=== PATIENT | female | born 1940 | race Caucasian/White ===

== ENCOUNTER 2021-05-26 03:06 | Outpatient (RCR) | payer MEDICARE, SELFPAY ==
[2021-05-26] MEDS: Normal Saline Flush 10 ML SYR IVP (10:17)
[2021-05-26 11:17] LABS: Abs Immature Grans 0.03 10^3/uL (0.0-0.06); Absolute Basophil Count 0.09 10^3/uL (0.0-0.2); Absolute Eosinophil Count 0.17 10^3/uL (0.0-0.7); Absolute Lymphocyte Count 2.17 10^3/uL (1.2-3.4); Absolute Monocyte Count 0.93 10^3/uL (0.1-0.8); Absolute Neutrophil Count 4.77 10^3/uL (1.2-6.7); Basophils % 1.1; Eosinophils % 2.1; HCT 43.6 % (36.0-46.0); HGB 13.9 g/dL (11.2-15.7); Immature Grans % 0.4; Lymphocytes % 26.6; MCH 31.2 pg (27.0-33.0); MCHC 31.9 % (32.0-36.0); MPV 9.9 fL (8.0-11.0); Monocytes % 11.4; Neutrophils % 58.4; Nucleated RBC 0 %; Platelet Count 341 10^3/uL (130-400); RBC 4.45 10^6/uL (3.93-5.22); RDW 12.7 % (11.7-14.6); RDW-SD 45.7 fL; WBC 8.16 10^3/uL (4.4-10.8)
[2021-05-26 11:39] LABS: ALT 35 U/L (14-59); AST 23 U/L (15-37); Albumin 3.3 g/dL (3.4-5.0); Alkaline Phosphatase 122 U/L (46-116); Anion Gap 8.8 mmol/L (3-11); BUN 13 mg/dL (7-18); Bilirubin, Total 0.4 mg/dL (0.2-1.0); CO2 27.2 mmol/L (21.0-32.0); CREATININE 0.9 mg/dL (0.55-1.02); Calcium 9.1 mg/dL (8.5-10.1); Chloride 103 mmol/L (98-107); Glucose 143 mg/dL (74-106); Sodium 139 mmol/L (136-145); Total Protein 7.6 g/dL (6.4-8.2)
[2021-05-26 17:30] LABS: CEA 3.1 ng/mL (See Note)
== END 2021-06-01 23:59 | disposition home or self-care (01) ==
LOC: INF 03:06
PROVIDERS: Visit Provider Internal Medicine Hematology & Oncology
DX: C18.9 Malignant neoplasm of colon, unspecified (principal); Z45.2 Encounter for adjustment and management of vascular access device
CPT/HCPCS: 36591; 80053; 82378; 85025

== ENCOUNTER 2021-06-26 02:53 | Outpatient (RCR) | payer MEDICARE, SELFPAY ==
[2021-06-12] MEDS: Normal Saline Flush 10 ML SYR IVP (08:12)
[2021-06-12 08:35] LABS: Abs Immature Grans 0.01 10^3/uL (0.0-0.06); Absolute Basophil Count 0.06 10^3/uL (0.0-0.2); Absolute Eosinophil Count 0.18 10^3/uL (0.0-0.7); Absolute Lymphocyte Count 1.22 10^3/uL (1.2-3.4); Absolute Monocyte Count 0.81 10^3/uL (0.1-0.8); Absolute Neutrophil Count 1.97 10^3/uL (1.2-6.7); Basophils % 1.4; Eosinophils % 4.2; HCT 40.8 % (36.0-46.0); HGB 13.1 g/dL (11.2-15.7); Immature Grans % 0.2; Lymphocytes % 28.7; MCH 30.7 pg (27.0-33.0); MCHC 32.1 % (32.0-36.0); MCV 95.6 fL (80-95); MPV 9.7 fL (8.0-11.0); Monocytes % 19.1; Neutrophils % 46.4; Nucleated RBC 0 %; Platelet Count 221 10^3/uL (130-400); RBC 4.27 10^6/uL (3.93-5.22); RDW 13.4 % (11.7-14.6); RDW-SD 46.2 fL; WBC 4.25 10^3/uL (4.4-10.8)
[2021-06-12 08:49] LABS: ALT 32 U/L (14-59); AST 28 U/L (15-37); Alkaline Phosphatase 94 U/L (46-116); Anion Gap 6.2 mmol/L (3-11); BUN 11 mg/dL (7-18); Bilirubin, Total 0.5 mg/dL (0.2-1.0); CO2 29.8 mmol/L (21.0-32.0); CREATININE 0.9 mg/dL (0.55-1.02); Calcium 9.1 mg/dL (8.5-10.1); Chloride 105 mmol/L (98-107); Glucose 109 mg/dL (74-106); Sodium 141 mmol/L (136-145)
[2021-06-12 18:24] LABS: CEA 3.8 ng/mL (See Note)
[2021-06-26] MEDS: Normal Saline Flush 10 ML SYR IVP (08:57)
[2021-06-26 09:01] LABS: Abs Immature Grans 0.01 10^3/uL (0.0-0.06); Absolute Basophil Count 0.03 10^3/uL (0.0-0.2); Absolute Eosinophil Count 0.12 10^3/uL (0.0-0.7); Absolute Lymphocyte Count 0.79 10^3/uL (1.2-3.4); Absolute Monocyte Count 0.61 10^3/uL (0.1-0.8); Absolute Neutrophil Count 2.27 10^3/uL (1.2-6.7); Basophils % 0.8; Eosinophils % 3.1; HCT 37.5 % (36.0-46.0); HGB 12.2 g/dL (11.2-15.7); Immature Grans % 0.3; Lymphocytes % 20.6; MCH 31.6 pg (27.0-33.0); MCHC 32.5 % (32.0-36.0); MCV 97.2 fL (80-95); MPV 9.1 fL (8.0-11.0); Monocytes % 15.9; Neutrophils % 59.3; Nucleated RBC 0 %; Platelet Count 119 10^3/uL (130-400); RBC 3.86 10^6/uL (3.93-5.22); RDW 14.4 % (11.7-14.6); RDW-SD 48.5 fL; WBC 3.83 10^3/uL (4.4-10.8)
[2021-06-26 09:27] LABS: ALT 40 U/L (14-59); AST 33 U/L (15-37); Albumin 2.8 g/dL (3.4-5.0); Alkaline Phosphatase 90 U/L (46-116); Anion Gap 6.5 mmol/L (3-11); BUN 17 mg/dL (7-18); Bilirubin, Total 0.4 mg/dL (0.2-1.0); CO2 26.5 mmol/L (21.0-32.0); CREATININE 0.8 mg/dL (0.55-1.02); Calcium 8.8 mg/dL (8.5-10.1); Chloride 110 mmol/L (98-107); Glucose 120 mg/dL (74-106); Potassium 3.5 mmol/L (3.5-5.1); Sodium 143 mmol/L (136-145); Total Protein 6.5 g/dL (6.4-8.2)
[2021-06-26 21:08] LABS: CEA 8.2 ng/mL (See Note)
== END 2021-07-02 23:59 | disposition home or self-care (01) ==
LOC: INF 02:53
PROVIDERS: Visit Provider Internal Medicine Hematology & Oncology
DX: C18.9 Malignant neoplasm of colon, unspecified (principal); Z45.2 Encounter for adjustment and management of vascular access device
CPT/HCPCS: 36591; 80053; 82378; 85025

== ENCOUNTER 2021-07-24 00:50 | Outpatient (RCR) | payer MEDICARE, SELFPAY ==
[2021-07-10] MEDS: Normal Saline Flush 10 ML SYR IVP (08:57)
[2021-07-10 09:09] LABS: Abs Immature Grans 0.01 10^3/uL (0.0-0.06); Absolute Basophil Count 0.03 10^3/uL (0.0-0.2); Absolute Eosinophil Count 0.13 10^3/uL (0.0-0.7); Absolute Lymphocyte Count 1.08 10^3/uL (1.2-3.4); Absolute Monocyte Count 0.54 10^3/uL (0.1-0.8); Eosinophils % 4.5; HCT 35.7 % (36.0-46.0); HGB 11.5 g/dL (11.2-15.7); Immature Grans % 0.3; Lymphocytes % 37.4; MCH 31.4 pg (27.0-33.0); MCHC 32.2 % (32.0-36.0); MCV 97.5 fL (80-95); MPV 9.2 fL (8.0-11.0); Monocytes % 18.7; Neutrophils % 38.1; Nucleated RBC 0 %; Platelet Count 106 10^3/uL (130-400); RBC 3.66 10^6/uL (3.93-5.22); RDW 15.7 % (11.7-14.6); RDW-SD 52.6 fL; WBC 2.89 10^3/uL (4.4-10.8)
[2021-07-10 09:24] LABS: ALT 36 U/L (14-59); AST 32 U/L (15-37); Albumin 2.9 g/dL (3.4-5.0); Alkaline Phosphatase 92 U/L (46-116); Anion Gap 4.4 mmol/L (3-11); BUN 12 mg/dL (7-18); Bilirubin, Total 0.5 mg/dL (0.2-1.0); CO2 28.6 mmol/L (21.0-32.0); CREATININE 0.8 mg/dL (0.55-1.02); Calcium 8.9 mg/dL (8.5-10.1); Chloride 108 mmol/L (98-107); Glucose 116 mg/dL (74-106); Potassium 3.7 mmol/L (3.5-5.1); Sodium 141 mmol/L (136-145); Total Protein 6.5 g/dL (6.4-8.2)
[2021-07-10 18:36] LABS: CEA 6.7 ng/mL (See Note)
[2021-07-16] MEDS: Normal Saline Flush 10 ML SYR IVP (09:50)
[2021-07-16 10:29] LABS: Abs Immature Grans 0.03 10^3/uL (0.0-0.06); Absolute Basophil Count 0.08 10^3/uL (0.0-0.2); Absolute Eosinophil Count 0.32 10^3/uL (0.0-0.7); Absolute Lymphocyte Count 1.61 10^3/uL (1.2-3.4); Absolute Monocyte Count 1.09 10^3/uL (0.1-0.8); Absolute Neutrophil Count 0.83 10^3/uL (1.2-6.7); Eosinophils % 8.1; HCT 38.8 % (36.0-46.0); HGB 12.4 g/dL (11.2-15.7); Immature Grans % 0.8; Lymphocytes % 40.7; MCH 31.6 pg (27.0-33.0); MCV 98.7 fL (80-95); MPV 9.6 fL (8.0-11.0); Monocytes % 27.5; Neutrophils % 20.9; Nucleated RBC 0 %; Platelet Count 286 10^3/uL (130-400); RBC 3.93 10^6/uL (3.93-5.22); RDW 16.6 % (11.7-14.6); RDW-SD 59.7 fL; WBC 3.96 10^3/uL (4.4-10.8)
[2021-07-16 10:46] LABS: ALT 30 U/L (14-59); AST 26 U/L (15-37); Alkaline Phosphatase 100 U/L (46-116); Anion Gap 6.1 mmol/L (3-11); BUN 13 mg/dL (7-18); Bilirubin, Total 0.4 mg/dL (0.2-1.0); CO2 29.9 mmol/L (21.0-32.0); CREATININE 0.8 mg/dL (0.55-1.02); Calcium 8.6 mg/dL (8.5-10.1); Chloride 106 mmol/L (98-107); Diff Comment Diff Reviewed; Glucose 96 mg/dL (74-106); Potassium 4.1 mmol/L (3.5-5.1); RBC Morphology Normal; Sodium 142 mmol/L (136-145); Total Protein 6.8 g/dL (6.4-8.2)
[2021-07-24] MEDS: Normal Saline Flush 10 ML SYR IVP (08:37)
[2021-07-24 08:44] LABS: Abs Immature Grans 0.02 10^3/uL (0.0-0.06); Absolute Basophil Count 0.12 10^3/uL (0.0-0.2); Absolute Lymphocyte Count 1.38 10^3/uL (1.2-3.4); Absolute Monocyte Count 0.78 10^3/uL (0.1-0.8); Absolute Neutrophil Count 2.83 10^3/uL (1.2-6.7); Basophils % 2.2; Eosinophils % 5.5; HCT 40.7 % (36.0-46.0); HGB 12.9 g/dL (11.2-15.7); Immature Grans % 0.4; Lymphocytes % 25.4; MCH 31.2 pg (27.0-33.0); MCHC 31.7 % (32.0-36.0); MCV 98.3 fL (80-95); MPV 9.8 fL (8.0-11.0); Monocytes % 14.4; Neutrophils % 52.1; Platelet Count 203 10^3/uL (130-400); RBC 4.14 10^6/uL (3.93-5.22); RDW 16.3 % (11.7-14.6); RDW-SD 58.6 fL; WBC 5.43 10^3/uL (4.4-10.8)
[2021-07-24 09:03] LABS: ALT 32 U/L (14-59); AST 29 U/L (15-37); Albumin 3.1 g/dL (3.4-5.0); Alkaline Phosphatase 101 U/L (46-116); Anion Gap 4.8 mmol/L (3-11); BUN 17 mg/dL (7-18); Bilirubin, Total 0.5 mg/dL (0.2-1.0); CO2 28.2 mmol/L (21.0-32.0); CREATININE 0.9 mg/dL (0.55-1.02); Chloride 107 mmol/L (98-107); Glucose 133 mg/dL (74-106); Potassium 3.9 mmol/L (3.5-5.1); Sodium 140 mmol/L (136-145)
[2021-07-24 18:14] LABS: CEA 4.2 ng/mL (See Note)
== END 2021-08-01 23:59 | disposition home or self-care (01) ==
LOC: INF 00:50
PROVIDERS: Visit Provider Internal Medicine Hematology & Oncology
DX: C18.9 Malignant neoplasm of colon, unspecified (principal); Z45.2 Encounter for adjustment and management of vascular access device
CPT/HCPCS: 36591; 80053; 82378; 85025

== ENCOUNTER 2021-08-28 01:14 | Outpatient (RCR) | payer MEDICARE, SELFPAY ==
[2021-08-07] MEDS: Normal Saline Flush 10 ML SYR IVP (10:32)
[2021-08-07 10:47] LABS: Abs Immature Grans 0.02 10^3/uL (0.0-0.06); Absolute Basophil Count 0.03 10^3/uL (0.0-0.2); Absolute Eosinophil Count 0.18 10^3/uL (0.0-0.7); Absolute Lymphocyte Count 1.28 10^3/uL (1.2-3.4); Absolute Monocyte Count 0.62 10^3/uL (0.1-0.8); Basophils % 0.7; Eosinophils % 4.4; HCT 37.7 % (36.0-46.0); Immature Grans % 0.5; MCH 31.2 pg (27.0-33.0); MCHC 31.8 % (32.0-36.0); MCV 98 fL (80-95); MPV 9.9 fL (8.0-11.0); Neutrophils % 48.4; Platelet Count 137 10^3/uL (130-400); RBC 3.85 10^6/uL (3.93-5.22); RDW 16.1 % (11.7-14.6); RDW-SD 57.1 fL; WBC 4.13 10^3/uL (4.4-10.8)
[2021-08-07 10:58] LABS: ALT 29 U/L (14-59); AST 28 U/L (15-37); Alkaline Phosphatase 104 U/L (46-116); Anion Gap 7.2 mmol/L (3-11); BUN 12 mg/dL (7-18); Bilirubin, Total 0.5 mg/dL (0.2-1.0); CO2 27.8 mmol/L (21.0-32.0); CREATININE 0.8 mg/dL (0.55-1.02); Calcium 8.6 mg/dL (8.5-10.1); Chloride 107 mmol/L (98-107); Glucose 105 mg/dL (74-106); Potassium 3.7 mmol/L (3.5-5.1); Sodium 142 mmol/L (136-145); Total Protein 6.7 g/dL (6.4-8.2)
[2021-08-07 18:43] LABS: CEA 5.1 ng/mL (See Note)
[2021-08-21] MEDS: Normal Saline Flush 10 ML SYR IVP (09:40)
[2021-08-21 09:42] LABS: Abs Immature Grans 0.01 10^3/uL (0.0-0.06); Absolute Basophil Count 0.04 10^3/uL (0.0-0.2); Absolute Eosinophil Count 0.09 10^3/uL (0.0-0.7); Absolute Lymphocyte Count 1.42 10^3/uL (1.2-3.4); Absolute Monocyte Count 0.79 10^3/uL (0.1-0.8); Absolute Neutrophil Count 1.16 10^3/uL (1.2-6.7); Basophils % 1.1; Eosinophils % 2.6; HCT 36.5 % (36.0-46.0); HGB 11.8 g/dL (11.2-15.7); Immature Grans % 0.3; Lymphocytes % 40.5; MCH 31.4 pg (27.0-33.0); MCHC 32.3 % (32.0-36.0); MCV 97 fL (80-95); MPV 9.9 fL (8.0-11.0); Monocytes % 22.5; Platelet Count 131 10^3/uL (130-400); RBC 3.76 10^6/uL (3.93-5.22); RDW 16.1 % (11.7-14.6); RDW-SD 56.9 fL; WBC 3.51 10^3/uL (4.4-10.8)
[2021-08-21 10:05] LABS: ALT 31 U/L (14-59); AST 30 U/L (15-37); Alkaline Phosphatase 102 U/L (46-116); Anion Gap 4.6 mmol/L (3-11); BUN 11 mg/dL (7-18); Bilirubin, Total 0.5 mg/dL (0.2-1.0); CO2 28.4 mmol/L (21.0-32.0); CREATININE 0.8 mg/dL (0.55-1.02); Calcium 8.9 mg/dL (8.5-10.1); Chloride 107 mmol/L (98-107); Glucose 96 mg/dL (74-106); Potassium 3.9 mmol/L (3.5-5.1); Sodium 140 mmol/L (136-145); Total Protein 6.9 g/dL (6.4-8.2)
[2021-08-21 19:34] LABS: CEA 4.3 ng/mL (See Note)
[2021-08-28] MEDS: Normal Saline Flush 10 ML SYR IVP (07:05)
[2021-08-28 07:12] LABS: HCT 37.3 % (36.0-46.0); HGB 11.9 g/dL (11.2-15.7); MCH 31.2 pg (27.0-33.0); MCHC 31.9 % (32.0-36.0); MCV 98 fL (80-95); MPV 9.7 fL (8.0-11.0); Platelet Count 247 10^3/uL (130-400); RBC 3.81 10^6/uL (3.93-5.22); RDW 16.6 % (11.7-14.6); RDW-SD 59.6 fL; WBC 3.57 10^3/uL (4.4-10.8)
[2021-08-28 07:27] LABS: ALT 26 U/L (14-59); AST 28 U/L (15-37); Alkaline Phosphatase 108 U/L (46-116); BUN 10 mg/dL (7-18); Bilirubin, Total 0.5 mg/dL (0.2-1.0); CREATININE 0.8 mg/dL (0.55-1.02); Calcium 8.8 mg/dL (8.5-10.1); Chloride 109 mmol/L (98-107); Glucose 93 mg/dL (74-106); Potassium 3.8 mmol/L (3.5-5.1); Sodium 144 mmol/L (136-145); Total Protein 6.7 g/dL (6.4-8.2)
[2021-08-28 07:31] LABS: Absolute Basophil Count 0.07 10^3/uL (0.0-0.2); Absolute Eosinophil Count 0.25 10^3/uL (0.0-0.7); Absolute Monocyte Count 0.68 10^3/uL (0.1-0.8); Absolute Neutrophil Count 1.04 10^3/uL (1.2-6.7); Atypical Lymphocytes % 2; Bands % 3; Diff Comment Manual Differential; Metamyelocytes % 1; RBC Morphology Normal
[2021-08-28 19:31] LABS: CEA 3.4 ng/mL (See Note)
== END 2021-09-01 23:59 | disposition home or self-care (01) ==
LOC: INF 01:14
PROVIDERS: Visit Provider Internal Medicine Hematology & Oncology
DX: C18.9 Malignant neoplasm of colon, unspecified (principal); Z45.2 Encounter for adjustment and management of vascular access device
CPT/HCPCS: 36591; 80053; 82378; 85025

== ENCOUNTER 2021-09-25 01:03 | Outpatient (RCR) | payer MEDICARE, SELFPAY ==
[2021-09-11] MEDS: Normal Saline Flush 10 ML SYR IVP (09:47)
[2021-09-11 09:50] LABS: Abs Immature Grans 0.01 10^3/uL (0.0-0.06); Absolute Basophil Count 0.03 10^3/uL (0.0-0.2); Absolute Eosinophil Count 0.17 10^3/uL (0.0-0.7); Absolute Lymphocyte Count 1.57 10^3/uL (1.2-3.4); Absolute Monocyte Count 0.92 10^3/uL (0.1-0.8); Absolute Neutrophil Count 2.52 10^3/uL (1.2-6.7); Basophils % 0.6; Eosinophils % 3.3; HCT 36.6 % (36.0-46.0); HGB 11.7 g/dL (11.2-15.7); Immature Grans % 0.2; Lymphocytes % 30.1; MCH 31.2 pg (27.0-33.0); MCV 98 fL (80-95); Monocytes % 17.6; Neutrophils % 48.2; Platelet Count 143 10^3/uL (130-400); RBC 3.75 10^6/uL (3.93-5.22); RDW 16.4 % (11.7-14.6); WBC 5.22 10^3/uL (4.4-10.8)
[2021-09-11 10:02] LABS: ALT 30 U/L (14-59); AST 24 U/L (15-37); Albumin 3.2 g/dL (3.4-5.0); Alkaline Phosphatase 104 U/L (46-116); Anion Gap 9.7 mmol/L (3-11); BUN 13 mg/dL (7-18); Bilirubin, Total 0.5 mg/dL (0.2-1.0); CO2 26.3 mmol/L (21.0-32.0); CREATININE 0.8 mg/dL (0.55-1.02); Calcium 8.5 mg/dL (8.5-10.1); Chloride 106 mmol/L (98-107); Glucose 101 mg/dL (74-106); Potassium 3.7 mmol/L (3.5-5.1); Sodium 142 mmol/L (136-145)
[2021-09-11 18:02] LABS: CEA 3.8 ng/mL (See Note)
[2021-09-25 09:04] LABS: Abs Immature Grans 0.02 10^3/uL (0.0-0.06); Absolute Basophil Count 0.05 10^3/uL (0.0-0.2); Absolute Eosinophil Count 0.11 10^3/uL (0.0-0.7); Absolute Monocyte Count 1.01 10^3/uL (0.1-0.8); Absolute Neutrophil Count 2.27 10^3/uL (1.2-6.7); Basophils % 1.1; Eosinophils % 2.4; HCT 35.9 % (36.0-46.0); HGB 11.4 g/dL (11.2-15.7); Immature Grans % 0.4; Lymphocytes % 25.8; MCH 31.5 pg (27.0-33.0); MCHC 31.8 % (32.0-36.0); MCV 99 fL (80-95); MPV 9.9 fL (8.0-11.0); Monocytes % 21.7; Neutrophils % 48.6; Platelet Count 135 10^3/uL (130-400); RBC 3.62 10^6/uL (3.93-5.22); RDW 16.1 % (11.7-14.6); RDW-SD 58.7 fL; WBC 4.66 10^3/uL (4.4-10.8)
[2021-09-25 09:21] LABS: ALT 26 U/L (14-59); AST 32 U/L (15-37); Albumin 2.8 g/dL (3.4-5.0); Alkaline Phosphatase 120 U/L (46-116); BUN 12 mg/dL (7-18); Bilirubin, Total 0.5 mg/dL (0.2-1.0); CREATININE 0.8 mg/dL (0.55-1.02); Calcium 8.7 mg/dL (8.5-10.1); Chloride 108 mmol/L (98-107); Glucose 106 mg/dL (74-106); Potassium 3.8 mmol/L (3.5-5.1); Sodium 140 mmol/L (136-145); Total Protein 6.8 g/dL (6.4-8.2)
[2021-09-25 22:08] LABS: CEA 4.3 ng/mL (See Note)
== END 2021-10-01 23:59 | disposition home or self-care (01) ==
LOC: INF 01:03
PROVIDERS: Visit Provider Internal Medicine Hematology & Oncology
DX: C18.9 Malignant neoplasm of colon, unspecified (principal); Z45.2 Encounter for adjustment and management of vascular access device
CPT/HCPCS: 36591; 80053; 82378; 85025

== ENCOUNTER 2021-10-23 01:39 | Outpatient (RCR) | payer MEDICARE, SELFPAY ==
[2021-10-09] MEDS: Normal Saline Flush 10 ML SYR IVP (08:20)
[2021-10-09 08:32] LABS: Abs Immature Grans 0.01 10^3/uL (0.0-0.06); Absolute Basophil Count 0.05 10^3/uL (0.0-0.2); Absolute Eosinophil Count 0.11 10^3/uL (0.0-0.7); Absolute Lymphocyte Count 1.16 10^3/uL (1.2-3.4); Absolute Monocyte Count 0.76 10^3/uL (0.1-0.8); Absolute Neutrophil Count 1.32 10^3/uL (1.2-6.7); Basophils % 1.5; Eosinophils % 3.2; HCT 36.1 % (36.0-46.0); HGB 11.5 g/dL (11.2-15.7); Immature Grans % 0.3; MCH 31.7 pg (27.0-33.0); MCHC 31.9 % (32.0-36.0); MCV 99 fL (80-95); MPV 9.9 fL (8.0-11.0); Monocytes % 22.3; Neutrophils % 38.7; Platelet Count 127 10^3/uL (130-400); RBC 3.63 10^6/uL (3.93-5.22); RDW 15.9 % (11.7-14.6); RDW-SD 57.8 fL; WBC 3.41 10^3/uL (4.4-10.8)
[2021-10-09 08:47] LABS: ALT 25 U/L (14-59); AST 28 U/L (15-37); Albumin 2.9 g/dL (3.4-5.0); Alkaline Phosphatase 106 U/L (46-116); Anion Gap 6.9 mmol/L (3-11); BUN 12 mg/dL (7-18); Bilirubin, Total 0.5 mg/dL (0.2-1.0); CO2 29.1 mmol/L (21.0-32.0); CREATININE 0.8 mg/dL (0.55-1.02); Calcium 8.8 mg/dL (8.5-10.1); Chloride 107 mmol/L (98-107); Glucose 98 mg/dL (74-106); Potassium 3.8 mmol/L (3.5-5.1); Sodium 143 mmol/L (136-145); Total Protein 6.6 g/dL (6.4-8.2)
[2021-10-23] MEDS: Normal Saline Flush 10 ML SYR IVP (10:50)
[2021-10-23 11:19] LABS: Abs Immature Grans 0.01 10^3/uL (0.0-0.06); Absolute Basophil Count 0.05 10^3/uL (0.0-0.2); Absolute Eosinophil Count 0.09 10^3/uL (0.0-0.7); Absolute Lymphocyte Count 1.41 10^3/uL (1.2-3.4); Absolute Monocyte Count 0.95 10^3/uL (0.1-0.8); Absolute Neutrophil Count 1.72 10^3/uL (1.2-6.7); Basophils % 1.2; Eosinophils % 2.1; HCT 35.7 % (36.0-46.0); HGB 11.7 g/dL (11.2-15.7); Immature Grans % 0.2; Lymphocytes % 33.3; MCHC 32.8 % (32.0-36.0); MCV 98 fL (80-95); MPV 9.9 fL (8.0-11.0); Monocytes % 22.5; Neutrophils % 40.7; Platelet Count 117 10^3/uL (130-400); RBC 3.66 10^6/uL (3.93-5.22); RDW 15.9 % (11.7-14.6); RDW-SD 56.3 fL; WBC 4.23 10^3/uL (4.4-10.8)
[2021-10-23 11:43] LABS: ALT 28 U/L (14-59); AST 29 U/L (15-37); Alkaline Phosphatase 99 U/L (46-116); Anion Gap 6.8 mmol/L (3-11); BUN 12 mg/dL (7-18); Bilirubin, Total 0.5 mg/dL (0.2-1.0); CO2 29.2 mmol/L (21.0-32.0); CREATININE 0.8 mg/dL (0.55-1.02); Calcium 9.1 mg/dL (8.5-10.1); Chloride 108 mmol/L (98-107); Glucose 94 mg/dL (74-106); Potassium 3.8 mmol/L (3.5-5.1); Sodium 144 mmol/L (136-145); Total Protein 6.8 g/dL (6.4-8.2)
[2021-10-23 22:42] LABS: CEA 4.4 ng/mL (See Note)
== END 2021-11-01 23:59 | disposition home or self-care (01) ==
LOC: INF 01:39
PROVIDERS: Visit Provider Internal Medicine Hematology & Oncology
DX: C18.9 Malignant neoplasm of colon, unspecified (principal); Z45.2 Encounter for adjustment and management of vascular access device
CPT/HCPCS: 36591; 80053; 82378; 85025

== ENCOUNTER 2021-11-20 00:49 | Outpatient (RCR) | payer MEDICARE, SELFPAY ==
--- OUTSIDE RECORDS SUMMARY | 2021-11-06 01:24 | XMS_ITS | Encounter Summary ---
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 Michael Romero MD [facility] Hem Onc Infusion [facility] [address] [facility] [place] [phone] Fax: Referral ID Status Reason Start Date Expiration Date Visits V isits Requested Authorized [id number] Pending 05/08/2021 05/08/2022 99 99 Review Encounter Details Date Type Department Care Team Description 05/28/2021 Infusion Hematology Oncology at [facility] colon cancer with [facility] metastasis to other site [address] [place] [address] [phone] Social History Tobacco Use Types Packs/Day Years Used Date Never Smoker Smokeless Tobacco: Never Used Sex Assigned at Date Recorded Not on file documented as of this encounter Last Filed Vital Signs Vital Sign Reading Time Taken Comments Blood Pressure 118/57 05/28/2021 11:35 AM EST Pulse 89 05/28/2021 11:35 AM EST Temperature 36.2 ??C (97.1 ??F) 05/28/2021 11:35 AM EST Respiratory Rate 20 05/28/2021 11:35 AM EST Oxygen Saturation 99% 05/28/2021 11:35 AM EST Inhaled Oxygen Concentration - - Weight 82.6 kg (182 lb 3.2 oz) 05/28/2021 11:35 AM EST Height 160 cm (5' 3) 05/28/2021 11:35 AM EST Body Mass Index 32.28 05/28/2021 11:35 AM EST documented in this encounter Progress Notes Virginia Leon RN - 05/28/2021 11:30 AM EST INFUSION THERAPY ADMINISTRATION NOTES TIME TREATMENT STARTED: 1130 TIME TREATMENT ENDED: 1210 DIAGNOSIS: colon cancer PROTOCOL:na CYCLE #: 1 day 3 REASON FOR VISIT: disconnect 5 fu SUBJECTIVE Joy Armstrong states she had no issues with her folfox treatment OBJECTIVE read disconnection instructions for 5FU pump. He then performed the steps with no issues. All questions were answered. REACTIONS (DESCRIPTION, TIME, INTERVENTION AND EFFECTIVENESS) none ASSESSMENT Joy Armstrong was awake, alert and he tolerated treatment well. PLAN Return to clinic june 12 for next folfox. is comfortable to disconnect her at home with hernext folfox treatment. 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 Malignant neoplasm of small intestine, u nspecified site documented in this encounter Administered Medications Inactive Administered Medications - up to 3 most recent administrations Medication Order MAR Action Action Date Dose Rate Site heparin (pf) (porcine) (100 Given 05/28/2021 12:05 PM EST 500 Un its units/mL) flush 5 mL syringe 500 Units 500 Units, Intravenous, ONCE PRN, Starting on Kinjal 05/28/21 at 1140, Until Kinjal 05/28/21 at 1509, Line Care, Refer to Intravenous (IV) Procedure: Accessing Implanted Vascular Access Devices (764) procedure and/or Intravenous (IV) Job Aid: Adult Flushing & Catheter Care (7713) job aid for additional information regarding guidelines and administration., Routine sodium chloride 0.9 % (flush) (BD PosiFlush Given 05/06 12:00 PM EST 20 mLs Normal Saline 0.9) flush 5-20 mL 5-20 mL, Intravenous, EVERY 1 MIN PRN, Starting on Kinjal 05/28/21 at 1140, Until Kinjal 05/28/21 at 1509, Line Care, Flush pertains to all indwelling lines. Flush per protocol found in the job aid using the link provided on this medication record. Refer to Intravenous (IV) Job Aid: Adult Flushing & Catheter Care (4178) job aid for additional information regarding guidelines and administration., Routine documented in this encounter Care Teams Supplemental Manager Relationship Specialty Start Date End Date None PCP - General 12/03/19 None documented as of this encounter
--- OUTSIDE RECORDS SUMMARY | 2021-11-06 01:24 | XMS_ITS | Encounter Summary ---
:1940 [place] [address] Care Team Providers Name Role Phone None Primary Care Provider Unavailable Encounter Details Date Type Department Care Team Description 06/28/2021 Telephone Hematology and Oncology at Nicolasa Goodson [facility] [place] [address] HEMATOLOGY/ONCOLOGY [phone] [place], [place] [address] (Wo rk) Social History Tobacco Use Types Packs/Day Years Used Date Never Smoker Smokeless Tobacco: Never Used Sex Assigned at Date Recorded Not on file documented as of this encounter Miscellaneous Notes Telephone Encounter - Nicolasa Goodson MD - 06/28/2021 12:10 PM EDT Reason for call: Questions about flush the port Caller: HPI: Joy Armstrong is a 72-year-old female with a 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 Romero. His states that her has a bump and after the infusion is completed they wonder if the port needs to be flushed. According with the instruction that he read for me during the call, he needs to flush the port. They said they have done this before and they feel comfortable doing this. The signal during the call was poor at times. All questions/concerns were addressed. Patient verbalized understanding and will call for any more questions. This note will be routed to primary oncology/hematology team. Nicolasa Quintana M.D. Hematology/Oncology Fellow [facility] Pager # [phone] 06/28/21, 12:10 PM documented in this encounter Plan of Treatment Upcoming Encounters Date Type Specialty Care Team Description 11/06/2021 Office Visit Hematology and Oncology Michael Romero MD [facility] DR ONCOLOGY [place], [place] [address] (Wo rk) 11/06/2021 Infusion Hematology and Oncology documented as of this encounter Visit Diagnoses Not on filedocumented in this encounter Care Teams Self Sealing Fuel Tank Builder Relationship Specialty Start Date End Date None PCP - General 12/03/19 None documented as of this encounter
--- OUTSIDE RECORDS SUMMARY | 2021-11-06 01:24 | XMS_ITS | Encounter Summary ---
:1940 Author Organization [facility] [place] [address] Care Team Providers Name Role Phone None Primary Care Provider Unavailable Reason for Visit Reason Comments IV Access Port flush Encounter Details Date Type Department Care Team Description 08/21/2021 Infusion Hematology Oncology at [facility] colon cancer with [facility] metastasis to other site [address] [place] [address] [phone] Social History Tobacco Use Types Packs/Day Years Used Date Never Smoker Smokeless Tobacco: Never Used Sex Assigned at Date Recorded Not on file documented as of this encounter Progress Notes Diann Baker RN - 08/21/2021 11:00 AM EDT INFUSION THERAPY ADMINISTRATION NOTES DIAGNOSIS: colorectal REASON FOR VISIT: MEDIPORT FLUSH ONLY due to neutropenia IV ACCESS: Mediport, accessed at [facility] for port draw GAUGE: 19G BLOOD RETURN: yes ANY S/S OF INFECTION/EXTRAVASATIONS: no signs of IV complications observed IV FLUSHED WITH: 20cc NS and 500 units Heparin IV DISCONTINUED: yes ASSESSMENT: Patient tolerated treatment well. PLAN: Return to clinic per routine. 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
--- OUTSIDE RECORDS SUMMARY | 2021-11-06 01:24 | XMS_ITS | Encounter Summary ---
:1940 Author Organization [facility] [place] [address] Care Team Providers Name Role Phone None Primary Care Provider Unavailable Reason for Visit Reason Comments Chemotherapy Cycle 6 folfox Treatment/Therapy Plan Authorization (Routine) - Pending Review Specialty Diagnoses / Procedures Referred By Contact Refer red To Contact Diagnoses Primary colon cancer with metastasis to other site Michael Romero MD [facility] Hem Onc Infusion [address] [place] [phone] Fax: Referral ID Status Reason Start Date Expiration Date Visits V isits Requested Authorized [id number] Pending 05/08/2021 05/08/2022 99 99 Review Encounter Details Date Type Department Care Team Description 08/28/2021 Infusion Hematology Oncology at [facility] colon cancer with [facility] metastasis to other site [address] [place] [phone] Social History Tobacco Use Types Packs/Day Years Used Date Never Smoker Smokeless Tobacco: Never Used Sex Assigned at Date Recorded Not on file documented as of this encounter Last Filed Vital Signs Vital Sign Reading Time Taken Comments Blood Pressure 115/61 08/28/2021 7:58 AM EDT Pulse 79 08/28/2021 7:58 AM EDT Temperature 36.5 ??C (97.7 ??F) 08/28/2021 7:58 AM EDT Respiratory Rate 16 08/28/2021 7:58 AM EDT Oxygen Saturation 97% 08/28/2021 7:58 AM EDT Inhaled Oxygen Concentration - - Weight 82.6 kg (182 lb) 08/28/2021 7:58 AM EDT Height 160 cm (5' 2.99) 08/28/2021 7:58 AM EDT Body Mass Index 32.25 08/28/2021 7:58 AM EDT documented in this encounter Progress Notes Virginia Leon RN - 08/28/2021 8:00 AM EDT INFUSION THERAPY ADMINISTRATION NOTES TIME TREATMENT STARTED: 749 TIME TREATMENT ENDED: 1104 DIAGNOSIS: colon cancer with mets PROTOCOL:na CYCLE #: 6 REASON FOR VISIT: folfox (no 5fu pump) SUBJECTIVE Joy Armstrong offers no complaints. OBJECTIVE LAB DATA: wbc 3.57, ANC 1.04, h/h 11.9/37.3, plt [address] Romero parameters for hold lowered and dose reduced. Pre administration: Chemotherapy orders independently verified for drug name, route, and dosage per patient's height, weight and BSA by Marion Leon RN and Arlet Santillan pharmacist. Cadd 5 fu pump checked 15 minutes after starting with Tay Vallecillo RN 0.8ccs went in. Pt's will disconnect at home Tuesday around 830 am. Disconnect kit given. REACTIONS (DESCRIPTION, TIME, INTERVENTION AND EFFECTIVENESS) none ASSESSMENT Joy Armstrong was awake, alert and he tolerated treatment well. PLAN Return to clinic in 2 weeks. documented in this encounter Plan of Treatment Upcoming Encounters Date Type Specialty Care Team Description 11/06/2021 Office Visit Hematology and Oncology Michael Romero MD [facility] DR ONCOLOGY [place], [place] [address] (Wo rk) 11/06/2021 Infusion Hematology [...] MAR Action Action Date Dose Rate Site dexamethasone (Decadron) tablet 10 Given 08/28/2021 8:35 AM EDT 10 mg mg 10 mg, Oral, ONCE, 1 dose, On Tue08/28/21 at 0830, Administer prior to chemotherapy, Routine fluorouraciL (AdruciL) in sodium Given 08/28/2021 10:38 AM EDT 2 ,292 mg 3 mL/hr chloride 0.9% 138 mL infusion (46 Hour - For Home Use) 2,292 mg 2,292 mg (1,200 mg/m2/dose ? 1.91 m2 Treatment Plan BSA from Recorded weight), Intravenous, ONCE, 1 dose, On Tue08/28/21 at 1100, Administer over 46 Hours, Warning Vesicant/Irritant Medication To be infused via an ambulatory infusion CADD Legacy Plus pump continuously IV at 3 mL/hr for 46 hours. Pump contains a 46 hour supply and provides 1,200 mg/m2 over 46 hours. leucovorin 350 mg in dextrose 5% 85 New Bag 08/28/2021 8:58 AM EDT 350 mg 60 mL/hr mL infusion 350 mg, Intravenous, ONCE, 1 dose, On Tue08/28/21 at 0930, Administer over 85 Minutes, May Y-site with OXALIplatin Do not administer at a rate faster than 160 milligrams/minute. OXALIplatin (Eloxatin) 100 mg in New Bag 08/28/2021 8:58 AM ED T 100 mg 190.6 mL/hr dextrose 5% 270 mL infusion 100 mg, Intravenous, ONCE, 1 dose, On Tue08/28/21 at 0930, Administer over 85 Minutes, Dose Ordered = 105 mg (55 mg/m2). Pharmacist rounded dose per procedure. Compatible with dextrose-containing solution only. Warning Vesicant/Irritant Medication palonosetron (Aloxi) (0.05 mg/mL) injection Given 08/03 8:36 AM EDT 0.25 mg 0.25 mg 0.25 mg, Intravenous, ONCE, 1 dose, On Tue08/28/21 at 0830, Administer over 30 seconds. Administer prior to chemotherapy, Routine documented in this encounter Care Teams Respiratory Therapy Assistant Relationship Specialty Start Date End Date None PCP - General 12/03/19 None documented as of this encounter
--- OUTSIDE RECORDS SUMMARY | 2021-11-06 01:24 | XMS_ITS | Encounter Summary ---
:1940 [place] [address] Care Team Providers Name Role Phone None Primary Care Provider Unavailable Encounter Details Date Type Department Care Team Description 05/05/2021 Telephone Hematology and Oncology at Pricila Iverson DO [facility] [employer] [employer] HEMATOLOGY/[place] [address] [place] [address] [phone] (Wo rk) Social History Tobacco Use Types Packs/Day Years Used Date Never Smoker Smokeless Tobacco: Never Used Sex Assigned at Date Recorded Not on file documented as of this encounter Miscellaneous Notes Telephone Encounter - Pricila Gill DO - 05/05/2021 6:59 PM EST Patient ID: [id number] Armstrong : 1940 Call from: Dr. Debbie Méndez, [facility] radiology. 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 Romero. The radiologist called today to report the finding of a CT scan showing acute cholecystitis and a very inflamed gallbladder wall. I called diarrhea and spoke with her she reports that she has had some soreness in the right upper quadrant but that she does not feel any tonight. She reports that in the past she felt that she had to undo her belt buckle due to the soreness.However this is not an issue today. She denies any fever or chills. I asked her to palpate her rightupper quadrant and she denied any pain to palpation. She had no anorexia and has been eating well over the past few days with no pain following eating. I told her that this is all reassuring but given the radiologic finding I did ask her to present to the emergency department tonight. I explained that acute cholecystitis can be very dangerous and may need operative intervention tonight. Joy understood this but declined presentation tonight and saidthat she would call the office of Dr. Jean-Baptiste tomorrow to make an appt. I counseled Joy on symptoms to watch out for such as abdominal pain, nausea, vomiting, diarrhea or constipation, black or bloody stool pain that is worsening after eating. She will call back if any of the symptoms develop overnight. Pricila Gill DO Fellow, Hematology and Medical Oncology [facility] Pager: [phone], 05/05/21, 7:02 PM CC: Dr. Romero. documented in this encounter Plan of Treatment Upcoming Encounters Date Type Specialty Care Team Description 11/06/2021 Office Visit Hematology and Oncology Michael Romero MD [facility] DR ONCOLOGY [place], [place] [address] (Wo rk) 11/06/2021 Infusion Hematology and Oncology documented as of this encounter Visit Diagnoses Not on filedocumented in this encounter Care Teams Heating And Ventilating Tender Relationship Specialty Start Date End Date None PCP - General 12/03/19 None documented as of this encounter
--- OUTSIDE RECORDS SUMMARY | 2021-11-06 01:24 | XMS_ITS | Encounter Summary ---
:1940 Author Organization [facility] Address [place] [id number] Care Team Providers Name Role Phone None Primary Care Provider Unavailable Reason for Visit Reason Comments IV Access Chemo held - Port Flush and De-Access Encounter Details Date Type Department Care Team Description 07/16/2021 Infusion Hematology Oncology at [facility] colon cancer with [facility] metastasis to other site [address] [place] [address] [phone] Social History Tobacco Use Types Packs/Day Years Used Date Never Smoker Smokeless Tobacco: Never Used Sex Assigned at Date Recorded Not on file documented as of this encounter Last Filed Vital Signs Vital Sign Reading Time Taken Comments Blood Pressure 142/70 07/16/2021 10:25 AM EDT Pulse 74 07/16/2021 10:25 AM EDT Temperature 36.3 ??C (97.3 ??F) 07/16/2021 10:25 AM EDT Respiratory Rate 18 07/16/2021 10:25 AM EDT Oxygen Saturation 97% 07/16/2021 10:25 AM EDT Inhaled Oxygen Concentration - - Weight 84.6 kg (186 lb 6.4 oz) 07/16/2021 10:25 AM EDT Height 160 cm (5' 2.99) 07/16/2021 10:25 AM EDT Body Mass Index 33.03 07/16/2021 10:25 AM EDT documented in this encounter Progress Notes Rae Vallecillo RN - 07/16/2021 11:30 AM EDT INFUSION THERAPY ADMINISTRATION NOTES DIAGNOSIS: Colon CA REASON FOR VISIT: Port Flush & De-Access (Chemo held) SUBJECTIVE Mrs. Armstrong is here for FOLFOX chemotherapy. She had labs prior to her appt. Unfortunately, she is neutropenic and does not meet parameters for infusion today. Dr. Romero notified and would like to see patient in one week, on 07/24 with labs prior. Will plan for FOLFOX that day also. Joy reports that she is tired. She denies any other symptoms or concerns. Denies fevers or other signs of infection. OBJECTIVE LAB DATA: Labs drawn today at [facility]. Wbc 3.96, hgb 12.4, plts 286k, anc 0.83 IV ACCESS: Mediport - flushed per protocol and de-accessed. PLAN Return to clinic in one week to see Dr. Romero and consideration of FOLFOX. Patient was reminded to wash hands frequently and monitor for fevers and other s/s of infection. 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
--- OUTSIDE RECORDS SUMMARY | 2021-11-06 01:24 | XMS_ITS | Encounter Summary ---
:1940 Author Organization [facility] [place] [address] Care Team Providers Name Role Phone None Primary Care Provider Unavailable Encounter Details Date Type Department Care Team Description 07/16/2021 Notes Only Hematology/Oncology at Claudia Gomes MSW [facility] OFFICE OF CARE [address] [place] [phone] Social History Tobacco Use Types Packs/Day Years Used Date Never Smoker Smokeless Tobacco: Never Used Sex Assigned at Date Recorded Not on file documented as of this encounter Progress Notes Claudia Gomes MSW - 07/16/2021 11:02 AM EDT Follow up with pt during her infusion visit today. Pt indicated she is managing day to day at home with the support and assistance of her . Pt requesting assistance with the cost of travel. Assisted pt in May with a gas cards and she reports the SN assisted her with $50 in gas cards back then too. Today assisted pt with 1/$25 gas card. Informed her if she had ongoing needs for assistance with travel costs that she can applied to a different fund for additional help. Pt indicated she is coming in about 2 times a month and expects another couple of months of this travel. Pt indicated this help was enough. Encourage her to let ADMISSIONS EVALUATOR or herclinic nurse know next visit and we can explore other resources. Reminded pt of ADMISSIONS EVALUATOR availability and contact information. Will continue to follow. Supportive Counseling Food insecurity resources Transportation resources documented in this encounter Plan of Treatment Upcoming Encounters Date Type Specialty Care Team Description 11/06/2021 Office Visit Hematology and Oncology Michael Romero MD [facility] ONCOLOGY [place], [place] [address] (Wo rk) 11/06/2021 Infusion Hematology and Oncology documented as of this encounter Visit Diagnoses Not on filedocumented in this encounter Care Teams Jig Borer Relationship Specialty Start Date End Date None PCP - General 12/03/19 None documented as of this encounter
--- OUTSIDE RECORDS SUMMARY | 2021-11-06 01:24 | XMS_ITS | Encounter Summary ---
:1940 Author Organization [facility] [address] Care Team Providers Name Role Phone None Primary Care Provider Unavailable Encounter Details Date Type Department Care Team Description 09/11/2021 Office Visit Hematology/Oncology Viktoriya Álvarez colon cancer at [facility] B, BOTTLING EQUIPMENT SALES REPRESENTATIVE with metastasis to [address] [place] [address] [place] [address] HEMATOLOGY/ONCOLOGY [phone] DEPT. [place], [place] [address] (Wo rk) Social History Tobacco Use Types Packs/Day Years Used Date Never Smoker Smokeless Tobacco: Never Used Sex Assigned at Date Recorded Not on file documented as of this encounter Last Filed Vital Signs Vital Sign Reading Time Taken Comments Blood Pressure 117/69 09/11/2021 10:22 AM EDT Pulse 93 09/11/2021 10:22 AM EDT Temperature 35.6 ??C (96.1 ??F) 09/11/2021 10:22 AM EDT Respiratory Rate 18 09/11/2021 10:22 AM EDT Oxygen Saturation 97% 09/11/2021 10:22 AM EDT Inhaled Oxygen Concentration - - Weight 82.9 kg (182 lb 12.8 oz) 09/11/2021 10:22 AM EDT Height 160 cm (5' 2.99) 09/11/2021 10:22 AM EDT Body Mass Index 32.39 09/11/2021 10:22 AM EDT documented in this encounter Progress Notes Viktoriya Álvarez, BOTTLING EQUIPMENT SALES REPRESENTATIVE - 09/11/2021 10:30 AM EDT Subjective Patient ID: Joy Armstrong is a 81 y.o. female. Patient Active Problem List Diagnosis Code ??? 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 became very weak and lost her balance while shopping with her . When she had underwent evaluation, she was found to have iron deficiency anemia. ?? 10/24/19 - Colonoscopy Path - Final Diagnosis A. COLON, SIGMOID,MASS, BIOPSY: - Invasive adenocarcinoma, moderately differentiated, colorectal primary - See comment. B. COLON, SIGMOID, POLYP, BIOPSY: - Hyperplastic polyp RESULTS OF IMMUNOHISTOCHEMICAL STAINING: Retained expression of MLH1, PMS2, MSH2 and MSH6 ?? B. CT c/a/p 10/30/19 Chest - Impression: Mild fibrotic changes in the lungs. No masses or nodules. Questionable mediastinal adenopathy. There is a lenticular subcarinal with short axis of 1.3 cm. I cannot exclude this being metastatic . PETCT may be he;pful for further evaluation. Abd/pelvis - Impression: Extensive abnormal right lower quadrant mass as descried above. I believe the epicenter of the massis within the cecum. There is extension of abnormal soft tissue inferiorly to the right dome of the bladder with evidence of fistula with air in the bladder. Soft tissue is indistinguishable from anterior aspect of uterine fundus. There is contiguity with sigmoid with an area of sigmoid wal lthckeningwithout fat plane between the mass extending from the cecum and area of wall thickening in the sigmoid. The appearance may represent a primary cecal carcinoma with diffuse pelvic extension. Also possible although less likely would be two synchronous colon primaries. Cystic mass in the pelvis gain noted suspicious for right ovarian neoplasm. ?? C. 12/05/19 - Exploratory laparotomy, drainage of pelvic abscess, low anterior resection with anastomosis, right hemicolectomy, partial omentectomy, resection of tumor invasion of right lower quadrant abdominal wall, diverting loop ileostomy, rigid proctosigmoidoscopy, bladder resection, JOSE ROBERTO/BSO Findings: Locally invasive tumor involving terminal illeum, cecum, right lower quadrant abdominal wall, bladder, right tube and ovary complex as well as sigmoid colon. Path - Synoptic report Tumor site: Cannot be determined with certainty; however a primary tumor site in the terminal ileumis favored, see comment. Tumor size: 10.4 x 2.3 x 1.9 cm Macroscopic tumor perforation: Not identified Histologic type: Adenocarcinoma Histologic grade: Moderately differentiated, G2 Microscopic tumor extension: The carcinoma extends through the full thickness of the bowel wall into a separate segment of intestine and is also identified extending through the fill thickness of the bladder into the bladder mucosa in the separately submitted partial cystectomy specimen. Margins: Proximal and distal intestinal margins: Uninvolved by adenocarcinoma. Adenocarcinoma extends to 3.6cm of the closest unoriented intestinal margin. Radial or mesenteric margin: Uninvolved by adenocarcinoma. Carcinoma extends to 6.1 cm of the closest mesenteric margin. Partial cystectomy margins: Margins cannot be determined with certainty to lack of orientation Treatment effect: No known presurgical therapy Lymphovascular invasion: Focally present Perineural invasion: Not identified Tumor deposits: Not identified Regional lymph nodes: Number of regional lymph nodes involved: 0 Number of lymph nodes examined: 15 Pathologic staging: pT4b, pN0, pMx Comment: it is difficult to identify the site of origin of the tumor with certainty due to the large tumor size obscuring intestinal landmarks and lack of orientation. Microscopically, adenocarcinoma is seen involving the mucosa of the small intestine and the bowel wall of an attached segment of large intestine. The intestinal tissue segment with the small intestine involvement shows large intestineat one of the resection margins; therefore this is presumed to represent right colon and the tumor is felt to be most likely arising in the terminal ileum. No mucosal involvement of the large intestineis identified in any of the sections. ?? D. 05/2020 - began adjuvant chemotherapy with capecitabine, received 6 cycles. She had diarrhea and nausea on the capecitabine ?? E. PET scan 10/25/20 - Impression: No definite locally recurrent or metastatic disease however I would recommend follow up MRI with contrast of the right lower quadrant abdominal wall to determine if there is a lesion requiring biopsy. ?? MRI pelvis 10/31/20 - Impression: Right lower quadrant abdominal wall mass, suspicious for malignancy, corresponding to finding on PET-CT ?? F. 12/24/20 - US guided biopsy Path - Final Diagnosis A. RECTUS ABDOMINUS MUSCLE, RIGHT, ULTRASOUND-GUIDED FINE-NEEDLE ASPIRATION: - Adenocarcinoma. See comment. Diagnosis Comment The aspirate smears are cellular and show crowded sheets of malignant glandular cells with nuclear crowding and nuclear membrane irregularity. Although the SATB2 stain would be expected to be positive in colo-rectal carcinomas, a small percent of cases have been reported to be negative. Clinical and radiographic correlation is hence essential. Dr. David Roth has reviewed this case in consultationand concurs with the diagnosis. Immunoperoxidase stains were performed on this case to further characterize the lesion. ?? G. 02/18/21: Diagnostic laparoscopy, laparoscopic partial omentectomy Findings: Dense intra-abdominal adhesions to the anterior abdominal midline where the surgical scaris. There were no obvious metastatic lesions in the right hemiabdomen. The liver was free of any metastatic lesions visually. The left hemiabdomen was also free of any obvious peritoneal disease. A concerning lesion visible in the omentum was resected and proven on frozen to be malignant. The en bloc resection of the abdominal wall that had been planned was this aborted considering she has intraperitoneal disease aside from the soft tissue malignancy. Peritoneal carcinomatosis index (PCI): at least a couple of studs are visible in the midline omentum (epigastrium). The small bowel was unable to be run because of significant intra abdominal adhesions Path ([facility] review) - Omentum, mass, excision: - Metastatic adenocarcinoma, consistent with patient's known colorectal primary. (see note) Note: Outside immunostaining for CDX2 is positive, supporting the diagnosis.thought the visible small bowel as well as visualized colon appear to have any disease on it (sic). The 4 major quadrants donot have any visibile peritoneal disease. Liver is free of disease. Diaphragm appears free of disease bilaterally. Unable to adequately assess/visualize the pelvis. No ascites visualized. Though somewhat limited, overall PCI=2. NGS - BRAF V600E mutation ?? H. CT c/a/p 05/05/21 - Chest - Impression: 1. New 7 mm subpleural nodule in the left lower lobe 2. Very large esophageal hiatal hernia Abd/pelvis - Impression: 1. Findings consistent with acute cholecystitis. Ultrasound recommended 2. New areas of nodularity in the intraperitoneal space and along the surgical scar is the right lower quadrant and upper vaginal cuff, suspicious for metastases. 3. Large esophageal hiatal 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 ?? I. 05/26/21 - Began therapy with Folfox, s/p [address] c/a/p 07/22/21 Chest - Impression: 1. Stable 7 mm subpleural left lower lobe nodule since most recent study. Given known malignancy, Fleischner Society follow up recommendations for incidental nodules are not indicated. Follow up per the patient's medical condition. 2. Large hiatal hernia 3. Reference CT scan of the abdomen and pelvis for intra-abdominal findings. Abd/pelvis - Impression: 1. Minimal interval decrease in size of metastatic right lower quadrant mesenteric nodule, nodular enhancing tissue at the vaginal cuff extending towards the adjacent sigmoid colon ,and right lower quadrant abdominal wall mass. Reference details and measurements above. 2. Cholelithiasis. Interval resolution of gallbladder edema 3. Reference CT scan of the chest for thoracic findings ?? HPI Joy returns in f/u of Stage IV adenocarcinoma of the ileum. Please see detailed history above.She is here for toxicity check and consideration of C7 palliative FOLFOX. She has been dose reduced and 5FU bolus dropped for neutropenia. She is feeling generally well. Chief complaint is of fatigue. Review of Systems Constitutional: Positive for fatigue. Negative for chills and fever. More fatigued, but able to be independent in ADL's, my is good about helping HENT: Positive for mouth sores (gargle with salt water, which helped, none currently). Respiratory: Negative. Cardiovascular: Negative. Gastrointestinal: Negative. Genitourinary: Negative. Musculoskeletal: Negative. Skin: Negative. Neurological: Positive for dizziness (occasional, right after I get up). Negative for numbness andheadaches. Cold dysesthesia Psychiatric/Behavioral: Negative. Objective Physical Exam Vitals reviewed. Constitutional: Appearance: Normal appearance. She is not ill-appearing. HENT: Head: Normocephalic. Pulmonary: Effort: Pulmonary effort is normal. No respiratory distress. Musculoskeletal: Right lower leg: No edema. Left lower leg: No edema. Neurological: Mental Status: She is alert and oriented to person, place, and time. Psychiatric: Mood and Affect: Mood normal. Behavior: Behavior normal. Thought Content: Thought content normal. BP 117/69 (Patient Position: Sitting) Pulse 93 Temp 35.6 ??C (96.1 ??F) (Temporal) Resp 18 Ht 160 cm (5' 2.99) Wt 82.9 kg (182 lb 12.8 oz) SpO2 97% BMI 32.39 kg/m?? Wt Readings from Last 3 Encounters: 09/11/21 82.9 kg (182 lb 12.8 oz) 08/28/21 82.6 kg (182 lb) 08/21/21 82.3 kg (181 lb 6.4 oz) 09/11/21 WBC 5.22 Hgb 11.7 Plt 143 ANC 2.52 Albumin 3.2 CMP otherwise wnl Assessment and Plan Joy Armstrong is a 81 y.o. 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 Presented in 10/2019, found to have severe anemia. Colonoscopy - mass in sigmoid colon, bx of which showed adenocarcinoma. IHC for MMR proteins - intact staining. By imaging, this was a locally advancedcancer with primary site in the cecum extending to involve the sigmoid colon, bladder and uterus andthere was a cystic mass in the pelvis. ?? She was seen at [facility] and underwent resection on 12/05/2019 - path report above. 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 15 LNs seen, all negative, N0. Margins of resection - negative (cystectomy margin could not be determined). ?? She received post-operative chemotherapy with capecitabine under the care of Dr. Cherry. She began therapy in 05/2020 and received 6 cycles, complicated by nausea and diarrhea. ?? In 12/2020 she underwent bx of a rectus abdominis muscle which showed adenocarcinoma. ?? A diagnostic laparoscopy was done by Dr. Jean-Baptiste on 02/18/21 with plans for en bloc resection of theabdominal wall recurrence. However, at the time of the procedure, limited omental disease was seen and the resection was aborted. Partial omentectomy was performed and the pathology from this showed metastatic adenocarcinoma consistent with a colorectal primary. ?? We met on 04/17/21 and reviewed the situation and treatment options. We discussed that this represents recurrent, metastatic disease. Although apparently a limited recurrence with an abdominal wall massand limited omental disease, given the nature of the recurrence, this does appear to be amenable to curative intervention. Cytoreductive surgery and HIPEC has been discussed but the utility of that in this type of cancer is limited and I think would be a very difficult procedure for her to go through. ?? Dr Romero discussed the schedule and potential side effects of Folfox therapy. With this regimen, fluorouracil, leucovorin and oxaliplatin are given on??day??1??followed by a 46-48 hour infusion of fluorouracil with cycles repeated every two??weeks??assuming tolerance. ??Due to the infusional component of therapy, a mediport is needed. He reviewed potential side effects of therapy, including nausea and vomiting, stomatitis, diarrhea, dehydration, lack of appetite, taste change, myelosuppression withassociated risks of bleeding, infection and dose delays, peripheral neuropathy which may be exacerbated by cold exposure but which may be cumulative and permanent even in the absence of cold, laryngealdysesthesia, fatigue, angina/[place], hypersensitivity reactions and others.?She??was given informational handouts regarding these medications. ?? Joy is willing to consider chemotherapy. Before making a final decision on the approach to treatment, we will get a restaging CT scan done. Depending on the findings and how she does with therapy, there may be a role for local therapies such as surgery or radiation in the future. ?? A restaging CT scan was done on 05/05/21 - there was a new pleural based nodule on the left and new areas of nodularity in the intraperitoneal space and along the surgical scar in the right lower quadrant and upper vaginal cuff, suspicious for metastases. ?? On 05/26/21 she began therapy with Folfox, s/p 6 cycles. ?? A restaging CT was done on 07/22/21 and is stable or perhaps slightly Improved. ?? She is tolerating treatment pretty well, but has had dose delays due to myelosuppression. She is clinically stable and counts meet treatment parameters. We will plan to continue the current therapy butwill omit the bolus 5FU and the oxaliplatin and CI 5FU has been reduced. ?? NGS was performed on the omental biopsy - BRAF V600E mutation. Viktoriya Álvarez DNP, APRN, AGACNP-BC, AOCNP, ACHPN Division of Hematology Oncology-Gastrointestinal [employer] Operations Duty ManagerField Court Researcherweight checker [facility] documented in this encounter Plan of Treatment Upcoming Encounters Date Type Specialty Care Team Description 11/06/2021 Office Visit Hematology and Oncology Michael Romero MD [facility] ONCOLOGY [place], [place] [address] (Wo rk) 11/06/2021 Infusion Hematology and Oncology documented as of this encounter Visit Diagnoses Diagnosis Primary colon cancer with metastasis to other site Stage IV adenocarcinoma of small bowel Malignant neoplasm of small intestine, u nspecified site documented in this encounter Care Teams Application Development Specialist Relationship Specialty Start Date End Date None PCP - General 12/03/19 None documented as of this encounter
--- OUTSIDE RECORDS SUMMARY | 2021-11-06 01:24 | XMS_ITS | Encounter Summary ---
:1940 Author Organization [facility] [place] [address] Care Team Providers Name Role Phone None Primary Care Provider Unavailable Reason for Visit Reason Comments Chemotherapy FOLFOX (Modified - no bolus) Treatment/Therapy Plan Authorization (Routine) - Pending Review Specialty Diagnoses / Procedures Referred By Contact Refer red To Contact Diagnoses Primary colon cancer with metastasis to other site Michael Romero MD [facility] Hem Onc Infusion [address] ONCOLOGY [place], [place] [phone] Fax: Referral ID Status Reason Start Date Expiration Date Visits V isits Requested Authorized [id number] Pending 05/08/2021 05/08/2022 99 99 Review Encounter Details Date Type Department Care Team Description 09/11/2021 Infusion Hematology Oncology at [facility] colon cancer with [facility] metastasis to other site [address] [place] [phone] Social History Tobacco Use Types Packs/Day Years Used Date Never Smoker Smokeless Tobacco: Never Used Sex Assigned at Date Recorded Not on file documented as of this encounter Progress Notes Rae Vallecillo RN - 09/11/2021 11:00 AM EDT INFUSION THERAPY ADMINISTRATION NOTES DIAGNOSIS: Colon CA CYCLE #: 7 Day 1 REASON FOR VISIT: Modified FOLFOX chemotherapy SUBJECTIVE Mrs. Armstrong is here for C7D1 modified, dose-reduced FOLFOX chemotherapy. She will not get 5FU bolus. She reports that she is overall doing pretty well. She met with Otoniel Álvarez DNP prior to her infusionappt. She has no questions/concerns and is ready for treatment today. OBJECTIVE LAB DATA: Labs drawn today at [facility]. Reviewed and found adequate for treatment. Pre administration: Chemotherapy orders independently verified for drug name, route, and dosage per patient's height, weight and BSA by Tay Vallecillo RN and pharmacist on-site. HOME INFUSION - Connect Fluorouracil (5-FU) DOSE: 2292 mg over 46 hours RATE: 3mL/hr ROUTE: IV Port START TIME: 1352 Chemotherapy safety checks performed per protocol with ARYA ro. Drug amount infused verified by ARYA ro double check after approximated 15 minutes and that xxx mL had infused. Anticipated date/time of disconnect: Tuesday, 09/13 at 11:52 Plan for disconnect: to disconnect at home, supplies given to patient. REACTIONS (DESCRIPTION, TIME, INTERVENTION AND EFFECTIVENESS) none ASSESSMENT Mrs. Armstrong was awake, alert and tolerated treatment well. PLAN Return to clinic in 2 weeks for consideration of C8. Patient was reminded to call in the interim with any questions/concerns. documented in this encounter Plan of Treatment Upcoming Encounters Date Type Specialty Care Team Description 11/06/2021 Office Visit Hematology and Oncology Michael Romero MD [facility] ONCOLOGY [place], [place] [address] (Wo rk) 11/06/2021 Infusion Hematology [...] MAR Action Action Date Dose Rate Site dexAMETHasone (Decadron) tablet 10 Given 09/11/2021 11:03 AM EDT 10 mg mg 10 mg, Oral, ONCE, 1 dose, On Tue09/11/21 at 1115, Administer prior to chemotherapy, Routine fluorouraciL (AdruciL) in sodium Given 09/11/2021 1:51 PM EDT 2, 292 mg 3 mL/hr chloride 0.9% 138 mL infusion (46 Hour - For Home Use) 2,292 mg 2,292 mg (1,200 mg/m2/dose ? 1.91 m2 Treatment Plan BSA from Recorded weight), Intravenous, ONCE, 1 dose, On Tue09/11/21 at 1345, Administer over 46 Hours, Warning Vesicant/Irritant Medication To be infused via an ambulatory infusion CADD Legacy Plus pump continuously IV at 3 mL/hr for 46 hours. Pump contains a 46 hour supply and provides 1,200 mg/m2 over 46 hours. leucovorin 350 mg in dextrose 5% 85 New Bag 09/11/2021 12:10 P M EDT 350 mg 60 mL/hr mL infusion 350 mg, Intravenous, ONCE, 1 dose, On Tue09/11/21 at 1215, Administer over 85 Minutes, May Y-site with OXALIplatin Do not administer at a rate faster than 160 milligrams/minute. OXALIplatin (Eloxatin) 100 mg in New Bag 09/11/2021 12:09 PM E DT 100 mg 190.6 mL/hr dextrose 5% 270 mL infusion 100 mg, Intravenous, ONCE, 1 dose, On Tue09/11/21 at 1215, Administer over 85 Minutes, Dose Ordered = 105 mg (55 mg/m2). Pharmacist rounded dose per procedure (Re-ordered by MD/ENVIRONMENTAL HEALTH SAFETY MANAGER). Compatible with dextrose-containing solution only. Warning Vesicant/Irritant Medication palonosetron (Aloxi) (0.05 mg/mL) injection Given 09/02 11:04 AM EDT 0.25 mg 0.25 mg 0.25 mg, Intravenous, ONCE, 1 dose, On Tue09/11/21 at 1115, Administer over 30 seconds. Administer prior to chemotherapy, Routine documented in this encounter Care Teams Lead Slot Technician Relationship Specialty Start Date End Date None PCP - General 12/03/19 None documented as of this encounter
--- OUTSIDE RECORDS SUMMARY | 2021-11-06 01:24 | XMS_ITS | Encounter Summary ---
:1940 Author Organization [facility] [place] [address] Care Team Providers Name Role Phone None Primary Care Provider Unavailable Encounter Details Date Type Department Care Team Description 05/22/2021 Orders Only Hematology/Oncology at [facility] [address] [place], [place] HEMATOLOGY [place] [phone] [place], [place] [id number] (Wo rk) Social History Tobacco Use Types Packs/Day Years Used Date Never Smoker Smokeless Tobacco: Never Used Sex Assigned at Date Recorded Not on file documented as of this encounter Plan of Treatment Upcoming Encounters Date Type Specialty Care Team Description 11/06/2021 Office Visit Hematology and Oncology Michael Romero MD [facility] [address] [place], [place] [address] (Wo rk) 11/06/2021 Infusion Hematology and Oncology documented as of this encounter Visit Diagnoses Not on filedocumented in this encounter Care Teams Fisher Relationship Specialty Start Date End Date None PCP - General 12/03/19 None documented as of this encounter
--- OUTSIDE RECORDS SUMMARY | 2021-11-06 01:24 | XMS_ITS | Encounter Summary ---
:1940 [place] [address] Care Team Providers Name Role Phone None Primary Care Provider Unavailable Encounter Details Date Type Department Care Team Description 07/22/2021 Ancillary Procedure Radiology Library at Jorge Romero [facility] [place] [facility] [place] [address] ONCOLOGY [phone] [place], [place] [address] (Wo rk) Social History Tobacco Use Types Packs/Day Years Used Date Never Smoker Smokeless Tobacco: Never Used Sex Assigned at Date Recorded Not on file documented as of this encounter Plan of Treatment Upcoming Encounters Date Type Specialty Care Team Description 11/06/2021 Office Visit Hematology and Oncology Michael Romero MD [facility] [address] [place], [place] [address] (Wo rk) 11/06/2021 Infusion Hematology and Oncology documented as of this encounter Procedures Procedure Name Priority Date/Time Associated Diagnosis Comme nts FILM LIBRARY Routine 07/22/2021 12:05 AM Results for this STORAGE ONLY CT EDT procedure ar e in CHEST ABDOMEN the results PELVIS section. documented in this encounter Results Film Library- Storage Only CT Chest Abdomen Pelvis (07/22/2021 12:05 AM EDT) Specimen (Source) Anatomical Location Collection Method / Collectio n Time Received Time / Laterality Volume Narrative RAD - 07/23/2021 12:39 PM EDT This exam is auto-finalizing. It's purpo se is for storage only. Michael Romero MD IMG FILM LIBRARY ORDERABLES Performing Organization Address City/State/ZIP Code Phon e Number DH RAD DH RAD [place], [place] documented in this encounter Visit Diagnoses Not on filedocumented in this encounter Care Teams Ordained Minister Relationship Specialty Start Date End Date None PCP - General 12/03/19 None documented as of this encounter
--- OUTSIDE RECORDS SUMMARY | 2021-11-06 01:24 | XMS_ITS | Encounter Summary ---
:1940 Author Organization [place] [address] Care Team Providers Name Role Phone None Primary Care Provider Unavailable Reason for Visit Reason Onset Date Comments Follow-up 06/29/[address] of flu shing port when chemo complete Encounter Details Date Type Department Care Team Description 06/29/2021 Telephone Hematology/Oncology at Virginia Leon RN Follow-up (Incorrect way [facility] of flushing port when [address] [place] [address] Drive chemo complete) [place] [address] Social History Tobacco Use Types Packs/Day Years Used Date Never Smoker Smokeless Tobacco: Never Used Sex Assigned at Date Recorded Not on file documented as of this encounter Miscellaneous Notes Telephone Encounter - Virginia Leon RN - 06/29/2021 8:30 AM EDT Called pt and to review how they flushed the port after chemotherapy finished on Tuesday. stated he pulled the needle then flushed the line into the sink. I asked them to come into clinic today to flush port correctly as chemo was left in the port. and said they still had directions on how to flush the port and have done this twice now once in clinic and once at home, but did not think she should get that saline into her body. They will come to clinic and have flushed and will watch again how it is done. documented in this encounter Plan of Treatment Upcoming Encounters Date Type Specialty Care Team Description 11/06/2021 Office Visit Hematology and Oncology Michael Romero MD [facility] [address] [place], [place] [address] (Wo rk) 11/06/2021 Infusion Hematology and Oncology documented as of this encounter Visit Diagnoses Not on filedocumented in this encounter Care Teams Knowledge Engineer Relationship Specialty Start Date End Date None PCP - General 12/03/19 None documented as of this encounter
--- OUTSIDE RECORDS SUMMARY | 2021-11-06 01:24 | XMS_ITS | Encounter Summary ---
:1940 Author Organization [facility] [place] [address] Care Team Providers Name Role Phone None Primary Care Provider Unavailable Encounter Details Date Type Department Care Team Description 08/17/2021 Orders Only Hematology/Oncology at [facility] Mckenna APRN [address] MEDICAL ONCOLOGY [facility] [id number] [phone] Social History Tobacco Use Types Packs/Day Years Used Date Never Smoker Smokeless Tobacco: Never Used Sex Assigned at Date Recorded Not on file documented as of this encounter Plan of Treatment Upcoming Encounters Date Type Specialty Care Team Description 11/06/2021 Office Visit Hematology and Oncology Michael Romero MD [facility] DR ONCOLOGY [place], [place] [address] (Wo rk) 11/06/2021 Infusion Hematology and Oncology documented as of this encounter Visit Diagnoses Not on filedocumented in this encounter Care Teams Overhead Line Worker Relationship Specialty Start Date End Date None PCP - General 12/03/19 None documented as of this encounter
--- OUTSIDE RECORDS SUMMARY | 2021-11-06 01:24 | XMS_ITS | Encounter Summary ---
:1940 Author Organization [facility] [place] [address] Care Team Providers Name Role Phone None Primary Care Provider Unavailable Encounter Details Date Type Department Care Team Description 06/12/2021 Office Visit Hematology/Oncology Mckenna Farris, Prim marycruz colon cancer at [facility] COMMISSIONING EDITOR with metastasis to [facility] [address] [place] [address] DR other site [place], [place] MED[place]OG [place] [address] [place], [place] [phone] (Wo rk) Social History Tobacco Use Types Packs/Day Years Used Date Never Smoker Smokeless Tobacco: Never Used Sex Assigned at Date Recorded Not on file documented as of this encounter Last Filed Vital Signs Vital Sign Reading Time Taken Comments Blood Pressure 125/66 06/12/2021 9:12 AM EST Pulse 88 06/12/2021 9:12 AM EST Temperature 36 ??C (96.8 ??F) 06/12/2021 9:12 AM EST Respiratory Rate 18 06/12/2021 9:12 AM EST Oxygen Saturation 98% 06/12/2021 9:12 AM EST Inhaled Oxygen Concentration - - Weight 84.5 kg (186 lb 3.2 oz) 06/12/2021 9:12 AM EST Height 160 cm (5' 2.99) 06/12/2021 9:12 AM EST Body Mass Index 32.99 06/12/2021 9:12 AM EST documented in this encounter Progress Notes Mckenna Farris, COMMISSIONING EDITOR - 06/12/2021 9:30 AM EST Subjective Patient ID: Joy Armstrong is a 80 y.o. female. Patient Active Problem List Diagnosis Code ??? Primary colon cancer with metastasis to other site C18.9 HPI ?? 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 ?? Presented in 10/2019, found to have severe anemia. Colonoscopy - mass in sigmoid colon, bx of which showed adenocarcinoma. IHC for MMR proteins - intact staining. By imaging, this was a locally advancedcancer with primary site in the cecum extending to involve the sigmoid colon, bladder and uterus andthere was a cystic mass in the pelvis. ?? She was seen at [facility] and underwent resection on 12/05/2019 - path [...] procedure for her to go through. ?? We talked about the schedule and potential side effects of Folfox therapy. With this regimen, fluorouracil, leucovorin and oxaliplatin are given on??day??1??followed by a 46-48 hour infusion of fluorouracil with cycles repeated every two??weeks??assuming tolerance. ??Due to the infusional component oftherapy, a mediport is needed. ??We reviewed potential side effects of therapy, including nausea andvomiting, stomatitis, diarrhea, dehydration, lack of appetite, taste change, myelosuppression with associated risks of bleeding, infection and dose delays, peripheral neuropathy which may be exacerbated by cold exposure but which may be cumulative and permanent even in the absence of cold, laryngeal dysesthesia, fatigue, angina/NC, hypersensitivity reactions and others.?She??was given informational handouts [...] scan was done on 05/05/21 - there is a new pleural based nodule on the left and new areas of nodularity in the intraperitoneal space and along the surgical scar in the right lower quadrantand upper vaginal cuff, suspicious for metastases. ?? I have asked that NGS be performed on the omental biopsy. ?? After discussion, she is interested in trying the chemotherapy and seeing how she does with it. I will make a referral for mediport placement. I will meet with her after that to see if she has other questions and plan to start chemotherapy shortly thereafter. Romero is interested in learning how to do the pump disconnect at home and our nurses will provide teaching. We are not able to have DPYD drawn at her local hospital. In addition, she has taken capecitabine in the past without severe toxicity.We will start with reduced dose therapy and increase if tolerated. ? I provided care to the patient today via telephone call. The total time associated with this visit was 30 minutes. ? : Joy Armstrong is a 80 yo female initially diagnosed with colon cancer in 12/22. She was treated with surgery and post operative Capecitabine. 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 CT of 05/05/21 shows likely additional metastatic abdominal nodules. Interval HPI(06/12/21Eileen Hamilton returns to clinic today to continue treatment for CRC. She is accompanied by her today. No fevers, chills or signs of infection. She tolerated C1 well. She had a couple of brief feelings of nausea but did not need to take any medication- it went right away. She is eating and drinking well. She has mild constipation but is managing this well. No diarrhea. She denies pain. No sores in mouth or difficulty swallowing. No chest pain or changes in breathing. She has bilateral LE swelling R>L but states that is her normal - she fractured her right leg in the past. No numbness or tingling. She is taking her B12 as a tablet- she thought she was going to get an injection and when she got there they just told her to take a pill. No other focal complaints today. Allergies Allergen Reactions ??? Shellfish Derived swelling ??? Sulfamethoxazole-Trimethoprim ??? Sulfasalazine Current Medications ??? magnesium 250 mg Tablet ??? prochlorperazine (Compazine) 10 mg Tablet ??? levothyroxine (Synthroid) 100 mcg Tablet ??? mometasone (ELOCON) 0.1 % Ointment ??? oxybutynin (Ditropan) 5 mg Tablet ??? simvastatin (Zocor) 10 mg Tablet ??? tolterodine LA (Detrol LA) 4 mg Capsule, Sust. Release 24 hr ??? cyanocobalamin, Vitamin B-12, (Vitamin B-12) 100 mcg Tablet ??? Cod Liver Oil Oil ??? cholecalciferol, Vitamin D3, 25 mcg (1,000 unit) Capsule ??? ascorbic acid, vitamin C, (VITAMIN C) 100 mg Tablet ??? ferrous sulfate 325 mg (65 mg iron) Tablet ??? Boost High Protein 0.06 gram- 1 kcal/mL Liquid Social History Tobacco Use ??? Smoking status: Never Smoker ??? Smokeless tobacco: Never Used Vaping Use ??? Vaping Use: Never used Review of Systems Constitutional: Negative. HENT: Negative. Respiratory: Negative. Negative for cough and shortness of breath. Cardiovascular: Negative. Negative for chest pain. Gastrointestinal: Negative. Negative for abdominal pain. Musculoskeletal: Negative. Neurological: Negative. Psychiatric/Behavioral: Negative. Objective Physical Exam Vitals reviewed. Constitutional: Appearance: Normal appearance. She is not ill-appearing. HENT: Head: Normocephalic. Mouth/Throat: Mouth: Mucous membranes are moist. Pharynx: Oropharynx is clear. Cardiovascular: Rate and Rhythm: Normal rate and regular rhythm. Pulmonary: Breath sounds: Normal breath sounds. No wheezing or rales. Abdominal: General: Bowel sounds are normal. Palpations: Abdomen is soft. Tenderness: There is abdominal tenderness. Comments: Well healed abdominal incisions. Tenderness on palpation on right near incision. Musculoskeletal: Right lower leg: Edema present. Left lower leg: Edema present. Comments: Bilateral LE edema R>l Skin: General: Skin is warm and dry. Neurological: Mental Status: She is alert and oriented to person, place, and time. Coordination: Coordination normal. Psychiatric: Mood and Affect: Mood normal. Thought Content: Thought content normal. BP 125/66 (Patient Position: Sitting) Pulse 88 Temp 36 ??C (96.8 ??F) (Temporal) Resp 18 Ht 160 cm (5' 2.99) Wt 84.5 kg (186 lb 3.2 oz) SpO2 98% BMI 32.99 kg/m?? Wt Readings from Last 3 Encounters: 06/12/21 84.5 kg (186 lb 3.2 oz) 05/28/21 82.6 kg (182 lb 3.2 oz) 05/26/21 84 kg (185 lb 3.2 oz) LABS 06/12/21- WBC-4.25 Hgb/Hct-13.1/40.8 Plt-221 ANC-1.97 Ca-9.1 Glucose-109 BUN/Cr-11/0.9 Albumin-3.0 T. Bili-0.5 Alk phos-94 Na-141 K+- 4.0 AST-28 ALT-32 05/20/21 WBC 5.2; ANC 3.10; H/H 14.7/45/2; PLT 355; BUN 12; CREAT 0.8; ALP 156; AST 30; ;ALT 63; CEA 05/20/21 - 2.9 Assessment & Plan Joy Armstrong is a 80 yo female initially diagnosed with colon cancer in 12/22. She was treated with surgery and post operative Capecitabine. 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 CT of 05/05/21 shows likely additional metastatic abdominal nodules. Joy returns today for C2 FOLFOX. She tolerated C1 well. Labs and toxicities assessed and we will proceed with C2 today as planned. Plan: Follow up visit in 2 weeks with CBC,CMP, MG and C3 FOLFOX. Joy voiced understanding of the plan and was given an opportunity to ask questions which I answered to the best of my ability. Joy understands she can call the clinic between visits with any questions/concerns or new symptoms. Mckenna Farris MSN, COMMISSIONING EDITOR, AOCNP Medical Oncology documented in this encounter Plan of Treatment Upcoming Encounters Date Type Specialty Care Team Description 11/06/2021 Office Visit Hematology and Oncology Michael Romero MD [facility] DR ONCOLOGY [place], [place] [address] (Wo rk) 11/06/2021 Infusion Hematology and Oncology Scheduled Orders Name Type Priority Associated Diagnoses Order S chedule Magnesium Lab Routine Primary colon cancer with Ev trish 2 Weeks for 8 Occurrences metastasis to other site sta rting 06/12/2021 until 06/12/2022 documented as of this encounter Visit Diagnoses Diagnosis Primary colon cancer with metastasis to other site Stage IV adenocarcinoma of small bowel Malignant neoplasm of small intestine, u nspecified site documented in this encounter Care Teams Lithographic Press Feeder Relationship Specialty Start Date End Date None PCP - General 12/03/19 None documented as of this encounter
--- OUTSIDE RECORDS SUMMARY | 2021-11-06 01:24 | XMS_ITS | Encounter Summary ---
:1940 [place] [address] Care Team Providers Name Role Phone None Primary Care Provider Unavailable Encounter Details Date Type Department Care Team Description 05/05/2021 Ancillary Procedure Radiology Library at Jorge Romero [facility] [place] [address] ONCOLOGY [phone] [place], [place] [address] (Wo rk) Social History Tobacco Use Types Packs/Day Years Used Date Never Smoker Smokeless Tobacco: Never Used Sex Assigned at Date Recorded Not on file documented as of this encounter Plan of Treatment Upcoming Encounters Date Type Specialty Care Team Description 11/06/2021 Office Visit Hematology and Oncology Michael Romero MD [facility] [address] [place] [place], [place] [address] (Wo rk) 11/06/2021 Infusion Hematology and Oncology documented as of this encounter Procedures Procedure Name Priority Date/Time Associated Diagnosis Comme nts FILM LIBRARY Routine 05/05/2021 12:00 AM Results for this STORAGE ONLY CT EST procedure ar e in CHEST ABDOMEN the results PELVIS section. documented in this encounter Results Film Library- Storage Only CT Chest Abdomen Pelvis (05/05/2021 12:00 AM EST) Specimen (Source) Anatomical Location Collection Method / Collectio n Time Received Time / Laterality Volume Narrative RAD - 05/06/2021 3:11 PM EST This exam is auto-finalizing. It's purpo se is for storage only. Michael Romero MD IMG FILM LIBRARY ORDERABLES Performing Organization Address City/State/ZIP Code Phon e Number DH RAD DH RAD [place], [place] documented in this encounter Visit Diagnoses Not on filedocumented in this encounter Care Teams Cold Working Inspector Relationship Specialty Start Date End Date None PCP - General 12/03/19 None documented as of this encounter
--- OUTSIDE RECORDS SUMMARY | 2021-11-06 01:24 | XMS_ITS | Encounter Summary ---
:1940 [place] [address] Care Team Providers Name Role Phone None Primary Care Provider Unavailable Encounter Details Date Type Department Care Team Description 07/22/2021 Ancillary Procedure Radiology Library Michael Romeroed (D-SCHED at [facility] MD [place] ERROR / CORRECTION ) [facility] [address] [place] [place] ON[place]OGY [address] [place], [place] [phone] Social History Tobacco Use Types Packs/Day Years Used Date Never Smoker Smokeless Tobacco: Never Used Sex Assigned at Date Recorded Not on file documented as of this encounter Plan of Treatment Upcoming Encounters Date Type Specialty Care Team Description 11/06/2021 Office Visit Hematology and Oncology Michael Romero MD [facility] [address] [place], [place] [address] (Wo rk) 11/06/2021 Infusion Hematology and Oncology documented as of this encounter Visit Diagnoses Not on filedocumented in this encounter Care Teams Environmental Health Technologist Relationship Specialty Start Date End Date None PCP - General 12/03/19 None documented as of this encounter
--- OUTSIDE RECORDS SUMMARY | 2021-11-06 01:24 | XMS_ITS | Encounter Summary ---
:1940 Author Organization [place] [address] Care Team Providers Name Role Phone None Primary Care Provider Unavailable Encounter Details Date Type Department Care Team Description 08/28/2021 Orders Only Hematology and Oncology at Michael Silva MD [facility] [place] [address] [place] [address] [phone] (Wo rk) Social History Tobacco Use Types Packs/Day Years Used Date Never Smoker Smokeless Tobacco: Never Used Sex Assigned at Date Recorded Not on file documented as of this encounter Plan of Treatment Upcoming Encounters Date Type Specialty Care Team Description 11/06/2021 Office Visit Hematology and Oncology Michael Romero MD [facility] ONCOLOGY [place], [place] [address] (Wo rk) 11/06/2021 Infusion Hematology and Oncology documented as of this encounter Visit Diagnoses Not on filedocumented in this encounter Care Teams Gis Physical Scientist Relationship Specialty Start Date End Date None PCP - General 12/03/19 None documented as of this encounter
--- OUTSIDE RECORDS SUMMARY | 2021-11-06 01:24 | XMS_ITS | Encounter Summary ---
:1940 Author Organization [place] [address] Care Team Providers Name Role Phone None Primary Care Provider Unavailable Reason for Visit Treatment/Therapy Plan Authorization (Routine) - Pending Review Specialty Diagnoses / Procedures Referred By Contact Refer red To Contact Diagnoses Primary colon cancer with metastasis to other site Michael Romero MD [facility] Hem Onc Infusion [address] [place] [phone] Fax: Referral ID Status Reason Start Date Expiration Date Visits V isits Requested Authorized [id number] Pending 05/08/2021 05/08/2022 99 99 Review Encounter Details Date Type Department Care Team Description 06/26/2021 Infusion Hematology Oncology at [facility] colon cancer with [facility] metastasis to other site [address] [place] [phone] Social History Tobacco Use Types Packs/Day Years Used Date Never Smoker Smokeless Tobacco: Never Used Sex Assigned at Date Recorded Not on file documented as of this encounter Progress Notes Virginia Leon RN - 06/26/2021 10:30 AM EDT INFUSION THERAPY ADMINISTRATION NOTES TIME TREATMENT STARTED: 1025 TIME TREATMENT ENDED: 1335 DIAGNOSIS: metastatic colon cancer PROTOCOL:na CYCLE #: 3 REASON FOR VISIT: folfox SUBJECTIVE Joy Armstrong offers no complaints. we had no problem with pump disconnect OBJECTIVE LAB DATA: Labs reviewed and found adequate for treatment. Pre administration: Chemotherapy orders independently verified for drug name, route, and dosage per patient's height, weight and BSA by Marion Leon RN and Marion hillman pharmacist. 5fu Cadd pump check 20 minutes after started and 0.95 ccs had gone in. Pt's will disconnect pump on Tuesday06/28/21 at 1115am. REACTIONS (DESCRIPTION, TIME, INTERVENTION AND EFFECTIVENESS) none ASSESSMENT Joy Armstrong was awake, alert and he tolerated treatment well. PLAN Return to clinic in 2 weeks. documented in this encounter Plan of Treatment Upcoming Encounters Date Type Specialty Care Team Description 11/06/2021 Office Visit Hematology and Oncology Michael Romero MD [facility] DR ONCOLOGY [place], [place] [address] (Wo rk) 11/06/2021 Infusion Hematology [...] Rate Site dexamethasone (Decadron) tablet 10 Given 06/26/2021 10:37 AM EDT 10 mg mg 10 mg, Oral, ONCE, 1 dose, On Tue06/26/21 at 1045, Administer prior to chemotherapy, Routine fluorouraciL (ADRUCIL) chemo Given 06/26/2021 1:03 PM EDT 382 mg 91.7 mL/hr injection 382 mg 382 mg (200 mg/m2/dose ? 1.91 m2 Treatment Plan BSA from Recorded weight), Intravenous, ONCE, 1 dose, On Tue06/26/21 at 1145, Administer over 5 Minutes, Warning Vesicant/Irritant Medication fluorouraciL (AdruciL) in sodium Given 06/26/2021 1:09 PM EDT 3, 438 mg 3 mL/hr chloride 0.9% 138 mL infusion (46 Hour - For Home Use) 3,438 mg 3,438 mg (1,800 mg/m2/dose ? 1.91 m2 Treatment Plan BSA from Recorded weight), Intravenous, ONCE, 1 dose, On Tue06/26/21 at 1315, Administer over 46 Hours, Warning Vesicant/Irritant Medication To be infused via an ambulatory infusion CADD Legacy Plus pump continuously IV at 3 mL/hr for 46 hours. Pump contains a 46 hour supply and provides a daily dose of 1,200 mg/m2/day = 2,400 mg/m2 IV over 46 hours. leucovorin 350 mg in dextrose 5% 85 New Bag 06/26/2021 11:21 A M EDT 350 mg 60 mL/hr mL infusion 350 mg, Intravenous, ONCE, 1 dose, On Tue06/26/21 at 1145, Administer over 85 Minutes, May Y-site with OXALIplatin Do not administer at a rate faster than 160 milligrams/minute. OXALIplatin (Eloxatin) 122 mg in New Bag 06/26/2021 11:21 AM E DT 122 mg 193.7 mL/hr dextrose 5% 274.4 mL infusion 122 mg (rounded from 121.7625 mg = 63.75 mg/m2/dose ? 1.91 m2 Treatment Plan BSA from Recorded weight), Intravenous, ONCE, 1 dose, On Tue06/26/21 at 1145, Administer over 85 Minutes, Compatible with dextrose-containing solution only. Warning Vesicant/Irritant Medication palonosetron (Aloxi) (0.05 mg/mL) injection Given 06/03 10:38 AM EDT 0.25 mg 0.25 mg 0.25 mg, Intravenous, ONCE, 1 dose, On Tue06/26/21 at 1045, Administer over 30 seconds. Administer prior to chemotherapy, Routine documented in this encounter Care Teams Stone Decorator Relationship Specialty Start Date End Date None PCP - General 12/03/19 None documented as of this encounter
--- OUTSIDE RECORDS SUMMARY | 2021-11-06 01:24 | XMS_ITS | Encounter Summary ---
:1940 Author Organization [facility] [place] [address] Care Team Providers Name Role Phone None Primary Care Provider Unavailable Encounter Details Date Type Department Care Team Description 10/09/2021 Office Visit Hematology/Oncology Michael Romero Adeno carcinoma of small at [facility] MD [place] intestine, stage 4 [address] [facility] [id number] ONCOLOGY [phone] [place], [place] [address] Social History Tobacco Use Types Packs/Day Years Used Date Never Smoker Smokeless Tobacco: Never Used Sex Assigned at Date Recorded Not on file documented as of this encounter Last Filed Vital Signs Vital Sign Reading Time Taken Comments Blood Pressure 132/68 10/09/2021 9:20 AM EDT Pulse 86 10/09/2021 9:20 AM EDT Temperature 36.2 ??C (97.2 ??F) 10/09/2021 9:20 AM EDT Respiratory Rate 18 10/09/2021 9:20 AM EDT Oxygen Saturation 97% 10/09/2021 9:20 AM EDT Inhaled Oxygen Concentration - - Weight 82.6 kg (182 lb) 10/09/2021 9:20 AM EDT Height 160 cm (5' 2.99) 10/09/2021 9:20 AM EDT Body Mass Index 32.25 10/09/2021 9:20 AM EDT documented in this encounter Progress Notes Michael Romero MD - 10/09/2021 9:30 AM EDT Subjective Patient ID: Joy Armstrong is 81 y.o. Problem List: 1. 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 became very weak and lost her balance while shopping with her . When she had underwent evaluation, she was found to have iron deficiency anemia. 10/24/19 - Colonoscopy Path - Final Diagnosis A. COLON, SIGMOID,MASS, BIOPSY: - Invasive adenocarcinoma, moderately differentiated, colorectal primary - See comment. B. COLON, SIGMOID, POLYP, BIOPSY: - Hyperplastic polyp RESULTS OF IMMUNOHISTOCHEMICAL STAINING: Retained expression of MLH1, PMS2, MSH2 and MSH6 B. CT c/a/p 10/30/19 Chest - Impression: [...] gain noted suspicious for right ovarian neoplasm. C. 12/05/19 - Exploratory laparotomy, drainage of [...] intestineis identified in any of the sections. D. 05/2020 - began adjuvant chemotherapy with capecitabine, received 6 cycles. She had diarrhea and nausea on the capecitabine E. PET scan 10/25/20 - Impression: No definite locally recurrent or metastatic disease however I would recommend follow up MRI with contrast of the right lower quadrant abdominal wall to determine if there is a lesion requiring biopsy. MRI pelvis 10/31/20 - Impression: Right lower quadrant abdominal wall mass, suspicious for malignancy, corresponding to finding on PET-CT F. 12/24/20 - US guided biopsy Path [...] this case to further characterize the lesion. G. 02/18/21: Diagnostic laparoscopy, laparoscopic partial omentectomy [...] abdominal wall that had been planned was thus aborted considering she has intraperitoneal disease aside from the soft tissue malignancy. Peritoneal carcinomatosis index (PCI): at least a couple of studs are visible in the midline omentum (epigastrium). The small bowel was unable to be run because of significant intra abdominal adhesions Path ([facility] [place] - Omentum, mass, excision: - Metastatic [...] overall PCI=2. NGS - BRAF V600E mutation H. 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 I. 05/26/21 - Began therapy with Folfox, s/p [address] c/a/p 07/22/21 Chest - [...] scan of the chest for thoracic findings CT c/a/p 10/01/21 Chest - Impression: No change Abd/pelvis - Impression: No change 2. Hypothyroidism 3. Hyperlipidemia 4. ELVER 5. Bowel perforation which pt's thinks was related to a colonoscopy. Required emergent surgery. 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 The history is summarized above. She is receiving chemotherapy with Folfox. Joy is accompanied to clinic today by her Romero. She is feeling generally well. Her maincomplaint at this time is fatigue. 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 She thinks that if she were to touch something cold today, it would still be there but overall it is mild and man ageable. She has mild nausea at times, relieved with jennifer cookies. No vomiting and no diarrhea. Her weight is stable. Soc Hx: , lives in [place], [place] Tob - Never Etoh - None Worked as [employer]. Fam Hx: Father - Mother - breast and colon cancer Sibs - brother with lung cancer; sister had a colectomy due to colon polyps, then had a cancer in her liver (unsure if Children - GM - colon cancer Mar aunt had breast cancer Pat GF had cancer (intestinal vs stomach) Review of Systems Constitutional: Negative for activity change, appetite change, fatigue, fever and unexpected weight change. HENT: Negative. Respiratory: Negative. Cardiovascular: Negative. Gastrointestinal: Positive for abdominal pain (RLQ). Musculoskeletal: Negative. Skin: Negative. Neurological: Negative. Hematological: Negative. Psychiatric/Behavioral: Negative. Objective Physical Exam Vitals reviewed. Constitutional: General: She is not in acute distress. HENT: Head: Normocephalic and atraumatic. Eyes: General: No scleral icterus. Cardiovascular: Rate and Rhythm: Normal rate. Pulmonary: Effort: No respiratory distress. Abdominal: General: There is no distension. Musculoskeletal: General: No swelling. Skin: General: Skin is warm and dry. Findings: No rash. Neurological: General: No focal deficit present. Mental Status: She is alert. Coordination: Coordination normal. Psychiatric: Mood and Affect: Mood normal. Labs: WBC/ANC - 3., Hgb/Hct - 11.5/36.1, Plts - 127,000. BUN/Cr - 12/0.8. Alb - 2.9. Lytes and LFTs o/w unremarkable CEA 10/09/21 pending 09/25/21 4.3 09/11/21 3.8 08/28/21 3.4 08/21/21 4.3 08/07/21 5.1 07/24/21 4.2 07/10/21 6.7 06/26/21 8.2 06/12/21 3.8 05/26/21 3.1 04/22/21 3.6 10/26/[address] reviewed, report above Assessment & Plan Joy Armstrong is 81 yo, seen for evaluation and management of small bowel adenocarcinoma, stage IV. Presented in 10/2019, found to have severe anemia. Colonoscopy - mass in sigmoid colon, bx of which showed adenocarcinoma. IHC for MMR proteins - intact staining. By imaging, this was a locally advancedcancer with primary site in the cecum extending to involve the sigmoid colon, bladder and uterus andthere was a cystic mass in the pelvis. She was seen at [facility] and underwent resection on 12/05/2019 - path report above. 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 15 LNs seen, all negative, N0. Margins of resection - negative (cystectomy margin could not be determined). She received post-operative chemotherapy with capecitabine under the care of Dr. Cherry. She began therapy in 05/2020 and received 6 cycles, complicated by nausea and diarrhea. In 12/2020 she underwent bx of a rectus abdominis muscle which showed adenocarcinoma. A diagnostic laparoscopy was done by Dr. Jean-Baptiste on 02/18/21 with plans for en bloc resection of theabdominal wall recurrence. However, at the time of the procedure, limited omental disease was seen and the resection was aborted. Partial omentectomy was performed and the pathology from this showed metastatic adenocarcinoma consistent with a colorectal primary. We met on 04/17/21 and reviewed the [...] difficult procedure for her to go through. We talked about the schedule and potential [...] the absence of cold, laryngeal dysesthesia, fatigue, angina/UT, hypersensitivity reactions and others.?She was given informationalhandouts regarding these medications. Joy is willing to consider chemotherapy. Before making a final decision on the approach to treatment, we will get a restaging CT scan done. Depending on the findings and how she does with therapy, there may be a role for local therapies such as surgery or radiation in the future. A restaging CT scan was done on 05/05/21 - there was a new pleural based nodule on the left and new areas of nodularity in the intraperitoneal space and along the surgical scar in the right lower quadrant and upper vaginal cuff, suspicious for metastases. On 05/26/21 she began therapy with Folfox, s/p [address] was done on 10/01/21 and was stable. She is tolerating treatment pretty well, but has had dose delays due to myelosuppression resulting in dose reduction. The labs are adequate and we will proceed with treatment today at the same dose. NGS was performed on the omental biopsy - BRAF V600E mutation. documented in this encounter Plan of Treatment Upcoming Encounters Date Type Specialty Care Team Description 11/06/2021 Office Visit Hematology and Oncology Michael Romero MD [facility] ONCOLOGY [place], [place] [address] (Wo rk) 11/06/2021 Infusion Hematology and Oncology documented as of this encounter Visit Diagnoses Diagnosis Adenocarcinoma of small intestine, stage 4 Malignant neoplasm of small intestine, u nspecified site Stage IV adenocarcinoma of small bowel Malignant neoplasm of small intestine, u nspecified site documented in this encounter Care Teams Annealing Furnace Operator Relationship Specialty Start Date End Date None PCP - General 12/03/19 None documented as of this encounter
--- OUTSIDE RECORDS SUMMARY | 2021-11-06 01:24 | XMS_ITS | Encounter Summary ---
:1940 Author Organization [facility] [place] [address] Care Team Providers Name Role Phone None Primary Care Provider Unavailable Reason for Visit Reason Comments IV Access Port flush only Encounter Details Date Type Department Care Team Description 07/10/2021 Infusion Hematology Oncology at [facility] colon cancer with [facility] metastasis to other site [address] [place] [phone] Social History Tobacco Use Types Packs/Day Years Used Date Never Smoker Smokeless Tobacco: Never Used Sex Assigned at Date Recorded Not on file documented as of this encounter Progress Notes Lisa Ashby RN - 07/10/2021 10:30 AM EDT INFUSION THERAPY ADMINISTRATION NOTES DIAGNOSIS: colon cancer REASON FOR VISIT: MEDIPORT FLUSH ONLY-- chemotherapy held today due to low ANC IV ACCESS: Mediport accessed by [facility] BLOOD RETURN: yes ANY S/S OF INFECTION/EXTRAVASATIONS: no signs of IV complications observed IV FLUSHED WITH: 20cc NS and 500 units Heparin IV DISCONTINUED: yes ASSESSMENT: Patient tolerated treatment well. PLAN: Return to clinic per routine. documented in this encounter Plan of Treatment Upcoming Encounters Date Type Specialty Care Team Description 11/06/2021 Office Visit Hematology and Oncology Michael Romero MD [facility] ONCOLOGY [place], [place] [address] (Wo rk) 11/06/2021 Infusion Hematology and Oncology documented as of this encounter Visit Diagnoses Diagnosis Primary colon cancer with metastasis to other site Stage IV adenocarcinoma of small bowel Malignant neoplasm of small intestine, u nspecified site documented in this encounter Care Teams Customs Port Director Relationship Specialty Start Date End Date None PCP - General 12/03/19 None documented as of this encounter
--- OUTSIDE RECORDS SUMMARY | 2021-11-06 01:24 | XMS_ITS | Clinical Summary ---
:1940 Author Organization [facility] [place] [address] Care Team Providers Name Role Phone None Primary Care Provider Unavailable Allergies Active Allergy Reactions Severity Noted Date Comments Shellfish Derived 11/26/2019 swelling Sulfamethoxazole-Trimethoprim 11/19/2019 Sulfasalazine 11/26/2019 Medications Medication Sig Dispensed Refills Start Date End Date Status ferrous sulfate 325 mg Take 325 mg by 0 Active (65 mg iron) Tablet mouth. Boost High Protein 0.06 DRINK 1 BOTTLE 0 11/13/2019 Active gram- 1 kcal/mL Liquid BY MOUTH 3 TIMES A DAY FOR 30 DAYS levothyroxine (Synthroid) Take 100 mcg by 0 Active 100 mcg Tablet mouth. mometasone (ELOCON) 0.1 % JENNA A THIN 0 10/11/2019 Active Ointment LAYER AA BID oxybutynin (Ditropan) 5 Take 5 mg by 0 Active mg Tablet mouth Daily. simvastatin (Zocor) 10 mg Take 10 mg by 0 Active Tablet mouth. tolterodine LA (Detrol Take 4 mg by 0 Active LA) 4 mg Capsule, Sust. mouth. Release 24 hr cyanocobalamin, Vitamin Take 100 mcg by 0 Active B-12, (Vitamin B-12) 100 mouth daily. mcg Tablet Cod Liver Oil Oil Take by mouth. 0 Active cholecalciferol, Vitamin Take by mouth. 0 Active D3, 25 mcg (1,000 unit) Capsule ascorbic acid, vitamin C, Take 100 mg by 0 Active (VITAMIN C) 100 mg Tablet mouth daily. magnesium 250 mg Tablet Take 250 mg by 0 Active mouth. prochlorperazine Take 1 tablet 30 tablet 0 05/22/2021 Active (Compazine) 10 mg by mouth every TabletIndications: 6 hours as Metastasis from colon needed for cancer, Primary colon Nausea. cancer with metastasis to other site Active Problems Problem Noted Date Primary colon cancer with metastasis to other site 07/2021 Encounters Date Type Specialty Care Team Description 10/23/2021 Infusion Hematology and Primary colon cancer Oncology with metastasis to other site 10/23/2021 Office Visit Hematology and Michael Romero Stage IV Oncology [place] adenocarcinoma of small bowel 10/20/2021 Telephone Hematology and Martha Aguilar Oncology [place] 10/09/2021 Infusion Hematology and Primary colon cancer Oncology with metastasis to other site 10/09/2021 Office Visit Hematology and Michael Romero of Oncology [place] small intestine , stage 4 10/01/2021 Ancillary Radiology Michael Romero Procedure [place] 09/25/2021 Infusion Hematology and Primary colon cancer Oncology with metastasis to other site 09/25/2021 Office Visit Hematology and Michael Romero of Oncology [place] small intestine , stage 4 09/11/2021 Infusion Hematology and Primary colon cancer Oncology with metastasis to other site 09/11/2021 Office Visit Hematology and Álvarez, Primary colon cancer Oncology Viktoriya Calabrese APRN with metas tasis to other site 08/28/2021 Infusion Hematology and Primary colon cancer Oncology with metastasis to other site 08/28/2021 Orders Only Hematology and Michael Romero MD 08/21/2021 Infusion Hematology and Primary colon cancer Oncology with metastasis to other site 08/21/2021 Office Visit Hematology and Michael Romero of Oncology [place] small intestine, stage Mckenna Farris, 4 AUTO TIRE RECAPPER 08/17/2021 Orders Only Hematology and Mckenna Farris Oncology AUTO TI[employer] RECAPPER 08/07/2021 Infusion Hematology and Primary colon cancer Oncology with metastasis to other site 08/07/2021 Office Visit Hematology and Mckenna Farris Primary c olon cancer with metastasis to other site; Oncology AUTO TIRE RECAPPER Metastasis from colon cancer from Last 3 Months Social History Tobacco Use Types Packs/Day Years Used Date Never Smoker Smokeless Tobacco: Never Used Sex Assigned at Date Recorded Not on file Last Filed Vital Signs Vital Sign Reading Time Taken Comments Blood Pressure 119/61 10/23/2021 11:51 AM EDT Pulse 89 10/23/2021 11:51 AM EDT Temperature 36.5 ??C (97.7 ??F) 10/23/2021 11:51 AM EDT Respiratory Rate 18 10/23/2021 11:51 AM EDT Oxygen Saturation 97% 10/23/2021 11:51 AM EDT Inhaled Oxygen Concentration - - Weight 81.6 kg (180 lb) 10/23/2021 11:51 AM EDT Height 160 cm (5' 2.99) 10/23/2021 11:51 AM EDT Body Mass Index 31.89 10/23/2021 11:51 AM EDT Plan of Treatment Upcoming Encounters Date Type Specialty Care Team Description 11/06/2021 Office Visit Hematology and Oncology Michael Romero MD [facility] [address] ONCOLOGY [place], [place] [address] (Wo rk) 11/06/2021 Infusion Hematology and Oncology Health Maintenance Due Date Last Done Comments Covid-19 Vaccine (#1) 09/09/1945 Hepatitis C Screening 1960 Tdap adult 1961 Tetanus vaccine 1961 Zoster vaccine (1 of 2) 1992 Advance Directive 1997 Bone Density Scan 09/09/2007 Pneumoccocal Vaccine: 65+ (1 - PCV) 09/09/2007 Influenza (Flu) vaccine (1 of 1 - Influenza standard 12/03/2021 series) Procedures Procedure Name Priority Date/Time Associated Diagnosis Comme nts LAB SCAN 10/24/2021 12:00 AM Results for this EDT procedure are i n the results section. LAB SCAN 10/10/2021 12:00 AM Results for this EDT procedure are i n the results section. FILM LIBRARY Routine 10/01/2021 12:41 PM Results for this STORAGE ONLY CT EDT procedure ar e in CHEST ABDOMEN the results PELVIS section. CT SCAN (SCAN) 10/01/2021 12:00 AM Result s for this EDT procedure are i n the results section. LAB SCAN 09/26/2021 12:00 AM Results for this EDT procedure are i n the results section. LAB SCAN 09/13/2021 12:00 AM Results for this EDT procedure are i n the results section. LAB SCAN 08/29/2021 12:00 AM Results for this EDT procedure are i n the results section. LAB SCAN 08/22/2021 12:00 AM Results for this EDT procedure are i n the results section. LAB SCAN 08/07/2021 12:00 AM Results for this EDT procedure are i n the results section. from Last 3 Months Results SCAN DOC: LAB (10/24/2021 12:00 AM EDT)Only the most recent of7 resultswithin the time period is included. Narrative This result has an attachment that is no t available. Unknown MEDIA MGR SCAN EXT ORDR/RSLT Film Library- Storage Only CT Chest Abdomen Pelvis (10/01/2021 12:41 PM EDT) Specimen (Source) Anatomical Location Collection Method / Collectio n Time Received Time / Laterality Volume Narrative [facility] - 10/01/2021 12:41 PM EDT This exam is auto-finalizing. It's purpo se is for storage only. Michael Romero MD IMG FILM LIBRARY ORDERABLES Performing Organization Address City/State/ZIP Code Phon e Number [place], [place] SCAN DOC: CT SCAN (10/01/2021 12:00 AM EDT) Narrative This result has an attachment that is no t available. Unknown MEDIA MGR SCAN EXT ORDR/RSLT from Last 3 Months Insurance Payer Benefit Plan / Subscriber ID Effective Dates Phone Addre ss Type Group MEDICARE MEDICARE PART A [id number] 2019-Presen [id number] [place] [address] Care Teams Gas Welder Apprentice Relationship Specialty Start Date End Date None PCP - General 12/03/19 None
--- OUTSIDE RECORDS SUMMARY | 2021-11-06 01:24 | XMS_ITS | Encounter Summary ---
:1940 Author Organization [facility] [place] [address] Care Team Providers Name Role Phone None Primary Care Provider Unavailable Encounter Details Date Type Department Care Team Description 10/20/2021 [facility] [address] [phone] Social History Tobacco Use Types Packs/Day Years Used Date Never Smoker Smokeless Tobacco: Never Used Sex Assigned at Date Recorded Not on file documented as of this encounter Miscellaneous Notes Telephone Encounter - Martha Aguilar - 10/20/2021 4:32 PM EDT Left message with Joy to confirm her visits on 10/23 have been adjusted to the following: [facility] Port Draw 11 Visit and Infusion 12 documented in this encounter Plan of Treatment Upcoming Encounters Date Type Specialty Care Team Description 11/06/2021 Office Visit Hematology and Oncology Michael Romero MD [facility] ONCOLOGY [place], [place] [address] (Wo rk) 11/06/2021 Infusion Hematology and Oncology documented as of this encounter Visit Diagnoses Not on filedocumented in this encounter Care Teams Bus Girl Relationship Specialty Start Date End Date None PCP - General 12/03/19 None documented as of this encounter
--- OUTSIDE RECORDS SUMMARY | 2021-11-06 01:24 | XMS_ITS | Encounter Summary ---
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 Metastasis from colon cancer [address] [facility], [place] MEDICAL [place]OG [place] [address] [place], [place] [phone] (Wo rk) Social History Tobacco Use Types Packs/Day Years Used Date Never Smoker Smokeless Tobacco: Never Used Sex Assigned at Date Recorded Not on file documented as of this encounter Last Filed Vital Signs Vital Sign Reading Time Taken Comments Blood Pressure 113/56 08/07/2021 11:24 AM EDT Pulse 97 08/07/2021 11:24 AM EDT Temperature 35.6 ??C (96.1 ??F) 08/07/2021 11:24 AM EDT Respiratory Rate 18 08/07/2021 11:24 AM EDT Oxygen Saturation 96% 08/07/2021 11:24 AM EDT Inhaled Oxygen Concentration - - Weight 83.6 kg (184 lb 4.9 oz) 08/07/2021 11:24 AM EDT Height 160 cm (5' 2.99) 08/07/2021 11:24 AM EDT Body Mass Index 32.66 08/07/2021 11:24 AM EDT documented in this encounter Progress Notes Mckenna Farris, NICOLE - 08/07/2021 11:30 AM EDT Subjective Patient ID: Joy Armstrong is 80 y.o. Problem List: 1. Adenocarcinoma, felt to [...] because of significant intra abdominal adhesions Path ([facility] review) - Omentum, mass, excision: - Metastatic [...] 05/26/21 - Began therapy with Folfox, s/p [address] c/a/p 07/22/21 Chest - [...] scan of the chest for thoracic findings 2. Hypothyroidism 3. Hyperlipidemia 4. ELVER 5. Bowel perforation which pt's thinks was related to a colonoscopy. Required emergent surgery. 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 The history is summarized above. She is receiving chemotherapy with Folfox. Treatment has been held for two weeks due to myelosuppression. INTERVAL HISTORY/SUBJECTIVE: Joy returns to clinic today to continue treatment. She is by herself today. She is feeling fair. She has nausea at times and says she eats a jennifer cookie which does help. Weight is stable. She has been a bit more active since last seen. The symptoms of neuropathy are lasting longer with each cycle but still resolve completely between cycles. No areas of pain. The bowel habits are up and down. Nofevers chills or signs of infection. Noother focal complaints today. Soc Hx: , lives in [place], [place] Tob - Never Etoh - None Worked as [employer]. Fam Hx: Father - Mother - breast [...] acute distress. HENT: Head: Normocephalic and atraumatic. Mouth/Throat: Pharynx: Oropharynx is clear. No oropharyngeal exudate. Eyes: General: No scleral icterus. Cardiovascular: Rate and Rhythm: Normal rate and regular rhythm. Pulmonary: Effort: Pulmonary effort is normal. No respiratory distress. Breath sounds: No wheezing or rales. Chest: Breasts: Right: No supraclavicular adenopathy. Left: No supraclavicular adenopathy. Abdominal: General: There is no distension. Palpations: There is mass (poorly defined, RLQ). Tenderness: There is no abdominal tenderness. There is no guarding. Musculoskeletal: General: No swelling. Lymphadenopathy: Cervical: No cervical adenopathy. Upper Body: Right upper body: No supraclavicular adenopathy. Left upper body: No supraclavicular adenopathy. Skin: General: Skin is warm and dry. Findings: No rash. Neurological: General: No focal deficit present. Mental Status: She is alert. Coordination: Coordination normal. Psychiatric: Mood and Affect: Mood normal. Wt Readings from Last 3 Encounters: 08/07/21 83.6 kg (184 lb 4.9 oz) 07/24/21 83.6 kg (184 lb 6.4 oz) 07/16/21 84.6 kg (186 lb 6.4 oz) Labs: 08/07/21- WBC-4.13 Hgb/Hct-12.0/37.7 Plt-137 ANC-2.00 Na-142 K+3.7 BUN/Cr-12/0.8 Glucose-105 Ca-8.6 T. Bili-0.5 AST-28 ALT-29 Alk phos-104 Albumin-3.0 WBC/ANC - 5., Hgb/Hct - 12.9/40.7, Plts - 203,000. BUN/Cr - 17/0.9. Alb - 3.1. Lytes and LFTs o/w unremarkable CEA 08/07/21 pending 07/24/21 4.2 07/10/21 6.7 06/26/21 8.2 06/12/21 3.8 05/26/21 3.1 04/22/21 3.6 10/26/[address] reviewed, report above Assessment & Plan Joy Armstrong is 80 yo, seen for [...] in the pelvis. She was seen at [facility] and underwent resection [...] the absence of cold, laryngeal dysesthesia, fatigue, angina/[place], hypersensitivity reactions and others.?She was given informationalhandouts [...] 05/26/21 she began therapy with Folfox, s/p [address] was done on 07/22/21 and is stable or perhaps slightly Improved. She is tolerating treatment pretty well, but has had dose delays due to myelosuppression. We will plan to continue the current therapy but will omit the bolus 5FU. NGS was performed on the omental biopsy - BRAF [id number] mutation. 08/07/21- Labs and toxicities assessed today and are adequate to continue treatment. Proceed with C5 FOLFOX with omission of 5FU bolus. Follow up visit in 2 weeks with labs and C6. 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
--- OUTSIDE RECORDS SUMMARY | 2021-11-06 01:24 | XMS_ITS | Encounter Summary ---
:1940 Author Organization [facility] [place] [address] Care Team Providers Name Role Phone None Primary Care Provider Unavailable Encounter Details Date Type Department Care Team Description 06/12/2021 Orders Only Hematology/Oncology at [facility] Mckenna APRN [address] MEDICAL ONCOLOGY [facility] [phone] Social History Tobacco Use Types Packs/Day Years Used Date Never Smoker Smokeless Tobacco: Never Used Sex Assigned at Date Recorded Not on file documented as of this encounter Plan of Treatment Upcoming Encounters Date Type Specialty Care Team Description 11/06/2021 Office Visit Hematology and Oncology Michael Romero MD [facility] [address] ONCOLOGY [place], [place] [address] (Wo rk) 11/06/2021 Infusion Hematology and Oncology documented as of this encounter Visit Diagnoses Not on filedocumented in this encounter Care Teams Director Counseling Bureau Relationship Specialty Start Date End Date None PCP - General 12/03/19 None documented as of this encounter
--- OUTSIDE RECORDS SUMMARY | 2021-11-06 01:24 | XMS_ITS | Encounter Summary ---
:1940 Author Organization [place] [place] [address] Care Team Providers Name Role Phone None Primary Care Provider Unavailable Reason for Visit Reason Comments Chemotherapy Treatment/Therapy Plan Authorization (Routine) - Pending Review Specialty Diagnoses / Procedures Referred By Contact Refer red To Contact Diagnoses Primary colon cancer with metastasis to other site Michael Romero MD [facility] Hem Onc Infusion [address] [place] [phone] Fax: Referral ID Status Reason Start Date Expiration Date Visits V isits Requested Authorized [id number] Pending 05/08/2021 05/08/2022 99 99 Review Encounter Details Date Type Department Care Team Description 10/09/2021 Infusion Hematology Oncology at [facility] colon cancer with [facility] metastasis to other site [address] [place] [phone] Social History Tobacco Use Types Packs/Day Years Used Date Never Smoker Smokeless Tobacco: Never Used Sex Assigned at Date Recorded Not on file documented as of this encounter Progress Notes Arsenio Londono RN - 10/09/2021 10:00 AM EDT INFUSION THERAPY ADMINISTRATION NOTES DIAGNOSIS: GI Colorectal CA CYCLE #: Day 1 Cycle 9 REASON FOR VISIT: FOLFOX infusion and initiation of continunous home 5FU infusion via CADD pump provided by [employer] PENG [place] offers no complaints. OBJECTIVE LAB DATA: Labs reviewed and found adequate for treatment. WBC 3.41; PLT 127; ANC 1.32; BUN 12; Creat 0.8 Pre administration: Chemotherapy orders independently verified for drug name, route, and dosage per patient's height, weight and BSA by Vikram KOENIG, Lita Baker RN, Virginia Leon RN and Pharm Franca. At time of administration Patient identity verified using patient's name and date of at the chair/bedside by double RN check just prior to initiating the patient's home infusion chemotherapy via CADD pump provided by [employer]. Fluorouracil 2292 mg over 46 hours, IV via CADD pump. Amount infused verified by double RN check after 15 minutes and appropriate amount had infused. REACTIONS (DESCRIPTION, TIME, INTERVENTION AND EFFECTIVENESS) none ASSESSMENT Joy was awake, alert and tolerated treatment well. Port checked for patency and blood return on each use. Provided home disconnect kit PLAN Return to clinic as scheduled. documented in this encounter Plan of Treatment Upcoming Encounters Date Type Specialty Care Team Description 11/06/2021 Office Visit Hematology and Oncology Michael Romero MD [facility] DR ONCOLOGY [place], [place] [address] (Wo rk) 11/06/2021 Infusion Hematology [...] Rate Site dexAMETHasone (Decadron) tablet 10 Given 10/09/2021 10:25 AM EDT 10 mg mg 10 mg, Oral, ONCE, 1 dose, On Tue10/09/21 at 1030, Administer prior to chemotherapy, Routine fluorouraciL (AdruciL) in sodium Given 10/09/2021 12:47 PM EDT 2 ,292 mg 3 mL/hr chloride 0.9% 138 mL infusion (46 Hour - For Home Use) 2,292 mg 2,292 mg (1,200 mg/m2/dose ? 1.91 m2 Treatment Plan BSA from Recorded weight), Intravenous, ONCE, 1 dose, On Tue10/09/21 at 1300, Administer over 46 Hours, Warning Vesicant/Irritant Medication To be infused via an ambulatory infusion CADD Legacy Plus pump continuously IV at 3 mL/hr for 46 hours. Pump contains a 46 hour supply and provides 1,200 mg/m2 over 46 hours. leucovorin 350 mg in dextrose 5% 85 New Bag 10/09/2021 10:59 A M EDT 350 mg 60 mL/hr mL infusion 350 mg, Intravenous, ONCE, 1 dose, On Tue10/09/21 at 1130, Administer over 85 Minutes, May Y-site with OXALIplatin Do not administer at a rate faster than 160 milligrams/minute. OXALIplatin (Eloxatin) 100 mg in New Bag 10/09/2021 10:59 AM E DT 100 mg 190.6 mL/hr dextrose 5% 270 mL infusion 100 mg, Intravenous, ONCE, 1 dose, On Tue10/09/21 at 1130, Administer over 85 Minutes, Dose Ordered = 105 mg (55 mg/m2). Pharmacist rounded dose per procedure (Re-ordered by MD/NICOLE). Compatible with dextrose-containing solution only. Warning Vesicant/Irritant Medication palonosetron (Aloxi) (0.05 mg/mL) injection Given 11/2021 10:25 AM EDT 0.25 mg 0.25 mg 0.25 mg, Intravenous, ONCE, 1 dose, On Tue10/09/21 at 1030, Administer over 30 seconds. Administer prior to chemotherapy, Routine documented in this encounter Care Teams Shale Miner Blasting Relationship Specialty Start Date End Date None PCP - General 12/03/19 None documented as of this encounter
--- OUTSIDE RECORDS SUMMARY | 2021-11-06 01:24 | XMS_ITS | Encounter Summary ---
:1940 Author Organization [facility] [place] [address] Care Team Providers Name Role Phone None Primary Care Provider Unavailable Encounter Details Date Type Department Care Team Description 07/24/2021 Office Visit Hematology/Oncology Aaron Romero MD [facility] [place] [address] [facility] [address] [place] [address] [place] [address] [place] [phone] Social History Tobacco Use Types Packs/Day Years Used Date Never Smoker Smokeless Tobacco: Never Used Sex Assigned at Date Recorded Not on file documented as of this encounter Last Filed Vital Signs Vital Sign Reading Time Taken Comments Blood Pressure 123/66 07/24/2021 9:21 AM EDT Pulse 85 07/24/2021 9:21 AM EDT Temperature 36.2 ??C (97.1 ??F) 07/24/2021 9:21 AM EDT Respiratory Rate 20 07/24/2021 9:21 AM EDT Oxygen Saturation 98% 07/24/2021 9:21 AM EDT Inhaled Oxygen Concentration - - Weight 83.6 kg (184 lb 6.4 oz) 07/24/2021 9:21 AM EDT Height 160 cm (5' 2.99) 07/24/2021 9:21 AM EDT Body Mass Index 32.67 07/24/2021 9:21 AM EDT documented in this encounter Progress Notes Michael Romero MD - 07/24/2021 9:30 AM EDT Subjective Patient ID: Joy [...] of significant intra abdominal adhesions Path ([facility] review) - Omentum, mass, excision: - Metastatic [...] held for two weeks due to myelosuppression. Joy is accompanied to clinic today by her Romero. She is feeling fair. She has nausea at times and says she eats a jennifer cookie which does help. Her weight is a couple of pounds lower. She feels she eats pretty well although her says she doesn't eat much. She has been a bit more active since last seen. The symptoms of neuropathy are lasting longer with each cycle but still resolvecompletely between cycles. No areas of pain. The bowel habits are up and down. Soc Hx: , lives in [place], [place] Tob - Never Etoh - None Worked as [employer]. Fam Hx: Father - Mother - breast [...] and Affect: Mood normal. Labs: WBC/ANC - 5., Hgb/Hct - 12.9/40.7, Plts - 203,000. BUN/Cr - 17/0.9. Alb - 3.1. Lytes and LFTs o/w unremarkable CEA 07/24/21 pending 07/10/21 6.7 06/26/21 8.2 06/12/21 3.8 05/26/21 [...] in the pelvis. She was seen at [facility] and underwent resection on 12/05/2019 - path [...] the absence of cold, laryngeal dysesthesia, fatigue, angina/[place], hypersensitivity reactions and others.?She was given informationalhandouts [...] Michael Romero MD [facility] ONCOLOGY [place], [place] [address] (Wo rk) 11/06/2021 Infusion Hematology and Oncology documented as of this encounter Visit Diagnoses Diagnosis Adenocarcinoma of ileum Malignant neoplasm of ileum Stage IV adenocarcinoma of small bowel Malignant neoplasm of small intestine, u nspecified site documented in this encounter Care Teams Roofing Apprentice Relationship Specialty Start Date End Date None PCP - General 12/03/19 None documented as of this encounter
--- OUTSIDE RECORDS SUMMARY | 2021-11-06 01:24 | XMS_ITS | Encounter Summary ---
:1940 Author Organization [facility] [place] [address] Care Team Providers Name Role Phone None Primary Care Provider Unavailable Encounter Details Date Type Department Care Team Description 08/21/2021 Office Visit Hematology/Oncology Aaron Romero MD [facility] [place] [address] Adenocarcinoma of small at [facility] Mckenna Farris APRN [address] [place] [address] [place] [address] intestine, stage [address] [place] [phone] Social History Tobacco Use Types Packs/Day Years Used Date Never Smoker Smokeless Tobacco: Never Used Sex Assigned at Date Recorded Not on file documented as of this encounter Last Filed Vital Signs Vital Sign Reading Time Taken Comments Blood Pressure 131/67 08/21/2021 10:21 AM EDT Pulse 85 08/21/2021 10:21 AM EDT Temperature 36.5 ??C (97.7 ??F) 08/21/2021 10:21 AM EDT Respiratory Rate 18 08/21/2021 10:21 AM EDT Oxygen Saturation 98% 08/21/2021 10:21 AM EDT Inhaled Oxygen Concentration - - Weight 82.3 kg (181 lb 6.4 oz) 08/21/2021 10:21 AM EDT Height 160 cm (5' 2.99) 08/21/2021 10:21 AM EDT Body Mass Index 32.14 08/21/2021 10:21 AM EDT documented in this encounter Progress Notes Mckenna Farris, LEGAL EXECUTIVE ASSISTANT - 08/21/2021 10:30 AM EDT Subjective Patient ID: Joy [...] loop ileostomy, rigid proctosigmoidoscopy, bladder resection, JOSE ROBRETO/BSO Findings: Locally invasive tumor involving terminal illeum, [...] because of significant intra abdominal adhesions Path ([facility] [place]) - Omentum, mass, excision: - Metastatic [...] for two weeks due to myelosuppression. INTERVAL HISTORY/SUBJECTIVE(08/21/21): Joy returns to clinic today to continue treatment. She is by herself today. She is feeling fair. She has nausea at times and says she eats a jennifer cookie which does help. Weight is stable. She has been a bit more active since last seen trying to do some walking but she is having difficulty with herright knee which affects her right ankle and then she has pain in the right leg. The symptoms of neuropathy are lasting longer with each cycle but still resolve completely between cycles. No other areas of pain. She has intermittent loose stools and then formed soft stools. No bleeding. No fevers chills or signs of infection. She is complaining of itchy runny eyes today. Soc Hx: , lives in [place], [place] Tob - Never Etoh - None Worked as [employer]. Fam Hx: Father - Mother - breast [...] HENT: Negative. Respiratory: Negative. Cardiovascular: Negative. Gastrointestinal: Negative for abdominal pain (RLQ). Musculoskeletal: Negative. Right knee and ankle pain. Skin: Negative. Neurological: Negative. Hematological: Negative. Psychiatric/Behavioral: Negative. Objective Physical Exam Vitals reviewed. Constitutional: General: She is not in acute distress. HENT: Head: Normocephalic and atraumatic. Mouth/Throat: Pharynx: Oropharynx is clear. No oropharyngeal exudate. Eyes: General: No scleral icterus. Cardiovascular: Rate and Rhythm: Normal rate and regular rhythm. Pulmonary: Effort: Pulmonary effort is normal. No respiratory distress. Breath sounds: No rales. Comments: Scattered wheezes at bases. Chest: Breasts: Right: No supraclavicular adenopathy. Left: No supraclavicular adenopathy. Abdominal: General: There is no distension. Palpations: There is no mass (poorly defined, RLQ). Tenderness: There is [...] normal. Wt Readings from Last 3 Encounters: 08/21/21 82.3 kg (181 lb 6.4 oz) 08/07/21 83.6 kg (184 lb 4.9 oz) 07/24/21 83.6 kg (184 lb 6.4 oz) Labs: 08/21/21- WBC-3.51 Hgb/Hct-11.8/36.5 Plt-131 ANC-1.16 Na-140 K+-3.9 BUN/Cr-11/0.8 Glucose-96 Ca-8.9 T. Bili-0.5 AST-30 ALT-31 Alk phos-102 Albumin-3.0 08/07/21- WBC-4.13 Hgb/Hct-12.0/37.7 Plt-137 ANC-2.00 Na-142 K+3.7 BUN/Cr-12/0.8 Glucose-105 Ca-8.6 T. Bili-0.5 AST-28 ALT-29 Alk phos-104 Albumin-3.0 WBC/ANC - 5., Hgb/Hct - 12.9/40.7, Plts - 203,000. BUN/Cr - 17/0.9. Alb - 3.1. Lytes and LFTs o/w unremarkable CEA 08/07/21 5.1 07/24/21 4.2 07/10/21 6.7 06/26/21 [...] in the pelvis. [place] [facility] [place] on [...] the absence of cold, laryngeal dysesthesia, fatigue, angina/[place], hypersensitivity reactions and others.?She was given informationalhandouts [...] the omental biopsy - BRAF V600E mutation. 08/21/21- Labs and toxicities assessed today. Treatment held today for mild neutropenia. We will plan to restage her in October. Delay C6 FOLFOX with omission of 5FU bolus by one week for neutropenia. Stand alone visit in one week with labs and C6. documented in this encounter Plan of Treatment Upcoming Encounters Date Type Specialty Care Team Description 11/06/2021 Office Visit Hematology and Oncology Michael Romero MD [facility] DR ONCOLOGY [place], [place] [address] (Wo rk) 11/06/2021 Infusion Hematology and Oncology documented as of this encounter Visit Diagnoses Diagnosis Adenocarcinoma of small intestine, stage 4 Malignant neoplasm of small intestine, u nspecified site Stage IV adenocarcinoma of small bowel Malignant neoplasm of small intestine, u nspecified site documented in this encounter Care Teams Dramatic Critic Relationship Specialty Start Date End Date None PCP - General 12/03/19 None documented as of this encounter
--- OUTSIDE RECORDS SUMMARY | 2021-11-06 01:24 | XMS_ITS | Encounter Summary ---
:1940 Author Organization [facility] [place] [address] Care Team Providers Name Role Phone None Primary Care Provider Unavailable Reason for Referral Diagnostic Test (Routine) - Authorized Specialty Diagnoses / Procedures Referred By Contact Refer red To Contact Radiology Diagnoses Adenocarcinoma of small intestine, stage 4 Michael Romero MD Procedures CT Chest Abdomen Pelvis w Contrast (Generic) [facility] [place] [address] Referral ID Status Reason Start Expiration Visits Visits Date Date Requested Authorized [id number] Authorized Specialty 07/10/2021 01/09/2023 1 1 Service Requested Encounter Details Date Type Department Care Team Description 07/10/2021 Office Visit Hematology/Oncology Aaron Romero MD [facility] [place] [address] [facility] [address] [place] [address] MEDICAL ONCOLOGY [place], [place] [id number] intestine, stage [address] [place] [phone] Social History Tobacco Use Types Packs/Day Years Used Date Never Smoker Smokeless Tobacco: Never Used Sex Assigned at Date Recorded Not on file documented as of this encounter Last Filed Vital Signs Vital Sign Reading Time Taken Comments Blood Pressure 149/69 07/10/2021 9:23 AM EDT Pulse 77 07/10/2021 9:23 AM EDT Temperature 36.3 ??C (97.3 ??F) 07/10/2021 9:23 AM EDT Respiratory Rate 18 07/10/2021 9:23 AM EDT Oxygen Saturation 98% 07/10/2021 9:23 AM EDT Inhaled Oxygen Concentration - - Weight 86.5 kg (190 lb 12.8 oz) 07/10/2021 9:23 AM EDT Height 160 cm (5' 2.99) 07/10/2021 9:23 AM EDT Body Mass Index 33.81 07/10/2021 9:23 AM EDT documented in this encounter Progress Notes Michael Romero MD - 07/10/2021 10:00 AM EDT Subjective Patient ID: Joy Armstrong [...] because of significant intra abdominal adhesions Path ([facility] review) - Omentum, mass, excision: - Metastatic [...] 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 I 05/26/21 - Began therapy with Folfox, s/p 3 cycles. 2. Hypothyroidism 3. Hyperlipidemia 4. ELVER 5. Bowel perforation which pt's thinks was related to a colonoscopy. Required emergent surgery. 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 The history is summarized above. She is receiving chemotherapy with Folfox. Joy is accompanied to clinic today by her Romero. She is feeling generally well. She has fatigue which is her main complaint. but generally has tolerated chemotherapy well. She is eating pretty well and her weight is stable/slightly higher. At time she notes that her taste is off but not all the time. The symptoms of neuropathy are lasting longer with each cycle but still resolve completely between cycles. No areas of pain. She has had occasional loose stools. She has used immodium on oneoccasion. No fevers or chills. She feels cold much of the time which is not a change for her. Soc Hx: , lives in [place], [place] Tob - Never Etoh - None Worked as [employer] and [employer]. Fam Hx: Father - Mother - breast [...] and Affect: Mood normal. Labs: WBC/ANC - 2., Hgb/Hct - 11.5/35.7, Plts - 106,000. BUN/Cr - 12/0.8. Alb - 2.9. Lytes and LFTs o/w unremarkable CEA 07/10/21 pending 06/26/21 8.2 06/12/21 3.8 05/26/21 3.1 04/22/21 3.6 10/26/19 1.5 Assessment & Plan Joy Armstrong is 80 [...] in the pelvis. She was seen [place] [facility] and underwent resection on 12/05/2019 - path [...] the absence of cold, laryngeal dysesthesia, fatigue, angina/VA, hypersensitivity reactions and others.?She was given informationalhandouts [...] began therapy with Folfox, s/p 3 cycles. She is tolerating treatment pretty well. HerWBC/ANC are low. We talked about options - hold chemotherapy and recheck next week vs treating todaywith reduced dose. Affter discussion, we plan to hold today. We will schedule her for chemotherapy next week, assuming labs are ok and I will then see her back in three weeks with a restaging CT scan. NGS was performed on the omental biopsy - BRAF [id number] mutation. documented in this encounter Plan of Treatment Upcoming Encounters Date Type Specialty Care Team Description 11/06/2021 Office Visit Hematology and Oncology Michael Romero MD [facility] DR ONCOLOGY [place] [address] (Wo rk) 11/06/2021 Infusion Hematology and Oncology Scheduled Orders Name Type Priority Associated Diagnoses Order S chedule CT Chest Abdomen Imaging Routine Adenocarcinoma of small Expected: 07/29/2021 Pelvis w Contrast intestine, stage 4 (Fabienne roximate), (Generic) Expires: 2021 documented as of this encounter Visit Diagnoses Diagnosis Adenocarcinoma of small intestine, stage 4 Malignant neoplasm of small intestine, u nspecified site Stage IV adenocarcinoma of small bowel Malignant neoplasm of small intestine, u nspecified site documented in this encounter Care Teams Director Of Business Development Relationship Specialty Start Date End Date None PCP - General 12/03/19 None documented as of this encounter
--- OUTSIDE RECORDS SUMMARY | 2021-11-06 01:24 | XMS_ITS | Encounter Summary ---
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 colon cancer with [facility] metastasis to other site [address] [place] [phone] Social History Tobacco Use Types Packs/Day Years Used Date Never Smoker Smokeless Tobacco: Never Used Sex Assigned at Date Recorded Not on file documented as of this encounter Progress Notes Diann Baker RN - 10/23/2021 12:30 PM EDT INFUSION THERAPY ADMINISTRATION NOTES DIAGNOSIS: GI Colorectal CA CYCLE #:Cycle 10 Day 1 REASON FOR VISIT: FOLFOX infusion and initiation of continunous home 5FU infusion via CADD pump provided by [employer] SUBJECTIVE Joy offers no complaints. She met with Dr. Romero prior to infusion. Ready for treatment OBJECTIVE LAB DATA: Labs reviewed and found adequate for treatment. WBC 4.23; PLT 117; ANC 1.72; BUN 12; Creat 0.8 Pre administration: Chemotherapy orders independently verified for drug name, route, and dosage per patient's height, weight and BSA by RN, Lita Cross RN, and pharmacist on site. At time of administration Patient identity verified using patient's name and date of at the chair/bedside by double RN check just prior to initiating the patient's home infusion chemotherapy via CADD pump provided by [employer] Fluorouracil 2280 mg over 46 hours, IV via CADD pump. Amount infused verified by double RN check after 15 minutes and appropriate amount had infused. REACTIONS (DESCRIPTION, TIME, INTERVENTION AND EFFECTIVENESS) none ASSESSMENT Joy was awake, alert and tolerated treatment well. Port checked for patency and blood return on each use. Provided home disconnect kit. Disconnect due at 1:08pm on 10/25/21. PLAN Return to clinic as scheduled. documented in this encounter Plan of Treatment Upcoming Encounters Date Type Specialty Care Team Description 11/06/2021 Office Visit Hematology and Oncology Michael Romero MD [facility] DR ONCOLOGY [place] [address] (Wo rk) 11/06/2021 Infusion Hematology and Oncology [...] Rate Site dexAMETHasone (Decadron) tablet 10 Given 10/23/2021 12:49 PM EDT 10 mg mg 10 mg, Oral, ONCE, 1 dose, On Tue10/23/21 at 1300, Administer prior to chemotherapy, Routine fluorouraciL (AdruciL) in sodium Given 10/23/2021 3:08 PM EDT 2, 280 mg 3 mL/hr chloride 0.9% 138 mL infusion (46 Hour - For Home Use) 2,280 mg 2,280 mg (1,200 mg/m2/dose ? 1.9 m2 Treatment Plan BSA from Recorded weight), Intravenous, ONCE, 1 dose, On Tue10/23/21 at 1530, Administer over 46 Hours, Warning Vesicant/Irritant Medication To be infused via an ambulatory infusion CADD Legacy Plus pump continuously IV at 3 mL/hr for 46 hours. Pump contains a 46 hour supply and provides 1,200 mg/m2 over 46 hours. leucovorin 350 mg in dextrose 5% 85 New Bag 10/23/2021 1:24 PM EDT 350 mg 60 mL/hr mL infusion 350 mg, Intravenous, ONCE, 1 dose, On Tue10/23/21 at 1400, Administer over 85 Minutes, May Y-site with OXALIplatin Do not administer at a rate faster than 160 milligrams/minute. OXALIplatin (Eloxatin) 100 mg in New Bag 10/23/2021 1:24 PM ED T 100 mg 190.6 mL/hr dextrose 5% 270 mL infusion 100 mg, Intravenous, ONCE, 1 dose, On Tue10/23/21 at 1400, Administer over 85 Minutes, Dose Ordered = 105 mg (55 mg/m2). Pharmacist rounded dose per procedure (Re-ordered by MD/NICOLE). Compatible with dextrose-containing solution only. Warning Vesicant/Irritant Medication palonosetron (Aloxi) (0.05 mg/mL) injection Given 10/03 12:53 PM EDT 0.25 mg 0.25 mg 0.25 mg, Intravenous, ONCE, 1 dose, On Tue10/23/21 at 1300, Administer over 30 seconds. Administer prior to chemotherapy, Routine documented in this encounter Care Teams Manager Strategic Relationship Specialty Start Date End Date None PCP - General 12/03/19 None documented as of this encounter
--- OUTSIDE RECORDS SUMMARY | 2021-11-06 01:24 | XMS_ITS | Encounter Summary ---
:1940 [place] [address] Care Team Providers Name Role Phone None Primary Care Provider Unavailable Encounter Details Date Type Department Care Team Description 10/01/2021 Ancillary Procedure Radiology Library at Jorge Romero [facility] [place] [address] ONCOLOGY [phone] [place], [place] [address] (Wo rk) Social History Tobacco Use Types Packs/Day Years Used Date Never Smoker Smokeless Tobacco: Never Used Sex Assigned at Date Recorded Not on file documented as of this encounter Plan of Treatment Upcoming Encounters Date Type Specialty Care Team Description 11/06/2021 Office Visit Hematology and Oncology Michael Romero MD [facility] [address] [place], [place] [address] (Wo rk) 11/06/2021 Infusion Hematology and Oncology documented as of this encounter Procedures Procedure Name Priority Date/Time Associated Diagnosis Comme nts FILM LIBRARY Routine 10/01/2021 12:41 PM Results for this STORAGE ONLY CT EDT procedure ar e in CHEST ABDOMEN the results PELVIS section. documented in this encounter Results Film Library- Storage Only CT Chest Abdomen Pelvis (10/01/2021 12:41 PM EDT) Specimen (Source) Anatomical Location Collection Method / Collectio n Time Received Time / Laterality Volume Narrative RAD - 10/01/2021 12:41 PM EDT This exam is auto-finalizing. It's purpo se is for storage only. Michael Romero MD IMG FILM LIBRARY ORDERABLES Performing Organization Address City/State/ZIP Code Phon e Number DH RAD DH RAD [place], [place] documented in this encounter Visit Diagnoses Not on filedocumented in this encounter Care Teams Machine Stapler Relationship Specialty Start Date End Date None PCP - General 12/03/19 None documented as of this encounter
--- OUTSIDE RECORDS SUMMARY | 2021-11-06 01:24 | XMS_ITS | Encounter Summary ---
:1940 Author Organization [facility] [address] Care Team Providers Name Role Phone None Primary Care Provider Unavailable Encounter Details Date Type Department Care Team Description 05/26/2021 Notes Only Hematology/Oncology at Claudia Gomes, SECOND WATCH SERGEANT [facility] OFFICE OF CARE [address] [place] [phone] Social History Tobacco Use Types Packs/Day Years Used Date Never Smoker Smokeless Tobacco: Never Used Sex Assigned at Date Recorded Not on file documented as of this encounter Progress Notes Claudia Gomes MSW - 05/26/2021 11:22 AM EST Reason for Referral: Brief assessment of social and emotional needs. Met with pt during her first infusion to introduce myself and role of licensed master social worker to assess/address barriers to getting to and through treatments; address support needs and connect with community services and resources as needed. Family/Social Supports: Pt identified her of 37 years as her primary support. Pt has 2 children who live out of state. Two of pt's sons have passed. Her has 3 children and 2 are local to them. Living Situation/Daily Activities/Transportation: Pt indicated she and her manage their daily chores and activities. She does not expect issues with transportation. He will transport her. There may be some conflicts as they both have appointments on Fridays. Did provide information about RCT services. Pt is also concerned about the cost of travel. Assisted with 1/$25 gas card. With pt's permission will apply to the [place] [facility]/[employer] [facility] for gas cards. 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 She has Medicare A&B. She indicated she has applied for financial assistance through [facility] Advance Directives: Pt has not completed her advance directive. She does have the information at home. Offered assistance if interested in completing. Utilization of Community Resources: Pt had VNA services after her surgery. Adjustment to Illness/Mental Health Concerns: Pt indicated she is coping as best she can. She feels the same about her . Pt was a bit weepy as she talked about the sons who have passed. Offered support. Identified Needs: Pt did not identify any specific needs at this time. Referrals: None at this time. Social Work Interventions: Brief assessment Supportive Counseling Advance care planning Financial resources Transportation resources Plan: Informed pt of SECOND WATCH SERGEANT availability and contact information. Will follow to assess/address psychosocial needs. KENA Bryan, LOCAL OWNER OPERATOR TRUCK DRIVER, OSW-C Book Jogger [facility] Add: [place] [facility]/[employer] [facility] janette be mailing pt a few gas cards. Pt was informed and is appreciative of this help. documented in this encounter Plan of Treatment Upcoming Encounters Date Type Specialty Care Team Description 11/06/2021 Office Visit Hematology and Oncology Michael Romero MD [facility] ONCOLOGY [place], [place] [address] (Wo rk) 11/06/2021 Infusion Hematology and Oncology documented as of this encounter Visit Diagnoses Not on filedocumented in this encounter Care Teams Roll Reclaimer Relationship Specialty Start Date End Date None PCP - General 12/03/19 None documented as of this encounter
--- OUTSIDE RECORDS SUMMARY | 2021-11-06 01:24 | XMS_ITS | Encounter Summary ---
:1940 Author Organization [facility] [place] [address] Care Team Providers Name Role Phone None Primary Care Provider Unavailable Encounter Details Date Type Department Care Team Description 06/26/2021 Office Visit Hematology/Oncology Aaron Romero MD [facility] [place] [address] Stage IV adenocarcinoma at [facility] Mckenna Farris APRN [address] [place] [address] [place] [address] of small bowel [address] [place] [phone] Social History Tobacco Use Types Packs/Day Years Used Date Never Smoker Smokeless Tobacco: Never Used Sex Assigned at Date Recorded Not on file documented as of this encounter Last Filed Vital Signs Vital Sign Reading Time Taken Comments Blood Pressure 125/60 06/26/2021 9:42 AM EDT Pulse 94 06/26/2021 9:42 AM EDT Temperature 36.2 ??C (97.2 ??F) 06/26/2021 9:42 AM EDT Respiratory Rate 16 06/26/2021 9:42 AM EDT Oxygen Saturation 98% 06/26/2021 9:42 AM EDT Inhaled Oxygen Concentration - - Weight 85.9 kg (189 lb 6.4 oz) 06/26/2021 9:42 AM EDT Height 160 cm (5' 2.99) 06/26/2021 9:42 AM EDT Body Mass Index 33.56 06/26/2021 9:42 AM EDT documented in this encounter Progress Notes Mckenna Farris MACHINE HEEL SPRAYER - 06/26/2021 10:00 AM EDT Subjective Patient ID: Joy [...] the pelvis. ?? She was seen at [facility] and underwent resection on 12/05/2019 - path [...] the absence of cold, laryngeal dysesthesia, fatigue, angina/ND, hypersensitivity reactions and others.?She??was given informational handouts [...] shows likely additional metastatic abdominal nodules. Interval HPI(06/26/21)- Joy returns to clinic today to continue treatment for CRC. She is by herself today. No fevers, chills or signs of infection. She had a couple of brief feelings of nausea but did not need to take any medication- it went right away. She eats jennifer cookies which settle her stomach. She states she iseating and drinking well. Weight is up 3 #. She has mild constipation but is managing this well. No diarrhea. She denies pain. No sores in mouth or difficulty swallowing. No chest pain or changes in breathing. She has bilateral LE swelling R>L but states that is her normal - she fractured her rightleg in the past. She denies numbness or tingling in extremities but states it feels funny in my fee t when walking- like its squishy but only in these shoes. No other focal complaints today. Allergies Allergen Reactions ??? Shellfish Derived swelling ??? Sulfamethoxazole-Trimethoprim ??? Sulfasalazine Current Medications ??? magnesium 250 mg Tablet ??? prochlorperazine (Compazine) 10 mg Tablet ??? ferrous sulfate 325 mg (65 mg iron) Tablet ??? Boost High Protein 0.06 gram- 1 kcal/mL Liquid ??? levothyroxine (Synthroid) 100 mcg Tablet ??? simvastatin (Zocor) 10 mg Tablet ??? tolterodine LA (Detrol LA) 4 mg Capsule, Sust. Release 24 hr ??? cyanocobalamin, Vitamin B-12, (Vitamin B-12) 100 mcg Tablet ??? Cod Liver Oil Oil ??? cholecalciferol, Vitamin D3, 25 mcg (1,000 unit) Capsule ??? ascorbic acid, vitamin C, (VITAMIN C) 100 mg Tablet ??? mometasone (ELOCON) 0.1 % Ointment ??? oxybutynin (Ditropan) 5 mg Tablet No current facility-administered medications for this visit. ??? fluorouraciL (AdruciL) in sodium chloride 0.9% 138 mL infusion (46 Hour - For Home Use) 3,438 mg ??? OXALIplatin (Eloxatin) 122 mg in dextrose 5% 274.4 mL infusion ??? leucovorin 350 mg in dextrose 5% 85 mL infusion ??? fluorouraciL (ADRUCIL) chemo injection 382 mg Social History Tobacco Use ??? Smoking status: Never Smoker ??? Smokeless tobacco: Never Used Vaping Use ??? Vaping Use: Never used ROS negative except for what is noted in interval history Objective Physical Exam Vitals reviewed. Constitutional: Appearance: [...] abdominal tenderness. Comments: Well healed abdominal incisions. Mid abdominal tenderness on palpation - no mass Musculoskeletal: Right lower leg: Edema present. Left lower leg: Edema present. Comments: Bilateral LE edema R>l Skin: General: Skin is warm and dry. Neurological: Mental Status: She is alert and oriented to person, place, and time. Coordination: Coordination normal. Psychiatric: Mood and Affect: Mood normal. Thought Content: Thought content normal. BP 125/60 (Patient Position: Sitting) Pulse 94 Temp 36.2 ??C (97.2 ??F) (Temporal) Resp 16 Ht 160 cm (5' 2.99) Wt 85.9 kg (189 lb 6.4 oz) SpO2 98% BMI 33.56 kg/m?? Wt Readings from Last 3 Encounters: 06/26/21 85.9 kg (189 lb 6.4 oz) 06/12/21 84.5 kg (186 lb 3.2 oz) 05/28/21 82.6 kg (182 lb 3.2 oz) LABS 06/26/21- WBC-3.83 Hgb/Hct-12.2/37.5 Plt-119 ANC-2.27 Na-143 K+-3.5 BUN/cr-17/0.8 Glucose-120 Ca-8.8 T. Bili-0.4 AST-33 ALT-40 Alk phos-90 Albumin-2.8 06/12/21- WBC-4.25 Hgb/Hct-13.1/40.8 Plt-221 ANC-1.97 Ca-9.1 Glucose-109 BUN/Cr-11/0.9 Albumin-3.0 T. Bili-0.5 Alk phos-94 Na-141 K+- 4.0 AST-28 ALT-32 05/20/21 WBC 5.2; ANC 3.10; H/H 14.7/45/2; PLT 355; BUN 12; CREAT 0.8; ALP 156; AST 30; ;ALT 63; CEA 06/12/21- 3.8 05/20/21 - 2.9 Assessment & Plan Joy [...] metastatic abdominal nodules. Joy returns today for C3 FOLFOX. She is tolerating the treatments well. Labs and toxicities assessed and we will proceed with C3 today as planned. She has some mild neuropathy in her feet and occasional nausea. Plan: Follow up visit in 2 weeks with CBC,CMP, MG and C3 FOLFOX. Joy voiced understanding of the plan and was given an opportunity to ask questions which I answered to the best of my ability. Joy understands she can call the clinic between visits with any questions/concerns or new symptoms. 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
--- OUTSIDE RECORDS SUMMARY | 2021-11-06 01:24 | XMS_ITS | Encounter Summary ---
:1940 Author Organization [facility] [place] [address] Care Team Providers Name Role Phone None Primary Care Provider Unavailable Encounter Details Date Type Department Care Team Description 10/23/2021 Office Visit Hematology/Oncology Michael Romero Stage IV adenocarcinoma at [facility] MD Indy of small bowel [address] [place] [phone] ONCOLOGY [phone] [place], [place] [address] Social History Tobacco Use Types [...] Mass Index 31.89 10/23/2021 11:51 AM EDT documented in this encounter Progress Notes Michael Romero MD - 10/23/2021 12:00 PM EDT Subjective Patient ID: Joy Armstrong is [...] because of significant intra abdominal adhesions Path ([facility] review) - Omentum, mass, excision: - Metastatic [...] 05/26/21 - Began therapy with Folfox, s/p [address] c/a/p 07/22/21 Chest - [...] above. She is receiving chemotherapy with Folfox. Jyo is accompanied to clinic today by her Romero. She is feeling generally well. Her maincomplaint at this time is fatigue. This seems to be about the same. 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 This is getting worse with time. She has mild nausea at times, relieved with jennifer cookies. No vomiting and no diarrhea. Her weight is stable. Soc Hx: , lives in [place], [place] Tob - Never Etoh - None Worked as [employer]. Fam Hx: Father - Mother - breast [...] and Affect: Mood normal. Labs: WBC/ANC - 4., Hgb/Hct - 11.7/35.7, Plts - 117,000. BUN/Cr - 12/0.8. Alb - 3.0. Lytes and LFTs o/w unremarkable CEA 10/23/21 pending 10/09/21 4.0 09/25/21 4.3 09/11/21 3.8 08/28/21 3.4 08/21/21 4.3 08/07/21 5.1 07/24/21 4.2 07/10/21 6.7 06/26/21 8.2 06/12/21 3.8 05/26/21 3.1 04/22/21 3.6 10/26/19 1.5 Assessment & Plan Joy Armstrong is 81 [...] in the pelvis. She was seen at [facility] and underwent resection on 12/05/2019 - path [...] difficult procedure for her to go through. A restaging CT scan was done on 05/05/21 - there was a new pleural based nodule on the left and new areas of nodularity in the intraperitoneal space and along the surgical scar in the right lower quadrant and upper vaginal cuff, suspicious for metastases. On 05/26/21 she began therapy with Folfox, s/p [address] was done on 10/01/21 and was stable. She is tolerating treatment pretty well, but has had dose delays due to myelosuppression resulting in dose reduction. The labs are adequate and we will proceed with treatment today at the same dose. The symptoms of neuropathy are slowly worsening over time. We discussed this. She and her are very clear that they would like to see her continue the oxaliplatin at this time. NGS was performed on the omental biopsy - BRAF [id number] mutation. 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
--- OUTSIDE RECORDS SUMMARY | 2021-11-06 01:24 | XMS_ITS | Encounter Summary ---
:1940 Author Organization [facility] [place] [address] Care Team Providers Name Role Phone None Primary Care Provider Unavailable Reason for Referral Diagnostic Test (Routine) - Authorized Specialty Diagnoses / Procedures Referred By Contact Refer red To Contact Radiology Diagnoses Adenocarcinoma of small intestine, stage 4 Michael Romero MD Procedures CT Chest Abdomen Pelvis w Contrast (Generic) [facility] [place] [address] Referral ID Status Reason Start Expiration Visits Visits Date Date Requested Authorized [id number] Authorized Specialty 09/25/2021 03/27/2023 1 1 Service Requested Encounter Details Date Type Department Care Team Description 09/25/2021 Office Visit Hematology/Oncology Michael Romero Adeno carcinoma of small at [facility] MD Indy intestine, stage [address] [place] [phone] ONCOLOGY [phone] [place], [place] [address] Social History Tobacco Use Types Packs/Day Years Used Date Never Smoker Smokeless Tobacco: Never Used Sex Assigned at Date Recorded Not on file documented as of this encounter Last Filed Vital Signs Vital Sign Reading Time Taken Comments Blood Pressure 122/62 09/25/2021 10:12 AM EDT Pulse 82 09/25/2021 10:12 AM EDT Temperature 36.2 ??C (97.2 ??F) 09/25/2021 10:12 AM EDT Respiratory Rate 18 09/25/2021 10:12 AM EDT Oxygen Saturation 97% 09/25/2021 10:12 AM EDT Inhaled Oxygen Concentration - - Weight 82.7 kg (182 lb 6.4 oz) 09/25/2021 10:12 AM EDT Height 160 cm (5' 2.99) 09/25/2021 10:12 AM EDT Body Mass Index 32.32 09/25/2021 10:12 AM EDT documented in this encounter Progress Notes Michael Romero MD - 09/25/2021 10:30 AM EDT Subjective Patient ID: Joy [...] because of significant intra abdominal adhesions Path ([facility] review) - Omentum, mass, excision: - Metastatic [...] 05/26/21 - Began therapy with Folfox, s/p [address] c/a/p 07/22/21 Chest - [...] two weeks due to myelosuppression. Joy is by herself in clinic today. Her Romeor drove her here but had a low BS and went toget something to eat. She says she is feeling pretty well and has had a good week. She has had problems with diarrhea after treatment but that was less after the most recent cycle. She has low grade nausea most of the time. She chews gum and eats jennifer cookies which help. Her weight is in the same range. She generally does not have pain but her abdomen may bother her if she does something that requires a lot of stretching of the abdomen. She has cold sensitive neuropathy which is still there now but no symptoms without cold exposure. This is staying about the same. Soc Hx: , lives in [place], [place] Tob - Never Etoh - None Worked as [employer]. Fam Hx: Father - Mother - [...] normal. Labs: WBC/ANC - 4., Hgb/Hct - 11.4/35.9, Plts - 135,000. BUN/Cr - 12/0.8. Alk phos - 120, Alb- 2.8. Lytes and LFTs o/w unremarkable CEA 09/25/21 pending 09/11/21 3.8 08/28/21 3.4 08/21/21 4.3 08/07/21 [...] in the pelvis. [place] [facility] [place] on 12[place]05/2019 - [...] the absence of cold, laryngeal dysesthesia, fatigue, angina/MO, hypersensitivity reactions and others.?She was given informationalhandouts [...] 05/26/21 she began therapy with Folfox, s/p [address] was done on 07/22/21 and is stable or perhaps slightly Improved. She is tolerating treatment pretty well, but has had dose delays due to myelosuppression resulting in dose reduction. The labs are adequate and we will proceed with treatment today at the same dose. Sophie see her back in two weeks with a restaging CT scan prior to that visit, assuming this can be done with contrast. NGS was performed on the omental biopsy - BRAF [id number] mutation. documented in this encounter Plan of Treatment Upcoming Encounters Date Type Specialty Care Team Description 11/06/2021 Office Visit Hematology and Oncology Michael Romero MD [facility] ONCOLOGY [place], [place] [address] (Wo rk) 11/06/2021 Infusion Hematology and Oncology Scheduled Orders Name Type Priority Associated Diagnoses Order S chedule CT Chest Abdomen Imaging Routine Adenocarcinoma of small Expected: 10/07/2021 Pelvis w Contrast intestine, stage 4 (Fabienne roximate), (Generic) Expires: 2022 documented as of this encounter Visit Diagnoses Diagnosis Adenocarcinoma of small intestine, stage 4 Malignant neoplasm of small intestine, u nspecified site Stage IV adenocarcinoma of small bowel Malignant neoplasm of small intestine, u nspecified site documented in this encounter Care Teams Prototype Carpenter Relationship Specialty Start Date End Date None PCP - General 12/03/19 None documented as of this encounter
--- OUTSIDE RECORDS SUMMARY | 2021-11-06 01:24 | XMS_ITS | Encounter Summary ---
:1940 Author Organization [facility] Address [place] [id number] Care Team Providers Name Role Phone None Primary Care Provider Unavailable Reason for Visit Reason Comments IV Access Port flush Encounter Details Date Type Department Care Team Description 06/29/2021 Infusion Hematology Oncology at [facility] colon cancer with [facility] metastasis to other site [address] [place] [phone] Social History Tobacco Use Types Packs/Day Years Used Date Never Smoker Smokeless Tobacco: Never Used Sex Assigned at Date Recorded Not on file documented as of this encounter Progress Notes Diann Baker RN - 06/29/2021 10:00 AM EDT INFUSION THERAPY ADMINISTRATION NOTES DIAGNOSIS: Colorectal cancer REASON FOR VISIT: MEDIPORT FLUSH ONLY. Joy is here for port flush following 5FU home infusion. Herhusband states I couldn't bring myself to put all that stuff into her referring to the saline flushes and heparin flush (see telephone note). Reinforced teaching on how to flush the port, on the importance and rationale of flushing the port after the home infusion. Patient and expressed understanding of the teaching. IV ACCESS: Mediport GAUGE: 19G BLOOD RETURN: yes ANY S/S OF INFECTION/EXTRAVASATIONS: no signs of IV complications observed IV FLUSHED WITH: 20cc NS and 500 units Heparin IV DISCONTINUED: yes ASSESSMENT: Patient tolerated treatment well. Reminded to call the clinic or [facility] with any questions or concerns. PLAN: Return to clinic per routine. 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
--- OUTSIDE RECORDS SUMMARY | 2021-11-06 01:24 | XMS_ITS | Encounter Summary ---
:1940 Author Organization [facility] [place] [address] Care Team Providers Name Role Phone None Primary Care Provider Unavailable Reason for Visit Reason Comments Chemotherapy C1D1 Folfox Treatment/Therapy Plan Authorization (Routine) - Pending Review Specialty Diagnoses / Procedures Referred By Contact Refer red To Contact Diagnoses Primary colon cancer with metastasis to other site Michael Romero MD [facility] Hem Onc Infusion [address] [place] [phone] Fax: Referral ID Status Reason Start Date Expiration Date Visits V isits Requested Authorized [id number] Pending 05/08/2021 05/08/2022 99 99 Review Encounter Details Date Type Department Care Team Description 05/26/2021 Infusion Hematology Oncology at [facility] colon cancer with [facility] metastasis to other site [address] [place] [phone] Social History Tobacco Use Types Packs/Day Years Used Date Never Smoker Smokeless Tobacco: Never Used Sex Assigned at Date Recorded Not on file documented as of this encounter Last Filed Vital Signs Vital Sign Reading Time Taken Comments Blood Pressure 135/64 05/26/2021 10:34 AM EST Pulse 90 05/26/2021 10:34 AM EST Temperature 36.3 ??C (97.3 ??F) 05/26/2021 10:34 AM EST Respiratory Rate 20 05/26/2021 10:34 AM EST Oxygen Saturation 98% 05/26/2021 10:34 AM EST Inhaled Oxygen Concentration - - Weight 84 kg (185 lb 3.2 oz) 05/26/2021 10:34 AM EST Height 160 cm (5' 3) 05/26/2021 10:34 AM EST Body Mass Index 32.81 05/26/2021 10:34 AM EST documented in this encounter Progress Notes Diann Baker RN - 05/26/2021 11:00 AM EST INFUSION THERAPY ADMINISTRATION NOTES DIAGNOSIS: Colorectal Cancer CYCLE #: C1D1 REASON FOR VISIT: FOLFOX infusion and initiation of continunous home 5FU infusion via CADD pump provided by [employer] SUBJECTIVE Joy is here for C1D1 Folflox. She offers no complaints today. OBJECTIVE LAB DATA: 05/26/21 at [facility], labs reviewed and found adequate for treatment. Pre administration: Chemotherapy orders independently verified for drug name, route, and dosage per patient's height, weight and BSA by Ifeanyi Baker RN and pharmacist onsite At time of administration Patient identity verified using patient's name and date of at the chair/bedside by double RN check just prior to initiating the patient's home infusion chemotherapy via CADD pump provided by [employer]. Fluorouracil 3438 mg over 46 hours, IV via CADD pump. Amount infused verified by double RN check after 15 minutes and appropriate amount had infused. REACTIONS (DESCRIPTION, TIME, INTERVENTION AND EFFECTIVENESS) none ASSESSMENT Joy was awake, alert and tolerated treatment well. Provided chemo spill kit with instructions. PLAN Return to clinic 05/28/21 at 1230 for disconnect, her will attend that visit for pump disconnect teaching. Pt. chemo teaching instructions included: During clinic hours (8am-5pm Tuesday-Tuesday): pt. can call [phone] with questions or concerns. After clinic hours (5pm-8am Tuesday-Tuesday and weekends) pt can call [phone] and ask for the manager human capital/oncologist location man. She was also provided with the patient support phone number for [employer], located on the CADD pumpas well as on the chemo spill kit instructions. Joy Armstrong verbalized understanding of potential chemotherapy side effects and home care including but not limited to- handwashing to prevent infection, signs and symptoms of low blood counts (fever, fatigue, bleeding), to call with a fever of 100.4 or greater, any significant constipation/diarrhea, importance of nutrition and fluid intake (drinking at least 32-64 ounces of non-caffeinated beverages/day), mouth care. Joy Armstrong verbalized understanding of how to take prescription medications given for home use after chemotherapy. documented in this encounter Plan of Treatment Upcoming Encounters Date Type Specialty Care Team Description 11/06/2021 Office Visit Hematology and Oncology Michael Romero MD [facility] ONCOLOGY [place], [place] [address] (Wo rk) 11/06/2021 Infusion Hematology [...] Rate Site dexamethasone (Decadron) tablet 10 Given 05/26/2021 11:55 AM EST 10 mg mg 10 mg, Oral, ONCE, 1 dose, On Tue05/26/21 at 1200, Administer prior to chemotherapy, Routine fluorouraciL (ADRUCIL) chemo Given 05/26/2021 2:11 PM EST 382 mg 91.7 mL/hr injection 382 mg 382 mg (200 mg/m2/dose ? 1.91 m2 Treatment Plan BSA from Recorded weight), Intravenous, ONCE, 1 dose, On Tue05/26/21 at 1400, Administer over 5 Minutes, Warning Vesicant/Irritant Medication fluorouraciL (AdruciL) in sodium Given 05/26/2021 2:18 PM EST 3, 438 mg 3 mL/hr chloride 0.9% 138 mL infusion (46 Hour - For Home Use) 3,438 mg 3,438 mg (1,800 mg/m2/dose ? 1.91 m2 Treatment Plan BSA from Recorded weight), Intravenous, ONCE, 1 dose, On Tue05/26/21 at 1400, Administer over 46 Hours, Warning Vesicant/Irritant Medication To be infused via an ambulatory infusion CADD Legacy Plus pump continuously IV at 3 mL/hr for 46 hours. Pump contains a 46 hour supply and provides 1800 mg/m2 IV over 46 hours. leucovorin 350 mg in dextrose 5% 85 New Bag 05/26/2021 12:25 P M EST 350 mg 60 mL/hr mL infusion 350 mg, Intravenous, ONCE, 1 dose, On Tue05/26/21 at 1230, Administer over 85 Minutes, May Y-site with OXALIplatin Do not administer at a rate faster than 160 milligrams/minute. OXALIplatin (Eloxatin) 122 mg in New Bag 05/26/2021 12:[address] 122 mg 193.7 mL/hr dextrose 5% 274.4 mL infusion 122 mg (rounded from 121.7625 mg = 63.75 mg/m2/dose ? 1.91 m2 Treatment Plan BSA from Recorded weight), Intravenous, ONCE, 1 dose, On Tue05/26/21 at 1230, Administer over 85 Minutes, Compatible with dextrose-containing solution only. Warning Vesicant/Irritant Medication palonosetron (Aloxi) (0.05 mg/mL) injection Given 05/06 12:12 PM EST 0.25 mg 0.25 mg 0.25 mg, Intravenous, ONCE, 1 dose, On Tue05/26/21 at 1200, Administer over 30 seconds. Administer prior to chemotherapy, Routine documented in this encounter Care Teams Photographer Apprentice Relationship Specialty Start Date End Date None PCP - General 12/03/19 None documented as of this encounter
--- OUTSIDE RECORDS SUMMARY | 2021-11-06 01:24 | XMS_ITS | Encounter Summary ---
:1940 Author Organization [facility] [place] [address] Care Team Providers Name Role Phone None Primary Care Provider Unavailable Reason for Visit Reason Comments Chemotherapy C4D1 Folfox Treatment/Therapy Plan Authorization (Routine) - Pending Review Specialty Diagnoses / Procedures Referred By Contact Refer red To Contact Diagnoses Primary colon cancer with metastasis to other site Michael Romero MD [facility] Hem Onc Infusion [address] [place] [phone] Fax: Referral ID Status Reason Start Date Expiration Date Visits V isits Requested Authorized [id number] Pending 05/08/2021 05/08/2022 99 99 Review Encounter Details Date Type Department Care Team Description 07/24/2021 Infusion Hematology Oncology at [facility] colon cancer with [facility] metastasis to other site [address] [place] [phone] Social History Tobacco Use Types Packs/Day Years Used Date Never Smoker Smokeless Tobacco: Never Used Sex Assigned at Date Recorded Not on file documented as of this encounter Progress Notes Diann Baker RN - 07/24/2021 10:00 AM EDT INFUSION THERAPY ADMINISTRATION NOTES DIAGNOSIS: Colon CYCLE #:Cycle 4 Day 1 REASON FOR VISIT: FOLFOX infusion and initiation of continunous home 5FU infusion via CADD pump provided by [employer] SUBJECTIVE Joy offers no complaints, she met with Dr. Romero prior to infusion, ready for treatment. OBJECTIVE LAB DATA: Labs reviewed and found adequate for treatment. Pre administration: Chemotherapy orders independently verified for drug name, route, and dosage per patient's height, weight and BSA by Ifeanyi Baker RN and Marion Leon RN and staff pharmacist At time of administration Patient identity verified using patient's name and date of at the chair/bedside by double RN check just prior to initiating the patient's home infusion chemotherapy via CADD pump provided by [employer]. Fluorouracil 3438 mg over 46 hours, IV via CADD pump. Amount infused verified by double RN check after 15 minutes and appropriate amount had infused. REACTIONS (DESCRIPTION, TIME, INTERVENTION AND EFFECTIVENESS) none ASSESSMENT Joy was awake, alert and tolerated treatment well. PLAN Home disconnect on Wednesday 07/26 at 1037, home disconnect kit provided. Return to clinic per plan. documented in this encounter Plan of Treatment Upcoming Encounters Date Type Specialty Care Team Description 11/06/2021 Office Visit Hematology and Oncology Michael Romero MD [facility] ONCOLOGY [place] [address] (Wo rk) 11/06/2021 Infusion Hematology and Oncology [...] Rate Site dexamethasone (Decadron) tablet 10 Given 07/24/2021 10:12 AM EDT 10 mg mg 10 mg, Oral, ONCE, 1 dose, On Tue07/24/21 at 1015, Administer prior to chemotherapy, Routine fluorouraciL (AdruciL) in sodium Given 07/24/2021 12:37 PM EDT 3 ,438 mg 3 mL/hr chloride 0.9% 138 mL infusion (46 Hour - For Home Use) 3,438 mg 3,438 mg (1,800 mg/m2/dose ? 1.91 m2 Treatment Plan BSA from Recorded weight), Intravenous, ONCE, 1 dose, On Tue07/24/21 at 1245, Administer over 46 Hours, Warning Vesicant/Irritant Medication To be infused via an ambulatory infusion CADD Legacy Plus pump continuously IV at 3 mL/hr for 46 hours. Pump contains a 46 hour supply and provides 1800 mg/m2 IV over 46 hours. leucovorin 350 mg in dextrose 5% 85 New Bag 07/24/2021 10:53 A M EDT 350 mg 60 mL/hr mL infusion 350 mg, Intravenous, ONCE, 1 dose, On Tue07/24/21 at 1115, Administer over 85 Minutes, May Y-site with OXALIplatin Do not administer at a rate faster than 160 milligrams/minute. OXALIplatin (Eloxatin) 122 mg in New Bag 07/24/2021 10:53 AM E DT 122 mg 193.7 mL/hr dextrose 5% 274.4 mL infusion 122 mg (rounded from 121.7625 mg = 63.75 mg/m2/dose ? 1.91 m2 Treatment Plan BSA from Recorded weight), Intravenous, ONCE, 1 dose, On Tue07/24/21 at 1115, Administer over 85 Minutes, Compatible with dextrose-containing solution only. Warning Vesicant/Irritant Medication palonosetron (Aloxi) (0.05 mg/mL) injection Given 07/04 10:15 AM EDT 0.25 mg 0.25 mg 0.25 mg, Intravenous, ONCE, 1 dose, On Tue07/24/21 at 1015, Administer over 30 seconds. Administer prior to chemotherapy, Routine documented in this encounter Care Teams Miner Relationship Specialty Start Date End Date None PCP - General 12/03/19 None documented as of this encounter
--- OUTSIDE RECORDS SUMMARY | 2021-11-06 01:24 | XMS_ITS | Encounter Summary ---
:1940 Author Organization [facility] [place] [address] Care Team Providers Name Role Phone None Primary Care Provider Unavailable Reason for Visit Reason Comments Chemotherapy Cycle 8 Day 1 mFOLFOX Treatment/Therapy Plan Authorization (Routine) - Pending Review Specialty Diagnoses / Procedures Referred By Contact Refer red To Contact Diagnoses Primary colon cancer with metastasis to other site Michael Romero MD [facility] Hem Onc Infusion [address] [place] [phone] Fax: Referral ID Status Reason Start Date Expiration Date Visits V isits Requested Authorized [id number] Pending 05/08/2021 05/08/2022 99 99 Review Encounter Details Date Type Department Care Team Description 09/25/2021 Infusion Hematology Oncology at [facility] colon cancer with [facility] metastasis to other site [address] [place] [phone] Social History Tobacco Use Types Packs/Day Years Used Date Never Smoker Smokeless Tobacco: Never Used Sex Assigned at Date Recorded Not on file documented as of this encounter Progress Notes Jessie Majano RN - 09/25/2021 11:00 AM EDT INFUSION THERAPY ADMINISTRATION NOTES DIAGNOSIS: Colon CA CYCLE #: 8 Day 1 REASON FOR VISIT: Modified FOLFOX chemotherapy SUBJECTIVE Mrs. Armstrong is here for C8D1 modified, dose-reduced FOLFOX chemotherapy. She will not get 5FU bolus. She reports that she is overall doing pretty well. She met with Dr Romero prior to her infusion appt.She has no questions/concerns and is ready for treatment today. OBJECTIVE LAB DATA: WBC 4.66, HGB 11.4, HCT 35.9, PLT 135, ANC 2.27, BUN 12, Cr 0.8 Pre administration: Chemotherapy orders independently verified for drug name, route, and dosage per patient's height, weight and BSA by Jessie Majano RN and pharmacist on-site. HOME INFUSION - Connect Fluorouracil (5-FU) DOSE: 2292 mg over 46 hours RATE: 3mL/hr ROUTE: IV Port START TIME: 1310 Chemotherapy safety checks performed per protocol with Otoniel Soto RN. Drug amount infused verified by Arlet Grajeda RN double check after approximated 15 minutes and that 0.7 mL had infused. Anticipated date/time of disconnect: Tuesday, 09/27 at 1110 Plan for disconnect: to disconnect at home, supplies given to patient. REACTIONS (DESCRIPTION, TIME, INTERVENTION AND EFFECTIVENESS) none ASSESSMENT Mrs. Armstrong was awake, alert and tolerated treatment well. PLAN Return to clinic in 2 weeks for consideration of C9. Patient was reminded to call in the interim with any questions/concerns. documented in this encounter Plan of Treatment Upcoming Encounters Date Type Specialty Care Team Description 11/06/2021 Office Visit Hematology and Oncology Michael Romero MD [facility] ONCOLOGY [place], [place] [address] (Wo rk) 11/06/2021 Infusion Hematology [...] Rate Site dexAMETHasone (Decadron) tablet 10 Given 09/25/2021 10:48 AM EDT 10 mg mg 10 mg, Oral, ONCE, 1 dose, On Tue09/25/21 at 1100, Administer prior to chemotherapy, Routine fluorouraciL (AdruciL) in sodium Given 09/25/2021 1:10 PM EDT 2, 292 mg 3 mL/hr chloride 0.9% 138 mL infusion (46 Hour - For Home Use) 2,292 mg 2,292 mg (1,200 mg/m2/dose ? 1.91 m2 Treatment Plan BSA from Recorded weight), Intravenous, ONCE, 1 dose, On Tue09/25/21 at 1330, Administer over 46 Hours, Warning Vesicant/Irritant Medication To be infused via an ambulatory infusion CADD Legacy Plus pump continuously IV at 3 mL/hr for 46 hours. Pump contains a 46 hour supply and provides 1,200 mg/m2 over 46 hours. leucovorin 350 mg in dextrose 5% 85 New Bag 09/25/2021 11:27 A M EDT 350 mg 60 mL/hr mL infusion 350 mg, Intravenous, ONCE, 1 dose, On Tue09/25/21 at 1200, Administer over 85 Minutes, May Y-site with OXALIplatin Do not administer at a rate faster than 160 milligrams/minute. OXALIplatin (Eloxatin) 100 mg in New Bag 09/25/2021 11:27 AM E DT 100 mg 190.6 mL/hr dextrose 5% 270 mL infusion 100 mg, Intravenous, ONCE, 1 dose, On Tue09/25/21 at 1200, Administer over 85 Minutes, Dose Ordered = 105 mg (55 mg/m2). Pharmacist rounded dose per procedure (Re-ordered by /NICOLE). Compatible with dextrose-containing solution only. Warning Vesicant/Irritant Medication palonosetron (Aloxi) (0.05 mg/mL) injection Given 09/03 10:48 AM EDT 0.25 mg 0.25 mg 0.25 mg, Intravenous, ONCE, 1 dose, On Tue09/25/21 at 1100, Administer over 30 seconds. Administer prior to chemotherapy, Routine documented in this encounter Care Teams National Investigative Producer Relationship Specialty Start Date End Date None PCP - General 12/03/19 None documented as of this encounter
--- OUTSIDE RECORDS SUMMARY | 2021-11-06 01:24 | XMS_ITS | Encounter Summary ---
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 Michael Romero MD [place], Peter Benjamin, [facility] Slime Jacobson MD ONCOLOGY [address] [place] [address] [place] [phone] Fax: Referral ID Status Reason Start Date Expiration Date Visits V isits Requested Authorized [id number] Closed Consult, 05/08/2021 11/04/2021 1 1 Test & Treat Encounter Details Date Type Department Care Team Description 05/08/2021 TH Visit Hematology/Oncology Michael Romero Prima ry colon cancer (TeleHealth) at [facility] MD with metastasis to [address] [place] [address] MEDICAL other site [place], [place] CENTER [phone] ONCOLOGY [phone] [place], [place] [address] Social History Tobacco Use Types Packs/Day Years Used Date Never Smoker Smokeless Tobacco: Never Used Sex Assigned at Date Recorded Not on file documented as of this encounter Progress Notes Michael Romero MD - 05/08/2021 10:30 AM EST Subjective Patient ID: Joy Armstrong is 80 [...] because of significant intra abdominal adhesions Path ([facility] review) - Omentum, mass, excision: [...] ascites visualized. Though somewhat limited, overall PCI=2. H. 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 2. Hypothyroidism 3. Hyperlipidemia 4. ELVER 5. Bowel perforation which pt's thinks was related to a colonoscopy. Required emergent surgery. 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 The history is summarized above. Due to weather and poor travel conditions, today's visit was changed to a telephone encounter. Her Romero is with her. She says she is feeling well. She saw Dr. Jean-Baptiste about the issue with the gallbladder. Because she was asymptomatic, no intervention was recommended. She was told to call him if she develops any concerning symptoms. She has no abdominal pain. She is eating well, no weight loss. No fevers or chills. She says that she feels ok. She says her appetite is too good and she hasgained some weight. Her energy level varies from to days to day. She does most of the work around the house. She says she watches a lot of TV because there isn't much to do. She works on the computer an d reads also. Once has some pain once in a while in the RLQ when she pushes on that area. She doesnot take anything for that. Her bowels are pretty regular. She had some diarrhea since the surgery. She is taking immodium every third day and this seems to control that. She has a BM daily and it is formed. No numbness or tingling in her hands or feet. Soc Hx: , lives in [place], [place] Tob - Never Etoh - None Worked as [employer] [place]. Fam Hx: Father - Mother - breast [...] and Affect: Mood normal. Labs: WBC/ANC - 6.04/3249, Hgb/Hct - 14/43.4, Plts - 245,000. BUN/Cr - 16/0.8. Lytes and LFTs unremarkable CEA 04/22/21 3.6 10/26/19 1.5 Assessment & Plan [...] in the pelvis. She was seen at [facility] and underwent resection on 12/05/2019 - path [...] the absence of cold, laryngeal dysesthesia, fatigue, angina/DC, hypersensitivity reactions and others.?She was given informationalhandouts [...] quadrantand upper vaginal cuff, suspicious for metastases. I have asked that NGS be performed on the omental biopsy. After discussion, she is interested in trying [...] reduced dose therapy and increase if tolerated. I provided care to the patient today via telephone call. The total time associated with this visit was 30 minutes. documented in this encounter Plan of Treatment Upcoming Encounters Date Type Specialty Care Team Description 11/06/2021 Office Visit Hematology and Oncology Michael Romero MD [facility] ONCOLOGY [place], [place] [address] (Wo rk) 11/06/2021 Infusion Hematology and Oncology Scheduled Orders Name Type Priority Associated Diagnoses Order S chedule CBC (with Diff) Lab Routine Primary colon cancer Ever y 2 Weeks for 12 with metastasis to Occurrenc es starting other site 05/08/2021 unti l 05/08/2022 Comprehensive metabolic Lab Routine Primary colon can cer Every 2 Weeks for 12 panel (non-fasting) with metastasis to Oc currences starting other site 05/08/2021 unti l 05/08/2022 CEA Lab Routine Primary colon cancer Every 2 Weeks for 12 with metastasis to Occurrenc es starting other site 05/08/2021 unti l 05/08/2022 Scheduled Referrals Name Type Priority Associated Diagnoses Order S chedule Referral to Outpatient Referral Routine Primary colon cancer Ordered: General Surgery with metastasis to 2021 other site documented as of this encounter Visit Diagnoses Diagnosis 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
--- OUTSIDE RECORDS SUMMARY | 2021-11-06 01:24 | XMS_ITS | Encounter Summary ---
:1940 Author Organization [facility] [place] [address] Care Team Providers Name Role Phone None Primary Care Provider Unavailable Reason for Visit Reason Comments Chemotherapy Folfox # 2 Treatment/Therapy Plan Authorization (Routine) - Pending Review Specialty Diagnoses / Procedures Referred By Contact Refer red To Contact Diagnoses Primary colon cancer with metastasis to other site Michael Romero MD [facility] Hem Onc Infusion [address] [place] [phone] Fax: Referral ID Status Reason Start Date Expiration Date Visits V isits Requested Authorized [id number] Pending 05/08/2021 05/08/2022 99 99 Review Encounter Details Date Type Department Care Team Description 06/12/2021 Infusion Hematology Oncology at [facility] colon cancer with [facility] metastasis to other site [address] [place] [phone] Social History Tobacco Use Types Packs/Day Years Used Date Never Smoker Smokeless Tobacco: Never Used Sex Assigned at Date Recorded Not on file documented as of this encounter Progress Notes Virginia Leon RN - 06/12/2021 10:00 AM EST INFUSION THERAPY ADMINISTRATION NOTES TIME TREATMENT STARTED: 1000 TIME TREATMENT ENDED: 1300 DIAGNOSIS: colon cancer PROTOCOL:na CYCLE #: 2 REASON FOR VISIT: folfox SUBJECTIVE Joy Armstrong offers no complaints. OBJECTIVE LAB DATA: Labs reviewed and found adequate for treatment. Pre administration: Chemotherapy orders independently verified for drug name, route, and dosage per patient's height, weight and BSA by Marion Leon RN and Arlet Santillan pharmacist 5fu CADD .pump checked after 20 minutes of running and 1.05 ccs went in. Pt will be due to be disconnected at home on TuesdayJune 14 at 10 30 am. Pt's will be disconnecting her. Disconnecting supplies and instructions given along with time. Pt has antinausea medication at home if she needs it. She knows oncall numbers to call if any questions. REACTIONS (DESCRIPTION, TIME, INTERVENTION AND EFFECTIVENESS) none ASSESSMENT Joy Armstrong was awake, alert and he tolerated treatment well. PLAN Return to clinic in 2 weeks. documented in this encounter Plan of Treatment Upcoming Encounters Date Type Specialty Care Team Description 11/06/2021 Office Visit Hematology and Oncology Michael Romero MD [facility] DR ONCOLOGY [place], [place] [address] (Wo rk) 11/06/2021 Infusion Hematology [...] Rate Site dexamethasone (Decadron) tablet 10 Given 06/12/2021 10:09 AM EST 10 mg mg 10 mg, Oral, ONCE, 1 dose, On Tue06/12/21 at 1015, Administer prior to chemotherapy, Routine fluorouraciL (ADRUCIL) chemo Given 06/12/2021 12:23 PM EST 382 m g 91.7 mL/hr injection 382 mg 382 mg (200 mg/m2/dose ? 1.91 m2 Treatment Plan BSA from Recorded weight), Intravenous, ONCE, 1 dose, On Tue06/12/21 at 1115, Administer over 5 Minutes, Warning Vesicant/Irritant Medication fluorouraciL (AdruciL) in sodium Given 06/12/2021 12:32 PM EST 3 ,438 mg 3 mL/hr chloride 0.9% 138 mL infusion (46 Hour - For Home Use) 3,438 mg 3,438 mg (1,800 mg/m2/dose ? 1.91 m2 Treatment Plan BSA from Recorded weight), Intravenous, ONCE, 1 dose, On Tue06/12/21 at 1245, Administer over 46 Hours, Warning Vesicant/Irritant Medication To be infused via an ambulatory infusion CADD Legacy Plus pump continuously IV at 3 mL/hr for 46 hours. Pump contains a 46 hour supply and provides 1800 mg/m2 IV over 46 hours. leucovorin 350 mg in dextrose 5% 85 New Bag 06/12/2021 10:45 A M EST 350 mg 60 mL/hr mL infusion 350 mg, Intravenous, ONCE, 1 dose, On Tue06/12/21 at 1115, Administer over 85 Minutes, May Y-site with OXALIplatin Do not administer at a rate faster than 160 milligrams/minute. OXALIplatin (Eloxatin) 122 mg in New Bag 06/12/2021 10:[address] 122 mg 193.7 mL/hr dextrose 5% 274.4 mL infusion 122 mg (rounded from 121.7625 mg = 63.75 mg/m2/dose ? 1.91 m2 Treatment Plan BSA from Recorded weight), Intravenous, ONCE, 1 dose, On Tue06/12/21 at 1115, Administer over 85 Minutes, Compatible with dextrose-containing solution only. Warning Vesicant/Irritant Medication palonosetron (Aloxi) (0.05 mg/mL) injection Given 06/02 10:11 AM EST 0.25 mg 0.25 mg 0.25 mg, Intravenous, ONCE, 1 dose, On Tue06/12/21 at 1015, Administer over 30 seconds. Administer prior to chemotherapy, Routine documented in this encounter Care Teams Marine Painter Relationship Specialty Start Date End Date None PCP - General 12/03/19 None documented as of this encounter
--- OUTSIDE RECORDS SUMMARY | 2021-11-06 01:24 | XMS_ITS | Encounter Summary ---
:1940 Author Organization [facility] [place] [address] Care Team Providers Name Role Phone None Primary Care Provider Unavailable Encounter Details Date Type Department Care Team Description 05/22/2021 Office Visit Hematology/Oncology Aaron Romero MD [facility] [place] [address] Metastasis from colon cancer; at [facility] Nancy Ewing APRN [address] [place] [address] DR HEMATOLOGY ONCOLOGY [place], [place] [phone] Primary colon cancer with metastasis to other site [address] [place] [phone] Social History Tobacco Use Types Packs/Day Years Used Date Never Smoker Smokeless Tobacco: Never Used Sex Assigned at Date Recorded Not on file documented as of this encounter Last Filed Vital Signs Vital Sign Reading Time Taken Comments Blood Pressure 142/64 05/22/2021 2:25 PM EST Pulse 80 05/22/2021 2:25 PM EST Temperature 36 ??C (96.8 ??F) 05/22/2021 2:25 PM EST Respiratory Rate 25 05/22/2021 2:25 PM EST Oxygen Saturation 98% 05/22/2021 2:25 PM EST Inhaled Oxygen Concentration - - Weight 84.6 kg (186 lb 6.4 oz) 05/22/2021 2:25 PM EST Height - - Body Mass Index 34.52 04/17/2021 10:54 AM EST documented in this encounter Progress Notes Nancy Ewing APRN - 05/22/2021 2:30 PM EST Subjective Patient ID: Joy Armstrong is [...] the pelvis. ?? She was seen [place] [facility] and underwent resection on 12/05/2019 - path [...] the absence of cold, laryngeal dysesthesia, fatigue, angina/IN, hypersensitivity reactions and others.?She??was given informational handouts [...] with this visit was 30 minutes. ? RVAL HPI 05/21/21 Joy Armstrong is a 80 yo female initially diagnosed with colon cancer in 12/22. She was treated with surgery and post operative Capecitabine. 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 CT of 05/05/21 shows likely additional metastatic abdominal nodules. Joy returns to the [facility] oncology clinic in [facility] today accompanied by her Romero for review of labs andthe new chemotherapy treatment plan. She had previously met with Dr. Romero to discuss chemo therapyoptions. (No chemotherapy teaching sessions were scheduled.) Joy is doing pretty well. Her appetite and energy are good She and Romero thought they were starting chemotherapy today. I clarified that C1 is scheduled to start 05/26/21. We reviewed that labs needto be done about an hour before treatment at [facility]. She had labs 05/20/21 which will suffice They have received written information about the medications planned, Oxaliplatin and Fluorouracil.We again reviewed some of the more pertinent side effects of treatment including fatigue, nausea, vomiting, diarrhea, low blood counts, neuropathy, fever, infection. A new prescription for prochlorperazine was sent as Joy thought she has some leftover pills from her last treatment but did not know what they were. She is not having abdominal pain. She usually moves her bowels fairly regularly. She is a little irregular this week due to a fast. Celia states he is going to learn pump disconnect so we will plan treatments for Fridays, but C1 will be given Tuesday through next week. She feels her breathing is good. Denies shortness of breath, new cough or chest pain. She has a newly placed port in right chest that is a little tender. She denies other new persistent muscle or bony aches or pains. She feels ready to begin treatment. Allergies Allergen Reactions ??? Shellfish Derived swelling ??? Sulfamethoxazole-Trimethoprim ??? Sulfasalazine Current Medications ??? ferrous sulfate 325 mg (65 mg iron) Tablet ??? levothyroxine (Synthroid) 100 mcg Tablet ??? simvastatin (Zocor) 10 mg Tablet ??? tolterodine LA (Detrol LA) 4 mg Capsule, Sust. Release 24 hr ??? cyanocobalamin, Vitamin B-12, (Vitamin B-12) 100 mcg Tablet ??? Cod Liver Oil Oil ??? cholecalciferol, Vitamin D3, 25 mcg (1,000 unit) Capsule ??? ascorbic acid, vitamin C, (VITAMIN C) 100 mg Tablet ??? magnesium 250 mg Tablet ??? prochlorperazine (Compazine) 10 mg Tablet ??? Boost High Protein 0.06 gram- 1 kcal/mL Liquid ??? mometasone (ELOCON) 0.1 % Ointment ??? oxybutynin (Ditropan) 5 mg Tablet Social History Tobacco Use ??? Smoking status: [...] sounds are normal. Palpations: Abdomen is soft. Comments: Well healed abdominal incisions. Musculoskeletal: Right lower leg: No edema. Left lower leg: No edema. Skin: General: Skin is warm and dry. Neurological: Mental Status: She is alert and oriented to person, place, and time. Coordination: Coordination normal. Psychiatric: Mood and Affect: Mood normal. Thought Content: Thought content normal. BP 142/64 (Patient Position: Sitting) Pulse 80 Temp 36 ??C (96.8 ??F) (Temporal) Resp 25 Wt 84.6 kg (186 lb 6.4 oz) SpO2 98% BMI 34.52 kg/m?? LABS 05/20/21 WBC 5.2; ANC 3.10; H/H 14.7/45/2; [...] likely additional metastatic abdominal nodules. Joy returns to the [facility] oncology clinic in [facility] today accompanied by her Romero for review of labs andthe new chemotherapy treatment plan. She had previously met with Dr. Romero to discuss chemo therapyoptions. (No chemotherapy teaching sessions were scheduled.) CBC and CMP were reviewed with Joy and Romero today. They verbalized an understanding of the chemotherapy treatment plan. Prochlorperazine Prescription sent to [facility]. C1D1 Folfox 05/26/21. Pump disconnect teaching planned for C1. 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
--- OUTSIDE RECORDS SUMMARY | 2021-11-06 01:24 | XMS_ITS | Encounter Summary ---
:1940 Author Organization [facility] [address] Care Team Providers Name Role Phone None Primary Care Provider Unavailable Reason for Visit Reason Comments IV Medication Cycle 5, Day 1 - Folfox, no push Treatment/Therapy Plan Authorization (Routine) - Pending Review Specialty Diagnoses / Procedures Referred By Contact Refer red To Contact Diagnoses Primary colon cancer with metastasis to other site Michael Romero MD [facility] [address] [place] [phone] Fax: Referral ID Status Reason Start Date Expiration Date Visits V isits Requested Authorized [id number] Pending 05/08/2021 05/08/2022 99 99 Review Encounter Details Date Type Department Care Team Description 08/07/2021 Infusion Hematology Oncology at [facility] colon cancer with [facility] metastasis to other site [address] [place] [address] [phone] Social History Tobacco Use Types Packs/Day Years Used Date Never Smoker Smokeless Tobacco: Never Used Sex Assigned at Date Recorded Not on file documented as of this encounter Progress Notes Lori Soto RN - 08/07/2021 12:00 PM EDT INFUSION THERAPY ADMINISTRATION NOTES DIAGNOSIS: Colon cancer CYCLE #: Cycle 5, Day 1 - Folfox, no push REASON FOR VISIT: To receive scheduled chemotherapy. SUBJECTIVE: Joy offers no complaints. OBJECTIVE: Seen by provider. Ready to treat. LAB DATA: WBC - 4.13, H/H - 12.0/37.7, Plt Ct - 137, ANC - 2.00, Lytes wnl, BUN/Cr - 12/0.8 IV ACCESS: Port accessed off site. Flushes readily with brisk blood return. Pre administration: Chemotherapy orders independently verified for drug name, route, and dosage per patient's height, weight and BSA by Lori Soto, RN and Staff Pharmacist(s). REACTIONS (DESCRIPTION, TIME, INTERVENTION AND EFFECTIVENESS) none ASSESSMENT: Joy was awake, alert and tolerated treatment well. CADD pump provided by [employer], pump was double checked by Lori Soto, RN and Ifeanyi Jamison RN prior to connection. Pump was checked 25 min after connection and 1.2 cc's was infused. PLAN Patient is aware to call clinic with any questions and concerns M-F 8am to 5pm and to call [facility] with any questions and concerns in the off hours. Home disconnect by spouse. Disconnect kit sent home with patient. Due for disconnect on Tuesday08/09/21 at 1240. Return in two weeks for consideration next cycle. documented in this encounter Plan of Treatment Upcoming Encounters Date Type Specialty Care Team Description 11/06/2021 Office Visit Hematology and Oncology Michael Romero MD [facility] [address] ONCOLOGY [place], [place] [address] (Wo rk) 11/06/2021 Infusion Hematology [...] Rate Site dexamethasone (Decadron) tablet 10 Given 08/07/2021 12:17 PM EDT 10 mg mg 10 mg, Oral, ONCE, 1 dose, On Tue08/07/21 at 1215, Administer prior to chemotherapy, Routine fluorouraciL (AdruciL) in sodium Given 08/07/2021 2:39 PM EDT 3, 438 mg 3 mL/hr chloride 0.9% 138 mL infusion (46 Hour - For Home Use) 3,438 mg 3,438 mg (1,800 mg/m2/dose ? 1.91 m2 Treatment Plan BSA from Recorded weight), Intravenous, ONCE, 1 dose, On Tue08/07/21 at 1445, Administer over 46 Hours, Warning Vesicant/Irritant Medication To be infused via an ambulatory infusion CADD Legacy Plus pump continuously IV at 3 mL/hr for 46 hours. Pump contains a 46 hour supply and provides a daily dose of 1,200 mg/m2/day = 2,400 mg/m2 IV over 46 hours. leucovorin 350 mg in dextrose 5% 85 New Bag 08/07/2021 12:49 P M EDT 350 mg 60 mL/hr mL infusion 350 mg, Intravenous, ONCE, 1 dose, On Tue08/07/21 at 1315, Administer over 85 Minutes, May Y-site with OXALIplatin Do not administer at a rate faster than 160 milligrams/minute. OXALIplatin (Eloxatin) 122 mg in New Bag 08/07/2021 12:49 PM E DT 122 mg 193.7 mL/hr dextrose 5% 274.4 mL infusion 122 mg (rounded from 121.7625 mg = 63.75 mg/m2/dose ? 1.91 m2 Treatment Plan BSA from Recorded weight), Intravenous, ONCE, 1 dose, On Tue08/07/21 at 1315, Administer over 85 Minutes, Compatible with dextrose-containing solution only. Warning Vesicant/Irritant Medication palonosetron (Aloxi) (0.05 mg/mL) injection Given 09/2021 12:17 PM EDT 0.25 mg 0.25 mg 0.25 mg, Intravenous, ONCE, 1 dose, On Tue08/07/21 at 1215, Administer over 30 seconds. Administer prior to chemotherapy, Routine documented in this encounter Care Teams Helper Maintenance Cleaning Relationship Specialty Start Date End Date None PCP - General 12/03/19 None documented as of this encounter
--- OUTSIDE RECORDS SUMMARY | 2021-11-06 01:25 | XMS_ITS | Encounter Summary ---
:1940 Author Organization [facility] [place] [address] Care Team Providers Name Role Phone None Primary Care Provider Unavailable Encounter Details Date Type Department Care Team Description 04/01/2021 Hospital Encounter Laboratory [facility] [place] [address] Social History Tobacco Use Types Packs/Day Years Used Date Never Smoker Smokeless Tobacco: Never Used Sex Assigned at Date Recorded Not on file documented as of this encounter Medications at Time of Discharge Medication Sig Dispensed Refills Start Date End Date ferrous sulfate 325 mg Take 325 mg by mouth. 0 (65 mg iron) Tablet Boost High Protein 0.06 DRINK 1 BOTTLE BY 0 11/12 gram- 1 kcal/mL Liquid MOUTH 3 TIMES A DAY FOR 30 DAYS levothyroxine Take 100 mcg by 0 (Synthroid) 100 mcg mouth. Tablet mometasone (ELOCON) 0.1 JENNA A THIN LAYER AA 0 12/2019 % Ointment BID oxybutynin (Ditropan) 5 Take 5 mg by mouth 0 mg Tablet Daily. simvastatin (Zocor) 10 Take 10 mg by mouth. 0 mg Tablet tolterodine LA (Detrol Take 4 mg by mouth. 0 LA) 4 mg Capsule, Sust. Release 24 hr cyanocobalamin, Vitamin Take 100 mcg by mouth 0 B-12, (Vitamin B-12) 100 daily. mcg Tablet Cod Liver Oil Oil Take by mouth. 0 cholecalciferol, Vitamin Take by mouth. 0 D3, 25 mcg (1,000 unit) Capsule ascorbic acid, vitamin Take 100 mg by mouth 0 C, (VITAMIN C) 100 mg daily. Tablet Prevail Pads Pad USE 1 PAD TWO TIMES A 0 06/16/19 20 04/17/2021 DAY neomycin (Mycifradin) 0 11/30/2019 500 mg Tablet GaviLyte-G DRINK DIRECTED BY 0 11/20/201904/04 236-22.74-6.74 -5.86 PRESCRIBER FOR gram Recon Soln SURGERY PREP documented as of this encounter Plan of Treatment Upcoming Encounters Date Type Specialty Care Team Description 11/06/2021 Office Visit Hematology and Oncology Michael Romero MD [facility] ER DR ONCOLOGY [place] [phone] (Wo rk) 11/06/2021 Infusion Hematology and Oncology documented as of this encounter Procedures Procedure Name Priority Date/Time Associated Diagnosis Comme nts SOLID TUMOR NGS Routine 04/01/2021 3:27 PM PANEL EST SURGICAL PATHOLOGY Routine 04/01/2021 3:27 PM Res ults for this REPORT EST procedure are i n the results section. documented in this encounter Results Solid Tumor NGS Panel (04/01/2021 3:27 PM EST) Specimen Anatomical Collection Method Collection Time Receive d Time (Source) Location / / Volume Laterality Tissue 04/01/2021 3:27 PM 2 1:53 EST PM EST Resulting Agency Comment Spec In Lab Michael Romero MD PATHOLOGY/CYTOLOGY ORDERABLE S Performing Organization Address City/State/[place] [address] Surgical Pathology Report (04/01/2021 3:27 PM EST) Component Value Ref Test Analysis Performed At [facility] gist Range Method Time Signature Surgical [id number] ? Location: [facility] Pathology [place] Report The signing pathologist has (i) examined the relevant preparation(s) for the [facility] specimen(s) and (ii) rendered or confirmed the diagnosis(es) . HOSPITAL LABORATORY . ?Surgic al Pathology DIAGNOSIS CORRECTED REPORT (See Discussion) _ CONSULTATION CASE Outside slide(s) labeled [id number], collection date 021 Omentum, mass, excision: - Metastatic adenocarcinoma, consistent with patient's known colorectal primary. ( ? see note) Note: Outside immunostaining for CDX2 is positive, sup porting the diagnosis. Electronically signed by: ?Finesse Barrett MD Verified: ??05/11/2021 9:28 ?? Pathologist Performed at: ??-[facility] Dept. of [place]ology, [place], [place] DISCUSSION Correction Note: ??Changed CN accession number ??There are no other changes to the text of this report. _ ADDITIONAL STUDIES Whole slide scan: A1, CDX2 SPECIMEN(S) SUBMITTED CONSULTATION CASE A - 5 slide(s) labeled [id number], collection date 1. [id number] Report to: [facility] Surgical Pathology Department [facility], [facility], [address]nd Floor [address] [place] [address] ??[id number] CLINICAL INFORMATION _. SPECIMEN PROCESSING _ pathology slide(s) are rev iewed. ??Refer to Diagnosis and Specimen Submitted for specific case information. For the full text of the _ r eport(s) please refer to Non- Documentation Pathology in the electronic health record (eDH). Specimen (Source) Anatomical Collection Method Collection Time Re ceived Time Location / / Volume Laterality 04/01/2021 3:27 PM EST Mcihael Romero MD PATHOLOGY/CYTOLOGY ORDERABLE S Performing Organization Address City/State/[place] [address] documented in this encounter Visit Diagnoses Not on filedocumented in this encounter Care Teams Health Information Technologist Relationship Specialty Start Date End Date None PCP - General 12/03/19 None documented as of this encounter
--- OUTSIDE RECORDS SUMMARY | 2021-11-06 01:25 | XMS_ITS | Encounter Summary ---
:1940 [place] [address] Care Team Providers Name Role Phone Unavailable Primary Care Provider Unavailable Encounter Details Date Type Department Care Team Description 10/30/2019 Ancillary Procedure Radiology Library at Jorge Romero [facility] [place] [address] ONCOLOGY [phone] [place], [place] [address] (Wo rk) Social History Tobacco Use Types Packs/Day Years Used Date Never Assessed Sex Assigned at Date Recorded Not on file documented as of this encounter Plan of Treatment Upcoming Encounters Date Type Specialty Care Team Description 11/06/2021 Office Visit Hematology and Oncology Michael Romero MD [facility] ER ONCOLOGY [place], [place] [address] (Wo rk) 11/06/2021 Infusion Hematology and Oncology documented as of this encounter Procedures Procedure Name Priority Date/Time Associated Diagnosis Comme nts FILM LIBRARY Routine 10/30/2019 12:00 AM Results for this STORAGE ONLY CT EDT procedure ar e in CHEST ABDOMEN the results PELVIS section. documented in this encounter Results Film Library- Storage Only CT Chest Abdomen Pelvis (10/30/2019 12:00 AM EDT) Specimen (Source) Anatomical Location Collection Method / Collectio n Time Received Time / Laterality Volume Narrative RAD - 04/16/2021 11:06 AM EST This exam is auto-finalizing. It's purpo se is for storage only. Michael Romero MD G FILM LIBRARY ORDERABLES Performing Organization Address City/State/ZIP Code [facility] e Number RAD [place] documented in this encounter Visit Diagnoses Not on filedocumented in this encounter
--- OUTSIDE RECORDS SUMMARY | 2021-11-06 01:25 | XMS_ITS | Encounter Summary ---
:1940 Author Organization [place] [address] Care Team Providers Name Role Phone None Primary Care Provider Unavailable Reason for Visit Surgical (Routine) - Canceled Specialty Diagnoses / Procedures Referred By Contact Refer red To Contact Diagnoses Hydrosalpinx Dannie Epperson DO Procedures HYSTERECTOMY, TOTAL ABD., W W/O BSO [address] [place] [address] OBSTETRICS & [place] [address] Referral ID Status Reason Start Expiration Visits Visits Date Date Requested Authorized [id number] Canceled Specialty 12/03/2019 05/31/2020 1 1 Service Requested Encounter Details Date Type Department Care Team Description 12/05/2019 Ext Surgery or [facility] Dannie Epperson DO Malignant neoplasm [facility] [address] [place] [address] of ascending colon [address] [place], [place] GYNECOLOGY [address] [place] [address] [phone] (Wo rk) Social History Tobacco Use Types Packs/Day Years Used Date Never Smoker Smokeless Tobacco: Never Used Sex Assigned at Date Recorded Not on file documented as of this encounter Procedure Notes Dannie Epperson DO - 12/05/2019 7:30 AM EDT [facility] BRIEF OPERATIVE NOTE Date: 12/05/2019 Preop Dx: R adnexal cyst, colon cancer, bladder cancer Postop Dx: same Procedure: JOSE ROBERTO-BSO Surgeon: Zeenat Fast Food Manager: Kahlil Hackett MD, PGY2 Anesthesia: GETA EBL: min UO: colon to gravity Intraop meds: toradol Complications: none Findings: right sided colon mass, abdominal wall, right adnexal cyst of tube and ovary Pathology: uterus, tubes, ovaries Disposition: stable documented in this encounter Plan of Treatment Upcoming Encounters Date Type Specialty Care Team Description 11/06/2021 Office Visit Hematology and Oncology Michael Romero MD [facility] DR ONCOLOGY [place] [address] (Wo rk) 11/06/2021 Infusion Hematology and Oncology documented as of this encounter Visit Diagnoses Diagnosis Malignant neoplasm of ascending colon Stage IV adenocarcinoma of small bowel Malignant neoplasm of small intestine, u nspecified site documented in this encounter Care Teams Cafe Server Relationship Specialty Start Date End Date None PCP - General 12/03/19 None documented as of this encounter
--- OUTSIDE RECORDS SUMMARY | 2021-11-06 01:25 | XMS_ITS | Encounter Summary ---
:1940 [place] [address] Care Team Providers Name Role Phone None Primary Care Provider Unavailable Encounter Details Date Type Department Care Team Description 12/25/2019 Ancillary Procedure Radiology Library at Jorge Romero [facility] [address] ONCOLOGY [phone] [place], [place] [address] (Wo rk) Social History Tobacco Use Types Packs/Day Years Used Date Never Smoker Smokeless Tobacco: Never Used Sex Assigned at Date Recorded Not on file documented as of this encounter Plan of Treatment Upcoming Encounters Date Type Specialty Care Team Description 11/06/2021 Office Visit Hematology and Oncology Michael Romero MD [facility] ER [place]OGY [place], [place] [address] (Wo rk) 11/06/2021 Infusion Hematology and Oncology documented as of this encounter Procedures Procedure Name Priority Date/Time Associated Diagnosis Comme nts FILM LIBRARY Routine 12/25/2019 12:00 AM Results for this STORAGE ONLY DX EDT procedure are in STUDY the results section. documented in this encounter Results Film Library- Storage Only DX Study (12/25/2019 12:00 AM EDT) Specimen (Source) Anatomical Location Collection Method / Collectio n Time Received Time / Laterality Volume Narrative RAD - 04/16/2021 11:04 AM EST This exam is auto-finalizing. It's purpo se is for storage only. Michael Romero MD IMG FILM LIBRARY ORDERABLES Performing Organization Address City/State/ZIP Code Phon e Number DH RAD DH [place] documented in this encounter Visit Diagnoses Not on filedocumented in this encounter Care Teams White Kid Buffer Relationship Specialty Start Date End Date None PCP - General 12/03/19 None documented as of this encounter
--- OUTSIDE RECORDS SUMMARY | 2021-11-06 01:25 | XMS_ITS | Encounter Summary ---
:1940 [place] [address] Care Team Providers Name Role Phone None Primary Care Provider Unavailable Encounter Details Date Type Department Care Team Description 04/01/2020 Ancillary Procedure Radiology Library at Jorge Romero [facility] [place] [facility] [place] [address] ONCOLOGY [phone] [place], [place] [address] (Wo rk) Social History Tobacco Use Types Packs/Day Years Used Date Never Smoker Smokeless Tobacco: Never Used Sex Assigned at Date Recorded Not on file documented as of this encounter Plan of Treatment Upcoming Encounters Date Type Specialty Care Team Description 11/06/2021 Office Visit Hematology and Oncology Michael Romero MD [facility] ONCOLOGY [place], [place] [address] (Wo rk) 11/06/2021 Infusion Hematology and Oncology documented as of this encounter Procedures Procedure Name Priority Date/Time Associated Diagnosis Comme nts FILM LIBRARY Routine 04/01/2020 12:00 AM Results for this STORAGE ONLY NM EST procedure ar e in PET/CT the results section. documented in this encounter Results Film Library- Storage Only NM Pet / CT (04/01/2020 12:00 AM EST) Specimen (Source) Anatomical Location Collection Method / Collectio n Time Received Time / Laterality Volume Narrative RAD - 04/16/2021 11:02 AM EST This exam is auto-finalizing. It's purpo se is for storage only. Michael Romero MD IMG FILM LIBRARY ORDERABLES Performing Organization Address City/State/ZIP Code Phon e Number DH RAD DH RAD [place] documented in this encounter Visit Diagnoses Not on filedocumented in this encounter Care Teams Customer Sales Consultant Relationship Specialty Start Date End Date None PCP - General 12/03/19 None documented as of this encounter
--- OUTSIDE RECORDS SUMMARY | 2021-11-06 01:25 | XMS_ITS | Encounter Summary ---
:1940 Author Organization [facility] [place] [address] Care Team Providers Name Role Phone None Primary Care Provider Unavailable Reason for Referral Diagnostic Test (Routine) - Authorized Specialty Diagnoses / Procedures Referred By Contact Refer red To Contact Radiology Diagnoses Stage IV adenocarcinoma of small bowel Michael Romero MD Procedures CT Chest Abdomen Pelvis w Contrast (Generic) [facility] [place] [address] Referral ID Status Reason Start Expiration Visits Visits Date Date Requested Authorized [id number] Authorized Specialty 04/17/2021 10/15/2022 1 1 Service Requested Reason for Visit Consultation (Routine) - Closed Specialty Diagnoses / Procedures Referred By Contact Refer red To Contact Hematology and Oncology Diagnoses Malignant neoplasm of abdomen Malignant neoplasm of abdomen Jamie Jean-Baptiste Gregory H, Procedures [employer] MD MANAN Camejo [address] [place] [address] [place] [address] Referral ID Status Reason Start Date Expiration Date Visits Requ ested Visits Authorized [id number] Closed 03/17/2021 03/17/2022 1 1 Encounter Details Date Type Department Care Team Description 04/17/2021 Office Visit Hematology/Oncology Aaron Romero MD [facility] [place] [address] Metastasis from colon cancer; at [facility] Nancy Ewing APRN [address] [place] [address] DR HEMATOLOGY ONCOLOGY [place], [place] [id number] Stage IV adenocarcinoma of small bowel [address] [place] [phone] Social History Tobacco Use Types Packs/Day Years Used Date Never Smoker Smokeless Tobacco: Never Used Sex Assigned at Date Recorded Not on file documented as of this encounter Last Filed Vital Signs Vital Sign Reading Time Taken Comments Blood Pressure 133/65 04/17/2021 10:54 AM EST Pulse 84 04/17/2021 10:54 AM EST Temperature 36.3 ??C (97.3 ??F) 04/17/2021 10:54 AM EST Respiratory Rate 16 04/17/2021 10:54 AM EST Oxygen Saturation 97% 04/17/2021 10:54 AM EST Inhaled Oxygen Concentration - - Weight 83.7 kg (184 lb 9.6 oz) 04/17/2021 10:54 AM EST Height 156.5 cm (5' 1.61) 04/17/2021 10:54 AM EST Body Mass Index 34.19 04/17/2021 10:54 AM EST documented in this encounter Progress Notes Michael Romero MD - 04/17/2021 11:00 AM EST Subjective Patient ID: Joy Armstrong [...] because of significant intra abdominal adhesions Path ([facility] review) - Omentum, mass, excision: [...] ascites visualized. Though somewhat limited, overall PCI=2. 2. Hypothyroidism 3. Hyperlipidemia 4. ELVER 5. Bowel perforation which pt's thinks was related to a colonoscopy. Required emergent surgery. HPI Joy Armstrong is referred for evaluation and management of colon cancer. The history is summarizedabove. Due to visitor restrictions related to the covid pandemic, Joy is by herself in clinic today. Her Romero is on speaker phone. She says that she feels ok. She says her appetite is too good and she has gained some weight. Her energy level varies from to days to day. She does most of the work around the house. She says she watches a lot of TV because there isn't much to do. She works on [employer] and reads also. Once has some pain once in a while in the RLQ when she pushes on that area. She does not take anything for that. Her bowels are pretty regular. She had some diarrhea since the surgery. She is taking immodium every third day and this seems to control that. She has a BM daily and it is formed. No numbness or tingling in her hands or feet. Soc Hx: , lives in [place], [place] Tob - Never Etoh - None Worked as [employer]. Fam Hx: Father - Mother - [...] normal. Psychiatric: Mood and Affect: Mood normal. CEA 10/26/19 1.5 Assessment & Plan Joy Armstrong is 80 yo, seen for evaluation and management of small bowel adenocarcinoma, stage IV. She was diagnosed with colon in 10/2019 when she presented with anemia. A colonoscopy was done and showed a mass in the sigmoid colon, biopsy of which showed adenocarcinoma. IHC for MMR proteins showed intact staining. By imaging, this was a locally advanced cancer with primary site in the cecum extending to involve the sigmoid colon, bladder and uterus and there was a cystic mass in the pelvis. She was seen at [facility] and underwent resection on 12/05/2019 - path report above. This was an adenocarcinoma, moderately differentiated, thought to be arising from the terminal ileum with invasion of the sigmoid colon and bladder, T4. 15 LNs seen, all negative, N0. The margins of resection were negative (cystectomy margin could not be determined). [...] adenocarcinoma consistent with a colorectal primary. We reviewed the situation and treatment options. We discussed that this represents recurrent, metastatic disease. Although apparently a limited recurrence with an abdominal wall mass and limited omental disease, given the nature of the recurrence, this does appear to be amenable to curative intervention. Cytoreductive surgery and HIPEC has been discussed but the utility of that in this type of canceris limited and I think would be a very difficult procedure for her to go through. She has not had imaging for some time. I will order a CT c/a/p and see her back after that. My thought would be for systemic therapy, perhaps with folfox. I have some concerns about tolerance of therapy and would plan tostart at reduced dose. We talked about the schedule and potential [...] the absence of cold, laryngeal dysesthesia, fatigue, angina/PA, hypersensitivity reactions and others.?She was given informationalhandouts regarding these medications. Joy is willing to consider chemotherapy. Before making a final decision on the approach to treatment, we will get a restaging CT scan done. Depending on the findings and how she does with therapy, there may be a role for local therapies such as surgery or radiation in the future. I have asked that NGS be performed on the omental biopsy. Zita Mercer RN - 04/17/2021 11:00 AM EST MEDICAL ONCOLOGY INITIAL NURSING ASSESSMENT ADVANCE DIRECTIVES: In EDH [ ] Has documents [ ] Will bring in [ ] IF NO: Advance Directive pamphlet provided : Referral to Care Management : PRESENTING SYSTEMS and PATHOLOGY: REVIEW OF SYSTEMS: Prior Radiotherapy: no[ X ] Yes[ ]Site Date Facility Prior Chemotherapy: no[ ] Yes[ X ] Drug: capecitabine Oncologist- Jo Ann LastTreatment: NO: YES: Claustrophobia or requires sedation for MRIs X Allergy to CT or MRI contrast agent or iodine or shellfish X Diabetic and on metformin X Metal in body, implanted device, worked with metal, body piercings,braces X Dentures or hearing device X- upper and lower Pacemaker X Difficulty breathing while lying flat X Kidney problems/creatinine X Balance difficulty: [ X]no [ ]yes At risk for fall: [ X ] no [ ] yes If yes, actions implemented to prevent fall. Patient/family instructed to avoid independent ambulation. Use wheelchair and ask for assistance of staff while in the clinic. ADL [ X ] no limits [ ] needs dressing assistance [ ] needs meal assistance Assistive device:[ X]none [ ]cane [ ]walker [ ]wheelchair [ ]other: explain PAIN ASSESSMENT: [ 0} out of 10 Location: Description: [ ] Dull [ ] Sharp [ ] Burning [ ] Throbbing [ ] Radiating [ ] Continuous [ ]Intermittent Aggravating Factors: [ ] Movement [ ] Position [ ]Immobility [ ]Other Alleviating Factors: [ ]Medication [ ] Positioning [ ] Other Current Pain Management Plan: [ ]Satisfied [ ] Not satisfied SOCIAL ASSESSMENT: See EDH social assessment information entered. Support Systems: - Romero. [facility] transportation plan: [X ]private vehicle [ ] RCT needs Social Work referral [ ] Unknown at this time needs Social Work referral Barriers to treatment: Referrals/Interventions: LEARNING STYLE: Visual and verbal, wants written material and verbal discussion. TEACHING: __ NCI ???Chemotherapy and You?? and folder given _X_ Specific chemotherapy literature provided and reviewed with patient documented in this encounter Plan of Treatment Upcoming Encounters Date Type Specialty Care Team Description 11/06/2021 Office Visit Hematology and Oncology Michael Romero MD [facility] ONCOLOG[facility] [place], [place] [address] (Wo rk) 11/06/2021 Infusion Hematology and Oncology Scheduled Orders Name Type Priority Associated Diagnoses Order S chedule Specimen to Pathology Pathology/Cytolo Routine Stage IV Or dered: Additional Testing gy adenocarcinoma of 04/04 small bowel CBC (with Diff) Lab Routine Stage IV Expected: adenocarcinoma of 05/01/2021 small bowel (Approximate), Expires: 04/17/2022 Comprehensive Lab Routine Stage IV Expected: metabolic panel adenocarcinoma of 022 (non-fasting) small bowel (Approximate), Expires: 04/17/2022 CEA Lab Routine Stage IV Expected: adenocarcinoma of 05/01/2021 small bowel (Approximate), Expires: 10/31/2021 CT Chest Abdomen Imaging Routine Stage IV Expected: Pelvis w Contrast adenocarcinoma of 04/24 (Generic) small bowel (Approximate), Expires: 10/24/2021 documented as of this encounter Visit Diagnoses Diagnosis 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
--- OUTSIDE RECORDS SUMMARY | 2021-11-06 01:25 | XMS_ITS | Encounter Summary ---
:1940 Author Organization [facility] [place] [address] Care Team Providers Name Role Phone None Primary Care Provider Unavailable Reason for Visit Reason Comments Pre-op Exam Encounter Details Date Type Department Care Team Description 12/03/2019 Office Visit DAY SPA MANAGER at [place] Dannie Epperson DO Hydrosalpinx [address] OBSTETRICS [place] [address] [place] [address] [phone] (Wo rk) Social History Tobacco Use Types Packs/Day Years Used Date Never Smoker Smokeless Tobacco: Never Used Sex Assigned at Date Recorded Not on file documented as of this encounter Last Filed Vital Signs Vital Sign Reading Time Taken Comments Blood Pressure 120/60 12/03/2019 2:08 PM EDT Pulse - - Temperature - - Respiratory Rate - - Oxygen Saturation - - Inhaled Oxygen Concentration - - Weight 82.8 kg (182 lb 9.6 oz) 12/03/2019 2:08 PM EDT Height 160 cm (5' 3) 12/03/2019 2:08 PM EDT Body Mass Index 32.35 12/03/2019 2:08 PM EDT documented in this encounter Progress Notes Dannie Epperson DO - 12/03/2019 2:00 PM EDT CC: consult HPI: Joy is a very pleasant 79 yo para 4 from [place] who is a new patient in consult today as requested by Dr Live Sood of the General Surgery group at [facility]. She presents alone today, and her Romero is in the car outside. Dr Sood is requesting gynecology presence at plannedlaparotomy for colon cancer resection for possible JOSE ROBERTO-BSO if needed. This has been scheduled for 12/05/2019. The patient has undergone prior visit with OSH and decided to pursue second opinion with general surgery at [facility]. She reports a history of colonoscopy in 2018 with possible perforation. She then reports a history of appendectomy and possible sepsis. She has since been seen locally and was determined to have cancerof the colon and urinary bladder. At present her chief complaints are surrounding her leak of stool via her bladder and abdominal discomfort. At the time of her visit today, her outside records are available for review, images are not as no disc was provided. She has been seen and evaluated locally by general surgery and urology. Their plansare for an exploratory laparotomy, colectomy, diverting ileostomy, ureteral stenting, and partial cystectomy. ROS: CONST: +weight loss, denies fatigue. HEENT: Denies ear pain, sore throat, difficulty swallowing CV: Denies chest pain, dyspnea with exertion PULM: Denies shortness of breath, wheezing, cough GI: +nausea, -vomiting, +diarrhea, +constipation, -melena, -hematochezia, -heartburn : denies dysuria, hematuria, +stool in urine Allergies Allergen Reactions ??? Shellfish Derived swelling ??? Sulfamethoxazole-Trimethoprim ??? Sulfasalazine Current Outpatient Medications: ??? ciprofloxacin (Cipro) 500 mg Tablet, Take 500 mg by mouth Twice daily., Disp: , Rfl: ??? ferrous sulfate 325 mg (65 mg iron) Tablet, Take 325 mg by mouth., Disp: , Rfl: ??? Prevail Pads Pad, USE 1 PAD TWO TIMES A DAY, Disp: , Rfl: ??? Boost High Protein 0.06 gram- 1 kcal/mL Liquid, DRINK 1 BOTTLE BY MOUTH 3 TIMES A DAY FOR 30 DAYS, Disp: , Rfl: ??? levothyroxine (Synthroid) 100 mcg Tablet, Take 100 mcg by mouth., Disp: , Rfl: ??? mometasone (ELOCON) 0.1 % Ointment, JENNA A THIN LAYER AA BID, Disp: , Rfl: ??? neomycin (Mycifradin) 500 mg Tablet, , Disp: , Rfl: ??? oxybutynin (Ditropan) 5 mg Tablet, Take 5 mg by mouth Daily., Disp: , Rfl: ??? GaviLyte-G 236-22.74-6.74 -5.86 gram Recon Soln, DRINK DIRECTED BY PRESCRIBER FOR SURGERY PREP, Disp: , Rfl: ??? simvastatin (Zocor) 10 mg Tablet, Take 10 mg by mouth., Disp: , Rfl: ??? tolterodine LA (Detrol LA) 4 mg Capsule, Sust. Release 24 hr, Take 4 mg by mouth., Disp: , Rfl: ??? cyanocobalamin, Vitamin B-12, (Vitamin B-12) 100 mcg Tablet, Take 100 mcg by mouth daily., Disp:, Rfl: ??? Cod Liver Oil Oil, Take by mouth., Disp: , Rfl: ??? cholecalciferol, Vitamin D3, 25 mcg (1,000 unit) Capsule, Take by mouth., Disp: , Rfl: ??? ascorbic acid, vitamin C, (Vitamin C) 100 mg Tablet, Take 100 mg by mouth daily., Disp: , Rfl: Past OB history: G1: [birth year], 6 pound, male G2: 1963, 6 pound, female, G3: 1966, 6 pounds, male, G4: 1969, 6 pounds, male, Reports history of bilateral tubal ligation., Possible complication of hydrosalpinx on right per patient report. 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 She reported moderate flow. She reports mammography in 1989 that were normal. She reports having always had a normal Pap history and no STDs. She reports last colonoscopy 2 to 3 years ago. Social history: She does not smoke, drink or use drugs. 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 She is to Celia, age 77. He has diabetes. Family history significant for colon cancer in mother, grandmother, 2 sisters 1 brother and a half brother. She denies history of breast or cancers. Past medical history: Hypothyroidism, hypercholesterol, anemia Surgical history: Tonsils, tubal ligation, appendectomy Exam: BP 120/60 Ht 160 cm (5' 3) Wt 82.8 kg (182 lb 9.6 oz) BMI 32.35 kg/m?? No acute distress, awake, alert, oriented, pleasant Regular rate and rhythm S1-S2 + CTA B Abdomen slightly distended with tenderness to palpation surrounding umbilicus, unable to appreciate bowel sounds, right-sided and midline mass palpable, no hepatosplenomegaly : Normal-appearing external genitalia, no lymph nodes palpable in groins or inguinal regions, wellsupported urethra, small Magda speculum well- lubricated placed without difficulty to visualize atrophic vaginal mucosa without gross lesion, normal-appearing cervix without gross lesion, no blood in vault, no urine or stool noticed in vault, bimanual exam with large midline and right-sided mass with slight mobility, firm, tender to palpation Lower extremities no cyanosis clubbing or edema no calf tenderness, chafing dermis of feet bilateral Assessment and plan: 79-year-old para 4 with known colon cancer and bladder cancer, leak of stool and urine, planning for exploratory laparotomy 12/05/2019. 1.reviewed with patient requests for TUMBLING AND ROLLING SUPERVISOR presence at time of her surgery to evaluate state of pelvicorgans and removal of uterus tubes ovaries and cervix if needed. Advised patient that it is my understanding of the above-mentioned procedures would be to assist in maintaining function of her bowel and bladder with the goal of restoring continence. Advised if possible would remove right tube and ovary as needed, consider remainder of JOSE ROBERTO/BSO if needed. Reviewed with patient that she could continue to need further treatment, other surgeries or medications, chemotherapy or radiation. Advised patient that I would be seeking out opportunity to review her images for planning purposes. We discussed the r isks, benefits and alternatives to the above including but not limited to doing nothing at this timewhich patient states is not an option for her due to the leak of stool in her urine. We discussed the possibility of seeking evaluation and treatment at an alternate tertiary care center, taking time to seek further consultations however the patient states her surgery is already booked for 2 days fromnow and she is confident that this is the plan she desires. We reviewed that she may have a prolonged hospitalization involving a prolonged recovery, drains and ostomies, could need transfusion, and that the risk for infection and bleeding or venous thromboembolism is elevated due to her disease stateat baseline. Reviewed that there is a risk for morbidity and mortality and the patient states that she desires corrective surgery for her condition as this is unacceptable to her. I encouraged her to review our discussion today when she reconnects with her during their drive home. We spent approximately 30 minutes in direct jqki-my-ayen discussion, collection of historical data, review of records, and possible plan. Addendum: Images reviewed 12/04/2019 on CD in general surgery office, right-sided colon cancer with bladder involvement and possible right tube involvement, as seen on ultrasound, CT, MRI documented in this encounter Plan of Treatment Upcoming Encounters Date Type Specialty Care Team Description 11/06/2021 Office Visit Hematology and Oncology Michael Romero MD [facility] DR ONCOLOGY [place] [address] (Wo rk) 11/06/2021 Infusion Hematology and Oncology documented as of this encounter Procedures Procedure Name Priority Date/Time Associated Diagnosis Comme nts ORDS - PROVIDER 12/03/2019 12:00 AM Resul ts for this CARE SCAN EDT procedure are i n the results section. documented in this encounter Results SCAN DOC: ORDS - PROVIDER CARE (12/03/2019 12:00 AM EDT) Narrative 12/03/2019 12:00 AM EDT This result has an attachment that is no t available. Ordered by an unspecified provider. 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
--- OUTSIDE RECORDS SUMMARY | 2021-11-06 01:25 | XMS_ITS | Encounter Summary ---
:1940 [place] [address] Care Team Providers Name Role Phone Unavailable Primary Care Provider Unavailable Encounter Details Date Type Department Care Team Description 10/03/2019 Ancillary Procedure Radiology Library at Jorge Romero [facility] [place] [address] ONCOLOGY [phone] [place], [place] [address] (Wo rk) Social History Tobacco Use Types Packs/Day Years Used Date Never Assessed Sex Assigned at Date Recorded Not on file documented as of this encounter Plan of Treatment Upcoming Encounters Date Type Specialty Care Team Description 11/06/2021 Office Visit Hematology and Oncology Michael Romero MD [facility] ONCOLOGY [place], [place] [address] (Wo rk) 11/06/2021 Infusion Hematology and Oncology documented as of this encounter Procedures Procedure Name Priority Date/Time Associated Diagnosis Comme nts FILM LIBRARY Routine 10/03/2019 12:00 AM Results for this STORAGE ONLY CT EDT procedure ar e in ABDOMEN AND PELVIS the resul ts section. documented in this encounter Results Film Library- Storage Only CT Abdomen & Pelvis (10/03/2019 12:00 AM EDT) Specimen (Source) Anatomical Location Collection Method / Collectio n Time Received Time / Laterality Volume Narrative RAD - 04/16/2021 11:11 AM EST This exam is auto-finalizing. It's purpo se is for storage only. Michael Romero MD G FILM LIBRARY ORDERABLES Performing Organization Address City/State/ZIP Code Phon e Number DH RAD DH RAD [place] documented in this encounter Visit Diagnoses Not on filedocumented in this encounter
--- OUTSIDE RECORDS SUMMARY | 2021-11-06 01:25 | XMS_ITS | Encounter Summary ---
:1940 Author Organization [facility] [place] [address] Care Team Providers Name Role Phone Unavailable Primary Care Provider Unavailable Encounter Details Date Type Department Care Team Description 11/26/2019 Orders Only [facility] Dannie Cast[facility]eda, DO [place] [address] [place] [address] OBSTETRICS & [place] [address] [place] [address] [phone] (Wo rk) Social History Tobacco Use Types Packs/Day Years Used Date Never Assessed Sex Assigned at Date Recorded Not on file documented as of this encounter Plan of Treatment Upcoming Encounters Date Type Specialty Care Team Description 11/06/2021 Office Visit Hematology and Oncology Michael Romero MD [facility] DR ONCOLOGY [place], [place] [address] (Wo rk) 11/06/2021 Infusion Hematology and Oncology documented as of this encounter Visit Diagnoses Not on filedocumented in this encounter
--- OUTSIDE RECORDS SUMMARY | 2021-11-06 01:25 | XMS_ITS | Encounter Summary ---
:1940 Author Organization [facility] [place] [address] Care Team Providers Name Role Phone Unavailable Primary Care Provider Unavailable Encounter Details Date Type Department Care Team Description 11/26/2019 Telephone ADVERTISING SALES CONSULTANT at [facility] Sofia Rodriguez [address] [place] [phone] Social History Tobacco Use Types Packs/Day Years Used Date Never Assessed Sex Assigned at Date Recorded Not on file documented as of this encounter Plan of Treatment Upcoming Encounters Date Type Specialty Care Team Description 11/06/2021 Office Visit Hematology and Oncology Michael Romero MD [facility] DR ONCOLOGY [place], [place] [address] (Wo rk) 11/06/2021 Infusion Hematology and Oncology documented as of this encounter Visit Diagnoses Not on filedocumented in this encounter
--- OUTSIDE RECORDS SUMMARY | 2021-11-06 01:25 | XMS_ITS | Encounter Summary ---
:1940 [place] [address] Care Team Providers Name Role Phone None Primary Care Provider Unavailable Encounter Details Date Type Department Care Team Description 12/24/2020 Ancillary Procedure Radiology Library at Jorge Romero [facility] [place] [address] ONCOLOGY [phone] [place], [place] [address] (Wo rk) Social History Tobacco Use Types Packs/Day Years Used Date Never Smoker Smokeless Tobacco: Never Used Sex Assigned at Date Recorded Not on file documented as of this encounter Plan of Treatment Upcoming Encounters Date Type Specialty Care Team Description 11/06/2021 Office Visit Hematology and Oncology Michael Romero MD [facility] ER [address] [place], [place] [address] (Wo rk) 11/06/2021 Infusion Hematology and Oncology documented as of this encounter Procedures Procedure Name Priority Date/Time Associated Comments Diagnosis FILM LIBRARY STORAGE Routine 12/24/2020 12:00 AM Results for this ONLY ULTRASOUND EDT procedure ar e in STUDY the results section. documented in this encounter Results Film Library- Storage Only Ultrasound Study (12/24/2020 12:00 AM EDT) Specimen (Source) Anatomical Location Collection Method / Collectio n Time Received Time / Laterality Volume Narrative RAD - 04/16/2021 10:53 AM EST This exam is auto-finalizing. It's purpo se is for storage only. Michael Romero MD IMG FILM LIBRARY ORDERABLES Performing Organization Address City/State/ZIP Code Phon e Number DH RAD DH RAD [place] documented in this encounter Visit Diagnoses Not on filedocumented in this encounter Care Teams Optical Engineering Manager Relationship Specialty Start Date End Date None PCP - General 12/03/19 None documented as of this encounter
--- OUTSIDE RECORDS SUMMARY | 2021-11-06 01:25 | XMS_ITS | Encounter Summary ---
:1940 [place] [address] Care Team Providers Name Role Phone None Primary Care Provider Unavailable Encounter Details Date Type Department Care Team Description 10/31/2020 Ancillary Procedure Radiology Library at Jorge Romero [facility] [place] [address] ONCOLOGY [phone] [place], [place] [address] (Wo rk) Social History Tobacco Use Types Packs/Day Years Used Date Never Smoker Smokeless Tobacco: Never Used Sex Assigned at Date Recorded Not on file documented as of this encounter Plan of Treatment Upcoming Encounters Date Type Specialty Care Team Description 11/06/2021 Office Visit Hematology and Oncology Michael Romero MD [facility] [address] [place], [place] [address] (Wo rk) 11/06/2021 Infusion Hematology and Oncology documented as of this encounter Procedures Procedure Name Priority Date/Time Associated Diagnosis Comme nts FILM LIBRARY Routine 10/31/2020 12:00 AM Results for this STORAGE ONLY MR EDT procedure ar e in PELVIS the results section. documented in this encounter Results Film Library- Storage Only MR Pelvis (10/31/2020 12:00 AM EDT) Specimen (Source) Anatomical Location Collection Method / Collectio n Time Received Time / Laterality Volume Narrative RAD - 04/16/2021 10:59 AM EST This exam is auto-finalizing. It's purpo se is for storage only. Michael Romero MD IMG FILM LIBRARY ORDERABLES Performing Organization Address City/State/ZIP Code Phon e Number DH RAD DH [place], [place] documented in this encounter Visit Diagnoses Not on filedocumented in this encounter Care Teams Pharmaceutical Salesperson Relationship Specialty Start Date End Date None PCP - General 12/03/19 None documented as of this encounter
--- OUTSIDE RECORDS SUMMARY | 2021-11-06 01:25 | XMS_ITS | Encounter Summary ---
:1940 [place] [address] Care Team Providers Name Role Phone None Primary Care Provider Unavailable Encounter Details Date Type Department Care Team Description 01/23/2020 Ancillary Procedure Radiology Library at Jorge Romero [facility] [place] [facility] [place] [address] ONCOLOGY [phone] [place], [place] [address] (Wo rk) Social History Tobacco Use Types Packs/Day Years Used Date Never Smoker Smokeless Tobacco: Never Used Sex Assigned at Date Recorded Not on file documented as of this encounter Plan of Treatment Upcoming Encounters Date Type Specialty Care Team Description 11/06/2021 Office Visit Hematology and Oncology Michael Romero MD [facility] ER ONCOLOGY [place], [place] [address] (Wo rk) 11/06/2021 Infusion Hematology and Oncology documented as of this encounter Procedures Procedure Name Priority Date/Time Associated Diagnosis Comme nts FILM LIBRARY Routine 01/23/2020 12:00 AM Results for this STORAGE ONLY CT EDT procedure ar e in CHEST ABDOMEN the results PELVIS section. documented in this encounter Results Film Library- Storage Only CT Chest Abdomen Pelvis (01/23/2020 12:00 AM EDT) Specimen (Source) Anatomical Location Collection Method / Collectio n Time Received Time / Laterality Volume Narrative RAD - 04/16/2021 10:56 AM EST This exam is auto-finalizing. It's purpo se is for storage only. Michael Romero MD IMG FILM LIBRARY ORDERABLES Performing Organization Address City/State/ZIP Code Phon e Number DH RAD DH [place], [place] documented in this encounter Visit Diagnoses Not on filedocumented in this encounter Care Teams Military Exchange Wireless Manager Relationship Specialty Start Date End Date None PCP - General 12/03/19 None documented as of this encounter
--- OUTSIDE RECORDS SUMMARY | 2021-11-06 01:25 | XMS_ITS | Encounter Summary ---
:1940 [place] [address] Care Team Providers Name Role Phone None Primary Care Provider Unavailable Encounter Details Date Type Department Care Team Description 10/04/2020 Ancillary Procedure Radiology Library at Jorge Romero [facility] [place] [facility] [place] [address] ONCOLOGY [phone] [place], [place] [address] (Wo rk) Social History Tobacco Use Types Packs/Day Years Used Date Never Smoker Smokeless Tobacco: Never Used Sex Assigned at Date Recorded Not on file documented as of this encounter Plan of Treatment Upcoming Encounters Date Type Specialty Care Team Description 11/06/2021 Office Visit Hematology and Oncology Michael Romero MD [facility] [address] [place], [place] [address] (Wo rk) 11/06/2021 Infusion Hematology and Oncology documented as of this encounter Procedures Procedure Name Priority Date/Time Associated Diagnosis Comme nts FILM LIBRARY Routine 10/04/2020 12:00 AM Results for this STORAGE ONLY NM EDT procedure ar e in PET/CT the results section. documented in this encounter Results Film Library- Storage Only NM Pet / CT (10/04/2020 12:00 AM EDT) Specimen (Source) Anatomical Location Collection Method / Collectio n Time Received Time / Laterality Volume Narrative RAD - 04/16/2021 11:01 AM EST This exam is auto-finalizing. It's purpo se is for storage only. Michael Romero MD IMG FILM LIBRARY ORDERABLES Performing Organization Address City/State/ZIP Code Phon e Number DH RAD DH RAD [place], [place] documented in this encounter Visit Diagnoses Not on filedocumented in this encounter Care Teams Hand Driller Relationship Specialty Start Date End Date None PCP - General 12/03/19 None documented as of this encounter
--- OUTSIDE RECORDS SUMMARY | 2021-11-06 01:25 | XMS_ITS | Encounter Summary ---
:1940 Author Organization [place] [address] Care Team Providers Name Role Phone None Primary Care Provider Unavailable Reason for Visit Reason Onset Date Comments Schedule External Case 12/03/2019 Encounter Details Date Type Department Care Team Description 12/03/2019 Telephone [facility]IC[facility] at [facility] Noreen Mendoza External [facility] Park [address] [place] [phone] Social History Tobacco Use Types Packs/Day Years Used Date Never Smoker Smokeless Tobacco: Never Used Sex Assigned at Date Recorded Not on file documented as of this encounter Miscellaneous Notes Telephone Encounter - Noreen Mendoza - 12/03/2019 4:36 PM EDT I have scheduled Joy's surgery for 12/04 at 7:30am at [facility] with Dr. Epperson (along with Drs. Smyth & Kathleen). She's having a JOSE ROBERTO, BSO with Dr. Epperson. Noreen CPT code 64715, Am Admit documented in this encounter Plan of Treatment Upcoming Encounters Date Type Specialty Care Team Description 11/06/2021 Office Visit Hematology and Oncology Michael Romero MD [facility] ONCOLOGY [place], [place] [address] (Wo rk) 11/06/2021 Infusion Hematology and Oncology documented as of this encounter Visit Diagnoses Not on filedocumented in this encounter Care Teams Business Education Instructor Relationship Specialty Start Date End Date None PCP - General 12/03/19 None documented as of this encounter
--- OUTSIDE RECORDS SUMMARY | 2021-11-06 01:25 | XMS_ITS | Encounter Summary ---
:1940 [place] [address] Care Team Providers Name Role Phone Unavailable Primary Care Provider Unavailable Encounter Details Date Type Department Care Team Description 10/23/2019 Ancillary Procedure Radiology Library at Jorge Romero [facility] [place] [address] ONCOLOGY [phone] [place], [place] [address] (Wo rk) Social History Tobacco Use Types Packs/Day Years Used Date Never Assessed Sex Assigned at Date Recorded Not on file documented as of this encounter Plan of Treatment Upcoming Encounters Date Type Specialty Care Team Description 11/06/2021 Office Visit Hematology and Oncology Michael Romero MD [facility] ER [address] [place], [place] [address] (Wo rk) 11/06/2021 Infusion Hematology and Oncology documented as of this encounter Procedures Procedure Name Priority Date/Time Associated Comments Diagnosis FILM LIBRARY STORAGE Routine 10/23/2019 12:00 AM Results for this ONLY ULTRASOUND EDT procedure ar e in STUDY the results section. documented in this encounter Results Film Library- Storage Only Ultrasound Study (10/23/2019 12:00 AM EDT) Specimen (Source) Anatomical Location Collection Method / Collectio n Time Received Time / Laterality Volume Narrative BHARTI - 04/16/2021 11:10 AM EST This exam is auto-finalizing. It's purpo se is for storage only. Michael Romero MD Jose FILM LIBRARY ORDERABLES Performing Organization Address City/State/ZIP Code Phon e Number RAD [facility] [place], [place] documented in this encounter Visit Diagnoses Not on filedocumented in this encounter
--- OUTSIDE RECORDS SUMMARY | 2021-11-06 01:25 | XMS_ITS | Encounter Summary ---
:1940 Author Organization [facility] [place] [address] Care Team Providers Name Role Phone None Primary Care Provider Unavailable Encounter Details Date Type Department Care Team Description 04/01/2021 External Results Medical Records Provider, [place] [address] Social History Tobacco Use Types Packs/Day Years Used Date Never Smoker Smokeless Tobacco: Never Used Sex Assigned at Date Recorded Not on file documented as of this encounter Plan of Treatment Upcoming Encounters Date Type Specialty Care Team Description 11/06/2021 Office Visit Hematology and Oncology Michael Romero MD [facility] ER DR ONCOLOGY [place], [place] [address] (Wo rk) 11/06/2021 Infusion Hematology and Oncology documented as of this encounter Procedures Procedure Name Priority Date/Time Associated Diagnosis Comme nts SURGICAL PATHOLOGY Routine 04/01/2021 Results f or this SCAN procedure are i n the results section . documented in this encounter Results Scan Doc: Surgical Pathology (04/01/2021) Narrative This result has an attachment that is no t available. Historical Provider MD MALONEY MGR SCAN EXT ORDR/RSLT documented in this encounter Visit Diagnoses Not on filedocumented in this encounter Care Teams Wine Bottle Inspector Relationship Specialty Start Date End Date None PCP - General 12/03/19 None documented as of this encounter
--- OUTSIDE RECORDS SUMMARY | 2021-11-06 01:25 | XMS_ITS | Encounter Summary ---
:1940 [place] [address] Care Team Providers Name Role Phone Unavailable Primary Care Provider Unavailable Encounter Details Date Type Department Care Team Description 10/29/2019 Ancillary Procedure Radiology Library at Jorge Romero [facility] [place] [address] ONCOLOGY [phone] [place], [place] [address] (Wo rk) Social History Tobacco Use Types Packs/Day Years Used Date Never Assessed Sex Assigned at Date Recorded Not on file documented as of this encounter Plan of Treatment Upcoming Encounters Date Type Specialty Care Team Description 11/06/2021 Office Visit Hematology and Oncology Michael Romero MD [facility] ER ONCOLOGY [place], [place] [address] (Wo rk) 11/06/2021 Infusion Hematology and Oncology documented as of this encounter Procedures Procedure Name Priority Date/Time Associated Diagnosis Comme nts FILM LIBRARY Routine 10/29/2019 12:00 AM Results for this STORAGE ONLY MR EDT procedure ar e in PELVIS the results section. documented in this encounter Results Film Library- Storage Only MR Pelvis (10/29/2019 12:00 AM EDT) Specimen (Source) Anatomical Location Collection Method / Collectio n Time Received Time / Laterality Volume Narrative BHARTI - 04/16/2021 11:09 AM EST This exam is auto-finalizing. It's purpo se is for storage only. Michael Romero MD G FILM LIBRARY ORDERABLES Performing Organization Address City/State/ZIP Code Phon e Number BHARTI DH [place]ARTI [place] documented in this encounter Visit Diagnoses Not on filedocumented in this encounter
--- OUTSIDE RECORDS SUMMARY | 2021-11-06 01:27 | XMS_ITS | Encounter Summary ---
:1940 Author Organization [facility] Address [address] [place] [address] Care Team Providers Name Role Phone Manuel Isaacs MD Primary Care Provider Encounter Details Date Type Department Care Team Description 02/18/2021 Lab Requisition [facility] Jamie Jean-Baptiste E ncounter for other Pathology & MD general examination Laboratory Medicine [address] [place] [address] [address] [place] [address] [place], [place] [id number] Social History Tobacco Use Types Packs/Day Years Used Date Never Smoker Smokeless Tobacco: Never Used Alcohol Use Standard Drinks/Week Comments No 0 (1 standard drink = 0.6 oz pure alcoho l) Sex Assigned at Date Recorded Not on file documented as of this encounter Functional Status Functional Status Response Date of Assessment Are you deaf or do you have serious difficulty hearing? No 09/04/2015 Are you blind or do you have serious difficulty seeing, No 09/04/2015 even when wearing glasses? Do you have serious difficulty walking or climbing No 09/04/2015 stairs? (5 years old or older) Do you have difficulty dressing or bathing? (5 years old No 09/04/2015 or older) Because of a physical, mental, or emotional condition, No 12/23/2015 does this person have difficulty doing errands alone such as visiting a doctor's office or shopping? Cognitive Status Response Date of Assessment Because of a physical, mental, or emotional condition, No 12/23/2015 does this person have serious difficulty concentrating, remembering, or making decisions? documented as of this encounter Plan of Treatment Not on filedocumented as of this encounter Procedures Procedure Name Priority Date/Time Associated Diagnosis Comme nts SURGICAL PATHOLOGY Today 02/18/2021 8:57 EST Re sults for this procedure are i n the results section. documented in this encounter Results SURGICAL PATHOLOGY (02/18/2021 8:57 EST) Note to Patient The following [facility] MEDICAL pathology results have CENTER been interpreted by LABORATORY your pathologist and SERVICES may be available to you before your health provider has had the opportunity to review them. Please allow time for your provider to receive these results and explore management options, if applicable. Final Diagnosis A. 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 CENTER - See comment. LABORATORY SERVICES Diagnosis Comment Immunoperoxidase stains were performed on this case to further characterize the lesion. [facility] ANTIBODY(CLONE)(BLOCK):RESULT LABORATORY CDX-2 (EP25, Leica) (A1): Positive SERVIC ES NOTE: One or more of the re agents used in immunoperoxidase testing in this case may not have been cleared or approved by the U.S. Food and Drug Administration (FDA). The FDA has determined that such cl earance or approval is not n ecessary. These tests are used for clinical purposes. They should not be regarded as investigational or for research. These reagents' performance characteristics have been de termined by [facility] and/or by the referring laboratory. The positive and negative controls worked appropriately. If immunoperoxidase staining has been performed on alcoh ol fixed cytology specimens, which has not been fully validated, the assays should be interpreted with caution and correlated with clinical data. This laboratory is certified under the Clinical Laborato ry Improvement Amendments of 1988 (CLIA-88) as qualified to perform high complexity clinical laboratory testing. Motivational Speaker slides of thi s case were reviewed at the gastrointestinal/liver intradepartmental consultation conference. (RW) Attestation There was significant [facility] MEDICAL Electr onically resident/fellow CENTER signed by Ab ileana Cassidy involvement in the LABORATORY Merrill Renee on diagnostic evaluation SERVICES 2020 at 0938 of this case. By the signature below, the attending physician certifies that they have personally conducted a gross and/or microscopic examination of the described specimens and rendered or confirmed the above diagnosis. Intraoperative A. [facility] MEDICAL Consultation OMENTAL MASS, UNORIENTED EXCISION (SPA1): CENTER - Positive for malignancy. Adenocarcinoma. LABORATORY - Diagnosis of malignancy te lephoned to Dr. Jean-Baptiste in OR 1 (x301) at 9:25 AM on 02/18/2021. Dr. Ifeanyi Jain 02/18/2021 SERVICES Clinical History Omental mass [facility] LABORATORY SERVICES Gross Description A. [facility] Received fresh labelled with proper patient identification (initials H, I) and omental mass is an unoriented 2.0 x 2.0 x 1.0 cm ovoid yellow-pate fibrofatty tissue with palpable consolidation. The [facility] CENTER ins are inked. The tissue is bisected to show a solid pate mass (0.8 cm in greatest dimension) with ill-defined borders from the surrounding fat. A traffic workforce representative section was frozen; however unable to pe [facility] frozen section due to technical issue with the cryostat (build up of ice, unable to advance/retract specimen). Therefore, scrape/smear slide was prepared and stained with Diff-Quik with the [facility] SERVICES retation as rendered above. The majority of the specimen is submitted in A1-A4 with the section that was frozen in A1. LOS ESQUIVEL(ASCP) 02/19/2021 9:54 Resident/Fellow: Sheela Reyna, [facility] LABORATORY SERVICES Performing Lab [facility] LAB [facility] LABORATORY SERVICES Scanned Images [facility] LABORATORY SERVICES Specimen Tissue - Soft tissue (navigational jose angel pt) Performing Organization Address City/State/ZIP Code Phon e Number [facility] LABORATORY [address] [place] [address] SERVICES documented in this encounter Visit Diagnoses Diagnosis Encounter for other general examination documented in this encounter Care Teams Package Dyeing Machine Operator Relationship Specialty Start Date End Date Manuel Isaacs MD PCP - General 04/02/[address] [place] [phone] documented as of this encounter
--- OUTSIDE RECORDS SUMMARY | 2021-11-06 01:27 | XMS_ITS | Encounter Summary ---
:1940 Author Organization [facility] Address [address] [place] [address] Care Team Providers Name Role Phone Nayan Hilton Primary Care Provider Reason for Visit Reason Onset Date Comments Coordination Of Care 11/22/2019 Encounter Details Date Type Department Care Team Description 11/22/2019 Telephone [facility] Sophie Benson RN Coordination Of Care General Surgery - [id number] [place] [address] Social History Tobacco Use Types Packs/Day Years Used Date Never Smoker Smokeless Tobacco: Never Used Alcohol Use Standard Drinks/Week Comments No 0 (1 standard drink = 0.6 oz pure alcoho l) Sex Assigned at Date Recorded Not on file COVID-19 Exposure Response Date Recorded In the last month, have you been in contact with No / Unsure 11/19/2019 12:19 EDT someone who was confirmed or suspected to have Coronavirus / COVID-19? documented as of this encounter Functional Status [...] making decisions? documented as of this encounter Miscellaneous Notes Telephone Encounter - Sophie Benson, RN - 11/22/2019 1406 EDT JEANIE on RN line at PCP office in [place]. I have spoken with Mohamud from [facility]. I have relayed Joy's reluctance to accept she might have an ostomy and have asked her to relay this to Dr Isaacs. I have also asked them to help us arrange COVID testing as Joy would like it done in [place]. documented in this encounter Plan of Treatment Not on filedocumented as of this encounter Visit Diagnoses Not on filedocumented in this encounter Care Teams French Teacher Relationship Specialty Start Date End Date Nayan Hilton DO PCP - General 06/17/17 04/01/20 documented as of this encounter
--- OUTSIDE RECORDS SUMMARY | 2021-11-06 01:27 | XMS_ITS | Encounter Summary ---
:1940 Author Organization [facility] Address [address] [place] [address] Care Team Providers Name Role Phone Nayan Hilton Primary Care Provider Encounter Details Date Type Department Care Team Description 11/19/2019 Orders Only [facility] Sophie Benson RN General Surgery - Main [address] [place] [id number] [address] [place] [address] Social History Tobacco Use Types Packs/Day Years [...] making decisions? documented as of this encounter Ordered Prescriptions Prescription Sig Dispensed Refills Start Date End Date polyethylene glycol Patient to follow one 1 Bottle 0 11/18 (GOLYTELY) [id number] time directions as -5.86 gram suspension directed by Dr Zamora office for surgery prep chlorhexidine gluconate 4 Use as directed in 2 Each 0 % (E-Z SCRUB 107) sponge pre-op showering instructions. neomycin 500 mg tablet Patient to take 2 6 Tab 0 2019 tablets at 3 PM, 4 PM and 10 PM day before surgery. metroNIDAZOLE (FLAGYL) Patient to take one 3 Tab 0 11/02 500 mg tablet tablet at 3 PM, 4 PM and 10 PM day before surgery. documented in this encounter Plan of Treatment Not on filedocumented as of this encounter Visit Diagnoses Not on filedocumented in this encounter Care Teams Clinical Rehab Specialist Relationship Specialty Start Date End Date Nayan Hilton DO PCP - General 06/17/17 04/01/20 documented as of this encounter
--- OUTSIDE RECORDS SUMMARY | 2021-11-06 01:27 | XMS_ITS | Encounter Summary ---
:1940 Author Organization [facility] Address [address] [place] [address] Care Team Providers Name Role Phone Manuel Isaacs MD Primary Care Provider Encounter Details Date Type Department Care Team Description 08/28/2021 Lab Requisition [facility] Outr Resulting Lab, Pathology & Laboratory Provider [facility] [address] [place] [address] Social History Tobacco Use Types Packs/Day Years [...] Name Priority Date/Time Associated Diagnosis Comme nts CEA Routine 08/28/2021 6:55 EDT Results for this procedure are i n the results section . documented in this encounter Results CEA (08/28/2021 6:55 EDT) CEA 3.4 See Note [facility] Comment: ng/mL LABORATORY % Distribution of CEA (ng/mL): SERVICES ??0.0 - 2.5 in 98.2% of Nonsmokers and 87.3% of Smoke rs ??2.6 - 5 in 1.8% of Nonsmokers and 8% of Smokers ??5.1 - 10.1 in 4.7% of Smokers NOTE: Serum CEA concentration shou ld not be interpeted as absolute evidence for the presence or absence of malignant disease. ?? Assayed on Siemens [employer] taur XPT using chemiluminescent technology. ??Values obtained by different assay methods cannot be used interchangeably. Specimen Blood - Venous blood (substance) Performing Organization Address City/State/ZIP Code Phon e Number [facility] LABORATORY [address] [place] [address] SERVICES documented in this encounter Visit Diagnoses Not on filedocumented in this encounter Care Teams Service Center Specialist Relationship Specialty Start Date End Date Manuel Isaacs MD PCP - General 04/02/[address] [place] [phone] documented as of this encounter
--- OUTSIDE RECORDS SUMMARY | 2021-11-06 01:27 | XMS_ITS | Encounter Summary ---
:1940 Author Organization [facility] Address [address] [place] [address] Care Team Providers Name Role Phone Nayan Hilton Primary Care Provider Reason for Visit Reason Comments New Patient Visit Flex/sig Colon Cancer Encounter Details Date Type Department Care Team Description 11/19/2019 Office Visit [facility] Valerie Zamora MD Malignant neoplasm of General Surgery - [address] [place] [address] ([facility]) (Primary [address] [facility], Main Dx) [place] [address] Pavilion, [place] [phone] (Wo rk) Social History Tobacco Use Types [...] / COVID-19? documented as of this encounter Last Filed Vital Signs Vital Sign Reading Time Taken Comments Blood Pressure - - Pulse - - Temperature - - Respiratory Rate - - Oxygen Saturation - - Inhaled Oxygen Concentration - - Weight 83 kg (183 lb) 11/19/2019 0925 EDT Height 160 cm (5' 2.99) 11/19/2019 0925 EDT Body Mass Index 32.43 11/19/2019 0925 EDT documented in this encounter Functional Status Functional Status Response [...] Sig Dispensed Refills Start Date End Date ciprofloxacin HCl (CIPRO) Take 1 Tab by 56 Tab 0 020 12/17/2019 500 mg tablet mouth 2 times daily for 28 days. documented in this encounter Progress Notes Javon Benson RN - 11/19/2019 0996 EDT Patient Education Topic: SSI/Ostomy Teaching Method: Handout and Verbal Taught to: Family and Patient Barriers: None Outcomes: verbalized understanding Signature: JAVON BENSON RN Full Surgical Prep and brief ostomy teaching reviewed with Joy and her . I can tell they are both overwhelmed and not in favor of an ostomy. I will send the prescriptions to [facility] in [place]. I have also encouraged Joy to increase her ambulation and increase her caloric and protein needs starting immediately. I was supervised by Dr Zamora who was present and immediately available in the office suite. JAVON BENSON RN 11/19/2019 14:58 Valerie Acuna MD - 11/19/2019 0900 EDT Colorectal Surgery Chief Complaint: Cecum/sigmoid cancer HPI: Patient is a 79 y.o. female being seen at the request of Nayan Hilton DO for evaluation of cecum/sigmoid cancer. Patient has a history of obstructive sleep apnea and hypothyroidism. She states that she became veryweak and lost her balance while shopping with her . When she had underwent evaluation, she was found to have iron deficiency anemia. She therefore underwent CT scans and colonoscopy up at [facility]. 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 Unable totraverse the sigmoid cancer. She is having bowel movements about 3 times daily with no control. About a year prior to this, she also had no urinary or bowel control. Of note, when she did an enema, she was not able to retain the fluid. She has been on Bactrim for her UTI. She does pass solid through her urine, but denies pneumaturia. She developed a rash on her lower extremities due to the Bactrim. She states she is developed rashes in the past due to this. Of note, patient did have an admission for abdominal sepsis of unknown origin which was presumed to be from perforated appendicitis back in 2016. The patient and her believe that this was due to her colonoscopy which was done about a year prior--her particularly thinks that the colon was injured at the time of colonoscopy. She did not have a colonoscopy following this episode. She denies obstructive symptoms. She has been losing weight and is down at least 30 pounds. Her baseline is 212 pounds. Last colonoscopy was September 2013 with an adenomatous colon polyp, diverticulosis. 4 pregnancies, vaginal deliveries, significant tears She underwent a stress test about 3 years ago for eye surgery. She does not exercise, she can walk about 25 feet before fatiguing. She does not complain of chest pain or shortness of breath. She does not use her CPAP. Surgical history: Tonsillectomy 10/26/2019: White blood count 8.8, hemoglobin 9.4, hematocrit 31.2, platelet 308 Sodium 135, potassium 3.5, BUN 11, creatinine 1.8, albumin 3.3 T bili 8.4, alk phos 144, ALT 37, AST 55 CEA: 1.5, CA-1 25 less than 30 Urine cytology with abnormal cells Family history: Mother with colon cancer, brother with lung cancer, sister with colon polyps (patient said she was checked for the colon cancer gene and was negative) Social history, no alcohol use, never smoker. Works for [employer], [employer] and [employer] CT scan of the chest abdomen and pelvis: Chest with a mediastinal node that is indeterminate. CT of the abdomen pelvis with a tumor that is likely arising in the cecum and invading into the sigmoid colon, dome of bladder, and possibly uterus adnexa.. There is no evidence of obstruction. Review of Symptoms: Gen: no fevers, chills, sweats, + weight loss HEENT: no migraines, no changes in vision, no hearing loss CV: no CP or palpitations, able to climb a flight of stairs w/o difficulty Pulm: no SOB, no hx of asthma or inhaler use GI: +FI : +UI, dysuria Musculoskeletal: no arthralgias or myalgias Neuro: no seizures, no numbness or tingling in the extremities Endocrine: no thyroid problems, no diabetes Psych: no anxiety or depression Heme: no hx of bleeding or bruising easily Skin: no hx of rashes, eczema, or psoriasis Mobility: Ambulates with walker at home and wheelchair in clinic PMH PSH Past Medical History: Diagnosis Date ??? Hyperlipidemia ??? Obesity, Class II, BMI 35-39.9, with comorbidity ??? Thyroid disease ??? Urge incontinence No past surgical history on file. Social History Family history Social History Tobacco Use ??? Smoking status: Never Smoker ??? Smokeless tobacco: Never Used Substance Use Topics ??? Alcohol use: No Alcohol/week: 0.0 standard drinks Family History Problem Relation Age of Onset ??? Breast Cancer Mother 83 ??? Colon Cancer Mother 79 ??? Colon Polyps Mother ??? Colon Cancer Sister 67 rectal ??? Colon Cancer Maternal Grandfather 66 ??? Colon Polyps Sister Current Outpatient Medications Medication ??? aspirin chewable 81 mg tablet ??? ciprofloxacin HCl (CIPRO) 500 mg tablet ??? levothyroxine (SYNTHROID) 112 mcg tablet ??? oxybutynin (DITROPAN) 5 mg tablet No current facility-administered medications for this visit. Allergies Allergies Allergen Reactions ??? Sulfamethoxazole-Trimethoprim Objective: Height 160 cm (62.99), weight 83 kg (183 lb). Physical Exam: Gen: awake, alert, and oriented x 3, NAD Neck: soft, no thyromegaly, no carotid bruits, no cervical lymphadenopathy CV: RRR no M/R/G Pulm: CTA bilat, no wheezes or rhonchi Abd: soft, nontender, nondistended, +bowel sounds, obese, full in the lower abdomen Ext: warm, well perfused,no edema Diagnostic flex sig procedure Note I explained the procedure, as well as benefits of the procedure, alternative treatments, and consequences of no treatment to patient. Verbal consent for the procedure was obtained. A pre-procedure verification was conducted prior to the procedure. Final verification/timeout immediately prior to procedure has been conducted by the attending provider, including all members of the procedural team as appropriate to their involvement in the procedure. The patient's identity, procedure, and when applicable the: side/site, patient position, availability of special equipment or special requirements was verbally confirmed prior to the procedure. With a nurse aide evaluator present the patient was placed in the left lateral decubitus position the buttocks were spread. The anoscope was inserted and the anal canal was inspected circumferentially. Findings were Anus: patulous, minimal tone Unable to advance beyond the proximal rectum due to formed stool. Patient was unable to retain insufflation. Data Review: Labs: CBC: Lab Results Component Value Date WBC 9.90 09/07/2015 RBC 3.81 (L) 09/07/2015 HGB 11.2 (L) 09/07/2015 HCT 34.3 (L) 09/07/2015 PLT 130 (L) 09/07/2015 CMP: Lab Results Component Value Date NA 140 09/06/2015 K 4.0 09/06/2015 CL 103 09/06/2015 CO2 26 09/06/2015 BUN 12 09/06/2015 CREATININE 0.63 09/06/2015 MG 2.1 09/06/2015 PHOS 3.0 09/06/2015 CALCIUM 7.4 (L) 09/03/2015 LIPASE 31 09/03/2015 AST 44 09/06/2015 ALT 49 09/06/2015 ALKPHOS 174 (H) 09/06/2015 Cardiac: Lab Results Component Value Date TROPONINI 0.289 (H) 09/04/2015 Coagulation: No results found for: PROTIME, INR, PTTABG: Assessment: Joy Armstrong is a(n) 79 y.o. old female with a very complicated colon cancer. It looks to arise from the cecum and invade the sigmoid, bladder, and and possibly uterus, adnexa and ovaries. Plan: -I explained that it is unlikely the colonoscopy because perforation of her appendix and abdominal sepsis since the timing was almost a year from her colonoscopy in 2013. The continues to believe that the sepsis was due to the prior colonoscopy. I do think it is unusual that she did not undergo colonoscopy following this episode, and this may mean that she had tumor at the time. -We will plan an open right hemicolectomy with segmental sigmoid colectomy. I think it is likely that the primary was in the cecum and has invaded into the sigmoid, bladder, and adnexa. If this were 2 separate primaries, we could discuss that option of a total abdominal colectomy, I do not think she would be a great candidate for this given the risks of dehydration with an ileostomy. Given the patient's fecal incontinence, I think a colorectal anastomosis would make her function even worse. It seems as though she had had very long-term fecal incontinence. With this in mind, I have recommended an end colostomy. -This is large surgery with a lot of risk, more than average mortality, cardiac and pulmonary risk--although patient does not have much in the way of cardiac and pulmonary diagnoses, she has fairly limited function. Family seems to have a hard time understanding this, and the is demanding thatwe do the surgery quickly. I have explained to him that I would like her evaluated by her primary care physician for cardiac and pulmonary risk stratification and optimization. I am worried about her and her 's unreasonable expectations for her care -We further discussed CODE STATUS. Patient is currently full resuscitation. She would want to undergo CPR and prolonged intubation except if it were only for heroic measures. She further says that she does not want to be a burden on her family and would not want to be at a nursing facility for the remainder of her life. If she could not eat for herself, she would not want to be on a feeding tube for the rest of her life. She would consider dialysis if necessary. .Valerie Zamora MD 11/19/2019 11:16 documented in this encounter Plan of Treatment Not on filedocumented as of this encounter Results (ABNORMAL) COMPLETE BLOOD COUNT (11/19/2019 12:36 EDT) [facility] WBC 9.83 4.00 - 12.40 K/cmm [facility] RBC 3.57 (L) 3.86 - 5.04 M/cmm [facility] Hemoglobin 8.6 (L) 11.6 - 15.2 gm/dL [facility] HCT 29.4 (L) 34.9 - 44.4 % [facility] MCV 82 81 - 98 fl [facility] MCH 24.1 (L) 26.7 - 33.3 pg [facility] Hypochromia 1+ [facility] MCHC 29.3 (L) 32.1 - 35.9 gm/dL [facility] RDW-CV 17.0 (H) <14.7 % [facility] RDW-SD 49.7 <50.4 fl [facility] Anisocytosis 1+ [facility] PLT 626 (H) 141 - 377 K/cmm [facility] MPV 9.1 (L) 9.5 - 12.7 fl [facility] Specimen Blood - Venous blood (substance) Performing Organization Address City/[facility]/ZIP Code Phon e Number [facility] [address] [place] [address] SERVICES CREATININE (11/19/2019 12:36 EDT) Creatinine 0.81 0.52 - 1.04 [facility] mg/dL LABORATORY SERVICES eGFR 70Comment: eGFR >60 [facility] calculated using mL/min/1.73m2 LABORATORY SERVICES CKD-EPI equation for non- Americans. Multiply eGFR by 1.16 for patients. Specimen Blood - Venous blood (substance) Performing Organization Address City/[facility]/ZIP Code Phon e Number [facility] [address] [place] [address] SERVICES BUN (11/19/2019 12:36 EDT) Pathologist Sig nature BUN 18 10 - 26 mg/dL [facility] Specimen Blood - Venous blood (substance) Performing Organization Address City/State/ZIP Code Phon e Number [facility] [address] [place] [address] SERVICES (ABNORMAL) ELECTROLYTES (11/19/2019 12:36 EDT) Pathologist Sig nature Sodium 132 (L) 136 - 145 mEq/L [facility] Potassium 4.3 3.5 - 5.0 mEq/L [facility] Chloride 97 96 - 110 mEq/L [facility] CO2 Total 25 22 - 32 mEq/L [facility] Specimen Blood - Venous blood (substance) Performing Organization Address City/State/ZIP Code Phon e Number [facility] [address] [place] [address] SERVICES PRE-OP BLOOD BANK DRAW (11/19/2019 12:36 EDT) Pathologist Sig nature Hold BB Specimen valid up to [facility] 30 days from BLOOD BANK collection date. Specimen Blood - Venous blood (substance) Performing Organization Address City/[facility]/ZIP Code Phon e Number [facility] BLOOD BANK [address] [place] [address] documented in this encounter Visit Diagnoses Diagnosis Malignant neoplasm of ascending colon (H CC-CMS) (HCC) - Primary Malignant neoplasm of ascending colon documented in this encounter Discontinued Medications Medication Sig Discontinue Reason Start Date End Date sulfamethoxazole-trimetho Take 1 Tab by mouth 11/14/19 20 11/19/2019 prim (BACTRIM DS) 800-160 2 times daily for mg per tablet 14 days. documented as of this encounter Orders Admission Count Last Ordered Date First Ordered Date ADMIT TO INPATIENT 1 11/19/2019 documented in this encounter Care Teams Slice Cutting Machine Operator Helper Relationship Specialty Start Date End Date Nayan Hilton DO PCP - General 06/17/17 04/01/20 documented as of this encounter
--- OUTSIDE RECORDS SUMMARY | 2021-11-06 01:27 | XMS_ITS | Encounter Summary ---
:1940 Author Organization [facility] Address [address] [place] [address] Care Team Providers Name Role Phone YobaniNyaan Pedro HARRISON Primary Care Provider Manuel Isaacs MD Primary Care Provider Encounter Details Date Type Department Care Team Description 12/27/2019 Lab Requisition [facility] Jamie Jean-Baptiste E ncounter for other Pathology & general examination Laboratory Medicine [address] [place] [address] [address] [place] [address] [place], [place] [address] Social History Tobacco Use Types Packs/Day Years [...] Associated Diagnosis Comme nts SURGICAL PATHOLOGY Today 12/26/2019 15:05 Resul ts for this EDT procedure are i n the results section. documented in this encounter Results SURGICAL PATHOLOGY (12/26/2019 15:05 EDT) Final Diagnosis A. ILEOSTOMY TAKEDOWN: [facility] - Enterocutaneous junction consistent with ostomy. CENTER - Extensive suture granulomas and reactive changes. LABORATORY SERVICES Attestation There was significant [facility] Electr onically resident/fellow CENTER signed by Salome clancy involvement in the LABORATORY MD Renee on diagnostic evaluation SERVICES 020 at 0916 of this case. By the signature below, the attending physician certifies that they have personally conducted a gross and/or microscopic examination of the described specimens and rendered or confirmed the above diagnosis. Clinical History None listed [facility] Gross Description A. [facility] Received in formalin denise d with proper patient identification (initials H, I) and partial small-bowel resection is an unoriented segment of small bowel (4.2 x 2.8 x 1.9 cm) that is the site of an o CENTER stomy takedown. There is 1.8 cm segment of small bowel with a patent lumen that extends through an elliptical piece of pate skin (3.7 x 1.9 x 1.0 cm). LABORATORY SERVICES The serosa is pate and focall y roughened. The bowel mucosa is pate and unremarkable. No polyps or lesions are identified. The overall thickness of the small bowel remained constant throughout averaging 1.0 cm. Plan Nurse sections are submitted as follows: BLOCK MORALES A1- section to include skin and small bowel, longitudi nal A2-A3- serial section, bisected A4-A5- serial section, bisected Jarrett Paredes MD 12/28/2019 16:10 Resident/Fellow: Jarrett Paredes MD [facility] Performing Lab [facility] Scanned Images [facility] Specimen Tissue - Entire sigmoid colon (body stru cture) Performing Organization Address City/State/ZIP Code Phon e Number [facility] [address] [place] [address] SERVICES documented in this encounter Visit Diagnoses Diagnosis Encounter for other general examination documented in this encounter Care Teams Relationship Management Lead Relationship Specialty Start Date End Date Nayan Hilton DO PCP - General 06/17/17 04/01/20 Manuel Isaacs MD PCP - General 04/02/[address] [place] [phone] documented as of this encounter
--- OUTSIDE RECORDS SUMMARY | 2021-11-06 01:27 | XMS_ITS | Encounter Summary ---
:1940 Author Organization [facility] Address [address] [place] [address] Care Team Providers Name Role Phone Nayan Hilton DO Primary Care Provider Encounter Details Date Type Department Care Team Description 11/19/2019 Orders Only [facility] Valerie Zamora MD Encounter for General Surgery - [address] [facility] [address] testing for COVID-19 [address] [facility], [place] [address] Tish, Level 5 patient (Primary Dx) [phone] [place] [phone] (Wo rk) Social History Tobacco Use Types [...] filedocumented as of this encounter Visit Diagnoses Diagnosis Encounter for screening laboratory testi ng for COVID-19 virus in asymptomatic patient - Primary documented in this encounter Care Teams Carbonator Relationship Specialty Start Date End Date Nayan Hilton DO PCP - General 06/17/17 04/01/20 documented as of this encounter
--- OUTSIDE RECORDS SUMMARY | 2021-11-06 01:27 | XMS_ITS | Encounter Summary ---
:1940 Author Organization [facility] Address [address] [place] [address] Care Team Providers Name Role Phone Manuel Isaacs MD Primary Care Provider Encounter Details Date Type Department Care Team Description 07/10/2021 Lab Requisition [facility] Outr Resulting Lab, Pathology & Laboratory Provider [facility] [address] [place], [place] [id number] Social History Tobacco Use Types Packs/Day Years [...] Date/Time Associated Diagnosis Comme nts CEA Routine 07/10/2021 8:50 EDT Results for this procedure are i n the results section . documented in this encounter Results CEA (07/10/2021 8:50 EDT) CEA 6.7 See Note [facility] Comment: ng/mL LABORATORY % Distribution of CEA [...] malignant disease. ?? Assayed on [employer] taur XPT using chemiluminescent technology. ??Values obtained by different assay methods cannot be used interchangeably. Specimen Blood - Venous blood (substance) Performing Organization Address City/State/ZIP Code Phon e Number [facility] [address] [place] [address] SERVICES documented in this encounter Visit Diagnoses Not on filedocumented in this encounter Care Teams Real Estate Asset Manager Relationship Specialty Start Date End Date Manuel Isaacs MD PCP - General 04/02/[address] [place] [phone] documented as of this encounter
--- OUTSIDE RECORDS SUMMARY | 2021-11-06 01:27 | XMS_ITS | Encounter Summary ---
:1940 Author Organization [facility] Address [address] [place] [address] Care Team Providers Name Role Phone Nayan Hilton DO Primary Care Provider Reason for Visit Reason Onset Date Comments Orders (Non Pre-visit) 11/19/2019 Encounter Details Date Type Department Care Team Description 11/19/2019 Orders Only [facility] Mehdi Kapadia MD Pre-op testing Urology - [address] (Primary Dx) [address] [place], [place] [phone] [place] [address] [place], [address] [place] [phone] (Wo rk) Social History Tobacco Use Types [...] as of this encounter Visit Diagnoses Diagnosis Pre-op testing - Primary Preoperative examination, unspecified documented in this encounter Care Teams Binder Selector Relationship Specialty Start Date End Date Nayan Hilton, PCP - General 06/17/17 04/01/20 documented as of this encounter
--- OUTSIDE RECORDS SUMMARY | 2021-11-06 01:27 | XMS_ITS | Encounter Summary ---
:1940 Author Organization [facility] Address [address] [place] [address] Care Team Providers Name Role Phone Nayan Hilton DO Primary Care Provider Reason for Visit (Routine) - Receiving Office to Obtain Authorization Specialty Diagnoses / Procedures Referred By Contact Refer red To Contact Procedures Unknown, Provider, MR OUTSIDE IMAGES MSK Phone: Referral ID Status Reason Start Expiration Visits Visits Date Date Requested Authorized [id number] Receiving Office 11/07/2019 1 1 to Obtain Authorization Encounter Details Date Type Department Care Team Description 10/29/2019 Hospital Encounter [facility] [place] [facility] Radiology - Main [place] [address] [place] [address] Social History Tobacco Use Types Packs/Day Years [...] making decisions? documented as of this encounter Medications at Time of Discharge Medication Sig Dispensed Refills Start Date End Date aspirin chewable 81 mg Take 1 Tab by mouth 0 08/2015 tablet daily. levothyroxine (SYNTHROID) Take 112 mcg by 0 112 mcg tablet mouth daily. oxybutynin (DITROPAN) 5 mg Take 5 mg by mouth 0 tablet daily. documented as of this encounter Discharge Disposition Disposition Code Departure Means Destination Home or Self Care documented in this encounter Plan of Treatment Not on filedocumented as of this encounter Procedures Procedure Name Priority Date/Time Associated Diagnosis Comme nts MR OUTSIDE IMAGES Routine 11/07/2019 12:12 Result s for this MSK EDT procedure are i n the results section. documented in this encounter Results MR OUTSIDE IMAGES MSK (11/07/2019 12:12 EDT) Specimen Narrative YAMILKASON - 11/07/2019 12:12 EDT This is a non-reportable exam. Performing Organization Address City/State/ZIP Code Phon e Number [email or web address] documented in this encounter Visit Diagnoses Not on filedocumented in this encounter Care Teams Crosscutter Relationship Specialty Start Date End Date Nayan Hilton DO PCP - General 06/17/17 04/01/20 documented as of this encounter
--- OUTSIDE RECORDS SUMMARY | 2021-11-06 01:27 | XMS_ITS | Encounter Summary ---
:1940 Author Organization [facility] Address [address] [place] [address] Care Team Providers Name Role Phone Manuel Isaacs MD Primary Care Provider Encounter Details Date Type Department Care Team Description 10/09/2021 Lab Requisition [facility] Outr Resulting Lab, Pathology & Laboratory Provider [facility] [address], [place] [id number] Social History Tobacco Use Types Packs/Day Years [...] Date/Time Associated Diagnosis Comme nts CEA Routine 10/09/2021 8:12 EDT Results for this procedure are i n the results section . documented in this encounter Results CEA (10/09/2021 8:12 EDT) CEA 4.0 See Note [facility] Comment: ng/mL LABORATORY % Distribution of [...] malignant disease. ?? Assayed on Siemens ADVIA Scrip-t taur XPT using chemiluminescent technology. ??Values obtained by different assay methods cannot be used interchangeably. Specimen Blood - Venous blood (substance) Performing Organization Address City/State/ZIP Code Phon e Number [facility] [address] [place] [address] SERVICES documented in this encounter Visit Diagnoses Not on filedocumented in this encounter Care Teams Bilingual Teacher Assistant Relationship Specialty Start Date End Date Manuel Isaacs MD PCP - General 04/02/[address] [place] [phone] documented as of this encounter
--- OUTSIDE RECORDS SUMMARY | 2021-11-06 01:27 | XMS_ITS | Encounter Summary ---
:[address] [facility] Address [address] [place] [address] Care Team Providers Name Role Phone Nayan Hilton Primary Care Provider Reason for Visit Reason Comments Advice Only Colon cancer involving the u terus Encounter Details Date Type Department Care Team Description 11/19/2019 Initial consult [facility] Renate Loomis cancer, Gynecologic Oncology MD Kylah MSc ascending ([facility]) - [facility] [address] [place] (Primary Dx) [address] [place] [place] [id number] [place] [address] Pav[address], [address] [place] [address] (Wo rk) Social History Tobacco Use Types [...] making decisions? documented as of this encounter Progress Notes Renate Loomis MD - 11/19/2019 1000 EDT Colorectal Surgery Chief Complaint: Cecum/sigmoid cancer with possible invasion into the uterus and adnexa. Asked to be seen today in consultation by Dr. Valerie Zamora. HPI: Per Dr. Morillo's note from 11/19/2019: Patient is a 79 y.o. female being [...] underwent CT scans and colonoscopy up at [facility]. 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 The patient and her believe that this was due to her colonoscopy which was done about a year prior--her particularly thinks that the colon was injured at the time of colonoscopy. She did not have a colonoscopy following this episode. She denies obstructive symptoms. She has been losing weight and is down at least 30 pounds. Her baseline is 212 pounds. PMH: Last colonoscopy was September 2013 with an adenomatous colon polyp, diverticulosis. PObHx: 4 pregnancies, vaginal deliveries, significant tears SH: She underwent a stress test about 3 years ago for eye surgery. She does not exercise, she can walk about 25 feet before fatiguing. She does not complain of chest pain or shortness of breath. She does not use her CPAP. No alcohol use, never smoker. Works for [employer], [employer] and [employer]. PSH: Surgical history: Tonsillectomy Family history: Mother with colon cancer, brother with lung cancer, sister with colon polyps (patient said she was checked for the colon cancer gene and was negative) Labs: 10/26/2019: White blood count 8.8, hemoglobin 9.4, hematocrit 31.2, platelet 308 Sodium 135, potassium 3.5, BUN 11, creatinine 1.8, albumin 3.3 T bili 8.4, alk phos 144, ALT 37, AST 55 CEA: 1.5, CA-1 25 less than 30 Urine cytology with abnormal cells Imagine: CT scan of the chest abdomen and pelvis: Chest with a mediastinal node that is indeterminate. CT of the abdomen pelvis with a tumor that is likely arising in the cecum and invading into the sigmoid colon, dome of bladder, and possibly uterus adnexa.. There is no evidence of obstruction. Review of Symptoms: Per Dr. Zamora' Note Gen: no fevers, chills, sweats, + weight [...] ??? aspirin chewable 81 mg tablet ??? chlorhexidine gluconate 4 % (E-Z SCRUB 107) sponge ??? ciprofloxacin HCl (CIPRO) 500 mg tablet ??? levothyroxine (SYNTHROID) 112 mcg tablet ??? metroNIDAZOLE (FLAGYL) 500 mg tablet ??? neomycin 500 mg tablet ??? oxybutynin (DITROPAN) 5 mg tablet ??? polyethylene glycol (GOLYTELY) 236-22.74-6.74 -5.86 gram suspension No current facility-administered medications for this visit. Allergies Allergies Allergen Reactions ??? Sulfamethoxazole-Trimethoprim Objective: There were no vitals taken for this visit. Physical Exam: Gen: awake, alert, and oriented x 3, NAD Abd: soft, nontender, nondistended, +bowel sounds, obese, full in the lower abdomen. Uterus or mass palpates at least to umbilicus. Ext: warm, well perfused,no edema Data Review: Labs: CBC: Lab Results Component Value Date WBC 9.83 11/19/2019 RBC 3.57 (L) 11/19/2019 HGB 8.6 (L) 11/19/2019 HCT 29.4 (L) 11/19/2019 PLT 626 (H) 11/19/2019 CMP: Lab Results Component Value Date NA 132 (L) 11/19/2019 K 4.3 11/19/2019 CL 97 11/19/2019 CO2 25 11/19/2019 BUN 18 11/19/2019 CREATININE 0.81 11/19/2019 MG 2.1 09/06/2015 PHOS 3.0 09/06/2015 CALCIUM [...] and and possibly uterus, adnexa and ovaries. I was askedby Dr. Valerie Zamora to see her today in consultation. Plan: 1. 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 Zamora with the gynecologic portion with a JOSE ROBERTO/BSO. I spent a total of 30 minutes in face to face time with this patient today and 25minutes of that time was spent in counseling and coordination of care as described in the progress note. .Renate Loomis MD 12/06/2019 11:29 documented in this encounter Plan of Treatment Not on filedocumented as of this encounter Visit Diagnoses Diagnosis Colon cancer, ascending (HCC-CMS) (HCC) - Primary Malignant neoplasm of ascending colon documented in this encounter Care Teams Sales Account Leader Relationship Specialty Start Date End Date Nayan Hilton DO PCP - General 06/17/17 04/01/20 documented as of this encounter
--- OUTSIDE RECORDS SUMMARY | 2021-11-06 01:27 | XMS_ITS | Encounter Summary ---
:1940 Author Organization [facility] Address [address] [place] [address] Care Team Providers Name Role Phone Manuel Isaacs MD Primary Care Provider Encounter Details Date Type Department Care Team Description 04/22/2021 Lab Requisition [facility] Outr Resulting Lab, Pathology & Laboratory Provider [facility] [address] [place] [address] Social History Tobacco Use Types [...] Date/Time Associated Diagnosis Comme nts CEA Routine 04/22/2021 9:44 EST Results for this procedure are i n the results section . documented in this encounter Results CEA (04/22/2021 9:44 EST) CEA 3.6 See Note [facility] Comment: ng/mL LABORATORY % Distribution of [...] malignant disease. ?? Assayed on Siemens ADVIA Gladys taur XPT using chemiluminescent technology. ??Values obtained by different assay methods cannot be used interchangeably. Specimen Blood - Venous blood (substance) Performing Organization Address City/State/ZIP Code Phon e Number [facility] [address] [place] [address] SERVICES documented in this encounter Visit Diagnoses Not on filedocumented in this encounter Care Teams Adjunct Instructor In Economics Relationship Specialty Start Date End Date Manuel Isaacs MD PCP - General 04/02/[address] [place] [phone] documented as of this encounter
--- OUTSIDE RECORDS SUMMARY | 2021-11-06 01:27 | XMS_ITS | Encounter Summary ---
:1940 Author Organization [facility] Address [address] [place] [address] Care Team Providers Name Role Phone Nayan Hilton DO Primary Care Provider Reason for Visit (Routine) - Receiving Office to Obtain Authorization Specialty Diagnoses / Procedures Referred By Contact Refer red To Contact Procedures Unknown, Provider, CT OUTSIDE IMAGES BODY Phone: Referral ID Status Reason Start Expiration Visits Visits Date Date Requested Authorized [id number] Receiving Office 11/07/2019 1 1 to Obtain Authorization Encounter Details Date Type Department Care Team Description 10/30/2019 Hospital Encounter [facility] Radiology - Main [place] [address] [place] [address] Social History Tobacco Use Types Packs/Day Years [...] Name Priority Date/Time Associated Diagnosis Comme nts CT OUTSIDE IMAGES Routine 11/07/2019 12:20 Result s for this BODY EDT procedure are i n the results section. documented in this encounter Results CT OUTSIDE IMAGES BODY (11/07/2019 12:20 EDT) Specimen Narrative YAMILKASON - 11/07/2019 12:20 EDT This is a non-reportable exam. Performing Organization Address City/State/ZIP Code Phon e Number [place] documented in this encounter Visit Diagnoses Not on filedocumented in this encounter Care Teams Learning Support Services Director Relationship Specialty Start Date End Date Nayan Hilton DO PCP - General 06/17/17 04/01/20 documented as of this encounter
--- OUTSIDE RECORDS SUMMARY | 2021-11-06 01:27 | XMS_ITS | Encounter Summary ---
:1940 Author Organization [facility] Address [address] [place] [address] Care Team Providers Name Role Phone YobaniNayan Pedro HARRISON Primary Care Provider Manuel Isaacs MD Primary Care Provider Encounter Details Date Type Department Care Team Description 10/26/2019 Lab Requisition [facility] Outr Resulting Lab, Pathology & Laboratory Provider [facility] [address] [place], [place] [id number] Social History Tobacco Use Types Packs/Day Years [...] Date/Time Associated Diagnosis Comme nts CEA Routine 10/26/2019 8:16 EDT Results for this procedure are i n the results section . documented in this encounter Results CEA (10/26/2019 8:16 EDT) CEA 1.5 See Note [facility] Comment: ng/mL [...] e Number [facility] [address] [place] [address] SERVICES documented in this encounter Visit Diagnoses Not on filedocumented in this encounter Care Teams Cigar Machine Feeder Relationship Specialty Start Date End Date Nayan Hilton DO PCP - General 06/17/17 04/01/20 Manuel Isaacs MD PCP - General 04/02/[address] [place] [phone] documented as of this encounter
--- OUTSIDE RECORDS SUMMARY | 2021-11-06 01:27 | XMS_ITS | Encounter Summary ---
:1940 Author Organization [facility] Address [address] [place] [address] Care Team Providers Name Role Phone Manuel Isaacs MD Primary Care Provider Encounter Details Date Type Department Care Team Description 05/26/2021 Lab Requisition [facility] Outr Resulting Lab, Pathology & Laboratory Provider [facility] [address] [place], [place] [id number] Social History Tobacco Use Types Packs/Day Years [...] Date/Time Associated Diagnosis Comme nts CEA Routine 05/26/2021 10:10 EST Results for this procedure are i n the results section . documented in this encounter Results CEA (05/26/2021 10:10 EST) CEA 3.1 See Note [facility] Comment: ng/mL LABORATORY % Distribution of [...] Organization Address City/State/ZIP Code Phon e Number [facility] [address] [place] [address] SERVICES documented in this encounter Visit Diagnoses Not on filedocumented in this encounter Care Teams Senior Procurement Manager Relationship Specialty Start Date End Date Manuel Isaacs MD PCP - General 04/02/[address] [place] [phone] documented as of this encounter
--- OUTSIDE RECORDS SUMMARY | 2021-11-06 01:27 | XMS_ITS | Encounter Summary ---
:1940 Author Organization [facility] Address [address] [place] [address] Care Team Providers Name Role Phone Manuel Isaacs MD Primary Care Provider Encounter Details Date Type Department Care Team Description 07/24/2021 Lab Requisition [facility] Outr Resulting Lab, Pathology & Laboratory Provider [facility] [address] [place], [place] [id number] Social History Tobacco Use Types Packs/Day Years [...] Date/Time Associated Diagnosis Comme nts CEA Routine 07/24/2021 8:30 EDT Results for this procedure are i n the results section . documented in this encounter Results CEA (07/24/2021 8:30 EDT) CEA 4.2 See Note [facility] Comment: ng/mL LABORATORY % Distribution of [...] malignant disease. ?? Assayed on Siemens ADVIA [employer] taur XPT using chemiluminescent technology. ??Values obtained by different assay methods cannot be used interchangeably. Specimen Blood - Venous blood (substance) Performing Organization Address City/State/ZIP Code Phon e Number [facility] [address] [place] [address] SERVICES documented in this encounter Visit Diagnoses Not on filedocumented in this encounter Care Teams Doughnut Batter Mixer Relationship Specialty Start Date End Date Manuel Isaacs MD PCP - General 04/02/[address] [place] [phone] documented as of this encounter
--- OUTSIDE RECORDS SUMMARY | 2021-11-06 01:27 | XMS_ITS | Clinical Summary ---
:1940 Author Organization [facility] Address [address] [place] [address] Care Team Providers Name Role Phone Manuel Isaacs MD Primary Care Provider Allergies Active Allergy Reactions Severity Noted Date Comments Sulfamethoxazole-Trimethoprim 11/19/2019 Medications Medication Sig Dispensed Refills Start Date End Date Status oxybutynin (DITROPAN) 5 Take 5 mg by 0 Active mg tablet mouth daily. levothyroxine Take 112 mcg by 0 Active (SYNTHROID) 112 mcg mouth daily. tablet aspirin chewable 81 mg Take 1 Tab by 0 09/07/2015 Active tablet mouth daily. Additional Information Patient not taking. Reported on 11/19/2019 metroNIDAZOLE (FLAGYL) 500 mg Patient to take one 3 Tab 0 11/19/2019 Active tablet tablet at 3 PM, 4 PM and 10 PM day before surgery. neomycin 500 mg tablet Patient to take 2 tablets 6 Tab 0 0 11/19/2019 Active at 3 PM, 4 PM and 10 PM day before surgery. chlorhexidine gluconate 4 % Use as directed in pre-op 2 Each 0 11/19/2019 Active (E-Z SCRUB 107) sponge showering instructions. polyethylene glycol Patient to follow one 1 Bottle 0 11/19/19 20 Active (GOLYTELY) 236-22.74-6.74 time directions as -5.86 gram suspension directed by Dr Zamora office for surgery prep Active Problems Problem Noted Date Colon cancer, ascending ([facility]) 11/19/2019 Malignant neoplasm of colon 11/19/2019 Overview: Added automatically from request for juan carlos contreras [id number] Sepsis 09/03/2015 Intra-abdominal infection 09/03/2015 Colon polyp 03/04/2011 Family history of polyps in the colon 03/04/2011 Encounters Date Type Specialty Care Team Description 10/23/2021 Lab Requisition [facility] Outr Resulting Lab , Provider 10/09/2021 Lab Requisition Clinical Laboratory Outr Resulting Lab , Provider 09/25/2021 Lab Requisition Clinical Laboratory Outr Resulting Lab , Provider 09/11/2021 Lab Requisition Clinical Laboratory Outr Resulting Lab , Provider 08/28/2021 Lab Requisition Clinical Laboratory Outr Resulting Lab , Provider 08/21/2021 Lab Requisition Clinical Laboratory Outr Resulting Lab , Provider 08/07/2021 Lab Requisition Clinical Laboratory Outr Resulting Lab , Provider from Last 3 Months Medical History Medical History Date Comments Thyroid disease Hyperlipidemia Obesity, Class II, BMI 35-39.9, with comorbidity Urge incontinence Family History Medical History Relation Name Comments Colon Cancer Maternal Grandfather Breast Cancer Mother Colon Cancer Mother Colon Polyps Mother Colon Cancer Sister rectal Colon Polyps Sister Relation Name Status Comments Maternal Grandfather Mother Sister Alive Sister Alive Social History Tobacco Use Types Packs/Day Years Used Date Never Smoker Smokeless Tobacco: Never Used Alcohol Use Standard Drinks/Week Comments No 0 (1 standard drink = 0.6 oz pure alcoho l) Sex Assigned at Date Recorded Not on file Obstetrics History Grav Para Term Pre Abrt (TAB) (SAB) (Ect) Mult Lvng Comments 4 4 4 4 Date Outcome GA Total Labor/2nd/3rd Weight Sex Delivery Anes PTL Venus A 1 A5 Name Clin Labor Term Vag-Spont Holly ng Term Vag-Spont Holly ng Term Vag-Spont Holly ng Term Vag-Spont Holly ng Last Filed Vital Signs Vital Sign Reading Time Taken Comments Blood Pressure 102/84 12/23/2015 1339 EDT Pulse 84 10/07/2015 0852 EDT Temperature 36.2 ??C (97.2 ??F) 09/07/2015 1042 EDT Respiratory Rate 18 09/07/2015 1042 EDT Oxygen Saturation 92% 09/07/2015 1042 EDT Inhaled Oxygen Concentration - - Weight 83 kg (183 lb) 11/19/2019 0925 EDT Height 160 cm (5' 2.99) 11/19/2019 0925 EDT Body Mass Index 32.43 11/19/2019 0925 EDT Plan of Treatment Health Maintenance Due Date Last Done Comments Hepatitis C Screen 1940 COVID-19 Vaccine (#1) 09/09/1945 Fall Risk Screening 09/09/2007 Procedures Procedure Name Priority Date/Time Associated Diagnosis Comme nts CEA Routine 10/23/2021 10:47 EDT Results for this procedure are i n the results section . CEA Routine 10/09/2021 8:12 EDT Results for this procedure are i n the results section . CEA Routine 09/25/2021 8:50 EDT Results for this procedure are i n the results section . CEA Routine 09/11/2021 9:35 EDT Results for this procedure are i n the results section . CEA Routine 08/28/2021 6:55 EDT Results for this procedure are i n the results section . CEA Routine 08/21/2021 9:30 EDT Results for this procedure are i n the results section . CEA Routine 08/07/2021 10:25 EDT Results for this procedure are i n the results section . from Last 3 Months Results CEA (10/23/2021 10:47 EDT)Only the most recent of7 resultswithin the time period is included. CEA 4.4 See Note [facility] Comment: ng/mL LABORATORY % Distribution of [...] e Number [facility] [address] [place] [address] SERVICES from Last 3 Months Insurance Payer Benefit Plan / Subscriber ID Effective Dates Phone Addre ss Type Group MEDICARE MEDICARE A/B [id number] 2007-Present [id number] [place] [id number] Joy Armstrong Personal/Family Self 1940 [address] (Home) [place] [address] Joy Armstrong Personal/Family Self [address] [place] [address] Joy Armstrong Personal/Family Self [address] [place] [address] Joy Armstrong Personal/Family Self [address] [place] [address] Joy Armstrong Personal/Family Self [address] [place] [address] Joy Armstrong Personal/Family Self 1940 [address] (Home) [place] [address] Joy Armstrong Personal/Family Self 1940 [address] (Home) [place] [address] Advance Directives For more information, please contact: [phone] Latest Code Status on File Code Status Date Activated Date Inactivated Comments Full Code 09/03/2015 13:11 09/07/2015 15:54 Reason for decision includes: Full code consistent with over all plan of care Who participated in the discussion? Patient Care Teams Aquatics Lifeguard Relationship Specialty Start Date End Date Manuel Isaacs MD PCP - General 04/02/[address] [place] [phone]
--- OUTSIDE RECORDS SUMMARY | 2021-11-06 01:27 | XMS_ITS | Encounter Summary ---
:1940 Author Organization [facility] Address [address] [place] [address] Care Team Providers Name Role Phone Nayan Hilton DO Primary Care Provider Encounter Details Date Type Department Care Team Description 11/19/2019 Travel Social History Tobacco Use Types Packs/Day Years [...] on filedocumented in this encounter Care Teams Electrical Fitter Relationship Specialty Start Date End Date Nayan Hilton DO PCP - General 06/17/17 04/01/20 documented as of this encounter
--- OUTSIDE RECORDS SUMMARY | 2021-11-06 01:27 | XMS_ITS | Encounter Summary ---
:1940 Author Organization [facility] Address [address] [place] [address] Care Team Providers Name Role Phone Manuel Isaacs MD Primary Care Provider Encounter Details Date Type Department Care Team Description 04/02/[address] [facility] - Alexy Cherry, [facility] [place] [address] [facility] [address] [place] [address] [place], [place] [id number] Social History Tobacco Use Types Packs/Day Years [...] Name Priority Date/Time Associated Diagnosis Comme nts PET CT EYE TO THIGH 04/02/2020 9:39 EST R esults for this procedure are i n the results section. documented in this encounter Results PET CT EYE TO THIGH (04/02/2020 9:39 EST) Specimen Narrative [facility] - 04/02/2020 9:39 EST ? EXAM: PET/CT SCAN/PET/CT SKULL BASE TO TN EX. D/ (0755) ? CLINICAL INFORMATION: ? C18.9 COLON CANCER ? STAGING ? PET/CT SKULL BASE TO MID-THIGH ? Signs and Symptoms/Comments: ??C1 8.9 COLON CANCER, STAGING. Per ? patient, history of colon surgery in 2019. ? Comparison: Outside CT chest abdo men pelvis on 01/23/2020 and ? 10/30/2019 (from [facility]). ? Technique: 90 minutes following t he IV injection of 16.2 mCi of ? [id number], PET imagi ng was performed from the skull base ? through the thighs with CT attenu ation correction. The blood glucose ? level prior to injection was 91 m g/dl. The injection site was the ? right antecubital fossa. ? FINDINGS: ? PET: ? NECK: Mildly FDG avid, nonenlarge d right level 1B and 2B lymph nodes ? are indeterminate, potentially re active or less likely reflecting ? metastatic disease. No FDG avid p rimary mass is visible in the neck. ? However, there is an FDG avid sub cutaneous nodule along the posterior ? aspect of the right shoulder, sup erficial to the trapezius muscle, of ? uncertain significance (axial PET fusion image 49). ? CHEST: No enlarged or FDG avid me diastinal, hilar, or axillary lymph ? nodes are identified. Multiple khoury bcentimeter lung nodules are ? present, as confirmed on the prio r outside diagnostic CT, too small ? to characterize definitively by P ET (for example, axial low-dose CT ? series 2 images 66, 72, 76, 95). A few of these nodules are ? calcified, raising the possibilit y of old granulomatous disease ? rather than metastatic disease. S hort-term follow-up CT is ? recommended in 3 months to ensure stability. ? ABDOMEN and PELVIS: Postsurgical changes are present from resection ? of a cecal mass, including partia l colonic and small bowel ? resections. An ileocolic anastomo sis is present in the right abdomen, ? as well as a distal colonic anast omosis anastomosis. Mild-moderate ? uptake adjacent to the anastomoti c staple lines is indeterminate, ? with the differential including p ostsurgical inflammation versus ? local recurrence/metastatic disea se. A few tiny foci of FDG uptake ? along the lower midline surgical incision likely reflect postsurgical ? inflammation rather than metastat ic disease. No FDG avid liver lesion ? is identified. No enlarged or FDG avid abdominopelvic lymph nodes are ? visible. ? BONES: There is no PET evidence o f osseous metastatic disease. ? Operational Review Sergeant measurements as fo llows: ? * ??Background liver uptake: SUV max 2.8. ? PAGE 1 ? Juliette d Report ? (CONTINUED) ? * ??Right level 1B cervical lymph node: SUV max 3.9 (axial PET fusion ? image 36). ? * ??Right level 1B cervical lymph node: SUV max 2.5 (axial PET fusion ? image 38). ? * ??Right posterior shoulder subc utaneous nodule: SUV max 2.3, avid ? for size (axial PET fusion image 49). ? * ??Right-sided intra-abdominal a nastomotic staple lines: Up to SUV ? max 5.4 (axial PET fusion image 1 55). ? * ??Distal colonic anastomosis: S UV max 4.4 (axial PET fusion image ? 192). ? * ??Multifocal midline incision u ptake: Up to SUV max 4.5 (axial PET ? fusion images 170, 183). ? ACCOMPANYING LOW DOSE ATTENUATION CORRECTION CT: Layering fluid in ? the left maxillary sinus, please correlate for acute sinusitis (axial ? low-dose CT series 2 image 18). C oronary and peripheral ? atherosclerotic disease. Large hi atal hernia. Scattered tiny ? pulmonary nodules, too small to c haracterize definitively by PET. ? Status post partial colonic resec tions, with ileocolic and distal ? colonic anastomosis. Multilevel s chaparrita degenerative changes. ? IMPRESSION: ? 1. ??No definitive evidence of me tastatic colon cancer, however ? multiple indeterminate findings a re identified, as detailed below. ? 2. ??Status post partial colonic resections. Mild-moderate uptake ? adjacent to the ileocolic and dis dany colonic anastomoses is ? indeterminate, with the different ial including postsurgical ? inflammation versus local recurre nce/metastatic disease. Management ? options include colonoscopy versu s short-term follow-up imaging in 3 ? months. ? 3. ??Mildly FDG avid, nonenlarged right level 1B and 2B lymph nodes. ? Indeterminate, but statistically likely to reflect reactive lymph ? nodes rather than metastatic dise ase. Management options include ? biopsy versus short-term follow-u p imaging in 3 months. ? 4. ??Indeterminate mildly FDG tomi d subcutaneous nodule along the ? posterior right shoulder, superfi cial to the trapezius muscle. Biopsy ? should be considered. ? 5. ??Bilateral subcentimeter lung nodules, too small to characterize ? definitively by PET. Some of thes e are calcified, suggesting old ? granulomatous disease rather than metastatic disease. Short-term ? follow-up CT chest recommended in 3 months to ensure stability. ? PAGE 2 ? Juliette d Report ? (CONTINUED) ? 6. ??Incidental finding: Layering fluid in the left maxillary sinus, ? please correlate for acute sinusi tis. ? REPORT SIGNED IN OTHER VENDOR SYSTEM 04/02/2020 ?Reported B y: Bashir Tran MD ? CC: ? Transcribed Date/Time: 04/02/2020 (0939) ? Forepart Laster: ? Printed Date/Time: 04/02/2020 (09 39) ? PAGE 3 ? Juliette d Report ? Procedure Note Bashir Tran MD - 04/02/2020 EXAM: PET/CT SCAN/PET/CT SKULL BASE TO TN EX. D/ (0755) CLINICAL INFORMATION: C18.9 COLON CANCER STAGING PET/CT SKULL BASE TO MID-THIGH Signs and Symptoms/Comments: C18.9 COLO N CANCER, STAGING. Per patient, history of colon surgery in . Comparison: Outside CT chest abdomen pe lvis on 01/23/2020 and 10/30/2019 (from [facility]) . Technique: 90 minutes following the IV injection of 16.2 mCi of [id number], PET imaging was performed from the skull base through the thighs with CT attenuation correction. The blood glucose level prior to injection was 91 mg/dl. The injection site was the right antecubital fossa. FINDINGS: PET: NECK: Mildly FDG avid, nonenlarged righ t level 1B and 2B lymph nodes are indeterminate, potentially reactive or less likely reflecting metastatic disease. No FDG avid primary mass is visible in the neck. However, there is an FDG avid subcutane ous nodule along the posterior aspect of the right shoulder, superfici al to the trapezius muscle, of uncertain significance (axial PET fusio n image 49). CHEST: No enlarged or FDG avid mediasti nal, hilar, or axillary lymph nodes are identified. Multiple subcenti meter lung nodules are present, as confirmed on the prior outs axel diagnostic CT, too small to characterize definitively by PET (fo r example, axial low-dose CT series 2 images 66, 72, 76, 95). A few of these nodules are calcified, raising the possibility of o ld granulomatous disease rather than metastatic disease. Short-t erm follow-up CT is recommended in 3 months to ensure stabi lity. ABDOMEN and PELVIS: Postsurgical change s are present from resection of a cecal mass, including partial colo alexis and small bowel resections. An ileocolic anastomosis is present in the right abdomen, as well as a distal colonic anastomosis anastomosis. Mild-moderate uptake adjacent to the anastomotic stap le lines is indeterminate, with the differential including postsur gical inflammation versus local recurrence/metastatic disease. A few tiny foci of FDG uptake along the lower midline surgical incisi on likely reflect postsurgical inflammation rather than metastatic dis ease. No FDG avid liver lesion is identified. No enlarged or FDG avid abdominopelvic lymph nodes are visible. BONES: There is no PET evidence of osse ous metastatic disease. Operational Review Sergeant measurements as follows: * Background liver uptake: SUV max 2.8. PAGE 1 Signed Report (CONTINUED) * Right level 1B cervical lymph node: S UV max 3.9 (axial PET fusion image 36). * Right level 1B cervical lymph node: S UV max 2.5 (axial PET fusion image 38). * Right posterior shoulder subcutaneous nodule: SUV max 2.3, avid for size (axial PET fusion image 49). * Right-sided intra-abdominal anastomot ic staple lines: Up to SUV max 5.4 (axial PET fusion image 155). * Distal colonic anastomosis: SUV max 4 .4 (axial PET fusion image 192). * Multifocal midline incision uptake: U p to SUV max 4.5 (axial PET fusion images 170, 183). ACCOMPANYING LOW DOSE ATTENUATION CORRE CTION CT: Layering fluid in the left maxillary sinus, please correl ate for acute sinusitis (axial low-dose CT series 2 image 18). Coronar y and peripheral atherosclerotic disease. Large hiatal h ernia. Scattered tiny pulmonary nodules, too small to charact erize definitively by PET. Status post partial colonic resections, with ileocolic and distal colonic anastomosis. Multilevel spinal degenerative changes. IMPRESSION: 1. No definitive evidence of metastatic colon cancer, however multiple indeterminate findings are axel ntified, as detailed below. 2. Status post partial colonic resectio ns. Mild-moderate uptake adjacent to the ileocolic and distal co lonic anastomoses is indeterminate, with the differential in cluding postsurgical inflammation versus local recurrence/me tastatic disease. Management options include colonoscopy versus shor t-term follow-up imaging in 3 months. 3. Mildly FDG avid, nonenlarged right l evel 1B and 2B lymph nodes. Indeterminate, but statistically likely to reflect reactive lymph nodes rather than metastatic disease. M anagement options include biopsy versus short-term follow-up imag ing in 3 months. 4. Indeterminate mildly FDG avid subcut aneous nodule along the posterior right shoulder, superficial t o the trapezius muscle. Biopsy should be considered. 5. Bilateral subcentimeter lung nodules , too small to characterize definitively by PET. Some of these are calcified, suggesting old granulomatous disease rather than metas tatic disease. Short-term follow-up CT chest recommended in 3 mon ths to ensure stability. PAGE 2 Signed Report (CONTINUED) 6. Incidental finding: Layering fluid i n the left maxillary sinus, please correlate for acute sinusitis. REPORT SIGNED IN OTHER VENDOR SYSTEM 04/02/2020 Reported By: Bashir Tran MD CC: Transcribed Date/Time: 04/02/2020 (4505 ) Forepart Laster: Printed Date/Time: 04/02/2020 (8848) PAGE 3 Signed Report Performing Organization Address City/State/ZIP Code Phon e Number [facility] documented in this encounter Visit Diagnoses Not on filedocumented in this encounter Care Teams Shirt Hemmer Relationship Specialty Start Date End Date Manuel Isaacs MD PCP - General 04/02/[address] [place] [phone] documented as of this encounter
--- OUTSIDE RECORDS SUMMARY | 2021-11-06 01:27 | XMS_ITS | Encounter Summary ---
:[address] [facility] Address [address] [place] [address] Care Team Providers Name Role Phone Manuel Isaacs MD Primary Care Provider Encounter Details Date Type Department Care Team Description 08/07/2021 Lab Requisition [facility] Outr Resulting Lab, Pathology & Laboratory Provider [facility] [address] [place] [address] Social History Tobacco Use Types [...] Date/Time Associated Diagnosis Comme nts CEA Routine 08/07/2021 10:25 EDT Results for this procedure are i n the results section . documented in this encounter Results CEA (08/07/2021 10:25 EDT) CEA 5.1 See Note [facility] Comment: ng/mL LABORATORY % Distribution of CEA [...] malignant disease. ?? Assayed on Siemens ADVIA TIME PLUS Q taur XPT using chemiluminescent technology. ??Values obtained by different assay methods cannot be used interchangeably. Specimen Blood - Venous blood (substance) Performing Organization Address City/State/ZIP Code Phon e Number [facility] [address] [place] [address] SERVICES documented in this encounter Visit Diagnoses Not on filedocumented in this encounter Care Teams Crystal Evaluator Relationship Specialty Start Date End Date Manuel Isaacs MD PCP - General 04/02/[address] [place] [phone] documented as of this encounter
--- OUTSIDE RECORDS SUMMARY | 2021-11-06 01:27 | XMS_ITS | Encounter Summary ---
:1940 Author Organization [facility] Address [address] [place] [id number] Care Team Providers Name Role Phone Nayan Hilton Primary Care Provider Reason for Referral Laboratory Services (Routine) - New Request Specialty Diagnoses / Procedures Referred By Contact Refer red To Contact Diagnoses Colovesical fistula Bashir Kapadia MD Procedures BACTERIAL CULTURE, URINE [address] [phone] Referral ID Status Reason Start Date Expiration Date Visits V isits Requested Authorized [id number] New Request 11/14/2019 1 1 Reason for Visit Reason Comments New Patient Visit Consult (Urgent) - Authorization Not Required Specialty Diagnoses / Procedures Referred By Contact Refer dontae To Contact Urology Diagnoses Vesicocolic fistula Bashir Kapadia MD [address] [place] [phone] Phone: Fax: Referral ID Status Reason Start Expiration Visits Visits Date Date Requested Authorized [id number] Authorization Not 1 1 Required Encounter Details Date Type Department Care Team Description 11/14/2019 Telemedicine [facility] Mehdi Kapadia MD Colovesical fistula Urology - Main [address] (Primary Dx ) [address] [place], [place] [id number] [place] [address] [place] [phone] (Wo rk) Social History Tobacco Use Types [...] Sig Dispensed Refills Start Date End Date sulfamethoxazole-trimethop Take 1 Tab by mouth 28 Tab 0 11/14/2019 11/19/2019 rim (BACTRIM DS) 800-160 2 times daily for mg per tablet 14 days. documented in this encounter Progress Notes Bashir Kapadia MD - 11/14/2019 0800 EDT Chief Complaint: No chief complaint on file. Reason for Consult: Urology was asked to see Joy in consultation at the request of Nayan Hilton. HPI: Joy is a 79 y.o. female with colon cancer. 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 She initially was slated to undergo surgery thisweek at [facility] but ultimately the decision was made to transfer care to [facility]. She underwent an office cystoscopy with Dr. Arciniega who noted the bladder pulled to the right due to an invasive mass. Also tumor studding on the left side of the bladder that appeared mucoid and separate from the invasive adenocarcinoma. She underwent a CT urogram which I reviewed showing no upper tract lesions. She did a urine cytology which returned atypical. She is in the process of being scheduled with Dr. Zamora as well as Dr. Loomis due to this mass and its invasive nature. Currently does not have pain but does note some bladder pressure. She has had multiple UTIs from this fistula and just completed a course of Bactrim. She denies any recent weight loss or weight gain. No nausea or vomiting, no night sweats, tolerating p.o. relatively well. Is anxious to get this over with. Patient Active Problem List Diagnosis ??? Colon polyp ??? Family history of polyps in the colon ??? Sepsis ??? Intra-abdominal infection PMH PSH No pertinent PMHx No pertinent PSHx Social History Family History Non-smoker, no alcohol, children and 21 grandchildren, retired, lives with her partner No pertinent FHx Medications Current Outpatient Medications: ??? aspirin chewable 81 mg tablet, Take 1 Tab by mouth daily., Disp: , Rfl: ??? levothyroxine (SYNTHROID) 112 mcg tablet, Take 112 mcg by mouth daily., Disp: , Rfl: ??? oxybutynin (DITROPAN) 5 mg tablet, Take 5 mg by mouth daily., Disp: , Rfl: ??? sulfamethoxazole-trimethoprim (BACTRIM DS) 800-160 mg per tablet, Take 1 Tab by mouth 2 times daily for 14 days., Disp: 28 Tab, Rfl: 0 Allergies No Known Allergies Review of Systems: A 10 point ROS was negative unless listed as positive in the HPI Objective/Physical Exam: Vital Signs: There were no vitals taken for this visit. Exam: Lab Results Component Value Date/Time HGB 11.2 (L) 09/07/2015 06:31 CREATININE 0.63 09/06/2015 07:06 CREATININE 0.79 09/05/2015 03:06 CREATININE 0.82 09/04/2015 03:18 Data Review: I have independently visualized the and image(s) Assessment/Plan 1. Colovesical fistula Patient with invasive adenocarcinoma, colon cancer that has invaded the bladder. I discussed with her at the time of her resection with Dr. Zamora I will plan to look inside her bladder with the cystoscope and resect the small lesion seen on cystoscopy and marked the borders of her tumor and removed this area and so back together. It is unclear if the tumor involves the right ureteral orifice since she did not tolerate her previous office cystoscopy well so I will plan to put up bilateral ureteral stents and potentially a right ureteral reimplant if needed. -Obtain Dr. Arciniega's notes -Bactrim DS twice daily for 2 weeks -Urine culture preoperatively Bashir Kapadia MD This note has been prepared with voice recognition software. Please excuse business system manager errors. Patient consented to a phone visit. I spent a total of 20 minutes with Joy Momin Rickigrady today and 20 minutes of that time was spent in counseling and coordination of care as described in the progress note. documented in this encounter Plan of Treatment Not on filedocumented as of this encounter Visit Diagnoses Diagnosis Colovesical fistula - Primary Intestinovesical fistula documented in this encounter Orders Lab Orders Without Results Count Last Ordered Date st Ordered Date BACTERIAL CULTURE, URINE 1 11/14/2019 documented in this encounter Care Teams Leaflet Distributor Relationship Specialty Start Date End Date Nayan Hilton DO PCP - General 06/17/17 04/01/20 documented as of this encounter
--- OUTSIDE RECORDS SUMMARY | 2021-11-06 01:27 | XMS_ITS | Encounter Summary ---
:1940 Author Organization [facility] Address [address] [place] [address] Care Team Providers Name Role Phone YobaniNayan Pedro HARRISON Primary Care Provider Manuel Isaacs MD Primary Care Provider Encounter Details Date Type Department Care Team Description 12/20/2019 Lab Re[address] [facility] Outr Resulting Lab, Pathology & Laboratory Provider [facility] [address] [place], [place] [id number] Social History Tobacco Use Types Packs/Day Years [...] Name Priority Date/Time Associated Diagnosis Comme nts PREALBUMIN Routine 12/20/2019 7:00 EDT Results for this procedure are i n the results section . documented in this encounter Results (ABNORMAL) PREALBUMIN (12/20/2019 7:00 EDT) Pathologist Sig nature Prealbumin 19 (L) 20 - 40 mg/dL [facility] Specimen Blood - Venous blood (substance) Performing Organization Address City/State/ZIP Code Phon e Number [facility] [address] [place] [address] SERVICES documented in this encounter Visit Diagnoses Not on filedocumented in this encounter Care Teams Registration Scheduling Specialist Relationship Specialty Start Date End Date Nayan Hilton DO PCP - General 06/17/17 04/01/20 Manuel Isaacs MD PCP - General 04/02/[address] [place] [phone] documented as of this encounter
--- OUTSIDE RECORDS SUMMARY | 2021-11-06 01:27 | XMS_ITS | Encounter Summary ---
:1940 Author Organization [facility] Address [address] [place] [address] Care Team Providers Name Role Phone Manuel Isaacs MD Primary Care Provider Encounter Details Date Type Department Care Team Description 09/25/2021 Lab Requisition [facility] Outr Resulting Lab, Pathology & Laboratory Provider [facility] [address] [place], [place] [id number] Social History Tobacco Use Types Packs/Day Years [...] Date/Time Associated Diagnosis Comme nts CEA Routine 09/25/2021 8:50 EDT Results for this procedure are i n the results section . documented in this encounter Results CEA (09/25/2021 8:50 EDT) CEA 4.3 See Note [facility] Comment: ng/mL LABORATORY % Distribution of CEA [...] malignant disease. ?? Assayed on Siemens ADVIA Mondeca taur XPT using chemiluminescent technology. ??Values obtained by different assay methods cannot be used interchangeably. Specimen Blood - Venous blood (substance) Performing Organization Address City/State/ZIP Code Phon e Number [facility] [address] [place] [address] SERVICES documented in this encounter Visit Diagnoses Not on filedocumented in this encounter Care Teams Radiation Therapy Technologist Relationship Specialty Start Date End Date Manuel Isaacs MD PCP - General 04/02/[address] [place] [phone] documented as of this encounter
--- OUTSIDE RECORDS SUMMARY | 2021-11-06 01:27 | XMS_ITS | Encounter Summary ---
:1940 Author Organization [facility] Address [address] [place] [address] Care Team Providers Name Role Phone Nayan Hilton Primary Care Provider Reason for Visit Laboratory Services (Routine) - New Request Specialty Diagnoses / Procedures Referred By Contact Refer red To Contact Diagnoses Colovesical fistula Bashir Kapadia MD Procedures BACTERIAL CULTURE, URINE [address] [facility], [facility] [address] [place] [phone] Referral ID Status Reason Start Date Expiration Date Visits V isits Requested Authorized [id number] New Request 11/14/2019 1 1 Encounter Details Date Type Department Care Team Description 11/19/2019 Phlebotomy Only [facility] ED Center 2 Stump Shooter, Acc Colove sical fistula; Phlebotomy Phlebotomy Malignant neoplasm of ascend ing colon ([facility]) [address] [place] [address] Social History Tobacco Use Types Packs/Day Years [...] Procedure Name Priority Date/Time Associated Comments Diagnosis PRE-OP TYPE AND Routine 11/19/2019 12:36 Malignant neoplasm Re sults for this SCREEN EDT of ascending colon procedure are in ([facility]) the results section. COMPLETE BLOOD COUNT Routine 11/19/2019 12:36 Malignant neopla sm Results for this EDT of ascending colon procedure are in ([facility]) the results section. TYPE AND SCREEN Today 11/19/2019 12:36 Malignant neoplasm Re sults for this EDT of ascending colon procedure are in ([facility]) the results section. BUN Routine 11/19/2019 12:36 Malignant neoplasm Resul ts for this EDT of ascending colon procedure are in ([facility]) the results section. CREATININE Routine 11/19/2019 12:36 Malignant neoplasm Resul ts for this EDT of ascending colon procedure are in ([facility]) the results section. ELECTROLYTES Routine 11/19/2019 12:36 Malignant neoplasm Resul ts for this EDT of ascending colon procedure are in ([facility]) the results section. documented in this encounter Results TYPE AND SCREEN (11/19/2019 12:36 EDT) ABO O [facility] BLOOD BANK Rh Factor Positive [facility] BLOOD BANK Antibody Screen Negative [facility] BLOOD BANK Specimen Expires: 12/03/2019 @ 23:59 [facility] BLOOD BANK Specimen Blood - Venous blood (substance) Performing Organization Address City/State/ZIP Code Phon e Number [facility] BLOOD BANK [address] [facility] [place] [address] (ABNORMAL) COMPLETE BLOOD COUNT (11/19/2019 12:36 EDT) Pathologist Sig nature WBC 9.83 4.00 - 12.40 [facility] RBC 3.57 (L) 3.86 - 5.04 M/cmm [facility] LABORATORY SERVICES Hemoglobin 8.6 (L) 11.6 - 15.2 gm/dL [facility] LABORATORY SERVICES HCT 29.4 (L) 34.9 - 44.4 % [facility] LABORATORY SERVICES MCV 82 81 - 98 fl [facility] LABORATORY SERVICES MCH 24.1 (L) 26.7 - 33.3 pg [facility] LABORATORY SERVICES Hypochromia 1+ [facility] LABORATORY SERVICES MCHC 29.3 (L) 32.1 - 35.9 gm/dL [facility] LABORATORY SERVICES RDW-CV 17.0 (H) <14.7 % [facility] LABORATORY SERVICES RDW-SD 49.7 <50.4 fl [facility] LABORATORY SERVICES Anisocytosis 1+ [facility] LABORATORY SERVICES PLT 626 (H) 141 - 377 K/cmm [facility] LABORATORY SERVICES MPV 9.1 (L) 9.5 - 12.7 fl [facility] LABORATORY SERVICES Specimen Blood - Venous blood (substance) Performing Organization Address City/[facility] Code Phon e Number [facility] LABORATORY [address] [place] [phone] SERVICES CREATININE (11/19/2019 12:36 EDT) Creatinine 0.81 0.52 - 1.04 [facility] mg/dL LABORATORY SERVICES eGFR 70Comment: eGFR >60 [facility] calculated using mL/min/1.73m2 LABORATORY SERVICES CKD-EPI equation for non- Americans. Multiply eGFR by 1.16 for patients. Specimen Blood - Venous blood (substance) Performing Organization Address City/[facility]/ZIP Code Phon e Number [facility] LABORATORY [address] [place] [address] SERVICES BUN (11/19/2019 12:36 EDT) Pathologist Sig nature BUN 18 10 - 26 mg/dL [facility] LABORATO RY SERVICES Specimen Blood - Venous blood (substance) Performing Organization Address [facility]/ZIP [facility] Phon e Number [facility] LABORATORY [address] [place] [address] SERVICES (ABNORMAL) ELECTROLYTES (11/19/2019 12:36 EDT) Pathologist Sig nature Sodium 132 (L) 136 - 145 mEq/L [facility] LABORA TORY SERVICES Potassium 4.3 3.5 - 5.0 mEq/L [facility] LABORA TORY SERVICES Chloride 97 96 - 110 mEq/L [facility] LABORAT ORY SERVICES CO2 Total 25 22 - 32 mEq/L [facility] LABORATO RY SERVICES Specimen Blood - Venous blood (substance) Performing Organization Address City/State/ZIP Code Phon e Number [facility] LABORATORY [address] [place] [address] SERVICES PRE-OP BLOOD BANK DRAW (11/19/2019 12:36 EDT) Pathologist Sig nature Hold BB Specimen valid up to [facility] 30 days from BLOOD BANK collection date. Specimen Blood - Venous blood (substance) Performing Organization Address City/[facility]/ZIP Code Phon e Number [facility] BLOOD BANK [address] [place] [address] documented in this encounter Visit Diagnoses Diagnosis Colovesical fistula Intestinovesical fistula Malignant neoplasm of ascending colon (H CC-CMS) (HCC) Malignant neoplasm of ascending colon documented in this encounter Care Teams Tombstone Erector Relationship Specialty Start Date End Date Nayan Hilton DO PCP - General 06/17/17 04/01/20 documented as of this encounter
--- OUTSIDE RECORDS SUMMARY | 2021-11-06 01:27 | XMS_ITS | Encounter Summary ---
:1940 Author Organization [facility] Address [address] [place] [address] Care Team Providers Name Role Phone Manuel Isaacs MD Primary Care Provider Encounter Details Date Type Department Care Team Description 12/24/2020 Lab Requisition [facility] Dixon Urena Enc ounter for other Pathology & MD general examination Laboratory Medicine - [address] [place] [address] [address] [facility] [address] [place], [place] [id number] Social History Tobacco Use Types Packs/Day Years [...] Name Priority Date/Time Associated Diagnosis Comme nts NON VESSEL SLAGMAN/FNA Today 12/24/2020 10:45 Results for this CYTOLOGY EDT procedure are i n the results section. documented in this encounter Results NON VESSEL SLAGMAN/FNA CYTOLOGY (12/24/2020 10:45 EDT) Note to Patient The following [facility] pathology results have CENTER been interpreted by LABORATORY your pathologist and SERVICES may be available to you before your health provider has had the opportunity to review them. Please allow time for your provider to receive these results and explore management options, if applicable. Final Diagnosis A. RECTUS ABDOMINUS MUSCLE, RIGHT, ULTRASOUND-GUIDED FINE-NEEDLE ASPIRATION: [facility] - Adenocarcinoma. See comment. [facility] LABORATORY SERVICES Diagnosis Comment The aspirate smears are cell ular and show crowded sheets of malignant glandular cells with nuclear crowding and nuclear membrane irregularity. Although the SATB2 stain would be expected to be positive i [facility] n colo-rectal carcinomas, a small percent of cases have been reported to be negative. Clinical and radiographic correlation is hence essential. Dr. David Roth has reviewed this case in consultation and concurs with the diagnosis. [facility] Immunoperoxidase stains were performed on this case to further characterize the lesion. LABORATORY SERVICES ANTIBODY(CLONE)(BLOCK):RESULT SATB2 ([id number], Cell Gamaliel) (prepared slide): Negative in the tumor cells. NOTE: One or more of the re [...] characteristics have been de termined by [facility] and/or by the referring laboratory. The [...] to perform high complexity clinical laboratory testing. Attestation By the signature below, the attending physician certifies that they have personally conducted a gross and/or microscopic [facility] Electronically examination of the described specimens and rendered or confirmed the above diagnosis. CENTER signed by FLOYD Luciano MD on SERVICES 12/30/2020 at 14 10 Rapid Diagnosis RECTUS ABDOMINUS MUSCLE, RIG HT, ULTRASOUND GUIDED FINE NEEDLE ASPIRATION: [facility] MEDICAL Evaluation episode #1: Pass #1: Positive, consistent with adenocarcinoma. Additional passes recommended. CENTER Passes 2 and 3 obtained. LABORATORY Pass #2: Air dried and EtOH fixed smears. SERVICES Pass #3: Scant, air dried smear only. CytoLyt: Needle rinses; ThinPrep. Finding: discussed on site with Dr. Kyle Jain 12/24/2020 10:55 AM Rapid evaluation of this Fin e Needle Aspiration sample was performed by Pathologists at [facility], [address] [place] [address]. 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 [facility] 2 fixed prepared slides, 3 D iff Quik prepared slides, and 1 tube of CytoLyt were received and processed by selective cellular enhancement technique. [facility]ORATORY SERVICES Performing Lab [facility] LAB [facility] LABORATORY SERVICES Scanned Images [facility] LABORATORY SERVICES Specimen ZZUNK - Soft tissue (navigational concep t) Performing Organization Address City/State/ZIP Code Phon e Number [facility] LABORATORY [address] [place] [address] SERVICES documented in this encounter Visit Diagnoses Diagnosis Encounter for other general examination documented in this encounter Care Teams Knockout Worker Relationship Specialty Start Date End Date Manuel Isaacs MD PCP - General 04/02/[address] [place] [phone] documented as of this encounter
--- OUTSIDE RECORDS SUMMARY | 2021-11-06 01:27 | XMS_ITS | Encounter Summary ---
:1940 Author Organization [facility] Address [address] [place] [address] Care Team Providers Name Role Phone Manuel Isaacs MD Primary Care Provider Encounter Details Date Type Department Care Team Description 06/26/2021 Lab Requisition [facility] Outr Resulting Lab, Pathology & Laboratory Provider [facility] [address] [place] [address] Social History Tobacco Use Types [...] Date/Time Associated Diagnosis Comme nts CEA Routine 06/26/2021 8:50 EDT Results for this procedure are i n the results section . documented in this encounter Results CEA (06/26/2021 8:50 EDT) CEA 8.2 See Note [facility] Comment: ng/mL LABORATORY % Distribution of [...] malignant disease. ?? Assayed on Siemens ADVIA [employer] taur XPT using chemiluminescent technology. ??Values obtained by different assay methods cannot be used interchangeably. Specimen Blood - Venous blood (substance) Performing Organization Address City/State/ZIP Code Phon e Number [facility] LABORATORY [address] [place] [address] SERVICES documented in this encounter Visit Diagnoses Not on filedocumented in this encounter Care Teams Loan Inspector Relationship Specialty Start Date End Date Manuel Isaacs MD PCP - General 04/02/[address] [place] [phone] documented as of this encounter
--- OUTSIDE RECORDS SUMMARY | 2021-11-06 01:27 | XMS_ITS | Encounter Summary ---
:1940 Author Organization [facility] Address [address] [place] [address] Care Team Providers Name Role Phone Manuel Isaacs MD Primary Care Provider Encounter Details Date Type Department Care Team Description 08/21/2021 Lab Requisition [facility] Outr Resulting Lab, Pathology & Laboratory Provider [facility] [address] [place] [address] Social History Tobacco Use Types [...] Date/Time Associated Diagnosis Comme nts CEA Routine 08/21/2021 9:30 EDT Results for this procedure are i n the results section . documented in this encounter Results CEA (08/21/2021 9:30 EDT) CEA 4.3 See Note [facility] Comment: ng/mL LABORATORY % Distribution of [...] malignant disease. ?? Assayed on Siemens [employer] taur XPT using chemiluminescent technology. ??Values obtained by different assay methods cannot be used interchangeably. Specimen Blood - Venous blood (substance) Performing Organization Address City/State/ZIP Code Phon e Number [facility] LABORATORY [address] [place] [address] SERVICES documented in this encounter Visit Diagnoses Not on filedocumented in this encounter Care Teams Superintendent Police Relationship Specialty Start Date End Date Manuel Isaacs MD PCP - General 04/02/[address] [place] [phone] documented as of this encounter
--- OUTSIDE RECORDS SUMMARY | 2021-11-06 01:27 | XMS_ITS | Encounter Summary ---
:1940 Author Organization [facility] Address [address] [place] [address] Care Team Providers Name Role Phone Manuel Isaacs MD Primary Care Provider Encounter Details Date Type Department Care Team Description 10/23/2021 Lab Requisition [facility] Outr Resulting Lab, Pathology & Laboratory Provider [facility] [address] [place], [place] [id number] Social History Tobacco Use Types Packs/Day Years [...] . documented in this encounter Results CEA (10/23/2021 10:47 EDT) CEA 4.4 See Note [facility] Comment: ng/mL LABORATORY % Distribution [...] malignant disease. ?? Assayed on Siemens ADVIA [employer]te[employer] ([employer]) taur XPT using chemiluminescent technology. ??Values obtained by different assay methods cannot be used interchangeably. Specimen Blood - Venous blood (substance) Performing Organization Address City/State/ZIP Code Phon e Number [facility] LABORATORY [address] [place] [address] SERVICES documented in this encounter Visit Diagnoses Not on filedocumented in this encounter Care Teams Etcher Printed Circuit Boards Relationship Specialty Start Date End Date Manuel Isaacs MD PCP - General 04/02/[address] [place] [phone] documented as of this encounter
--- OUTSIDE RECORDS SUMMARY | 2021-11-06 01:27 | XMS_ITS | Encounter Summary ---
:1940 Author Organization [facility] Address [address] [place] [address] Care Team Providers Name Role Phone Manuel Isaacs MD Primary Care Provider Encounter Details Date Type Department Care Team Description 06/12/2021 Lab Requisition [facility] Outr Resulting Lab, Pathology & Laboratory Provider [facility] [address] [place], [place] [id number] Social History Tobacco Use Types Packs/Day Years [...] Date/Time Associated Diagnosis Comme nts CEA Routine 06/12/2021 8:05 EST Results for this procedure are i n the results section . documented in this encounter Results CEA (06/12/2021 8:05 EST) CEA 3.8 See Note [facility] Comment: ng/mL LABORATORY % Distribution of CEA [...] Organization Address City/State/ZIP Code Phon e Number [facility] LABORATORY [address] [place] [address] SERVICES documented in this encounter Visit Diagnoses Not on filedocumented in this encounter Care Teams Garment Steamer Relationship Specialty Start Date End Date Manuel Isaacs MD PCP - General 04/02/[address] [place] [phone] documented as of this encounter
--- OUTSIDE RECORDS SUMMARY | 2021-11-06 01:28 | XMS_ITS | Encounter Summary ---
:1940 Author Organization [facility] Address [address] [place] [address] Care Team Providers Name Role Phone Unavailable Primary Care Provider Unavailable Encounter Details Date Type Department Care Team Description 11/21/2007 Before PRISM Converted [facility] Unknown, Visit (Maple) Adult Primary Care - Provider, Merrill [place] [phone] [address] [facility] (Work) [place] [address] Social History Tobacco Use Types Packs/Day Years Used Date Never Assessed Sex Assigned at Date Recorded Not on file documented as of this encounter Plan of Treatment Not on filedocumented as of this encounter Procedures Procedure Name Priority Date/Time Associated Diagnosis Comme nts CYTOPATHOLOGY Routine 11/21/2007 0:00 EDT Results for this procedure are i n the results section . documented in this encounter Results CYTOPATHOLOGY (11/21/2007 0:00 EDT) Pathology Report: CYTOPATHOLOGY REPORT ? [facility] ? LAB Reports generated via LumaStream interface contain original data; ? however they are lacking the format of the original report. ? Caution should be taken when reading/interpreting unformatted reports. ? Name: ? ADRIANAANGEL JOY Momin ? Accession #: ? [id number] ? : ? 1940 (Age: 67) ??F ?Collect Date: ? 11/21/2007 ? Location: ? [facility] ? Receive Date: ? 11/23/2007 ? Provider: ?DOCTOR ALEN COPELAND MD ? Copy to: ?ETHEL JARA MD ? Specimen/Source: ? ThinPrep Pap Test, Endocervix, processed on Cytyc ? ThinPrep Imaging System, wit h manual evaluation ? Last Menstrual Period: ? Menstrual/ Status: ? Post Menopausal ? SPECIMEN ADEQUACY ? Satisfactory for Eval uation ? - transformation zone compon ent absent ? GENERAL CATEGORIZATION ? Negative for Intraepi thelial Lesion or Malignancy ? Document reviewed and electr onically signed by: ? Meenakshi Day, CT( CP)(IAC) ? Report Date: ??11/26/ 2007 12:56 ? End of Report ? Specimen Performing Organization Address City/State/ZIP Code Phon e Number [facility] LABORATORY [address] [place] [address] SERVICES [facility] [address] [place] [address] documented in this encounter Visit Diagnoses Not on filedocumented in this encounter
--- OUTSIDE RECORDS SUMMARY | 2021-11-06 01:28 | XMS_ITS | Encounter Summary ---
:1940 Author Organization [facility] Address [address] [place] [address] Care Team Providers Name Role Phone Dacia Hendrix MD Primary Care Provider [phone] Reason for Referral SENIOR INTERNAL AUDITOR (Routine) - Closed Specialty Diagnoses / Procedures Referred By Contact Refer red To Contact Diagnoses Adnexal cyst Fluid in endometrial cavity Shantelle Ureña MD Procedures GLASSWARE DEFECT REPAIRER US PELVIS TRANSVAGINAL [address] [place] [phone] Referral ID Status Reason Start Date Expiration Date Visits Requ ested Visits Authorized [id number] Closed 06/21/2016 1 1 Encounter Details Date Type Department Care Team Description 06/21/2016 Orders Only [facility] Shantelle Ureña Adnexa l cyst (Primary Dx); Women's Services - MD Claudine Fluid in endometrial cavity [facility] [address] [place] [place], [place] [address] [place] [address] [phone] (Wo rk) Social History Tobacco Use [...] Name Priority Date/Time Associated Diagnosis Comme nts GLASSWARE DEFECT REPAIRER US PELVIS Routine 06/20/2017 9:07 Adnexal cyst Results for this TRANSVAGINAL EDT Fluid in endometrial procedu re are in cavity the results section. documented in this encounter Results GLASSWARE DEFECT REPAIRER US PELVIS TRANSVAGINAL (06/20/2017 9:07 EDT) Anatomical Region Laterality Modality Other Specimen Narrative [facility] RADIOLOGY MATERNAL FE [facility]OR MEDICINE ACC - 06/20/2017 11:15 EDT Indication Follow-up simple adnexal cyst . Uterus ======= Uterus: ?Visualized Uterus position: ?? Anteverted Uterine malformations: None Myometrium: ?Appears normal Endometrium: ?? Endometrial thickness is normal for a postmenopausal woman(<5mm), stable mild anechoic fluid within Cervix details: ?Normal appearance Uterus long ?9.5 cm Uterus ap ??4.6 cm Uterus tr ??5.9 cm Endometrial thickness, total ?? 4.1 mm Fibroids: ??No fibroids identified Polyps: ?No polyps identified Right Ovary Rt ovary: ??Ovary not visualized Left Ovary Lt ovary: ??Ovary not visualized [place] Appears normal. No free fluid visualized . Impression Transvaginal Pelvic [id number] 1. Stable intracavitary fluid with thin endometrium measured by double thickness. 2. Stable adnexal anechoic tubular struc ture consistent with hydrosalpinx as previously described. Ov peng were unable to be visualized due to postmenopausal status and overlying bowel. No additional adnexal cysts or masses ident ified. Follow-up Follow-up as clinically indicated. Comment ========= Ultrasound findings discussed w/patient. Prior ultrasounds reviewed and compared to today's ultrasound. See PRISM note for additional details. DATE OF SERVICE: 06/20/2017 Procedure Note Shantelle Ureña MD - 06/20/2017 Indication Follow-up simple adnexal cyst . Uterus ======= Uterus: Visualized Uterus position: Anteverted Uterine malformations: None Myometrium: Appears normal Endometrium: Endometrial thickness is no rmal for a postmenopausal woman(<5mm), stable mild anechoic fluid within Cervix details: Normal appearance Uterus long 9.5 cm Uterus ap 4.6 cm Uterus tr 5.9 cm Endometrial thickness, total 4.1 mm Fibroids: No fibroids identified Polyps: No polyps identified Right Ovary Rt ovary: Ovary not visualized Left Ovary Lt ovary: Ovary not visualized [place] Appears normal. No free fluid visualized . Impression Transvaginal Pelvic [id number] 1. Stable intracavitary fluid with thin endometrium measured by double thickness. 2. Stable adnexal anechoic tubular struc ture consistent with hydrosalpinx as previously described. Ov peng were unable to be visualized due to postmenopausal status and overlying bowel. No additional adnexal cysts or masses ident ified. Follow-up Follow-up as clinically indicated. Comment ========= Ultrasound findings discussed w/patient. Prior ultrasounds reviewed and compared to today's ultrasound. See PRISM note for additional details. DATE OF SERVICE: 06/20/2017 Performing Organization Address City/State/ZIP Code Phon e Number [facility] RADIOLOGY MATERNAL MEDICINE ACC documented in this encounter Visit Diagnoses Diagnosis Adnexal cyst - Primary Other specified symptom associated with female genital organs Fluid in endometrial cavity Other specified disorders of uterus, not elsewhere classified documented in this encounter Care Teams Vinyl Installer Relationship Specialty Start Date End Date Dacia Hendrix MD PCP - General 12/23/15 06/16/17 [address] [place] [address] documented as of this encounter
--- OUTSIDE RECORDS SUMMARY | 2021-11-06 01:28 | XMS_ITS | Encounter Summary ---
:1940 Author Organization [facility] Address [address] [place] [address] Care Team Providers Name Role Phone Nayan Hilton DO Primary Care Provider Reason for Visit (Routine) - Receiving Office to Obtain Authorization Specialty Diagnoses / Procedures Referred By Contact Refer red To Contact Procedures Unknown, Provider, US OUTSIDE IMAGES BODY Phone: Referral ID Status Reason Start Expiration Visits Visits Date Date Requested Authorized [id number] Receiving Office 11/07/2019 1 1 to Obtain Authorization Encounter Details Date Type Department Care Team Description 10/23/2019 Hospital Encounter [facility] Radiology - Main [place] [address] [place] [address] Social History Tobacco Use Types Packs/Day Years [...] Name Priority Date/Time Associated Diagnosis Comme nts US OUTSIDE IMAGES Routine 11/07/2019 12:17 Result s for this BODY EDT procedure are i n the results section. documented in this encounter Results US OUTSIDE IMAGES BODY (11/07/2019 12:17 EDT) Specimen Narrative YAMILKASON - 11/07/2019 12:17 EDT This is a non-reportable exam. Performing Organization Address City/State/ZIP Code Phon e Number [email or web address] documented in this encounter Visit Diagnoses Not on filedocumented in this encounter Care Teams Expert Witness Relationship Specialty Start Date End Date Nayan Hilton DO PCP - General 06/17/17 04/01/20 documented as of this encounter
--- OUTSIDE RECORDS SUMMARY | 2021-11-06 01:28 | XMS_ITS | Encounter Summary ---
:1940 Author Organization Health system Address [address] [place] [address] Care Team Providers Name Role Phone YobaniNayan Pedro HARRISON Primary Care Provider Manuel Isaacs MD Primary Care Provider Encounter Details Date Type Department Care Team Description 10/24/[address] [facility] Jamie Jean-Baptiste E ncounter for other Pathology & general examination Laboratory Medicine [address] [place] [address] [address] [place] [address] [place], [place] [address] Social History Tobacco Use Types Packs/Day Years [...] Associated Diagnosis Comme nts SURGICAL PATHOLOGY Today 10/24/2019 9:50 EDT Re sults for this procedure are i n the results section. documented in this encounter Results SURGICAL PATHOLOGY (10/24/2019 9:50 EDT) Ancillary Studies RESULTS OF IMMUNOHISTOCHEMIC AL STAINING: Retained expression of MLH1, PMS2, MSH2 and MSH6 [facility] Addendum Addendum CENTER electronically INTERPRETATION: These result s are indicative of normal DNA mismatch repair function within the tumor. This patient most likely does not have Oneil syndrome. However, it is important to note that 3-10% o LABO RATORY signed by cruz Herring Oneil syndrome patients ma y reveal retained expression of mismatch repair proteins due to mutation in other genes. Hence these findings should be interpreted in the context of family and clinical hist SERVI JENNY Morgan MD on ory. If results do not match clinicopathologic findings, molecular testing (specifically microsatellite instability by PCR) can be ordered upon obtaining preauthorization or an advanced beneficiary notice. 10/29/2019 at 1152 ANTIBODY (CLONE) (BLOCK): RESULT MLH1 (M1, Jaars) (block A-3): Retained expression in tumor PMS2 (A16-4, Jaars) (block A-3): Retained expression in tumor MSH2 ([id number], Jaars) (block A-3): Retained expres bettina in tumor MSH6 (SP93, Jaars) (block A-3): Retained expression in tumor Internal controls: Adequate NOTE: One or more of the re agents used in immunohistochemical testing in this case may not have been cleared or approved by the U.S. Food and Drug Administration (FDA). The FDA has determined that such clearance or approval is no t necessary. These tests are used for clinical purposes. They should not be regarded as investigational or for research. These reagents' performance characteristics have been determined by [facility] and/or by the referring laboratory. The positive and negative controls worked appropriately. This laboratory is certified under the Clinical Labor atory Improvement Amendments of 1988 (CLIA-88) as qualified to perform high complexity clinical laboratory testing. Final Diagnosis A. COLON, SIGMOID,MASS, BIOPSY: [facility] Electronically - Invasive adenocarcinoma, moderately differenti ated, colorectal primary CENTER signed by Keyonna, - See comment. LABORATORY Cecilia Morgan MD on SERVICES 10/26/2019 at 16 44 B. COLON, SIGMOID, POLYP, BIOPSY: - Hyperplastic polyp Attestation There was significant [facility] Electr onically resident/fellow CENTER signed by Fr lopez, involvement in the LABORATORY Merrill Gaston on diagnostic evaluation of SERVICES 10/03 at 1644 this case. By the signature below, the attending physician certifies that they have personally conducted a gross and/or microscopic examination of the described specimens and rendered or confirmed the above diagnosis. Diagnosis Comment Immunoperoxidase stains were performed on this case to further characterize the lesion. [facility] ANTIBODY(CLONE)(BLOCK):RESULT CENTER CK7 (RN7, Leica) (A3): Negative LABORATOR Y CK20 (Ks20.8, Leica) (A3): Positive SERVI JENNY CDX-2 (EP25, Leica) (A3): Positive NOTE: One or more of the re [...] characteristics have been de termined by [facility] and/or by the referring laboratory. The [...] to perform high complexity clinical laboratory testing. Immunohistochemical stains f or microsatellite instability will be performed, the results of which will be issued in a separate report. Clinical History Colovesicular fistula; 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 Received in formalin labe lled with proper patient identification (initials H, I) and A. Sigmoid mass Bxs is an aggregate of firm pale pate focally brown tissue (1.4 x 1.3 x 0.3 cm). Entirely submitted in A1-A4. [facility] CENTER B. Received in formalin labe lled with proper patient identification (initials H, I) and B. Sigmoid polyp are three firm pale pate focally pate tissues (0.3 x 0.2 x 0.1 cm to 0.2 x 0.2 x 0.2 cm). Entirely submitted in B1. LABORATORY SERVICES Dharmesh Yousif 10/25/2019 8:37 Resident/Fellow: Reinier Torres MD [facility] Scanned Images [facility] SERVICES Specimen Tissue - Colon, Polyp Tissue specimen (specimen) - Colon, Poly p Performing Organization Address City/State/ZIP Code Phon e Number [facility] [address] [place] [address] SERVICES documented in this encounter Visit Diagnoses Diagnosis Encounter for other general examination documented in this encounter Care Teams Staff Antisubmarine Officer Relationship Specialty Start Date End Date Nayan Hilton DO PCP - General 06/17/17 04/01/20 Manuel Isaacs MD PCP - General 04/02/[address] [place] [phone] documented as of this encounter
--- OUTSIDE RECORDS SUMMARY | 2021-11-06 01:28 | XMS_ITS | Encounter Summary ---
:1940 Author Organization [facility] Address [address] [place] [address] Care Team Providers Name Role Phone Jodi Camp MD Primary Care Provider Encounter Details Date Type Department Care Team Description 09/03/2015 Results Only Imaging [facility]- Emergency, HENRY Ny MD [phone] Social History Tobacco Use Types Packs/Day Years Used Date Never Assessed Sex Assigned at Date Recorded Not on file documented as of this encounter Plan of Treatment Pending Results Name Type Priority Associated Diagnoses Date/Ti me OUTSIDE IMAGES - OTHER Imaging 09/02 8:40 EDT CHEST documented as of this encounter Visit Diagnoses Not on filedocumented in this encounter Care Teams Clip Loading Machine Feeder Relationship Specialty Start Date End Date Jodi Camp MD PCP - General 09/03/15 12/22/15 [facility] [address] [address] documented as of this encounter
--- OUTSIDE RECORDS SUMMARY | 2021-11-06 01:28 | XMS_ITS | Encounter Summary ---
:1940 Author Organization [facility] Address [address] [place] [address] Care Team Providers Name Role Phone Dacia Hendrix MD Primary Care Provider [phone] Reason for Referral PHOTO MASK CLEANER (Other (Specify in Question)) - Closed Specialty Diagnoses / Procedures Referred By Contact Refer red To Contact Diagnoses Adnexal cyst Fluid in endometrial cavity Shantelle Ureña MD Procedures REMOTE SENSING TECHNICIAN US PELVIS TRANSVAGINAL [address] [place] [address] [address] [place] [address] Referral ID Status Reason Start Date Expiration Date Visits Requ ested Visits Authorized [id number] Closed 12/23/2015 1 1 Reason for Visit Reason Comments Advice Only possible adnexal mass/cyst Encounter Details Date Type Department Care Team Description 12/23/2015 Initial consult [facility] Shantelle Ureña exal cyst (Primary Dx); Women's Services - MD [place] Fluid in endometrial cavity [facility] [address] [place] [address] (Wo rk) Social History Tobacco [...] Blood Pressure 102/84 12/23/2015 1339 EDT Pulse - - Temperature - - Respiratory Rate - - Oxygen Saturation - - Inhaled Oxygen Concentration - - Weight 90.7 kg (200 lb) 12/23/2015 1339 EDT Height 160 cm (5' 3) 12/23/2015 1339 EDT Body Mass Index 35.43 12/23/2015 1339 EDT documented in this encounter Functional Status [...] making decisions? documented as of this encounter Discharge Diagnoses Diagnosis N94.9 Unspecified condition associated w ith female genital organs and menstrual cycle-N94.9[ICD-10-CM] N85.9 Noninflammatory disorder of uterus , unspecified-N85.9[ICD-10-CM] documented in this encounter Discharge Disposition Disposition Code Departure Means Destination Auto Discharge documented in this encounter Progress Notes Shantelle Ureña MD - 12/23/2015 1516 EDT Consult Requested By: Dr. Hendrix - adnexal mass Subjective: Joy Armstrong is a 75 y.o. female in consultation for incidental findings noted on recent CT scan and ultrasound. Patient developed septic shock in early September and had a CT scan to evaluate for possiblesource and was found to have a right adnexal mass. They were unable to identify a clear source for her sepsis, however she was transferred from [facility] to [facility] for ICU care requiring pressors and IV antibiotics. She recovered with those treatments and was subsequently discharged home without ever identifying the etiology of her sepsis. In follow- up, her PCP obtained a cell repairer U/S at [facility] to evaluate the adnexal mass which again noted the mass but was unable to identify the source (hydrosalpinx vs ovarian cystic mass vs GI stricture) and she was subsequently referred back to [facility] for another U/S and consult with Gynecology. Overall, the patient reports that she feels quite well and has recovered from her hospitalization inJune. She has no specific complaints at this time and denies any fevers/chills, chest pain, respiratory symptoms, abdominal pain, N/V, changes in bowel/bladder function, vaginal discharge, vaginal bleed ing/spotting, pelvic pain or other complaints. 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 Patient is postmenopausal. Pt believes her last period was in 1983, had menses starting at age 15 and were regular until menopause. No history of abnormal paps or STI's. Past Medical History Diagnosis Date ??? Hyperlipidemia ??? Obesity, Class II, BMI 35-39.9, with comorbidity ??? Thyroid disease ??? Urge incontinence Family History Problem Relation Age of Onset ??? Breast Cancer Mother 83 ??? Colon Cancer Mother 79 ??? Colon Polyps Mother ??? Colon Cancer Sister 67 rectal ??? Colon Cancer Maternal Grandfather 66 ??? Colon Polyps Sister Sisters both with colon polyps, she and her sisters have been tested for HNPCC gene and were negative. Apart from her mother with breast cancer and colon cancer as noted above, denies any history of breast, uterine, ovarian, prostate or other familial cancers. Current Outpatient Prescriptions Medication Sig Dispense Refill ??? aspirin chewable 81 mg tablet Take 1 Tab by mouth daily. ??? levothyroxine (SYNTHROID) 112 mcg tablet Take 112 mcg by mouth daily. ??? oxybutynin (DITROPAN) 5 mg tablet Take 5 mg by mouth daily. No current facility-administered medications for this visit. No Known Allergies Social History Social History ??? Marital status: Spouse name: N/A ??? Number of children: N/A ??? Years of education: N/A Occupational History ??? Not on file. Social History Main Topics ??? Smoking status: Never Smoker ??? Smokeless tobacco: Never Used ??? Alcohol use No ??? Drug use: No ??? Sexual activity: Not Currently Partners: Male Other Topics Concern ??? Not on file Social History Narrative Review of Systems REMOTE SENSING TECHNICIAN ROS Complete: negative Data Keyer Objective: Visit Vitals ??? BP 102/84 (BP Cuff Location: Left arm, Patient Position: Sitting, BP Cuff Sizes: Adult, regular) ??? Ht 160 cm (63) ??? Wt 90.7 kg (200 lb) ??? BMI 35.43 kg/m2 General: Appears well, obese, no acute distress Abd: Soft, nontender, nondistended, no rebound/guarding, no discomfort with superficial or deep palpation Pelvic: Not indicated Extrem: Warm, well-perfused, no edema Imaging I personally reviewed the images from today's ultrasound,the images are suboptimal but show a small,anteverted uterus with anechoic fluid in the endometrial canal, as well as a right adnexal simple cystic structure, appears to be arising from the right ovary and approximately similar in size to the pr evious ultrasound. No evidence for septations, thickened wall or other concerning features. Assessment: 75 y.o. asymptomatic, postmenopausal female with incidental finding of right adnexal mass and fluid in the endometrial canal. Plan: Discussed with patient that both findings (right adnexal cyst and fluid in the endometrial canal) are most commonly benign in otherwise asymptomatic patients. We discussed that the right adnexal cysticlesion was likely either a benign simple ovarian cyst, a paratubal cyst or less likely based on location a hydrosalpinx or peritoneal inclusion cyst. Discussed that monitoring of these cysts in postmenopausal women was recommended with serial ultrasound every 6-12 months to monitor for growth or development of concerning features. Additionally we discussed the low possibility of torsion or rupture with cysts and to call should she develop any RLQ pain or related complaints. With regards to the fluid in the endometrial canal, we discussed that this was also commonly a benign incidental finding in postmenopausal women and that was likely related to cervical stenosis, endometrial polyp or vaginal atrophy. Given the lack of bleeding or spotting, I advised that we would not recommend an endometrial biopsy or further workup at this time. However, she was advised to call should she develop any spotting or bleeding or unusual discharge. Additionally, we discussed that we can reevaluate this at the time of her U/S in 6-12 months to ensure no significant changes. At this time, I recommended that we see her back in 6 months time for a REMOTE SENSING TECHNICIAN ultrasound which I have taken the liberty of ordering and will follow-up with those results at that time. All questions answered. Time Spent Counseling Patient: I spent 45 minutes with patient greater than 50% which was counseling. Shantelle Ureña MD documented in this encounter Plan of Treatment Not on filedocumented as of this encounter Procedures Procedure Name Priority Date/Time Associated Diagnosis Comme nts REMOTE SENSING TECHNICIAN US PELVIS Routine 06/21/2016 9:18 Adnexal cyst Results for this TRANSVAGINAL EDT Fluid in endometrial procedu re are in cavity the results section. documented in this encounter Results REMOTE SENSING TECHNICIAN US PELVIS TRANSVAGINAL (06/21/2016 9:18 EDT) Anatomical Region Laterality Modality Other Specimen Narrative [facility] RADIOLOGY MATERNAL [facility] - 06/21/2016 9:43 EDT Indication Follow-up Right adnexal cystic mass. Uterus ======= Uterus position: ?? Anteverted Myometrium: ?Appears normal Endometrium: ?? simple fluid within cavi ty Uterus long ?7.1 cm Uterus ap ??4.7 cm Uterus tr ??4.5 cm Endometrial thickness, total ?? 2.2 mm Fibroids: ??No fibroids identified Right Ovary Rt ovary: ??Visualized, normal appearanc e Rt ovary details: ??visualized transabdo minally Rt ovary D1 ?1.9 cm Rt ovary D3 ?1.1 cm Rt ovary mean ??1.5 cm Left Ovary Lt ovary: ??Visualized, normal appearanc e Lt ovary details: ??Adnexa appears nasir l, viualized transabdominally Lt ovary D1 ?1.8 cm Lt ovary D2 ?1.0 cm Lt ovary D3 ?1.0 cm Lt ovary mean ??1.3 cm Lt ovary vol ?? 1.0 cm cubed [place] Appears normal. No free fluid visualized . Impression Transvaginal(71997) and Transabdominal L imited (44788)pelvic US 1. Uterus with normal appearing myometri um, endometrium is thin but contains simple fluid throughout. 2. Both ovaries seen transabdominally an d appear normal without cysts or masses. 3. There is a simple cystic mass measuri ng 8.03 x 3.41 x 8.05 cm located posterior to the uterus and towa rds the right. There are no septations visualized, no papillary excr escences or other concerning features. Most likely this is a hydrosal pinx or peritoneal inclusion cyst. Follow-up Counseled patient on possible etiologies /causes of both the endometrial fluid and the pelvic cyst. G iven lack of any symptoms (pain, bloating, vaginal bleeding/discha rge), patient does not wish to pursue any further testing at this ti me. Discussed possibility of endometrial biopsy, Ca-125 as next steps in evaluation, which patient declines today. She is willing t o do another U/S in 1 year or return sooner if any symptoms or issu es arise. Comment ========= Prior ultrasound and CT ( 10/03/2015) revi ewed and compared to today's ultrasound, CT images especially compell ing for likely diagnosis of hydrosalpinx. No significant change in s ize since prior exams. Ultrasound findings discussed w/patient. Procedure Note Shantelle Ureña MD - 06/21/2016 Indication Follow-up Right adnexal cystic mass. Uterus ======= Uterus position: Anteverted Myometrium: Appears normal Endometrium: simple fluid within cavity Uterus long 7.1 cm Uterus ap 4.7 cm Uterus tr 4.5 cm Endometrial thickness, total 2.2 mm Fibroids: No fibroids identified Right Ovary Rt ovary: Visualized, normal appearance Rt ovary details: visualized transabdomi servando Rt ovary D1 1.9 cm Rt ovary D3 1.1 cm Rt ovary mean 1.5 cm Left Ovary Lt ovary: Visualized, normal appearance Lt ovary details: Adnexa appears normal, viualized transabdominally Lt ovary D1 1.8 cm Lt ovary D2 1.0 cm Lt ovary D3 1.0 cm Lt ovary mean 1.3 cm Lt ovary vol 1.0 cm cubed [place] Appears normal. No free fluid visualized . Impression Transvaginal(44076) and Transabdominal L imited (76041)pelvic US 1. Uterus with normal appearing myometri um, endometrium is thin but contains simple fluid throughout. 2. Both ovaries seen transabdominally an d appear normal without cysts or masses. 3. There is a simple cystic mass measuri ng 8.03 x 3.41 x 8.05 cm located posterior to the uterus and towa rds the right. There are no septations visualized, no papillary excr escences or other concerning features. Most likely this is a hydrosal pinx or peritoneal inclusion cyst. Follow-up Counseled patient on possible etiologies /causes of both the endometrial fluid and the pelvic cyst. G iven lack of any symptoms (pain, bloating, vaginal bleeding/discha rge), patient does not wish to pursue any further testing at this ti id. Discussed possibility of endometrial biopsy, Ca-125 as next steps in evaluation, which patient declines today. She is willing t o do another U/S in 1 year or return sooner if any symptoms or issu es arise. Comment ========= Prior ultrasound and CT ( 10/03/2015) revi ewed and compared to today's ultrasound, CT images especially compell ing for likely diagnosis of hydrosalpinx. No significant change in s ize since prior exams. Ultrasound findings discussed w/patient. Performing Organization Address City/State/ZIP Code Phon e Number [facility] documented in this encounter Visit Diagnoses Diagnosis Adnexal cyst - Primary Other specified symptom associated with female genital organs Fluid in endometrial cavity Other specified disorders of uterus, not elsewhere classified documented in this encounter Discontinued Medications Medication Sig Discontinue Reason Start Date End Date acetaminophen (TYLENOL) Take 2 Tabs by 09/07/2015 325 mg tablet mouth every 4 hours as needed for Pain. docusate sodium (COLACE) Take 1 Cap by 09/07/2015 100 mg capsule mouth 2 times daily as needed for Constipation. PEG 3350-Electrolytes Take 17 g by mouth 09/07/2015 12/23/2015 (MIRALAX) 17 gram packet 2 times daily as needed for Other (constipation). simvastatin (ZOCOR) 40 mg Take 40 mg by 0 12/23/2015 tablet mouth every evening. documented as of this encounter Care Teams Manufacturing Teacher Relationship Specialty Start Date End Date Dacia Hendrix MD PCP - General 12/23/15 06/16/17 [address] [place] [address] documented as of this encounter
--- OUTSIDE RECORDS SUMMARY | 2021-11-06 01:28 | XMS_ITS | Encounter Summary ---
:1940 Author Organization [facility] Address [address] [place] [address] Care Team Providers Name Role Phone Fabiano Aranda MD Primary Care Provider Reason for Visit Reason Onset Date Comments Results 03/16/2010 Encounter Details Date Type Department Care Team Description 03/16/2010 Telephone [facility] Lino Ashton MS Results Hematology & Oncology - [address] [place] [address] [address] [facility] [place] [address] [phone] Social History Tobacco Use Types Packs/Day Years Used Date Never Assessed Sex Assigned at Date Recorded Not on file documented as of this encounter Miscellaneous Notes Telephone Encounter - Jennifer Ashton MS - 03/16/2010 1201 EST I spoke with Joy regarding her genetic test results. She tested NEGATIVE for the familial APC mutation identified in other of her family members. We discussed that her risks for colon cancer are the same as for the general population and average risk colon cancer screening is recommended. documented in this encounter Plan of Treatment Not on filedocumented as of this encounter Visit Diagnoses Not on filedocumented in this encounter Care Teams Automatic Spinning Lathe Operator Relationship Specialty Start Date End Date Fabiano Aranda MD PCP - General 02/20/10 09/02/[address] [place] [address] [address] [place] [id number] documented as of this encounter
--- OUTSIDE RECORDS SUMMARY | 2021-11-06 01:28 | XMS_ITS | Encounter Summary ---
:1940 Author Organization [facility] Address [address] [place] [address] Care Team Providers Name Role Phone Jodi Camp MD Primary Care Provider Reason for Visit Reason Onset Date Comments Appointment Related 09/29/2015 Encounter Details Date Type Department Care Team Description 09/29/2015 Telephone [facility] Acute Cami Drake R N Appointment Related Care Surgery - Main [place] [address] [place] [address] Social History Tobacco Use Types Packs/Day Years Used Date Never Smoker Alcohol Use Standard Drinks/Week Comments Not Asked 0 (1 standard drink = 0.6 oz [...] of a physical, mental, or emotional condition, do No 09/04/2015 you have difficulty doing errands alone such as visiting a doctor's office or shopping? (15 years old or older) Cognitive Status Response Date of Assessment Because of a physical, mental, or emotional condition, do No 09/04/2015 you have serious difficulty concentrating, remembering, or making decisions? (5 years old or older) documented as of this encounter Miscellaneous Notes Telephone Encounter - Cami Drake RN - 09/29/2015 9943 EDT Spoke to patient and scheduled follow-up appointment regarding perforated appendicitis. Appointment scheduled for October 07, 2015 at 9 am and she is aware of location. documented in this encounter Plan of Treatment Not on filedocumented as of this encounter Visit Diagnoses Not on filedocumented in this encounter Care Teams Sourcing Intern Relationship Specialty Start Date End Date Jodi Camp MD PCP - General 09/03/15 12/22/[address] [address] documented as of this encounter
--- OUTSIDE RECORDS SUMMARY | 2021-11-06 01:28 | XMS_ITS | Encounter Summary ---
:1940 Author Organization [facility] Address [address] [place] [address] Care Team Providers Name Role Phone YobaniNayan Pedro HARRISON Primary Care Provider Manuel Isaacs MD Primary Care Provider Encounter Details Date Type Department Care Team Description 10/19/2019 Lab Requisition [facility] Outr Resulting Lab, Pathology & Laboratory Provider [facility] [address] [place], [place] [id number] Social History Tobacco Use Types Packs/Day Years [...] Procedure Name Priority Date/Time Associated Comments Diagnosis DO NOT ORDER Today 10/19/2019 11:54 Results for this STANDALONE - BROAD EDT procedure are in COVID TEST the results section. COVID-19 TESTING Routine 10/19/2019 11:54 Results for this EDT procedure are i n the results section. documented in this encounter Results DO NOT ORDER STANDALONE - BROAD COVID TEST (10/19/2019 11:54 EDT) COVID-19 rt-PCR NEGATIVE Negative [facility] Result Comment: LABORATORY 2019-novel Coronavirus (2019 -nCoV) not detected by the qRT-PCR assay. Consider testing for other respiratory viruses or re-collecting for 2019-nCoV testing. Note: Optimum timing for peak viral levels du ring infections caused by 20 -nCoV have not been determined. Collection of multiple specimens from the same patient may be necessary to detect the virus. Limitations Positive results are indicat mraciano of active infection with SARS-CoV-2 but do not rule out bacterial infection or co-infection with other viruses. The agent detected may not be the definite cause of diseas e. In addition, detection of viral RNA may not indicate the presence of infectious virus or that SARS-CoV-2 is the causative agent for clinical symptoms. Negative results do not prec lude SARS-CoV-2 infection and should not be used as the sole basis for patient management decisions. Negative results must be combined with clinical observations, patient his tory, and epidemiological in formation. False negative results may also occur if amplification inhibitors are present in the specimen or if inadequate numbers of organisms are present in the specimen. Op timum specimen types and eveline ing for peak viral levels during infections caused by SARS-CoV-2 have not been fully determined. Collection of multiple specimens (types and time points) from the same patient may be necessary to detect the virus. The test was validated for u se with upper respiratory specimens obtained via nasopharyngeal or oropharyngeal swabs in VTM, UTM, M4, M5, M6, saline, and MTM media. The performance of this test has not be en established for other spe cimens. Specimens collected using other FDA recommended Specimen Collection Materials listed in the FDA COVID-19 [employer] communication (June 28, 2019) are pr ocessed with the caveat that they were not all validated for use with this test and the result must be interpreted in this context. Furthermore, a false negative results may occur if a specimen is improperly collected, transported or handled. If the virus mutates in the RT-PCR target region, SARS-CoV-2 may not be detected or may be detected less predictably. Inhibitors or other types of interference may produce a false negative result. An interference study evaluating the effect of common cold medications was not performed. This test is not FDA-cleared but its performance characteristics were established by our CLIA-certified, CAP-accredited, high complexity laboratory in accordance with CLIA regulations, College of [employer] an [employer]ologists (CAP) guidel glenda (Jun 21, 2019), and FDA guidance (Jun 02, 2019). This test is only for use un lula the Food and Drug Administration's Emergency Use Authorization. Specimen Swab - Entire nasopharynx (body structur e) Performing Organization Address City/State/ZIP Code Phon e Number [facility] [place], [place] COVID-19 TESTING (10/19/2019 11:54 EDT) COVID-19 rt-PCR NEGATIVE Negative [facility] Result Comment: LABORATORY 2019-novel Coronavirus (2019 -nCoV) not detected by the qRT-PCR assay. Consider testing for other respiratory viruses or re-collecting for 2019-nCoV testing. Note: Optimum timing for peak viral levels du ring infections caused by 20 19-nCoV have not been determined. Collection of multiple specimens from the same patient may be necessary to detect the virus. Limitations Positive results are indicat marciano of active infection with SARS-CoV-2 but do not rule out bacterial infection or co-infection with other viruses. The agent detected may not be the definite cause of diseas e. In addition, detection of viral RNA may not indicate the presence of infectious virus or that SARS-CoV-2 is the causative agent for clinical symptoms. Negative results do not prec lude SARS-CoV-2 infection and should not be used as the sole basis for patient management decisions. Negative results must be combined with clinical observations, patient his tory, and epidemiological in formation. False negative results may also occur if amplification inhibitors are present in the specimen or if inadequate numbers of organisms are present in the specimen. Op timum specimen types and eveline ing for peak viral levels during infections caused by SARS-CoV-2 have not been fully determined. Collection of multiple specimens (types and time points) from the same patient may be necessary to detect the virus. The test was validated for u se with upper respiratory specimens obtained via nasopharyngeal or oropharyngeal swabs in [facility], UTM, M4, M5, M6, saline, and MTM media. The performance of this test has not be en established for other spe cimens. Specimens collected using other FDA recommended Specimen Collection Materials listed in the FDA COVID-19 [employer] communication (June 28, 2019) are pr ocessed with the caveat that they were not all validated for use with this test and the result must be interpreted in this context. Furthermore, a false negative results may occur if a specimen is improperly collected, transported or handled. If the virus mutates in the RT-PCR target region, SARS-CoV-2 may not be detected or may be detected less predictably. Inhibitors or other types of interference may produce a false negative result. An interference study evaluating the effect of common cold medications was not performed. This test is not FDA-cleared but its performance characteristics were established by our CLIA-certified, CAP-accredited, high complexity laboratory in accordance with CLIA regulations, College of [employer] an Pathologists (CAP) guidel glenda (Jun 21, 2019), and FDA guidance (Jun 02, 2019). This test is only for use un lula the Food and Drug Administration's Emergency Use Authorization. Performing Lab [facility] LABORATORY SERVICES Specimen Swab Performing Organization Address City/State/ZIP Code Phon e Number [facility] [address] [place] [address] SERVICES [facility] [place], [place] documented in this encounter Visit Diagnoses Not on filedocumented in this encounter Care Teams Rim Roller Setter Relationship Specialty Start Date End Date Nayan Hilton DO PCP - General 06/17/17 04/01/20 Manuel Isaacs MD PCP - General 04/02/[address] [place] [phone] documented as of this encounter
--- OUTSIDE RECORDS SUMMARY | 2021-11-06 01:28 | XMS_ITS | Encounter Summary ---
:1940 Author Organization [facility] Address [address] [place] [address] Care Team Providers Name Role Phone YobaniNayan Pedro HARRISON Primary Care Provider Manuel Isaacs MD Primary Care Provider Encounter Details Date Type Department Care Team Description 10/24/2019 Lab Requisition [facility] Outr Resulting Lab, Pathology & Laboratory Provider [facility] [address], [place] [phone] Social History Tobacco Use Types Packs/Day Years [...] Name Priority Date/Time Associated Diagnosis Comme nts CA 125 Routine 10/24/2019 10:54 EDT Results for this procedure are i n the results section . documented in this encounter Results CA 125 (10/24/2019 10:54 EDT) CA 125 17 <30 U/mL [facility] Comment: LABORATORY SERVICES NOTE: Serum CA 125 concentration s hould not be interpreted as absolute evidence for the presence or absence of malignant disease. Assayed on Siemens ADVIA Gladys taur XPT using chemiluminescent technology. ??Values obtained by using different assay methods cannot be used interchangeably. Specimen Blood - Venous blood (substance) Performing Organization Address City/State/[facility] Code Phon e Number [facility] [address] [place] [address] SERVICES documented in this encounter Visit Diagnoses Not on filedocumented in this encounter Care Teams Suppository Molding Machine Operator Relationship Specialty Start Date End Date Nayan Hilton DO PCP - General 06/17/17 04/01/20 Manuel Isaacs MD PCP - General 04/02/[address] [place] [phone] documented as of this encounter
--- OUTSIDE RECORDS SUMMARY | 2021-11-06 01:28 | XMS_ITS | Encounter Summary ---
:1940 Author Organization [facility] Address [address] [place] [address] Care Team Providers Name Role Phone Jodi Camp MD Primary Care Provider Encounter Details Date Type Department Care Team Description 10/22/2015 Hospital Encounter [facility] MD [facility] [address] [facility] [address] [place] [phone] Social History Tobacco Use Types Packs/Day Years [...] a physical, mental, or emotional condition, No 10/07/2015 does this person have difficulty doing errands alone such as visiting a doctor's office or shopping? Cognitive Status Response Date of Assessment Because of a physical, mental, or emotional condition, No 10/07/2015 does this person have serious difficulty concentrating, remembering, or making decisions? documented as of this encounter Discharge Diagnoses Diagnosis I51.7 Cardiomegaly-I51.7[ICD-10-CM] documented in this encounter Medications at Time of Discharge Medication Sig Dispensed Refills Start Date End Date aspirin chewable 81 mg Take 1 Tab by mouth 0 08/2015 tablet daily. levothyroxine (SYNTHROID) Take 112 mcg by 0 112 mcg tablet mouth daily. oxybutynin (DITROPAN) 5 mg Take 5 mg by mouth 0 tablet daily. acetaminophen (TYLENOL) Take 2 Tabs by 0 09/07/19 16 12/23/2015 325 mg tablet mouth every 4 hours as needed for Pain. docusate sodium (COLACE) Take 1 Cap by mouth 0 12/23/2015 100 mg capsule 2 times daily as needed for Constipation. PEG 3350-Electrolytes Take 17 g by mouth 0 201512/23/2015 (MIRALAX) 17 gram packet 2 times daily as needed for Other (constipation). simvastatin (ZOCOR) 40 mg Take 40 mg by mouth 0 12/23/2015 tablet every evening. documented as of this encounter Discharge Disposition Disposition Code Departure Means Destination Home or Self Penitentiary documented in this encounter Plan of Treatment Not on filedocumented as of this encounter Visit Diagnoses Not on filedocumented in this encounter Care Teams Cook Dessert Relationship Specialty Start Date End Date Jodi Camp MD PCP - General 09/03/15 12/22/[address] [address] documented as of this encounter
--- OUTSIDE RECORDS SUMMARY | 2021-11-06 01:28 | XMS_ITS | Encounter Summary ---
:1940 Author Organization [facility] Address [address] [place] [address] Care Team Providers Name Role Phone Nayan Hilton Primary Care Provider Manuel Isaacs MD Primary Care Provider Encounter Details Date Type Department Care Team Description 10/01/2019 Lab Requisition [facility] Viviana Loera for other Pathology & Ramsey Medina MD general examination Laboratory Medicine [address] [place] [address] [address] [place], [place] [id number] [place] [id number] Social History Tobacco Use Types Packs/Day Years [...] Associated Diagnosis Comme nts SURGICAL PATHOLOGY Today 09/28/2019 16:00 Resul ts for this EDT procedure are i n the results section. documented in this encounter Results SURGICAL PATHOLOGY (09/28/2019 16:00 EDT) Final Diagnosis A. SKIN OF VULVA, RIGHT LABIA, 9 O'CLOCK, BIOPSY: [facility] Electronically - Interface dermatitis. See comment. [facility] signed by [place] LABORATORY Merrill Johnson on SERVICES 10/04/2019 at 113 5 Attestation By the signature [facility] Electronica lly below, the attending CENTER signed by Damion, physician certifies LABORATORY Karin Hart MD on that they have 1) SERVICES 10/04/2019 a t 1135 personally conducted a gross and/or microscopic examination of the described specimen(s), and/or personally interpreted the results of laboratory testing of the described specimen(s), and 2) personally rendered or confirmed the above diagnosis. Diagnosis Comment Although there is no [facility] developed sclerosis, [place] the histologic LABORATORY features are SERVICES consistent with early lichen sclerosus. Microscopic Sections consist of a [facility] Description biopsy of [place] skin/mucosa. There is LABORATORY slight SERVICES hyperkeratosis. The epithelium varies to a mild degree in thickness. There is mild interface vacuolar change with occasional necrotic cells. There is a patchy lichenoid lymphocytic infiltrate. Collagen bundles in the superficial dermis are slightly thickened on deeper sections. Clinical History Lichen sclerosus [facility] LABORATORY SERVICES Gross Description A. Received in formalin labe lled with proper patient identification (initials H, I) and not otherwise specified is a shave biopsy of white focally pale pate skin (0.4 x 0.3 x 0.2 cm). The probable margin [facility] is inked blue. Specimen is submitted intact in A1. [place] [facility] Dharmesh Yousif 10/02/2019 9:47 SERVICES Scanned Images [facility] SERVICES Specimen Tissue - Entire vulva (body structure) Performing Organization Address City/State/ZIP Code Phon e Number [facility] [address] [place] [address] SERVICES documented in this encounter Visit Diagnoses Diagnosis Encounter for other general examination documented in this encounter Care Teams Can Reconditioner Relationship Specialty Start Date End Date Nayan Hilton DO PCP - General 06/17/17 04/01/20 Manuel Isaacs MD PCP - General 04/02/[address] [place] [phone] documented as of this encounter
--- OUTSIDE RECORDS SUMMARY | 2021-11-06 01:28 | XMS_ITS | Encounter Summary ---
:1940 Author Organization [facility] Address [address] [place] [address] Care Team Providers Name Role Phone Dacia Hendrix MD Primary Care Provider [phone] Encounter Details Date Type Department Care Team Description 06/21/2016 Hospital Encounter [facility] - Adele Ureña [facility] MD Claudine [phone] [address] [facility], [address] [place] [address] (Wo rk) Social History Tobacco [...] as of this encounter Discharge Diagnoses Diagnosis R19.00 Intra-abdominal and pelvic swelli ng, mass and lump, unspecified site-R19.00[ICD-10-CM] documented in this encounter Medications at Time [...] Code Departure Means Destination Home or Self Long-Term documented in this encounter Plan of Treatment Not on filedocumented as of this encounter Visit Diagnoses Not on filedocumented in this encounter Care Teams Autocutter Relationship Specialty Start Date End Date Dacia Hendrix MD PCP - General 12/23/15 06/16/[address] [place] [phone] documented as of this encounter
--- OUTSIDE RECORDS SUMMARY | 2021-11-06 01:28 | XMS_ITS | Encounter Summary ---
:[address] [facility] Address [address] [place] [address] Care Team Providers Name Role Phone Nayan Hilton DO Primary Care Provider Reason for Visit (Routine) - Receiving Office to Obtain Authorization Specialty Diagnoses / Procedures Referred By Contact Refer red To Contact Procedures Unknown, Provider, CT OUTSIDE IMAGES BODY Phone: Referral ID Status Reason Start Expiration Visits Visits Date Date Requested Authorized [id number] Receiving Office 11/07/2019 1 1 to Obtain Authorization Encounter Details Date Type Department Care Team Description 10/03/2019 Hospital Encounter [facility] Radiology - Main [place] [address] [place] [address] Social History Tobacco Use Types Packs/Day Years [...] Comme nts CT OUTSIDE IMAGES Routine 11/07/2019 12:12 Result s for this BODY EDT procedure are i n the results section. documented in this encounter Results CT OUTSIDE IMAGES BODY (11/07/2019 12:12 EDT) Specimen Narrative YAMILKASON - 11/07/2019 12:12 EDT This is a non-reportable exam. Performing Organization Address City/State/ZIP Code Phon e Number [facility] documented in this encounter Visit Diagnoses Not on filedocumented in this encounter Care Teams Banquet Pilot Relationship Specialty Start Date End Date Nayan Hilton DO PCP - General 06/17/17 04/01/20 documented as of this encounter
--- OUTSIDE RECORDS SUMMARY | 2021-11-06 01:28 | XMS_ITS | Encounter Summary ---
:[address] [facility] Address [address] [place] [address] Care Team Providers Name Role Phone Fabiano Aranda MD Primary Care Provider Reason for Visit Reason Comments Genetic Evaluation Encounter Details Date Type Department Care Team Description 02/23/2010 Office Visit [facility] Steffen Severino; Hematology & MD [place] Family history of polyps in the colon Oncology - [address] [address] [address], [place] [phone] (Wo rk) Social History Tobacco Use Types Packs/Day Years Used Date Never Assessed Sex Assigned at Date Recorded Not on file documented as of this encounter Progress Notes Jennifer Ashton MS - 02/23/2010 1523 EST See dictation documented in this encounter Plan of Treatment Not on filedocumented as of this encounter Visit Diagnoses Diagnosis Colon polyps Benign neoplasm of colon Family history of polyps in the colon Family history of colonic polyps Evaluation - Steffen Severino MD - 03/29/2010 1615 EST DIVISION OF HEMATOLOGY / ONCOLOGY NEW PATIENT EVALUATION - 02/23/2010 PROBLEMS: 1. Colon polyps. 2. Family history of attenuated familial adenomatous polyposis. CHIEF COMPLAINT: Joy is seen today accompanying her sister, to discuss issues regarding genetic testing and familial polyposis. HISTORY OF PRESENT ILLNESS: Joy is a 69-year-old woman who is in generally good health. She is consulting today because of a recent diagnosis of rectal cancer in her sister. This was accompanied by multiple polyps throughout the colon. A more detailed family history shows that their sister has been evaluated in our familial cancer program for attenuated familial polyposis. Therefore, Joy is at 50% risk of having inherited a pathogenic mutation in the APC gene. Joy has had a couple of colonoscopies. One of them was negative and then one at age 67, showed 2 adenomatous polyps. 10 point RO Sotherwise negative. OBJECTIVE: She is not examined in detail. She appears healthy and appears her stated age. ASSESSMENT: Family history of attenuated familial adenomatous polyposis. She has had 2 polyps, whichcould represent either a mild manifestation of attenuated FAP, or could just be a random sporadic polyps. We discussed the details of the genetics of FAP and the possibility that this could represent either sporadic or inherited disease. She seemed to understand this. She was agreeable to having her blood drawn for genetic testing and this was done. Will follow up with results by telephone. If they are positive, we will bring her back to discuss the management issues in detail. Total visit total time for this visit 25 minutes. Electronically Signed by Steffen Severino MD 03/29/2010 16:15 Steffen Severino MD Hematology / Oncology Attending - Steffen Severino MD - [facility] Job ID: SM Doc ID: [id number] Ext Doc ID: [id number] cc: MS Fabiano Sin MD documented in this encounter Care Teams Bed And Breakfast Cook Relationship Specialty Start Date End Date Fabiano Aranda MD PCP - General 02/20/10 09/02/[address] [place] [address] [address] [place] [phone] documented as of this encounter
--- OUTSIDE RECORDS SUMMARY | 2021-11-06 01:28 | XMS_ITS | Encounter Summary ---
:1940 Author Organization [facility] Address [address] [place] [address] Care Team Providers Name Role Phone Nayan Hilton Primary Care Provider Reason for Visit Reason Comments Ultrasound Encounter Details Date Type Department Care Team Description 06/20/2017 Initial consult [facility] Shantelle Ureña Flu id in endometrial cavity (Primary Dx); Women's Services - MD Claudine Adnexal mass [facility] [id number] [place], [place] [address]ili, [place] [address] (Wo rk) Social History Tobacco [...] as of this encounter Discharge Diagnoses Diagnosis N85.9 Noninflammatory disorder of uterus , unspecified-N85.9[ICD-10-CM] N94.9 Unspecified condition associated w ith female genital organs and menstrual cycle-N94.9[ICD-10-CM] R19.09 Other intra-abdominal and pelvic swelling, mass and lump-R19.09[ICD-10-CM] documented in this encounter Discharge Disposition Disposition Code Departure Means Destination Auto Discharge documented in this encounter Progress Notes Shantelle Ureña MD - 06/20/2017 1000 EDT CC: F/u ultrasound for endometrial fluid and right adnexal mass S: Ms. Armstrong is a 76 y.o. postmenopausal female who I met about 18 months ago after findingsof an adnexal mass on CT after a recent hospitalization. She overall has been doing well, denies anyvaginal bleeding, lower abdominal pain/cramping bloating or other concerns. No other significant changes in her health history. O: Gen: Appears well, no acute distress Remainder of exam deferred U/S stable endometrial anechoic fluid with thin endometrial stripe and stable right adnexal mass that is most consistent with a hydrosalpinx. A/P: Ms. Armstrong is a 76 y.o. postmenopausal female here for follow-up ultrasound. 1. Fluid in endometrial cavity Discussed that the anechoic fluid is not concerning and likely reflects cervical stenosis given her postmenopausal status. Discussed that we are able to clearly visualize her endometrium and it is thinand homogenous, which is reassuring. Did review that she could potentially develop some cramping with uterine distention, however in the absence of symptoms, I would not recommend any intervention at this time. 2. Adnexal mass Reviewed the prior images with today and discussed that there has been no change in the size/shape/characteristics of the mass. It appears to be a hydrosalpinx consistent with her prior tubal ligation and has no features that are concerning for malignancy. We discussed that options for management include ongoing observation with annual surveillance via ultrasound versus surgical removal. Discussed that the stability of the lesion is very reassuring and it's appearance on ultrasound is most likely a hydrosalpinx, though the patient and her understand the limitations of imaging. She is not interested in pursuing additional treatment at this time as it is not causing her any symptoms or anxiety. She would prefer to avoid subsequent ultrasounds unless she develops symptoms and would prefer tojust go on with her life as is. She knows to call with any questions/concerns or development of symptoms. She is agreeable to this plan. Shantelle Ureña MD documented in this encounter Plan of Treatment Not on filedocumented as of this encounter Visit Diagnoses Diagnosis Fluid in endometrial cavity - Primary Other specified disorders of uterus, not elsewhere classified Adnexal mass Other specified symptom associated with female genital organs documented in this encounter Care Teams Rn Telemetry Relationship Specialty Start Date End Date Nayan Hilton DO PCP - General 06/17/17 04/01/20 documented as of this encounter
--- OUTSIDE RECORDS SUMMARY | 2021-11-06 01:28 | XMS_ITS | Encounter Summary ---
:1940 Author Organization [facility] Address [address] [place] [address] Care Team Providers Name Role Phone Jodi Camp MD Primary Care Provider Encounter Details Date Type Department Care Team Description 12/03/2015 Results Only [facility]- Erica Hendrix MD [phone] [address] [place] [address] (Wo rk) Social History Tobacco Use Types [...] Procedure Name Priority Date/Time Associated Comments Diagnosis RAD US PELVIS 12/23/2015 10:21 Results fo r this TRANSABDOMINAL AND EDT procedure are in TRANSVAGINAL the results section. documented in this encounter Results RAD US PELVIS TRANSABDOMINAL AND TRANSVAGINAL (12/23/2015 10:21 EDT) Anatomical Region Laterality Modality Other Specimen Narrative [facility] - 12/23/2015 14:14 EDT RAD US PELVIS TRANSABDOMINAL AND TRANSVAGINAL ??12/23/2015 10:21 AM Clinical History/Comments: adnexal mass, right. found on ct scan, 6 .1.16. Comparison: Outside CT abdomen dated September 03, 2015. Technique: Grayscale static images and limited Dopp ler ultrasound evaluation of the pelvis was performed using transabdo kamala and transvaginal technique. Findings: Technically difficult examination second marycruz to significant shadowing from adjacent structures. The uterus measures 9.8 x 4.1 x 5.9 cm i n size and is normal in echotexture. The hyperechoic endometrium measures up to 6 mm in double endometrial stripe thickness, and contains anechoic fluid within the endometrial cavity. The cervix appears normal. Within the region of the right adnexa, t here is partial visualization of a cystic structure, as noted on the prior CT examination. This is only partially imag ed given its location high in the pelvis and due to significant sha dowing from adjacent bowel gas, although it appears to be closely a ssociated with the right ovary or fallopian tube, and possibly th e uterus. Measurements of the lesion cannot be accurately reproduc ed given the technical limitations of the study. The left and right ovary are not confide ntly identified. There is no free fluid in the pelvis. Impression: 1. Technically limited examination secon preston to patient's body habitus and significant shadowing from o verlying bowel gas. The previously described cystic right adnexa l lesion is only partially visualized due to its high location with in the pelvis and significant shadowing. Consider pelvic M RI with intravenous contrast for further evaluation. 2. Fluid-filled endometrial canal, abnor mal given patient's age. Correlate with history of vaginal bleedi ng or discharge. I have personally reviewed the images an d the above interpretation and agree with the findings. Procedure Note Justyn Shelton MD - 12/23/2015 RAD US PELVIS TRANSABDOMINAL AND TRANSVA GINAL 12/23/2015 10:21 AM Clinical History/Comments: adnexal mass, right. found on ct scan, 6 ..16. Comparison: Outside CT abdomen dated September 03, 2015. Technique: Grayscale static images and limited Dopp ler ultrasound evaluation of the pelvis was performed using transabdo kamala and transvaginal technique. Findings: Technically difficult examination second marycruz to significant shadowing from adjacent structures. The uterus measures 9.8 x 4.1 x 5.9 cm i n size and is normal in echotexture. The hyperechoic endometrium measures up to 6 mm in double endometrial stripe thickness, and contains anechoic fluid within the endometrial cavity. The cervix appears normal. Within the region of the right adnexa, t here is partial visualization of a cystic structure, as noted on the prior CT examination. This is only partially imag ed given its location high in the pelvis and due to significant sha dowing from adjacent bowel gas, although it appears to be closely a ssociated with the right ovary or fallopian tube, and possibly th e uterus. Measurements of the lesion cannot be accurately reproduc ed given the technical limitations of the study. The left and right ovary are not confide ntly identified. There is no free fluid in the pelvis. Impression: 1. Technically limited examination secon preston to patient's body habitus and significant shadowing from o verlying bowel gas. The previously described cystic right adnexa l lesion is only partially visualized due to its high location with in the pelvis and significant shadowing. Consider pelvic M RI with intravenous contrast for further evaluation. 2. Fluid-filled endometrial canal, abnor mal given patient's age. Correlate with history of vaginal bleedi ng or discharge. I have personally reviewed the images an d the above interpretation and agree with the findings. Performing Organization Address City/State/ZIP Code Phon e Number [facility] documented in this encounter Visit Diagnoses Not on filedocumented in this encounter Care Teams Labourers Relationship Specialty Start Date End Date Jodi Camp MD PCP - General 09/03/15 12/22/[address] [address] documented as of this encounter
--- OUTSIDE RECORDS SUMMARY | 2021-11-06 01:28 | XMS_ITS | Encounter Summary ---
:1940 Author Organization [facility] Address [address] [place] [address] Care Team Providers Name Role Phone YobaniNayan Pedro HARRISON Primary Care Provider Manuel Isaacs MD Primary Care Provider Encounter Details Date Type Department Care Team Description 10/16/2019 Lab Requisition [facility] Dank Arciniega Ot her specified Pathology & MD disorders of bladder Laboratory Medicine [address] [place] [address] [address] [place], [place] [id number] [place] [id number] Social History Tobacco Use Types Packs/Day Years [...] Priority Date/Time Associated Diagnosis Comme nts NON REVENUE INTEGRITY ANALYST/FNA Today 10/16/2019 11:09 Results for this CYTOLOGY EDT procedure are i n the results section. documented in this encounter Results NON REVENUE INTEGRITY ANALYST/FNA CYTOLOGY (10/16/2019 11:09 EDT) Final Diagnosis URINE, BARBOTAGE, CYTOLOGIC EVALUATION: [facility] Electronically - Atypical urothelial cells. See comment. CENTER signed by FLOYD Luciano MD on SERVICES 10/17/2019 at 15 28 Attestation There was significant reside nt/fellow involvement in the diagnostic evaluation of this case. [facility] Electronically By the signature below, the attending physician certifies that they have personally conducted a gross and/or microscopic CENTER signed by Mustapha, examination of the described specimens and rendered or confirmed the above diagnosis. LABORATORY Alona Waggoner MD on SERVICES 10/17/2019 at 15 28 Diagnosis Comment Cytologic evaluation [facility] reveals several CENTER groups of atypical LABORATORY urothelial cells in a SERVICES background of reactive urothelial cells and acute inflammation. The atypical cells are hyperchromatic with increased nuclear to cytoplasmic ratios, irregular nuclear membranes and course chromatin, however, there is also degenerative changes. 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 Correlation with clinical findings advised. Clinical History N32.89 - Mass of [facility] urinary bladder. 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 [facility] SERVICES Resident/Fellow: Marcus Serrano DO [facility] SERVICES Scanned Images [facility] SERVICES Specimen [id number] - Urine specimen (specimen) Performing Organization Address City/State/ZIP Code Phon e Number [facility] [address] [place] [address] SERVICES documented in this encounter Visit Diagnoses Diagnosis Other specified disorders of bladder documented in this encounter Care Teams Regulatory Administrator Relationship Specialty Start Date End Date Nayan Hilton DO PCP - General 06/17/17 04/01/20 Manuel Isaacs MD PCP - General 04/02/[address] [place] [id number] documented as of this encounter
--- OUTSIDE RECORDS SUMMARY | 2021-11-06 01:28 | XMS_ITS | Encounter Summary ---
:1940 Author Organization [facility] Address [address] [place] [address] Care Team Providers Name Role Phone Dacia Hendrix MD Primary Care Provider [phone] Encounter Details Date Type Department Care Team Description 12/23/2015 Results Only [facility] PRISM MD Dacia [phone] [address] [place], [place] [id number] (Wo rk) Social History Tobacco Use Types [...] Engineer Relationship Specialty Start Date End Date Dacia Hendrix MD PCP - General 12/23/15 06/16/17 [address] [place] [address] documented as of this encounter
--- OUTSIDE RECORDS SUMMARY | 2021-11-06 01:28 | XMS_ITS | Encounter Summary ---
:[address] [facility] Address [address] [place] [address] Care Team Providers Name Role Phone Unavailable Primary Care Provider Unavailable Encounter Details Date Type Department Care Team Description 12/14/1999 Hospital Encounter [facility] - Ethel Castro MD [address] [place] [address] [address] [place] [address] Other Unknown, Provider, [address] [place] [address] Social History Tobacco Use Types Packs/Day Years Used Date Never Assessed Sex Assigned at Date Recorded Not on file documented as of this encounter Discharge Disposition Disposition Code Departure Means Destination Auto Discharge documented in this encounter Plan of Treatment Not on filedocumented as of this encounter Procedures Procedure Name Priority Date/Time Associated Diagnosis Comme nts CYTOPATHOLOGY Routine 12/14/1999 0:00 EDT Results for this procedure are i n the results section . documented in this encounter Results CYTOPATHOLOGY (12/14/1999 0:00 EDT) Pathology Report: CYTOPATHOLOGY REPORT [facility] Reports generated via electronic interface contain cristela ginal data; however they are lacking the format of the original re port. Caution should be taken when reading/interpreting unfo rmatted reports. Name: ? JOY CUNHA ? Accession #: ? [id number] : ? 1940 (Age: 59) ??F ?Collect Date: ? 12/03 Location: ? [facility] ? Receive Date : ? 12/16/1999 Provider: ?ETHEL CURRIE MD Copy to: ? Specimen/Source: ?ThinPrep Pap Test, Endocer vix Last Menstrual Period: ? Menstrual/ Status: ? Post Menopausal ? SPECIMEN ADEQUACY ? Satisfactory for eval uation but limited by an absence of a transformation zone component. GENERAL CATEGORIZATION ? Benign Cellular Changes DESCRIPTIVE DIAGNOSIS ? Predominance of coccobacilli present consistent with shift in vaginal nehemiah. ? Document reviewed and electronically signed by: ? NAYA Gonzalez(ASCP) ? Report Date: ??12/16/1999 13:27 End of Report Specimen Performing Organization Address City/State/ZIP Code Phon e Number [facility] [address] [place] [address] SERVICES [facility] [address] [place] [address] documented in this encounter Visit Diagnoses Not on filedocumented in this encounter
--- OUTSIDE RECORDS SUMMARY | 2021-11-06 01:28 | XMS_ITS | Encounter Summary ---
:1940 Author Organization [facility] Address [address] [place] [address] Care Team Providers Name Role Phone Fabiano Aranda MD Primary Care Provider Encounter Details Date Type Department Care Team Description 02/23/2010 Orders Only [facility] Lino Ashton [place] Family history of Hematology & Oncology [address] [facility] [place] [address] (Primary Dx) [address] [facility] [place] [address] [phone] Social History Tobacco Use Types Packs/Day Years Used Date Never Assessed Sex Assigned at Date Recorded Not on file documented as of this encounter Plan of Treatment Not on filedocumented as of this encounter Results FAP KNOWN MUTATION (02/23/2010 15:46 EST) Specimen Blood [facility] Specimen ID [id number] [facility] Order Date 24 Feb 2010 08:40 [facility] Reason For Referral [facility] Family history of familial a denomatous polyposis (FAP). Test ? LAB for the presence of a mutati on in the APC gene. ? Method [facility] DNA sequence analysis was us ed to test for the presence of ? LAB the c.426_427delAT mutation in exon 4 of the APC gene. ? Testing was performed for th is specific mutation because it ? was previously identified in an affected family member of ? this individual. ??Mutation nomenclature is based on GenBank ? accession number; [id number]. ? 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 ? LAB Interpretation [facility] Absence of the mutation prev iously identified for an ? LAB affected family member indic ates that this individual is NOT ? at increased risk for develo ping FAP. However, this ? individual's risk for colon cancer is equal to the general ? population risk and screenin g recommendations should be ? reviewed. ? This assay does not rule out the presence of other mutations ? within this gene or within o ther genes that are associated ? with colon cancer. ? A list of common polymorphis ms identified for this patient ? is available upon request. ? CAUTIONS: ? Test results should be inter preted in context of clinical ? findings, family history, an d other laboratory data. ? Misinterpretation of results may occur if the information ? provided is inaccurate or in complete. ? Rare polymorphisms exist gwen t could lead to false negative ? or positive results. ??If re sults obtained do not match the ? clinical findings, additiona l testing should be considered. ? Bone marrow transplants from allogenic donors will interfere ? with testing. Call [facility] for ? instructions for testing pat ients who have received a bone ? marrow transplant. ? This test was developed and its performance characteristics ? determined by Laboratory Med [facility]ine [facility] Pathology, [facility]. This test has not be en cleared or approved by the ? U.S. Food and Drug Administr ation. ? Reviewed By PANDA Silva MD ? LAB Release Date 09 Mar 2010 10:28 [facility] Performed or Referred by: [facility] Dpt of Lab Med and Path, [address] LAB ?? [place] [address], Lab Dir: Myles gandhi III, MD Specimen Blood specimen (specimen) Performing Organization Address City/State/ZIP Code Phon e Number [facility] [address] [place] [address] SERVICES [facility] [address] [place] [address] documented in this encounter Visit Diagnoses Diagnosis Family history of genetic disease - Prim marycruz Family history of other condition documented in this encounter Care Teams Senior Health Educator Relationship Specialty Start Date End Date Fabiano Aranda MD PCP - General 02/20/10 09/02/[address] [place] [address] [address] [place] [address] documented as of this encounter
--- OUTSIDE RECORDS SUMMARY | 2021-11-06 01:28 | XMS_ITS | Encounter Summary ---
:1940 Author Organization [facility] Address [address] [place] [address] Care Team Providers Name Role Phone Jodi Camp MD Primary Care Provider Reason for Referral Cardiology (Routine) - Closed Specialty Diagnoses / Procedures Referred By Contact Refer red To Contact Diagnoses Right ventricular dilation Contreras Preston MD Procedures ECHOCARDIOGRAM [address] [place] [address] Referral ID Status Reason Start Date Expiration Date Visits Requ ested Visits Authorized [id number] Closed 10/13/2015 1 1 Encounter Details Date Type Department Care Team Description 10/13/2015 Orders Only [facility] [place] Juhi Moncada, Right v entricular Cardiology - Amber KOENIG dilation (Primary Dx) [address] [place], [place] [address] Social History Tobacco Use Types Packs/Day Years [...] documented as of this encounter Progress Notes Juhi Moncada RN - 10/20/2015 1551 EDT See tele encounter, 10/19 for update. Juhi luna RN - 10/13/2015 1215 EDT Per cardiology consult note written by Dr. Preston when pt was hospitalized, follow up echo is recommended. I confirmed this verbally w/ Dr. Preston and ordered the test. I called pt's w/ update and they are expecting a call w/ scheduling information. If study is normal, no further f/u is recommended. If abnormal, Dr. Pretson would like to see pt in clinic. Pt's is aware of plan and agrees. documented in this encounter Plan of Treatment Not on filedocumented as of this encounter Procedures Procedure Name Priority Date/Time Associated Diagnosis Comme nts ECHOCARDIOGRAM Routine 10/22/2015 15:58 EDT Right ventricular Results for this dilation procedure are i n the results section. documented in this encounter Results ECHOCARDIOGRAM (10/22/2015 15:58 EDT) Specimen Narrative [facility] - 10/22/2015 16:47 EDT *Interpreting Group:* *[facility]* [address] [place] [address] Date of study: 10/22/2015 Transthoracic Echocardiography M-mode, complete 2D, complete spectral D oppler, and color Doppler *STUDY CONCLUSIONS* Summary: 1. Left ventricle: The cavity size was n ormal. Wall thickness was normal. ?? Systolic function was normal. The es timated ejection fraction was 55-60%. ?? Wall motion was normal; there were n o regional wall motion abnormalities. 2. Right ventricle: The cavity size was moderately dilated. Systolic function ?? was normal. *PATIENT PRESENTATION* Height: ? 160cm ((63in) ) S/D Pressure: 132 / 61 Weight: ? 88.9kg ((195.6lb) ) BSA: ?2.03m^2 Test start time: ??03:26 PM. Test stop time: ??04:11 PM. ADMITTING ?Contreras Preston ATTENDING ?Contreras Preston ORDERING ? Contreras Preston REFERRING ?Contreras Preston,r COMMUNICATIONS DEPARTMENT CHAIR ??Sophie Acharya PERFORMING ?? [facility], COMMUNICATIONS DEPARTMENT CHAIR ??Junior Renee *PROCEDURE DATA* Procedure information: ??This study was interpreted by [facility]. Pertinent imag es and digital data are archived for permanent storage and are available for subsequent review. ??Study status: Routine. Transthoracic echocardiography. ??M-mode, complete 2D, complete spectral Doppler, and color Doppler. A Transthora cic Echocardiogram was performed. Scanning was performed from the paraster nal, apical, subcostal, and suprasternal notch acoustic windows. Images were obta ined using a Jose De Jesus IE33 3 cardiac ultrasound machine. Image quality was ad equate. ??Study completion: ??The patient tolerated the procedure well. *INDICATIONS AND HISTORY* Indications: ?? Cardiomegaly (I51.7). Labs, prior tests, procedures, and surge ry: Transthoracic echocardiography (09/05/19). Transthoracic echocardiography (09/04/19). *CARDIAC ANATOMY* Left ventricle: ??The cavity size was no rmal. Wall thickness was normal. Systolic function was normal. The estimated eject ion fraction was 55-60%. Wall motion was normal; there were no regional wall jean-claude on abnormalities. Some parameters suggest diastolic dysfunction. Aortic valve: ?? Trileaflet; normal thic kness leaflets. Mobility was not restricted. ??Doppler: ??Transvalvular v elocity was within the normal range. There was no stenosis. There was no regurgitat ion. Aorta: ??Aortic root: The aortic root wa s normal in size. Mitral valve: ?? Structurally normal jules ve. ?? Mobility was not restricted. Doppler: ??Transvalvular velocity was wi thin the normal range. There was no evidence for stenosis. There was no regu rgitation. ?Peak gradient (D): 2.2mm Hg. Left atrium: ??The atrium was normal in size. Right ventricle: ??The cavity size was m oderately dilated. Systolic function was normal. Pulmonic valve: ?Structurally normal valve. ?Doppler: ??Transvalvular velocity was within the normal range. Th ere was no evidence for stenosis. There was no regurgitation. Tricuspid valve: ?? Structurally normal valve. ?Doppler: ??Transvalvular velocity was within the normal range. Th ere was no evidence for stenosis. There was mild regurgitation. Pulmonary artery: ?? Pulmonary systolic pressure was within the normal range, in the range of 20mm Hg to 25mm Hg. Right atrium: ??The atrium was normal in size. Pericardium: ??There was no pericardial effusion. Systemic veins: Inferior vena cava: The vessel was nasir l in size. Measurements Left ventricle ?Value ?Reference LV ID, ED, PLAX chordal ? (L) ? 4.2 ?? cm ? 4.3 - 5.2 LV ID, ES, PLAX chordal ? 2.7 ?? cm ? 2.3 - 3.8 LV fx shortening, PLAX chordal ?36 ?% ?>=29 LV PW thickness, ED ? 1.0 ?? cm ? IVS/LV PW ratio, ED ? 1.1 ?<=1.3 LV end-diastolic volume ? 79 ?ml ? LV end-systolic volume ?27 ?ml ? LV ejection fraction ?66 ?% ? LV ejection fraction, 1-p A2C ? 66 ?% ? LV end-systolic volume, 2-p ? 23 ?ml ? LV ejection fraction, 2-p ? 62 ?% ? LV e', lateral ?0.064 m/sec ?? LV E/e', lateral ?12 ? LV e', medial ? 0.049 m/sec ?? LV E/e', medial ? 15 ? LV e', average ?0.056 m/sec ?? LV E/e', average ?13 ? Ventricular septum ?Value ?Reference IVS thickness, ED ? 1.1 ?? cm ? Aorta ? Value ?Reference Aortic root ID ?2.9 ?? cm ? Ascending aorta ID, A-P ? 2.7 ?? cm ? Ascending aorta ID, A-P, S ?2.7 ?? cm ? Left atrium ? Value ?Reference LA ID, A-P, ES ?2.4 ?? cm ? LA ID/bsa, A-P ?1.2 ?? cm/m^2 <=2.2 LA ID, M-L, A4C ? (H) ? 5.9 ?? cm ? 2.9 - 4.9 LA area, ES, A4C ?14.1 ??cm^2 ?? 8.8 - 23.4 LA area, ES, A2C ?8 ? cm^2 ?? LA volume, S ?15 ?ml ? LA volume/bsa, S ?7 ? ml/m^2 LA volume, ES, 1-p A4C ?26 ?ml ? LA volume/bsa, ES, 1-p A4C ?13 ?ml/m^2 LA volume, ES, A/L ?26 ?ml ? LA volume/bsa, ES, A/L ?13 ?ml/m^2 LA/aortic root ratio ?0.83 ? Mitral valve ?Value ?Reference Mitral E-wave peak velocity ? 0.74 ??m/sec ?? Mitral A-wave peak velocity ? 1.31 ??m/sec ?? Mitral deceleration time ?229 ?? ms ? 150 - 230 Mitral peak gradient, D ? 2.2 ?? mm Hg ?? Mitral E/A ratio, peak ?0.6 ? Tricuspid valve ? Value ?Reference Tricuspid maximal inflow velocity, PISA ? 2.3 ?? m/sec ?? Legend: (L) ??and ??(H) ??destiny values outside sp ecified reference range. I have personally reviewed the images an d have reviewed and edited the reported findings. Electronically signed by Joe Zambrano MD 10/22/2015 16:47 Procedure Note Joe Zambrano MD - 10/22/2015 *Interpreting Group:* *[facility]* [address] [place] [address] Date of study: 10/22/2015 Transthoracic Echocardiography M-mode, complete 2D, complete spectral D oppler, and color Doppler *STUDY CONCLUSIONS* Summary: 1. Left ventricle: The cavity size was n ormal. Wall thickness was normal. Systolic function was normal. The estim ated ejection fraction was 55-60%. Wall motion was normal; there were no r egional wall motion abnormalities. 2. Right ventricle: The cavity size was moderately dilated. Systolic function was normal. *PATIENT PRESENTATION* Height: 160cm ((63in) ) S/D Pressure: 132 / 61 Weight: 88.9kg ((195.6lb) ) BSA: 2.03m^2 Test start time: 03:26 PM. Test stop time: 04:11 PM. ADMITTING Contreras Preston ATTENDING Contreras Preston ORDERING Contreras Preston REFERRING Contreras Preston r COMMUNICATIONS DEPARTMENT CHAIR Sophie Acharya PERFORMING [facility], Op COMMUNICATIONS DEPARTMENT CHAIR Junior Renee *PROCEDURE DATA* Procedure information: This study was in terpreted by [facility]. Pertinent imag es and digital data are archived for permanent storage and are available for subsequent review. Study status: Routine. Transthoracic echocardiography. M-mode, complete 2D, complete spectral Doppler, and color Doppler. A Transthora cic Echocardiogram was performed. Scanning was performed from the paraster nal, apical, subcostal, and suprasternal notch acoustic windows. Images were obta ined using a Jose De Jesus IE33 3 cardiac ultrasound machine. Image quality was ad equate. Study completion: The patient tolerated the procedure well. *INDICATIONS AND HISTORY* Indications: Cardiomegaly (I51.7). Labs, prior tests, procedures, and surge ry: Transthoracic echocardiography (09/05/19). Transthoracic echocardiography (09/04/19). *CARDIAC ANATOMY* Left ventricle: The cavity size was norm al. Wall thickness was normal. Systolic function was normal. The estimated eject ion fraction was 55-60%. Wall motion was normal; there were no regional wall jean-claude on abnormalities. Some parameters suggest diastolic dysfunction. Aortic valve: Trileaflet; normal thickne ss leaflets. Mobility was not restricted. Doppler: Transvalvular veloc ity was within the normal range. There was no stenosis. There was no regurgitat ion. Aorta: Aortic root: The aortic root was normal in size. Mitral valve: Structurally normal valve. Mobility was not restricted. Doppler: Transvalvular velocity was with in the normal range. There was no evidence for stenosis. There was no regu rgitation. Peak gradient (D): 2.2mm Hg. Left atrium: The atrium was normal in si ze. Right ventricle: The cavity size was mod erately dilated. Systolic function was normal. Pulmonic valve: Structurally normal valv e. Doppler: Transvalvular velocity was within the normal range. Th ere was no evidence for stenosis. There was no regurgitation. Tricuspid valve: Structurally normal jules ve. Doppler: Transvalvular velocity was within the normal range. Th ere was no evidence for stenosis. There was mild regurgitation. Pulmonary artery: Pulmonary systolic pre ssure was within the normal range, in the range of 20mm Hg to 25mm Hg. Right atrium: The atrium was normal in s ize. Pericardium: There was no pericardial ef fusion. Systemic veins: Inferior vena cava: The vessel was nasir l in size. Measurements Left ventricle Value Reference LV ID, ED, PLAX chordal (L) 4.2 cm 4.3 - 5.2 LV ID, ES, PLAX chordal 2.7 cm 2.3 - 3. 8 LV fx shortening, PLAX chordal 36 % >=2 9 LV PW thickness, ED 1.0 cm IVS/LV PW ratio, ED 1.1 <=1.3 LV end-diastolic volume 79 ml --------- - LV end-systolic volume 27 ml LV ejection fraction 66 % LV ejection fraction, 1-p A2C 66 % ---- ------ LV end-systolic volume, 2-p 23 ml ----- ----- LV ejection fraction, 2-p 62 % -------- -- LV e', lateral 0.064 m/sec LV E/e', lateral 12 LV e', medial 0.049 m/sec LV E/e', medial 15 LV e', average 0.056 m/sec LV E/e', average 13 Ventricular septum Value Reference IVS thickness, ED 1.1 cm Aorta Value Reference Aortic root ID 2.9 cm Ascending aorta ID, A-P 2.7 cm -------- -- Ascending aorta ID, A-P, S 2.7 cm ----- ----- Left atrium Value Reference LA ID, A-P, ES 2.4 cm LA ID/bsa, A-P 1.2 cm/m^2 <=2.2 LA ID, M-L, A4C (H) 5.9 cm 2.9 - 4.9 LA area, ES, A4C 14.1 cm^2 8.8 - 23.4 LA area, ES, A2C 8 cm^2 LA volume, S 15 ml LA volume/bsa, S 7 ml/m^2 LA volume, ES, 1-p A4C 26 ml LA volume/bsa, ES, 1-p A4C 13 ml/m^2 -- -------- LA volume, ES, A/L 26 ml LA volume/bsa, ES, A/L 13 ml/m^2 ------ ---- LA/aortic root ratio 0.83 Mitral valve Value Reference Mitral E-wave peak velocity 0.74 m/sec Mitral A-wave peak velocity 1.31 m/sec Mitral deceleration time 229 ms 150 - 2 30 Mitral peak gradient, D 2.2 mm Hg ----- ----- Mitral E/A ratio, peak 0.6 Tricuspid valve Value Reference Tricuspid maximal inflow velocity, PISA 2.3 m/sec Legend: (L) and (H) destiny values outside specifie d reference range. I have personally reviewed the images an d have reviewed and edited the reported findings. 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
--- OUTSIDE RECORDS SUMMARY | 2021-11-06 01:28 | XMS_ITS | Encounter Summary ---
:1940 Author Organization [facility] Address [address] [place] [address] Care Team Providers Name Role Phone Unavailable Primary Care Provider Unavailable Encounter Details Date Type Department Care Team Description 05/08/2004 Results Only [facility] - Kristen flowers, Provider, conversion [address] [facility] [place], [place] [phone] Social History Tobacco Use Types Packs/Day Years Used Date Never Assessed Sex Assigned at Date Recorded Not on file documented as of this encounter Plan of Treatment Not on filedocumented as of this encounter Procedures Procedure Name Priority Date/Time Associated Diagnosis Comme nts VITAMIN B12 Routine 05/08/2004 8:08 EST Results for this procedure are i n the results section . documented in this encounter Results VITAMIN B12 (05/08/2004 8:08 EST) Pathologist Sig nature Vitamin B-12 293 250 - 1100 pg/ml [facility] Specimen Performing Organization Address City/State/ZIP Code Phon e Number [facility] [address] [place] [address] SERVICES [facility] [address] [place] [address] documented in this encounter Visit Diagnoses Not on filedocumented in this encounter
--- OUTSIDE RECORDS SUMMARY | 2021-11-06 01:28 | XMS_ITS | Encounter Summary ---
:1940 Author Organization [facility] Address [address] [place] [address] Care Team Providers Name Role Phone Jodi Camp MD Primary Care Provider Reason for Referral Referral (3 - 10 Business Days) - Closed Specialty Diagnoses / Procedures Referred By Contact Refer red To Contact Cardiology Diagnoses Elevated troponin Sepsis, due to unspecified organism Bianka Schmitt NP [facility] [address] [facility] [address] [place], [place] [id number] [place], [place] [address]ili, [address] [place] [phone] Referral ID Status Reason Start Date Expiration Date Visits V isits Requested Authorized [id number] Closed Specialty 09/25/2015 1 1 Services Required Question Answer Reason for Request: Repeat echo recommended by adrian frazier cardiology Scheduling Comments (optional ? 1-2 weeks describe specific scheduling needs if applicable): Expected Discharge Date (Inpatient Only): 09/07/2015 ollow Up (Routine) - Closed Specialty Diagnoses / Procedures Referred By Contact Refer red To Contact Trauma Surgery Diagnoses Sepsis, due to unspecified organism Intra-abdominal infection Nina Power Ep5 Trauma/Crit Care MD Ceasar [address] [place] [address] [place] [address] Phone: Fax: Referral ID Status Reason Start Date Expiration Date Visits V isits Requested Authorized [id number] Closed Specialty 09/07/2015 1 1 Services Required Question Answer Reason for Request: f/dodd perforated appendicitis Scheduling Comments (optional ? 2 weeks describe specific scheduling needs if applicable): Expected Discharge Date (Inpatient Only): 09/07/2015 Reason for Visit Reason Comments Fever See tcall. Abd mass on CT Encounter Details Date Type Department Care Team Description 09/03/2015 - [facility] Ken Leggett MD 111 [facility], [facility] [address] [place] [phone] Sepsis, due to unspecified organism ([facility]) (Primary Dx); 09/07/2015 Encounter General Surgery Neida Fisher MD 111 [facility], [address] [place] [phone] Intra-abdominal infection; Unit Elevated troponin [address], [place] [id number] Social History Tobacco Use Types Packs/Day Years Used Date Never Smoker Alcohol Use Standard Drinks/Week Comments Not Asked 0 (1 standard drink = 0.6 oz pure alcoho l) Sex Assigned at Date Recorded Not on file documented as of this encounter Last Filed Vital Signs Vital Sign Reading Time Taken Comments Blood Pressure 111/58 09/07/2015 1042 EDT Pulse - - Temperature 36.2 ??C (97.2 ??F) 09/07/2015 1042 EDT Respiratory Rate 18 09/07/2015 1042 EDT Oxygen Saturation 92% 09/07/2015 1042 EDT Inhaled Oxygen Concentration - - Weight 91.6 kg (202 lb) 09/03/2015 1217 EDT Height 160 cm (5' 3) 09/04/2015 2100 EDT Body Mass Index 35.78 09/03/2015 1217 EDT documented in this encounter Functional Status [...] or older) documented as of this encounter Discharge Diagnoses Diagnosis A41.9 Sepsis, unspecified-A41.9[ICD-10-C M] R65.21 Severe sepsis with septic shock-R 65.21[ICD-10-CM] N17.9 Acute kidney failure, unspecified- N17.9[ICD-10-CM] E87.2 ACIDOSIS[ICD-10-CM] K35.3 Acute appendicitis with localized peritonitis-K35.3[ICD-10-CM] I24.8 Other forms of acute ischemic hear t disease-I24.8[ICD-10-CM] E03.9 Hypothyroidism, unspecified-E03.9[ ICD-10-CM] K80.20 Calculus of gallbladder without c holecystitis without obstruction-K80.20[ICD-10-CM] N83.8 Other noninflammatory disorders of ovary, fallopian tube and broad ligament-N83.8[ICD-10-CM] E87.6 HYPOKALEMIA[ICD-10-CM] E78.2 Mixed hyperlipidemia-E78.2[ICD-10- CM] documented in this encounter Discharge Summaries Bianka Schmitt APRN - 09/03/2015 1308 EDT Surgery Discharge Summary Primary Care Provider: Jodi Camp Attending Physician: Neida Fisher Admit Date: 09/03/2015 Discharge Date: 09/07/15 Disposition: Home or self care Problems and Procedures Admitting Diagnosis: Septic shock from intraabdominal process appendicitis vs cholecystitis Principal/Final Diagnosis: Sepsis; Perforated appendicitis Additional Problems Managed in the Hospital Active Hospital Problems Diagnosis Date Noted ??? *Intra-abdominal infection 09/03/2015 ??? Sepsis 09/03/2015 Resolved Hospital Problems Diagnosis Date Noted Date Resolved No resolved problems to display. Principal Procedure: None Hospital Course Joy Cunha is a 74 female with history of HLD, hypothyroidism, and ?heart failure per chart review who was transferred to [facility] from in from an OSH on 09/03/15 in septic shock with lactic acidosis. Outside CT imaging showed fat stranding in RLQ concerning for perforated appendicitis (unable to visualize appendix), imaging also concerning for acute cholecystitis. She arrived on dopamine running peripherally with SBP in the 120s, mentating well. She was admitted to the SICU, where a central line was placed. She was aggressively fluid resuscitated, started on IV Zoysn and was transitioned to levophedfrom dopamine. Cardiology was consulted for elevated troponin, deemed likely due to demand ischemia in the setting of septic shock requiring pressor support. Cardiac work-up included TTE which showed RV dilatation and conern for possible ASD. Repeat Echo with bubble test was performed, which showed improvement in RV dilatation and no evidence of ASD. Over the next few days, she significantly clinically improved with resolution of septic shock and need for pressor support. She was transferred to the floor for continued antibiosis and monitoring. She continued to improve, diet was advanced as tolerated and she was transitioned to PO antibiotics. She remained afebrile with down-trending leukocytosis and bengin abdominal exam on oral Augmentin and was discharged home in stable condition on 09/07/15 with plan for post-operative follow-up and repeat Echo with cardiology in 2 weeks. Allergies and Immunizations No Known Allergies There is no immunization history on file for this patient. Transition of Care Plans Condition at Discharge Improved or Stable Assessment at Discharge 74 y.o. female who was admitted for Intra-abdominal infection on 09/03/2015.?? She is s/p treatment for presumed perforated appendicitis.?? WBC count normal, abdomen benign.?? Ready for discharge when oxygen weaned. Discharge Medications: START taking these medications Sig acetaminophen 325 mg tablet Commonly known as: TYLENOL 650 mg, oral, EVERY 4 HOURS PRN aspirin chewable 81 mg tablet 81 mg, oral, DAILY docusate sodium 100 mg capsule Commonly known as: COLACE 100 mg, oral, 2 TIMES DAILY PRN PEG 3350-Electrolytes 17 gram packet Commonly known as: MIRALAX 17 g, oral, 2 TIMES DAILY PRN CONTINUE taking these medications Sig levothyroxine 112 mcg tablet Commonly known as: SYNTHROID 112 mcg, oral, DAILY oxybutynin 5 mg tablet Commonly known as: DITROPAN 5 mg, oral, DAILY simvastatin 40 mg tablet Commonly known as: ZOCOR 40 mg, oral, EVERY EVENING Results Pending at Discharge Test results still pending from this admission None Relevant Studies at Discharge Echocardiogram 09/05/15: Summary: ? 1. Left ventricle: The cavity size was normal. Systolic function was normal. The ? estimated ejection fraction was 60-65%. ?? 2. Right ventricle: The cavity size was mildly to moderately dilated. Systolic ? function was normal. ?? 3. Atrial septum: Echo contrast study showed no gotws-kh-fdek atrial level ? shunt, at baseline or with provocation. ?? 4. Pulmonary arteries: Pulmonary systolic pressure was mildly increased, in the ? range of 35mm Hg to 40mm Hg. CTAP (Performed at OSH on 09/03/15): Secondary Read: 1. Extensive inflammation in the region of the cecum without definitive identification of the appendix. In addition, no definitive evidence of appendiceal rupture is present (fluid collections or free air). Given this the findings are nonspecific. 2. Wall thickening of the gallbladder and cholelithiasis, though the gallbladder is nondistended. These findings are nonspecific. The mild degree of abnormality suggests this is secondary to, opposed to the cause of, the patient's clinical condition. 3. Complex cystic structure associated with the right adnexa or fallopian tube. This may represent a complex cystic adnexal mass or hydrosalpinx. Evaluation with ultrasound when patient's condition improves is recommended. 4. Aortoiliac atherosclerosis 5. Moderate hiatal hernia Last Lab Results at Discharge CBC: Lab Results Component Value Date WBC 9.90 09/07/2015 RBC 3.81* 09/07/2015 HGB 11.2* 09/07/2015 HCT 34.3* 09/07/2015 MCV 90 09/07/2015 MCH 29.4 09/07/2015 MCHC 32.7 09/07/2015 PLT 130* 09/07/2015 DIFFTYPE Manual 09/07/2015 Discharge Follow Up Appointments and Procedures Recommended to Patient Follow-up appointments and procedures Amb Consult/Follow Up Cardiology Reason for Request: Repeat echo recommended by inpatient cardiology Scheduling Time Frame: 1-2 weeks Expected Discharge Date (Inpatient Only): 09/07/2015 Authorizing Provider: Bianka Schmitt APRN Amb Consult/Follow Up General Surgery Reason for Request: f/dodd perforated appendicitis Scheduling Time Frame: 2 weeks Expected Discharge Date (Inpatient Only): 09/07/2015 Authorizing Provider: Nina Power MD Maria Cochrane, APRN 09/25/2015 11:07 documented in this encounter Discharge Instructions Discharge Instr - Other OrdersNina Power MD - 09/07/2015 13:15 EDT Discharge instructions: Diet: OK to eat a regular diet Medications: Take all meds as prescribed Resume all your home meds. Take two more days of the antibiotics to make 7 days total of IV and PO antibiotics. Take your antibiotic pills until they are all gone even if you feel well. It's a good idea to take a probiotic whiletaking antibiotics. Non-narcotic pain relief: May take tylenol 500 mg every 6 hrs as needed for pain May take ibuprofen 600-800 mg every 8 hrs as needed for pain (Ibuprofen may cause reflux symptoms, if this happens please stop taking) Activity restrictions: No driving while taking narcotic pain meds. May return to normal activity as able. May return to work as able. Bathing: No restriction Please call if: Nausea Vomiting Fever Chills Pain not relieved by meds. Chest pain Shortness of breath. Follow up: Follow up in 1-2 weeks. Call the clinic to schedule your appointment Clinic Numbers: General Surgery Clinic documented in this encounter Medications at Time of Discharge Medication Sig Dispensed Refills Start Date End Date aspirin chewable 81 mg Take 1 Tab by mouth 0 08/2015 tablet daily. levothyroxine (SYNTHROID) Take 112 mcg by 0 112 mcg tablet mouth daily. oxybutynin (DITROPAN) 5 mg Take 5 mg by mouth 0 tablet daily. acetaminophen (TYLENOL) Take 2 Tabs by 0 06/05/20 16 12/23/2015 325 mg tablet mouth every 4 hours as needed for Pain. amoxicillin-clavulanate Take 1 Tab by mouth 4 Tab 0 08/201509/09/2015 (AUGMENTIN) 875-125 mg per every 12 hours for tablet 2 days. docusate sodium (COLACE) Take 1 Cap by mouth 0 12/23/2015 100 mg capsule 2 times daily as needed for Constipation. PEG 3350-Electrolytes Take 17 g by mouth 0 201512/23/2015 (MIRALAX) 17 gram packet 2 times daily as needed for Other (constipation). simvastatin (ZOCOR) 40 mg Take 40 mg by mouth 0 12/23/2015 tablet every evening. documented as of this encounter Ordered Prescriptions Prescription Sig Dispensed Refills Start Date End Date aspirin chewable 81 mg Take 1 Tab by mouth 0 08/2015 tablet daily. PEG 3350-Electrolytes Take 17 g by mouth 0 201512/23/2015 (MIRALAX) 17 gram packet 2 times daily as needed for Other (constipation). docusate sodium (COLACE) Take 1 Cap by mouth 0 12/23/2015 100 mg capsule 2 times daily as needed for Constipation. amoxicillin-clavulanate Take 1 Tab by mouth 4 Tab 0 08/201509/09/2015 (AUGMENTIN) 875-125 mg per every 12 hours for tablet 2 days. acetaminophen (TYLENOL) Take 2 Tabs by 0 09/07/19 16 12/23/2015 325 mg tablet mouth every 4 hours as needed for Pain. documented in this encounter Discharge Disposition Disposition Code Departure Means Destination Home or Self Care documented in this encounter Progress Notes Soumya Calle - 09/07/2015 1447 EDT ZHANE DC Note Pt discharged home to self care Hui Calle RN CM [id number] Mary Mckenzie RN - 09/07/2015 1350 EDT Nursing Discharge Note D: Patient noted with discharge orders to: Home. A: Prescriptions provided to patient. Reviewed discharge instructions and prescriptions with Patient IV d/c'd. Belongings collected and sent home with patient. R: Patient verbalized understanding of discharge instructions and denied further questions. Mary Ren RN 09/07/2015 13:50 hKimberli carlos MD - 09/07/2015 0850 EDT Acute Care Surgery Progress Note Service Date: 09/07/2015 Admit Date: 09/03/2015 12:58 ( LOS: 2 days ) HD: 4 (09/03/2015) Chief Complaint: abdominal pain, sepsis 24 Hour Events: no acute events Subjective/Objective Subjective no abdominal pain, no nausea/ vomiting. Passing flatus/ having BMs. Ambulating. Ready to go home. Objective Vital Signs BP 124/64 mmHg Temp(Src) 36.6 ??C (97.9 ??F) (Tympanic) Resp 20 Ht 160 cm (63) Wt 91.627 kg(202 lb) SpO2 90% Physical Exam Awake, alert, NAD CTA-B Abdomen soft, NT, ND Medications Reviewed: No changes Labs Reviewed: Results notable for normal WBC. Assessment/Plan Assessment 74 y.o. female who was admitted for Intra-abdominal infection on 09/03/2015. She is s/p treatment for presumed perforated appendicitis. WBC count normal, abdomen benign. Ready for d/c when off oxygen. Plan Principal Problem: Intra-abdominal infection Active Problems: Sepsis Wean oxygen PO pain meds PO antibiotics Possible d/c home today VTE Prophylaxis Pharmacologic Prophylaxis: Enoxaparin (Lovenox) 40 mg SQ daily Is PICC or Central line present? No, PICC/Central line not present. Discharge Plan Home or self care Kimberli Glasgow MD 09/07/2015 8:50 Associated attestation - Jessica Darby MD - 09/07/2015 3553 EDT Attending attestation statement: I saw and examined the patient and agree with the findings and plans as documented. Making appropriate recovery from perforated appendicitis and sepsis. Tolerating PO. Continue antibiotic therapy (total 7 days IV + PO). Likely discharge to home today. Lo??c MD [facility] Acute Care Surgery Pager #[phone], Dalia Coleman MD - 09/06/2015 4260 EDT Acute Care Surgery Note Admit Date: 09/03/2015 LOS: 1 day CC: Intra-abdominal infection Subjective: 24hr events: Transitioned to PO Abx Regular diet Jade removed - voiding Transferred to floor Subjective: Feeling well this AM. Tolerating regular diet. Denies N/VF/C/CP/SOB. She is having small amounts of flatus, no BM. Medications: amoxicillin-clavulanate 1 Tab oral Q12H aspirin chewable 81 mg oral DAILY enoxaparin 40 mg subcutaneous DAILY levothyroxine 112 mcg oral DAILY oxybutynin 5 mg oral DAILY simvastatin 40 mg oral QPM Objective: Blood pressure 106/57, temperature 36.7 ??C (98.1 ??F), temperature source Tympanic, resp. rate 16, height 160 cm (63), weight 91.627 kg (202 lb), SpO2 93 %. Temp: [36.7 ??C (98.1 ??F)-37.3 ??C (99.1 ??F)] , Pulse: --, Resp: [16] , BP: (103-121)/(56-64) , SpO2: [90 %-93 %] I/O: Current Shift: 24 hours: 09/04 1500 - 09/05 1459 In: 1320 [P.O.:1320] Out: 1200 [Urine:1200] Labs: WBC/Hgb/Hct/Plts: 12.99/11.0/33.8/110 (09/05 705) Na/K/Cl/CO2: 140/4.0/103/26 (09/05 705) BUN/Cr/glu/ALT/AST/amyl/lip: 12/0.63/--/49/44/--/-- (09/05 705) Micro: none Gen:? Alert, oriented, confortable Resp: CTAB CV:? RRR, no m/r/g Abd:? minimally distended. Soft. Non-tender Ext:? Trace edema, WWP Assessment: Patient: 74 y.o. Female presenting with septic shock concerning for perforated appendicitis on CT. Afebrile with improved abdominal pain and exam. Demand ischemia stable. Principal Problem: Intra-abdominal infection Active Problems: Sepsis Plan: Neuro: Pain control PRN CV: No evidence of ASD on bubble study. Repeat Echo in 2 weeks per Cardiology. Daily ASA, simvastatin Pulm: pulmonary toilet GI: Regular diet Renal: Trend BUN/Cr, watch UOP. Heme: Daily CBC.?? ID: Trend WBC and fever curve.?? Abx: Augmentin. Endo: home levothyroixine FEN: HLIV.?? Replete lytes prn. Musculoskeletal: HOB elevated/Supine. AAT. Plan for discharge home tomorrow if continues to be pain free and WBC stable or downtrending. Dalia Delacruz MD 09/06/2015 15:24 Associated attestation - Jessica Darby MD - 09/06/2015 5605 EDT Attending attestation statement: I saw and examined the patient and agree with the findings and plans as documented. Making excellent clinical improvement. Afebrile, WBC downtrending. Abdominal exam is benign. Continue Augmentin to complete 7 days total antibiotic therapy. If continues to do well and remains afebrile, will likely be appropriate for discharge to home tomorrow. Lo??c MD [facility] Acute Care Surgery Pager #[phone] Center[facility] MD - 09/05/2015 2950 EDT Echo without evidence of VSD. RV appearing slightly smaller than last echo with PAP also slightly less. No evidence of ASD. Her RV dilation may be associated with her presentation of sepsis with aggressive volume resuscitation. Plan to repeat echo as an outpatient in about 2 weeks post discharge. No need for further cardiacworkup at this juncture. Please call cardiology with further questions. Contreras Preston MD Nithin Sow MD - 09/05/2015 1248 EDT Acute Care Surgery Note Admit Date: 09/03/2015 CC: Intra-abdominal infection Joy Cunha is a 74 y.o. Female Subjective: 24hr events: Off pressors since 6 am yesterday Izaiah clears Abd pain improved Medications: aspirin chewable 81 mg oral DAILY enoxaparin 40 mg subcutaneous DAILY levothyroxine (SYNTHROID) IV syringe 50 mcg intravenous DAILY piperacillin-tazobactam 4.5 g intravenous Q8H potassium, sodium phosphates 1 Packet oral BID Objective: Blood pressure 117/66, temperature 36.9 ??C (98.4 ??F), temperature source Axillary, resp. rate 21, height 160 cm (63), weight 91.627 kg (202 lb), SpO2 94 %. Temp: [36.7 ??C (98.1 ??F)-37 ??C (98.6 ??F)] , Pulse: --, Resp: [13-30] , BP: (83-127)/(55-77) , SpO2: [81 %-97 %] I/O: Current Shift: 09/04 0700 - 09/04 1459 In: 400 [P.O.:200] Out: 515 [Urine:515] 24 hours: 09/03 0700 - 09/04 0659 In: 921.7 [P.O.:200; I.V.:521.7] Out: 4665 [Urine:4665] Tubes/Lines/Infusions: PIV/ plasmalyte Vent: on nc ABG: Labs: WBC/Hgb/Hct/Plts: 17.81/10.2/31.1/96 (09/04 305) Na/K/Cl/CO2: 142/3.3/105/26 (09/04 305) BUN/Cr/glu/ALT/AST/amyl/lip: 15/0.79/--/54/52/--/-- (09/04 305) Micro: none Gen:? Alert, oriented, confortable Resp: nonlabored respirations CV:? RRR, no m/r/g Abd:? minimally distended. Soft. Minimally tender in the RLQ without peritonitis :? Jade in place with clear urine Ext:? Trace edema, WWP Assessment: Patient: 74 y.o. Female presenting with septic shock concerning for perforated appendicitis on CT. Off pressor therapy for > 24 hrs. Passing gas and moving bowels. Afebrile with improved abdominal pain and exam. Demand ischemia stable; echo concerning for possible ASD, bubble study pending. Stable for transfer to floor today. Principal Problem: Intra-abdominal infection Active Problems: Sepsis Plan: Neuro: Pain control PRN CV: Awaiting Echo bubble study. ASA. Pulm: pulmonary toilet GI: Regular diet Renal: Trend BUN/Cr, watch UOP. Heme: Daily CBC.?? ID: Trend WBC and fever curve.?? Abx: Zosyn. Will likely need interval appendectomy. Endo: restart levothyroixine at lower dose FEN: HLIV.?? Replete lytes prn. Musculoskeletal: HOB elevated/Supine. AAT. Discontinue jade, CVC. Obtain PIV. Nithin Lerner MD 09/05/2015 12:48 Associated attestation - Jessica Darby MD - 09/05/2015 5248 EDT Attending attestation statement: I saw and examined the patient and agree with the findings and plans as documented. Significantly clinically improved with resolution of septic shock. Abdomen is soft, ND, NTTP. Continue Zosyn for intra-abdominal infection. Remove Jade and CVC. ADAT, resume outpatient medications. Appropriate for transfer to smart. Lo??c MD [facility] Acute Care Surgery Pager #[phone] Johnson RN - 09/05/2015 6943 EDT 0745: Assumed care of pt. Pt A and O x 3. Dr. Lerner at bedside to assess pt. Plan to transfer pt. MD aware of LS and labs. Awaiting orders. 1114: Dr. Darby and team at bedside. Plan to d/c jade and central line. 1129: Repeat ECHO in progress. 1435: Report given to Lemuel KOENIG on [facility]. 1458: Pt to [facility] 6 via bed. at bedside. Pt A and O x 3. Pt transferred to [facility] with transport. Tiffanie swan CSW - 09/04/2015 1332 EDT Initial Case Management/Social Work Assessment and Discharge Plan/Readmission Risk Assessment Reason for Admission: 74 y.o. Female presenting with septic shock concerning for perforated appendicitis on CT PMH of HLD, hypothyroid, ? Heart failure. Patient Contact Information: Romero - contact information on face sheet. LIVING ARRANGEMENTS AND ACCESSIBILITY ISSUES: Lives in a single level, single family home w/ her What in home social supports are available to the patient? is available 25/10 ADVANCED DIRECTIVES, POA &/or COLST IN PLACE: No CULTURAL, SAMARITAN and/or LANGUAGE factors affecting health care/discharge planning: N/A Insurance in Place: Yes Type of Insurance: Medicare MEDICARE TYPE: A, B DISCHARGE RISK ASSESSMENT: None of the above risks identified Total # selected above: Score: Zero Tentative plan to address the risk of re-hospitalization for those at HIGH MODERATE RISK: FUNCTIONAL & PSYCHOSOCIAL INFORMATION: Patient is independent w/ ADLs/IADLs and is psychosocially stable. She reports very good support at home from her and three adult children who come running when I need them. MEDICAL AND COMMUNITY SERVICES: Primary Care Provider: Jodi Camp Specialists: None Skilled home care services: None DME Provider: None Pharmacy: [facility] Other: will drive home POST HOSPITAL TRANSITION PLAN: Anticipated DC home, needs TBD pending clinical course. Patient will eventually needs appendectomy but will need to wait 4-6 weeks until infection clears. HARPAL AVILEZ 09/04/2015 13:32 Contreras Knox MD - 09/04/2015 1238 EDT Patient seen and evaluated with Dr. Payton today. Her troponin is likely reflective of her severe illness. She has neither CP or EKG changes to suggest acute coronary syndrome. At this juncture, would stop checking troponins, no further ischemic evaluation needed. Her echo demonstrates normal LV function but moderate RV dilation with mildly increased PA pressures. High on the differential is atrial septal defect but also may be due to ELVER or HFpEF given the TR jet was velocity was not clearly established on echo. -Order limited echo with bubble study to assess for ASD Contreras Preston MD Jamie grossman, RN - 09/04/2015 0839 EDT 835 Cardiology at bedside indicates Pt will have echo today 1020 echo at bedside 1050 md Caceres rounding with SICU indicates 20mg iv lasix and adv to clears 1130 Pt son at bedside requesting copy of any labwork done discussed that Pt would need to make written request for this info 1155 md Vail aware Pt jules not picking up wave form have flushed and tried repositioning arm several times cuff pressure sbp > 100 and map >60 md indicates dc jules 1420 Pain and Stopak at bedside indicates will have echo bubble study and cvc stay in place untiltomorrow ( off vasopressors for 24hrs), Kofi Elena MD - 09/04/2015 0648 EDT ICU Note Admit Date: 09/03/2015 CC: Intra-abdominal infection Joy Cunha is a 74 y.o. Female Subjective: 24hr events: 1.5 L bolus Increasing trop, now downtrending --> cards consult --> echo today Resolved lactic acidosis iv levothryroxine given A line and Central line placed Transitioned from dopamine to levophed, now stopped since 6 AM Calcium repleted BM x1 overnight Patient: Denies pain, mostly pressure in abd. Feels otherwise fine. Noted chronic back pain. Denies f/c/SOB/CP/n/v Medications: enoxaparin 40 mg subcutaneous DAILY levothyroxine (SYNTHROID) IV syringe 56 mcg intravenous DAILY piperacillin-tazobactam 4.5 g intravenous Q8H Objective: Blood pressure 109/61, temperature 36.9 ??C (98.4 ??F), temperature source Oral, resp. rate 18, weight 91.627 kg (202 lb), SpO2 97 %. Temp: [36.8 ??C (98.2 ??F)-37.1 ??C (98.8 ??F)] , Pulse: --, Resp: [17-26] , BP: (66-120)/(26-98) , SpO2: [92 %-100 %] I/O: Current Shift: 09/02 2299 - 09/03 0659 In: 2273.5 [I.V.:1073.5] Out: 400 [Urine:400] 24 hours: 09/01 2299 - 09/02 2259 In: 1656.4 [I.V.:1150.8] Out: 1065 [Urine:1065] Tubes/Lines/Infusions: PIV/ plasmalyte Vent: on nc ABG: Labs: WBC/Hgb/Hct/Plts: 23.58/10.4/31.8/110 (09/03 317) Na/K/Cl/CO2: 142/3.8/111/21 (09/03 317) BUN/Cr/glu/ALT/AST/amyl/lip: 16/0.82/--/68/73/--/-- (09/03 317) Micro: none Imaging: CXR: 1. ??A right internal jugular central venous catheter tip projects in the expected location of the atriocaval junction. 2. ??Increasing perihilar airspace opacities, right greater than left. Gen:? Alert, oriented, confortable Resp: faint crakcles in base CV:? RRR, no m/r/g Abd:? minimally distended. Soft. Tender RLQ ~ Mcburney's :? Jade in place with clear urine Ext:? Trace edema, WWP Assessment: Patient: 74 y.o. Female presenting with septic shock concerning for perforated appendicitis on CT. Weaned off pressors. Demand ischemia Principal Problem: Intra-abdominal infection Active Problems: Sepsis Plan: Neuro: Pain control PRN CV: Cardiac monitoring. Norepi off. Echo today. Showing signs of volume overload, will decrease rate, may need diuresis. Start ASA. Lipid panel Pulm: pulmonary toilet GI: NPO for now may advance later today Renal: Trend BUN/Cr, watch UOP. Heme: Daily CBC.?? ID: Trend WBC and fever curve.?? Abx: Zosyn. Endo: restart levothyroixine at lower dose FEN: mIVF: plasmalyte @ 75 ml/h.?? Replete lytes prn. Musculoskeletal: HOB elevated/Supine Stress Ulcer PPx: Protonix [] Pepcid [] No [x] Do they need all central and/or arterial lines?: Yes [x] No [] PIV's Only [] DVT PPX: Heparin [] Lovenox [x] SCD's [] Coumadin [] Contraindicated [] PT/OT: PT [] OT [] N/A[x] I+O's (goal): Even [x] Positive [] Negative [] Goal: 0 L Skin Integrity Intact?: Yes [x] No [] Nutrition: TPN [] TPN/Lipids [] Tube feeds [] NPO [x] PO Diet [] Tests off Floor: Yes [] No [x] Restraints Ordered: Yes [] No [x] Not Indicated [] Family Updated: Yes [x] No [] HOB Elevated: Yes [x] No [] ARDS Protocol Vent: Yes [] No [] N/A[x] CXR Tomorrow? Yes [] No [x] OR Today? If Yes, Checklist Done? Yes [] No [x] Yes [] No [] N/A[x] Daily Sedation Interruption: Yes [] No [x] N/A[] Goal RASS (0 recommended): 0 Bowel Movement: Yes [] No [x] Discontinuity[] Can jade be removed? Yes [] No [x] No Jade [] DAILY GOALS: Source control and antibiosis ?? Maintain hemodynamic stability Kofi Thornton MD 09/04/2015 6:49 Jamie Horvath RN - 09/03/2015 1345 EDT 1345 md Rony Morgan at bedside to place jules 1355 AP at bedside setting up for cvc 1358 U/s at bedside for imaging 1505 md Caceres rounding with SICU updates Pt and spouse 1527 md Alex at bedside to place jules 1625 md JETT at bedside setting up for CVC placement CAT RN Jonna at bedside documented in this encounter H&P Notes Samantha Go MD - 09/03/2015 1206 EDT Surgical H+P Admission Admit Date: 09/03/2015 Date of Service: 09/03/2015 Hospital day: Chief Complaint: Septic shock, fevers HPI: 74 yo female with HLD, hypothyroid who presented to OSH with fevers, fatigue, vague abdominal pain today and found to have profound septic shock and transferred to [facility]. Pt states that 2 weeks ago had some vague abdominal pain and fatigue. No URI symptoms. Then yesterday felt good until dinner time. After dinner(pasta) had emesis and chills. Didn't take temp but thinks she had a fever. Abdominal pain mild in RLQ with pushing, but presented to the ED today because she had fevers, chills, fatigue, decreased energy. Decreased UOP. +nausea. BM yesterday was normal. Denies diarrhea. +flu shot this season. Had colonoscopy 2 years ago, small polyp removed. No prior surgeries. On presentation to OSH lactate of 6.9. CORRINA. Given dose of ZOsyn and flagyl. Blood culture drawn. CT abdomen pelvis obtained. ^L ofNS bolus. Started on dopamine and has lakesha on 10 of dopamine with improved BP. Jade placed. PMH PSH Past Medical History Diagnosis Date ??? Thyroid disease No past surgical history on file.-reviewed, denied any surgical history Social History Family history History Substance Use Topics ??? Smoking status: denies ??? Smokeless tobacco: Not on file ??? Alcohol Use: Social Family History Problem Relation Age of Onset ??? Breast Cancer Mother 83 ??? Colon Cancer Mother 79 ??? Colon Polyps Mother ??? Colon Cancer Sister 67 rectal ??? Colon Cancer Maternal Grandfather 66 ??? Colon Polyps Sister Medications Synthroid 112 mcg daily Statin Allergies No Known Allergies Review of Systems: Pertinent items are noted in Subjective/HPI Objective/Physical Exam: VS: Patient Vitals for the past 8 hrs: BP Heart Rate Resp SpO2 09/03/15 1145 (!) 80/26 mmHg 98 BPM 25 95 % 09/03/15 1134 (!) 66/37 mmHg 100 BPM 25 - Pain: Patient Vitals for the past 8 hrs: Numeric Pain Level (Scale 1-10) 09/03/15 1148 0 ECG: pending Exam: General Appearance: alert, cooperative, intermittently sleepy HEENT: Dry MMM Lung: clear to auscultation bilaterally, non labored breathing Heart: tachycardic, no m/r/g Abdomen: Soft, obese, no prior surgical scars, ND, TTP in RLQ with localized peritonitis, involuntary guarding in RLQ, Minimally tender in epigastric area Extremities: all extremities warm and well perfused Skin: Skin color, temperature, turgor normal. No rashes or lesions Jade with yellow urine Data Review: CT abdomen/pelvis OSH: Reviewed personally , no free air, RLQ inflammation OSH read: localized inflammatory change in area of non visualized appendix consistent with ruptured appendicitis Cholelithiasis-GB wall edema and fat stranding concerning Cystic mass in adnexal region Secondary readImpression: 1. Extensive inflammation in the region of the cecum without definitive identification of the appendix. In addition, no definitive evidence of appendiceal rupture is present (fluid collections or free air). Given this the findings are nonspecific. 2. Wall thickening of the gallbladder and cholelithiasis, though the gallbladder is nondistended. These findings are nonspecific. The mild degree of abnormality suggests this is secondary to, opposed to the cause of, the patient's clinical condition. 3. Complex cystic structure associated with the right adnexa or fallopian tube. This may represent a complex cystic adnexal mass or hydrosalpinx. Evaluation with ultrasound when patient's condition improves is recommended. 4. Aortoiliac atherosclerosis 5. Moderate hiatal hernia CXR at OSH no acute process Labs: I have personally reviewed the last labs available in [facility] and any transfer labs OSH labs: wbc of 13.2 Cr: 1.29 Lactate 6.9. AST:150 ALT: 107 Alk phos: 127 UA: negative Assessment 74 yo female with HLD, hypothyroid who presented to OSH with fevers, fatigue, vague abdominal pain today and found to have profound septic shock. Abdominal CT scan with stranding in RLQ concerning for ruptured appendicitis but not visualized also possible cholecystitis. LFTs on recheck here within normal limits. Localized peritonitis in RLQ on exam. No drainable collection on CT scan. Unlikely cardiogenic shock as no CP, mildly elevated troponin will trend. Septic shock Hypokalemia Lactic acidosis Acute kidney injury (resolving) Problems/Plan: (update problem list daily as appropriate) EKG now, trend troponin Zosyn for IV antibiotics, follow up OSH cultures Central line and start levophed instead of dopamine [place] for BP monitoring Trend lactate Consult critical care, appreciate assistance Monitor UOP, jade, hold NSAIDS Potassium repleted RUQ ultrasound NPO IV synthroid No plan for OR at this time, if worsening hemodynamics with peritonitis would need possible exploration and bowel resection FULL CODE: discussed with patient and VTE Prophylaxis: Pharmacologic Prophylaxis: Enoxaparin (Lovenox) 40 mg SQ daily tomorrow Samantha Go MD 09/03/2015 12:[address] Lerner and Dr. Welchectronically signed by Neida Fisher MD at 09/03/2015 16:03 EDT Associated attestation - Neida Fisher MD - 09/03/2015 1603 EDT Attestation: I saw and examined the patient with the resident/fellow 09/03/2015. I agree with the findings and plan of care documented in the resident's/fellow's note.Pt seen in ED, hx as below. Awake, alert, does not c/o much, states she's uncomfortable, but not pain. Dopamine gtt running peripherally at 10 mcg/min, SBP 100's. Urine output is good, pt on her 7th liter of IVF per her . Pt presenting with septic shock most likely due to ruptured appendicitis. Gallbladder with thickened wall onCT but not tender. Will get a RUQ U/S to evaluate further. Will admit to the ICU, needs central access for the vasopressor, continue IVF resuscitation, IV abx's. Plan explained to pt and . Neida Fisher MD 09/03/2015 15:59 documented in this encounter Procedure Notes Shahzad Robles MD - 09/03/2015 1704 EDT Central Catheter Insertion First Catheter This Session icing and glaze maker: Patient Location: [place] [id number] Preliminary Data: Insertion Date: 09/03/15 Insertion Time: 1648 First Loss Control Manager: Dr. Shahzad Anglin RN/MA Documenting Procedure: Hellen Townsend RN Pre-procedure: Time Out / Final Moment Performed: Yes Hand Hygiene Immediately Prior To Procedure: Yes Site Disinfected-2% Chlorhex/70% Alcohol: Yes Procedure Site Completely Dry: Yes Entire Patient Draped in Sterile Fashion: Yes Intra-procedure: Sterile Gloves Used: Yes Cap, Mask, and Sterile Gown - Operators: Yes Sterile Field Maintained: Yes Cap and Mask Worn - All Personnel: Yes Post-procedure: Sterile Dressing Applied - Sterile Technique: Yes Dressing Dated And Timed: Yes Needle Passes: Resident/Fellow Makes 3 Passes or Less: Yes VA RN Makes 2 Or Fewer Needle Passes: 2 or fewer passes Physician Documentation Pre-Procedure: Procedure To Be Performed: New central line placement Indication: Hemodynamic monitoring Conditions Present: Septic shock Line Priority: Stat Tip Confirmation: X-ray Follow-Up X-ray: Yes Consent Obtained: Yes The patient and/or family have been provided education/training to minimize the risk of central line-associated bloodstream infections. Central Line Type: Central Catheter Type: Non-Tunneled Non-Tunneled Catheter: Standard Central Line Details: Line Location: Right;Internal Jugular Line Lumens (#): Triple Central Line Size: 7 Fr Line Coating: Non-antimicrobial coated Line External Length: 2 cm Line Securement Device: Sutured Catheter Secured At (cm):: 14 Responsible Service / IR Details: Responsible Service: SICU Central Line Materials and Methods: Number of Attempts: 1 Number of Sites Attempted: 1 Number of Kits Used: 1 Location Device Used: Ultrasound Central Line Operators: Number Of Operators: 2 First Loss Control Manager's Title: Resident Recreational Resort Manager's Title: Resident Unless otherwise noted, there were no complications, no blood loss and no cultures obtained. Shahzad Robles MD 09/03/2015 17:04 arrKofi singh MD - 09/03/2015 1623 EDT Arterial Line Placement Indication: monitoring of blood pressure in setting of septic shock Procedure: right arterial line placement Loss Control Manager: Kofi Thornton MD, Shahzad Robles MD Description: An allens' test was performed and confirmed adequate collateral flow. She was prepped and draped in a sterile The right radial artery was palpated and punctured. The wire was advanced and the arterial sheath was advanced. The wire was removed, the sheath was attached to IV tubing and the s brody was secured using nylon suture and a clear plastic dressing. Four attempts were made for successful arterial access. Complications: none Estimated blood loss: minimal Disposition: Patient remains stable and alert to arousal in the SICU. Kofi Thornton MD 09/03/2015 16:23 documented in this encounter Consult Notes Joel Escalona MD - 09/03/2015 2220 EDT Cardiology Inpatient Consult Note Admit Date: 09/03/2015 Date of Service: 09/03/2015 Requesting Physician: Natalia Campbell Completing Consult: Cardiology Reason for Consult: Elevated troponin HPI:(include onset,location,quality,severity, duration, timing, associating symptoms) Mrs. Cunha is a 74 yo female with HLD, who presented with septic shock presumbly due to rupture appendix with lactic acidosis, CORRINA, BP 66/37 on pressors support. Cardiology consulted for elevated troponin. She has no prior cardiac history. Never smoker. No family history of CAD. She never had any chest pain or SOB. She denies any leg edema, palpations, syncope, near syncope, orthopnea, PND. PMH PSH Past Medical History Diagnosis Date ??? Thyroid disease No past surgical history on file. Social History Family History History Substance Use Topics ??? Smoking status: Not on file ??? Smokeless tobacco: Not on file ??? Alcohol Use: Not on file Family History Problem Relation Age of Onset ??? Breast Cancer Mother 83 ??? Colon Cancer Mother 79 ??? Colon Polyps Mother ??? Colon Cancer Sister 67 rectal ??? Colon Cancer Maternal Grandfather 66 ??? Colon Polyps Sister Medications Current Facility-Administered Medications Medication Route Frequency ??? acetaminophen (TYLENOL) tablet 650 mg oral Q4H PRN Or ??? acetaminophen (TYLENOL) suppository 650 mg rectal Q4H PRN ??? electrolyte-A (PLASMALYTE-A) solution intravenous CONTINUOUS ??? [START ON 09/04/2015] enoxaparin (LOVENOX) injection 40 mg subcutaneous DAILY ??? HYDROmorphone (PF) (DILAUDID) 1 mg/mL injection 0.2-0.4 mg intravenous Q3H PRN ??? levothyroxine 56 mcg IV syringe intravenous DAILY ??? NORepinephrine (LEVOPHED) 8 mg in D5W 250 mL infusion intravenous CONTINUOUS ??? ondansetron (PF) (ZOFRAN) injection 4 mg intravenous Q6H PRN ??? piperacillin-tazobactam 4.5 g in sodium chloride (NS MBP) 0.9 % 100 mL IVPB intravenous Q8H Allergies No Known Allergies Review of Systems: Constitutional: positive for fevers, chills, sweats and fatigue Gastrointestinal: positive for abdominal pain Objective/Physical Exam: VS: Patient Vitals for the past 8 hrs: BP Heart Rate Resp Temp SpO2 O2 Flow Rate (L/min) O2 Device 09/03/152199 102/53 mmHg 92 BPM 22 - 98 % - - 09/03/152121 - 91 BPM 24 - 99 % 3 l/min Nasal cannula 09/03/152099 104/51 mmHg 96 BPM 21 - 97 % - - 09/03/152015 - 94 BPM 20 - 99 % - - 09/03/152009 - 94 BPM 21 - 98 % - - 09/03/151999 91/50 mmHg - 23 37.1 ??C (98.8 ??F) 98 % 2 l/min - 09/03/15 1944 (!) 77/48 mmHg 96 BPM 24 - 98 % - - 09/03/15 1900 - 96 BPM 24 - 100 % - - 09/03/15 1800 - 97 BPM 21 - 100 % - - 09/03/15 1715 - 97 BPM 21 - 100 % 3 l/min Nasal cannula 09/03/15 1700 - 100 BPM 24 - 100 % - - 09/03/15 1630 - 93 BPM 20 - 100 % 4 l/min Nasal cannula 09/03/15 1600 98/50 mmHg 92 BPM 18 - 99 % - - 09/03/15 1530 (!) 85/54 mmHg 93 BPM 23 - 98 % - - 09/03/15 1515 94/51 mmHg 92 BPM 23 - 98 % - - 09/03/15 1504 (!) 89/48 mmHg 96 BPM 23 - 98 % - - 09/03/15 1500 (!) 79/46 mmHg 94 BPM 20 - 98 % - - 09/03/15 1445 98/58 mmHg 95 BPM 22 - 98 % - - 09/03/15 1430 98/47 mmHg 104 BPM 21 - 92 % - - Exam: General: AAOX3. In no distress. Obese HEENT: atraumatic, normocephalic, PEERLA, No pallor, anicteric sclerae, moist mucous membranes Lungs: Clear Chest: Normal CV: No JVD, no HJD, RR, nondisplaced TX Normal S1 S2, no murmurs, rubs or gallops, no carotid bruits. Normal peripheral pulses Abd: nondistended, soft, obese decreased bowel sounds, non tender Legs: normal pulses, no edema, normal color, warm and dry Neuro: Grossly Intact Data Review: I have independently visualized the, x-ray(s) and image(s) Labs: CBC: Lab Results Component Value Date WBC 23.44* 09/03/2015 RBC 4.00 09/03/2015 HGB 11.8 09/03/2015 HCT 36.9 09/03/2015 MCV 92 09/03/2015 MCH 29.5 09/03/2015 MCHC 32.0* 09/03/2015 PLT 139* 09/03/2015 NEUTROABS 17.82* 09/03/2015 BMP: Lab Results Component Value Date NA 145 09/03/2015 K 3.3* 09/03/2015 CL 113* 09/03/2015 CO2 20* 09/03/2015 BUN 17 09/03/2015 CREATININE 0.93 09/03/2015 CALCIUM 7.4* 09/03/2015 Coagulation: No results found for: PROTIME, INR, PTT Cardiac markers: Lab Results Component Value Date TROPONINI 0.334* 09/03/2015 TROPONINI 0.073* 09/03/2015 ABGs: No results found for: PHISTAT, PCOISTAT, POISTAT, POCTCO2, [id number], BEART, POCFIO2 LFT: Lab Results Component Value Date TBIL 1.1 09/03/2015 ALKPHOS 97 09/03/2015 AST 116* 09/03/2015 ALT 78* 09/03/2015 LIPASE 31 09/03/2015 U/A: No results found for: CLARITYU, LABSPEC, PHUR, GLUCOSEU, BILIRUBINUR, KETONES, BLOODU, PROTEINUA prealbumin: No results found for: PREALBUMIN Lipid Profile: No results found for: CHOL, TRIG, HDL, LDLBASE, CHOLHDL Other Studies: Telemetry: yes, Normal sinus rhythm and Findings EKG: sinus with first degree AV block resolved on reepated ECG. no ischemic changes Assessment: Mrs. Cunha is a 74 yo female with HLD, who presented with septic shock presumbly due to rupture appendix with lactic acidosis, CORRINA, BP 66/37 on pressors support. Cardiology consulted for elevated troponin. Elevated troponin in the setting of septick shock due to demand ischemia or just stress related. No evidence of plaque rupture or erosion. No ECG changes. Pt has only HLD as risk factor. Asymptomatic. No evidence of heart failure. Recommendations: Aspirin 81 mg daily No need for anticoagulation Echocardiogram in the morning Trend troponin till peaked Check lipid panel Joel Escalona MD 09/03/2015 22:20 Health Evaluator Pager # [phone] Associated attestation - Bienvenido Payton MD - 09/04/2015 1043 EDT Attestation: I saw and evaluated the patient on 09/04/2015. I agree with the findings and plan of careas documented in the resident's/fellow's note. Bienvenido Payton MD 09/04/2015 10:43Kofi Thornton MD - 09/03/2015 1401 EDT ICU Admit Note Admit Date: 09/03/2015 CC: Intra-abdominal infection Subjective: HPI: 74 y.o. female with HLD, hypothyroid, ? Heart failure, who presented to OSH with fevers, fatigue, nausea, vomiting,and vague abdominal pain today and found to have profound septic shock and transferred to [facility]. Pt states that 2 weeks ago had some vague abdominal pain and fatigue. No URI symptoms. Then yesterday felt good until dinner time. After dinner(pasta) had emesis and chills. Didn't take temp but thinks she had a fever. Abdominal pain mild in RLQ with pushing, but presented to the ED todaybecause she had fevers, chills, fatigue, decreased energy. Decreased UOP. +nausea. BM yesterday was normal. Denies diarrhea. +flu shot this season. Had colonoscopy 2 years ago, small polyp removed. No prior surgeries. On presentation to OSH noted hypotensive and tachycardic with lactic acidosis. Was bolused 4L NS, started on dopamine, given zosyn and flagyl x1. CT findings concerning for rupture appendix. Transferred to [facility] for further management Past Medical History Diagnosis Date ??? Thyroid disease No past surgical history on file. No Known Allergies Family History Problem Relation Age of Onset ??? Breast Cancer Mother 83 ??? Colon Cancer Mother 79 ??? Colon Polyps Mother ??? Colon Cancer Sister 67 rectal ??? Colon Cancer Maternal Grandfather 66 ??? Colon Polyps Sister History Substance Use Topics ??? Smoking status: Not on file ??? Smokeless tobacco: Not on file ??? Alcohol Use: Not on file Medications: [START ON 09/04/2015] enoxaparin 40 mg subcutaneous DAILY piperacillin-tazobactam 4.5 g intravenous Q8H potassium chloride 20 mEq intravenous EVERY 2 HOURS Objective: Blood pressure 110/55, temperature 36.8 ??C (98.2 ??F), temperature source Temporal, resp. rate 24, weight 91.627 kg (202 lb), SpO2 97 %. Temp: [36.8 ??C (98.2 ??F)-36.9 ??C (98.4 ??F)] , Pulse: --, Resp: [20-26] , BP: (66-119)/(26-59) , SpO2: [94 %-97 %] I/O: Current Shift: 09/02 0700 - 06/01 1459 In: 58 [I.V.:58] Out: 400 [Urine:400] 24 hrs: Tubes/Lines/Infusions: PIV, dopamine ABG: Labs: WBC/Hgb/Hct/Plts: 23.44/11.8/36.9/139 (09/02 1154) Na/K/Cl/CO2: 145/3.3/113/20 (09/02 1154) BUN/Cr/glu/ALT/AST/amyl/lip: 17/0.93/109/78/116/--/31 (09/02 1154) Lactate: 3.2 (from > 6 at OSH)) Trop: 0.073 TSH: 0.14 EKG: NSR, First degree block, LAD Micro: Sent at OSH Imaging: Reviewed. CT chest: oupouching aortic arch distal to L subclavian taketoff. Pseudoaneurysm vs large penetrating ulcer CT abd: localized inflammatory change in area of non visualized appendix consistent with ruptured appendicitis. Cholelithiasis-GB wall edema and fat stranding concerning. Cystic mass in adnexal region Secondary read --> 1. Extensive inflammation in the region of the cecum without definitive identification of the appendix. In addition, no definitive evidence of appendiceal rupture is present (fluid collections or free air). Given this the findings are nonspecific. 2. Wall thickening of the gallbladder and cholelithiasis, though the gallbladder is nondistended. These findings are nonspecific. The mild degree of abnormality suggests this is secondary to, opposed to the cause of, the patient's clinical condition. 3. Complex cystic structure associated with the right adnexa or fallopian tube. This may represent a complex cystic adnexal mass or hydrosalpinx. Evaluation with ultrasound when patient's condition improves is recommended. 4. Aortoiliac atherosclerosis 5. Moderate hiatal hernia. Gen: Alert, oriented, confortable Resp: GAEB CV: RRR, no m/r/g Abd: minimally distended. Soft. Tender RLQ ~ Mcburney's , minimal RUQ tenderness : Jade in place with clear urine Ext: Trace edema, WWP Assessment: Patient: 74 y.o. Female presenting with septic shock concerning for perforated appendicitis on CT. On pressors. Likely demand ischemia. Hypokalemia Principal Problem: Intra-abdominal infection Active Problems: Sepsis Plan: Neuro: Pain control PRN CV: Cardiac monitoring. Serial troponin. On dopamine. Norepi ordered. Will need central line placed.Monitor closely for signs of volume overload. Pulm: pulmonary toilet GI: NPO for now Renal: Trend BUN/Cr, watch UOP. Heme: Daily CBC. ID: Trend WBC and fever curve. Abx: Zosyn. ? IR drain Endo: restart levothyroixine; may need readjustment for possible supratherapeutic doses FEN: mIVF: plasmalyte @ 125 ml/h. Replete lytes prn. Musculoskeletal: HOB elevated/Supine Stress Ulcer PPx: Protonix [] Pepcid [] No [x] Do they need all central and/or arterial lines?: Yes [x] No [] PIV's Only [] DVT PPX: Heparin [] Lovenox [x] SCD's [x] Coumadin [] Contraindicated [] PT/OT: Yes [] No [x] I+O's (goal): Even [x] Positive [] Negative [] Goal: 0 L Skin Integrity Intact?: Yes [x] No [] Nutrition: TPN [] TPN/Lipids [] Tube feeds [] NPO [x] PO Diet [] Tests off Floor: Yes [] No [x] Restraints Ordered: Yes [] No [] Not Indicated [x] Family Updated: Yes [x] No [] HOB Elevated: Yes [x] No [] ARDS Protocol Vent: Yes [] No [] N/A[x] CXR Tomorrow? Yes [] No [x] OR Today? If Yes, Checklist Done? Yes [] No [x] Yes [] No [] N/A[x] Daily Sedation Interruption: Yes [] No [] N/A[x] Goal RASS (0 recommended): 0 Bowel Movement: Yes [x] No [] Discontinuity[] Can jade be removed? Yes [x] No [] No Jade [] DAILY GOALS: Source control and antibiosis Maintain hemodynamic stability Kofi Thornton MD 09/03/2015 14:55 documented in this encounter ED Notes Albaro Pierre - 09/03/2015 1312 EDT 12 Lead EKG Performed by Albaro Pierre and shown to Ken Leggett MD. ony Meyers - 09/03/2015 1255 EDT Lactic acid 3.2. CRUZ made aware (RDW) Albaro Conti - 09/03/2015 1205 EDT Blood drawn via saline lock per protocol, tiger, green and purple tube(s) sent to lab per order. MANTCKen hall MD - 09/03/2015 1137 EDT DOS: 09/03/2015 Chief Complaint Patient presents with ??? Fever See tcall. Abd mass on CT HPI The patient is a 74 y.o. female who presents today with Fever HPI Comments: I, Jenelle Astorga, am scribing for Ken Leggett MD while he/she is personally performing the service. Jenelle Astorga 09/03/2015 11:37 Joy Cunha is a 74 y.o. female with a history of hypothyroidism and hypercholesterolemia who was accepted in transfer by Dr. Fisher of acute care surgery for further evaluation. Patient presented tot outside hospital hypotensive and febrile. Patient states that she went on a trip to [place] August 27 and . Patient reports cold chills that began last evening and emesis that began in the middle of the night. Patient without cough, dysuria or cough. Patient without episodes of syncope or abdominal pain. Patient seen at [facility] prior to transfer where labs for notable for the following: WBC of 13.7, Hemoglobin 13.3, hematocrit 43%, platelets 175,000, sodium 142, potassium 3.5, chloride 104, bicarbonate 25, calcium 9.1, total bilirubin 0.7, alkaline phosphatase 127, AST 150, ALT 107 and serum lactate 6.9. Urine dip stick was normal. CT chest at the outside hospital was normal. CT abdomen, pelvis at the outside hospital showed the followin) localized inflammatory changes in the region of a non-visualized appendic consistent with possible ruptured appendicitis, 2) gallstones with gallbladder wall edema and inflammatory changes consistent with possible cholecystitis and 3)cystic mass in the right adnexal region measuring 5.9cm x 5.1cm x 4.4cm. Prior to arrival here patient received IV fluid 6L prior to arrival, dopamine drip and abx converagewith zosyn and flagyl. The history is provided by the patient and medical records. Emesis Severity: Moderate Timing: Constant Quality: Unable to specify Progression: Unchanged Chronicity: New Recent urination: Normal Relieved by: Nothing Worsened by: Nothing tried Ineffective treatments: None tried Associated symptoms: chills Associated symptoms: no abdominal pain and no cough Review of Systems Review of Systems Constitutional: Positive for fever and chills. Gastrointestinal: Positive for nausea and vomiting. Negative for abdominal pain. Genitourinary: Negative for dysuria. All other systems reviewed and are negative. No Known Allergies Vital Signs Temp: 36.9 ??C (98.4 ??F) Temp src: Temporal Heart Rate: 110 BPM Resp: 26 SpO2: 94 % BP: 119/56 mmHg BP MAP: 70 mm Hg Physical Exam Constitutional: She is oriented to person, place, and time. She appears well- developed and well-nourished. HENT: Head: Normocephalic and atraumatic. Mouth/Throat: Oropharynx is clear and moist. Eyes: EOM are normal. Pupils are equal, round, and reactive to light. No scleral icterus. Neck: Neck supple. No JVD present. Cardiovascular: Regular rhythm. Borderline tachycardic with regular rhythm. Some what distant heart sounds. Pulmonary/Chest: Lungs clear on ausculation. Abdominal: Soft. There is no tenderness. There is no guarding. Musculoskeletal: She exhibits edema (trace pedal edema bilaterally in lower extremities. ). Neurological: She is alert and oriented to person, place, and time. Skin: Skin is warm and dry. Psychiatric: She has a normal mood and affect. Nursing note and vitals reviewed. RESULTS ED Lab Results Labs Reviewed BASIC METABOLIC PANEL - Abnormal Potassium 3.3 (*) Final Chloride 113 (*) Final Sodium 145 Final CO2 PENDING Incomplete BUN PENDING Incomplete Creatinine PENDING Incomplete GFR, Calculated PENDING Incomplete Calcium PENDING Incomplete Calculated Calcium PENDING Incomplete Glucose, Serum PENDING Incomplete Fasting? PENDING Incomplete HEMAGRAM AND DIFFERENTIAL - Abnormal WBC 23.44 (*) Final MCHC 32.0 (*) Final PLT 139 (*) Final RBC 4.00 Final Hemoglobin 11.8 Final HCT 36.9 Final MCV 92 Final MCH 29.5 Final RDW-CV 14.6 Final RDW-SD 49.4 Final MPV 10.2 Final Neutrophils PENDING Incomplete ED/URGENT CARE ADD-ON Tests to be added TROPONIN 1 Final Number for problems 38786 (ED) Final ED/URGENT CARE ADD-ON Tests to be added TSH Final Number for problems 67935 (ED) Final ED/URGENT CARE ADD-ON Tests to be added LIPASE Final Number for problems 67138 (ED) Final LACTIC ACID TROPONIN I LIPASE TSH Procedures ED COURSE A medical screening exam was performed. 74-year-old female with new-onset fever, and evaluation prior to arrival revealing intra-abdominal infective source. On arrival to ED patient had persistent hypotension, however clinically demonstrated normal mental status and no distress. Cultures and antibiotic administration were performed prior to transfer. Fluid resuscitation and peripheral dopamine are continued on arrival to this ED. 1151. Paged chief resident of the Acute Care Surgical service. 1152. Consulted Acute Care Surgery. Patient admitted to the SICU by Dr. Fisher. ASSESSMENT AND PLAN Final diagnoses: Sepsis, due to unspecified organism Intra-abdominal infection DISPOSITION: Admitted The patient's pain was managed to an adequate level weighing risk vs. benefit of further medications. Upon departure from the Emergency Department, the patient's pain was 0 on a zero to ten scale. Condition at departure from the Emergency Department: Serious PCP: Jodi Camp [facility] Number of Diagnoses or Management Options Intra-abdominal infection: Sepsis, due to unspecified organism: Diagnosis management comments: 5 Amount and/or Complexity of Data Reviewed Clinical lab tests: ordered and reviewed Tests in the radiology section of CPT??: reviewed Tests in the medicine section of CPT??: reviewed Decide to obtain previous medical records or to obtain history from someone other than the patient: yes Review and summarize past medical records: yes Discuss the patient with other providers: yes Independent visualization of images, tracings, or specimens: yes This documentation is recorded by Jenelle Astorga acting as Scribe under the direction and presence of Ken Leggett MD. Ken Leggett MD: I personally performed the services recorded by the scribe in my presence. I confirm the scribe's documentation has been reviewed by me to accurately and completely record my work,treatment, procedures, and medical decision making. 09/03/2015 12:35 No flowsheet data found. ony Cantu - 09/03/2015 1117 EDT TCALL: JOY CUNHA. 42. Sepsis of unknown origin. Fever+weakness, vomiting. Chest x-ray (-). LFT elevated. NS 5.5 L, 3.37 zosyn, 500 flagyl, 1 gram tylenol, dopamine. Now BP 70s-120s. CAOx3. BP 70s-80s S. T 98.3, P 90s. 18g and 22g. SPO2 82% 2 liters. Note taken by Adir. (RDW) documented in this encounter Miscellaneous Notes Plan of Care - Romelia Soriano RN - 09/07/2015 0156 EDT Problem: Daily Care Plan Goals Goal: Care Plan Documentation Outcome: Ongoing 09/07/15 0020 Care Plan Focus Area of Focus Sleep Goal This Shift pt will have adequate sleep Data: Pt goal to have adequate sleep this shift. Action: Pt provided clustered care throughout shift. Pt's curtain pulled for privacy/noise reduction. Pt's lights turned off. Response: Pt slept well throughout shift. No s/sx of pain or discomfort. Romelia Soriano RN 09/07/2015 1:55 lan of Care - Leanna Rudd RN - 09/06/2015 2119 EDT Problem: Daily Care Plan Goals Goal: Care Plan Documentation Data: Possible discharge 09/06 if izaiah. Diet and oral abx. Action: patient ate 1/2 turkey sandwich for dinner-offered other food/snacks Response: declined further food. No nausea after abx-continue to monitor Leanna Rudd RN 09/06/2015 21:17 lan of Care - Virginia Funk RN - 09/06/2015 1255 EDT Problem: Daily Care Plan Goals Goal: Care Plan Documentation Outcome: Met This Shift 09/06/15 0800 Care Plan Focus Area of Focus Communication Goal This Shift pt will verbalize understanding of plan Problem: Bowel/Gastric: Goal: Ability to achieve a regular elimination pattern will improve Data: Abdomen soft denies pain, no nausea or vomiting, independent with ADL's Action: encourage ambulation, assess tolerance to diet and oral antibiotics Response: walking in [place] with spouse, tolerated breakfast and lunch, afebrile WBC trending down 12.99 this morning. Will continue to monitor Virginia Funk RN 09/06/2015 12:51 lan of Care - Lorie Lauren RN - 09/06/2015 0221 EDT Problem: Daily Care Plan Goals Goal: Care Plan Documentation Outcome: Ongoing 09/05/15 2107 Care Plan Focus Area of Focus Pain/ Comfort Goal This Shift Pt will report adequate pain control overnight Data: Pt w/o complaints this shift. No reports of nausea or pain. Trace edema. Ringing appropriatelyto get OOB to bathroom. Pt on 1L of O2 via NC. Action: Attempted to wean pt off O2. Pt desatting to 88% when in bed. O2 placed back on pt. Encouraged IS when awake. Response: Pt sleeping overnight. Will monitor for acute changes Lorie Lauren RN 09/06/2015 2:18 lan of Laura - John Davies RN - 09/05/2015 1700 EDT Problem: Daily Care Plan Goals Goal: Care Plan Documentation Outcome: Met This Shift Data: Patient transferred to [place] [address]. Action: Oriented patient to floor. Encouraged meal intake. Contact guard assisted patient OOB to bathroom. Response: Patient denies any pain or nausea. Voided 75 cc of clear, yellow urine. Tolerated regular diet. John Davies RN 09/05/2015 16:59 lan of Care - Caro Kaufman RN - 09/05/2015 0645 EDT Problem: Daily Care Plan Goals Goal: Care Plan Documentation Outcome: Met This Shift 09/05/15 0642 Care Plan Focus Area of Focus GI//Elimination Goal This Shift patient will have minumum of 30ml/hr UOP D: Assumed care of patient at 1930, urine output less that 30 at 0000. A: Dr. Davis notified. 20 mg IV lasix administered. 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 VSS,. Will CTM. lan of Care - Caro Kaufman RN - 09/04/2015 0300 EDT Problem: Daily Care Plan Goals Goal: Care Plan Documentation 09/03/151999 Care Plan Focus Area of Focus Circulatory Status Goal This Shift patient will remain hemodynamically stable D: Assumed care of patient admitted earlier in the day with septic shock, possible perforated appendix. Patient AAOx3, no c/o pain. A line and central line in place. A: See MAR and flow sheets. Levophen restarted at 1950 for SBP in the 70s. Dr. Leach aware. Levophed titrated to keep MAP greater than 60. A line positional and dampened at times. OK to titrate via cuff. R: Levophed now at 2mcg/min. MAP 65. Will CTM and document per protocol. documented in this encounter Plan of Treatment Scheduled Referrals Name Type Priority Associated Diagnoses Order S chedule AMB CONS/FOLLOW UP Outpatient Referral Routine Sepsis, due to Ordered: GENERAL SURGERY unspecified [place] 08/2015 [place] Intra-abdominal infection AMB CONS/FOLLOW UP Outpatient Referral Routine Elevated troponin Ordered: CARDIOLOGY Sepsis, due to 09/25/2015 unspecified organism ([facility] documented as of this encounter Procedures Procedure Name Priority Date/Time Associated Comments Diagnosis ECG REPORT - SCANNED 09/16/2015 7:11 EDT ECG REPORT - SCANNED 09/10/2015 13:48 EDT ECG REPORT - SCANNED 09/10/2015 13:48 EDT ECG REPORT - SCANNED 2015 10:01 EDT COMPLETE BLOOD COUNT Routine 09/07/2015 6:31 Resu lts for this AND DIFFERENTIAL EDT procedure a re in the results section. CALCIUM, IONIZED Routine 09/06/2015 7:06 Results for this EDT procedure are i n the results section. COMPLETE BLOOD COUNT Routine 09/06/2015 7:06 Resu lts for this AND DIFFERENTIAL EDT procedure a re in the results section. TOTAL & DIRECT Routine 09/06/2015 7:06 Results fo r this BILIRUBIN EDT procedure are i n the results section. BUN Routine 09/06/2015 7:06 Results for this EDT procedure are i n the results section. ALT Routine 09/06/2015 7:06 Results for this EDT procedure are i n the results section. AST Routine 09/06/2015 7:06 Results for this EDT procedure are i n the results section. PHOSPHORUS Routine 09/06/2015 7:06 Results for this EDT procedure are i n the results section. ALKALINE PHOSPHATASE Routine 09/06/2015 7:06 Resu lts for this EDT procedure are i n the results section. MAGNESIUM Routine 09/06/2015 7:06 Results for this EDT procedure are i n the results section. CREATININE Routine 09/06/2015 7:06 Results for this EDT procedure are i n the results section. ELECTROLYTES Routine 09/06/2015 7:06 Results for this EDT procedure are i n the results section. ECHOCARDIOGRAM LIMITED Routine 09/05/2015 12:02 R esults for this EDT procedure are i n the results section. CALCIUM, IONIZED Routine 09/05/2015 3:06 Results for this EDT procedure are i n the results section. COMPLETE BLOOD COUNT Routine 09/05/2015 3:06 Resu lts for this AND DIFFERENTIAL EDT procedure a re in the results section. TOTAL & DIRECT Routine 09/05/2015 3:06 Results fo r this BILIRUBIN EDT procedure are i n the results section. BUN Routine 09/05/2015 3:06 Results for this EDT procedure are i n the results section. ALT Routine 09/05/2015 3:06 Results for this EDT procedure are i n the results section. AST Routine 09/05/2015 3:06 Results for this EDT procedure are i n the results section. PHOSPHORUS Routine 09/05/2015 3:06 Results for this EDT procedure are i n the results section. ALKALINE PHOSPHATASE Routine 09/05/2015 3:06 Resu lts for this EDT procedure are i n the results section. MAGNESIUM Routine 09/05/2015 3:06 Results for this EDT procedure are i n the results section. CREATININE Routine 09/05/2015 3:06 Results for this EDT procedure are i n the results section. LIPID PROFILE (INCLUDES Routine 09/05/2015 3:06 R esults for this CHOLESTEROL, EDT procedure are i n TRIGLYCERIDES, HDL, the resu lts LDL) section. ELECTROLYTES Routine 09/05/2015 3:06 Results for this EDT procedure are i n the results section. ECHOCARDIOGRAM Routine 09/04/2015 10:49 Results f or this EDT procedure are i n the results section. CALCIUM, IONIZED Routine 09/04/2015 3:18 Results for this EDT procedure are i n the results section. TROPONIN I Routine 09/04/2015 3:18 Results for this EDT procedure are i n the results section. COMPLETE BLOOD COUNT Routine 09/04/2015 3:18 Resu lts for this AND DIFFERENTIAL EDT procedure a re in the results section. TOTAL & DIRECT Routine 09/04/2015 3:18 Results fo r this BILIRUBIN EDT procedure are i n the results section. BUN Routine 09/04/2015 3:18 Results for this EDT procedure are i n the results section. ALT Routine 09/04/2015 3:18 Results for this EDT procedure are i n the results section. AST Routine 09/04/2015 3:18 Results for this EDT procedure are i n the results section. PHOSPHORUS Routine 09/04/2015 3:18 Results for this EDT procedure are i n the results section. ALKALINE PHOSPHATASE Routine 09/04/2015 3:18 Resu lts for this EDT procedure are i n the results section. MAGNESIUM Routine 09/04/2015 3:18 Results for this EDT procedure are i n the results section. CREATININE Routine 09/04/2015 3:18 Results for this EDT procedure are i n the results section. ELECTROLYTES Routine 09/04/2015 3:18 Results for this EDT procedure are i n the results section. TROPONIN I Routine 09/04/2015 1:42 Results for this EDT procedure are i n the results section. LACTIC ACID Routine 09/04/2015 1:42 Results for this EDT procedure are i n the results section. RESPIRATORY CARE Routine 09/04/2015 0:05 EVALUATION ONLY EDT RESPIRATORY CARE Routine 09/04/2015 0:05 EVALUATION ONLY EDT EKG 12-LEAD STAT 09/03/2015 21:06 Results for this EDT procedure are i n the results section. TROPONIN I Routine 09/03/2015 19:30 Results for this EDT procedure are i n the results section. LACTIC ACID Routine 09/03/2015 19:30 Results for this EDT procedure are i n the results section. PORTABLE CHEST 1 VIEW STAT 09/03/2015 17:02 Re sults for this EDT procedure are i n the results section. RAD US ABDOMEN ONE Routine 09/03/2015 14:34 Resul ts for this ORGAN/QUADRANT EDT procedure are in the results section. RESPIRATORY CARE Routine 09/03/2015 13:48 EVALUATION ONLY EDT MRSA PCR Routine 09/03/2015 13:48 Results for this EDT procedure are i n the results section. SECONDARY READ BODY CT STAT 09/03/2015 13:23 R esults for this EDT procedure are i n the results section. INPATIENT ADD-ON STAT 09/03/2015 13:15 Results for this EDT procedure are i n the results section. EKG 12-LEAD STAT 09/03/2015 13:10 Results for this EDT procedure are i n the results section. ED/URGENT CARE ADD-ON STAT 09/03/2015 12:25 Re sults for this EDT procedure are i n the results section. ED/URGENT CARE ADD-ON STAT 09/03/2015 12:25 Re sults for this EDT procedure are i n the results section. ED/URGENT CARE ADD-ON STAT 09/03/2015 12:20 Re sults for this EDT procedure are i n the results section. TROPONIN I Routine 09/03/2015 11:55 Results for this EDT procedure are i n the results section. LACTIC ACID STAT 09/03/2015 11:55 Results for this EDT procedure are i n the results section. COMPLETE BLOOD COUNT STAT 09/03/2015 11:55 Res ults for this AND DIFFERENTIAL EDT procedure a re in the results section. ALT Routine 09/03/2015 11:55 Results for this EDT procedure are i n the results section. AST Routine 09/03/2015 11:55 Results for this EDT procedure are i n the results section. TSH Routine 09/03/2015 11:55 Results for this EDT procedure are i n the results section. ALKALINE PHOSPHATASE Routine 09/03/2015 11:55 Res ults for this EDT procedure are i n the results section. LIPASE Routine 09/03/2015 11:55 Results for this EDT procedure are i n the results section. BILIRUBIN, TOTAL Routine 09/03/2015 11:55 Results for this EDT procedure are i n the results section. BASIC METABOLIC PANEL STAT 09/03/2015 11:55 Re sults for this (BMP) EDT procedure are i n the results section. documented in this encounter Results (ABNORMAL) HEMAGRAM AND DIFFERENTIAL (09/07/2015 6:31 EDT) Pathologist Sig nature WBC 9.90 4.0 - 12.4 K/cmm [facility] RBC 3.81 (L) 3.86 - 5.04 [facility] M/[facility]OR[facility]ORY SERVICES Hemoglobin 11.2 (L) 11.6 - 15.2 [facility] gm/dl LABORATORY SERVICES HCT 34.3 (L) 34.9 - 44.4 % [facility] MCV 90 81 - 98 fl [facility] MCH 29.4 26.7 - 33.3 pg [facility] MCHC 32.7 32.1 - 35.9 [facility] gm/dl LABORATORY SERVICES RDW-CV 14.7 (H) 11.7 - 14.6 % [facility] RDW-SD 48.4 37.6 - 50.3 fl [facility] PLT 130 (L) 141 - 377 K/cmm [facility] MPV 11.4 9.5 - 12.7 fl [facility] Neutrophils 64.0 % [facility] Bands 1.0 % [facility] Lymphocytes 20.0 % [facility] Monocytes 9.0 % [facility] Eosinophils 2.0 % [facility] Basophils 1.0 % [facility] Metamyelocytes 2.0 % [facility] Myelocytes 1.0 % [facility] ABS Neutrophils 6.33 2.20 - 8.85 [facility] K/[facility] ABS [facility]ands [facility].10 [facility] ABS Lymphs 1.98 1.09 - 3.30 [facility]OR[facility] ABS Monocytes 0.89 (H) 0.1 - 0.8 [facility] ABS Eosinophils 0.20 0.03 - 0.61 [facility] K/[facility] ABS Basophils 0.10 0.01 - 0.11 [facility] ABS Metamyelocytes 0.20 [facility] ABS Myelocytes 0.10 [facility] Type of Diff: Manual [facility] Specimen Blood specimen (specimen) - Blood Performing Organization Address City/[facility] Code Phon e Number [facility] [address] [place] [phone] SERVICES TOTAL & DIRECT BILIRUBIN (09/06/2015 7:06 EDT) Pathologist Sig nature Conjugated Bilirubin 0.0 0.0 - 0.3 mg/dl [facility] Unconjugated Bilirubin 0.4 0.0 - 1.1 mg/dl [facility] TER LABORATORY SERVICES Bilirubin, Total 1.1 <1.4 mg/dl [facility] Specimen Blood specimen (specimen) - Blood Performing Organization Address City/State/[facility] Phon e Number [facility] [address] [place] [address] SERVICES (ABNORMAL) ALKALINE PHOSPHATASE (09/06/2015 7:06 EDT) Pathologist Sig nature Total Alkaline 174 (H) 38 - 126 U/L [facility] Phosphatase LABORATORY SERVICES Specimen Blood specimen (specimen) - Blood Performing Organization Address [facility]/State/ZIP Code Phon e Number [facility] [address] [place] [address] SERVICES PHOSPHORUS (09/06/2015 7:06 EDT) Pathologist Sig nature Phosphorus 3.0 2.5 - 4.5 mg/dl [facility] SERVICES Specimen Blood specimen (specimen) - Blood Performing Organization Address City/[facility]/ZIP Code Phon e Number [facility] [address] [place] [address] SERVICES MAGNESIUM (09/06/2015 7:06 EDT) Pathologist Sig nature Magnesium 2.1 1.7 - 2.8 mg/dl [facility] SERVICES Specimen Blood specimen (specimen) - Blood Performing Organization Address City/[facility]/ZIP Code Phon e Number [facility] [address] [place] [address] SERVICES ALT (09/06/2015 7:06 EDT) Pathologist Sig nature ALT 49 <53 U/L [facility]ATOR Y SERVICES Specimen Blood specimen (specimen) - Blood Performing Organization Address City/[facility]/ZIP Code Phon e Number [facility] [address] [place] [address] SERVICES AST (09/06/2015 7:06 EDT) Pathologist Sig nature AST 44 15 - 46 U/L [facility] Y SERVICES Specimen Blood specimen (specimen) - Blood Performing Organization Address City/[facility]/ZIP Code Phon e Number [facility] [address] [place] [address] SERVICES BUN (09/06/2015 7:06 EDT) Pathologist Sig nature BUN 12 10 - 26 mg/dl [facility] LABORATO RY SERVICES Specimen Blood specimen (specimen) - Blood Performing Organization Address City/[facility]/ZIP Code Phon e Number [facility] [address] [place] [address] SERVICES CREATININE (09/06/2015 7:06 EDT) Creatinine 0.63 0.52 - 1.04 [facility] mg/dl LABORATORY SERVICES GFR, Calculated 90 >60 [facility] Comment: ml/min/1.73m2 LABORATORY eGFR calculated using CKD-EPI equation for SERVICES non Americans. Multiply eGFR by 1.16 for Americans. Specimen Blood specimen (specimen) - Blood Performing Organization Address City/State/ZIP Code Phon e Number [facility] [address] [place] [address] SERVICES CALCIUM, IONIZED (09/06/2015 7:06 EDT) Pathologist Sig nature Calcium, Ionized 1.18 1.12 - 1.32 mmol/L [facility] Specimen Blood specimen (specimen) - Blood Performing Organization Address City/[facility]/ZIP Code Phon e Number [facility] [address] [place] [address] SERVICES ELECTROLYTES (09/06/2015 7:06 EDT) Pathologist Sig nature Sodium 140 136 - 145 mEq/L [facility] Potassium 4.0 3.5 - 5.0 mEq/L [facility] Chloride 103 96 - 110 mEq/L [facility] ORY SERVICES CO2 26 24 - 32 mEq/L [facility] RY SERVICES Specimen Blood specimen (specimen) - Blood Performing Organization Address City/[facility]/ZIP Code Phon e Number [facility] [address] [place] [address] SERVICES (ABNORMAL) HEMAGRAM AND DIFFERENTIAL (09/06/2015 7:06 EDT) Pathologist Sig nature WBC 12.99 (H) 4.0 - 12.4 K/cmm [facility] RBC 3.74 (L) 3.86 - 5.04 [facility] M[facility] LABORATORY SERVICES Hemoglobin 11.0 (L) 11.6 - 15.2 [facility] gm/dl LABORATORY SERVICES HCT 33.8 (L) 34.9 - 44.4 % [facility] MCV 90 81 - 98 fl [facility] MCH 29.4 26.7 - 33.3 pg [facility] MCHC 32.5 32.1 - 35.9 [facility] gm/dl LABORATORY SERVICES RDW-CV 14.8 (H) 11.7 - 14.6 % [facility] RDW-SD 49.1 37.6 - 50.3 fl [facility] PLT 110 (L) 141 - 377 K/cmm [facility] MPV 10.8 9.5 - 12.7 fl [facility] Neutrophils 80.0 % [facility] Bands 1.0 % [facility] Lymphocytes 14.0 % [facility] Monocytes 1.0 % [facility] Eosinophils 4.0 % [facility] ABS Neutrophils 10.39 (H) 2.20 - 8.85 [facility] K[facility] LABORATORY SERVICES ABS Bands 0.13 K/cmm [facility] ABS Lymphs 1.82 1.09 - 3.30 [facility] K/cm LABORATORY SERVICES ABS Monocytes 0.13 0.1 - 0.8 K/cmm [facility] ABS Eosinophils 0.52 0.03 - 0.61 [facility] LABORATORY SERVICES Toxic Granulation Present [facility] Vacuolization Present [facility] Type of Diff: Manual [facility] Specimen Blood specimen (specimen) - Blood Performing Organization Address City/State/ZIP Code Phon e Number [facility] [address] [place] [address] SERVICES ECHOCARDIOGRAM LIMITED (09/05/2015 12:02 EDT) Specimen Narrative [facility] - 09/05/2015 12:59 EDT *Interpreting Group:* *[facility]* [address] [id number] ?? Date of study: 09/05/2015 ?? Transthoracic Echocardiography M-mode, limited 2D, limited spectral Dop pler, and color Doppler *STUDY CONCLUSIONS* Summary: 1. Left ventricle: The cavity size was n ormal. Systolic function was normal. The ?? estimated ejection fraction was 60-6 5%. 2. Right ventricle: The cavity size was mildly to moderately dilated. Systolic ?? function was normal. 3. Atrial septum: Echo contrast study sh owed no mpyew-ab-rkzj atrial level ?? shunt, at baseline or with provocati on. 4. Pulmonary arteries: Pulmonary systoli c pressure was mildly increased, in the ?? range of 35mm Hg to 40mm Hg. *PATIENT PRESENTATION* Height: ? () S/D Pressure: Weight: ? () BSA: Test start time: ??11:34 AM. Test stop time: ??11:42 AM. REFERRING ?Fabiano Aranda [employer]ED [employer] STOCK CLERK ??Jarrett Ortiz RDCS ADMITTING ?Neida Fisher ATTENDING ?Neida Fisher ORDERING ? George Vail PERFORMING ?? [facility], *PROCEDURE DATA* Procedure information: ??This study was interpreted by [facility]. Pertinent imag es and digital data are archived for permanent storage and are available for subsequent review. ??Study status: Routine. Transthoracic echocardiography. ??M-mode, limited 2D, limited spectral Doppler, and color Doppler. A Transthora cic Echocardiogram was performed. Scanning was performed from the paraster nal, apical, and subcostal acoustic windows. Images were obtained using a One[employer] IE33 5 cardiac ultrasound machine. Image quality was adequate. 20ml of Intr avenous contrast (agitated saline) was administered by MARTIN Allen RDCS to enhance delineation of left ventricular endocard ial borders. Prior to administration at least two (2) contiguous segments of the left ventricular border were not visualized. ??Study completion: ??The kali mcgee tolerated the procedure well. There were no complications. *INDICATIONS AND HISTORY* Indications: ?? Septicemia, Unspecified A41.9. *CARDIAC ANATOMY* Left ventricle: ??The cavity size was no rmal. Systolic function was normal. The estimated ejection fraction was 60-65%. Atrial septum: ?? Echo contrast study sh owed no nkgmc-qe-actb atrial level shunt, at baseline or with provocation. Right ventricle: ??The cavity size was m ildly to moderately dilated. Systolic function was normal. Tricuspid valve: ?? Doppler: ?? Mild reg urgitation. Pulmonary artery: ?? Pulmonary systolic pressure was mildly increased, in the range of 35mm Hg to 40mm Hg. Pericardium: ??There was no pericardial effusion. ?? I have personally reviewed the images an d have reviewed and edited the reported findings. Electronically signed by Jeremy Wade MD 09/05/2015 12:59 Procedure Note Jeremy Wade MD - 09/05/2015 *Interpreting Group:* *[facility]* [address] [place] [address] Date of study: 09/05/2015 Transthoracic Echocardiography M-mode, limited 2D, limited spectral Dop pler, and color Doppler *STUDY CONCLUSIONS* Summary: 1. Left ventricle: The cavity size was n ormal. Systolic function was normal. The estimated ejection fraction was 60-65%. 2. Right ventricle: The cavity size was mildly to moderately dilated. Systolic function was normal. 3. Atrial septum: Echo contrast study sh owed no mufmp-wb-lngm atrial level shunt, at baseline or with provocation. 4. Pulmonary arteries: Pulmonary systoli c pressure was mildly increased, in the range of 35mm Hg to 40mm Hg. *PATIENT PRESENTATION* Height: () S/D Pressure: Weight: () BSA: Test start time: 11:34 AM. Test stop time: 11:42 AM. REFERRING Fabiano Aranda B[employer]ED [employer] STOCK CLERK Jarrett Ortiz [facility] ADMITTING Neida Fisher ATTENDING Neida Fisher Joshua K PERFORMING [facility], *PROCEDURE DATA* Procedure information: This study was in terpreted by [facility]. Pertinent imag es and digital data are archived for permanent storage and are available for subsequent review. Study status: Routine. Transthoracic echocardiography. M-mode, limited 2D, limited spectral Doppler, and color Doppler. A Transthora cic Echocardiogram was performed. Scanning was performed from the paraster nal, apical, and subcostal acoustic windows. Images were obtained using a One[employer]of IE33 5 cardiac ultrasound machine. Image quality was adequate. 20ml of Intr avenous contrast (agitated saline) was administered by MARTIN Allen RDCS to enhance delineation of left ventricular endocard ial borders. Prior to administration at least two (2) contiguous segments of the left ventricular border were not visualized. Study completion: The patien t tolerated the procedure well. There were no complications. *INDICATIONS AND HISTORY* Indications: Septicemia, Unspecified A41 .9. *CARDIAC ANATOMY* Left ventricle: The cavity size was norm al. Systolic function was normal. The estimated ejection fraction was 60-65%. Atrial septum: Echo contrast study showe d no imhbm-hr-jcff atrial level shunt, at baseline or with provocation. Right ventricle: The cavity size was mil dly to moderately dilated. Systolic function was normal. Tricuspid valve: Doppler: Mild regurgita tion. Pulmonary artery: Pulmonary systolic pre ssure was mildly increased, in the range of 35mm Hg to 40mm Hg. Pericardium: There was no pericardial ef fusion. I have personally reviewed the images an d have reviewed and edited the reported findings. Electronically signed by Jeremy Wade MD 09/05/2015 12:59 Performing Organization Address [facility] Phon e Number [facility] LIPID PROFILE (INCLUDES CHOLESTEROL, TRIGLYCERIDES, HDL, LDL) (09/05/2015 3:06 EDT) Cholesterol 138 mg/dl [facility] Comment: LABORATORY Desirable:<200 SERVICES Borderline High:200-239 High:>qt=397 Triglycerides 180 mg/dl [facility] Comment: LABORATORY Normal:<150 SERVICES Borderline High:150-199 High:200-499 Very High:>fq=358 HDL 35 mg/dl [facility] Comment: LABORATORY Low:<40 SERVICES Normal:40-60 Desirable: >60 LDL, Calculated 67 mg/dl [facility] Comment: LABORATORY Optimal:<100 SERVICES Near Optimal:100-129 Borderline High:130-159 High:160-189 Very High:>gx=979 Chol/HDL Ratio 3.9 [facility] Fasting? Unknown [facility] Non HDL Cholesterol 103 mg/dl [facility] Comment: LABORATORY Desirable:<130 SERVICES Borderline:130-159 High: 160-189 Very High: >uq=700 Specimen Blood specimen (specimen) - Blood Performing Organization Address [facility] Phon e Number [facility] [address] [place] [address] SERVICES TOTAL & DIRECT BILIRUBIN (09/05/2015 3:06 EDT) Pathologist Sig nature Conjugated Bilirubin 0.0 0.0 - 0.3 mg/dl [facility] Unconjugated Bilirubin 0.4 0.0 - 1.1 mg/dl [facility] SERVICES Bilirubin, Total 1.0 <1.4 mg/dl [facility] Specimen Blood specimen (specimen) - Blood Performing Organization Address [facility] Phon e Number [facility] [address] [id number] SERVICES ALKALINE PHOSPHATASE (09/05/2015 3:06 EDT) Pathologist Sig nature Total Alkaline 94 38 - 126 U/L [facility] Phosphatase LABORATORY SERVICES Specimen Blood specimen (specimen) - Blood Performing Organization Address City/State/ZIP Code Phon e Number [facility] [address] [place] [address] SERVICES (ABNORMAL) PHOSPHORUS (09/05/2015 3:06 EDT) Pathologist Sig nature Phosphorus 2.1 (L) 2.5 - 4.5 mg/dl [facility] Specimen Blood specimen (specimen) - Blood Performing Organization Address City/[facility]/ZIP Code Phon e Number [facility] [address] [place] [address] SERVICES MAGNESIUM (09/05/2015 3:06 EDT) Pathologist Sig nature Magnesium 2.0 1.7 - 2.8 mg/dl [facility]A T[facility] SERVICES Specimen Blood specimen (specimen) - Blood Performing Organization Address City/[facility]/ZIP Code Phon e Number [facility] [address] [place] [address] SERVICES (ABNORMAL) ALT (09/05/2015 3:06 EDT) Pathologist Sig nature ALT 54 (H) <53 U/L [facility] LABORATOR Y SERVICES Specimen Blood specimen (specimen) - Blood Performing Organization Address City/[facility]/ZIP Code Phon e Number [facility] [address] [place] [address] SERVICES (ABNORMAL) AST (09/05/2015 3:06 EDT) Pathologist Sig nature AST 52 (H) 15 - 46 U/L [facility] Y SERVICES Specimen Blood specimen (specimen) - Blood Performing Organization Address City/[facility]/ZIP Code Phon e Number [facility] [address] [place] [address] SERVICES BUN (09/05/2015 3:06 EDT) Pathologist Sig nature BUN 15 10 - 26 mg/dl [facility] LABORATO RY SERVICES Specimen Blood specimen (specimen) - Blood Performing Organization Address City/[facility]/ZIP Code Phon e Number [facility] [address] [place] [address] SERVICES CREATININE (09/05/2015 3:06 EDT) Creatinine 0.79 0.52 - 1.04 [facility] mg/dl LABORATORY SERVICES GFR, Calculated 75 >60 [facility] Comment: ml/min/1.73m2 LABORATORY eGFR calculated using CKD-EPI equation for SERVICES non Americans. Multiply eGFR by 1.16 for Americans. Specimen Blood specimen (specimen) - Blood Performing Organization Address City/State/ZIP Code Phon e Number [facility] [address] [place] [address] SERVICES (ABNORMAL) CALCIUM, IONIZED (09/05/2015 3:06 EDT) Pathologist Sig nature Calcium, Ionized 1.08 (L) 1.12 - 1.32 [facility] mmol/L LABORATORY SERVICES Specimen Blood specimen (specimen) - Blood Performing Organization Address City/State/ZIP Code Phon e Number [facility] [address] [place] [address] SERVICES (ABNORMAL) ELECTROLYTES (09/05/2015 3:06 EDT) Pathologist Sig nature Sodium 142 136 - 145 mEq/L [facility]A T[facility] SERVICES Potassium 3.3 (L) 3.5 - 5.0 mEq/L [facility] LABORA TORY SERVICES Chloride 105 96 - 110 mEq/L [facility] LABORAT ORY SERVICES CO2 26 24 - 32 mEq/L [facility] LABORATO RY SERVICES Specimen Blood specimen (specimen) - Blood Performing Organization Address City/[facility]/ZIP [facility] Phon e Number [facility] [address] [place] [address] SERVICES (ABNORMAL) HEMAGRAM AND DIFFERENTIAL (09/05/2015 3:06 EDT) Pathologist Sig nature WBC 17.81 (H) 4.0 - 12.4 K/cmm [facility] RBC 3.42 (L) 3.86 - 5.04 [facility] M/[facility] LABORATORY SERVICES Hemoglobin 10.2 (L) 11.6 - 15.2 [facility] gm/dl LABORATORY SERVICES HCT 31.1 (L) 34.9 - 44.4 % [facility] SERVICES MCV 91 81 - 98 fl [facility] SERVICES MCH 29.8 26.7 - 33.3 pg [facility] SERVICES MCHC 32.8 32.1 - 35.9 [facility] gm/dl LABORATORY SERVICES RDW-CV 15.0 (H) 11.7 - 14.6 % [facility] SERVICES RDW-SD 50.4 (H) 37.6 - 50.3 fl [facility] SERVICES PLT 96 (L) 141 - 377 K/cmm [facility] MPV 10.8 9.5 - 12.7 fl [facility] Neutrophils 75.0 % [facility]AT[facility] SERVICES Bands 13.0 % [facility] Lymphocytes 9.0 % [facility] Monocytes 2.0 % [facility] Eosinophils 1.0 % [facility] ABS Neutrophils 13.35 (H) 2.20 - 8.85 [facility] K/cmm LABORATORY SERVICES ABS Bands 2.32 K/cmm [facility]ATORY SERVICES ABS Lymphs 1.60 1.09 - 3.30 [facility] LABORATORY SERVICES ABS Monocytes 0.36 0.1 - 0.8 K/cmm [facility] SERVICES ABS Eosinophils 0.18 0.03 - 0.61 [facility] LABORATORY SERVICES Toxic Granulation Present [facility] Type of Diff: Manual [facility] Specimen Blood specimen (specimen) - Blood Performing Organization Address City/State/ZIP Code Phon e Number [facility] [address] [place] [address] SERVICES ECHOCARDIOGRAM (09/04/2015 10:49 EDT) Specimen Narrative [facility] - 09/04/2015 11:37 EDT *Interpreting Group:* *[facility]* [address] [place] [address] ?? Date of study: 09/04/2015 ?? Transthoracic Echocardiography M-mode, complete 2D, complete spectral D oppler, and color Doppler *STUDY CONCLUSIONS* Summary: 1. Left ventricle: The cavity size was n ormal. Wall thickness was normal. ?? Systolic function was normal. The es timated ejection fraction was 60-65%. ?? Wall motion was normal; there were n o regional wall motion abnormalities. 2. Right ventricle: The cavity size was moderately dilated. Wall thickness was ?? normal. Systolic function was normal . 3. Tricuspid valve: Mild-moderate regurg itation. 4. Pulmonary arteries: Pulmonary systoli c pressure was mildly increased, >= 45mm ?? Hg. *PATIENT PRESENTATION* Height: ? 160cm (63in ) S/D Pressure: Weight: ? 91.6kg (201.6lb ) BSA: ?2.06m^2 Test start time: ??10:15 AM. Test stop time: ??10:45 AM. REFERRING ?Fabiano Aranda ADMITTING ?Neida Fisher ATTENDING ?Neida Fisher [employer] STOCK CLERK ??Rula Cochran PERFORMING ?? [facility], [facility] ORDERING ? Rony Leach *PROCEDURE DATA* Procedure information: ??This study was interpreted by [facility]. Pertinent imag es and digital data are archived for permanent storage and are available for subsequent review. ??Study status: Routine. Transthoracic echocardiography. ??M-mode, complete 2D, complete spectral Doppler, and color Doppler. A Transthora cic Echocardiogram was performed. Scanning was performed from the paraster nal, apical, subcostal, and suprasternal notch acoustic windows. Images were obta ined using an [employer] [place] 9 cardiac ultrasound machine. Image quality was adequate. The study was technically limited due to body habitus. ??Study completion: ??The patient tolerated the procedure well. *INDICATIONS AND HISTORY* Indications: ?? Shock, Unspecified R57.9 . ??Septicemia, Unspecified A41.9. ?? *CARDIAC ANATOMY* Left ventricle: ??The cavity size was no rmal. Wall thickness was normal. Systolic function was normal. The estimated eject ion fraction was 60-65%. Wall motion was normal; there were no regional wall jean-claude on abnormalities. Doppler parameters are consistent with abnormal left ventricula r relaxation (grade 1 diastolic dysfunction). Doppler parameters are con sistent with high ventricular filling pressure. Aortic valve: ?? Trileaflet; normal thic kness leaflets. Mobility was not restricted. ??Doppler: ??Transvalvular v elocity was within the normal range. There was no stenosis. ??No regurgitation. Aorta: ??Aortic root: The aortic root wa s normal in size. Mitral valve: ?? Structurally normal jules ve. ?? Mobility was not restricted. Doppler: ??Transvalvular velocity was wi thin the normal range. There was no evidence for stenosis. ??No regurgitatio n. ?Peak gradient: 4.8mm Hg (D). Left atrium: ??The atrium was normal in size. Right ventricle: ??The cavity size was m oderately dilated. Wall thickness was normal. Systolic function was normal. Pulmonic valve: ?Structurally normal valve. ?Doppler: ??Transvalvular velocity was within the normal range. Th ere was no evidence for stenosis. ??No regurgitation. Tricuspid valve: ?? Structurally normal valve. ?Doppler: ??Transvalvular velocity was within the normal range. Th ere was no evidence for stenosis. Mild-moderate regurgitation. Pulmonary artery: ?? Pulmonary systolic pressure was mildly increased, >= 45mm Hg. Right atrium: ??The atrium was normal in size. Pericardium: ??There was no pericardial effusion. Systemic veins: Inferior vena cava: The vessel was dilat ed; the respirophasic diameter changes were blunted (less than 50%); findings a re consistent with elevated central venous pressure. *MEASUREMENT TABLES* 2D measurements ? Normal Left ventricle Volume, ED, MOD, 1-plane ?68.5 ml ? ------- Ejection fraction, MOD, 1-plane ? 59.9 % ?------- Volume index, ED, MOD, 1-plane ?33 ml/m^2 ------- Volume, ED, MOD, 2-plane ?72.2 ml ? 55-101 Ejection fraction, MOD, 2-plane ? 61.8 % ?------- Volume index, ED, MOD, 2-plane ?35 ml/m^2 ------- Aorta Root diameter, ED ? 27 mm ? ------- Ascending aorta anterior-posterior diame ter, S ?33 mm ? ------- Left atrium Anterior-posterior dimension ?26 mm ? ------- Anterior-posterior dimension index ?1.26 cm/m^2 <2.2 Superior-inferior dimension, A4C ? *26 mm ? 29-53 ?? M-mode measurements ? Normal Left ventricle LV internal dimension, ED ? 52.6 mm ? 37-56 LV internal dimension, ES ? 29.4 mm ? ------- Fractional shortening ? 44 % ?29-45 LV posterior wall, ED ?9.3 mm ? 6-11 Septal/posterior wall ratio, ED ?0.7 ?------- Relative wall thickness, ED ?0.4 ?<0.45 Volume, ED, Teichholz ?133 ml ? ------- Volume, ES, Teichholz ? 33.3 ml ? ------- Ejection fraction, Teichholz ?75 % ?64-83 Volume index, ED, Teichholz ? 65 ml/m^2 ------- Volume index, ES, Teichholz ? 16 ml/m^2 ------- Wall mass ?149.4 g ?------- Wall mass index ? 72.5 g/m^2 ??------- Mass/height ? 0.93 g/cm ?? ------- Ventricular septum Septal thickness, ED ? 6.8 mm ? ------- Septal thickness, ES ? 6.4 mm ? ------- Septal fractional thickening ?*5 % ?18-53 ?? Doppler measurements ?Normal Left ventricle IVRT ?60 ms ? 60-100 E/Ea, lateral annulus, tissue Doppler ? 15.6 ?------- Mitral valve Peak E-wave velocity ? 110 cm/s ?? ------- Peak A-wave velocity ? 110 cm/s ?? ------- Deceleration time ? *134 ms ? 150-230 Peak gradient, D ? 4.8 mm Hg ??------- Peak E/A ratio ? 1 ?------- Legend: Mean values are shown as u=mean value. Asterisk (*) hicks values outside specif ied normal range. I have personally reviewed the images an d have reviewed and edited the reported findings. Electronically signed by Lopez Munoz 09/04/2015 11:37 Procedure Note Lopez Munoz MD - 09/04/2015 *Interpreting Group:* *[facility]* [address] [place] [address] Date of study: 09/04/2015 Transthoracic Echocardiography M-mode, complete 2D, complete spectral D oppler, and color Doppler *STUDY CONCLUSIONS* Summary: 1. Left ventricle: The cavity size was n ormal. Wall thickness was normal. Systolic function was normal. The estim ated ejection fraction was 60-65%. Wall motion was normal; there were no r egional wall motion abnormalities. 2. Right ventricle: The cavity size was moderately dilated. Wall thickness was normal. Systolic function was normal. 3. Tricuspid valve: Mild-moderate regurg itation. 4. Pulmonary arteries: Pulmonary systoli c pressure was mildly increased, >= 45mm Hg. *PATIENT PRESENTATION* Height: 160cm (63in ) S/D Pressure: Weight: 91.6kg (201.6lb ) BSA: 2.06m^2 Test start time: 10:15 AM. Test stop time: 10:45 AM. REFERRING Fabiano Aranda ADMITTING Neida Fisher ATTENDING Neida Fisher B[employer] STOCK CLERKRula Crook PERFORMING [facility], ORDERING Rony Leach *PROCEDURE DATA* Procedure information: This study was in terpreted by [facility]. Pertinent imag es and digital data are archived for permanent storage and are available for subsequent review. Study status: Routine. Transthoracic echocardiography. M-mode, complete 2D, complete spectral Doppler, and color Doppler. A Transthora cic Echocardiogram was performed. Scanning was performed from the paraster nal, apical, subcostal, and suprasternal notch acoustic windows. Images were obta ined using an [employer] 9 cardiac ultrasound machine. Image quality was adequate. The study was technically limited due to body habitus. Study completion: The ac ent tolerated the procedure well. *INDICATIONS AND HISTORY* Indications: Shock, Unspecified R57.9. S epticemia, Unspecified A41.9. *CARDIAC ANATOMY* Left ventricle: The cavity size was norm al. Wall thickness was normal. Systolic function was normal. The estimated eject ion fraction was 60-65%. Wall motion was normal; there were no regional wall jean-claude on abnormalities. Doppler parameters are consistent with abnormal left ventricula r relaxation (grade 1 diastolic dysfunction). Doppler parameters are con sistent with high ventricular filling pressure. Aortic valve: Trileaflet; normal thickne ss leaflets. Mobility was not restricted. Doppler: Transvalvular veloc ity was within the normal range. There was no stenosis. No regurgitation. Aorta: Aortic root: The aortic root was normal in size. Mitral valve: Structurally normal valve. Mobility was not restricted. Doppler: Transvalvular velocity was with in the normal range. There was no evidence for stenosis. No regurgitation. Peak gradient: 4.8mm Hg (D). Left atrium: The atrium was normal in si ze. Right ventricle: The cavity size was mod erately dilated. Wall thickness was normal. Systolic function was normal. Pulmonic valve: Structurally normal valv e. Doppler: Transvalvular velocity was within the normal range. Th ere was no evidence for stenosis. No regurgitation. Tricuspid valve: Structurally normal jules ve. Doppler: Transvalvular velocity was within the normal range. Th ere was no evidence for stenosis. Mild-moderate regurgitation. Pulmonary artery: Pulmonary systolic pre ssure was mildly increased, >= 45mm Hg. Right atrium: The atrium was normal in s ize. Pericardium: There was no pericardial ef fusion. Systemic veins: Inferior vena cava: The vessel was dilat ed; the respirophasic diameter changes were blunted (less than 50%); findings a re consistent with elevated central venous pressure. *MEASUREMENT TABLES* 2D measurements Normal Left ventricle Volume, ED, MOD, 1-plane 68.5 ml ------- Ejection fraction, MOD, 1-plane 59.9 % - ------ Volume index, ED, MOD, 1-plane 33 ml/m^2 ------- Volume, ED, MOD, 2-plane 72.2 ml 55-101 Ejection fraction, MOD, 2-plane 61.8 % - ------ Volume index, ED, MOD, 2-plane 35 ml/m^2 ------- Aorta Root diameter, ED 27 mm ------- Ascending aorta anterior-posterior diame ter, S 33 mm ------- Left atrium Anterior-posterior dimension 26 mm ----- -- Anterior-posterior dimension index 1.26 cm/m^2 <2.2 Superior-inferior dimension, A4C *26 mm 29-53 M-mode measurements Normal Left ventricle LV internal dimension, ED 52.6 mm 37-56 LV internal dimension, ES 29.4 mm ------ - Fractional shortening 44 % 29-45 LV posterior wall, ED 9.3 mm 6-11 Septal/posterior wall ratio, ED 0.7 ---- --- Relative wall thickness, ED 0.4 <0.45 Volume, ED, Teichholz 133 ml ------- Volume, ES, Teichholz 33.3 ml ------- Ejection fraction, Teichholz 75 % 64-83 Volume index, ED, Teichholz 65 ml/m^2 -- ----- Volume index, ES, Teichholz 16 ml/m^2 -- ----- Wall mass 149.4 g ------- Wall mass index 72.5 g/m^2 ------- Mass/height 0.93 g/cm ------- Ventricular septum Septal thickness, ED 6.8 mm ------- Septal thickness, ES 6.4 mm ------- Septal fractional thickening *5 % 18-53 Doppler measurements Normal Left ventricle IVRT 60 ms 60-100 E/Ea, lateral annulus, tissue Doppler 15 .6 ------- Mitral valve Peak E-wave velocity 110 cm/s ------- Peak A-wave velocity 110 cm/s ------- Deceleration time *134 ms 150-230 Peak gradient, D 4.8 mm Hg ------- Peak E/A ratio 1 ------- Legend: Mean values are shown as u=mean value. Asterisk (*) hicks values outside specif ied normal range. I have personally reviewed the images an d have reviewed and edited the reported findings. Electronically signed by Lopez Munoz 09/04/2015 11:37 Performing Organization Address [facility]/ZIP Code Phon e Number [facility] (ABNORMAL) TROPONIN I (09/04/2015 3:18 EDT) Pathologist Sig nature Troponin I (ng/mL) 0.289 (H) <0.034 ng/ml [facility] LABORATORY SERVICES Specimen Blood specimen (specimen) - Blood Performing Organization Address [facility]/ZIP Code Phon e Number [facility] [address] [place] [address] SERVICES TOTAL & DIRECT BILIRUBIN (09/04/2015 3:18 EDT) Pathologist Sig nature Conjugated Bilirubin 0.0 0.0 - 0.3 mg/dl [facility] SERVICES Unconjugated Bilirubin 0.3 0.0 - 1.1 mg/dl [facility] LABORATORY SERVICES Bilirubin, Total 1.1 <1.4 mg/dl [facility] SERVICES Specimen Blood specimen (specimen) - Blood Performing Organization Address [facility]/ZIP Code Phon e Number [facility] [address] [place] [address] SERVICES ALKALINE PHOSPHATASE (09/04/2015 3:18 EDT) Pathologist Sig nature Total Alkaline 85 38 - 126 U/L [facility] Phosphatase LABORATORY SERVICES Specimen Blood specimen (specimen) - Blood Performing Organization Address City/[facility]/ZIP Code Phon e Number [facility] [address] [place] [address] SERVICES PHOSPHORUS (09/04/2015 3:18 EDT) Pathologist Sig nature Phosphorus 2.5 2.5 - 4.5 mg/dl [facility] LABORA TORY SERVICES Specimen Blood specimen (specimen) - Blood Performing Organization Address [facility]/ZIP Code Phon e Number [facility] [address] [place] [address] SERVICES MAGNESIUM (09/04/2015 3:18 EDT) Pathologist Sig nature Magnesium 1.7 1.7 - 2.8 mg/dl [facility] LABORA TORY SERVICES Specimen Blood specimen (specimen) - Blood Performing Organization Address [facility]/ZIP Code Phon e Number [facility] [address] [place] [address] SERVICES (ABNORMAL) ALT (09/04/2015 3:18 EDT) Pathologist Sig nature ALT 68 (H) <53 U/L [facility] LABORATOR Y SERVICES Specimen Blood specimen (specimen) - Blood Performing Organization Address [facility] Phon e Number [facility] [address] [place] [address] SERVICES (ABNORMAL) AST (09/04/2015 3:18 EDT) Pathologist Sig nature AST 73 (H) 15 - 46 U/L [facility] LABORATOR Y SERVICES Specimen Blood specimen (specimen) - Blood Performing Organization Address [facility] Phon e Number [facility] [address] [place] [address] SERVICES BUN (09/04/2015 3:18 EDT) Pathologist Sig nature BUN 16 10 - 26 mg/dl [facility] LABORATO RY SERVICES Specimen Blood specimen (specimen) - Blood Performing Organization Address [facility] Phon e Number [facility] [address] [place] [address] SERVICES CREATININE (09/04/2015 3:18 EDT) Creatinine 0.82 0.52 - 1.04 [facility] mg/dl LABORATORY SERVICES GFR, Calculated 72 >60 [facility] Comment: ml/min/1.73m2 LABORATORY eGFR calculated using CKD-EPI equation for SERVICES non Americans. Multiply eGFR by 1.16 for Americans. Specimen Blood specimen (specimen) - Blood Performing Organization Address City/[facility]/ZIP [facility] Phon e Number [facility] [address] [place] [address] SERVICES (ABNORMAL) CALCIUM, IONIZED (09/04/2015 3:18 EDT) Pathologist Sig nature Calcium, Ionized 0.96 (L) 1.12 - 1.32 [facility] mmol/L LABORATORY SERVICES Specimen Blood specimen (specimen) - Blood Performing Organization Address [facility]/ZIP [facility] Phon e Number [facility] [address] [place] [address] SERVICES (ABNORMAL) ELECTROLYTES (09/04/2015 3:18 EDT) Pathologist Sig nature Sodium 142 136 - 145 mEq/L [facility] LABORA TORY SERVICES Potassium 3.8 3.5 - 5.0 mEq/L [facility] LABORA TORY SERVICES Chloride 111 (H) 96 - 110 mEq/L [facility] LABORAT ORY SERVICES CO2 21 (L) 24 - 32 mEq/L [facility] LABORATO RY SERVICES Specimen Blood specimen (specimen) - Blood Performing Organization Address City/State/ZIP Code Phon e Number [facility] [address] [place] [address] SERVICES (ABNORMAL) HEMAGRAM AND DIFFERENTIAL (09/04/2015 3:18 EDT) Pathologist Sig nature WBC 23.58 (H) 4.0 - 12.4 K/cmm [facility] LABORATORY SERVICES RBC 3.47 (L) 3.86 - 5.04 [facility] M/[facility] LABORATORY SERVICES Hemoglobin 10.4 (L) 11.6 - 15.2 [facility] gm/dl LABORATORY SERVICES HCT 31.8 (L) 34.9 - 44.4 % [facility] LABORATORY SERVICES MCV 92 81 - 98 fl [facility] LAB[facility] SERVICES MCH 30.0 26.7 - 33.3 pg [facility] LABORAT[facility] SERVICES MCHC 32.7 32.1 - 35.9 [facility] gm/dl LABORATORY SERVICES RDW-CV 15.1 (H) 11.7 - 14.6 % [facility] LABORATORY SERVICES RDW-SD 50.3 37.6 - 50.3 fl [facility] LABORAT[facility] SERVICES PLT 110 (L) 141 - 377 K/cmm [facility] LAB[facility] SERVICES MPV 10.3 9.5 - 12.7 fl [facility] SERVICES Neutrophils 79.0 % [facility] SERVICES Bands 18.0 % [facility] SERVICES Monocytes 3.0 % [facility] LABORAT[facility] SERVICES ABS Neutrophils 18.63 (H) 2.20 - 8.85 [facility] K/cmm LABORATORY SERVICES ABS Bands 4.24 [facility] ABS Monocytes 0.71 0.1 - 0.8 K/[facility] LABORATORY SERVICES Toxic Granulation Present [facility] LABORATORY SERVICES Type of Diff: Manual [facility] LABORATORY SERVICES Specimen Blood specimen (specimen) - Blood Performing Organization Address City/[facility]/ZIP Code Phon e Number [facility] [address] [place] [address] SERVICES (ABNORMAL) TROPONIN I (09/04/2015 1:42 EDT) Pathologist Sig nature Troponin I (ng/mL) 0.330 (H) <0.034 ng/ml [facility] LABORAT[facility] SERVICES Specimen Blood specimen (specimen) - Blood Performing Organization Address City/[facility]/ZIP Code Phon e Number [facility] [address] [place] [address] SERVICES LACTIC ACID (09/04/2015 1:42 EDT) Pathologist Sig nature Lactic Acid 1.3 <2.0 mmol/L [facility] LABORATOR Y SERVICES Specimen Blood specimen (specimen) - Blood Performing Organization Address [facility]/ZIP Code Phon e Number [facility] [address] [place] [address] SERVICES EKG 12-LEAD (09/03/2015 21:06 EDT) Specimen Narrative [facility] EKG - 09/04/2015 11:5 5 EDT ? The ? Test Date: ?2015-09-03 Pat Name: ? JOY CUNHA ?Department: ?? COTE 3 ? Room: ? M326 Gender: ? F ?Critical Care Cns: ?? [id number] : ?1940 ? Requested By: ELISHA ALEMAN Order Number: [id number] ? Reading : ?? ANNELISE CASTILLO MD ? Measurements Intervals ?Reading ? Rate: ? 95 ? P: ?-7 WA: ? 202 ?QRS: ?-14 QRSD: ? 93 ? T: ?31 QT: ? 382 ? QTc: ?482 ? Interpretive Statements SINUS RHYTHM Compared to ECG 09/03/2015 13:10:05 No significant changes Edited by JOEL ESCALONA MD on 09-03-15 23:10:50 EDT. I have reviewed the tracing and have eit her agreed or edited the findings in this report. I reviewed the tracing and have either a greed or edited the findings in this report. Electronically Signed On 6 11:55:36 EDT by ANNELISE CASTILLO MD. Procedure Note Annelise Castillo MD - 09/04/2015 [facility] Test Date: 2015-09-03 Pat Name: JOY CUNHA Department: [facility] Room: [facility] Gender: F Critical Care Cns: [id number] : [id number] Requested By: ELISHA ALEMAN Order Number: [id number] Reading MD: Merrill CASTILLO MD Measurements Intervals Reading Rate: 95 P: -7 WA: 202 QRS: -14 QRSD: 93 T: 31 QT: 382 QTc: 482 Interpretive Statements SINUS RHYTHM Compared to ECG 09/03/2015 13:10:05 No significant changes Edited by JOEL ESCALONA MD on 09-03-15 23:10:50 EDT. I have reviewed the tracing and have eit her agreed or edited the findings in this report. I reviewed the tracing and have either a greed or edited the findings in this report. Electronically Signed On 6 11:55:36 EDT by ANNELISE CASTILLO MD. Performing Organization Address City/[facility]/ZIP Code Phon e Number [facility] EKG (ABNORMAL) TROPONIN I (09/03/2015 19:30 EDT) Pathologist Sig nature Troponin I (ng/mL) 0.334 (H) <0.034 ng/ml [facility] LABORATORY SERVICES Specimen Blood specimen (specimen) - Blood Performing Organization Address [facility]/ZIP Code Phon e Number [facility] [address] [place] [address] SERVICES LACTIC ACID (09/03/2015 19:30 EDT) Pathologist Sig nature Lactic Acid 1.4 <2.0 mmol/L [facility] LABORATOR Y SERVICES Specimen Blood specimen (specimen) - Blood Performing Organization Address [facility]/ZIP Code Phon e Number [facility] [address] [place] [address] SERVICES PORTABLE CHEST 1 VIEW (09/03/2015 17:02 EDT) Anatomical Region Laterality Modality Other Specimen Narrative [facility] - 09/03/2015 17:15 EDT PORTABLE CHEST 1 VIEW ??09/03/2015 5:02 PM Clinical History/Comments: ICU PT, RECENT TUBE OR CATHETER INSERT, Right IJ CVC placement Comparison: Outside hospital chest radiograph dated 09/03/2015. Findings: Single nearly supine portable AP view of the chest. Lines/tubes: ??A right internal jugular catheter tip projects near the expected location of the intracaval junction. Soft tissues and bones: No significant a bnormalities. Cardiac and mediastinal contours: Indist inct. Lungs and pleura: Lung volumes are low. The pulmonary vasculature is indistinct. Dense and patchy perihilar o pacities, right greater than left, have progressed since earlier toda y. Impression: 1. ??A right internal jugular central ve nous catheter tip projects in the expected location of the atriocaval junction. 2. ??Increasing perihilar airspace opaci ties, right greater than left. I have personally reviewed the images an d the above interpretation and agree with the findings. Procedure Note Anthony Rojas MD - 09/03/2015 PORTABLE CHEST 1 VIEW 09/03/2015 5:02 PM Clinical History/Comments: ICU PT, RECENT TUBE OR CATHETER INSERT, Right IJ CVC placement Comparison: Outside hospital chest radiograph dated 09/03/2015. Findings: Single nearly supine portable AP view of the chest. Lines/tubes: A right internal jugular ca theter tip projects near the expected location of the intracaval junction. Soft tissues and bones: No significant a bnormalities. Cardiac and mediastinal contours: Indist inct. Lungs and pleura: Lung volumes are low. The pulmonary vasculature is indistinct. Dense and patchy perihilar o pacities, right greater than left, have progressed since earlier toda y. Impression: 1. A right internal jugular central veno us catheter tip projects in the expected location of the atriocaval junction. 2. Increasing perihilar airspace opaciti es, right greater than left. I have personally reviewed the images an d the above interpretation and agree with the findings. Performing Organization Address City/State/ZIP Code Phon e Number [facility] RAD US ABDOMEN ONE ORGAN/QUADRANT (09/03/2015 14:34 EDT) Anatomical Region Laterality Modality Other Specimen Narrative [facility] - 09/03/2015 16:17 EDT RAD US ABDOMEN ONE ORGAN/QUADRANT ??09/03/2015 2:34 PM Signs and Symptoms/Comments: abdominal p ain Comparison: CT abdomen/pelvis performed [address] [facility]. Technique: Grayscale and limited Doppler ultrasound evaluation of the right upper quadrant was performed. Findings: The visualized pancreas appears normal. There is no pancreatic ductal dilatation identified. The liver measures 20.1 cm in length, wh ich is enlarged. The liver is diffusely increased in echogenicity, consistent with hepatic steatosis. There is no intrahepatic or extrahepatic biliary ductal dilatation; the common bile duct measured at the por ta hepatis is 5 mm in diameter, which is normal. There are no shadowing calculi identifie d within the gallbladder. There are areas of gallbladder wall thic kening which measure up to 5 mm in maximal thickness. No pericholecys tic fluid is identified. Per helper maintenance cleaning's report, while there is no focal tenderness upon scanning in the gallbladder, no is made of pressure in the area of the transducer. The right kidney measures 12.8 cm in jennifer gth and is normal in echotexture. No right-sided hydronephros is, mass or calculus are identified. No perinephric fluid collect ions are present. The proximal abdominal aorta and IVC dustin ear normal. Impression: 1. While there are no shadowing calculi identified within the gallbladder and no evidence of perichole cystic fluid, gallbladder wall thickening can be seen in the setti ng of acute cholecystitis. Further evaluation with nuclear medicine HIDA scan may be warranted as clinically appropriate. 2. Hepatic steatosis and hepatomegaly. These findings were discussed with SAMANTHA GO MD ??by Dr. Tawanda Coyle on 09/03/2015 3:49 PM. ?? I have personally reviewed the images an d the above interpretation and agree with the findings. Procedure Note Radha Celestin MD - 09/03/2015 RAD US ABDOMEN ONE ORGAN/QUADRANT 09/03/19 16 2:34 PM Signs and Symptoms/Comments: abdominal p ain Comparison: CT abdomen/pelvis performed [address] [facility]. Technique: Grayscale and limited Doppler ultrasound evaluation of the right upper quadrant was performed. Findings: The visualized pancreas appears normal. There is no pancreatic ductal dilatation identified. The liver measures 20.1 cm in length, wh ich is enlarged. The liver is diffusely increased in echogenicity, consistent with hepatic steatosis. There is no intrahepatic or extrahepatic biliary ductal dilatation; the common bile duct measured at the por ta hepatis is 5 mm in diameter, which is normal. There are no shadowing calculi identifie d within the gallbladder. There are areas of gallbladder wall thic kening which measure up to 5 mm in maximal thickness. No pericholecys tic fluid is identified. Per helper maintenance cleaning's report, while there is no focal tenderness upon scanning in the gallbladder, no is made of pressure in the area of the transducer. The right kidney measures 12.8 cm in jennifer gth and is normal in echotexture. No right-sided hydronephros is, mass or calculus are identified. No perinephric fluid collect ions are present. The proximal abdominal aorta and IVC dustin ear normal. Impression: 1. While there are no shadowing calculi identified within the gallbladder and no evidence of perichole cystic fluid, gallbladder wall thickening can be seen in the setti ng of acute cholecystitis. Further evaluation with nuclear medicine HIDA scan may be warranted as clinically appropriate. 2. Hepatic steatosis and hepatomegaly. These findings were discussed with SAMANTHA GO MD by Dr. Tawanda Coyle on 09/03/2015 3:49 PM. I have personally reviewed the images an d the above interpretation and agree with the findings. Performing Organization Address City/State/ZIP Code Phon e Number [facility] MRSA PCR (09/03/2015 13:48 EDT) Specimen Nasal [facility] LABORATORY SERVICES Result No Staphylococcus [facility] aureus detected by [facility] PCR. SERVICES Specimen Other Performing Organization Address City/State/ZIP Code Phon e Number [facility] [address] [place] [address] SERVICES [address]ARY READ BODY [address] (09/03/2015 13:23 EDT) Anatomical Region Laterality Modality Other Specimen Narrative [facility] - 09/03/2015 16:57 EDT [address] BODY [address] ??09/03/2015 1:23 PM Signs and Symptoms/Comments: ?? Clinical Presentation Inconsistent with Outside Imaging Interpretation; minimal abdominal pain, OSH report with concern for appedicitis and cholecytitis, phelgmon, ? drainable collection Technique: CT of the abdomen and pelvis was performed at [facility]. Secondary interpretation is performed at the request of the acute care surgery service. Comparison: None Findings: Lower chest: Mild intralobular septal th ickening is seen within the bases suggestive of interstitial pulmona ry edema. Hepatobiliary: Unenhanced images of the liver are unremarkable. No intrahepatic biliary duct dilatation is identified. The gallbladder shows a thin zone of stranding/wall thic kening peripherally measuring approximately 4 mm. Dense debr is is dependent within the gallbladder, likely representing small s tones. The gallbladder does not appear distended. Spleen, pancreas, adrenal glands: Aside from partial fatty replacement of the pancreas, the unenhan gavi appearance of these is unremarkable. Kidneys, ureters, bladder: The unenhance d kidneys are symmetric without stones or evidence of hydronephr osis. The ureters are nondilated. The bladder is decompressed with a Jade catheter placed. Uterus, ovaries: The uterus has an age-a ppropriate appearance. The left upper ovary is normal. The right ov marycruz and adnexa are intimately involved with the area of abn ormal bowel. There is fat stranding preventing discrete delineatio n of structures. There is, however a tubular or multiloculated cyst ic structure measuring 5.7 x 4.1 x 5.0 cm immediately superior to the uterus in the midline. There is stranding adjacent to the right lateral portion of this, the majority of this cystic structure is bordered by clean fat. Bowel: There is no evidence of bowel obs truction. In the region of the cecum and adjacent small bowel is th ickening with adjacent fat stranding limiting discernment of discre te structures. The appendix is not definitively identified. No dilat ed tubular structure with the appearance of an enlarged appendix i s identified. No calcified appendicolith. Likewise, no adjacent flu id collections are seen. No foci of extraluminal air are identified in this region. A moderate hiatal hernia is incidentally noted. Peritoneal cavity / Subperitoneal space: Trace free fluid and no intraperitoneal free air identified. Lymphovascular: There are a few reactive appearing lymph nodes within the right mesenteric and para-aor tic distributions. The major intra-abdominal vessels are of normal ca liber and contour. Focal calcifications are seen within the aorta and iliac arteries. Abdominal wall: The anterior abdominal w all is intact. Musculoskeletal: Degenerative disc disea se present at L5-S1. The bones are otherwise age appropriate. Impression: 1. Abnormality in the region of the cecu m and adjacent distal small bowel loops, indeterminant without intra venous contrast. No drainable collection. No high-grade obst ruction. No free air.. 2. Wall thickening of the gallbladder an d cholelithiasis, though the gallbladder is nondistended. These findi ngs are nonspecific. 3. Cystic mass associated with the right adnexa /fallopian tube. Evaluation with ultrasound when patient' s condition improves is recommended. 4. Aortoiliac atherosclerosis 5. Moderate hiatal hernia. Dr. Doss discussed these findings with Slime Go. ?? I have personally reviewed the images an d the above interpretation and agree with the findings. Procedure Note Ken Zambrano MD - 09/03/[address] 09/03/2015 1:23 PM Signs and Symptoms/Comments: Clinical Presentation Inconsistent with Outside Imaging Interpretation; minimal abdominal pain, OSH report with concern for appedicitis and cholecytitis, phelgmon, ? drainable collection Technique: CT of the abdomen and pelvis was performed at [facility]. Secondary interpretation is performed at the request of the acute care surgery service. Comparison: None Findings: Lower chest: Mild intralobular septal th ickening is seen within the bases suggestive of interstitial pulmona ry edema. Hepatobiliary: Unenhanced images of the liver are unremarkable. No intrahepatic biliary duct dilatation is identified. The gallbladder shows a thin zone of stranding/wall thic kening peripherally measuring approximately 4 mm. Dense debr is is dependent within the gallbladder, likely representing small s tones. The gallbladder does not appear distended. Spleen, pancreas, adrenal glands: Aside from partial fatty replacement of the pancreas, the unenhan gavi appearance of these is unremarkable. Kidneys, ureters, bladder: The unenhance d kidneys are symmetric without stones or evidence of hydronephr osis. The ureters are nondilated. The bladder is decompressed with a Jade catheter placed. Uterus, ovaries: The uterus has an age-a ppropriate appearance. The left upper ovary is normal. The right ov marycruz and adnexa are intimately involved with the area of abn ormal bowel. There is fat stranding preventing discrete delineatio n of structures. There is, however a tubular or multiloculated cyst ic structure measuring 5.7 x 4.1 x 5.0 cm immediately superior to the uterus in the midline. There is stranding adjacent to the right lateral portion of this, the majority of this cystic structure is bordered by clean fat. Bowel: There is no evidence of bowel obs truction. In the region of the cecum and adjacent small bowel is th ickening with adjacent fat stranding limiting discernment of discre te structures. The appendix is not definitively identified. No dilat ed tubular structure with the appearance of an enlarged appendix i s identified. No calcified appendicolith. Likewise, no adjacent flu id collections are seen. No foci of extraluminal air are identified in this region. A moderate hiatal hernia is incidentally noted. Peritoneal cavity / Subperitoneal space: Trace free fluid and no intraperitoneal free air identified. Lymphovascular: There are a few reactive appearing lymph nodes within the right mesenteric and para-aor tic distributions. The major intra-abdominal vessels are of normal ca liber and contour. Focal calcifications are seen within the aorta and iliac arteries. Abdominal wall: The anterior abdominal w all is intact. Musculoskeletal: Degenerative disc disea se present at L5-S1. The bones are otherwise age appropriate. Impression: 1. Abnormality in the region of the cecu m and adjacent distal small bowel loops, indeterminant without intra venous contrast. No drainable collection. No high-grade obst ruction. No free air.. 2. Wall thickening of the gallbladder an d cholelithiasis, though the gallbladder is nondistended. These findi ngs are nonspecific. 3. Cystic mass associated with the right adnexa /fallopian tube. Evaluation with ultrasound when patient' s condition improves is recommended. 4. Aortoiliac atherosclerosis 5. Moderate hiatal hernia. Dr. Doss discussed these findings with Slime Go. I have personally reviewed the images an d the above interpretation and agree with the findings. Performing Organization Address City/State/ZIP Code Phon e Number [facility] RADIOLOG[facility] INPATIENT ADD-ON (09/03/2015 13:15 EDT) Pathologist Sig nature Tests to be added ALT,AST,TOTAL [facility] BILI,LIPASE,ALK LABORATORY SERVICES PHOS Number for problems [id number] [facility] Accession number [id number] [facility] Specimen Other Performing Organization Address City/State/ZIP Code Phon e Number [facility] [address] [place] [id number] SERVICES [facility] 12-LEAD (09/03/2015 13:10 EDT) Specimen Narrative [facility] - 09/04/2015 11:5 5 EDT ?The Emergency ? Test Date: ?2015-09-03 Pat Name: ? JOY CUNHA ?Department: ?? ED ? Room: ? AC10 Gender: ? F ?Critical Care Cns: ?? [id number] : ?1940 ? Requested By: AVNI Putnam Order Number: [id number] ? Reading MD: ?? ANNELISE CAPELESS MD ? Measurements Intervals ?Reading ? Rate: ? 86 ? P: ?21 WA: ? 220 ?QRS: ?-19 QRSD: ? 102 ?T: ?30 QT: ? 365 ? QTc: ?438 ? Interpretive Statements SINUS RHYTHM WITH MARKED SINUS ARRHYTHMI A WITH FIRST DEGREE AV BLOCK No previous ECG available for comparison Edited by JOEL ESCALONA MD on 09-03-15 23:10:34 EDT. I have reviewed the tracing and have eit her agreed or edited the findings in this report. I reviewed the tracing and have either a greed or edited the findings in this report. Electronically Signed On 11:55:53 EDT by ANNELISE CASTILLO MD. Procedure Note Annelise Castillo MD - 09/04/2015 [facility] Emergency Test Date: 2015-09-03 Pat Name: JOY CUNHA Department: ED Room: [facility] Gender: F Critical Care Cns: [id number] : 1940 Requested By: AVNI Putnam Order Number: [id number] Azeem MD: Merrill CASTILLO MD Measurements Intervals Reading Rate: 86 P: 21 WA: 220 QRS: -19 QRSD: 102 T: 30 QT: 365 QTc: 438 Interpretive Statements SINUS RHYTHM WITH MARKED SINUS ARRHYTHMI A WITH FIRST DEGREE AV BLOCK No previous ECG available for comparison Edited by JOEL ESCALONA MD on 09-03-15 23:10:34 EDT. I have reviewed the tracing and have eit her agreed or edited the findings in this report. I reviewed the tracing and have either a greed or edited the findings in this report. Electronically Signed On 11:55:53 EDT by ANNELISE CASTILLO MD. Performing Organization Address City/State/ZIP Code Phon e Number [facility] EKG ED/URGENT CARE ADD-ON (09/03/2015 12:25 EDT) Pathologist Sig nature Tests to be added LIPASE [facility] SERVICES Number for problems [id number] (ED) [facility] Specimen Other Performing Organization Address [facility]/ZIP Code Phon e Number [facility] [address] [place] [address] SERVICES ED/URGENT CARE ADD-ON (09/03/2015 12:25 EDT) Pathologist Sig nature Tests to be added TSH [facility] SERVICES Number for problems [id number] (ED) [facility] Specimen Other Performing Organization Address [facility] Phon e Number [facility] [address] [place] [address] SERVICES ED/URGENT CARE ADD-ON (09/03/2015 12:20 EDT) Pathologist Sig nature Tests to be added TROPONIN 1 [facility] SERVICES Number for problems [id number] (ED) [facility] Specimen Other Performing Organization Address [facility] Phon e Number [facility] [address] [place] [address] SERVICES BILIRUBIN, TOTAL (09/03/2015 11:55 EDT) Pathologist Sig nature Bilirubin, Total 1.1 <1.4 mg/dl [facility] LABOR ATORY SERVICES Specimen Blood Performing Organization Address [facility] Phon e Number [facility] [address] [place] [address] SERVICES (ABNORMAL) AST (09/03/2015 11:55 EDT) Pathologist Sig nature AST 116 (H) 15 - 46 U/L [facility] LABORATOR Y SERVICES Specimen Blood Performing Organization Address [facility] Phon e Number [facility] [address] [place] [address] SERVICES (ABNORMAL) ALT (09/03/2015 11:55 EDT) Pathologist Sig nature ALT 78 (H) <53 U/L [facility] LABORATOR Y SERVICES Specimen Blood Performing Organization Address City/[facility]/ZIP [facility] Phon e Number [facility] [address] [place] [address] SERVICES ALKALINE PHOSPHATASE (09/03/2015 11:55 EDT) Pathologist Sig nature Total Alkaline 97 38 - 126 U/L [facility] Phosphatase LABORATORY SERVICES Specimen Blood Performing Organization Address City/State/ZIP Code Phon e Number [facility] [address] [place] [address] SERVICES (ABNORMAL) TSH (09/03/2015 11:55 EDT) Pathologist Sig nature TSH 0.14 (L) 0.55 - 4.78 uIU/ml [facility] SERVICES Specimen Blood Performing Organization Address City/[facility]/ZIP Code Phon e Number [facility] [address] [place] [address] SERVICES LIPASE (09/03/2015 11:55 EDT) Pathologist Sig nature Lipase 31 <251 U/L [facility] LABORATOR [facility] SERVICES Specimen Blood Performing Organization Address City/[facility]/ZIP Code Phon e Number [facility] [address] [place] [address] SERVICES (ABNORMAL) TROPONIN I (09/03/2015 11:55 EDT) Pathologist Sig nature Troponin I (ng/mL) 0.073 (H) <0.034 ng/ml [facility] SERVICES Specimen Blood Performing Organization Address City/State/ZIP Code Phon e Number [facility] [address] [place] [address] SERVICES (ABNORMAL) LACTIC ACID (09/03/2015 11:55 EDT) Pathologist Sig nature Lactic Acid 3.2 (HH) <2.0 mmol/L [facility] LAB[facility] SERVICES Specimen Blood specimen (specimen) - Blood Performing Organization Address City/State/ZIP Code Phon e Number [facility] [address] [place] [address] SERVICES (ABNORMAL) HEMAGRAM AND DIFFERENTIAL (09/03/2015 11:55 EDT) WBC 23.44 (H) 4.0 - 12.4 [facility] K/cmm [facility] LAB[facility]ORY SERVICES RBC 4.00 3.86 - 5.04 [facility] M/[facility] LABORATORY SERVICES Hemoglobin 11.8 11.6 - 15.2 [facility] gm/dl [facility] HCT 36.9 34.9 - 44.4 [facility] LABORATORY SERVICES MCV 92 81 - 98 fl [facility] LAB[facility] SERVICES MCH 29.5 26.7 - 33.3 [facility] LABORATORY SERVICES MCHC 32.0 (L) 32.1 - 35.9 [facility] gm/dl [facility]ORAT[facility] SERVICES RDW-CV 14.6 11.7 - 14.6 [facility] LABORATORY SERVICES RDW-SD 49.4 37.6 - 50.3 [facility] LABORATORY SERVICES PLT 139 (L) 141 - 377 [facility] LABORATORY SERVICES MPV 10.2 9.5 - 12.7 [facility] LABORATORY SERVICES Neutrophils 76.0 % [facility] SERVICES Bands 13.0 % [facility] SERVICES Lymphocytes 3.0 % [facility] Monocytes 1.0 % [facility] SERVICES Metamyelocytes 7.0 % [facility] SERVICES ABS Neutrophils 17.82 (H) 2.20 - 8.85 [facility] LABORATORY SERVICES ABS Bands 3.05 K/[facility] LABORATORY SERVICES ABS Lymphs 0.70 (L) 1.09 - 3.30 [facility] LABORATORY SERVICES ABS Monocytes 0.23 0.1 - 0.8 [facility] LABORATORY SERVICES ABS Metamyelocytes 1.64 K/[facility] LABORATORY SERVICES Differential Comment Rev'd by [facility] LABORATORY SERVICES Toxic Granulation Present [facility] SERVICES Type of Diff: Manual [facility] SERVICES Specimen Blood specimen (specimen) - Blood Performing Organization Address City/State/ZIP Code Phon e Number [facility] [address] [place] [address] SERVICES (ABNORMAL) BASIC METABOLIC PANEL (09/03/2015 11:55 EDT) Sodium 145 136 - 145 [facility] mEq/L LABORATORY SERVICES Potassium 3.3 (L) 3.5 - 5.0 [facility] mEq/L LABORATORY SERVICES Chloride 113 (H) 96 - 110 [facility] mEq/L LABORATORY SERVICES CO2 20 (L) 24 - 32 mEq/L [facility] LAB[facility] SERVICES BUN 17 10 - 26 mg/dl [facility] SERVICES Creatinine 0.93 0.52 - 1.04 [facility] mg/dl LABORATORY SERVICES GFR, Calculated 62 >60 [facility] Comment: ml/min/1.73m2 LABORATORY eGFR calculated using CKD-EPI equation for SERVICES non Americans. Multiply eGFR by 1.16 for Americans. Calcium 7.4 (L) 8.5 - 10.5 [facility] mg/dl LABORATORY SERVICES Calculated Calcium 9.2 8.5 - 10.5 [facility] mg/dl LABORATORY SERVICES Glucose, Serum 109 (H) 70 - 100 [facility] mg/dl LABORATORY SERVICES Fasting? Unknown [facility] SERVICES Specimen Blood specimen (specimen) - Blood Performing Organization Address City/State/ZIP Code Phon e Number [facility] [address] [place] [address] SERVICES documented in this encounter Visit Diagnoses Diagnosis Intra-abdominal infection - Primary Unspecified infectious and parasitic dis eases Sepsis, due to unspecified organism Elevated troponin Other abnormal blood chemistry Sepsis Unspecified septicemia documented in this encounter Administered Medications Inactive Administered Medications - up to 3 most recent administrations Medication Order MAR Action Action Date Dose Rate Site acetaminophen (TYLENOL) tablet 650 Given 09/04/2015 21:50 EDT 65 0 mg mg 650 mg, oral, EVERY 4 HOURS PRN, Starting on Tue09/03/15 at 1921, Until Tue09/07/15 at 1553, Pain, Routine amoxicillin-clavulanate (AUGMENTIN) 875-125 mg Given 0 09/07/2015 8:53 EDT 1 Tablet per tablet 1 Tab 1 Tablet, oral, EVERY 12 HOURS, 14 doses, First dose on Tue09/05/15 at 2100, Last dose on Tue09/12/15 at 0900, Routine Given 09/06/2015 20:39 EDT 1 Tablet Given 09/06/2015 8:25 EDT 1 Tablet aspirin chewable tablet 81 mg Given 09/07/2015 8:53 EDT 81 mg 81 mg, oral, DAILY, First dose on Tue09/04/15 at 0900, Until Discontinued, Routine Given 09/06/2015 8:25 EDT 81 mg Given 09/05/2015 8:15 EDT 81 mg calcium gluconate 100 mg/mL (10%) injection Given 09/04/2015 5:4 8 EDT 2,000 mg 2,000 mg 2,000 mg (2 g), intravenous, NOW X1, 1 dose, On Tue09/04/15 at 0530, Routine calcium gluconate 100 mg/mL (10%) injection Given 09/05/2015 10:25 EDT 2,000 mg 2,000 mg 2,000 mg (2 g), intravenous, NOW X1, 1 dose, On Tue09/05/15 at 1045, Routine docusate sodium (COLACE) capsule 100 mg Given 09/07/2015 8:54 EDT 100 mg 100 mg, oral, 2 TIMES DAILY, First dose on Tue09/06/15 at 2100, Until Discontinued, Routine DOPamine (INTROPIN) 800 Rate Documented 09/03/2015 16:20 6 mcg/kg/m in 20.6 mL/hr mg in D5W 500 ml EDT infusion 3-30 mcg/kg/min ? 91.6 kg (10.305-103.05 mL/hr, rounded to 10.3-103.1 mL/hr), intravenous, CONTINUOUS, Starting on Tue09/03/15 at 1230, Until Tue09/03/15 at 1831, STAT Rate Documented 09/03/2015 16:00 EDT 6.987 mcg/kg/min 24 mL/hr Rate Documented 09/03/2015 15:35 EDT 7 mcg/kg/min 24 mL/hr Dopamine (INTROPIN) 800 mg/500 mL (1,600 mcg/mL) infusion 1 dose, Starting on Tue09/03/15 at 1137, Until Tue at 1219 electrolyte-A (PLASMALYTE-A) solution BOLUS Given 09/03/2015 22: 45 EDT 500 mL solution 500 mL 500 mL, intravenous, NOW X1, 1 dose, On Tue09/03/15 at 2345 electrolyte-A (PLASMALYTE-A) solution BOLUS Given 09/04/2015 0:3 3 EDT 500 mL solution 500 mL 500 mL, intravenous, NOW X1, 1 dose, On Tue09/04/15 at 0030 electrolyte-A (PLASMALYTE-A) solution BOLUS Given 09/04/2015 5:4 9 EDT 500 mL solution 500 mL 500 mL, intravenous, NOW X1, 1 dose, On Tue09/04/15 at 0545 electrolyte-A (PLASMALYTE-A) Rate Documented 09/04/2015 12:00 EDT 7 5 mL/hr 75 mL/hr solution at 75 mL/hr, 75 mL/hr, intravenous, CONTINUOUS, Starting on Tue09/03/15 at 1315, Until Tue09/04/15 at 1258, Routine Rate Documented 09/04/2015 11:00 EDT 75 mL/hr 75 mL/hr Rate Documented 09/04/2015 10:00 EDT 75 mL/hr 75 mL/hr enoxaparin (LOVENOX) injection 40 mg Given 09/07/2015 8:53 EDT 40 mg 40 mg, subcutaneous, DAILY, First dose on Tue09/04/15 at 0900, Until Discontinued, Routine Given 09/06/2015 8:25 EDT 40 mg Given 09/05/2015 8:15 EDT 40 mg furosemide (LASIX) injection 20 mg Given 09/04/2015 11:50 EDT 20 mg 20 mg, intravenous, NOW X1, 1 dose, On Tue09/04/15 at 1115, Routine furosemide (LASIX) injection 20 mg Given 09/05/2015 0:13 EDT 20 mg 20 mg, intravenous, NOW X1, 1 dose, On Tue09/05/15 at 0030, Routine levothyroxine (SYNTHROID) tablet 112 mcg Given 09/07/2015 8:54 EDT 112 mcg 112 mcg, oral, DAILY, First dose on Tue09/06/15 at 0900, Until Discontinued, Routine Given 09/06/2015 8:33 EDT 112 mcg levothyroxine 50 mcg IV syringe Given 09/05/2015 8:15 EDT 50 mcg 50 mcg, intravenous, DAILY, First dose (after last modification) on Tue09/04/15 at 0900, Until Discontinued, Routine Given 09/04/2015 8:33 EDT 50 mcg levothyroxine 56 mcg IV syringe Given 09/03/2015 19:59 EDT 56 mcg 56 mcg, intravenous, DAILY, First dose on Tue09/03/15 at 1945, Until Discontinued, Routine NORepinephrine Rate Documented 09/04/2015 6:00 EDT 2.027 mcg/min 3.8 mL/hr (LEVOPHED) 8 mg in D5W 250 mL infusion 2-30 mcg/min (3.75-56.25 mL/hr, rounded to 3.8-56.3 mL/hr), intravenous, CONTINUOUS, Starting on Tue09/03/15 at 1315, Until [place] 09/04/15 at 2047, Routine Rate Documented 09/04/2015 5:00 EDT 2.027 mcg/min 3.8 mL/hr Rate Change 09/04/2015 4:33 EDT 2 mcg/min 3.8 mL/hr ondansetron (PF) (ZOFRAN) injection 4 mg Given 09/03/2015 13:55 EDT 4 mg 4 mg, intravenous, EVERY 6 HOURS PRN, Starting on Tue09/03/15 at 1310, Until [place] 09/07/15 at 1553, Nausea, Vomiting, Routine oxybutynin (DITROPAN) tablet 5 mg Given 09/07/2015 8:53 EDT 5 mg 5 mg, oral, DAILY, First dose on Tue09/05/15 at 1500, Until Discontinued, Routine Given 09/06/2015 8:25 EDT 5 mg Given 09/05/2015 16:12 EDT 5 mg PEG 3350-Electrolytes (MIRALAX) packet 1 7 g Given 09/07/2015 8:54 EDT 17 g 17 g, oral, DAILY, First dose on Tue09/06/15 at 1915, Until Discontinued, Routine piperacillin-tazobactam 4.5 g in sodium chloride Given 09/05/2015 16:19 EDT 4.5 g (NS MBP) 0.9 % 100 mL IVPB 4.5 g, intravenous, Administer over 4 Hours, EVERY 8 HOURS, 7 doses, First dose on Tue09/03/15 at 1600, Last dose on Tue09/05/15 at 1600, Controlled antibiotic, has ID approved? No: ICU Patient, Routine Given 09/05/2015 7:26 EDT 4.5 g Given 09/05/2015 0:28 EDT 4.5 g potassium chloride IVPB 20 mEq/100 mL Given 09/03/2015 17:24 EDT 20 mEq 20 mEq, intravenous, EVERY 2 HOURS, 2 doses, First dose on Tue09/03/15 at 1400, Last dose on Tue09/03/15 at 1600, Routine Given 09/03/2015 15:23 EDT 20 mEq potassium chloride IVPB 20 mEq/100 mL Given 09/05/2015 11:37 EDT 20 mEq 20 mEq, intravenous, EVERY HOUR, 2 doses, First dose on Tue09/05/15 at 1100, Last dose on Tue09/05/15 at 1200, Routine Given 09/05/2015 10:29 EDT 20 mEq potassium, sodium phosphates (PHOS-NAK) Given 09/06/2015 8:25 ED T 8 mmol 280-160-250 mg packet 8 mmol 8 mmol (1 Packet), oral, 2 TIMES DAILY, 3 doses, First dose on Tue09/05/15 at 1030, Last dose on Tue09/06/15 at 0900, Routine Given 09/05/2015 21:01 EDT 8 mmol Given 09/05/2015 13:03 EDT 8 mmol documented in this encounter Discontinued Medications Medication Sig Discontinue Reason Start Date End Date LEVOTHYROXINE SODIUM Take by mouth. Error 09/02 (LEVOTHYROXINE ORAL) documented as of this encounter Historical Medications This list may reflect changes made after this encounter. Medication Sig Dispensed Refills Start Date End Date levothyroxine (SYNTHROID) Take 112 mcg by 0 112 mcg tablet mouth daily. oxybutynin (DITROPAN) 5 mg Take 5 mg by mouth 0 tablet daily. simvastatin (ZOCOR) 40 mg Take 40 mg by 0 12/23/2015 tablet mouth every evening. LEVOTHYROXINE SODIUM Take by mouth. 0 09/03/2015 (LEVOTHYROXINE ORAL) added in this encounter Active and Recently Administered Medications Times are shown in EDT. Scheduled Medication Order 09/05/2015 09/06/2015 09/07/2015 amoxicillin-clavulanate (AUGMENTIN) 875-125 mg per tab let 1 Tab 2100 (Given - Provider: Lorie Lauren RN) 0825 (Given - Provider: Virginia lemon RN)2038 (Given - Provider: Leanna Rudd RN) 0853 (Given - Provider: Mary Ren, ARYA) 1 Tab, oral, EVERY 12 HOURS, 14 doses, F irst dose on Tue09/05/15 at 2100, Last dose on Tue09/12/15 at 0900, Routine aspirin chewable tablet 81 mg 0815 (Given - Provider: Stacey Johnson RN) 0825 (Given - Provider: Virginia Funk RN) 0853 (Given - Provider: Mary Ren RN) 81 mg, oral, DAILY, First dose on Kin[place]/16 at 0900, Until Discontinued, Routine calcium gluconate 100 mg/mL (10%) injection 2,000 mg ( COMPLETED) 1025 (Given - Provider: Stacey Johnson RN) 2,000 mg (2 g), intravenous, NOW X1, 1 dose, Tue09/05/15 at 1045, Routine docusate sodium (COLACE) capsule 100 mg 2040 (Not Given - Provider: Leanna Rudd RN - Reason: Patient/family refused) 0854 (Given - Provider: Mary Ren, RN) 100 mg, oral, 2 TIMES DAILY, First dose on 09/06/15 at 2100, Until Discontinued, Routine enoxaparin (LOVENOX) injection 40 mg (CANCELED) 0815 ( Given - Provider: Stacey Johnson RN) 0825 (Given - Provider: Virginia Funk, ARYA) 0853 (Given - Provider: Mary Ren, RN) 40 mg, subcutaneous, DAILY, First dose o n Tue09/04/15 at 0900, Until Discontinued, Routine furosemide (LASIX) injection 20 mg (COMPLETED) 0013 (G iven - Provider: Caro Kaufman, ARYA) 20 mg, intravenous, NOW X1, 1 dose, Tue09/05/15 at 0030, Routine levothyroxine (SYNTHROID) tablet 112 mcg (CANCELED) 0833 (Given - Provider: Virginia Funk, ARYA) 0854 (Given - Provider: Mary Ren , RN) 112 mcg, oral, DAILY, First dose on 09/06/15 at 0900, Until Discontinued, Routine levothyroxine 50 mcg IV syringe (CANCELED) 0815 (Given - Provider: Stacey Johnson, ARYA) 50 mcg, intravenous, DAILY, First dose o n [place] 09/04/15 at 0900, Until Discontinued, Routine oxybutynin (DITROPAN) tablet 5 mg (CANCELED) 1612 (Giv en - Provider: John Davies, ARYA) 0825 (Given - Provider: Virginia Funk, ARYA) 0853 (Given - Provider: Mary Ren, ARYA) 5 mg, oral, DAILY, First dose on 09/04 at 1500, Until Discontinued, Routine PEG 3350-Electrolytes (MIRALAX) packet 17 g 1950 (Not Given - Provider: Leanna Rudd RN - Reason: Patient/family refused) 0854 (Given - Provider: Mary Ren, ARYA) 17 g, oral, DAILY, First dose on 09/05 at 1915, Until Discontinued, Routine piperacillin-tazobactam 4.5 g in sodium chloride (NS MBP) 0.9 % 100 mL IVPB (COMPLETED) 0028 (Given - Provider: Caro Kaufman, ARYA)0726 (Given - Provider: Stacey Johnson, ARYA)1619 (Given - Provider: John Davies, ARYA) 4.5 g, intravenous, for 4 Hours, EVERY 8 HOURS, 7 doses, First dose on Tue09/03/15 at 1600, Last dose on Tue09/05/15 at 1600, Routine potassium chloride IVPB 20 mEq/100 mL (COMPLETED) 1029 (Given - Provider: Stacey Johnson RN)1137 (Given - Provider: Stacey Johnson RN) 20 mEq, intravenous, EVERY HOUR, 2 doses , First dose on Tue09/05/15 at 1100, Last dose on Tue09/05/15 at 1200, Routine potassium, sodium phosphates (PHOS-NAK) 280-160-250 mg packet 8 mmol (COMPLETED) 1135 (Not Given - Provider: Stacey rasmussen RN - Reason: Medication not available)1303 (Given - Provider: Stacey Johnson, ARYA)2101 (Given - Provider: Lorie Lauren RN) 0825 (Given - Provider: Virginia Funk, ARYA) 8 mmol (1 Packet), oral, 2 TIMES DAILY, 3 doses, First dose on Tue09/05/15 at 1030, Last dose on Tue09/06/15 at 0900, Routine PRN Medication Order 09/05/2015 09/06/2015 09/07/2015 acetaminophen (TYLENOL) tablet 650 mg 650 mg, oral, EVERY 4 HOURS PRN, Startin g 09/03/15 at 1921, Until 09/07/15 at 1553, Pain, Routine documented in this encounter Orders Medications Ordered That Might Not Have Count Last Ord ered Date First Ordered Date Been Administered bisacodyl (DULCOLAX) suppository 10 mg 1 6 calcium gluconate 2,000 mg in dextrose 5% 1 2015 (D5W) 50 mL IVPB HYDROmorphone (DILAUDID) tablet 2-4 mg 1 6 simvastatin (ZOCOR) tablet 40 mg 1 09/05/2015 HYDROmorphone 1 mg/ml (DILAUDID) syringe, 1 2015 30 ml acetaminophen (TYLENOL) suppository 650 mg 1 09/02 electrolyte-A (PLASMALYTE-A) solution 1 09/03/2015 BOLUS solution 1,000 mL HYDROmorphone (PF) (DILAUDID) 1 mg/mL 1 09/03/2015 injection 0.2-0.4 mg NORepinephrine (LEVOPHED) in D5W 32 mcg/ml 1 09/02 250 ml 8 mg/250 mL (32 mcg/mL) infusion solution Procedures Count Last Ordered Date First Ordered Date ECG REPORT - SCANNED 4 09/16/2015 2015 Nursing Count Last Ordered Date First Ordered Date JADE CATHETER - DISCONTINUE 1 09/05/2015 REMOVE ARTERIAL LINE 1 09/04/2015 ARTERIAL LINE CHECK 1 09/03/2015 Respiratory Care Count Last Ordered Date First Ordered Date RESPIRATORY CARE EVALUATION ONLY 3 09/04/2015 09/03/2015 IV Count Last Ordered Date First Ordered Date IV REQUEST 1 09/05/2015 REMOVE CENTRAL CATHETER 2 09/05/2015 CENTRAL LINE CLEARED FOR USE 1 09/03/2015 Admission Count Last Ordered Date First Ordered Date ED BED REQUEST 1 09/03/2015 STATUS: INPATIENT ACUTE ADMISSION 1 09/03/2015 Transfer Count Last Ordered Date First Ordered Date NOTIFY PPS OF DISCHARGE COMPLETE 1 09/07/2015 PPS NOTIFICATION OF PATIENT ARRIVAL ON 3 6 09/03/2015 UNIT PPS NOTIFICATION OF SENDING PATIENT OFF 1 09/05/19 16 THE UNIT TRANSFER PATIENT 09/05/2015 CHANGE ATTENDING TO: 09/03/2015 UR PATIENT STATUS CHANGE 1 09/03/2015 Discharge Count Last Ordered Date First Ordered Date DISCHARGE PATIENT 1 09/07/2015 documented in this encounter Care Teams Urban Designer Relationship Specialty Start Date End Date Jodi Camp MD PCP - General 09/03/15 12/22/[address] [address] documented as of this encounter
--- OUTSIDE RECORDS SUMMARY | 2021-11-06 01:28 | XMS_ITS | Encounter Summary ---
:1940 Author Organization [facility] Address [address] [place] [address] Care Team Providers Name Role Phone Jodi Camp MD Primary Care Provider Reason for Visit Reason Comments Follow-up Perf Appendix Follow Up (Routine) - Closed Specialty Diagnoses / Procedures Referred By Contact Refer red To Contact Trauma Surgery Diagnoses Sepsis, due to unspecified organism Intra-abdominal infection Nina Power Ep5 Trauma/Crit Care MD Ceasar [address] [facility] [address] [place], [place] [address] [place] [address] Phone: Fax: Referral ID Status Reason Start Date Expiration Date Visits V isits Requested Authorized [id number] Closed Specialty 09/07/2015 1 1 Services Required Encounter Details Date Type Department Care Team Description 10/07/2015 Office Visit [facility] Jeremy Caceres Intra -abdominal Acute Care Surgery - MD Shad infecti on (Primary Dx) [facility] [place] [address] [place] [address] Social History Tobacco Use Types Packs/Day Years Used Date Never Smoker Alcohol Use Standard Drinks/Week Comments Not Asked 0 (1 standard drink = 0.6 oz pure alcoho l) Sex Assigned at Date Recorded Not on file documented as of this encounter Last Filed Vital Signs Vital Sign Reading Time Taken Comments Blood Pressure 112/76 10/07/2015 0852 EDT Pulse 84 10/07/2015 0852 EDT Temperature - - Respiratory Rate - - Oxygen Saturation - - Inhaled Oxygen Concentration - - Weight 89.3 kg (196 lb 12.8 oz) 10/07/2015 0852 EDT Height 175.3 cm (5' 9) 10/07/2015 0852 EDT Body Mass Index 29.06 10/07/2015 0852 EDT documented in this encounter Functional Status [...] documented as of this encounter Progress Notes Jeremy Caceres MD - 10/07/2015 0964 EDT Ms Armstrong presents with her in followup for her hospitalization for presumed intraabdominal sepsis. She has been off antibiotics. She has been afebrile. She is ambulating without difficulties. She is having normal bowel movements. She has never had abdominal pain at any point during this episode. She denies any fevers or chills. Constitutionally, she has been on a decline for the last several years. Her is very concerned about her inability to walk. In fact, she recently walked for 5 minutes on a walk they would have typically done for a long time and she had to give up because of weakness. She did not have shortness of breath nor did she have cramping in her legs. She just felt tooweak to continue. This was similar to what had happened before her hospitalization. In fact, she had2 falls earlier the day before. I reviewed over her studies in the hospital and quite honestly, I donot see any smoking gun for source. Her gallbladder had no stones, possible sludge, possibly some thi ckening, but no pericholecystic fluid and was not particularly tender on exam nor did she have any pain in the right upper quadrant. Her appendix was not visualized. There really was not any significant peritoneal fluid or thickening that I can say represents diverticulitis or appendicitis. On exam today, her abdomen is soft, nondistended, nontender. My overall impression is that this patient had a septic-type episode of unclear etiology. No definitive source was ever identified. She has no indication for any surgical intervention at this time. Renetta was very discontent, however. He indicates she has had a myriad of complaints. Her old doctor retired. She has a new doctor who she has not really seen. The nurse practitioner at the office, javad misdiagnosed her liver insufficiency following statin use. He had a myriad of complaints. I spent 20 minutes of this 30-minute encounter counseling this patient and recommending that they actually get a primary that they are comfortable with. I see no further benefit I can offer. I indicated I cannot exclude appendicitis, but I cannot recommend interval appendectomy either. They understand, alltheir questions have been answered. They will follow up only on a p.r.n. basis. documented in this encounter Plan of Treatment Not on filedocumented as of this encounter Visit Diagnoses Diagnosis Intra-abdominal infection - Primary Unspecified infectious and parasitic dis eases documented in this encounter Care Teams Hospital Pharmacist Relationship Specialty Start Date End Date Jodi Camp MD PCP - General 09/03/15 12/22/[address] [address] documented as of this encounter
--- OUTSIDE RECORDS SUMMARY | 2021-11-06 01:28 | XMS_ITS | Encounter Summary ---
:1940 Author Organization [facility] Address [address] [place] [address] Care Team Providers Name Role Phone Jodi Camp MD Primary Care Provider Reason for Visit Reason Onset Date Comments Appointment Related 09/10/2015 Call patient with a follow up visit with trauma, She is s/p treatment for presumed perforated appendicitis Encounter Details Date Type Department Care Team Description 09/10/2015 Telephone [facility] Jessica Darby tment Related Acute Care Surgery - MD Pedro (Call patient with a Main [place] [address] follow up visit with [address] [facility] [address] trauma, She is s/p [place], [place] [id number] [place] [address] treatment for presumed [phone] perforated appe ndicitis) Social History Tobacco Use Types Packs/Day Years [...] this encounter Miscellaneous Notes Telephone Encounter - Tiffanie Liu - 09/10/2015 1138 EDT TC to patient to inform her that [facility] Nurse will be calling her with a follow up appointment with oneof our attending physicians in the first half of October 2015. Patient satisfied. documented in this encounter Plan of Treatment Not on filedocumented as of this encounter Visit Diagnoses Not on filedocumented in this encounter Care Teams Facilities Maintenance Technician Relationship Specialty Start Date End Date Jodi Camp MD PCP - General 09/03/15 12/22/15 [facility] MEDICINE [address] [address] documented as of this encounter
--- OUTSIDE RECORDS SUMMARY | 2021-11-06 01:28 | XMS_ITS | Encounter Summary ---
:1940 Author Organization [facility] Address [address] [place] [address] Care Team Providers Name Role Phone Jodi Camp MD Primary Care Provider Reason for Visit Reason Onset Date Comments Procedure 10/20/2015 schedule echo Follow-up 10/27/2015 Appt /follow up Encounter Details Date Type Department Care Team Description 10/20/2015 Telephone [facility] Juhi Moncada RN Proc edure (schedule Cardiology - Amber echo); Follow-up (Appt [address] /follow up) [place] [address] Social History Tobacco Use Types Packs/Day Years [...] this encounter Miscellaneous Notes Telephone Encounter - Em Palmer - 10/27/2015 1108 EDT Reason for Call: Procedure and Follow-up Summary/Symptoms: Pt calling back states dr. Casey @ [facility] next availble 12/18/15, so would prefer sooner here, scheduled 11/04/15 appt @ 6pm w/ Contreras Preston- pt aware and is all set Em Palmer 10/27/2015 11:08 elephone Encounter - Juhi Moncada RN - 10/27/2015 1029 EDT Echo reviewed by Dr. Preston who recommends cardiology follow up for pt. I called pt w/ this update and she would like to see Dr. Casey @ [facility] which is closer to her home. I called Halina @ Dr. Casey's office and she will call pt to set up appointment. I will ask HIM clerks to send information to Dr. Casey's office. Telephone Encounter - Juhi Moncada RN - 10/20/2015 1544 EDT I checked on echo appointment and no appointment has been made yet. I called pt to follow up on thisas it was my understanding that this was going to be scheduled 1 week ago. Pt's is very frustrated and upset. I was able to have echo scheduled for 10/21 @ 3 pm @ hospital. I called pt back w/ this appointment and spoke w/ again. I asked what else I could do and he asked me to arrange ameeting for him w/ Dr. Caceres. He remained clearly very upset. I offered to have Pt Advocacy call him and he agreed. I called that office and spoke w/ [place] and she states she will call pt and . documented in this encounter Plan of Treatment Not on filedocumented as of this encounter Visit Diagnoses Not on filedocumented in this encounter Care Teams Auth Specialist Relationship Specialty Start Date End Date Jodi Camp MD PCP - General 09/03/15 12/22/[address] [address] documented as of this encounter
--- OUTSIDE RECORDS SUMMARY | 2021-11-06 01:28 | XMS_ITS | Encounter Summary ---
:1940 Author Organization [facility] Address [address] [place] [address] Care Team Providers Name Role Phone Fabiano Aranda MD Primary Care Provider Encounter Details Date Type Department Care Team Description 02/23/2010 Hospital Encounter [facility] Steffen Severino Family history of - [facility] MD Dixon genetic disease 111 [facility] [address] [place], [place] [id number] [place] [address] [address], [address] [place] [address] Social History Tobacco Use Types Packs/Day Years Used Date Never Assessed Sex Assigned at Date Recorded Not on file documented as of this encounter Discharge Disposition Disposition Code Departure Means Destination Auto Discharge Home documented in this encounter Plan of Treatment Not on filedocumented as of this encounter Procedures Procedure Name Priority Date/Time Associated Diagnosis Comme nts FAP KNOWN MUTATION Routine 02/23/2010 15:46 Family history of Results for this EST genetic disease procedure ar e in the results section. 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 accession number; [id number]. ? 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 The [...] donors will interfere ? with testing. Call [facility] for ? instructions for testing pat ients who have received a bone ? marrow transplant. ? This test was developed and its performance characteristics ? determined by Laboratory Med icine and Pathology, [facility]. This test has not be en cleared or approved by the ? U.S. Food and Drug Administr ation. ? Reviewed By PANDA Silva MD ? LAB Release Date 09 Mar 2010 10:28 [facility] Performed or Referred by: [facility] Dpt of Lab Med and Path, [address] ?? , [place] [address], Lab Dir: Myles gandhi III, MD Specimen Blood specimen (specimen) Performing Organization Address City/State/ZIP Code Phon e Number [facility] [address] [place] [address] SERVICES [facility] [address] [place] [address] documented in this encounter Visit Diagnoses Diagnosis Family history of genetic disease Family history of other condition documented in this encounter Care Teams Operations Administrative Assistant Relationship Specialty Start Date End Date Fabiano Aranda MD PCP - General 02/20/10 09/02/[address] [place] [address] [address] [place] [address] documented as of this encounter
--- OUTSIDE RECORDS SUMMARY | 2021-11-06 01:28 | XMS_ITS | Encounter Summary ---
:1940 Author Organization [facility] Address [address] [place] [address] Care Team Providers Name Role Phone Unavailable Primary Care Provider Unavailable Encounter Details Date Type Department Care Team Description 11/23/2007 Before PRISM Converted [facility] Unknown, Visit ([place]) Adult Primary Care - Provider, Merrill Palencia [place] [phone] [facility] (Work) [place] [address] Social History Tobacco Use Types Packs/Day Years Used Date Never Assessed Sex Assigned at Date Recorded Not on file documented as of this encounter Plan of Treatment Not on filedocumented as of this encounter Procedures Procedure Name Priority Date/Time Associated Diagnosis Comme nts VITAMIN B12 Routine 11/23/2007 7:39 EDT Results for this procedure are i n the results section . documented in this encounter Results VITAMIN B12 (11/23/2007 7:39 EDT) Pathologist Sig nature Vitamin B-12 411 250 - 1100 pg/ml [facility] Specimen Performing Organization Address City/State/ZIP Code Phon e Number [facility] [address] [place] [address] SERVICES [facility] [address] [place] [address] documented in this encounter Visit Diagnoses Not on filedocumented in this encounter
[2021-11-06] MEDS: Normal Saline Flush 10 ML SYR IVP (10:00)
[2021-11-06 10:08] LABS: Absolute Basophil Count 0.02 10^3/uL (0.0-0.2); Absolute Eosinophil Count 0.04 10^3/uL (0.0-0.7); Absolute Lymphocyte Count 1.06 10^3/uL (1.2-3.4); Absolute Neutrophil Count 1.35 10^3/uL (1.2-6.7); Basophils % 0.6; Eosinophils % 1.3; HCT 34.7 % (36.0-46.0); HGB 11.2 g/dL (11.2-15.7); Lymphocytes % 33.4; MCHC 32.3 % (32.0-36.0); MCV 99 fL (80-95); MPV 9.6 fL (8.0-11.0); Monocytes % 22.1; Neutrophils % 42.6; Platelet Count 108 10^3/uL (130-400); RDW 16.4 % (11.7-14.6); RDW-SD 59.1 fL; WBC 3.17 10^3/uL (4.4-10.8)
[2021-11-06 10:35] LABS: ALT 32 U/L (14-59); AST 35 U/L (15-37); Albumin 2.9 g/dL (3.4-5.0); Alkaline Phosphatase 100 U/L (46-116); Anion Gap 4.3 mmol/L (3-11); BUN 16 mg/dL (7-18); Bilirubin, Total 0.5 mg/dL (0.2-1.0); CO2 28.7 mmol/L (21.0-32.0); CREATININE 0.8 mg/dL (0.55-1.02); Chloride 105 mmol/L (98-107); Glucose 113 mg/dL (74-106); Potassium 3.7 mmol/L (3.5-5.1); Sodium 138 mmol/L (136-145); Total Protein 6.6 g/dL (6.4-8.2)
[2021-11-09 10:13] LABS: CEA 3.8 ng/mL (See Note)
[2021-11-20] MEDS: Normal Saline Flush 10 ML SYR IVP (08:50)
[2021-11-20 09:13] LABS: Abs Immature Grans 0.01 10^3/uL (0.0-0.06); Absolute Basophil Count 0.03 10^3/uL (0.0-0.2); Absolute Eosinophil Count 0.12 10^3/uL (0.0-0.7); Absolute Lymphocyte Count 1.28 10^3/uL (1.2-3.4); Absolute Monocyte Count 0.58 10^3/uL (0.1-0.8); Absolute Neutrophil Count 2.26 10^3/uL (1.2-6.7); Basophils % 0.7; Eosinophils % 2.8; HCT 36.5 % (36.0-46.0); HGB 11.7 g/dL (11.2-15.7); Immature Grans % 0.2; Lymphocytes % 29.9; MCHC 32.1 % (32.0-36.0); MCV 100 fL (80-95); MPV 9.3 fL (8.0-11.0); Monocytes % 13.6; Neutrophils % 52.8; Platelet Count 127 10^3/uL (130-400); RBC 3.66 10^6/uL (3.93-5.22); RDW 16.4 % (11.7-14.6); RDW-SD 59.8 fL; WBC 4.28 10^3/uL (4.4-10.8)
[2021-11-20 09:26] LABS: ALT 29 U/L (14-59); AST 28 U/L (15-37); Albumin 2.8 g/dL (3.4-5.0); Alkaline Phosphatase 92 U/L (46-116); Anion Gap 7.8 mmol/L (3-11); BUN 10 mg/dL (7-18); Bilirubin, Total 0.4 mg/dL (0.2-1.0); CO2 29.2 mmol/L (21.0-32.0); CREATININE 0.8 mg/dL (0.55-1.02); Calcium 8.9 mg/dL (8.5-10.1); Chloride 106 mmol/L (98-107); Glucose 128 mg/dL (74-106); Potassium 3.9 mmol/L (3.5-5.1); Sodium 143 mmol/L (136-145); Total Protein 6.7 g/dL (6.4-8.2)
[2021-11-20 20:37] LABS: CEA 3.7 ng/mL (See Note)
== END 2021-12-02 23:59 | disposition home or self-care (01) ==
LOC: INF 00:49
PROVIDERS: Visit Provider Internal Medicine Hematology & Oncology
DX: C18.9 Malignant neoplasm of colon, unspecified (principal); Z45.2 Encounter for adjustment and management of vascular access device
CPT/HCPCS: 36591; 80053; 82378; 85025

== ENCOUNTER → 2021-12-04 11:34 | Outpatient (CLI) | payer MEDICARE, SELFPAY ==
--- NOTE | 2021-12-04 10:00 | DI.US_ITS ---
Exam(s) US UPPER EXTREMITY VENOUS RT EXAM: US UPPER EXTREMITY VENOUS RT CLINICAL HISTORY: NECK SWELLING ON SIDE OF MEDIPORT, R22.1; ? THROMBUS TECHNIQUE: Ultrasound performed using standard protocol. COMPARISON: No exams were available for comparison FINDINGS: No prior images available for comparison. Right upper extremity duplex evaluation was performed with 2D and Doppler evaluation. The right upper extremity deep veins are patent with no evidence of thro mbus. Right subclavian vein is unremarkable in appearance. Note is made of thrombosis of the video production intern al jugular vein on the right which is probably occlusive. 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 Results were communicated to Dr. Romero. DATA REPOSITORY:
== END ==
PROVIDERS: Visit Provider Internal Medicine Hematology & Oncology
DX: I82.C11 Acute embolism and thrombosis of right internal jugular vein; R22.1 Localized swelling, mass and lump, neck; I82.621 Acute embolism and thrombosis of deep veins of right upper extremity; C17.9 Malignant neoplasm of small intestine, unspecified
CPT/HCPCS: 36591; 80053; 82378; 85025; 93971

== ENCOUNTER 2021-12-18 16:45 | Outpatient (REF) | payer MEDICARE, SELFPAY ==
[2021-12-18 18:36] LABS: Bilirubin Negative (Negative); Blood Trace-intact (Negative); Clarity Clear (Clear); Glucose Negative (Negative); Ketones Negative (Negative); Leukocyte Esterase Small (Negative); Nitrite Positive (Negative); Specific Gravity >= 1.030 (1.005-1.025); Urobilinogen 0.2 EU/dL (Up TO 0.2); pH 5.5 (5-8)
[2021-12-18 18:51] LABS: Bacteria Many HPF (Negative); C & S Indicated? No/Sq. Contamination; Casts Negative LPF (Negative); Crystals Negative HPF (Negative); Epithelial Cells Many HPF (Negative); Mucus Negative (Negative); RBC Negative HPF (0-2); WBC >50 HPF (0-5)
== END 2021-12-18 16:46 | disposition home or self-care (01) ==
LOC: LBN 16:45
PROVIDERS: Visit Provider Internal Medicine Hematology & Oncology
DX: R35.0 Frequency of micturition (principal)
CPT/HCPCS: 81003; 81015

== ENCOUNTER 2022-01-01 01:02 | Outpatient (RCR) | payer MEDICARE, SELFPAY ==
--- OUTSIDE RECORDS SUMMARY | 2021-12-04 01:37 | XMS_ITS | Encounter Summary ---
:1940 Author Organization [facility] Address [place] [address] Care Team Providers Name Role Phone None Primary Care Provider Unavailable Encounter Details Date Type Department Care Team Description 11/20/2021 Orders Only Hematology and Michael Romero, Protein -calorie Oncology at [facility] MD malnutrition, [facility] uns pecified [place] [address] ONCOLOGY [phone] [place], [place] [address] Social History Tobacco Use Types Packs/Day Years Used Date Never Smoker Smokeless Tobacco: Never Used Sex Assigned at Date Recorded Not on file documented as of this encounter Plan of Treatment Upcoming Encounters Date Type Specialty Care Team Description 12/04/2021 Office Visit Hematology and Oncology Michael Romero MD [facility] ER [address] [place], [place] [address] (Wo rk) 12/04/2021 Infusion Hematology and Oncology 12/18/2021 Office Visit Hematology and Oncology Michael Romero MD [facility] [address] [place], [place] [address] (Wo rk) 12/18/2021 Infusion Hematology and Oncology 01/01/2022 Office Visit Hematology and Oncology Michael Romero MD [facility] [address] [place], [place] [address] (Wo rk) 01/01/2022 Infusion Hematology and Oncology 01/15/2022 Office Visit Hematology and Oncology Michael Romero MD [facility] ONCOLOGY [place], [place] [address] (Wo rk) 01/15/2022 Infusion Hematology and Oncology 01/29/2022 Office Visit Hematology and Oncology Michael Romero MD [facility] ONCOLOGY [place], [place] [address] (Wo rk) 01/29/2022 Infusion Hematology and Oncology 02/12/2022 Office Visit Hematology and Oncology Michael Romero MD [facility] ONCOLOGY [place], [place] [address] (Wo rk) 02/12/2022 Infusion Hematology and Oncology 02/26/2022 Office Visit Hematology and Oncology Michael Romero MD [facility] ONCOLOGY [place], [place] [address] (Wo rk) 02/26/2022 Infusion Hematology and Oncology documented as of this encounter Visit Diagnoses Diagnosis Protein-calorie malnutrition, unspecifie d severity documented in this encounter Care Teams Vocational Guidance Counselor Relationship Specialty Start Date End Date None PCP - General 12/03/19 None documented as of this encounter
--- OUTSIDE RECORDS SUMMARY | 2021-12-04 01:37 | XMS_ITS | Encounter Summary ---
:1940 Author Organization [facility] [place] [address] Care Team Providers Name Role Phone None Primary Care Provider Unavailable Encounter Details Date Type Department Care Team Description 12/04/2021 Infusion Hematology Oncology at [address] [phone] Social History Tobacco Use Types Packs/Day Years Used Date Never Smoker Smokeless Tobacco: Never Used Sex Assigned at Date Recorded Not on file documented as of this encounter Plan of Treatment Upcoming Encounters Date Type Specialty Care Team Description 12/04/2021 Office Visit Hematology and Oncology Michael Romero MD [facility] [address] [place], [place] [address] (Wo rk) 12/18/2021 Office Visit Hematology and Oncology Michael Romero MD [facility] [address] [place], [place] [address] (Wo rk) 12/18/2021 Infusion Hematology and Oncology 01/01/2022 Office Visit Hematology and Oncology Michael Romero MD [facility] [address] [place], [place] [address] (Wo rk) 01/01/2022 Infusion Hematology and Oncology 01/15/2022 Office Visit Hematology and Oncology Michael Romero MD [facility] [address] [place], [place] [address] (Wo rk) 01/15/2022 Infusion Hematology and Oncology 01/29/2022 Office Visit Hematology and Oncology Michael Romero MD [facility] ONCOLOGY [place], [place] [address] (Wo rk) 01/29/2022 Infusion Hematology and Oncology 02/12/2022 Office Visit Hematology and Oncology Michael Romero MD [facility] ONCOLOGY [place], [place] [address] (Wo rk) 02/12/2022 Infusion Hematology and Oncology 02/26/2022 Office Visit Hematology and Oncology Michael Romero MD [facility] ONCOLOGY [place], [place] [address] (Wo rk) 02/26/2022 Infusion Hematology and Oncology documented as of this encounter Visit Diagnoses Not on filedocumented in this encounter Care Teams Weaving Professor Relationship Specialty Start Date End Date None PCP - General 12/03/19 None documented as of this encounter
--- OUTSIDE RECORDS SUMMARY | 2021-12-04 01:37 | XMS_ITS | Encounter Summary ---
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 [address] [place] [phone] ONCOLOGY [phone] [place], [place] [address] Social History Tobacco Use Types Packs/Day Years Used Date Never Smoker Smokeless Tobacco: Never Used Sex Assigned at Date Recorded Not on file documented as of this encounter Last Filed Vital Signs Vital Sign Reading Time Taken Comments Blood Pressure 117/57 11/06/2021 11:04 AM EDT Pulse 86 11/06/2021 11:04 AM EDT Temperature 36.7 ??C (98 ??F) 11/06/2021 11:04 AM EDT Respiratory Rate 18 11/06/2021 11:04 AM EDT Oxygen Saturation 98% 11/06/2021 11:04 AM EDT Inhaled Oxygen Concentration - - Weight 80.6 kg (177 lb 9.6 oz) 11/06/2021 11:04 AM EDT Height 160 cm (5' 2.99) 11/06/2021 11:04 AM EDT Body Mass Index 31.47 11/06/2021 11:04 AM EDT documented in this encounter Progress Notes Michael Romero MD - 11/06/2021 11:00 AM EDT Subjective Patient ID: Joy Armstrong [...] because of significant intra abdominal adhesions Path ([facility] [place]) - Omentum, mass, excision: [...] by her Romero. She is feeling generally fair. Her grandchildren were visiting and she feels more tired. She is fatigued anyway but feels it may be a littlemoreso. Her feet feel warmer and more prickly. They are uncomfortable. Her hands have some singling intermittent but not numb. 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 She has mild nausea at times, relieved with jennifer cookies. No vomiting and no diarrhea. Her weight is a few pounds lower. Soc Hx: , lives in [place], [place] Tob - Never Etoh - None Worked as [employer] and [employer]. Fam Hx: Father - Mother - breast [...] normal. Labs: WBC/ANC - 3., Hgb/Hct - 11.2/34.7, Plts - 108,000. BUN/Cr - 16/0.8. Alb - 2.9. Lytes and LFTs o/w unremarkable CEA 11/06/21 pending 10/23/21 4.4 10/09/21 4.0 09/25/21 4.3 09/11/21 3.8 08/28/21 [...] the pelvis. She was seen at [facility] and underwent resection on 12/05/2019 - path report above. 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 15 LNs seen, all negative, N0. Margins of resection - negative (cystectomy margin could not be determined). She received post-operative chemotherapy with capecitabine under the care of Dr. Chrery. She began therapy in 05/2020 and received [...] 05/26/21 she began therapy with Folfox, s/p [address] was done on 10/01/21 and was stable. She is tolerating treatment pretty well, but has had dose delays due to myelosuppression resulting in dose reduction. The labs are adequate and we will proceed with treatment today at the same dose. The symptoms of neuropathy are slowly worsening over time. We discussed this. We are going to stop the o xaliplatin at this point. She and her have some reluctance about that but understand and areagreeable to this change. The bolus 5FU will be added back at reduced dose and increased if tolerated. This had been reduced previously due to diarrhea. NGS was performed on the omental biopsy - BRAF [id number] mutation. documented in this encounter Plan of Treatment Upcoming Encounters Date Type Specialty Care Team Description 12/04/2021 Office Visit Hematology and Oncology Michael Romero MD [facility] [address] [place], [place] [address] (Wo romario) 12/04/2021 Infusion Hematology and Oncology 12/18/2021 Office Visit Hematology and Oncology Michael Romero MD [facility] [address] [place], [place] [address] (Susana doss) 12/18/2021 Infusion Hematology and Oncology 01/01/2022 Office Visit Hematology and Oncology Michael Romero MD [facility] ER [place] [id number] (Wo rk) 01/01/2022 Infusion Hematology and Oncology 01/15/2022 Office Visit Hematology and Oncology Michael Romero MD [facility] [place], [place] [address] (Wo rk) 01/15/2022 Infusion Hematology and Oncology 01/29/2022 Office Visit Hematology and Oncology Michael Romero MD [facility] [place], [place] [address] (Wo rk) 01/29/2022 Infusion Hematology and Oncology 02/12/2022 Office Visit Hematology and Oncology Michael Romero MD [facility] ONCOLOGY [place], [place] [address] (Wo rk) 02/12/2022 Infusion Hematology and Oncology 02/26/2022 Office Visit Hematology and Oncology Michael Romero MD [facility] ONCOLOGY [place], [place] [address] (Wo rk) 02/26/2022 Infusion Hematology and Oncology documented as of this encounter Visit Diagnoses Diagnosis 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
--- OUTSIDE RECORDS SUMMARY | 2021-12-04 01:37 | XMS_ITS | Clinical Summary ---
:1940 Author Organization [facility] [place] [address] Care Team Providers Name Role Phone None Primary Care Provider Unavailable Allergies Active Allergy Reactions Severity Noted Date Comments Shellfish Derived 11/26/2019 swelling Sulfamethoxazole-Trimethoprim 11/19/2019 Sulfasalazine 11/26/2019 Medications Medication Sig Dispensed Refills Start Date End Date Status ferrous sulfate 325 mg Take 325 mg by 0 Active (65 mg iron) Tablet mouth. levothyroxine (Synthroid) Take 100 mcg by 0 [...] Tablet Take 250 mg by 0 Active mouth as needed. prochlorperazine Take 1 tablet 30 tablet 0 05/22/2021 Active (Compazine) 10 mg by mouth every TabletIndications: 6 hours as Metastasis from colon needed for cancer, Primary colon Nausea. cancer with metastasis to other site Additional Information Patient not taking. Reported on 11/20/2021 high protein nutritional Take 237 mLs by mouth 7110 mL 11 Active supplement, lactose-free daily. 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 07/2021 Encounters Date Type Specialty Care Team Description 12/04/2021 Infusion Hematology and Oncology 11/26/2021 Ancillary Procedure Radiology Michael Romero MD 11/20/2021 Infusion Hematology and Primary colon cancer Oncology with metastasis to other site 11/20/2021 Office Visit Hematology and Michael Romero Stage IV Oncology [place] adenocarcinoma of small bowel 11/20/2021 Orders Only Hematology and Michael Romero-ca daysi Oncology [place] malnutrition, unspecified sev erity 11/20/2021 Orders Only Hematology and Jessie Majano Protein-macie rajiv Oncology Alexy, RN malnutrition, unspecified sev erity 11/20/2021 Orders Only Hematology and Michael Romero MD malnutrition, unspecified sev erity 11/20/2021 Unscheduled Hematology and PageLissy E, Primary col on cancer Encounter Oncology RD with metastasis to other site 11/06/2021 Infusion Hematology and Primary colon cancer Oncology with metastasis to other site 11/06/2021 Office Visit Hematology and Michael Romero Stage IV Oncology [place] adenocarcinoma of small bowel 10/23/2021 Infusion Hematology and Primary colon cancer Oncology with metastasis to other site 10/23/2021 Office Visit Hematology and Michael Romero Stage IV Oncology MD [place] adenocarcinoma of small bowel 10/20/2021 Telephone Hematology and Martha Aguilar Oncology M 10/09/2021 Infusion Hematology and Primary colon cancer Oncology with metastasis to other site 10/09/2021 Office Visit Hematology and Michael Romero Oncology [place] small intestine , stage 4 10/01/2021 Ancillary Procedure Radiology Michael Romero MD 09/25/2021 Infusion Hematology and Primary colon cancer Oncology with metastasis to other site 09/25/2021 Office Visit Hematology and Michael Romero of Oncology [place] small intestine , stage 4 09/11/2021 Infusion Hematology and Primary colon cancer Oncology with metastasis to other site 09/11/2021 Office Visit Hematology and Henri, Primary colon cancer Oncology Viktoriya Calabrese, 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 from Last 3 Months Social History Tobacco Use Types Packs/Day Years Used Date Never Smoker Smokeless Tobacco: Never Used Sex Assigned at Date Recorded Not on file Last Filed Vital Signs Vital Sign Reading Time Taken Comments Blood Pressure 111/63 11/20/2021 10:06 AM EDT Pulse 73 11/20/2021 10:06 AM EDT Temperature 36.5 ??C (97.7 ??F) 11/20/2021 10:06 AM EDT Respiratory Rate 18 11/20/2021 10:06 AM EDT Oxygen Saturation 99% 11/20/2021 10:06 AM EDT Inhaled Oxygen Concentration - - Weight 80.2 kg (176 lb 12.8 oz) 11/20/2021 10:06 AM EDT Height 160 cm (5' 2.99) 11/20/2021 10:06 AM EDT Body Mass Index 31.33 11/20/2021 10:06 AM EDT Plan of Treatment Upcoming Encounters Date Type Specialty Care Team Description 12/04/2021 Office Visit Hematology and Oncology Michael Romero MD [facility] ON[facility]OG[facility] [place], [place] [address] (Wo rk) 12/04/2021 Infusion Hematology and Oncology 12/18/2021 Office Visit Hematology and Oncology Michael Romero MD [facility] [place], [place] [address] (Wo rk) 12/18/2021 Infusion Hematology and Oncology 01/01/2022 Office Visit Hematology and Oncology Michael Romero MD [facility] [place], [place] [address] (Wo rk) 01/01/2022 Infusion Hematology and Oncology 01/15/2022 Office Visit Hematology and Oncology Michael Romero MD [facility] [place], [place] [address] (Wo rk) 01/15/2022 Infusion Hematology and Oncology 01/29/2022 Office Visit Hematology and Oncology Michael Romero MD [facility] [place], [place] [address]375 (Wo rk) 01/29/2022 Infusion Hematology and Oncology 02/12/2022 Office Visit Hematology and Oncology Michael Romero MD [facility] [place], [place] [address] (Wo rk) 02/12/2022 Infusion Hematology and Oncology 02/26/2022 Office Visit Hematology and Oncology Michael Romero MD [facility] [place], [place] [address] (Wo rk) 02/26/2022 Infusion Hematology and Oncology Health Maintenance Due [...] Associated Diagnosis Comme nts FILM LIBRARY Routine 11/26/2021 12:00 AM Results for this STORAGE ONLY CT EDT procedure ar e in CHEST ABDOMEN the results PELVIS section. CT SCAN (SCAN) 11/26/2021 12:00 AM Result s for this EDT procedure are i n the results section. LAB SCAN 11/20/2021 12:00 AM Results for this EDT procedure are i n the results section. LAB SCAN 11/09/2021 12:00 AM Results for this EDT procedure are i n the results section. LAB SCAN 10/24/2021 12:00 AM Results for [...] from Last 3 Months Results SCAN DOC: CT SCAN (11/26/2021 12:00 AM EDT)Only the most recent of2 results within the time period is included. Narrative 11/26/2021 12:00 AM EDT This result has an attachment that is no t available. Ordered by an unspecified provider. Scanning Provider MEDIA MGR SCAN EXT ORDR/RSLT Film Library- Storage Only CT Chest Abdomen Pelvis (11/26/2021 12:00 AM EDT)Only the most recent of2 resultswithin the time period is included. Specimen (Source) Anatomical Location Collection Method / Collectio n Time Received Time / Laterality Volume Narrative [facility] - 12/03/2021 9:57 AM EDT This exam is auto-finalizing. It's purpo se is for storage only. Michael Romero MD IMJose FILM LIBRARY ORDERABLES Performing Organization Address City/State/ZIP Code Phon e Number [place], [place] SCAN DOC: LAB (11/20/2021 12:00 AM EDT)Only the most recent of6 resultswithin the time period is included. Narrative 11/20/2021 12:00 AM EDT This result has an attachment that is no t available. Ordered by an unspecified provider. Scanning Provider MEDIA MGR SCAN EXT ORDR/RSLT from Last 3 Months Insurance Payer Benefit Plan / Subscriber ID Effective Dates Phone Addre ss Type Group MEDICARE MEDICARE PART A [id number] 2019-Presen [phone] [id number] [place] [id number] Care Teams Wharf Builder Relationship Specialty Start Date End Date None PCP - General 12/03/19 None
--- OUTSIDE RECORDS SUMMARY | 2021-12-04 01:37 | XMS_ITS | Encounter Summary ---
:1940 Author Organization [facility] Address [address] [place] [address] Care Team Providers Name Role Phone None Primary Care Provider Unavailable Encounter Details Date Type Department Care Team Description 11/20/2021 Orders Only [facility] Protein-calorie [facility] RN malnutrition, [address] [place] [phone] Social History Tobacco Use Types Packs/Day Years Used Date Never Smoker Smokeless Tobacco: Never Used Sex Assigned at Date Recorded Not on file documented as of this encounter Plan of Treatment Upcoming Encounters Date Type Specialty Care Team Description 12/04/2021 Office Visit Hematology and Oncology Michael Romero MD [facility] ONCOLOGY [place], [place] [address] (Wo rk) 12/04/2021 Infusion Hematology and Oncology 12/18/2021 Office Visit Hematology and Oncology Michael Romero MD [facility] [place], [place] [address] (Wo rk) 12/18/2021 Infusion Hematology and Oncology 01/01/2022 Office Visit Hematology and Oncology Michael Romero MD [facility] [place], [place] [address] (Wo rk) 01/01/2022 Infusion Hematology and Oncology 01/15/2022 Office Visit Hematology and Oncology Michael Romero MD [facility] [place], [place] [address] (Wo rk) 01/15/2022 Infusion Hematology and Oncology 01/29/2022 Office Visit Hematology and Oncology Michael Romero MD [facility] [address] [place], [place] [address] (Wo rk) 01/29/2022 Infusion Hematology and Oncology 02/12/2022 Office Visit Hematology and Oncology Michael Romero MD [facility] [address] [place], [place] [address] (Wo rk) 02/12/2022 Infusion Hematology and Oncology 02/26/2022 Office Visit Hematology and Oncology Michael Romero MD [facility] [address] [place], [place] [address] (Wo rk) 02/26/2022 Infusion Hematology and Oncology documented as of this encounter Visit Diagnoses Diagnosis Protein-calorie malnutrition, unspecifie d severity documented in this encounter Care Teams Ski Lift Operator Relationship Specialty Start Date End Date None PCP - General 12/03/19 None documented as of this encounter
--- OUTSIDE RECORDS SUMMARY | 2021-12-04 01:37 | XMS_ITS | Encounter Summary ---
:1940 Author Organization [facility] Address [address] [place] [address] Care Team Providers Name Role Phone None Primary Care Provider Unavailable Encounter Details Date Type Department Care Team Description 11/20/2021 Unscheduled Hematology/Oncology Lissy Luna, Primar y colon Encounter at [facility] RD cancer with [address] [facility] metastasis to other [place], [place] [address] site [id number] HEMATOLOGY AND [phone] [place] [address] Social History Tobacco Use Types Packs/Day Years Used Date Never Smoker Smokeless Tobacco: Never Used Sex Assigned at Date Recorded Not on file documented as of this encounter Progress Notes Lissy Luna, RD - 11/20/2021 11:55 AM EDT [facility] Initial Assessment Patient Name: Joy Armstrong Diagnosis: Adenocarcinoma, 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 Primary colon cancer with metastasis to other site C18.9 Wt Readings from Last 10 Encounters: 11/20/21 80.2 kg (176 lb 12.8 oz) 11/06/21 80.6 kg (177 lb 9.6 oz) 10/23/21 81.6 kg (180 lb) 10/09/21 82.6 kg (182 lb) 09/25/21 82.7 kg (182 lb 6.4 oz) 09/11/21 82.9 kg (182 lb 12.8 oz) 08/28/21 82.6 kg (182 lb) 08/21/21 82.3 kg (181 lb 6.4 oz) 08/07/21 83.6 kg (184 lb 4.9 oz) 07/24/21 83.6 kg (184 lb 6.4 oz) 05/26/21 185# BMI 31.33 6# weight loss in the past month (3.3% body weight) Medications: Magnesium prn, compazine prn (not taking), ferrous sulfate, synthroid, zocor, detrol LA, vitamin B12, cod liver oil, vitamin d3, vitamin c Patient began folfox on 05/26/21 for metastatic colorectal cancer. 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 Labs 11/20: Labs: WBC/ANC - 4., Hgb/Hct - 11.7/36.5, Plts - 127,000. BUN/Cr - 10/0.8. Alb - 2.8. Lytes and LFTs o/w unremarkable Nutrition Screen 11/20/2021 11/06/2021 Reason for assessment Unintentional weight loss;Symptom management - Total MST Score - 0 Functional Status 11/20/2021 Appetite Reduced compared to usual intake Patient reports that her appetite has been poor since she started treatment with folfox-6 six monthsago. Her BMs are variable. She tends to have diarrhea for a few days after treatment, but this improves the further away she gets from treatment. Diet History: 24 hour recall: Breakfast: Scrambled egg, sausage, toast Lunch: Macaroni and hamburger Dinner: 1/2 tuna fish sandwich Beverages: Vitamin water, water, occasionally soda Rarely snacks or desserts (occasionally a cookie or piece of cake) Visited with patient while in infusion today. She lives at home with her in [place]. She reports her appetite is poor and her portions have become smaller over the last few months since she started treatment on folfox. She used to drink Boost once daily and would like to have this again. Patient has [place] Medicaid which should cover the cost of this. Nutrition Diagnosis 11/20/2021 Problems Involuntary weight loss related to appetite changes and diagnosis of metastatic colorectal cancer as evidenced by 6# weight loss in the past month (3.3% body weight). Estimated needs based on 80.2 [id number] kcals (25-30 kcal/kg) 80-120 g protein (1-1.5 g/kg) 1 ml/kcal fluids Nutrition Intervention: * Recommend continuing with pattern of 3 meals per day, consider adding snacks regularly to prevent further weight loss. * Add prescription for chocolate or vanilla Boost once daily. Will fax prior authorization to [place] Medicaid. Monitoring and Evaluation: Will follow up with Joy in 2 weeks to re-evaluate. I have provided her with my card and contact information should she have any questions in the meantime. Thank you for this consult. Lissy Luna RD documented in this encounter Plan of Treatment Upcoming Encounters Date Type Specialty Care Team Description 12/04/2021 Office Visit Hematology and Oncology Michael Romero MD [facility] [address] [place] [id number] (Wo rk) 12/04/2021 Infusion Hematology and Oncology 12/18/2021 Office Visit Hematology and Oncology Michael Romero MD [facility] [address] [place], [place] [address] (Wo rk) 12/18/2021 Infusion Hematology and Oncology 01/01/2022 Office Visit Hematology and Oncology Michael Romero MD [facility] [address] [place], [place] [address] (Wo rk) 01/01/2022 Infusion Hematology and Oncology 01/15/2022 Office Visit Hematology and Oncology Michael Romero MD [facility] [address] [place], [place] [address] (Wo rk) 01/15/2022 Infusion Hematology and Oncology 01/29/2022 Office Visit Hematology and Oncology Michael Romero MD [facility] [address] [place], [place] [address] (Wo rk) 01/29/2022 Infusion Hematology and Oncology 02/12/2022 Office Visit Hematology and Oncology Michael Romero MD [facility] [place], [place] [address] (Wo rk) 02/12/2022 Infusion Hematology and Oncology 02/26/2022 Office Visit Hematology and Oncology Michael Romero MD [facility] [place], [place] [address]375 (Wo rk) 02/26/2022 Infusion Hematology and Oncology documented as of this encounter Visit Diagnoses Diagnosis Primary colon cancer with metastasis to other site documented in this encounter Care Teams Hot Metal Crane Operator Relationship Specialty Start Date End Date None PCP - General 12/03/19 None documented as of this encounter
--- OUTSIDE RECORDS SUMMARY | 2021-12-04 01:37 | XMS_ITS | Encounter Summary ---
:1940 Author Organization [facility] [place] [address] Care Team Providers Name Role Phone None Primary Care Provider Unavailable Reason for Visit Reason Comments Chemotherapy Cycle 12, Day 1 Treatment/Therapy Plan Authorization (Routine) - Authorized Specialty Diagnoses / Procedures Referred By Contact Refer red To Contact Diagnoses Primary colon cancer with metastasis to other site Michael Romero MD St[facility] Hem Onc [facility] COLORECTAL CANCER - FOLFOX-6 (14 DAY) [address] [place] [phone] Fax: Referral ID Status Reason Start Date Expiration Date Visits V isits Requested Authorized [id number] Authorized 05/08/2021 05/08/2022 20 20 Encounter Details Date Type Department Care Team Description 11/20/2021 Infusion Hematology Oncology at [facility] colon cancer with [facility] metastasis to other site [address] [place] [phone] Social History Tobacco Use Types Packs/Day Years Used Date Never Smoker Smokeless Tobacco: Never Used Sex Assigned at Date Recorded Not on file documented as of this encounter Progress Notes Curry Arechiga RN - 11/20/2021 10:30 AM EDT INFUSION THERAPY ADMINISTRATION NOTES DIAGNOSIS: GI Colorectal CA CYCLE #12: Day 1 REASON FOR VISIT: Initiation of continunous home 5FU infusion via CADD pump provided by [employer] SUBJECTIVE Joy offers no complaints. She met with Dr. Romero prior to infusion. 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 OBJECTIVE LAB DATA: Done today at [facility] for treatment. IV ACCESS: Implanted port Pre administration: Chemotherapy orders independently verified for drug name, route, and dosage per patient's height, weight and BSA by Curry Arechiga, ARYA and pharmacist on site. REACTIONS (DESCRIPTION, TIME, INTERVENTION AND EFFECTIVENESS) none HOME INFUSION - Connect Fluorouracil (5-FU) DOSE: 2,268 mg over 46 hours RATE: 3 mL/hr ROUTE: IV Port START TIME: 1140 Chemotherapy safety checks performed per protocol with Arsenio Mendoza RN. Drug amount infused verified by RN double check after approximately 15 minutes and that appropriate about had infused. Anticipated date/time of disconnect: 11/22/21 @ 0940 Plan for disconnect: does at home, Pt given disconnect kit ASSESSMENT Joy was awake, alert and tolerated treatment well. PLAN Return to clinic as scheduled. documented in this encounter Plan of Treatment Upcoming Encounters Date Type Specialty Care Team Description 12/04/2021 Office Visit Hematology and Oncology Michael Romero MD [facility] ONCOLOGY [place], [place] [address] (Wo rk) 12/04/2021 Infusion Hematology and Oncology 12/18/2021 Office Visit Hematology and Oncology Michael Romero MD [facility] ON[facility]OG[facility] [place], [place] [address] (Wo rk) 12/18/2021 Infusion Hematology and Oncology 01/01/2022 Office Visit Hematology and Oncology Michael Romero MD [facility] [place], [place] 0375 (Wo rk) 01/01/2022 Infusion Hematology and Oncology 01/15/2022 Office Visit Hematology and Oncology Michael Romero MD [facility] [place], [place] [address] (Wo rk) 01/15/2022 Infusion Hematology and Oncology 01/29/2022 Office Visit Hematology and Oncology Michael Romero MD [facility] [place], [place] [address] (Wo rk) 01/29/2022 Infusion Hematology and Oncology 02/12/2022 Office Visit Hematology and Oncology Michael Romero MD [facility] [place], [place] [address] (Wo rk) 02/12/2022 Infusion Hematology and Oncology 02/26/2022 Office Visit Hematology and Oncology Michael Romero MD [facility] [place], [place] [address] (Wo rk) 02/26/2022 Infusion Hematology and Oncology documented as of this encounter Visit Diagnoses Diagnosis Primary colon cancer with metastasis to other site documented in this encounter Administered Medications Inactive Administered Medications - up to 3 most recent administrations Medication Order MAR Action Action Date Dose Rate Site dexAMETHasone (Decadron) tablet 10 Given 11/20/2021 10:54 AM EDT 10 mg mg 10 mg, Oral, ONCE, 1 dose, On Tue11/20/21 at 1100, Administer prior to chemotherapy, Routine fluorouraciL (ADRUCIL) chemo Given 11/20/2021 11:33 AM EDT 252 m g 60.5 mL/hr injection 252 mg 252 mg (rounded from 251.9999 mg = 133.3333 mg/m2/dose ? 1.89 m2 Treatment Plan BSA from Recorded weight), Intravenous, ONCE, 1 dose, On Tue11/20/21 at 1200, Administer over 5 Minutes, Warning Vesicant/Irritant Medication fluorouraciL (AdruciL) in sodium Given 11/20/2021 11:41 AM EDT 2 ,268 mg 3 mL/hr chloride 0.9% 138 mL infusion (46 Hour - For Home Use) 2,268 mg 2,268 mg (1,200 mg/m2/dose ? 1.89 m2 Treatment Plan BSA from Recorded weight), Intravenous, ONCE, 1 dose, On Tue11/20/21 at 1330, Administer over 46 Hours, Warning Vesicant/Irritant Medication To be infused via an ambulatory infusion CADD Legacy Plus pump continuously IV at 3 mL/hr for 46 hours. Pump contains a 46 hour supply and provides 1,200 mg/m2 over 46 hours. leucovorin 350 mg in dextrose 5% New Bag 11/20/2021 11:04 AM E DT 350 mg 340 mL/hr 85 mL infusion 350 mg, Intravenous, ONCE, 1 dose, On Tue11/20/21 at 1200, Administer over 15 Minutes, May Y-site with OXALIplatin Do not administer at a rate faster than 160 milligrams/minute. palonosetron (Aloxi) (0.05 mg/mL) injection Given 11/02 10:55 AM EDT 0.25 mg 0.25 mg 0.25 mg, Intravenous, ONCE, 1 dose, On Tue11/20/21 at 1100, Administer over 30 seconds. Administer prior to chemotherapy, Routine documented in this encounter Care Teams Front Of House Manager Relationship Specialty Start Date End Date None PCP - General 12/03/19 None documented as of this encounter
--- OUTSIDE RECORDS SUMMARY | 2021-12-04 01:37 | XMS_ITS | Encounter Summary ---
:1940 Author Organization [facility] [place] [address] Care Team Providers Name Role Phone None Primary Care Provider Unavailable Reason for Visit Reason Comments Chemotherapy C10D1 Folfox Treatment/Therapy Plan Authorization (Routine) - Authorized Specialty Diagnoses / Procedures Referred By Contact Refer red To Contact Diagnoses Primary colon cancer with metastasis to other site Michael Romero MD Stj Hem Onc [facility] COLORECTAL CANCER - FOLFOX-6 (14 DAY) [address] [place] [phone] Fax: Referral ID Status Reason Start Date Expiration Date Visits V isits Requested Authorized [id number] Authorized 05/08/2021 05/08/2022 20 20 Encounter Details Date Type Department Care Team Description 10/23/2021 Infusion Hematology Oncology at [facility] colon cancer with [facility] metastasis to other site [address] [place] [phone] Social History Tobacco Use Types [...] infusion chemotherapy via CADD pump provided by [employer]. Fluorouracil 2280 mg over 46 hours, IV [...] Visit Hematology and Oncology Michael Romero MD [facility] ONCOLOGY [place], [place] [address] (Wo rk) 12/04/2021 Infusion Hematology and Oncology 12/18/2021 Office Visit Hematology and Oncology Michael Romero MD [facility] ON[facility]OG[facility] [place], [place] [address] (Wo rk) 12/18/2021 Infusion Hematology and Oncology 01/01/2022 Office Visit Hematology and Oncology Michael Romero MD [facility] ON[facility]OG[facility] [place], [place] [address]375 (Wo rk) 01/01/2022 Infusion Hematology and Oncology 01/15/2022 Office Visit Hematology and Oncology Michael Romero MD [facility] ON[facility]OG[facility] [place], [place] [address]375 (Wo rk) 01/15/2022 Infusion Hematology and Oncology 01/29/2022 Office Visit Hematology and Oncology Michael Romero MD [facility] ON[facility]OG[facility] [place], [place] [address] (Wo rk) 01/29/2022 Infusion Hematology and Oncology 02/12/2022 Office Visit Hematology and Oncology Michael Romero MD [facility] ONCOLOG[facility] [place], [place] [address]375 (Wo rk) 02/12/2022 Infusion Hematology and Oncology 02/26/2022 Office Visit Hematology and Oncology Michael Romero MD [facility] ONCOLOG[facility] [place], [place] [address]375 (Wo rk) 02/26/2022 Infusion Hematology [...] Routine documented in this encounter Care Teams 911 Operator Relationship Specialty Start Date End Date None PCP - General 12/03/19 None documented as of this encounter
--- OUTSIDE RECORDS SUMMARY | 2021-12-04 01:37 | XMS_ITS | Encounter Summary ---
:1940 Author Organization [facility] [address] Care Team Providers Name Role Phone None Primary Care Provider Unavailable Encounter Details Date Type Department Care Team Description 10/23/2021 Office Visit Hematology/Oncology Michael Romero Stage IV adenocarcinoma at [facility] MD Indy of small bowel [address] [place] [phone] ONCOLOGY [phone] [place], [place] [address] Social History Tobacco Use Types [...] of significant intra abdominal adhesions Path ([facility] review) - Omentum, mass, excision: - Metastatic [...] is stable. Soc Hx: , lives in [place], [place] Tob - Never Etoh - None Worked as [employer]. Fam Hx: Father - Mother - breast [...] in the pelvis. She was seen at [facility] and underwent resection on 12/05/2019 - path [...] MD [facility] [address] [place], [place] [address] (Wo romario) 12/04/2021 Infusion Hematology and Oncology 12/18/2021 Office Visit Hematology and Oncology Michael Romero MD [facility] [address] [place], [place] [address] (Wo romario) 12/18/2021 Infusion Hematology and Oncology 01/01/2022 Office Visit Hematology and Oncology Michael Romero MD [facility] [address] [place], [place] [address] (Wo romario) 01/01/2022 Infusion Hematology and Oncology 01/15/2022 Office Visit Hematology and Oncology Michael Romero MD [facility] ONCOLOGY [place], [place] [address] (Wo rk) 01/15/2022 Infusion Hematology and Oncology 01/29/2022 Office Visit Hematology and Oncology Michael Romero MD [facility] ONCOLOGY [place], [place] [address] (Wo rk) 01/29/2022 Infusion Hematology and Oncology 02/12/2022 Office Visit Hematology and Oncology Michael Romero MD [facility] ONCOLOGY [place], [place] [address] (Wo rk) 02/12/2022 Infusion Hematology and Oncology 02/26/2022 Office Visit Hematology and Oncology Michael Romero MD [facility] [address] [place], [place] [address] (Wo rk) 02/26/2022 Infusion Hematology and Oncology documented as of this encounter Visit Diagnoses Diagnosis Stage IV adenocarcinoma of small bowel Malignant neoplasm of small intestine, u nspecified site documented in this encounter Care Teams Peoplesoft Functional Analyst Relationship Specialty Start Date End Date None PCP - General 12/03/19 None documented as of this encounter
--- OUTSIDE RECORDS SUMMARY | 2021-12-04 01:37 | XMS_ITS | Encounter Summary ---
:1940 Author Organization [facility] [place] [address] Care Team Providers Name Role Phone None Primary Care Provider Unavailable Reason for Referral Diagnostic Test (Routine) - Authorized Specialty Diagnoses / Procedures Referred By Contact Refer red To Contact Radiology Diagnoses Stage IV adenocarcinoma of small bowel Michael Romero MD Procedures CT Chest Abdomen Pelvis w Contrast (Generic) [facility] [place] [address] Referral ID Status Reason Start Expiration Visits Visits Date Date Requested Authorized [id number] Authorized Specialty 11/20/2021 05/23/2023 1 1 Service Requested Encounter Details Date Type Department Care Team Description 11/20/2021 Office Visit Hematology/Oncology Michael Romero Stage IV adenocarcinoma at [facility] MD Indy of small bowel [address] [place] [phone] ONCOLOGY [phone] [place], [place] [address] Social History Tobacco Use Types [...] Mass Index 31.33 11/20/2021 10:06 AM EDT documented in this encounter Progress Notes Michael Romero MD - 11/20/2021 10:00 AM EDT Subjective Patient ID: Joy [...] because of significant intra abdominal adhesions Path ([facility] review) - Omentum, mass, excision: - Metastatic [...] 05/26/21 - Began therapy with Folfox, s/p 11 cycles. Oxaliplatin omitted beginning with cycle [address] c/a/p 07/22/21 Chest - Impression: [...] today by her Romero. She is feeling pretty well overall. Oxaliplatin was omitted with the last cycle. The symptoms of neuropathy are about the same. Her bowel habits are about the same. She has noticed some nodularity of the abdominal wall in a couple of locations, one in the RLQ and one on the left although she cannot feel the area on the left today. Soc Hx: , lives in [place], [place] Tob - Never Etoh - None Worked as [employer] and [email or web address]. Fam Hx: Father - Mother - breast [...] Normal rate and regular rhythm. Pulmonary: Effort: No respiratory distress. Breath sounds: No wheezing or rales. Chest: Breasts: Right: No supraclavicular adenopathy. Left: No supraclavicular adenopathy. Abdominal: General: There is no distension. Tenderness: There is no abdominal tenderness. There is no guarding. Comments: Nodularity of abdominal wall noted RLQ at site of prior ostomy. No mass or abnormality noted on the left. Musculoskeletal: General: No swelling. Lymphadenopathy: Cervical: No cervical adenopathy. Upper Body: Right upper body: No supraclavicular adenopathy. Left upper body: No supraclavicular adenopathy. Skin: General: Skin is warm and dry. Findings: No rash. Neurological: General: No focal deficit present. Mental Status: She is alert. Coordination: Coordination normal. Psychiatric: Mood and Affect: Mood normal. Labs: WBC/ANC - 4., Hgb/Hct - 11.7/36.5, Plts - 127,000. BUN/Cr - 10/0.8. Alb - 2.8. Lytes and LFTs o/w unremarkable CEA 11/20/21 8 3.8 10/23/21 4.4 10/09/21 4.0 09/25/21 4.3 09/11/21 [...] in the pelvis. She was seen at [facility] and underwent resection on 12/05/2019 - path [...] 05/26/21 she began therapy with Folfox, s/p 12 cycles. Oxaliplatin omitted beginning with cycle 12. A restaging CT was done on 10/01/21 and was stable. Oxaliplatin was omitted with the last cycle due to persistent neuropathy. She tolerated therapy well. The symptoms of neuropathy are about the same. We will go ahead today, again without the oxaliplatin and see her in two weeks with a restaging CT scan. NGS was performed on the omental biopsy - BRAF [id number] mutation. documented in this encounter Plan of Treatment Upcoming Encounters Date Type Specialty Care Team Description 12/04/2021 Office Visit Hematology and Oncology Michael Romero MD [facility] [address] [place], [place] [address] (Wo rk) 12/04/2021 Infusion Hematology and Oncology 12/18/2021 Office Visit Hematology and Oncology Michael Romero MD [facility] [address] [place], [place] [address] (Wo rk) 12/18/2021 Infusion Hematology and Oncology 01/01/2022 Office Visit Hematology and Oncology Michael Romero MD [facility] [address] [place], [place] [address] (Wo rk) 01/01/2022 Infusion Hematology and Oncology 01/15/2022 Office Visit Hematology and Oncology Michael Romero MD [facility] [address] [place], [place] [address] (Wo rk) 01/15/2022 Infusion Hematology and Oncology 01/29/2022 Office Visit Hematology and Oncology Michael Romero MD [facility] [address] [place], [place] [address] (Wo rk) 01/29/2022 Infusion Hematology and Oncology 02/12/2022 Office Visit Hematology and Oncology Michael Romero MD [facility] [address] [place] [place], [place] [address] (Wo rk) 02/12/2022 Infusion Hematology and Oncology 02/26/2022 Office Visit Hematology and Oncology Michael Romero MD [facility] [address] [place], [place] [address] (Wo rk) 02/26/2022 Infusion Hematology and Oncology Scheduled Orders Name Type Priority Associated Diagnoses Order S chedule CT Chest Abdomen Imaging Routine Stage IV adenocarcinoma of Expected: Pelvis w Contrast small bowel 12/02/2021 , Expires: (Generic) 06/03/2022 documented as of this encounter Visit Diagnoses Diagnosis Stage IV adenocarcinoma of small bowel Malignant neoplasm of small intestine, u nspecified site documented in this encounter Care Teams Expediter Service Order Relationship Specialty Start Date End Date None PCP - General 12/03/19 None documented as of this encounter
--- OUTSIDE RECORDS SUMMARY | 2021-12-04 01:37 | XMS_ITS | Encounter Summary ---
:1940 Author Organization [facility] [place] [address] Care Team Providers Name Role Phone None Primary Care Provider Unavailable Reason for Visit Reason Comments Chemotherapy Cycle 11, Day 1 Treatment/Therapy Plan Authorization (Routine) - Authorized Specialty Diagnoses / Procedures Referred By Contact Refer red To Contact Diagnoses Primary colon cancer with metastasis to other site Michael Romero MD [facility] Infusion Procedures [facility] COLORECTAL CANCER - FOLFOX-6 (14 DAY) [address] [place] [phone] Fax: Referral ID Status Reason Start Date Expiration Date Visits V isits Requested Authorized [id number] Authorized 05/08/2021 05/08/2022 20 20 Encounter Details Date Type Department Care Team Description 11/06/2021 Infusion Hematology Oncology at [facility] colon cancer with [facility] metastasis to other site [address] [place] [phone] Social History Tobacco Use Types Packs/Day Years Used Date Never Smoker Smokeless Tobacco: Never Used Sex Assigned at Date Recorded Not on file documented as of this encounter Progress Notes Curry Arechiga RN - 11/06/2021 11:30 AM EDT INFUSION THERAPY ADMINISTRATION NOTES DIAGNOSIS: GI Colorectal CA CYCLE #11: Day 1 REASON FOR VISIT: Initiation of continunous home 5FU infusion via CADD pump provided by [employer] SUBJECTIVE Joy offers no complaints. She met with Dr. Romero prior to infusion. 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 OBJECTIVE LAB DATA: Done today at [facility] for treatment. IV ACCESS: Implanted port Pre administration: Chemotherapy orders independently verified for drug name, route, and dosage per patient's height, weight and BSA by Curry Arechiga, ARYA and pharmacist on site. REACTIONS (DESCRIPTION, TIME, INTERVENTION AND EFFECTIVENESS) none HOME INFUSION - Connect Fluorouracil (5-FU) DOSE: 2,268 mg over 46 hours RATE: 3 mL/hr ROUTE: IV Port START TIME: 1302 Chemotherapy safety checks performed per protocol with ARYA Gonzalez. Drug amount infused verified by RN double check after approximately 15 minutes and that appropriate about had infused. Anticipated date/time of disconnect: 11/08/21 @ ~1100 Plan for disconnect: does at home, Pt given disconnect ki t ASSESSMENT Joy was awake, alert and tolerated treatment well. PLAN Return to clinic as scheduled. documented in this encounter Plan of Treatment Upcoming Encounters Date Type Specialty Care Team Description 12/04/2021 Office Visit Hematology and Oncology Michael Romero MD [facility] ONCOLOGY [place], [place] [address] (Susana rk) 12/04/2021 Infusion Hematology and Oncology 12/18/2021 Office Visit Hematology and Oncology Michael Romero MD [facility] ONCOLOGY [place], [place] [address] (Wo rk) 12/18/2021 Infusion Hematology and Oncology 01/01/2022 Office Visit Hematology and Oncology Michael Romero MD [facility] ONCOLOGY [place], [place] [address] (Wo rk) 01/01/2022 Infusion Hematology and Oncology 01/15/2022 Office Visit Hematology and Oncology Michael Romero MD [facility] ONCOLOGY [place], [place] [address] (Wo rk) 01/15/2022 Infusion Hematology and Oncology 01/29/2022 Office Visit Hematology and Oncology Michael Romero MD [facility] ONCOLOGY [place], [place] [address] (Wo rk) 01/29/2022 Infusion Hematology and Oncology 02/12/2022 Office Visit Hematology and Oncology Michael Romero MD [facility] ONCOLOGY [place], [place] [address] (Wo rk) 02/12/2022 Infusion Hematology and Oncology 02/26/2022 Office Visit Hematology and Oncology Michael Romero MD [facility] ONCOLOGY [place], [place] [address] (Wo rk) 02/26/2022 Infusion Hematology and Oncology documented as of this encounter Visit Diagnoses Diagnosis Primary colon cancer with metastasis to other site documented in this encounter Administered Medications Inactive Administered Medications - up to 3 most recent administrations Medication Order MAR Action Action Date Dose Rate Site dexAMETHasone (Decadron) tablet 10 Given 11/06/2021 12:06 PM EDT 10 mg mg 10 mg, Oral, ONCE, 1 dose, On Tue11/06/21 at 1200, Administer prior to chemotherapy, Routine fluorouraciL (ADRUCIL) chemo Given 11/06/2021 12:54 PM EDT 252 m g 60.5 mL/hr injection 252 mg 252 mg (rounded from 251.9999 mg = 133.3333 mg/m2/dose ? 1.89 m2 Treatment Plan BSA from Recorded weight), Intravenous, ONCE, 1 dose, On Tue11/06/21 at 1300, Administer over 5 Minutes, Warning Vesicant/Irritant Medication fluorouraciL (AdruciL) in sodium Given 11/06/2021 1:02 PM EDT 2, 268 mg 3 mL/hr chloride 0.9% 138 mL infusion (46 Hour - For Home Use) 2,268 mg 2,268 mg (1,200 mg/m2/dose ? 1.89 m2 Treatment Plan BSA from Recorded weight), Intravenous, ONCE, 1 dose, On Tue11/06/21 at 1430, Administer over 46 Hours, Warning Vesicant/Irritant Medication To be infused via an ambulatory infusion CADD Legacy Plus pump continuously IV at 3 mL/hr for 46 hours. Pump contains a 46 hour supply and provides 1,200 mg/m2 over 46 hours. leucovorin 350 mg in dextrose 5% New Bag 11/06/2021 12:11 PM E DT 350 mg 340 mL/hr 85 mL infusion 350 mg, Intravenous, ONCE, 1 dose, On Tue11/06/21 at 1300, Administer over 15 Minutes, May Y-site with OXALIplatin Do not administer at a rate faster than 160 milligrams/minute. palonosetron (Aloxi) (0.05 mg/mL) injection Given 08/2021 12:07 PM EDT 0.25 mg 0.25 mg 0.25 mg, Intravenous, ONCE, 1 dose, On Tue11/06/21 at 1200, Administer over 30 seconds. Administer prior to chemotherapy, Routine documented in this encounter Care Teams Rig Site Engineer Relationship Specialty Start Date End Date None PCP - General 12/03/19 None documented as of this encounter
--- OUTSIDE RECORDS SUMMARY | 2021-12-04 01:37 | XMS_ITS | Encounter Summary ---
:1940 Author Organization [facility] [place] [address] Care Team Providers Name Role Phone None Primary Care Provider Unavailable Encounter Details Date Type Department Care Team Description 10/20/2021 [facility] [address] [phone] Social History Tobacco Use [...] Visit Hematology and Oncology Michael Romero MD [facility] ONCOLOGY [place], [place] [address] (Wo rk) 12/04/2021 Infusion Hematology and Oncology 12/18/2021 Office Visit Hematology and Oncology Michael Romero MD [facility] ONCOLOGY [place], [place] [address] (Wo rk) 12/18/2021 Infusion Hematology and Oncology 01/01/2022 Office Visit Hematology and Oncology Michael Romero MD [facility] ONCOLOGY [place], [place] [address] (Wo rk) 01/01/2022 Infusion Hematology and Oncology 01/15/2022 Office Visit Hematology and Oncology Michael Romero MD [facility] ONCOLOGY [place], [place] [address] (Wo rk) 01/15/2022 Infusion Hematology and Oncology 01/29/2022 Office Visit Hematology and Oncology Michael Romero MD [facility] ONCOLOGY [place], [place] [address] (Wo rk) 01/29/2022 Infusion Hematology and Oncology 02/12/2022 Office Visit Hematology and Oncology Michael Romero MD [facility] ONCOLOGY [place], [place] [address] (Wo rk) 02/12/2022 Infusion Hematology and Oncology 02/26/2022 Office Visit Hematology and Oncology Michael Romero MD [facility] ONCOLOGY [place], [place] [address] (Wo rk) 02/26/2022 Infusion Hematology and Oncology documented as of this encounter Visit Diagnoses Not on filedocumented in this encounter Care Teams Housekeeper Relationship Specialty Start Date End Date None PCP - General 12/03/19 None documented as of this encounter
--- OUTSIDE RECORDS SUMMARY | 2021-12-04 01:37 | XMS_ITS | Encounter Summary ---
:1940 Author Organization [facility] Address [facility] [address] [place] [address] Care Team Providers Name Role Phone None Primary Care Provider Unavailable Encounter Details Date Type Department Care Team Description 11/20/2021 Orders Only Hematology and Michael Romero, Protein -calorie Oncology at [facility] MD malnutrition, [facility] uns pecified [place] [phone] ONCOLOGY [phone] [place], [place] [address] Social History Tobacco Use Types Packs/Day Years Used Date Never Smoker Smokeless Tobacco: Never Used Sex Assigned at Date Recorded Not on file documented as of this encounter Plan of Treatment Upcoming Encounters Date Type Specialty Care Team Description 12/04/2021 Office Visit Hematology and Oncology Michael Romero MD [facility] [address] [place] [place], [place] [address] (Wo rk) 12/04/2021 Infusion Hematology and Oncology 12/18/2021 Office Visit Hematology and Oncology Michael Romero MD [facility] [address] [place], [place] [address] (Wo rk) 12/18/2021 Infusion Hematology and Oncology 01/01/2022 Office Visit Hematology and Oncology Michael Romero MD [facility] [address] [place] [address] (Wo rk) 01/01/2022 Infusion Hematology and Oncology 01/15/2022 Office Visit Hematology and Oncology Michael Romero MD [facility] ONCOLOGY [place], [place] [address] (Wo rk) 01/15/2022 Infusion Hematology and Oncology 01/29/2022 Office Visit Hematology and Oncology Michael Romero MD [facility] ONCOLOGY [place], [place] [address] (Wo rk) 01/29/2022 Infusion Hematology and Oncology 02/12/2022 Office Visit Hematology and Oncology Michael Romero MD [facility] ONCOLOGY [place], [place] [address] (Wo rk) 02/12/2022 Infusion Hematology and Oncology 02/26/2022 Office Visit Hematology and Oncology Michael Romero MD [facility] ONCOLOGY [place], [place] [address] (Wo rk) 02/26/2022 Infusion Hematology and Oncology documented as of this encounter Visit Diagnoses Diagnosis Protein-calorie malnutrition, unspecifie d severity documented in this encounter Care Teams Printing Table Worker Relationship Specialty Start Date End Date None PCP - General 12/03/19 None documented as of this encounter
--- OUTSIDE RECORDS SUMMARY | 2021-12-04 01:37 | XMS_ITS | Encounter Summary ---
:1940 [place] [address] Care Team Providers Name Role Phone None Primary Care Provider Unavailable Encounter Details Date Type Department Care Team Description 11/26/2021 Ancillary Procedure Radiology Library at Jorge Romero [facility] [place] [address] ONCOLOGY [phone] [place], [place] [address] (Wo rk) Social History Tobacco Use Types Packs/Day Years Used Date Never Smoker Smokeless Tobacco: Never Used Sex Assigned at Date Recorded Not on file documented as of this encounter Plan of Treatment Upcoming Encounters Date Type Specialty Care Team Description 12/04/2021 Office Visit Hematology and Oncology Michael Romero MD [facility] [address] [place], [place] [address] (Wo rk) 12/04/2021 Infusion Hematology and Oncology 12/18/2021 Office Visit Hematology and Oncology Michael Romero MD [facility] [address] [place], [place] [address] (Wo rk) 12/18/2021 Infusion Hematology and Oncology 01/01/2022 Office Visit Hematology and Oncology Michael Romero MD [facility] ONCOLOGY [place], [place] [address] (Wo rk) 01/01/2022 Infusion Hematology and Oncology 01/15/2022 Office Visit Hematology and Oncology Michael Romero MD [facility] ONCOLOGY [place], [place] [address] (Wo rk) 01/15/2022 Infusion Hematology and Oncology 01/29/2022 Office Visit Hematology and Oncology Michael Romero MD [facility] ONCOLOGY [place], [place] [address] (Wo rk) 01/29/2022 Infusion Hematology and Oncology 02/12/2022 Office Visit Hematology and Oncology Michael Romero MD [facility] ONCOLOGY [place], [place] [address] (Wo rk) 02/12/2022 Infusion Hematology and Oncology 02/26/2022 Office Visit Hematology and Oncology Michael Romero MD [facility] ONCOLOGY [place], [place] [address] (Wo rk) 02/26/2022 Infusion Hematology and Oncology documented as of this encounter Procedures Procedure Name Priority Date/Time Associated Diagnosis Comme nts FILM LIBRARY Routine 11/26/2021 12:00 AM Results for this STORAGE ONLY CT EDT procedure ar e in CHEST ABDOMEN the results PELVIS section. documented in this encounter Results Film Library- Storage Only CT Chest Abdomen Pelvis (11/26/2021 12:00 AM EDT) Specimen (Source) Anatomical Location Collection Method / Collectio n Time Received Time / Laterality Volume Narrative ANGELICA HAY - 12/03/2021 9:57 AM EDT This exam is auto-finalizing. It's purpo se is for storage only. Michael Romero MD IMJose FILM LIBRARY ORDERABLES Performing Organization Address City/State/ZIP Code Phon e Number BHARTI [place], [place] documented in this encounter Visit Diagnoses Not on filedocumented in this encounter Care Teams Laundry Press Operator Relationship Specialty Start Date End Date None PCP - General 12/03/19 None documented as of this encounter
--- OUTSIDE RECORDS SUMMARY | 2021-12-04 01:38 | XMS_ITS | Encounter Summary ---
:1940 Author Organization [facility] Address [place] [id number] Care Team Providers Name Role Phone None Primary Care Provider Unavailable Reason for Visit Reason Comments IV Access Chemo held - Port Flush and De-Access Encounter Details Date Type Department Care Team Description 07/16/2021 Infusion Hematology Oncology at [facility] colon cancer with [facility] metastasis to other site [address] [place] [phone] Social History Tobacco Use Types [...] OBJECTIVE LAB DATA: Labs drawn today at [facility]. Wbc 3.96, hgb 12.4, plts 286k, anc [...] Visit Hematology and Oncology Michael Romero MD [facility] ONCOLOGY [place], [place] [address] (Wo rk) 12/04/2021 Infusion Hematology and Oncology 12/18/2021 Office Visit Hematology and Oncology Michael Romero MD [facility] ONCOLOGY [place], [place] [address] (Wo rk) 12/18/2021 Infusion Hematology and Oncology 01/01/2022 Office Visit Hematology and Oncology Michael Romero MD [facility] ONCOLOGY [place], [place] [address] (Wo rk) 01/01/2022 Infusion Hematology and Oncology 01/15/2022 Office Visit Hematology and Oncology Michael Romero MD [facility] ONCOLOGY [place], [place] [address] (Wo rk) 01/15/2022 Infusion Hematology and Oncology 01/29/2022 Office Visit Hematology and Oncology Michael Romero MD [facility] ONCOLOGY [place], [place] [address] (Wo rk) 01/29/2022 Infusion Hematology and Oncology 02/12/2022 Office Visit Hematology and Oncology Michael Romero MD [facility] ONCOLOGY [place], [place] [address] (Wo rk) 02/12/2022 Infusion Hematology and Oncology 02/26/2022 Office Visit Hematology and Oncology Michael Romero MD [facility] ONCOLOGY [place], [place] [address] (Wo rk) 02/26/2022 Infusion Hematology and Oncology documented as of this encounter Visit Diagnoses Diagnosis Primary colon cancer with metastasis to other site documented in this encounter Care Teams Executive Consultant Relationship Specialty Start Date End Date None PCP - General 12/03/19 None documented as of this encounter
--- OUTSIDE RECORDS SUMMARY | 2021-12-04 01:38 | XMS_ITS | Encounter Summary ---
:1940 Author Organization [facility] [place] [address] Care Team Providers Name Role Phone None Primary Care Provider Unavailable Encounter Details Date Type Department Care Team Description 08/28/2021 Orders Only Hematology and Oncology at [facility] Michael amanda MD [facility] [place] [address] [place] [address] [phone] (Wo rk) Social History Tobacco Use Types Packs/Day Years Used Date Never Smoker Smokeless Tobacco: Never Used Sex Assigned at Date Recorded Not on file documented as of this encounter Plan of Treatment Upcoming Encounters Date Type Specialty Care Team Description 12/04/2021 Office Visit Hematology and Oncology Michael Romero MD [facility] ONCOLOGY [place], [place] 0375 (Wo rk) 12/04/2021 Infusion Hematology and Oncology 12/18/2021 Office Visit Hematology and Oncology Michael Romero MD [facility] ONCOLOGY [place], [place] 0375 (Wo rk) 12/18/2021 Infusion Hematology and Oncology 01/01/2022 Office Visit Hematology and Oncology Michael Romero MD [facility] ONCOLOGY [place], [place] 0375 (Wo rk) 01/01/2022 Infusion Hematology and Oncology 01/15/2022 Office Visit Hematology and Oncology Michael Romero MD [facility] ONCOLOGY [place], [place] 0375 (Wo rk) 01/15/2022 Infusion Hematology and Oncology 01/29/2022 Office Visit Hematology and Oncology Michael Romero MD [facility] [address] [place] [place], [place] 0375 (Wo rk) 01/29/2022 Infusion Hematology and Oncology 02/12/2022 Office Visit Hematology and Oncology Michael Romero MD [facility] ONCOLOGY [place], [place] 0375 (Wo rk) 02/12/2022 Infusion Hematology and Oncology 02/26/2022 Office Visit Hematology and Oncology Michael Romero MD [facility] [address] [place] [place], [place] 0375 (Wo rk) 02/26/2022 Infusion Hematology and Oncology documented as of this encounter Visit Diagnoses Not on filedocumented in this encounter Care Teams Manager Sales Support Relationship Specialty Start Date End Date None PCP - General 12/03/19 None documented as of this encounter
--- OUTSIDE RECORDS SUMMARY | 2021-12-04 01:38 | XMS_ITS | Encounter Summary ---
:1940 Author Organization [facility] [place] [address] Care Team Providers Name Role Phone None Primary Care Provider Unavailable Encounter Details Date Type Department Care Team Description 04/01/2021 External Results Medical Records Provider, [place] [address] Social History Tobacco Use Types Packs/Day Years Used Date Never Smoker Smokeless Tobacco: Never Used Sex Assigned at Date Recorded Not on file documented as of this encounter Plan of Treatment Upcoming Encounters Date Type Specialty Care Team Description 12/04/2021 Office Visit Hematology and Oncology Michael Romero MD [facility] ONCOLOGY [place], [place] [address]375 (Wo rk) 12/04/2021 Infusion Hematology and Oncology 12/18/2021 Office Visit Hematology and Oncology Michael Romero MD [facility] ONCOLOGY [place], [place] 0375 (Wo rk) 12/18/2021 Infusion Hematology and Oncology 01/01/2022 Office Visit Hematology and Oncology Michael Romero MD [facility] ONCOLOGY [place], [place] 0375 (Wo rk) 01/01/2022 Infusion Hematology and Oncology 01/15/2022 Office Visit Hematology and Oncology Michael Romero MD [facility] ONCOLOGY [place], [place] 0375 (Wo rk) 01/15/2022 Infusion Hematology and Oncology 01/29/2022 Office Visit Hematology and Oncology Michael Romero MD [facility] ER ONCOLOGY [place], [place] 0375 (Wo rk) 01/29/2022 Infusion Hematology and Oncology 02/12/2022 Office Visit Hematology and Oncology Michael Romero MD [facility] ONCOLOGY [place], [place] 0375 (Wo rk) 02/12/2022 Infusion Hematology and Oncology 02/26/2022 Office Visit Hematology and Oncology Michael Romero MD [facility] ONCOLOGY [place], [place] 0375 (Wo rk) 02/26/2022 Infusion Hematology [...] is no t available. Historical Provider MD MLAONEY MGR SCAN EXT ORDR/RSLT documented in this encounter Visit Diagnoses Not on filedocumented in this encounter Care Teams Assembler Insulator Relationship Specialty Start Date End Date None PCP - General 12/03/19 None documented as of this encounter
--- OUTSIDE RECORDS SUMMARY | 2021-12-04 01:38 | XMS_ITS | Encounter Summary ---
:1940 Author Organization [facility] [place] [address] Care Team Providers Name Role Phone None Primary Care Provider Unavailable Encounter Details Date Type Department Care Team Description 06/12/2021 Orders Only Hematology/Oncology [facility] [address] MEDICAL ONCOLOGY [facility] [phone] Social History Tobacco Use Types Packs/Day Years Used Date Never Smoker Smokeless Tobacco: Never Used Sex Assigned at Date Recorded Not on file documented as of this encounter Plan of Treatment Upcoming Encounters Date Type Specialty Care Team Description 12/04/2021 Office Visit Hematology and Oncology Michael Romero MD [facility] ONCOLOGY [place], [place] 0[address] (Wo rk) 12/04/2021 Infusion Hematology and Oncology 12/18/2021 Office Visit Hematology and Oncology Michael Romero MD [facility] ONCOLOGY [place], [place] 0375 (Wo rk) 12/18/2021 Infusion Hematology and Oncology 01/01/2022 Office Visit Hematology and Oncology Michael Romero MD [facility] ONCOLOGY [place], [place] 0375 (Wo rk) 01/01/2022 Infusion Hematology and Oncology 01/15/2022 Office Visit Hematology and Oncology Michael Romero MD [facility] ONCOLOGY [place], [place] 0375 (Wo rk) 01/15/2022 Infusion Hematology and Oncology 01/29/2022 Office Visit Hematology and Oncology Michael Romero MD [facility] ONCOLOGY [place], [place] 0375 (Wo rk) 01/29/2022 Infusion Hematology and Oncology 02/12/2022 Office Visit Hematology and Oncology Michael Romero MD [facility] ONCOLOGY [place], [place] 0375 (Wo rk) 02/12/2022 Infusion Hematology and Oncology 02/26/2022 Office Visit Hematology and Oncology Michael Romero MD [facility] [address] [place] [place], [place] 0375 (Wo rk) 02/26/2022 Infusion Hematology and Oncology documented as of this encounter Visit Diagnoses Not on filedocumented in this encounter Care Teams Bolt Sorter Relationship Specialty Start Date End Date None PCP - General 12/03/19 None documented as of this encounter
--- OUTSIDE RECORDS SUMMARY | 2021-12-04 01:38 | XMS_ITS | Encounter Summary ---
:1940 Author Organization [facility] [place] [address] Care Team Providers Name Role Phone None Primary Care Provider Unavailable Reason for Visit Reason Comments Chemotherapy Folfox # 2 Treatment/Therapy Plan Authorization (Routine) - Authorized Specialty Diagnoses / Procedures Referred By Contact Refer red To Contact Diagnoses Primary colon cancer with metastasis to other site Michael Romero MD [facility] COLORECTAL CANCER - FOLFOX-6 (14 DAY) [address] [place] [phone] Fax: Referral ID Status Reason Start Date Expiration Date Visits V isits Requested Authorized [id number] Authorized 05/08/2021 05/08/2022 20 20 Encounter Details Date Type Department Care Team Description 06/12/2021 Infusion Hematology Oncology at [facility] colon cancer with [facility] metastasis to other site [address] [place] [phone] Social History Tobacco Use Types [...] Visit Hematology and Oncology Michael Romero MD [facility] ONCOLOGY [place], [place] 0375 (Wo rk) 12/04/2021 Infusion Hematology and Oncology 12/18/2021 Office Visit Hematology and Oncology Michael Romero MD [facility] ONCOLOGY [place], [place] 0375 (Wo rk) 12/18/2021 Infusion Hematology and Oncology 01/01/2022 Office Visit Hematology and Oncology Michael Romero MD [facility] ONCOLOGY [place], [place] 0375 (Wo rk) 01/01/2022 Infusion Hematology and Oncology 01/15/2022 Office Visit Hematology and Oncology Michael Romero MD [facility] ONCOLOGY [place], [place] 0375 (Wo rk) 01/15/2022 Infusion Hematology and Oncology 01/29/2022 Office Visit Hematology and Oncology Michael Romero MD [facility] ONCOLOGY [place], [place] 0375 (Wo rk) 01/29/2022 Infusion Hematology and Oncology 02/12/2022 Office Visit Hematology and Oncology Michael Romero MD [facility] ONCOLOGY [place], [place] 0375 (Wo rk) 02/12/2022 Infusion Hematology and Oncology 02/26/2022 Office Visit Hematology and Oncology Michael Romero MD [facility] ONCOLOGY [place], [place] 0375 (Wo rk) 02/26/2022 Infusion [...] Routine documented in this encounter Care Teams Movement Therapist Relationship Specialty Start Date End Date None PCP - General 12/03/19 None documented as of this encounter
--- OUTSIDE RECORDS SUMMARY | 2021-12-04 01:38 | XMS_ITS | Encounter Summary ---
:1940 Author Organization [facility] [address] Care Team Providers Name Role Phone None Primary Care Provider Unavailable Reason for Visit Reason Comments IV Medication Cycle 5, Day 1 - Folfox, no push Treatment/Therapy Plan Authorization (Routine) - Authorized Specialty Diagnoses / Procedures Referred By Contact Refer red To Contact Diagnoses Primary colon cancer with metastasis to other site Michael Romero MD Stj Hem Onc Infusion Procedures [facility] AMB ONC GI COLORECTAL CANCER - FOLFOX-6 (14 DAY) [address] [place] [phone] Fax: Referral ID Status Reason Start Date Expiration Date Visits V isits Requested Authorized [id number] Authorized 05/08/2021 05/08/2022 20 20 Encounter Details Date Type Department Care Team Description 08/07/2021 Infusion Hematology Oncology at [facility] colon cancer with [facility] metastasis to other site [address] [place] [phone] Social History Tobacco Use Types [...] tolerated treatment well. CADD pump provided by [employer], pump was double checked by Lori Soto, [...] and Oncology Michael Romero MD [facility] [address] [place], [place] 0375 (Wo rk) 12/04/2021 Infusion Hematology and Oncology 12/18/2021 Office Visit Hematology and Oncology Michael Romero MD [facility] [address] [place], [place] 0375 (Wo rk) 12/18/2021 Infusion Hematology and Oncology 01/01/2022 Office Visit Hematology and Oncology Michael Romero MD [facility] [address] [place] 0375 (Wo rk) 01/01/2022 Infusion Hematology and Oncology 01/15/2022 Office Visit Hematology and Oncology Michael Romero MD [facility] ONCOLOGY [place], [place] 0375 (Wo rk) 01/15/2022 Infusion Hematology and Oncology 01/29/2022 Office Visit Hematology and Oncology Michael Romero MD [facility] ONCOLOGY [place], [place] 0375 (Wo rk) 01/29/2022 Infusion Hematology and Oncology 02/12/2022 Office Visit Hematology and Oncology Michael Romero MD [facility] ONCOLOGY [place], [place] 0375 (Wo rk) 02/12/2022 Infusion Hematology and Oncology 02/26/2022 Office Visit Hematology and Oncology Michael Romero MD [facility] ONCOLOGY [place], [place] 0375 (Wo rk) 02/26/2022 Infusion Hematology [...] Routine documented in this encounter Care Teams Commercial Production Editor Relationship Specialty Start Date End Date None PCP - General 12/03/19 None documented as of this encounter
--- OUTSIDE RECORDS SUMMARY | 2021-12-04 01:38 | XMS_ITS | Encounter Summary ---
:1940 Author Organization [facility] [place] [address] Care Team Providers Name Role Phone None Primary Care Provider Unavailable Reason for Referral Consultation (Routine) - Closed Specialty Diagnoses / Procedures Referred By Contact Refer red To Contact Diagnoses Primary colon cancer with metastasis to other site Michael Romero MD [place], Peter Benjamin, [facility] Slime Jacobson MD ONCOLOGY [address] [place] [id number] [place] [phone] Fax: Referral ID Status Reason Start Date Expiration Date Visits V isits Requested Authorized [id number] Closed Consult, 05/08/2021 11/04/2021 1 1 Test & Treat Encounter Details Date Type Department Care Team Description 05/08/2021 TH Visit Hematology/Oncology Michael Romero Prima ry colon cancer (TeleHealth) at [facility] MD with metastasis to [address] [place] [address] MEDICAL other site [facility] [phone] ONCOLOGY [phone] [place], [place] [address] Social History Tobacco Use Types Packs/Day Years [...] because of significant intra abdominal adhesions Path ([facility] review) - Omentum, mass, excision: - Metastatic [...] or feet. Soc Hx: , lives in [place], [place] Tob - Never Etoh - None Worked as [employer]. Fam Hx: Father - Mother - breast [...] the pelvis. She was seen at [facility] and underwent resection on 12/05/2019 - path [...] the absence of cold, laryngeal dysesthesia, fatigue, angina/[place], hypersensitivity reactions and others.?She was given informationalhandouts regarding these medications. oJy is willing to consider chemotherapy. Before making [...] Visit Hematology and Oncology Michael Romero MD [facility] [place] [address] [place], [place] 0375 (Wo rk) 12/04/2021 Infusion Hematology and Oncology 12/18/2021 Office Visit Hematology and Oncology Michael Romero MD [facility] ER [address] [place], [place] 0375 (Wo rk) 12/18/2021 Infusion Hematology and Oncology 01/01/2022 Office Visit Hematology and Oncology Michael Romero MD [facility] [address] [place], [place] 0375 (Wo rk) 01/01/2022 Infusion Hematology and Oncology 01/15/2022 Office Visit Hematology and Oncology Michael Romero MD [facility] [address] [place], [place] 0375 (Wo rk) 01/15/2022 Infusion Hematology and Oncology 01/29/2022 Office Visit Hematology and Oncology Michael Romero MD [facility] [place] [address] [place], [place] 0375 (Wo rk) 01/29/2022 Infusion Hematology and Oncology 02/12/2022 Office Visit Hematology and Oncology Michael Romero MD [facility] ER [address] [place], [place] 0375 (Wo rk) 02/12/2022 Infusion Hematology and Oncology 02/26/2022 Office Visit Hematology and Oncology Michael Romero MD [facility] ER [address] [place], [place] 0375 (Wo rk) 02/26/2022 Infusion Hematology [...] site documented in this encounter Care Teams Operater Relationship Specialty Start Date End Date None PCP - General 12/03/19 None documented as of this encounter
--- OUTSIDE RECORDS SUMMARY | 2021-12-04 01:38 | XMS_ITS | Encounter Summary ---
:1940 Author Organization [facility] [place] [address] Care Team Providers Name Role Phone None Primary Care Provider Unavailable Reason for Visit Reason Comments Chemotherapy 5fu pump disconnect Treatment/Therapy Plan Authorization (Routine) - Authorized Specialty Diagnoses / Procedures Referred By Contact Refer red To Contact Diagnoses Primary colon cancer with metastasis to other site Michael Romero MD [facility] Hem Onc [facility] GI COLORECTAL CANCER - FOLFOX-6 (14 DAY) [address] [place] [phone] Fax: Referral ID Status Reason Start Date Expiration Date Visits V isits Requested Authorized [id number] Authorized 05/08/2021 05/08/2022 20 20 Encounter Details Date Type Department Care Team Description 05/28/2021 Infusion Hematology Oncology at [facility] colon cancer with [facility] metastasis to other site [address] [place] [phone] Social History Tobacco Use Types [...] Visit Hematology and Oncology Michael Romero MD [facility] [address] [place], [place] 0375 (Wo rk) 12/04/2021 Infusion Hematology and Oncology 12/18/2021 Office Visit Hematology and Oncology Michael Romero MD [facility] [address] [place], [place] 0375 (Wo rk) 12/18/2021 Infusion Hematology and Oncology 01/01/2022 Office Visit Hematology and Oncology Michael Romero MD [facility] [address] [place], [place] 0375 (Wo rk) 01/01/2022 Infusion Hematology and Oncology 01/15/2022 Office Visit Hematology and Oncology Michael Romero MD [facility] DR [place] 0375 (Wo rk) 01/15/2022 Infusion Hematology and Oncology 01/29/2022 Office Visit Hematology and Oncology Michael Romero MD [facility] ONCOLOGY [place], [place] 0375 (Wo rk) 01/29/2022 Infusion Hematology and Oncology 02/12/2022 Office Visit Hematology and Oncology Michael Romero MD [facility] ONCOLOGY [place], [place] 0375 (Wo rk) 02/12/2022 Infusion Hematology and Oncology 02/26/2022 Office Visit Hematology and Oncology Michael Romero MD [facility] ONCOLOGY [place], [place] 0375 (Wo rk) 02/26/2022 Infusion Hematology [...] (IV) Procedure: Accessing Implanted Vascular Access Devices (564) procedure and/or Intravenous (IV) Job Aid: Adult Flushing & Catheter Care (4060) job aid for additional information regarding guidelines [...] Job Aid: Adult Flushing & Catheter Care (3424) job aid for additional information regarding guidelines and administration., Routine documented in this encounter Care Teams Language Interpreter Relationship Specialty Start Date End Date None PCP - General 12/03/19 None documented as of this encounter
--- OUTSIDE RECORDS SUMMARY | 2021-12-04 01:38 | XMS_ITS | Encounter Summary ---
:1940 Author Organization [facility] [place] [address] Care Team Providers Name Role Phone None Primary Care Provider Unavailable Reason for Referral Diagnostic Test (Routine) - Authorized Specialty Diagnoses / Procedures Referred By Contact Refer red To Contact Radiology Diagnoses Adenocarcinoma of small intestine, stage 4 Michael Romero MD Procedures CT Chest Abdomen Pelvis w Contrast (Generic) [facility] [place] [address] Referral ID Status Reason Start Expiration Visits Visits Date Date Requested Authorized [id number] Authorized Specialty 07/10/2021 01/09/2023 1 1 Service Requested Encounter Details Date Type Department Care Team Description 07/10/2021 Office Visit Hematology/Oncology Aaron Romero MD [facility] [place] [address] [facility] [address] [place] [address] MEDICAL ONCOLOGY [place], [place] [id number] intestine, stage [address] [place] [phone] Social History Tobacco Use Types Packs/Day [...] of significant intra abdominal adhesions Path ([facility] [place]) - Omentum, mass, excision: - Metastatic [...] for her. Soc Hx: , lives in [place], [place] Tob - Never Etoh - None Worked as [employer]. Fam Hx: Father - Mother - breast [...] in the pelvis. She was seen at [facility] and underwent resection on 12/05/2019 [...] the absence of cold, laryngeal dysesthesia, fatigue, angina/[place], hypersensitivity reactions and others.?She was given informationalhandouts [...] and Oncology Michael Romero MD [facility] [address] [place], [place] 0375 (Wo rk) 12/04/2021 Infusion Hematology and Oncology 12/18/2021 Office Visit Hematology and Oncology Michael Romero MD [facility] [address] [place], [place] 0375 (Wo rk) 12/18/2021 Infusion Hematology and Oncology 01/01/2022 Office Visit Hematology and Oncology Michael Romero MD [facility] [address] [place], [place] 0375 (Wo rk) 01/01/2022 Infusion Hematology and Oncology 01/15/2022 Office Visit Hematology and Oncology Michael Romero MD [facility] [address] [place], [place] 0375 (Wo rk) 01/15/2022 Infusion Hematology and Oncology 01/29/2022 Office Visit Hematology and Oncology Michael Romero MD [facility] [address] [place], [place] 0375 (Wo rk) 01/29/2022 Infusion Hematology and Oncology 02/12/2022 Office Visit Hematology and Oncology Michael Romero MD [facility] [address] [place], [place] 0375 (Wo rk) 02/12/2022 Infusion Hematology and Oncology 02/26/2022 Office Visit Hematology and Oncology Michael Romero MD [facility] [address] ONCOLOGY [place], [place] 0375 (Wo rk) 02/26/2022 Infusion Hematology [...] site documented in this encounter Care Teams Dietetics Director Relationship Specialty Start Date End Date None PCP - General 12/03/19 None documented as of this encounter
--- OUTSIDE RECORDS SUMMARY | 2021-12-04 01:38 | XMS_ITS | Encounter Summary ---
:1940 [place] [address] Care Team Providers Name Role Phone None Primary Care Provider Unavailable Encounter Details Date Type Department Care Team Description 05/05/2021 Telephone Hematology and Oncology at Pricila Iverson DO [facility] Slime snow HEMATOLOGY/[place] [address] [place] [address] [phone] (Wo rk) Social History Tobacco Use Types Packs/Day Years Used Date Never Smoker Smokeless Tobacco: Never Used Sex Assigned at Date Recorded Not on file documented as of this encounter Miscellaneous Notes Telephone Encounter - Pricila Gill DO - 05/05/2021 6:59 PM EST Patient ID: Joy Armstrong : 1940 Call from: Dr. Debbie Méndez, [facility] radiology. Joy Armstrong is a 72-year-old female [...] dangerous and may need operative intervention tonight. Jyo understood this but declined presentation tonight and [...] Gill DO Fellow, Hematology and Medical Oncology [facility] Pager: [phone], 05/05/21, 7:02 PM CC: Dr. Romero. documented in this encounter Plan of Treatment Upcoming Encounters Date Type Specialty Care Team Description 12/04/2021 Office Visit Hematology and Oncology Michael Romero MD [facility] ONCOLOGY [place], [place] 0375 (Wo rk) 12/04/2021 Infusion Hematology and Oncology 12/18/2021 Office Visit Hematology and Oncology Michael Romero MD [facility] ONCOLOGY [place], [place] 0375 (Wo rk) 12/18/2021 Infusion Hematology and Oncology 01/01/2022 Office Visit Hematology and Oncology Michael Romero MD [facility] ONCOLOGY [place], [place] 0375 (Wo rk) 01/01/2022 Infusion Hematology and Oncology 01/15/2022 Office Visit Hematology and Oncology Michael Romero MD [facility] ONCOLOGY [place], [place] 0375 (Wo rk) 01/15/2022 Infusion Hematology and Oncology 01/29/2022 Office Visit Hematology and Oncology Michael Romero MD [facility] ER ONCOLOGY [place], [place] 0375 (Wo rk) 01/29/2022 Infusion Hematology and Oncology 02/12/2022 Office Visit Hematology and Oncology Michael Romero MD [facility] ONCOLOGY [place], [place] 0375 (Wo rk) 02/12/2022 Infusion Hematology and Oncology 02/26/2022 Office Visit Hematology and Oncology Michael Romero MD [facility] ONCOLOGY [place], [place] 0375 (Wo rk) 02/26/2022 Infusion Hematology and Oncology documented as of this encounter Visit Diagnoses Not on filedocumented in this encounter Care Teams City Collector Relationship Specialty Start Date End Date None PCP - General 12/03/19 None documented as of this encounter
--- OUTSIDE RECORDS SUMMARY | 2021-12-04 01:38 | XMS_ITS | Encounter Summary ---
:1940 [place] [address] Care Team Providers Name Role Phone None Primary Care Provider Unavailable Encounter Details Date Type Department Care Team Description 06/28/2021 Telephone Hematology and Oncology at Nicolasa Goodson [facility] [place] [address] HEMATOLOGY/ONCOLOGY [phone] [place], [place] [address] (Wo rk) Social History Tobacco [...] oncology/hematology team. Nicolasa Quintana M.D. Hematology/Oncology Fellow [facility] Pager # [phone] 06/28/21, 12:10 PM documented in this encounter Plan of Treatment Upcoming Encounters Date Type Specialty Care Team Description 12/04/2021 Office Visit Hematology and Oncology Michael Romero MD [facility] ONCOLOGY [place], [place] 0[address] (Wo rk) 12/04/2021 Infusion Hematology and Oncology 12/18/2021 Office Visit Hematology and Oncology Michael Romero MD [facility] ONCOLOGY [place], [place] [address] (Wo rk) 12/18/2021 Infusion Hematology and Oncology 01/01/2022 Office Visit Hematology and Oncology Michael Romero MD [facility] ONCOLOGY [place], [place] 0375 (Wo rk) 01/01/2022 Infusion Hematology and Oncology 01/15/2022 Office Visit Hematology and Oncology Michael Romero MD [facility] [address] [place], [place] [address] (Wo rk) 01/15/2022 Infusion Hematology and Oncology 01/29/2022 Office Visit Hematology and Oncology Michael Romero MD [facility] [address] [place], [place] [address] (Wo rk) 01/29/2022 Infusion Hematology and Oncology 02/12/2022 Office Visit Hematology and Oncology Michael Romero MD [facility] [address] [place], [place] [address] (Wo rk) 02/12/2022 Infusion Hematology and Oncology 02/26/2022 Office Visit Hematology and Oncology Michael Romero MD [facility] [address] [place], [place] 0[address] (Wo rk) 02/26/2022 Infusion Hematology and Oncology documented as of this encounter Visit Diagnoses Not on filedocumented in this encounter Care Teams Data Clerk Relationship Specialty Start Date End Date None PCP - General 12/03/19 None documented as of this encounter
--- OUTSIDE RECORDS SUMMARY | 2021-12-04 01:38 | XMS_ITS | Encounter Summary ---
:1940 Author Organization [facility] [place] [address] Care Team Providers Name Role Phone None Primary Care Provider Unavailable Encounter Details Date Type Department Care Team Description 07/16/2021 Notes Only Hematology/Oncology at Claudia Gomes MSW [facility] OFFICE OF CARE [address] [place] [phone] Social History Tobacco Use Types Packs/Day Years [...] help was enough. Encourage her to let FARM MACHINE TENDER or herclinic nurse know next visit and we can explore other resources. Reminded pt of FARM MACHINE TENDER availability and contact information. Will continue to follow. Supportive Counseling Food insecurity resources Transportation resources documented in this encounter Plan of Treatment Upcoming Encounters Date Type Specialty Care Team Description 12/04/2021 Office Visit Hematology and Oncology Michael Romero MD [facility] ONCOLOGY [place], [place] [address] (Wo rk) 12/04/2021 Infusion Hematology and Oncology 12/18/2021 Office Visit Hematology and Oncology Michael Romero MD [facility] ONCOLOGY [place], [place] [address]375 (Wo rk) 12/18/2021 Infusion Hematology and Oncology 01/01/2022 Office Visit Hematology and Oncology Michael Romero MD [facility] [address] [place], [place] [address]375 (Wo rk) 01/01/2022 Infusion Hematology and Oncology 01/15/2022 Office Visit Hematology and Oncology Michael Romero MD [facility] ONCOLOGY [place], [place] 0375 (Wo rk) 01/15/2022 Infusion Hematology and Oncology 01/29/2022 Office Visit Hematology and Oncology Michael Romero MD [facility] [address] [place], [place] [address]375 (Wo rk) 01/29/2022 Infusion Hematology and Oncology 02/12/2022 Office Visit Hematology and Oncology Michael Romero MD [facility] ONCOLOGY [place], [place] 0375 (Wo rk) 02/12/2022 Infusion Hematology and Oncology 02/26/2022 Office Visit Hematology and Oncology Michael Romero MD [facility] ONCOLOGY [place], [place] 0375 (Wo rk) 02/26/2022 Infusion Hematology and Oncology documented as of this encounter Visit Diagnoses Not on filedocumented in this encounter Care Teams Regulatory Analyst Relationship Specialty Start Date End Date None PCP - General 12/03/19 None documented as of this encounter
--- OUTSIDE RECORDS SUMMARY | 2021-12-04 01:38 | XMS_ITS | Encounter Summary ---
:1940 Author Organization [facility] [place] [address] Care Team Providers Name Role Phone None Primary Care Provider Unavailable Reason for Visit Reason Comments Chemotherapy FOLFOX (Modified - no bolus) Treatment/Therapy Plan Authorization (Routine) - Authorized Specialty Diagnoses / Procedures Referred By Contact Refer red To Contact Diagnoses Primary colon cancer with metastasis to other site Michael Romero MD [facility] In[facility] COL[facility] - FOLFOX-6 (14 DAY) [address] [place] [phone] Fax: Referral ID Status Reason Start Date Expiration Date Visits V isits Requested Authorized [id number] Authorized 05/08/2021 05/08/2022 20 20 Encounter Details Date Type Department Care Team Description 09/11/2021 Infusion Hematology Oncology at [facility] colon cancer with [facility] metastasis to other site [address] [place] [address] [phone] Social History Tobacco Use Types [...] LAB DATA: Labs drawn today at [facility]. Reviewed and found adequate for treatment. [...] Oncology Michael Romero MD [facility] [address] [place], [place] [address] (Wo romario) 12/04/2021 Infusion Hematology and Oncology 12/18/2021 Office Visit Hematology and Oncology Michael Romero MD [facility] [address] [place], [place] [address]375 (Wo rk) 12/18/2021 Infusion Hematology and Oncology 01/01/2022 Office Visit Hematology and Oncology Michael Romero MD [facility] [address] [place], [place] [address]375 (Wo rk) 01/01/2022 Infusion Hematology and Oncology 01/15/2022 Office Visit Hematology and Oncology Michael Romero MD [facility] ER ONCOLOGY [place], [place] 0375 (Wo rk) 01/15/2022 Infusion Hematology and Oncology 01/29/2022 Office Visit Hematology and Oncology Michael Romero MD [facility] ONCOLOGY [place], [place] 0375 (Wo rk) 01/29/2022 Infusion Hematology and Oncology 02/12/2022 Office Visit Hematology and Oncology Michael Romero MD [facility] ONCOLOGY [place], [place] 0375 (Wo rk) 02/12/2022 Infusion Hematology and Oncology 02/26/2022 Office Visit Hematology and Oncology Michael Romero MD [facility] ONCOLOGY [place], [place] 0375 (Wo rk) 02/26/2022 Infusion Hematology [...] Routine documented in this encounter Care Teams Rf Technician Relationship Specialty Start Date End Date None PCP - General 12/03/19 None documented as of this encounter
--- OUTSIDE RECORDS SUMMARY | 2021-12-04 01:38 | XMS_ITS | Encounter Summary ---
:1940 [place] [address] Care Team Providers Name Role Phone None Primary Care Provider Unavailable Encounter Details Date Type Department Care Team Description 10/01/2021 Ancillary Procedure Radiology Library at Jorge Romero [facility] [place] [address] ONCOLOGY [phone] [place], [place] [address] (Wo rk) Social History Tobacco Use Types Packs/Day Years Used Date Never Smoker Smokeless Tobacco: Never Used Sex Assigned at Date Recorded Not on file documented as of this encounter Plan of Treatment Upcoming Encounters Date Type Specialty Care Team Description 12/04/2021 Office Visit Hematology and Oncology Michael Romero MD [facility] [address] [place], [place] [address] (Wo rk) 12/04/2021 Infusion Hematology and Oncology 12/18/2021 Office Visit Hematology and Oncology Michael Romero MD [facility] ONCOLOGY [place], [place] [address] (Wo rk) 12/18/2021 Infusion Hematology and Oncology 01/01/2022 Office Visit Hematology and Oncology Michael Romero MD [facility] ONCOLOGY [place], [place] 0375 (Wo rk) 01/01/2022 Infusion Hematology and Oncology 01/15/2022 Office Visit Hematology and Oncology Michael Romero MD [facility] ONCOLOGY [place], [place] [address] (Wo rk) 01/15/2022 Infusion Hematology and Oncology 01/29/2022 Office Visit Hematology and Oncology Michael Romero MD [facility] ONCOLOGY [place], [place] 0375 (Wo rk) 01/29/2022 Infusion Hematology and Oncology 02/12/2022 Office Visit Hematology and Oncology Michael Romero MD [facility] ONCOLOGY [place], [place] 0375 (Wo rk) 02/12/2022 Infusion Hematology and Oncology 02/26/2022 Office Visit Hematology and Oncology Michael Romero MD [facility] ONCOLOGY [place], [place] [address] (Wo rk) 02/26/2022 Infusion Hematology [...] / Laterality Volume Narrative ANGELICA HAY - 10/01/2021 12:41 PM EDT This exam is auto-finalizing. It's purpo se is for storage only. Michael Romero MD IMJose FILM LIBRARY ORDERABLES Performing Organization Address City/State/ZIP Code Phon e Number BHARTI [place], [place] documented in this encounter Visit Diagnoses Not on filedocumented in this encounter Care Teams Student Admissions Clerk Relationship Specialty Start Date End Date None PCP - General 12/03/19 None documented as of this encounter
--- OUTSIDE RECORDS SUMMARY | 2021-12-04 01:38 | XMS_ITS | Encounter Summary ---
:1940 Author Organization [facility] [place] [address] Care Team Providers Name Role Phone None Primary Care Provider Unavailable Encounter Details Date Type Department Care Team Description 08/07/2021 Office Visit Hematology/Oncology Mckenna Farris, Prim marycruz colon cancer with metastasis to other site; at [facility] BACK HOE MACHINE OPERATOR Metastasis from colon cancer [address] [facility], [place] MEDICAL ONCOLOG Y [address] [place], [place] [phone] (Wo rk) Social History Tobacco Use Types [...] because of significant intra abdominal adhesions Path ([facility] review) - Omentum, mass, excision: - Metastatic [...] complaints today. Soc Hx: , lives in [place], [place] Tob - Never Etoh - None Worked as [employer] [place] [employer]. Fam Hx: Father - Mother - breast [...] in the pelvis. She [place] [facility] [place] resection on 12/05/2019 [...] the absence of cold, laryngeal dysesthesia, fatigue, angina/[place], hypersensitivity reactions and others.?She was given informationalhandouts [...] MD [facility] [address] [place], [place] [address] (Wo romario) 12/04/2021 Infusion Hematology and Oncology 12/18/2021 Office Visit Hematology and Oncology Michael Romero MD [facility] [address] [place], [place] [address] (Wo rk) 12/18/2021 Infusion Hematology and Oncology 01/01/2022 Office Visit Hematology and Oncology Michael Romero MD [facility] ONCOLOGY [place], [place] 0[address] (Wo rk) 01/01/2022 Infusion Hematology and Oncology 01/15/2022 Office Visit Hematology and Oncology Michael Romero MD [facility] ER ONCOLOGY [place], [place] [address] (Wo rk) 01/15/2022 Infusion Hematology and Oncology 01/29/2022 Office Visit Hematology and Oncology Michael Romero MD [facility] [address] [place], [place] [address]375 (Wo rk) 01/29/2022 Infusion Hematology and Oncology 02/12/2022 Office Visit Hematology and Oncology Michael Romero MD [facility] [address] [place], [place] [address] (Wo rk) 02/12/2022 Infusion Hematology and Oncology 02/26/2022 Office Visit Hematology and Oncology Michael Romero MD [facility] [address] [place], [place] [address] (Wo rk) 02/26/2022 Infusion Hematology and Oncology documented as of this encounter Visit Diagnoses Diagnosis Primary colon cancer with metastasis to other site Metastasis from colon cancer documented in this encounter Care Teams Fluorescent Lamp Replacer Relationship Specialty Start Date End Date None PCP - General 12/03/19 None documented as of this encounter
--- OUTSIDE RECORDS SUMMARY | 2021-12-04 01:38 | XMS_ITS | Encounter Summary ---
:1940 Author Organization [facility] [place] [address] Care Team Providers Name Role Phone None Primary Care Provider Unavailable Encounter Details Date Type Department Care Team Description 05/22/2021 Orders Only Hematology/Oncology at [facility] [address] [place], [place] HEMATOLOGY ONCO [place] [id number] [place] [address] (Wo rk) Social History Tobacco Use Types Packs/Day Years Used Date Never Smoker Smokeless Tobacco: Never Used Sex Assigned at Date Recorded Not on file documented as of this encounter Plan of Treatment Upcoming Encounters Date Type Specialty Care Team Description 12/04/2021 Office Visit Hematology and Oncology Michael Romero MD [facility] [address] [place], [place] [address] (Wo rk) 12/04/2021 Infusion Hematology and Oncology 12/18/2021 Office Visit Hematology and Oncology Michael Romero MD [facility] ONCOLOGY [place], [place] [address] (Wo rk) 12/18/2021 Infusion Hematology and Oncology 01/01/2022 Office Visit Hematology and Oncology Michael Romero MD [facility] [address] [place] [place], [place] [address] (Wo rk) 01/01/2022 Infusion Hematology and Oncology 01/15/2022 Office Visit Hematology and Oncology Michael Romero MD [facility] ER ONCOLOGY [place], [place] 0375 (Wo rk) 01/15/2022 Infusion Hematology and Oncology 01/29/2022 Office Visit Hematology and Oncology Michael Romero MD [facility] ONCOLOGY [place], [place] [address] (Wo rk) 01/29/2022 Infusion Hematology and Oncology 02/12/2022 Office Visit Hematology and Oncology Michael Romero MD [facility] ONCOLOGY [place], [place] [address] (Wo rk) 02/12/2022 Infusion Hematology and Oncology 02/26/2022 Office Visit Hematology and Oncology Michael Romero MD [facility] ONCOLOGY [place], [place] 0375 (Wo rk) 02/26/2022 Infusion Hematology and Oncology documented as of this encounter Visit Diagnoses Not on filedocumented in this encounter Care Teams Operations And Maintenance Technican Relationship Specialty Start Date End Date None PCP - General 12/03/19 None documented as of this encounter
--- OUTSIDE RECORDS SUMMARY | 2021-12-04 01:38 | XMS_ITS | Encounter Summary ---
:1940 Author Organization [facility] [place] [address] Care Team Providers Name Role Phone None Primary Care Provider Unavailable Encounter Details Date Type Department Care Team Description 07/24/2021 Office Visit Hematology/Oncology Aaron Romero MD [facility] [place] [address] [facility]en[facility] [address] [place] [address] [place] [address] [place] [phone] Social History Tobacco Use Types Packs/Day [...] and down. Soc Hx: , lives in [place], [place] Tob - Never Etoh - None Worked as [employer]. Fam Hx: Father - Mother - breast [...] in the pelvis. [place] [facility] [place] on 12/05/2019 - path [...] the absence of cold, laryngeal dysesthesia, fatigue, angina/[place], hypersensitivity reactions and others.?She was given informationalhandouts [...] Oncology Michael Romero MD [facility] [address] [place], [place] [address] (Wo rk) 12/04/2021 Infusion Hematology and Oncology 12/18/2021 Office Visit Hematology and Oncology Michael Romero MD [facility] [address] [place], [place] [address] (Wo rk) 12/18/2021 Infusion Hematology and Oncology 01/01/2022 Office Visit Hematology and Oncology Michael Romero MD [facility] [address] [place], [place] [address] (Wo rk) 01/01/2022 Infusion Hematology and Oncology 01/15/2022 Office Visit Hematology and Oncology Michael Romero MD [facility] [address] [place] [place], [place] [address] (Wo rk) 01/15/2022 Infusion Hematology and Oncology 01/29/2022 Office Visit Hematology and Oncology Michael Romero MD [facility] [address] [place], [place] [address] (Wo rk) 01/29/2022 Infusion Hematology and Oncology 02/12/2022 Office Visit Hematology and Oncology Michael Romero MD [facility] [address] [place], [place] [address] (Wo rk) 02/12/2022 Infusion Hematology and Oncology 02/26/2022 Office Visit Hematology and Oncology Michael Romero MD 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
--- OUTSIDE RECORDS SUMMARY | 2021-12-04 01:38 | XMS_ITS | Encounter Summary ---
:1940 [place] [address] Care Team Providers Name Role Phone None Primary Care Provider Unavailable Encounter Details Date Type Department Care Team Description 05/05/2021 Ancillary Procedure Radiology Library at Jorge Romero [facility] [place] [address] ONCOLOGY [phone] [place], [place] [address] (Wo rk) Social History Tobacco Use Types Packs/Day Years Used Date Never Smoker Smokeless Tobacco: Never Used Sex Assigned at Date Recorded Not on file documented as of this encounter Plan of Treatment Upcoming Encounters Date Type Specialty Care Team Description 12/04/2021 Office Visit Hematology and Oncology Michael Romero MD [facility] [address] [place], [place] [address] (Wo rk) 12/04/2021 Infusion Hematology and Oncology 12/18/2021 Office Visit Hematology and Oncology Michael Romero MD [facility] [address] [place] [place], [place] [address] (Wo rk) 12/18/2021 Infusion Hematology and Oncology 01/01/2022 Office Visit Hematology and Oncology Michael Romero MD [facility] ONCOLOGY [place], [place] [address] (Wo rk) 01/01/2022 Infusion Hematology and Oncology 01/15/2022 Office Visit Hematology and Oncology Michael Romero MD [facility] ONCOLOGY [place], [place] [address] (Wo rk) 01/15/2022 Infusion Hematology and Oncology 01/29/2022 Office Visit Hematology and Oncology Michael Romero MD [facility] ONCOLOGY [place], [place] [address] (Wo rk) 01/29/2022 Infusion Hematology and Oncology 02/12/2022 Office Visit Hematology and Oncology Michael Romero MD [facility] ONCOLOGY [place], [place] [address] (Wo rk) 02/12/2022 Infusion Hematology and Oncology 02/26/2022 Office Visit Hematology and Oncology Michael Romero MD [facility] ONCOLOGY [place], [place] [address] (Wo rk) 02/26/2022 Infusion Hematology [...] / Laterality Volume Narrative ANGELICA HAY - 05/06/2021 3:11 PM EST This exam is auto-finalizing. It's purpo se is for storage only. Michael Romero MD IMJose FILM LIBRARY ORDERABLES Performing Organization Address City/State/ZIP Code Phon e Number BHARTI [place], [place] documented in this encounter Visit Diagnoses Not on filedocumented in this encounter Care Teams Retail Service Specialist Relationship Specialty Start Date End Date None PCP - General 12/03/19 None documented as of this encounter
--- OUTSIDE RECORDS SUMMARY | 2021-12-04 01:38 | XMS_ITS | Encounter Summary ---
:1940 [place] [address] Care Team Providers Name Role Phone None Primary Care Provider Unavailable Encounter Details Date Type Department Care Team Description 07/22/2021 Ancillary Procedure Radiology Library Michael Romero Canceled ([facility] [place] [facility] [place] ERROR / CORRECTION ) [facility] [address] ONCOLOGY [id number] [place] [address] Social History Tobacco Use Types Packs/Day Years Used Date Never Smoker Smokeless Tobacco: Never Used Sex Assigned at Date Recorded Not on file documented as of this encounter Plan of Treatment Upcoming Encounters Date Type Specialty Care Team Description 12/04/2021 Office Visit Hematology and Oncology Michael Romero MD [facility] [address] [place], [place] [address] (Wo rk) 12/04/2021 Infusion Hematology and Oncology 12/18/2021 Office Visit Hematology and Oncology Michael Romero MD [facility] ONCOLOGY [place], [place] [address] (Wo rk) 12/18/2021 Infusion Hematology and Oncology 01/01/2022 Office Visit Hematology and Oncology Michael Romero MD [facility] ONCOLOGY [place], [place] [address] (Wo rk) 01/01/2022 Infusion Hematology and Oncology 01/15/2022 Office Visit Hematology and Oncology Michael Romero MD [facility] ONCOLOGY [place], [place] [address] (Wo rk) 01/15/2022 Infusion Hematology and Oncology 01/29/2022 Office Visit Hematology and Oncology Michael Romero MD [facility] ONCOLOGY [place], [place] [address] (Wo rk) 01/29/2022 Infusion Hematology and Oncology 02/12/2022 Office Visit Hematology and Oncology Michael Romero MD [facility] ONCOLOGY [place], [place] [address] (Wo rk) 02/12/2022 Infusion Hematology and Oncology 02/26/2022 Office Visit Hematology and Oncology Michael Romero MD [facility] [address] [place] [place], [place] [address] (Wo rk) 02/26/2022 Infusion Hematology and Oncology documented as of this encounter Visit Diagnoses Not on filedocumented in this encounter Care Teams Application Security Engineer Relationship Specialty Start Date End Date None PCP - General 12/03/19 None documented as of this encounter
--- OUTSIDE RECORDS SUMMARY | 2021-12-04 01:38 | XMS_ITS | Encounter Summary ---
:1940 [place] [address] Care Team Providers Name Role Phone None Primary Care Provider Unavailable Encounter Details Date Type Department Care Team Description 07/22/2021 Ancillary Procedure Radiology Library at [facility] [place] [address] ONCOLOGY [phone] [place], [place] [address] (Wo rk) Social History Tobacco Use Types Packs/Day Years Used Date Never Smoker Smokeless Tobacco: Never Used Sex Assigned at Date Recorded Not on file documented as of this encounter Plan of Treatment Upcoming Encounters Date Type Specialty Care Team Description 12/04/2021 Office Visit Hematology and Oncology Michael Romero MD [facility] [address] [place] [place], [place] [address] (Wo rk) 12/04/2021 Infusion Hematology and Oncology 12/18/2021 Office Visit Hematology and Oncology Michael Romero MD [facility] ONCOLOGY [place], [place] 0375 (Wo rk) 12/18/2021 Infusion Hematology and Oncology 01/01/2022 Office Visit Hematology and Oncology Michael Romero MD [facility] ONCOLOGY [place], [place] 0375 (Wo rk) 01/01/2022 Infusion Hematology and Oncology 01/15/2022 Office Visit Hematology and Oncology Michael Romero MD [facility] ONCOLOGY [place], [place] 0375 (Wo rk) 01/15/2022 Infusion Hematology and Oncology 01/29/2022 Office Visit Hematology and Oncology Michael Romero MD [facility] ONCOLOGY [place], [place] 0375 (Wo rk) 01/29/2022 Infusion Hematology and Oncology 02/12/2022 Office Visit Hematology and Oncology Michael Romero MD [facility] ONCOLOGY [place], [place] 0375 (Wo rk) 02/12/2022 Infusion Hematology and Oncology 02/26/2022 Office Visit Hematology and Oncology Michael Romero MD [facility] ONCOLOGY [place], [place] 0375 (Wo rk) 02/26/2022 Infusion Hematology [...] / Laterality Volume Narrative ANGELICA HAY - 07/23/2021 12:39 PM EDT This exam is auto-finalizing. It's purpo se is for storage only. Michael Romero MD IM[facility] FILM LIBRARY ORDERABLES Performing Organization Address City/State/ZIP Code Phon e Number BHARTI [place], [place] documented in this encounter Visit Diagnoses Not on filedocumented in this encounter Care Teams Pump And Blower Operator Relationship Specialty Start Date End Date None PCP - General 12/03/19 None documented as of this encounter
--- OUTSIDE RECORDS SUMMARY | 2021-12-04 01:38 | XMS_ITS | Encounter Summary ---
:1940 Author Organization [facility] [place] [address] Care Team Providers Name Role Phone None Primary Care Provider Unavailable Encounter Details Date Type Department Care Team Description 06/26/2021 Office Visit Hematology/Oncology Aaron Romero MD [facility] [place] [address] Stage IV adenocarcinoma at [facility] Mckenna Farris APRN [address] [place] [address] [place] [address] of small bowel [address] [place] [phone] Social History Tobacco Use Types Packs/Day [...] in this encounter Progress Notes Mckenna Farris GREEN HIDE INSPECTOR - 06/26/2021 10:00 AM EDT Subjective Patient [...] the pelvis. ?? She was seen at [facility] and underwent resection on [...] the absence of cold, laryngeal dysesthesia, fatigue, angina/[place], hypersensitivity reactions and others.?She??was given informational handouts [...] questions/concerns or new symptoms. Mckenna Farris MSN, GREEN HIDE INSPECTOR, AOCNP Medical Oncology documented in this encounter Plan of Treatment Upcoming Encounters Date Type Specialty Care Team Description 12/04/2021 Office Visit Hematology and Oncology Michael Romero MD [facility] ONCOLOGY [place], [place] 0375 (Wo rk) 12/04/2021 Infusion Hematology and Oncology 12/18/2021 Office Visit Hematology and Oncology Michael Romero MD [facility] DR [place], [place] [address] (Wo romario) 12/18/2021 Infusion Hematology and Oncology 01/01/2022 Office Visit Hematology and Oncology Michael Romero MD [facility] ER ONCOLOGY [place], [place] 0375 (Wo rk) 01/01/2022 Infusion Hematology and Oncology 01/15/2022 Office Visit Hematology and Oncology Michael Romero MD [facility] [place], [place] [address]375 (Wo rk) 01/15/2022 Infusion Hematology and Oncology 01/29/2022 Office Visit Hematology and Oncology Michael Romero MD [facility] [place], [place] 0375 (Wo rk) 01/29/2022 Infusion Hematology and Oncology 02/12/2022 Office Visit Hematology and Oncology Michael Romero MD [facility] ONCOLOGY [place], [place] 0375 (Wo rk) 02/12/2022 Infusion Hematology and Oncology 02/26/2022 Office Visit Hematology and Oncology Michael Romero MD [facility] [address] [place] [place], [place] 0375 (Wo rk) 02/26/2022 Infusion Hematology and Oncology documented as of this encounter Visit Diagnoses Diagnosis 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
--- OUTSIDE RECORDS SUMMARY | 2021-12-04 01:38 | XMS_ITS | Encounter Summary ---
:1940 Author Organization [place] [address] Care Team Providers Name Role Phone None Primary Care Provider Unavailable Reason for Visit Reason Comments Chemotherapy Treatment/Therapy Plan Authorization (Routine) - Authorized Specialty Diagnoses / Procedures Referred By Contact Refer red To Contact Diagnoses Primary colon cancer with metastasis to other site Michael Romero MD Stj Hem Onc In[facility] GI COLORECTAL CANCER - FOLFOX-6 (14 DAY) [address] [place] [phone] Fax: Referral ID Status Reason Start Date Expiration Date Visits V isits Requested Authorized [id number] Authorized 05/08/2021 05/08/2022 20 20 Encounter Details Date Type Department Care Team Description 10/09/2021 Infusion Hematology Oncology at [facility] colon cancer with [facility] metastasis to other site [address] [place] [phone] Social History Tobacco Use Types [...] infusion chemotherapy via CADD pump provided by [employer]. Fluorouracil 2292 mg over 46 hours, IV [...] Romero MD [facility] ONCOLOGY [place], [place] 0375 (Wo rk) 12/04/2021 Infusion Hematology and Oncology 12/18/2021 Office Visit Hematology and Oncology Michael Romero MD [facility] ONCOLOG[place], [place] 0375 (Wo rk) 12/18/2021 Infusion Hematology and Oncology 01/01/2022 Office Visit Hematology and Oncology Michael Romero MD [facility] ONCOLOG[place], [place] 0375 (Wo rk) 01/01/2022 Infusion Hematology and Oncology 01/15/2022 Office Visit Hematology and Oncology Michael Romero MD [facility] ONCOLOG[place], [place] 0375 (Wo rk) 01/15/2022 Infusion Hematology and Oncology 01/29/2022 Office Visit Hematology and Oncology Michael Romero MD [facility] ER ONCOLOGY [place], [place] 0375 (Wo rk) 01/29/2022 Infusion Hematology and Oncology 02/12/2022 Office Visit Hematology and Oncology Michael Romero MD [facility] ONCOLOG[place], [place] 0375 (Wo rk) 02/12/2022 Infusion Hematology and Oncology 02/26/2022 Office Visit Hematology and Oncology Michael Romero MD [facility] ONCOLOG[place], [place] 0375 (Wo rk) 02/26/2022 Infusion Hematology [...] Pharmacist rounded dose per procedure (Re-ordered by MD/PLAYBACK OPERATOR). Compatible with dextrose-containing solution only. Warning Vesicant/Irritant Medication palonosetron (Aloxi) (0.05 mg/mL) injection Given 11/2021 10:25 AM EDT 0.25 mg 0.25 mg 0.25 mg, Intravenous, ONCE, 1 dose, On Tue10/09/21 at 1030, Administer over 30 seconds. Administer prior to chemotherapy, Routine documented in this encounter Care Teams Grizzlyman Relationship Specialty Start Date End Date None PCP - General 12/03/19 None documented as of this encounter
--- OUTSIDE RECORDS SUMMARY | 2021-12-04 01:38 | XMS_ITS | Encounter Summary ---
:1940 Author Organization [facility] [place] [address] Care Team Providers Name Role Phone None Primary Care Provider Unavailable Reason for Visit Reason Comments Chemotherapy Cycle 8 Day 1 mFOLFOX Treatment/Therapy Plan Authorization (Routine) - Authorized Specialty Diagnoses / Procedures Referred By Contact Refer red To Contact Diagnoses Primary colon cancer with metastasis to other site Michael Romero MD Stj Hem Onc Infusion Procedures [facility] AMB ONC GI COLORECTAL CANCER - FOLFOX-6 (14 DAY) [address] [place] [phone] Fax: Referral ID Status Reason Start Date Expiration Date Visits V isits Requested Authorized [id number] Authorized 05/08/2021 05/08/2022 20 20 Encounter Details Date Type Department Care Team Description 09/25/2021 Infusion Hematology Oncology at [facility] colon cancer with [facility] metastasis to other site [address] [place] [phone] Social History Tobacco Use Types [...] Michael Romero MD [facility] ONCOLOGY [place], [place] 0375 (Wo romario) 12/04/2021 Infusion Hematology and Oncology 12/18/2021 Office Visit Hematology and Oncology Michael Romero MD [facility] ONCOLOGY [place], [place] [address] (Wo romario) 12/18/2021 Infusion Hematology and Oncology 01/01/2022 Office Visit Hematology and Oncology Michael Romero MD [facility] ONCOLOGY [place], [place] 0375 (Susana doss) 01/01/2022 Infusion Hematology and Oncology 01/15/2022 Office Visit Hematology and Oncology Michael Romero MD [facility] ONCOLOGY [place], [place] 0375 (Wo rk) 01/15/2022 Infusion Hematology and Oncology 01/29/2022 Office Visit Hematology and Oncology Michael Romero MD [facility] ONCOLOGY [place], [place] 0375 (Wo rk) 01/29/2022 Infusion Hematology and Oncology 02/12/2022 Office Visit Hematology and Oncology Michael Romero MD [facility] [place], [place] 0375 (Wo rk) 02/12/2022 Infusion Hematology and Oncology 02/26/2022 Office Visit Hematology and Oncology Michael Romero MD [facility] ONCOLOGY [place], [place] 0375 (Wo rk) 02/26/2022 Infusion Hematology [...] Routine documented in this encounter Care Teams Mechanical Press Operator Relationship Specialty Start Date End Date None PCP - General 12/03/19 None documented as of this encounter
--- OUTSIDE RECORDS SUMMARY | 2021-12-04 01:38 | XMS_ITS | Encounter Summary ---
:1940 Author Organization [facility] [place] [address] Care Team Providers Name Role Phone None Primary Care Provider Unavailable Encounter Details Date Type Department Care Team Description 08/17/2021 Orders Only Hematology/Oncology at [facility] [address] [facility] [phone] Social History Tobacco Use Types Packs/Day Years Used Date Never Smoker Smokeless Tobacco: Never Used Sex Assigned at Date Recorded Not on file documented as of this encounter Plan of Treatment Upcoming Encounters Date Type Specialty Care Team Description 12/04/2021 Office Visit Hematology and Oncology Michael Romero MD [facility] ONCOLOGY [place], [place] [address] (Wo rk) 12/04/2021 Infusion Hematology and Oncology 12/18/2021 Office Visit Hematology and Oncology Michael Romero MD [facility] ONCOLOGY [place], [place] 0375 (Wo rk) 12/18/2021 Infusion Hematology and Oncology 01/01/2022 Office Visit Hematology and Oncology Michael Romero MD [facility] ONCOLOGY [place], [place] 0375 (Wo rk) 01/01/2022 Infusion Hematology and Oncology 01/15/2022 Office Visit Hematology and Oncology Michael Romero MD [facility] ONCOLOGY [place], [place] 0375 (Wo rk) 01/15/2022 Infusion Hematology and Oncology 01/29/2022 Office Visit Hematology and Oncology Michael Romero MD [facility] ONCOLOGY [place], [place] 0375 (Wo rk) 01/29/2022 Infusion Hematology and Oncology 02/12/2022 Office Visit Hematology and Oncology Michael Romero MD [facility] ONCOLOGY [place], [place] 0375 (Wo rk) 02/12/2022 Infusion Hematology and Oncology 02/26/2022 Office Visit Hematology and Oncology Michael Romero MD [facility] [address] [place] [place], [place] 0375 (Wo rk) 02/26/2022 Infusion Hematology and Oncology documented as of this encounter Visit Diagnoses Not on filedocumented in this encounter Care Teams Research Asst Relationship Specialty Start Date End Date None PCP - General 12/03/19 None documented as of this encounter
--- OUTSIDE RECORDS SUMMARY | 2021-12-04 01:38 | XMS_ITS | Encounter Summary ---
:1940 Author Organization [facility] [place] [address] Care Team Providers Name Role Phone None Primary Care Provider Unavailable Reason for Referral Diagnostic Test (Routine) - Authorized Specialty Diagnoses / Procedures Referred By Contact Refer red To Contact Radiology Diagnoses Stage IV adenocarcinoma of small bowel Michael Romero MD Procedures CT Chest Abdomen Pelvis w Contrast (Generic) [facility] [address] Referral ID Status Reason Start Expiration Visits Visits Date Date Requested Authorized [id number] Authorized Specialty 04/17/2021 10/15/2022 1 1 Service Requested Reason for Visit Consultation (Routine) - Closed Specialty Diagnoses / Procedures Referred By Contact Refer red To Contact Hematology and Diagnoses Malignant neoplasm of abdomen Malignant neoplasm of abdomen Jamie Jena-Baptiste Gregory H, Oncology Procedures T[employer] MD MANAN Camejo [address] [place] [address] [facility] [place] [phone] [place], [place] Fax: Referral ID Status Reason Start Date Expiration Date Visits Requ ested Visits Authorized [id number] Closed 03/17/2021 03/17/2022 1 1 Encounter Details Date Type Department Care Team Description 04/17/2021 Office Visit Hematology/Oncology Aaron Romero MD [facility] [address] Metastasis from colon cancer; at [facility] Kaylin Nancylaureano Guillory APRN [address] [place] [address] [place] [address] Stage IV adenocarcinoma of small bowel [address] [place] [phone] Social History Tobacco Use Types Packs/Day [...] because of significant intra abdominal adhesions Path ([facility] review) - Omentum, mass, excision: - Metastatic [...] isn't much to do. She works on [employer] and reads also. Once has some pain [...] or feet. Soc Hx: , lives in [place], [place] Tob - Never Etoh - None Worked as [employer]. Fam Hx: Father - Mother - breast [...] in the pelvis. She was seen at [facility] and underwent resection on 12/05/2019 - path [...] the absence of cold, laryngeal dysesthesia, fatigue, angina/[place], hypersensitivity reactions and others.?She was given informationalhandouts [...] be performed on the omental biopsy. Zita Mercer, RN - 04/17/2021 11:00 AM EST MEDICAL [...] information entered. Support Systems: - Romero. [facility] transportation plan: [X ]private vehicle [ ] [...] Romero MD [facility] ONCOLOGY [place], [place] 0375 (Wo rk) 12/04/2021 Infusion Hematology and Oncology 12/18/2021 Office Visit Hematology and Oncology Michael Romero MD [facility] ONCOLOGY [place], [place] 0375 (Wo rk) 12/18/2021 Infusion Hematology and Oncology 01/01/2022 Office Visit Hematology and Oncology Michael Romero MD [facility] ONCOLOGY [place], [place] 0375 (Wo rk) 01/01/2022 Infusion Hematology and Oncology 01/15/2022 Office Visit Hematology and Oncology Michael Romero MD [facility] ONCOLOGY [place], [place] 0375 (Wo rk) 01/15/2022 Infusion Hematology and Oncology 01/29/2022 Office Visit Hematology and Oncology Michael Romero MD [facility] ONCOLOGY [place], [place] 0375 (Wo rk) 01/29/2022 Infusion Hematology and Oncology 02/12/2022 Office Visit Hematology and Oncology Michael Romero MD [facility] ONCOLOGY [place], [place] 0375 (Wo rk) 02/12/2022 Infusion Hematology and Oncology 02/26/2022 Office Visit Hematology and Oncology Michael Romero MD [facility] ONCOLOGY [place], [place] 0375 (Wo rk) 02/26/2022 Infusion Hematology [...] site documented in this encounter Care Teams Billing Coordinator Relationship Specialty Start Date End Date None PCP - General 12/03/19 None documented as of this encounter
--- OUTSIDE RECORDS SUMMARY | 2021-12-04 01:38 | XMS_ITS | Encounter Summary ---
:1940 Author Organization [facility] [place] [address] Care Team Providers Name Role Phone None Primary Care Provider Unavailable Reason for Visit Reason Comments IV Access Port flush Encounter Details Date Type Department Care Team Description 08/21/2021 Infusion Hematology Oncology at [facility] colon cancer with [facility] metastasis to other site [address] [place] [phone] Social History Tobacco Use Types Packs/Day Years Used Date Never Smoker Smokeless Tobacco: Never Used Sex Assigned at Date Recorded Not on file documented as of this encounter Progress Notes Diann Baker RN - 08/21/2021 11:00 AM EDT INFUSION THERAPY ADMINISTRATION NOTES DIAGNOSIS: colorectal REASON FOR VISIT: MEDIPORT FLUSH ONLY due to neutropenia IV ACCESS: Mediport, accessed at [facility] for port draw GAUGE: 19G BLOOD RETURN: [...] Romero MD [facility] ONCOLOGY [place], [place] 0375 (Wo rk) 12/04/2021 Infusion Hematology and Oncology 12/18/2021 Office Visit Hematology and Oncology Michael Romero MD [facility] ER ONCOLOGY [place], [place] 0375 (Wo rk) 12/18/2021 Infusion Hematology and Oncology 01/01/2022 Office Visit Hematology and Oncology Michael Romero MD [facility] ONCOLOGY [place], [place] 0375 (Wo rk) 01/01/2022 Infusion Hematology and Oncology 01/15/2022 Office Visit Hematology and Oncology Michael Romero MD [facility] ONCOLOGY [place], [place] 0375 (Wo rk) 01/15/2022 Infusion Hematology and Oncology 01/29/2022 Office Visit Hematology and Oncology Michael Romero MD [facility] ONCOLOGY [place], [place] 0375 (Wo rk) 01/29/2022 Infusion Hematology and Oncology 02/12/2022 Office Visit Hematology and Oncology Michael Romero MD [facility] ONCOLOGY [place], [place] 0375 (Wo rk) 02/12/2022 Infusion Hematology and Oncology 02/26/2022 Office Visit Hematology and Oncology Michael Romero MD [facility] ONCOLOGY [place], [place] 0375 (Wo rk) 02/26/2022 Infusion Hematology and Oncology documented as of this encounter Visit Diagnoses Diagnosis Primary colon cancer with metastasis to other site documented in this encounter Care Teams Temperature Regulator Relationship Specialty Start Date End Date None PCP - General 12/03/19 None documented as of this encounter
--- OUTSIDE RECORDS SUMMARY | 2021-12-04 01:38 | XMS_ITS | Encounter Summary ---
:1940 Author Organization [place] [address] Care Team Providers Name Role Phone None Primary Care Provider Unavailable Reason for Visit Treatment/Therapy Plan Authorization (Routine) - Authorized Specialty Diagnoses / Procedures Referred By Contact Refer red To Contact Diagnoses Primary colon cancer with metastasis to other site Michael Romero MD Stj Hem Onc Infusion Procedures [facility] AMB ONC GI COLORECTAL CANCER - FOLFOX-6 (14 DAY) [address] [place] [phone] Fax: Referral ID Status Reason Start Date Expiration Date Visits V isits Requested Authorized [id number] Authorized 05/08/2021 05/08/2022 20 20 Encounter Details Date Type Department Care Team Description 06/26/2021 Infusion Hematology Oncology at [facility] colon cancer with [facility] metastasis to other site [address] [place] [phone] Social History Tobacco Use Types [...] Romero MD [facility] ONCOLOGY [place], [place] 0375 (Wo rk) 12/04/2021 Infusion Hematology and Oncology 12/18/2021 Office Visit Hematology and Oncology Michael Romero MD [facility] ONCOLOGY [place], [place] 0375 (Wo rk) 12/18/2021 Infusion Hematology and Oncology 01/01/2022 Office Visit Hematology and Oncology Michael Romero MD [facility] ONCOLOGY [place], [place] 0375 (Wo rk) 01/01/2022 Infusion Hematology and Oncology 01/15/2022 Office Visit Hematology and Oncology Michael Romero MD [facility] ONCOLOGY [place], [place] 0375 (Wo rk) 01/15/2022 Infusion Hematology and Oncology 01/29/2022 Office Visit Hematology and Oncology Michael Romero MD [facility] [address] [place], [place] 0375 (Wo rk) 01/29/2022 Infusion Hematology and Oncology 02/12/2022 Office Visit Hematology and Oncology Michael Romero MD [facility] ONCOLOGY [place], [place] 0375 (Wo rk) 02/12/2022 Infusion Hematology and Oncology 02/26/2022 Office Visit Hematology and Oncology Michael Romero MD [facility] ONCOLOGY [place], [place] 0375 (Wo rk) 02/26/2022 Infusion Hematology [...] Routine documented in this encounter Care Teams Cad Operator Relationship Specialty Start Date End Date None PCP - General 12/03/19 None documented as of this encounter
--- OUTSIDE RECORDS SUMMARY | 2021-12-04 01:38 | XMS_ITS | Encounter Summary ---
:1940 Author Organization [facility] [address] Care Team Providers Name Role Phone None Primary Care Provider Unavailable Reason for Visit Reason Comments Chemotherapy C1D1 Folfox Treatment/Therapy Plan Authorization (Routine) - Authorized Specialty Diagnoses / Procedures Referred By Contact Refer red To Contact Diagnoses Primary colon cancer with metastasis to other site Michael Romero MD Stj Hem Onc Infusion Procedures [facility] ONC GI COLORECTAL CANCER - FOLFOX-6 (14 DAY) [address] [place] [phone] Fax: Referral ID Status Reason Start Date Expiration Date Visits V isits Requested Authorized [id number] Authorized 05/08/2021 05/08/2022 20 20 Encounter Details Date Type Department Care Team Description 05/26/2021 Infusion Hematology Oncology at [facility] colon cancer with [facility] metastasis to other site [address] [place] [phone] Social History Tobacco Use Types [...] complaints today. OBJECTIVE LAB DATA: 05/26/21 at [facility], labs reviewed and found adequate for treatment. [...] clinic hours (8am-5pm Tuesday-Tuesday): pt. can call [phone] with questions or concerns. After clinic hours (5pm-8am Tuesday-Tuesday and weekends) pt can call [phone] and ask for the credit card associate/oncologist tong setter. She was also provided with the patient [...] ounces of non-caffeinated beverages/day), mouth care. Joy Robisongrady verbalized understanding of how to take prescription medications given for home use after chemotherapy. documented in this encounter Plan of Treatment Upcoming Encounters Date Type Specialty Care Team Description 12/04/2021 Office Visit Hematology and Oncology Michael Romero MD [facility] [address] [place], [place] 0[address] (Wo rk) 12/04/2021 Infusion Hematology and Oncology 12/18/2021 Office Visit Hematology and Oncology Michael Romero MD [facility] [address] [place], [place] 0375 (Wo rk) 12/18/2021 Infusion Hematology and Oncology 01/01/2022 Office Visit Hematology and Oncology Michael Romero MD [facility] [address] [place], [place] 0375 (Wo rk) 01/01/2022 Infusion Hematology and Oncology 01/15/2022 Office Visit Hematology and Oncology Michael Romero MD [facility] [address] [place], [place] 0375 (Wo rk) 01/15/2022 Infusion Hematology and Oncology 01/29/2022 Office Visit Hematology and Oncology Michael Romero MD [facility] [address] [place], [place] 0375 (Wo rk) 01/29/2022 Infusion Hematology and Oncology 02/12/2022 Office Visit Hematology and Oncology Michael Romero MD [facility] [address] [place], [place] 0375 (Wo rk) 02/12/2022 Infusion Hematology and Oncology 02/26/2022 Office Visit Hematology and Oncology Michael Romero MD [facility] DR [place]COLOGY [place] [address] ([facility]) 02/26/2022 Infusion Hematology and Oncology documented as [...] 0.25 mg, Intravenous, ONCE, 1 dose, On e 05/26/21 at 1200, Administer over 30 seconds. Administer prior to chemotherapy, Routine documented in this encounter Care Teams Glass Inserter Relationship Specialty Start Date End Date None PCP - General 12/03/19 None documented as of this encounter
--- OUTSIDE RECORDS SUMMARY | 2021-12-04 01:38 | XMS_ITS | Encounter Summary ---
:1940 Author Organization [facility] [place] [address] Care Team Providers Name Role Phone None Primary Care Provider Unavailable Reason for Visit Reason Comments Chemotherapy Cycle 6 folfox Treatment/Therapy Plan Authorization (Routine) - Authorized Specialty Diagnoses / Procedures Referred By Contact Refer red To Contact Diagnoses Primary colon cancer with metastasis to other site Michael Romero MD Stj Hem Onc Infusion Procedures [facility] AMB ONC GI COLORECTAL CANCER - FOLFOX-6 (14 DAY) [address] [place] [phone] Fax: Referral ID Status Reason Start Date Expiration Date Visits V isits Requested Authorized [id number] Authorized 05/08/2021 05/08/2022 20 20 Encounter Details Date Type Department Care Team Description 08/28/2021 Infusion Hematology Oncology at [facility] colon cancer with [facility] metastasis to other site [address] [place] [phone] Social History Tobacco Use Types [...] Oncology Michael Romero MD [facility] [address] [place] 0[address] (Wo rk) 12/04/2021 Infusion Hematology and Oncology 12/18/2021 Office Visit Hematology and Oncology Michael Romero MD [facility] ONCOLOGY [place] 0375 (Wo romario) 12/18/2021 Infusion Hematology and Oncology 01/01/2022 Office Visit Hematology and Oncology Michael Romero MD [facility] ER ONCOLOGY [place], [place] 0375 (Wo rk) 01/01/2022 Infusion Hematology and Oncology 01/15/2022 Office Visit Hematology and Oncology Michael Romero MD [facility] ONCOLOGY [place], [place] 0375 (Wo rk) 01/15/2022 Infusion Hematology and Oncology 01/29/2022 Office Visit Hematology and Oncology Michael Romero MD [facility] ONCOLOGY [place], [place] 0375 (Wo rk) 01/29/2022 Infusion Hematology and Oncology 02/12/2022 Office Visit Hematology and Oncology Michael Romero MD [facility] ONCOLOGY [place], [place] 0375 (Wo rk) 02/12/2022 Infusion Hematology and Oncology 02/26/2022 Office Visit Hematology and Oncology Michael Romero MD [facility] ONCOLOGY [place], [place] 0375 (Wo rk) 02/26/2022 Infusion Hematology [...] Routine documented in this encounter Care Teams Nurse Sane Relationship Specialty Start Date End Date None PCP - General 12/03/19 None documented as of this encounter
--- OUTSIDE RECORDS SUMMARY | 2021-12-04 01:38 | XMS_ITS | Encounter Summary ---
:1940 Author Organization [facility] [place] [address] Care Team Providers Name Role Phone None Primary Care Provider Unavailable Reason for Visit Reason Onset Date Comments Follow-up 06/29/[address] of flu [place] when chemo complete Encounter Details Date Type Department Care Team Description 06/29/2021 Telephone Hematology/Oncology at [facility] RN Follow-up (Incorrect way [facility] when [address] [place] [address] Drive chemo complete) [place] [phone] Social History Tobacco Use Types [...] and Oncology Michael Romero MD [facility] [address] [place], [place] 0375 (Wo rk) 12/04/2021 Infusion Hematology and Oncology 12/18/2021 Office Visit Hematology and Oncology Michael Romero MD [facility] ER ONCOLOGY [place], [place] 0375 (Wo rk) 12/18/2021 Infusion Hematology and Oncology 01/01/2022 Office Visit Hematology and Oncology Michael Romero MD [facility] ONCOLOGY [place], [place] 0375 (Wo rk) 01/01/2022 Infusion Hematology and Oncology 01/15/2022 Office Visit Hematology and Oncology Michael Romero MD [facility] ONCOLOGY [place], [place] 0375 (Wo rk) 01/15/2022 Infusion Hematology and Oncology 01/29/2022 Office Visit Hematology and Oncology Michael Romero MD [facility] ONCOLOGY [place], [place] 0375 (Wo rk) 01/29/2022 Infusion Hematology and Oncology 02/12/2022 Office Visit Hematology and Oncology Michael Romero MD [facility] ONCOLOGY [place], [place] 0375 (Wo rk) 02/12/2022 Infusion Hematology and Oncology 02/26/2022 Office Visit Hematology and Oncology Michael Romero MD [facility] ER ONCOLOGY [place], [place] 0375 (Wo rk) 02/26/2022 Infusion Hematology and Oncology documented as of this encounter Visit Diagnoses Not on filedocumented in this encounter Care Teams Produce Inspector Relationship Specialty Start Date End Date None PCP - General 12/03/19 None documented as of this encounter
--- OUTSIDE RECORDS SUMMARY | 2021-12-04 01:38 | XMS_ITS | Encounter Summary ---
:1940 Author Organization [place] [address] Care Team Providers Name Role Phone None Primary Care Provider Unavailable Reason for Visit Reason Comments IV Access Port flush only Encounter Details Date Type Department Care Team Description 07/10/2021 Infusion Hematology Oncology at [facility] colon cancer with [facility] metastasis to other site [address] [place] [address] [phone] Social History Tobacco Use Types Packs/Day Years Used Date Never Smoker Smokeless Tobacco: Never Used Sex Assigned at Date Recorded Not on file documented as of this encounter Progress Notes Lisa Ahsby RN - 07/10/2021 10:30 AM EDT INFUSION THERAPY ADMINISTRATION NOTES DIAGNOSIS: colon cancer REASON FOR VISIT: MEDIPORT FLUSH ONLY-- chemotherapy held today due to low ANC IV ACCESS: Mediport accessed by [facility] BLOOD RETURN: yes ANY S/S OF INFECTION/EXTRAVASATIONS: no signs of IV complications observed IV FLUSHED WITH: 20cc NS and 500 units Heparin IV DISCONTINUED: yes ASSESSMENT: Patient tolerated treatment well. PLAN: Return to clinic per routine. documented in this encounter Plan of Treatment Upcoming Encounters Date Type Specialty Care Team Description 12/04/2021 Office Visit Hematology and Oncology Michael Romero MD [facility] ONCOLOGY [place], [place] 0375 (Wo rk) 12/04/2021 Infusion Hematology and Oncology 12/18/2021 Office Visit Hematology and Oncology Michael Romero MD [facility] ER ONCOLOGY [place], [place] 0375 (Wo rk) 12/18/2021 Infusion Hematology and Oncology 01/01/2022 Office Visit Hematology and Oncology Michael Romero MD [facility] [address] [place], [place] 0375 (Wo rk) 01/01/2022 Infusion Hematology and Oncology 01/15/2022 Office Visit Hematology and Oncology Michael Romero MD [facility] ONCOLOGY [place], [place] 0375 (Wo rk) 01/15/2022 Infusion Hematology and Oncology 01/29/2022 Office Visit Hematology and Oncology Michael Romero MD [facility] [address] [place], [place] 0375 (Wo rk) 01/29/2022 Infusion Hematology and Oncology 02/12/2022 Office Visit Hematology and Oncology Michael Romero MD [facility] [address] [place], [place] 0375 (Wo rk) 02/12/2022 Infusion Hematology and Oncology 02/26/2022 Office Visit Hematology and Oncology Michael Romero MD [facility] [address] [place], [place] 0375 (Wo rk) 02/26/2022 Infusion Hematology and Oncology documented as of this encounter Visit Diagnoses Diagnosis Primary colon cancer with metastasis to other site documented in this encounter Care Teams Upper Marker Relationship Specialty Start Date End Date None PCP - General 12/03/19 None documented as of this encounter
--- OUTSIDE RECORDS SUMMARY | 2021-12-04 01:38 | XMS_ITS | Encounter Summary ---
:1940 Author Organization [facility] [place] [address] Care Team Providers Name Role Phone None Primary Care Provider Unavailable Encounter Details Date Type Department Care Team Description 10/09/2021 Office Visit Hematology/Oncology Michael Romero Adeno carcinoma of small at [facility] MD [place] intestine, stage [address] [facility] [phone] ONCOLOGY [phone] [place], [place] [address] Social History Tobacco Use Types [...] because of significant intra abdominal adhesions Path ([facility] review) - Omentum, mass, excision: - Metastatic [...] is stable. Soc Hx: , lives in [place], [place] Tob - Never Etoh - None Worked as [employer]. Fam Hx: Father - Mother - breast [...] in the pelvis. She was seen at [facility] and underwent resection on 12/05/2019 - path [...] Oncology Michael Romero MD [facility] [address] [place], [place] 0[address] (Wo rk) 12/04/2021 Infusion Hematology and Oncology 12/18/2021 Office Visit Hematology and Oncology Michael Romero MD [facility] ONCOLOGY [place], [place] 0375 (Wo rk) 12/18/2021 Infusion Hematology and Oncology 01/01/2022 Office Visit Hematology and Oncology Michael Romero MD [facility] [address] [place], [place] 0375 (Wo rk) 01/01/2022 Infusion Hematology and Oncology 01/15/2022 Office Visit Hematology and Oncology Michael Romero MD [facility] [address] [place], [place] 0375 (Wo rk) 01/15/2022 Infusion Hematology and Oncology 01/29/2022 Office Visit Hematology and Oncology Michael Romero MD [facility] [address] [place], [place] 0375 (Wo rk) 01/29/2022 Infusion Hematology and Oncology 02/12/2022 Office Visit Hematology and Oncology Michael Romero MD [facility] [address] [place], [place] 0375 (Wo rk) 02/12/2022 Infusion Hematology and Oncology 02/26/2022 Office Visit Hematology and Oncology Michael Romero MD [facility] ER [address] [place], [place] 0375 (Wo rk) 02/26/2022 Infusion Hematology and Oncology documented as of this encounter Visit Diagnoses Diagnosis Adenocarcinoma of small intestine, stage 4 Malignant neoplasm of small intestine, u nspecified site documented in this encounter Care Teams Runner Out Relationship Specialty Start Date End Date None PCP - General 12/03/19 None documented as of this encounter
--- OUTSIDE RECORDS SUMMARY | 2021-12-04 01:38 | XMS_ITS | Encounter Summary ---
:1940 Author Organization [facility] [place] [address] Care Team Providers Name Role Phone None Primary Care Provider Unavailable Encounter Details Date Type Department Care Team Description 09/11/2021 Office Visit Hematology/Oncology Viktoriya Álvarez colon cancer at [facility] B, SITE PHYSICIAN with metastasis to [address] [place] [address] [place] [address] HEMATOLOGY/ONCOLOGY [phone] [place]PT[place], [place] 0[address] (Wo rk) Social History Tobacco [...] in this encounter Progress Notes Viktoriya Álvarez, SITE PHYSICIAN - 09/11/2021 10:30 AM EDT Subjective Patient [...] because of significant intra abdominal adhesions Path ([facility] review) - Omentum, [...] the pelvis. ?? She was seen at [facility] and underwent resection on [...] in the absence of cold, laryngealdysesthesia, fatigue, angina/[place], hypersensitivity reactions and others.?She??was given informational handouts [...] AGACNP-BC, AOCNP, ACHPN Division of Hematology Oncology-Gastrointestinal Double Cut Off Saw OperatorEdi Analystshock absorber installer [facility] documented in this encounter Plan of Treatment Upcoming Encounters Date Type Specialty Care Team Description 12/04/2021 Office Visit Hematology and Oncology Michael Romero MD [facility] ER ONCOLOGY [place], [place] 0375 (Wo rk) 12/04/2021 Infusion Hematology and Oncology 12/18/2021 Office Visit Hematology and Oncology Michael Romero MD [facility] ONCOLOGY [place], [place] 0375 (Wo rk) 12/18/2021 Infusion Hematology and Oncology 01/01/2022 Office Visit Hematology and Oncology Michael Romero MD [facility] [address] [place], [place] 0375 (Wo rk) 01/01/2022 Infusion Hematology and Oncology 01/15/2022 Office Visit Hematology and Oncology Michael Romero MD [facility] [address] [place], [place] 0375 (Wo rk) 01/15/2022 Infusion Hematology and Oncology 01/29/2022 Office Visit Hematology and Oncology Michael Romero MD [facility] [address] [place], [place] 0375 (Wo rk) 01/29/2022 Infusion Hematology and Oncology 02/12/2022 Office Visit Hematology and Oncology Michael Romero MD [facility] ER ONCOLOGY [place], [place] 0375 (Wo rk) 02/12/2022 Infusion Hematology and Oncology 02/26/2022 Office Visit Hematology and Oncology Michael Romero MD [facility] [address] [place], [place] 0375 (Wo rk) 02/26/2022 Infusion Hematology and Oncology documented as of this encounter Visit Diagnoses Diagnosis Primary colon cancer with metastasis to other site documented in this encounter Care Teams Gymnastics Coach Relationship Specialty Start Date End Date None PCP - General 12/03/19 None documented as of this encounter
--- OUTSIDE RECORDS SUMMARY | 2021-12-04 01:38 | XMS_ITS | Encounter Summary ---
:1940 Author Organization [facility] [place] [address] Care Team Providers Name Role Phone None Primary Care Provider Unavailable Encounter Details Date Type Department Care Team Description 06/25/2021 [facility] [address] [place] [address] Drive [place], [place] [phone] Social History Tobacco Use Types Packs/Day Years Used Date Never Smoker Smokeless Tobacco: Never Used Sex Assigned at Date Recorded Not on file documented as of this encounter Miscellaneous Notes Telephone Encounter - Rae Vallecillo RN - 06/25/2021 8:25 AM EDT ----- Message from Kamilah Dunn sent at 06/24/2021 12:21 PM EDT ----- Joy called in asking if it was ok to get her booster for covid, her is getting his and shewanted to make sure that approved. [phone] best call back number RN Follow-up Discussed with Dr. Romero - Ok for Joy to get her COVID booster. Dr. Romero recommends that she get it on her week off of chemotherapy. Joy is due for C3D1 FOLFOX tomorrow. RN phone call to Joy. Left message on identifying VM letting her know that she can get COVID Booster and to get on week off of chemotherapy, per Dr. Romero. Advised that she could call back or discuss with Dr. Romero tomorrow at her appt, if needed. Call back number provided. documented in this encounter Plan of Treatment Upcoming Encounters Date Type Specialty Care Team Description 12/04/2021 Office Visit Hematology and Oncology Michael Romero MD [facility] ER ONCOLOGY [place], [place] [address] (Wo rk) 12/04/2021 Infusion Hematology and Oncology 12/18/2021 Office Visit Hematology and Oncology Michael Romero MD [facility] ER ONCOLOGY [place], [place] 0375 (Wo rk) 12/18/2021 Infusion Hematology and Oncology 01/01/2022 Office Visit Hematology and Oncology Michael Romero MD [facility] [address] [place], [place] 0375 (Wo rk) 01/01/2022 Infusion Hematology and Oncology 01/15/2022 Office Visit Hematology and Oncology Michael Romero MD [facility] ONCOLOGY [place], [place] 0375 (Wo rk) 01/15/2022 Infusion Hematology and Oncology 01/29/2022 Office Visit Hematology and Oncology Michael Romero MD [facility] [address] [place], [place] 0375 (Wo rk) 01/29/2022 Infusion Hematology and Oncology 02/12/2022 Office Visit Hematology and Oncology Michael Romero MD [facility] ONCOLOGY [place], [place] 0375 (Wo rk) 02/12/2022 Infusion Hematology and Oncology 02/26/2022 Office Visit Hematology and Oncology Michael Romero MD [facility] ER [address] [place], [place] 0375 (Wo rk) 02/26/2022 Infusion Hematology and Oncology documented as of this encounter Visit Diagnoses Not on filedocumented in this encounter Care Teams Petroleum Sampler Relationship Specialty Start Date End Date None PCP - General 12/03/19 None documented as of this encounter
--- OUTSIDE RECORDS SUMMARY | 2021-12-04 01:38 | XMS_ITS | Encounter Summary ---
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 ?? She was seen at [facility] [place] and underwent resection on 12/05/2019 - path [...] laryngeal dysesthesia, fatigue, angina/[place], hypersensitivity reactions and others.?She??was given informational handouts [...] metastatic abdominal nodules. Joy returns to the [facility] in [facility] today accompanied by her Romero for [...] done about an hour before treatment at [facility]. She had labs 05/20/21 which [...] metastatic abdominal nodules. Joy returns to the [facility] oncology clinic in [facility] today accompanied by her Romero for review of labs andthe new chemotherapy treatment plan. She had previously met with Dr. Romero to discuss chemo therapyoptions. (No chemotherapy teaching sessions were scheduled.) CBC and CMP were reviewed with Joy and Romero today. They verbalized an understanding of the chemotherapy treatment plan. Prochlorperazine Prescription sent to [facility]. C1D1 Folfox 05/26/21. Pump disconnect teaching planned for C1. documented in this encounter Plan of Treatment Upcoming Encounters Date Type Specialty Care Team Description 12/04/2021 Office Visit Hematology and Oncology Michael Romero MD [facility] [address] [place], [place] [address] (Wo rk) 12/04/2021 Infusion Hematology and Oncology 12/18/2021 Office Visit Hematology and Oncology Michael Romero MD [facility] [address] [place], [place] [address] (Wo rk) 12/18/2021 Infusion Hematology and Oncology 01/01/2022 Office Visit Hematology and Oncology Michael Romero MD [facility] [address] [place], [place] 0[address] (Wo rk) 01/01/2022 Infusion Hematology and Oncology 01/15/2022 Office Visit Hematology and Oncology Michael Romero MD [facility] [address] [place], [place] 0375 (Wo rk) 01/15/2022 Infusion Hematology and Oncology 01/29/2022 Office Visit Hematology and Oncology Michael Romero MD [facility] [address] [place], [place] 0375 (Wo rk) 01/29/2022 Infusion Hematology and Oncology 02/12/2022 Office Visit Hematology and Oncology Michael Romero MD [facility] ONCOLOGY [place], [place] 0375 (Wo rk) 02/12/2022 Infusion Hematology and Oncology 02/26/2022 Office Visit Hematology and Oncology Michael Romero MD [facility] ONCOLOGY [place], [place] 0375 (Wo rk) 02/26/2022 Infusion Hematology and Oncology documented as of this encounter Visit Diagnoses Diagnosis 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
--- OUTSIDE RECORDS SUMMARY | 2021-12-04 01:38 | XMS_ITS | Encounter Summary ---
:1940 Author Organization [facility] [place] [address] Care Team Providers Name Role Phone None Primary Care Provider Unavailable Reason for Referral Diagnostic Test (Routine) - Authorized Specialty Diagnoses / Procedures Referred By Contact Refer red To Contact Radiology Diagnoses Adenocarcinoma of small intestine, stage 4 Michael Romero MD Procedures CT Chest Abdomen Pelvis w Contrast (Generic) [facility] [place] [address] Referral ID Status Reason Start Expiration Visits Visits Date Date Requested Authorized [id number] Authorized Specialty 09/25/2021 03/27/2023 1 1 Service Requested Encounter Details Date Type Department Care Team Description 09/25/2021 Office Visit Hematology/Oncology Michael Romero Adeno carcinoma of small at [facility] MD [place] intestine, stage [address] [place] [phone] ONCOLOGY [phone] [place], [place] [address] Social History Tobacco Use Types [...] by herself in clinic today. Her Romero drove her here but had a low [...] the same. Soc Hx: , lives in [place], [place] Tob - Never Etoh - None Worked as [employer] and [employer]. Fam Hx: Father - Mother - breast [...] in the pelvis. She [place] [facility] and underwent resection on 12/05/2019 - path [...] the absence of cold, laryngeal dysesthesia, fatigue, angina/[place], hypersensitivity reactions and others.?She was given informationalhandouts [...] Hematology and Oncology Michael Romero MD [facility] [address] [place], [place] [address] (Wo rk) 12/04/2021 Infusion Hematology and Oncology 12/18/2021 Office Visit Hematology and Oncology Michael Romero MD [facility] [address] [place], [place] [address] (Wo rk) 12/18/2021 Infusion Hematology and Oncology 01/01/2022 Office Visit Hematology and Oncology Michael Romero MD [facility] ER ONCOLOGY [place], [place] [address] (Wo rk) 01/01/2022 Infusion Hematology and Oncology 01/15/2022 Office Visit Hematology and Oncology Michael Romero MD [facility] ER [place], [place] [address] (Wo rk) 01/15/2022 Infusion Hematology and Oncology 01/29/2022 Office Visit Hematology and Oncology Michael Romero MD [facility] ONCOLOGY [place], [place] [address] (Wo rk) 01/29/2022 Infusion Hematology and Oncology 02/12/2022 Office Visit Hematology and Oncology Michael Romero MD [facility] ONCOLOGY [place], [place] [address] (Wo rk) 02/12/2022 Infusion Hematology and Oncology 02/26/2022 Office Visit Hematology and Oncology Michael Romero MD [facility] ONCOLOGY [place], [place] [address] (Wo rk) 02/26/2022 Infusion Hematology [...] site documented in this encounter Care Teams Chemical Dependency Attendant Relationship Specialty Start Date End Date None PCP - General 12/03/19 None documented as of this encounter
--- OUTSIDE RECORDS SUMMARY | 2021-12-04 01:38 | XMS_ITS | Encounter Summary ---
:1940 Author Organization [facility] [place] [address] Care Team Providers Name Role Phone None Primary Care Provider Unavailable Encounter Details Date Type Department Care Team Description 05/26/2021 Notes Only Hematology/Oncology at Claudia Gomes, GRAIN FARMWORKER [facility] OFFICE OF CARE [address] [place] [address] [phone] Social History Tobacco Use Types Packs/Day Years Used Date Never Smoker Smokeless Tobacco: Never Used Sex Assigned at Date Recorded Not on file documented as of this encounter Progress Notes Claudia Gomes MSW - 05/26/2021 11:22 AM EST Reason for Referral: Brief assessment of social and emotional needs. Met with pt during her first infusion to introduce myself and role of social welfare clerk to assess/address barriers to getting to and [...] With pt's permission will apply to the [place] [facility] for gas cards. 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 She has Medicare A&B. She indicated she has applied for financial assistance through [facility]. Advance Directives: Pt has not completed her [...] resources Transportation resources Plan: Informed pt of GRAIN FARMWORKER availability and contact information. Will follow to assess/address psychosocial needs. KENA Bryan, ANALYST GEOCHEMICAL PROSPECTING, OSW-C Billing Checker [facility] Add: [place] [facility] janette be mailing pt a few gas cards. Pt was informed and is appreciative of this help. documented in this encounter Plan of Treatment Upcoming Encounters Date Type Specialty Care Team Description 12/04/2021 Office Visit Hematology and Oncology Michael Romero MD [facility] ONCOLOGY [place], [place] [address] (Wo rk) 12/04/2021 Infusion Hematology and Oncology 12/18/2021 Office Visit Hematology and Oncology Michael Romero MD [facility] ONCOLOGY [place], [place] [address] (Wo rk) 12/18/2021 Infusion Hematology and Oncology 01/01/2022 Office Visit Hematology and Oncology Michael Romero MD [facility] ONCOLOGY [place], [place] [address] (Wo rk) 01/01/2022 Infusion Hematology and Oncology 01/15/2022 Office Visit Hematology and Oncology Michael Romero MD [facility] ONCOLOGY [place], [place] 0375 (Wo rk) 01/15/2022 Infusion Hematology and Oncology 01/29/2022 Office Visit Hematology and Oncology Michael Romero MD [facility] ONCOLOGY [place], [place] [address] (Wo rk) 01/29/2022 Infusion Hematology and Oncology 02/12/2022 Office Visit Hematology and Oncology Michael Romero MD [facility] ONCOLOGY [place], [place] [address] (Wo rk) 02/12/2022 Infusion Hematology and Oncology 02/26/2022 Office Visit Hematology and Oncology Michael Romero MD [facility] ONCOLOGY [place], [place] [address]375 (Wo rk) 02/26/2022 Infusion Hematology and Oncology documented as of this encounter Visit Diagnoses Not on filedocumented in this encounter Care Teams Animal Caretaker Relationship Specialty Start Date End Date None PCP - General 12/03/19 None documented as of this encounter
--- OUTSIDE RECORDS SUMMARY | 2021-12-04 01:38 | XMS_ITS | Encounter Summary ---
:1940 Author Organization [facility] Address [place] [id number] Care Team Providers Name Role Phone None Primary Care Provider Unavailable Reason for Visit Reason Comments IV Access Port flush Encounter Details Date Type Department Care Team Description 06/29/2021 Infusion Hematology Oncology at [facility] colon cancer with [facility] metastasis to other site [address] [place] [address] [phone] Social History Tobacco Use Types [...] well. Reminded to call the clinic or [facility] with any questions or concerns. PLAN: Return to clinic per routine. documented in this encounter Plan of Treatment Upcoming Encounters Date Type Specialty Care Team Description 12/04/2021 Office Visit Hematology and Oncology Michael Romero MD [facility] ER ONCOLOGY [place], [place] [address] (Wo rk) 12/04/2021 Infusion Hematology and Oncology 12/18/2021 Office Visit Hematology and Oncology Michael Romero MD [facility] ER [place], [place] 0[address] (Wo rk) 12/18/2021 Infusion Hematology and Oncology 01/01/2022 Office Visit Hematology and Oncology Michael Romero MD [facility] DR [place], [place] [address]375 (Wo rk) 01/01/2022 Infusion Hematology and Oncology 01/15/2022 Office Visit Hematology and Oncology Michael Romero MD [facility] DR [place], [place] [address] (Wo rk) 01/15/2022 Infusion Hematology and Oncology 01/29/2022 Office Visit Hematology and Oncology Michael Romero MD [facility] [address] [place] [place], [place] [address] (Wo rk) 01/29/2022 Infusion Hematology and Oncology 02/12/2022 Office Visit Hematology and Oncology Michael Romero MD [facility] ONCOLOGY [place], [place] [address] (Wo rk) 02/12/2022 Infusion Hematology and Oncology 02/26/2022 Office Visit Hematology and Oncology Michael Romero MD [facility] ER [address] [place], [place] [address] (Wo rk) 02/26/2022 Infusion Hematology and Oncology documented as of this encounter Visit Diagnoses Diagnosis Primary colon cancer with metastasis to other site documented in this encounter Care Teams Habitat Biologist Relationship Specialty Start Date End Date None PCP - General 12/03/19 None documented as of this encounter
--- OUTSIDE RECORDS SUMMARY | 2021-12-04 01:38 | XMS_ITS | Encounter Summary ---
:1940 Author Organization [facility] [place] [address] Care Team Providers Name Role Phone None Primary Care Provider Unavailable Reason for Visit Reason Comments Chemotherapy C4D1 Folfox Treatment/Therapy Plan Authorization (Routine) - Authorized Specialty Diagnoses / Procedures Referred By Contact Refer red To Contact Diagnoses Primary colon cancer with metastasis to other site Michael Romero MD [facility] - FOLFOX-6 (14 DAY) [address] [place] [phone] Fax: Referral ID Status Reason Start Date Expiration Date Visits V isits Requested Authorized [id number] Authorized 05/08/2021 05/08/2022 20 20 Encounter Details Date Type Department Care Team Description 07/24/2021 Infusion Hematology Oncology at [facility] colon cancer with [facility] metastasis to other site [address] [place] [phone] Social History Tobacco Use Types [...] infusion chemotherapy via CADD pump provided by [employer]. Fluorouracil 3438 mg over 46 hours, IV via CADD pump. Amount infused verified by double RN check after 15 minutes and appropriate amount had infused. REACTIONS (DESCRIPTION, TIME, INTERVENTION AND EFFECTIVENESS) none ASSESSMENT Joy was awake, alert and tolerated treatment well. PLAN Home disconnect on Wednesday 07/26 at [facility], home disconnect kit provided. Return to clinic per plan. documented in this encounter Plan of Treatment Upcoming Encounters Date Type Specialty Care Team Description 12/04/2021 Office Visit Hematology and Oncology Michael Romero MD [facility] ON[place]OG[place], [place] [address] (Wo rk) 12/04/2021 Infusion Hematology and Oncology 12/18/2021 Office Visit Hematology and Oncology Michael Romero MD [facility] [address] [place], [place] [address] (Wo rk) 12/18/2021 Infusion Hematology and Oncology 01/01/2022 Office Visit Hematology and Oncology Michael Romero MD [facility] [place], [place] [address] (Wo rk) 01/01/2022 Infusion Hematology and Oncology 01/15/2022 Office Visit Hematology and Oncology Michael Romero MD [facility] ONCOLOG[place], [place] [address] (Wo rk) 01/15/2022 Infusion Hematology and Oncology 01/29/2022 Office Visit Hematology and Oncology Michael Romero MD [facility] ER ONCOLOGY [place], [place] [address] (Wo rk) 01/29/2022 Infusion Hematology and Oncology 02/12/2022 Office Visit Hematology and Oncology Michael Romero MD [facility] ONCOLOGY [place], [place] [address] (Wo rk) 02/12/2022 Infusion Hematology and Oncology 02/26/2022 Office Visit Hematology and Oncology Michael Romero MD [facility] ONCOLOGY [place], [place] [address] (Wo rk) 02/26/2022 Infusion Hematology [...] Routine documented in this encounter Care Teams Delivery Rn Relationship Specialty Start Date End Date None PCP - General 12/03/19 None documented as of this encounter
--- OUTSIDE RECORDS SUMMARY | 2021-12-04 01:38 | XMS_ITS | Encounter Summary ---
:1940 Author Organization [place] [address] Care Team Providers Name Role Phone None Primary Care Provider Unavailable Encounter Details Date Type Department Care Team Description 08/21/2021 Office Visit Hematology/Oncology Aaron Romero MD [facility] [place] [address] Adenocarcinoma of small at [facility] Mckenna Farris APRN [address] [place] [address] [place] [address] intestine, stage [address] [place] [phone] Social History Tobacco Use Types Packs/Day [...] in this encounter Progress Notes Mckenna Farris, AQUATIC LIFE LABORER - 08/21/2021 10:30 AM EDT Subjective Patient [...] because of significant intra abdominal adhesions Path ([facility] review) - Omentum, mass, excision: - Metastatic [...] eyes today. Soc Hx: , lives in [place], [place] Tob - Never Etoh - None Worked as [employer]. Fam Hx: Father - Mother - breast [...] the pelvis. She was seen at [facility] and underwent resection on [...] the absence of cold, laryngeal dysesthesia, fatigue, angina/[place], hypersensitivity reactions and others.?She was given informationalhandouts [...] [facility] ER ONCOLOGY [place], [place] 0[address] (Wo rk) 12/04/2021 Infusion Hematology and Oncology 12/18/2021 Office Visit Hematology and Oncology Michael Romero MD [facility] [place], [place] [address] (Wo rk) 12/18/2021 Infusion Hematology and Oncology 01/01/2022 Office Visit Hematology and Oncology Michael Romero MD [facility] [place], [place] [address] (Wo rk) 01/01/2022 Infusion Hematology and Oncology 01/15/2022 Office Visit Hematology and Oncology Michael Romero MD [facility] [place], [place] [address] (Wo rk) 01/15/2022 Infusion Hematology and Oncology 01/29/2022 Office Visit Hematology and Oncology Michael Romero MD [facility] [place], [place] [address] (Wo rk) 01/29/2022 Infusion Hematology and Oncology 02/12/2022 Office Visit Hematology and Oncology Michael Romero MD [facility] ONCOLOGY [place], [place] [address] (Wo rk) 02/12/2022 Infusion Hematology and Oncology 02/26/2022 Office Visit Hematology and Oncology Michael Romero MD [facility] ONCOLOGY [place], [place] [address] (Wo rk) 02/26/2022 Infusion Hematology and Oncology documented as of this encounter Visit Diagnoses Diagnosis Adenocarcinoma of small intestine, stage 4 Malignant neoplasm of small intestine, u nspecified site documented in this encounter Care Teams Coding Technician Relationship Specialty Start Date End Date None PCP - General 12/03/19 None documented as of this encounter
--- OUTSIDE RECORDS SUMMARY | 2021-12-04 01:38 | XMS_ITS | Encounter Summary ---
:1940 Author Organization [facility] [place] [address] Care Team Providers Name Role Phone None Primary Care Provider Unavailable Encounter Details Date Type Department Care Team Description 06/12/2021 Office Visit Hematology/Oncology Mckenna Farris, Prim marycruz colon cancer at [facility] AIRPLANE RENTAL CLERK with metastasis to [facility] [address] [place] [address] DR other site [place], [place] MEDICAL [place]OG [place] [phone] [place], [place] [phone] (Wo rk) Social History Tobacco Use Types [...] in this encounter Progress Notes Mckenna Farris, AIRPLANE RENTAL CLERK - 06/12/2021 9:30 AM EST Subjective Patient [...] the pelvis. ?? She was seen [place] [facility] and underwent resection on 12/05/2019 - path [...] the absence of cold, laryngeal dysesthesia, fatigue, angina/[place], hypersensitivity reactions and others.?She??was given informational handouts [...] questions/concerns or new symptoms. Mckenna Farris MSN, AIRPLANE RENTAL CLERK, AOCNP Medical Oncology documented in this encounter Plan of Treatment Upcoming Encounters Date Type Specialty Care Team Description 12/04/2021 Office Visit Hematology and Oncology Michael Romero MD [facility] [address] [place], [place] [address] (Wo rk) 12/04/2021 Infusion Hematology and Oncology 12/18/2021 Office Visit Hematology and Oncology Michael Romero MD [facility] ONCOLOGY [place], [place] [address] (Wo rk) 12/18/2021 Infusion Hematology and Oncology 01/01/2022 Office Visit Hematology and Oncology Michael Romero MD [facility] ONCOLOGY [place], [place] [address] (Wo rk) 01/01/2022 Infusion Hematology and Oncology 01/15/2022 Office Visit Hematology and Oncology Michael Romero MD [facility] [address] [place], [place] [address] (Wo rk) 01/15/2022 Infusion Hematology and Oncology 01/29/2022 Office Visit Hematology and Oncology Michael Romero MD [facility] [address] [place], [place] [address] (Wo rk) 01/29/2022 Infusion Hematology and Oncology 02/12/2022 Office Visit Hematology and Oncology Michael Romero MD [facility] ONCOLOGY [place], [place] [address] (Wo rk) 02/12/2022 Infusion Hematology and Oncology 02/26/2022 Office Visit Hematology and Oncology Michael Romero MD [facility] ONCOLOGY [place], [place] [address] (Wo rk) 02/26/2022 Infusion Hematology [...] site documented in this encounter Care Teams Core Java Engineer Relationship Specialty Start Date End Date None PCP - General 12/03/19 None documented as of this encounter
--- OUTSIDE RECORDS SUMMARY | 2021-12-04 01:39 | XMS_ITS | Encounter Summary ---
:1940 Author Organization [facility] [place] [address] Care Team Providers Name Role Phone None Primary Care Provider Unavailable Encounter Details Date Type Department Care Team Description 04/01/2021 Hospital Encounter Laboratory [facility] [place] [place] [phone] Social History Tobacco Use Types Packs/Day Years Used Date Never Smoker Smokeless Tobacco: Never Used Sex Assigned at Date Recorded Not on file documented as of this encounter Medications at Time of Discharge Medication Sig Dispensed Refills Start Date End Date ferrous sulfate 325 mg Take 325 mg by mouth. 0 (65 mg iron) Tablet levothyroxine Take 100 mcg by 0 (Synthroid) [...] TIMES A 0 06/16/19 20 04/17/2021 DAY Boost High Protein 0.06 as needed. 0 11/13/2019 0 11/20/2021 gram- 1 kcal/mL Liquid neomycin (Mycifradin) 0 11/30/2019 500 mg Tablet Gavi[employer]te-G DRINK DIRECTED BY 0 11/20/201904/04 236-22.74-6.74 -5.86 PRESCRIBER FOR gram Recon Soln SURGERY PREP documented as of this encounter Plan of Treatment Upcoming Encounters Date Type Specialty Care Team Description 12/04/2021 Office Visit Hematology and Oncology Michael Romero MD [facility] ER ONCOLOGY [place] [phone] (Wo rk) 12/04/2021 Infusion Hematology and Oncology 12/18/2021 Office Visit Hematology and Oncology Michael Romero MD [facility] ONCOLOGY [place], [place] [address] (Wo rk) 12/18/2021 Infusion Hematology and Oncology 01/01/2022 Office Visit Hematology and Oncology Michael Romero MD [facility] ONCOLOGY [place], [place] [address] (Wo rk) 01/01/2022 Infusion Hematology and Oncology 01/15/2022 Office Visit Hematology and Oncology Michael Romero MD [facility] ONCOLOGY [place], [place] [address] (Wo rk) 01/15/2022 Infusion Hematology and Oncology 01/29/2022 Office Visit Hematology and Oncology Michael Romero MD [facility] ER ONCOLOGY [place], [place] [address] (Wo rk) 01/29/2022 Infusion Hematology and Oncology 02/12/2022 Office Visit Hematology and Oncology Michael Romero MD [facility] ER DR [place], [place] [address] (Wo rk) 02/12/2022 Infusion Hematology and Oncology 02/26/2022 Office Visit Hematology and Oncology Michael Romero MD [facility] ER DR ONCOLOGY [place], [place] [address] (Wo rk) 02/26/2022 Infusion Hematology [...] / Volume Laterality Tissue 04/01/2021 3:27 PM 1:53 EST PM EST Resulting Agency Comment Spec In Lab Michael Romero MD PATHOLOGY/CYTOLOGY ORDERABLE S Performing Organization Address City/State/Z[place] [address] Surgical Pathology Report (04/01/2021 3:27 PM EST) Component Value Ref Test Analysis Performed At [facility] gist Range Method Time Signature Surgical [id number] ? Location: [facility] Report The signing pathologist has (i) examined the relevant preparation(s) for the [facility] specimen(s) and (ii) rendered or confirmed the diagnosis(es) . HOSPITAL LABORATORY . ?Surgic al Pathology DIAGNOSIS CORRECTED REPORT (See Discussion) _ CONSULTATION CASE Outside slide(s) labeled [id number], collection date 021 Omentum, mass, excision: - Metastatic adenocarcinoma, consistent with patient's known colorectal primary. ( ? see note) Note: Outside immunostaining for CDX2 is positive, sup porting the diagnosis. Electronically signed by: ?Finesse Barrett MD Verified: ??05/11/2021 9:28 ?? Pathologist Performed at: ??-[facility] Dept. of Pathology, [place], [place] DISCUSSION Correction Note: ??Changed CN accession number ??There are no other changes to the text of this report. _ ADDITIONAL STUDIES Whole slide scan: A1, CDX2 SPECIMEN(S) SUBMITTED CONSULTATION CASE A - 5 slide(s) labeled [id number], collection date 1. [id number] Report to: [facility] Surgical Pathology Department [facility], [facility], 2nd Floor [address] [place], [place] ??[address] CLINICAL INFORMATION _. SPECIMEN PROCESSING _ pathology slide(s) are rev iewed. ??Refer to Diagnosis and Specimen Submitted for specific case information. For the full text of the _ r eport(s) please refer to Non- Documentation Pathology in the electronic health record (eDH). Specimen (Source) Anatomical Collection Method Collection Time Re ceived Time Location / / Volume Laterality 04/01/2021 3:27 PM EST Michael Romero MD PATHOLOGY/CYTOLOGY ORDERABLE S Performing Organization Address City/State/[place] [address] documented in this encounter Visit Diagnoses Not on filedocumented in this encounter Care Teams Biomathematician Relationship Specialty Start Date End Date None PCP - General 12/03/19 None documented as of this encounter
--- OUTSIDE RECORDS SUMMARY | 2021-12-04 01:39 | XMS_ITS | Encounter Summary ---
:1940 Author Organization [facility] [place] [address] Care Team Providers Name Role Phone Unavailable Primary Care Provider Unavailable Encounter Details Date Type Department Care Team Description 11/26/2019 Telephone HOUSING PROPERTY MANAGER at [facility] Sofia Rodriguez [address] [place] [address] Social History Tobacco Use Types Packs/Day Years Used Date Never Assessed Sex Assigned at Date Recorded Not on file documented as of this encounter Plan of Treatment Upcoming Encounters Date Type Specialty Care Team Description 12/04/2021 Office Visit Hematology and Oncology Michael Romero MD [facility] ONCOLOGY [place], [place] [address] (Wo rk) 12/04/2021 Infusion Hematology and Oncology 12/18/2021 Office Visit Hematology and Oncology Michael Romero MD [facility] ONCOLOGY [place], [place] 0375 (Wo rk) 12/18/2021 Infusion Hematology and Oncology 01/01/2022 Office Visit Hematology and Oncology Michael Romero MD [facility] ONCOLOGY [place], [place] 0375 (Wo rk) 01/01/2022 Infusion Hematology and Oncology 01/15/2022 Office Visit Hematology and Oncology Michael Romero MD [facility] ONCOLOGY [place], [place] 0375 (Wo rk) 01/15/2022 Infusion Hematology and Oncology 01/29/2022 Office Visit Hematology and Oncology Michael Romero MD [facility] ONCOLOGY [place], [place] 0375 (Wo rk) 01/29/2022 Infusion Hematology and Oncology 02/12/2022 Office Visit Hematology and Oncology Michael Romero MD [facility] [address] [place], [place] [address]375 (Wo rk) 02/12/2022 Infusion Hematology and Oncology 02/26/2022 Office Visit Hematology and Oncology Michael Romero MD [facility] [address] [place], [place] 0375 (Wo rk) 02/26/2022 Infusion Hematology and Oncology documented as of this encounter Visit Diagnoses Not on filedocumented in this encounter
--- OUTSIDE RECORDS SUMMARY | 2021-12-04 01:39 | XMS_ITS | Encounter Summary ---
:1940 Author Organization [facility] [place] [address] Care Team Providers Name Role Phone None Primary Care Provider Unavailable Reason for Visit Surgical (Routine) - Canceled Specialty Diagnoses / Procedures Referred By Contact Refer red To Contact Diagnoses Hydrosalpinx Dannie Epperson DO Procedures HYSTERECTOMY, TOTAL ABD., W W/O BSO [address] [place] [address] OBSTETRICS & [place] [address] Referral ID Status Reason Start Expiration Visits Visits Date Date Requested Authorized [id number] Canceled Specialty 12/03/2019 05/31/2020 1 1 Service Requested Encounter Details Date Type Department Care Team Description 12/05/2019 Ext Surgery or [facility] Dannie Epperson DO Malignant neoplasm [facility] [address] [place] [address] of ascending colon [address] [place], [place] GYNECOLOGY [address] [place] [address] [phone] (Wo rk) Social History Tobacco Use Types Packs/Day Years Used Date Never Smoker Smokeless Tobacco: Never Used Sex Assigned at Date Recorded Not on file documented as of this encounter Procedure Notes Dannie Epperson DO - 12/05/2019 7:30 AM EDT [facility] BRIEF OPERATIVE NOTE Date: 12/05/2019 Preop Dx: R adnexal cyst, colon cancer, bladder cancer Postop Dx: same Procedure: JOSE ROBERTO-BSO Surgeon: Zeenat Conference And Event Organiser: Kahlil Hackett MD, PGY2 Anesthesia: GETA EBL: min UO: colon to gravity Intraop meds: toradol Complications: none Findings: right sided colon mass, abdominal wall, right adnexal cyst of tube and ovary Pathology: uterus, tubes, ovaries Disposition: stable documented in this encounter Plan of Treatment Upcoming Encounters Date Type Specialty Care Team Description 12/04/2021 Office Visit Hematology and Oncology Michael Romero MD [facility] ONCOLOGY [place] [id number] (Wo rk) 12/04/2021 Infusion Hematology and Oncology 12/18/2021 Office Visit Hematology and Oncology Michael Romero MD [facility] ONCOLOGY [place], [place] [address] (Wo rk) 12/18/2021 Infusion Hematology and Oncology 01/01/2022 Office Visit Hematology and Oncology Michael Romero MD [facility] ONCOLOGY [place], [place] [address]375 (Wo rk) 01/01/2022 Infusion Hematology and Oncology 01/15/2022 Office Visit Hematology and Oncology Michael Romero MD [facility] [address] [place], [place] 0375 (Wo rk) 01/15/2022 Infusion Hematology and Oncology 01/29/2022 Office Visit Hematology and Oncology Michael Romero MD [facility] ONCOLOGY [place], [place] [address] (Wo rk) 01/29/2022 Infusion Hematology and Oncology 02/12/2022 Office Visit Hematology and Oncology Michael Romero MD [facility] [address] [place], [place] [address] (Wo rk) 02/12/2022 Infusion Hematology and Oncology 02/26/2022 Office Visit Hematology and Oncology Michael Romero MD [facility] [address] [place], [place] 0375 (Wo rk) 02/26/2022 Infusion Hematology and Oncology documented as of this encounter Visit Diagnoses Diagnosis Malignant neoplasm of ascending colon documented in this encounter Care Teams Assembler Tractor Relationship Specialty Start Date End Date None PCP - General 12/03/19 None documented as of this encounter
--- OUTSIDE RECORDS SUMMARY | 2021-12-04 01:39 | XMS_ITS | Encounter Summary ---
:1940 [place] [address] Care Team Providers Name Role Phone None Primary Care Provider Unavailable Encounter Details Date Type Department Care Team Description 12/25/2019 Ancillary Procedure Radiology Library at Jorge Romero [facility] [place] [address] ONCOLOGY [phone] [place], [place] [address] (Wo rk) Social History Tobacco Use Types Packs/Day Years Used Date Never Smoker Smokeless Tobacco: Never Used Sex Assigned at Date Recorded Not on file documented as of this encounter Plan of Treatment Upcoming Encounters Date Type Specialty Care Team Description 12/04/2021 Office Visit Hematology and Oncology Michael Romero MD [facility] [address] [place], [place] [address] (Wo rk) 12/04/2021 Infusion Hematology and Oncology 12/18/2021 Office Visit Hematology and Oncology Michael Romero MD [facility] [address] [place], [place] [address] (Wo rk) 12/18/2021 Infusion Hematology and Oncology 01/01/2022 Office Visit Hematology and Oncology Michael Romero MD [facility] [address] [place], [place] [address] (Wo rk) 01/01/2022 Infusion Hematology and Oncology 01/15/2022 Office Visit Hematology and Oncology Micheal Romero MD [facility] ER ONCOLOGY [place], [place] 0375 (Wo rk) 01/15/2022 Infusion Hematology and Oncology 01/29/2022 Office Visit Hematology and Oncology Michael Romero MD [facility] ONCOLOGY [place], [place] [address]375 (Wo rk) 01/29/2022 Infusion Hematology and Oncology 02/12/2022 Office Visit Hematology and Oncology Michael Romero MD [facility] ONCOLOGY [place], [place] [address] (Wo rk) 02/12/2022 Infusion Hematology and Oncology 02/26/2022 Office Visit Hematology and Oncology Michael Romero MD [facility] ONCOLOGY [place], [place] [address]375 (Wo rk) 02/26/2022 Infusion Hematology [...] / Laterality Volume Narrative ANGELICA HAY - 04/16/2021 11:04 AM EST This exam is auto-finalizing. It's purpo se is for storage only. Michael Romero MD IMJose FILM LIBRARY ORDERABLES Performing Organization Address City/State/ZIP Code Phon e Number BHARTI [place], [place] documented in this encounter Visit Diagnoses Not on filedocumented in this encounter Care Teams Line Installation Supervisor Relationship Specialty Start Date End Date None PCP - General 12/03/19 None documented as of this encounter
--- OUTSIDE RECORDS SUMMARY | 2021-12-04 01:39 | XMS_ITS | Encounter Summary ---
:1940 [place] [address] Care Team Providers Name Role Phone None Primary Care Provider Unavailable Encounter Details Date Type Department Care Team Description 01/23/2020 Ancillary Procedure Radiology Library at Jorge Romero [facility] [place] [address] ONCOLOGY [phone] [place], [place] [address] (Wo rk) Social History Tobacco Use Types Packs/Day Years Used Date Never Smoker Smokeless Tobacco: Never Used Sex Assigned at Date Recorded Not on file documented as of this encounter Plan of Treatment Upcoming Encounters Date Type Specialty Care Team Description 12/04/2021 Office Visit Hematology and Oncology Michael Romero MD [facility] [address] [place], [place] [address] (Wo rk) 12/04/2021 Infusion Hematology and Oncology 12/18/2021 Office Visit Hematology and Oncology Michael Romero MD [facility] [address] [place], [place] [address] (Wo rk) 12/18/2021 Infusion Hematology and Oncology 01/01/2022 Office Visit Hematology and Oncology Michael Romero MD [facility] [address] [place], [place] [address] (Wo rk) 01/01/2022 Infusion Hematology and Oncology 01/15/2022 Office Visit Hematology and Oncology Michael Romero MD [facility] ER ONCOLOGY [place], [place] [address] (Wo rk) 01/15/2022 Infusion Hematology and Oncology 01/29/2022 Office Visit Hematology and Oncology Michael Romero MD [facility] ONCOLOGY [place], [place] [address]375 (Wo rk) 01/29/2022 Infusion Hematology and Oncology 02/12/2022 Office Visit Hematology and Oncology Michael Romero MD [facility] ONCOLOGY [place], [place] [address] (Wo rk) 02/12/2022 Infusion Hematology and Oncology 02/26/2022 Office Visit Hematology and Oncology Michael Romero MD [facility] ONCOLOGY [place], [place] [address] (Wo rk) 02/26/2022 Infusion Hematology [...] Laterality Volume Narrative ANGELICA HAY - 04/16/2021 10:56 AM EST This exam is auto-finalizing. It's purpo se is for storage only. Michael Romero MD IMJose FILM LIBRARY ORDERABLES Performing Organization Address City/State/ZIP Code Phon e Number BHARTI [place], [place] documented in this encounter Visit Diagnoses Not on filedocumented in this encounter Care Teams Chemistry Intern Relationship Specialty Start Date End Date None PCP - General 12/03/19 None documented as of this encounter
--- OUTSIDE RECORDS SUMMARY | 2021-12-04 01:39 | XMS_ITS | Encounter Summary ---
:1940 [place] [address] Care Team Providers Name Role Phone None Primary Care Provider Unavailable Encounter Details Date Type Department Care Team Description 04/01/2020 Ancillary Procedure Radiology Library at Jorge Romero [facility] [place] [address] ONCOLOGY [phone] [place], [place] [address] (Wo rk) Social History Tobacco Use Types Packs/Day Years Used Date Never Smoker Smokeless Tobacco: Never Used Sex Assigned at Date Recorded Not on file documented as of this encounter Plan of Treatment Upcoming Encounters Date Type Specialty Care Team Description 12/04/2021 Office Visit Hematology and Oncology Michael Romero MD [facility] [address] [place], [place] [address] (Wo rk) 12/04/2021 Infusion Hematology and Oncology 12/18/2021 Office Visit Hematology and Oncology Michael Romero MD [facility] [address] [place], [place] [address] (Wo rk) 12/18/2021 Infusion Hematology and Oncology 01/01/2022 Office Visit Hematology and Oncology Michael Romero MD [facility] [address] [place], [place] [address] (Wo rk) 01/01/2022 Infusion Hematology and Oncology 01/15/2022 Office Visit Hematology and Oncology Michael Romero MD [facility] ONCOLOGY [place], [place] [address] (Wo rk) 01/15/2022 Infusion Hematology and Oncology 01/29/2022 Office Visit Hematology and Oncology Michael Romero MD [facility] ONCOLOGY [place], [place] [address] (Wo rk) 01/29/2022 Infusion Hematology and Oncology 02/12/2022 Office Visit Hematology and Oncology Michael Romero MD [facility] ONCOLOGY [place], [place] [address] (Wo rk) 02/12/2022 Infusion Hematology and Oncology 02/26/2022 Office Visit Hematology and Oncology Michael Romero MD [facility] ONCOLOGY [place], [place] [address] (Wo rk) 02/26/2022 Infusion Hematology [...] Laterality Volume Narrative ANGELICA HAY - 04/16/2021 11:02 AM EST This exam is auto-finalizing. It's purpo se is for storage only. Michael Romero MD IMJose FILM LIBRARY ORDERABLES Performing Organization Address City/State/ZIP Code Phon e Number BHARTI [place], [place] documented in this encounter Visit Diagnoses Not on filedocumented in this encounter Care Teams Lace Pinner Relationship Specialty Start Date End Date None PCP - General 12/03/19 None documented as of this encounter
--- OUTSIDE RECORDS SUMMARY | 2021-12-04 01:39 | XMS_ITS | Encounter Summary ---
:1940 [place] [address] Care Team Providers Name Role Phone None Primary Care Provider Unavailable Encounter Details Date Type Department Care Team Description 10/04/2020 Ancillary Procedure Radiology Library at Jorge Romero [facility] [place] [address] ONCOLOGY [phone] [place], [place] [address] (Wo rk) Social History Tobacco Use Types Packs/Day Years Used Date Never Smoker Smokeless Tobacco: Never Used Sex Assigned at Date Recorded Not on file documented as of this encounter Plan of Treatment Upcoming Encounters Date Type Specialty Care Team Description 12/04/2021 Office Visit Hematology and Oncology Michael Romero MD [facility] [address] [place], [place] [address] (Wo rk) 12/04/2021 Infusion Hematology and Oncology 12/18/2021 Office Visit Hematology and Oncology Michael Romero MD [facility] [address] [place], [place] [address] (Wo rk) 12/18/2021 Infusion Hematology and Oncology 01/01/2022 Office Visit Hematology and Oncology Michael Romero MD [facility] ONCOLOGY [place], [place] [address] (Wo rk) 01/01/2022 Infusion Hematology and Oncology 01/15/2022 Office Visit Hematology and Oncology Michael Romero MD [facility] ONCOLOGY [place], [place] [address] (Wo rk) 01/15/2022 Infusion Hematology and Oncology 01/29/2022 Office Visit Hematology and Oncology Michael Romero MD [facility] ONCOLOGY [place], [place] [address] (Wo rk) 01/29/2022 Infusion Hematology and Oncology 02/12/2022 Office Visit Hematology and Oncology Michael Romero MD [facility] ONCOLOGY [place], [place] [address] (Wo rk) 02/12/2022 Infusion Hematology and Oncology 02/26/2022 Office Visit Hematology and Oncology Michael Romero MD [facility] ONCOLOGY [place], [place] [address] (Wo rk) 02/26/2022 Infusion Hematology [...] Laterality Volume Narrative ANGELICA HAY - 04/16/2021 11:01 AM EST This exam is auto-finalizing. It's purpo se is for storage only. Michael Romero MD IMJose FILM LIBRARY ORDERABLES Performing Organization Address City/State/ZIP Code Phon e Number BHARTI [place], [place] documented in this encounter Visit Diagnoses Not on filedocumented in this encounter Care Teams Helicopter Engineer Relationship Specialty Start Date End Date None PCP - General 12/03/19 None documented as of this encounter
--- OUTSIDE RECORDS SUMMARY | 2021-12-04 01:39 | XMS_ITS | Encounter Summary ---
:1940 [place] [address] Care Team Providers Name Role Phone None Primary Care Provider Unavailable Encounter Details Date Type Department Care Team Description 12/24/2020 Ancillary Procedure Radiology Library at Jorge Romero [facility] [place] [address] ONCOLOGY [phone] [place], [place] [address] (Wo rk) Social History Tobacco Use Types Packs/Day Years Used Date Never Smoker Smokeless Tobacco: Never Used Sex Assigned at Date Recorded Not on file documented as of this encounter Plan of Treatment Upcoming Encounters Date Type Specialty Care Team Description 12/04/2021 Office Visit Hematology and Oncology Michael Romero MD [facility] [address] [place], [place] [address] (Wo rk) 12/04/2021 Infusion Hematology and Oncology 12/18/2021 Office Visit Hematology and Oncology Michael Romero MD [facility] [address] [place], [place] [address]375 (Wo rk) 12/18/2021 Infusion Hematology and Oncology 01/01/2022 Office Visit Hematology and Oncology Michael Romero MD [facility] ONCOLOGY [place], [place] [address]375 (Wo rk) 01/01/2022 Infusion Hematology and Oncology 01/15/2022 Office Visit Hematology and Oncology Michael Romero MD [facility] ONCOLOGY [place], [place] [address]375 (Wo rk) 01/15/2022 Infusion Hematology and Oncology 01/29/2022 Office Visit Hematology and Oncology Michael Romero MD [facility] ONCOLOGY [place], [place] 0375 (Wo rk) 01/29/2022 Infusion Hematology and Oncology 02/12/2022 Office Visit Hematology and Oncology Michael Romero MD [facility] ONCOLOGY [place], [place] 0375 (Wo rk) 02/12/2022 Infusion Hematology and Oncology 02/26/2022 Office Visit Hematology and Oncology Michael Romero MD [facility] ONCOLOGY [place], [place] 0375 (Wo rk) 02/26/2022 Infusion Hematology [...] Laterality Volume Narrative ANGELICA HAY - 04/16/2021 10:53 AM EST This exam is auto-finalizing. It's purpo se is for storage only. Michael Romero MD IMJose FILM LIBRARY ORDERABLES Performing Organization Address City/State/ZIP Code Phon e Number BHARTI [place], [place] documented in this encounter Visit Diagnoses Not on filedocumented in this encounter Care Teams Food Specialist Relationship Specialty Start Date End Date None PCP - General 12/03/19 None documented as of this encounter
--- OUTSIDE RECORDS SUMMARY | 2021-12-04 01:39 | XMS_ITS | Encounter Summary ---
:1940 Author Organization [place] [address] Care Team Providers Name Role Phone None Primary Care Provider Unavailable Reason for Visit Reason Comments Pre-op Exam Encounter Details Date Type Department Care Team Description 12/03/2019 Office Visit [facility]SP[facility] at [place] Dannie Epperson DO Hydrosalpinx [address] OBSTETRICS & [place] [address] [place] [address] [phone] (Wo rk) Social History Tobacco Use Types [...] very pleasant 79 yo para 4 from [place] who is a new patient in consult today as requested by Dr Live Sood of the General Surgery group at [facility]. She presents alone today, and her Romero is in the car outside. Dr Sood is requesting gynecology presence at plannedlaparotomy for colon cancer resection for possible JOSE ROBERTO-BSO if needed. This has been scheduled for 12/05/2019. The patient has undergone prior visit with OSH and decided to pursue second opinion with general surgery at [facility]. She reports a history of colonoscopy in [...] of hydrosalpinx on right per patient report. 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 She reported moderate flow. She reports mammography in 1989 that were normal. She reports having always had a normal Pap history and no STDs. She reports last colonoscopy 2 to 3 years ago. Social history: She does not smoke, drink or use drugs. 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 She is to Celia, age 79. He [...] laparotomy 12/05/2019. 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 INSURANCE HEARING OFFICER presence at time of her surgery to [...] We spent approximately 30 minutes in direct [id number] discussion, collection of historical data, review of [...] Michael Romero MD [facility] [address] [place], [place] [address] (Wo rk) 12/04/2021 Infusion Hematology and Oncology 12/18/2021 Office Visit Hematology and Oncology Michael Romero MD [facility] [address] [place], [place] [address] (Wo rk) 12/18/2021 Infusion Hematology and Oncology 01/01/2022 Office Visit Hematology and Oncology Michael Romero MD [facility] [address] [place], [place] 0375 (Wo rk) 01/01/2022 Infusion Hematology and Oncology 01/15/2022 Office Visit Hematology and Oncology Michael Romero MD [facility] [address] [place], [place] 0375 (Wo rk) 01/15/2022 Infusion Hematology and Oncology 01/29/2022 Office Visit Hematology and Oncology Michael Romero MD [facility] [address] [place], [place] [address] (Wo rk) 01/29/2022 Infusion Hematology and Oncology 02/12/2022 Office Visit Hematology and Oncology Michael Romero MD [facility] [address] [place], [place] [address]375 (Wo rk) 02/12/2022 Infusion Hematology and Oncology 02/26/2022 Office Visit Hematology and Oncology Michael Romero MD [facility] DR ONCOLOGY [place], [place] [address] (Wo rk) 02/26/2022 Infusion Hematology and [...] Diagnoses Diagnosis Hydrosalpinx Chronic salpingitis and oophoritis documented in this encounter Care Teams Certified Massage Therapist Relationship Specialty Start Date End Date None PCP - General 12/03/19 None documented as of this encounter
--- OUTSIDE RECORDS SUMMARY | 2021-12-04 01:39 | XMS_ITS | Encounter Summary ---
:1940 Author Organization [facility] [place] [address] Care Team Providers Name Role Phone None Primary Care Provider Unavailable Reason for Visit Reason Onset Date Comments Schedule External Case 12/03/2019 Encounter Details Date Type Department Care Team Description 12/03/2019 Telephone CATERING COOK at [facility] Noreen Mendoza External Case Park [address] [place] [phone] Social History Tobacco Use Types Packs/Day Years Used Date Never Smoker Smokeless Tobacco: Never Used Sex Assigned at Date Recorded Not on file documented as of this encounter Miscellaneous Notes Telephone Encounter - Noreen Mendoza - 12/03/2019 4:36 PM EDT I have scheduled Joy's surgery for 12/04 at 7:30am at [facility] with [place]. Epperson (along with Drs. Smyth & Kathleen). She's having a JOSE ROBERTO, BSO with Dr. Epperson. Noreen CPT code 78959, Am Admit documented in this encounter Plan of Treatment Upcoming Encounters Date Type Specialty Care Team Description 12/04/2021 Office Visit Hematology and Oncology Michael Romero MD [facility] [address] [place], [place] [address] (Susana doss) 12/04/2021 Infusion Hematology and Oncology 12/18/2021 Office Visit Hematology and Oncology Michael Romero MD [facility] [address] [place], [place] [address] (Wo rk) 12/18/2021 Infusion Hematology and Oncology 01/01/2022 Office Visit Hematology and Oncology Michael Romero MD [facility] ER ONCOLOGY [place], [place] [address]375 (Wo rk) 01/01/2022 Infusion Hematology and Oncology 01/15/2022 Office Visit Hematology and Oncology Michael Romero MD [facility] [place], [place] [address] (Wo rk) 01/15/2022 Infusion Hematology and Oncology 01/29/2022 Office Visit Hematology and Oncology Michael Romero MD [facility] ONCOLOGY [place], [place] [address]375 (Wo rk) 01/29/2022 Infusion Hematology and Oncology 02/12/2022 Office Visit Hematology and Oncology Michael Romero MD [facility] ONCOLOGY [place], [place] 0375 (Wo rk) 02/12/2022 Infusion Hematology and Oncology 02/26/2022 Office Visit Hematology and Oncology Michael Romero MD [facility] [address] [place], [place] [address] (Wo rk) 02/26/2022 Infusion Hematology and Oncology documented as of this encounter Visit Diagnoses Not on filedocumented in this encounter Care Teams Oven Technician Relationship Specialty Start Date End Date None PCP - General 12/03/19 None documented as of this encounter
--- OUTSIDE RECORDS SUMMARY | 2021-12-04 01:39 | XMS_ITS | Encounter Summary ---
:1940 [place] [address] Care Team Providers Name Role Phone Unavailable Primary Care Provider Unavailable Encounter Details Date Type Department Care Team Description 10/30/2019 Ancillary Procedure Radiology Library at Jorge Romero [facility] [place] [address] ONCOLOGY [phone] [place], [place] [address]375 (Wo rk) Social History Tobacco Use Types Packs/Day Years Used Date Never Assessed Sex Assigned at Date Recorded Not on file documented as of this encounter Plan of Treatment Upcoming Encounters Date Type Specialty Care Team Description 12/04/2021 Office Visit Hematology and Oncology Michael Romero MD [facility] ONCOLOGY [place], [place] [address] (Wo rk) 12/04/2021 Infusion Hematology and Oncology 12/18/2021 Office Visit Hematology and Oncology Michale Romero MD [facility] ONCOLOGY [place], [place] 0375 (Wo rk) 12/18/2021 Infusion Hematology and Oncology 01/01/2022 Office Visit Hematology and Oncology Michael Romero MD [facility] ONCOLOGY [place], [place] 0375 (Wo rk) 01/01/2022 Infusion Hematology and Oncology 01/15/2022 Office Visit Hematology and Oncology Michael Romero MD [facility] ONCOLOGY [place], [place] 0375 (Wo rk) 01/15/2022 Infusion Hematology and Oncology 01/29/2022 Office Visit Hematology and Oncology Michael Romero MD [facility] ONCOLOGY [place], [place] 0375 (Wo rk) 01/29/2022 Infusion Hematology and Oncology 02/12/2022 Office Visit Hematology and Oncology Michael Romero MD [facility] ONCOLOGY [place], [place] 0375 (Wo rk) 02/12/2022 Infusion Hematology and Oncology 02/26/2022 Office Visit Hematology and Oncology Michael Romero MD [facility] ONCOLOGY [place], [place] 0375 (Wo rk) 02/26/2022 Infusion Hematology [...] Laterality Volume Narrative ANGELICA HAY - 04/16/2021 11:06 AM EST This exam is auto-finalizing. It's purpo se is for storage only. Michael Romero MD IMJose FILM LIBRARY ORDERABLES Performing Organization Address City/State/ZIP Code Phon e Number BHARTI BHARTI [employer], [place] documented in this encounter Visit Diagnoses Not on filedocumented in this encounter
--- OUTSIDE RECORDS SUMMARY | 2021-12-04 01:39 | XMS_ITS | Encounter Summary ---
:1940 [place] [address] Care Team Providers Name Role Phone None Primary Care Provider Unavailable Encounter Details Date Type Department Care Team Description 10/31/2020 Ancillary Procedure Radiology Library at Jorge Romero [facility] [place] [address] ONCOLOGY [phone] [place], [place] [address]375 (Wo rk) Social History Tobacco Use Types Packs/Day Years Used Date Never Smoker Smokeless Tobacco: Never Used Sex Assigned at Date Recorded Not on file documented as of this encounter Plan of Treatment Upcoming Encounters Date Type Specialty Care Team Description 12/04/2021 Office Visit Hematology and Oncology Michael Romero MD [facility] [address] [place], [place] [address] (Wo rk) 12/04/2021 Infusion Hematology and Oncology 12/18/2021 Office Visit Hematology and Oncology Michael Romero MD [facility] [address] [place], [place] 0375 (Wo rk) 12/18/2021 Infusion Hematology and Oncology 01/01/2022 Office Visit Hematology and Oncology Michael Romero MD [facility] ONCOLOGY [place], [place] 0375 (Wo rk) 01/01/2022 Infusion Hematology and Oncology 01/15/2022 Office Visit Hematology and Oncology Michael Romero MD [facility] ONCOLOGY [place], [place] 0375 (Wo rk) 01/15/2022 Infusion Hematology and Oncology 01/29/2022 Office Visit Hematology and Oncology Michael Romero MD [facility] ONCOLOGY [place], [place] 0375 (Wo rk) 01/29/2022 Infusion Hematology and Oncology 02/12/2022 Office Visit Hematology and Oncology Michael Romero MD [facility] ONCOLOGY [place], [place] 0375 (Wo rk) 02/12/2022 Infusion Hematology and Oncology 02/26/2022 Office Visit Hematology and Oncology Michael Romero MD [facility] ONCOLOGY [place], [place] 0375 (Wo rk) 02/26/2022 Infusion Hematology [...] Laterality Volume Narrative ANGELICA HAY - 04/16/2021 10:59 AM EST This exam is auto-finalizing. It's purpo se is for storage only. Michael Romero MD IMJose FILM LIBRARY ORDERABLES Performing Organization Address City/State/ZIP Code Phon e Number BHARTI [place], [place] documented in this encounter Visit Diagnoses Not on filedocumented in this encounter Care Teams Sinter Machine Operator Relationship Specialty Start Date End Date None PCP - General 12/03/19 None documented as of this encounter
--- OUTSIDE RECORDS SUMMARY | 2021-12-04 01:39 | XMS_ITS | Encounter Summary ---
:1940 [place] [address] Care Team Providers Name Role Phone Unavailable Primary Care Provider Unavailable Encounter Details Date Type Department Care Team Description 10/29/2019 Ancillary Procedure Radiology Library at Jorge Romero [facility] [place] [address] ONCOLOGY [phone] [place], [place] 0375 (Wo rk) Social History Tobacco Use Types Packs/Day Years Used Date Never Assessed Sex Assigned at Date Recorded Not on file documented as of this encounter Plan of Treatment Upcoming Encounters Date Type Specialty Care Team Description 12/04/2021 Office Visit Hematology and Oncology Michael Romero MD [facility] ONCOLOGY [place], [place] 0375 (Wo rk) 12/04/2021 Infusion Hematology and Oncology 12/18/2021 Office Visit Hematology and Oncology Michael Romero MD [facility] ONCOLOGY [place], [place] 0375 (Wo rk) 12/18/2021 Infusion Hematology and Oncology 01/01/2022 Office Visit Hematology and Oncology Michael Romero MD [facility] ONCOLOGY [place], [place] 0375 (Wo rk) 01/01/2022 Infusion Hematology and Oncology 01/15/2022 Office Visit Hematology and Oncology Michael Romero MD [facility] ONCOLOGY [place], [place] 0375 (Wo rk) 01/15/2022 Infusion Hematology and Oncology 01/29/2022 Office Visit Hematology and Oncology Michael Romero MD [facility] ONCOLOGY [place], [place] 0375 (Wo rk) 01/29/2022 Infusion Hematology and Oncology 02/12/2022 Office Visit Hematology and Oncology Michael Romero MD [facility] ONCOLOGY [place], [place] 0375 (Wo rk) 02/12/2022 Infusion Hematology and Oncology 02/26/2022 Office Visit Hematology and Oncology Michael Romero MD [facility] ONCOLOGY [place], [place] 0375 (Wo rk) 02/26/2022 Infusion Hematology [...] Laterality Volume Narrative ANGELICA HAY - 04/16/2021 11:09 AM EST This exam is auto-finalizing. It's purpo se is for storage only. Michael Romero MD IMG FILM LIBRARY ORDERABLES Performing Organization Address City/State/ZIP Code Phon e Number RAD [place], [place] documented in this encounter Visit Diagnoses Not on filedocumented in this encounter
--- OUTSIDE RECORDS SUMMARY | 2021-12-04 01:39 | XMS_ITS | Encounter Summary ---
:1940 [place] [address] Care Team Providers Name Role Phone Unavailable Primary Care Provider Unavailable Encounter Details Date Type Department Care Team Description 10/23/2019 Ancillary Procedure Radiology Library at Jorge Romero [facility] [place] [address] ONCOLOGY [phone] [place], [place] [address]375 (Wo rk) Social History Tobacco Use Types Packs/Day Years Used Date Never Assessed Sex Assigned at Date Recorded Not on file documented as of this encounter Plan of Treatment Upcoming Encounters Date Type Specialty Care Team Description 12/04/2021 Office Visit Hematology and Oncology Michael Romero MD [facility] ONCOLOGY [place], [place] 0375 (Wo rk) 12/04/2021 Infusion Hematology and Oncology 12/18/2021 Office Visit Hematology and Oncology Michael Romero MD [facility] ONCOLOGY [place], [place] [address]375 (Wo rk) 12/18/2021 Infusion Hematology and Oncology 01/01/2022 Office Visit Hematology and Oncology Michael Romero MD [facility] ONCOLOGY [place], [place] 0375 (Wo rk) 01/01/2022 Infusion Hematology and Oncology 01/15/2022 Office Visit Hematology and Oncology Michael Romero MD [facility] ONCOLOGY [place], [place] 0375 (Wo rk) 01/15/2022 Infusion Hematology and Oncology 01/29/2022 Office Visit Hematology and Oncology Michael Romero MD [facility] ONCOLOGY [place], [place] 0375 (Wo rk) 01/29/2022 Infusion Hematology and Oncology 02/12/2022 Office Visit Hematology and Oncology Michael Romero MD [facility] ONCOLOGY [place], [place] 0375 (Wo rk) 02/12/2022 Infusion Hematology and Oncology 02/26/2022 Office Visit Hematology and Oncology Michael Romero MD [facility] ONCOLOGY [place], [place] 0375 (Wo rk) 02/26/2022 Infusion Hematology and Oncology documented as of this encounter Procedures Procedure Name Priority Date/Time Associated Comments Diagnosis FILM LIBRARY STORAGE Routine 10/23/2019 12:00 AM Results for this ONLY ULTRASOUND EDT procedure ar vasiliy in STUDY the results section. documented in this encounter Results Film Library- Storage Only Ultrasound Study (10/23/2019 12:00 AM EDT) Specimen (Source) Anatomical Location Collection Method / Collectio n Time Received Time / Laterality Volume Narrative ANGELICA RAD - 04/16/2021 11:10 AM EST This exam is auto-finalizing. It's purpo se is for storage only. Michael Romero MD IMG FILM LIBRARY ORDERABLES Performing Organization Address City/State/ZIP Code Phon e Number RAD [place], [place] documented in this encounter Visit Diagnoses Not on filedocumented in this encounter
--- OUTSIDE RECORDS SUMMARY | 2021-12-04 01:39 | XMS_ITS | Encounter Summary ---
:1940 Author Organization [facility] [address] Care Team Providers Name Role Phone Unavailable Primary Care Provider Unavailable Encounter Details Date Type Department Care Team Description 11/26/2019 Orders Only SPREADER OPERATOR [facility] Dannie Castañeda, DO Manzo [address] OBSTETRICS & [place] [address] [place] [address] [phone] (Wo rk) Social History Tobacco Use Types Packs/Day Years Used Date Never Assessed Sex Assigned at Date Recorded Not on file documented as of this encounter Plan of Treatment Upcoming Encounters Date Type Specialty Care Team Description 12/04/2021 Office Visit Hematology and Oncology Michael Romero MD [facility] [address] [place], [place] [address] (Wo rk) 12/04/2021 Infusion Hematology and Oncology 12/18/2021 Office Visit Hematology and Oncology Michael Romero MD [facility] [address] [place], [place] 0375 (Wo rk) 12/18/2021 Infusion Hematology and Oncology 01/01/2022 Office Visit Hematology and Oncology Michael Romero MD [facility] [address] [place], [place] 0375 (Wo rk) 01/01/2022 Infusion Hematology and Oncology 01/15/2022 Office Visit Hematology and Oncology Michael Romero MD [facility] [address] [place], [place] 0375 (Wo rk) 01/15/2022 Infusion Hematology and Oncology 01/29/2022 Office Visit Hematology and Oncology Michael Romero MD [facility] ONCOLOGY [place], [place] 0375 (Wo rk) 01/29/2022 Infusion Hematology and Oncology 02/12/2022 Office Visit Hematology and Oncology Michael Romero MD [facility] ONCOLOGY [place], [place] 0375 (Wo rk) 02/12/2022 Infusion Hematology and Oncology 02/26/2022 Office Visit Hematology and Oncology Michael Romero MD [facility] ONCOLOGY [place], [place] 0375 (Wo rk) 02/26/2022 Infusion Hematology and Oncology documented as of this encounter Visit Diagnoses Not on filedocumented in this encounter
--- OUTSIDE RECORDS SUMMARY | 2021-12-04 01:39 | XMS_ITS | Encounter Summary ---
:1940 [place] [address] Care Team Providers Name Role Phone Unavailable Primary Care Provider Unavailable Encounter Details Date Type Department Care Team Description 10/03/2019 Ancillary Procedure Radiology Library at Jorge Romero [facility] [place] [address] ONCOLOGY [phone] [place], [place] [address] (Wo rk) Social History Tobacco Use Types Packs/Day Years Used Date Never Assessed Sex Assigned at Date Recorded Not on file documented as of this encounter Plan of Treatment Upcoming Encounters Date Type Specialty Care Team Description 12/04/2021 Office Visit Hematology and Oncology Michael Romero MD [facility] ONCOLOGY [place], [place] 0375 (Wo rk) 12/04/2021 Infusion Hematology and Oncology 12/18/2021 Office Visit Hematology and Oncology Michael Romero MD [facility] ONCOLOGY [place], [place] 0375 (Wo rk) 12/18/2021 Infusion Hematology and Oncology 01/01/2022 Office Visit Hematology and Oncology Michael Romero MD [facility] ONCOLOGY [place], [place] 0375 (Wo rk) 01/01/2022 Infusion Hematology and Oncology 01/15/2022 Office Visit Hematology and Oncology Michael Romero MD [facility] ONCOLOGY [place], [place] 0375 (Wo rk) 01/15/2022 Infusion Hematology and Oncology 01/29/2022 Office Visit Hematology and Oncology Michael Romero MD [facility] ONCOLOGY [place], [place] 0375 (Wo rk) 01/29/2022 Infusion Hematology and Oncology 02/12/2022 Office Visit Hematology and Oncology Michael Romero MD [facility] ONCOLOGY [place], [place] 0375 (Wo rk) 02/12/2022 Infusion Hematology and Oncology 02/26/2022 Office Visit Hematology and Oncology Michael Romero MD [facility] ONCOLOGY [place], [place] 0375 (Wo rk) 02/26/2022 Infusion Hematology [...] Laterality Volume Narrative ANGELICA HAY - 04/16/2021 11:11 AM EST This exam is auto-finalizing. It's purpo se is for storage only. Michael Romero MD IMJose FILM LIBRARY ORDERABLES Performing Organization Address City/State/ZIP Code Phon e Number BHARTI [place], [place] documented in this encounter Visit Diagnoses Not on filedocumented in this encounter
--- OUTSIDE RECORDS SUMMARY | 2021-12-04 01:41 | XMS_ITS | Encounter Summary ---
:1940 Author Organization [facility] Address [address] [place] [address] Care Team Providers Name Role Phone Nayan Hilton DO Primary Care Provider Reason for Visit (Routine) - Receiving Office to Obtain Authorization Specialty Diagnoses / Procedures Referred By Contact Refer red To Contact Procedures Unknown, Provider, CT OUTSIDE IMAGES BODY Phone: Referral ID Status Reason Start Expiration Visits Visits Date Date Requested Authorized [id number] Receiving Office 11/07/2019 1 1 to Obtain Authorization Encounter Details Date Type Department Care Team Description 10/30/2019 Hospital Encounter [facility] [place] [address] [place] [address] Social History Tobacco Use Types Packs/Day Years [...] on filedocumented in this encounter Care Teams Umbrella Tipper Relationship Specialty Start Date End Date Nayan Hilton DO PCP - General 06/17/17 04/01/20 documented as of this encounter
--- OUTSIDE RECORDS SUMMARY | 2021-12-04 01:41 | XMS_ITS | Encounter Summary ---
:1940 Author Organization [facility] Address [address] [place] [address] Care Team Providers Name Role Phone Dacia Hendrix MD Primary Care Provider [phone] Encounter Details Date Type Department Care Team Description 12/23/2015 Hospital Encounter [facility] - [facility] [place], [facility] MD Dacia [address] [facility] [address] [place] [address] [place] [address] (Wo rk) Social History Tobacco Use Types [...] as of this encounter Discharge Diagnoses Diagnosis N85.8 Other specified noninflammatory di sorders of uterus-N85.8[ICD-10-CM] documented in this encounter Medications at Time [...] on filedocumented in this encounter Care Teams Support Technician Relationship Specialty Start Date End Date Dacia Hendrix MD PCP - General 12/23/15 06/16/17 [address] [place] [address] documented as of this encounter
--- OUTSIDE RECORDS SUMMARY | 2021-12-04 01:41 | XMS_ITS | Encounter Summary ---
:1940 Author Organization [facility] Address [address] [place] [address] Care Team Providers Name Role Phone YobaniNayan Pedro HARRISON Primary Care Provider Manuel Isaacs MD Primary Care Provider Encounter Details Date Type Department Care Team Description 10/24/2019 Lab Requisition [facility] Jamie Jean-Baptiste E ncounter for other Pathology & general examination Laboratory Medicine [address] [place] [address] [address] [place] [address] [place], [place] [address] Social History Tobacco Use Types Packs/Day Years [...] expression of MLH1, PMS2, MSH2 and MSH6 [facility] Addendum Addendum CENTER electronically INTERPRETATION: These [...] 1152 ANTIBODY (CLONE) (BLOCK): RESULT MLH1 (M1, [place]) (block A-3): Retained expression in tumor PMS2 (A16-4, [place]) (block A-3): Retained expression in tumor MSH2 (H050-6902, [place]) (block A-3): Retained expres bettina in tumor MSH6 (SP93, [place]) (block A-3): Retained expression in tumor Internal [...] performance characteristics have been determined by [facility] and/or by the referring laboratory. The positive and negative controls worked appropriately. This laboratory is certified under the Clinical Labor atory Improvement Amendments of 1988 (CLIA-88) as qualified to perform high complexity clinical laboratory testing. Final Diagnosis A. COLON, SIGMOID,MASS, BIOPSY: [facility] Electronically - Invasive adenocarcinoma, moderately differenti ated, colorectal primary CENTER signed by Keyonna, - See comment. LABORATORY Cecilia Morgan MD on SERVICES 10/26/2019 at 16 44 B. COLON, SIGMOID, POLYP, BIOPSY: - Hyperplastic polyp Attestation There was significant [facility] Electr onically resident/fellow CENTER signed by [...] this case to further characterize the lesion. [facility] ANTIBODY(CLONE)(BLOCK):RESULT CENTER CK7 (RN7, Leica) (A3): [...] characteristics have been de termined by [facility] and/or by the referring laboratory. The [...] a separate report. 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 Received in formalin labe lled with proper patient identification (initials H, I) and A. Sigmoid mass Bxs is an aggregate of firm pale pate focally brown tissue (1.4 x 1.3 x 0.3 cm). Entirely submitted in A1-A4. [facility] CENTER B. Received in formalin labe lled with proper patient identification (initials H, I) and B. Sigmoid polyp are three firm pale pate focally pate tissues (0.3 x 0.2 x 0.1 cm to 0.2 x 0.2 x 0.2 cm). Entirely submitted in B1. LABORATORY SERVICES Dharmesh Yousif 10/25/2019 8:37 Resident/Fellow: Reineir Torres MD [facility] LABORATORY SERVICES Scanned Images [facility] LABORAT[facility] SERVICES Specimen Tissue - Colon, Polyp Tissue specimen (specimen) - Colon, Poly p Performing Organization Address City/State/ZIP Code Phon e Number [facility] [address] [place] [address] SERVICES documented in this encounter Visit Diagnoses Diagnosis Encounter for other general examination documented in this encounter Care Teams Metal Roaster Relationship Specialty Start Date End Date Nayan Hilton DO PCP - General 06/17/17 04/01/20 Manuel Isaacs MD PCP - General 04/02/[address] [place] [phone] documented as of this encounter
--- OUTSIDE RECORDS SUMMARY | 2021-12-04 01:41 | XMS_ITS | Encounter Summary ---
:1940 Author Organization [facility] Address [address] [place] [address] Care Team Providers Name Role Phone YobaniNayan Pedro HARRISON Primary Care Provider Manuel Isaacs MD Primary Care Provider Encounter Details Date Type Department Care Team Description 10/24/2019 Lab Requisition [facility] Outr Resulting Lab, Pathology & Laboratory Provider [facility] [address] [place], [place] [address] Social History Tobacco Use Types Packs/Day Years [...] 10:54 EDT) CA 125 17 <30 U/mL [facility] Comment: LABORATORY SERVICES NOTE: Serum CA 125 concentration s hould not be interpreted as absolute evidence for the presence or absence of malignant disease. Assayed on Siemens ADVIA Gladys taur XPT using chemiluminescent technology. ??Values obtained by using different assay methods cannot be used interchangeably. Specimen Blood - Venous blood (substance) Performing Organization Address City/State/[facility] Code Phon e Number [facility] LABORATORY [address] [place] [address] SERVICES documented in this encounter Visit Diagnoses Not on filedocumented in this encounter Care Teams Thermite Welder Relationship Specialty Start Date End Date Nayan Hilton DO PCP - General 06/17/17 04/01/20 Manuel Isaacs MD PCP - General 04/02/[address] [place] [phone] documented as of this encounter
--- OUTSIDE RECORDS SUMMARY | 2021-12-04 01:41 | XMS_ITS | Clinical Summary ---
:1940 Author Organization [facility] Address [address] [place] [address] Care Team Providers Name Role Phone Manuel [...] Problems Problem Noted Date Colon cancer, ascending ([facility]) 11/19/2019 Malignant neoplasm of colon 11/19/2019 Overview: Added automatically from request for juan carlos contreras [id number] Sepsis 09/03/2015 Intra-abdominal infection 09/03/2015 Colon polyp 03/04/2011 Family history of polyps in the colon 03/04/2011 Encounters Date Type Specialty Care Team Description 11/20/2021 Lab Requisition Clinical Laboratory Outr Resulting Lab , Provider 11/06/2021 Lab Requisition Clinical Laboratory Outr Resulting Lab , Provider 10/23/2021 Lab Requisition Clinical Laboratory Outr Resulting [...] Date/Time Associated Diagnosis Comme nts CEA Routine 11/20/2021 8:40 EDT Results for this procedure are i n the results section . CEA Routine 11/06/2021 9:55 EDT Results for this procedure are i n the results section . CEA Routine 10/23/2021 10:47 EDT Results for [...] . from Last 3 Months Results CEA (11/20/2021 8:40 EDT)Only the most recent of6 resultswithin the time period is included. CEA 3.7 See Note [facility] Comment: ng/mL LABORATORY % Distribution [...] Organization Address City/State/ZIP Code Phon e Number [facility] [address] [place] [address] SERVICES from Last 3 Months Insurance Payer Benefit Plan / Subscriber ID Effective Dates Phone Addre ss Type Group MEDICARE MEDICARE A/B [id number] 2007-Present [id number] Medicare [facility] [place] [phone] Joy Armstrong Personal/Family Self 1940 [address] (Home) [place] [address] Joy Armstrong Personal/Family Self 1940 [address] (Home) [place] [address] Joy Armstrong Personal/Family Self 1940 [address] (Home) [place] [address] Joy Armstrong Personal/Family Self 1940 [address] (Home) [place] [address] Joy Armstrong Personal/Family Self 1940 [address] (Home) [place] [address] Joy Armstrong Personal/Family Self 1940 [address] (Home) [facility] [address] Joy Armstrong Personal/Family Self 1940 [address] (Home) [place] [address] Advance Directives For more information, please contact: [phone] Latest Code Status on File Code Status Date Activated Date Inactivated Comments Full Code 09/03/2015 13:11 09/07/2015 15:54 Reason for decision includes: Full code consistent with over all plan of care Who participated in the discussion? Patient Care Teams Welcome Desk Agent Relationship Specialty Start Date End Date Manuel Isaacs MD PCP - General 04/02/[address] [place] [phone]
--- OUTSIDE RECORDS SUMMARY | 2021-12-04 01:41 | XMS_ITS | Encounter Summary ---
:1940 Author Organization [facility] Address [address] [place] [address] Care Team Providers Name Role Phone Manuel Isaacs MD Primary Care Provider Encounter Details Date Type Department Care Team Description 10/23/2021 Lab Requisition [facility] Outr Resulting Lab, Pathology & Laboratory Provider [facility] [address] [place], [place] [id number] Social History Tobacco Use Types Packs/Day Years [...] EDT) CEA 4.4 See Note [facility] Comment: ng/mL LABORATORY % Distribution [...] malignant disease. ?? Assayed on Siemens ADVIA Maritime Broadband taur XPT using chemiluminescent technology. ??Values obtained by different assay methods cannot be used interchangeably. Specimen Blood - Venous blood (substance) Performing Organization Address City/State/ZIP Code Phon e Number [facility] LABORATORY [address] [place] [address] SERVICES documented in this encounter Visit Diagnoses Not on filedocumented in this encounter Care Teams Semi Driver Relationship Specialty Start Date End Date Manuel Isaacs MD PCP - General 04/02/[address] [place] [phone] documented as of this encounter
--- OUTSIDE RECORDS SUMMARY | 2021-12-04 01:41 | XMS_ITS | Encounter Summary ---
:[address] [facility] Address [address] [place] [address] Care Team Providers Name Role Phone Nayan Hilton Primary Care Provider Reason for Visit Reason Onset Date Comments Coordination Of Care 11/22/2019 Encounter Details Date Type Department Care Team Description 11/22/2019 Telephone [facility] Sophie Benson RN Coordination Of Care General Surgery - [id number] [place] [phone] Social History Tobacco Use Types Packs/Day Years [...] on RN line at PCP office in [place]. I have spoken with Mohamud from [facility]. I have relayed Joy's reluctance to accept she might have an ostomy and have asked her to relay this to Dr Isaacs. I have also asked them to help us arrange COVID testing as Joy would like it done in [place]. documented in this encounter Plan of Treatment Not on filedocumented as of this encounter Visit Diagnoses Not on filedocumented in this encounter Care Teams Licensed Insurance Sales Agent Relationship Specialty Start Date End Date Nayan Hilton DO PCP - General 06/17/17 04/01/20 documented as of this encounter
--- OUTSIDE RECORDS SUMMARY | 2021-12-04 01:41 | XMS_ITS | Encounter Summary ---
:1940 Author Organization [facility] Address [address] [place] [address] Care Team Providers Name Role Phone Manuel Isaacs MD Primary Care Provider Encounter Details Date Type Department Care Team Description 06/12/2021 Lab Requisition [facility] Outr Resulting Lab, Pathology & Laboratory Provider [facility] [address] [place], [place] [id number] Social History Tobacco Use Types Packs/Day Years [...] (06/12/2021 8:05 EST) CEA 3.8 See Note [facility] Comment: ng/mL LABORATORY % Distribution of CEA [...] Address City/State/ZIP Code Phon e Number [facility] LABORATORY [address] [place] [address] SERVICES documented in this encounter Visit Diagnoses Not on filedocumented in this encounter Care Teams Roller Coaster Engineer Relationship Specialty Start Date End Date Manuel Isaacs MD PCP - General 04/02/[address] [place] [phone] documented as of this encounter
--- OUTSIDE RECORDS SUMMARY | 2021-12-04 01:41 | XMS_ITS | Encounter Summary ---
:1940 Author Organization [facility] Address [address] [place] [address] Care Team Providers Name Role Phone Manuel Isaacs MD Primary Care Provider Encounter Details Date Type Department Care Team Description 05/26/2021 Lab Requisition [facility] Outr Resulting Lab, Pathology & Laboratory Provider [facility] [address] [place], [place] [id number] Social History Tobacco Use Types Packs/Day Years [...] (05/26/2021 10:10 EST) CEA 3.1 See Note [facility] Comment: ng/mL LABORATORY % Distribution of [...] Organization Address City/State/ZIP Code Phon e Number [facility] LABORATORY [address] [place] [address] SERVICES documented in this encounter Visit Diagnoses Not on filedocumented in this encounter Care Teams Franchise Sales Manager Relationship Specialty Start Date End Date Manuel Isaacs MD PCP - General 04/02/[address] [place] [phone] documented as of this encounter
--- OUTSIDE RECORDS SUMMARY | 2021-12-04 01:41 | XMS_ITS | Encounter Summary ---
:1940 Author Organization [facility] Address [address] [place] [address] Care Team Providers Name Role Phone Jodi Camp MD Primary Care Provider Reason for Visit Reason Onset Date Comments Procedure 10/20/2015 schedule echo Follow-up 10/27/2015 Appt /follow up Encounter Details Date Type Department Care Team Description 10/20/2015 Telephone [facility] Juhi Moncada RN Proc edure (schedule Cardiology - Amber echo); Follow-up (Appt [address] /follow up) [place] [phone] Social History Tobacco Use Types Packs/Day Years [...] Pt calling back states dr. Casey @ [facility] next availble 12/18/15, so would prefer sooner [...] on filedocumented in this encounter Care Teams Program Services Planner Relationship Specialty Start Date End Date Jodi Camp MD PCP - General 09/03/15 12/22/[address] [address] documented as of this encounter
--- OUTSIDE RECORDS SUMMARY | 2021-12-04 01:41 | XMS_ITS | Encounter Summary ---
:1940 Author Organization [facility] Address [address] [place] [address] Care Team Providers Name Role Phone Manuel Isaacs MD Primary Care Provider Encounter Details Date Type Department Care Team Description 08/07/2021 Lab Requisition [facility] Outr Resulting Lab, Pathology & Laboratory Provider [facility] [address] [place] [address] Social History Tobacco Use Types [...] (08/07/2021 10:25 EDT) CEA 5.1 See Note [facility] Comment: ng/mL LABORATORY % Distribution of CEA [...] malignant disease. ?? Assayed on Siemens ADVIA Trly Uniq taur XPT using chemiluminescent technology. ??Values obtained by different assay methods cannot be used interchangeably. Specimen Blood - Venous blood (substance) Performing Organization Address City/State/ZIP Code Phon e Number [facility] LABORATORY [address] [place] [address] SERVICES documented in this encounter Visit Diagnoses Not on filedocumented in this encounter Care Teams Project Control Manager Relationship Specialty Start Date End Date Manuel Isaacs MD PCP - General 04/02/[address] [place] [phone] documented as of this encounter
--- OUTSIDE RECORDS SUMMARY | 2021-12-04 01:41 | XMS_ITS | Encounter Summary ---
:1940 Author Organization [facility] Address [address] [place] [address] Care Team Providers Name Role Phone Nayan Hilton DO Primary Care Provider Reason for Visit (Routine) - Receiving Office to Obtain Authorization Specialty Diagnoses / Procedures Referred By Contact Refer red To Contact Procedures Unknown, Provider, US OUTSIDE IMAGES BODY Phone: Referral ID Status Reason Start Expiration Visits Visits Date Date Requested Authorized [id number] Receiving Office 11/07/2019 1 1 to Obtain Authorization Encounter Details Date Type Department Care Team Description 10/23/2019 Hospital Encounter [facility] Radiology - Main [place] [address] [place] [address] Social History Tobacco Use Types Packs/Day Years [...] filedocumented in this encounter Care Teams Director Of Player Personnel Relationship Specialty Start Date End Date Nayan Hilton DO PCP - General 06/17/17 04/01/20 documented as of this encounter
--- OUTSIDE RECORDS SUMMARY | 2021-12-04 01:41 | XMS_ITS | Encounter Summary ---
:1940 Author Organization [facility] Address [address] [place] [address] Care Team Providers Name Role Phone Dacia Hendrix MD Primary Care Provider [phone] Reason for Referral MIXER OPERATOR (Other (Specify in Question)) - Closed Specialty Diagnoses / Procedures Referred By Contact Refer red To Contact Diagnoses Adnexal cyst Fluid in endometrial cavity Shantelle Ureña MD Procedures SENIOR TECHNICAL PROGRAM MANAGER US PELVIS TRANSVAGINAL [address] [place] [address] 4 [place] [phone] Referral ID Status Reason Start Date Expiration Date Visits Requ ested Visits Authorized [id number] Closed 12/23/2015 1 1 Reason for Visit Reason Comments Advice Only possible adnexal mass/cyst Encounter Details Date Type Department Care Team Description 12/23/2015 Initial consult [facility] Shantelle Ureña exal cyst (Primary Dx); Women's Services - MD Claudine Fluid in endometrial cavity [facility] [address] [place] [address] (Wo rk) Social History Tobacco [...] her sepsis, however she was transferred from [facility] to [facility] for ICU care requiring pressors and IV antibiotics. She recovered with those treatments and was subsequently discharged home without ever identifying the etiology of her sepsis. In follow- up, her PCP obtained a electrical assembler U/S at [facility] to evaluate the adnexal mass which again noted the mass but was unable to identify the source (hydrosalpinx vs ovarian cystic mass vs GI stricture) and she was subsequently referred back to [facility] for another U/S and consult with Gynecology. Overall, the patient reports that she feels quite well and has recovered from her hospitalization inJune. She has no specific complaints at this time and denies any fevers/chills, chest pain, respiratory symptoms, abdominal pain, N/V, changes in bowel/bladder function, vaginal discharge, vaginal bleed ing/spotting, pelvic pain or other complaints. Derrick Boat Runner History: OB History Para Term AB TAB [...] file Social History Narrative Review of Systems SENIOR TECHNICAL PROGRAM MANAGER ROS Complete: negative Agency Sales Management Assistant Objective: Visit Vitals ??? BP 102/84 (BP [...] back in 6 months time for a SENIOR TECHNICAL PROGRAM MANAGER ultrasound which I have taken the liberty of ordering and will follow-up with those results at that time. All questions answered. Time Spent Counseling Patient: I spent 45 minutes with patient greater than 50% which was counseling. Shantelle Ureña MD documented in this encounter Plan of Treatment Not on filedocumented as of this encounter Procedures Procedure Name Priority Date/Time Associated Diagnosis Comme nts SENIOR TECHNICAL PROGRAM MANAGER US PELVIS Routine 06/21/2016 9:18 Adnexal cyst Results for this TRANSVAGINAL EDT Fluid in endometrial procedu re are in cavity the results section. documented in this encounter Results SENIOR TECHNICAL PROGRAM MANAGER US PELVIS TRANSVAGINAL (06/21/2016 9:18 EDT) Anatomical Region Laterality Modality Other Specimen Narrative [facility] RADIOLOGY MATERNAL FE CONOR MEDICINE ACC [...] normal. No free fluid visualized . Impression Transvaginal(34704) and Transabdominal L imited (53506)pelvic US 1. Uterus with normal appearing myometri [...] normal. No free fluid visualized . Impression Transvaginal(32591) and Transabdominal L imited (89272)pelvic US 1. Uterus with normal appearing myometri [...] pursue any further testing at this ti nv. Discussed possibility of endometrial biopsy, Ca-125 as [...] Organization Address City/State/ZIP Code Phon e Number [facility] RADIOLOGY MATERNAL MEDICINE ACC documented [...] documented as of this encounter Care Teams Road Worker Relationship Specialty Start Date End Date Dacia Hendrix MD PCP - General 12/23/15 06/16/17 [address] [place] [address] documented as of this encounter
--- OUTSIDE RECORDS SUMMARY | 2021-12-04 01:41 | XMS_ITS | Encounter Summary ---
:1940 Author Organization [facility] Address [address] [place] [address] Care Team Providers Name Role Phone YobaniNayan Pedro HARRISON Primary Care Provider Manuel Isaacs MD Primary Care Provider Encounter Details Date Type Department Care Team Description 10/16/2019 Lab Requisition [facility] Dank Arciniega Ot her specified Pathology & MD disorders of bladder Laboratory Medicine [address] [place] [address] [address] [place], [place] [phone] [place] [phone] Social History Tobacco Use Types Packs/Day Years [...] Priority Date/Time Associated Diagnosis Comme nts NON TECHNICAL SALES CONSULTANT/FNA Today 10/16/2019 11:09 Results for this CYTOLOGY EDT procedure are i n the results section. documented in this encounter Results NON TECHNICAL SALES CONSULTANT/FNA CYTOLOGY (10/16/2019 11:09 EDT) Final Diagnosis URINE, BARBOTAGE, CYTOLOGIC EVALUATION: [facility] Electronically - Atypical urothelial cells. See comment. CENTER signed by FLOYD Luciano MD on SERVICES 10/17/2019 at 15 28 Attestation There was significant reside nt/fellow involvement in the diagnostic evaluation of this case. [facility] Electronically By the signature below, the attending physician certifies that they have personally conducted a gross and/or microscopic CENTER signed by Mustapha, examination of the described specimens and rendered or confirmed the above diagnosis. LABORATORY Alona Waggoner MD on SERVICES 10/17/2019 at 15 28 Diagnosis Comment Cytologic evaluation [facility] reveals several CENTER groups of atypical LABORATORY [...] advised. Clinical History N32.89 - Mass of [facility] urinary bladder. 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 [facility] LABORATORY SERVICES Resident/Fellow: Marcus Serrano DO [facility] LABORAT[facility] SERVICES Scanned Images [facility] LABORAT[facility] SERVICES Specimen [id number] - Urine specimen (specimen) Performing Organization Address City/State/ZIP Code Phon e Number [facility]OR[facility] [address] [place] [address] SERVICES documented in this encounter Visit Diagnoses Diagnosis Other specified disorders of bladder documented in this encounter Care Teams Pulp Bleacher Relationship Specialty Start Date End Date Nayan Hilton DO PCP - General 06/17/17 04/01/20 Manuel Isaacs MD PCP - General 04/02/[address] [place] [phone] documented as of this encounter
--- OUTSIDE RECORDS SUMMARY | 2021-12-04 01:41 | XMS_ITS | Encounter Summary ---
:1940 Author Organization [facility] Address [address] [place] [address] Care Team Providers Name Role Phone Nayan iHlton DO Primary Care Provider Encounter Details Date [...] on filedocumented in this encounter Care Teams Cellular Phone Repairer Relationship Specialty Start Date End Date Nayan Hilton DO PCP - General 06/17/17 04/01/20 documented as of this encounter
--- OUTSIDE RECORDS SUMMARY | 2021-12-04 01:41 | XMS_ITS | Encounter Summary ---
:1940 Author Organization [facility] Address [address] [place] [address] Care Team Providers Name Role Phone YobaniNayan Pedro HARRISON Primary Care Provider Manuel Isaacs MD Primary Care Provider Encounter Details Date Type Department Care Team Description 10/26/2019 Lab Requisition [facility] Outr Resulting Lab, Pathology & Laboratory Provider [facility] [address] [place], [place] [address] Social History Tobacco Use Types Packs/Day Years [...] (10/26/2019 8:16 EDT) CEA 1.[address] [facility] Comment: ng/mL LABORATORY % Distribution of [...] Address City/State/ZIP Code Phon e Number [facility] LABORATORY [address] [place] [address] SERVICES documented in this encounter Visit Diagnoses Not on filedocumented in this encounter Care Teams Granite Fabricator Relationship Specialty Start Date End Date Nayan Hilton DO PCP - General 06/17/17 04/01/20 Manuel Isaacs MD PCP - General 04/02/[address] [place] [phone] documented as of this encounter
--- OUTSIDE RECORDS SUMMARY | 2021-12-04 01:41 | XMS_ITS | Encounter Summary ---
:1940 Author Organization [facility] Address [address] [place] [address] Care Team Providers Name Role Phone Manuel Isaacs MD Primary Care Provider Encounter Details Date Type Department Care Team Description 02/18/2021 Lab Requisition [facility] Jamie Jean-Baptiste E ncounter for other Pathology & MD general examination Laboratory Medicine [address] [place] [address] [address] [place] [address] [place], [place] [phone] Social History Tobacco Use Types Packs/Day Years [...] 8:57 EST) Note to Patient The following [facility] MEDICAL pathology results have CENTER been interpreted by LABORATORY your pathologist and SERVICES may be available to you before your health provider has had the opportunity to review them. Please allow time for your provider to receive these results and explore management options, if applicable. Final Diagnosis A. 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 CENTER - See comment. LABORATORY SERVICES Diagnosis Comment Immunoperoxidase stains were performed on this case to further characterize the lesion. [facility] ANTIBODY(CLONE)(BLOCK):RESULT LABORATORY CDX-2 (EP25, Leica) (A1): [...] characteristics have been de termined by [facility] and/or by the referring laboratory. The [...] to perform high complexity clinical laboratory testing. Gas Or Petroleum Operator slides of thi s case were reviewed at the gastrointestinal/liver intradepartmental consultation conference. (RW) Attestation There was significant [facility] MEDICAL Electr onically resident/fellow CENTER signed by Ab ileana Cassidy involvement in the LABORATORY Merrill Renee on diagnostic evaluation SERVICES 2020 at 0938 of this case. By the signature below, the attending physician certifies that they have personally conducted a gross and/or microscopic examination of the described specimens and rendered or confirmed the above diagnosis. Intraoperative A. [facility] MEDICAL Consultation OMENTAL MASS, UNORIENTED EXCISION (SPA1): CENTER - Positive for malignancy. Adenocarcinoma. LABORATORY - Diagnosis of malignancy te lephoned to Dr. Jean-Baptiste in [place] 1 (x301) at 9:25 AM on 02/18/2021. Dr. Ifeanyi Jain 02/18/2021 SERVICES Clinical History Omental mass [facility] LABORATORY SERVICES Gross Description A. [facility] Received fresh labelled with proper patient identification (initials H, I) and omental mass is an unoriented 2.0 x 2.0 x 1.0 cm ovoid yellow-pate fibrofatty tissue with palpable consolidation. The [facility] CENTER ins are inked. The tissue is bisected to show a solid pate mass (0.8 cm in greatest dimension) with ill-defined borders from the surrounding fat. A market survey representative section was frozen; however unable to pe [facility] frozen section due to technical issue with the cryostat (build up of ice, unable to advance/retract specimen). Therefore, scrape/smear slide was prepared and stained with Diff-Quik with the [facility] SERVICES retation as rendered above. The majority of the specimen is submitted in A1-A4 with the section that was frozen in A1. [place](ASCP) 02/19/2021 9:54 Resident/Fellow: Sheela Reyna, [facility] LABORATORY SERVICES Performing Lab [facility] LAB [facility] LABORATORY SERVICES Scanned Images [facility] LABORATORY SERVICES Specimen Tissue - Soft tissue (navigational jose angel pt) Performing Organization Address City/State/ZIP Code Phon e Number [facility] LABORATORY [address] [place] [address] SERVICES documented in this encounter Visit Diagnoses Diagnosis Encounter for other general examination documented in this encounter Care Teams Steward/Stewardess Lounge Relationship Specialty Start Date End Date Manuel Isaacs MD PCP - General 04/02/[address] [place] [phone] documented as of this encounter
--- OUTSIDE RECORDS SUMMARY | 2021-12-04 01:41 | XMS_ITS | Encounter Summary ---
:1940 Author Organization [facility] Address [address] [place] [address] Care Team Providers Name Role Phone Dacia Hendrix MD Primary Care Provider [phone] Encounter Details Date Type Department Care Team Description 06/21/2016 Hospital Encounter [facility] - Adele Ureña [facility] MD Claudine [phone] [address] [facility], Level [address] [place] [address] (Wo rk) Social History Tobacco [...] Code Departure Means Destination Home or Self Long Term documented in this encounter Plan of Treatment Not on filedocumented as of this encounter Visit Diagnoses Not on filedocumented in this encounter Care Teams Automotive Electrician Helper Relationship Specialty Start Date End Date aDcia Hendrix MD PCP - General 12/23/15 06/16/[address] [place] [phone] documented as of this encounter
--- OUTSIDE RECORDS SUMMARY | 2021-12-04 01:41 | XMS_ITS | Encounter Summary ---
:1940 Author Organization Address [address] [place] [address] Care Team Providers Name Role Phone Nayan Hilton DO Primary Care Provider Reason for Visit (Routine) - Receiving Office to Obtain Authorization Specialty Diagnoses / Procedures Referred By Contact Refer red To Contact Procedures Unknown, Provider, MR OUTSIDE IMAGES MSK Phone: Referral ID Status Reason Start Expiration Visits Visits Date Date Requested Authorized [id number] Receiving Office 11/07/2019 1 1 to Obtain Authorization Encounter Details Date Type Department Care Team Description 10/29/2019 Hospital Encounter [facility] Radiology - Main [place] [address] [place] [address] Social History Tobacco Use Types Packs/Day Years [...] on filedocumented in this encounter Care Teams Visual Supervisor Relationship Specialty Start Date End Date Nayan Hilton DO PCP - General 06/17/17 04/01/20 documented as of this encounter
--- OUTSIDE RECORDS SUMMARY | 2021-12-04 01:41 | XMS_ITS | Encounter Summary ---
:1940 Author Organization [facility] Address [address] [place] [address] Care Team Providers Name Role Phone YobaniNayan Pedro HARRISON Primary Care Provider Manuel Isaacs MD Primary Care Provider Encounter Details Date Type Department Care Team Description 12/20/2019 Lab Requisition [facility] Outr Resulting Lab, Pathology & Laboratory Provider [facility] [address] [place], [place] [id number] Social History Tobacco Use Types Packs/Day Years [...] Prealbumin 19 (L) 20 - 40 mg/dL [facility] LABORATO RY SERVICES Specimen Blood - Venous blood (substance) Performing Organization Address City/State/ZIP Code Phon e Number [facility] LABORATORY [address] [place] [address] SERVICES documented in this encounter Visit Diagnoses Not on filedocumented in this encounter Care Teams Wash Barrel Leader Relationship Specialty Start Date End Date Nayan Hilton DO PCP - General 06/17/17 04/01/20 Manuel Isaacs MD PCP - General 04/02/[address] [place] [phone] documented as of this encounter
--- OUTSIDE RECORDS SUMMARY | 2021-12-04 01:41 | XMS_ITS | Encounter Summary ---
:1940 Author Organization [facility] Address [address] [place] [address] Care Team Providers Name Role Phone Nayan Hilton DO Primary Care Provider Reason for Visit (Routine) - Receiving Office to Obtain Authorization Specialty Diagnoses / Procedures Referred By Contact Refer red To Contact Procedures Unknown, Provider, CT OUTSIDE IMAGES BODY Phone: Referral ID Status Reason Start Expiration Visits Visits Date Date Requested Authorized [id number] Receiving Office 11/07/2019 1 1 to Obtain Authorization Encounter Details Date Type Department Care Team Description 10/03/2019 Hospital Encounter [facility] Radiology - Main [place] [address] [place] [address] Social History Tobacco Use Types Packs/Day Years [...] on filedocumented in this encounter Care Teams Range Aide Relationship Specialty Start Date End Date Nayan Hilton DO PCP - General 06/17/17 04/01/20 documented as of this encounter
--- OUTSIDE RECORDS SUMMARY | 2021-12-04 01:41 | XMS_ITS | Encounter Summary ---
:1940 Author Organization [facility] Address [address] [place] [address] Care Team Providers Name Role Phone Manuel Isaacs MD Primary Care Provider Encounter Details Date Type Department Care Team Description 08/21/2021 Lab Requisition [facility] Outr Resulting Lab, Pathology & Laboratory Provider [facility] [address] [place] [address] Social History Tobacco Use Types [...] (08/21/2021 9:30 EDT) CEA 4.3 See Note [facility] Comment: ng/mL LABORATORY % Distribution [...] malignant disease. ?? Assayed on Siemens [employer]VIA [employer] taur XPT using chemiluminescent technology. ??Values obtained by different assay methods cannot be used interchangeably. Specimen Blood - Venous blood (substance) Performing Organization Address City/State/ZIP Code Phon e Number [facility] LABORATORY [address] [place] [address] SERVICES documented in this encounter Visit Diagnoses Not on filedocumented in this encounter Care Teams Operater Relationship Specialty Start Date End Date Manuel Isaacs MD PCP - General 04/02/[address] [place] [phone] documented as of this encounter
--- OUTSIDE RECORDS SUMMARY | 2021-12-04 01:41 | XMS_ITS | Encounter Summary ---
:1940 Author Organization [facility] Address [address] [place] [address] Care Team Providers Name Role Phone Manuel Isaacs MD Primary Care Provider Encounter Details Date Type Department Care Team Description 10/09/2021 Lab Requisition [facility] Outr Resulting Lab, Pathology & Laboratory Provider [facility] [address], [place] [id number] Social History Tobacco Use Types Packs/Day Years [...] (10/09/2021 8:12 EDT) CEA 4.0 See Note [facility] Comment: ng/mL LABORATORY % Distribution of [...] malignant disease. ?? Assayed on Siemens ADVIA [facility] taur XPT using chemiluminescent technology. ??Values obtained by different assay methods cannot be used interchangeably. Specimen Blood - Venous blood (substance) Performing Organization Address City/State/ZIP Code Phon e Number [facility]OR[facility]ORY [address] [place] [address] SERVICES documented in this encounter Visit Diagnoses Not on filedocumented in this encounter Care Teams Tube Machine Operator Relationship Specialty Start Date End Date Manuel Isaacs MD PCP - General 04/02/[address] [place] [phone] documented as of this encounter
--- OUTSIDE RECORDS SUMMARY | 2021-12-04 01:41 | XMS_ITS | Encounter Summary ---
:1940 Author Organization [facility] Address [address] [place] [address] Care Team Providers Name Role Phone YobaniNayan Pedro HARRISON Primary Care Provider Manuel Isaacs MD Primary Care Provider Encounter Details Date Type Department Care Team Description 10/19/2019 Lab Requisition [facility] Outr Resulting Lab, Pathology & Laboratory Provider [facility] [address] [place], [place] [id number] Social History Tobacco Use Types Packs/Day Years [...] EDT) COVID-19 rt-PCR NEGATIVE Negative [facility] Result Comment: LABORATORY 2019-novel Coronavirus (2019 -nCoV) [...] City/State/ZIP Code Phon e Number [facility] LABORATORY [facility] LABORATORY [place] COVID-19 TESTING (10/19/2019 11:54 EDT) COVID-19 rt-PCR NEGATIVE Negative [facility] Result Comment: LABORATORY 2019-novel Coronavirus (2019 -nCoV) [...] obtained via nasopharyngeal or oropharyngeal swabs in [facility], UTM, M4, M5, M6, saline, and MTM [...] Administration's Emergency Use Authorization. Performing Lab [facility] LABORATORY SERVICES Specimen Swab Performing Organization Address City/State/ZIP Code Phon e Number [facility] [address] [place] [address] SERVICES [facility] LABOR[facility]ORY [place], [place] documented in this encounter Visit Diagnoses Not on filedocumented in this encounter Care Teams Issuer Relationship Specialty Start Date End Date Nayan Hilton DO PCP - General 06/17/17 04/01/20 Manuel Isaacs MD PCP - General 04/02/[address] [place] [phone] documented as of this encounter
--- OUTSIDE RECORDS SUMMARY | 2021-12-04 01:41 | XMS_ITS | Encounter Summary ---
:1940 Author Organization [facility] Address [address] [place] [address] Care Team Providers Name Role Phone Nyaan Hilton DO Primary Care Provider Reason for Visit Reason Onset Date Comments Orders (Non Pre-visit) 11/19/2019 Encounter Details Date Type Department Care Team Description 11/19/2019 Orders Only [facility] Mehdi Kapadia MD Pre-op testing Urology - [address] (Primary Dx) [address] [place], [place] [id number] [place] [address] [place], [address] [place] [phone] (Wo rk) Social History Tobacco Use Types [...] unspecified documented in this encounter Care Teams Protection Consultant Relationship Specialty Start Date End Date Nayan Hilton, PCP - General 06/17/17 04/01/20 documented as of this encounter
--- OUTSIDE RECORDS SUMMARY | 2021-12-04 01:41 | XMS_ITS | Encounter Summary ---
:1940 Author Organization [facility] Address [address] [place] [address] Care Team Providers Name Role Phone Dacia Hendrix MD Primary Care Provider [phone] Reason for Referral TELEHEALTH CASE MANAGER (Routine) - Closed Specialty Diagnoses / Procedures Referred By Contact Refer red To Contact Diagnoses Adnexal cyst Fluid in endometrial cavity Shantelle Ureña MD Procedures STRADDLE CARRIER OPERATOR US PELVIS TRANSVAGINAL [address] [place] [phone] Referral ID Status Reason Start Date Expiration Date Visits Requ ested Visits Authorized [id number] Closed 06/21/2016 1 1 Encounter Details Date Type Department Care Team Description 06/21/2016 Orders Only [facility] Shantelle Ureña Adnexa l cyst (Primary Dx); Women's Services - MD Claudine Fluid in endometrial cavity [facility] [address] [place] [address] [place], [place] [phone] [place] [address] [phone] (Wo rk) Social History Tobacco [...] Name Priority Date/Time Associated Diagnosis Comme nts STRADDLE CARRIER OPERATOR US PELVIS Routine 06/20/2017 9:07 Adnexal cyst Results for this TRANSVAGINAL EDT Fluid in endometrial procedu re are in cavity the results section. documented in this encounter Results STRADDLE CARRIER OPERATOR US PELVIS TRANSVAGINAL (06/20/2017 9:07 EDT) Anatomical Region Laterality Modality Other Specimen Narrative [facility] RADIOLOGY MATERNAL FE CONOR MEDICINE ACC [...] free fluid visualized . Impression Transvaginal Pelvic [id number] 1. Stable intracavitary fluid with thin endometrium [...] free fluid visualized . Impression Transvaginal Pelvic [id number] 1. Stable intracavitary fluid with thin endometrium [...] City/State/ZIP Code Phon e Number [facility] RADIOLOGY MATERNAL MEDICINE ACC documented in this encounter Visit Diagnoses Diagnosis Adnexal cyst - Primary Other specified symptom associated with female genital organs Fluid in endometrial cavity Other specified disorders of uterus, not elsewhere classified documented in this encounter Care Teams Machine Feeder Raw Stock Relationship Specialty Start Date End Date Dacia Hendrix MD PCP - General 12/23/15 06/16/17 [address] [place] [address] documented as of this encounter
--- OUTSIDE RECORDS SUMMARY | 2021-12-04 01:41 | XMS_ITS | Encounter Summary ---
:1940 Author Organization [facility] Address [address] [place] [address] Care Team Providers Name Role Phone Manuel Isaacs MD Primary Care Provider Encounter Details Date Type Department Care Team Description 04/02/2020 Results Only Imaging [facility] - Alexy Cherry, [facility] Radiology Resul ts [address] [facility] [address] [place] [address] [place], [place] [address] Social History Tobacco Use Types Packs/Day Years [...] THIGH (04/02/2020 9:39 EST) Specimen Narrative [facility] RADIOLOGY - 04/02/2020 9:39 EST ? EXAM: PET/CT SCAN/PET/CT SKULL BASE TO MO EX. D/ (0755) ? CLINICAL INFORMATION: ? C18.9 COLON CANCER ? STAGING ? PET/CT SKULL BASE TO MID-THIGH ? Signs and Symptoms/Comments: ??C1 8.9 COLON CANCER, STAGING. Per ? patient, history of colon surgery in 2019. ? Comparison: Outside CT chest abdo men pelvis on 01/23/2020 and ? 10/30/2019 (from [facility]). ? Technique: 90 minutes following t he IV injection of 16.2 mCi of ? S71-frhrypfysivectbkex, PET imagi ng was performed from the [...] evidence o f osseous metastatic disease. ? Lockstitch Lining Setter measurements as fo llows: ? * ??Background [...] CC: ? Transcribed Date/Time: 04/02/2020 (0939) ? Wait Staff: ? Printed Date/Time: 04/02/2020 (09 39) ? PAGE 3 ? Juliette d Report ? Procedure Note Bashir Tran MD - 04/02/2020 EXAM: PET/CT SCAN/PET/CT SKULL BASE TO MO EX. D/ (0755) CLINICAL INFORMATION: C18.9 COLON CANCER STAGING PET/CT SKULL BASE TO MID-THIGH Signs and Symptoms/Comments: C18.9 COLO N CANCER, STAGING. Per patient, history of colon surgery in . Comparison: Outside CT chest abdomen pe lvis on 01/23/2020 and 10/30/[address] ([address] [facility]) . Technique: 90 minutes following the IV injection of 16.2 mCi of F55-lvdmtyreebornkkwca, PET imaging was performed from the skull [...] PET evidence of osse ous metastatic disease. Lockstitch Lining Setter measurements as follows: * Background liver uptake: [...] Bashir Tran MD CC: Transcribed Date/Time: 04/02/2020 (9946 ) Wait Staff: Printed Date/Time: 04/02/2020 (0937) PAGE 3 Signed Report Performing Organization Address City/State/ZIP Code Phon e Number [facility] RADIOLOGY documented in this encounter Visit Diagnoses Not on filedocumented in this encounter Care Teams Shift Boss Relationship Specialty Start Date End Date Manuel Isaacs MD PCP - General 04/02/[address] [place] [phone] documented as of this encounter
--- OUTSIDE RECORDS SUMMARY | 2021-12-04 01:41 | XMS_ITS | Encounter Summary ---
:1940 Author Organization [facility] Address [address] [place] [address] Care Team Providers Name Role Phone Jodi Camp MD Primary Care Provider Reason for Visit Reason Onset Date Comments Appointment Related 09/29/2015 Encounter Details Date Type Department Care Team Description 09/29/2015 Telephone [facility] Acute Cami Drake R N Appointment Related Care Surgery - [address] [place] [address] [place] [address] Social History Tobacco Use Types [...] Encounter - Cami Drake RN - 09/29/2015 2741 EDT Spoke to patient and scheduled follow-up appointment regarding perforated appendicitis. Appointment scheduled for October 07, 2015 at 9 am and she is aware of location. documented in this encounter Plan of Treatment Not on filedocumented as of this encounter Visit Diagnoses Not on filedocumented in this encounter Care Teams Contractor Buyer Relationship Specialty Start Date End Date Jodi Camp MD PCP - General 09/03/15 12/22/[address] [address] documented as of this encounter
--- OUTSIDE RECORDS SUMMARY | 2021-12-04 01:41 | XMS_ITS | Encounter Summary ---
:[address] [facility] Address [address] [place] [address] Care Team Providers Name Role Phone Nayan Hilton Primary Care Provider Reason for Visit Reason Onset Date Comments Other 11/20/2019 Encounter Details Date Type Department Care Team Description 11/20/2019 Telephone [facility] Valerie Sams MD Other Surgery - [facility] [address] [address] [address], [place] [address] (Wo rk) Social History Tobacco Use Types [...] encounter Miscellaneous Notes Telephone Encounter - Sophie Benson RN - 11/20/2019 1309 EDT Joy is calling as she does not want an ostomy. Asking if she can speak with Dr Zamora and would like to have COVID testing done in [place]. 11/20: I have spoken again with Joy. I have tried to explain that an ostomy is the best option in regards to her surgery. I did advise her she was welcome to persue a second opinion perhaps at [facility] She is upset, crying, still does not understand the complexity of her surgery. I have asked her totake a couple of days and talk it over with her and call me back with a decision. I will also reach out to Dr Isaacs's office for their help coordinating COVID testing at [facility] if she agress to proceed with surgery and to help support Joy with her decision. elephone Encounter - Jennifer Arias - 11/20/2019 1150 EDT Pt calling with questions for the nurse/ please return call documented in this encounter Plan of Treatment Not on filedocumented as of this encounter Visit Diagnoses Not on filedocumented in this encounter Care Teams Naval Aircrewman Mechanical Relationship Specialty Start Date End Date Nayan Hilton DO PCP - General 06/17/17 04/01/20 documented as of this encounter
--- OUTSIDE RECORDS SUMMARY | 2021-12-04 01:41 | XMS_ITS | Encounter Summary ---
:1940 Author Organization [facility] Address [address] [place] [address] Care Team Providers Name Role Phone Nayan Hilton Primary Care Provider Reason for Visit Reason Comments Ultrasound Encounter Details Date Type Department Care Team Description 06/20/2017 Initial consult [facility] Shantelle Ureña Flu id in endometrial cavity (Primary Dx); Women's Services - MD Claudine Adnexal mass [facility] [id number] [place], [place] [address], [place] [address] (Wo rk) Social History Tobacco [...] organs documented in this encounter Care Teams Intermediate Manager Relationship Specialty Start Date End Date Nayan Hilton DO PCP - General 06/17/17 04/01/20 documented as of this encounter
--- OUTSIDE RECORDS SUMMARY | 2021-12-04 01:41 | XMS_ITS | Encounter Summary ---
:1940 Author Organization [facility] Address [address] [place] [address] Care Team Providers Name Role Phone Manuel Isaacs MD Primary Care Provider Encounter Details Date Type Department Care Team Description 11/20/[address] [facility] Outr Resulting Lab, Pathology & Laboratory Provider [facility] [address] [place], [place] [phone] Social History Tobacco Use Types Packs/Day Years [...] . documented in this encounter Results CEA (11/20/2021 8:40 EDT) CEA 3.7 See Note [facility] Comment: ng/mL LABORATORY % Distribution of [...] malignant disease. ?? Assayed on Siemens ADVIA [employer] taur XPT using chemiluminescent technology. ??Values obtained by different assay methods cannot be used interchangeably. Specimen Blood - Venous blood (substance) Performing Organization Address City/State/ZIP Code Phon e Number [facility] LABORATORY [address] [place] [address] SERVICES documented in this encounter Visit Diagnoses Not on filedocumented in this encounter Care Teams Foundation Assistant Relationship Specialty Start Date End Date Manuel Isaacs MD PCP - General 04/02/[address] [place] [phone] documented as of this encounter
--- OUTSIDE RECORDS SUMMARY | 2021-12-04 01:41 | XMS_ITS | Encounter Summary ---
:1940 Author Organization [facility] Address [address] [place] [address] Care Team Providers Name Role Phone Manuel Isaacs MD Primary Care Provider Encounter Details Date Type Department Care Team Description 07/24/2021 Lab Requisition [facility] Outr Resulting Lab, Pathology & Laboratory Provider [facility] [address] [place], [place] [phone] Social History Tobacco Use Types Packs/Day Years [...] (07/24/2021 8:30 EDT) CEA 4.2 See Note [facility] Comment: ng/mL LABORATORY % Distribution [...] malignant disease. ?? Assayed on Siemens ADVIA [employer] taur XPT using chemiluminescent technology. ??Values obtained by different assay methods cannot be used interchangeably. Specimen Blood - Venous blood (substance) Performing Organization Address City/State/ZIP Code Phon e Number [facility] LABORATORY [address] [place] [address] SERVICES documented in this encounter Visit Diagnoses Not on filedocumented in this encounter Care Teams Appian Developer Relationship Specialty Start Date End Date Manuel Isaacs MD PCP - General 04/02/[address] [place] [phone] documented as of this encounter
--- OUTSIDE RECORDS SUMMARY | 2021-12-04 01:41 | XMS_ITS | Encounter Summary ---
:1940 Author Organization [facility] Address [address] [place] [address] Care Team Providers Name Role Phone Jodi Camp MD Primary Care Provider Encounter Details Date Type Department Care Team Description 12/03/2015 Results Only [facility]- Erica Hendrix MD [phone] [address] [place] [address] (Wo rk) Social History Tobacco Use Types [...] Anatomical Region Laterality Modality Other Specimen Narrative [facility] RADIOLOGY ACC/MAIN CA MPUS - 12/23/2015 14:14 [...] Organization Address City/State/ZIP Code Phon e Number [facility] RADIOLOGY ACC/MAIN CAMPUS documented in this encounter Visit Diagnoses Not on filedocumented in this encounter Care Teams Campus Chaplain Relationship Specialty Start Date End Date Jodi Camp MD PCP - General 09/03/15 12/22/[address] [address] documented as of this encounter
--- OUTSIDE RECORDS SUMMARY | 2021-12-04 01:41 | XMS_ITS | Encounter Summary ---
:1940 Author Organization [facility] Address [address] [place] [address] Care Team Providers Name Role Phone Dacia Hendrix MD Primary Care Provider [phone] Encounter Details Date Type Department Care Team Description 12/23/2015 Results Only [facility] PRISM MD Dacia [phone] [address] [place], [place] [phone] (Wo rk) Social History Tobacco Use Types [...] on filedocumented in this encounter Care Teams Miner Helper Relationship Specialty Start Date End Date Dacia Hendrix MD PCP - General 12/23/15 06/16/17 [address] [place] [address] documented as of this encounter
--- OUTSIDE RECORDS SUMMARY | 2021-12-04 01:41 | XMS_ITS | Encounter Summary ---
:[address] [facility] Address [address] [place] [address] Care Team Providers Name Role Phone Manuel Isaacs MD Primary Care Provider Encounter Details Date Type Department Care Team Description 12/24/2020 Lab Requisition [facility] Dixon Urena Enc ounter for other Pathology & MD general examination Laboratory Medicine - [address] [place] [address] [address] [facility] [address] [place], [place] [phone] Social History Tobacco Use Types Packs/Day Years [...] Priority Date/Time Associated Diagnosis Comme nts NON HOSPITALIST NOCTURNIST PHYSICIAN/FNA Today 12/24/2020 10:45 Results for this CYTOLOGY EDT procedure are i n the results section. documented in this encounter Results NON HOSPITALIST NOCTURNIST PHYSICIAN/FNA CYTOLOGY (12/24/2020 10:45 EDT) Note to Patient The following [facility] pathology results have CENTER been interpreted by LABORATORY your pathologist and SERVICES may be available to you before your health provider has had the opportunity to review them. Please allow time for your provider to receive these results and explore management options, if applicable. Final Diagnosis A. 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 See comment. [facility] Diagnosis Comment The aspirate smears are cell ular and show crowded sheets of malignant glandular cells with nuclear crowding and nuclear membrane irregularity. Although the SATB2 stain would be expected to be positive i [facility] n colo-rectal carcinomas, a small percent of cases have been reported to be negative. Clinical and radiographic correlation is hence essential. Dr. David Roth has reviewed this case in consultation and concurs with the diagnosis. [facility] Immunoperoxidase stains were performed on this case [...] have personally conducted a gross and/or microscopic [facility] Electronically examination of the described specimens and rendered or confirmed the above diagnosis. CENTER signed by FLOYD Luciano MD on SERVICES 12/30/2020 at 14 10 Rapid Diagnosis RECTUS ABDOMINUS MUSCLE, RIG HT, ULTRASOUND GUIDED FINE NEEDLE ASPIRATION: [facility] Evaluation episode #1: Pass #1: Positive, [...] Aspiration sample was performed by Pathologists at [facility], [address] [place] [address]. 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 [facility] 2 fixed prepared slides, 3 D iff Quik prepared slides, and 1 tube of CytoLyt were received and processed by selective cellular enhancement technique. [facility] Performing Lab [facility] LAB [facility]OR[facility] SERVICES Scanned Images [facility]OR[facility] SERVICES Specimen ZZUNK - Soft tissue (navigational concep t) Performing Organization Address City/State/ZIP Code Phon e Number [facility] [address] [place] [address] SERVICES documented in this encounter Visit Diagnoses Diagnosis Encounter for other general examination documented in this encounter Care Teams Energy And Conservation Technician Relationship Specialty Start Date End Date Manuel Isaacs MD PCP - General 04/02/[address] [place] [phone] documented as of this encounter
--- OUTSIDE RECORDS SUMMARY | 2021-12-04 01:41 | XMS_ITS | Encounter Summary ---
:1940 Author Organization [facility] Address [address] [place] [address] Care Team Providers Name Role Phone Manuel Isaacs MD Primary Care Provider Encounter Details Date Type Department Care Team Description 07/10/2021 Lab Requisition [facility] Outr Resulting Lab, Pathology & Laboratory Provider [facility] [address] [place], [place] [id number] Social History Tobacco Use Types Packs/Day Years [...] (07/10/2021 8:50 EDT) CEA 6.7 See Note [facility] Comment: ng/mL LABORATORY % Distribution [...] malignant disease. ?? Assayed on Siemens ADVIA Browsarity taur XPT using chemiluminescent technology. ??Values obtained by different assay methods cannot be used interchangeably. Specimen Blood - Venous blood (substance) Performing Organization Address City/State/ZIP Code Phon e Number [facility] LABORATORY [address] [place] [address] SERVICES documented in this encounter Visit Diagnoses Not on filedocumented in this encounter Care Teams Registered Associate Relationship Specialty Start Date End Date Manuel Isaacs MD PCP - General 04/02/[address] [place] [phone] documented as of this encounter
--- OUTSIDE RECORDS SUMMARY | 2021-12-04 01:41 | XMS_ITS | Encounter Summary ---
:1940 Author Organization [facility] Address [address] [place] [address] Care Team Providers Name Role Phone Nayan Hilton Primary Care Provider Reason for Visit Reason Comments Advice Only Colon cancer involving the u terus Encounter Details Date Type Department Care Team Description 11/19/2019 Initial consult [facility] Renate Loomis cancer, Gynecologic Oncology MD Kylah MSc ascending ([facility]) - [facility] [address] [place] (Primary Dx) [address] [place], [place] [id number] [place] [address] Pavilion, Level 4 [place] [address] (Wo rk) Social History Tobacco [...] underwent CT scans and colonoscopy up at [facility]. 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 Works for [employer], [employer] and [employer]. PSH: Surgical history: Tonsillectomy Family history: Mother [...] colon documented in this encounter Care Teams Coordinator Cardiopulmonary Services Relationship Specialty Start Date End Date Nayan Hilton DO PCP - General 06/17/17 04/01/20 documented as of this encounter
--- OUTSIDE RECORDS SUMMARY | 2021-12-04 01:41 | XMS_ITS | Encounter Summary ---
:1940 Author Organization [facility] Address [address] [place] [address] Care Team Providers Name Role Phone Jodi Camp MD Primary Care Provider Encounter Details Date Type Department Care Team Description 10/22/2015 Hospital Encounter [facility] MD [facility] [address] [place] [phone] Social History Tobacco Use Types Packs/Day Years [...] Code Departure Means Destination Home or Self Residential documented in this encounter Plan of Treatment Not on filedocumented as of this encounter Visit Diagnoses Not on filedocumented in this encounter Care Teams Diving Judge Relationship Specialty Start Date End Date Jodi Camp MD PCP - General 09/03/15 12/22/[address] [address] documented as of this encounter
--- OUTSIDE RECORDS SUMMARY | 2021-12-04 01:41 | XMS_ITS | Encounter Summary ---
:1940 Author Organization [facility] Address [address] [place] [address] Care Team Providers Name Role Phone Manuel Isaacs MD Primary Care Provider Encounter Details Date Type Department Care Team Description 08/28/2021 Lab Requisition [facility] Outr Resulting Lab, Pathology & Laboratory Provider [facility] [address] [place] [address] Social History Tobacco Use Types [...] (08/28/2021 6:55 EDT) CEA 3.4 See Note [facility] Comment: ng/mL LABORATORY % Distribution of [...] malignant disease. ?? Assayed on Siemens ADVIA Artisoft taur XPT using chemiluminescent technology. ??Values obtained by different assay methods cannot be used interchangeably. Specimen Blood - Venous blood (substance) Performing Organization Address City/State/ZIP Code Phon e Number [facility] LABORATORY [address] [place] [address] SERVICES documented in this encounter Visit Diagnoses Not on filedocumented in this encounter Care Teams Board Operator Relationship Specialty Start Date End Date Manuel Isaacs MD PCP - General 04/02/[address] [place] [phone] documented as of this encounter
--- OUTSIDE RECORDS SUMMARY | 2021-12-04 01:41 | XMS_ITS | Encounter Summary ---
:1940 Author Organization [facility] Address [address] [place] [address] Care Team Providers Name Role Phone Manuel Isaacs MD Primary Care Provider Encounter Details Date Type Department Care Team Description 04/22/2021 Lab Requisition [facility] Outr Resulting Lab, Pathology & Laboratory Provider [facility] [address] [place] [address] Social History Tobacco Use Types [...] (04/22/2021 9:44 EST) CEA 3.6 See Note [facility] Comment: ng/mL LABORATORY % Distribution of CEA [...] Organization Address City/State/ZIP Code Phon e Number [facility] LABORATORY [address] [place] [address] SERVICES documented in this encounter Visit Diagnoses Not on filedocumented in this encounter Care Teams Laboratory Mechanic Helper Relationship Specialty Start Date End Date Manuel Isaacs MD PCP - General 04/02/[address] [place] [phone] documented as of this encounter
--- OUTSIDE RECORDS SUMMARY | 2021-12-04 01:41 | XMS_ITS | Encounter Summary ---
:1940 Author Organization [facility] Address [address] [place] [address] Care Team Providers Name Role Phone YobaniNayan Pedro HARRISON Primary Care Provider Mnauel Isaacs MD Primary Care Provider Encounter Details Date Type Department Care Team Description 12/27/2019 Lab Requisition [facility] Jamie Jean-Baptiste E ncounter for other Pathology & general examination Laboratory Medicine [address] [place] [address] [address] [place] [address] [place], [place] [phone] Social History Tobacco Use Types Packs/Day Years [...] EDT) Final Diagnosis A. ILEOSTOMY TAKEDOWN: [facility] MEDICAL - Enterocutaneous junction consistent with ostomy. CENTER - Extensive suture granulomas and reactive changes. LABORATORY SERVICES Attestation There was significant [facility] MEDICAL Electr onically resident/fellow CENTER signed by Salome clancy involvement in the LABORATORY MD Renee on diagnostic evaluation SERVICES 020 at 0916 of this case. By the signature below, the attending physician certifies that they have personally conducted a gross and/or microscopic examination of the described specimens and rendered or confirmed the above diagnosis. Clinical History None listed [facility]OR[facility] SERVICES Gross Description A. [facility] MEDICAL Received in formalin denise d [...] bowel remained constant throughout averaging 1.0 cm. Shipyard Painting Supervisor sections are submitted as follows: BLOCK MORALES A1- section to include skin and small bowel, longitudi nal A2-A3- serial section, bisected A4-A5- serial section, bisected Jarrett Paredes MD 12/28/2019 16:10 Resident/Fellow: Jarrett Paredes MD [facility] SERVICES Performing Lab [facility] LABOR[facility] SERVICES Scanned Images [facility] SERVICES Specimen Tissue - Entire sigmoid colon (body stru cture) Performing Organization Address City/State/ZIP Code Phon e Number [facility] [address] [place] [address] SERVICES documented in this encounter Visit Diagnoses Diagnosis Encounter for other general examination documented in this encounter Care Teams Drafter Refrigeration Relationship Specialty Start Date End Date Nayan Hilton DO PCP - General 06/17/17 04/01/20 Manuel Isaacs MD PCP - General 04/02/[address] [place] [phone] documented as of this encounter
--- OUTSIDE RECORDS SUMMARY | 2021-12-04 01:41 | XMS_ITS | Encounter Summary ---
:1940 Author Organization [facility] Address [address] [place] [address] Care Team Providers Name Role Phone Nayan Hilton Primary Care Provider Reason for Referral Laboratory Services (Routine) - New Request Specialty Diagnoses / Procedures Referred By Contact Refer red To Contact Diagnoses Colovesical fistula Bashir Kapadia MD Procedures BACTERIAL CULTURE, URINE [address] [phone] Referral ID Status Reason Start Date Expiration Date Visits V isits Requested Authorized [id number] New Request 11/14/2019 1 1 Reason for Visit Reason Comments New Patient Visit Consult (Urgent) - Authorization Not Required Specialty Diagnoses / Procedures Referred By Contact Refer dontae To Contact Urology Diagnoses Vesicocolic fistula Bashir Kapadia MD [address] [place] [address] [phone] Phone: Fax: Referral ID Status Reason Start Expiration Visits Visits Date Date Requested Authorized [id number] Authorization Not 1 1 Required Encounter Details Date Type Department Care Team Description 11/14/2019 Telemedicine [facility] Mehdi Kapadia MD Colovesical fistula Urology - Main [address] [place] (Primary Dx ) [address] [place], [place] [address] [place] [address] [place] [phone] (Wo rk) Social History Tobacco Use Types [...] with colon cancer. 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 She initially was slated to undergo surgery thisweek at [facility] but ultimately the decision was made to transfer care to [facility]. She underwent an office cystoscopy with Dr. [...] prepared with voice recognition software. Please excuse classroom aide errors. Patient consented to a phone visit. [...] 11/14/2019 documented in this encounter Care Teams Bowling Ball Finisher Relationship Specialty Start Date End Date Nayan Hilton DO PCP - General 06/17/17 04/01/20 documented as of this encounter
--- OUTSIDE RECORDS SUMMARY | 2021-12-04 01:41 | XMS_ITS | Encounter Summary ---
:1940 Author Organization [facility] Address [address] [place] [address] Care Team Providers Name Role Phone Nayan Hilton Primary Care Provider Reason for Visit Reason Comments New Patient Visit Flex/sig Colon Cancer Encounter Details Date Type Department Care Team Description 11/19/2019 Office Visit [facility] Valerie Zamora MD Malignant neoplasm of General Surgery - [address] [place] [address] ([facility]) (Primary [address] [facility], Main Dx) [place] [address] Pavilion, [place] [phone] (Wo rk) Social History Tobacco Use Types [...] Progress Notes Javon Benson RN - 11/19/2019 0980 EDT Patient Education Topic: SSI/Ostomy Teaching Method: Handout and Verbal Taught to: Family and Patient Barriers: None Outcomes: verbalized understanding Signature: JAVON BENSON RN Full Surgical Prep and brief ostomy teaching reviewed with oJy and her . I can tell they are both overwhelmed and not in favor of an ostomy. I will send the prescriptions to [facility] in [place]. I have also encouraged Joy to increase her ambulation and increase her caloric and protein needs starting immediately. I was supervised by Dr Zamora who was present and immediately available in the office suite. JAVON BENSON RN 11/19/2019 14:58 Valerie Acuna MD - 11/19/2019 0969 EDT Colorectal Surgery Chief Complaint: Cecum/sigmoid cancer [...] scans and colonoscopy up at [facility]. 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 Works for [employer], [employer] and [employer] CT scan of the chest abdomen and [...] confirmed prior to the procedure. With a report developer present the patient was placed in the [...] (ABNORMAL) COMPLETE BLOOD COUNT (11/19/2019 12:36 EDT) [facility] WBC 9.83 4.00 - 12.40 K/cmm [facility] LABORATORY SERVICES RBC 3.57 (L) 3.86 - 5.04 M/cmm [facility] LABOR[facility]ORY SERVICES Hemoglobin 8.6 (L) 11.6 - 15.2 gm/dL [facility] LABOR[facility] SERVICES HCT 29.4 (L) 34.9 - 44.4 % [facility] LABOR[facility] SERVICES MCV 82 81 - 98 fl [facility] LABOR[facility] SERVICES MCH 24.1 (L) 26.7 - 33.3 pg [facility] LABORATORY SERVICES Hypochromia 1+ [facility] LABORATORY SERVICES MCHC 29.3 (L) 32.1 - 35.9 gm/dL [facility] LABORATORY SERVICES RDW-CV 17.0 (H) <14.7 % [facility] LABORATORY SERVICES RDW-SD 49.7 <50.4 fl [facility] LABORATORY SERVICES Anisocytosis 1+ [facility] LABORATORY SERVICES PLT 626 (H) 141 - 377 K/cmm [facility] LABORATORY SERVICES MPV 9.1 (L) 9.5 - 12.7 fl [facility] LABORATORY SERVICES Specimen Blood - Venous blood (substance) Performing Organization Address City/[facility]/ZIP Code Phon e Number [facility] LABORATORY [address] [place] [address] SERVICES CREATININE (11/19/2019 12:36 EDT) Creatinine 0.81 0.52 - 1.04 [facility] mg/dL LABORATORY SERVICES eGFR 70Comment: eGFR >60 [facility] calculated using mL/min/1.73m2 LABORATORY SERVICES CKD-EPI equation for non- Americans. Multiply eGFR by 1.16 for patients. Specimen Blood - Venous blood (substance) Performing Organization Address City/[facility]/ZIP Code Phon e Number [facility] LABOR[facility]ORY [address] [place] [address] SERVICES BUN (11/19/2019 12:36 EDT) Pathologist Sig nature BUN 18 10 - 26 mg/dL [facility] LABORATO RY SERVICES Specimen Blood - Venous blood (substance) Performing Organization Address City/State/ZIP Code Phon e Number [facility] LABOR[facility]ORY [address] [place] [address] SERVICES (ABNORMAL) ELECTROLYTES (11/19/2019 12:36 EDT) Pathologist Sig nature Sodium 132 (L) 136 - 145 mEq/L [facility] LABORA TORY SERVICES Potassium 4.3 3.5 - 5.0 mEq/L [facility] LABORA TORY SERVICES Chloride 97 96 - 110 mEq/L [facility] LABORAT ORY SERVICES CO2 Total 25 22 - 32 mEq/L [facility] LABORATO RY SERVICES Specimen Blood - Venous blood (substance) Performing Organization Address City/State/ZIP Code Phon e Number [facility] LABORATORY [address] [place] [address] SERVICES PRE-OP BLOOD BANK DRAW (11/19/2019 12:36 EDT) Pathologist Sig nature Hold BB Specimen valid up to [facility] 30 days from BLOOD BANK collection date. Specimen Blood - Venous blood (substance) Performing Organization Address City/[facility]/ZIP Code Phon e Number [facility] BLOOD BANK [address] [place] [address] documented in this encounter Visit Diagnoses Diagnosis [...] 11/19/2019 documented in this encounter Care Teams Sharepoint Net Developer Relationship Specialty Start Date End Date Nayan Hilton DO PCP - General 06/17/17 04/01/20 documented as of this encounter
--- OUTSIDE RECORDS SUMMARY | 2021-12-04 01:41 | XMS_ITS | Encounter Summary ---
:1940 Author Organization [facility] Address [address] [place] [address] Care Team Providers Name Role Phone Nayan Hilton DO Primary Care Provider Encounter Details Date Type Department Care Team Description 11/19/2019 Orders Only [facility] Valerie Zamora MD Encounter for General Surgery - [address] [facility] laboratory [facility] [address] testing for COVID-19 111 [facility], Main [place] [address] Tish, Level 5 patient (Primary Dx) [phone] [place] [phone] (Wo rk) Social History Tobacco Use Types [...] Primary documented in this encounter Care Teams Research Greenhouse Supervisor Relationship Specialty Start Date End Date Nayan Hilton DO PCP - General 06/17/17 04/01/20 documented as of this encounter
--- OUTSIDE RECORDS SUMMARY | 2021-12-04 01:41 | XMS_ITS | Encounter Summary ---
:1940 Author Organization [facility] Address [address] [place] [address] Care Team Providers Name Role Phone Nayan Hilton Primary Care Provider Reason for Visit Laboratory Services (Routine) - New Request Specialty Diagnoses / Procedures Referred By Contact Refer red To Contact Diagnoses Colovesical fistula Bashir Kapadia MD Procedures BACTERIAL CULTURE, URINE 111 [facility] [address] [place] [address] Referral ID Status Reason Start Date Expiration Date Visits V isits Requested Authorized [id number] New Request 11/14/2019 1 1 Encounter Details Date Type Department Care Team Description 11/19/2019 Phlebotomy Only [facility] ED Center 2 Children'S Program Coordinator, Acc Colove sical fistula; Phlebotomy Phlebotomy Malignant neoplasm of ascend ing colon ([facility]) [address] [place] [address] Social History Tobacco Use Types Packs/Day Years [...] EDT of ascending colon procedure are in ([facility]) the results section. COMPLETE BLOOD COUNT Routine 11/19/2019 12:36 Malignant neopla sm Results for this EDT of ascending colon procedure are in ([facility]) the results section. TYPE AND SCREEN Today 11/19/2019 12:36 Malignant neoplasm Re sults for this EDT of ascending colon procedure are in ([facility]) the results section. BUN Routine 11/19/2019 12:36 Malignant neoplasm Resul ts for this EDT of ascending colon procedure are in ([facility]) the results section. CREATININE Routine 11/19/2019 12:36 Malignant neoplasm Resul ts for this EDT of ascending colon procedure are in ([facility]) the results section. ELECTROLYTES Routine 11/19/2019 12:36 Malignant neoplasm Resul ts for this EDT of ascending colon procedure are in ([facility]) the results section. documented in this encounter Results TYPE AND SCREEN (11/19/2019 12:36 EDT) ABO O [facility] BLOOD BANK Rh Factor Positive [facility] BLOOD [facility] Antibody Screen Negative [facility] BLOOD BANK Specimen Expires: 12/03/2019 @ 23:59 [facility] BLOOD BANK Specimen Blood - Venous blood (substance) Performing Organization Address City/State/ZIP Code Phon e Number [facility] BLOOD BANK [address] [place] [address] (ABNORMAL) COMPLETE BLOOD COUNT (11/19/2019 12:36 EDT) Pathologist Sig nature WBC 9.83 4.00 - 12.40 [facility] RBC 3.57 (L) 3.86 - 5.04 M/cmm [facility] LABORATORY SERVICES Hemoglobin 8.6 (L) 11.6 - 15.2 gm/dL [facility] LABORATORY SERVICES HCT 29.4 (L) 34.9 - 44.4 % [facility] LABORATORY SERVICES MCV 82 81 - 98 fl [facility] LABORATORY SERVICES MCH 24.1 (L) 26.7 - 33.3 pg [facility] LABORATORY SERVICES Hypochromia 1+ [facility] LABORATORY SERVICES MCHC 29.3 (L) 32.1 - 35.9 gm/dL [facility] LABORATORY SERVICES RDW-CV 17.0 (H) <14.7 % [facility] LABORATORY SERVICES RDW-SD 49.7 <50.4 fl [facility] LABORATORY SERVICES Anisocytosis 1+ [facility] LABORATORY SERVICES PLT 626 (H) 141 - 377 K/cmm [facility] LABORATORY SERVICES MPV 9.1 (L) 9.5 - 12.7 fl [facility] LABORATORY SERVICES Specimen Blood - Venous blood (substance) Performing Organization Address City/[facility] Code Phon e Number [facility] LABORATORY [address] [place] [phone] SERVICES CREATININE (11/19/2019 12:36 EDT) Creatinine 0.81 0.52 - 1.04 [facility] mg/dL LABORATORY SERVICES eGFR 70Comment: eGFR >60 [facility] calculated using mL/min/1.73m2 LABORATORY SERVICES CKD-EPI equation for non- Americans. Multiply eGFR by 1.16 for patients. Specimen Blood - Venous blood (substance) Performing Organization Address City/[facility]/ZIP Code Phon e Number [facility] LABORATORY [address] [place] [address] SERVICES BUN (11/19/2019 12:36 EDT) Pathologist Sig nature BUN 18 10 - 26 mg/dL [facility] LABORATO RY SERVICES Specimen Blood - Venous blood (substance) Performing Organization Address [facility]/ZIP [facility] Phon e Number [facility] LABORATORY [address] [place] [address] SERVICES (ABNORMAL) ELECTROLYTES (11/19/2019 12:36 EDT) Pathologist Sig nature Sodium 132 (L) 136 - 145 mEq/L [facility] LABORA TORY SERVICES Potassium 4.3 3.5 - 5.0 mEq/L [facility] LABORA TORY SERVICES Chloride 97 96 - 110 mEq/L [facility] LABORAT ORY SERVICES CO2 Total 25 22 - 32 mEq/L [facility] LABORATO RY SERVICES Specimen Blood - Venous blood (substance) Performing Organization Address City/State/ZIP Code Phon e Number [facility] LABOR[facility]ORY [address] [place] [address] SERVICES PRE-OP BLOOD BANK DRAW (11/19/2019 12:36 EDT) Pathologist Sig nature Hold BB Specimen valid up to [facility] 30 days from BLOOD BANK collection date. Specimen Blood - Venous blood (substance) Performing Organization Address City/[facility]/ZIP Code Phon e Number [facility] BLOOD BANK [address] [place] [address] documented in this encounter Visit Diagnoses Diagnosis Colovesical fistula Intestinovesical fistula Malignant neoplasm of ascending colon ([facility]-CMS) (HCC) Malignant neoplasm of ascending colon documented in this encounter Care Teams Change Management Facilitator Relationship Specialty Start Date End Date Nayan Hilton DO PCP - General 06/17/17 04/01/20 documented as of this encounter
--- OUTSIDE RECORDS SUMMARY | 2021-12-04 01:41 | XMS_ITS | Encounter Summary ---
:1940 Author Organization [facility] Address [address] [place] [address] Care Team Providers Name Role Phone Jodi Camp MD Primary Care Provider Reason for Visit Reason Onset Date Comments Appointment Related 09/10/2015 Call patient with a follow up visit with trauma, She is s/p treatment for presumed perforated appendicitis Encounter Details Date Type Department Care Team Description 09/10/2015 Telephone [facility] Jessica Darby tment Related Acute Care Surgery - MD Pedro (Call patient with a Main [place] [address] follow up visit with [address] [facility] [address] [address] trauma, She is s/p [place], [place] [phone] [place] [address] treatment for presumed [phone] perforated appe ndicitis) Social History Tobacco Use [...] on filedocumented in this encounter Care Teams Office Chair Assembler Relationship Specialty Start Date End Date Jodi Camp MD PCP - General 09/03/15 12/22/15 [facility] MEDICINE [address] [address] documented as of this encounter
--- OUTSIDE RECORDS SUMMARY | 2021-12-04 01:41 | XMS_ITS | Encounter Summary ---
:1940 Author Organization [facility] Address [address] [place] [address] Care Team Providers Name Role Phone Manuel Isaacs MD Primary Care Provider Encounter Details Date Type Department Care Team Description 05/20/2021 Lab Requisition [facility] Outr Resulting Lab, Pathology & Laboratory Provider [facility] [address], [place] [id number] Social History Tobacco Use Types Packs/Day Years [...] Date/Time Associated Diagnosis Comme nts CEA Routine 05/20/2021 8:58 EST Results for this procedure are i n the results section . documented in this encounter Results CEA (05/20/2021 8:58 EST) CEA 2.9 See Note [facility] Comment: ng/mL LABORATORY % Distribution of [...] Organization Address City/State/ZIP Code Phon e Number [facility] [address] [place] [address] SERVICES documented in this encounter Visit Diagnoses Not on filedocumented in this encounter Care Teams Centrifuge Operator Relationship Specialty Start Date End Date Manuel Isaacs MD PCP - General 04/02/[address] [place] [phone] documented as of this encounter
--- OUTSIDE RECORDS SUMMARY | 2021-12-04 01:41 | XMS_ITS | Encounter Summary ---
:1940 Author Organization [facility] Address [address] [place] [address] Care Team Providers Name Role Phone Manuel Isaacs MD Primary Care Provider Encounter Details Date Type Department Care Team Description 09/25/2021 Lab Requisition [facility] Outr Resulting Lab, Pathology & Laboratory Provider [facility] [address] [place], [place] [id number] Social History Tobacco Use Types Packs/Day Years [...] (09/25/2021 8:50 EDT) CEA 4.3 See Note [facility] Comment: ng/mL LABORATORY % Distribution [...] malignant disease. ?? Assayed on Siemens ADVIA Mr. Number taur XPT using chemiluminescent technology. ??Values obtained by different assay methods cannot be used interchangeably. Specimen Blood - Venous blood (substance) Performing Organization Address City/State/ZIP Code Phon e Number [facility] [address] [place] [address] SERVICES documented in this encounter Visit Diagnoses Not on filedocumented in this encounter Care Teams Repair Weaver Relationship Specialty Start Date End Date Manuel Isaacs MD PCP - General 04/02/[address] [place] [phone] documented as of this encounter
--- OUTSIDE RECORDS SUMMARY | 2021-12-04 01:41 | XMS_ITS | Encounter Summary ---
:1940 Author Organization [facility] Address [address] [place] [address] Care Team Providers Name Role Phone Manuel Isaacs MD Primary Care Provider Encounter Details Date Type Department Care Team Description 11/06/2021 Lab Requisition [facility] Outr Resulting Lab, Pathology & Laboratory Provider [facility] [address] [place] [address] Social History Tobacco Use Types [...] Date/Time Associated Diagnosis Comme nts CEA Routine 11/06/2021 9:55 EDT Results for this procedure are i n the results section . documented in this encounter Results CEA (11/06/2021 9:55 EDT) CEA 3.8 See Note [facility] Comment: ng/mL LABORATORY % Distribution [...] malignant disease. ?? Assayed on [employer] taur XPT using chemiluminescent technology. ??Values obtained by different assay methods cannot be used interchangeably. Specimen Blood - Venous blood (substance) Performing Organization Address City/State/ZIP Code Phon e Number [facility] [address] [place] [address] SERVICES documented in this encounter Visit Diagnoses Not on filedocumented in this encounter Care Teams Learning Developer Relationship Specialty Start Date End Date Manuel Isaacs MD PCP - General 04/02/[address] [place] [phone] documented as of this encounter
--- OUTSIDE RECORDS SUMMARY | 2021-12-04 01:41 | XMS_ITS | Encounter Summary ---
:1940 Author Organization [facility] Address [address] [place] [address] Care Team Providers Name Role Phone Jodi Camp MD Primary Care Provider Reason for Visit Reason Comments Follow-up Perf Appendix Follow Up (Routine) - Closed Specialty Diagnoses / Procedures Referred By Contact Refer red To Contact Trauma Surgery Diagnoses Sepsis, due to unspecified organism Intra-abdominal infection Nina Power Ep5 Trauma/Crit Care MD [place] [address] [facility] [address] [place], [place] [phone] [place] [phone] Phone: Fax: Referral ID Status Reason Start Date Expiration Date Visits V isits Requested Authorized [id number] Closed Specialty 09/07/2015 1 1 Services Required Encounter Details Date Type Department Care Team Description 10/07/2015 Office Visit [facility] Jeremy Caceres Intra -abdominal Acute Care Surgery - MD Shad infecti on (Primary Dx) Main [facility] [address] [place] [address] Social History Tobacco Use Types Packs/Day Years [...] Progress Notes Jeremy Caceres MD - 10/07/2015 0900 EDT Ms Armstrong presents with her in [...] eases documented in this encounter Care Teams Manager Vehicle Relationship Specialty Start Date End Date Jodi Camp MD PCP - General 09/03/15 12/22/[address] [id number] documented as of this encounter
--- OUTSIDE RECORDS SUMMARY | 2021-12-04 01:41 | XMS_ITS | Encounter Summary ---
:1940 Author Organization [facility] Address [address] [place] [address] Care Team Providers Name Role Phone Jodi Camp MD Primary Care Provider Reason for Referral Cardiology (Routine) - Closed Specialty Diagnoses / Procedures Referred By Contact Refer red To Contact Diagnoses Right ventricular dilation Contreras Preston MD Procedures ECHOCARDIOGRAM [address] [place] [phone] Referral ID Status Reason Start Date Expiration Date Visits Requ ested Visits Authorized [id number] Closed 10/13/2015 1 1 Encounter Details Date Type Department Care Team Description 10/13/2015 Orders Only [facility] Juhi Moncada, Right v entricular Cardiology - Amber KOENIG dilation (Primary Dx) [address] [place], [place] [address] Social History Tobacco Use [...] further f/u is recommended. If abnormal, Dr. Preston would like to see pt in clinic. [...] Results ECHOCARDIOGRAM (10/22/2015 15:58 EDT) Specimen Narrative [facility] [place] - 10/22/2015 16:47 EDT *Interpreting Group:* *[facility]* [address] [place] [address] Date of study: 10/22/2015 Transthoracic Echocardiography M-mode, [...] ORDERING ? Contreras Preston REFERRING ?Contreras Preston,r PLUG OVERWRAP MACHINE TENDER ??Sophie Acharya PERFORMING ?? [facility], PLUG OVERWRAP MACHINE TENDER ??Junior Renee *PROCEDURE DATA* Procedure information: ??This study was interpreted by [facility]. Pertinent imag es [...] Zambrano MD - 10/22/2015 *Interpreting Group:* *[facility]* [address] [place] [address] Date of study: 10/22/2015 Transthoracic Echocardiography M-mode, [...] PM. Test stop time: 04:11 PM. ADMITTING Contrreas Preston ATTENDING Contreras Preston ORDERING Contreras Preston REFERRING Contreras Preston r PLUG OVERWRAP MACHINE TENDER Sophie Acharya PERFORMING [facility], Op PLUG OVERWRAP MACHINE TENDER Junior Renee *PROCEDURE DATA* Procedure information: This [...] Code Phon e Number [facility] [place] documented in this encounter Visit Diagnoses Diagnosis Right ventricular dilation - Primary Cardiomegaly documented in this encounter Care Teams Central Supply Nurse Relationship Specialty Start Date End Date Jodi Camp MD PCP - General 09/03/15 12/22/[address] [address] documented as of this encounter
--- OUTSIDE RECORDS SUMMARY | 2021-12-04 01:42 | XMS_ITS | Encounter Summary ---
:1940 Author Organization [facility] Address [address] [place] [address] Care Team Providers Name Role Phone Jodi Camp MD Primary Care Provider Reason for Referral Referral (3 - 10 Business Days) - Closed Specialty Diagnoses / Procedures Referred By Contact Refer red To Contact Cardiology Diagnoses Elevated troponin Sepsis, due to unspecified organism Bianka Schmitt NP [facility] [address] [facility] [address] [place], [place] [id number] [place], [place] [address], [address] [place] [address] Referral ID Status Reason Start Date Expiration Date Visits V isits Requested Authorized [id number] Closed Specialty 09/25/2015 1 1 Services Required [...] Power Ep5 Trauma/Crit Care MD Ceasar [address] [place] [address] [place] [address] Phone: Fax: Referral ID Status Reason Start Date Expiration Date Visits V isits Requested Authorized [id number] Closed Specialty 09/07/2015 1 1 Services Required Question Answer Reason for Request: f/dodd perforated appendicitis Scheduling Comments (optional ? 2 weeks describe specific scheduling needs if applicable): Expected Discharge Date (Inpatient Only): 09/07/2015 Reason for Visit Reason Comments Fever See tcall. Abd mass on CT Encounter Details Date Type Department Care Team Description 09/03/2015 - [facility] Ken Leggett MD 111 [facility] 1 [place] [id number] Sepsis, due to unspecified organism ([facility]) (Primary Dx); 09/07/2015 Encounter General Surgery Neida Fisher MD 111 [facility], [address] [place] [id number] Intra-abdominal infection; Unit Elevated troponin [address] [place], [place] [id number] Social History Tobacco Use Types Packs/Day Years [...] per chart review who was transferred to [facility] from in from an OSH on 09/03/15 [...] Atrial septum: Echo contrast study showed no hqsoi-lo-lrig atrial level ? shunt, at baseline or [...] to self care Hui Calle RN CM [id number] Mary Mckenzie RN - 09/07/2015 1350 EDT [...] attestation - Jessica Darby MD - 09/07/2015 8345 EDT Attending attestation statement: I saw and examined the patient and agree with the findings and plans as documented. Making appropriate recovery from perforated appendicitis and sepsis. Tolerating PO. Continue antibiotic therapy (total 7 days IV + PO). Likely discharge to home today. Lo??c MD [facility] Pager #[phone], Dalia Coleman MD - 09/06/2015 4612 EDT Acute Care Surgery Note Admit Date: [...] attestation - Jessica Darby MD - 09/06/2015 2525 EDT Attending attestation statement: I saw and examined the patient and agree with the findings and plans as documented. Making excellent clinical improvement. Afebrile, WBC downtrending. Abdominal exam is benign. Continue Augmentin to complete 7 days total antibiotic therapy. If continues to do well and remains afebrile, will likely be appropriate for discharge to home tomorrow. Lo??c MD [facility] Acute Care Surgery Pager #[phone] Center[facility]re[facility] figueroa MD - 09/05/2015 6063 EDT Echo without evidence of VSD. RV [...] attestation - Jessica Darby MD - 09/05/2015 6566 EDT Attending attestation statement: I saw and examined the patient and agree with the findings and plans as documented. Significantly clinically improved with resolution of septic shock. Abdomen is soft, ND, NTTP. Continue Zosyn for intra-abdominal infection. Remove Jade and CVC. ADAT, resume outpatient medications. Appropriate for transfer to [facility]. Lo??c MD [facility] Acute Care Surgery Pager #[phone] Johnson RN - 09/05/2015 9105 EDT 0745: Assumed care of pt. Pt [...] transferred to [facility] with transport. Tiffanie wsan CSW - 09/04/2015 1332 EDT Initial Case [...] POA &/or COLST IN PLACE: No CULTURAL, VOODOO and/or LANGUAGE factors affecting health care/discharge planning: [...] have profound septic shock and transferred to [facility]. Pt states that 2 weeks ago [...] personally reviewed the last labs available in [facility] and any transfer labs OSH labs: wbc [...] line and start levophed instead of dopamine [place] for BP monitoring Trend lactate Consult critical [...] Lerner and Dr. Welchectronically signed by Neida Fisehr MD at 09/03/2015 16:03 EDT Associated attestation [...] Central Catheter Insertion First Catheter This Session associate director data & analytics: Patient Location: [place] [address] Preliminary Data: Insertion Date: 09/03/15 Insertion Time: 1648 First Box Machine Operator: Dr. Shahzad Anglin RN/MA Documenting Procedure: Hellen [...] Line Operators: Number Of Operators: 2 First Box Machine Operator's Title: Resident Belt Maker's Title: Resident Unless otherwise noted, there were no complications, no blood loss and no cultures obtained. Shahzad Robles MD 09/03/2015 17:04 arrKofi singh MD - 09/03/2015 1623 EDT Arterial Line Placement Indication: monitoring of blood pressure in setting of septic shock Procedure: right arterial line placement Box Machine Operator: Kofi Thornton MD, Shahzad Robles MD Description: [...] CV: No JVD, no HJD, RR, nondisplaced KS Normal S1 S2, no murmurs, rubs or [...] results found for: PHISTAT, PCOISTAT, POISTAT, POCTCO2, A3USEAYQ, BEART, POCFIO2 LFT: Lab Results Component Value [...] lipid panel Joel Escalona MD 09/03/2015 22:20 [employer] Shop Floorperson Pager # [phone] Associated attestation - Bienvenido Payton MD - [...] have profound septic shock and transferred to [facility]. Pt states that 2 weeks ago [...] findings concerning for rupture appendix. Transferred to [facility] for further management Past Medical History Diagnosis [...] that she went on a trip to [place] August 27 and . Patient reports cold chills that began last evening and emesis that began in the middle of the night. Patient without cough, dysuria or cough. Patient without episodes of syncope or abdominal pain. Patient seen at [facility] prior to transfer where labs for [...] added TROPONIN 1 Final Number for problems 71900 (ED) Final ED/URGENT CARE ADD-ON Tests to be added TSH Final Number for problems 65710 (ED) Final ED/URGENT CARE ADD-ON Tests to be added LIPASE Final Number for problems 81492 (ED) Final LACTIC ACID TROPONIN I LIPASE [...] the Emergency Department: Serious PCP: Jodi Camp [facility] Number of Diagnoses or Management Options [...] SPO2 82% 2 liters. Note taken by Adri. (RDW) documented in this encounter Miscellaneous Notes [...] Met This Shift Data: Patient transferred to [place] [address]. Action: Oriented patient to floor. Encouraged meal [...] administered. R: Patient diuresed 2 liters on shift nurse manager. VSS,. Will CTM. lan of Care - [...] to Ordered: GENERAL SURGERY unspecified organism 08/2015 ([facility]) Intra-abdominal infection AMB CONS/FOLLOW UP Outpatient Referral Routine Elevated troponin Ordered: CARDIOLOGY Sepsis, due to 09/25/2015 unspecified organism ([facility]) documented as of this encounter Procedures Procedure [...] nature WBC 9.90 4.0 - 12.4 K/cmm [facility] LABORATORY SERVICES RBC 3.81 (L) 3.86 - 5.04 [facility] M/[facility] LABORATORY SERVICES Hemoglobin 11.2 (L) 11.6 - 15.2 [facility] gm/dl LABORATORY SERVICES HCT 34.3 (L) 34.9 - 44.4 % [facility] LABORATORY SERVICES MCV 90 81 - 98 fl [facility] LABORATORY SERVICES MCH 29.4 26.7 - 33.3 pg [facility] LABORATORY SERVICES MCHC 32.7 32.1 - 35.9 [facility] gm/dl LABORATORY SERVICES RDW-CV 14.7 (H) 11.7 - 14.6 % [facility] LABORATORY SERVICES RDW-SD 48.4 37.6 - 50.3 fl [facility] LABORATORY SERVICES PLT 130 (L) 141 - 377 K/cmm [facility] LABORATORY SERVICES MPV 11.4 9.5 - 12.7 fl [facility] LABORATORY SERVICES Neutrophils 64.0 % [facility] LABORATORY SERVICES Bands 1.0 % [facility] SERVICES Lymphocytes 20.0 % [facility]ORY SERVICES Monocytes 9.0 % [facility]OR[facility]ORY SERVICES Eosinophils 2.0 % [facility]ORY SERVICES Basophils 1.0 % [facility] LABORATORY SERVICES Metamyelocytes 2.0 % [facility] LABORATORY SERVICES Myelocytes 1.0 % [facility] LABORATORY SERVICES ABS Neutrophils 6.33 2.20 - 8.85 [facility] K/[facility] LABORATORY SERVICES ABS Bands 0.10 [facility] ABS Lymphs 1.98 1.09 - 3.30 [facility] LABORATORY SERVICES ABS Monocytes 0.89 (H) 0.1 - 0.8 [facility] ABS Eosinophils 0.20 0.03 - 0.61 [facility] K/[facility] LABORATORY SERVICES ABS Basophils 0.10 0.01 - 0.11 [facility] LABORATORY SERVICES ABS Metamyelocytes 0.20 [facility] ABS Myelocytes 0.10 [facility] Type of Diff: Manual [facility] LABORATORY SERVICES Specimen Blood specimen (specimen) - Blood Performing Organization Address City/[facility]/RUST Code Phon e Number [facility] LABORATORY [address] [place] [phone] SERVICES TOTAL & DIRECT BILIRUBIN (09/06/2015 7:06 EDT) Pathologist Sig nature Conjugated Bilirubin 0.0 0.0 - 0.3 mg/dl [facility] Unconjugated Bilirubin 0.4 0.0 - 1.1 mg/dl [facility] LABORATORY SERVICES Bilirubin, Total 1.1 <1.4 mg/dl [facility] LABORATORY SERVICES Specimen Blood specimen (specimen) - Blood Performing Organization Address City/State/[facility] Phon e Number [facility] LABORATORY [address] [place] [address] SERVICES (ABNORMAL) ALKALINE PHOSPHATASE (09/06/2015 7:06 EDT) Pathologist Sig nature Total Alkaline 174 (H) 38 - 126 U/L [facility] Phosphatase LABORATORY SERVICES Specimen Blood specimen (specimen) - Blood Performing Organization Address [facility]/State/ZIP Code Phon e Number [facility] LABORATORY [address] [place] [address] SERVICES PHOSPHORUS (09/06/2015 7:06 EDT) Pathologist Sig nature Phosphorus 3.0 2.5 - 4.5 mg/dl [facility] LABORA TORY SERVICES Specimen Blood specimen (specimen) - Blood Performing Organization Address City/[facility]/ZIP Code Phon e Number [facility] LABORATORY [address] [place] [address] SERVICES MAGNESIUM (09/06/2015 7:06 EDT) Pathologist Sig nature Magnesium 2.1 1.7 - 2.8 mg/dl [facility] LABORA TORY SERVICES Specimen Blood specimen (specimen) - Blood Performing Organization Address City/[facility]/ZIP Code Phon e Number [facility] LABORATORY [address] [place] [address] SERVICES ALT (09/06/2015 7:06 EDT) Pathologist Sig nature ALT 49 <53 U/L [facility] LABORATOR Y SERVICES Specimen Blood specimen (specimen) - Blood Performing Organization Address City/[facility]/ZIP Code Phon e Number [facility] LABORATORY [address] [place] [address] SERVICES AST (09/06/2015 7:06 EDT) Pathologist Sig nature AST 44 15 - 46 U/L [facility] LABORATOR Y SERVICES Specimen Blood specimen (specimen) - Blood Performing Organization Address City/[facility]/ZIP Code Phon e Number [facility] LABORATORY [address] [place] [address] SERVICES BUN (09/06/2015 7:06 EDT) Pathologist Sig nature BUN 12 10 - 26 mg/dl [facility] LABORATO RY SERVICES Specimen Blood specimen (specimen) - Blood Performing Organization Address City/[facility]/ZIP Code Phon e Number [facility] LABORATORY [address] [place] [address] SERVICES CREATININE (09/06/2015 7:06 EDT) Creatinine 0.63 0.52 - 1.04 [facility] mg/dl LABORATORY SERVICES GFR, Calculated 90 >60 [facility] Comment: ml/min/1.73m2 LABORATORY eGFR calculated using CKD-EPI equation for SERVICES non Americans. Multiply eGFR by 1.16 for Americans. Specimen Blood specimen (specimen) - Blood Performing Organization Address City/State/ZIP Code Phon e Number [facility] LABORATORY [address] [place] [address] SERVICES CALCIUM, IONIZED (09/06/2015 7:06 EDT) Pathologist Sig nature Calcium, Ionized 1.18 1.12 - 1.32 mmol/L [facility] LABORATORY SERVICES Specimen Blood specimen (specimen) - Blood Performing Organization Address City/[facility]/ZIP Code Phon e Number [facility] LABORATORY [address] [place] [address] SERVICES ELECTROLYTES (09/06/2015 7:06 EDT) Pathologist Sig nature Sodium 140 136 - 145 mEq/L [facility] LABORA TORY SERVICES Potassium 4.0 3.5 - 5.0 mEq/L [facility] LABORA TORY SERVICES Chloride 103 96 - 110 mEq/L [facility] LABORAT ORY SERVICES CO2 26 24 - 32 mEq/L [facility] LABORATO RY SERVICES Specimen Blood specimen (specimen) - Blood Performing Organization Address City/[facility]/ZIP Code Phon e Number [facility] LABORATORY [address] [place] [address] SERVICES (ABNORMAL) HEMAGRAM AND DIFFERENTIAL (09/06/2015 7:06 EDT) Pathologist Sig nature WBC 12.99 (H) 4.0 - 12.4 K/cmm [facility] LABORATORY SERVICES RBC 3.74 (L) 3.86 - 5.04 [facility] M/[facility] LABORATORY SERVICES Hemoglobin 11.0 (L) 11.6 - 15.2 [facility] gm/dl LABORATORY SERVICES HCT 33.8 (L) 34.9 - 44.4 % [facility] LABORATORY SERVICES MCV 90 81 - 98 fl [facility] LABORATORY SERVICES MCH 29.4 26.7 - 33.3 pg [facility] LABORATORY SERVICES MCHC 32.5 32.1 - 35.9 [facility] gm/dl LABORATORY SERVICES RDW-CV 14.8 (H) 11.7 - 14.6 % [facility] LABORATORY SERVICES RDW-SD 49.1 37.6 - 50.3 fl [facility] LABORATORY SERVICES PLT 110 (L) 141 - 377 K/cmm [facility] LABORATORY SERVICES MPV 10.8 9.5 - 12.7 fl [facility] LABORATORY SERVICES Neutrophils 80.0 % [facility] LABORATORY SERVICES Bands 1.0 % [facility] LABORATORY SERVICES Lymphocytes 14.0 % [facility] LABORATORY SERVICES Monocytes 1.0 % [facility] LABORATORY SERVICES Eosinophils 4.0 % [facility] LABORATORY SERVICES ABS Neutrophils 10.39 (H) 2.20 - 8.85 [facility] K/[facility] LABORATORY SERVICES ABS Bands 0.13 K/cmm [facility] LABORATORY SERVICES ABS Lymphs 1.82 1.09 - 3.30 [facility] K/cm LABORATORY SERVICES ABS Monocytes 0.13 0.1 - 0.8 K/cmm [facility] LABORATORY SERVICES ABS Eosinophils 0.52 0.03 - 0.61 [facility] K/[facility] LABORATORY SERVICES Toxic Granulation Present [facility] LABORATORY SERVICES Vacuolization Present [facility] LABORATORY SERVICES Type of Diff: Manual [facility] LABORATORY SERVICES Specimen Blood specimen (specimen) - Blood Performing Organization Address City/State/ZIP Code Phon e Number [facility] LABORATORY [address] [place] [address] SERVICES ECHOCARDIOGRAM LIMITED (09/05/2015 12:02 EDT) Specimen Narrative [facility] CARDIOLOGY MAIN CAMPU S - 09/05/2015 12:59 EDT *Interpreting Group:* *[facility]* [address] [place] [id number] ?? Date of study: 09/05/2015 ?? Transthoracic [...] septum: Echo contrast study sh owed no ydymw-za-hqzq atrial level ?? shunt, at baseline or with provocati on. 4. Pulmonary arteries: Pulmonary systoli c pressure was mildly increased, in the ?? range of 35mm Hg to 40mm Hg. *PATIENT PRESENTATION* Height: ? () S/D Pressure: Weight: ? () BSA: Test start time: ??11:34 AM. Test stop time: ??11:42 AM. REFERRING ?Fabiano Aranda TRIMMER MEAT ??Jarrett Ortiz RDCS ADMITTING ?Neida Fisher ATTENDING ?Neida Fisher ORDERING ? George Vail PERFORMING ?? [facility], *PROCEDURE DATA* Procedure information: ??This study was [...] acoustic windows. Images were obtained using a [employer] IE33 5 cardiac ultrasound machine. Image quality [...] ?? Echo contrast study sh owed no ieyfy-rp-lowm atrial level shunt, at baseline or with [...] *[facility]* [address] [place] [address] Date of study: 09/05/2015 Transthoracic Echocardiography M-mode, limited 2D, limited spectral Dop pler, and color Doppler *STUDY CONCLUSIONS* Summary: 1. Left ventricle: The cavity size was n ormal. Systolic function was normal. The estimated ejection fraction was 60-65%. 2. Right ventricle: The cavity size was mildly to moderately dilated. Systolic function was normal. 3. Atrial septum: Echo contrast study sh owed no bbqvh-yx-xmdn atrial level shunt, at baseline or with provocation. 4. Pulmonary arteries: Pulmonary systoli c pressure was mildly increased, in the range of 35mm Hg to 40mm Hg. *PATIENT PRESENTATION* Height: () S/D Pressure: Weight: () BSA: Test start time: 11:34 AM. Test stop time: 11:42 AM. REFERRING Fabiano Aranda TRIMMER MEAT Jarrett Ortiz [facility] ADMITTING Neida Fisher ATTENDING Neida Fisher Joshua K PERFORMING [facility], *PROCEDURE DATA* Procedure information: This study was [...] acoustic windows. Images were obtained using a [employer] IE33 5 cardiac ultrasound machine. Image quality [...] septum: Echo contrast study showe d no wtfwo-yc-foez atrial level shunt, at baseline or with [...] Wade MD 09/05/2015 12:59 Performing Organization Address [facility] Phon e Number [facility] CARDIOLOGY MAIN CAMPUS LIPID PROFILE (INCLUDES CHOLESTEROL, TRIGLYCERIDES, HDL, LDL) (09/05/2015 3:06 EDT) Cholesterol 138 mg/dl [facility] Comment: LABORATORY Desirable:<200 SERVICES Borderline High:200-239 High:>zj=144 Triglycerides 180 mg/dl [facility] Comment: LABORATORY Normal:<150 SERVICES Borderline High:150-199 High:200-499 Very High:>tf=925 HDL 35 mg/dl [facility] Comment: LABORATORY Low:<40 SERVICES Normal:40-60 Desirable: >60 LDL, Calculated 67 mg/dl [facility] Comment: LABORATORY Optimal:<100 SERVICES Near Optimal:100-129 Borderline High:130-159 High:160-189 Very High:>pv=777 Chol/HDL Ratio 3.9 [facility] LABORATORY SERVICES Fasting? Unknown [facility] LABORATORY SERVICES Non HDL Cholesterol 103 mg/dl [facility] Comment: LABORATORY Desirable:<130 SERVICES Borderline:130-159 High: 160-189 Very High: >xr=415 Specimen Blood specimen (specimen) - Blood Performing Organization Address [facility] Phon e Number [facility] LABORATORY [address] [place] [address] SERVICES TOTAL & DIRECT BILIRUBIN (09/05/2015 3:06 EDT) Pathologist Sig nature Conjugated Bilirubin 0.0 0.0 - 0.3 mg/dl [facility] LABORATORY SERVICES Unconjugated Bilirubin 0.4 0.0 - 1.1 mg/dl [facility] LABORATORY SERVICES Bilirubin, Total 1.0 <1.4 mg/dl [facility] LABORATORY SERVICES Specimen Blood specimen (specimen) - Blood Performing Organization Address [facility] Phon e Number [facility] LABORATORY [address] [place] [phone] SERVICES ALKALINE PHOSPHATASE (09/05/2015 3:06 EDT) Pathologist Sig nature Total Alkaline 94 38 - 126 U/L [facility] Phosphatase LABORATORY SERVICES Specimen Blood specimen (specimen) - Blood Performing Organization Address City/State/ZIP Code Phon e Number [facility] LABORATORY [address] [place] [address] SERVICES (ABNORMAL) PHOSPHORUS (09/05/2015 3:06 EDT) Pathologist Sig nature Phosphorus 2.1 (L) 2.5 - 4.5 mg/dl [facility] LABORATORY SERVICES Specimen Blood specimen (specimen) - Blood Performing Organization Address City/[facility]/ZIP Code Phon e Number [facility] LABORATORY [address] [place] [address] SERVICES MAGNESIUM (09/05/2015 3:06 EDT) Pathologist Sig nature Magnesium 2.0 1.7 - 2.8 mg/dl [facility] LABORA TORY SERVICES Specimen Blood specimen (specimen) - Blood Performing Organization Address City/[facility]/ZIP Code Phon e Number [facility] LABORATORY [address] [place] [address] SERVICES (ABNORMAL) ALT (09/05/2015 3:06 EDT) Pathologist Sig nature ALT 54 (H) <53 U/L [facility] LABORATOR Y SERVICES Specimen Blood specimen (specimen) - Blood Performing Organization Address City/[facility]/ZIP Code Phon e Number [facility] LABORATORY [address] [place] [address] SERVICES (ABNORMAL) AST (09/05/2015 3:06 EDT) Pathologist Sig nature AST 52 (H) 15 - 46 U/L [facility] LABORATOR Y SERVICES Specimen Blood specimen (specimen) - Blood Performing Organization Address City/[facility]/ZIP Code Phon e Number [facility] LABORATORY [address] [place] [address] SERVICES BUN (09/05/2015 3:06 EDT) Pathologist Sig nature BUN 15 10 - 26 mg/dl [facility] LABORATO RY SERVICES Specimen Blood specimen (specimen) - Blood Performing Organization Address City/[facility]/ZIP Code Phon e Number [facility] LABORATORY [address] [place] [address] SERVICES CREATININE (09/05/2015 3:06 EDT) Creatinine 0.79 0.52 - 1.04 [facility] mg/dl LABORATORY SERVICES GFR, Calculated 75 >60 [facility] Comment: ml/min/1.73m2 LABORATORY eGFR calculated using CKD-EPI equation for SERVICES non Americans. Multiply eGFR by 1.16 for Americans. Specimen Blood specimen (specimen) - Blood Performing Organization Address City/State/ZIP Code Phon e Number [facility] LABORATORY [address] [place] [address] SERVICES (ABNORMAL) CALCIUM, IONIZED (09/05/2015 3:06 EDT) Pathologist Sig nature Calcium, Ionized 1.08 (L) 1.12 - 1.32 [facility] mmol/L LABORATORY SERVICES Specimen Blood specimen (specimen) - Blood Performing Organization Address City/State/ZIP Code Phon e Number [facility] LABORATORY [address] [place] [address] SERVICES (ABNORMAL) ELECTROLYTES (09/05/2015 3:06 EDT) Pathologist Sig nature Sodium 142 136 - 145 mEq/L [facility] LABORA TORY SERVICES Potassium 3.3 (L) 3.5 - 5.0 mEq/L [facility] LABORA TORY SERVICES Chloride 105 96 - 110 mEq/L [facility] LABORAT ORY SERVICES CO2 26 24 - 32 mEq/L [facility] LABORATO RY SERVICES Specimen Blood specimen (specimen) - Blood Performing Organization Address City/[facility]/ZIP [facility] Phon e Number [facility] LABORATORY [address] [place] [address] SERVICES (ABNORMAL) HEMAGRAM AND DIFFERENTIAL (09/05/2015 3:06 EDT) Pathologist Sig nature WBC 17.81 (H) 4.0 - 12.4 K/cmm [facility] LABORATORY SERVICES RBC 3.42 (L) 3.86 - 5.04 [facility] M/[facility] LABORATORY SERVICES Hemoglobin 10.2 (L) 11.6 - 15.2 [facility] gm/dl LABORATORY SERVICES HCT 31.1 (L) 34.9 - 44.4 % [facility] LABORATORY SERVICES MCV 91 81 - 98 fl [facility] LABORATORY SERVICES MCH 29.8 26.7 - 33.3 pg [facility] LABORATORY SERVICES MCHC 32.8 32.1 - 35.9 [facility] gm/dl LABORATORY SERVICES RDW-CV 15.0 (H) 11.7 - 14.6 % [facility] LABORATORY SERVICES RDW-SD 50.4 (H) 37.6 - 50.3 fl [facility] LABORATORY SERVICES PLT 96 (L) 141 - 377 K/cmm [facility] LABORATORY SERVICES MPV 10.8 9.5 - 12.7 fl [facility] LABORATORY SERVICES Neutrophils 75.0 % [facility] LABORATORY SERVICES Bands 13.0 % [facility] LABORATORY SERVICES Lymphocytes 9.0 % [facility] LABORATORY SERVICES Monocytes 2.0 % [facility] LABORATORY SERVICES Eosinophils 1.0 % [facility] LABORATORY SERVICES ABS Neutrophils 13.35 (H) 2.20 - 8.85 [facility] K/cmm LABORATORY SERVICES ABS Bands 2.32 K/cmm [facility] LABORATORY SERVICES ABS Lymphs 1.60 1.09 - 3.30 [facility] K/[facility] LABORATORY SERVICES ABS Monocytes 0.36 0.1 - 0.8 K/cmm [facility] LABORATORY SERVICES ABS Eosinophils 0.18 0.03 - 0.61 [facility] K/[facility] LABORATORY SERVICES Toxic Granulation Present [facility] LABORATORY SERVICES Type of Diff: Manual [facility] LABORATORY SERVICES Specimen Blood specimen (specimen) - Blood Performing Organization Address City/State/ZIP Code Phon e Number [facility] LABORATORY [address] [place] [address] SERVICES ECHOCARDIOGRAM (09/04/2015 10:49 EDT) Specimen Narrative [facility] CARDIOLOGY MAIN CAMPU S - 09/04/2015 11:37 EDT *Interpreting Group:* *[facility] Cardiology* [address] [place] [address] ?? Date of study: 09/04/2015 ?? Transthoracic [...] Aranda ADMITTING ?Neida Fisher ATTENDING ?Neida Fisher TRIMMER MEAT ??Rula Cochran PERFORMING ?? [facility], Ip ORDERING [...] windows. Images were obta ined using an Masala 9 cardiac ultrasound machine. Image quality was [...] *[facility] Cardiology* [address] [place] [address] Date of study: 09/04/2015 Transthoracic Echocardiography M-mode, [...] Aranda ADMITTING Neida Fisher ATTENDING Neida Fisher TRIMMER MEATRula Crook PERFORMING [facility], ORDERING Rony Leach *PROCEDURE [...] Lopez Munoz 09/04/2015 11:37 Performing Organization Address [facility]/ZIP Code Phon e Number [facility] CARDIOLOGY MAIN CAMPUS (ABNORMAL) TROPONIN I (09/04/2015 3:18 EDT) Pathologist Sig nature Troponin I (ng/mL) 0.289 (H) <0.034 ng/ml [facility] LABORATORY SERVICES Specimen Blood specimen (specimen) - Blood Performing Organization Address [facility]/ZIP Code Phon e Number [facility] LABORATORY [address] [place] [address] SERVICES TOTAL & DIRECT BILIRUBIN (09/04/2015 3:18 EDT) Pathologist Sig nature Conjugated Bilirubin 0.0 0.0 - 0.3 mg/dl [facility] LABORATORY SERVICES Unconjugated Bilirubin 0.3 0.0 - 1.1 mg/dl [facility] LABORATORY SERVICES Bilirubin, Total 1.1 <1.4 mg/dl [facility] LABORATORY SERVICES Specimen Blood specimen (specimen) - Blood Performing Organization Address [facility]/ZIP Code Phon e Number [facility] LABORATORY [address] [place] [address] SERVICES ALKALINE PHOSPHATASE (09/04/2015 3:18 EDT) Pathologist Sig nature Total Alkaline 85 38 - 126 U/L [facility] Phosphatase LABORATORY SERVICES Specimen Blood specimen (specimen) - Blood Performing Organization Address City/[facility]/ZIP Code Phon e Number [facility] LABORATORY [address] [place] [address] SERVICES PHOSPHORUS (09/04/2015 3:18 EDT) Pathologist Sig nature Phosphorus 2.5 2.5 - 4.5 mg/dl [facility] LABORA TORY SERVICES Specimen Blood specimen (specimen) - Blood Performing Organization Address [facility]/ZIP Code Phon e Number [facility] LABORATORY [address] [place] [address] SERVICES MAGNESIUM (09/04/2015 3:18 EDT) Pathologist Sig nature Magnesium 1.7 1.7 - 2.8 mg/dl [facility] LABORA TORY SERVICES Specimen Blood specimen (specimen) - Blood Performing Organization Address [facility]/ZIP Code Phon e Number [facility] LABORATORY [address] [place] [address] SERVICES (ABNORMAL) ALT (09/04/2015 3:18 EDT) Pathologist Sig nature ALT 68 (H) <53 U/L [facility] LABORATOR Y SERVICES Specimen Blood specimen (specimen) - Blood Performing Organization Address [facility] Phon e Number [facility] LABORATORY [address] [place] [address] SERVICES (ABNORMAL) AST (09/04/2015 3:18 EDT) Pathologist Sig nature AST 73 (H) 15 - 46 U/L [facility] LABORATOR Y SERVICES Specimen Blood specimen (specimen) - Blood Performing Organization Address [facility] Phon e Number [facility] LABORATORY [address] [place] [address] SERVICES BUN (09/04/2015 3:18 EDT) Pathologist Sig nature BUN 16 10 - 26 mg/dl [facility] LABORATO RY SERVICES Specimen Blood specimen (specimen) - Blood Performing Organization Address [facility] Phon e Number [facility] LABORATORY [address] [place] [address] SERVICES CREATININE (09/04/2015 3:18 EDT) Creatinine 0.82 0.52 - 1.04 [facility] mg/dl LABORATORY SERVICES GFR, Calculated 72 >60 [facility] Comment: ml/min/1.73m2 LABORATORY eGFR calculated using CKD-EPI equation for SERVICES non Americans. Multiply eGFR by 1.16 for Americans. Specimen Blood specimen (specimen) - Blood Performing Organization Address City/[facility]/[place]IP [facility] [place] e Number [facility] LABORATORY [address] [place] [address] SERVICES (ABNORMAL) CALCIUM, IONIZED (09/04/2015 3:18 EDT) Pathologist Sig nature Calcium, Ionized 0.96 (L) 1.12 - 1.32 [facility] mmol/L LABORATORY SERVICES Specimen Blood specimen (specimen) - Blood Performing Organization Address [facility]/ZIP [facility] Phon e Number [facility] LABORATORY [address] [place] [address] SERVICES (ABNORMAL) ELECTROLYTES (09/04/2015 3:18 EDT) Pathologist Sig nature Sodium 142 136 - 145 mEq/L [facility] LABORA TORY SERVICES Potassium 3.8 3.5 - 5.0 mEq/L [facility] LABORA TORY SERVICES Chloride 111 (H) 96 - 110 mEq/L [facility] LABORAT ORY SERVICES CO2 21 (L) 24 - 32 mEq/L [facility] LABORATO RY SERVICES Specimen Blood specimen (specimen) - Blood Performing Organization Address City/State/ZIP Code Phon e Number [facility] LABORATORY [address] [place] [address] SERVICES (ABNORMAL) HEMAGRAM AND DIFFERENTIAL (09/04/2015 3:18 EDT) Pathologist Sig nature WBC 23.58 (H) 4.0 - 12.4 K/cmm [facility] LABORATORY SERVICES RBC 3.47 (L) 3.86 - 5.04 [facility] M/[facility] LABORATORY SERVICES Hemoglobin 10.4 (L) 11.6 - 15.2 [facility] gm/dl LABORATORY SERVICES HCT 31.8 (L) 34.9 - 44.4 % [facility] LABORATORY SERVICES MCV 92 81 - 98 fl [facility] LABORATORY SERVICES MCH 30.0 26.7 - 33.3 pg [facility] LABORATORY SERVICES MCHC 32.7 32.1 - 35.9 [facility] gm/dl LABORATORY SERVICES RDW-CV 15.1 (H) 11.7 - 14.6 % [facility] LABORATORY SERVICES RDW-SD 50.3 37.6 - 50.3 fl [facility] LABORATORY SERVICES PLT 110 (L) 141 - 377 K/cmm [facility] LABORATORY SERVICES MPV 10.3 9.5 - 12.7 fl [facility] LABORATORY SERVICES Neutrophils 79.0 % [facility] LABORATORY SERVICES Bands 18.0 % [facility] LABORATORY SERVICES Monocytes 3.0 % [facility] LABORATORY SERVICES ABS Neutrophils 18.63 (H) 2.20 - 8.85 [facility] K/cmm LABORATORY SERVICES ABS Bands 4.24 [facility] ABS Monocytes 0.71 0.1 - 0.8 K/[facility] LABORATORY SERVICES Toxic Granulation Present [facility] LABORATORY SERVICES Type of Diff: Manual [facility] LABORATORY SERVICES Specimen Blood specimen (specimen) - Blood Performing Organization Address City/[facility]/ZIP Code Phon e Number [facility] LABORATORY [address] [place] [address] SERVICES (ABNORMAL) TROPONIN I (09/04/2015 1:42 EDT) Pathologist Sig nature Troponin I (ng/mL) 0.330 (H) <0.034 ng/ml [facility] LABORATORY SERVICES Specimen Blood specimen (specimen) - Blood Performing Organization Address City/[facility]/ZIP Code Phon e Number [facility] LABORATORY [address] [place] [address] SERVICES LACTIC ACID (09/04/2015 1:42 EDT) Pathologist Sig nature Lactic Acid 1.3 <2.0 mmol/L [facility] LABORATOR Y SERVICES Specimen Blood specimen (specimen) - Blood Performing Organization Address [facility]/ZIP Code Phon e Number [facility] LABORATORY [address] [place] [address] SERVICES EKG 12-LEAD (09/03/2015 21:06 EDT) Specimen Narrative [facility] EKG - 09/04/2015 11:5 5 EDT ? [facility] ? Test Date: ?2015-09-03 Pat Name: ? JOY CUNHA ?Department: ?? COTE 3 ? Room: ? M326 Gender: ? F ?Youth Manager: ?? [id number] : ?1940 ? Requested By: ELISHA ALEMAN Order Number: [id number] ? Reading : ?? ANNELISE CASTILLO MD ? Measurements Intervals ?[place] ? Rate: ? 95 ? P: ?-7 MT: ? 202 ?QRS: ?-14 QRSD: ? 93 [...] Name: JOY CUNHA Department: [place] [facility] [place]: F Youth Manager: [id number] : 1940 Requested By: ELISHA ALEMAN Order Number: [id number] Reading MD: Merrill CASTILLO MD Measurements Intervals [place] Rate: 95 P: -7 MT: 202 QRS: -14 QRSD: 93 T: 31 [...] by ANNELISE CASTILLO MD. Performing Organization Address City/[facility]/ZIP Code Phon e Number [facility] EKG (ABNORMAL) TROPONIN I (09/03/2015 19:30 EDT) Pathologist Sig nature Troponin I (ng/mL) 0.334 (H) <0.034 ng/ml [facility] LABORATORY SERVICES Specimen Blood specimen (specimen) - Blood Performing Organization Address [facility]/ZIP Code Phon e Number [facility] LABORATORY [address] [place] [address] SERVICES LACTIC ACID (09/03/2015 19:30 EDT) Pathologist Sig nature Lactic Acid 1.4 <2.0 mmol/L [facility] LABORATOR Y SERVICES Specimen Blood specimen (specimen) - Blood Performing Organization Address [facility]/ZIP Code Phon e Number [facility] LABORATORY [address] [place] [address] SERVICES PORTABLE CHEST 1 VIEW (09/03/2015 17:02 EDT) Anatomical Region Laterality Modality Other Specimen Narrative [facility] RADIOLOGY MAIN CAMPUS - 09/03/2015 17:15 [...] Organization Address City/State/ZIP Code Phon e Number [facility] RADIOLOGY MAIN CAMPUS RAD US ABDOMEN ONE ORGAN/QUADRANT (09/03/2015 14:34 EDT) Anatomical Region Laterality Modality Other Specimen Narrative [facility] RADIOLOGY MAIN CAMPUS - 09/03/2015 16:17 EDT RAD US ABDOMEN ONE ORGAN/QUADRANT ??09/03/2015 2:34 PM Signs and Symptoms/Comments: abdominal p ain Comparison: CT abdomen/pelvis performed 7 hours prior and [facility]. Technique: Grayscale and limited Doppler ultrasound evaluation [...] No pericholecys tic fluid is identified. Per element burner's report, while there is no focal tenderness [...] CT abdomen/pelvis performed 7 hours prior and [facility]. Technique: Grayscale and limited Doppler ultrasound evaluation [...] No pericholecys tic fluid is identified. Per element burner's report, while there is no focal tenderness [...] Organization Address City/State/ZIP Code Phon e Number [facility] RADIOLOGY MAIN CAMPUS MRSA PCR (09/03/2015 13:48 EDT) Specimen Nasal [facility] LABORATORY SERVICES Result No Staphylococcus [facility] aureus detected by CENTER LABORATORY PCR. SERVICES Specimen Other Performing Organization Address City/State/ZIP Code Phon e Number [facility] LABORATORY [address] [place] [address] SERVICES [address] BODY [address] (09/03/2015 13:23 EDT) Anatomical Region Laterality Modality Other Specimen Narrative [facility] RADIOLOGY MAIN CAMPUS - 09/03/2015 16:57 EDT [address] BODY [address] ??09/03/2015 1:23 PM Signs and Symptoms/Comments: ?? Clinical Presentation Inconsistent with Outside Imaging Interpretation; minimal abdominal pain, OSH report with concern for appedicitis and cholecytitis, phelgmon, ? drainable collection Technique: CT of the abdomen and pelvis was performed at [facility]. Secondary interpretation is performed at the request [...] the abdomen and pelvis was performed at [facility]. Secondary interpretation is performed at the request [...] Organization Address City/State/ZIP Code Phon e Number [facility] RADIOLOGY MAIN CAMPUS INPATIENT ADD-ON (09/03/2015 13:15 EDT) Pathologist Sig nature Tests to be added ALT,AST,TOTAL [facility] BILI,LIPASE,ALK LABORATORY SERVICES PHOS Number for problems [id number] [facility] LABORATORY SERVICES Accession number [id number] [facility] LABORATORY SERVICES Specimen Other Performing Organization Address City/State/ZIP Code Phon e Number [facility] LABORATORY [address] [place] [id number] SERVICES [facility] 12-LEAD (09/03/2015 13:10 EDT) Specimen Narrative [facility] - 09/04/2015 11:5 5 EDT ?[facility] Emergency ? Test Date: ?2015-09-03 Pat Name: ? JOY CUNHA ?Department: ?? ED ? Room: ? AC10 Gender: ? F ?Youth Manager: ?? [id number] : ?1940 ? Requested By: AVNI Putnam Order Number: [id number] ? Reading MD: ?? ANNELISE CAPELESS MD ? Measurements Intervals ?[place] ? Rate: ? 86 ? P: ?21 MT: ? 220 ?QRS: ?-19 QRSD: ? 102 [...] Note Annelise Castillo MD - 09/04/2015 [facility] Emergency Test Date: 2015-09-03 Pat Name: JOY CUNHA Department: ED Room: [facility] Gender: F Youth Manager: [id number] : 1940 Requested By: AVNI Putnam Order Number: [id number] Azeem MD: Merrill CASTILLO MD Measurements Intervals [place] Rate: 86 P: 21 MT: 220 QRS: -19 QRSD: 102 T: 30 [...] Organization Address City/State/ZIP Code Phon e Number [facility] EKG ED/URGENT CARE ADD-ON (09/03/2015 12:25 EDT) Pathologist Sig nature Tests to be added LIPASE [facility] LABORATORY SERVICES Number for problems [id number] (ED) [facility] LABORATORY SERVICES Specimen Other Performing Organization Address [facility]/ZIP Code Phon e Number [facility] LABORATORY [address] [place] [address] SERVICES ED/URGENT CARE ADD-ON (09/03/2015 12:25 EDT) Pathologist Sig nature Tests to be added TSH [facility] LABORATORY SERVICES Number for problems [id number] (ED) [facility] LABORATORY SERVICES Specimen Other Performing Organization Address [facility] Phon e Number [facility] LABORATORY [address] [place] [address] SERVICES ED/URGENT CARE ADD-ON (09/03/2015 12:20 EDT) Pathologist Sig nature Tests to be added TROPONIN 1 [facility] LABORATORY SERVICES Number for problems [id number] (ED) [facility] LABORATORY SERVICES Specimen Other Performing Organization Address [facility] Phon e Number [facility] LABORATORY [address] [place] [address] SERVICES BILIRUBIN, TOTAL (09/03/2015 11:55 EDT) Pathologist Sig nature Bilirubin, Total 1.1 <1.4 mg/dl [facility] LABOR ATORY SERVICES Specimen Blood Performing Organization Address [facility] Phon e Number [facility] LABORATORY [address] [place] [address] SERVICES (ABNORMAL) AST (09/03/2015 11:55 EDT) Pathologist Sig nature AST 116 (H) 15 - 46 U/L [facility] LABORATOR Y SERVICES Specimen Blood Performing Organization Address [facility] Phon e Number [facility] LABORATORY [address] [place] [address] SERVICES (ABNORMAL) ALT (09/03/2015 11:55 EDT) Pathologist Sig nature ALT 78 (H) <53 U/L [facility] LABORATOR Y SERVICES Specimen Blood Performing Organization Address City/[facility]/ZIP [facility] [place] e Number [facility] LABORATORY [address] [place] [address] SERVICES ALKALINE PHOSPHATASE (09/03/2015 11:55 EDT) Pathologist Sig nature Total Alkaline 97 38 - 126 U/L [facility] Phosphatase LABORATORY SERVICES Specimen Blood Performing Organization Address City/State/ZIP Code Phon e Number [facility] LABORATORY [address] [place] [address] SERVICES (ABNORMAL) TSH (09/03/2015 11:55 EDT) Pathologist Sig nature TSH 0.14 (L) 0.55 - 4.78 uIU/ml [facility] LABORATORY SERVICES Specimen Blood Performing Organization Address City/[facility]/ZIP Code Phon e Number [facility] LABORATORY [address] [place] [address] SERVICES LIPASE (09/03/2015 11:55 EDT) Pathologist Sig nature Lipase 31 <251 U/L [facility] LABORATOR Y SERVICES Specimen Blood Performing Organization Address City/[facility]/ZIP Code Phon e Number [facility] LABORATORY [address] [place] [address] SERVICES (ABNORMAL) TROPONIN I (09/03/2015 11:55 EDT) Pathologist Sig nature Troponin I (ng/mL) 0.073 (H) <0.034 ng/ml [facility] LABORATORY SERVICES Specimen Blood Performing Organization Address City/State/ZIP Code Phon e Number [facility] LABORATORY [address] [place] [address] SERVICES (ABNORMAL) LACTIC ACID (09/03/2015 11:55 EDT) Pathologist Sig nature Lactic Acid 3.2 (HH) <2.0 mmol/L [facility] LABORATOR Y SERVICES Specimen Blood specimen (specimen) - Blood Performing Organization Address City/State/ZIP Code Phon e Number [facility] LABORATORY [address] [place] [address] SERVICES (ABNORMAL) HEMAGRAM AND DIFFERENTIAL (09/03/2015 11:55 EDT) WBC 23.44 (H) 4.0 - 12.4 [facility] K/cmm [facility] LABORATORY SERVICES RBC 4.00 3.86 - 5.04 [facility] M/[facility] LABORATORY SERVICES Hemoglobin 11.8 11.6 - 15.2 [facility] gm/dl [facility] LABORATORY SERVICES HCT 36.9 34.9 - 44.4 [facility] LABORATORY SERVICES MCV 92 81 - 98 fl [facility] LABORATORY SERVICES MCH 29.5 26.7 - 33.3 [facility] LABORATORY SERVICES MCHC 32.0 (L) 32.1 - 35.9 [facility] gm/dl [place] LABORATORY SERVICES RDW-CV 14.6 11.7 - 14.6 [facility] LABORATORY SERVICES RDW-SD 49.4 37.6 - 50.3 [facility] LABORATORY SERVICES PLT 139 (L) 141 - 377 [facility] LABORATORY SERVICES MPV 10.2 9.5 - 12.7 [facility] LABORATORY SERVICES Neutrophils 76.0 % [facility] LABORATORY SERVICES Bands 13.0 % [facility] LABORATORY SERVICES Lymphocytes 3.0 % [facility] LABORATORY SERVICES Monocytes 1.0 % [facility] LABORATORY SERVICES Metamyelocytes 7.0 % [facility] LABORATORY SERVICES ABS Neutrophils 17.82 (H) 2.20 - 8.85 [facility] LABORATORY SERVICES ABS Bands 3.05 K/[facility] LABORATORY SERVICES ABS Lymphs 0.70 (L) 1.09 - 3.30 [facility] LABORATORY SERVICES ABS Monocytes 0.23 0.1 - 0.8 [facility] LABORATORY SERVICES ABS Metamyelocytes 1.64 K/[facility] LABORATORY SERVICES Differential Comment Rev'd by [facility] LABORATORY SERVICES Toxic Granulation Present [facility] LABORATORY SERVICES Type of Diff: Manual [facility] LABORATORY SERVICES Specimen Blood specimen (specimen) - Blood Performing Organization Address City/State/ZIP Code Phon e Number [facility] LABORATORY [address] [place] [address] SERVICES (ABNORMAL) BASIC METABOLIC PANEL (09/03/2015 11:55 EDT) Sodium 145 136 - 145 [facility] mEq/L LABORATORY SERVICES Potassium 3.3 (L) 3.5 - 5.0 [facility] mEq/L LABORATORY SERVICES Chloride 113 (H) 96 - 110 [facility] mEq/L LABORATORY SERVICES CO2 20 (L) 24 - 32 mEq/L [facility] LABORATORY SERVICES BUN 17 10 - 26 mg/dl [facility] LABORATORY SERVICES Creatinine 0.93 0.52 - 1.04 [facility] mg/dl LABORATORY SERVICES GFR, Calculated 62 >60 [facility] Comment: ml/min/1.73m2 LABORATORY eGFR calculated using CKD-EPI equation for SERVICES non Americans. Multiply eGFR by 1.16 for Americans. Calcium 7.4 (L) 8.5 - 10.5 [facility] mg/dl LABORATORY SERVICES Calculated Calcium 9.2 8.5 - 10.5 [facility] mg/dl LABORATORY SERVICES Glucose, Serum 109 (H) 70 - 100 [facility] mg/dl LABORATORY SERVICES Fasting? Unknown [facility] LABORATORY SERVICES Specimen Blood specimen (specimen) - Blood Performing Organization Address City/State/ZIP Code Phon e Number [facility] LABORATORY [address] [place] [address] SERVICES documented in this encounter Visit Diagnoses [...] PRN, Starting on Tue09/03/15 at 1310, Until [place] 09/07/15 at 1553, Nausea, Vomiting, Routine oxybutynin [...] Count Last Ordered Date First Ordered Date JAED CATHETER - DISCONTINUE 1 09/05/2015 REMOVE ARTERIAL [...] 09/07/2015 documented in this encounter Care Teams Cash Applications Manager Relationship Specialty Start Date End Date Jodi Camp MD PCP - General 09/03/15 12/22/[address] [id number] documented as of this encounter
--- OUTSIDE RECORDS SUMMARY | 2021-12-04 01:42 | XMS_ITS | Encounter Summary ---
:1940 Author Organization [facility] Address [address] [place] [address] Care Team Providers Name Role Phone Fabiano Aranda MD Primary Care Provider Encounter Details Date Type Department Care Team Description 02/23/2010 Hospital Encounter [facility] Steffen Severino Family history of - [facility] MD Dixon genetic disease 111 [facility] [address] [place] [place] [id number] [place] [address] Pavili, Level 2 [place] [address] Social History Tobacco Use Types [...] Specimen Blood [facility] Specimen ID [id number] [facility] Order Date 24 Feb [...] based on GenBank ? accession number; [place] [id number]. ? 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 The [...] donors will interfere ? with testing. Call [facility] for ? instructions for testing pat ients who have received a bone ? marrow transplant. ? This test was developed and its performance characteristics ? determined by Laboratory Med icine and Pathology, [facility]. This test has not be en cleared or approved by the ? U.S. Food and Drug Administr ation. ? Reviewed By PANDA Silva MD ? LAB Release Date 09 Mar 2010 10:28 [facility] Performed or Referred by: [facility] Dpt of Lab Med and Path, [address] ?? , [place] [address], Lab Dir: Myles gandhi III, MD Specimen Blood specimen (specimen) Performing Organization Address City/State/ZIP Code Phon e Number [facility] [address] [place] [address] SERVICES [facility] [address] [place] [address] documented in this encounter Visit Diagnoses Diagnosis Family history of genetic disease Family history of other condition documented in this encounter Care Teams Food And Beverage Attendant Relationship Specialty Start Date End Date Fabiano Aranda MD PCP - General 02/20/10 09/02/[address] [place] [address] [address] [place] [address] documented as of this encounter
--- OUTSIDE RECORDS SUMMARY | 2021-12-04 01:42 | XMS_ITS | Encounter Summary ---
:[address] [facility] Address [address] [place] [address] Care Team Providers Name Role Phone Fabiano Aranda MD Primary Care Provider Reason for Visit Reason Comments Genetic Evaluation Encounter Details Date Type Department Care Team Description 02/23/2010 Office Visit [facility] Steffen Severino; Hematology & MD Dixon Family history of polyps in the colon Oncology - [address] [address] [address], [place] [phone] (Wo rk) Social History Tobacco Use Types [...] Oncology Attending - Steffen Severino MD - [facility] Job ID: SM Doc ID: [id number] Ext Doc ID: [id number] cc: MS Fabiano Sin MD documented in this encounter Care Teams Licensed Customs Broker Relationship Specialty Start Date End Date Fabiano Aranda MD PCP - General 02/20/10 09/02/[address] [place] [address] [address] [place] [address] documented as of this encounter
--- OUTSIDE RECORDS SUMMARY | 2021-12-04 01:42 | XMS_ITS | Encounter Summary ---
:1940 Author Organization [facility] Address [address] [place] [address] Care Team Providers Name Role Phone Fabiano Aranda MD Primary Care Provider Reason for Visit Reason Onset Date Comments Results 03/16/2010 Encounter Details Date Type Department Care Team Description 03/16/2010 Telephone [email or web address] Lino Ashton MS Results Hematology & Oncology - [address] [place] [address] [address] [place] [address] [phone] Social History Tobacco Use Types Packs/Day Years [...] on filedocumented in this encounter Care Teams Cable Splicer Relationship Specialty Start Date End Date Fabiano Aranda MD PCP - General 02/20/10 09/02/[address] [place] [address] [address] [place] [address] documented as of this encounter
--- OUTSIDE RECORDS SUMMARY | 2021-12-04 01:42 | XMS_ITS | Encounter Summary ---
:1940 Author Organization [facility] Address [address] [place] [address] Care Team Providers Name Role Phone Unavailable Primary Care Provider Unavailable Encounter Details Date Type Department Care Team Description 11/21/2007 Before PRISM Converted [facility] Unknown, Visit ([place]) Adult Primary Care - Provider, Merrill Palencia [place] [phone] 1 [facility] (Work) [place] [address] Social History Tobacco Use Types Packs/Day Years [...] ALL EN ? LAB Reports generated via [employer] interface contain original data; ? however they are lacking the format of the original report. ? Caution should be taken when reading/interpreting unformatted reports. ? Name: ? ADRIANAANGEL JOY Momin ? Accession #: ? [id number] ? : ? 1940 (Age: 67) ??F [...] [facility] [address] [place] [address] SERVICES [facility] [address] [place] [address] documented in this encounter Visit Diagnoses Not on filedocumented in this encounter
--- OUTSIDE RECORDS SUMMARY | 2021-12-04 01:42 | XMS_ITS | Encounter Summary ---
:1940 Author Organization [facility] Address [address] [place] [address] Care Team Providers Name Role Phone Unavailable Primary Care Provider Unavailable Encounter Details Date Type Department Care Team Description 11/23/2007 Before PRISM Converted [facility] Unknown, Visit ([place]) Adult Primary Care - Provider, Merrill Palencia [place] [phone] 1 [facility] (Work) [place] [address] Social History Tobacco Use Types Packs/Day Years [...] Organization Address City/State/ZIP Code Phon e Number [facility] [address] [place] [address] SERVICES [facility] [address] [place] [address] documented in this encounter Visit Diagnoses Not on filedocumented in this encounter
--- OUTSIDE RECORDS SUMMARY | 2021-12-04 01:42 | XMS_ITS | Encounter Summary ---
:1940 Author Organization [facility] Address [address] [place] [address] Care Team Providers Name Role Phone Unavailable Primary Care Provider Unavailable Encounter Details Date Type Department Care Team Description 12/14/1999 Hospital Encounter [facility] - Ethel Castro MD [address] [place] [address] [address] [place] [address] Other Unknown, Provider, [address] [place] [address] Social History Tobacco Use Types Packs/Day Years [...] JOY CUNHA ? Accession #: ? [id number] : ? 1940 (Age: 59) ??F ?Collect [...] Address City/State/ZIP Code Phon e Number [facility] [address] [place] [address] SERVICES [facility] [address] [place] [address] documented in this encounter Visit Diagnoses Not on filedocumented in this encounter
--- OUTSIDE RECORDS SUMMARY | 2021-12-04 01:42 | XMS_ITS | Encounter Summary ---
:1940 Author Organization [facility] Address [address] [place] [address] Care Team Providers Name Role Phone Fabiano Aranda MD Primary Care Provider Encounter Details Date Type Department Care Team Description 02/23/2010 Orders Only [facility] Lino Ashton MS Family history of Hematology & Oncology 112 [facility] [place] [place] [address] (Primary Dx) 111 [place] [address] [phone] Social History Tobacco Use Types Packs/Day Years Used Date Never Assessed Sex Assigned at Date Recorded Not on file documented as of this encounter Plan of Treatment Not on filedocumented as of this encounter Results FAP KNOWN MUTATION (02/23/2010 15:46 EST) Specimen Blood [facility] Specimen ID [id number] [facility] Order Date 24 Feb [...] based on GenBank ? accession number; [id number]. ? 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 The [...] donors will interfere ? with testing. Call [facility] for ? instructions for testing pat ients who have received a bone ? marrow transplant. ? This test was developed and its performance characteristics ? determined by Laboratory Med icine and Pathology, [facility]. This test has not be en cleared or approved by the ? U.S. Food and Drug Administr ation. ? Reviewed By PANDA Silva MD ? LAB Release Date 09 Mar 2010 10:28 [facility] Performed or Referred by: [facility] Dpt of Lab Med and Path, [address] ?? [place] [address], Lab Dir: Myles gandhi III, MD Specimen Blood specimen (specimen) Performing Organization Address City/State/ZIP Code Phon e Number [facility] [address] [place] [address] SERVICES [facility] [address] [place] [address] documented in this encounter Visit Diagnoses Diagnosis Family history of genetic disease - Prim marycruz Family history of other condition documented in this encounter Care Teams Loom Mechanic Relationship Specialty Start Date End Date Fabiano Aranda MD PCP - General 02/20/10 09/02/[address] [place] [address] [address] [place] [address] documented as of this encounter
[2021-12-04 08:13] LABS: Abs Immature Grans 0.02 10^3/uL (0.0-0.06); Absolute Basophil Count 0.05 10^3/uL (0.0-0.2); Absolute Eosinophil Count 0.13 10^3/uL (0.0-0.7); Absolute Lymphocyte Count 0.98 10^3/uL (1.2-3.4); Absolute Monocyte Count 0.99 10^3/uL (0.1-0.8); Absolute Neutrophil Count 2.99 10^3/uL (1.2-6.7); Eosinophils % 2.5; HCT 35.9 % (36.0-46.0); HGB 11.9 g/dL (11.2-15.7); Immature Grans % 0.4; MCHC 33.1 % (32.0-36.0); MCV 99 fL (80-95); MPV 9.4 fL (8.0-11.0); Monocytes % 19.2; Neutrophils % 57.9; Platelet Count 172 10^3/uL (130-400); RBC 3.61 10^6/uL (3.93-5.22); RDW 16.5 % (11.7-14.6); WBC 5.16 10^3/uL (4.4-10.8)
[2021-12-04] MEDS: Normal Saline Flush 10 ML SYR IVP (08:18)
[2021-12-04 08:31] LABS: ALT 34 U/L (14-59); AST 36 U/L (15-37); Albumin 2.7 g/dL (3.4-5.0); Alkaline Phosphatase 131 U/L (46-116); Anion Gap 6.6 mmol/L (3-11); BUN 13 mg/dL (7-18); Bilirubin, Total 0.8 mg/dL (0.2-1.0); CO2 27.4 mmol/L (21.0-32.0); CREATININE 0.9 mg/dL (0.55-1.02); Calcium 8.8 mg/dL (8.5-10.1); Chloride 105 mmol/L (98-107); Estimated GFR 65.03 (mL/min/1.73m2); Glucose 151 mg/dL (74-106); Potassium 3.8 mmol/L (3.5-5.1); Sodium 139 mmol/L (136-145); Total Protein 7.2 g/dL (6.4-8.2)
[2021-12-04 18:32] LABS: CEA 3.1 ng/mL (See Note)
[2021-12-18] MEDS: Normal Saline Flush 10 ML SYR IVP (13:08)
[2021-12-18 13:17] LABS: Abs Immature Grans 0.01 10^3/uL (0.0-0.06); Absolute Basophil Count 0.05 10^3/uL (0.0-0.2); Absolute Eosinophil Count 0.18 10^3/uL (0.0-0.7); Absolute Monocyte Count 0.74 10^3/uL (0.1-0.8); Absolute Neutrophil Count 2.66 10^3/uL (1.2-6.7); Basophils % 0.9; Eosinophils % 3.4; HCT 36.4 % (36.0-46.0); HGB 11.7 g/dL (11.2-15.7); Immature Grans % 0.2; Lymphocytes % 31.8; MCH 32.9 pg (27.0-33.0); MCHC 32.1 % (32.0-36.0); MCV 102 fL (80-95); MPV 9.4 fL (8.0-11.0); Monocytes % 13.9; Neutrophils % 49.8; Platelet Count 230 10^3/uL (130-400); RBC 3.56 10^6/uL (3.93-5.22); RDW-SD 60.9 fL; WBC 5.34 10^3/uL (4.4-10.8)
[2021-12-18 13:51] LABS: ALT 32 U/L (14-59); AST 23 U/L (15-37); Alkaline Phosphatase 116 U/L (46-116); Anion Gap 7.4 mmol/L (3-11); BUN 14 mg/dL (7-18); Bilirubin, Total 0.4 mg/dL (0.2-1.0); CO2 29.6 mmol/L (21.0-32.0); CREATININE 0.8 mg/dL (0.55-1.02); Calcium 9.6 mg/dL (8.5-10.1); Chloride 106 mmol/L (98-107); Glucose 114 mg/dL (74-106); Potassium 3.8 mmol/L (3.5-5.1); Sodium 143 mmol/L (136-145); Total Protein 7.2 g/dL (6.4-8.2)
[2021-12-21 07:53] LABS: CEA 3.8 ng/mL (See Note)
[2022-01-01] MEDS: Normal Saline Flush 10 ML SYR IVP (08:05)
[2022-01-01 08:10] LABS: Abs Immature Grans 0.01 10^3/uL (0.0-0.06); Absolute Basophil Count 0.04 10^3/uL (0.0-0.2); Absolute Eosinophil Count 0.16 10^3/uL (0.0-0.7); Absolute Lymphocyte Count 1.11 10^3/uL (1.2-3.4); Absolute Monocyte Count 0.59 10^3/uL (0.1-0.8); Absolute Neutrophil Count 3.99 10^3/uL (1.2-6.7); Basophils % 0.7; Eosinophils % 2.7; HCT 36.1 % (36.0-46.0); HGB 11.8 g/dL (11.2-15.7); Immature Grans % 0.2; Lymphocytes % 18.8; MCH 33.6 pg (27.0-33.0); MCHC 32.7 % (32.0-36.0); MCV 103 fL (80-95); MPV 9.8 fL (8.0-11.0); Neutrophils % 67.6; Platelet Count 144 10^3/uL (130-400); RBC 3.51 10^6/uL (3.93-5.22); RDW 15.9 % (11.7-14.6); RDW-SD 59.8 fL
[2022-01-01 08:26] LABS: ALT 26 U/L (14-59); AST 30 U/L (15-37); Alkaline Phosphatase 113 U/L (46-116); Anion Gap 7.9 mmol/L (3-11); BUN 13 mg/dL (7-18); Bilirubin, Total 0.3 mg/dL (0.2-1.0); CO2 28.1 mmol/L (21.0-32.0); CREATININE 0.8 mg/dL (0.55-1.02); Calcium 9.1 mg/dL (8.5-10.1); Chloride 107 mmol/L (98-107); Glucose 124 mg/dL (74-106); Potassium 3.5 mmol/L (3.5-5.1); Sodium 143 mmol/L (136-145); Total Protein 6.8 g/dL (6.4-8.2)
[2022-01-01 19:39] LABS: CEA 4.2 ng/mL (See Note)
== END 2022-01-01 23:59 | disposition home or self-care (01) ==
LOC: INF 01:02
PROVIDERS: Visit Provider Internal Medicine Hematology & Oncology
DX: C18.9 Malignant neoplasm of colon, unspecified (principal); Z45.2 Encounter for adjustment and management of vascular access device
CPT/HCPCS: 36591; 80053; 82378; 85025

== ENCOUNTER 2022-01-29 01:20 | Outpatient (RCR) | payer MEDICARE, SELFPAY ==
--- OUTSIDE RECORDS SUMMARY | 2022-01-29 01:32 | XMS_ITS | Encounter Summary ---
:1940 Author Organization [place] [address] Care Team Providers Name Role Phone None Primary Care Provider Unavailable Encounter Details Date Type Department Care Team Description 11/20/2021 Orders Only Hematology and Michael Romero, Protein -calorie Oncology at [facility] malnutrition, [facility] uns pecified severity [place] [address] ONCOLOGY [phone] [place], [place] [address] Social History Tobacco Use Types Packs/Day Years Used Date Never Smoker Smokeless Tobacco: Never Used Sex Assigned at Date Recorded Not on file documented as of this encounter Plan of Treatment Upcoming Encounters Date Type Specialty Care Team Description 01/29/2022 Office Visit Hematology and Oncology Michael Romero MD [facility] [place] [address] MEDICAL ONCOLOGY [place], [place] [id number] 01/29/2022 Infusion Hematology and Oncology 02/12/2022 Office Visit Hematology and Oncology Michael Romero MD [facility] [place] [address] Mckenna Farris [address] MEDICAL ONCOLOGY [place], [place] [phone] 02/12/2022 Infusion Hematology and Oncology 02/26/2022 Office Visit Hematology and Oncology Michael Romero MD [facility] ONCOLOGY [place], [place] [address] (Wo rk) 02/26/2022 Infusion Hematology and Oncology documented as of this encounter Visit Diagnoses Diagnosis Protein-calorie malnutrition, unspecifie d severity documented in this encounter Care Teams Lithopone Mill Worker Relationship Specialty Start Date End Date None PCP - General 12/03/19 None documented as of this encounter
--- OUTSIDE RECORDS SUMMARY | 2022-01-29 01:32 | XMS_ITS | Encounter Summary ---
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 metastasis to other site [address] [place] [phone] Social History Tobacco Use Types Packs/Day Years Used Date Never Smoker Smokeless Tobacco: Never Used Sex Assigned at Date Recorded Not on file documented as of this encounter Progress Notes Curry Arechiga RN - 01/01/2022 9:30 AM EDT INFUSION THERAPY ADMINISTRATION NOTES DIAGNOSIS: colon cancer CYCLE #15: Day 1 REASON FOR VISIT: 5FU/leucovorin SUBJECTIVE Joy Armstrong offers no complaints. She was seen by provider in clinic. OBJECTIVE LAB DATA: Labs done today at [facility] reviewed and found adequate for treatment. IV ACCESS: Implanted port Pre administration: Chemotherapy orders independently verified for drug name, route, and dosage per patient's height, weight and BSA by Curry Arechiga RN and On-site pharmacist. HOME INFUSION - Connect Fluorouracil (5-FU) DOSE: 2244 mg over 46 hours RATE: 3 mL/hr ROUTE: IV Port START TIME: 1057 Chemotherapy safety checks performed per protocol with Lori Arthur RN. Drug amount infused verified by RN double check after approximately 15 minutes and appropriate amount had infused. Anticipated date/time of disconnect: 01/03/22 @ 0857 Plan for disconnect: does at home -- kit given to pt REACTIONS (DESCRIPTION, TIME, INTERVENTION AND EFFECTIVENESS) none ASSESSMENT Joy Armstrong was awake, alert and he tolerated treatment well. PLAN Return to clinic in 2 weeks. documented in this encounter Plan of Treatment Upcoming Encounters Date Type Specialty Care Team Description 01/29/2022 Office Visit Hematology and Oncology Michael Romero MD [facility] [place] [address] ONCOLOGY [place], [place] [address] 01/29/2022 Infusion Hematology and Oncology 02/12/2022 Office Visit Hematology and Oncology Michael Romero MD [facility] [place] [address] ONCOLOGY [place], [place] [address] 02/12/2022 Infusion Hematology and Oncology 02/26/2022 Office Visit Hematology and Oncology Michael Romero MD [facility] [address] [place] [place], [place] [address] (Wo rk) 02/26/2022 Infusion Hematology and Oncology documented as of this encounter Visit Diagnoses Diagnosis Primary colon cancer with metastasis to other site documented in this encounter Administered Medications Inactive Administered Medications - up to 3 most recent administrations Medication Order MAR Action Action Date Dose Rate Site dexAMETHasone (Decadron) tablet 10 Given 01/01/2022 9:49 AM EDT 10 mg mg 10 mg, Oral, ONCE, 1 dose, On Tue01/01/22 at 1000, Administer prior to chemotherapy, Routine fluorouraciL (ADRUCIL) chemo Given 01/01/2022 10:49 AM EDT 249 m g 59.8 mL/hr injection 249 mg 249 mg (rounded from 249.3333 mg = 133.3333 mg/m2/dose ? 1.87 m2 Treatment Plan BSA from Recorded weight), Intravenous, ONCE, 1 dose, On Tue01/01/22 at 1100, Administer over 5 Minutes, Warning Vesicant/Irritant Medication fluorouraciL (AdruciL) in sodium Given 01/01/2022 10:57 AM EDT 2 ,244 mg 3 mL/hr chloride 0.9% 138 mL infusion (46 Hour - For Home Use) 2,244 mg 2,244 mg (1,200 mg/m2/dose ? 1.87 m2 Treatment Plan BSA from Recorded weight), Intravenous, ONCE, 1 dose, On Tue01/01/22 at 1230, Administer over 46 Hours, Warning Vesicant/Irritant Medication To be infused via an ambulatory infusion CADD Legacy Plus pump continuously IV at 3 mL/hr for 46 hours. Pump contains a 46 hour supply and provides 1,200 mg/m2 over 46 hours. leucovorin 350 mg in dextrose 5% New Bag 01/01/2022 10:27 AM E DT 350 mg 340 mL/hr 85 mL infusion 350 mg, Intravenous, ONCE, 1 dose, On Tue01/01/22 at 1100, Administer over 15 Minutes, May Y-site with OXALIplatin Do not administer at a rate faster than 160 milligrams/minute. palonosetron (Aloxi) (0.05 mg/mL) injection Given 12/05 9:49 AM EDT 0.25 mg 0.25 mg 0.25 mg, Intravenous, ONCE, 1 dose, On Tue01/01/22 at 1000, Administer over 30 seconds. Administer prior to chemotherapy, Routine documented in this encounter Care Teams Registered Occupational Therapist Relationship Specialty Start Date End Date None PCP - General 12/03/19 None documented as of this encounter
--- OUTSIDE RECORDS SUMMARY | 2022-01-29 01:32 | XMS_ITS | Encounter Summary ---
:1940 [place] [address] Care Team Providers Name Role Phone None Primary Care Provider Unavailable Encounter Details Date Type Department Care Team Description 11/26/2021 Ancillary Procedure Radiology Library at Jorge Romero [facility] [place] [address] ONCOLOGY [phone] [place], [place] [address] (Wo rk) Social History Tobacco Use Types Packs/Day Years Used Date Never Smoker Smokeless Tobacco: Never Used Sex Assigned at Date Recorded Not on file documented as of this encounter Plan of Treatment Upcoming Encounters Date Type Specialty Care Team Description 01/29/2022 Office Visit Hematology and Oncology Michael Romero MD [facility] [place] [address] Mckenna Farris [address] MEDICAL ONCOLOGY [place], [place] [address] 01/29/2022 Infusion Hematology and Oncology 02/12/2022 Office Visit Hematology and Oncology Michael Romero MD [facility] [place] [address] Mckenna Farris [address] MEDICAL ONCOLOGY [place], [place] [id number] 02/12/2022 Infusion Hematology and Oncology 02/26/2022 Office Visit Hematology and Oncology Michael Romero MD [facility] [address] [place] [place], [place] [address] (Wo rk) 02/26/2022 Infusion Hematology [...] Time / Laterality Volume Narrative RAD - 12/03/2021 9:57 AM EDT This exam is auto-finalizing. It's purpo se is for storage only. Michael Romero MD IMG FILM LIBRARY ORDERABLES Performing Organization Address City/State/ZIP Code Phon e Number [place], [place] documented in this encounter Visit Diagnoses Not on filedocumented in this encounter Care Teams Adjunct Instructor Of Women'S Studies Relationship Specialty Start Date End Date None PCP - General 12/03/19 None documented as of this encounter
--- OUTSIDE RECORDS SUMMARY | 2022-01-29 01:32 | XMS_ITS | Encounter Summary ---
:1940 Author Organization [facility] [place] [address] Care Team Providers Name Role Phone None Primary Care Provider Unavailable Encounter Details Date Type Department Care Team Description 01/01/2022 Orders Only Hematology/Oncology at [facility] [address] MEDICAL ONCOLOGY [facility] [id number] [phone] Social History Tobacco Use Types Packs/Day Years Used Date Never Smoker Smokeless Tobacco: Never Used Sex Assigned at Date Recorded Not on file documented as of this encounter Plan of Treatment Upcoming Encounters Date Type Specialty Care Team Description 01/29/2022 Office Visit Hematology and Oncology Michael Romero MD [facility] [place] [address] Mckenna F[address] ONCOLOGY [place], [place] [address] 01/29/2022 Infusion Hematology and Oncology 02/12/2022 Office Visit Hematology and Oncology Michael Romero MD [facility] [place] [address] [address] MEDICAL ONCOLOGY [place], [place] [address] 02/12/2022 Infusion Hematology and Oncology 02/26/2022 Office Visit Hematology and Oncology Michael Romero MD [facility] ONCOLOGY [place], [place] [address] (Wo rk) 02/26/2022 Infusion Hematology and Oncology documented as of this encounter Visit Diagnoses Not on filedocumented in this encounter Care Teams Professor Of Fine Art Relationship Specialty Start Date End Date None PCP - General 12/03/19 None documented as of this encounter
--- OUTSIDE RECORDS SUMMARY | 2022-01-29 01:32 | XMS_ITS | Encounter Summary ---
:1940 [place] [address] Care Team Providers Name Role Phone None Primary Care Provider Unavailable Encounter Details Date Type Department Care Team Description 12/04/2021 Office Visit Hematology/Oncology Lissy Luna RD Primary colon cancer at [facility] with metastasis to [address] other site [place], [place] HEMATOLOGY AND [address] ONCOLOGY [phone] [place], [place] [address] Social History Tobacco Use Types Packs/Day Years Used Date Never Smoker Smokeless Tobacco: Never Used Sex Assigned at Date Recorded Not on file documented as of this encounter Progress Notes Lissy Luna RD - 12/04/2021 10:30 AM EDT Nutrition Note Spoke with patient in infusion today. She received 5FU for stage IV colon cancer. She reports her appetite is still fairly poor. She was not able to pick up driver the Boost that was ordered for her two weeksago. Called Medicaid to verify that they approved the PA for this order. Called pharmacy who had theorder written as Ensure instead of Boost. Clarified that order should be for patient's preferred drink--chocolate or vanilla Boost once daily. Pharmacy said that patient should be able to pick this up now. Relayed to patient. Wt Readings from Last 10 Encounters: 12/04/21 79.2 kg (174 lb 11.2 oz) 11/20/21 80.2 kg (176 lb 12.8 oz) 11/06/21 80.6 kg (177 lb 9.6 oz) 10/23/21 81.6 kg (180 lb) 10/09/21 82.6 kg (182 lb) 09/25/21 82.7 kg (182 lb 6.4 oz) 09/11/21 82.9 kg (182 lb 12.8 oz) 08/28/21 82.6 kg (182 lb) 08/21/21 82.3 kg (181 lb 6.4 oz) 08/07/21 83.6 kg (184 lb 4.9 oz) BMI 30.95 2# loss in past 2 weeks (1.3% body weight) - not significant 8# loss in past 2 months (4.5% body weight) - not significant Medications: Eliquis (new), Magnesium prn, compazine prn (not taking), ferrous sulfate, synthroid, zocor, detrol LA, vitamin B12, cod liver oil, vitamin d3, vitamin c ?? Patient began folfox on 05/26/21 for metastatic colorectal cancer. 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 ?? Labs on 12/04: Ca 8.8, BG 151H, BUN 13, Creat 0.9, Alb 2.7L, TBili 0.8, AlkPhos 131H, Na 139, K 3.8, AST 36, ALT 31, WBC 5.16, H/H 11.9/35.9, platelet 172, ANC 2.99 Nutrition Note Involuntary weight loss related to metastatic colorectal cancer as evidenced by 2# loss in past 2 weeks (1.3% body weight) - not significant and8# loss in past 2 months (4.5% body weight) - not significant. Estimated needs based on 79.2 [id number] kcals (25-30 kcal/kg) 79-119 g protein (1-1.5 g/kg) 1 ml/kcal Nutrition Intervention * Recommend continue with regular meals. Consider adding snacks to help prevent further weight loss.Start Boost once daily (Medicaid approved prior authorization; order clarified with pharmacy today). F/U on 12/18 documented in this encounter Plan of Treatment Upcoming Encounters Date Type Specialty Care Team Description 01/29/2022 Office Visit Hematology and Oncology Michael Romero MD [facility] [place] [address] [address] MEDICAL ONCOLOGY [place], [place] [id number] 01/29/2022 Infusion Hematology and Oncology 02/12/2022 Office Visit Hematology and Oncology Michael Romero MD [facility] [place] [address] MEDICAL ONCOLOGY [place], [place] [id number] 02/12/2022 Infusion Hematology and Oncology 02/26/2022 Office Visit Hematology and Oncology Michael Romero MD [facility] [address] [place], [place] [address] (Wo rk) 02/26/2022 Infusion Hematology and Oncology documented as of this encounter Visit Diagnoses Diagnosis Primary colon cancer with metastasis to other site documented in this encounter Care Teams Director Of Social Media Marketing Relationship Specialty Start Date End Date None PCP - General 12/03/19 None documented as of this encounter
--- OUTSIDE RECORDS SUMMARY | 2022-01-29 01:32 | XMS_ITS | Encounter Summary ---
:1940 [place] [address] Care Team Providers Name Role Phone None Primary Care Provider Unavailable Encounter Details Date Type Department Care Team Description 12/18/2021 Office Visit Hematology/Oncology Lissy Luna RD Primary colon cancer at [facility] with metastasis to [address] other site [place], [place] HEMATOLOGY AND [address] ONCOLOGY [phone] [place], [place] [address] Social History Tobacco Use Types Packs/Day Years Used Date Never Smoker Smokeless Tobacco: Never Used Sex Assigned at Date Recorded Not on file documented as of this encounter Progress Notes Lissy Luna RD - 12/18/2021 3:30 PM EDT Nutrition Note Spoke with patient while she was in infusion (cycle 14 of 5FU/Leucovorin for stage IV colon cancer).Patient reports her appetite is still poor. She eats three small meals per day and recently added 1 bottle Boost per day. She feels that sometimes she eats less solid food because the Boost is so filling. Patient started on antibiotics for UTI today. Wt Readings from Last 10 Encounters: 12/18/21 78.3 kg (172 lb 9.6 oz) 12/04/21 79.2 kg (174 lb 11.2 oz) 11/20/21 80.2 kg (176 lb 12.8 oz) 11/06/21 80.6 kg (177 lb 9.6 oz) 10/23/21 81.6 kg (180 lb) 10/09/21 82.6 kg (182 lb) 09/25/21 82.7 kg (182 lb 6.4 oz) 09/11/21 82.9 kg (182 lb 12.8 oz) 08/28/21 82.6 kg (182 lb) 08/21/21 82.3 kg (181 lb 6.4 oz) BMI 30.58 2# loss in the past week (1.2% body weight) - not significant 10# loss over the past 2.5 months (5.5% body weight) - not significant Medications: Eliquis, macrobid (new), magnesium prn, compazine prn, ferrous sulfate, synthroid, oxybutynin, simvastatin, vitamin B12, cod liver oil, vitamin D3, vitamin C Patient is on 5FU for stage IV colon cancer Labs on 12/18: WBC 5.34, H/H 11.7/36.4, platelets 230, Ca 9.6, BG 114, BUN 14, Creat 0.8, Alb 3.0, TBili 0.4, AlkPhos 116, Na 143, K 3.8, AST 23, ALT 32 Nutrition Problem: Involuntary weight loss related to stage IV colon cancer with poor appetite as evidenced by 2# loss in the past week (1.2% body weight) - not significant and 10# loss over the past 2.5 months (5.5% body weight) - not significant Estimated needs based on 78.3 [id number] kcals (25-30 kcal/kg) 78-101 g protein 1 ml/kcal Recommendations/Intervention: * Encouraged continuing with regular meals and try having 4 oz Boost BID between meals rather than with meals so that it doesn't replace solid food. * Consider appetite stimulant if weight loss continues. documented in this encounter Plan of Treatment Upcoming Encounters Date Type Specialty Care Team Description 01/29/2022 Office Visit Hematology and Oncology Michael Romero MD [facility] [place] [address] Mckenna Farris, UTILITY SYSTEM OPERATOR [address] [place] [address] [place] [address] 01/29/2022 Infusion Hematology and Oncology 02/12/2022 Office Visit Hematology and Oncology Michael Romero MD [facility] [place] [address] [address] [place] [address] 02/12/2022 Infusion Hematology and Oncology 02/26/2022 Office Visit Hematology and Oncology Michael Romero MD [facility] ONCOLOGY [place], [place] [address] (Wo rk) 02/26/2022 Infusion Hematology and Oncology documented as of this encounter Visit Diagnoses Diagnosis Primary colon cancer with metastasis to other site documented in this encounter Care Teams Audiovisual Aids Technician Relationship Specialty Start Date End Date None PCP - General 12/03/19 None documented as of this encounter
--- OUTSIDE RECORDS SUMMARY | 2022-01-29 01:32 | XMS_ITS | Clinical Summary ---
:1940 Author Organization [facility] [place] [address] Care Team Providers Name Role Phone None [...] Additional Information Patient not taking. Reported on 01/01/2022 high protein nutritional Take 237 mLs by mouth 7110 mL 11 Active supplement, lactose-free daily. 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; Mckenna Farris Peripheral [place] ropathy due to chemotherapy; L, INSURANCE FOLLOW UP REPRESENTATIVE Fatigue, unspec ified type 01/01/2022 Orders Only Hematology and Mckenna Farris Oncology L, INSURANCE FOLLOW UP REPRESENTATIVE 12/18/2021 Office Visit Hematology and Lissy Luna Primary col on cancer Oncology RD with metastasis to other site 12/18/2021 Infusion Hematology and Primary colon cancer Oncology with metastasis to other site 12/18/2021 Office Visit Hematology and Michael Romero 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; Oncology HMD Chronic deep ve in thrombosis (DVT) of internal jugular vein; Acute cystitis without hematuria; Urinary frequen cy 12/04/2021 Ancillary Procedure Radiology Michael Romero MD 12/04/2021 Infusion Hematology and Primary colon cancer Oncology with metastasis to other site 12/04/2021 Office Visit Hematology and Lissy Luna, Primary col on cancer Oncology RD with metastasis to other site 12/04/2021 Office Visit Hematology and Michael Romero Neck swell ing; Oncology [place] Stage IV adenoc arcinoma of small bowel; Acute deep vein thrombosis (DVT) of other vein of right upper extremity 11/26/2021 Ancillary Procedure Radiology Michael Romero MD 11/20/2021 Infusion Hematology and Primary colon cancer Oncology with metastasis to other site 11/20/2021 Office Visit Hematology and Michael Romero Stage IV Oncology [place] adenocarcinoma of small bowel 11/20/2021 Orders Only Hematology and Michael Romero Protein-ca daysi Oncology [place] malnutrition, unspecified sev erity 11/20/2021 Orders Only Hematology and Jessie Majano Protein-macie rajiv Oncology Alexy, ARYA malnutrition, unspecified sev erity 11/20/2021 Orders Only Hematology and Michael Romero-ca daysi Oncology [place] malnutrition, unspecified sev erity 11/20/2021 Unscheduled Hematology and Lissy Luna, Primary col on cancer Encounter Oncology RD with metastasis to other site 11/06/2021 Infusion Hematology and Primary colon cancer Oncology with metastasis to other site 11/06/2021 Office Visit Hematology and Michael Romero Stage IV Oncology [place] adenocarcinoma of small bowel from Last 3 Months Social History Tobacco Use Types Packs/Day Years Used Date Never Smoker Smokeless Tobacco: Never Used Sex Assigned at Date Recorded Not on file Last Filed Vital Signs Vital Sign Reading Time Taken Comments Blood Pressure 124/65 01/01/2022 9:08 AM EDT Pulse 86 01/01/2022 9:08 AM EDT Temperature 36.1 ??C (96.9 ??F) 01/01/2022 9:08 AM EDT Respiratory Rate 18 01/01/2022 9:08 AM EDT Oxygen Saturation 99% 01/01/2022 9:08 AM EDT Inhaled Oxygen Concentration - - Weight 78.9 kg (174 lb) 01/01/2022 9:08 AM EDT Height 160 cm (5' 2.99) 01/01/2022 9:08 AM EDT Body Mass Index 30.83 01/01/2022 9:08 AM EDT Plan of Treatment Upcoming Encounters Date Type Specialty Care Team Description 01/29/2022 Office Visit Hematology and Oncology Michael Romero MD [facility] [place] [address] [address] MEDICAL [place] [address] 01/29/2022 Infusion Hematology and Oncology 02/12/2022 Office Visit Hematology and Oncology Michael Romero MD [facility] [address] [address] MEDICAL [place] [address] 02/12/2022 Infusion Hematology and Oncology 02/26/2022 Office Visit Hematology and Oncology Michael Romero MD [facility] ONCOLOGY [place], [place] [address] (Wo rk) 02/26/2022 Infusion Hematology and Oncology Health Maintenance Due Date Last Done Comments Covid-19 Vaccine (#1) 03/10/1941 Hepatitis C Screening 1958 Tdap adult 1961 Tetanus vaccine 1961 Zoster vaccine (1 of 2) 1992 Advance Directive 1997 Bone Density Scan 09/09/2007 Pneumoccocal Vaccine: 65+ (1 - PCV) 09/09/2007 Influenza (Flu) vaccine (1 of 1 - Influenza standard 12/03/2021 series) Procedures Procedure Name Priority Date/Time Associated Comments Diagnosis LAB SCAN 01/01/2022 12:00 AM Results for this EDT procedure are i n the results section. LAB SCAN 01/01/2022 12:00 AM Results for this EDT procedure are i n the results section. LAB SCAN 12/18/2021 12:00 AM Results for this EDT procedure are i n the results section. LAB SCAN 12/18/2021 12:00 AM Results for this EDT procedure are i n the results section. FILM LIBRARY STORAGE Routine 12/04/2021 3:05 PM R esults for this ONLY ULTRASOUND EDT procedure ar e in STUDY the results section. LAB SCAN 12/04/2021 12:00 AM Results for this EDT procedure are i n the results section. ULTRASOUND SCAN 12/04/2021 12:00 AM Resul ts for this (SCAN) EDT procedure are i n the results section. ULTRASOUND SCAN 12/04/2021 12:00 AM Resul ts for this (SCAN) EDT procedure are i n the results section. FILM LIBRARY STORAGE Routine 11/26/2021 12:00 AM Results for this ONLY CT CHEST EDT procedure are in ABDOMEN PELVIS the results section. CT SCAN (SCAN) 11/26/2021 12:00 AM Result s for this EDT procedure are i n the results section. LAB SCAN 11/20/2021 12:00 AM Results for this EDT procedure are i n the results section. LAB SCAN 11/09/2021 12:00 AM Results for this EDT procedure are i n the results section. from Last 3 Months Results SCAN DOC: LAB (01/01/2022 12:00 AM EDT)Only the most recent of7 resultswithin the time period is included. Narrative 01/01/2022 12:00 AM EDT This result has an attachment that is no t available. Ordered by an unspecified provider. Scanning Provider MEDIA MGR SCAN EXT ORDR/RSLT Film Library- Storage Only Ultrasound Study (12/04/2021 3:05 PM EDT) Specimen (Source) Anatomical Location Collection Method / Collectio n Time Received Time / Laterality Volume Narrative [facility] - 12/04/2021 3:05 PM EDT This exam is auto-finalizing. It's purpo se is for storage only. Michael Romero MD IMJose FILM LIBRARY ORDERABLES Performing Organization Address City/State/ZIP Code Phon e Number [place], [place] SCAN DOC: ULTRASOUND (12/04/2021 12:00 AM EDT)Only the most recent of2 results within the time period is included. Narrative 12/04/2021 12:00 AM EDT This result has an attachment that is no t available. Ordered by an unspecified provider. Scanning Provider MEDIA MGR SCAN EXT ORDR/RSLT SCAN DOC: CT SCAN (11/26/2021 12:00 AM EDT) Narrative 11/26/2021 12:00 AM EDT This result [...] Organization Address City/State/ZIP Code Phon e Number [place], [place] from Last 3 Months Insurance Payer Benefit Plan / Subscriber ID Effective Dates Phone Addre ss Type Group MEDICARE MEDICARE PART A [id number] 2019-Presen [phone] [id number] [place] [address] Care Teams Furnace Clerk Relationship Specialty Start Date End Date None PCP - General 12/03/19 None
--- OUTSIDE RECORDS SUMMARY | 2022-01-29 01:32 | XMS_ITS | Encounter Summary ---
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; [address] [place] [address] Drive [facility] Acute cystitis without hemat uria; [place], [place] [address] Urinary frequency [phone] ONCOLOGY [phone] [place] [id number] Social History Tobacco Use Types Packs/Day Years Used Date Never Smoker Smokeless Tobacco: Never Used Sex Assigned at Date Recorded Not on file documented as of this encounter Last Filed Vital Signs Vital Sign Reading Time Taken Comments Blood Pressure 118/59 12/18/2021 2:26 PM EDT Pulse 80 12/18/2021 2:26 PM EDT Temperature 36.2 ??C (97.1 ??F) 12/18/2021 2:26 PM EDT Respiratory Rate 18 12/18/2021 2:26 PM EDT Oxygen Saturation 99% 12/18/2021 2:26 PM EDT Inhaled Oxygen Concentration - - Weight 78.3 kg (172 lb 9.6 oz) 12/18/2021 2:26 PM EDT Height 160 cm (5' 2.99) 12/18/2021 2:26 PM EDT Body Mass Index 30.58 12/18/2021 2:26 PM EDT documented in this encounter Progress Notes Michael Romero MD - 12/18/2021 2:30 PM EDT Subjective Patient ID: Joy Armstrong [...] because of significant intra abdominal adhesions Path ([facility] review) - Omentum, mass, excision: [...] 05/26/21 - Began therapy with Folfox, s/p 12 cycles. Oxaliplatin omitted beginning with cycle [address] c/a/p 07/22/21 Chest - Impression: [...] No change Abd/pelvis - Impression: No change CT c/a/p 11/26/21 Chest - Impression: 1. No acute findings within the chest 2. COPD features 3. Stable subcentimeter left AP window lymph node 4. Right chest Port-A-Cath in position Abd/pelvis - Impression: 1. No acute findings of the abdomen or pelvis 2. Fatty liver features 3. Benign stable left renal cyst 4. Pancreatic atrophy 5. Prominent paraesophageal gastric hernia 6. Previous hysterectomy 7. Features suggesting a previous right lower abdominal wall diverting enterostomy which has been reversed. Stable soft tissue prominence or scarring in this region 8. Areas of previous bowel surgery with anastomotic staple lines. No acute features 9. Regression of right lower abdominal wall mesenteric nodule previously stated on 07/22/21 to measure approximately 16 mm. 2. Hypothyroidism 3. Hyperlipidemia 4. ELVER 5. Bowel perforation which pt's thinks was related to a colonoscopy. Required emergent surgery. 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 The history is summarized above. She is receiving chemotherapy with Folfox. Joy is by herself in clinic today. She feels well overall. Her main complaint is fatigue. She doesn't sleep well due to frequent urination. No dysuria. This varies - Sometimes she is up a couple of times but other nights it is more frequent. The swelling of her neck of her neck is better since she started For the past couple of days, she has noticed swelling of the right side of her neck. It went down during the day but is back this morning. This is the side of the mediport. She says she toleratedthe most recent cycle of therapy well. She had some diarrhea. She was less fatigued. 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 She also notices some in her feet toward bedtime. 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 Fam Hx: Father - Mother - breast [...] and atraumatic. Eyes: General: No scleral icterus. Neck: Comments: Swelling right side of neck Cardiovascular: Rate and Rhythm: Normal rate. Pulmonary: Effort: No respiratory distress. Abdominal: General: There is no distension. Musculoskeletal: General: No swelling. Skin: General: Skin is warm and dry. Findings: No rash. Neurological: General: No focal deficit present. Mental Status: She is alert. Coordination: Coordination normal. Psychiatric: Mood and Affect: Mood normal. Labs: WBC/ANC - 5., Hgb/Hct - 11.7/36.4, Plts - 230,000. BUN/Cr - 14/0.8. Alb - 3.0. Lytes and LFTs o/w unremarkable CEA 12/18/21 pending 12/04/21 3.1 11/20/21 3.7 11/06/21 3.8 10/23/21 4.4 10/09/21 4.0 09/25/21 4.3 09/11/21 3.8 08/28/21 3.4 08/21/21 4.3 08/07/21 5.1 07/24/21 4.2 07/10/21 6.7 06/26/21 8.2 06/12/21 3.8 05/26/21 3.1 04/22/21 3.6 10/26/19 1.5 Doppler US, discussed with radiology - [facility] thrombosis Assessment & Plan Joy Armstrong is 81 [...] 12 cycles. Oxaliplatin omitted beginning with cycle 11. A restaging CT was done on 11/26/21 and was stable. Therefore we plan to continue the current therapy. We will go ahead today and see her in two weeks. At the last visit she had swelling of the right neck. This is the side of the mediport. I reviewed the Ct with radiology at [facility]. There does appear to be RIJ thrombus. They recommended confirmation andevaluation of extent of the clot with an US. This confirmed a right IJ thrombus. She is on eliquis and the neck swelling is better. She will continue the eliquis. NGS was performed on the omental biopsy - BRAF [id number] mutation. Because of the urinary frequency/nocturia, a urine dipstick which shows leukocytes, nitrites and some blood. This will be sent for a formal UA with reflex culture. She will be started empirically on macrodantin. documented in this encounter Plan of Treatment Upcoming Encounters Date Type Specialty Care Team Description 01/29/2022 Office Visit Hematology and Oncology Michael Romero MD [facility] [place] [address] MEDICAL ONCOLOGY [place], [place] [id number] 01/29/2022 Infusion Hematology and Oncology 02/12/2022 Office Visit Hematology and Oncology Michael Romero MD [facility] [place] [address] [address] MEDICAL ONCOLOGY [place], [place] [phone] 02/12/2022 Infusion Hematology and Oncology 02/26/2022 Office Visit Hematology and Oncology Michael Romero MD [facility] [address] [place], [place] [address] (Wo rk) 02/26/2022 Infusion Hematology and Oncology Scheduled Orders Name Type Priority Associated Diagnoses Order S chedule Urinalysis with reflex Lab Routine Urinary frequency Expected: 12/18/2021 Culture (Approximate), Expires: 06/19/2022 documented as of this encounter Visit Diagnoses Diagnosis Stage IV adenocarcinoma of small bowel Malignant neoplasm of small intestine, u nspecified site 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
--- OUTSIDE RECORDS SUMMARY | 2022-01-29 01:32 | XMS_ITS | Encounter Summary ---
:1940 [place] [address] Care Team Providers Name Role Phone None Primary Care Provider Unavailable Encounter Details Date Type Department Care Team Description 12/04/2021 Ancillary Procedure Radiology Library at Jorge Romero [facility] [place] [address] ONCOLOGY [phone] [place], [place] [address] (Wo rk) Social History Tobacco Use Types Packs/Day Years Used Date Never Smoker Smokeless Tobacco: Never Used Sex Assigned at Date Recorded Not on file documented as of this encounter Plan of Treatment Upcoming Encounters Date Type Specialty Care Team Description 01/29/2022 Office Visit Hematology and Oncology Michael Romero MD [facility] [place] [address] Mckenna Farris [address] MEDICAL ONCOLOGY [place], [place] [address] 01/29/2022 Infusion Hematology and Oncology 02/12/2022 Office Visit Hematology and Oncology Michael Romero MD [facility] [place] [address] Mckenna Farris [address] MEDICAL ONCOLOGY [place], [place] [id number] 02/12/2022 Infusion Hematology and Oncology 02/26/2022 Office Visit Hematology and Oncology Michael Romero MD [facility] ER DR [place], [place] [address] (Wo rk) 02/26/2022 Infusion Hematology and Oncology documented as of this encounter Procedures Procedure Name Priority Date/Time Associated Comments Diagnosis FILM LIBRARY STORAGE Routine 12/04/2021 3:05 PM R esults for this ONLY ULTRASOUND EDT procedure ar e in STUDY the results section. documented in this encounter Results Film Library- Storage Only Ultrasound Study (12/04/2021 3:05 PM EDT) Specimen (Source) Anatomical Location Collection Method / Collectio n Time Received Time / Laterality Volume Narrative RAD - 12/04/2021 3:05 PM EDT This exam is auto-finalizing. It's purpo se is for storage only. Michael Romero MD IMG FILM LIBRARY ORDERABLES Performing Organization Address City/State/ZIP Code Phon e Number [place], [place] documented in this encounter Visit Diagnoses Not on filedocumented in this encounter Care Teams Cotton Grader Relationship Specialty Start Date End Date None PCP - General 12/03/19 None documented as of this encounter
--- OUTSIDE RECORDS SUMMARY | 2022-01-29 01:32 | XMS_ITS | Encounter Summary ---
:1940 Author Organization [facility] [place] [address] Care Team Providers Name Role Phone None Primary Care Provider Unavailable Reason for Visit Reason Comments Chemotherapy Cycle 11, Day 1 Treatment/Therapy Plan Authorization (Routine) - Authorized Specialty Diagnoses / Procedures Referred By Contact Refer red To Contact Diagnoses Primary colon cancer with metastasis to other site Michael Romero MD St[facility] Hem Onc In[facility] COLORECTAL CANCER - FOLFOX-6 (14 DAY) [address] [place] [phone] Fax: Referral ID Status Reason Start Date Expiration Date Visits V isits Requested Authorized [id number] Authorized 05/08/2021 03/03/2022 20 20 Encounter Details Date Type Department Care Team Description 11/06/2021 Infusion Hematology Oncology at [facility] colon cancer with [facility] metastasis to other site [address] [place] [phone] Social History Tobacco Use Types [...] neuropathy. OBJECTIVE LAB DATA: Done today at [facility] for treatment. IV ACCESS: Implanted port Pre administration: Chemotherapy orders independently verified for drug name, route, and dosage per patient's height, weight and BSA by Curry Arechiga RN and pharmacist on site. REACTIONS (DESCRIPTION, TIME, [...] and Oncology Michael Romero MD [facility] [place] [address] ONCOLOGY [place], [place] [address] 01/29/2022 Infusion Hematology and Oncology 02/12/2022 Office Visit Hematology and Oncology Michael Romero MD [facility] [place] [place] [address] [address] ONCOLOGY [place], [place] [phone] 02/12/2022 Infusion Hematology and Oncology 02/26/2022 Office Visit Hematology and Oncology Michael Romero MD [facility] [place]OG[place], [place] [address] ([facility]) 02/26/2022 Infusion Hematology and Oncology documented as [...] Routine documented in this encounter Care Teams Radio Script Writer Relationship Specialty Start Date End Date None PCP - General 12/03/19 None documented as of this encounter
--- OUTSIDE RECORDS SUMMARY | 2022-01-29 01:32 | XMS_ITS | Encounter Summary ---
:1940 [place] [address] Care Team Providers Name Role Phone None Primary Care Provider Unavailable Encounter Details Date Type Department Care Team Description 01/01/2022 Office Visit Hematology/Oncology Lissy Luna RD Primary colon cancer at [facility] with metastasis to [address] other site [place], [place] HEMATOLOGY AND [phone] ONCOLOGY [phone] [place], [place] [address] Social History Tobacco Use Types Packs/Day Years Used Date Never Smoker Smokeless Tobacco: Never Used Sex Assigned at Date Recorded Not on file documented as of this encounter Progress Notes Lissy Luna RD - 01/01/2022 10:00 AM EDT Nutrition Note Briefly spoke with Joy while she was in infusion today (cycle 15 of 5FU/Leucovorin for stage IV colon cancer). She reports she is still drinking chocolate Boost 1 bottle per day in addition to small meals. She also ice cream to her Boost which she thinks helped stabilize her weight over the past three weeks. Her appetite remains fairly poor. She continues to have diarrhea; Mckenna Farris encouraged taking imodium as needed. She feels she is having more fatigue. Wt Readings from Last 10 Encounters: 01/01/22 78.9 kg (174 lb) 12/18/21 78.3 kg (172 lb 9.6 oz) 12/04/21 79.2 kg (174 lb 11.2 oz) 11/20/21 80.2 kg (176 lb 12.8 oz) 11/06/21 80.6 kg (177 lb 9.6 oz) 10/23/21 81.6 kg (180 lb) 10/09/21 82.6 kg (182 lb) 09/25/21 82.7 kg (182 lb 6.4 oz) 09/11/21 82.9 kg (182 lb 12.8 oz) 08/28/21 82.6 kg (182 lb) Weight stable for the past 3 weeks at 174# 10# loss in 2 months (08/28-12/18) (5.5% body weight) - not significant Medications: Boost once daily, Eliquis, macrobid, magnesium prn, compazine prn, ferrous sulfate, synthroid, oxybutynin, simvastatin, vitamin B12, cod liver oil, vitamin D3, vitamin C ?? Patient is on 5FU for stage IV colon cancer ?? Labs on 12/18: ??WBC/ANC - 5., Hgb/Hct - 11.7/36.4, Plts - 230,000. BUN/Cr - 14/0.8. Alb - 3.0. Lytes and LFTs o/w unremarkable Nutrition Problem: Involuntary weight loss related to stage IV colon cancer with poor appetite as evidenced by 10# lossover recent 2.5 months (5.5% body weight) - not significant Improved--weight stable for past 3 weeks ?? Estimated needs based on 78 [id number] kcals (25-30 kcal/kg) 78-101 g protein 1 ml/kcal ?? Recommend/Intervention:?? * Continue with regular meals as well as 1 bottle Boost per day with ice cream mixed in. Encouraged having this between meals so that it doesn't take the place of solid food. Will continue to follow up as needed documented in this encounter Plan of Treatment Upcoming Encounters Date Type Specialty Care Team Description 01/29/2022 Office Visit Hematology and Oncology Michael Romero MD [facility] [place] [address] Mckenna Farris, CLUTCH REBUILDER [address] [place] [address] [place] [address] 01/29/2022 Infusion Hematology and Oncology 02/12/2022 Office Visit Hematology and Oncology Michael Romero MD [facility] [place] [address] [address] [place] [address] 02/12/2022 Infusion Hematology and Oncology 02/26/2022 Office Visit Hematology and Oncology Michael Romero MD [facility] DR [place], [place] [address] (Wo rk) 02/26/2022 Infusion Hematology and Oncology documented as of this encounter Visit Diagnoses Diagnosis 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
--- OUTSIDE RECORDS SUMMARY | 2022-01-29 01:32 | XMS_ITS | Encounter Summary ---
:1940 Author Organization [facility] [place] [address] Care Team Providers Name Role Phone None Primary Care Provider Unavailable Reason for Referral Diagnostic Test (Routine) - Pending Review Specialty Diagnoses / Procedures Referred By Contact Refer red To Contact Diagnoses Neck swelling Stage IV adenocarcinoma of small bowel Acute deep vein thrombosis (DVT) of other vein of right upper extremity Michael Romero MD Procedures Vascular Imaging Venous Upper Extremity Unilateral [facility] [place] [address] Referral ID Status Reason Start Expiration Visits Visits Date Date Requested Authorized [id number] Pending Specialty 12/04/2021 06/04/2023 1 1 Review Service Requested Encounter Details Date Type Department Care Team Description 12/04/2021 Office Visit Hematology/Oncology Michael Romero Neck swelling; at Tl Putnam MD Stage IV adenocarcinoma of small bowel; [address] [facility] Acute deep vein thrombosis ( DVT) of other vein of right upper extremity [place], [place] CENTER [phone] ONCOLOGY [phone] [place], [place] [address] Social History Tobacco Use Types Packs/Day Years Used Date Never Smoker Smokeless Tobacco: Never Used Sex Assigned at Date Recorded Not on file documented as of this encounter Last Filed Vital Signs Vital Sign Reading Time Taken Comments Blood Pressure 117/59 12/04/2021 8:57 AM EDT Pulse 86 12/04/2021 8:57 AM EDT Temperature 36.2 ??C (97.1 ??F) 12/04/2021 8:57 AM EDT Respiratory Rate 18 12/04/2021 8:57 AM EDT Oxygen Saturation 99% 12/04/2021 8:57 AM EDT Inhaled Oxygen Concentration - - Weight 79.2 kg (174 lb 11.2 oz) 12/04/2021 8:57 AM EDT Height 160 cm (5' 2.99) 12/04/2021 8:57 AM EDT Body Mass Index 30.96 12/04/2021 8:57 AM EDT documented in this encounter Progress Notes Michael Romero MD - 12/04/2021 9:00 AM EDT Subjective Patient ID: Joy Armstrong [...] of significant intra abdominal adhesions Path ([facility] review) - Omentum, mass, excision: - Metastatic [...] is by herself in clinic today. She has been feeling pretty well overall. For the past couple of days, she has noticed swelling of the right side of her neck. It went down during the day but is back this morning. This is the side of the mediport. She says she tolerated the most recent cycle of therapy well. She had some diarrhea. She was less fatigued. 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 She also notices some in her feet toward bedtime. Soc Hx: , lives in [place], [place] Tob - Never Etoh - None Worked as [employer]. Fam Hx: Father - Mother - breast [...] normal. Labs: WBC/ANC - 5., Hgb/Hct - 11.9/35.9, Plts - 172,000. BUN/Cr - 13/0.9. Alb - 2.7. Lytes and LFTs o/w unremarkable CEA 12/04/21 pending 11/20/21 3.7 11/06/21 3.8 10/23/21 4.4 10/09/21 4.0 09/25/21 4.3 09/11/21 3.8 08/28/21 3.4 08/21/21 4.3 08/07/21 5.1 07/24/21 4.2 07/10/21 6.7 06/26/21 8.2 06/12/21 3.8 05/26/21 3.1 04/22/21 3.6 10/26/19 1.5 Doppler US, discussed with radiology - [facility] thrombosis Assessment & Plan Joy Armstrong is [...] today and see her in two weeks. Of concern today is swelling of the right neck. This is the side of the mediport. I reviewed the Ct with radiology at [facility]. There does appear to be RIJ thrombus. They recommended confirmation and evaluation of extent of the clot with an US. This confirms a right IJ thrombus. The mediport is working. We leave the mediport in and continue chemotherapy. She will be treated today and we will see her in two weeks. She will receive a dose of lovenox today and will start apixaban - 10 mg bid for 7 days, then will continue 5 mg bid after that. NGS was performed on the omental biopsy - BRAF [id number] mutation. documented in this encounter Plan of Treatment Upcoming Encounters Date Type Specialty Care Team Description 01/29/2022 Office Visit Hematology and Oncology Michael Romero MD [facility] [place] [address] [address] MEDICAL ONCOLOGY [place], [place] [id number] 01/29/2022 Infusion Hematology and Oncology 02/12/2022 Office Visit Hematology and Oncology Michael Romero MD [facility] [place] [address] [address] MEDICAL ONCOLOGY [place], [place] [address] 02/12/2022 Infusion Hematology and Oncology 02/26/2022 Office Visit Hematology and Oncology Michael Romero MD [facility] ONCOLOG[facility] [place], [place] [address] (Wo rk) 02/26/2022 Infusion Hematology and Oncology Scheduled Orders Name Type Priority Associated Diagnoses Order S chedule Vascular Imaging Imaging Routine Neck swelling Expected: 12/04/2021 Venous Upper Extremity Stage IV adenocarc inoma of (Approximate), Unilateral small bowel Expires: 06/05/2022 Acute deep vein thrombosis (DVT) of other vein of right upper extremity documented as of this encounter Visit Diagnoses Diagnosis Neck swelling Swelling, mass, or lump in head and neck Stage IV adenocarcinoma of small bowel Malignant neoplasm of small intestine, u nspecified site Acute deep vein thrombosis (DVT) of othe r vein of right upper extremity documented in this encounter Care Teams Burnisher And Bumper Relationship Specialty Start Date End Date None PCP - General 12/03/19 None documented as of this encounter
--- OUTSIDE RECORDS SUMMARY | 2022-01-29 01:32 | XMS_ITS | Encounter Summary ---
:1940 Author Organization [facility] [place] [address] Care Team Providers Name Role Phone None Primary Care Provider Unavailable Reason for Visit Reason Comments Chemotherapy Cycle 14 5fu Treatment/Therapy Plan Authorization (Routine) - Authorized Specialty Diagnoses / Procedures Referred By Contact Refer red To Contact Diagnoses Primary colon cancer with metastasis to other site Michael Romero MD Stj Hem Onc Infusion Procedures [facility] ONC GI COLORECTAL CANCER - FOLFOX-6 (14 DAY) [address] [place] [phone] Fax: Referral ID Status Reason Start Date Expiration Date Visits V isits Requested Authorized [id number] Authorized 05/08/2021 03/03/2022 20 20 Encounter Details Date Type Department Care Team Description 12/18/2021 Infusion Hematology Oncology at [facility] colon cancer with [facility] metastasis to other site [address] [place] [phone] Social History Tobacco Use Types Packs/Day Years Used Date Never Smoker Smokeless Tobacco: Never Used Sex Assigned at Date Recorded Not on file documented as of this encounter Progress Notes Virginia Leon RN - 12/18/2021 3:00 PM EDT INFUSION THERAPY ADMINISTRATION NOTES TIME TREATMENT STARTED: 1500 TIME TREATMENT ENDED: 1635 DIAGNOSIS: colon cancer PROTOCOL:na CYCLE #: 14 REASON FOR VISIT: 5FU/leucovorin SUBJECTIVE Joy Armstrong offers no complaints. OBJECTIVE LAB DATA: Labs reviewed and found adequate for treatment. Pre administration: Chemotherapy orders independently verified for drug name, route, and dosage per patient's height, weight and BSA by Marion Leon RN and Marion hillman pharmacist. 5FU CADD pump checked 15 minutes after starting 0.7ccs went in, double checked by Otoniel Soto RN. Pt will be disconnected by on Tuesdaydec 20 at 215pm. REACTIONS (DESCRIPTION, TIME, INTERVENTION AND EFFECTIVENESS) none ASSESSMENT Joy Armstrong was awake, alert and he tolerated treatment well. PLAN Return to clinic in 2 weeks. documented in this encounter Plan of Treatment Upcoming Encounters Date Type Specialty Care Team Description 01/29/2022 Office Visit Hematology and Oncology Michael Romero MD [facility] [place] [address] MEDICAL ONCOLOGY [place], [place] [phone] 01/29/2022 Infusion Hematology and Oncology 02/12/2022 Office Visit Hematology and Oncology Michael Romero MD [facility] [place] [address] [address] MEDICAL ONCOLOGY [place], [place] [address] 02/12/2022 Infusion Hematology and Oncology 02/26/2022 Office Visit Hematology and Oncology Michael Romero MD [facility] ONCOLOGY [place], [place] [address] (Wo rk) 02/26/2022 Infusion Hematology and Oncology documented as of this encounter Visit Diagnoses Diagnosis Primary colon cancer with metastasis to other site documented in this encounter Administered Medications Inactive Administered Medications - up to 3 most recent administrations Medication Order MAR Action Action Date Dose Rate Site dexAMETHasone (Decadron) tablet 10 Given 12/18/2021 3:16 PM EDT 10 mg mg 10 mg, Oral, ONCE, 1 dose, On Tue12/18/21 at 1515, Administer prior to chemotherapy, Routine fluorouraciL (ADRUCIL) chemo Given 12/18/2021 4:10 PM EDT 249 mg 59.8 mL/hr injection 249 mg 249 mg (rounded from 249.3333 mg = 133.3333 mg/m2/dose ? 1.87 m2 Treatment Plan BSA from Recorded weight), Intravenous, ONCE, 1 dose, On Tue12/18/21 at 1615, Administer over 5 Minutes, Warning Vesicant/Irritant Medication fluorouraciL (AdruciL) in sodium Given 12/18/2021 4:16 PM EDT 2, 244 mg 3 mL/hr chloride 0.9% 138 mL infusion (46 Hour - For Home Use) 2,244 mg 2,244 mg (1,200 mg/m2/dose ? 1.87 m2 Treatment Plan BSA from Recorded weight), Intravenous, ONCE, 1 dose, On Tue12/18/21 at 1745, Administer over 46 Hours, Warning Vesicant/Irritant Medication To be infused via an ambulatory infusion CADD Legacy Plus pump continuously IV at 3 mL/hr for 46 hours. Pump contains a 46 hour supply and provides 1,200 mg/m2 over 46 hours. leucovorin 350 mg in dextrose 5% 85 New Bag 12/18/2021 3:47 PM EDT 350 mg 340 mL/hr mL infusion 350 mg, Intravenous, ONCE, 1 dose, On Tue12/18/21 at 1615, Administer over 15 Minutes, May Y-site with OXALIplatin Do not administer at a rate faster than 160 milligrams/minute. palonosetron (Aloxi) (0.05 mg/mL) injection Given 12/03 3:17 PM EDT 0.25 mg 0.25 mg 0.25 mg, Intravenous, ONCE, 1 dose, On Tue12/18/21 at 1515, Administer over 30 seconds. Administer prior to chemotherapy, Routine documented in this encounter Care Teams Otc Clerk Relationship Specialty Start Date End Date None PCP - General 12/03/19 None documented as of this encounter
--- OUTSIDE RECORDS SUMMARY | 2022-01-29 01:32 | XMS_ITS | Encounter Summary ---
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 Michael Romero MD Stj Hem Onc Infusion Procedures [facility] AMB ONC GI COLORECTAL CANCER - FOLFOX-6 (14 DAY) [address] [place] [phone] Fax: Referral ID Status Reason Start Date Expiration Date Visits V isits Requested Authorized [id number] Authorized 05/08/2021 03/03/2022 20 20 Encounter Details Date Type Department Care Team Description 12/04/2021 Infusion Hematology Oncology at [facility] colon cancer with [facility] metastasis to other site [address] [place] [phone] Social History Tobacco Use Types Packs/Day Years Used Date Never Smoker Smokeless Tobacco: Never Used Sex Assigned at Date Recorded Not on file documented as of this encounter Progress Notes iVrginia Leon RN - 12/04/2021 10:30 AM EDT INFUSION THERAPY ADMINISTRATION NOTES TIME TREATMENT STARTED: 1130 TIME TREATMENT ENDED: 1320 DIAGNOSIS: colon cancer PROTOCOL:na CYCLE #: 13 REASON FOR VISIT: 5fu push and pump SUBJECTIVE Joy Armstrong offers no complaints. OBJECTIVE LAB DATA: Labs reviewed and found adequate for treatment. Pt with right sided neck swelling, went up for ultra soumd of neck and noted in right jugular thrombosis, lovenox 120 mg given sc , pt will start on eliquis per Dr. Romero. Dr. Romero stated pt fined to be given infusion via mediport, pt has no pain when flushing mediport awesome blood return noted beofre durning and after infusions Pre administration: Chemotherapy orders independently verified for drug name, route, and dosage per patient's height, weight and BSA by Marion Leon RN and Marion hillman pharmacist. 5FU cadd pump checked 15 minutes after starting it and 0.9 ccs went in. Pt given disconnect kit for her to do at home at 11 am Tuesdaydec 06. REACTIONS (DESCRIPTION, TIME, INTERVENTION AND EFFECTIVENESS) none ASSESSMENT Joy Armstrong was awake, alert and he tolerated treatment well. PLAN Return to clinic per routine. documented in this encounter Plan of Treatment Upcoming Encounters Date Type Specialty Care Team Description 01/29/2022 Office Visit Hematology and Oncology Michael Romero MD [facility] [place] [address] [address] ONCOLOGY [place], [place] [phone] 01/29/2022 Infusion Hematology and Oncology 02/12/2022 Office Visit Hematology and Oncology Michael Romero MD [facility] [place] [address] [address] ONCOLOGY [place], [place] [id number] 02/12/2022 Infusion Hematology and Oncology 02/26/2022 Office Visit Hematology and Oncology Michael Romero MD [facility] DR [place], [place] [address] (Wo rk) 02/26/2022 Infusion Hematology and Oncology documented as of this encounter Visit Diagnoses Diagnosis Primary colon cancer with metastasis to other site documented in this encounter Administered Medications Inactive Administered Medications - up to 3 most recent administrations Medication Order MAR Action Action Date Dose Rate Site dexAMETHasone (Decadron) tablet 10 Given 12/04/2021 11:40 AM EDT 10 mg mg 10 mg, Oral, ONCE, 1 dose, On Tue12/04/21 at 1145, Administer prior to chemotherapy, Routine enoxaparin (Lovenox) (150 Given 12/04/2021 11:49 AM EDT 120 mg Abdominal Tissue mg/1 mL) subcutaneous injection 120 mg 120 mg, Subcutaneous, ONCE, 1 dose, On Tue12/04/21 at 1145, Dose Ordered = 118.5 mg (1.5 mg/kg). Pharmacist rounded dose per procedure., Routine fluorouraciL (ADRUCIL) chemo Given 12/04/2021 12:57 PM EDT 251 m g 60.2 mL/hr injection 251 mg 251 mg (rounded from 250.6666 mg = 133.3333 mg/m2/dose ? 1.88 m2 Treatment Plan BSA from Recorded weight), Intravenous, ONCE, 1 dose, On Tue12/04/21 at 1245, Administer over 5 Minutes, Warning Vesicant/Irritant Medication fluorouraciL (AdruciL) in sodium Given 12/04/2021 1:04 PM EDT 2, 256 mg 3 mL/hr chloride 0.9% 138 mL infusion (46 Hour - For Home Use) 2,256 mg 2,256 mg (1,200 mg/m2/dose ? 1.88 m2 Treatment Plan BSA from Recorded weight), Intravenous, ONCE, 1 dose, On Tue12/04/21 at 1415, Administer over 46 Hours, Warning Vesicant/Irritant Medication To be infused via an ambulatory infusion CADD Legacy Plus pump continuously IV at 3 mL/hr for 46 hours. Pump contains a 46 hour supply and provides 1,200 mg/m2 over 46 hours. leucovorin 350 mg in dextrose 5% New Bag 12/04/2021 12:07 PM E DT 350 mg 340 mL/hr 85 mL infusion 350 mg, Intravenous, ONCE, 1 dose, On Tue12/04/21 at 1245, Administer over 15 Minutes, May Y-site with OXALIplatin Do not administer at a rate faster than 160 milligrams/minute. palonosetron (Aloxi) (0.05 mg/mL) injection Given 05/2021 11:42 AM EDT 0.25 mg 0.25 mg 0.25 mg, Intravenous, ONCE, 1 dose, On Tue12/04/21 at 1145, Administer over 30 seconds. Administer prior to chemotherapy, Routine documented in this encounter Care Teams Carbon Coating Machine Operator Relationship Specialty Start Date End Date None PCP - General 12/03/19 None documented as of this encounter
--- OUTSIDE RECORDS SUMMARY | 2022-01-29 01:32 | XMS_ITS | Encounter Summary ---
:1940 Author Organization [facility] [place] [address] Care Team Providers Name Role Phone None Primary Care Provider Unavailable Encounter Details Date Type Department Care Team Description 01/01/2022 Office Visit Hematology/Oncology Aaron Romero MD [facility] [place] [address] Stage IV [facility] of small [facility] [address] [place] [address] DR MEDICAL ONCOLOGY [place], [place] [id number] Chronic deep vein thrombosis (DVT) of in ternal jugular vein; [address] [place] [address] Peripheral neuropathy due to chemotherapy; [place], [place] Fatigue, un specified type [phone] Social History Tobacco Use Types Packs/Day [...] Mass Index 30.83 01/01/2022 9:08 AM EDT documented in this encounter Progress Notes Brenton Mckenna L, PATIENT NAVIGATOR - 01/01/2022 9:00 AM EDT Subjective Patient ID: Joy [...] because of significant intra abdominal adhesions Path ([facility] review) - Omentum, mass, excision: - Metastatic [...] summarized above. She is receiving chemotherapy with Folfox INTERVAL HISTORY(01/01/22)- Joy presents to clinic today to continue treatment with 5FU for Stage IV colon cancer. She is accompanied by her today. She feels well today. Her was concerned because he felt she was really worn out after her last treatment. She feels she is doing better today and that fatigue has improved. She completed anti-infective and her urinary symptoms have improved. She only had to get up once last night for the bathroom. She denies any fevers, chills or signs of infection. She occasionally has nausea when she first gets up in the morning and sometimes smells will trigger it.Usually jennifer cookies relieve the nausea. She has not had to use the medication. Appetite improved some - she gained a couple of lbs. No swelling in right side of neck. She is taking the Eliquis 5mg BID as prescribed. No bleeding. She continues to struggle with the intermittent diarrhea. Imodium doeshelp her. Her wonders is she should take it to prevent the diarrhea because they take a lot of car trips. No cough, shortness of breath, chest pain or edema. She still has the neuropathy in herfingers and feet. She doesn't feel it is any worse. She has noticed more forgetfulness. No headachesor vision changes. Sleeping better since her bladder symptoms improved. She has not mucositis but did have some irritation under her dentures where strawberry seeds got caught. She occasionally has some abdominal discomfort near her scar line but denies any new pain. No other focal complaints today. Soc Hx: , lives in [place], [place] Tob - Never Etoh - None Worked as [email or web address]. Fam Hx: Father - Mother - breast and colon cancer Sibs - brother with lung cancer; sister had a colectomy due to colon polyps, then had a cancer in her liver (unsure if Children - GM - colon cancer Mar aunt had breast cancer Pat GF had cancer (intestinal vs stomach) Review of Systems Constitutional: Positive for fever. Negative for activity change, appetite change and unexpected weight change. HENT: Negative. Respiratory: Negative. Negative for cough. Cardiovascular: Positive for leg swelling. Negative for chest pain. Gastrointestinal: Positive for abdominal pain (RLQ) and nausea. Negative for vomiting. Genitourinary: Negative for dysuria. Musculoskeletal: Negative. Skin: Negative. Dry skin Neurological: Positive for numbness. Hematological: Negative. Psychiatric/Behavioral: Negative. Objective Physical Exam Vitals reviewed. Constitutional: General: She is not in acute distress. HENT: Head: Normocephalic and atraumatic. Mouth/Throat: Pharynx: Oropharynx is clear. No oropharyngeal exudate. Eyes: General: No scleral icterus. Conjunctiva/sclera: Conjunctivae normal. Neck: Comments: Swelling right side of neck Cardiovascular: Rate and Rhythm: Normal rate and regular rhythm. Pulmonary: Effort: Pulmonary effort is normal. No respiratory distress. Breath sounds: Normal breath sounds. Abdominal: General: Abdomen is flat. Bowel sounds are normal. There is no distension. Palpations: Abdomen is soft. There is no mass. Tenderness: There is no right CVA tenderness or left CVA tenderness. Musculoskeletal: General: No swelling. Right lower leg: Edema present. Left lower leg: Edema present. Comments: Bilateral LE edema Lymphadenopathy: Cervical: No cervical adenopathy. Skin: General: Skin is warm and dry. Findings: No rash. Neurological: General: No focal deficit present. Mental Status: She is alert. Coordination: Coordination normal. Psychiatric: Mood and Affect: Mood normal. Behavior: Behavior normal. Labs: 01/02/20- WBC-5.90 Hgb/Hct-11.8/36.1 Plt-144 ANC-3.99 Na-143 K+-3.5 BUN/cr-13/0.8 Glucose-124 Ca-9.1 T. Bili-0.3 AST-30 ALT-26 Alk phos-113 Albumin-3.0 WBC/ANC - 5., Hgb/Hct - 11.7/36.4, Plts - 230,000. BUN/Cr - 14/0.8. Alb - 3.0. Lytes and LFTso/w unremarkable CEA 01/01/22 pending 12/18/21 3.8 12/04/21 3.1 11/20/21 3.7 11/06/21 3.8 10/23/21 4.4 10/09/21 4.0 09/25/21 4.3 09/11/21 3.8 08/28/21 3.4 08/21/21 4.3 08/07/21 5.1 07/24/21 4.2 07/10/21 6.7 06/26/21 8.2 06/12/21 3.8 05/26/21 3.1 04/22/21 3.6 10/26/19 1.5 Doppler US, discussed with radiology - [facility] thrombosis Assessment & Plan Joy Armstrong [...] pelvis. She was [place] [facility] [place] underwent resection on 12/05/2019 - path [...] we plan to continue the current therapy. At the last visit she had swelling of the right neck. This is the side of the mediport. I reviewed the Ct with radiology at [facility]. There does appear to be RIJ thrombus. They recommended confirmation andevaluation of extent of the clot with an US. This confirmed a right IJ thrombus. She is on eliquis and the neck swelling is better. She will continue the eliquis. NGS was performed on the omental biopsy - BRAF [id number] mutation. #Right IJ thrombus- no swelling in right neck. Mediport site looks good. She is taking the Eliquis 5mg twice daily. # Diarrhea- Continues to have intermittent diarrhea- we discussed taking an imodium as a preventive medication especially if she is going on a car trip. # Forgetfulness- discussed Chemo brain. She was relieved to hear it was normal with chemotherapy. # Fatigue- Having more fatigue. We discussed taking a treatment break for a week. She wants to see how she does with this treatment. #Peripheral Neuropathy- Grade 1 in fingers and feet. Stable at present. Joy is having more fatigue but appears to be tolerating treatments well. Labs and toxicities assessed today and are acceptable to continue treatment. We will see her back in 2 weeks with CBC,CMP, CEAand Cycle 16. Joy voiced understanding of the plan and was given an opportunity to ask questions which I answered to the best of my ability. Joy understands she can call the clinic between visits with any questions/concerns or new symptoms. Mckenna Farris MSN, PATIENT NAVIGATOR, AOCNP Medical Oncology documented in this encounter Plan of Treatment Upcoming Encounters Date Type Specialty Care Team Description 01/29/2022 Office Visit Hematology and Oncology Michael Romero MD [facility] [address] Mckenna Farris APRN [address] [place] [address] DR MEDICAL ONCOLOGY [place], [place] [address] 01/29/2022 Infusion Hematology and Oncology 02/12/2022 Office Visit Hematology and Oncology Michael Romero MD 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
--- OUTSIDE RECORDS SUMMARY | 2022-01-29 01:32 | XMS_ITS | Encounter Summary ---
:1940 Author Organization [facility] [address] Care Team Providers Name Role Phone None Primary Care Provider Unavailable Reason for Referral Diagnostic Test (Routine) - Authorized Specialty Diagnoses / Procedures Referred By Contact Refer red To Contact Radiology Diagnoses Stage IV adenocarcinoma of small bowel Michael Romero MD Procedures CT Chest Abdomen Pelvis w Contrast (Generic) [facility] [place] [address] Referral ID Status Reason Start Expiration Visits Visits Date Date Requested Authorized [id number] Authorized Specialty 11/20/2021 05/23/2023 1 1 Service Requested Encounter Details Date Type Department Care Team Description 11/20/2021 Office Visit Hematology/Oncology Michael Romero Stage IV adenocarcinoma at [facility] [place] of small bowel [address] [place] [phone] ONCOLOGY [phone] [place], [place] [address] Social History Tobacco Use Types [...] because of significant intra abdominal adhesions Path ([facility] review) - Omentum, mass, excision: - Metastatic [...] left today. Soc Hx: , lives in [place], [place] Tob - Never Etoh - None Worked as [employer] and [email or web address]. Fam Hx: Father - Mother - breast [...] Lytes and LFTs o/w unremarkable CEA 11/20/21 8/08/23 3.8 10/23/21 4.4 10/09/21 4.0 09/25/21 4.3 [...] the pelvis. She was seen at [facility] and underwent resection on 12/05/2019 [...] Visit Hematology and Oncology Michael Romero MD [facility] [place] [address] ONCOLOGY [place], [place] [phone] 01/29/2022 Infusion Hematology and Oncology 02/12/2022 Office Visit Hematology and Oncology Michael Romero MD [facility] [place] [address] ONCOLOGY [place], [place] [address] 02/12/2022 Infusion Hematology and Oncology 02/26/2022 Office Visit Hematology and Oncology Michael Romero MD [facility] ONCOLOGY [place], [place] [address] (Wo rk) 02/26/2022 Infusion Hematology [...] documented in this encounter Care Teams Director Recreation Center Relationship Specialty Start Date End Date None PCP - General 12/03/19 None documented as of this encounter
--- OUTSIDE RECORDS SUMMARY | 2022-01-29 01:32 | XMS_ITS | Encounter Summary ---
:1940 Author Organization [facility] [place] [address] Care Team Providers Name Role Phone None Primary Care Provider Unavailable Reason for Visit Reason Comments Chemotherapy Cycle 12, Day 1 Treatment/Therapy Plan Authorization (Routine) - Authorized Specialty Diagnoses / Procedures Referred By Contact Refer red To Contact Diagnoses Primary colon cancer with metastasis to other site Michael Romero MD [facility] In[facility] COL[facility]ECT[facility] CANC[facility] - FOLFOX-6 (14 DAY) [address] [place] [phone] Fax: Referral ID Status Reason Start Date Expiration Date Visits V isits Requested Authorized [id number] Authorized 05/08/2021 03/03/2022 20 20 Encounter Details Date Type Department Care Team Description 11/20/2021 Infusion Hematology Oncology at [facility] colon cancer with [facility] metastasis to other site [address] [place] [phone] Social History Tobacco Use Types [...] time. OBJECTIVE LAB DATA: Done today at [facility] for treatment. IV ACCESS: Implanted port [...] Romero MD [facility] [place] [place] [address] MEDICAL ONCOLOGY [place], [place] [phone] 01/29/2022 Infusion Hematology and Oncology 02/12/2022 Office Visit Hematology and Oncology Michael Romero MD [facility] [place] [address] MEDICAL ONCOLOGY [place], [place] [phone] 02/12/2022 Infusion Hematology and Oncology 02/26/2022 Office Visit Hematology and Oncology Michael Romero MD [facility] ONCOLOGY [place], [place] [address] (Wo rk) 02/26/2022 Infusion Hematology [...] Routine documented in this encounter Care Teams Banquet Server Relationship Specialty Start Date End Date None PCP - General 12/03/19 None documented as of this encounter
--- OUTSIDE RECORDS SUMMARY | 2022-01-29 01:32 | XMS_ITS | Encounter Summary ---
:1940 Author Organization [facility] [place] [address] Care Team Providers Name Role Phone None Primary Care Provider Unavailable Encounter Details Date Type Department Care Team Description 11/20/2021 Orders Only Hematology and Michael Romero, Protein -calorie Oncology at [facility] malnutrition, [facility] uns pecified severity [place] [address] ONCOLOGY [phone] [place], [place] [address] Social History Tobacco Use Types Packs/Day Years Used Date Never Smoker Smokeless Tobacco: Never Used Sex Assigned at Date Recorded Not on file documented as of this encounter Plan of Treatment Upcoming Encounters Date Type Specialty Care Team Description 01/29/2022 Office Visit Hematology and Oncology Michael Romero MD [facility] [place] [address] MEDICAL ONCOLOGY [place], [place] [phone] 01/29/2022 Infusion Hematology and Oncology 02/12/2022 Office Visit Hematology and Oncology Michael Romero MD [facility] [place] [address] Mckenna Farris [address] MEDICAL ONCOLOGY [place], [place] [phone] 02/12/2022 Infusion Hematology and Oncology 02/26/2022 Office Visit Hematology and Oncology Michael Romero MD [facility] ONCOLOGY [place], [place] [address] (Wo rk) 02/26/2022 Infusion Hematology and Oncology documented as of this encounter Visit Diagnoses Diagnosis Protein-calorie malnutrition, unspecifie d severity documented in this encounter Care Teams Steel Rule Inspector Relationship Specialty Start Date End Date None PCP - General 12/03/19 None documented as of this encounter
--- OUTSIDE RECORDS SUMMARY | 2022-01-29 01:32 | XMS_ITS | Encounter Summary ---
:1940 Author Organization [facility] [place] [address] Care Team Providers Name Role Phone None Primary Care Provider Unavailable Encounter Details Date Type Department Care Team Description 01/29/2022 Infusion Hematology Oncology at [address] [phone] Social History Tobacco Use Types Packs/Day Years Used Date Never Smoker Smokeless Tobacco: Never Used Sex Assigned at Date Recorded Not on file documented as of this encounter Plan of Treatment Upcoming Encounters Date Type Specialty Care Team Description 01/29/2022 Office Visit Hematology and Oncology Michael Romero MD [facility] [place] [address] MEDICAL ONCOLOGY [place], [place] [phone] 02/12/2022 Office Visit Hematology and Oncology Michael Romero MD [facility] [place] [address] MEDICAL ONCOLOGY [place], [place] [phone] 02/12/2022 Infusion Hematology and Oncology 02/26/2022 Office Visit Hematology and Oncology Michael Romero MD [facility] ONCOLOGY [place], [place] [address] (Wo rk) 02/26/2022 Infusion Hematology and Oncology documented as of this encounter Visit Diagnoses Not on filedocumented in this encounter Care Teams Carpenter Mine Relationship Specialty Start Date End Date None PCP - General 12/03/19 None documented as of this encounter
--- OUTSIDE RECORDS SUMMARY | 2022-01-29 01:32 | XMS_ITS | Encounter Summary ---
:1940 Author Organization [facility] Address [address] [place] [address] Care Team Providers Name Role Phone None Primary Care Provider Unavailable Encounter Details Date Type Department Care Team Description 11/20/2021 Unscheduled Hematology/Oncology Lissy Luna, Primar y colon Encounter at [facility] RD cancer with [facility] [address] [facility] metastasis to other [facility] DRIVE site [phone] HEMATOLOGY AND [phone] [place] [address] Social History Tobacco Use Types Packs/Day Years Used Date Never Smoker Smokeless Tobacco: Never Used Sex Assigned at Date Recorded Not on file documented as of this encounter Progress Notes Lissy Luna, RD - 11/20/2021 11:55 AM EDT [facility] Initial Assessment Patient Name: Joy Armstrong Diagnosis: [...] She lives at home with her in [place]. She reports her appetite is poor and her portions have become smaller over the last few months since she started treatment on folfox. She used to drink Boost once daily and would like to have this again. Patient has [place] Medicaid which should cover the cost of this. Nutrition Diagnosis 11/20/2021 Problems Involuntary weight loss related to appetite changes and diagnosis of metastatic colorectal cancer as evidenced by 6# weight loss in the past month (3.3% body weight). Estimated needs based on 80.2 [id number] kcals (25-30 kcal/kg) 80-120 g protein (1-1.5 g/kg) 1 ml/kcal fluids Nutrition Intervention: * Recommend continuing with pattern of 3 meals per day, consider adding snacks regularly to prevent further weight loss. * Add prescription for chocolate or vanilla Boost once daily. Will fax prior authorization to [place] Medicaid. Monitoring and Evaluation: Will follow up [...] Romero MD [facility] [place] [address] [place] [address] 01/29/2022 Infusion Hematology and Oncology 02/12/2022 Office Visit Hematology and Oncology Michael Romero MD [facility] [place] [address] [address] ONCOLOGY [place], [place] [address] 02/12/2022 Infusion Hematology and Oncology 02/26/2022 Office Visit Hematology and Oncology Michael Romero MD [facility] ONCOLOGY [place], [place] [address] (Wo rk) 02/26/2022 Infusion Hematology and Oncology documented as of this encounter Visit Diagnoses Diagnosis 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
--- OUTSIDE RECORDS SUMMARY | 2022-01-29 01:33 | XMS_ITS | Encounter Summary ---
:1940 Author Organization [facility] [place] [address] Care Team Providers Name Role Phone None Primary Care Provider Unavailable Reason for Visit Reason Comments IV Access Chemo held - Port Flush and De-Access Encounter Details Date Type Department Care Team Description 07/16/2021 Infusion Hematology Oncology at [facility] colon cancer with [facility] metastasis to other site [address] [place] [phone] Social History Tobacco Use Types [...] OBJECTIVE LAB DATA: Labs drawn today at [facility]. Wbc 3.96, hgb 12.4, plts 286k, [...] Romero MD [facility] [place] [address] MEDICAL ONCOLOGY [place], [place] [phone] 01/29/2022 Infusion Hematology and Oncology 02/12/2022 Office Visit Hematology and Oncology Michael Romero MD 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
--- OUTSIDE RECORDS SUMMARY | 2022-01-29 01:33 | XMS_ITS | Encounter Summary ---
:1940 Author Organization [place] [address] Care Team Providers Name Role Phone None Primary Care Provider Unavailable Encounter Details Date Type Department Care Team Description 08/21/2021 Office Visit Hematology/Oncology Aaron Romero MD [facility] [place] [address] [facility] [address] [place] [address] [place] [address] intestine, stage [address] [place] [phone] Social History Tobacco Use Types Packs/Day [...] in this encounter Progress Notes Mckenna Farris, STOCK ASSOCIATE - 08/21/2021 10:30 AM EDT Subjective Patient [...] because of significant intra abdominal adhesions Path ([facility] review) - Omentum, mass, excision: [...] eyes today. Soc Hx: , lives in [place], [place] Tob - Never Etoh - None Worked as [employer]. Fam Hx: Father - Mother - breast [...] in the pelvis. She was seen at [facility] and underwent resection on 12/05/2019 - path [...] Michael Romero MD [facility] [place] [address] Mckenna Farris, [address] MEDICAL ONCOLOGY [place], [place] [phone] 01/29/2022 Infusion Hematology and Oncology 02/12/2022 Office Visit Hematology and Oncology Michael Romero MD [facility] [place] [address] Mckenna Farris, [address] MEDICAL ONCOLOGY [place], [place] [phone] 02/12/2022 Infusion Hematology and Oncology 02/26/2022 Office Visit Hematology and Oncology Michael Romero MD [facility] ONCOLOGY [place], [place] [address] (Wo rk) 02/26/2022 Infusion Hematology and Oncology documented as of this encounter Visit Diagnoses Diagnosis Adenocarcinoma of small intestine, stage 4 Malignant neoplasm of small intestine, u nspecified site documented in this encounter Care Teams Clinical Engineering Director Relationship Specialty Start Date End Date None PCP - General 12/03/19 None documented as of this encounter
--- OUTSIDE RECORDS SUMMARY | 2022-01-29 01:33 | XMS_ITS | Encounter Summary ---
:1940 [place] [address] Care Team Providers Name Role Phone None Primary Care Provider Unavailable Encounter Details Date Type Department Care Team Description 05/05/2021 Telephone Hematology and Oncology at Pricila Iverson DO [facility] [place] [facility] Slime snow HEMATOLOGY/[place] [address] [place] [address] [phone] (Wo rk) Social History Tobacco Use Types Packs/Day Years Used Date Never Smoker Smokeless Tobacco: Never Used Sex Assigned at Date Recorded Not on file documented as of this encounter Miscellaneous Notes Telephone Encounter - Pricila Gill DO - 05/05/2021 6:59 PM EST Patient ID: Joy Armstrong : 1940 Call from: Dr. Debbie Méndez, [facility] radiology. Joy Armstrong is a [...] Gill DO Fellow, Hematology and Medical Oncology [facility] Pager: [phone], 05/05/21, 7:02 PM CC: Dr. Romero. documented in this encounter Plan of Treatment Upcoming Encounters Date Type Specialty Care Team Description 01/29/2022 Office Visit Hematology and Oncology Michael Romero MD [facility] [place] [address] [address] MEDICAL ONCOLOGY [place], [place] [phone] 01/29/2022 Infusion Hematology and Oncology 02/12/2022 Office Visit Hematology and Oncology Michael Romero MD [facility] [address] [place] [address] [address] MEDICAL ONCOLOGY [place], [place] [phone] 02/12/2022 Infusion Hematology and Oncology 02/26/2022 Office Visit Hematology and Oncology Michael Romero MD [facility] DR [place]DA [place], [place] [address] (Wo rk) 02/26/2022 Infusion Hematology and Oncology documented as of this encounter Visit Diagnoses Not on filedocumented in this encounter Care Teams Gauge Controller Relationship Specialty Start Date End Date None PCP - General 12/03/19 None documented as of this encounter
--- OUTSIDE RECORDS SUMMARY | 2022-01-29 01:33 | XMS_ITS | Encounter Summary ---
:1940 Author Organization [facility] [place] [address] Care Team Providers Name Role Phone None Primary Care Provider Unavailable Encounter Details Date Type Department Care Team Description 05/26/2021 Notes Only Hematology/Oncology at Claudia Gomes, [facility] OFFICE OF CARE [address] [place] [address] [phone] Social History Tobacco Use Types Packs/Day Years Used Date Never Smoker Smokeless Tobacco: Never Used Sex Assigned at Date Recorded Not on file documented as of this encounter Progress Notes Claudia Gomes MSW - 05/26/2021 11:22 AM EST Reason for Referral: Brief assessment of social and emotional needs. Met with pt during her first infusion to introduce myself and role of manager social media to assess/address barriers to getting to and [...] With pt's permission will apply to the [facility] for gas cards. 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 She has Medicare A&B. She indicated she has applied for financial assistance through [facility]. Advance Directives: Pt has not completed her [...] resources Transportation resources Plan: Informed pt of APPEALS ANALYST availability and contact information. Will follow to assess/address psychosocial needs. KENA Bryan, STOCK WETTER, OSW-C Rn Anesthetist [facility] Add: [place] [facility] janette be mailing pt a few gas cards. Pt was informed and is appreciative of this help. documented in this encounter Plan of Treatment Upcoming Encounters Date Type Specialty Care Team Description 01/29/2022 Office Visit Hematology and Oncology Michael Romero MD [facility] [place] [address] [address] MEDICAL ONCOLOGY [place], [place] [phone] 01/29/2022 Infusion Hematology and Oncology 02/12/2022 Office Visit Hematology and Oncology Michael Romero MD [facility] [place] [address] [address] MEDICAL ONCOLOGY [place], [place] [phone] 02/12/2022 Infusion Hematology and Oncology 02/26/2022 Office Visit Hematology and Oncology Michael Romero MD [facility] ONCOLOGY [place], [place] 0[address] (Wo rk) 02/26/2022 Infusion Hematology and Oncology documented as of this encounter Visit Diagnoses Not on filedocumented in this encounter Care Teams Employment Security Officer Relationship Specialty Start Date End Date None PCP - General 12/03/19 None documented as of this encounter
--- OUTSIDE RECORDS SUMMARY | 2022-01-29 01:33 | XMS_ITS | Encounter Summary ---
:1940 Author Organization [facility] [place] [address] Care Team Providers Name Role Phone None Primary Care Provider Unavailable Encounter Details Date Type Department Care Team Description 07/16/2021 Notes Only Hematology/Oncology at Claudia Gomes MSW [facility] OFFICE OF CARE [address] [place] [address] [phone] Social History Tobacco Use Types Packs/Day Years [...] help was enough. Encourage her to let US MARKETING DIRECTOR or herclinic nurse know next visit and we can explore other resources. Reminded pt of US MARKETING DIRECTOR availability and contact information. Will continue to follow. Supportive Counseling Food insecurity resources Transportation resources documented in this encounter Plan of Treatment Upcoming Encounters Date Type Specialty Care Team Description 01/29/2022 Office Visit Hematology and Oncology Michael Romero MD [facility] [place] [address] [address] MEDICAL ONCOLOGY [place], [place] [address] 01/29/2022 Infusion Hematology and Oncology 02/12/2022 Office Visit Hematology and Oncology Michael Romero MD [facility] [place] [address] MEDICAL ONCOLOGY [place], [place] [address] 02/12/2022 Infusion Hematology and Oncology 02/26/2022 Office Visit Hematology and Oncology Michael Romero MD [facility] [address] [place], [place] [address] (Wo rk) 02/26/2022 Infusion Hematology and Oncology documented as of this encounter Visit Diagnoses Not on filedocumented in this encounter Care Teams Intranet Specialist Relationship Specialty Start Date End Date None PCP - General 12/03/19 None documented as of this encounter
--- OUTSIDE RECORDS SUMMARY | 2022-01-29 01:33 | XMS_ITS | Encounter Summary ---
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 Michael Romero MD [place], Peter Benjamin, [facility] Slime Jacobson MD ONCOLOGY [address] [place] [address] [place] [address] Fax: Referral ID Status Reason Start Date Expiration Date Visits V isits Requested Authorized [id number] Closed Consult, 05/08/2021 11/04/2021 1 1 Test & Treat Encounter Details Date Type Department Care Team Description 05/08/2021 TH Visit Hematology/Oncology Michael Romero Prima ry colon cancer (TeleHealth) at [facility] MD with metastasis to [address] [place] [address] MEDICAL other site [place], [place] CENTER [address] ONCOLOGY [phone] [place], [place] [address] Social History Tobacco Use Types [...] because of significant intra abdominal adhesions Path [place] [place] - Omentum, mass, [...] or feet. Soc Hx: , lives in [place], [place] Tob - Never Etoh - None Worked as [employer]. Fam Hx: Father - Mother - breast [...] in the pelvis. She was seen at [facility] and underwent resection on 12/05/2019 - path [...] the absence of cold, laryngeal dysesthesia, fatigue, angina/[place], hypersensitivity reactions and others.?She was given informationalhandouts [...] Visit Hematology and Oncology Michael Romero MD [facility] [place] [address] MEDICAL ONCOLOGY [place], [place] [address] 01/29/2022 Infusion Hematology and Oncology 02/12/2022 Office Visit Hematology and Oncology Michael Romero MD [facility] [place] [address] ONCOLOGY [place], [place] [address] 02/12/2022 Infusion Hematology and Oncology 02/26/2022 Office Visit Hematology and Oncology Michael Romero MD [facility] ONCOLOGY [place], [place] [address] (Wo rk) 02/26/2022 Infusion Hematology [...] site documented in this encounter Care Teams Test Operator Relationship Specialty Start Date End Date None PCP - General 12/03/19 None documented as of this encounter
--- OUTSIDE RECORDS SUMMARY | 2022-01-29 01:33 | XMS_ITS | Encounter Summary ---
:1940 Author Organization [facility] [place] [address] Care Team Providers Name Role Phone None Primary Care Provider Unavailable Reason for Visit Reason Comments IV Access Port flush only Encounter Details Date Type Department Care Team Description 07/10/2021 Infusion Hematology Oncology at [facility] colon cancer with [facility] metastasis to other site [address] [place] [phone] Social History Tobacco Use Types [...] low ANC IV ACCESS: Mediport accessed by [facility] BLOOD RETURN: yes ANY S/S OF [...] Oncology Michael Romero MD [facility] [place] [address] Mckenna Farris APRN [address] [place] [address] DR MEDICAL ONCOLOGY [place], [place] [phone] 01/29/2022 Infusion Hematology and Oncology 02/12/2022 Office Visit Hematology and Oncology Michael Romero MD [facility] [place] [address] [address] [place] [address] 02/12/2022 Infusion Hematology and Oncology 02/26/2022 Office Visit Hematology and Oncology Michael Romero MD [facility] [address] [place], [place] [address] (Wo rk) 02/26/2022 Infusion Hematology and Oncology documented as of this encounter Visit Diagnoses Diagnosis 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
--- OUTSIDE RECORDS SUMMARY | 2022-01-29 01:33 | XMS_ITS | Encounter Summary ---
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 ?? She was seen at [facility] and underwent resection on 12/05/2019 - path [...] the absence of cold, laryngeal dysesthesia, fatigue, angina/[place], hypersensitivity reactions and others.?She??was given informational handouts [...] metastatic abdominal nodules. Joy returns to the [facility] oncology clinic in [facility] today accompanied by her Romero for [...] done about an hour before treatment at [facility]. She had labs 05/20/21 which will [...] metastatic abdominal nodules. Joy returns to the [facility] oncology clinic in [facility] today accompanied by her Romero for review of labs andthe new chemotherapy treatment plan. She had previously met with Dr. Romero to discuss chemo therapyoptions. (No chemotherapy teaching sessions were scheduled.) CBC and CMP were reviewed with Joy and Romero today. They verbalized an understanding of the chemotherapy treatment plan. Prochlorperazine Prescription sent to [facility]. C1D1 Folfox 05/26/21. Pump disconnect teaching planned for C1. documented in this encounter Plan of Treatment Upcoming Encounters Date Type Specialty Care Team Description 01/29/2022 Office Visit Hematology and Oncology Michael Romero MD [facility] [place] [address] Mckenna Farris APRN [address] [place] [address] ONCOLOGY [place], [place] [phone] 01/29/2022 Infusion Hematology and Oncology 02/12/2022 Office Visit Hematology and Oncology Michael Romero MD [facility] [place] [address] Mckenna Farris TERMITE CONTROL TECHNICIAN [address] [place] [address] ONCOLOGY [place], [place] [address] 02/12/2022 Infusion Hematology and Oncology 02/26/2022 Office Visit Hematology and Oncology Michael Romero MD 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
--- OUTSIDE RECORDS SUMMARY | 2022-01-29 01:33 | XMS_ITS | Encounter Summary ---
:1940 Author Organization [facility] 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 Soc Hx: , lives in [place], [place] Tob - Never Etoh - None Worked as [employer]. Fam Hx: Father - Mother - breast [...] in the pelvis. She was seen [place] [facility] and underwent resection on 12/05/2019 - path [...] the absence of cold, laryngeal dysesthesia, fatigue, angina/[place], hypersensitivity reactions and others.?She was given informationalhandouts [...] Romero MD [facility] [place] [address] Mckenna Farris APRN [address] [place] [address] DR MEDICAL ONCOLOGY [place], [place] [phone] 01/29/2022 Infusion Hematology and Oncology 02/12/2022 Office Visit Hematology and Oncology Michael Romero MD [facility] [place] [address] Mckenna Farris APRN [address] [place] [address] DR MEDICAL ONCOLOGY [place], [place] [phone] 02/12/2022 Infusion Hematology and Oncology 02/26/2022 Office Visit Hematology and Oncology Michael Romero MD [facility] DR ONCOLOGY [place], [place] 0375 (Wo rk) 02/26/2022 Infusion Hematology and Oncology documented as of this encounter Visit Diagnoses Diagnosis Primary colon cancer with metastasis to other site 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
--- OUTSIDE RECORDS SUMMARY | 2022-01-29 01:33 | XMS_ITS | Encounter Summary ---
:1940 [place] [address] Care Team Providers Name Role Phone None Primary Care Provider Unavailable Encounter Details Date Type Department Care Team Description 10/04/2020 Ancillary Procedure Radiology Library at Jorge Romero [facility] [place] [address] ONCOLOGY [phone] [place], [place] [address] (Wo rk) Social History Tobacco Use Types Packs/Day Years Used Date Never Smoker Smokeless Tobacco: Never Used Sex Assigned at Date Recorded Not on file documented as of this encounter Plan of Treatment Upcoming Encounters Date Type Specialty Care Team Description 01/29/2022 Office Visit Hematology and Oncology Michael Romero MD [facility] [place] [address] Mckenna Farris [address] MEDICAL ONCOLOGY [place], [place] [address] 01/29/2022 Infusion Hematology and Oncology 02/12/2022 Office Visit Hematology and Oncology Michael Romero MD [facility] [place] [address] Mckenna Farris [address] MEDICAL ONCOLOGY [place], [place] [phone] 02/12/2022 Infusion Hematology and Oncology 02/26/2022 Office Visit Hematology and Oncology Michael Romero MD [facility] ER DR [place] [address] (Wo rk) 02/26/2022 Infusion Hematology [...] Organization Address City/State/ZIP Code Phon e Number [place], [place] documented in this encounter Visit Diagnoses Not on filedocumented in this encounter Care Teams Postie Relationship Specialty Start Date End Date None PCP - General 12/03/19 None documented as of this encounter
--- OUTSIDE RECORDS SUMMARY | 2022-01-29 01:33 | XMS_ITS | Encounter Summary ---
:1940 Author Organization [facility] [place] [address] Care Team Providers Name Role Phone None Primary Care Provider Unavailable Reason for Referral Diagnostic Test (Routine) - Authorized Specialty Diagnoses / Procedures Referred By Contact Refer red To Contact Radiology Diagnoses Adenocarcinoma of small intestine, stage 4 Michael Romero MD Procedures CT Chest Abdomen Pelvis w Contrast (Generic) [facility] [place] [address] Referral ID Status Reason Start Expiration Visits Visits Date Date Requested Authorized [id number] Authorized Specialty 09/25/2021 03/27/2023 1 1 Service Requested Encounter Details Date Type Department Care Team Description 09/25/2021 Office Visit Hematology/Oncology Michael Romero Adeno carcinoma of small at [facility] MD Indy intestine, stage [address] [place] [phone] ONCOLOGY [phone] [place], [place] [address] Social History Tobacco Use Types [...] of significant intra abdominal adhesions Path ([facility] review) - Omentum, mass, excision: [...] the same. Soc Hx: , lives in [place], [place] Tob - Never Etoh - None Worked as [employer] Fam Hx: Father - Mother - breast [...] in the pelvis. She was seen at [facility] and underwent resection on 12/05/2019 - path [...] the absence of cold, laryngeal dysesthesia, fatigue, angina/[place], hypersensitivity reactions and others.?She was given informationalhandouts [...] Romero MD [facility] [place] [address] Mckenna Farris [address] [place] [address] 01/29/2022 Infusion Hematology and Oncology 02/12/2022 Office Visit Hematology and Oncology Michael Romero MD [facility] [place] [address] Mckenna Farris APRN [address] [place] [address] [place] [address] 02/12/2022 Infusion Hematology and Oncology 02/26/2022 Office Visit Hematology and Oncology Michael Romero MD [facility] DR ONCOLOGY [place], [place] [address] (Wo rk) 02/26/2022 Infusion Hematology [...] site documented in this encounter Care Teams Adding Machine Mechanic Relationship Specialty Start Date End Date None PCP - General 12/03/19 None documented as of this encounter
--- OUTSIDE RECORDS SUMMARY | 2022-01-29 01:33 | XMS_ITS | Encounter Summary ---
:1940 Author Organization [facility] [place] [address] Care Team Providers Name Role Phone None Primary Care Provider Unavailable Reason for Visit Reason Comments Chemotherapy Folfox # 2 Treatment/Therapy Plan Authorization (Routine) - Authorized Specialty Diagnoses / Procedures Referred By Contact Refer red To Contact Diagnoses Primary colon cancer with metastasis to other site Michael Romero MD Stj Hem Onc Infusion Procedures [facility] AMB ONC GI COLORECTAL CANCER - FOLFOX-6 (14 DAY) [address] [place] [phone] Fax: Referral ID Status Reason Start Date Expiration Date Visits V isits Requested Authorized [id number] Authorized 05/08/2021 03/03/2022 20 20 Encounter Details Date Type Department Care Team Description 06/12/2021 Infusion Hematology Oncology at [facility] colon cancer with [facility] metastasis to other site [address] [place] [phone] Social History Tobacco Use Types [...] Leon RN and Arlet Santillan pharmacist 5fu MILLER .pump checked after 20 minutes of running [...] Romero MD [facility] [place] [address] MEDICAL ONCOLOGY [place], [place] [phone] 01/29/2022 Infusion Hematology and Oncology 02/12/2022 Office Visit Hematology and Oncology Michael Romero MD [facility] [place] [address] [address] MEDICAL ONCOLOGY [place], [place] [address] 02/12/2022 Infusion Hematology and Oncology 02/26/2022 Office Visit Hematology and Oncology Michael Romero MD [facility] DR [place] [address] (Wo rk) 02/26/2022 Infusion Hematology [...] Routine documented in this encounter Care Teams Cheese Supervisor Relationship Specialty Start Date End Date None PCP - General 12/03/19 None documented as of this encounter
--- OUTSIDE RECORDS SUMMARY | 2022-01-29 01:33 | XMS_ITS | Encounter Summary ---
:1940 [place] [address] Care Team Providers Name Role Phone None Primary Care Provider Unavailable Encounter Details Date Type Department Care Team Description 07/22/2021 Ancillary Procedure Radiology Library at Jorge Romero [facility] [place] [address] ONCOLOGY [phone] [place], [place] [address] (Wo rk) Social History Tobacco Use Types Packs/Day Years Used Date Never Smoker Smokeless Tobacco: Never Used Sex Assigned at Date Recorded Not on file documented as of this encounter Plan of Treatment Upcoming Encounters Date Type Specialty Care Team Description 01/29/2022 Office Visit Hematology and Oncology Michael Romero MD [facility] [place] [address] Mckenna Farris [address] MEDICAL ONCOLOGY [place], [place] [address] 01/29/2022 Infusion Hematology and Oncology 02/12/2022 Office Visit Hematology and Oncology Michael Romero MD [facility] [place] [address] Mckenna Farris [address] MEDICAL ONCOLOGY [place], [place] [phone] 02/12/2022 Infusion Hematology and Oncology 02/26/2022 Office Visit Hematology and Oncology Michael Romero MD [facility] DR [place], [place] [address] (Wo rk) 02/26/2022 Infusion Hematology [...] Organization Address City/State/ZIP Code Phon e Number [place], [place] documented in this encounter Visit Diagnoses Not on filedocumented in this encounter Care Teams Lumber Trimmer Relationship Specialty Start Date End Date None PCP - General 12/03/19 None documented as of this encounter
--- OUTSIDE RECORDS SUMMARY | 2022-01-29 01:33 | XMS_ITS | Encounter Summary ---
:1940 [place] [address] Care Team Providers Name Role Phone None Primary Care Provider Unavailable Encounter Details Date Type Department Care Team Description 10/31/2020 Ancillary Procedure Radiology Library at Jorge Romero [facility] [place] [address] ONCOLOGY [phone] [place], [place] 0375 (Wo rk) Social History Tobacco Use Types Packs/Day Years Used Date Never Smoker Smokeless Tobacco: Never Used Sex Assigned at Date Recorded Not on file documented as of this encounter Plan of Treatment Upcoming Encounters Date Type Specialty Care Team Description 01/29/2022 Office Visit Hematology and Oncology Michael Romero MD [facility] [place] [address] Mckenna Farris [address] MEDICAL ONCOLOGY [place], [place] [address] 01/29/2022 Infusion Hematology and Oncology 02/12/2022 Office Visit Hematology and Oncology Michael Romero MD [facility] [place] [address] Mckenna Farris [address] MEDICAL ONCOLOGY [place], [place] [phone] 02/12/2022 Infusion Hematology and Oncology 02/26/2022 Office Visit Hematology and Oncology Michael Romero MD [facility] ER [address] [place], [place] 0[address] (Wo rk) 02/26/2022 Infusion Hematology [...] Time Received Time / Laterality Volume Narrative [facility] - 04/16/2021 10:59 AM EST This exam is auto-finalizing. It's purpo se is for storage only. Michael Romero MD IMG FILM LIBRARY ORDERABLES Performing Organization Address City/State/ZIP Code Phon e Number [place], [place] documented in this encounter Visit Diagnoses Not on filedocumented in this encounter Care Teams Salvage Engineer Relationship Specialty Start Date End Date None PCP - General 12/03/19 None documented as of this encounter
--- OUTSIDE RECORDS SUMMARY | 2022-01-29 01:33 | XMS_ITS | Encounter Summary ---
:1940 Author Organization [facility] [place] [address] Care Team Providers Name Role Phone None Primary Care Provider Unavailable Reason for Visit Reason Comments IV Access Port flush Encounter Details Date Type Department Care Team Description 06/29/2021 Infusion Hematology Oncology at [facility] colon cancer with [facility] metastasis to other site [address] [place] [phone] Social History Tobacco Use Types [...] well. Reminded to call the clinic or [facility] with any questions or concerns. PLAN: Return to clinic per routine. documented in this encounter Plan of Treatment Upcoming Encounters Date Type Specialty Care Team Description 01/29/2022 Office Visit Hematology and Oncology Michael Romero MD [facility] [place] [address] MEDICAL ONCOLOGY [place], [place] [phone] 01/29/2022 Infusion Hematology and Oncology 02/12/2022 Office Visit Hematology and Oncology Michael Romero MD [facility] [place] [address] MEDICAL ONCOLOGY [place], [place] [address] 02/12/2022 Infusion Hematology and Oncology 02/26/2022 Office Visit Hematology and Oncology Michael oRmero MD [facility] ONCOLOGY [place], [place] 0375 (Wo rk) 02/26/2022 Infusion Hematology and Oncology documented as of this encounter Visit Diagnoses Diagnosis Primary colon cancer with metastasis to other site documented in this encounter Care Teams Machine Taper Relationship Specialty Start Date End Date None PCP - General 12/03/19 None documented as of this encounter
--- OUTSIDE RECORDS SUMMARY | 2022-01-29 01:33 | XMS_ITS | Encounter Summary ---
:1940 Author Organization [facility] [place] [address] Care Team Providers Name Role Phone None Primary Care Provider Unavailable Encounter Details Date Type Department Care Team Description 08/17/2021 Orders Only Hematology/Oncology at [facility] Mckenna[address] MEDICAL ONCOLOGY [facility] [phone] Social History Tobacco Use Types Packs/Day Years Used Date Never Smoker Smokeless Tobacco: Never Used Sex Assigned at Date Recorded Not on file documented as of this encounter Plan of Treatment Upcoming Encounters Date Type Specialty Care Team Description 01/29/2022 Office Visit Hematology and Oncology Michael Romero MD [facility] [place] [address] Mckenna Farris [address] ONCOLOGY [place], [place] [address] 01/29/2022 Infusion Hematology and Oncology 02/12/2022 Office Visit Hematology and Oncology Michael Romero MD [facility] [place] [address] Mckenna Farris [address] MEDICAL ONCOLOGY [place], [place] [address] 02/12/2022 Infusion Hematology and Oncology 02/26/2022 Office Visit Hematology and Oncology Michael Romero MD [facility] ONCOLOGY [place], [place] 0375 (Wo rk) 02/26/2022 Infusion Hematology and Oncology documented as of this encounter Visit Diagnoses Not on filedocumented in this encounter Care Teams Salvage Worker Relationship Specialty Start Date End Date None PCP - General 12/03/19 None documented as of this encounter
--- OUTSIDE RECORDS SUMMARY | 2022-01-29 01:33 | XMS_ITS | Encounter Summary ---
:1940 Author Organization [facility] [place] [address] Care Team Providers Name Role Phone None Primary Care Provider Unavailable Encounter Details Date Type Department Care Team Description 10/09/2021 Office Visit Hematology/Oncology Michael Romero Adeno carcinoma of small at [facility] MD Indy intestine, stage 4 [address] [facility] [phone] ONCOLOGY [phone] [place] [address] Social History Tobacco Use Types Packs/Day Years [...] because of significant intra abdominal adhesions Path ([facility] review) - Omentum, mass, excision: - Metastatic [...] is stable. Soc Hx: , lives in [place], [place] Tob - Never Etoh - None Worked as [employer] [place] [employer]. Fam Hx: Father - Mother - breast [...] She [place] [facility] [place] resection on [...] MD [facility] [place] [address] ONCOLOGY [place], [place] [address] 01/29/2022 Infusion Hematology and Oncology 02/12/2022 Office Visit Hematology and Oncology Michael Romero MD [facility] [place] [address] ONCOLOGY [place], [place] [address] 02/12/2022 Infusion Hematology and Oncology 02/26/2022 Office Visit Hematology and Oncology Michael Romero MD [facility] ONCOLOGY [place], [place] 0375 (Wo rk) 02/26/2022 Infusion Hematology and Oncology documented as of this encounter Visit Diagnoses Diagnosis Adenocarcinoma of small intestine, stage 4 Malignant neoplasm of small intestine, u nspecified site documented in this encounter Care Teams Roofing Contractor Relationship Specialty Start Date End Date None PCP - General 12/03/19 None documented as of this encounter
--- OUTSIDE RECORDS SUMMARY | 2022-01-29 01:33 | XMS_ITS | Encounter Summary ---
:1940 Author Organization [facility] [place] [address] Care Team Providers Name Role Phone None Primary Care Provider Unavailable Reason for Visit Reason Comments IV Medication Cycle 5, Day 1 - Folfox, no push Treatment/Therapy Plan Authorization (Routine) - Authorized Specialty Diagnoses / Procedures Referred By Contact Refer red To Contact Diagnoses Primary colon cancer with metastasis to other site Michael Romero MD Stj Hem Onc Infusion Procedures [facility] AMB ONC GI COLORECTAL CANCER - FOLFOX-6 (14 DAY) [address] [place] [phone] Fax: Referral ID Status Reason Start Date Expiration Date Visits V isits Requested Authorized [id number] Authorized 05/08/2021 03/03/2022 20 20 Encounter Details Date Type Department Care Team Description 08/07/2021 Infusion Hematology Oncology at [facility] colon cancer with [facility] metastasis to other site [address] [place] [phone] Social History Tobacco Use Types [...] patient's height, weight and BSA by Lori Soto RN and Staff Pharmacist(s). REACTIONS (DESCRIPTION, TIME, INTERVENTION AND EFFECTIVENESS) none ASSESSMENT: Joy was awake, alert and tolerated treatment well. CADD pump provided by [employer], pump was double checked by Lori Soto, [...] Romero MD [facility] [place] [address] ONCOLOGY [place], [place] [address] 01/29/2022 Infusion Hematology and Oncology 02/12/2022 Office Visit Hematology and Oncology Michael Romero MD [facility] [place] [address] MEDICAL ONCOLOGY [place], [place] [address] 02/12/2022 Infusion Hematology and Oncology 02/26/2022 Office Visit Hematology and Oncology Michael Romero MD [facility] [address] [place] [phone] ( rk) 02/26/2022 Infusion Hematology and Oncology documented [...] Routine documented in this encounter Care Teams Service Advocate Contact Relationship Specialty Start Date End Date None PCP - General 12/03/19 None documented as of this encounter
--- OUTSIDE RECORDS SUMMARY | 2022-01-29 01:33 | XMS_ITS | Encounter Summary ---
:1940 [place] [address] Care Team Providers Name Role Phone None Primary Care Provider Unavailable Encounter Details Date Type Department Care Team Description 06/28/2021 Telephone Hematology and Oncology at Nicolasa Goodson [facility] [place] [address] HEMATOLOGY/ONCOLOGY [phone] [place], [place] 0375 (Wo rk) Social History Tobacco [...] oncology/hematology team. Nicolasa Quintana M.D. Hematology/Oncology Fellow [facility] Pager # [phone] 06/28/21, 12:10 PM documented in this encounter Plan of Treatment Upcoming Encounters Date Type Specialty Care Team Description 01/29/2022 Office Visit Hematology and Oncology Michael Romero MD [facility] [place] [address] [address] ONCOLOGY [place], [place] [phone] 01/29/2022 Infusion Hematology and Oncology 02/12/2022 Office Visit Hematology and Oncology Michael Romero MD [facility] [place] [address] ONCOLOGY [place], [place] [address] 02/12/2022 Infusion Hematology and Oncology 02/26/2022 Office Visit Hematology and Oncology Michael Romero MD [facility] [address] [place], [place] 0375 (Wo rk) 02/26/2022 Infusion Hematology and Oncology documented as of this encounter Visit Diagnoses Not on filedocumented in this encounter Care Teams Breakfast Host Relationship Specialty Start Date End Date None PCP - General 12/03/19 None documented as of this encounter
--- OUTSIDE RECORDS SUMMARY | 2022-01-29 01:33 | XMS_ITS | Encounter Summary ---
:1940 Author Organization [facility] [address] Care Team Providers Name Role Phone None Primary Care Provider Unavailable Reason for Visit Consultation (Routine) - Closed Specialty Diagnoses / Procedures Referred By Contact Refer red To Contact Hematology and Diagnoses Malignant neoplasm of abdomen Malignant neoplasm of abdomen Jamie Jean-Baptiste Gregory H, Oncology Procedures TREATMENT [employer] MD MANAN Camejo [address] [place] [address] [facility] [place] [phone] [place], [place] Fax: Referral ID Status Reason Start Date Expiration Date Visits Requ ested Visits Authorized [id number] Closed 03/17/2021 03/17/2022 1 1 Encounter Details Date Type Department Care Team Description 04/17/2021 Office Visit Hematology/Oncology Aaron Romero MD [facility] [place] [address] 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 She works on [employer] and reads also. Once has some pain [...] or feet. Soc Hx: , lives in [place], [place] Tob - Never Etoh - None Worked as [employer]. Fam Hx: Father - Mother - breast [...] pelvis. [place] [facility] [place] on 12/05/2019 - path [...] the absence of cold, laryngeal dysesthesia, fatigue, angina/[place], hypersensitivity reactions and others.?She was given informationalhandouts [...] be performed on the omental biopsy. Zita Jamison RN - 04/17/2021 11:00 AM EST MEDICAL [...] [ ] Not satisfied SOCIAL ASSESSMENT: See ED social assessment information entered. Support Systems: Treva Jasso. [facility] transportation plan: [X ]private vehicle [...] Oncology Michael Romero MD [facility] [place] [address] Mckenna Farris, PORTER [facility] [address] [place] [address] [place] [address] 01/29/2022 Infusion Hematology and Oncology 02/12/2022 Office Visit Hematology and Oncology Michael Romero MD [facility] [place] [address] [place] [address] 02/12/2022 Infusion Hematology and Oncology 02/26/2022 Office Visit Hematology and Oncology Michael Romero MD [facility] ONCOLOGY [place], [place] 0375 (Wo rk) 02/26/2022 Infusion Hematology and Oncology Scheduled Orders Name Type Priority Associated Diagnoses Order S chedule Specimen to Pathology Pathology/Cyt Routine Stage IV adenocarc inoma Ordered: Additional Testing ology of small bowel 022 CBC (with Diff) Lab Routine Stage IV adenocarcinoma E xpected: of small bowel 05/01/2021 (Approximate), Expires: 04/17/2022 Comprehensive metabolic Lab Routine Stage IV adenocar cinoma Expected: panel (non-fasting) of small bowel 2021 (Approximate), Expires: 04/17/2022 documented as of this encounter Visit Diagnoses Diagnosis 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
--- OUTSIDE RECORDS SUMMARY | 2022-01-29 01:33 | XMS_ITS | Encounter Summary ---
:1940 [place] [address] Care Team Providers Name Role Phone None Primary Care Provider Unavailable Encounter Details Date Type Department Care Team Description 05/05/2021 Ancillary Procedure Radiology Library at Jorge Romero [facility] [place] [address] ONCOLOGY [phone] [place], [place] 0375 (Wo rk) Social History Tobacco Use Types Packs/Day Years Used Date Never Smoker Smokeless Tobacco: Never Used Sex Assigned at Date Recorded Not on file documented as of this encounter Plan of Treatment Upcoming Encounters Date Type Specialty Care Team Description 01/29/2022 Office Visit Hematology and Oncology Michael Romero MD [facility] [place] [address] Mckenna Farris [address] MEDICAL ONCOLOGY [place], [place] [address] 01/29/2022 Infusion Hematology and Oncology 02/12/2022 Office Visit Hematology and Oncology Michael Romero MD [facility] [place] [address] Mckenna Farris [address] MEDICAL ONCOLOGY [place], [place] [phone] 02/12/2022 Infusion Hematology and Oncology 02/26/2022 Office Visit Hematology and Oncology Michael Romero MD [facility] ER [address] [place], [place] [address] (Wo rk) 02/26/2022 Infusion Hematology [...] Organization Address City/State/ZIP Code Phon e Number [place], [place] documented in this encounter Visit Diagnoses Not on filedocumented in this encounter Care Teams Dealer Account Manager Relationship Specialty Start Date End Date None PCP - General 12/03/19 None documented as of this encounter
--- OUTSIDE RECORDS SUMMARY | 2022-01-29 01:33 | XMS_ITS | Encounter Summary ---
:1940 Author Organization [facility] [place] [address] Care Team Providers Name Role Phone None Primary Care Provider Unavailable Encounter Details Date Type Department Care Team Description 06/25/2021 [facility] [place] [facility] [address] [place], [place] [phone] Social History Tobacco Use [...] and shewanted to make sure that approved. [phone] best call back number RN Follow-up Discussed [...] Romero MD [facility] [place] [address] MEDICAL ONCOLOGY [place], [place] [address] 01/29/2022 Infusion Hematology and Oncology 02/12/2022 Office Visit Hematology and Oncology Michael Romero MD [facility] [place] [address] MEDICAL ONCOLOGY [place], [place] [address] 02/12/2022 Infusion Hematology and Oncology 02/26/2022 Office Visit Hematology and Oncology Michael Romero MD [facility] ONCOLOGY [place], [place] 0375 (Wo rk) 02/26/2022 Infusion Hematology and Oncology documented as of this encounter Visit Diagnoses Not on filedocumented in this encounter Care Teams Documentation Writer Relationship Specialty Start Date End Date None PCP - General 12/03/19 None documented as of this encounter
--- OUTSIDE RECORDS SUMMARY | 2022-01-29 01:33 | XMS_ITS | Encounter Summary ---
:1940 Author Organization [facility] [place] [address] Care Team Providers Name Role Phone None Primary Care Provider Unavailable Reason for Referral Diagnostic Test (Routine) - Authorized Specialty Diagnoses / Procedures Referred By Contact Refer red To Contact Radiology Diagnoses Adenocarcinoma of small intestine, stage 4 Michael Romero MD Procedures CT Chest Abdomen Pelvis w Contrast (Generic) [facility] [place] [address] Referral ID Status Reason Start Expiration Visits Visits Date Date Requested Authorized [id number] Authorized Specialty 07/10/2021 01/09/2023 1 1 Service Requested Encounter Details Date Type Department Care Team Description 07/10/2021 Office Visit Hematology/Oncology Araon Romero MD [facility] [place] [address] [facility] [address] [place] [address] MEDICAL ONCOLOGY [place], [place] [phone] intestine, stage [address] [place] [phone] Social History Tobacco Use Types Packs/Day [...] of significant intra abdominal adhesions Path ([facility] review) - Omentum, mass, excision: [...] for her. Soc Hx: , lives in [place], [place] Tob - Never Etoh - None Worked as [employer] [place] [employer]. Fam Hx: Father - Mother - breast [...] pelvis. [place] [facility] [place] 12[place]05[place] - path [...] the absence of cold, laryngeal dysesthesia, fatigue, angina/[place], hypersensitivity reactions and others.?She was given informationalhandouts [...] Romero MD [facility] [address] MEDICAL ONCOLOGY [place], [place] [phone] 01/29/2022 Infusion Hematology and Oncology 02/12/2022 Office Visit Hematology and Oncology Michael Romero MD [facility] [address] MEDICAL ONCOLOGY [place], [place] [address] 02/12/2022 Infusion Hematology and Oncology 02/26/2022 Office Visit Hematology and Oncology Michael Romero MD [facility] ONCOLOGY [place], [place] 0375 (Wo rk) 02/26/2022 Infusion Hematology [...] site documented in this encounter Care Teams Physical Science Professor Relationship Specialty Start Date End Date None PCP - General 12/03/19 None documented as of this encounter
--- OUTSIDE RECORDS SUMMARY | 2022-01-29 01:33 | XMS_ITS | Encounter Summary ---
:1940 Author Organization [facility] [place] [address] Care Team Providers Name Role Phone None Primary Care Provider Unavailable Reason for Visit Reason Comments Chemotherapy C10D1 Folfox Treatment/Therapy Plan Authorization (Routine) - Authorized Specialty Diagnoses / Procedures Referred By Contact Refer red To Contact Diagnoses Primary colon cancer with metastasis to other site Michael Romero MD Stj Hem Onc Infusion Procedures [facility] AMB ONC GI COLORECTAL CANCER - FOLFOX-6 (14 DAY) [address] [place] [phone] Fax: Referral ID Status Reason Start Date Expiration Date Visits V isits Requested Authorized [id number] Authorized 05/08/2021 03/03/2022 20 20 Encounter Details Date Type Department Care Team Description 10/23/2021 Infusion Hematology Oncology at [facility] colon cancer with [facility] metastasis to other site [address] [place] [phone] Social History Tobacco Use Types [...] infusion chemotherapy via CADD pump provided by [employer]. Fluorouracil 2280 mg over 46 hours, IV [...] Romero MD [facility] [address] [address] ONCOLOGY [place], [place] [address] 01/29/2022 Infusion Hematology and Oncology 02/12/2022 Office Visit Hematology and Oncology Michael Romero MD [facility] [place] [address] MEDICAL ONCOLOGY [place], [place] [address] 02/12/2022 Infusion Hematology and Oncology 02/26/2022 Office Visit Hematology and Oncology Michael Romero MD [facility] [address] [place], [place] 0375 (Wo rk) 02/26/2022 Infusion Hematology [...] Routine documented in this encounter Care Teams Assemblies And Installations Inspector Relationship Specialty Start Date End Date None PCP - General 12/03/19 None documented as of this encounter
--- OUTSIDE RECORDS SUMMARY | 2022-01-29 01:33 | XMS_ITS | Encounter Summary ---
:1940 Author Organization [facility] [place] [address] Care Team Providers Name Role Phone None Primary Care Provider Unavailable Encounter Details Date Type Department Care Team Description 06/26/2021 Office Visit Hematology/Oncology Aaron Romero MD [facility] [place] [address] Stage IV adenocarcinoma at [facility] Mckenna Farris APRN [address] [place] [address] [place] [address] of small bowel [address] [place] [phone] Social History Tobacco Use Types Packs/Day [...] in this encounter Progress Notes Mckenna Farris, BOX BENDER - 06/26/2021 10:00 AM EDT Subjective Patient [...] the pelvis. ?? She was seen at [facility] and underwent resection on 12/05/2019 - path [...] the absence of cold, laryngeal dysesthesia, fatigue, angina/ME, hypersensitivity reactions and others.?She??was given informational handouts [...] questions/concerns or new symptoms. Mckenna Farris MSN, BOX BENDER, AOCNP Medical Oncology documented in this encounter Plan of Treatment Upcoming Encounters Date Type Specialty Care Team Description 01/29/2022 Office Visit Hematology and Oncology Michael Romero MD [facility] [place] [address] Mckenna Farris APRN [address] [place] [address] [place] [address] 01/29/2022 Infusion Hematology and Oncology 02/12/2022 Office Visit Hematology and Oncology Michael Romero MD [facility] [place] [address] Mckenna Farris APRN [address] [place] [address] [place] [address] 02/12/2022 Infusion Hematology and Oncology 02/26/2022 Office Visit Hematology and Oncology Michael Romero MD [facility] ONCOLOGY [place], [place] [address] (Wo rk) 02/26/2022 Infusion Hematology and Oncology documented as of this encounter Visit Diagnoses Diagnosis Stage IV adenocarcinoma of small bowel Malignant neoplasm of small intestine, u nspecified site documented in this encounter Care Teams Field Producer Relationship Specialty Start Date End Date None PCP - General 12/03/19 None documented as of this encounter
--- OUTSIDE RECORDS SUMMARY | 2022-01-29 01:33 | XMS_ITS | Encounter Summary ---
:1940 Author Organization [facility] [place] [address] Care Team Providers Name Role Phone None Primary Care Provider Unavailable Encounter Details Date Type Department Care Team Description 05/22/2021 Orders Only Hematology/Oncology at [address] HEMATOLOGY [place] [phone] [place], [place] [address] (Wo rk) Social History Tobacco Use Types Packs/Day Years Used Date Never Smoker Smokeless Tobacco: Never Used Sex Assigned at Date Recorded Not on file documented as of this encounter Plan of Treatment Upcoming Encounters Date Type Specialty Care Team Description 01/29/2022 Office Visit Hematology and Oncology Michael Romero MD [facility] [place] [address] [address] MEDICAL ONCOLOGY [place], [place] [address] 01/29/2022 Infusion Hematology and Oncology 02/12/2022 Office Visit Hematology and Oncology Michael Romero MD [facility] [place] [address] [address] MEDICAL ONCOLOGY [place], [place] [id number] 02/12/2022 Infusion Hematology and Oncology 02/26/2022 Office Visit Hematology and Oncology Michael Rmoero MD [facility] ONCOLOGY [place], [place] [address] (Wo rk) 02/26/2022 Infusion Hematology and Oncology documented as of this encounter Visit Diagnoses Not on filedocumented in this encounter Care Teams Fast Food Server Relationship Specialty Start Date End Date None PCP - General 12/03/19 None documented as of this encounter
--- OUTSIDE RECORDS SUMMARY | 2022-01-29 01:33 | XMS_ITS | Encounter Summary ---
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 Michael Romero MD Stj Hem Onc Infusion Procedures [facility] AMB ONC GI COLORECTAL CANCER - FOLFOX-6 (14 DAY) [address] [place] [phone] Fax: Referral ID Status Reason Start Date Expiration Date Visits V isits Requested Authorized [id number] Authorized 05/08/2021 03/03/2022 20 20 Encounter Details Date Type Department Care Team Description 06/26/2021 Infusion Hematology Oncology at [facility] colon cancer with [facility] metastasis to other site [address] [place] [phone] Social History Tobacco Use Types [...] Romero MD [facility] [place] [address] [address] MEDICAL ONCOLOGY [place], [place] [address] 01/29/2022 Infusion Hematology and Oncology 02/12/2022 Office Visit Hematology and Oncology Michael Romero MD [facility] [address] [address] MEDICAL ONCOLOGY [place], [place] [address] 02/12/2022 Infusion Hematology and Oncology 02/26/2022 Office Visit Hematology and Oncology Michael Romero MD [facility] DR [place] [address] (Wo rk) 02/26/2022 Infusion Hematology [...] Medication palonosetron (Aloxi) (0.05 mg/mL) injection Given 03/2 08/2021 10:38 AM EDT 0.25 mg 0.25 mg 0.25 mg, Intravenous, ONCE, 1 dose, On Tue06/26/21 at 1045, Administer over 30 seconds. Administer prior to chemotherapy, Routine documented in this encounter Care Teams Loss Prevention Supervisor Relationship Specialty Start Date End Date None PCP - General 12/03/19 None documented as of this encounter
--- OUTSIDE RECORDS SUMMARY | 2022-01-29 01:33 | XMS_ITS | Encounter Summary ---
:1940 [place] [address] Care Team Providers Name Role Phone None Primary Care Provider Unavailable Encounter Details Date Type Department Care Team Description 10/01/2021 Ancillary Procedure Radiology Library at Jorge Romero [facility] [place] [address] ONCOLOGY [phone] [place], [place] [address] (Wo rk) Social History Tobacco Use Types Packs/Day Years Used Date Never Smoker Smokeless Tobacco: Never Used Sex Assigned at Date Recorded Not on file documented as of this encounter Plan of Treatment Upcoming Encounters Date Type Specialty Care Team Description 01/29/2022 Office Visit Hematology and Oncology Michael Romero MD [facility] [address] Mckenna Farris [address] MEDICAL ONCOLOGY [place], [place] [address] 01/29/2022 Infusion Hematology and Oncology 02/12/2022 Office Visit Hematology and Oncology Michael Romero MD [facility] [address] Mckenna Farris [address] MEDICAL ONCOLOGY [place], [place] [id number] 02/12/2022 Infusion Hematology and Oncology 02/26/2022 Office Visit Hematology and Oncology Michael Romero MD [facility] [address] [place], [place] 0[address] (Wo rk) 02/26/2022 Infusion Hematology [...] Organization Address City/State/ZIP Code Phon e Number [place], [place] documented in this encounter Visit Diagnoses Not on filedocumented in this encounter Care Teams Senior Tax Accountant Relationship Specialty Start Date End Date None PCP - General 12/03/19 None documented as of this encounter
--- OUTSIDE RECORDS SUMMARY | 2022-01-29 01:33 | XMS_ITS | Encounter Summary ---
:1940 Author Organization [facility] [place] [address] Care Team Providers Name Role Phone None Primary Care Provider Unavailable Encounter Details Date Type Department Care Team Description 11/06/2021 Office Visit Hematology/Oncology Michael Romero Stage IV adenocarcinoma at [facility] MD [place] of small bowel [address] [place] [phone] ONCOLOGY [phone] [place], [place] [address] Social History Tobacco Use Types [...] intra abdominal adhesions Path ([facility] review) - Omentum, mass, [...] pounds lower. Soc Hx: , lives in [place], [place] Tob - Never Etoh - None Worked as [employer]. Fam Hx: Father - Mother - breast [...] in the pelvis. She was seen at [facility] and underwent resection on 12/05/2019 - [...] Michael Romero MD [facility] [place] [address] Mckenna Farris, [address] [place] [place] [address] 01/29/2022 Infusion Hematology and Oncology 02/12/2022 Office Visit Hematology and Oncology Michael Romero MD [facility] [place] [address] Mckenna Farris [address] [place] [address] 02/12/2022 Infusion Hematology and Oncology 02/26/2022 Office Visit Hematology and Oncology Michael Romero MD [facility] ONCOLOGY [place], [place] 0[address] (Wo rk) 02/26/2022 Infusion Hematology and Oncology documented as of this encounter Visit Diagnoses Diagnosis Stage IV adenocarcinoma of small bowel Malignant neoplasm of small intestine, u nspecified site documented in this encounter Care Teams Brick Shader Relationship Specialty Start Date End Date None PCP - General 12/03/19 None documented as of this encounter
--- OUTSIDE RECORDS SUMMARY | 2022-01-29 01:33 | XMS_ITS | Encounter Summary ---
:1940 Author Organization [facility] [place] [address] Care Team Providers Name Role Phone None Primary Care Provider Unavailable Encounter Details Date Type Department Care Team Description 10/20/2021 [facility] [address] [phone] Social History Tobacco Use [...] Description 01/29/2022 Office Visit Hematology and Oncology Mihcael Romero MD [facility] [place] [address] Mckenna Farris APRN [address] [place] [address] DR MEDICAL ONCOLOGY [place], [place] [phone] 01/29/2022 Infusion Hematology and Oncology 02/12/2022 Office Visit Hematology and Oncology Michael Romero MD [facility] [place] [address] Mckenna Farris, BUILDING INSULATION SUPERVISOR [address] [place] [address] [place] [address] 02/12/2022 Infusion Hematology and Oncology 02/26/2022 Office Visit Hematology and Oncology Michael Romero MD [facility] DR ONCOLOGY [place], [place] 0[address] (Wo rk) 02/26/2022 Infusion Hematology and Oncology documented as of this encounter Visit Diagnoses Not on filedocumented in this encounter Care Teams Project Management Advisor Relationship Specialty Start Date End Date None PCP - General 12/03/19 None documented as of this encounter
--- OUTSIDE RECORDS SUMMARY | 2022-01-29 01:33 | XMS_ITS | Encounter Summary ---
:1940 Author Organization [facility] [place] [address] Care Team Providers Name Role Phone None Primary Care Provider Unavailable Reason for Visit Reason Comments Chemotherapy Cycle 6 folfox Treatment/Therapy Plan Authorization (Routine) - Authorized Specialty Diagnoses / Procedures Referred By Contact Refer red To Contact Diagnoses Primary colon cancer with metastasis to other site Michael Romero MD Stj Hem Onc Infusion Procedures [facility] AMB ONC GI COLORECTAL CANCER - FOLFOX-6 (14 DAY) [address] [place] [phone] Fax: Referral ID Status Reason Start Date Expiration Date Visits V isits Requested Authorized [id number] Authorized 05/08/2021 03/03/2022 20 20 Encounter Details Date Type Department Care Team Description 08/28/2021 Infusion Hematology Oncology at [facility] colon cancer with [facility] metastasis to other site [address] [place] [phone] Social History Tobacco Use Types [...] Romero MD [facility] [place] [address] Mckenna Farris MANAGER OF COMPLIANCE [address] [place] [address] [place] [address] 01/29/2022 Infusion Hematology and Oncology 02/12/2022 Office Visit Hematology and Oncology Michael Romero MD [facility] [place] [address] Mckenna Farris, MANAGER OF COMPLIANCE[address] [place] [address] 02/12/2022 Infusion Hematology and Oncology 02/26/2022 Office Visit Hematology and Oncology Michael Romero MD [facility] DR ONCOLOGY [place], [place] 0[address] (Wo rk) 02/26/2022 Infusion Hematology [...] Routine documented in this encounter Care Teams Local Company Flatbed Truck Driver Relationship Specialty Start Date End Date None PCP - General 12/03/19 None documented as of this encounter
--- OUTSIDE RECORDS SUMMARY | 2022-01-29 01:33 | XMS_ITS | Encounter Summary ---
:1940 Author Organization [facility] [place] [address] Care Team Providers Name Role Phone None Primary Care Provider Unavailable Encounter Details Date Type Department Care Team Description 10/23/2021 Office Visit Hematology/Oncology Michael Romero Stage IV adenocarcinoma at [facility] MD [place] of small bowel [address] [place] [phone] ONCOLOGY [phone] [place], [place] [address] Social History Tobacco Use Types [...] of significant intra abdominal adhesions Path ([facility] review) - Omentum, mass, excision: - Metastatic [...] is stable. Soc Hx: , lives in [place], [place] Tob - Never Etoh - None Worked as [employer]. Fam Hx: Father - Mother - breast [...] in the pelvis. She was seen at [facility] [place] and underwent resection on 12/05/2019 - [...] Romero MD [facility] [place] [address] MEDICAL ONCOLOGY [place], [place] [address] 01/29/2022 Infusion Hematology and Oncology 02/12/2022 Office Visit Hematology and Oncology Michael Romero MD [facility] [place] [address] [address] MEDICAL ONCOLOGY [place], [place] [address] 02/12/2022 Infusion Hematology and Oncology 02/26/2022 Office Visit Hematology and Oncology Michael Romero MD [facility] ONCOLOGY [place], [place] 0[address] (Wo rk) 02/26/2022 Infusion Hematology and Oncology documented as of this encounter Visit Diagnoses Diagnosis Stage IV adenocarcinoma of small bowel Malignant neoplasm of small intestine, u nspecified site documented in this encounter Care Teams Project Geologist Relationship Specialty Start Date End Date None PCP - General 12/03/19 None documented as of this encounter
--- OUTSIDE RECORDS SUMMARY | 2022-01-29 01:33 | XMS_ITS | Encounter Summary ---
:1940 Author Organization [facility] [place] [address] Care Team Providers Name Role Phone None Primary Care Provider Unavailable Reason for Visit Reason Comments IV Access Port flush Encounter Details Date Type Department Care Team Description 08/21/2021 Infusion Hematology Oncology at [facility] colon cancer with [facility] metastasis to other site [address] [place] [phone] Social History Tobacco Use Types [...] Romero MD [facility] [place] [address] Mckenna Farris APRN [address] [place] [address] DR [place] [address] 01/29/2022 Infusion Hematology and Oncology 02/12/2022 Office Visit Hematology and Oncology Michael Romero MD [facility] [place] [place] [address] [address] [place] [address] 02/12/2022 Infusion Hematology and Oncology 02/26/2022 Office Visit Hematology and Oncology Michael Romero MD [facility] DR [place], [place] 0[address] (Wo rk) 02/26/2022 Infusion Hematology and Oncology documented as of this encounter Visit Diagnoses Diagnosis Primary colon cancer with metastasis to other site documented in this encounter Care Teams Satellite Dish Installer Relationship Specialty Start Date End Date None PCP - General 12/03/19 None documented as of this encounter
--- OUTSIDE RECORDS SUMMARY | 2022-01-29 01:33 | XMS_ITS | Encounter Summary ---
:1940 Author Organization [facility] [place] [address] Care Team Providers Name Role Phone None Primary Care Provider Unavailable Reason for Visit Reason Comments Chemotherapy C4D1 Folfox Treatment/Therapy Plan Authorization (Routine) - Authorized Specialty Diagnoses / Procedures Referred By Contact Refer red To Contact Diagnoses Primary colon cancer with metastasis to other site Michael Romero MD Stj Hem Onc Infusion Procedures [facility] AMB ONC GI COLORECTAL CANCER - FOLFOX-6 (14 DAY) [address] [place] [phone] Fax: Referral ID Status Reason Start Date Expiration Date Visits V isits Requested Authorized [id number] Authorized 05/08/2021 03/03/2022 20 20 Encounter Details Date Type Department Care Team Description 07/24/2021 Infusion Hematology Oncology at [facility] colon cancer with [facility] metastasis to other site [address] [place] [phone] Social History Tobacco Use Types [...] 5FU infusion via CADD pump provided by [employer] SUBJECTIVE Joy offers no complaints, she met [...] infusion chemotherapy via CADD pump provided by [employer]. Fluorouracil 3438 mg over 46 hours, IV via CADD pump. Amount infused verified by double RN check after 15 minutes and appropriate amount had infused. REACTIONS (DESCRIPTION, TIME, INTERVENTION AND EFFECTIVENESS) none ASSESSMENT Joy was awake, alert and tolerated treatment well. PLAN Home disconnect on Wednesday 07/26 at [facility], home disconnect kit provided. Return to clinic per plan. documented in this encounter Plan of Treatment Upcoming Encounters Date Type Specialty Care Team Description 01/29/2022 Office Visit Hematology and Oncology Michael Romero MD [facility] [place] [address] MEDICAL ONCOLOGY [place], [place] [address] 01/29/2022 Infusion Hematology and Oncology 02/12/2022 Office Visit Hematology and Oncology Michael Romero MD [facility] [place] [address] MEDICAL ONCOLOGY [place], [place] [address] 02/12/2022 Infusion Hematology and Oncology 02/26/2022 Office Visit Hematology and Oncology Michael Romero MD [facility] ONCOLOGY [place], [place] 0375 (Wo rk) 02/26/2022 Infusion Hematology [...] Routine documented in this encounter Care Teams Product Design Specialist Relationship Specialty Start Date End Date None PCP - General 12/03/19 None documented as of this encounter
--- OUTSIDE RECORDS SUMMARY | 2022-01-29 01:33 | XMS_ITS | Encounter Summary ---
:1940 Author Organization [facility] [place] [address] Care Team Providers Name Role Phone None Primary Care Provider Unavailable Reason for Visit Reason Comments Chemotherapy Treatment/Therapy Plan Authorization (Routine) - Authorized Specialty Diagnoses / Procedures Referred By Contact Refer red To Contact Diagnoses Primary colon cancer with metastasis to other site Michael Romero MD Stj Hem Onc [facility] COLOR[facility]AL CANCER - FOLFOX-6 (14 DAY) [address] [place] [phone] Fax: Referral ID Status Reason Start Date Expiration Date Visits V isits Requested Authorized [id number] Authorized 05/08/2021 03/03/2022 20 20 Encounter Details Date Type Department Care Team Description 10/09/2021 Infusion Hematology Oncology at [facility] colon cancer with [facility] metastasis to other site [address] [place] [phone] Social History Tobacco Use Types [...] infusion chemotherapy via CADD pump provided by [facility]. Fluorouracil 2292 mg over 46 hours, IV [...] Romero MD [facility] [place] [address] MEDICAL ONCOLOGY [place], [place] [address] 01/29/2022 Infusion Hematology and Oncology 02/12/2022 Office Visit Hematology and Oncology Michael Romero MD [facility] [place] [address] [address] MEDICAL ONCOLOGY [place], [place] [address] 02/12/2022 Infusion Hematology and Oncology 02/26/2022 Office Visit Hematology and Oncology Michael Romero MD [facility] ONCOLOGY [place], [place] [address] (Wo rk) 02/26/2022 Infusion Hematology [...] Routine documented in this encounter Care Teams Warp Tying Machine Tender Relationship Specialty Start Date End Date None PCP - General 12/03/19 None documented as of this encounter
--- OUTSIDE RECORDS SUMMARY | 2022-01-29 01:33 | XMS_ITS | Encounter Summary ---
:1940 Author Organization [facility] [place] [address] Care Team Providers Name Role Phone None Primary Care Provider Unavailable Reason for Visit Reason Comments Chemotherapy FOLFOX (Modified - no bolus) Treatment/Therapy Plan Authorization (Routine) - Authorized Specialty Diagnoses / Procedures Referred By Contact Refer red To Contact Diagnoses Primary colon cancer with metastasis to other site Michael Romero MD Stj Hem Onc Infusion Procedures [facility] AMB ONC GI COLORECTAL CANCER - FOLFOX-6 (14 DAY) [address] [place] [phone] Fax: Referral ID Status Reason Start Date Expiration Date Visits V isits Requested Authorized [id number] Authorized 05/08/2021 03/03/2022 20 20 Encounter Details Date Type Department Care Team Description 09/11/2021 Infusion Hematology Oncology at [facility] colon cancer with [facility] metastasis to other site [address] [place] [phone] Social History Tobacco Use Types [...] OBJECTIVE LAB DATA: Labs drawn today at [facility]. Reviewed and found adequate for treatment. Pre administration: Chemotherapy orders independently verified for drug name, route, and dosage per patient's height, weight and BSA by Tay Valelcillo RN and pharmacist on-site. HOME INFUSION - [...] Oncology Michael Romero MD [facility] [place] [address] MEDICAL ONCOLOGY [place], [place] [address] 01/29/2022 Infusion Hematology and Oncology 02/12/2022 Office Visit Hematology and Oncology Michael Romero MD [facility] [place] [address] [address] MEDICAL ONCOLOGY [place], [place] [address] 02/12/2022 Infusion Hematology and Oncology 02/26/2022 Office Visit Hematology and Oncology Michael Romero MD [facility] ONCOLOGY [place] [phone] ( rk) 02/26/2022 Infusion Hematology and Oncology [...] Routine documented in this encounter Care Teams Steelscope Operator Relationship Specialty Start Date End Date None PCP - General 12/03/19 None documented as of this encounter
--- OUTSIDE RECORDS SUMMARY | 2022-01-29 01:33 | XMS_ITS | Encounter Summary ---
:1940 Author Organization [facility] [place] [address] Care Team Providers Name Role Phone None Primary Care Provider Unavailable Encounter Details Date Type Department Care Team Description 09/11/2021 Office Visit Hematology/Oncology Viktoriya Álvarez colon cancer at [facility] B, TYPE CASTER with metastasis to [address] [place] [address] [place] [address] HEMATOLOGY/ONCOLOGY [phone] DEPT. [place], [place] 0375 (Wo rk) Social History Tobacco [...] in this encounter Progress Notes Viktoriya Álvarez, NICOLE - 09/11/2021 10:30 AM EDT Subjective Patient [...] because of significant intra abdominal adhesions Path [place] [place] - Omentum, mass, excision: - Metastatic [...] the pelvis. ?? [place] [facility] [place] resection on 12/05/2019 [...] in the absence of cold, laryngealdysesthesia, fatigue, angina/[place], hypersensitivity reactions and others.?She??was given [...] omental biopsy - BRAF V600E mutation. Viktoriya Calabrese. Henri LYNCH APRN, AGACNP-BC, AOCNP, ACHPN Division of Hematology Oncology-Gastrointestinal Fruit StufferAudio Visual Managerinspector grain mill products [facility] documented in this encounter Plan of Treatment Upcoming Encounters Date Type Specialty Care Team Description 01/29/2022 Office Visit Hematology and Oncology Michael Romero MD [facility] [place] [address] Mckenna Farris, [address] MEDICAL ONCOLOGY [place], [place] [address] 01/29/2022 Infusion Hematology and Oncology 02/12/2022 Office Visit Hematology and Oncology Michael Romero MD [facility] [place] [address] Mckenna Farris, [address] MEDICAL ONCOLOGY [place], [place] [address] 02/12/2022 Infusion Hematology and Oncology 02/26/2022 Office Visit Hematology and Oncology Michael Roemro MD [facility] ONCOLOGY [place], [place] 0375 (Wo rk) 02/26/2022 Infusion Hematology and Oncology documented as of this encounter Visit Diagnoses Diagnosis Primary colon cancer with metastasis to other site documented in this encounter Care Teams Chief Engineer Relationship Specialty Start Date End Date None PCP - General 12/03/19 None documented as of this encounter
--- OUTSIDE RECORDS SUMMARY | 2022-01-29 01:33 | XMS_ITS | Encounter Summary ---
:1940 Author Organization [facility] [place] [address] Care Team Providers Name Role Phone None Primary Care Provider Unavailable Reason for Visit Reason Comments Chemotherapy Cycle 8 Day 1 mFOLFOX Treatment/Therapy Plan Authorization (Routine) - Authorized Specialty Diagnoses / Procedures Referred By Contact Refer red To Contact Diagnoses Primary colon cancer with metastasis to other site Michael Romero MD Stj Hem Onc In[facility] COL[facility]AL CANC[facility] - FOLFOX-6 (14 DAY) [address] [place] [phone] Fax: Referral ID Status Reason Start Date Expiration Date Visits V isits Requested Authorized [id number] Authorized 05/08/2021 03/03/2022 20 20 Encounter Details Date Type Department Care Team Description 09/25/2021 Infusion Hematology Oncology at [facility] colon cancer with [facility] metastasis to other site [address] [place] [phone] Social History Tobacco Use Types [...] Oncology Michael Romero MD [place] [address] ONCOLOGY [place], [place] [phone] 01/29/2022 Infusion Hematology and Oncology 02/12/2022 Office Visit Hematology and Oncology Michael Romero MD [place] [address] [address]ckenna Farris [address] MEDICAL ONCOLOGY [place], [place] [phone] 02/12/2022 Infusion Hematology and Oncology 02/26/2022 Office Visit Hematology and Oncology Michael Romero MD [facility] ONCOLOGY [place], [place] 0375 (Wo rk) 02/26/2022 Infusion Hematology and [...] Pharmacist rounded dose per procedure (Re-ordered by MD/GLOBAL MARKETING INTERN). Compatible with dextrose-containing solution only. Warning Vesicant/Irritant Medication palonosetron (Aloxi) (0.05 mg/mL) injection Given 09/03 10:48 AM EDT 0.25 mg 0.25 mg 0.25 mg, Intravenous, ONCE, 1 dose, On Tue09/25/21 at 1100, Administer over 30 seconds. Administer prior to chemotherapy, Routine documented in this encounter Care Teams Curtain Inspector Relationship Specialty Start Date End Date None PCP - General 12/03/19 None documented as of this encounter
--- OUTSIDE RECORDS SUMMARY | 2022-01-29 01:33 | XMS_ITS | Encounter Summary ---
:1940 Author Organization [place] [address] Care Team Providers Name Role Phone None Primary Care Provider Unavailable Reason for Visit Reason Onset Date Comments Follow-up 06/29/[address] of flu [place] when chemo complete Encounter Details Date Type Department Care Team Description 06/29/2021 Telephone Hematology/Oncology at [facility] RN Follow-up (Incorrect way [facility] when [address] [place] [address] Drive chemo complete) [place] [phone] Social History Tobacco Use Types [...] [facility] [place] [address] [address] MEDICAL ONCOLOGY [place], [place] [phone] 01/29/2022 Infusion Hematology and Oncology 02/12/2022 Office Visit Hematology and Oncology Michael Romero MD [facility] [place] [address] [address] MEDICAL ONCOLOGY [place], [place] [phone] 02/12/2022 Infusion Hematology and Oncology 02/26/2022 Office Visit Hematology and Oncology Michael Romero MD [facility] ONCOLOGY [place], [place] 0375 (Wo rk) 02/26/2022 Infusion Hematology and Oncology documented as of this encounter Visit Diagnoses Not on filedocumented in this encounter Care Teams Compliance Project Manager Relationship Specialty Start Date End Date None PCP - General 12/03/19 None documented as of this encounter
--- OUTSIDE RECORDS SUMMARY | 2022-01-29 01:33 | XMS_ITS | Encounter Summary ---
:1940 Author Organization [facility] [place] [address] Care Team Providers Name Role Phone None Primary Care Provider Unavailable Reason for Visit Reason Comments Chemotherapy 5fu pump disconnect Treatment/Therapy Plan Authorization (Routine) - Authorized Specialty Diagnoses / Procedures Referred By Contact Refer red To Contact Diagnoses Primary colon cancer with metastasis to other site Michael Romero MD Stj Hem Onc [facility] COL[facility] - FOLFOX-6 (14 DAY) [address] [place] [phone] Fax: Referral ID Status Reason Start Date Expiration Date Visits V isits Requested Authorized [id number] Authorized 05/08/2021 03/03/2022 20 20 Encounter Details Date Type Department Care Team Description 05/28/2021 Infusion Hematology Oncology at [facility] colon cancer with [facility] metastasis to other site [address] [place] [phone] Social History Tobacco Use Types [...] TIME TREATMENT STARTED: 1130 TIME TREATMENT ENDED: 0 DIAGNOSIS: colon cancer PROTOCOL:na CYCLE #: 1 [...] Romero MD [facility] [place] [address] [address] ONCOLOGY [place], [place] [address] 01/29/2022 Infusion Hematology and Oncology 02/12/2022 Office Visit Hematology and Oncology Michael Romero MD [facility] [place] [address] MEDICAL ONCOLOGY [place], [place] [address] 02/12/2022 Infusion Hematology and Oncology 02/26/2022 Office Visit Hematology and Oncology Michael Romero MD [facility] [place]COLOG[place], [place] 0375 (Wo rk) 02/26/2022 Infusion Hematology [...] (IV) Procedure: Accessing Implanted Vascular Access Devices (654) procedure and/or Intravenous (IV) Job Aid: Adult Flushing & Catheter Care (3984) job aid for additional information regarding guidelines [...] Job Aid: Adult Flushing & Catheter Care (5991) job aid for additional information regarding guidelines and administration., Routine documented in this encounter Care Teams Credit Collections Specialist Relationship Specialty Start Date End Date None PCP - General 12/03/19 None documented as of this encounter
--- OUTSIDE RECORDS SUMMARY | 2022-01-29 01:33 | XMS_ITS | Encounter Summary ---
:1940 Author Organization [facility] [place] [address] Care Team Providers Name Role Phone None Primary Care Provider Unavailable Encounter Details Date Type Department Care Team Description 06/12/2021 Orders Only Hematology/Oncology at [facility] Mckenna[address] MEDICAL ONCOLOGY [facility] [phone] Social History Tobacco Use Types Packs/Day Years Used Date Never Smoker Smokeless Tobacco: Never Used Sex Assigned at Date Recorded Not on file documented as of this encounter Plan of Treatment Upcoming Encounters Date Type Specialty Care Team Description 01/29/2022 Office Visit Hematology and Oncology Michael Romero MD [facility] [place] [address] Mckenna Farris [address] ONCOLOGY [place], [place] [address] 01/29/2022 Infusion Hematology and Oncology 02/12/2022 Office Visit Hematology and Oncology Michael Romero MD [facility] [place] [address] [address]arris [address] MEDICAL ONCOLOGY [place], [place] [address] 02/12/2022 Infusion Hematology and Oncology 02/26/2022 Office Visit Hematology and Oncology Michael Romero MD [facility] ONCOLOGY [place], [place] 0375 (Wo rk) 02/26/2022 Infusion Hematology and Oncology documented as of this encounter Visit Diagnoses Not on filedocumented in this encounter Care Teams Geriatric Social Work Professor Relationship Specialty Start Date End Date None PCP - General 12/03/19 None documented as of this encounter
--- OUTSIDE RECORDS SUMMARY | 2022-01-29 01:33 | XMS_ITS | Encounter Summary ---
:1940 Author Organization [facility] [place] [address] Care Team Providers Name Role Phone None Primary Care Provider Unavailable Encounter Details Date Type Department Care Team Description 08/28/2021 Orders Only Hematology and Oncology at Michael Silva MD [facility] [place] [address] [place] [address] [phone] (Wo rk) Social History Tobacco Use Types Packs/Day Years Used Date Never Smoker Smokeless Tobacco: Never Used Sex Assigned at Date Recorded Not on file documented as of this encounter Plan of Treatment Upcoming Encounters Date Type Specialty Care Team Description 01/29/2022 Office Visit Hematology and Oncology Michael Romero MD [facility] [place] [place] [address] [address]ckenna Farris [address] MEDICAL ONCOLOGY [place], [place] [phone] 01/29/2022 Infusion Hematology and Oncology 02/12/2022 Office Visit Hematology and Oncology Michael Romero MD [facility] [place] [address] Mckenna Farris [address] MEDICAL ONCOLOGY [place], [place] [phone] 02/12/2022 Infusion Hematology and Oncology 02/26/2022 Office Visit Hematology and Oncology Michael Romero MD [facility] ONCOLOGY [place], [place] 0375 (Wo rk) 02/26/2022 Infusion Hematology and Oncology documented as of this encounter Visit Diagnoses Not on filedocumented in this encounter Care Teams Private Investigator Relationship Specialty Start Date End Date None PCP - General 12/03/19 None documented as of this encounter
--- OUTSIDE RECORDS SUMMARY | 2022-01-29 01:33 | XMS_ITS | Encounter Summary ---
:1940 Author Organization [facility] [place] [address] Care Team Providers Name Role Phone None Primary Care Provider Unavailable Reason for Visit Reason Comments Chemotherapy C1D1 Folfox Treatment/Therapy Plan Authorization (Routine) - Authorized Specialty Diagnoses / Procedures Referred By Contact Refer red To Contact Diagnoses Primary colon cancer with metastasis to other site Michael Romero MD Stj Hem Onc In[facility] COLORECTAL CANCER - FOLFOX-6 (14 DAY) [address] [place] [phone] Fax: Referral ID Status Reason Start Date Expiration Date Visits V isits Requested Authorized [id number] Authorized 05/08/2021 03/03/2022 20 20 Encounter Details Date Type Department Care Team Description 05/26/2021 Infusion Hematology Oncology at [facility] colon cancer with [facility] metastasis to other site [address] [place] [phone] Social History Tobacco Use Types [...] complaints today. OBJECTIVE LAB DATA: 05/26/21 at [facility], labs reviewed and found adequate for treatment. [...] clinic hours (8am-5pm Tuesday-Tuesday): pt. can call [phone] with questions or concerns. After clinic hours (5pm-8am Tuesday-Tuesday and weekends) pt can call [phone] and ask for the supervisor patching/oncologist retail wireless sales consultant. She was also provided with the patient [...] Oncology Michael Romero MD [facility] [place] [address] MEDICAL ONCOLOGY [place], [place] [address] 01/29/2022 Infusion Hematology and Oncology 02/12/2022 Office Visit Hematology and Oncology Michael Romero MD [facility] [place] [address] MEDICAL ONCOLOGY [place], [place] [address] 02/12/2022 Infusion Hematology and Oncology 02/26/2022 Office Visit Hematology and Oncology Michael Romero MD [facility] ONCOLOGY [place], [place] 0375 (Wo rk) 02/26/2022 Infusion Hematology [...] Routine documented in this encounter Care Teams Drosser Relationship Specialty Start Date End Date None PCP - General 12/03/19 None documented as of this encounter
--- OUTSIDE RECORDS SUMMARY | 2022-01-29 01:33 | XMS_ITS | Encounter Summary ---
:1940 Author Organization [facility] [place] [address] Care Team Providers Name Role Phone None Primary Care Provider Unavailable Encounter Details Date Type Department Care Team Description 04/01/2021 External Results Medical Records Provider, Scanning [facility] [place] [address] Social History Tobacco Use Types Packs/Day Years Used Date Never Smoker Smokeless Tobacco: Never Used Sex Assigned at Date Recorded Not on file documented as of this encounter Plan of Treatment Upcoming Encounters Date Type Specialty Care Team Description 01/29/2022 Office Visit Hematology and Oncology Michael Romero MD [facility] [place] [address] MEDICAL ONCOLOGY [place], [place] [phone] 01/29/2022 Infusion Hematology and Oncology 02/12/2022 Office Visit Hematology and Oncology Michael Romero MD [facility] [place] [address] MEDICAL ONCOLOGY [place], [place] [phone] 02/12/2022 Infusion Hematology and Oncology 02/26/2022 Office Visit Hematology and Oncology Michael Romero MD [facility] ONCOLOGY [place], [place] 0375 (Wo rk) 02/26/2022 Infusion [...] that is no t available. Historical Provider MEDIA MGR SCAN EXT ORDR/RSLT documented in this encounter Visit Diagnoses Not on filedocumented in this encounter Care Teams Director Clinical Information Services Relationship Specialty Start Date End Date None PCP - General 12/03/19 None documented as of this encounter
--- OUTSIDE RECORDS SUMMARY | 2022-01-29 01:33 | XMS_ITS | Encounter Summary ---
:1940 Author Organization [facility] [place] [address] Care Team Providers Name Role Phone None Primary Care Provider Unavailable Encounter Details Date Type Department Care Team Description 04/01/2021 Hospital [facility] [place] [phone] Social History Tobacco Use Types Packs/Day [...] Romero MD [facility] [place] [address] MEDICAL ONCOLOGY [place], [place] [phone] 01/29/2022 Infusion Hematology and Oncology 02/12/2022 Office Visit Hematology and Oncology Michael Romero MD [facility] [place] [address] MEDICAL ONCOLOGY [place], [place] [address] 02/12/2022 Infusion Hematology and Oncology 02/26/2022 Office Visit Hematology and Oncology Michael Romero MD [facility] ONCOLOGY [place], [place] 0375 (Wo rk) 02/26/2022 Infusion Hematology [...] Organization Address City/State/Z[place] [address] Surgical Pathology Report (04/01/2021 3:27 PM EST) Component Value Ref Test Analysis Performed At [facility] gist Range Method Time Signature Surgical [id number] ? Location: [facility] Report The signing pathologist has (i) examined the relevant preparation(s) for the MEMORIAL specimen(s) and (ii) rendered or confirmed the diagnosis(es) . HOSPITAL LABORATORY . ?Surgic al Pathology DIAGNOSIS CORRECTED REPORT (See Discussion) _ CONSULTATION CASE Outside slide(s) labeled [id number], collection date 021 Omentum, mass, excision: - Metastatic adenocarcinoma, consistent with patient's known colorectal primary. ( ? see note) Note: Outside immunostaining for CDX2 is positive, sup porting the diagnosis. Electronically signed by: ?Finesse Barrett MD Verified: ??05/11/2021 9:28 ?? Pathologist Performed at: ??-[facility] Dept. of Pathology, [place], [place] DISCUSSION Correction Note: ??Changed CN accession number ??There are no other changes to the text of this report. _ ADDITIONAL STUDIES Whole slide scan: A1, CDX2 SPECIMEN(S) SUBMITTED CONSULTATION CASE A - 5 slide(s) labeled [id number], collection date 1. [id number] Report to: [facility] Surgical Pathology Department [facility], [facility], 2nd Floor [address], [place] ??[address] CLINICAL INFORMATION _. SPECIMEN PROCESSING _ pathology slide(s) are rev iewed. ??Refer to Diagnosis and Specimen Submitted for specific case information. For the full text of the _ r eport(s) please refer to Non-DH Documentation Pathology in the electronic health record (eDH). Specimen (Source) Anatomical Collection Method Collection Time Re ceived Time Location / / Volume Laterality 04/01/2021 3:27 PM EST Michael Romero MD PATHOLOGY/CYTOLOGY ORDERABLE S Performing Organization Address City/State/[place] [address] documented in this encounter Visit Diagnoses Not on filedocumented in this encounter Care Teams Real Estate Director Relationship Specialty Start Date End Date None PCP - General 12/03/19 None documented as of this encounter
--- OUTSIDE RECORDS SUMMARY | 2022-01-29 01:33 | XMS_ITS | Encounter Summary ---
:1940 Author Organization [facility] [place] [address] Care Team Providers Name Role Phone None Primary Care Provider Unavailable Encounter Details Date Type Department Care Team Description 06/12/2021 Office Visit Hematology/Oncology Mckenna Farris, Prim marycruz colon cancer at [facility] WELLNESS PROGRAM ADMINISTRATOR with metastasis to [facility] [address] [place] [address] other site [place], [place]OG [place] [address] [place], [place] [phone] (Wo rk) Social History Tobacco Use Types [...] in this encounter Progress Notes Mckenna Farris, WELLNESS PROGRAM ADMINISTRATOR - 06/12/2021 9:30 AM EST Subjective Patient [...] the pelvis. ?? [facility] [...] laryngeal dysesthesia, fatigue, angina/[place], hypersensitivity reactions and others.?She??was given informational handouts [...] shows likely additional metastatic abdominal nodules. Interval HPI(06/12/21)- Joy returns to clinic today to continue [...] questions/concerns or new symptoms. Mckenna Farris MSN, WELLNESS PROGRAM ADMINISTRATOR, AOCNP Medical Oncology documented in this encounter Plan of Treatment Upcoming Encounters Date Type Specialty Care Team Description 01/29/2022 Office Visit Hematology and Oncology Michael Romero MD [facility] [place] [address] Mckenna Farris APRN [address] [place] [address] DR MEDICAL ONCOLOGY [place], [place] [address] 01/29/2022 Infusion Hematology and Oncology 02/12/2022 Office Visit Hematology and Oncology Michael Romero MD [facility] [place] [address] Mckenna Farris APRN [address] [place] [address] DR MEDICAL ONCOLOGY [place], [place] [address] 02/12/2022 Infusion Hematology and Oncology 02/26/2022 Office Visit Hematology and Oncology Michael Romero MD [facility] DR [place], [place] 0375 (Wo rk) 02/26/2022 Infusion Hematology [...] site documented in this encounter Care Teams Refresh Technician Relationship Specialty Start Date End Date None PCP - General 12/03/19 None documented as of this encounter
--- OUTSIDE RECORDS SUMMARY | 2022-01-29 01:33 | XMS_ITS | Encounter Summary ---
:1940 Author Organization [facility] [place] [address] Care Team Providers Name Role Phone None Primary Care Provider Unavailable Encounter Details Date Type Department Care Team Description 07/24/2021 Office Visit Hematology/Oncology Aaron Romero MD [facility] [place] [address] [facility]en[facility] [address] [place] [address] [place] [address] [place] [phone] Social History Tobacco Use Types Packs/Day [...] because of significant intra abdominal adhesions Path ([facility] review) - Omentum, mass, excision: - Metastatic [...] and down. Soc Hx: , lives in [place], [place] Tob - Never Etoh - None Worked as [employer]. Fam Hx: Father - Mother - breast [...] the pelvis. She was seen at [facility] and underwent resection on 12/05/2019 - path [...] laryngeal dysesthesia, fatigue, angina/[place], hypersensitivity reactions and others.?She was given informationalhandouts [...] Romero MD [facility] [place] [address] MEDICAL ONCOLOGY [place], [place] [address] 01/29/2022 Infusion Hematology and Oncology 02/12/2022 Office Visit Hematology and Oncology Michael Romero MD [facility] [place] [address] [address] [place] [address] 02/12/2022 Infusion Hematology and Oncology 02/26/2022 Office Visit Hematology and Oncology Michael Romero MD [facility] [address] [place], [place] 0375 (Wo rk) 02/26/2022 Infusion Hematology and Oncology documented as of this encounter 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
--- OUTSIDE RECORDS SUMMARY | 2022-01-29 01:33 | XMS_ITS | Encounter Summary ---
:1940 [place] [address] Care Team Providers Name Role Phone None Primary Care Provider Unavailable Encounter Details Date Type Department Care Team Description 12/24/2020 Ancillary Procedure Radiology Library at Jorge oRmero [facility] [place] [address] ONCOLOGY [phone] [place], [place] 0[address] (Wo rk) Social History Tobacco Use Types Packs/Day Years Used Date Never Smoker Smokeless Tobacco: Never Used Sex Assigned at Date Recorded Not on file documented as of this encounter Plan of Treatment Upcoming Encounters Date Type Specialty Care Team Description 01/29/2022 Office Visit Hematology and Oncology Michael Romero MD [facility] [place] [address] M[address]arris [address] MEDICAL ONCOLOGY [place], [place] [address] 01/29/2022 Infusion Hematology and Oncology 02/12/2022 Office Visit Hematology and Oncology Michael Romero MD [facility] [place] [address] Mckenna Farris [address] MEDICAL ONCOLOGY [place], [place] [phone] 02/12/2022 Infusion Hematology and Oncology 02/26/2022 Office Visit Hematology and Oncology Michael Romero MD [facility] ER [address] [place], [place] 0375 (Wo rk) 02/26/2022 Infusion Hematology [...] Time Received Time / Laterality Volume Narrative [facility] - 04/16/2021 10:53 AM EST This exam is auto-finalizing. It's purpo se is for storage only. Michael Romero MD IMG FILM LIBRARY ORDERABLES Performing Organization Address City/State/ZIP Code Phon e Number [place], [place] documented in this encounter Visit Diagnoses Not on filedocumented in this encounter Care Teams Modern And Contemporary Art Curator Relationship Specialty Start Date End Date None PCP - General 12/03/19 None documented as of this encounter
--- OUTSIDE RECORDS SUMMARY | 2022-01-29 01:34 | XMS_ITS | Encounter Summary ---
:1940 Author Organization [facility] [place] [address] Care Team Providers Name Role Phone Unavailable Primary Care Provider Unavailable Encounter Details Date Type Department Care Team Description 11/26/2019 Telephone FREIGHT FLOW SALES LEADER at [facility] Sofia Rodriguez [address] [place] [address] Social History Tobacco Use Types Packs/Day Years Used Date Never Assessed Sex Assigned at Date Recorded Not on file documented as of this encounter Plan of Treatment Upcoming Encounters Date Type Specialty Care Team Description 01/29/2022 Office Visit Hematology and Oncology Michael Romero MD [facility] [place] [address] [address] MEDICAL ONCOLOGY [place], [place] [phone] 01/29/2022 Infusion Hematology and Oncology 02/12/2022 Office Visit Hematology and Oncology Michael Romero MD [facility] [place] [address] [address] MEDICAL ONCOLOGY [place], [place] [phone] 02/12/2022 Infusion Hematology and Oncology 02/26/2022 Office Visit Hematology and Oncology Michael Romero MD [facility] ONCOLOGY [place], [place] [address] (Wo rk) 02/26/2022 Infusion Hematology and Oncology documented as of this encounter Visit Diagnoses Not on filedocumented in this encounter
--- OUTSIDE RECORDS SUMMARY | 2022-01-29 01:34 | XMS_ITS | Encounter Summary ---
:1940 [place] [address] Care Team Providers Name Role Phone Unavailable Primary Care Provider Unavailable Encounter Details Date Type Department Care Team Description 10/29/2019 Ancillary Procedure Radiology Library at Jorge Romero [facility] [place] [address] ONCOLOGY [phone] [place], [place] [address] (Wo rk) Social History Tobacco Use Types Packs/Day Years Used Date Never Assessed Sex Assigned at Date Recorded Not on file documented as of this encounter Plan of Treatment Upcoming Encounters Date Type Specialty Care Team Description 01/29/2022 Office Visit Hematology and Oncology Michael Romero MD [facility] [place] [place] [address] Mckenna Farris [address] MEDICAL ONCOLOGY [place], [place] [phone] 01/29/2022 Infusion Hematology and Oncology 02/12/2022 Office Visit Hematology and Oncology Michael Romero MD [facility] [place] [address] [address] MEDICAL ONCOLOGY [place], [place] [phone] 02/12/2022 Infusion Hematology and Oncology 02/26/2022 Office Visit Hematology and Oncology Michael Romero MD [facility] ER ONCOLOGY [place], [place] 0375 (Wo rk) 02/26/2022 Infusion Hematology [...] / Laterality Volume Narrative RAD - 04/16/2021 11:09 AM EST This exam is auto-finalizing. It's purpo se is for storage only. Michael Romero MD IMG FILM LIBRARY ORDERABLES Performing Organization Address City/State/ZIP Code Phon e Number [facility] [place] documented in this encounter Visit Diagnoses Not on filedocumented in this encounter
--- OUTSIDE RECORDS SUMMARY | 2022-01-29 01:34 | XMS_ITS | Encounter Summary ---
:1940 Author Organization [facility] [place] [address] Care Team Providers Name Role Phone None Primary Care Provider Unavailable Reason for Visit Reason Comments Pre-op Exam Encounter Details Date Type Department Care Team Description 12/03/2019 Office Visit WEIGHER PRODUCTION at [facility] aDnnie Epperson DO [facility] [address] OBSTETRICS & [place] [address] [place] [address] [phone] (Wo rk) Social History Tobacco Use Types [...] very pleasant 79 yo para 4 from [place] who is a new patient in consult today as requested by Dr Live Sood of the General Surgery group at [facility]. She presents alone today, and her Romero is in the car outside. Dr Sood is requesting gynecology presence at plannedlaparotomy for colon cancer resection for possible JOSE ROBERTO-BSO if needed. This has been scheduled for 12/05/2019. The patient has undergone prior visit with OSH and decided to pursue second opinion with general surgery at [facility]. She reports a history of colonoscopy in [...] Disp: , Rfl: Past OB history: G1: 1962, 6 pound, male G2: 1964, 6 pound, female, G3: 1966, 6 pounds, male, G4: 1969, 6 pounds, male, Reports history of bilateral tubal ligation., Possible complication of hydrosalpinx on right per patient report. MOVIE EXTRA history: Menarche age 16, 4 to 6-day cycles that were regular. She reported moderate flow. She reports mammography in 1989 that were normal. She reports having always had a normal Pap history and no STDs. She reports last colonoscopy 2 to 3 years ago. Social history: She does not smoke, drink or use drugs. 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 She is to Celia, age 79. He [...] laparotomy 12/05/2019. 1.reviewed with patient requests for MOVIE EXTRA presence at time of her surgery to [...] We spent approximately 30 minutes in direct [id number] discussion, collection of historical data, review of [...] Michael Romero MD [facility] [address] [address] ONCOLOGY [place], [place] [phone] 01/29/2022 Infusion Hematology and Oncology 02/12/2022 Office Visit Hematology and Oncology Michael Romero MD [facility] [place] [address] [address] ONCOLOGY [place], [place] [phone] 02/12/2022 Infusion Hematology and Oncology 02/26/2022 Office Visit Hematology and Oncology Michael Romero MD [facility] ONCOLOGY [place], [place] [address] (Wo rk) 02/26/2022 Infusion Hematology [...] oophoritis documented in this encounter Care Teams Radiology Practitioner Assistant Relationship Specialty Start Date End Date None PCP - General 12/03/19 None documented as of this encounter
--- OUTSIDE RECORDS SUMMARY | 2022-01-29 01:34 | XMS_ITS | Encounter Summary ---
:1940 [place] [address] Care Team Providers Name Role Phone None Primary Care Provider Unavailable Encounter Details Date Type Department Care Team Description 01/23/2020 Ancillary Procedure Radiology Library at Jorge Romero [facility] [place] [address] ONCOLOGY [phone] [place], [place] [address] (Wo rk) Social History Tobacco Use Types Packs/Day Years Used Date Never Smoker Smokeless Tobacco: Never Used Sex Assigned at Date Recorded Not on file documented as of this encounter Plan of Treatment Upcoming Encounters Date Type Specialty Care Team Description 01/29/2022 Office Visit Hematology and Oncology Michael Romero MD [facility] [place] [address] Mckenna Farris [address] MEDICAL ONCOLOGY [place], [place] [phone] 01/29/2022 Infusion Hematology and Oncology 02/12/2022 Office Visit Hematology and Oncology Michael Romero MD [facility] [place] [address] Mckenna Farris [address] MEDICAL ONCOLOGY [place], [place] [phone] 02/12/2022 Infusion Hematology and Oncology 02/26/2022 Office Visit Hematology and Oncology Michael Romero MD [facility] ER ONCOLOGY [place], [place] 0375 (Wo rk) 02/26/2022 Infusion Hematology [...] Time Received Time / Laterality Volume Narrative [facility] - 04/16/2021 10:56 AM EST This exam is auto-finalizing. It's purpo se is for storage only. Michael Romero MD IMG FILM LIBRARY ORDERABLES Performing Organization Address City/State/ZIP Code Phon e Number [place], [place] documented in this encounter Visit Diagnoses Not on filedocumented in this encounter Care Teams Ecommerce Merchandising Manager Relationship Specialty Start Date End Date None PCP - General 12/03/19 None documented as of this encounter
--- OUTSIDE RECORDS SUMMARY | 2022-01-29 01:34 | XMS_ITS | Encounter Summary ---
:1940 Author Organization [facility] [place] [address] Care Team Providers Name Role Phone None Primary Care Provider Unavailable Reason for Visit Reason Onset Date Comments Schedule External Case 12/03/2019 Encounter Details Date Type Department Care Team Description 12/03/2019 Telephone ANIMAL CARETAKER at [facility] [address] [place] [phone] Social History Tobacco Use Types Packs/Day Years Used Date Never Smoker Smokeless Tobacco: Never Used Sex Assigned at Date Recorded Not on file documented as of this encounter Miscellaneous Notes Telephone Encounter - Noreen Mendoza - 12/03/2019 4:36 PM EDT I have scheduled Joy's surgery for 12/04 at 7:30am at [facility] with [place]. Epperson (along with Drs. Smyth & Kathleen). She's having a JOSE ROBERTO, BSO with Dr. Epperson. Noreen CPT code 52143, Am Admit documented in this encounter Plan of Treatment Upcoming Encounters Date Type Specialty Care Team Description 01/29/2022 Office Visit Hematology and Oncology Michael Romero MD [facility] [place] [address] Mckenna Farris, PERSONAL INJURY LAW SPECIALIST [address] [place] [address] [place] [address] 01/29/2022 Infusion Hematology and Oncology 02/12/2022 Office Visit Hematology and Oncology Michael Romero MD [facility] [place] [address] Mckenna Farris, [address] [address] 02/12/2022 Infusion Hematology and Oncology 02/26/2022 Office Visit Hematology and Oncology Michael Romero MD [facility] [address] [place] [place], [place] [address] (Wo rk) 02/26/2022 Infusion Hematology and Oncology documented as of this encounter Visit Diagnoses Not on filedocumented in this encounter Care Teams Bracelet Form Coverer Relationship Specialty Start Date End Date None PCP - General 12/03/19 None documented as of this encounter
--- OUTSIDE RECORDS SUMMARY | 2022-01-29 01:34 | XMS_ITS | Encounter Summary ---
:1940 [place] [address] Care Team Providers Name Role Phone Unavailable Primary Care Provider Unavailable Encounter Details Date Type Department Care Team Description 10/30/2019 Ancillary Procedure Radiology Library at Jorge Romero [facility] [place] [address] ONCOLOGY [phone] [place], [place] [address] (Wo rk) Social History Tobacco Use Types Packs/Day Years Used Date Never Assessed Sex Assigned at Date Recorded Not on file documented as of this encounter Plan of Treatment Upcoming Encounters Date Type Specialty Care Team Description 01/29/2022 Office Visit Hematology and Oncology Michael Romero MD [facility] [place] [address] Mckenna Farris [address] MEDICAL ONCOLOGY [place], [place] [phone] 01/29/2022 Infusion Hematology and Oncology 02/12/2022 Office Visit Hematology and Oncology Michael Romero MD [facility] [place] [address] [address] MEDICAL ONCOLOGY [place], [place] [phone] 02/12/2022 Infusion Hematology and Oncology 02/26/2022 Office Visit Hematology and Oncology Michael Romero MD [facility] ER ONCOLOGY [place], [place] [address] (Wo rk) 02/26/2022 Infusion Hematology [...] / Laterality Volume Narrative BH[facility] - 04/16/2021 11:06 AM EST This exam is auto-finalizing. It's purpo se is for storage only. Michael Romero MD IMG FILM LIBRARY ORDERABLES Performing Organization Address City/State/ZIP Code Phon e Number BHART[place], [place] documented in this encounter Visit Diagnoses Not on filedocumented in this encounter
--- OUTSIDE RECORDS SUMMARY | 2022-01-29 01:34 | XMS_ITS | Encounter Summary ---
:1940 Author Organization [facility] [place] [address] Care Team Providers Name Role Phone Unavailable Primary Care Provider Unavailable Encounter Details Date Type Department Care Team Description 11/26/2019 Orders Only STIPPLER at [facility], Dannie Castañeda, DO Man[place] [address] [place] [address] OBSTETRICS & [place] [address] [place] [address] [phone] (Wo rk) Social History Tobacco Use Types Packs/Day Years Used Date Never Assessed Sex Assigned at Date Recorded Not on file documented as of this encounter Plan of Treatment Upcoming Encounters Date Type Specialty Care Team Description 01/29/2022 Office Visit Hematology and Oncology Michael Romero MD [facility] [place] [address] Mckenna Farris [address] MEDICAL ONCOLOGY [place], [place] [phone] 01/29/2022 Infusion Hematology and Oncology 02/12/2022 Office Visit Hematology and Oncology Michael Romero MD [facility] [place] [address] [address] MEDICAL ONCOLOGY [place], [place] [phone] 02/12/2022 Infusion Hematology and Oncology 02/26/2022 Office Visit Hematology and Oncology Michael Romero MD [facility] DR ONCOLOGY [place], [place] [address] (Wo rk) 02/26/2022 Infusion Hematology and Oncology documented as of this encounter Visit Diagnoses Not on filedocumented in this encounter
--- OUTSIDE RECORDS SUMMARY | 2022-01-29 01:34 | XMS_ITS | Encounter Summary ---
:1940 [place] [address] Care Team Providers Name Role Phone Unavailable Primary Care Provider Unavailable Encounter Details Date Type Department Care Team Description 10/03/2019 Ancillary Procedure Radiology Library at Jorge Romero [facility] [place] [address] ONCOLOGY [phone] [place], [place] [address] (Wo rk) Social History Tobacco Use Types Packs/Day Years Used Date Never Assessed Sex Assigned at Date Recorded Not on file documented as of this encounter Plan of Treatment Upcoming Encounters Date Type Specialty Care Team Description 01/29/2022 Office Visit Hematology and Oncology Michael Romero MD [facility] [place] [address] Mckenna Farris [address] MEDICAL ONCOLOGY [place], [place] [phone] 01/29/2022 Infusion Hematology and Oncology 02/12/2022 Office Visit Hematology and Oncology Michael Romero MD [facility] [place] [address] [address] MEDICAL ONCOLOGY [place], [place] [phone] 02/12/2022 Infusion Hematology and Oncology 02/26/2022 Office Visit Hematology and Oncology Michael Romero MD [facility] ER ONCOLOGY [place], [place] 0[address] (Wo rk) 02/26/2022 Infusion Hematology [...] Organization Address City/State/ZIP Code Phon e Number [place], [place] documented in this encounter Visit Diagnoses Not on filedocumented in this encounter
--- OUTSIDE RECORDS SUMMARY | 2022-01-29 01:34 | XMS_ITS | Encounter Summary ---
:1940 [place] [address] Care Team Providers Name Role Phone None Primary Care Provider Unavailable Encounter Details Date Type Department Care Team Description 04/01/2020 Ancillary Procedure Radiology Library at Jorge Romero [facility] [place] [address] ONCOLOGY [phone] [place], [place] [address] (Wo rk) Social History Tobacco Use Types Packs/Day Years Used Date Never Smoker Smokeless Tobacco: Never Used Sex Assigned at Date Recorded Not on file documented as of this encounter Plan of Treatment Upcoming Encounters Date Type Specialty Care Team Description 01/29/2022 Office Visit Hematology and Oncology Michael Romero MD [facility] [place] [address] Mckenna Farris [address] MEDICAL ONCOLOGY [place], [place] [phone] 01/29/2022 Infusion Hematology and Oncology 02/12/2022 Office Visit Hematology and Oncology Michael Romero MD [facility] [place] [address] Mckenna Farris [address] MEDICAL ONCOLOGY [place], [place] [phone] 02/12/2022 Infusion Hematology and Oncology 02/26/2022 Office Visit Hematology and Oncology Michael Romero MD [facility] ER ONCOLOGY [place], [place] [address] (Wo rk) 02/26/2022 Infusion Hematology [...] Time Received Time / Laterality Volume Narrative [facility] - 04/16/2021 11:02 AM EST This exam is auto-finalizing. It's purpo se is for storage only. Michael Romero MD IMG FILM LIBRARY ORDERABLES Performing Organization Address City/State/ZIP Code Phon e Number [place], [place] documented in this encounter Visit Diagnoses Not on filedocumented in this encounter Care Teams Plating Foreman Relationship Specialty Start Date End Date None PCP - General 12/03/19 None documented as of this encounter
--- OUTSIDE RECORDS SUMMARY | 2022-01-29 01:34 | XMS_ITS | Encounter Summary ---
:1940 Author Organization [place] [address] Care Team Providers Name Role Phone None Primary Care Provider Unavailable Reason for Visit Surgical (Routine) - Canceled Specialty Diagnoses / Procedures Referred By Contact Refer red To Contact Diagnoses Hydrosalpinx Dannie Epperson DO Procedures HYSTERECTOMY, TOTAL ABD., W W/O BSO [address] [place] [address] OBSTETRICS [place] [address] Referral ID Status Reason Start Expiration Visits Visits Date Date Requested Authorized [id number] Canceled Specialty 12/03/2019 05/31/2020 1 1 Service Requested Encounter Details Date Type Department Care Team Description 12/05/2019 Ext Surgery or Christianity Medical Dannie Epperson DO Malignant neoplasm Single [facility] [address] [place] [address] of ascending colon [address] [place], [place] GYNECOLOGY [address] [place] [address] [phone] (Wo rk) Social History Tobacco Use Types Packs/Day Years Used Date Never Smoker Smokeless Tobacco: Never Used Sex Assigned at Date Recorded Not on file documented as of this encounter Procedure Notes Dannie Epperson DO - 12/05/2019 7:30 AM EDT [facility] BRIEF OPERATIVE NOTE Date: 12/05/2019 Preop Dx: R adnexal cyst, colon cancer, bladder cancer Postop Dx: same Procedure: JOSE ROBERTO-BSO Surgeon: Zeenat Assistant Golf Coach: Kahlil Hackett MD, PGY2 Anesthesia: GETA EBL: [...] Romero MD [facility] [place] [address] MEDICAL ONCOLOGY [place], [place] [phone] 01/29/2022 Infusion Hematology and Oncology 02/12/2022 Office Visit Hematology and Oncology Michael Romero MD [facility] [place] [address] [place] [address] 02/12/2022 Infusion Hematology and Oncology 02/26/2022 Office Visit Hematology and Oncology Michael Romero MD [facility] DR [place], [place] [address] (Wo rk) 02/26/2022 Infusion Hematology and Oncology documented as of this encounter Visit Diagnoses Diagnosis Malignant neoplasm of ascending colon documented in this encounter Care Teams Yeast Fermentation Attendant Relationship Specialty Start Date End Date None PCP - General 12/03/19 None documented as of this encounter
--- OUTSIDE RECORDS SUMMARY | 2022-01-29 01:34 | XMS_ITS | Encounter Summary ---
:1940 [place] [address] Care Team Providers Name Role Phone None Primary Care Provider Unavailable Encounter Details Date Type Department Care Team Description 12/25/2019 Ancillary Procedure Radiology Library at Jorge Romero [facility] [place] [address] ONCOLOGY [phone] [place], [place] [address] (Wo rk) Social History Tobacco Use Types Packs/Day Years Used Date Never Smoker Smokeless Tobacco: Never Used Sex Assigned at Date Recorded Not on file documented as of this encounter Plan of Treatment Upcoming Encounters Date Type Specialty Care Team Description 01/29/2022 Office Visit Hematology and Oncology Michael Romero MD [facility] [place] [address] Mckenna Farris [address] MEDICAL ONCOLOGY [place], [place] [phone] 01/29/2022 Infusion Hematology and Oncology 02/12/2022 Office Visit Hematology and Oncology Michael Romero MD [facility] [place] [address] Mckenna Farris [address] MEDICAL ONCOLOGY [place], [place] [phone] 02/12/2022 Infusion Hematology and Oncology 02/26/2022 Office Visit Hematology and Oncology Michael Romero MD [facility] ER [address] [place], [place] [address] (Wo rk) 02/26/2022 Infusion Hematology [...] Time Received Time / Laterality Volume Narrative [facility] - 04/16/2021 11:04 AM EST This exam is auto-finalizing. It's purpo se is for storage only. Michael Romero MD IMG FILM LIBRARY ORDERABLES Performing Organization Address City/State/ZIP Code Phon e Number [place], [place] documented in this encounter Visit Diagnoses Not on filedocumented in this encounter Care Teams Welding Tester Relationship Specialty Start Date End Date None PCP - General 12/03/19 None documented as of this encounter
--- OUTSIDE RECORDS SUMMARY | 2022-01-29 01:34 | XMS_ITS | Encounter Summary ---
:1940 [place] [address] Care Team Providers Name Role Phone Unavailable Primary Care Provider Unavailable Encounter Details Date Type Department Care Team Description 10/23/2019 Ancillary Procedure Radiology Library at Jorge Romero [facility] [address] ONCOLOGY [phone] [place], [place] [address] (Wo rk) Social History Tobacco Use Types Packs/Day Years Used Date Never Assessed Sex Assigned at Date Recorded Not on file documented as of this encounter Plan of Treatment Upcoming Encounters Date Type Specialty Care Team Description 01/29/2022 Office Visit Hematology and Oncology Michael Romero MD [facility] [place] [address] Mckenna Farris [address] MEDICAL ONCOLOGY [place], [place] [phone] 01/29/2022 Infusion Hematology and Oncology 02/12/2022 Office Visit Hematology and Oncology Michael Romero MD [facility] [place] [address] [address] MEDICAL ONCOLOGY [place], [place] [phone] 02/12/2022 Infusion Hematology and Oncology 02/26/2022 Office Visit Hematology and Oncology Michael Romero MD [facility] ER ONCOLOGY [place], [place] [address] (Wo rk) 02/26/2022 Infusion Hematology [...] / Laterality Volume Narrative RAD - 04/16/2021 11:10 AM EST This exam is auto-finalizing. It's purpo se is for storage only. Michael Romero MD IMG FILM LIBRARY ORDERABLES Performing Organization Address City/State/ZIP Code Phon e Number [place] documented in this encounter Visit Diagnoses Not on filedocumented in this encounter
--- OUTSIDE RECORDS SUMMARY | 2022-01-29 01:36 | XMS_ITS | Encounter Summary ---
:1940 Author Organization [facility] Address [address] [place] [address] Care Team Providers Name Role Phone Nayan Hilton Primary Care Provider Encounter Details Date Type Department Care Team Description 11/19/2019 Orders Only [facility] Sophie Benson RN General Surgery - Main [address] [place] [id number] [address] [place] [address] Social History Tobacco Use Types Packs/Day Years [...] on filedocumented in this encounter Care Teams Cover Assembler Relationship Specialty Start Date End Date Nayan Hilton DO PCP - General 06/17/17 04/01/20 documented as of this encounter
--- OUTSIDE RECORDS SUMMARY | 2022-01-29 01:36 | XMS_ITS | Encounter Summary ---
:1940 Author Organization [facility] Address [address] [place] [address] Care Team Providers Name Role Phone Nayan Hilton Primary Care Provider Reason for Visit Laboratory Services (Routine) - New Request Specialty Diagnoses / Procedures Referred By Contact Refer red To Contact Diagnoses Colovesical fistula Bashir Kapadia MD Procedures BACTERIAL CULTURE, URINE [address] [facility], [facility] [address] [place] [phone] Referral ID Status Reason Start Date Expiration Date Visits V isits Requested Authorized [id number] New Request 11/14/2019 1 1 Encounter Details Date Type Department Care Team Description 11/19/2019 Phlebotomy Only [facility] 2 Cabin Crew, Acc Colove sical fistula; Phlebotomy Phlebotomy Malignant neoplasm of ascend ing colon ([facility]) [address] [place] [address] Social History Tobacco Use Types Packs/Day Years [...] EDT of ascending colon procedure are in ([facility]) the results section. COMPLETE BLOOD COUNT Routine 11/19/2019 12:36 Malignant neopla sm Results for this EDT of ascending colon procedure are in ([facility]) the results section. TYPE AND SCREEN Today 11/19/2019 12:36 Malignant neoplasm Re sults for this EDT of ascending colon procedure are in ([facility]) the results section. BUN Routine 11/19/2019 12:36 Malignant neoplasm Resul ts for this EDT of ascending colon procedure are in ([facility]) the results section. CREATININE Routine 11/19/2019 12:36 Malignant neoplasm Resul ts for this EDT of ascending colon procedure are in ([facility]) the results section. ELECTROLYTES Routine 11/19/2019 12:36 Malignant neoplasm Resul ts for this EDT of ascending colon procedure are in ([facility]) the results section. documented in this encounter Results TYPE AND SCREEN (11/19/2019 12:36 EDT) ABO O [facility] BLOOD BANK Rh Factor Positive [facility] BLOOD BANK Antibody Screen Negative [facility] BLOOD BANK Specimen Expires: 12/03/2019 @ 23:59 [facility] BLOOD BANK Specimen Blood - Venous blood (substance) Performing Organization Address City/State/ZIP Code Phon e Number [facility] BLOOD BANK [address] [facility] [place] [address] (ABNORMAL) COMPLETE BLOOD COUNT (11/19/2019 12:36 EDT) Pathologist Sig nature WBC 9.83 4.00 - 12.40 [facility] RBC 3.57 (L) 3.86 - 5.04 M/cmm [facility] LABORATORY SERVICES Hemoglobin 8.6 (L) 11.6 - 15.2 gm/dL [facility] LABORATORY SERVICES HCT 29.4 (L) 34.9 - 44.4 % [facility] LABORATORY SERVICES MCV 82 81 - 98 fl [facility] LABORATORY SERVICES MCH 24.1 (L) 26.7 - 33.3 pg [facility] LABORATORY SERVICES Hypochromia 1+ [facility] LABORATORY SERVICES MCHC 29.3 (L) 32.1 - 35.9 gm/dL [facility] LABORATORY SERVICES RDW-CV 17.0 (H) <14.7 % [facility] LABORATORY SERVICES RDW-SD 49.7 <50.4 fl [facility] LABORATORY SERVICES Anisocytosis 1+ [facility] LABORATORY SERVICES PLT 626 (H) 141 - 377 K/cmm [facility] LABORATORY SERVICES MPV 9.1 (L) 9.5 - 12.7 fl [facility] LABORATORY SERVICES Specimen Blood - Venous blood (substance) Performing Organization Address City/[facility] Code Phon e Number [facility] LABORATORY [address] [place] [phone] SERVICES CREATININE (11/19/2019 12:36 EDT) Creatinine 0.81 0.52 - 1.04 [facility] mg/dL LABORATORY SERVICES eGFR 70Comment: eGFR >60 [facility] calculated using mL/min/1.73m2 LABORATORY SERVICES CKD-EPI equation for non- Americans. Multiply eGFR by 1.16 for patients. Specimen Blood - Venous blood (substance) Performing Organization Address City/[facility]/ZIP Code Phon e Number [facility] LABORATORY [address] [place] [address] SERVICES BUN (11/19/2019 12:36 EDT) Pathologist Sig nature BUN 18 10 - 26 mg/dL [facility] LABORATO RY SERVICES Specimen Blood - Venous blood (substance) Performing Organization Address [facility]/ZIP [facility] Phon e Number [facility] LABORATORY [address] [place] [address] SERVICES (ABNORMAL) ELECTROLYTES (11/19/2019 12:36 EDT) Pathologist Sig nature Sodium 132 (L) 136 - 145 mEq/L [facility] LABORA TORY SERVICES Potassium 4.3 3.5 - 5.0 mEq/L [facility] LABORA TORY SERVICES Chloride 97 96 - 110 mEq/L [facility] LABORAT ORY SERVICES CO2 Total 25 22 - 32 mEq/L [facility] LABORATO RY SERVICES Specimen Blood - Venous blood (substance) Performing Organization Address City/State/ZIP Code Phon e Number [facility] LABORATORY [address] [place] [address] SERVICES PRE-OP BLOOD BANK DRAW (11/19/2019 12:36 EDT) Pathologist Sig nature Hold BB Specimen valid up to [facility] 30 days from BLOOD BANK collection date. Specimen Blood - Venous blood (substance) Performing Organization Address City/[facility]/ZIP Code Phon e Number [facility] BLOOD BANK [address] [place] [address] documented in this encounter Visit Diagnoses Diagnosis Colovesical fistula Intestinovesical fistula Malignant neoplasm of ascending colon (H CC-CMS) (HCC) Malignant neoplasm of ascending colon documented in this encounter Care Teams Wood Boat Builder Supervisor Relationship Specialty Start Date End Date Nayan Hilton DO PCP - General 06/17/17 04/01/20 documented as of this encounter
--- OUTSIDE RECORDS SUMMARY | 2022-01-29 01:36 | XMS_ITS | Encounter Summary ---
:1940 Author Organization [facility] Address [address] [place] [address] Care Team Providers Name Role Phone Manuel Isaacs MD Primary Care Provider Encounter Details Date Type Department Care Team Description 09/25/2021 [facility] Outr Resulting Lab, Pathology & Laboratory Provider [facility] [address] [place], [place] [phone] Social History Tobacco Use Types Packs/Day Years [...] (09/25/2021 8:50 EDT) CEA 4.3 See Note [facility] Comment: ng/mL LABORATORY % Distribution [...] malignant disease. ?? Assayed on Siemens ADVIA [employer] taur XPT using chemiluminescent technology. ??Values obtained by different assay methods cannot be used interchangeably. Specimen Blood - Venous blood (substance) Performing Organization Address City/State/ZIP Code Phon e Number [facility] LABORATORY [address] [place] [address] SERVICES documented in this encounter Visit Diagnoses Not on filedocumented in this encounter Care Teams Manufacturing Project Manager Relationship Specialty Start Date End Date Manuel Isaacs MD PCP - General 04/02/[address] [place] [phone] documented as of this encounter
--- OUTSIDE RECORDS SUMMARY | 2022-01-29 01:36 | XMS_ITS | Encounter Summary ---
:1940 Author Organization [facility] Address [address] [place] [address] Care Team Providers Name Role Phone Manuel Isaacs MD Primary Care Provider Encounter Details Date Type Department Care Team Description 02/18/2021 Lab Requisition [facility] Jamie Jean-Baptiste E ncounter for other Pathology & MD general examination Laboratory Medicine [address] [place] [address] [address] [place] [address] [place], [place] [phone] Social History Tobacco Use Types Packs/Day Years [...] 8:57 EST) Note to Patient The following [facility] MEDICAL pathology results have CENTER been interpreted by LABORATORY your pathologist and SERVICES may be available to you before your health provider has had the opportunity to review them. Please allow time for your provider to receive these results and explore management options, if applicable. Final Diagnosis A. 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 CENTER - See comment. LABORATORY SERVICES Diagnosis Comment Immunoperoxidase stains were performed on this case to further characterize the lesion. [facility] ANTIBODY(CLONE)(BLOCK):RESULT LABORATORY CDX-2 (EP25, Leica) (A1): [...] characteristics have been de termined by [facility] and/or by the referring laboratory. [...] to perform high complexity clinical laboratory testing. Clinical Courier slides of thi s case were reviewed at the gastrointestinal/liver intradepartmental consultation conference. (RW) Attestation There was significant [facility] [...] or confirmed the above diagnosis. Intraoperative A. [facility] MEDICAL Consultation OMENTAL MASS, UNORIENTED EXCISION (SPA1): CENTER - Positive for malignancy. Adenocarcinoma. LABORATORY - Diagnosis of malignancy te lephoned to Dr. Jean-Baptiste in [place] 1 ([id number]) at 9:25 AM on 02/18/2021. Dr. Ifeanyi Jain 02/18/2021 SERVICES Clinical History Omental mass [facility] LABORATORY SERVICES Gross Description A. [facility] Received fresh labelled with proper patient identification (initials H, I) and omental mass is an unoriented 2.0 x 2.0 x 1.0 cm ovoid yellow-pate fibrofatty tissue with palpable consolidation. The [facility] CENTER ins are inked. The tissue is bisected to show a solid pate mass (0.8 cm in greatest dimension) with ill-defined borders from the surrounding fat. A patient portal representative section was frozen; however unable to [facility] frozen section due to technical issue with the cryostat (build up of ice, unable to advance/retract specimen). Therefore, scrape/smear slide was prepared and stained with Diff-Quik with the [facility] SERVICES retation as rendered above. The majority of the specimen is submitted in A1-A4 with the section that was frozen in A1. [place](ASCP) 02/19/2021 9:54 Resident/Fellow: Sheela Reyna, [facility] LABORATORY SERVICES Performing Lab [facility] LAB [facility] LABORATORY SERVICES Scanned Images [facility] LABORATORY SERVICES Specimen Tissue - Soft tissue (navigational jose angel pt) Performing Organization Address City/State/ZIP Code Phon e Number [facility] LABORATORY [address] [place] [address] SERVICES documented in this encounter Visit Diagnoses Diagnosis Encounter for other general examination documented in this encounter Care Teams Budget Analyst Relationship Specialty Start Date End Date Manuel Isaacs MD PCP - General 04/02/[address] [place] [phone] documented as of this encounter
--- OUTSIDE RECORDS SUMMARY | 2022-01-29 01:36 | XMS_ITS | Clinical Summary ---
:1940 Author Organization [facility] Address [address] [place] [address] Care Team Providers Name Role Phone Manuel [...] Noted Date Colon cancer, ascending ([facility]) 11/19/2019 Malignant neoplasm of colon 11/19/2019 Overview: Added automatically from request for juan carlos contreras [id number] Sepsis 09/03/2015 Intra-abdominal infection 09/03/2015 Colon polyp 03/04/2011 Family history of polyps in the colon 03/04/2011 Encounters Date Type Specialty Care Team Description 01/01/2022 Lab Requisition Clinical [facility] Outr Resulting Lab , Provider 12/18/2021 Lab Requisition Clinical Laboratory Outr Resulting Lab , Provider 12/04/2021 Lab Requisition Clinical Laboratory Outr Resulting Lab , Provider 11/20/2021 Lab Requisition Clinical Laboratory Outr Resulting [...] Date/Time Associated Diagnosis Comme nts CEA Routine 01/01/2022 8:00 EDT Results for this procedure are i n the results section . CEA Routine 12/18/2021 13:00 EDT Results for this procedure are i n the results section . CEA Routine 12/04/2021 7:55 EDT Results for this procedure are i n the results section . CEA Routine 11/20/2021 8:40 EDT Results for this procedure are i n the results section . CEA Routine 11/06/2021 9:55 EDT Results for this procedure are i n the results section . from Last 3 Months Results CEA (01/01/2022 8:00 EDT)Only the most recent of5 resultswithin the time period is included. CEA 4.2 See Note [facility] Comment: ng/mL LABORATORY % Distribution of [...] Organization Address City/State/ZIP Code Phon e Number [facility] LABORATORY [address] [place] [address] SERVICES from Last 3 Months Insurance Payer Benefit Plan / Subscriber ID Effective Dates Phone Addre ss Type Group MEDICARE MEDICARE A/B [id number] 2007-Present [id number] Medicare [facility] [place] [id number] Joy Armstrong Personal/Family Self 1940 [address] [place] [address] Joy Armstrong Personal/Family Self [address] [place] [address] Joy Armstrong Personal/Family Self [address] [facility] [place] [address] Joy Armstrong Personal/Family Self 1940 [address] ([address]) [facility] [place] [address] Joy Armstrong Personal/Family Self 1940 [address] (Home) [facility] [place] [address] Joy Armstrong Personal/Family Self 1940 [address] (Home) [facility] [place] [address] Joy Armstrong Personal/Family Self 1940 [address] (Home) [facility] [place] [address] Advance Directives For more information, please contact: [phone] Latest Code Status on File Code Status Date Activated Date Inactivated Comments Full Code 09/03/2015 13:11 09/07/2015 15:54 Reason for decision includes: Full code consistent with over all plan of care Who participated in the discussion? Patient Care Teams Supervisor Cigarette Making Department Relationship Specialty Start Date End Date Manuel Isaacs MD PCP - General 04/02/[address] [place] [phone]
--- OUTSIDE RECORDS SUMMARY | 2022-01-29 01:36 | XMS_ITS | Encounter Summary ---
:[address] [facility] Address [address] [place] [address] Care Team Providers Name Role Phone Manuel Isaacs MD Primary Care Provider Encounter Details Date Type Department Care Team Description 12/18/2021 Lab Requisition [facility] Outr Resulting Lab, Pathology & Laboratory Provider [facility] [address] [place], [place] [phone] Social History Tobacco Use Types Packs/Day Years [...] Date/Time Associated Diagnosis Comme nts CEA Routine 12/18/2021 13:00 EDT Results for this procedure are i n the results section . documented in this encounter Results CEA (12/18/2021 13:00 EDT) CEA 3.8 See Note [facility] Comment: ng/mL LABORATORY % [...] malignant disease. ?? Assayed on Siemens ADVIA [employer] taur XPT using chemiluminescent technology. ??Values obtained by different assay methods cannot be used interchangeably. Specimen Blood - Venous blood (substance) Performing Organization Address City/State/ZIP Code Phon e Number [facility] LABORATORY [address] [place] [address] SERVICES documented in this encounter Visit Diagnoses Not on filedocumented in this encounter Care Teams Driveway Attendant Relationship Specialty Start Date End Date Manuel Isaacs MD PCP - General 04/02/[address] [place] [phone] documented as of this encounter
--- OUTSIDE RECORDS SUMMARY | 2022-01-29 01:36 | XMS_ITS | Encounter Summary ---
:[address] [facility] Address [address] [place] [address] Care Team Providers Name Role Phone Manuel Isaacs MD Primary Care Provider Encounter Details Date Type Department Care Team Description 10/09/2021 Lab Requisition [facility] Outr Resulting Lab, Pathology & Laboratory Provider [facility] [address] [place], [place] [id number] Social History Tobacco Use Types Packs/Day Years [...] (10/09/2021 8:12 EDT) CEA 4.0 See Note [facility] Comment: ng/mL LABORATORY % Distribution [...] malignant disease. ?? Assayed on Siemens ADVIA [employer] taur XPT using chemiluminescent technology. ??Values obtained by different assay methods cannot be used interchangeably. Specimen Blood - Venous blood (substance) Performing Organization Address City/State/ZIP Code Phon e Number [facility] LABORATORY [address] [place] [address] SERVICES documented in this encounter Visit Diagnoses Not on filedocumented in this encounter Care Teams Certified Orthotist Relationship Specialty Start Date End Date Maneul Isaacs MD PCP - General 04/02/[address] [place] [phone] documented as of this encounter
--- OUTSIDE RECORDS SUMMARY | 2022-01-29 01:36 | XMS_ITS | Encounter Summary ---
:1940 Author Organization [facility] Address [address] [place] [address] Care Team Providers Name Role Phone Manuel Isaacs MD Primary Care Provider Encounter Details Date Type Department Care Team Description 12/24/2020 Lab Requisition [facility] Dixon Urena Enc ounter for other Pathology & MD general examination Laboratory Medicine - [address] [place] [address] [address] [facility] [address] [place], [place] [phone] Social History Tobacco Use Types Packs/Day Years [...] Priority Date/Time Associated Diagnosis Comme nts NON ASSOCIATE MEDIA DIRECTOR/FNA Today 12/24/2020 10:45 Results for this CYTOLOGY EDT procedure are i n the results section. documented in this encounter Results NON ASSOCIATE MEDIA DIRECTOR/FNA CYTOLOGY (12/24/2020 10:45 EDT) Note to Patient The following [facility] pathology results have CENTER been interpreted by LABORATORY your pathologist and SERVICES may be available to you before your health provider has had the opportunity to review them. Please allow time for your provider to receive these results and explore management options, if applicable. Final Diagnosis A. RECTUS ABDOMINUS MUSCLE, RIGHT, ULTRASOUND-GUIDED FINE-NEEDLE ASPIRATION: [facility] - Adenocarcinoma. See comment. [facility] LABORATORY SERVICES Diagnosis Comment The aspirate smears are cell ular and show crowded sheets of malignant glandular cells with nuclear crowding and nuclear membrane irregularity. Although the SATB2 stain would be expected to be positive i [facility] n colo-rectal carcinomas, a small percent of cases have been reported to be negative. Clinical and radiographic correlation is hence essential. Dr. David Roth has reviewed this case in consultation and concurs with the diagnosis. [facility] Immunoperoxidase stains were performed on this case [...] characteristics have been de termined by [facility] and/or by the referring laboratory. The positive [...] have personally conducted a gross and/or microscopic [facility] Electronically examination of the described specimens and rendered or confirmed the above diagnosis. CENTER signed by FLOYD Luciano MD on SERVICES 12/30/2020 at 14 10 Rapid Diagnosis RECTUS ABDOMINUS MUSCLE, RIG HT, ULTRASOUND GUIDED FINE NEEDLE ASPIRATION: [facility] MEDICAL Evaluation episode #1: Pass #1: [...] Aspiration sample was performed by Pathologists at [facility], [address] [place] [address]. 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 [facility] 2 fixed prepared slides, 3 D iff Quik prepared slides, and 1 tube of CytoLyt were received and processed by selective cellular enhancement technique. [facility] LABORATORY SERVICES Performing Lab [facility] LAB [facility] LABORATORY SERVICES Scanned Images [facility] LABORATORY SERVICES Specimen ZZUNK - Soft tissue (navigational concep t) Performing Organization Address City/State/ZIP Code Phon e Number [facility] LABORATORY [address] [place] [address] SERVICES documented in this encounter Visit Diagnoses Diagnosis Encounter for other general examination documented in this encounter Care Teams Rpg Developer Relationship Specialty Start Date End Date Manuel Isaacs MD PCP - General 04/02/[address] [place] [phone] documented as of this encounter
--- OUTSIDE RECORDS SUMMARY | 2022-01-29 01:36 | XMS_ITS | Encounter Summary ---
:1940 Author Organization [facility] Address [address] [place] [address] Care Team Providers Name Role Phone Nayan Hilton DO Primary Care Provider Encounter Details Date Type Department Care Team Description 11/19/2019 Orders Only [facility] Valerie Zamora MD Encounter for General Surgery - 111 [facility] laboratory [facility] [place] [facility] [address] testing for COVID-19 111 [facility], [place] [address] Tish, Level 5 patient (Primary Dx) [phone] [place] [phone] (Wo rk) Social History Tobacco Use Types [...] Primary documented in this encounter Care Teams Casualty Underwriter Relationship Specialty Start Date End Date Nayan Hilton DO PCP - General 06/17/17 04/01/20 documented as of this encounter
--- OUTSIDE RECORDS SUMMARY | 2022-01-29 01:36 | XMS_ITS | Encounter Summary ---
:1940 Author Organization [facility] Address [address] [place] [address] Care Team Providers Name Role Phone Manuel Isaacs MD Primary Care Provider Encounter Details Date Type Department Care Team Description 05/26/2021 Lab Requisition [facility] Outr Resulting Lab, Pathology & Laboratory Provider [facility] [address] [place], [place] [id number] Social History Tobacco Use Types Packs/Day Years [...] (05/26/2021 10:10 EST) CEA 3.1 See Note [facility] Comment: ng/mL LABORATORY % Distribution of [...] City/State/ZIP Code Phon e Number [facility] [address] [place] [address] SERVICES documented in this encounter Visit Diagnoses Not on filedocumented in this encounter Care Teams Plastic Card Grader Cardroom Relationship Specialty Start Date End Date Manuel Isaacs MD PCP - General 04/02/[address] [place] [phone] documented as of this encounter
--- OUTSIDE RECORDS SUMMARY | 2022-01-29 01:36 | XMS_ITS | Encounter Summary ---
:1940 Author Organization [facility] Address [address] [place] [address] Care Team Providers Name Role Phone Manuel Isaacs MD Primary Care Provider Encounter Details Date Type Department Care Team Description 11/20/2021 Lab Requisition [facility] Outr Resulting Lab, Pathology & Laboratory Provider [facility] [address] [place], [place] [id number] Social History Tobacco Use Types Packs/Day Years [...] (11/20/2021 8:40 EDT) CEA 3.7 See Note [facility] Comment: ng/mL LABORATORY % Distribution of [...] malignant disease. ?? Assayed on Siemens [employer] taur XPT using chemiluminescent technology. ??Values obtained by different assay methods cannot be used interchangeably. Specimen Blood - Venous blood (substance) Performing Organization Address City/State/ZIP Code Phon e Number [facility] [address] [place] [address] SERVICES documented in this encounter Visit Diagnoses Not on filedocumented in this encounter Care Teams Feather Separator Relationship Specialty Start Date End Date Manuel Isaacs MD PCP - General 04/02/[address] [place] [phone] documented as of this encounter
--- OUTSIDE RECORDS SUMMARY | 2022-01-29 01:36 | XMS_ITS | Encounter Summary ---
:1940 Author Organization [facility] Address [address] [place] [address] Care Team Providers Name Role Phone Manuel Isaacs MD Primary Care Provider Encounter Details Date Type Department Care Team Description 10/23/2021 Lab Requisition [facility] Outr Resulting Lab, Pathology & Laboratory Provider [facility] [address] [place], [place] [id number] Social History Tobacco Use Types Packs/Day Years [...] (10/23/2021 10:47 EDT) CEA 4.4 See Note [facility] Comment: ng/mL LABORATORY % Distribution of [...] malignant disease. ?? Assayed on Siemens [employer] taur XPT using chemiluminescent technology. ??Values obtained by different assay methods cannot be used interchangeably. Specimen Blood - Venous blood (substance) Performing Organization Address City/State/ZIP Code Phon e Number [facility] [address] [place] [address] SERVICES documented in this encounter Visit Diagnoses Not on filedocumented in this encounter Care Teams Steel Sash Erector Relationship Specialty Start Date End Date Manuel Isaacs MD PCP - General 04/02/[address] [place] [phone] documented as of this encounter
--- OUTSIDE RECORDS SUMMARY | 2022-01-29 01:36 | XMS_ITS | Encounter Summary ---
:1940 Author Organization [facility] Address [address] [place] [address] Care Team Providers Name Role Phone Nayan Hilton DO Primary Care Provider Reason for Visit (Routine) - Receiving Office to Obtain Authorization Specialty Diagnoses / Procedures Referred By Contact Refer red To Contact Procedures Unknown, Provider, CT OUTSIDE IMAGES BODY Phone: Referral ID Status Reason Start Expiration Visits Visits Date Date Requested Authorized [id number] Receiving Office 11/07/2019 1 1 to Obtain Authorization Encounter Details Date Type Department Care Team Description 10/30/2019 Hospital Encounter [facility] Radiology - Main [place] [address] [place] [address] Social History Tobacco Use Types Packs/Day Years [...] on filedocumented in this encounter Care Teams Finishing Operator Relationship Specialty Start Date End Date Nayan Hilton DO PCP - General 06/17/17 04/01/20 documented as of this encounter
--- OUTSIDE RECORDS SUMMARY | 2022-01-29 01:36 | XMS_ITS | Encounter Summary ---
:1940 Author Organization [facility] Address [address] [place] [address] Care Team Providers Name Role Phone Nayan Hilton Primary Care Provider Reason for Visit Reason Comments Advice Only Colon cancer involving the u terus Encounter Details Date Type Department Care Team Description 11/19/2019 Initial consult [facility] Renaet Loomis cancer, Gynecologic Oncology MD Kylah MSc ascending ([facility]) - [facility] [address] [place] (Primary Dx) [address] [place], [place] [phone] [place] [address] Pav[address], [address] [place] [phone] (Wo rk) Social History Tobacco [...] scans and colonoscopy up at [facility]. 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 Works for [employer], [employer]. PSH: Surgical history: Tonsillectomy Family history: Mother [...] colon documented in this encounter Care Teams Dairy Scientist Relationship Specialty Start Date End Date Nayan Hilton DO PCP - General 06/17/17 04/01/20 documented as of this encounter
--- OUTSIDE RECORDS SUMMARY | 2022-01-29 01:36 | XMS_ITS | Encounter Summary ---
:1940 Author Organization [facility] Address [address] [place] [address] Care Team Providers Name Role Phone YobaniNayan Pedro HARRISON Primary Care Provider Manuel Isaacs MD Primary Care Provider Encounter Details Date Type Department Care Team Description 12/20/2019 Lab Requisition [facility] Outr Resulting Lab, Pathology & Laboratory Provider [facility] [address] [place], [place] [phone] Social History Tobacco Use Types Packs/Day Years [...] Prealbumin 19 (L) 20 - 40 mg/dL [facility] SERVICES Specimen Blood - Venous blood (substance) Performing Organization Address City/State/ZIP Code Phon e Number [facility] [address] [place] [address] SERVICES documented in this encounter Visit Diagnoses Not on filedocumented in this encounter Care Teams Mix Crusher Operator Relationship Specialty Start Date End Date Nayan Hilton DO PCP - General 06/17/17 04/01/20 Manuel Isaacs MD PCP - General 04/02/[address] [place] [phone] documented as of this encounter
--- OUTSIDE RECORDS SUMMARY | 2022-01-29 01:36 | XMS_ITS | Encounter Summary ---
:1940 Author Organization [facility] Address [address] [place] [address] Care Team Providers Name Role Phone Manuel Isaacs MD Primary Care Provider Encounter Details Date Type Department Care Team Description 11/06/2021 Lab Requisition [facility] Outr Resulting Lab, Pathology & Laboratory Provider [facility] [address] [place] [address] Social History Tobacco Use Types [...] (11/06/2021 9:55 EDT) CEA 3.8 See Note [facility] Comment: ng/mL [...] malignant disease. ?? Assayed on Siemens [employer] taur XPT using chemiluminescent technology. ??Values obtained by different assay methods cannot be used interchangeably. Specimen Blood - Venous blood (substance) Performing Organization Address City/State/ZIP Code Phon e Number [facility] [address] [place] [address] SERVICES documented in this encounter Visit Diagnoses Not on filedocumented in this encounter Care Teams Herbologist Relationship Specialty Start Date End Date Manuel Isaacs MD PCP - General 04/02/[address] [place] [phone] documented as of this encounter
--- OUTSIDE RECORDS SUMMARY | 2022-01-29 01:36 | XMS_ITS | Encounter Summary ---
:1940 Author Organization [facility] Address [address] [place] [address] Care Team Providers Name Role Phone Nayan Hilton Primary Care Provider Reason for Visit Reason Onset Date Comments Other 11/20/2019 Encounter Details Date Type Department Care Team Description 11/20/2019 Telephone [facility] Valerie Sams MD Other Surgery - [facility] [address] [address] Pavilion, [place] [phone] (Wo rk) Social History [...] like to have COVID testing done in [place]. 11/20: I have spoken again with Joy. I have tried to explain that an ostomy is the best option in regards to her surgery. I did advise her she was welcome to persue a second opinion perhaps at [facility] She is upset, crying, still does not understand the complexity of her surgery. I have asked her totake a couple of days and talk it over with her and call me back with a decision. I will also reach out to Dr Isaacs's office for their help coordinating COVID testing at [facility] if she agress to proceed with surgery and to help support Joy with her decision. elephone Encounter - Jennifer Arias - 11/20/2019 1150 EDT Pt calling with questions for the nurse/ please return call documented in this encounter Plan of Treatment Not on filedocumented as of this encounter Visit Diagnoses Not on filedocumented in this encounter Care Teams Gutter Hanger Relationship Specialty Start Date End Date Nayan Hilton DO PCP - General 06/17/17 04/01/20 documented as of this encounter
--- OUTSIDE RECORDS SUMMARY | 2022-01-29 01:36 | XMS_ITS | Encounter Summary ---
:1940 Author Organization [facility] Address [address] [place] [address] Care Team Providers Name Role Phone Manuel Isaacs MD Primary Care Provider Encounter Details Date Type Department Care Team Description 04/02/2020 Results Only Imaging [facility] Alexy Cherry, [facility] Rad[facility] Resul ts [address] [facility] [address] [place] [address] [place], [place] [phone] Social History Tobacco Use Types Packs/Day Years [...] THIGH (04/02/2020 9:39 EST) Specimen Narrative [facility] - 04/02/2020 9:39 EST ? EXAM: PET/CT SCAN/PET/CT SKULL BASE TO ID EX. D/ ([id number]) ? CLINICAL INFORMATION: ? C18.9 COLON CANCER ? STAGING ? PET/CT SKULL BASE TO MID-THIGH ? Signs and Symptoms/Comments: ??C1 8.9 COLON CANCER, STAGING. Per ? patient, history of colon surgery in 2019. ? Comparison: Outside CT chest abdo men pelvis on 01/23/2020 and ? 10/30/2019 (from [facility]). ? Technique: 90 minutes following t he IV injection of 16.2 mCi of ? W91-jnjegkokbmbjbancpt, PET imagi ng was performed from the [...] evidence o f osseous metastatic disease. ? Fabric Sourcer measurements as fo llows: ? * ??Background [...] CC: ? Transcribed Date/Time: 04/02/2020 (0939) ? All Source Intelligence Technician: ? Printed Date/Time: 04/02/2020 (09 39) ? PAGE 3 ? Juliette d Report ? Procedure Note Bashir Tran MD - 04/02/2020 EXAM: PET/CT SCAN/PET/CT SKULL BASE TO ID EX. D/ ([id number]) CLINICAL INFORMATION: C18.9 COLON CANCER STAGING PET/CT SKULL BASE TO MID-THIGH Signs and Symptoms/Comments: C18.9 COLO N CANCER, STAGING. Per patient, history of colon surgery in . Comparison: Outside CT chest abdomen pe lvis on 01/23/2020 and 10/30/2019 (from [facility]) . Technique: 90 minutes following the IV injection of 16.2 mCi of V50-srjrhjgshntjxjeuiu, PET imaging was performed from the skull [...] PET evidence of osse ous metastatic disease. Fabric Sourcer measurements as follows: * Background liver uptake: [...] Bashir Tran MD CC: Transcribed Date/Time: 04/02/2020 (8351 ) All Source Intelligence Technician: Printed Date/Time: 04/02/2020 (3613) PAGE 3 Signed Report Performing Organization Address City/State/ZIP Code Phon e Number [facility] documented in this encounter Visit Diagnoses Not on filedocumented in this encounter Care Teams Repeater Operator Relationship Specialty Start Date End Date Manuel Isaacs MD PCP - General 04/02/[address] [place] [phone] documented as of this encounter
--- OUTSIDE RECORDS SUMMARY | 2022-01-29 01:36 | XMS_ITS | Encounter Summary ---
:1940 Author Organization [facility] Address [address] [place] [address] Care Team Providers Name Role Phone Manuel Isaacs MD Primary Care Provider Encounter Details Date Type Department Care Team Description 07/24/2021 Lab Requisition [facility] Outr Resulting Lab, Pathology & Laboratory Provider [facility] [address] [place], [place] [phone] Social History Tobacco Use Types Packs/Day Years [...] (07/24/2021 8:30 EDT) CEA 4.2 See Note [facility] Comment: ng/mL LABORATORY % Distribution [...] malignant disease. ?? Assayed on Siemens ADVIA [employer] taur XPT using chemiluminescent technology. ??Values obtained by different assay methods cannot be used interchangeably. Specimen Blood - Venous blood (substance) Performing Organization Address City/State/ZIP Code Phon e Number [facility] [address] [place] [address] SERVICES documented in this encounter Visit Diagnoses Not on filedocumented in this encounter Care Teams Pest Control Supervisor Relationship Specialty Start Date End Date Manuel Isaacs MD PCP - General 04/02/[address] [place] [phone] documented as of this encounter
--- OUTSIDE RECORDS SUMMARY | 2022-01-29 01:36 | XMS_ITS | Encounter Summary ---
:1940 Author Organization [facility] Address [address] [place] [address] Care Team Providers Name Role Phone Nayan Hilton Primary Care Provider Reason for Visit Reason Onset Date Comments Coordination Of Care 11/22/2019 Encounter Details Date Type Department Care Team Description 11/22/2019 Telephone [facility] Sophie Benson RN Coordination Of Care General Surgery - [phone] [place] [phone] Social History Tobacco Use Types Packs/Day Years [...] on RN line at PCP office in [place]. I have spoken with Mohamud from [facility]. I have relayed Joy's reluctance to accept she might have an ostomy and have asked her to relay this to Dr Isaacs. I have also asked them to help us arrange COVID testing as Joy would like it done in [place]. documented in this encounter Plan of Treatment Not on filedocumented as of this encounter Visit Diagnoses Not on filedocumented in this encounter Care Teams Process Stripper Relationship Specialty Start Date End Date Nayan Hilton DO PCP - General 06/17/17 04/01/20 documented as of this encounter
--- OUTSIDE RECORDS SUMMARY | 2022-01-29 01:36 | XMS_ITS | Encounter Summary ---
:[address] [facility] Address [address] [place] [address] Care Team Providers Name Role Phone Nayan Hilton Primary Care Provider Reason for Referral Laboratory Services (Routine) - New Request Specialty Diagnoses / Procedures Referred By Contact Refer red To Contact Diagnoses Colovesical fistula Bashir Kapadia MD Procedures BACTERIAL CULTURE, URINE [address] [phone] Referral ID Status Reason Start Date Expiration Date Visits V isits Requested Authorized [id number] New Request 11/14/2019 1 1 Reason for Visit Reason Comments New Patient Visit Consult (Urgent) - Authorization Not Required Specialty Diagnoses / Procedures Referred By Contact Refer dontae To Contact Urology Diagnoses Vesicocolic fistula Bashir Kapadia MD [address] [place] [phone] Phone: Fax: Referral ID Status Reason Start Expiration Visits Visits Date Date Requested Authorized [id number] Authorization Not 1 1 Required Encounter Details Date Type Department Care Team Description 11/14/2019 Telemedicine [place] Mehdi Kapadia MD Colovesical fistula Urology - Main [address] [place] (Primary Dx ) [address] [place], [place] [phone] [place] [address] [place] [phone] (Wo rk) Social History Tobacco Use Types [...] with colon cancer. 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 She initially was slated to undergo surgery thisweek at [facility] but ultimately the decision was made to transfer care to [facility]. She underwent an office cystoscopy [...] prepared with voice recognition software. Please excuse c programmer errors. Patient consented to a phone visit. [...] 11/14/2019 documented in this encounter Care Teams Green House Manager Relationship Specialty Start Date End Date Nayan Hilton DO PCP - General 06/17/17 04/01/20 documented as of this encounter
--- OUTSIDE RECORDS SUMMARY | 2022-01-29 01:36 | XMS_ITS | Encounter Summary ---
:1940 Author Organization [facility] Address [address] [place] [address] Care Team Providers Name Role Phone Manuel Isaacs MD Primary Care Provider Encounter Details Date Type Department Care Team Description 08/07/2021 Lab Requisition [facility] Outr Resulting Lab, Pathology & Laboratory Provider [facility] [address] [place] [address] Social History Tobacco Use Types [...] (08/07/2021 10:25 EDT) CEA 5.1 See Note [facility] Comment: ng/mL LABORATORY % Distribution of CEA [...] malignant disease. ?? Assayed on Siemens [employer] taur XPT using chemiluminescent technology. ??Values obtained by different assay methods cannot be used interchangeably. Specimen Blood - Venous blood (substance) Performing Organization Address City/State/ZIP Code Phon e Number [facility] [address] [place] [address] SERVICES documented in this encounter Visit Diagnoses Not on filedocumented in this encounter Care Teams Repair Service Clerk Relationship Specialty Start Date End Date Manuel Isaacs MD PCP - General 04/02/[address] [place] [phone] documented as of this encounter
--- OUTSIDE RECORDS SUMMARY | 2022-01-29 01:36 | XMS_ITS | Encounter Summary ---
:1940 Author Organization [facility] Address [address] [place] [address] Care Team Providers Name Role Phone Manuel Isaacs MD Primary Care Provider Encounter Details Date Type Department Care Team Description 08/21/2021 Lab Requisition [facility] Outr Resulting Lab, Pathology & Laboratory Provider [facility] [address] [place] [address] Social History Tobacco Use Types [...] (08/21/2021 9:30 EDT) CEA 4.3 See Note [facility] Comment: ng/mL LABORATORY % Distribution [...] malignant disease. ?? Assayed on Siemens [employer]VIA [employer] taur XPT using chemiluminescent technology. ??Values obtained by different assay methods cannot be used interchangeably. Specimen Blood - Venous blood (substance) Performing Organization Address City/State/ZIP Code Phon e Number [facility] [address] [place] [address] SERVICES documented in this encounter Visit Diagnoses Not on filedocumented in this encounter Care Teams Molder Trimmer Relationship Specialty Start Date End Date Manuel Isaacs MD PCP - General 04/02/[address] [place] [phone] documented as of this encounter
--- OUTSIDE RECORDS SUMMARY | 2022-01-29 01:36 | XMS_ITS | Encounter Summary ---
:1940 Author Organization [facility] Address [address] [place] [address] Care Team Providers Name Role Phone Nayan Hilton Primary Care Provider Reason for Visit Reason Comments New Patient Visit Flex/sig Colon Cancer Encounter Details Date Type Department Care Team Description 11/19/2019 Office Visit [facility] Valerie Zamora MD Malignant neoplasm of General Surgery - [address] [place] [address] ([facility]) (Primary [address] [facility], Main Dx) [place] [address] Pavilion, [place] [phone] (Wo rk) Social History Tobacco Use Types [...] ostomy. I will send the prescriptions to [facility] in [place]. I have also encouraged Joy to increase her ambulation and increase her caloric and protein needs starting immediately. I was supervised by Dr Zamora who was present and immediately available in the office suite. JAVON BENSON RN 11/19/2019 14:58 Valerie Acuna MD - 11/19/2019 0927 EDT Colorectal Surgery Chief Complaint: Cecum/sigmoid cancer [...] underwent CT scans and colonoscopy up at [facility]. Colonoscopy with invasive adenocarcinoma of the [...] no alcohol use, never smoker. Works for [employer], [employer] and [employer] [facility] scan of the chest abdomen and [...] confirmed prior to the procedure. With a office inspector present the patient was placed in the [...] (ABNORMAL) COMPLETE BLOOD COUNT (11/19/2019 12:36 EDT) [facility] WBC 9.83 4.00 - 12.40 K/cmm [facility] RBC 3.57 (L) 3.86 - 5.04 M/cmm [facility] Hemoglobin 8.6 (L) 11.6 - 15.2 gm/dL [facility] HCT 29.4 (L) 34.9 - 44.4 % [facility] MCV 82 81 - 98 fl [facility] MCH 24.1 (L) 26.7 - 33.3 pg [facility] Hypochromia 1+ [facility] MCHC 29.3 (L) 32.1 - 35.9 gm/dL [facility] RDW-CV 17.0 (H) <14.7 % [facility] RDW-SD 49.7 <50.4 fl [facility] Anisocytosis 1+ [facility] PLT 626 (H) 141 - 377 K/cmm [facility] MPV 9.1 (L) 9.5 - 12.7 fl [facility] Specimen Blood - Venous blood (substance) Performing Organization Address City/[facility]/ZIP Code Phon e Number [facility] [address] [place] [address] SERVICES CREATININE (11/19/2019 12:36 EDT) Creatinine 0.81 0.52 - 1.04 [facility] mg/dL LABORATORY SERVICES eGFR 70Comment: eGFR >60 [facility] calculated using mL/min/1.73m2 LABORATORY SERVICES CKD-EPI equation for non- Americans. Multiply eGFR by 1.16 for patients. Specimen Blood - Venous blood (substance) Performing Organization Address City/[facility]/ZIP Code Phon e Number [facility] [address] [place] [address] SERVICES BUN (11/19/2019 12:36 EDT) Pathologist Sig nature BUN 18 10 - 26 mg/dL [facility] Specimen Blood - Venous blood (substance) Performing Organization Address City/State/ZIP Code Phon e Number [facility] [address] [place] [address] SERVICES (ABNORMAL) ELECTROLYTES (11/19/2019 12:36 EDT) Pathologist Sig nature Sodium 132 (L) 136 - 145 mEq/L [facility] Potassium 4.3 3.5 - 5.0 mEq/L [facility] Chloride 97 96 - 110 mEq/L [facility] ORY SERVICES CO2 Total 25 22 - 32 mEq/L [facility] Specimen Blood - Venous blood (substance) Performing Organization Address City/State/ZIP Code Phon e Number [facility] [address] [place] [address] SERVICES PRE-OP BLOOD BANK DRAW (11/19/2019 12:36 EDT) Pathologist Sig nature Hold BB Specimen valid up to [facility] 30 days from BLOOD BANK collection date. Specimen Blood - Venous blood (substance) Performing Organization Address City/[facility]/ZIP Code Phon e Number [facility] BLOOD BANK [address] [place] [address] documented in this encounter Visit Diagnoses Diagnosis [...] 11/19/2019 documented in this encounter Care Teams Crew Truck Driver Relationship Specialty Start Date End Date Nayan Hilton DO PCP - General 06/17/17 04/01/20 documented as of this encounter
--- OUTSIDE RECORDS SUMMARY | 2022-01-29 01:36 | XMS_ITS | Encounter Summary ---
:1940 Author Organization [facility] Address [address] [place] [address] Care Team Providers Name Role Phone Manuel Isaacs MD Primary Care Provider Encounter Details Date Type Department Care Team Description 06/26/2021 Lab Requisition [facility] Outr Resulting Lab, Pathology & Laboratory Provider [facility] [address] [place] [address] Social History Tobacco Use Types [...] (06/26/2021 8:50 EDT) CEA 8.2 See Note [facility] Comment: ng/mL LABORATORY % Distribution of [...] malignant disease. ?? Assayed on Siemens ADVIA [employer] software taur XPT using chemiluminescent technology. ??Values obtained by different assay methods cannot be used interchangeably. Specimen Blood - Venous blood (substance) Performing Organization Address City/State/ZIP Code Phon e Number [facility] [address] [place] [address] SERVICES documented in this encounter Visit Diagnoses Not on filedocumented in this encounter Care Teams Accounting Auditor Relationship Specialty Start Date End Date Manuel Isaacs MD PCP - General 04/02/[address] [place] [phone] documented as of this encounter
--- OUTSIDE RECORDS SUMMARY | 2022-01-29 01:36 | XMS_ITS | Encounter Summary ---
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 CENTER - Extensive suture granulomas and reactive changes. LABORATORY SERVICES Attestation There was significant [facility] Electr onically resident/fellow CENTER signed by Salome clancy involvement in the LABORATORY MD Renee on diagnostic evaluation SERVICES 020 at 0916 of this case. By the signature below, the attending physician certifies that they have personally conducted a gross and/or microscopic examination of the described specimens and rendered or confirmed the above diagnosis. Clinical History None listed [facility] Gross Description A. [facility] Received in formalin denise d with [...] bowel remained constant throughout averaging 1.0 cm. Trimmer Operator sections are submitted as follows: BLOCK MORALES A1- section to include skin and small bowel, longitudi nal A2-A3- serial section, bisected A4-A5- serial section, bisected Jarrett Paredes MD 12/28/2019 16:10 Resident/Fellow: Jarrett Paredes MD [facility] Performing Lab [facility] Scanned Images [facility] Specimen Tissue - Entire sigmoid colon (body stru cture) Performing Organization Address City/State/ZIP Code Phon e Number [facility] [address] [place] [address] SERVICES documented in this encounter Visit Diagnoses Diagnosis Encounter for other general examination documented in this encounter Care Teams Spice Room Worker Relationship Specialty Start Date End Date Nayan Hilton DO PCP - General 06/17/17 04/01/20 Manuel Isaacs MD PCP - General 04/02/[address] [place] [phone] documented as of this encounter
--- OUTSIDE RECORDS SUMMARY | 2022-01-29 01:36 | XMS_ITS | Encounter Summary ---
:1940 Author Organization [facility] Address [address] [place] [address] Care Team Providers Name Role Phone Manuel Isaacs MD Primary Care Provider Encounter Details Date Type Department Care Team Description 06/12/2021 Lab Requisition [facility] Outr Resulting Lab, Pathology & Laboratory Provider [facility] [address] [place], [place] [id number] Social History Tobacco Use Types Packs/Day Years [...] (06/12/2021 8:05 EST) CEA 3.8 See Note [facility] Comment: ng/mL LABORATORY % Distribution of [...] Organization Address City/State/ZIP Code Phon e Number [facility] [address] [place] [address] SERVICES documented in this encounter Visit Diagnoses Not on filedocumented in this encounter Care Teams School Aide Relationship Specialty Start Date End Date Manuel Isaacs MD PCP - General 04/02/[address] [place] [phone] documented as of this encounter
--- OUTSIDE RECORDS SUMMARY | 2022-01-29 01:36 | XMS_ITS | Encounter Summary ---
:1940 Author Organization [facility] Address [address] [place] [address] Care Team Providers Name Role Phone Manuel Isaacs MD Primary Care Provider Encounter Details Date Type Department Care Team Description 01/01/2022 Lab Requisition [facility] Outr Resulting Lab, Pathology & Laboratory Provider [facility] [address] [place], [place] [id number] Social History Tobacco Use Types Packs/Day Years [...] . documented in this encounter Results CEA (01/01/2022 8:00 EDT) CEA 4.2 See Note [facility] Comment: ng/mL LABORATORY % Distribution [...] malignant disease. ?? Assayed on Siemens ADVIA [employer] taur XPT using chemiluminescent technology. ??Values obtained by different assay methods cannot be used interchangeably. Specimen Blood - Venous blood (substance) Performing Organization Address City/State/ZIP Code Phon e Number [facility] [address] [place] [address] SERVICES documented in this encounter Visit Diagnoses Not on filedocumented in this encounter Care Teams Dye Padder Operator Relationship Specialty Start Date End Date Manuel Isaacs MD PCP - General 04/02/[address] [place] [phone] documented as of this encounter
--- OUTSIDE RECORDS SUMMARY | 2022-01-29 01:36 | XMS_ITS | Encounter Summary ---
:1940 Author Organization [facility] Address [address] [place] [address] Care Team Providers Name Role Phone Nayan [...] filedocumented in this encounter Care Teams Tube Sizer And Cutter Operator Relationship Specialty Start Date End Date Nayan Hilton DO PCP - General 06/17/17 04/01/20 documented as of this encounter
--- OUTSIDE RECORDS SUMMARY | 2022-01-29 01:36 | XMS_ITS | Encounter Summary ---
:1940 Author Organization [facility] Address [address] [place] [address] Care Team Providers Name Role Phone Manuel Isaacs MD Primary Care Provider Encounter Details Date Type Department Care Team Description 04/22/2021 Lab Requisition [facility] Outr Resulting Lab, Pathology & Laboratory Provider [facility] [address] [place] [address] Social History Tobacco Use [...] (04/22/2021 9:44 EST) CEA 3.6 See Note [facility] Comment: ng/mL LABORATORY % Distribution of [...] Organization Address City/State/ZIP Code Phon e Number [facility] [address] [place] [address] SERVICES documented in this encounter Visit Diagnoses Not on filedocumented in this encounter Care Teams Business Excellence Leader Relationship Specialty Start Date End Date Manuel Isaacs MD PCP - General 04/02/[address] [place] [phone] documented as of this encounter
--- OUTSIDE RECORDS SUMMARY | 2022-01-29 01:36 | XMS_ITS | Encounter Summary ---
:1940 Author Organization [facility] Address [address] [place] [address] Care Team Providers Name Role Phone Manuel Isaacs MD Primary Care Provider Encounter Details Date Type Department Care Team Description 08/28/2021 Lab Requisition [facility] Outr Resulting Lab, Pathology & Laboratory Provider [facility] [address] [place] [address] Social History Tobacco Use Types [...] (08/28/2021 6:55 EDT) CEA 3.[address] [facility] Comment: ng/mL LABORATORY % Distribution of [...] malignant disease. ?? Assayed on Siemens ADVIA [employer] taur XPT using chemiluminescent technology. ??Values obtained by different assay methods cannot be used interchangeably. Specimen Blood - Venous blood (substance) Performing Organization Address City/State/ZIP Code Phon e Number [facility] [address] [place] [address] SERVICES documented in this encounter Visit Diagnoses Not on filedocumented in this encounter Care Teams Printed Circuit Boards Stripper Etcher Relationship Specialty Start Date End Date Manuel Isaacs MD PCP - General 04/02/[address] [place] [phone] documented as of this encounter
--- OUTSIDE RECORDS SUMMARY | 2022-01-29 01:36 | XMS_ITS | Encounter Summary ---
:1940 Author Organization [facility] Address [address] [place] [address] Care Team Providers Name Role Phone Manuel Isaacs MD Primary Care Provider Encounter Details Date Type Department Care Team Description 05/20/2021 Lab Requisition [facility] Outr Resulting Lab, Pathology & Laboratory Provider [facility] [address] [place], [place] [id number] Social History Tobacco Use Types Packs/Day Years [...] (05/20/2021 8:58 EST) CEA 2.9 See Note [facility] Comment: ng/mL LABORATORY % Distribution of [...] Organization Address City/State/ZIP Code Phon e Number [facility] [address] [place] [address] SERVICES documented in this encounter Visit Diagnoses Not on filedocumented in this encounter Care Teams Plant Engineer Relationship Specialty Start Date End Date Manuel Isaacs MD PCP - General 04/02/[address] [place] [phone] documented as of this encounter
--- OUTSIDE RECORDS SUMMARY | 2022-01-29 01:37 | XMS_ITS | Encounter Summary ---
:1940 Author Organization [facility] Address [address] [place] [address] Care Team Providers Name Role Phone Nayan Hilton DO Primary Care Provider Reason for Visit (Routine) - Receiving Office to Obtain Authorization Specialty Diagnoses / Procedures Referred By Contact Refer red To Contact Procedures Unknown, Provider, CT OUTSIDE IMAGES BODY Phone: Referral ID Status Reason Start Expiration Visits Visits Date Date Requested Authorized [id number] Receiving Office 11/07/2019 1 1 to Obtain Authorization Encounter Details Date Type Department Care Team Description 10/03/[address] [facility] Radiology - Main [place] [address] [place] [address] Social History Tobacco Use Types Packs/Day Years [...] filedocumented in this encounter Care Teams Assembler Radio And Electrical Relationship Specialty Start Date End Date Nayan Hilton DO PCP - General 06/17/17 04/01/20 documented as of this encounter
--- OUTSIDE RECORDS SUMMARY | 2022-01-29 01:37 | XMS_ITS | Encounter Summary ---
:1940 Author Organization [facility] Address [address] [place] [address] Care Team Providers Name Role Phone Unavailable Primary Care Provider Unavailable Encounter Details Date Type Department Care Team Description 11/23/2007 Before PRISM Converted [facility] Unknown, Visit (Maple) Adult Primary Care - Provider, Merrill Palencia [place] [phone] [address] [facility] (Work) [place] [address] Social History Tobacco Use Types Packs/Day Years [...] Phon e Number [facility] [address] [place] [address] SERVICES [facility] [address] [place] [address] documented in this encounter Visit Diagnoses Not on filedocumented in this encounter
--- OUTSIDE RECORDS SUMMARY | 2022-01-29 01:37 | XMS_ITS | Encounter Summary ---
:1940 Author Organization [facility] Address [address] [place] [address] Care Team Providers Name Role Phone Fabiano Aranda MD Primary Care Provider Reason for Visit Reason Onset Date Comments Results 03/16/2010 Encounter Details Date Type Department Care Team Description 03/16/2010 Telephone [facility] Lino Ashton MS Results Hematology & Oncology - [address] [place] [address] [address] [facility] [place] [address] [phone] Social History Tobacco Use Types Packs/Day Years [...] on filedocumented in this encounter Care Teams Supercalender Operator Helper Relationship Specialty Start Date End Date Fabiano Aranda MD PCP - General 02/20/10 09/02/[address] [place] [address] [address] [place] [phone] documented as of this encounter
--- OUTSIDE RECORDS SUMMARY | 2022-01-29 01:37 | XMS_ITS | Encounter Summary ---
:1940 Author Organization [facility] Address [address] [place] [address] Care Team Providers Name Role Phone Nayan Hilton DO Primary Care Provider Reason for Visit (Routine) - Receiving Office to Obtain Authorization Specialty Diagnoses / Procedures Referred By Contact Refer red To Contact Procedures Unknown, Provider, [place] OUTSIDE IMAGES BODY Phone: Referral ID Status Reason Start Expiration Visits Visits Date Date Requested Authorized [id number] Receiving Office 11/07/2019 1 1 to Obtain Authorization Encounter Details Date Type Department Care Team Description 10/23/2019 Hospital Encounter [facility] Radiology - Main [place] [address] [place] [address] Social History Tobacco Use Types Packs/Day Years [...] filedocumented in this encounter Care Teams Food Preparer Relationship Specialty Start Date End Date Nayan Hilton DO PCP - General 06/17/17 04/01/20 documented as of this encounter
--- OUTSIDE RECORDS SUMMARY | 2022-01-29 01:37 | XMS_ITS | Encounter Summary ---
:1940 Author Organization [facility] Address [address] [place] [address] Care Team Providers Name Role Phone Jodi Camp MD Primary Care Provider Encounter Details Date Type Department Care Team Description 10/22/2015 Hospital Encounter [facility] Preston MD [facility] [address] [facility] [address] [place] [phone] Social History Tobacco Use Types Packs/Day Years [...] Code Departure Means Destination Home or Self [facility] documented in this encounter Plan of Treatment Not on filedocumented as of this encounter Visit Diagnoses Not on filedocumented in this encounter Care Teams Signal Supervisor Relationship Specialty Start Date End Date Jodi Camp MD PCP - General 09/03/15 12/22/[address] [address] documented as of this encounter
--- OUTSIDE RECORDS SUMMARY | 2022-01-29 01:37 | XMS_ITS | Encounter Summary ---
:1940 Author Organization [facility] Address [address] [place] [address] Care Team Providers Name Role Phone Unavailable Primary Care Provider Unavailable Encounter Details Date Type Department Care Team Description 05/08/2004 Results Only [facility] - Kristen flowers, Provider, conversion [address] [facility] [place], [place] [address] [phone] Social History Tobacco Use Types Packs/Day Years [...] City/State/ZIP Code Phon e Number [facility] [address] [place] [address] SERVICES [facility] [address] [place] [address] documented in this encounter Visit Diagnoses Not on filedocumented in this encounter
--- OUTSIDE RECORDS SUMMARY | 2022-01-29 01:37 | XMS_ITS | Encounter Summary ---
:1940 Author Organization [facility] Address [address] [place] [address] Care Team Providers Name Role Phone Jodi Camp MD Primary Care Provider Reason for Visit Reason Onset Date Comments Appointment Related 09/10/2015 Call patient with a follow up visit with trauma, She is s/p treatment for presumed perforated appendicitis Encounter Details Date Type Department Care Team Description 09/10/2015 Telephone [facility] Jessica Darby tment Related Acute Care Surgery - MD Pedro (Call patient with a Main [place] [address] [facility] [address] [facility], She is s/p [place], [place] [phone] [place] [address] treatment for presumed [phone] perforated appe ndicitis) Social History Tobacco Use [...] on filedocumented in this encounter Care Teams Design Studio Consultant Relationship Specialty Start Date End Date Jodi Camp MD PCP - General 09/03/15 12/22/15 [facility] [address] [address] documented as of this encounter
--- OUTSIDE RECORDS SUMMARY | 2022-01-29 01:37 | XMS_ITS | Encounter Summary ---
:1940 Author Organization [facility] Address [address] [place] [address] Care Team Providers Name Role Phone Jodi Camp MD Primary Care Provider Encounter Details Date Type Department Care Team Description 12/03/2015 Results Only [facility]- Erica Hendrix MD [phone] [address] [place] [address] (Wo rk) Social History Tobacco Use Types [...] Anatomical Region Laterality Modality Other Specimen Narrative [facility]MAIN [facility] MPUS - 12/23/2015 [...] e Number [facility] documented in this encounter Visit Diagnoses Not on filedocumented in this encounter Care Teams Head Turning Machine Operator Relationship Specialty Start Date End Date Jodi Camp MD PCP - General 09/03/15 12/22/[address] [address] documented as of this encounter
--- OUTSIDE RECORDS SUMMARY | 2022-01-29 01:37 | XMS_ITS | Encounter Summary ---
:1940 Author Organization [facility] Address [address] [place] [address] Care Team Providers Name Role Phone Dacia Hendrix MD Primary Care Provider [phone] Encounter Details Date Type Department Care Team Description 06/21/2016 Hospital Encounter [facility] - Adele Ureña [facility] MD Claudine [phone] [address] [facility] [place] [address] (Wo rk) Social History Tobacco [...] Code Departure Means Destination Home or Self Correction documented in this encounter Plan of Treatment Not on filedocumented as of this encounter Visit Diagnoses Not on filedocumented in this encounter Care Teams Director Economic Relationship Specialty Start Date End Date Dacia Hendrix MD PCP - General 12/23/15 06/16/[address] [place] [address] documented as of this encounter
--- OUTSIDE RECORDS SUMMARY | 2022-01-29 01:37 | XMS_ITS | Encounter Summary ---
:1940 Author Organization [facility] Address [address] [place] [address] Care Team Providers Name Role Phone Unavailable Primary Care Provider Unavailable Encounter Details Date Type Department Care Team Description 11/21/2007 Before PRISM Converted [facility] Unknown, Visit ([place]) Adult Primary Care - Provider, Merrill Palencia Drasco [phone] 1 [facility] (Work) [place] [address] Social History Tobacco Use Types Packs/Day Years [...] ALL EN ? LAB Reports generated via Octapoly interface contain original data; ? however they are lacking the format of the original report. ? Caution should be taken when reading/interpreting unformatted reports. ? Name: ? ADRIANAANGEL JOY Momin ? Accession #: ? [id number] ? : ? 1940 (Age: 67) ??F [...] Organization Address City/State/ZIP Code Phon e Number [facility] [address] [place] [address] SERVICES [facility] [address] [place] [address] documented in this encounter Visit Diagnoses Not on filedocumented in this encounter
--- OUTSIDE RECORDS SUMMARY | 2022-01-29 01:37 | XMS_ITS | Encounter Summary ---
:1940 Author Organization [facility] Address [address] [place] [address] Care Team Providers Name Role Phone Fabiano Aranda MD Primary Care Provider Encounter Details Date Type Department Care Team Description 02/23/[address] [facility] Steffen Severino Family history of - [facility] MD [place] genetic disease 111 [facility] [address] [place], [place] [id number] [place] [address] Pavili, Level [address] [place] [address] Social History Tobacco Use Types [...] Specimen Blood [facility] Specimen ID [id number] [facility] Order Date 24 Feb [...] based on GenBank ? accession number; [id number]. ? 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 The [...] donors will interfere ? with testing. Call [facility] for ? instructions for testing pat ients who have received a bone ? marrow transplant. ? This test was developed and its performance characteristics ? determined by Laboratory Med icine and Pathology, [facility]. This test has not be en cleared or approved by the ? U.S. Food and Drug Administr ation. ? Reviewed By PANDA Silva MD ? LAB Release Date 09 Mar 2010 10:28 [facility] Performed or Referred by: [facility] Dpt of Lab Med and Path, [address] ?? , [place] [address], Lab Dir: Myles gandhi III, MD Specimen Blood specimen (specimen) Performing Organization Address City/State/ZIP Code Phon e Number [facility] [address] [place] [address] SERVICES [facility] [address] [place] [address] documented in this encounter Visit Diagnoses Diagnosis Family history of genetic disease Family history of other condition documented in this encounter Care Teams Functional Tester Typewriters Relationship Specialty Start Date End Date Fabiano Aranda MD PCP - General 02/20/10 09/02/[address] [place] [address] [address] [place] [address] documented as of this encounter
--- OUTSIDE RECORDS SUMMARY | 2022-01-29 01:37 | XMS_ITS | Encounter Summary ---
:1940 Author Organization [facility] Address [address] [place] [address] Care Team Providers Name Role Phone Nayan Hilton DO Primary Care Provider Reason for Visit (Routine) - Receiving Office to Obtain Authorization Specialty Diagnoses / Procedures Referred By Contact Refer red To Contact Procedures Unknown, Provider, MR OUTSIDE IMAGES MSK Phone: Referral ID Status Reason Start Expiration Visits Visits Date Date Requested Authorized [id number] Receiving Office 11/07/2019 1 1 to Obtain Authorization Encounter Details Date Type Department Care Team Description 10/29/2019 Hospital Encounter [facility] Radiology - Main [place] [address] [place] [address] Social History Tobacco Use Types Packs/Day Years [...] on filedocumented in this encounter Care Teams Onion Farmer Relationship Specialty Start Date End Date Nayan Hilton DO PCP - General 06/17/17 04/01/20 documented as of this encounter
--- OUTSIDE RECORDS SUMMARY | 2022-01-29 01:37 | XMS_ITS | Encounter Summary ---
:1940 Author Organization [facility] Address [address] [place] [address] Care Team Providers Name Role Phone Fabiano Aranda MD Primary Care Provider Reason for Visit Reason Comments Genetic Evaluation Encounter Details Date Type Department Care Team Description 02/23/2010 Office Visit [facility] Steffen Severino; Hematology & MD [place] Family history of polyps in the colon Oncology - [address] [address] [address], [place] [phone] (Wo rk) Social History Tobacco Use Types [...] Oncology Attending - Steffen Severino MD - [facility] Job ID: SM Doc ID: [id number] Ext Doc ID: [id number] cc: MS Fabiano Sin MD documented in this encounter Care Teams Account Analyst Relationship Specialty Start Date End Date Fabiano Aranda MD PCP - General 02/20/10 09/02/[address] [place] [address] [address] [place] [address] documented as of this encounter
--- OUTSIDE RECORDS SUMMARY | 2022-01-29 01:37 | XMS_ITS | Encounter Summary ---
:1940 Author Organization [facility] Address [address] [place] [address] Care Team Providers Name Role Phone Nayan Hilton Primary Care Provider Manuel Isaacs MD Primary Care Provider Encounter Details Date Type Department Care Team Description 10/01/2019 Lab Requisition [facility] Viviana Loera for other Pathology & [place] Medina MD general examination Laboratory Medicine [address] [place] [address] [address] [place], [place] [address] [place] [phone] Social History Tobacco Use Types Packs/Day Years [...] OF VULVA, RIGHT LABIA, 9 O'CLOCK, BIOPSY: [facility] Electronically - Interface dermatitis. See comment. [facility] signed by [facility] Merrill Johnson on SERVICES 10/04/2019 at 113 5 Attestation By the signature [facility] Electronica lly below, the attending CENTER [...] diagnosis. Diagnosis Comment Although there is no [facility] developed sclerosis, [place] the histologic LABORATORY features are SERVICES consistent with early lichen sclerosus. Microscopic Sections consist of a [facility] Description biopsy of [place] skin/mucosa. There is LABORATORY slight SERVICES hyperkeratosis. The epithelium varies to a mild degree in thickness. There is mild interface vacuolar change with occasional necrotic cells. There is a patchy lichenoid lymphocytic infiltrate. Collagen bundles in the superficial dermis are slightly thickened on deeper sections. Clinical History Lichen sclerosus [facility] SERVICES Gross Description A. Received in formalin labe lled with proper patient identification (initials H, I) and not otherwise specified is a shave biopsy of white focally pale pate skin (0.4 x 0.3 x 0.2 cm). The probable margin [facility] is inked blue. Specimen is submitted intact in A1. [facility] Dharmesh Yousif 10/02/2019 9:47 SERVICES Scanned Images [facility] SERVICES Specimen Tissue - Entire vulva (body structure) Performing Organization Address City/State/ZIP Code Phon e Number [facility] [address] [place] [address] SERVICES documented in this encounter Visit Diagnoses Diagnosis Encounter for other general examination documented in this encounter Care Teams Assembly Operator Relationship Specialty Start Date End Date Nayan Hilton DO PCP - General 06/17/17 04/01/20 Manuel Isaacs MD PCP - General 04/02/[address] [place] [phone] documented as of this encounter
--- OUTSIDE RECORDS SUMMARY | 2022-01-29 01:37 | XMS_ITS | Encounter Summary ---
:[address] [facility] Address [address] [place] [address] Care Team Providers Name Role Phone YobaniNayan Pedro HARRISON Primary Care Provider Manuel Isaacs MD Primary Care Provider Encounter Details Date Type Department Care Team Description 10/26/2019 Lab Requisition [facility] Outr Resulting Lab, Pathology & Laboratory Provider [facility] [address] [place], [place] [address] Social History Tobacco Use Types Packs/Day Years [...] (10/26/2019 8:16 EDT) CEA 1.5 See Note [facility] Comment: ng/mL LABORATORY % Distribution of [...] Organization Address City/State/ZIP Code Phon e Number [facility] [address] [place] [address] SERVICES documented in this encounter Visit Diagnoses Not on filedocumented in this encounter Care Teams Foundation Drill Operator Helper Relationship Specialty Start Date End Date Nayan Hilton DO PCP - General 06/17/17 04/01/20 Manuel Isaacs MD PCP - General 04/02/[address] [place] [phone] documented as of this encounter
--- OUTSIDE RECORDS SUMMARY | 2022-01-29 01:37 | XMS_ITS | Encounter Summary ---
:[address] 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 MEDICINE TECHNOLOGIST (Routine) - Closed Specialty Diagnoses / Procedures Referred By Contact Refer red To Contact Diagnoses Adnexal cyst Fluid in endometrial cavity Shantelle Ureña MD Procedures REPRODUCTION SPECIALIST US PELVIS TRANSVAGINAL [address] [place] [phone] Referral ID Status Reason Start Date Expiration Date Visits Requ ested Visits Authorized [id number] Closed 06/21/2016 1 1 Encounter Details Date Type Department Care Team Description 06/21/2016 Orders Only [facility] Shantelle Ureña Adnexa l cyst (Primary Dx); Women's Services - MD Claudine Fluid in endometrial cavity [facility] [address] [place], [place] [id number] [place] [address] [address] (Wo rk) Social History Tobacco [...] Name Priority Date/Time Associated Diagnosis Comme nts REPRODUCTION SPECIALIST US PELVIS Routine 06/20/2017 9:07 Adnexal cyst Results for this TRANSVAGINAL EDT Fluid in endometrial procedu re are in cavity the results section. documented in this encounter Results REPRODUCTION SPECIALIST US PELVIS TRANSVAGINAL (06/20/2017 9:07 EDT) Anatomical Region Laterality Modality Other Specimen Narrative [facility] RADIOLOGY MATERNAL FE CONOR MEDICINE ACC [...] free fluid visualized . Impression Transvaginal Pelvic [id number] 1. Stable intracavitary fluid with thin endometrium [...] free fluid visualized . Impression Transvaginal Pelvic [id number] 1. Stable intracavitary fluid with thin endometrium [...] Address City/State/ZIP Code Phon e Number [facility] MATERNAL MEDICINE ACC documented in this encounter Visit Diagnoses Diagnosis Adnexal cyst - Primary Other specified symptom associated with female genital organs Fluid in endometrial cavity Other specified disorders of uterus, not elsewhere classified documented in this encounter Care Teams Orange Picking Supervisor Relationship Specialty Start Date End Date Dacia Hendrix MD PCP - General 12/23/15 06/16/17 [address] [place] [address] documented as of this encounter
--- OUTSIDE RECORDS SUMMARY | 2022-01-29 01:37 | XMS_ITS | Encounter Summary ---
:1940 Author Organization [facility] Address [address] [place] [address] Care Team Providers Name Role Phone Nayan Hilton Primary Care Provider Reason for Visit Reason Comments Ultrasound Encounter Details Date Type Department Care Team Description 06/20/2017 Initial consult [facility] Shantelle Ureña Flu id in endometrial cavity (Primary Dx); Women's Services - MD Claudine Adnexal mass [facility] [id number] [place], [place] [address]ili, [place] [address] (Wo rk) Social History Tobacco [...] organs documented in this encounter Care Teams Mergers And Acquisitions Attorney Relationship Specialty Start Date End Date Nayan Hilton DO PCP - General 06/17/17 04/01/20 documented as of this encounter
--- OUTSIDE RECORDS SUMMARY | 2022-01-29 01:37 | XMS_ITS | Encounter Summary ---
:1940 Author Organization [facility] Address [address] [place] [address] Care Team Providers Name Role Phone Dacia Hendrix MD Primary Care Provider Encounter Details Date Type Department Care Team Description 12/23/2015 Hospital Encounter [facility] - Di richard, [facility] MD Dacia 111 [facility] [address] [place] [address] [place] [address] (Wo rk) Social History Tobacco Use Types [...] on filedocumented in this encounter Care Teams Financial Supervisor Relationship Specialty Start Date End Date Dacia Hendrix MD PCP - General 12/23/15 06/16/17 [address] [place] [address] documented as of this encounter
--- OUTSIDE RECORDS SUMMARY | 2022-01-29 01:37 | XMS_ITS | Encounter Summary ---
:1940 Author Organization [facility] Address [address] [place] [address] Care Team Providers Name Role Phone Jodi Camp MD Primary Care Provider Reason for Referral Referral (3 - 10 Business Days) - Closed Specialty Diagnoses / Procedures Referred By Contact Refer red To Contact Cardiology Diagnoses Elevated troponin Sepsis, due to unspecified organism Bianka Schmitt NP [facility] [address] [facility] [address] [place], [place] [id number] [place], [place] [address], [address] [place] [phone] Referral ID Status Reason Start Date Expiration Date Visits V isits Requested Authorized [id number] Closed Specialty 09/25/2015 1 1 Services Required [...] Power Ep5 Trauma/Crit Care MD Ceasar [address] [place] [address] [place] [address] Phone: Fax: Referral ID Status Reason Start Date Expiration Date Visits V isits Requested Authorized [id number] Closed Specialty 09/07/2015 1 1 Services Required Question Answer Reason for Request: f/dodd perforated appendicitis Scheduling Comments (optional ? 2 weeks describe specific scheduling needs if applicable): Expected Discharge Date (Inpatient Only): 09/07/2015 Reason for Visit Reason Comments Fever See tcall. Abd mass on CT Encounter Details Date Type Department Care Team Description 09/03/2015 - [facility] Ken Leggett MD 111 [facility], [facility] 1 [place] [phone] Sepsis, due to unspecified organism ([facility]) (Primary Dx); 09/07/2015 Encounter General Surgery Neida Fisher MD 111 [facility], [address] [place] [phone] Intra-abdominal infection; Unit Elevated troponin [address] [place], [place] [id number] Social History Tobacco Use Types Packs/Day Years [...] per chart review who was transferred to [facility] from in from an OSH on [...] Atrial septum: Echo contrast study showed no qgorj-gp-irsh atrial level ? shunt, at baseline or [...] attestation - Jessica Darby MD - 09/07/2015 7476 EDT Attending attestation statement: I saw and examined the patient and agree with the findings and plans as documented. Making appropriate recovery from perforated appendicitis and sepsis. Tolerating PO. Continue antibiotic therapy (total 7 days IV + PO). Likely discharge to home today. Lo??c MD [facility] Pager #[phone], Dalia Coleman MD - 09/06/2015 7623 EDT Acute Care Surgery Note Admit Date: [...] attestation - Jessica Darby MD - 09/06/2015 6699 EDT Attending attestation statement: I saw and examined the patient and agree with the findings and plans as documented. Making excellent clinical improvement. Afebrile, WBC downtrending. Abdominal exam is benign. Continue Augmentin to complete 7 days total antibiotic therapy. If continues to do well and remains afebrile, will likely be appropriate for discharge to home tomorrow. Lo??c MD [facility] Acute [facility] Surgery Pager #[phone] HospitalContreras figueroa MD - 09/05/2015 2419 EDT Echo without evidence of VSD. RV [...] attestation - Jessica Darby MD - 09/05/2015 9749 EDT Attending attestation statement: I saw and examined the patient and agree with the findings and plans as documented. Significantly clinically improved with resolution of septic shock. Abdomen is soft, ND, NTTP. Continue Zosyn for intra-abdominal infection. Remove Jade and CVC. ADAT, resume outpatient medications. Appropriate for transfer to [facility]. Lo??c MD [facility] Surgery Pager #[phone] Johnson RN - 09/05/2015 1511 EDT 0745: Assumed care of pt. Pt [...] POA &/or COLST IN PLACE: No CULTURAL, PRESYBETERIAN and/or LANGUAGE factors affecting health care/discharge planning: [...] have profound septic shock and transferred to [facility]. Pt states that 2 weeks [...] personally reviewed the last labs available in [facility] and any transfer labs OSH labs: [...] line and start levophed instead of dopamine [place] for BP monitoring Trend lactate Consult critical [...] Central Catheter Insertion First Catheter This Session toll mechanic: Patient Location: [place] [address] Preliminary Data: Insertion Date: 09/03/15 Insertion Time: 1648 First Drop Wire Aliner: Dr. Shahzad Anglin RN/MA Documenting Procedure: Hellen [...] Line Operators: Number Of Operators: 2 First Drop Wire Aliner's Title: Resident Tax Compliance Representative's Title: Resident Unless otherwise noted, there were no complications, no blood loss and no cultures obtained. Shahzad Robles MD 09/03/2015 17:04 arrKofi singh MD - 09/03/2015 1623 EDT Arterial Line Placement Indication: monitoring of blood pressure in setting of septic shock Procedure: right arterial line placement Drop Wire Aliner: Kofi Thornton MD, Shahzad Robles MD Description: [...] CV: No JVD, no HJD, RR, nondisplaced FL Normal S1 S2, no murmurs, rubs or [...] results found for: PHISTAT, PCOISTAT, POISTAT, POCTCO2, [id number], BEART, POCFIO2 LFT: Lab Results Component Value [...] lipid panel Joel Escalona MD 09/03/2015 22:20 Delivery Engineer Pager # [phone] Associated attestation - Bienvenido Payton MD - [...] have profound septic shock and transferred to [facility]. Pt states that 2 weeks [...] findings concerning for rupture appendix. Transferred to [facility] for further management Past Medical History [...] that she went on a trip to [place] August 27 and . Patient reports cold chills that began last evening and emesis that began in the middle of the night. Patient without cough, dysuria or cough. Patient without episodes of syncope or abdominal pain. Patient seen at [facility] prior to transfer where labs for [...] added TROPONIN 1 Final Number for problems 72318 (ED) Final ED/URGENT CARE ADD-ON Tests to be added TSH Final Number for problems 95930 (ED) Final ED/URGENT CARE ADD-ON Tests to be added LIPASE Final Number for problems 38697 (ED) Final LACTIC ACID TROPONIN I LIPASE [...] the Emergency Department: Serious PCP: Jodi Camp [facility] Number of Diagnoses or Management Options [...] 09/06/2015 2:18 lan of Laura - John Dvaies RN - 09/05/2015 1700 EDT Problem: Daily Care Plan Goals Goal: Care Plan Documentation Outcome: Met This Shift Data: Patient transferred to [place] [address]. Action: Oriented patient to floor. Encouraged meal [...] administered. 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 VSS,. Will CTM. lan of Care - [...] to Ordered: GENERAL SURGERY unspecified organism 08/2015 [place] Intra-abdominal infection AMB CONS/FOLLOW UP Outpatient Referral Routine Elevated troponin Ordered: CARDIOLOGY Sepsis, due to 09/25/2015 unspecified organism ([facility] documented as of this encounter Procedures Procedure [...] nature WBC 9.90 4.0 - 12.4 K/cmm [facility] LABORATORY SERVICES RBC 3.81 (L) 3.86 - 5.04 [facility] M/[facility] LABORATORY SERVICES Hemoglobin 11.2 (L) 11.6 - 15.2 [facility] gm/dl LABORATORY SERVICES HCT 34.3 (L) 34.9 - 44.4 % [facility] LABORATORY SERVICES MCV 90 81 - 98 fl [facility] LABORATORY SERVICES MCH 29.4 26.7 - 33.3 pg [facility] LABORATORY SERVICES MCHC 32.7 32.1 - 35.9 [facility] gm/dl LABORATORY SERVICES RDW-CV 14.7 (H) 11.7 - 14.6 % [facility] LABORATORY SERVICES RDW-SD 48.4 37.6 - 50.3 fl [facility] LABORATORY SERVICES PLT 130 (L) 141 - 377 K/cmm [facility] LABORATORY SERVICES MPV 11.4 9.5 - 12.7 fl [facility] LABORATORY SERVICES Neutrophils 64.0 % [facility] LABORATORY SERVICES Bands 1.0 % [facility] LABORATORY SERVICES Lymphocytes 20.0 % [facility] LABORATORY SERVICES Monocytes 9.0 % [facility] LABORATORY SERVICES Eosinophils 2.0 % [facility] LABORATORY SERVICES Basophils 1.0 % [facility] LABORATORY SERVICES Metamyelocytes 2.0 % [facility] LABORATORY SERVICES Myelocytes 1.0 % [facility] LABORATORY SERVICES ABS Neutrophils 6.33 2.20 - 8.85 [facility] K/[facility] LABORATORY SERVICES ABS Bands 0.10 [facility] ABS Lymphs 1.98 1.09 - 3.30 [facility] LABORATORY SERVICES ABS Monocytes 0.89 (H) 0.1 - 0.8 [facility] ABS Eosinophils 0.20 0.03 - 0.61 [facility] K/[facility] LABORATORY SERVICES ABS Basophils 0.10 0.01 - 0.11 [facility] LABORATORY SERVICES ABS Metamyelocytes 0.20 [facility] ABS Myelocytes 0.10 [facility] LAB[facility] Type of Diff: Manual [facility] LABORATORY SERVICES Specimen Blood specimen (specimen) - Blood Performing Organization Address City/[facility] Code Phon e Number [facility] LABORATORY [address] [place] [phone] SERVICES TOTAL & DIRECT BILIRUBIN (09/06/2015 7:06 EDT) Pathologist Sig nature Conjugated Bilirubin 0.0 0.0 - 0.3 mg/dl [facility] R LABORATORY SERVICES Unconjugated Bilirubin 0.4 0.0 - 1.1 mg/dl [facility] LABORATORY SERVICES Bilirubin, Total 1.1 <1.4 mg/dl [facility] LABORATORY SERVICES Specimen Blood specimen (specimen) - Blood Performing Organization Address City/State/[facility] Phon e Number [facility] LABORATORY [address] [place] [address] SERVICES (ABNORMAL) ALKALINE PHOSPHATASE (09/06/2015 7:06 EDT) Pathologist Sig nature Total Alkaline 174 (H) 38 - 126 U/L [facility] Phosphatase LABORATORY SERVICES Specimen Blood specimen (specimen) - Blood Performing Organization Address [facility]/State/ZIP Code Phon e Number [facility] LABORATORY [address] [place] [address] SERVICES PHOSPHORUS (09/06/2015 7:06 EDT) Pathologist Sig nature Phosphorus 3.0 2.5 - 4.5 mg/dl [facility] LABORA TORY SERVICES Specimen Blood specimen (specimen) - Blood Performing Organization Address City/[facility]/ZIP Code Phon e Number [facility] LABORATORY [address] [place] [address] SERVICES MAGNESIUM (09/06/2015 7:06 EDT) Pathologist Sig nature Magnesium 2.1 1.7 - 2.8 mg/dl [facility] LABORA TORY SERVICES Specimen Blood specimen (specimen) - Blood Performing Organization Address City/[facility]/ZIP Code Phon e Number [facility] LABORATORY [address] [place] [address] SERVICES ALT (09/06/2015 7:06 EDT) Pathologist Sig nature ALT 49 <53 U/L [facility] LABORATOR Y SERVICES Specimen Blood specimen (specimen) - Blood Performing Organization Address City/[facility]/ZIP Code Phon e Number [facility] LABORATORY [address] [place] [address] SERVICES AST (09/06/2015 7:06 EDT) Pathologist Sig nature AST 44 15 - 46 U/L [facility] LABORATOR Y SERVICES Specimen Blood specimen (specimen) - Blood Performing Organization Address City/[facility]/ZIP Code Phon e Number [facility] LABORATORY [address] [place] [address] SERVICES BUN (09/06/2015 7:06 EDT) Pathologist Sig nature BUN 12 10 - 26 mg/dl [facility] LABORATO RY SERVICES Specimen Blood specimen (specimen) - Blood Performing Organization Address City/[facility]/ZIP Code Phon e Number [facility] LABORATORY [address] [place] [address] SERVICES CREATININE (09/06/2015 7:06 EDT) Creatinine 0.63 0.52 - 1.04 [facility] mg/dl LABORATORY SERVICES GFR, Calculated 90 >60 [facility] Comment: ml/min/1.73m2 LABORATORY eGFR calculated using CKD-EPI equation for SERVICES non Americans. Multiply eGFR by 1.16 for Americans. Specimen Blood specimen (specimen) - Blood Performing Organization Address City/State/ZIP Code Phon e Number [facility] LABORATORY [address] [place] [address] SERVICES CALCIUM, IONIZED (09/06/2015 7:06 EDT) Pathologist Sig nature Calcium, Ionized 1.18 1.12 - 1.32 mmol/L [facility] LABORATORY SERVICES Specimen Blood specimen (specimen) - Blood Performing Organization Address City/[facility]/ZIP Code Phon e Number [facility] LABORATORY [address] [place] [address] SERVICES ELECTROLYTES (09/06/2015 7:06 EDT) Pathologist Sig nature Sodium 140 136 - 145 mEq/L [facility] LABORA TORY SERVICES Potassium 4.0 3.5 - 5.0 mEq/L [facility] LABORA TORY SERVICES Chloride 103 96 - 110 mEq/L [facility] LABORAT ORY SERVICES CO2 26 24 - 32 mEq/L [facility] LABORATO RY SERVICES Specimen Blood specimen (specimen) - Blood Performing Organization Address City/[facility]/ZIP Code Phon e Number [facility] LABORATORY [address] [place] [address] SERVICES (ABNORMAL) HEMAGRAM AND DIFFERENTIAL (09/06/2015 7:06 EDT) Pathologist Sig nature WBC 12.99 (H) 4.0 - 12.4 K/cmm [facility] LABORATORY SERVICES RBC 3.74 (L) 3.86 - 5.04 [facility] M/[facility] LABORATORY SERVICES Hemoglobin 11.0 (L) 11.6 - 15.2 [facility] gm/dl LABORATORY SERVICES HCT 33.8 (L) 34.9 - 44.4 % [facility] LABORATORY SERVICES MCV 90 81 - 98 fl [facility] LABORATORY SERVICES MCH 29.4 26.7 - 33.3 pg [facility] LABORATORY SERVICES MCHC 32.5 32.1 - 35.9 [facility] gm/dl LABORATORY SERVICES RDW-CV 14.8 (H) 11.7 - 14.6 % [facility] LABORATORY SERVICES RDW-SD 49.1 37.6 - 50.3 fl [facility] LABORATORY SERVICES PLT 110 (L) 141 - 377 K/cmm [facility] LABORATORY SERVICES MPV 10.8 9.5 - 12.7 fl [facility] LABORATORY SERVICES Neutrophils 80.0 % [facility] LABORATORY SERVICES Bands 1.0 % [facility] LABORATORY SERVICES Lymphocytes 14.0 % [facility] LABORATORY SERVICES Monocytes 1.0 % [facility] LABORATORY SERVICES Eosinophils 4.0 % [facility] LABORATORY SERVICES ABS Neutrophils 10.39 (H) 2.20 - 8.85 [facility] K/[facility] LABORATORY SERVICES ABS Bands 0.13 K/cmm [facility] LABORATORY SERVICES ABS Lymphs 1.82 1.09 - 3.30 [facility] K/cm LABORATORY SERVICES ABS Monocytes 0.13 0.1 - 0.8 K/cmm [facility] LABORATORY SERVICES ABS Eosinophils 0.52 0.03 - 0.61 [facility] K/[facility] LABORATORY SERVICES Toxic Granulation Present [facility] LABORATORY SERVICES Vacuolization Present [facility] LABORATORY SERVICES Type of Diff: Manual [facility] LABORATORY SERVICES Specimen Blood specimen (specimen) - Blood Performing Organization Address City/State/ZIP Code Phon e Number [facility] LABORATORY [address] [place] [address] SERVICES ECHOCARDIOGRAM LIMITED (09/05/2015 12:02 EDT) Specimen Narrative [facility] CARDIOLOGY MAIN CAMPU S - 09/05/2015 12:59 EDT *Interpreting Group:* *[facility]* [address] [place] [phone] ?? Date of study: 09/05/2015 ?? Transthoracic [...] septum: Echo contrast study sh owed no talcn-bb-kcql atrial level ?? shunt, at baseline or with provocati on. 4. Pulmonary arteries: Pulmonary systoli c pressure was mildly increased, in the ?? range of 35mm Hg to 40mm Hg. *PATIENT PRESENTATION* Height: ? () S/D Pressure: Weight: ? () BSA: Test start time: ??11:34 AM. Test stop time: ??11:42 AM. REFERRING ?Fabiano Aranda FORGING DIES FINAL FINISHER ??Jarrett Ortiz RDCS ADMITTING ?Neida Fisher ATTENDING ?Neida Fisher ORDERING ? George Vail PERFORMING ?? [facility], *PROCEDURE DATA* Procedure information: ??This study was interpreted by [facility]. Pertinent imag es and digital data are archived for permanent storage and are available for subsequent review. ??Study status: Routine. Transthoracic echocardiography. ??M-mode, limited 2D, limited spectral Doppler, and color Doppler. A Transthora cic Echocardiogram was performed. Scanning was performed from the paraster nal, apical, and subcostal acoustic windows. Images were obtained using a [employer] IE33 5 cardiac ultrasound machine. Image quality [...] ?? Echo contrast study sh owed no ujqyo-rv-jchm atrial level shunt, at baseline or with [...] Wade MD - 09/05/2015 *Interpreting Group:* *[facility]* [address] [place] [address] Date of study: 09/05/2015 Transthoracic Echocardiography M-mode, limited 2D, limited spectral Dop pler, and color Doppler *STUDY CONCLUSIONS* Summary: 1. Left ventricle: The cavity size was n ormal. Systolic function was normal. The estimated ejection fraction was 60-65%. 2. Right ventricle: The cavity size was mildly to moderately dilated. Systolic function was normal. 3. Atrial septum: Echo contrast study sh owed no vnnhz-yl-kmer atrial level shunt, at baseline or with provocation. 4. Pulmonary arteries: Pulmonary systoli c pressure was mildly increased, in the range of 35mm Hg to 40mm Hg. *PATIENT PRESENTATION* Height: () S/D Pressure: Weight: () BSA: Test start time: 11:34 AM. Test stop time: 11:42 AM. REFERRING Fabiano Aranda FORGING DIES FINAL FINISHER Jarrett Ortiz [facility] ADMITTING Neida Fisher ATTENDING Neida Fisher Joshua K PERFORMING [facility], *PROCEDURE DATA* Procedure information: This study was in terpreted by [facility]. Pertinent imag es and digital data are archived for permanent storage and are available for subsequent review. Study status: Routine. Transthoracic echocardiography. M-mode, limited 2D, limited spectral Doppler, and color Doppler. A Transthora cic Echocardiogram was performed. Scanning was performed from the paraster nal, apical, and subcostal acoustic windows. Images were obtained using a [employer] IE33 5 cardiac ultrasound machine. Image quality [...] septum: Echo contrast study showe d no rwrva-oi-jlce atrial level shunt, at baseline or with [...] Wade MD 09/05/2015 12:59 Performing Organization Address [facility] Phon e Number [facility] CARDIOLOGY MAIN CAMPUS LIPID PROFILE (INCLUDES CHOLESTEROL, TRIGLYCERIDES, HDL, LDL) (09/05/2015 3:06 EDT) Cholesterol 138 mg/dl [facility] Comment: LABORATORY Desirable:<200 SERVICES Borderline High:200-239 High:>ku=227 Triglycerides 180 mg/dl [facility] Comment: LABORATORY Normal:<150 SERVICES Borderline High:150-199 High:200-499 Very High:>io=952 HDL 35 mg/dl [facility] Comment: LABORATORY Low:<40 SERVICES Normal:40-60 Desirable: >60 LDL, Calculated 67 mg/dl [facility] Comment: LABORATORY Optimal:<100 SERVICES Near Optimal:100-129 Borderline High:130-159 High:160-189 Very High:>ji=388 Chol/HDL Ratio 3.9 [facility] LABORATORY SERVICES Fasting? Unknown [facility] LABORATORY SERVICES Non HDL Cholesterol 103 mg/dl [facility] Comment: LABORATORY Desirable:<130 SERVICES Borderline:130-159 High: 160-189 Very High: >tc=382 Specimen Blood specimen (specimen) - Blood Performing Organization Address [facility] Phon e Number [facility] LABORATORY [address] [place] [address] SERVICES TOTAL & DIRECT BILIRUBIN (09/05/2015 3:06 EDT) Pathologist Sig nature Conjugated Bilirubin 0.0 0.0 - 0.3 mg/dl [facility] LABORATORY SERVICES Unconjugated Bilirubin 0.4 0.0 - 1.1 mg/dl [facility] LABORATORY SERVICES Bilirubin, Total 1.0 <1.4 mg/dl [facility] LABORATORY SERVICES Specimen Blood specimen (specimen) - Blood Performing Organization Address [facility] Phon e Number [facility] LABORATORY [address] [place] [phone] SERVICES ALKALINE PHOSPHATASE (09/05/2015 3:06 EDT) Pathologist Sig nature Total Alkaline 94 38 - 126 U/L [facility] Phosphatase LABORATORY SERVICES Specimen Blood specimen (specimen) - Blood Performing Organization Address City/State/ZIP Code Phon e Number [facility] LABORATORY [address] [place] [address] SERVICES (ABNORMAL) PHOSPHORUS (09/05/2015 3:06 EDT) Pathologist Sig nature Phosphorus 2.1 (L) 2.5 - 4.5 mg/dl [facility] LABORATORY SERVICES Specimen Blood specimen (specimen) - Blood Performing Organization Address City/[facility]/ZIP Code Phon e Number [facility] LABORATORY [address] [place] [address] SERVICES MAGNESIUM (09/05/2015 3:06 EDT) Pathologist Sig nature Magnesium 2.0 1.7 - 2.8 mg/dl [facility] LABORA TORY SERVICES Specimen Blood specimen (specimen) - Blood Performing Organization Address City/[facility]/ZIP Code Phon e Number [facility] LABORATORY [address] [place] [address] SERVICES (ABNORMAL) ALT (09/05/2015 3:06 EDT) Pathologist Sig nature ALT 54 (H) <53 U/L [facility] LABORATOR Y SERVICES Specimen Blood specimen (specimen) - Blood Performing Organization Address City/[facility]/ZIP Code Phon e Number [facility] LABORATORY [address] [place] [address] SERVICES (ABNORMAL) AST (09/05/2015 3:06 EDT) Pathologist Sig nature AST 52 (H) 15 - 46 U/L [facility] LABORATOR Y SERVICES Specimen Blood specimen (specimen) - Blood Performing Organization Address City/[facility]/ZIP Code Phon e Number [facility] LABORATORY [address] [place] [address] SERVICES BUN (09/05/2015 3:06 EDT) Pathologist Sig nature BUN 15 10 - 26 mg/dl [facility] LABORATO RY SERVICES Specimen Blood specimen (specimen) - Blood Performing Organization Address City/[facility]/ZIP Code Phon e Number [facility] LABORATORY [address] [place] [address] SERVICES CREATININE (09/05/2015 3:06 EDT) Creatinine 0.79 0.52 - 1.04 [facility] mg/dl LABORATORY SERVICES GFR, Calculated 75 >60 [facility] Comment: ml/min/1.73m2 LABORATORY eGFR calculated using CKD-EPI equation for SERVICES non Americans. Multiply eGFR by 1.16 for Americans. Specimen Blood specimen (specimen) - Blood Performing Organization Address City/State/ZIP Code Phon e Number [facility] LABORATORY [address] [place] [address] SERVICES (ABNORMAL) CALCIUM, IONIZED (09/05/2015 3:06 EDT) Pathologist Sig nature Calcium, Ionized 1.08 (L) 1.12 - 1.32 [facility] mmol/L LABORATORY SERVICES Specimen Blood specimen (specimen) - Blood Performing Organization Address City/State/ZIP Code Phon e Number [facility] LABORATORY [address] [place] [address] SERVICES (ABNORMAL) ELECTROLYTES (09/05/2015 3:06 EDT) Pathologist Sig nature Sodium 142 136 - 145 mEq/L [facility] LABORA TORY SERVICES Potassium 3.3 (L) 3.5 - 5.0 mEq/L [facility] LABORA TORY SERVICES Chloride 105 96 - 110 mEq/L [facility] LABORAT ORY SERVICES CO2 26 24 - 32 mEq/L [facility] LABORATO RY SERVICES Specimen Blood specimen (specimen) - Blood Performing Organization Address City/[facility]/ZIP [facility] Phon e Number [facility] LABORATORY [address] [place] [address] SERVICES (ABNORMAL) HEMAGRAM AND DIFFERENTIAL (09/05/2015 3:06 EDT) Pathologist Sig nature WBC 17.81 (H) 4.0 - 12.4 K/cmm [facility] LABORATORY SERVICES RBC 3.42 (L) 3.86 - 5.04 [facility] M/[facility] LABORATORY SERVICES Hemoglobin 10.2 (L) 11.6 - 15.2 [facility] gm/dl LABORATORY SERVICES HCT 31.1 (L) 34.9 - 44.4 % [facility] LABORATORY SERVICES MCV 91 81 - 98 fl [facility] LABORATORY SERVICES MCH 29.8 26.7 - 33.3 pg [facility] LABORATORY SERVICES MCHC 32.8 32.1 - 35.9 [facility] gm/dl LABORATORY SERVICES RDW-CV 15.0 (H) 11.7 - 14.6 % [facility] LABORATORY SERVICES RDW-SD 50.4 (H) 37.6 - 50.3 fl [facility] LABORATORY SERVICES PLT 96 (L) 141 - 377 K/cmm [facility] LABORATORY SERVICES MPV 10.8 9.5 - 12.7 fl [facility] LABORATORY SERVICES Neutrophils 75.0 % [facility] LABORATORY SERVICES Bands 13.0 % [facility] LABORATORY SERVICES Lymphocytes 9.0 % [facility] LABORATORY SERVICES Monocytes 2.0 % [facility] LABORATORY SERVICES Eosinophils 1.0 % [facility] LABORATORY SERVICES ABS Neutrophils 13.35 (H) 2.20 - 8.85 [facility] K/cmm LABORATORY SERVICES ABS Bands 2.32 K/cmm [facility] LABORATORY SERVICES ABS Lymphs 1.60 1.09 - 3.30 [facility] K/[facility] LABORATORY SERVICES ABS Monocytes 0.36 0.1 - 0.8 K/cmm [facility] LABORATORY SERVICES ABS Eosinophils 0.18 0.03 - 0.61 [facility] K/[facility] LABORATORY SERVICES Toxic Granulation Present [facility] LABORATORY SERVICES Type of Diff: Manual [facility] LABORATORY SERVICES Specimen Blood specimen (specimen) - Blood Performing Organization Address City/State/ZIP Code Phon e Number [facility] LABORATORY [address] [place] [address] SERVICES ECHOCARDIOGRAM (09/04/2015 10:49 EDT) Specimen Narrative [facility] CARDIOLOGY MAIN CAMPU S - 09/04/2015 11:37 EDT *Interpreting Group:* *[facility] Cardiology* [address] [place] [address] ?? Date of study: 09/04/2015 ?? Transthoracic [...] Aranda ADMITTING ?Neida Fisher ATTENDING ?Neida Fisher FORGING DIES FINAL FINISHER ??Rula Cochran PERFORMING ?? [employer], [employer]p ORDERING ? Rony Leach *PROCEDURE DATA* Procedure information: ??This study was interpreted by [facility] Cardiology. Pertinent imag es and digital data are archived for permanent storage and are available for subsequent review. ??Study status: Routine. Transthoracic echocardiography. ??M-mode, complete 2D, complete spectral Doppler, and color Doppler. A Transthora cic Echocardiogram was performed. Scanning was performed from the paraster nal, apical, subcostal, and suprasternal notch acoustic windows. Images were obta ined using an [employer] 9 cardiac ultrasound machine. Image quality was [...] Munoz MD - 09/04/2015 *Interpreting Group:* *[facility] Cardiology* [address] [place] [address] Date of study: 09/04/2015 Transthoracic Echocardiography M-mode, [...] Aranda ADMITTING Neida Fisher ATTENDING Neida Fisher FORGING DIES FINAL FINISHERRula Crook PERFORMING [employer], ORDERING Rony Leach *PROCEDURE DATA* Procedure information: This study was in terpreted by [facility] Cardiology. Pertinent imag es [...] Lopez Munoz 09/04/2015 11:37 Performing Organization Address [facility]/ZIP Code Phon e Number [facility] CARDIOLOGY MAIN CAMPUS (ABNORMAL) TROPONIN I (09/04/2015 3:18 EDT) Pathologist Sig nature Troponin I (ng/mL) 0.289 (H) <0.034 ng/ml [facility] LABORATORY SERVICES Specimen Blood specimen (specimen) - Blood Performing Organization Address [facility]/ZIP Code Phon e Number [facility] LABORATORY [address] [place] [address] SERVICES TOTAL & DIRECT BILIRUBIN (09/04/2015 3:18 EDT) Pathologist Sig nature Conjugated Bilirubin 0.0 0.0 - 0.3 mg/dl [facility] LAB[facility]ORY SERVICES Unconjugated Bilirubin 0.3 0.0 - 1.1 mg/dl [facility] LABORATORY SERVICES Bilirubin, Total 1.1 <1.4 mg/dl [facility] LABORATORY SERVICES Specimen Blood specimen (specimen) - Blood Performing Organization Address [facility]/ZIP Code Phon e Number [facility] LABORATORY [address] [place] [address] SERVICES ALKALINE PHOSPHATASE (09/04/2015 3:18 EDT) Pathologist Sig nature Total Alkaline 85 38 - 126 U/L [facility] Phosphatase LABORATORY SERVICES Specimen Blood specimen (specimen) - Blood Performing Organization Address City/[facility]/ZIP Code Phon e Number [facility] LABORATORY [address] [place] [address] SERVICES PHOSPHORUS (09/04/2015 3:18 EDT) Pathologist Sig nature Phosphorus 2.5 2.5 - 4.5 mg/dl [facility] LABORA TORY SERVICES Specimen Blood specimen (specimen) - Blood Performing Organization Address [facility]/ZIP Code Phon e Number [facility] LABORATORY [address] [place] [address] SERVICES MAGNESIUM (09/04/2015 3:18 EDT) Pathologist Sig nature Magnesium 1.7 1.7 - 2.8 mg/dl [facility] LABORA TORY SERVICES Specimen Blood specimen (specimen) - Blood Performing Organization Address [facility]/ZIP Code Phon e Number [facility] LABORATORY [address] [place] [address] SERVICES (ABNORMAL) ALT (09/04/2015 3:18 EDT) Pathologist Sig nature ALT 68 (H) <53 U/L [facility] LABORATOR Y SERVICES Specimen Blood specimen (specimen) - Blood Performing Organization Address [facility] Phon e Number [facility] LABORATORY [address] [place] [address] SERVICES (ABNORMAL) AST (09/04/2015 3:18 EDT) Pathologist Sig nature AST 73 (H) 15 - 46 U/L [facility] LABORATOR Y SERVICES Specimen Blood specimen (specimen) - Blood Performing Organization Address [facility] Phon e Number [facility] LABORATORY [address] [place] [address] SERVICES BUN (09/04/2015 3:18 EDT) Pathologist Sig nature BUN 16 10 - 26 mg/dl [facility] LABORATO RY SERVICES Specimen Blood specimen (specimen) - Blood Performing Organization Address [facility] Phon e Number [facility] LABORATORY [address] [place] [address] SERVICES CREATININE (09/04/2015 3:18 EDT) Creatinine 0.82 0.52 - 1.04 [facility] mg/dl LABORATORY SERVICES GFR, Calculated 72 >60 [facility] Comment: ml/min/1.73m2 LABORATORY eGFR calculated using CKD-EPI equation for SERVICES non Americans. Multiply eGFR by 1.16 for Americans. Specimen Blood specimen (specimen) - Blood Performing Organization Address City/[facility]/ZIP [facility] Phon e Number [facility] LABORATORY [address] [place] [address] SERVICES (ABNORMAL) CALCIUM, IONIZED (09/04/2015 3:18 EDT) Pathologist Sig nature Calcium, Ionized 0.96 (L) 1.12 - 1.32 [facility] mmol/L LABORATORY SERVICES Specimen Blood specimen (specimen) - Blood Performing Organization Address [facility]/ZIP [facility] Phon e Number [facility] LABORATORY [address] [place] [address] SERVICES (ABNORMAL) ELECTROLYTES (09/04/2015 3:18 EDT) Pathologist Sig nature Sodium 142 136 - 145 mEq/L [facility] LABORA TORY SERVICES Potassium 3.8 3.5 - 5.0 mEq/L [facility] LABORA TORY SERVICES Chloride 111 (H) 96 - 110 mEq/L [facility] LABORAT ORY SERVICES CO2 21 (L) 24 - 32 mEq/L [facility] LABORATO RY SERVICES Specimen Blood specimen (specimen) - Blood Performing Organization Address City/State/ZIP Code Phon e Number [facility] LABORATORY [address] [place] [address] SERVICES (ABNORMAL) HEMAGRAM AND DIFFERENTIAL (09/04/2015 3:18 EDT) Pathologist Sig nature WBC 23.58 (H) 4.0 - 12.4 K/cmm [facility] LABORATORY SERVICES RBC 3.47 (L) 3.86 - 5.04 [facility] M/[facility] LABORATORY SERVICES Hemoglobin 10.4 (L) 11.6 - 15.2 [facility] gm/dl LABORATORY SERVICES HCT 31.8 (L) 34.9 - 44.4 % [facility] LABORATORY SERVICES MCV 92 81 - 98 fl [facility] LABORATORY SERVICES MCH 30.0 26.7 - 33.3 pg [facility] LABORATORY SERVICES MCHC 32.7 32.1 - 35.9 [facility] gm/dl LABORATORY SERVICES RDW-CV 15.1 (H) 11.7 - 14.6 % [facility] LABORATORY SERVICES RDW-SD 50.3 37.6 - 50.3 fl [facility] LABORATORY SERVICES PLT 110 (L) 141 - 377 K/cmm [facility] LABORATORY SERVICES MPV 10.3 9.5 - 12.7 fl [facility] LABORATORY SERVICES Neutrophils 79.0 % [facility] LABORATORY SERVICES Bands 18.0 % [facility] LABORATORY SERVICES Monocytes 3.0 % [facility] LABORATORY SERVICES ABS Neutrophils 18.63 (H) 2.20 - 8.85 [facility] K/cmm LABORATORY SERVICES ABS Bands 4.24 [facility] ABS Monocytes 0.71 0.1 - 0.8 K/[facility] LABORATORY SERVICES Toxic Granulation Present [facility] LABORATORY SERVICES Type of Diff: Manual [facility] LABORATORY SERVICES Specimen Blood specimen (specimen) - Blood Performing Organization Address City/[facility]/ZIP Code Phon e Number [facility] LABORATORY [address] [place] [address] SERVICES (ABNORMAL) TROPONIN I (09/04/2015 1:42 EDT) Pathologist Sig nature Troponin I (ng/mL) 0.330 (H) <0.034 ng/ml [facility] LABORATORY SERVICES Specimen Blood specimen (specimen) - Blood Performing Organization Address City/[facility]/ZIP Code Phon e Number [facility] LABORATORY [address] [place] [address] SERVICES LACTIC ACID (09/04/2015 1:42 EDT) Pathologist Sig nature Lactic Acid 1.3 <2.0 mmol/L [facility] LABORATOR Y SERVICES Specimen Blood specimen (specimen) - Blood Performing Organization Address [facility]/ZIP Code Phon e Number [facility] LABORATORY [address] [place] [address] SERVICES EKG 12-LEAD (09/03/2015 21:06 EDT) Specimen Narrative [facility] EKG - 09/04/2015 11:5 5 EDT ? [facility] ? Test Date: ?2015-09-03 Pat Name: ? JOY CUNHA ?Department: ?? COTE 3 ? Room: ? M326 Gender: ? F ?Quarry Supervisor Open Pit: ?? [id number] : ?1940 ? Requested By: ELISHA ALEMAN Order Number: [id number] ? Reading : ?? ANNELISE CASTILLO MD ? Measurements Intervals ?Ragland ? Rate: ? 95 ? P: ?-7 UT: ? 202 ?QRS: ?-14 QRSD: ? 93 [...] Note Annelise Castillo MD - 09/04/2015 [facility] Test Date: 2015-09-03 Pat Name: JOY CUNHA Department: TYRA Beth Room: [facility] Gender: F Quarry Supervisor Open Pit: [id number] : 1940 Requested By: ELISHA ALEMAN Order Number: [id number] Reading MD: Merrill CASTILLO MD Measurements Intervals Ragland Rate: 95 P: -7 UT: 202 QRS: -14 QRSD: 93 T: 31 [...] by ANNELISE CASTILLO MD. Performing Organization Address City/[facility]/ZIP Code Phon e Number [facility] EKG (ABNORMAL) TROPONIN I (09/03/2015 19:30 EDT) Pathologist Sig nature Troponin I (ng/mL) 0.334 (H) <0.034 ng/ml [facility] LABORATORY SERVICES Specimen Blood specimen (specimen) - Blood Performing Organization Address [facility]/ZIP Code Phon e Number [facility] LABORATORY [address] [place] [address] SERVICES LACTIC ACID (09/03/2015 19:30 EDT) Pathologist Sig nature Lactic Acid 1.4 <2.0 mmol/L [facility] LABORATOR Y SERVICES Specimen Blood specimen (specimen) - Blood Performing Organization Address [facility]/ZIP Code Phon e Number [facility] LABORATORY [address] [place] [address] SERVICES PORTABLE CHEST 1 VIEW (09/03/2015 17:02 EDT) Anatomical Region Laterality Modality Other Specimen Narrative [facility] RADIOLOGY MAIN CAMPUS - 09/03/2015 17:15 [...] City/State/ZIP Code Phon e Number [facility] RADIOLOGY MAIN CAMPUS RAD US ABDOMEN ONE ORGAN/QUADRANT (09/03/2015 14:34 EDT) Anatomical Region Laterality Modality Other Specimen Narrative [facility] RADIOLOGY MAIN CAMPUS - 09/03/2015 16:17 EDT RAD US ABDOMEN ONE ORGAN/QUADRANT ??09/03/2015 2:34 PM Signs and Symptoms/Comments: abdominal p ain Comparison: CT abdomen/pelvis performed 7 hours prior and [facility]. Technique: Grayscale and limited Doppler ultrasound [...] No pericholecys tic fluid is identified. Per sap pp consultant's report, while there is no focal tenderness [...] CT abdomen/pelvis performed 7 hours prior and [facility]. Technique: Grayscale and limited Doppler ultrasound [...] No pericholecys tic fluid is identified. Per sap pp consultant's report, while there is no focal tenderness [...] City/State/ZIP Code Phon e Number [facility] RADIOLOGY MAIN CAMPUS MRSA PCR (09/03/2015 13:48 EDT) Specimen Nasal [facility] LABORATORY SERVICES Result No Staphylococcus [facility] aureus detected by [facility] LABORATORY PCR. SERVICES Specimen Other Performing Organization Address City/State/ZIP Code Phon e Number [facility] LABORATORY [address] [place] [address] SERVICES SECONDARY READ BODY CT (09/03/2015 13:23 EDT) Anatomical Region Laterality Modality Other Specimen Narrative [facility] RADIOLOGY MAIN CAMPUS - 09/03/2015 16:57 EDT [address] ??09/03/2015 1:23 PM Signs and Symptoms/Comments: ?? Clinical Presentation Inconsistent with Outside Imaging Interpretation; minimal abdominal pain, OSH report with concern for appedicitis and cholecytitis, phelgmon, ? drainable collection Technique: CT of the abdomen and pelvis was performed at [facility]. Secondary interpretation is performed at the request [...] the abdomen and pelvis was performed at [facility]. Secondary interpretation is performed at the request [...] City/State/ZIP Code Phon e Number [facility] RADIOLOGY MAIN CAMPUS INPATIENT ADD-ON (09/03/2015 13:15 EDT) Pathologist Sig nature Tests to be added ALT,AST,TOTAL [facility] BILI,LIPASE,ALK LABORATORY SERVICES PHOS Number for problems [id number] [facility] LABORATORY SERVICES Accession number [id number] [facility] LABORATORY SERVICES Specimen Other Performing Organization Address City/State/ZIP Code Phon e Number [facility] LABORATORY [address] [place] [address] SERVICES [facility] 12-LEAD (09/03/2015 13:10 EDT) Specimen Narrative [facility] - 09/04/2015 11:5 5 EDT ?[facility] Emergency ? Test Date: ?2015-09-03 Pat Name: ? JOY CUNHA ?Department: ?? ED ? Room: ? AC10 Gender: ? F ?Quarry Supervisor Open Pit: ?? [id number] : ?1940 ? Requested By: AVNI Putnam Order Number: [id number] ? Reading MD: ?? ANNELISE CAPELESS MD ? Measurements Intervals ?Ragland ? Rate: ? 86 ? P: ?21 UT: ? 220 ?QRS: ?-19 QRSD: ? 102 ?T: ?30 QT: ? 365 ? QTc: ?438 ? Interpretive Statements SINUS RHYTHM WITH MARKED SINUS ARRHYTHMI A WITH FIRST DEGREE AV BLOCK No previous ECG available for comparison Edited by JOEL ECSALONA MD on 09-03-15 23:10:34 EDT. I have reviewed the tracing and have eit her agreed or edited the findings in this report. I reviewed the tracing and have either a greed or edited the findings in this report. Electronically Signed On 11:55:53 EDT by ANNELISE CASTILLO MD. Procedure Note Annelise Castillo MD - 09/04/2015 [facility] Emergency Test Date: 2015-09-03 Pat Name: JOY CUNHA Department: ED Room: [facility] Gender: F Quarry Supervisor Open Pit: [id number] : 1940 Requested By: AVNI Putnam Order Number: [id number] Azeem MD: Merrill CASTILLO MD Measurements Intervals Ragland Rate: 86 P: 21 UT: 220 QRS: -19 QRSD: 102 T: 30 [...] City/State/ZIP Code Phon e Number [facility] EKG ED/URGENT CARE ADD-ON (09/03/2015 12:25 EDT) Pathologist Sig nature Tests to be added LIPASE [facility] LABORATORY SERVICES Number for problems 52074 (ED) [facility] LABORATORY SERVICES Specimen Other Performing Organization Address [facility]/ZIP Code Phon e Number [facility] LABORATORY [address] [place] [address] SERVICES ED/URGENT CARE ADD-ON (09/03/2015 12:25 EDT) Pathologist Sig nature Tests to be added TSH [facility] LABORATORY SERVICES Number for problems [id number] (ED) [facility] LABORATORY SERVICES Specimen Other Performing Organization Address [facility] Phon e Number [facility] LABORATORY [address] [place] [address] SERVICES ED/URGENT CARE ADD-ON (09/03/2015 12:20 EDT) Pathologist Sig nature Tests to be added TROPONIN 1 [facility] LABORATORY SERVICES Number for problems [id number] (ED) [facility] LABORATORY SERVICES Specimen Other Performing Organization Address [facility] Phon e Number [facility] LABORATORY [address] [place] [address] SERVICES BILIRUBIN, TOTAL (09/03/2015 11:55 EDT) Pathologist Sig nature Bilirubin, Total 1.1 <1.4 mg/dl [facility] LABOR ATORY SERVICES Specimen Blood Performing Organization Address [facility] Phon e Number [facility] LABORATORY [address] [place] [address] SERVICES (ABNORMAL) AST (09/03/2015 11:55 EDT) Pathologist Sig nature AST 116 (H) 15 - 46 U/L [facility] LABORATOR Y SERVICES Specimen Blood Performing Organization Address [facility] Phon e Number [facility] LABORATORY [address] [place] [address] SERVICES (ABNORMAL) ALT (09/03/2015 11:55 EDT) Pathologist Sig nature ALT 78 (H) <53 U/L [facility] LABORATOR Y SERVICES Specimen Blood Performing Organization Address City/[facility]/ZIP [facility] Phon e Number [facility] LABORATORY [address] [place] [address] SERVICES ALKALINE PHOSPHATASE (09/03/2015 11:55 EDT) Pathologist Sig nature Total Alkaline 97 38 - 126 U/L [facility] Phosphatase LABORATORY SERVICES Specimen Blood Performing Organization Address City/State/ZIP Code Phon e Number [facility] LABORATORY [address] [place] [address] SERVICES (ABNORMAL) TSH (09/03/2015 11:55 EDT) Pathologist Sig nature TSH 0.14 (L) 0.55 - 4.78 uIU/ml [facility] LABORATORY SERVICES Specimen Blood Performing Organization Address City/[facility]/ZIP Code Phon e Number [facility] LABORATORY [address] [place] [address] SERVICES LIPASE (09/03/2015 11:55 EDT) Pathologist Sig nature Lipase 31 <251 U/L [facility] LABORATOR Y SERVICES Specimen Blood Performing Organization Address City/[facility]/ZIP Code Phon e Number [facility] LABORATORY [address] [place] [address] SERVICES (ABNORMAL) TROPONIN I (09/03/2015 11:55 EDT) Pathologist Sig nature Troponin I (ng/mL) 0.073 (H) <0.034 ng/ml [facility] LABORATORY SERVICES Specimen Blood Performing Organization Address City/State/ZIP Code Phon e Number [facility] LABORATORY [address] [place] [address] SERVICES (ABNORMAL) LACTIC ACID (09/03/2015 11:55 EDT) Pathologist Sig nature Lactic Acid 3.2 (HH) <2.0 mmol/L [facility] LABORATOR Y SERVICES Specimen Blood specimen (specimen) - Blood Performing Organization Address City/State/ZIP Code Phon e Number [facility] LABORATORY [address] [place] [address] SERVICES (ABNORMAL) HEMAGRAM AND DIFFERENTIAL (09/03/2015 11:55 EDT) WBC 23.44 (H) 4.0 - 12.4 [facility] K/cmm [facility] LABORATORY SERVICES RBC 4.00 3.86 - 5.04 [facility] M/[facility] LABORATORY SERVICES Hemoglobin 11.8 11.6 - 15.2 [facility] gm/dl [facility] LAB[facility]ATORY SERVICES HCT 36.9 34.9 - 44.4 [facility] LABORATORY SERVICES MCV 92 81 - 98 fl [facility] LABORATORY SERVICES MCH 29.5 26.7 - 33.3 [facility] LABORATORY SERVICES MCHC 32.0 (L) 32.1 - 35.9 [facility] gm/dl [facility] LABORATORY SERVICES RDW-CV 14.6 11.7 - 14.6 [facility] LABORATORY SERVICES RDW-SD 49.4 37.6 - 50.3 [facility] LABORATORY SERVICES PLT 139 (L) 141 - 377 [facility] LABORATORY SERVICES MPV 10.2 9.5 - 12.7 [facility] LABORATORY SERVICES Neutrophils 76.0 % [facility] LABORATORY SERVICES Bands 13.0 % [facility] LABORATORY SERVICES Lymphocytes 3.0 % [facility] LABORATORY SERVICES Monocytes 1.0 % [facility] LABORATORY SERVICES Metamyelocytes 7.0 % [facility] [facility] ABS Neutrophils 17.82 (H) 2.20 - 8.85 [facility] LABORATORY SERVICES ABS Bands 3.05 K/[facility] LABORATORY SERVICES ABS Lymphs 0.70 (L) 1.09 - 3.30 [facility] LABORATORY SERVICES ABS Monocytes 0.23 0.1 - 0.8 [facility] LABORATORY SERVICES ABS Metamyelocytes 1.64 K/[facility] LABORATORY SERVICES Differential Comment Rev'd by [facility] LABORATORY SERVICES Toxic Granulation Present [facility] LABORATORY SERVICES Type of Diff: Manual [facility] LABORATORY SERVICES Specimen Blood specimen (specimen) - Blood Performing Organization Address City/State/ZIP Code Phon e Number [facility] LABORATORY [address] [place] [address] SERVICES (ABNORMAL) BASIC METABOLIC PANEL (09/03/2015 11:55 EDT) Sodium 145 136 - 145 [facility] mEq/L LABORATORY SERVICES Potassium 3.3 (L) 3.5 - 5.0 [facility] mEq/L LABORATORY SERVICES Chloride 113 (H) 96 - 110 [facility] mEq/L LABORATORY SERVICES CO2 20 (L) 24 - 32 mEq/L [facility] LABORATORY SERVICES BUN 17 10 - 26 mg/dl [facility] LABORATORY SERVICES Creatinine 0.93 0.52 - 1.04 [facility] mg/dl LABORATORY SERVICES GFR, Calculated 62 >60 [facility] Comment: ml/min/1.73m2 LABORATORY eGFR calculated using CKD-EPI equation for SERVICES non Americans. Multiply eGFR by 1.16 for Americans. Calcium 7.4 (L) 8.5 - 10.5 [facility] mg/dl LABORATORY SERVICES Calculated Calcium 9.2 8.5 - 10.5 [facility] mg/dl LABORATORY SERVICES Glucose, Serum 109 (H) 70 - 100 [facility] mg/dl LABORATORY SERVICES Fasting? Unknown [facility] LABORATORY SERVICES Specimen Blood specimen (specimen) - Blood Performing Organization Address City/State/ZIP Code Phon e Number [facility] LABORATORY [address] [place] [address] SERVICES documented in this encounter Visit Diagnoses [...] PRN, Starting on Tue09/03/15 at 1310, Until [place] 09/07/15 at 1553, Nausea, Vomiting, Routine oxybutynin [...] 09/07/2015 documented in this encounter Care Teams Lmft Relationship Specialty Start Date End Date Jodi Camp MD PCP - General 09/03/15 12/22/[address] [address] documented as of this encounter
--- OUTSIDE RECORDS SUMMARY | 2022-01-29 01:37 | XMS_ITS | Encounter Summary ---
:1940 Author Organization [facility] Address [address] [place] [address] Care Team Providers Name Role Phone Dacia Hendrix MD Primary Care Provider [phone] Encounter Details Date Type Department Care Team Description 12/23/2015 Results Only [facility] PRISM MD Dacia [phone] [address] [place], [place] [id number] (Wo rk) Social History Tobacco Use Types [...] on filedocumented in this encounter Care Teams Airline Customer Service Agent Relationship Specialty Start Date End Date Dacia Hendrix MD PCP - General 12/23/15 06/16/17 [address] [place] [address] documented as of this encounter
--- OUTSIDE RECORDS SUMMARY | 2022-01-29 01:37 | XMS_ITS | Encounter Summary ---
:1940 Author Organization [facility] Address [address] [place] [address] Care Team Providers Name Role Phone Jodi Camp MD Primary Care Provider Reason for Referral Cardiology (Routine) - Closed Specialty Diagnoses / Procedures Referred By Contact Refer red To Contact Diagnoses Right ventricular dilation Contreras Preston MD Procedures ECHOCARDIOGRAM [address] [place] [address] Referral ID Status Reason Start Date Expiration Date Visits Requ ested Visits Authorized [id number] Closed 10/13/2015 1 1 Encounter Details Date Type Department Care Team Description 10/13/2015 Orders Only [facility] Juhi Mocnada, Right v entricular Cardiology - Amber KOENIG dilation (Primary Dx) [address] [place], [place] [address] Social History Tobacco Use [...] Results ECHOCARDIOGRAM (10/22/2015 15:58 EDT) Specimen Narrative [facility] CARDIOLOGY MAIN [place] S - 10/22/2015 16:47 EDT *Interpreting Group:* *[facility] Cardiology* [address] [place] [address] Date of study: 10/22/2015 Transthoracic Echocardiography M-mode, [...] ORDERING ? Contreras Preston REFERRING ?Contreras Preston,r TUBE FORMER OPERATOR ??Sophie Acharya PERFORMING ?? [facility], TUBE FORMER OPERATOR ??Junior Renee *PROCEDURE DATA* Procedure information: ??This study was interpreted by [facility] Cardiology. Pertinent imag es [...] Zambrano MD - 10/22/2015 *Interpreting Group:* *[facility] Cardiology* [address] [place] [address] Date of study: 10/22/2015 Transthoracic Echocardiography M-mode, [...] ORDERING Contreras Preston REFERRING Contreras Preston r TUBE FORMER OPERATOR Sophie Acharya PERFORMING [facility], Op TUBE FORMER OPERATOR Junior Renee *PROCEDURE DATA* Procedure information: This study was in terpreted by [facility] Cardiology. Pertinent [...] Organization Address City/State/ZIP Code Phon e Number [facility] CARDIOLOGY MAIN [place] documented in this encounter Visit Diagnoses Diagnosis Right ventricular dilation - Primary Cardiomegaly documented in this encounter Care Teams Home Therapy Teacher Relationship Specialty Start Date End Date Jodi Camp MD PCP - General 09/03/15 12/22/[address] [address] documented as of this encounter
--- OUTSIDE RECORDS SUMMARY | 2022-01-29 01:37 | XMS_ITS | Encounter Summary ---
:1940 Author Organization [facility] Address [address] [place] [address] Care Team Providers Name Role Phone Jodi Camp MD Primary Care Provider Reason for Visit Reason Comments Follow-up Perf Appendix Follow Up (Routine) - Closed Specialty Diagnoses / Procedures Referred By Contact Refer red To Contact Trauma Surgery Diagnoses Sepsis, due to unspecified organism Intra-abdominal infection Nina Power Ep5 Trauma/Crit Care MD Ceasar [address] [facility] [address] [place], [place] [address] [place] [address] Phone: Fax: Referral ID Status Reason Start Date Expiration Date Visits V isits Requested Authorized [id number] Closed Specialty 09/07/2015 1 1 Services Required Encounter Details Date Type Department Care Team Description 10/07/2015 Office Visit [facility] Jeremy Caceres Intra -abdominal Acute Care Surgery - MD Shad infecti on (Primary Dx) [facility] [place] [address] [place] [address] Social History Tobacco Use Types Packs/Day Years [...] Progress Notes Jeremy Caceres MD - 10/07/2015 0954 EDT Ms Armstrong presents with her in [...] eases documented in this encounter Care Teams Embossing Toolsetter Relationship Specialty Start Date End Date Jodi Camp MD PCP - General 09/03/15 12/22/[address] [address] documented as of this encounter
--- OUTSIDE RECORDS SUMMARY | 2022-01-29 01:37 | XMS_ITS | Encounter Summary ---
:1940 Author Organization [facility] Address [address] [place] [address] Care Team Providers Name Role Phone YobaniNayan Pedro HARRISON Primary Care Provider Manuel Isaacs MD Primary Care Provider Encounter Details Date Type Department Care Team Description 10/19/2019 Lab Requisition [facility] Outr Resulting Lab, Pathology & Laboratory Provider [facility] [address] [place], [place] [id number] Social History Tobacco Use Types Packs/Day Years [...] (10/19/2019 11:54 EDT) COVID-19 rt-PCR NEGATIVE Negative [facility] Result Comment: LABORATORY 2019-novel Coronavirus (2019 [...] Organization Address City/State/ZIP Code Phon e Number [facility] LABORATORY [facility] LABORATORY [place], [place] COVID-19 TESTING (10/19/2019 11:54 EDT) COVID-19 rt-PCR NEGATIVE Negative [facility] Result Comment: LABORATORY 2019-novel Coronavirus (2019 [...] obtained via nasopharyngeal or oropharyngeal swabs in [facility], UTM, M4, M5, M6, saline, and MTM [...] Administration's Emergency Use Authorization. Performing Lab [facility] LABORATORY SERVICES Specimen Swab Performing Organization Address City/State/ZIP Code Phon e Number [facility] LABORATORY [address] [place] [address] SERVICES [facility] LABORATORY [place], [place] documented in this encounter Visit Diagnoses Not on filedocumented in this encounter Care Teams Staff Auditor Relationship Specialty Start Date End Date Nayan Hilton DO PCP - General 06/17/17 04/01/20 Manuel Isaacs MD PCP - General 04/02/[address] [place] [phone] documented as of this encounter
--- OUTSIDE RECORDS SUMMARY | 2022-01-29 01:37 | XMS_ITS | Encounter Summary ---
:1940 Author Organization [facility] Address [address] [place] [address] Care Team Providers Name Role Phone YobaniNayan Pedro HARRISON Primary Care Provider Manuel Isaacs MD Primary Care Provider Encounter Details Date Type Department Care Team Description 10/24/2019 Lab Requisition [facility] Outr Resulting Lab, Pathology & Laboratory Provider [facility] [address] [place], [place] [id number] Social History Tobacco Use Types Packs/Day Years [...] 10:54 EDT) CA 125 17 <30 U/mL [facility] Comment: LABORATORY SERVICES NOTE: Serum CA 125 concentration s hould not be interpreted as absolute evidence for the presence or absence of malignant disease. Assayed on Siemens ADVIA Gladys taur XPT using chemiluminescent technology. ??Values obtained by using different assay methods cannot be used interchangeably. Specimen Blood - Venous blood (substance) Performing Organization Address City/State/[facility] Code Phon e Number [facility] LABORATORY [address] [place] [address] SERVICES documented in this encounter Visit Diagnoses Not on filedocumented in this encounter Care Teams Franchise Business Consultant Relationship Specialty Start Date End Date Nayan Hilton DO PCP - General 06/17/17 04/01/20 Manuel Isaacs MD PCP - General 04/02/[address] [place] [phone] documented as of this encounter
--- OUTSIDE RECORDS SUMMARY | 2022-01-29 01:37 | XMS_ITS | Encounter Summary ---
:1940 Author Organization [facility] Address [address] [place] [address] Care Team Providers Name Role Phone Unavailable Primary Care Provider Unavailable Encounter Details Date Type Department Care Team Description 12/14/1999 Hospital Encounter [facility] - Ethel Castro MD [address] [place] [address] [address] [place] [address] Other Unknown, Provider, [address] [place] [address] Social History Tobacco Use Types Packs/Day Years [...] JOY CUNHA ? Accession #: ? [id number] : ? 1940 (Age: 59) ??F ?Collect [...] Phon e Number [facility] LABORATORY [address] [place] [address] SERVICES [facility] [address] [place] [address] documented in this encounter Visit Diagnoses Not on filedocumented in this encounter
--- OUTSIDE RECORDS SUMMARY | 2022-01-29 01:37 | XMS_ITS | Encounter Summary ---
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 in Question)) - Closed Specialty Diagnoses / Procedures Referred By Contact Refer red To Contact Diagnoses Adnexal cyst Fluid in endometrial cavity Shantelle Ureña MD Procedures STRAIN TECHNICIAN US PELVIS TRANSVAGINAL [address] [place] [address] [address] [place] [address] Referral ID Status Reason Start Date Expiration Date Visits Requ ested Visits Authorized [id number] Closed 12/23/2015 1 1 Reason for Visit Reason Comments Advice Only possible adnexal mass/cyst Encounter Details Date Type Department Care Team Description 12/23/2015 Initial consult [facility] Shantelle Ureña exal cyst (Primary Dx); Women's Services - MD Claudine Fluid in endometrial cavity [facility] [address] [place] [address] (Wo rk) Social History Tobacco [...] her sepsis, however she was transferred from [facility] to [facility] for ICU care requiring pressors and IV antibiotics. She recovered with those treatments and was subsequently discharged home without ever identifying the etiology of her sepsis. In follow- up, her PCP obtained a respite provider U/S at [facility] to evaluate the adnexal mass which again noted the mass but was unable to identify the source (hydrosalpinx vs ovarian cystic mass vs GI stricture) and she was subsequently referred back to [facility] for another U/S and consult with Gynecology. Overall, the patient reports that she feels quite well and has recovered from her hospitalization inJune. She has no specific complaints at this time and denies any fevers/chills, chest pain, respiratory symptoms, abdominal pain, N/V, changes in bowel/bladder function, vaginal discharge, vaginal bleed ing/spotting, pelvic pain or other complaints. Professional Services Consultant History: OB History Para Term AB TAB [...] file Social History Narrative Review of Systems STRAIN TECHNICIAN ROS Complete: negative Foundry Engineer Objective: Visit Vitals ??? BP 102/84 (BP [...] back in 6 months time for a STRAIN TECHNICIAN ultrasound which I have taken the [...] Name Priority Date/Time Associated Diagnosis Comme nts STRAIN TECHNICIAN US PELVIS Routine 06/21/2016 9:18 Adnexal cyst Results for this TRANSVAGINAL EDT Fluid in endometrial procedu re are in cavity the results section. documented in this encounter Results STRAIN TECHNICIAN US PELVIS TRANSVAGINAL (06/21/2016 9:18 EDT) Anatomical Region Laterality Modality Other Specimen Narrative [facility] RADIOLOGY MATERNAL FE [facility] MEDICINE ACC [...] normal. No free fluid visualized . Impression Transvaginal(23071) and Transabdominal L imited (62554)pelvic US 1. Uterus with normal appearing myometri [...] normal. No free fluid visualized . Impression Transvaginal(20343) and Transabdominal L imited (98495)pelvic US 1. Uterus with normal appearing myometri [...] pursue any further testing at this ti nh. Discussed possibility of endometrial biopsy, Ca-125 as [...] Organization Address City/State/ZIP Code Phon e Number [facility] RADIOLOGY MATERNAL MEDICINE ACC [...] documented as of this encounter Care Teams Crystal Slicer Relationship Specialty Start Date End Date Dacia Hendrix MD PCP - General 12/23/15 06/16/17 [address] [place] [address] documented as of this encounter
--- OUTSIDE RECORDS SUMMARY | 2022-01-29 01:37 | XMS_ITS | Encounter Summary ---
:1940 Author Organization [facility] Address [address] [place] [address] Care Team Providers Name Role Phone Fabiano Aranda MD Primary Care Provider Encounter Details Date Type Department Care Team Description 02/23/2010 Orders Only [facility] Lino Ashton MS Family history of Hematology & Oncology [address] [facility] [place] [address] (Primary Dx) [address] [facility] [place] [place] [address] [phone] Social History Tobacco Use Types Packs/Day Years Used Date Never Assessed Sex Assigned at Date Recorded Not on file documented as of this encounter Plan of Treatment Not on filedocumented as of this encounter Results FAP KNOWN MUTATION (02/23/2010 15:46 EST) Specimen Blood [facility] Specimen ID [id number] [facility] Order Date 24 Feb [...] based on GenBank ? accession number; [id number]. ? 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 The [...] donors will interfere ? with testing. Call [facility] for ? instructions for testing pat ients who have received a bone ? marrow transplant. ? This test was developed and its performance characteristics ? determined by Laboratory Med icine and Pathology, [facility]. This test has not be en cleared or approved by the ? U.S. Food and Drug Administr ation. ? Reviewed By PANDA Silva MD ? LAB Release Date 09 Mar 2010 10:28 [facility] Performed or Referred by: [facility] Dpt of Lab Med and Path, [address] LAB ?? [place] [address], Lab Dir: Myles gandhi III, MD Specimen Blood specimen (specimen) Performing Organization Address City/State/ZIP Code Phon e Number [facility] LABORATORY [address] [place] [address] SERVICES [facility] [address] [place] [address] documented in this encounter Visit Diagnoses Diagnosis Family history of genetic disease - Prim marycruz Family history of other condition documented in this encounter Care Teams Ground Crew Lines Person Relationship Specialty Start Date End Date Fabiano Aranda MD PCP - General 02/20/10 09/02/[address] [place] [address] [address] [place] [address] documented as of this encounter
--- OUTSIDE RECORDS SUMMARY | 2022-01-29 01:37 | XMS_ITS | Encounter Summary ---
:1940 Author Organization [facility] Address [address] [place] [address] Care Team Providers Name Role Phone Jodi Camp MD Primary Care Provider Reason for Visit Reason Onset Date Comments Procedure 10/20/2015 schedule echo Follow-up 10/27/2015 Appt /follow up Encounter Details Date Type Department Care Team Description 10/20/2015 Telephone [facility] Juhi Moncada RN Proc edure (schedule Cardiology - Amber echo); Follow-up (Appt [address] /follow up) [place] [address] Social History Tobacco Use Types Packs/Day Years [...] on filedocumented in this encounter Care Teams Client Professional Relationship Specialty Start Date End Date Jodi Camp MD PCP - General 09/03/15 12/22/[address] [address] documented as of this encounter
--- OUTSIDE RECORDS SUMMARY | 2022-01-29 01:37 | XMS_ITS | Encounter Summary ---
:1940 Author Organization [facility] Address [address] [place] [address] Care Team Providers Name Role Phone YobaniNayan Pedro HARRISON Primary Care Provider Manuel Isaacs MD Primary Care Provider Encounter Details Date Type Department Care Team Description 10/24/2019 Lab Requisition [facility] Jamie Jean-Baptiste E ncounter for other Pathology & general examination Laboratory Medicine [address] [place] [address] [address] [place] [address] [place], [place] [address] Social History Tobacco Use Types Packs/Day Years [...] expression of MLH1, PMS2, MSH2 and MSH6 [facility] Addendum Addendum CENTER electronically INTERPRETATION: [...] 1152 ANTIBODY (CLONE) (BLOCK): RESULT MLH1 (M1, [place]) (block A-3): Retained expression in tumor PMS2 (A16-4, [place]) (block A-3): Retained expression in tumor MSH2 ([id number], [place]) (block A-3): Retained expres bettina in tumor MSH6 (SP93, [place]) (block A-3): Retained expression in tumor Internal [...] performance characteristics have been determined by [facility] and/or by the referring laboratory. The positive and negative controls worked appropriately. This laboratory is certified under the Clinical Labor atory Improvement Amendments of 1988 (CLIA-88) as qualified to perform high complexity clinical laboratory testing. Final Diagnosis A. COLON, SIGMOID,MASS, BIOPSY: [facility] Electronically - Invasive adenocarcinoma, moderately differenti ated, colorectal primary CENTER signed by Keyonna, - See comment. LABORATORY Cecilia Morgan MD on SERVICES 10/26/2019 at 16 44 B. COLON, SIGMOID, POLYP, BIOPSY: - Hyperplastic polyp Attestation There was significant [facility] Electr onically resident/fellow CENTER signed [...] this case to further characterize the lesion. [facility] ANTIBODY(CLONE)(BLOCK):RESULT CENTER CK7 (RN7, Leica) [...] characteristics have been de termined by [facility] and/or by the referring laboratory. The [...] a separate report. 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 Received in formalin labe lled with proper patient identification (initials H, I) and A. Sigmoid mass Bxs is an aggregate of firm pale pate focally brown tissue (1.4 x 1.3 x 0.3 cm). Entirely submitted in A1-A4. [facility] CENTER B. Received in formalin labe lled with proper patient identification (initials H, I) and B. Sigmoid polyp are three firm pale pate focally pate tissues (0.3 x 0.2 x 0.1 cm to 0.2 x 0.2 x 0.2 cm). Entirely submitted in B1. LABORATORY SERVICES Dharmesh Yousif 10/25/2019 8:37 Resident/Fellow: Reinier Torres MD [facility] LABORATORY SERVICES Scanned Images [facility] LABORATORY SERVICES Specimen Tissue - Colon, Polyp Tissue specimen (specimen) - Colon, Poly p Performing Organization Address City/State/ZIP Code Phon e Number [facility] LABORATORY [address] [place] [address] SERVICES documented in this encounter Visit Diagnoses Diagnosis Encounter for other general examination documented in this encounter Care Teams Cellophane Wrapping Examiner Relationship Specialty Start Date End Date Nayan Hilton DO PCP - General 06/17/17 04/01/20 Manuel Isaacs MD PCP - General 04/02/[address] [place] [phone] documented as of this encounter
--- OUTSIDE RECORDS SUMMARY | 2022-01-29 01:37 | XMS_ITS | Encounter Summary ---
:1940 Author Organization [facility] Address [address] [place] [address] Care Team Providers Name Role Phone YobaniNayan Pedro HARRISON Primary Care Provider Manuel Isaacs MD Primary Care Provider Encounter Details Date Type Department Care Team Description 10/16/2019 Lab Requisition [facility] Dank Arciniega Ot her specified Pathology & MD disorders of bladder Laboratory Medicine [address] [place] [address] [address] [place], [place] [id number] [place] [address] [id number] Social History Tobacco Use Types Packs/Day Years [...] Priority Date/Time Associated Diagnosis Comme nts NON BUGGY MAN/FNA Today 10/16/2019 11:09 Results for this CYTOLOGY EDT procedure are i n the results section. documented in this encounter Results NON BUGGY MAN/FNA CYTOLOGY (10/16/2019 11:09 EDT) Final Diagnosis URINE, BARBOTAGE, CYTOLOGIC EVALUATION: [facility] Electronically - Atypical urothelial cells. See comment. CENTER signed by FLOYD Luciano MD on SERVICES 10/17/2019 at 15 28 Attestation There was significant reside nt/fellow involvement in the diagnostic evaluation of this case. [facility] Electronically By the signature below, the attending physician certifies that they have personally conducted a gross and/or microscopic CENTER signed by Mustapha, examination of the described specimens and rendered or confirmed the above diagnosis. LABORATORY Alona Waggoner MD on SERVICES 10/17/2019 at 15 28 Diagnosis Comment Cytologic evaluation [facility] reveals several CENTER groups of atypical [...] advised. Clinical History N32.89 - Mass of [facility] urinary bladder. 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 [facility] LABORATORY SERVICES Resident/Fellow: Marcus Serrano DO [facility] LABORATORY SERVICES Scanned Images [facility] LABORATORY SERVICES Specimen [id number] - Urine specimen (specimen) Performing Organization Address City/State/ZIP Code Phon e Number [facility] LABORATORY [address] [place] [address] SERVICES documented in this encounter Visit Diagnoses Diagnosis Other specified disorders of bladder documented in this encounter Care Teams Director Of Online Merchandising Relationship Specialty Start Date End Date Nayan Hilton DO PCP - General 06/17/17 04/01/20 Manuel Isaacs MD PCP - General 04/02/[address] [place] [phone] documented as of this encounter
[2022-01-29] MEDS: Normal Saline Flush 10 ML SYR IVP (08:05)
[2022-01-29 08:20] LABS: Abs Immature Grans 0.01 10^3/uL (0.0-0.06); Absolute Basophil Count 0.05 10^3/uL (0.0-0.2); Absolute Eosinophil Count 0.25 10^3/uL (0.0-0.7); Absolute Lymphocyte Count 1.68 10^3/uL (1.2-3.4); Absolute Monocyte Count 0.78 10^3/uL (0.1-0.8); Basophils % 0.9; Eosinophils % 4.3; HCT 40.5 % (36.0-46.0); HGB 13.1 g/dL (11.2-15.7); Immature Grans % 0.2; Lymphocytes % 29.1; MCH 33.2 pg (27.0-33.0); MCHC 32.3 % (32.0-36.0); MCV 103 fL (80-95); MPV 9.7 fL (8.0-11.0); Monocytes % 13.5; Platelet Count 206 10^3/uL (130-400); RBC 3.95 10^6/uL (3.93-5.22); RDW 14.7 % (11.7-14.6); RDW-SD 55.3 fL; WBC 5.77 10^3/uL (4.4-10.8)
[2022-01-29 08:36] LABS: ALT 35 U/L (14-59); AST 31 U/L (15-37); Albumin 3.3 g/dL (3.4-5.0); Alkaline Phosphatase 99 U/L (46-116); Anion Gap 5.1 mmol/L (3-11); BUN 19 mg/dL (7-18); Bilirubin, Total 0.3 mg/dL (0.2-1.0); CO2 28.9 mmol/L (21.0-32.0); CREATININE 0.9 mg/dL (0.55-1.02); Calcium 9.5 mg/dL (8.5-10.1); Chloride 107 mmol/L (98-107); Estimated GFR 65.03 (mL/min/1.73m2); Glucose 101 mg/dL (74-106); Potassium 3.9 mmol/L (3.5-5.1); Sodium 141 mmol/L (136-145); Total Protein 7.4 g/dL (6.4-8.2)
[2022-01-29 19:53] LABS: CEA 4.5 ng/mL (See Note)
== END 2022-02-01 23:59 | disposition home or self-care (01) ==
LOC: INF 01:20
PROVIDERS: Visit Provider Internal Medicine Hematology & Oncology
DX: C18.9 Malignant neoplasm of colon, unspecified (principal); Z45.2 Encounter for adjustment and management of vascular access device
CPT/HCPCS: 36591; 80053; 82378; 85025

== ENCOUNTER 2022-02-19 01:05 | Outpatient (RCR) | payer MEDICARE, SELFPAY ==
--- OUTSIDE RECORDS SUMMARY | 2022-02-19 01:07 | XMS_ITS | Continuity of Care Document ---
:1940 Author Organization [facility] Address [address] [place] [address] Care Team Providers Name Role Phone Ferny Manuel Primary Care Physician [facility] 02[facility]10[facility]22 - 02/10/22 [facility] [address] [place] [address] Encounter Diagnosis Malignant neoplasm of colon, unspecified (Final) - Discharge Disposition: Home or Self Care Attending Physician: Maricarmen Pritchett APRN Admitting Physician: Maricarmen Pritchett APRN Referring Physician: Maricarmen Pritchett APRN Allergies, Adverse Reactions, Alerts Substance Reaction Severity Status SHELLFISH DERIVED1 Unknown Active sulfa drugs Skin rash Unknown Active 1pt states the became flushed and swollen after eating oysters Immunizations Given and Recorded Vaccine Date Status Refusal Reason influenza, unspecified formulation 01/03/21 Recorded influenza, unspecified formulation 01/04/20 Recorded influenza, unspecified formulation 01/25/19 Recorded influenza, unspecified formulation 12/29/17 Recorded influenza, unspecified formulation 01/03/14 Recorded SARS-CoV-2 (COVID-19) mRNA-1273 vaccine 06/18/20 Recorded SARS-CoV-2 (COVID-19) mRNA-1273 vaccine 05/21/20 Recorded pneumococcal 23-polyvalent vaccine 01/28/18 Recorded zoster vaccine, inactivated 09/02/17 Recorded zoster vaccine, inactivated 06/16/17 Recorded pneumococcal 13-valent conjugate vaccine 01/18/17 Recorde d influenza virus vaccine, live 02/04/16 Recorded tetanus/diphth/pertuss (Tdap) adult/adol 03/22/12 Recorde d tetanus/diphth/pertuss (Tdap) adult/adol 08/31/11 Recorde d zoster vaccine live 08/31/11 Recorded Medications tolterodine 4 mg oral capsule, extended release 4 mg = 1 cap, Oral, BID, # 180 cap, 3 Refill(s), Pharmacy: [facility] Start Date: 09/02/21 Stop Date: 08/28/22 Status: Ordered Problem List Condition Confirmation Course Effective Dates Status Health I nformant Status History of Confirmed Active adenomatous polyp of colon Hyperlipidemia Confirmed Active Hypothyroidism Confirmed Active Malignant tumor of Confirmed 01/04/20 Active colon Nasal sinus problem Confirmed Active Obstructive sleep Confirmed Active apnea syndrome Urge incontinence of Confirmed Active urine Venous insufficiency Confirmed 07/28/18 Active of leg Procedures Procedure Date Related Diagnosis Body Site Status Insertion of implantable venous access 05/19/21 Completed port Laparoscopy with biopsy 02/17/21 Comp leted Ileostomy1 12/25/19 Completed Laparotomy2 12/25/19 Completed Shave biopsy of skin lesion3 12/01/16 Completed Colonoscopy4 04/03/13 Completed Tonsillectomy Completed 1Ileostomy reversal.2exploratory laparotomy, extensive lysis of adhesions, enterectomy with anastomosis creation.3Upper [id number] colon polyp - next due 2019 diverticulosis Social History Social History Type Response Smoking Status Smoking tobacco use: Never t obacco user; Never entered on: 08/27/21 Sex Female Patient Care team information Care Team PersonnelName: Manuel Isaacs MD Position: Physician Member Role: Primary Care Physician Address: Address: [address] [address]- [place] Care Team Related PersonsName: MIKHAIL CUNHA Address: Home
--- OUTSIDE RECORDS SUMMARY | 2022-02-19 01:07 | XMS_ITS ---
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 Treatment Medications Current Day (Day 1, Cycle 17 Next Day (Day 3, Cycle - Planned for 02/19/2022) 17 - Planned f or 02/21/2022) fluorouraciL fluorouraciL (ADRUCIL) chemo Home Infusi on: Pump (ADRUCIL)fluorouraciL (AdruciL) injection 249 mgfluorouraciL Disconnect in sodium chloride 0.9% 138 mL (AdruciL) in sodium chloride infusion (46 Hour - For Home 0.9% 138 mL infusion (46 Use)leucovorin (Wellcovorin) in Hour - For Home Use) 2,244 dextrose 5% or sodium chloride mgleucovorin 350 mg in 0.9% for infusionOXALIplatin dextrose 5% 85 mL infusion (Eloxatin) in dextrose 5% 250 mL infusionPump Disconnect: Home Infusion Past Plans No past plan information found. Radiation Treatments No radiation treatments are documented for this patient in [facility]. Treatments may have been administered in another system.
--- OUTSIDE RECORDS SUMMARY | 2022-02-19 01:07 | XMS_ITS | Encounter Summary ---
:1940 [place] [address] Care Team Providers Name Role Phone None Primary Care Provider Unavailable Encounter Details Date Type Department Care Team Description 02/19/2022 Infusion Hematology Oncology at [address] [phone] Social History Tobacco Use Types Packs/Day Years Used Date Smoking Tobacco: Never Smokeless Tobacco: Never Sex Assigned at Date Recorded Not on file documented as of this encounter Plan of Treatment Upcoming Encounters Date Type Specialty Care Team Description 02/19/2022 Scheduled View Only Hematology and Aaron Romero MD [facility] [place] [address] Oncology Maricarmen Payton, [address] HEMATOLOGY AND ONGOLOCY [place], [place] [phone] 02/19/2022 TH Visit (TeleHealth) Hematology and Michael Romero Oncology [facility] [address] [place], [place] [address] (Wo rk) documented as of this encounter Visit Diagnoses Not on filedocumented in this encounter Care Teams Blending Plant Operator Relationship Specialty Start Date End Date None PCP - General 12/03/19 None documented as of this encounter
--- OUTSIDE RECORDS SUMMARY | 2022-02-19 01:07 | XMS_ITS | Encounter Summary ---
:1940 [place] [address] Care Team Providers Name Role Phone None Primary Care Provider Unavailable Encounter Details Date Type Department Care Team Description 02/10/2022 Ancillary Procedure Radiology Library at Jorge Romero [facility] [place] [address] ONCOLOGY [phone] [place], [place] 0[address] (Wo rk) Social History Tobacco Use Types Packs/Day Years Used Date Smoking Tobacco: Never Smokeless Tobacco: Never Sex Assigned at Date Recorded Not on file documented as of this encounter Plan of Treatment Upcoming Encounters Date Type Specialty Care Team Description 02/19/2022 Scheduled View Only Hematology and Aaron Romero MD [facility] [address] Oncology Maricarmen Payton[address] [place] [address] 02/19/2022 TH Visit (TeleHealth) Hematology and Michael Romero Oncology [facility] [address] [place], [place] [address] (Wo rk) 02/19/2022 Infusion Hematology and Oncology documented as of this encounter Procedures Procedure Name Priority Date/Time Associated Diagnosis Comme nts FILM LIBRARY Routine 02/10/2022 12:00 AM Results for this STORAGE ONLY CT EST procedure ar e in CHEST ABDOMEN the results PELVIS section. documented in this encounter Results Film Library- Storage Only CT Chest Abdomen Pelvis (02/10/2022 12:00 AM EST) Specimen (Source) Anatomical Location Collection Method / Collectio n Time Received Time / Laterality Volume Narrative BHARTI - 02/17/2022 10:54 AM EST This exam is auto-finalizing. It's purpo se is for storage only. Michael Romero MD IMJose FILM LIBRARY ORDERABLES Performing Organization Address City/State/ZIP Code Phon e Number [place], [place] documented in this encounter Visit Diagnoses Not on filedocumented in this encounter Care Teams Electroplater Relationship Specialty Start Date End Date None PCP - General 12/03/19 None documented as of this encounter
--- OUTSIDE RECORDS SUMMARY | 2022-02-19 01:08 | XMS_ITS | Encounter Summary ---
:1940 [place] [address] Care Team Providers Name Role Phone None Primary Care Provider Unavailable Encounter Details Date Type Department Care Team Description 07/22/2021 Ancillary Procedure Radiology Library Michael Romero Canceled (D-SCHED at [facility] MD Indy ERROR / CORRECTION ) [facility] [address] [place] [place] ONCOLOGY [address] [place], [place] [phone] [address] Social History Tobacco Use Types Packs/Day Years Used Date Smoking Tobacco: Never Smokeless Tobacco: Never Sex Assigned at Date Recorded Not on file documented as of this encounter Plan of Treatment Upcoming Encounters Date Type Specialty Care Team Description 02/19/2022 Scheduled View Only Hematology and Aaron Romero MD [facility] [place] [address] Oncology Maricarmen Payton[address] [address] 02/19/2022 TH Visit (TeleHealth) Hematology and Michael Romero Oncology [facility] ONCOLOGY [place], [place] [address] (Wo rk) 02/19/2022 Infusion Hematology and Oncology documented as of this encounter Visit Diagnoses Not on filedocumented in this encounter Care Teams Novelty Maker Relationship Specialty Start Date End Date None PCP - General 12/03/19 None documented as of this encounter
--- OUTSIDE RECORDS SUMMARY | 2022-02-19 01:08 | XMS_ITS | Encounter Summary ---
:1940 Author Organization [facility] [address] Care Team Providers Name Role Phone None Primary Care Provider Unavailable Reason for Visit Reason Comments IV Access Port flush only Encounter Details Date Type Department Care Team Description 07/10/2021 Infusion Hematology Oncology at [facility] colon cancer with [facility] metastasis to other site [address] [place] [phone] Social History Tobacco Use Types [...] low ANC IV ACCESS: Mediport accessed by [facility] BLOOD RETURN: yes ANY S/S OF INFECTION/EXTRAVASATIONS: no signs of IV complications observed IV FLUSHED WITH: 20cc NS and 500 units Heparin IV DISCONTINUED: yes ASSESSMENT: Patient tolerated treatment well. PLAN: Return to clinic per routine. 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
--- OUTSIDE RECORDS SUMMARY | 2022-02-19 01:08 | XMS_ITS | Encounter Summary ---
:1940 Author Organization [facility] Address [facility] [place] [address] Care Team Providers Name Role Phone None Primary Care Provider Unavailable Encounter Details Date Type Department Care Team Description 11/20/2021 Orders Only Hematology [facility] at [place] Protein-calorie [facility] RN malnutrition, [address] [place] [address] [place] [phone] Social History Tobacco Use Types Packs/Day Years Used Date Smoking Tobacco: Never Smokeless Tobacco: Never Sex Assigned at Date Recorded Not on file documented as of this encounter Plan of Treatment Upcoming Encounters Date Type Specialty Care Team Description 02/19/2022 Scheduled View Only Hematology and Aaron Romero MD [facility] [place] [address] Oncology Maricarmen Payton SEARCH SPECIALIST [address] [place] [address] [place]OLOGY AND [place], [place] [phone] 02/19/2022 TH Visit (TeleHealth) Hematology and Michael Romero Oncology MD [facility] DR [place], [place] [address] (Wo rk) 02/19/2022 Infusion Hematology and Oncology documented as of this encounter Visit Diagnoses Diagnosis Protein-calorie malnutrition, unspecifie d severity Adenocarcinoma of small intestine, stage 4 Malignant neoplasm of small intestine, u nspecified site documented in this encounter Care Teams Manager Intranet Relationship Specialty Start Date End Date None PCP - General 12/03/19 None documented as of this encounter
--- OUTSIDE RECORDS SUMMARY | 2022-02-19 01:08 | XMS_ITS | Encounter Summary ---
:1940 Author Organization [facility] Address [address] [facility] [place] [address] Care Team Providers Name Role Phone None Primary Care Provider Unavailable Encounter Details Date Type Department Care Team Description 11/20/2021 Unscheduled Hematology/Oncology Lissy Luna, Primar y colon Encounter at [facility] RD cancer with [facility] [address] [facility] metastasis to other [place], [place] [address] site [address] HEMATOLOGY AND [phone] [place] [address] Social History Tobacco Use Types Packs/Day Years Used Date Smoking Tobacco: Never Smokeless Tobacco: Never Sex Assigned at Date Recorded Not on file documented as of this encounter Progress Notes Cheryl Yuan E, RD - 11/20/2021 11:[address] [facility] Initial Assessment Patient Name: Joy Armstrong Diagnosis: [...] She lives at home with her in [place]. She reports her appetite is poor and her portions have become smaller over the last few months since she started treatment on folfox. She used to drink Boost once daily and would like to have this again. Patient has [place] Medicaid which should cover the cost of this. Nutrition Diagnosis 11/20/2021 Problems Involuntary weight loss related to appetite changes and diagnosis of metastatic colorectal cancer as evidenced by 6# weight loss in the past month (3.3% body weight). 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
--- OUTSIDE RECORDS SUMMARY | 2022-02-19 01:08 | XMS_ITS | Encounter Summary ---
:1940 Author Organization [facility] [place] [address] Care Team Providers Name Role Phone None Primary Care Provider Unavailable Encounter Details Date Type Department Care Team Description 08/07/2021 Office Visit Hematology/Oncology Mckenna Farris, Prim marycruz colon cancer with metastasis to other site; at [facility] DIGITIZER OPERATOR Metastasis from colon cancer [address] [facility] [address] [place] MEDICAL [place]COLOG [place] [address] [place], [place] [phone] (Wo rk) Social History Tobacco Use Types [...] in this encounter Progress Notes Mckenna Farris, DIGITIZER OPERATOR - 08/07/2021 11:30 AM EDT Subjective Patient [...] because of significant intra abdominal adhesions Path ([facility] review) - Omentum, mass, excision: [...] complaints today. Soc Hx: , lives in [place], [place] Tob - Never Etoh - None Worked as [employer] [email or web address]. 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
--- OUTSIDE RECORDS SUMMARY | 2022-02-19 01:08 | XMS_ITS | Encounter Summary ---
:1940 [place] [address] Care Team Providers Name Role Phone None Primary Care Provider Unavailable Encounter Details Date Type Department Care Team Description 11/06/2021 Office Visit Hematology/Oncology Michael Romero Stage IV adenocarcinoma at [facility] MD [place] of small bowel [address] [place] [phone] ONCOLOGY [phone] [place] [phone] Social History Tobacco Use Types Packs/Day Years [...] because of significant intra abdominal adhesions Path ([facility] review) - Omentum, [...] pounds lower. Soc Hx: , lives in [place], [place] Tob - Never Etoh - None Worked as [employer] and [employer] [place] [email or web address]. Fam Hx: Father - Mother - breast [...] in the pelvis. She was seen at [facility] and underwent resection on 12/05/2019 - path [...] View Only Hematology and Aaron Romero MD [facility] [place] [address] Oncology Maricarmen Payton[address] [place] [address] 02/19/2022 TH Visit (TeleHealth) Hematology and Michael Romero Oncology [facility] ONCOLOGY [place], [place] 0[address] (Wo rk) 02/19/2022 Infusion Hematology and Oncology documented as of this encounter Visit Diagnoses Diagnosis Stage IV adenocarcinoma of small bowel Malignant neoplasm of small intestine, u nspecified site Adenocarcinoma of small intestine, stage 4 Malignant neoplasm of small intestine, u nspecified site documented in this encounter Care Teams Screedman Relationship Specialty Start Date End Date None PCP - General 12/03/19 None documented as of this encounter
--- OUTSIDE RECORDS SUMMARY | 2022-02-19 01:08 | XMS_ITS | Encounter Summary ---
:1940 [place] [address] Care Team Providers Name Role Phone None Primary Care Provider Unavailable Encounter Details Date Type Department Care Team Description 10/09/2021 Office Visit Hematology/Oncology Michael Romero Adeno carcinoma of small at [facility] MD Indy intestine, stage 4 [address] [facility] [address] ONCOLOGY [phone] [place], [place] [address] Social History Tobacco Use Types [...] because of significant intra abdominal adhesions Path ([facility] review) - Omentum, mass, excision: - Metastatic [...] is stable. Soc Hx: , lives in [place], [place] Tob - Never Etoh - None Worked as [employer] [place] [employer]. Fam Hx: Father - Mother - breast [...] the pelvis. She was seen at [facility] and underwent resection on 12/05/2019 - path [...] View Only Hematology and Aaron Romero MD [facility] [place] [address] Oncology Maricarmen Payton[address] [place] [address] 02/19/2022 TH Visit (TeleHealth) Hematology and Michael Romero Oncology [facility] ONCOLOGY [place], [place] 0[address] (Wo rk) 02/19/2022 Infusion Hematology and Oncology documented as of this encounter Visit Diagnoses Diagnosis Adenocarcinoma of small intestine, stage 4 Malignant neoplasm of small intestine, u nspecified site Adenocarcinoma of small intestine, stage 4 Malignant neoplasm of small intestine, u nspecified site documented in this encounter Care Teams Informatica Relationship Specialty Start Date End Date None PCP - General 12/03/19 None documented as of this encounter
--- OUTSIDE RECORDS SUMMARY | 2022-02-19 01:08 | XMS_ITS | Encounter Summary ---
:1940 Author Organization [facility] [place] [address] Care Team Providers Name Role Phone None Primary Care Provider Unavailable Reason for Visit Reason Comments Chemotherapy Cycle 15, Day 1 Treatment/Therapy Plan Authorization (Routine) - Authorized Specialty Diagnoses / Procedures Referred By Contact Refer red To Contact Diagnoses Primary colon cancer with metastasis to other site Michael Romero MD Stj Hem Onc Infusion Procedures [facility] AMB ONC GI COLORECTAL CANCER - FOLFOX-6 (14 DAY) [address] [place] [phone] Fax: Referral ID Status Reason Start Date Expiration Date Visits V isits Requested Authorized [id number] Authorized 05/08/2021 02/26/2022 99 99 Encounter Details Date Type Department Care Team Description 01/01/2022 Infusion Hematology Oncology at [facility] colon cancer with [facility] metastasis to other site [address] [place] [address] [phone] Social History Tobacco Use Types [...] OBJECTIVE LAB DATA: Labs done today at [facility] reviewed and found adequate for treatment. IV [...] View Only Hematology and Aaron Romero MD [facility] [place] [address] Oncology Maricarmen Payton[address] [place] [address] 02/19/2022 TH Visit (TeleHealth) Hematology and Michael Romero Oncology [facility] ONCOLOGY [place], [place] [address] (Wo rk) 02/19/2022 Infusion Hematology [...] Routine documented in this encounter Care Teams Customer Advisor Specialist Relationship Specialty Start Date End Date None PCP - General 12/03/19 None documented as of this encounter
--- OUTSIDE RECORDS SUMMARY | 2022-02-19 01:08 | XMS_ITS | Encounter Summary ---
:1940 Author Organization [facility] Address [facility] [address] [place] [address] Care Team Providers Name Role Phone None Primary Care Provider Unavailable Encounter Details Date Type Department Care Team Description 11/20/2021 Orders Only Hematology and Michael Romero, Protein -calorie Oncology at [facility] malnutrition, [facility] uns pecified [place] [address] ONCOLOGY [phone] [place], [place] [address] Social History Tobacco Use Types Packs/Day Years Used Date Smoking Tobacco: Never Smokeless Tobacco: Never Sex Assigned at Date Recorded Not on file documented as of this encounter Plan of Treatment Upcoming Encounters Date Type Specialty Care Team Description 02/19/2022 Scheduled View Only Hematology and Aaron Romero MD [facility] [place] [address] Oncology Maricarmen Payton[address] [place] [address] 02/19/2022 TH Visit (TeleHealth) Hematology Michael Ang Oncology [facility] [address] SHANDA [place], [place] [address] (Wo rk) 02/19/2022 Infusion Hematology and Oncology documented as of this encounter Visit Diagnoses Diagnosis Protein-calorie malnutrition, unspecifie d severity Adenocarcinoma of small intestine, stage 4 Malignant neoplasm of small intestine, u nspecified site documented in this encounter Care Teams Bar Pilot Relationship Specialty Start Date End Date None PCP - General 12/03/19 None documented as of this encounter
--- OUTSIDE RECORDS SUMMARY | 2022-02-19 01:08 | XMS_ITS | Encounter Summary ---
:1940 Author Organization [facility] [place] [address] Care Team Providers Name Role Phone None Primary Care Provider Unavailable Reason for Visit Reason Comments IV Access Chemo held - Port Flush and De-Access Encounter Details Date Type Department Care Team Description 07/16/2021 Infusion Hematology Oncology at [facility] colon cancer with [facility] metastasis to other site [address] [place] [address] [phone] Social History Tobacco Use Types [...] Flush & De-Access (Chemo held) SUBJECTIVE Mrs. Huard is here for FOLFOX chemotherapy. She had [...] OBJECTIVE LAB DATA: Labs drawn today at [facility]. 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
--- OUTSIDE RECORDS SUMMARY | 2022-02-19 01:08 | XMS_ITS | Encounter Summary ---
:1940 [place] [address] Care Team Providers Name Role Phone None Primary Care Provider Unavailable Encounter Details Date Type Department Care Team Description 01/29/2022 Travel Social History Tobacco Use Types Packs/Day Years Used Date Smoking Tobacco: Never Smokeless Tobacco: Never Sex Assigned at Date Recorded Not on file documented as of this encounter Plan of Treatment Upcoming Encounters Date Type Specialty Care Team Description 02/19/2022 Scheduled View Only Hematology and Aaron Romero MD [facility] [place] [address] Oncology Maricarmen Payton[address] [place] [address] 02/19/2022 TH Visit (TeleHealth) Hematology and Michael Romero Oncology [facility] ONCOLOGY [place], [place] [address] (Wo rk) 02/19/2022 Infusion Hematology and Oncology documented as of this encounter Visit Diagnoses Not on filedocumented in this encounter Care Teams Research Pharmacist Relationship Specialty Start Date End Date None PCP - General 12/03/19 None documented as of this encounter
--- OUTSIDE RECORDS SUMMARY | 2022-02-19 01:08 | XMS_ITS | Encounter Summary ---
:1940 [place] [address] Care Team Providers Name Role Phone None Primary Care Provider Unavailable Encounter Details Date Type Department Care Team Description 06/28/2021 Telephone Hematology and Oncology at Nicolasa Goodson [facility] [place] [address] HEMATOLOGY/ONCOLOGY [phone] [place], [place] [address] (Wo rk) Social History Tobacco [...] oncology/hematology team. Nicolasa Quintana M.D. Hematology/Oncology Fellow [facility] Pager # [phone] 06/28/21, 12:10 PM documented in this encounter Plan of Treatment Upcoming Encounters Date Type Specialty Care Team Description 02/19/2022 Scheduled View Only Hematology and Aaron Romero MD [facility] [place] [address] Oncology Maricarmen Payton[address] [place] [address] 02/19/2022 TH Visit (TeleHealth) Hematology and Michael Romero Oncology [facility] [address] [place], [place] [address] (Wo rk) 02/19/2022 Infusion Hematology and Oncology documented as of this encounter Visit Diagnoses Not on filedocumented in this encounter Care Teams Help Desk Intern Relationship Specialty Start Date End Date None PCP - General 12/03/19 None documented as of this encounter
--- OUTSIDE RECORDS SUMMARY | 2022-02-19 01:08 | XMS_ITS | Encounter Summary ---
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 Soc Hx: , lives in [place], [place] Tob - Never Etoh - None Worked as [employer]. Fam Hx: Father - Mother - [...] 1.5 Doppler US, discussed with radiology - [facility] thrombosis Assessment & Plan Joy Armstrong [...] in the pelvis. She was seen at [facility] [...] I reviewed the Ct with radiology at [facility]. There does appear to be RIJ thrombus. [...] or new symptoms. Mckenna Farris MSN, PATIENT BILLER, AOCNP Medical Oncology documented in this encounter Plan of Treatment Upcoming Encounters Date Type Specialty Care Team Description 02/19/2022 Scheduled View Only Hematology and Aaron Romero MD [facility] [place] [address] Oncology Maricarmen Payton APRN [address] [place] [address] [place] [address] 02/19/2022 TH Visit (TeleHealth) Hematology and Michael Romero Oncology MD [facility] DR SH[place]DA [place], [place] 0[address] (Wo rk) 02/19/2022 Infusion Hematology and Oncology documented as of this encounter Visit Diagnoses Diagnosis Stage IV adenocarcinoma of small bowel Malignant neoplasm of small intestine, u nspecified site 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
--- OUTSIDE RECORDS SUMMARY | 2022-02-19 01:08 | XMS_ITS | Encounter Summary ---
:1940 Author Organization [facility] [place] [address] Care Team Providers Name Role Phone None Primary Care Provider Unavailable Reason for Visit Reason Comments Chemotherapy FOLFOX (Modified - no bolus) Treatment/Therapy Plan Authorization (Routine) - Authorized Specialty Diagnoses / Procedures Referred By Contact Refer red To Contact Diagnoses Primary colon cancer with metastasis to other site Michael Romero MD Stj Hem Onc Infusion Procedures [facility] AMB ONC GI COLORECTAL CANCER - FOLFOX-6 (14 DAY) [address] [place] [phone] Fax: Referral ID Status Reason Start Date Expiration Date Visits V isits Requested Authorized [id number] Authorized 05/08/2021 02/26/2022 99 99 Encounter Details Date Type Department Care Team Description 09/11/2021 Infusion Hematology Oncology at [facility] colon cancer with [facility] metastasis to other site [address] [place] [address] [phone] Social History Tobacco Use Types [...] OBJECTIVE LAB DATA: Labs drawn today at [facility]. Reviewed and found adequate for treatment. [...] View Only Hematology and Aaron Romero MD [facility] [place] [address] Oncology Maricarmen Payton, [address] [place] [address] 02/19/2022 TH Visit (TeleHealth) Hematology and Michael Romero Oncology [facility] DR [place], [place] [address] (Wo rk) 02/19/2022 Infusion Hematology [...] Routine documented in this encounter Care Teams Insurance Agency Owner Relationship Specialty Start Date End Date None PCP - General 12/03/19 None documented as of this encounter
--- OUTSIDE RECORDS SUMMARY | 2022-02-19 01:08 | XMS_ITS | Encounter Summary ---
:1940 Author Organization [facility] [place] [address] Care Team Providers Name Role Phone None Primary Care Provider Unavailable Reason for Visit Reason Comments Chemotherapy C4D1 Folfox Treatment/Therapy Plan Authorization (Routine) - Authorized Specialty Diagnoses / Procedures Referred By Contact Refer red To Contact Diagnoses Primary colon cancer with metastasis to other site Michael Romero MD Stj Hem Onc Infusion Procedures [facility] AMB ONC GI COLORECTAL CANCER - FOLFOX-6 (14 DAY) [address] [place] [phone] Fax: Referral ID Status Reason Start Date Expiration Date Visits V isits Requested Authorized [id number] Authorized 05/08/2021 02/26/2022 99 99 Encounter Details Date Type Department Care Team Description 07/24/2021 Infusion Hematology Oncology at [facility] colon cancer with [facility] metastasis to other site [address] [place] [address] [phone] Social History Tobacco Use Types [...] provided by [employer] PENG [place] offers no complaints, she met with Dr. Romero prior to infusion, ready for treatment. OBJECTIVE LAB DATA: Labs reviewed and found adequate for treatment. Pre administration: Chemotherapy orders independently verified for drug name, route, and dosage per patient's height, weight and BSA by Ifeanyi Baker, RN and Marion Leon RN and staff pharmacist At time of administration Patient identity verified using patient's name and date of at the chair/bedside by double RN check just prior to initiating the patient's home infusion chemotherapy via CADD pump provided by [employer]. Fluorouracil 3438 mg over 46 hours, IV [...] Aaron Romero MD [facility] [place] [address] Oncology Maricarmen Payton[address] [place] [address] 02/19/2022 TH Visit (TeleHealth) Hematology and Michael Romero Oncology [facility] [place]OG[place], [place] [address] (Wo rk) 02/19/2022 Infusion Hematology [...] Routine documented in this encounter Care Teams Remnant Sorter Relationship Specialty Start Date End Date None PCP - General 12/03/19 None documented as of this encounter
--- OUTSIDE RECORDS SUMMARY | 2022-02-19 01:08 | XMS_ITS | Encounter Summary ---
:1940 Author Organization [facility] [place] [address] Care Team Providers Name Role Phone None Primary Care Provider Unavailable Reason for Visit Reason Comments Chemotherapy Cycle 12, Day 1 Treatment/Therapy Plan Authorization (Routine) - Authorized Specialty Diagnoses / Procedures Referred By Contact Refer red To Contact Diagnoses Primary colon cancer with metastasis to other site Michael Romero MD Stj Hem Onc Infusion Procedures [facility] AMB ONC GI COLORECTAL CANCER - FOLFOX-6 (14 DAY) [address] [place] [phone] Fax: Referral ID Status Reason Start Date Expiration Date Visits V isits Requested Authorized [id number] Authorized 05/08/2021 02/26/2022 99 99 Encounter Details Date Type Department Care Team Description 11/20/2021 Infusion Hematology Oncology at [facility] colon cancer with [facility] metastasis to other site [address] [place] [phone] Social History Tobacco Use Types [...] by [employer] [place] offers no complaints. She met with Dr. Romero prior to infusion. 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 OBJECTIVE LAB DATA: Done today at [facility] for treatment. IV ACCESS: Implanted port [...] Only Hematology and Aaron Romero MD [facility] [place] [address] Oncology [address] Pay[address] [place] [address] 02/19/2022 TH Visit (TeleHealth) Hematology and Michael Romero Oncology MD [facility] ONCOLOGY [place], [place] 0[address] (Wo rk) 02/19/2022 Infusion Hematology [...] Routine documented in this encounter Care Teams Maintenance Manager Relationship Specialty Start Date End Date None PCP - General 12/03/19 None documented as of this encounter
--- OUTSIDE RECORDS SUMMARY | 2022-02-19 01:08 | XMS_ITS | Encounter Summary ---
:1940 [place] [address] Care Team Providers Name Role Phone None Primary Care Provider Unavailable Encounter Details Date Type Department Care Team Description 12/18/2021 Office Visit Hematology/Oncology Lissy Luna RD Primary colon cancer at [facility] with metastasis to [address] other site [place], [place] HEMATOLOGY AND [phone] ONCOLOGY [phone] [place], [place] [address] Social History Tobacco Use Types [...] not significant Estimated needs based on 78.3 [id number] kcals (25-30 kcal/kg) 78-101 g protein 1 [...] View Only Hematology and Aaron Romero MD [facility] [place] [address] Oncology Maricarmen Payton, [address] [address] 02/19/2022 TH Visit (TeleHealth) Hematology and Michael Romero , Oncology [facility] ONCOLOGY [place], [place] 0[address] (Wo rk) 02/19/2022 Infusion Hematology and Oncology documented as of this encounter Visit Diagnoses Diagnosis 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
--- OUTSIDE RECORDS SUMMARY | 2022-02-19 01:08 | XMS_ITS | Encounter Summary ---
:1940 Author Organization [facility] [place] [address] Care Team Providers Name Role Phone None Primary Care Provider Unavailable Reason for Visit Reason Comments Chemotherapy Cycle 6 folfox Treatment/Therapy Plan Authorization (Routine) - Authorized Specialty Diagnoses / Procedures Referred By Contact Refer red To Contact Diagnoses Primary colon cancer with metastasis to other site Michael Romero MD Stj Hem Onc Infusion Procedures [facility] COLORECTAL CANCER - FOLFOX-6 (14 DAY) [address] [place] [phone] Fax: Referral ID Status Reason Start Date Expiration Date Visits V isits Requested Authorized [id number] Authorized 05/08/2021 02/26/2022 99 99 Encounter Details Date Type Department Care Team Description 08/28/2021 Infusion Hematology Oncology at [facility] colon cancer with [facility] metastasis to other site [address] [place] [address] [phone] Social History Tobacco Use Types [...] INFUSION THERAPY ADMINISTRATION NOTES TIME TREATMENT STARTED: 0750 TIME TREATMENT ENDED: 1104 DIAGNOSIS: colon cancer [...] Romero MD [facility] [place] [address] Oncology Maricarmen Payton, NURSERY TECHNICIAN [address] [place] [address] [place] [address] 02/19/2022 TH Visit (TeleHealth) Hematology and Michael Romero Oncology [facility] DR SH[place]DA [place], [place] [address] (Wo rk) 02/19/2022 Infusion Hematology and [...] Routine documented in this encounter Care Teams Chain Carrier Relationship Specialty Start Date End Date None PCP - General 12/03/19 None documented as of this encounter
--- OUTSIDE RECORDS SUMMARY | 2022-02-19 01:08 | XMS_ITS | Encounter Summary ---
:1940 [place] [address] Care Team Providers Name Role Phone None Primary Care Provider Unavailable Encounter Details Date Type Department Care Team Description 10/20/2021 [facility] [address] [phone] Social History Tobacco Use [...] View Only Hematology and Aaron Romero MD [facility] [place] [address] Oncology Maricarmen Payton APRN [address] [place] [address] DR RAHMAN AND ONGOLOCY [place], [place] [address] 02/19/2022 TH Visit (TeleHealth) Hematology and Michael Romero Oncology [facility] DR [place]DA [place], [place] [address] (Wo rk) 02/19/2022 Infusion Hematology and Oncology documented as of this encounter Visit Diagnoses Not on filedocumented in this encounter Care Teams Tape Recorder Repairer Relationship Specialty Start Date End Date None PCP - General 12/03/19 None documented as of this encounter
--- OUTSIDE RECORDS SUMMARY | 2022-02-19 01:08 | XMS_ITS | Encounter Summary ---
:1940 Author Organization [facility] [place] [address] Care Team Providers Name Role Phone None Primary Care Provider Unavailable Reason for Visit Reason Comments IV Access Port flush Encounter Details Date Type Department Care Team Description 08/21/2021 Infusion Hematology Oncology at [facility] colon cancer with [facility] metastasis to other site [address] [place], [place] [phone] Social History Tobacco Use Types Packs/Day Years Used Date Smoking Tobacco: Never Smokeless Tobacco: Never Sex Assigned at Date Recorded Not on file documented as of this encounter Progress Notes Diann Baker RN - 08/21/2021 11:00 AM EDT INFUSION THERAPY ADMINISTRATION NOTES DIAGNOSIS: colorectal REASON FOR VISIT: MEDIPORT FLUSH ONLY due to neutropenia IV ACCESS: Mediport, accessed at [facility] for port draw GAUGE: 19G BLOOD RETURN: [...] View Only Hematology and Aaron Romero MD [facility] [place] [address] Oncology Maricarmen Payton APRN [address] [place] [address] [place] [address] 02/19/2022 TH Visit (TeleHealth) Hematology and Michael Romero , Oncology [facility] ONCOLOGY [place], [place] 0[address] (Wo rk) 02/19/2022 Infusion Hematology and Oncology documented as of this encounter Visit Diagnoses Diagnosis 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
--- OUTSIDE RECORDS SUMMARY | 2022-02-19 01:08 | XMS_ITS | Encounter Summary ---
:1940 Author Organization [facility] [place] [address] Care Team Providers Name Role Phone None Primary Care Provider Unavailable Reason for Visit Reason Comments Chemotherapy Cycle 14 5fu Treatment/Therapy Plan Authorization (Routine) - Authorized Specialty Diagnoses / Procedures Referred By Contact Refer red To Contact Diagnoses Primary colon cancer with metastasis to other site Michael Romero MD Stj Hem Onc Infusion Procedures [facility] AMB ONC GI COLORECTAL CANCER - FOLFOX-6 (14 DAY) [address] [place] [phone] Fax: Referral ID Status Reason Start Date Expiration Date Visits V isits Requested Authorized [id number] Authorized 05/08/2021 02/26/2022 99 99 Encounter Details Date Type Department Care Team Description 12/18/2021 Infusion Hematology Oncology at [facility] colon cancer with [facility] metastasis to other site [address] [place] [phone] Social History Tobacco Use Types [...] #: 14 REASON FOR VISIT: 5FU/leucovorin SUBJECTIVE oJy Armstrong offers no complaints. OBJECTIVE LAB DATA: [...] View Only Hematology and Aaron Romero MD [facility] [place] [address] Oncology Maricarmen Payton[address] [address] 02/19/2022 TH Visit (TeleHealth) Hematology and Michael Romero Oncology [facility] ONCOLOGY [place], [place] [address] (Wo rk) 02/19/2022 Infusion Hematology [...] Routine documented in this encounter Care Teams Bartender Helper Relationship Specialty Start Date End Date None PCP - General 12/03/19 None documented as of this encounter
--- OUTSIDE RECORDS SUMMARY | 2022-02-19 01:08 | XMS_ITS | Encounter Summary ---
:1940 Author Organization [facility] [place] [address] Care Team Providers Name Role Phone None Primary Care Provider Unavailable Encounter Details Date Type Department Care Team Description 09/11/2021 Office Visit Hematology/Oncology Viktoriya Álvarez colon cancer at [facility] B, CHEMICAL TANK WORKER with metastasis to [address] [place] [address] [place] [address] HEMATOLOGY/ONCOLOGY [phone] DEPT. [place], [place] [address] (Wo rk) Social History Tobacco [...] documented in this encounter Progress Notes Viktoriya Álvarez APRN - 09/11/2021 10:30 AM EDT Subjective Patient [...] because of significant intra abdominal adhesions Path ([facility] review) - Omentum, mass, excision: - Metastatic [...] the pelvis. ?? She was seen at [facility] and underwent resection on 12/05/2019 - path [...] in the absence of cold, laryngealdysesthesia, fatigue, angina/IA, hypersensitivity reactions and others.?She??was given informational handouts [...] - BRAF V600E mutation. Viktoriya Calabrese. Henri DNP, CHEMICAL TANK WORKER, AGACNP-BC, AOCNP, ACHPN Division of Hematology Oncology-Gastrointestinal Stone And Concrete WasherIndustrial Maintenance Technicianrelease specialist [facility] documented in this encounter Plan of Treatment Upcoming Encounters Date Type Specialty Care Team Description 02/19/2022 Scheduled View Only Hematology and Aaron Romero MD [facility] [place] [address] Oncology Maricarmen Payton, NICOLE [address] [place] [address] [place] [address] 02/19/2022 TH Visit (TeleHealth) Hematology and Michael Romero , Oncology [facility] ONCOLOGY [place], [place] [address] (Wo rk) 02/19/2022 Infusion Hematology and Oncology documented as of this encounter Visit Diagnoses Diagnosis 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
--- OUTSIDE RECORDS SUMMARY | 2022-02-19 01:08 | XMS_ITS | Encounter Summary ---
:1940 Author Organization [facility] Address [facility] [address] [place] [address] Care Team Providers Name Role Phone None Primary Care Provider Unavailable Reason for Visit Reason Onset Date Comments Follow-up 06/29/[address] of flu [place] when chemo complete Encounter Details Date Type Department Care Team Description 06/29/2021 Telephone Hematology/Oncology at [place] Leon RN Follow-up (Incorrect way [facility] when [address] [place] [address] Drive chemo complete) [place] [phone] Social History Tobacco Use Types Packs/Day Years [...] View Only Hematology and Aaron Romero MD [facility] [place] [address] Oncology Maricarmen Payton [address] [place] [address] 02/19/2022 TH Visit (TeleHealth) Hematology and Michael Romero Oncology [facility] [place]COLOGY [place], [place] [address] (Wo rk) 02/19/2022 Infusion Hematology and Oncology documented as of this encounter Visit Diagnoses Not on filedocumented in this encounter Care Teams Building Coordinator Relationship Specialty Start Date End Date None PCP - General 12/03/19 None documented as of this encounter
--- OUTSIDE RECORDS SUMMARY | 2022-02-19 01:08 | XMS_ITS | Encounter Summary ---
:1940 Author Organization [place] [address] Care Team Providers Name Role Phone None Primary Care Provider Unavailable Reason for Referral Diagnostic Test (Routine) - Authorized Specialty Diagnoses / Procedures Referred By Contact Refer red To Contact Radiology Diagnoses Stage IV adenocarcinoma of small bowel Michael Romero MD Procedures CT Chest Abdomen Pelvis w Contrast (Generic) [facility] [place] [address] Referral ID Status Reason Start Expiration Visits Visits Date Date Requested Authorized [id number] Authorized Specialty 11/20/2021 05/23/2023 1 1 Service Requested Encounter Details Date Type Department Care Team Description 11/20/2021 Office Visit Hematology/Oncology Michael Romero Stage IV adenocarcinoma at [facility] MD Indy of small bowel [address] [place] [phone] ONCOLOGY [phone] [place], [place] [address] Social History Tobacco Use Types [...] left today. Soc Hx: , lives in [place], [place] Tob - Never Etoh - None Worked as [employer]. Fam Hx: Father - Mother - breast [...] in the pelvis. She was seen at [facility] and underwent resection on [...] View Only Hematology and Aaron Romero MD [facility] [place] [address] Oncology Maricarmen Payton[address] [place] [address] 02/19/2022 TH Visit (TeleHealth) Hematology and Michael Romero Oncology MD [facility] [place]OGY [place], [place] 0[address] (Wo rk) 02/19/2022 Infusion Hematology and Oncology Scheduled Orders Name [...] site documented in this encounter Care Teams Sap Mobility Architect Relationship Specialty Start Date End Date None PCP - General 12/03/19 None documented as of this encounter
--- OUTSIDE RECORDS SUMMARY | 2022-02-19 01:08 | XMS_ITS | Encounter Summary ---
:1940 Author Organization [facility] [place] [address] Care Team Providers Name Role Phone None Primary Care Provider Unavailable Reason for Referral Diagnostic Test (Routine) - Authorized Specialty Diagnoses / Procedures Referred By Contact Refer red To Contact Radiology Diagnoses Adenocarcinoma of small intestine, stage 4 Michael Romero MD Procedures CT Chest Abdomen Pelvis w Contrast (Generic) [facility] [place] [address] Referral ID Status Reason Start Expiration Visits Visits Date Date Requested Authorized [id number] Authorized Specialty 09/25/2021 03/27/2023 1 1 Service Requested Encounter Details Date Type Department Care Team Description 09/25/2021 Office Visit Hematology/Oncology Michael Romero Adeno carcinoma of small at [facility] MD Indy intestine, stage [address] [place] [phone] ONCOLOGY [phone] [place], [place] [address] Social History Tobacco Use Types Packs/Day Years [...] and radiographic correlation is hence essential. Dr. Dvaid Roth has reviewed this case in consultationand [...] because of significant intra abdominal adhesions Path ([facility] review) - Omentum, mass, [...] the same. Soc Hx: , lives in [place], [place] Tob - Never Etoh - None Worked as [employer] and [employer]. Fam Hx: Father - Mother - breast [...] in the pelvis. She was seen at [facility] and underwent resection [...] Romero MD [facility] [place] [address] Oncology Maricarmen Payton ENGRAVER AUTOMATIC [address] [place] [address] [place] [address] 02/19/2022 TH Visit (TeleHealth) Hematology and Michael Romero Oncology [facility] ONCOLOGY [place], [place] [address] (Wo rk) 02/19/2022 Infusion Hematology [...] site documented in this encounter Care Teams Cisco Certified Network Associate Relationship Specialty Start Date End Date None PCP - General 12/03/19 None documented as of this encounter
--- OUTSIDE RECORDS SUMMARY | 2022-02-19 01:08 | XMS_ITS | Encounter Summary ---
:1940 [place] [address] Care Team Providers Name Role Phone None Primary Care Provider Unavailable Encounter Details Date Type Department Care Team Description 11/26/2021 Ancillary Procedure Radiology Library at Jorge Romero [facility] [place] [address] ONCOLOGY [phone] [place], [place] [address] (Wo rk) Social History Tobacco Use Types Packs/Day Years Used Date Smoking Tobacco: Never Smokeless Tobacco: Never Sex Assigned at Date Recorded Not on file documented as of this encounter Plan of Treatment Upcoming Encounters Date Type Specialty Care Team Description 02/19/2022 Scheduled View Only Hematology and Aaron Romero MD [facility] [place] [address] Oncology [address]armen Pay[address] [place] [address] 02/19/2022 TH Visit (TeleHealth) Hematology and Michael Romero Oncology [facility] [address] [place] [place], [place] [address] (Wo rk) 02/19/2022 Infusion Hematology [...] Organization Address City/State/ZIP Code Phon e Number [place], [place] documented in this encounter Visit Diagnoses Not on filedocumented in this encounter Care Teams Director Of Women'S Services Relationship Specialty Start Date End Date None PCP - General 12/03/19 None documented as of this encounter
--- OUTSIDE RECORDS SUMMARY | 2022-02-19 01:08 | XMS_ITS | Encounter Summary ---
:1940 Author Organization [facility] [place] [address] Care Team Providers Name Role Phone None Primary Care Provider Unavailable Encounter Details Date Type Department Care Team Description 08/17/2021 Orders Only Hematology/Oncology at [facility] M[place] [place] [address] ONCOLOGY [facility], [facility] [phone] Social History Tobacco Use Types Packs/Day Years Used Date Smoking Tobacco: Never Smokeless Tobacco: Never Sex Assigned at Date Recorded Not on file documented as of this encounter Plan of Treatment Upcoming Encounters Date Type Specialty Care Team Description 02/19/2022 Scheduled View Only Hematology and Aaron Romero MD [facility] [place] [address] Oncology Maricarmen Payton SHEET METAL ERECTOR [address] [place] [address] H[place]ATOLOGY [place] [address] 02/19/2022 TH Visit (TeleHealth) Hematology and Michael Romero Oncology [facility] [address] [place], [place] [address] (Wo rk) 02/19/2022 Infusion Hematology and Oncology documented as of this encounter Visit Diagnoses Not on filedocumented in this encounter Care Teams Dealer Development Manager Relationship Specialty Start Date End Date None PCP - General 12/03/19 None documented as of this encounter
--- OUTSIDE RECORDS SUMMARY | 2022-02-19 01:08 | XMS_ITS | Encounter Summary ---
:1940 Author Organization [facility] [place] [address] Care Team Providers Name Role Phone None Primary Care Provider Unavailable Encounter Details Date Type Department Care Team Description 01/01/2022 Orders Only Hematology/Oncology at [facility] [address] [place] [address] ONCOLOGY [facility], [facility] [phone] Social History Tobacco Use Types Packs/Day Years Used Date Smoking Tobacco: Never Smokeless Tobacco: Never Sex Assigned at Date Recorded Not on file documented as of this encounter Plan of Treatment Upcoming Encounters Date Type Specialty Care Team Description 02/19/2022 Scheduled View Only Hematology and Aaron Romero MD [facility] [place] [address] Oncology Maricarmen Payton TELEMETRY MONITOR [address] [place] [address] H[place]ATOLOGY [place] [address] 02/19/2022 TH Visit (TeleHealth) Hematology and Michael Romero Oncology [facility] DR [place], [place] 0[address] (Wo rk) 02/19/2022 Infusion Hematology and Oncology documented as of this encounter Visit Diagnoses Not on filedocumented in this encounter Care Teams Bush And Vine Farmer Fruit Crops Relationship Specialty Start Date End Date None PCP - General 12/03/19 None documented as of this encounter
--- OUTSIDE RECORDS SUMMARY | 2022-02-19 01:08 | XMS_ITS | Encounter Summary ---
:1940 [place] [address] Care Team Providers Name Role Phone None Primary Care Provider Unavailable Encounter Details Date Type Department Care Team Description 12/04/2021 Office Visit Hematology/Oncology Lissy Luna RD [facility] [address] other site [place], [place] HEMATOLOGY AND [address] ONCOLOGY [phone] [place], [place] [address] Social History Tobacco Use Types [...] fairly poor. 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
--- OUTSIDE RECORDS SUMMARY | 2022-02-19 01:08 | XMS_ITS | Encounter Summary ---
:1940 [place] [address] Care Team Providers Name Role Phone None Primary Care Provider Unavailable Encounter Details Date Type Department Care Team Description 10/01/2021 Ancillary Procedure Radiology Library at Jorge Romero [facility] [place] [address] ONCOLOGY [phone] [place], [place] [address] (Wo rk) Social History Tobacco Use Types Packs/Day Years Used Date Smoking Tobacco: Never Smokeless Tobacco: Never Sex Assigned at Date Recorded Not on file documented as of this encounter Plan of Treatment Upcoming Encounters Date Type Specialty Care Team Description 02/19/2022 Scheduled View Only Hematology and Aaron Romero MD [facility] [address] Oncology Maricarmen Payton[address] H[place]OLOG[place] [address] 02/19/2022 TH Visit (TeleHealth) Hematology and Michael Romero Oncology [facility] [address] [place], [place] [address] (Wo rk) 02/19/2022 Infusion Hematology [...] / Laterality Volume Narrative ANGELICA RAD - 10/01/2021 12:41 PM EDT This exam is auto-finalizing. It's purpo se is for storage only. Michael Romero MD IMJose FILM LIBRARY ORDERABLES Performing Organization Address City/State/ZIP Code Phon e Number [place], [place] documented in this encounter Visit Diagnoses Not on filedocumented in this encounter Care Teams Supervisor Solder Making Relationship Specialty Start Date End Date None PCP - General 12/03/19 None documented as of this encounter
--- OUTSIDE RECORDS SUMMARY | 2022-02-19 01:08 | XMS_ITS | Encounter Summary ---
:1940 [place] [address] Care Team Providers Name Role Phone None Primary Care Provider Unavailable Encounter Details Date Type Department Care Team Description 01/01/2022 Office Visit Hematology/Oncology Lissy Luna RD Primary colon cancer at [facility] with metastasis to [address] other site [place], [place] HEMATOLOGY AND [address] ONCOLOGY [phone] [place], [place] 0[address] Social History Tobacco Use Types [...] weeks ?? 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
--- OUTSIDE RECORDS SUMMARY | 2022-02-19 01:08 | XMS_ITS | Encounter Summary ---
:1940 Author Organization [facility] [place] [address] Care Team Providers Name Role Phone None Primary Care Provider Unavailable Reason for Visit Reason Comments Chemotherapy Cycle 8 Day 1 mFOLFOX Treatment/Therapy Plan Authorization (Routine) - Authorized Specialty Diagnoses / Procedures Referred By Contact Refer red To Contact Diagnoses Primary colon cancer with metastasis to other site Michael Romero MD Stj Hem Onc Infusion Procedures [facility] AMB ONC GI COLORECTAL CANCER - FOLFOX-6 (14 DAY) [address] [place] [phone] Fax: Referral ID Status Reason Start Date Expiration Date Visits V isits Requested Authorized [id number] Authorized 05/08/2021 02/26/2022 99 99 Encounter Details Date Type Department Care Team Description 09/25/2021 Infusion Hematology Oncology at [facility] colon cancer with [facility] metastasis to other site [address] [place] [phone] Social History Tobacco Use Types [...] View Only Hematology and Aaron Romero MD [facility] [place] [address] Oncology Maricarmen Payton[address] [place] [address] 02/19/2022 TH Visit (TeleHealth) Hematology and Michael Romero Oncology [facility] DR [place], [place] [address] (Wo rk) 02/19/2022 Infusion Hematology [...] Routine documented in this encounter Care Teams Load Checker Relationship Specialty Start Date End Date None PCP - General 12/03/19 None documented as of this encounter
--- OUTSIDE RECORDS SUMMARY | 2022-02-19 01:08 | XMS_ITS | Encounter Summary ---
:1940 Author Organization [facility] [place] [address] Care Team Providers Name Role Phone None Primary Care Provider Unavailable Reason for Visit Reason Comments Chemotherapy Treatment/Therapy Plan Authorization (Routine) - Authorized Specialty Diagnoses / Procedures Referred By Contact Refer red To Contact Diagnoses Primary colon cancer with metastasis to other site Michael Romero MD Stj Hem Onc [facility] GI COLORECTAL CANCER - FOLFOX-6 (14 DAY) [address] [place] [phone] Fax: Referral ID Status Reason Start Date Expiration Date Visits V isits Requested Authorized [id number] Authorized 05/08/2021 02/26/2022 99 99 Encounter Details Date Type Department Care Team Description 01/29/2022 Infusion Hematology Oncology at [facility] colon cancer with [facility] metastasis to other site [address] [place] [phone] Social History Tobacco Use Types Packs/Day Years Used Date Smoking Tobacco: Never Smokeless Tobacco: Never Sex Assigned at Date Recorded Not on file documented as of this encounter Progress Notes Arsenio Londono RN - 01/29/2022 9:30 AM EDT INFUSION THERAPY ADMINISTRATION NOTES DIAGNOSIS: GI Colorectal CA CYCLE #: Day 1 Cycle 16 REASON FOR VISIT: FOLFOX infusion and initiation of continunous home 5FU infusion via CADD pump provided by [employer] SUBJECTIVE Joy offers no complaints. OBJECTIVE LAB DATA: Labs reviewed and found adequate for treatment. WBC 5.77; PLT 206; ANC 3; BUN 19; Creat 0.9 Pre administration: Chemotherapy orders independently verified for drug name, route, and dosage per patient's height, weight and BSA by Vikram KOENIG and Franca Arechiga RN, pharm Ahrjeet. At time of administration Patient identity verified using patient's name and date of at the chair/bedside by double RN check just prior to initiating the patient's home infusion chemotherapy via CADD pump provided by [employer]. Fluorouracil 2244 mg over 46 hours, IV via CADD pump. Amount infused verified by double RN check after 15 minutes and appropriate amount had infused. REACTIONS (DESCRIPTION, TIME, INTERVENTION AND EFFECTIVENESS) none ASSESSMENT Joy was awake, alert and tolerated treatment well. Good blood return on port verified before each use. Reeducation provided to pt and about disconnection procedures. and pt returned demonstration, steps. Home disconnect kit provided. PLAN Return to clinic as scheduled. documented in this encounter Plan of Treatment Upcoming Encounters Date Type Specialty Care Team Description 02/19/2022 Scheduled View Only Hematology and Aaron Romero MD [facility] [place] [place] [address] Oncology Maricarmen Payton[address] [place] [address] 02/19/2022 TH Visit (TeleHealth) Hematology and Michael Romero Oncology [facility] ONCOLOGY [place], [place] 0[address] (Wo rk) 02/19/2022 Infusion Hematology [...] Rate Site dexAMETHasone (Decadron) tablet 10 Given 01/29/2022 9:45 AM EDT 10 mg mg 10 mg, Oral, ONCE, 1 dose, On Tue01/29/22 at 1000, Administer prior to chemotherapy, Routine fluorouraciL (ADRUCIL) chemo Given 01/29/2022 10:48 AM EDT 249 m g 59.8 mL/hr injection 249 mg 249 mg (rounded from 249.3333 mg = 133.3333 mg/m2/dose ? 1.87 m2 Treatment Plan BSA from Recorded weight), Intravenous, ONCE, 1 dose, On Tue01/29/22 at 1100, Administer over 5 Minutes, Warning Vesicant/Irritant Medication fluorouraciL (AdruciL) in sodium Given 01/29/2022 11:00 AM EDT 2 ,244 mg 3 mL/hr chloride 0.9% 138 mL infusion (46 Hour - For Home Use) 2,244 mg 2,244 mg (1,200 mg/m2/dose ? 1.87 m2 Treatment Plan BSA from Recorded weight), Intravenous, ONCE, 1 dose, On Tue01/29/22 at 1230, Administer over 46 Hours, Warning Vesicant/Irritant Medication To be infused via an ambulatory infusion CADD Legacy Plus pump continuously IV at 3 mL/hr for 46 hours. Pump contains a 46 hour supply and provides 1,200 mg/m2 over 46 hours. leucovorin 350 mg in dextrose 5% New Bag 01/29/2022 10:23 AM E DT 350 mg 340 mL/hr 85 mL infusion 350 mg, Intravenous, ONCE, 1 dose, On Tue01/29/22 at 1100, Administer over 15 Minutes, May Y-site with OXALIplatin Do not administer at a rate faster than 160 milligrams/minute. palonosetron (Aloxi) (0.05 mg/mL) injection Given 01/03 9:45 AM EDT 0.25 mg 0.25 mg 0.25 mg, Intravenous, ONCE, 1 dose, On Tue01/29/22 at 1000, Administer over 30 seconds. Administer prior to chemotherapy, Routine documented in this encounter Care Teams Airborne Operations Relationship Specialty Start Date End Date None PCP - General 12/03/19 None documented as of this encounter
--- OUTSIDE RECORDS SUMMARY | 2022-02-19 01:08 | XMS_ITS | Encounter Summary ---
:1940 Author Organization [facility] [place] [address] Care Team Providers Name Role Phone None Primary Care Provider Unavailable Encounter Details Date Type Department Care Team Description 08/21/2021 Office Visit Hematology/Oncology Aaron Romero MD [facility] [place] [address] Adenocarcinoma of small at [facility], Mckenna Tracey APRN [address] [place] [address] [place] [address] intestine, stage [address] [place] [phone] Social History Tobacco Use Types Packs/Day [...] in this encounter Progress Notes Mckenna Farris, MANAGER SOCIAL - 08/21/2021 10:30 AM EDT Subjective Patient [...] of significant intra abdominal adhesions Path [place] [place] - Omentum, mass, excision: - [...] eyes today. Soc Hx: , lives in [place], [place] Tob - Never Etoh - None Worked as [employer] and [employer]. Fam Hx: Father - Mother - breast [...] in the pelvis. She was [place] [facility] and underwent resection on 12/05/2019 - path [...] the absence of cold, laryngeal dysesthesia, fatigue, angina/LA, hypersensitivity reactions and others.?She was given informationalhandouts [...] View Only Hematology and Aaron Romero MD [facility] [place] [address] Oncology Maricarmen Payton[address] [place] [address] 02/19/2022 TH Visit (TeleHealth) Hematology and Michael Romero Oncology [facility] ONCOLOGY [place], [place] [address] (Wo rk) 02/19/2022 Infusion Hematology and Oncology documented as of this encounter Visit Diagnoses Diagnosis Adenocarcinoma of small intestine, stage 4 Malignant neoplasm of small intestine, u nspecified site Adenocarcinoma of small intestine, stage 4 Malignant neoplasm of small intestine, u nspecified site documented in this encounter Care Teams Work Car Operator Relationship Specialty Start Date End Date None PCP - General 12/03/19 None documented as of this encounter
--- OUTSIDE RECORDS SUMMARY | 2022-02-19 01:08 | XMS_ITS | Encounter Summary ---
:1940 Author Organization [facility] [place] [address] Care Team Providers Name Role Phone None [...] COLORECTAL CANCER - FOLFOX-6 (14 DAY) [address] [place] [phone] Fax: Referral ID Status Reason Start Date Expiration Date Visits V isits Requested Authorized [id number] Authorized 05/08/2021 02/26/2022 99 99 Encounter Details Date Type Department Care Team Description 11/06/2021 Infusion Hematology Oncology at [facility] colon cancer with [facility] metastasis to other site [address] [place] [phone] Social History Tobacco Use Types [...] at [facility] and [facility] for treatment. IV ACCESS: Implanted port [...] View Only Hematology and Aaron Romero MD [facility] [place] [address] Oncology Maricarmen Payton[address] [place] [address] 02/19/2022 TH Visit (TeleHealth) Hematology and Michael Romero Oncology [facility] ONCOLOGY [place], [place] 0375 (Wo rk) 02/19/2022 Infusion Hematology [...] Routine documented in this encounter Care Teams Long Distance Operator Relationship Specialty Start Date End Date None PCP - General 12/03/19 None documented as of this encounter
--- OUTSIDE RECORDS SUMMARY | 2022-02-19 01:08 | XMS_ITS | Encounter Summary ---
:1940 Author Organization [facility] [place] [address] Care Team Providers Name Role Phone None Primary Care Provider Unavailable Reason for Visit Treatment/Therapy Plan Authorization (Routine) - Authorized Specialty Diagnoses / Procedures Referred By Contact Refer red To Contact Diagnoses Primary colon cancer with metastasis to other site Michael Romero MD Stj Hem Onc Infusion Procedures [facility] ONC GI COLORECTAL CANCER - FOLFOX-6 (14 DAY) [address] [place] [phone] Fax: Referral ID Status Reason Start Date Expiration Date Visits V isits Requested Authorized [id number] Authorized 05/08/2021 02/26/2022 99 99 Encounter Details Date Type Department Care Team Description 06/26/2021 Infusion Hematology Oncology at [facility] colon cancer with [facility] metastasis to other site [address] [place] [phone] Social History Tobacco Use Types [...] Only Hematology and Aaron Romero MD [facility] [place] [address] Oncology Maricarmen Payton[address] [place] [address] 02/19/2022 TH Visit (TeleHealth) Hematology and Michael Romero Oncology [facility] ONCOLOG[place], [place] 0[address] (Wo rk) 02/19/2022 Infusion Hematology [...] Routine documented in this encounter Care Teams Bunghole Borer Relationship Specialty Start Date End Date None PCP - General 12/03/19 None documented as of this encounter
--- OUTSIDE RECORDS SUMMARY | 2022-02-19 01:08 | XMS_ITS | Encounter Summary ---
:1940 Author Organization [facility] Address [facility] [place] [address] Care Team Providers Name Role Phone None Primary Care Provider Unavailable Encounter Details Date Type Department Care Team Description 11/20/2021 Orders Only Hematology and Michael Romero, Protein -calorie Oncology at [facility] [place], [facility] uns [place] [address] ONCOLOGY [phone] [place], [place] [address] Social History Tobacco Use Types Packs/Day Years Used Date Smoking Tobacco: Never Smokeless Tobacco: Never Sex Assigned at Date Recorded Not on file documented as of this encounter Plan of Treatment Upcoming Encounters Date Type Specialty Care Team Description 02/19/2022 Scheduled View Only Hematology and Aaron Romero MD [facility] [place] [address] Oncology Maricarmen Payton[address] [place] [address] 02/19/2022 TH Visit (TeleHealth) Hematology Michael Ang Oncology [facility] DR [place], [place] 0[address] (Wo rk) 02/19/2022 Infusion Hematology and Oncology documented as of this encounter Visit Diagnoses Diagnosis Protein-calorie malnutrition, unspecifie d severity Adenocarcinoma of small intestine, stage 4 Malignant neoplasm of small intestine, u nspecified site documented in this encounter Care Teams Channel Lip Wetter Relationship Specialty Start Date End Date None PCP - General 12/03/19 None documented as of this encounter
--- OUTSIDE RECORDS SUMMARY | 2022-02-19 01:08 | XMS_ITS | Encounter Summary ---
:1940 [place] [address] Care Team Providers Name Role Phone None Primary Care Provider Unavailable Encounter Details Date Type Department Care Team Description 10/23/2021 Office Visit Hematology/Oncology Michael Romero Stage IV adenocarcinoma at [facility] MD [place] of small bowel [address] [place] [phone] ONCOLOGY [phone] [place] [id number] Social History Tobacco Use Types Packs/Day Years [...] because of significant intra abdominal adhesions Path ([facility] review) - Omentum, mass, excision: - Metastatic [...] is stable. Soc Hx: , lives in [place], [place] Tob - Never Etoh - None Worked as [employer]. Fam Hx: Father - Mother - breast [...] pelvis. [place] [facility] [place] on 12/05/2019 [...] Only Hematology and Aaron Romero MD [facility] [place] [address] Oncology Maricarmen Payton, [address] [place] [address] 02/19/2022 TH Visit (TeleHealth) Hematology and Michael Romero Oncology MD [facility] DR [place], [place] 0375 (Wo rk) 02/19/2022 Infusion Hematology and Oncology documented as of this encounter Visit Diagnoses Diagnosis Stage IV adenocarcinoma of small bowel Malignant neoplasm of small intestine, u nspecified site Adenocarcinoma of small intestine, stage 4 Malignant neoplasm of small intestine, u nspecified site documented in this encounter Care Teams Shingle Weaver Relationship Specialty Start Date End Date None PCP - General 12/03/19 None documented as of this encounter
--- OUTSIDE RECORDS SUMMARY | 2022-02-19 01:08 | XMS_ITS | Encounter Summary ---
:1940 Author Organization [facility] [place] [address] Care Team Providers Name Role Phone None Primary Care Provider Unavailable Reason for Referral Diagnostic Test (Routine) - Authorized Specialty Diagnoses / Procedures Referred By Contact Refer red To Contact Radiology Diagnoses Adenocarcinoma of small intestine, stage 4 Michael Romero MD Procedures CT Chest Abdomen Pelvis w Contrast (Generic) [facility] [place] [address] Referral ID Status Reason Start Expiration Visits Visits Date Date Requested Authorized [id number] Authorized Specialty 07/10/2021 01/09/2023 1 1 Service Requested Encounter Details Date Type Department Care Team Description 07/10/2021 Office Visit Hematology/Oncology Aaron Romero MD [facility] [place] [address] [facility]en[facility] [address] [place] [address] MEDICAL ONCOLOGY [place], [place] [phone] intestine, stage [address] [place] [phone] Social History Tobacco Use Types Packs/Day [...] because of significant intra abdominal adhesions Path [place] [place] [...] for her. Soc Hx: , lives in [place], [place] Tob - Never Etoh - None Worked as [employer]. Fam Hx: Father - Mother - breast [...] in the pelvis. She was seen at [facility] and underwent resection [...] Hematology and Aaron Romero MD [facility] [place] [address] Oncology Maricarmen Payton[address] [address] 02/19/2022 TH Visit (TeleHealth) Hematology and Michael Romero Oncology MD [facility] DR [place], [place] 0[address] (Wo rk) 02/19/2022 Infusion Hematology [...] site documented in this encounter Care Teams Pre Sales Technical Consultant Relationship Specialty Start Date End Date None PCP - General 12/03/19 None documented as of this encounter
--- OUTSIDE RECORDS SUMMARY | 2022-02-19 01:08 | XMS_ITS | Encounter Summary ---
:1940 [place] [address] Care Team Providers Name Role Phone None Primary Care Provider Unavailable Encounter Details Date Type Department Care Team Description 12/04/2021 Ancillary Procedure Radiology Library at Jorge Romero [facility] [place] [place] [address] ONCOLOGY [phone] [place], [place] 0375 (Wo rk) Social History Tobacco Use Types Packs/Day Years Used Date Smoking Tobacco: Never Smokeless Tobacco: Never Sex Assigned at Date Recorded Not on file documented as of this encounter Plan of Treatment Upcoming Encounters Date Type Specialty Care Team Description 02/19/2022 Scheduled View Only Hematology and Aaron Romero MD [facility] [place] [address] Oncology Maricarmen Payton[address] [place] [address] 02/19/2022 TH Visit (TeleHealth) Hematology and Michael Romero Oncology [facility] [address] [place], [place] 0375 (Wo rk) 02/19/2022 Infusion Hematology [...] / Laterality Volume Narrative ANGELICA HAY - 12/04/2021 3:05 PM EDT This exam is auto-finalizing. It's purpo se is for storage only. Michael Romero MD IMJose FILM LIBRARY ORDERABLES Performing Organization Address City/State/ZIP Code Phon e Number BHARTI BHARTI [place], [place] documented in this encounter Visit Diagnoses Not on filedocumented in this encounter Care Teams Floor Finisher Relationship Specialty Start Date End Date None PCP - General 12/03/19 None documented as of this encounter
--- OUTSIDE RECORDS SUMMARY | 2022-02-19 01:08 | XMS_ITS | Encounter Summary ---
:1940 Author Organization [facility] [place] [address] Care Team Providers Name Role Phone None Primary Care Provider Unavailable Reason for Referral Diagnostic Test (Routine) - Pending Review Specialty Diagnoses / Procedures Referred By Contact Refer red To Contact Diagnoses Neck swelling Stage IV adenocarcinoma of small bowel Acute deep vein thrombosis (DVT) of other vein of right upper extremity Michael Romero MD Procedures Vascular Imaging Venous Upper Extremity Unilateral [facility] [place] [address] Referral ID Status Reason Start Expiration Visits Visits Date Date Requested Authorized [id number] Pending Specialty 12/04/2021 06/04/2023 1 1 Review Service Requested Encounter Details Date Type Department Care Team Description 12/04/2021 Office Visit Hematology/Oncology Michael Romero Neck swelling; at Tl Putnam MD Stage IV adenocarcinoma of small bowel; [address] [place] [address] Acute deep vein thrombosis ( DVT) of other vein of right upper extremity [place], [place] CENTER [phone] ONCOLOGY [phone] [place], [place] [address] Social History Tobacco Use Types [...] toward bedtime. Soc Hx: , lives in [place], [place] Tob - Never Etoh - None Worked as [email or web address]. Fam Hx: Father - Mother - breast [...] 1.5 Doppler US, discussed with radiology - [facility] thrombosis Assessment & Plan Joy Armstrong is [...] in the pelvis. She was seen at [facility] and underwent resection on 12/05/2019 - path [...] I reviewed the Ct with radiology at [facility]. There does appear to be RIJ thrombus. [...] View Only Hematology and Aaron Romero MD [facility] [place] [place] [address] Oncology Maricarmen Payton[address] [place] [address] 02/19/2022 TH Visit (TeleHealth) Hematology and Michael Romero Oncology MD [facility] DR [place], [place] 0[address] (Wo rk) 02/19/2022 Infusion Hematology [...] othe r vein of right upper extremity Adenocarcinoma of small intestine, stage 4 Malignant neoplasm of small intestine, u nspecified site documented in this encounter Care Teams Communications Project Manager Relationship Specialty Start Date End Date None PCP - General 12/03/19 None documented as of this encounter
--- OUTSIDE RECORDS SUMMARY | 2022-02-19 01:08 | XMS_ITS | Encounter Summary ---
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 site Michael Romero MD Stj Hem Onc Infusion Procedures [facility] AMB ONC GI COLORECTAL CANCER - FOLFOX-6 (14 DAY) [address] [place] [phone] Fax: Referral ID Status Reason Start Date Expiration Date Visits V isits Requested Authorized [id number] Authorized 05/08/2021 02/26/2022 99 99 Encounter Details Date Type Department Care Team Description 12/04/2021 Infusion Hematology Oncology at [facility] colon cancer with [facility] metastasis to other site [address] [place] [phone] Social History Tobacco Use Types Packs/Day Years Used Date Smoking Tobacco: Never Smokeless Tobacco: Never Sex Assigned at Date Recorded Not on file documented as of this encounter Progress Notes Virginia Leon RN - 12/04/2021 10:30 AM EDT [...] and Aaron Romero MD [facility] [place] [address] Oncology Maricarmen Payton[address] [place] [address] 02/19/2022 TH Visit (TeleHealth) Hematology and Michael Romero Oncology [facility] ONCOLOGY [place], [place] [address] (Wo rk) 02/19/2022 Infusion Hematology [...] documented in this encounter Care Teams Front Desk Lead Relationship Specialty Start Date End Date None PCP - General 12/03/19 None documented as of this encounter
--- OUTSIDE RECORDS SUMMARY | 2022-02-19 01:08 | XMS_ITS | Encounter Summary ---
:1940 [place] [address] Care Team Providers Name Role Phone None Primary Care Provider Unavailable Encounter Details Date Type Department Care Team Description 08/28/2021 Orders Only Hematology and Oncology at Michael Silva MD [facility] [place] [place] [address] [place] [address] [phone] (Wo rk) Social History Tobacco Use Types Packs/Day Years Used Date Smoking Tobacco: Never Smokeless Tobacco: Never Sex Assigned at Date Recorded Not on file documented as of this encounter Plan of Treatment Upcoming Encounters Date Type Specialty Care Team Description 02/19/2022 Scheduled View Only Hematology and Aaron Romero MD [facility] [place] [address] Oncology Maricarmen Payton, [address] HEMATOLOGY AND [place], [place] [address] 02/19/2022 TH Visit (TeleHealth) Hematology and Michael Romero Oncology [facility] ONCOLOGY [place], [place] 0375 (Wo rk) 02/19/2022 Infusion Hematology and Oncology documented as of this encounter Visit Diagnoses Not on filedocumented in this encounter Care Teams Silk Screen Printer Helper Relationship Specialty Start Date End Date None PCP - General 12/03/19 None documented as of this encounter
--- OUTSIDE RECORDS SUMMARY | 2022-02-19 01:08 | XMS_ITS | Encounter Summary ---
:1940 [place] [address] Care Team Providers Name Role Phone None Primary Care Provider Unavailable Encounter Details Date Type Department Care Team Description 07/22/2021 Ancillary Procedure Radiology Library at Jorge Romero [facility] [place] [address] ONCOLOGY [phone] [place], [place] [address] (Wo rk) Social History Tobacco Use Types Packs/Day Years Used Date Smoking Tobacco: Never Smokeless Tobacco: Never Sex Assigned at Date Recorded Not on file documented as of this encounter Plan of Treatment Upcoming Encounters Date Type Specialty Care Team Description 02/19/2022 Scheduled View Only Hematology and Aaron Romero MD [facility] [place] [place] [address] Oncology [address]armen Payton[address] [place] [address] 02/19/2022 TH Visit (TeleHealth) Hematology and Michael Romero Oncology [facility] [address] [place], [place] 0[address] (Wo rk) 02/19/2022 Infusion Hematology [...] / Laterality Volume Narrative ANGELICA RAD - 07/23/2021 12:39 PM EDT This exam is auto-finalizing. It's purpo se is for storage only. Michael Romero MD IMJose FILM LIBRARY ORDERABLES Performing Organization Address City/State/ZIP Code Phon e Number RAD [place], [place] documented in this encounter Visit Diagnoses Not on filedocumented in this encounter Care Teams Dog Races Manager Relationship Specialty Start Date End Date None PCP - General 12/03/19 None documented as of this encounter
--- OUTSIDE RECORDS SUMMARY | 2022-02-19 01:08 | XMS_ITS | Encounter Summary ---
:1940 Author Organization [facility] [place] [address] Care Team Providers Name Role Phone None Primary Care Provider Unavailable Encounter Details Date Type Department Care Team Description 07/16/2021 Notes Only Hematology/Oncology at [facility]omes [facility] [address] [place] [phone] Social History Tobacco Use Types Packs/Day Years [...] help was enough. Encourage her to let LIQUID FERTILIZER SERVICER or herclinic nurse know next visit and we can explore other resources. Reminded pt of LIQUID FERTILIZER SERVICER availability and contact information. Will continue to follow. Supportive Counseling Food insecurity resources Transportation resources documented in this encounter Plan of Treatment Upcoming Encounters Date Type Specialty Care Team Description 02/19/2022 Scheduled View Only Hematology and Aaron Romero MD [facility] [place] [address] Oncology Maricarmen Payton[address] [address] 02/19/2022 TH Visit (TeleHealth) Hematology and Michael Romero Oncology [facility] ONCOLOGY [place], [place] 0[address] (Wo rk) 02/19/2022 Infusion Hematology and Oncology documented as of this encounter Visit Diagnoses Not on filedocumented in this encounter Care Teams Bus Van Driver Relationship Specialty Start Date End Date None PCP - General 12/03/19 None documented as of this encounter
--- OUTSIDE RECORDS SUMMARY | 2022-02-19 01:09 | XMS_ITS | Encounter Summary ---
:1940 [place] [address] Care Team Providers Name Role Phone Unavailable Primary Care Provider Unavailable Encounter Details Date Type Department Care Team Description 11/26/2019 Orders Only FISH DRESSING MACHINE FEEDER at [facility], DO Anais Ndiaye [address] [place] [address] OBSTETRICS & [place] [address] [place] [address] [phone] (Wo rk) Social History Tobacco Use Types Packs/Day Years Used Date Smoking Tobacco: Never Assessed Sex Assigned at Date Recorded Not on file documented as of this encounter Plan of Treatment Upcoming Encounters Date Type Specialty Care Team Description 02/19/2022 Scheduled View Only Hematology and Aaron Romero MD [facility] [address] Oncology Maricarmen Payton [address] [place] [address] 02/19/2022 TH Visit (TeleHealth) Hematology and Michael Romero Oncology [facility] ONCOLOGY [place], [place] [address] (Wo rk) 02/19/2022 Infusion Hematology and Oncology documented as of this encounter Visit Diagnoses Not on filedocumented in this encounter
--- OUTSIDE RECORDS SUMMARY | 2022-02-19 01:09 | XMS_ITS | Encounter Summary ---
:1940 [place] [address] Care Team Providers Name Role Phone None Primary Care Provider Unavailable Encounter Details Date Type Department Care Team Description 10/31/2020 Ancillary Procedure Radiology Library at Jorge Romero [facility] [place] [address] ONCOLOGY [phone] [place], [place] [address] (Wo rk) Social History Tobacco Use Types Packs/Day Years Used Date Smoking Tobacco: Never Smokeless Tobacco: Never Sex Assigned at Date Recorded Not on file documented as of this encounter Plan of Treatment Upcoming Encounters Date Type Specialty Care Team Description 02/19/2022 Scheduled View Only Hematology and Aaron Romero MD [facility] [place] [address] Oncology Maricarmen Payton[address] [place] [address] 02/19/2022 TH Visit (TeleHealth) Hematology and Michael Romero Oncology [facility] [address] [place], [place] [address] (Wo rk) 02/19/2022 Infusion Hematology [...] / Laterality Volume Narrative BHARTI - 04/16/2021 10:59 AM EST This exam is auto-finalizing. It's purpo se is for storage only. Michael Romero MD IMJose FILM LIBRARY ORDERABLES Performing Organization Address City/State/ZIP Code Phon e Number [facility] BHARTI [place], [place] documented in this encounter Visit Diagnoses Not on filedocumented in this encounter Care Teams Dining Room Host/Hostess Relationship Specialty Start Date End Date None PCP - General 12/03/19 None documented as of this encounter
--- OUTSIDE RECORDS SUMMARY | 2022-02-19 01:09 | XMS_ITS | Encounter Summary ---
:1940 [place] [address] Care Team Providers Name Role Phone None Primary Care Provider Unavailable Encounter Details Date Type Department Care Team Description 05/22/2021 Orders Only Hematology/Oncology at [address] HEMATOLOGY [place] [address] [place], [place] [id number] (Wo rk) Social History Tobacco Use Types Packs/Day Years Used Date Smoking Tobacco: Never Smokeless Tobacco: Never Sex Assigned at Date Recorded Not on file documented as of this encounter Plan of Treatment Upcoming Encounters Date Type Specialty Care Team Description 02/19/2022 Scheduled View Only Hematology and Aaron Romero MD [facility] [place] [address] Oncology Maricarmen Pay[address] HEMATOLOGY AND ONGOLOCY [place], [place] [address] 02/19/2022 TH Visit (TeleHealth) Hematology Michael Ang Oncology [facility] ONCOLOGY [place], [place] 0[address] (Wo rk) 02/19/2022 Infusion Hematology and Oncology documented as of this encounter Visit Diagnoses Not on filedocumented in this encounter Care Teams Md Psychiatry Relationship Specialty Start Date End Date None PCP - General 12/03/19 None documented as of this encounter
--- OUTSIDE RECORDS SUMMARY | 2022-02-19 01:09 | XMS_ITS | Encounter Summary ---
:1940 [place] [address] Care Team Providers Name Role Phone None Primary Care Provider Unavailable Encounter Details Date Type Department Care Team Description 10/04/2020 Ancillary Procedure Radiology Library at Jorge Romero [facility] [place] [address] ONCOLOGY [phone] [place], [place] [address] (Wo rk) Social History Tobacco Use Types Packs/Day Years Used Date Smoking Tobacco: Never Smokeless Tobacco: Never Sex Assigned at Date Recorded Not on file documented as of this encounter Plan of Treatment Upcoming Encounters Date Type Specialty Care Team Description 02/19/2022 Scheduled View Only Hematology and Aaron Romero MD [facility] [place] [address] Oncology Maricarmen Payton[address] [place] [address] 02/19/2022 TH Visit (TeleHealth) Hematology and Michael Romero Oncology [facility] [address] [place], [place] [address] (Wo rk) 02/19/2022 Infusion Hematology [...] Organization Address City/State/ZIP Code Phon e Number [place], [place] documented in this encounter Visit Diagnoses Not on filedocumented in this encounter Care Teams Process Excellence Manager Relationship Specialty Start Date End Date None PCP - General 12/03/19 None documented as of this encounter
--- OUTSIDE RECORDS SUMMARY | 2022-02-19 01:09 | XMS_ITS | Encounter Summary ---
:1940 Author Organization [facility] [place] [address] Care Team Providers Name Role Phone None Primary Care Provider Unavailable Reason for Visit Reason Comments Pre-op Exam Encounter Details Date Type Department Care Team Description 12/03/2019 Office Visit RECRUITING COORDINATOR at [place] Dannie Epperson DO Hydrosalpinx [address] OBSTETRICS & [place] [address] [place] [address] [phone] (Wo rk) Social History Tobacco Use Types [...] very pleasant 79 yo para 4 from [place] who is a new patient in consult today as requested by Dr Live Sood of the General Surgery group at [facility]. She presents alone today, and her Romero is in the car outside. Dr Sood is requesting gynecology presence at plannedlaparotomy for colon cancer resection for possible JOSE ROBERTO-BSO if needed. This has been scheduled for 12/05/2019. The patient has undergone prior visit with OSH and decided to pursue second opinion with general surgery at [facility]. She reports a history of colonoscopy in [...] history: G1: 196, 6 pound, male G2: 1964, 6 pound, female, G3: 1966, 6 pounds, male, G4: 1969, 6 pounds, male, Reports history of bilateral tubal ligation., Possible complication of hydrosalpinx on right per patient report. SUPERVISOR STAVE CUTTING history: Menarche age 16, 4 to 6-day cycles that were regular. She reported moderate flow. She reports mammography in 1989 that were normal. She reports having always had a normal Pap history and no STDs. She reports last colonoscopy 2 to 3 years ago. Social history: She does not smoke, drink or use drugs. 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 She is to Celia, age 79. He [...] laparotomy 12/05/2019. 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
--- OUTSIDE RECORDS SUMMARY | 2022-02-19 01:09 | XMS_ITS | Encounter Summary ---
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 Slime Jacobson MD ONCOLOGY [address] [place] [address] [place] [address] Fax: Referral ID Status Reason Start Date Expiration Date Visits V isits Requested Authorized [id number] Closed Consult, 05/08/2021 11/04/2021 1 1 Test & Treat Encounter Details Date Type Department Care Team Description 05/08/2021 TH Visit Hematology/Oncology Michael Romero ry colon cancer (TeleHealth) at Tl Putnam MD with metastasis to [address] [place] [address] MEDICAL other site [facility] [address] ONCOLOGY [phone] [place] [address] Social History Tobacco Use Types Packs/Day Years [...] because of significant intra abdominal adhesions Path ([facility] review) - Omentum, mass, excision: - Metastatic [...] or feet. Soc Hx: , lives in [place], [place] Tob - Never Etoh - None Worked as [employer]. Fam Hx: Father - Mother - breast [...] laryngeal dysesthesia, fatigue, angina/ME, hypersensitivity reactions and others.?She was given informationalhandouts [...] Aaron Romero MD [facility] [place] [address] Oncology Maricarmen Payton[address] [place] [address] 02/19/2022 TH Visit (TeleHealth) Hematology and Michael Romero , Oncology [facility] ONCOLOGY [place], [place] [address] (Wo rk) 02/19/2022 Infusion Hematology [...] site documented in this encounter Care Teams Shuttleless Loom Weaver Relationship Specialty Start Date End Date None PCP - General 12/03/19 None documented as of this encounter
--- OUTSIDE RECORDS SUMMARY | 2022-02-19 01:09 | XMS_ITS | Encounter Summary ---
:1940 [place] [address] Care Team Providers Name Role Phone None Primary Care Provider Unavailable Encounter Details Date Type Department Care Team Description 04/01/2021 External Results Medical Records Provider, [facility] [place] [address] Social History Tobacco Use Types Packs/Day Years Used Date Smoking Tobacco: Never Smokeless Tobacco: Never Sex Assigned at Date Recorded Not on file documented as of this encounter Plan of Treatment Upcoming Encounters Date Type Specialty Care Team Description 02/19/2022 Scheduled View Only Hematology and Aaron Romero MD [facility] [place] [address] Oncology Maricarmen Payton[address] HEMATOLOGY AND [place], [place] [address] 02/19/2022 TH Visit (TeleHealth) Hematology and Michael Romero Oncology [facility] ONCOLOGY [place], [place] [address] (Wo rk) 02/19/2022 Infusion Hematology [...] on filedocumented in this encounter Care Teams Edge Burnisher Uppers Relationship Specialty Start Date End Date None PCP - General 12/03/19 None documented as of this encounter
--- OUTSIDE RECORDS SUMMARY | 2022-02-19 01:09 | XMS_ITS | Encounter Summary ---
:1940 Author Organization [place] [address] Care Team Providers Name Role Phone None Primary Care Provider Unavailable Encounter Details Date Type Department Care Team Description 05/26/2021 Notes Only Hematology/Oncology at MulugetaClaudia amanda MSW [facility] OFFICE OF CARE [address] [place] [phone] Social History Tobacco Use Types Packs/Day Years Used Date Smoking Tobacco: Never Smokeless Tobacco: Never Sex Assigned at Date Recorded Not on file documented as of this encounter Progress Notes Claudia Gomes MSW - 05/26/2021 11:22 AM EST Reason for Referral: Brief assessment of social and emotional needs. Met with pt during her first infusion to introduce myself and role of social media campaign manager to assess/address barriers to getting to and [...] With pt's permission will apply to the [place] [facility] for gas cards. 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 She has Medicare A&B. She indicated she has applied for financial assistance through [facility]. Advance Directives: Pt has not completed her [...] resources Transportation resources Plan: Informed pt of GIZZARD PULLER availability and contact information. Will follow to assess/address psychosocial needs. KENA Bryan, ORDER DESK CLERK, OSW-C Director Video [facility] Add: [facility] Support [facility] janette be mailing pt a few gas cards. Pt was informed and is appreciative of this help. documented in this encounter Plan of Treatment Upcoming Encounters Date Type Specialty Care Team Description 02/19/2022 Scheduled View Only Hematology and Aaron Romero MD [facility] [place] [address] Oncology Maricarmen Payton [address] [place] [address] 02/19/2022 TH Visit (TeleHealth) Hematology and Michael Romero Oncology [facility] [address] [place], [place] [address] (Wo rk) 02/19/2022 Infusion Hematology and Oncology documented as of this encounter Visit Diagnoses Not on filedocumented in this encounter Care Teams Camp Cook Relationship Specialty Start Date End Date None PCP - General 12/03/19 None documented as of this encounter
--- OUTSIDE RECORDS SUMMARY | 2022-02-19 01:09 | XMS_ITS | Encounter Summary ---
:1940 Author Organization [facility] [place] [address] Care Team Providers Name Role Phone None Primary Care Provider Unavailable Reason for Visit High Dollar Medication (Routine) - Authorized Specialty Diagnoses / Procedures Referred By Contact Refer red To Contact Hematology and Diagnoses Malignant neoplasm of abdomen Malignant neoplasm of abdomen Jamie Jean-Baptiste Gregory H, Oncology Procedures CHEMO MD MANAN Camejo [address] [place] [address] [place], [place] ONCOLOGY [address] [place], [place] Fax: Referral ID Status Reason Start Date Expiration Date Visits V isits Requested Authorized [id number] Authorized 03/17/2021 02/26/2022 99 99 Encounter Details Date Type Department Care Team Description 04/17/2021 Office Visit Hematology/Oncology Aaron Romero MD [facility] [place] [address] Metastasis from colon cancer; at [facility] Nancy Ewing APRN [address] [place] [address] DR HEMATOLOGY ONCOLOGY [place], [place] [id number] Stage IV adenocarcinoma of small bowel [address] [place] [phone] Social History Tobacco Use Types Packs/Day [...] because of significant intra abdominal adhesions Path ([facility] review) - Omentum, mass, [...] isn't much to do. She works on [employer] and reads also. Once has some pain [...] or feet. Soc Hx: , lives in [place], [place] Tob - Never Etoh - None Worked as [employer]. Fam Hx: Father - Mother - breast [...] pelvis. [place] [facility] and underwent resection on 12/05/2019 - path [...] the absence of cold, laryngeal dysesthesia, fatigue, angina/IA, hypersensitivity reactions and others.?She was given informationalhandouts [...] ] Yes[ X ] Drug: capecitabine Oncologist- [place] LastTreatment: NO: YES: Claustrophobia or requires sedation [...] assessment information entered. Support Systems: Treva Jasso. [facility] transportation plan: [X ]private vehicle [ [...] Aaron Romero MD [facility] [place] [address] Oncology Maricarmen Payton, [address] [place] [address] 02/19/2022 TH Visit (TeleHealth) Hematology and Michael Romero , Oncology [facility] ONCOLOGY [place], [place] [address] (Wo rk) 02/19/2022 Infusion Hematology [...] documented in this encounter Care Teams Hospital Technician Relationship Specialty Start Date End Date None PCP - General 12/03/19 None documented as of this encounter
--- OUTSIDE RECORDS SUMMARY | 2022-02-19 01:09 | XMS_ITS | Encounter Summary ---
:1940 [place] [address] Care Team Providers Name Role Phone None Primary Care Provider Unavailable Encounter Details Date Type Department Care Team Description 04/01/2020 Ancillary [facility] [place] [address] ONCOLOGY [phone] [place], [place] [address] (Wo rk) Social History Tobacco Use Types Packs/Day Years Used Date Smoking Tobacco: Never Smokeless Tobacco: Never Sex Assigned at Date Recorded Not on file documented as of this encounter Plan of Treatment Upcoming Encounters Date Type Specialty Care Team Description 02/19/2022 Scheduled View Only Hematology and Aaron Romero MD [facility] [place] [address] Oncology Maricarmen Payton, [address] [place] [address] 02/19/2022 TH Visit (TeleHealth) Hematology and Michael Romero Oncology [facility] ONCOLOGY [place], [place] [address] (Wo rk) 02/19/2022 Infusion Hematology [...] / Laterality Volume Narrative BHARTI - 04/16/2021 11:02 AM EST This exam is auto-finalizing. It's purpo se is for storage only. Michael Romero MD IMJose FILM LIBRARY ORDERABLES Performing Organization Address City/State/ZIP Code Phon e Number [place], [place] documented in this encounter Visit Diagnoses Not on filedocumented in this encounter Care Teams Steamer Gum Candy Relationship Specialty Start Date End Date None PCP - General 12/03/19 None documented as of this encounter
--- OUTSIDE RECORDS SUMMARY | 2022-02-19 01:09 | XMS_ITS | Encounter Summary ---
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 Michael Romero MD Stj Hem Onc Infusion [facility] COL[facility]ECTAL CANC[facility] - FOLFOX-6 (14 DAY) [address] [place] [phone] Fax: Referral ID Status Reason Start Date Expiration Date Visits V isits Requested Authorized [id number] Authorized 05/08/2021 02/26/2022 99 99 Encounter Details Date Type Department Care Team Description 05/26/2021 Infusion Hematology Oncology at [facility] colon cancer with [facility] metastasis to other site [address] [place] [phone] Social History Tobacco Use Types [...] complaints today. OBJECTIVE LAB DATA: 05/26/21 at [facility], labs reviewed and found adequate for treatment. [...] clinic hours (8am-5pm Tuesday-Tuesday): pt. can call [phone] with questions or concerns. After clinic hours (5pm-8am Tuesday-Tuesday and weekends) pt can call [phone] and ask for the water mechanic/oncologist clinical applications specialist. She was also provided with the patient [...] View Only Hematology and Aaron Romero MD [facility] [place] [address] Oncology Maricarmen Payton[address] [place] [address] 02/19/2022 TH Visit (TeleHealth) Hematology and Michael Romero Oncology [facility] [place], [place] [address] (Wo rk) 02/19/2022 Infusion Hematology [...] documented in this encounter Care Teams Registered Nurse Teacher Relationship Specialty Start Date End Date None PCP - General 12/03/19 None documented as of this encounter
--- OUTSIDE RECORDS SUMMARY | 2022-02-19 01:09 | XMS_ITS | Encounter Summary ---
:1940 [place] [address] Care Team Providers Name Role Phone None Primary Care Provider Unavailable Encounter Details Date Type Department Care Team Description 12/25/2019 Ancillary [facility] [place] [address] ONCOLOGY [phone] [place], [place] [address] (Wo rk) Social History Tobacco Use Types Packs/Day Years Used Date Smoking Tobacco: Never Smokeless Tobacco: Never Sex Assigned at Date Recorded Not on file documented as of this encounter Plan of Treatment Upcoming Encounters Date Type Specialty Care Team Description 02/19/2022 Scheduled View Only Hematology and Aaron Romero MD [facility] [place] [address] Oncology Maricarmen Payton, [address] [place] [address] 02/19/2022 TH Visit (TeleHealth) Hematology and Michael Romero Oncology [facility] ONCOLOGY [place], [place] [address] (Wo rk) 02/19/2022 Infusion Hematology [...] Organization Address City/State/ZIP Code Phon e Number [facility] BHARTI [place], [place] documented in this encounter Visit Diagnoses Not on filedocumented in this encounter Care Teams Railroad Operator Relationship Specialty Start Date End Date None PCP - General 12/03/19 None documented as of this encounter
--- OUTSIDE RECORDS SUMMARY | 2022-02-19 01:09 | XMS_ITS | Encounter Summary ---
:1940 [place] [address] Care Team Providers Name Role Phone Unavailable Primary Care Provider Unavailable Encounter Details Date Type Department Care Team Description 10/23/2019 Ancillary Procedure [facility] [place] [address] ONCOLOGY [phone] [place], [place] [address] (Wo rk) Social History Tobacco Use Types Packs/Day Years Used Date Smoking Tobacco: Never Assessed Sex Assigned at Date Recorded Not on file documented as of this encounter Plan of Treatment Upcoming Encounters Date Type Specialty Care Team Description 02/19/2022 Scheduled View Only Hematology and Aaron Romero MD [facility] [place] [address] Oncology Maricarmen Payton[address] HEMATOLOGY AND [place], [place] [address] 02/19/2022 TH Visit (TeleHealth) Hematology and Michael Romero Oncology [facility] [address] [place], [place] [address] (Wo rk) 02/19/2022 Infusion Hematology [...] Address City/State/ZIP Code Phon e Number RAD [place], [place] documented in this encounter Visit Diagnoses Not on filedocumented in this encounter
--- OUTSIDE RECORDS SUMMARY | 2022-02-19 01:09 | XMS_ITS | Encounter Summary ---
:1940 Author Organization [facility] [place] [address] Care Team Providers Name Role Phone None Primary Care Provider Unavailable Encounter Details Date Type Department Care Team Description 06/12/2021 Orders Only Hematology/Oncology at [facility] [address] [place] [address] ONCOLOGY [facility] [id number] [phone] Social History Tobacco Use Types Packs/Day Years Used Date Smoking Tobacco: Never Smokeless Tobacco: Never Sex Assigned at Date Recorded Not on file documented as of this encounter Plan of Treatment Upcoming Encounters Date Type Specialty Care Team Description 02/19/2022 Scheduled View Only Hematology and Aaron Romero MD [facility] [place] [address] Oncology Maricarmen Payton [address] HEMATOLOGY [place] [address] 02/19/2022 TH Visit (TeleHealth) Hematology and Michael Romero Oncology [facility] DR [place], [place] [address] (Wo rk) 02/19/2022 Infusion Hematology and Oncology documented as of this encounter Visit Diagnoses Not on filedocumented in this encounter Care Teams Head Transfer Clerk Relationship Specialty Start Date End Date None PCP - General 12/03/19 None documented as of this encounter
--- OUTSIDE RECORDS SUMMARY | 2022-02-19 01:09 | XMS_ITS | Encounter Summary ---
:1940 Author Organization [facility] Address [facility] [place] [address] Care Team Providers Name Role Phone None Primary Care Provider Unavailable Encounter Details Date Type Department Care Team Description 06/25/2021 [facility]phone [facility] [place] [facility] [address] [place] [address] [phone] Social History Tobacco Use Types [...] and shewanted to make sure that approved. [phone] best call back number RN Follow-up Discussed [...] Romero MD [facility] [place] [address] Oncology Maricarmen Payton[address] [address] 02/19/2022 TH Visit (TeleHealth) Hematology and Michael Romero , Oncology [facility] ONCOLOGY [place], [place] [address] (Wo rk) 02/19/2022 Infusion Hematology and Oncology documented as of this encounter Visit Diagnoses Not on filedocumented in this encounter Care Teams Teacher Education Director Relationship Specialty Start Date End Date None PCP - General 12/03/19 None documented as of this encounter
--- OUTSIDE RECORDS SUMMARY | 2022-02-19 01:09 | XMS_ITS | Encounter Summary ---
:1940 Author Organization [place] [address] Care Team Providers Name Role Phone None [...] COLORECTAL CANCER - FOLFOX-6 (14 DAY) [address] [place] [phone] Fax: Referral ID Status Reason Start Date Expiration Date Visits V isits Requested Authorized [id number] Authorized 05/08/2021 02/26/2022 99 99 Encounter Details Date Type Department Care Team Description 06/12/2021 Infusion Hematology Oncology at [facility] colon cancer with [facility] metastasis to other site [address] [place] [address] [phone] Social History Tobacco Use Types [...] Leon RN and Arlet Santillan pharmacist 5fu CADSlime .pump checked after 20 minutes of running [...] View Only Hematology and Aaron Romero MD [facility] [place] [address] Oncology Maricarmen Payton[address] [place] [address] 02/19/2022 TH Visit (TeleHealth) Hematology and Michael Romero Oncology MD [facility] [address] [place], [place] [address] (Wo rk) 02/19/2022 Infusion Hematology [...] Routine documented in this encounter Care Teams Runway Model Relationship Specialty Start Date End Date None PCP - General 12/03/19 None documented as of this encounter
--- OUTSIDE RECORDS SUMMARY | 2022-02-19 01:09 | XMS_ITS | Encounter Summary ---
:1940 Author Organization [facility] [place] [address] Care Team Providers Name Role Phone None Primary Care Provider Unavailable Encounter Details Date Type Department Care Team Description 06/26/2021 Office Visit Hematology/Oncology Aaron Romero MD [facility] [place] [address] [facility] [address] [place] [address] [place] [address] of small bowel [address] [place] [phone] Social History Tobacco Use Types Packs/Day [...] in this encounter Progress Notes Mckenna Farris, MULE DEVELOPER - 06/26/2021 10:00 AM EDT Subjective Patient [...] the absence of cold, laryngeal dysesthesia, fatigue, angina/[place], hypersensitivity reactions and others.?She??was given informational handouts [...] questions/concerns or new symptoms. Mckenna Farris MSN, MULE DEVELOPER, AOCNP Medical Oncology documented in this encounter Plan of Treatment Upcoming Encounters Date Type Specialty Care Team Description 02/19/2022 Scheduled View Only Hematology and Aaron Romero MD [facility] [address] Oncology Maricarmen Payton APRN [address] [place] [address] [place] [address] 02/19/2022 TH Visit (TeleHealth) Hematology and Michael Romero Oncology [facility] [place] [address] (Wo rk) 02/19/2022 Infusion Hematology and Oncology documented as of this encounter Visit Diagnoses Diagnosis 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
--- OUTSIDE RECORDS SUMMARY | 2022-02-19 01:09 | XMS_ITS | Encounter Summary ---
:1940 Author Organization [facility] [place] [address] Care Team Providers Name Role Phone None Primary Care Provider Unavailable Encounter Details Date Type Department Care Team Description 04/01/2021 Hospital Encounter Laboratory [facility] [place] [address] Social History Tobacco Use Types Packs/Day [...] Aaron Romero MD [facility] [place] [address] Oncology Maricarmen Payton[address] [place] [address] 02/19/2022 TH Visit (TeleHealth) Hematology and Michael Romero Oncology MD [facility] ONCOLOGY [place], [place] 0375 (Wo rk) 02/19/2022 Infusion Hematology [...] Organization Address City/State/[place] [address] Surgical Pathology Report (04/01/2021 3:27 PM EST) Component Value Ref Test Analysis Performed At [facility] gist Range Method Time Signature Surgical [id number] ? Location: OPW MATI DALAL Report The signing pathologist has (i) examined the relevant preparation(s) for the MEMORIAL specimen(s) and (ii) rendered or confirmed the diagnosis(es) . HOSPITAL LABORATORY . ?Surgic al Pathology DIAGNOSIS CORRECTED REPORT (See Discussion) _ CONSULTATION CASE Outside slide(s) labeled [id number], collection date 021 Omentum, mass, excision: - Metastatic adenocarcinoma, consistent with patient's known colorectal primary. ( ? see note) Note: Outside immunostaining for CDX2 is positive, sup porting the diagnosis. Electronically signed by: ?Finesse Barrett MD Verified: ??05/11/2021 9:28 ?? Pathologist Performed at: ??[facility] [place], [place], [place] DISCUSSION Correction Note: ??Changed CN accession number ??There are no other changes to the text of this report. _ ADDITIONAL STUDIES Whole slide scan: A1, CDX2 SPECIMEN(S) SUBMITTED CONSULTATION CASE A - 5 slide(s) labeled [id number], collection date 1. [id number] Report to: [facility] Surgical Pathology Department [facility], [facility], [address]nd Floor [address] [place] [address] ??[id number] CLINICAL INFORMATION _. SPECIMEN PROCESSING _ pathology [...] Organization Address City/State/[place] [address] documented in this encounter Visit Diagnoses Not on filedocumented in this encounter Care Teams Climatology Professor Relationship Specialty Start Date End Date None PCP - General 12/03/19 None documented as of this encounter
--- OUTSIDE RECORDS SUMMARY | 2022-02-19 01:09 | XMS_ITS | Encounter Summary ---
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 [facility] Sofia Rodriguez [address] [place] [address] Social History Tobacco Use Types Packs/Day Years Used Date Smoking Tobacco: Never Assessed Sex Assigned at Date Recorded Not on file documented as of this encounter Plan of Treatment Upcoming Encounters Date Type Specialty Care Team Description 02/19/2022 Scheduled View Only Hematology and Aaron Romero MD [facility] [place] [place] [address] Oncology Maricarmen Payton[address] HEMATOLOGY AND [place], [place] [address] 02/19/2022 TH Visit (TeleHealth) Hematology and Michael Romero Oncology [facility] [place], [place] [address] (Wo rk) 02/19/2022 Infusion Hematology and Oncology documented as of this encounter Visit Diagnoses Not on filedocumented in this encounter
--- OUTSIDE RECORDS SUMMARY | 2022-02-19 01:09 | XMS_ITS | Encounter Summary ---
:1940 [place] [address] Care Team Providers Name Role Phone None Primary Care Provider Unavailable Encounter Details Date Type Department Care Team Description 01/23/2020 Ancillary Procedure [facility] [place] [address] ONCOLOGY [phone] [place], [place] [address] (Wo rk) Social History Tobacco Use Types Packs/Day Years Used Date Smoking Tobacco: Never Smokeless Tobacco: Never Sex Assigned at Date Recorded Not on file documented as of this encounter Plan of Treatment Upcoming Encounters Date Type Specialty Care Team Description 02/19/2022 Scheduled View Only Hematology and Aaron Romero MD [facility] [address] Oncology Maricarmen Payton, [address] [place] [address] 02/19/2022 TH Visit (TeleHealth) Hematology and Michael Romero Oncology [facility] ONCOLOGY [place], [place] [address] (Wo rk) 02/19/2022 Infusion Hematology [...] / Laterality Volume Narrative BHARTI - 04/16/2021 10:56 AM EST This exam is auto-finalizing. It's purpo se is for storage only. Michael Romero MD IMJose FILM LIBRARY ORDERABLES Performing Organization Address City/State/ZIP Code Phon e Number [place], [place] documented in this encounter Visit Diagnoses Not on filedocumented in this encounter Care Teams Parts Counterperson Relationship Specialty Start Date End Date None PCP - General 12/03/19 None documented as of this encounter
--- OUTSIDE RECORDS SUMMARY | 2022-02-19 01:09 | XMS_ITS | Encounter Summary ---
:1940 [place] [address] Care Team Providers Name Role Phone None Primary Care Provider Unavailable Encounter Details Date Type Department Care Team Description 12/24/2020 Ancillary Procedure Radiology Library at Jorge Rom[facility] [place] [address] ONCOLOGY [phone] [place], [place] 0[address] (Wo rk) Social History Tobacco Use Types Packs/Day Years Used Date Smoking Tobacco: Never Smokeless Tobacco: Never Sex Assigned at Date Recorded Not on file documented as of this encounter Plan of Treatment Upcoming Encounters Date Type Specialty Care Team Description 02/19/2022 Scheduled View Only Hematology and Aaron Romero MD [facility] [place] [address] Oncology Maricarmen Payton[address] [address] 02/19/2022 TH Visit (TeleHealth) Hematology and Michael Romero Oncology [facility] [address] [place], [place] [address] (Wo rk) 02/19/2022 Infusion Hematology [...] Organization Address City/State/ZIP Code Phon e Number [facility] BHARTI [place], [place] documented in this encounter Visit Diagnoses Not on filedocumented in this encounter Care Teams Glazier Artist Relationship Specialty Start Date End Date None PCP - General 12/03/19 None documented as of this encounter
--- OUTSIDE RECORDS SUMMARY | 2022-02-19 01:09 | XMS_ITS | Encounter Summary ---
:1940 [place] [address] Care Team Providers Name Role Phone Unavailable Primary Care Provider Unavailable Encounter Details Date Type Department Care Team Description 10/29/2019 Ancillary Procedure [facility] [place] [address] ONCOLOGY [phone] [place], [place] [address] (Wo rk) Social History Tobacco Use Types Packs/Day Years Used Date Smoking Tobacco: Never Assessed Sex Assigned at Date Recorded Not on file documented as of this encounter Plan of Treatment Upcoming Encounters Date Type Specialty Care Team Description 02/19/2022 Scheduled View Only Hematology and Aaron Romero MD [facility] [place] [address] Oncology Maricarmen Payton[address] HEMATOLOGY AND [place], [place] [address] 02/19/2022 TH Visit (TeleHealth) Hematology and Michael Romero Oncology [facility] [address] [place], [place] [address] (Wo rk) 02/19/2022 Infusion Hematology [...] Address City/State/ZIP Code Phon e Number RAD [place], [place] documented in this encounter Visit Diagnoses Not on filedocumented in this encounter
--- OUTSIDE RECORDS SUMMARY | 2022-02-19 01:09 | XMS_ITS | Encounter Summary ---
:1940 [place] [address] Care Team Providers Name Role Phone None Primary Care Provider Unavailable Encounter Details Date Type Department Care Team Description 05/05/2021 Telephone Hematology and Oncology at [facility] Pricila stewart DO [facility] [place] Slime snow HEMATOLOGY/[place] [address] [place] [address] [phone] (Wo rk) Social History Tobacco Use Types Packs/Day Years Used Date Smoking Tobacco: Never Smokeless Tobacco: Never Sex Assigned at Date Recorded Not on file documented as of this encounter Miscellaneous Notes Telephone Encounter - Pricila Gill DO - 05/05/2021 6:59 PM EST Patient ID: Joy Armstrong : 1940 Call from: Dr. Debbie Méndez, [facility] radiology. Joy Armstrong is a [...] Gill DO Fellow, Hematology and Medical Oncology [facility] Pager: [phone], 05/05/21, 7:02 PM CC: Dr. Romero. documented in this encounter Plan of Treatment Upcoming Encounters Date Type Specialty Care Team Description 02/19/2022 Scheduled View Only Hematology and Aaron Romero MD [facility] [place] [place] [address] Oncology Maricarmen Payton[address] [place] [address] 02/19/2022 TH Visit (TeleHealth) Hematology and Michael Romero Oncology [facility] [address] [place], [place] [address] (Wo rk) 02/19/2022 Infusion Hematology and Oncology documented as of this encounter Visit Diagnoses Not on filedocumented in this encounter Care Teams Orthotics Technician Relationship Specialty Start Date End Date None PCP - General 12/03/19 None documented as of this encounter
--- OUTSIDE RECORDS SUMMARY | 2022-02-19 01:09 | XMS_ITS | Encounter Summary ---
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 Epperson (along with Drs. Smyth & Kathleen). She's having a JOSE ROBERTO, BSO with Dr. Epperson. Noreen CPT code 06299, Am Admit documented in this encounter Plan of Treatment Upcoming Encounters Date Type Specialty Care Team Description 02/19/2022 Scheduled View Only Hematology and Aaron Romero MD [facility] [place] [address] Oncology Maricarmen Payton[address] AND [place], [place] [address] 02/19/2022 TH Visit (TeleHealth) Hematology and Michael Romero , Oncology [facility] [place]COLOGY [place] [address] (Wo rk) 02/19/2022 Infusion Hematology and Oncology documented as of this encounter Visit Diagnoses Not on filedocumented in this encounter Care Teams Obgyn Nurse Relationship Specialty Start Date End Date None PCP - General 12/03/19 None documented as of this encounter
--- OUTSIDE RECORDS SUMMARY | 2022-02-19 01:09 | XMS_ITS | Encounter Summary ---
:1940 Author Organization [facility] [place] [address] Care Team Providers Name Role Phone None Primary Care Provider Unavailable Reason for Visit Surgical (Routine) - Canceled Specialty Diagnoses / Procedures Referred By Contact Refer red To Contact Diagnoses Hydrosalpinx Dannie Epperson DO Procedures HYSTERECTOMY, TOTAL ABD., W W/O BSO [address] [place] [address] OBSTETRICS [place] [address] Referral ID Status Reason Start Expiration Visits Visits Date Date Requested Authorized [id number] Canceled Specialty 12/03/2019 05/31/2020 1 1 Service Requested Encounter Details Date Type Department Care Team Description 12/05/2019 Ext Surgery or [facility] Dannie Epperson DO Malignant neoplasm Single [facility] [address] [place] [address] of ascending colon [address] [facility] OBSTETRICS [place], [place] GYNECOLOGY [address] [place] [address] (Wo rk) Social History Tobacco Use Types Packs/Day Years Used Date Smoking Tobacco: Never Smokeless Tobacco: Never Sex Assigned at Date Recorded Not on file documented as of this encounter Procedure Notes Dannie Epperson DO - 12/05/2019 7:30 AM EDT [facility] BRIEF OPERATIVE NOTE Date: 12/05/2019 Preop Dx: R adnexal cyst, colon cancer, bladder cancer Postop Dx: same Procedure: JOSE ROBERTO-BSO Surgeon: Zeenat Blast Furnace Helper: Kahlil Hackett MD, PGY2 Anesthesia: GETA EBL: [...] Aaron Romero MD [facility] [place] [address] Oncology Maricarmen Payton[address] [place] [address] 02/19/2022 TH Visit (TeleHealth) Hematology and Michael Romero Oncology [facility] [address] [place], [place] [address] (Wo rk) 02/19/2022 Infusion Hematology and Oncology documented as of this encounter Visit Diagnoses Diagnosis 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
--- OUTSIDE RECORDS SUMMARY | 2022-02-19 01:09 | XMS_ITS | Encounter Summary ---
:1940 [place] [address] Care Team Providers Name Role Phone Unavailable Primary Care Provider Unavailable Encounter Details Date Type Department Care Team Description 10/03/2019 Ancillary Procedure [facility] [place] [address] ONCOLOGY [phone] [place], [place] [address] (Wo rk) Social History Tobacco Use Types Packs/Day Years Used Date Smoking Tobacco: Never Assessed Sex Assigned at Date Recorded Not on file documented as of this encounter Plan of Treatment Upcoming Encounters Date Type Specialty Care Team Description 02/19/2022 Scheduled View Only Hematology and Aaron Romero MD [facility] [place] [address] Oncology Maricarmen Payton[address] HEMATOLOGY AND [place], [place] [address] 02/19/2022 TH Visit (TeleHealth) Hematology and Michael Romero Oncology [facility] [address] [place], [place] [address] (Wo rk) 02/19/2022 Infusion Hematology [...] / Laterality Volume Narrative BHARTI - 04/16/2021 11:11 AM EST This exam is auto-finalizing. It's purpo se is for storage only. Michael Romero MD IMJose FILM LIBRARY ORDERABLES Performing Organization Address City/State/ZIP Code Phon e Number [facility] BHARTI [place], [place] documented in this encounter Visit Diagnoses Not on filedocumented in this encounter
--- OUTSIDE RECORDS SUMMARY | 2022-02-19 01:09 | XMS_ITS | Encounter Summary ---
:1940 Author Organization [facility] [place] [address] Care Team Providers Name Role Phone None Primary Care Provider Unavailable Encounter Details Date Type Department Care Team Description 06/12/2021 Office Visit Hematology/Oncology Mckenna Farris, Prim marycruz colon cancer at [facility] RN BONE MARROW TRANSPLANT with metastasis to [address] [place] [address] other site [place], [place] MEDICAL ONCOLOG [place] [address] [place], [place] [phone] (Wo rk) Social History Tobacco Use Types [...] in this encounter Progress Notes Mckenna Farris, RN BONE MARROW TRANSPLANT - 06/12/2021 9:30 AM EST Subjective Patient [...] the pelvis. ?? She was seen at [facility] and underwent resection [...] laryngeal dysesthesia, fatigue, angina/[place], hypersensitivity reactions and others.?She??was given informational handouts [...] questions/concerns or new symptoms. Mckenna Farris MSN, RN BONE MARROW TRANSPLANT, AOCNP Medical Oncology documented in this encounter Plan of Treatment Upcoming Encounters Date Type Specialty Care Team Description 02/19/2022 Scheduled View Only Hematology and Aaron Romero MD [facility] [place] [address] Oncology Maricarmen Payton APRN [address] [place] [place] [address] [place] [address] 02/19/2022 TH Visit (TeleHealth) Hematology and Michael Romero Oncology [facility] ONCOLOGY [place], [place] [address] (Wo rk) 02/19/2022 Infusion Hematology [...] in this encounter Care Teams Director Of Housing Relationship Specialty Start Date End Date None PCP - General 12/03/19 None documented as of this encounter
--- OUTSIDE RECORDS SUMMARY | 2022-02-19 01:11 | XMS_ITS | Encounter Summary ---
:1940 Author Organization [facility] Address [address] [place] [address] Care Team Providers Name Role Phone Manuel Isaacs MD Primary Care Provider Encounter Details Date Type Department Care Team Description 10/09/2021 Lab Requisition [facility] Outr Resulting Lab, Pathology & Laboratory Provider [facility] [address] [place], [place] [id number] Social History Tobacco Use Types Packs/Day Years Used Date Smoking Tobacco: Never Smokeless Tobacco: Never Alcohol Use Standard Drinks/Week Comments No 0 [...] this encounter Results CEA (10/09/2021 8:12 EDT) athologist Signature CEA 4.0 See Note 10/09/2021 [facility] ng/mL 18:13 EDT [facility] Comment: % Distribution of CEA (ng/mL): ??0.0 - 2.5 in 98.2% of Nonsmokers and 87.3% of Smokers ??2.6 - 5 in 1.8% of Nonsmokers and 8% of Smokers ??5.1 - 10.1 in 4.7% of Smokers NOTE: Serum CEA concentration should not be in terpeted as absolute evidence for the presence or absence of malignant disease. ?? Assayed on Siemens Chef Dovunqueaur XPT usi ng chemiluminescent technology. ??Values obtained by different assay methods cannot be used interchangeably. Specimen Anatomical Collection Method Collection Time Receive d Time (Source) Location / / Volume Laterality Blood VENOUS BLOOD / 10/09/2021 8:12 10/09/2021 Unknown EDT 17:12 EDT Provider Outr Resulting Lab CHEMISTRY & BLOOD GAS JULIA GALARZA Performing Organization Address City/State/ZIP Code Phon e Number [facility] [address] [place] [address] SERVICES documented in this encounter Visit Diagnoses Not on filedocumented in this encounter Care Teams Demurrage Clerk Relationship Specialty Start Date End Date Manuel Isaacs MD PCP - General 04/02/[address] [place] [phone] documented as of this encounter
--- OUTSIDE RECORDS SUMMARY | 2022-02-19 01:11 | XMS_ITS | Encounter Summary ---
:1940 Author Organization [facility] Address [address] [place] [address] Care Team Providers Name Role Phone Manuel Isaacs MD Primary Care Provider Encounter Details Date Type Department Care Team Description 08/28/2021 Lab Requisition [facility] Outr Resulting Lab, Pathology & Laboratory Provider [facility] [address] [place] [address] Social History Tobacco Use Types [...] this encounter Results CEA (08/28/2021 6:55 EDT) athologist Signature CEA 3.4 See Note 08/28/2021 [facility] ng/mL 19:26 EDT [facility] Comment: % Distribution of CEA (ng/mL): ??0.0 - 2.5 in 98.2% of Nonsmokers and 87.3% of Smokers ??2.6 - 5 in 1.8% of Nonsmokers and 8% of Smokers ??5.1 - 10.1 in 4.7% of Smokers NOTE: Serum CEA concentration should not be in terpeted as absolute evidence for the presence or absence of malignant disease. ?? Assayed on Siemens [employer]aur XPT usi ng chemiluminescent technology. ??Values obtained by different assay methods cannot be used interchangeably. Specimen Anatomical Collection Method Collection Time Receive d Time (Source) Location / / Volume Laterality Blood VENOUS BLOOD / 08/28/2021 6:55 08/28/2021 Unknown EDT 17:04 EDT Provider Outr Resulting Lab CHEMISTRY & BLOOD GAS JULIA GALARZA Performing Organization Address City/State/ZIP Code Phon e Number [facility] [address] [place] [address] SERVICES documented in this encounter Visit Diagnoses Not on filedocumented in this encounter Care Teams Police Specialist Relationship Specialty Start Date End Date Manuel Isaacs MD PCP - General 04/02/[address] [place] [phone] documented as of this encounter
--- OUTSIDE RECORDS SUMMARY | 2022-02-19 01:11 | XMS_ITS | Encounter Summary ---
:1940 Author Organization [facility] Address [address] [place] [address] Care Team Providers Name Role Phone Manuel Isaacs MD Primary Care Provider Encounter Details Date Type Department Care Team Description 01/29/2022 Lab Requisition [facility] Outr Resulting Lab, Pathology & Laboratory Provider [facility] [address] [place], [place] [id number] Social History Tobacco Use Types Packs/Day Years [...] Date/Time Associated Diagnosis Comme nts CEA Routine 01/29/2022 8:00 EDT Results for this procedure are i n the results section . documented in this encounter Results CEA (01/29/2022 8:00 EDT) athologist Signature CEA 4.5 See Note 01/29/2022 [facility] ng/mL 19:49 EDT [facility]ENTER [facility] Comment: % Distribution of CEA (ng/mL): ??0.0 - 2.5 in 98.2% of Nonsmokers and 87.3% of Smokers ??2.6 - 5 in 1.8% of Nonsmokers and 8% of Smokers ??5.1 - 10.1 in 4.7% of Smokers NOTE: Serum CEA concentration should not be in terpeted as absolute evidence for the presence or absence of malignant disease. ?? Assayed on Siemens Cellityaur XPT usi ng chemiluminescent technology. ??Values obtained by different assay methods cannot be used interchangeably. Specimen Anatomical Collection Method Collection Time Receive d Time (Source) Location / / Volume Laterality Blood VENOUS BLOOD / 01/29/2022 8:00 01/29/2022 Unknown EDT 18:45 EDT Provider Outr Resulting Lab CHEMISTRY & BLOOD GAS JULIA GALARZA Performing Organization Address City/State/ZIP Code Phon e Number [facility] [address] [place] [address] SERVICES documented in this encounter Visit Diagnoses Not on filedocumented in this encounter Care Teams Plastic Injection Mold Maker Relationship Specialty Start Date End Date Manuel Isaacs MD PCP - General 04/02/[address] [place] [phone] documented as of this encounter
--- OUTSIDE RECORDS SUMMARY | 2022-02-19 01:11 | XMS_ITS | Encounter Summary ---
:1940 Author Organization [facility] Address [address] [place] [address] Care Team Providers Name Role Phone Manuel Isaacs MD Primary Care Provider Encounter Details Date Type Department Care Team Description 10/23/2021 Lab Requisition [facility] Outr Resulting Lab, Pathology & Laboratory Provider [facility] [address] [place], [place] [id number] Social History Tobacco Use Types Packs/Day Years [...] this encounter Results CEA (10/23/2021 10:47 EDT) athologist Signature CEA 4.4 See Note 10/23/2021 [facility] ng/mL 22:37 EDT [facility]ENTER [facility] Comment: % Distribution of CEA (ng/mL): ??0.0 - 2.5 in 98.2% of Nonsmokers and 87.3% of Smokers ??2.6 - 5 in 1.8% of Nonsmokers and 8% of Smokers ??5.1 - 10.1 in 4.7% of Smokers NOTE: Serum CEA concentration should not be in terpeted as absolute evidence for the presence or absence of malignant disease. ?? Assayed on [employer] XPT usi ng chemiluminescent technology. ??Values obtained by different assay methods cannot be used interchangeably. Specimen Anatomical Collection Method Collection Time Receive d Time (Source) Location / / Volume Laterality Blood VENOUS BLOOD / 10/23/2021 10:47 2 Unknown EDT 21:12 EDT Provider Outr Resulting Lab CHEMISTRY & BLOOD GAS JULIA GALARZA Performing Organization Address City/State/ZIP Code Phon e Number [facility] [address] [place] [address] SERVICES documented in this encounter Visit Diagnoses Not on filedocumented in this encounter Care Teams Rigger Apprentice Relationship Specialty Start Date End Date Manuel Isaacs MD PCP - General 04/02/[address] [place] [phone] documented as of this encounter
--- OUTSIDE RECORDS SUMMARY | 2022-02-19 01:11 | XMS_ITS | Encounter Summary ---
:1940 Author Organization [facility] Address [address] [place] [address] Care Team Providers Name Role Phone Manuel Isaacs MD Primary Care Provider Encounter Details Date Type Department Care Team Description 11/06/2021 Lab Requisition [facility] Outr Resulting Lab, Pathology & Laboratory Provider [facility] [address] [place] [address] Social History Tobacco Use Types [...] this encounter Results CEA (11/06/2021 9:55 EDT) athologist Signature CEA 3.8 See Note 11/09/2021 [facility] ng/mL 10:08 EDT CENTER [facility] Comment: % Distribution of CEA (ng/mL): ??0.0 - 2.5 in 98.2% of Nonsmokers and 87.3% of Smokers ??2.6 - 5 in 1.8% of Nonsmokers and 8% of Smokers ??5.1 - 10.1 in 4.7% of Smokers NOTE: Serum CEA concentration should not be in terpeted as absolute evidence for the presence or absence of malignant disease. ?? Assayed on [employer] Health[employer] XPT usi ng chemiluminescent technology. ??Values obtained by different assay methods cannot be used interchangeably. Specimen Anatomical Collection Method Collection Time Receive d Time (Source) Location / / Volume Laterality Blood VENOUS BLOOD / 11/06/2021 9:55 11/06/2021 Unknown EDT 17:15 EDT Provider Outr Resulting Lab CHEMISTRY & BLOOD GAS JULIA GALARZA Performing Organization Address City/State/ZIP Code Phon e Number [facility] [address] [place] [address] SERVICES documented in this encounter Visit Diagnoses Not on filedocumented in this encounter Care Teams Software Applications Engineer Relationship Specialty Start Date End Date Manuel Isaacs MD PCP - General 04/02/[address] [place] [phone] documented as of this encounter
--- OUTSIDE RECORDS SUMMARY | 2022-02-19 01:11 | XMS_ITS | Encounter Summary ---
:1940 Author Organization [facility] Address [address] [place] [address] Care Team Providers Name Role Phone Manuel Isaacs MD Primary Care Provider Encounter Details Date Type Department Care Team Description 08/07/2021 Lab Requisition [facility] Outr Resulting Lab, Pathology & Laboratory Provider [facility] [address] [place] [address] Social History Tobacco Use Types [...] this encounter Results CEA (08/07/2021 10:25 EDT) athologist Signature CEA 5.1 See Note 08/07/2021 [facility] ng/mL 18:38 EDT CENTER [facility] Comment: % Distribution of CEA (ng/mL): ??0.0 - 2.5 in 98.2% of Nonsmokers and 87.3% of Smokers ??2.6 - 5 in 1.8% of Nonsmokers and 8% of Smokers ??5.1 - 10.1 in 4.7% of Smokers NOTE: Serum CEA concentration should not be in terpeted as absolute evidence for the presence or absence of malignant disease. ?? Assayed on Siemens Letaur XPT usi ng chemiluminescent technology. ??Values obtained by different assay methods cannot be used interchangeably. Specimen Anatomical Collection Method Collection Time Receive d Time (Source) Location / / Volume Laterality Blood VENOUS BLOOD / 08/07/2021 10:25 2 Unknown EDT 16:50 EDT Provider Outr Resulting Lab CHEMISTRY & BLOOD GAS JULIA GALARZA Performing Organization Address City/State/ZIP Code Phon e Number [facility] [address] [place] [address] SERVICES documented in this encounter Visit Diagnoses Not on filedocumented in this encounter Care Teams Pie Dough Roller Relationship Specialty Start Date End Date Manuel Isaacs MD PCP - General 04/02/[address] [place] [phone] documented as of this encounter
--- OUTSIDE RECORDS SUMMARY | 2022-02-19 01:11 | XMS_ITS | Encounter Summary ---
:1940 Author Organization [facility] Address [address] [place] [address] Care Team Providers Name Role Phone Manuel Isaacs MD Primary Care Provider Encounter Details Date Type Department Care Team Description 08/21/2021 Lab Requisition [facility] Outr Resulting Lab, Pathology & Laboratory Provider [facility] [address] [place] [address] Social History Tobacco Use Types [...] this encounter Results CEA (08/21/2021 9:30 EDT) athologist Signature CEA 4.3 See Note 08/21/2021 [facility] ng/mL 19:30 EDT CENTER [facility] Comment: % Distribution of CEA (ng/mL): ??0.0 - 2.5 in 98.2% of Nonsmokers and 87.3% of Smokers ??2.6 - 5 in 1.8% of Nonsmokers and 8% of Smokers ??5.1 - 10.1 in 4.7% of Smokers NOTE: Serum CEA concentration should not be in terpeted as absolute evidence for the presence or absence of malignant disease. ?? Assayed on Siemens Sway Medicalaur XPT usi ng chemiluminescent technology. ??Values obtained by different assay methods cannot be used interchangeably. Specimen Anatomical Collection Method Collection Time Receive d Time (Source) Location / / Volume Laterality Blood VENOUS BLOOD / 08/21/2021 9:30 08/21/2021 Unknown EDT 18:01 EDT Provider Outr Resulting Lab CHEMISTRY & BLOOD GAS JULIA GALARZA Performing Organization Address City/State/ZIP Code Phon e Number [facility] [address] [place] [address] SERVICES documented in this encounter Visit Diagnoses Not on filedocumented in this encounter Care Teams Food Safety Director Relationship Specialty Start Date End Date Manuel Isaacs MD PCP - General 04/02/[address] [place] [phone] documented as of this encounter
--- OUTSIDE RECORDS SUMMARY | 2022-02-19 01:11 | XMS_ITS | Encounter Summary ---
:1940 Author Organization [facility] Address [address] [place] [address] Care Team Providers Name Role Phone Manuel Isaacs MD Primary Care Provider Encounter Details Date Type Department Care Team Description 09/11/[address] [facility] Outr Resulting Lab, Pathology & Laboratory Provider [facility] [address] [place], [place] [id number] Social History Tobacco Use Types Packs/Day Years [...] Date/Time Associated Diagnosis Comme nts CEA Routine 09/11/2021 9:35 EDT Results for this procedure are i n the results section . documented in this encounter Results CEA (09/11/2021 9:35 EDT) athologist Signature CEA 3.8 See Note 09/11/2021 [facility] ng/mL 17:57 EDT [facility]ENTER [facility] Comment: % Distribution of CEA (ng/mL): ??0.0 - 2.5 in 98.2% of Nonsmokers and 87.3% of Smokers ??2.6 - 5 in 1.8% of Nonsmokers and 8% of Smokers ??5.1 - 10.1 in 4.7% of Smokers NOTE: Serum CEA concentration should not be in terpeted as absolute evidence for the presence or absence of malignant disease. ?? Assayed on [employer]aur XPT usi ng chemiluminescent technology. ??Values obtained by different assay methods cannot be used interchangeably. Specimen Anatomical Collection Method Collection Time Receive d Time (Source) Location / / Volume Laterality Blood VENOUS BLOOD / 09/11/2021 9:35 09/11/2021 Unknown EDT 17:06 EDT Provider Outr Resulting Lab CHEMISTRY & BLOOD GAS JULIA GALARZA Performing Organization Address City/State/ZIP Code Phon e Number [facility] [address] [place] [address] SERVICES documented in this encounter Visit Diagnoses Not on filedocumented in this encounter Care Teams Shoe Handler Relationship Specialty Start Date End Date Manuel Isaacs MD PCP - General 04/02/[address] [place] [phone] documented as of this encounter
--- OUTSIDE RECORDS SUMMARY | 2022-02-19 01:11 | XMS_ITS | Clinical Summary ---
:1940 Author Organization [facility] Address [address] [place] [address] Care Team Providers Name Role Phone Manuel [...] Problems Problem Noted Date Colon cancer, ascending ([facility]) 11/19/2019 Malignant neoplasm of colon 11/19/2019 Overview: Added automatically from request for juan carlos contreras [id number] Sepsis 09/03/2015 Intra-abdominal infection 09/03/2015 Colon polyp 03/04/2011 Family history of polyps in the colon 03/04/2011 Encounters Date Type Specialty Care Team Description 01/29/2022 Lab Requisition [facility] Outr Resulting Lab , Provider 01/01/2022 Lab Requisition Clinical Laboratory Outr Resulting [...] Urge incontinence Family History Medical History Relation Comments Colon Cancer Maternal Grandfather Breast Cancer Mother Colon Cancer Mother Colon Polyps Mother Colon Cancer Sister 1 rectal Colon Polyps Sister 2 Relation Status Comments Maternal Grandfather Mother Sister 1 Alive Sister 2 Alive Social History Tobacco Use Types Packs/Day Years Used Date Smoking Tobacco: Never Smokeless Tobacco: Never Alcohol Use Standard Drinks/Week Comments No 0 (1 standard drink = 0.6 oz pure alcoho l) Sex Assigned at Date Recorded Not on file Obstetrics History Para Term AB IAB SAB Ectopic Multiple Living Live Births 4 4 4 4 4 Date Outcome GA [...] Hepatitis C Screen 1940 COVID-19 Vaccine (#1) 03/10/1941 Fall Risk Screening 09/09/2007 Procedures Procedure Name Priority Date/Time Associated Diagnosis Comme nts CEA Routine 01/29/2022 8:00 EDT Results for this procedure are i n the results section . CEA Routine 01/01/2022 8:00 EDT Results for [...] . from Last 3 Months Results CEA (01/29/2022 8:00 EDT)Only the most recent of5 resultswithin the time period is included. athologist Signature CEA 4.5 See Note 01/29/2022 [facility] ng/mL 19:49 EDT CENTER [facility] [...] malignant disease. ?? Assayed on Siemens [employer] Centaur XPT usi ng chemiluminescent technology. ??Values obtained by different assay methods cannot be used interchangeably. Specimen Anatomical Collection Method Collection Time Receive d Time (Source) Location / / Volume Laterality Blood VENOUS BLOOD / 01/29/2022 8:00 01/29/2022 Unknown EDT 18:45 EDT Provider Outr Resulting Lab CHEMISTRY & BLOOD GAS JULIA GALARZA [facility] Organization Address City/State/ZIP Code Phon e Number [facility] [address] [place] [address] SERVICES from Last 3 Months Insurance Payer Benefit Plan / Subscriber ID Effective Dates Phone Addre ss Type Group MEDICARE MEDICARE A/B [id number] 2007-Present [id number] [place] [id number] Joy Armstrong Personal/Family Self 1940 [address]) [place] [address] Joy Armstrong Personal/Family Self [address] [place] [address] Joy Armstrong Personal/Family Self [address] [place] [address] Joy Armstrong Personal/Family Self [address] [place] [address] Joy Armstrong Personal/Family Self [address] [place] [address] Joy Armstrong Personal/Family Self 1940 [address]Home) [place] [address] Joy Armstrong Personal/Family Self 1940 [address] (Home) [place] [address] Advance Directives For more information, please contact: [phone] Latest Code Status on File Code Status Date Activated Date Inactivated Comments Full Code 09/03/2015 13:11 09/07/2015 15:54 Reason for decision includes: Full code consistent with over all plan of care Who participated in the discussion? Patient Care Teams Structural Metal Worker Relationship Specialty Start Date End Date Manuel Isaacs MD PCP - General 04/02/[address] [place] [address] [phone]
--- OUTSIDE RECORDS SUMMARY | 2022-02-19 01:11 | XMS_ITS | Encounter Summary ---
:1940 Author Organization [facility] Address [address] [place] [address] Care Team Providers Name Role Phone Manuel Isaacs MD Primary Care Provider Encounter Details Date Type Department Care Team Description 01/01/2022 Lab Requisition [facility] Outr Resulting Lab, Pathology & Laboratory Provider [facility] [address] [place], [place] [phone] Social History Tobacco Use Types Packs/Day Years [...] this encounter Results CEA (01/01/2022 8:00 EDT) athologist Signature CEA 4.2 See Note 01/01/2022 [facility] ng/mL 19:35 EDT CENTER [facility] Comment: % Distribution of CEA (ng/mL): ??0.0 - 2.5 in 98.2% of Nonsmokers and 87.3% of Smokers ??2.6 - 5 in 1.8% of Nonsmokers and 8% of Smokers ??5.1 - 10.1 in 4.7% of Smokers NOTE: Serum CEA concentration should not be in terpeted as absolute evidence for the presence or absence of malignant disease. ?? Assayed on Siemens [employer]re [employer]aur XPT usi ng chemiluminescent technology. ??Values obtained by different assay methods cannot be used interchangeably. Specimen Anatomical Collection Method Collection Time Receive d Time (Source) Location / / Volume Laterality Blood VENOUS BLOOD / 01/01/2022 8:00 01/01/2022 Unknown EDT 18:20 EDT Provider Outr Resulting Lab CHEMISTRY & BLOOD GAS JULIA GALARZA Performing Organization Address City/State/ZIP Code Phon e Number [facility] [address] [place] [address] SERVICES documented in this encounter Visit Diagnoses Not on filedocumented in this encounter Care Teams Taco Maker Relationship Specialty Start Date End Date Manuel Isaacs MD PCP - General 04/02/[address] [place] [address] [phone] documented as of this encounter
--- OUTSIDE RECORDS SUMMARY | 2022-02-19 01:11 | XMS_ITS | Encounter Summary ---
:1940 Author Organization [facility] Address [address] [place] [address] Care Team Providers Name Role Phone Manuel Isaacs MD Primary Care Provider Encounter Details Date Type Department Care Team Description 12/04/2021 Lab Requisition [facility] Outr Resulting Lab, Pathology & Laboratory Provider [facility] [address] [place] [address] Social History Tobacco Use Types [...] Date/Time Associated Diagnosis Comme nts CEA Routine 12/04/2021 7:55 EDT Results for this procedure are i n the results section . documented in this encounter Results CEA (12/04/2021 7:55 EDT) athologist Signature CEA 3.1 See Note 12/04/2021 [facility] ng/mL 18:28 EDT CENTER [facility] Comment: % Distribution of CEA (ng/mL): ??0.0 - 2.5 in 98.2% of Nonsmokers and 87.3% of Smokers ??2.6 - 5 in 1.8% of Nonsmokers and 8% of Smokers ??5.1 - 10.1 in 4.7% of Smokers NOTE: Serum CEA concentration should not be in terpeted as absolute evidence for the presence or absence of malignant disease. ?? Assayed on [employer]aur XPT usi ng chemiluminescent technology. ??Values obtained by different assay methods cannot be used interchangeably. Specimen Anatomical Collection Method Collection Time Receive d Time (Source) Location / / Volume Laterality Blood VENOUS BLOOD / 12/04/2021 7:55 12/04/2021 Unknown EDT 17:28 EDT Provider Outr Resulting Lab CHEMISTRY & BLOOD GAS JULIA GALARZA Performing Organization Address City/State/ZIP Code Phon e Number [facility] [address] [place] [address] SERVICES documented in this encounter Visit Diagnoses Not on filedocumented in this encounter Care Teams Protective Services Case Worker Relationship Specialty Start Date End Date Manuel Isaacs MD PCP - General 04/02/[address] [place] [phone] documented as of this encounter
--- OUTSIDE RECORDS SUMMARY | 2022-02-19 01:11 | XMS_ITS | Encounter Summary ---
:1940 Author Organization [facility] Address [address] [place] [address] Care Team Providers Name Role Phone Manuel Isaacs MD Primary Care Provider Encounter Details Date Type Department Care Team Description 11/20/[address] [facility] Outr Resulting Lab, Pathology & Laboratory Provider [facility] [address] [place] [address] Social History Tobacco Use Types [...] this encounter Results CEA (11/20/2021 8:40 EDT) athologist Signature CEA 3.7 See Note 11/20/2021 [facility] ng/mL 20:32 EDT [facility]ENTER [facility] Comment: % Distribution of CEA (ng/mL): ??0.0 - 2.5 in 98.2% of Nonsmokers and 87.3% of Smokers ??2.6 - 5 in 1.8% of Nonsmokers and 8% of Smokers ??5.1 - 10.1 in 4.7% of Smokers NOTE: Serum CEA concentration should not be in terpeted as absolute evidence for the presence or absence of malignant disease. ?? Assayed on Siemens BookBubaur XPT usi ng chemiluminescent technology. ??Values obtained by different assay methods cannot be used interchangeably. Specimen Anatomical Collection Method Collection Time Receive d Time (Source) Location / / Volume Laterality Blood VENOUS BLOOD / 11/20/2021 8:40 11/20/2021 Unknown EDT 17:16 EDT Provider Outr Resulting Lab CHEMISTRY & BLOOD GAS JULIA GALARZA Performing Organization Address City/State/ZIP Code Phon e Number [facility] [address] [place] [address] SERVICES documented in this encounter Visit Diagnoses Not on filedocumented in this encounter Care Teams Counter Waitress/Waiter Relationship Specialty Start Date End Date Manuel Isaacs MD PCP - General 04/02/[address] [place] [phone] documented as of this encounter
--- OUTSIDE RECORDS SUMMARY | 2022-02-19 01:12 | XMS_ITS | Encounter Summary ---
:1940 Author Organization [facility] Address [address] [place] [address] Care Team Providers Name Role Phone Jodi Camp MD Primary Care Provider Reason for Visit Reason Comments Follow-up Perf Appendix Follow Up (Routine) - Closed Specialty Diagnoses / Procedures Referred By Contact Refer red To Contact Trauma Surgery Diagnoses Sepsis, due to unspecified organism Intra-abdominal infection Nina Power [facility] Ep5 Trauma/Roberto Mcdonough MD Care [address] [place] [phone] Phone: Fax: Referral ID Status Reason Start Date Expiration Date Visits V isits Requested Authorized [id number] Closed Specialty 09/07/2015 1 1 Services Required Encounter Details Date Type Department Care Team Description 10/07/2015 Office Visit [facility] Jeremy Caceres Intra -abdominal Acute Care Surgery - MD Shad infecti on (Primary Dx) [place] [address] Social History Tobacco Use Types Packs/Day Years Used Date Smoking Tobacco: Never Alcohol Use Standard Drinks/Week Comments Not Asked [...] Progress Notes Jeremy Caceres MD - 10/07/2015 0930 EDT Ms Armstrong presents with her in [...] for any surgical intervention at this time. Thehusband was very discontent, however. He indicates she has had a myriad of complaints. Her old doctor retired. She has a new doctor who she has not really seen. 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 [...] eases documented in this encounter Care Teams Marketing/Sales Person Relationship Specialty Start Date End Date Jodi Camp MD PCP - General 09/03/15 12/22/[address] [address] documented as of this encounter
--- OUTSIDE RECORDS SUMMARY | 2022-02-19 01:12 | XMS_ITS | Encounter Summary ---
:1940 Author Organization [facility] Address [address] [place] [address] Care Team Providers Name Role Phone Nayan Hilton Primary Care Provider Reason for Visit Reason Comments Ultrasound Encounter Details Date Type Department Care Team Description 06/20/2017 Initial consult [facility] Shantelle Ureña Flu id in endometrial cavity (Primary Dx); Women's Services - MD Claudine Adnexal mass [facility] [id number] [place], [place] [address]ili, [place] [address] (Wo rk) Social History Tobacco [...] organs documented in this encounter Care Teams Quality Supervisor Relationship Specialty Start Date End Date Nayan Hilton DO PCP - General 06/17/17 04/01/20 documented as of this encounter
--- OUTSIDE RECORDS SUMMARY | 2022-02-19 01:12 | XMS_ITS | Encounter Summary ---
:1940 Author Organization [facility] Address [address] [place] [address] Care Team Providers Name Role Phone Nayan Hilton Primary Care Provider Reason for Referral Laboratory Services (Routine) - New Request Specialty Diagnoses / Procedures Referred By Contact Refer red To Contact Diagnoses Colovesical fistula Bashir Kapadia MD Procedures BACTERIAL CULTURE, URINE [address] [phone] Referral ID Status Reason Start Date Expiration Date Visits V isits Requested Authorized [id number] New Request 11/14/2019 1 1 Reason for Visit Reason Comments New Patient Visit Consult (Urgent) - Authorization Not Required Specialty Diagnoses / Procedures Referred By Contact Refer dontae To Contact Urology Diagnoses Vesicocolic fistula Bashir Kapadia MD [address] [place] [address] [phone] Phone: Fax: Referral ID Status Reason Start Expiration Visits Visits Date Date Requested Authorized [id number] Authorization Not 1 1 Required Encounter Details Date Type Department Care Team Description 11/14/2019 Telemedicine [facility] Mehdi Kapadia MD Colovesical fistula Urology - Main [address] [place] (Primary Dx ) [address] [place], [place] [address] [place] [address] [place] [phone] (Wo rk) Social History Tobacco Use Types [...] with colon cancer. 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 She initially was slated to undergo surgery thisweek at [facility] but ultimately the decision was made to transfer care to [facility]. She underwent an office cystoscopy with Dr. [...] prepared with voice recognition software. Please excuse retail solar advisor errors. Patient consented to a phone visit. [...] 11/14/2019 documented in this encounter Care Teams Billing Auditor Relationship Specialty Start Date End Date Nayan Hiltno DO PCP - General 06/17/17 04/01/20 documented as of this encounter
--- OUTSIDE RECORDS SUMMARY | 2022-02-19 01:12 | XMS_ITS | Encounter Summary ---
:1940 Author Organization [facility] Address [address] [place] [address] Care Team Providers Name Role Phone Dacia Hendrix MD Primary Care Provider [phone] Encounter Details Date Type Department Care Team Description 12/23/2015 Results Only [facility] PRISM MD Dacia [phone] [address] [place], [place] [phone] (Wo rk) Social History Tobacco Use Types [...] on filedocumented in this encounter Care Teams Bridge Welder Relationship Specialty Start Date End Date Dacia Hendrix MD PCP - General 12/23/15 06/16/17 [address] [place] [address] documented as of this encounter
--- OUTSIDE RECORDS SUMMARY | 2022-02-19 01:12 | XMS_ITS | Encounter Summary ---
:1940 Author Organization [facility] Address [address] [place] [address] Care Team Providers Name Role Phone Manuel Isaacs MD Primary Care Provider Encounter Details Date Type Department Care Team Description 06/12/2021 Lab Requisition [facility] Outr Resulting Lab, Pathology & Laboratory Provider [facility] [address] [place], [place] [id number] Social History Tobacco Use Types Packs/Day Years [...] this encounter Results CEA (06/12/2021 8:05 EST) athologist Signature CEA 3.8 See Note 06/12/2021 [facility] ng/mL 18:20 EST CENTER LABORATORY SERVICES Comment: % Distribution of CEA (ng/mL): ??0.0 - 2.5 in 98.2% of Nonsmokers and 87.3% of Smokers ??2.6 - 5 in 1.8% of Nonsmokers and 8% of Smokers ??5.1 - 10.1 in 4.7% of Smokers NOTE: Serum CEA concentration should not be in terpeted as absolute evidence for the presence or absence of malignant disease. ?? Assayed on Siemens [employer] XPT usi ng chemiluminescent technology. ??Values obtained by different assay methods cannot be used interchangeably. Specimen Anatomical Collection Method Collection Time Receive d Time (Source) Location / / Volume Laterality Blood VENOUS BLOOD / 06/12/2021 8:05 06/12/2021 Unknown EST 17:23 EST Provider Outr Resulting Lab CHEMISTRY & BLOOD GAS JULIA GALARZA Performing Organization Address City/State/ZIP Code Phon e Number [facility] [address] [place] [address] SERVICES documented in this encounter Visit Diagnoses Not on filedocumented in this encounter Care Teams User Experience Team Lead Relationship Specialty Start Date End Date Manuel Isaacs MD PCP - General 04/02/[address] [place] [phone] documented as of this encounter
--- OUTSIDE RECORDS SUMMARY | 2022-02-19 01:12 | XMS_ITS | Encounter Summary ---
:1940 Author Organization [facility] [place] [facility] Address [address] [place] [address] Care Team Providers Name Role Phone YobaniNayan Pedro HARRISON Primary Care Provider Manuel Isaacs MD Primary Care Provider Encounter Details Date Type Department Care Team Description 10/24/2019 Lab Requisition [facility] Jamie Jean-Baptiste E ncounter for other Pathology & general examination Laboratory Medicine [address] [place] [address] [address] [place] [address] [place], [place] [phone] Social History Tobacco Use Types Packs/Day Years [...] encounter Results SURGICAL PATHOLOGY (10/24/2019 9:50 EDT) Component Value Ref Test Analysis Performed Pathologis t Range Method Time At Signature Ancillary RESULTS OF IMMUNOHISTOCHEMIC AL STAINING: Retained expression of MLH1, PMS2, MSH2 and MSH6 10/29/2019 [facility] Addendum Studies 11:52 EDT CENTER electronic ally Addendum INTERPRETATION: These result s are indicative of normal DNA mismatch repair function within the tumor. This patient most likely does not have Oneil syndrome. However, it is important to note that 3-10% o LABORATORY signed by Amadeo f Oneil syndrome patients ma y reveal retained expression of mismatch repair proteins due to mutation in other genes. Hence these findings should be interpreted in the context of family and clinical hist SERVICES Milton Cassidy ory. If results do not match clinicopathologic findings, molecular testing (specifically microsatellite instability by PCR) can be ordered upon obtaining preauthorization or an advanced beneficiary notice. on 10/29/2019 at 1152 ANTIBODY (CLONE) (BLOCK): RESULT MLH1 (M1, [place]) (block A-3): Retained expression in tumor PMS2 (A16-4, [place]) (block A-3): Retained expression in tu mor MSH2 ([id number], [place]) (block A-3): Retained expression i n tumor MSH6 (SP93, [place]) (block A-3): Retained expression in yaya or Internal controls: Adequate NOTE: One or more [...] performance characteristics have been determined by [facility] and/or by the referring laboratory. The positive and negative controls worked appropriately. This laboratory is certified under the Clinical Labor atory Improvement Amendments of 1988 (CLIA-88) as qualified to perform high complexity clinical laboratory testing. Final A. COLON, SIGMOID,MASS, BIOPSY: 2019 [facility] Electronically Diagnosis - Invasive adenocarcinoma, m oderately differentiated, colorectal primary 11:52 T CENTER signed by - See comment. LABORATORY Cecilia Reyez ch, TRUNG HINKLE on 10/25 B. COLON, SIGMOID, POLYP, BIOPSY: at 1644 - Hyperplastic polyp Attestation There was significant 10/29/2019 [facility] M EDICAL Electronically resident/fellow 11:52 [facility] CENTER sign ed by involvement in the LABORATORY Cecilia Newby, diagnostic evaluation SERVICES on 10/26/2019 of this case. By the at 1644 signature below, the attending physician certifies that they have personally conducted a gross and/or microscopic examination of the described specimens and rendered or confirmed the above diagnosis. Diagnosis Immunoperoxidase stains were performed on this case to further characterize the lesion. 10/29/2019 [facility] Comment ANTIBODY(CLONE)(BLOCK):RESULT 11:52 [facility] CK7 (RN7, [place]) (A3): Negative LABORATORY CK20 (Ks20.8, [place]) (A3): Positive SERVICES CDX-2 (EP25, [place]) (A3): Positive NOTE: One [...] characteristics have been de termined by [facility] and/or by the referring laboratory. The [...] be issued in a separate report. 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 Received in formalin labe lled with proper patient identification (initials H, I) and A. Sigmoid mass Bxs is an aggregate of firm pale pate focally brown tissue (1.4 x 1.3 x 0.3 cm). Entirely submitted in A1-A4. 10/29/2019 [facility] Description 11:52 EDT CENTER B. Received in formalin labe lled with proper patient identification (initials H, I) and B. Sigmoid polyp are three firm pale pate focally pate tissues (0.3 x 0.2 x 0.1 cm to 0.2 x 0.2 x 0.2 cm). Entirely submitted in B1. LABORATORY SERVICES Dharmesh Yousif 10/25/2019 8:37 Resident/Reinier Randolph MD 10/29/2019 [facility] ow: 11:52 EDT CENTER LABORATORY SERVICES Scanned 10/29/2019 [facility] Images 11:52 T CENTER LABORATORY SERVICES Specimen Anatomical Collection Method Collection Time Receive d Time (Source) Location / / Volume Laterality Tissue ENTIRE SIGMOID 10/24/2019 9:50 10/25/2019 7:03 COLON / Unknown EDT EDT Tissue specimen 10/24/2019 9:50 0 7:04 (specimen) EDT EDT (Colon, Polyp) Jamie Jean-Baptiste MD PATHOLOGY ORDERABLES Performing Organization Address City/State/ZIP Code Phon e Number [facility] CENTER LABORATORY [address] [place] [address] SERVICES documented in this encounter Visit Diagnoses Diagnosis Encounter for other general examination documented in this encounter Care Teams Oncology Radiation Physician Relationship Specialty Start Date End Date Nayan Hilton DO PCP - General 06/17/17 04/01/20 Manuel Isaacs MD PCP - General 04/02/[address] [place] [phone] documented as of this encounter
--- OUTSIDE RECORDS SUMMARY | 2022-02-19 01:12 | XMS_ITS | Encounter Summary ---
:1940 Author Organization [facility] Address [address] [place] [address] Care Team Providers Name Role Phone Manuel Isaacs MD Primary Care Provider Encounter Details Date Type Department Care Team Description 05/26/2021 Lab Requisition [facility] Outr Resulting Lab, Pathology & Laboratory Provider [facility] [address] [place] [address] Social History Tobacco Use Types [...] this encounter Results CEA (05/26/2021 10:10 EST) athologist Signature CEA 3.1 See Note 05/26/2021 [facility] ng/mL 17:25 EST CENTER LABORATORY SERVICES Comment: % Distribution of CEA (ng/mL): ??0.0 - 2.5 in 98.2% of Nonsmokers and 87.3% of Smokers ??2.6 - 5 in 1.8% of Nonsmokers and 8% of Smokers ??5.1 - 10.1 in 4.7% of Smokers NOTE: Serum CEA concentration should not be in terpeted as absolute evidence for the presence or absence of malignant disease. ?? Assayed on Siemens [employer] XPT usi ng chemiluminescent technology. ??Values obtained by different assay methods cannot be used interchangeably. Specimen Anatomical Collection Method Collection Time Receive d Time (Source) Location / / Volume Laterality Blood VENOUS BLOOD / 05/26/2021 10:10 2 Unknown EST 15:54 EST Provider Outr Resulting Lab CHEMISTRY & BLOOD GAS JULIA GALARZA Performing Organization Address City/State/ZIP Code Phon e Number [facility] [address] [place] [address] SERVICES documented in this encounter Visit Diagnoses Not on filedocumented in this encounter Care Teams Mother Helper Relationship Specialty Start Date End Date Manuel Isaacs MD PCP - General 04/02/[address] [place] [phone] documented as of this encounter
--- OUTSIDE RECORDS SUMMARY | 2022-02-19 01:12 | XMS_ITS | Encounter Summary ---
:1940 Author Organization [facility] Address [address] [place] [address] Care Team Providers Name Role Phone YobaniNayan Pedro HARRISON Primary Care Provider Manuel Isaacs MD Primary Care Provider Encounter Details Date Type Department Care Team Description 12/27/2019 Lab Requisition [facility] Jamie Jean-Baptiste E ncounter for other Pathology & general examination Laboratory Medicine [address] [place] [address] [address] [place] [address] [place], [place] [address] Social History Tobacco Use Types Packs/Day Years [...] encounter Results SURGICAL PATHOLOGY (12/26/2019 15:05 EDT) Component Value Ref Test Analysis Performed At [facility] gist Range Method Time Signature Final A. ILEOSTOMY TAKEDOWN: 01/01/[address] [facility] ME DICAL Diagnosis - Enterocutaneous junction consistent with ostomy. 9:16 [facility] CENTER - Extensive suture granulomas and reactive changes. LABORATORY SERVICES Attestation There was 01/01/[address] [facility] MEDICAL Elect ronically significant 9:16 [facility]ENTER signed b y resident/fellow LABORATORY Renee Davis, involvement in the SERVICES M D on 01/01/2020 diagnostic at 0916 evaluation of this case. By the signature below, the attending physician certifies that they have personally conducted a gross and/or microscopic examination of the described specimens and rendered or confirmed the above diagnosis. Clinical None listed 01/01/[address] [facility] MEDICAL History 9:16 [facility] LABORATORY SERVICES Gross A. 01/01/[address] [facility] MEDICAL Description Received in formalin denise d with proper patient identification (initials H, I) and partial small-bowel resection is an unoriented segment of small bowel (4.2 x 2.8 x 1.9 cm) that is the site of an o 9:16 [facility] stomy takedown. There is 1.8 cm segment [...] bowel remained constant throughout averaging 1.0 cm. Instructional Services Librarian sections are submitted as follows: BLOCK MORALES A1- section to include skin and small bowel, longitudinal A2-A3- serial section, bisected A4-A5- serial section, bisected Jarrett Paredes MD 12/28/2019 16:10 Resident/Jarrett Augustine, 01/01/[address] [facility] HOMERO CONNORS w: 9:16 [facility] LABORATORY SERVICES Performing Lab [facility] 01/01/[address] [facility] M EDICAL 9:16 [facility] LABORATORY SERVICES Scanned Images 01/01/2020 [facility] 9:16 EDT CENTER LABORATORY SERVICES Specimen Anatomical Collection Method Collection Time Receive d Time (Source) Location / / Volume Laterality Tissue ENTIRE SIGMOID 12/26/2019 15:05 0 8:14 COLON / Unknown EDT EDT Jamie Jean-Baptiste MD PATHOLOGY ORDERABLES Performing Organization Address City/State/ZIP Code Phon e Number [facility] [address] [place] [address] SERVICES documented in this encounter Visit Diagnoses Diagnosis Encounter for other general examination documented in this encounter Care Teams Foreign Student Adviser Teacher Relationship Specialty Start Date End Date Nayan Hilton DO PCP - General 06/17/17 04/01/20 Manuel Isaacs MD PCP - General 04/02/[address] [place] [phone] documented as of this encounter
--- OUTSIDE RECORDS SUMMARY | 2022-02-19 01:12 | XMS_ITS | Encounter Summary ---
:1940 Author Organization [facility] Address [address] [place] [address] Care Team Providers Name Role Phone Jodi Camp MD Primary Care Provider Reason for Referral Cardiology (Routine) - Closed Specialty Diagnoses / Procedures Referred By Contact Refer red To Contact Diagnoses Right ventricular dilation Contreras Preston MD Procedures ECHOCARDIOGRAM [address] [place] [address] Referral ID Status Reason Start Date Expiration Date Visits Requ ested Visits Authorized [id number] Closed 10/13/2015 1 1 Encounter Details Date Type Department Care Team Description 10/13/2015 Orders Only [facility] Juhi Moncada, Right v entricular Cardiology - Amber KOENIG dilation (Primary Dx) [address] [place], [place] [address] Social History Tobacco Use [...] See tele encounter, 10/19 for update. Juhi Moncada RN - 10/13/2015 1215 EDT Per cardiology [...] this encounter Results ECHOCARDIOGRAM (10/22/2015 15:58 EDT) Anatomical Region Laterality Modality Other Specimen (Source) Anatomical Collection Method Collection Time Re ceived Time Location / / Volume Laterality 10/22/2015 15:58 EDT Narrative 10/22/2015 16:47 EDT *Interpreting Group:* *[facility] Cardiology* [address] [place] [address] Date of study: 10/22/2015 Transthoracic Echocardiography M-mode, [...] Preston ORDERING ? Contreras Preston REFERRING ?Contreras Preston r YARD SWITCH OPERATOR ??Sophie Acharya PERFORMING ?? [facility], Op YARD SWITCH OPERATOR ??Junior Renee *PROCEDURE DATA* Procedure information: ??This study was interpreted by [facility] Cardiology. Pertinent imag es [...] 16:47 Procedure Note Joe Zambrano MD - 10/22/2015Form atting of this note might be different from the original. *Interpreting Group:* *[facility] Cardiology* [address] [place] [address] Date of study: 10/22/2015 Transthoracic Echocardiography M-mode, [...] ORDERING Contreras Preston REFERRING Contreras Preston r YARD SWITCH OPERATOR Sophie Acharya PERFORMING [facility], YARD SWITCH OPERATOR Junior Renee *PROCEDURE DATA* Procedure information: This study was in terpreted by [facility] Cardiology. Pertinent imag es [...] signed by Joe Zambrano MD 10/22/2015 16:47 Contreras Preston MD CARDIAC ECHO ORDERABLES documented in this encounter Visit Diagnoses Diagnosis Right ventricular dilation - Primary Cardiomegaly documented in this encounter Care Teams Tracer Lathe Set Up Operator Relationship Specialty Start Date End Date Jodi Camp MD PCP - General 09/03/15 12/22/[address] [address] documented as of this encounter
--- OUTSIDE RECORDS SUMMARY | 2022-02-19 01:12 | XMS_ITS | Encounter Summary ---
:1940 Author Organization [facility] Address [address] [place] [address] Care Team Providers Name Role Phone Nayan Hilton DO Primary Care Provider Reason for Visit (Routine) - Receiving Office to Obtain Authorization Specialty Diagnoses / Procedures Referred By Contact Refer red To Contact Procedures Unknown, Provider, MR OUTSIDE IMAGES MSK Phone: Referral ID Status Reason Start Expiration Visits Visits Date Date Requested Authorized [id number] Receiving Office 11/07/2019 1 1 to Obtain Authorization Encounter Details Date Type Department Care Team Description 10/29/2019 Hospital Encounter [facility] Radiology - Main [place] [address] [place] [address] Social History Tobacco Use Types Packs/Day Years [...] OUTSIDE IMAGES MSK (11/07/2019 12:12 EDT) Specimen (Source) Anatomical Location Collection Method / Collectio n Time Received Time / Laterality Volume Narrative [facility] - 11/07/2019 12:12 EDT This is a non-reportable exam. Provider Unknown MD BESS OTHER IMAGING ORDERABLES Performing Organization Address City/State/ZIP Code Phon e Number [facility] documented in this encounter Visit Diagnoses Not on filedocumented in this encounter Care Teams Business Intelligence Consultant Relationship Specialty Start Date End Date Nayan Hilton DO PCP - General 06/17/17 04/01/20 documented as of this encounter
--- OUTSIDE RECORDS SUMMARY | 2022-02-19 01:12 | XMS_ITS | Encounter Summary ---
:1940 Author Organization [facility] Address [address] [place] [address] Care Team Providers Name Role Phone YobaniNayan Pedro HARRISON Primary Care Provider Manuel Isaacs MD Primary Care Provider Encounter Details Date Type Department Care Team Description 10/19/2019 Lab Requisition [facility] Outr Resulting Lab, Pathology & Laboratory Provider [facility] [address], [place] [id number] Social History Tobacco Use Types Packs/Day Years [...] - [facility] COVID TEST (10/19/2019 11:54 EDT) [facility] Time Signature COVID-19 NEGATIVE Negative 10/21/2019 [facility] rt-PCR Result 18:27 EDT [facility] Comment: 2019-novel Coronavirus (2019-nCoV) not d etected by the qRT-PCR assay. Consider testing for other respiratory viruses or re-collecting for 2019-nCoV testing. Note: Optimum timing for peak viral levels du ring infections caused by 2019-nCoV have not been determined. Collection of multiple specimens from the same patient may be necessary to detect the virus. Limitations Positive results are indicative of activ e infection with SARS-CoV-2 but do not rule out bacterial infection or co-infection with other viruses. The agent detected may not be the definite cause of diseas e. In addition, detection of viral RNA m ay not indicate the presence of infectious virus or that SARS-CoV-2 is the causative agent for clinical symptoms. Negative results do not preclude SARS-Co V-2 infection and should not be used as the sole basis for patient management decisions. Negative results must be combined with clinical observations, patient his tory, and epidemiological information. F alse negative results may also occur if amplification inhibitors are present in the specimen or if inadequate numbers of organisms are present in the specimen. Op timum specimen types and timing for peak viral levels during infections caused by SARS-CoV-2 have not been fully determined. Collection of multiple specimens (types and time points) from the same patient may be necessary to detect the virus. The test was validated for use with uppe r respiratory specimens obtained via nasopharyngeal or oropharyngeal swabs in VTM, UTM, M4, M5, M6, saline, and MTM media. The performance of this test has not be en established for other specimens. Spec imens collected using other FDA recommended Specimen Collection Materials listed in the FDA COVID-19 [employer] communication (June 28, 2019) are pr ocessed with the caveat that they were n ot all validated for use with this test and the result must be interpreted in this context. Furthermore, a false negative results may occur if a specimen is improperly collected, transported or handled. If the virus mutates in the RT-PCR targe t region, SARS-CoV-2 may not be detected or may be detected less predictably. Inhibitors or other types of interferenc e may produce a false negative result. An interference study evaluating the effect of common cold medications was not performed. This test is not FDA-cleared but its per formance characteristics were established by our CLIA-certified, CAP-accredited, high complexity laboratory in accordance with CLIA regulations, College of [employer] an Pathologists (CAP) guidelines (Jun), and FDA guidance (Jun 02, 2019). This test is only for use under the Food and Drug Administration's Emergency Use Authorization. Specimen Anatomical Location Collection Method Collection Time Received Time (Source) / Laterality / Volume Swab ENTIRE NASOPHARYNX 10/19/2019 11:54 10/18 / Unknown EDT 21:12 EDT Provider Outr Resulting Lab MICROBIOLOGY - GENERAL ORD ERABLES Performing Organization Address City/State/ZIP Code Phon e Number [facility] [place] [place] COVID-19 TESTING (10/19/2019 11:54 EDT) Analysis Performed At Patho logist Time Signature COVID-19 NEGATIVE Negative 10/21/2019 [facility] rt-PCR Result 20:49 EDT [facility] Comment: 2019-novel Coronavirus (2019-nCoV) not d etected by the qRT-PCR assay. Consider testing for other respiratory viruses or re-collecting for 2019-nCoV testing. Note: Optimum timing for peak viral levels du ring infections caused by 2019-nCoV have not been determined. Collection of multiple specimens from the same patient may be necessary to detect the virus. Limitations Positive results are indicative of activ e infection with SARS-CoV-2 but do not rule out bacterial infection or co-infection with other viruses. The agent detected may not be the definite cause of diseas e. In addition, detection of viral RNA m ay not indicate the presence of infectious virus or that SARS-CoV-2 is the causative agent for clinical symptoms. Negative results do not preclude SARS-Co V-2 infection and should not be used as the sole basis for patient management decisions. Negative results must be combined with clinical observations, patient his tory, and epidemiological information. F alse negative results may also occur if amplification inhibitors are present in the specimen or if inadequate numbers of organisms are present in the specimen. Op timum specimen types and timing for peak viral levels during infections caused by SARS-CoV-2 have not been fully determined. Collection of multiple specimens (types and time points) from the same patient may be necessary to detect the virus. The test was validated for use with uppe r respiratory specimens obtained via nasopharyngeal or oropharyngeal swabs in VTM, UTM, M4, M5, M6, saline, and MTM media. The performance of this test has not be en established for other specimens. Spec imens collected using other FDA recommended Specimen Collection Materials listed in the FDA COVID-19 [employer] communication (June 28, 2019) are pr ocessed with the caveat that they were n ot all validated for use with this test and the result must be interpreted in this context. Furthermore, a false negative results may occur if a specimen is improperly collected, transported or handled. If the virus mutates in the RT-PCR targe t region, SARS-CoV-2 may not be detected or may be detected less predictably. Inhibitors or other types of interferenc e may produce a false negative result. An interference study evaluating the effect of common cold medications was not performed. This test is not FDA-cleared but its per formance characteristics were established by our CLIA-certified, CAP-accredited, high complexity laboratory in accordance with CLIA regulations, College of [employer] an Pathologists (CAP) guidelines (Jun), and FDA guidance (Jun 02, 2019). This test is only for use under the Food and Drug Administration's Emergency Use Authorization. Performing Lab [facility] [place] 10/21/2019 20:4 9 EDT [facility] SERVICES Specimen Anatomical Collection Method Collection Time Receive d Time (Source) Location / / Volume Laterality Swab 10/19/2019 11:54 10/19/2019 EDT 21:12 EDT Provider Outr Resulting Lab MICROBIOLOGY - GENERAL ORD ERABLES Performing Organization Address City/State/ZIP Code Phon e Number [facility] [address] [place] [address] SERVICES [facility] [place] documented in this encounter Visit Diagnoses Not on filedocumented in this encounter Care Teams Cleaner Operator Relationship Specialty Start Date End Date Nayan Hilton, PCP - General 06/17/17 04/01/20 Manuel Isaacs MD PCP - General 04/02/[address] [place] [phone] documented as of this encounter
--- OUTSIDE RECORDS SUMMARY | 2022-02-19 01:12 | XMS_ITS | Encounter Summary ---
:1940 Author Organization [facility] Address [address] [place] [address] Care Team Providers Name Role Phone Manuel Isaacs MD Primary Care Provider Encounter Details Date Type Department Care Team Description 12/24/2020 Lab Requisition [facility] Dixon Urena Enc ounter for other Pathology & MD general examination Laboratory Medicine - [address] [place] [address] [address] [facility] [address] [place], [place] [id number] Social History Tobacco Use Types Packs/Day Years [...] Priority Date/Time Associated Diagnosis Comme nts NON NEUROLOGY TECH/FNA Today 12/24/2020 10:45 Results for this CYTOLOGY EDT procedure are i n the results section. documented in this encounter Results NON NEUROLOGY TECH/FNA CYTOLOGY (12/24/2020 10:45 EDT) Component Value Ref Test Analysis Performed At [facility] gist Range Method Time Signature Note to The following 12/30/2020 [facility] MEDICAL Patient pathology results 14:10 [facility] have been LABORATORY interpreted by SERVICES your pathologist and may be available to you before your health provider has had the opportunity to review them. Please allow time for your provider to receive these results and explore management options, if applicable. Final A. RECTUS ABDOMINUS MUSCLE, RIGHT, ULTRASOUND-GUIDED FINE-NEEDLE ASPIRATION: 12/30/2020 [facility] Diagnosis - Adenocarcinoma. See comment. 14:10 [facility] LABORATORY SERVICES Diagnosis The aspirate smears are cell ular and show crowded sheets of malignant glandular cells with nuclear crowding and nuclear membrane irregularity. Although the SATB2 stain would be expected to be positive i 12/30/2020 [facility] Comment n colo-rectal carcinomas, a small percent of cases have been reported to be negative. Clinical and radiographic correlation is hence essential. Dr. David Roth has reviewed this case in consultation and concurs with the diagnosis. 14:10 [facility] Immunoperoxidase stains were performed on this case [...] have been de termined by [facility] and/or by the referring laboratory. The [...] have personally conducted a gross and/or microscopic 0 12/30/2020 [facility] MEDICAL Electronically examination of the described specimens and rendered or confirmed the above diagnosis. 14:10 EDT CENTER signed by FLOYD Luciano MD SERVICES on 12/31/19 21 at 1410 Rapid RECTUS ABDOMINUS MUSCLE, RIGHT, ULTRASOU ND GUIDED FINE NEEDLE ASPIRATION: 12/30/2020 [facility] MEDICAL Diagnosis Evaluation episode #1: Pass #1: Positive, consistent with adenocarcinoma. Additional passes recommended. 14:10 [facility] Passes 2 and 3 obtained. LABOR ATORY Pass #2: Air dried and EtOH fixed smears. SERVICES Pass #3: Scant, air dried smear only. CytoLyt: Needle rinses; ThinPrep. Finding: discussed on site with Dr. Kyle Jain 12/24/2020 10:55 AM Rapid evaluation of this [facility] e Needle Aspiration sample was performed by Pathologists at [facility], [address] [place] [address]. Clinical H/O small bowel 12/30/2020 [facility] MEDICAL History carcinoma; 2.6cm 14:10 EDT CENTER FDG avid mass LABORATORY right rectus SERVICES abdominis muscle 3 cm below level of umbilicus Gross A. 12/30/2020 [facility] MEDICAL Description 2 fixed prepared slides, 3 D iff Quik prepared slides, and 1 tube of CytoLyt were received and processed by selective cellular enhancement technique. 14:10 [facility] LABORATORY SERVICES Performing Lab [facility] 12/30/2020 [facility] M EDICAL 14:10 [facility] LABORATORY SERVICES Scanned Images 12/30/2020 [facility] MEDICAL 14:10 [facility] LABORATORY SERVICES Specimen Anatomical Collection Method Collection Time Receive d Time (Source) Location / / Volume Laterality ZZUNK SOFT TISSUE / 12/24/2020 10:45 12/25/2020 6:44 Unknown EDT EDT [place] Urena MD PATHOLOGY ORDERABLES Performing Organization Address City/State/ZIP Code Phon e Number [facility] [address] [place] [address] SERVICES documented in this encounter Visit Diagnoses Diagnosis Encounter for other general examination documented in this encounter Care Teams Market Sales Manager Relationship Specialty Start Date End Date Manuel Isaacs MD PCP - General 04/02/[address] [place] [phone] documented as of this encounter
--- OUTSIDE RECORDS SUMMARY | 2022-02-19 01:12 | XMS_ITS | Encounter Summary ---
:1940 Author Organization [facility] Address [address] [place] [address] Care Team Providers Name Role Phone Nayan Hilton DO Primary Care Provider Reason for Visit (Routine) - Receiving Office to Obtain Authorization Specialty Diagnoses / Procedures Referred By Contact Refer red To Contact Procedures Unknown, Provider, CT OUTSIDE IMAGES BODY Phone: Referral ID Status Reason Start Expiration Visits Visits Date Date Requested Authorized [id number] Receiving Office 11/07/2019 1 1 to Obtain Authorization Encounter Details Date Type Department Care Team Description 10/30/2019 Hospital Encounter [facility] Radiology - Main [place] [address] [place] [address] Social History Tobacco Use Types Packs/Day Years [...] OUTSIDE IMAGES BODY (11/07/2019 12:20 EDT) Specimen (Source) Anatomical Location Collection Method / Collectio n Time Received Time / Laterality Volume Narrative [facility] - 11/07/2019 12:20 EDT This is a non-reportable exam. Provider Unknown MD BESS OTHER IMAGING ORDERABLES Performing Organization Address City/State/ZIP Code Phon e Number [facility] documented in this encounter Visit Diagnoses Not on filedocumented in this encounter Care Teams Acid Pumper Relationship Specialty Start Date End Date Nayan Hilton DO PCP - General 06/17/17 04/01/20 documented as of this encounter
--- OUTSIDE RECORDS SUMMARY | 2022-02-19 01:12 | XMS_ITS | Encounter Summary ---
:1940 Author Organization [facility] Address [address] [place] [address] Care Team Providers Name Role Phone Dacia Hendrix MD Primary Care Provider [phone] Encounter Details Date Type Department Care Team Description 12/23/2015 Hospital Encounter [facility] - Di richard, [facility] MD Dacia [address] [facility] [address] [place] [address] [place] [address] (Wo rk) Social History Tobacco Use Types [...] on filedocumented in this encounter Care Teams Tuber Helper Relationship Specialty Start Date End Date Dacia Hendrix MD PCP - General 12/23/15 06/16/17 [address] [place] [address] documented as of this encounter
--- OUTSIDE RECORDS SUMMARY | 2022-02-19 01:12 | XMS_ITS | Encounter Summary ---
:[address] [facility] Address [address] [place] [address] Care Team Providers Name Role Phone Jodi Camp MD Primary Care Provider Encounter Details Date Type Department Care Team Description 10/22/2015 Hospital Encounter [facility] [place] MD [facility] [address] [facility] [address] [place] [phone] Social History Tobacco Use Types Packs/Day Years [...] mg Take 1 Tab by mouth 0 06/0 08/2015 tablet daily. levothyroxine (SYNTHROID) Take 112 [...] Code Departure Means Destination Home or Self Retirement documented in this encounter Plan of Treatment Not on filedocumented as of this encounter Visit Diagnoses Not on filedocumented in this encounter Care Teams Licensed Master Social Worker Relationship Specialty Start Date End Date Jodi Camp MD PCP - General 09/03/15 12/22/[address] [address] documented as of this encounter
--- OUTSIDE RECORDS SUMMARY | 2022-02-19 01:12 | XMS_ITS | Encounter Summary ---
:1940 Author Organization [facility] Address [address] [place] [address] Care Team Providers Name Role Phone YobaniNayan Pedro HARRISON Primary Care Provider Manuel Isaacs MD Primary Care Provider Encounter Details Date Type Department Care Team Description 10/24/2019 Lab Requisition [facility] Outr Resulting Lab, Pathology & Laboratory Provider [facility] [address] [place], [place] [id number] Social History Tobacco Use Types Packs/Day Years [...] encounter Results CA 125 (10/24/2019 10:54 EDT) P athologist Signature CA 125 17 <30 U/mL 10/25/2019 [facility] 12:45 EDT [facility] SERVICES Comment: NOTE: Serum CA 125 concentration should not be interpreted as absolute evidence for the presence or absence of malignant disease. Assayed on [employer] XPT usi ng chemiluminescent technology. ??Values obtained by using different assay methods cannot be used interchangeably. Specimen Anatomical Collection Method Collection Time Receive d Time (Source) Location / / Volume Laterality Blood VENOUS BLOOD / 10/24/2019 10:54 0 Unknown EDT 22:22 EDT Provider Outr Resulting Lab CHEMISTRY & BLOOD GAS JULIA GALARZA Performing Organization Address City/State/ZIP Code Phon e Number [facility] [address] [place] [address] SERVICES documented in this encounter Visit Diagnoses Not on filedocumented in this encounter Care Teams Scalemaker Relationship Specialty Start Date End Date Nayan Hilton DO PCP - General 06/17/17 04/01/20 Manuel Isaacs MD PCP - General 04/02/[address] [place] [phone] documented as of this encounter
--- OUTSIDE RECORDS SUMMARY | 2022-02-19 01:12 | XMS_ITS | Encounter Summary ---
:1940 Author Organization [facility] Address [address] [place] [address] Care Team Providers Name Role Phone Nayan Hilton DO Primary Care Provider Reason for Visit (Routine) - Receiving Office to Obtain Authorization Specialty Diagnoses / Procedures Referred By Contact Refer red To Contact Procedures Unknown, Provider, CT OUTSIDE IMAGES BODY Phone: Referral ID Status Reason Start Expiration Visits Visits Date Date Requested Authorized [id number] Receiving Office 11/07/2019 1 1 to Obtain Authorization Encounter Details Date Type Department Care Team Description 10/03/2019 Hospital Encounter [facility] Radiology - Main [place] [address] [place] [address] Social History Tobacco Use Types Packs/Day Years [...] OUTSIDE IMAGES BODY (11/07/2019 12:12 EDT) Specimen (Source) Anatomical Location Collection Method / Collectio n Time Received Time / Laterality Volume Narrative VIMAL - 11/07/2019 12:12 EDT This is a non-reportable exam. Provider Unknown MD BESS OTHER IMAGING ORDERABLES Performing Organization Address City/State/ZIP Code Phon e Number [facility] documented in this encounter Visit Diagnoses Not on filedocumented in this encounter Care Teams Doctor Naturopathic Relationship Specialty Start Date End Date Nayan Hilton DO PCP - General 06/17/17 04/01/20 documented as of this encounter
--- OUTSIDE RECORDS SUMMARY | 2022-02-19 01:12 | XMS_ITS | Encounter Summary ---
:1940 Author Organization [facility] Address [address] [place] [address] Care Team Providers Name Role Phone Manuel Isaacs MD Primary Care Provider Encounter Details Date Type Department Care Team Description 04/02/2020 Results Only Imaging [facility] - Alexy Cherry, [facility] Radiology Resul ts [address] [facility] [address] [place] [address] [place], [place] [id number] Social History Tobacco Use Types Packs/Day Years [...] CT EYE TO THIGH (04/02/2020 9:39 EST) Anatomical Region Laterality Modality Body Positron Emission To mography (PET) Specimen (Source) Anatomical Collection Method Collection Time Re ceived Time Location / / Volume Laterality 04/02/2020 9:35 EST Narrative 04/02/2020 9:39 EST ? EXAM: PET/CT SCAN/PET/CT SKULL BASE TO WA EX. D/ (0755) ? CLINICAL INFORMATION: ? [...] IV injection of 16.2 mCi of ? [id number], PET imagi ng was performed from the [...] evidence o f osseous metastatic disease. ? Veneer Drier measurements as fo llows: ? * ??Background [...] CC: ? Transcribed Date/Time: 04/02/2020 (0939) ? Local Sales Associate: ? Printed Date/Time: 04/02/2020 () ? PAGE 3 ? Juliette d Report ? Procedure Note Bashir Tran MD - 04/02/2020Fo rmatting of this note might be different from the original. EXAM: PET/CT SCAN/PET/CT SKULL BASE TO WA EX. D/ (0755) CLINICAL INFORMATION: C18.9 COLON CANCER STAGING PET/CT SKULL BASE TO MID-THIGH Signs and Symptoms/Comments: C18.9 COLO N CANCER, STAGING. Per patient, history of colon surgery in . Comparison: Outside CT chest abdomen pe lvis on 01/23/2020 and 10/30/[address] ([facility]) . Technique: 90 minutes following the IV injection of 16.2 mCi of [id number], PET imaging was performed from the skull [...] PET evidence of osse ous metastatic disease. Veneer Drier measurements as follows: * Background liver uptake: [...] Bashir Tran MD CC: Transcribed Date/Time: 04/02/2020 (938 ) Local Sales Associate: Printed Date/Time: 04/02/2020 (938) PAGE 3 Signed Report Tracee Cherry MD IMG NM ORDERABLES documented in this encounter Visit Diagnoses Not on filedocumented in this encounter Care Teams Manager Shipping Relationship Specialty Start Date End Date Manuel Isaacs MD PCP - General 04/02/[address] [place] [phone] documented as of this encounter
--- OUTSIDE RECORDS SUMMARY | 2022-02-19 01:12 | XMS_ITS | Encounter Summary ---
:1940 Author Organization [facility] Address [address] [place] [address] Care Team Providers Name Role Phone Nayan Hilton Primary Care Provider Reason for Visit Reason Comments Advice Only Colon cancer involving the u terus Encounter Details Date Type Department Care Team Description 11/19/2019 Initial consult [facility] Renate Loomis cancer, Gynecologic Oncology MD Kylah MSc ascending ([facility]) - [facility] [address] (Primary Dx) [address] [place], [place] [phone] [place] [address] Pavilion, [address] [place] [phone] (Wo rk) Social History Tobacco [...] underwent CT scans and colonoscopy up at [facility]. Colonoscopy with invasive adenocarcinoma of the [...] No alcohol use, never smoker. Works for [employer] and [employer]. PSH: Surgical history: Tonsillectomy Family history: Mother [...] decides [facility] and if she decides on surgery, thatI [...] colon documented in this encounter Care Teams Head Of Digital Relationship Specialty Start Date End Date Nayan Hilton DO PCP - General 06/17/17 04/01/20 documented as of this encounter
--- OUTSIDE RECORDS SUMMARY | 2022-02-19 01:12 | XMS_ITS | Encounter Summary ---
:1940 Author Organization [facility] Address [address] [place] [address] Care Team Providers Name Role Phone Nayan Hilton Primary Care Provider Reason for Visit Reason Onset Date Comments Other 11/20/2019 Encounter Details Date Type Department Care Team Description 11/20/2019 Telephone [facility] Valerie Sams MD Other Surgery - [facility] [address] [address] [address], [place], [place] [phone] (Wo rk) Social History [...] like to have COVID testing done in [place]. 11/20: I have spoken again with Joy. I have tried to explain that an ostomy is the best option in regards to her surgery. I did advise her she was welcome to persue a second opinion perhaps at [facility] She is upset, crying, still does not understand the complexity of her surgery. I have asked her totake a couple of days and talk it over with her and call me back with a decision. I will also reach out to Dr Isaacs's office for their help coordinating COVID testing at [facility] if she agress to proceed with surgery and to help support Joy with her decision. Telephone Encounter - Jennifer Arias - 11/20/2019 1155 EDT Pt calling with questions for the nurse/ please return call documented in this encounter Plan of Treatment Not on filedocumented as of this encounter Visit Diagnoses Not on filedocumented in this encounter Care Teams Clip Coater Relationship Specialty Start Date End Date Nayan Hilton DO PCP - General 06/17/17 04/01/20 documented as of this encounter
--- OUTSIDE RECORDS SUMMARY | 2022-02-19 01:12 | XMS_ITS | Encounter Summary ---
:1940 Author Organization [facility] Address [address] [place] [address] Care Team Providers Name Role Phone Nayan Hilton Primary Care Provider Reason for Visit Reason Comments New Patient Visit Flex/sig Colon Cancer Encounter Details Date Type Department Care Team Description 11/19/2019 Office Visit [facility] Valerie Zamora MD Malignant neoplasm of General Surgery - [address] [place] [address] ([facility]) (Primary [address] [facility], Main Dx) [place] [address] [address], [place] [phone] (Wo rk) Social History Tobacco Use Types [...] days. documented in this encounter Progress Notes Valerie Zamora MD - 11/19/2019 0945 EDT Colorectal Surgery Chief Complaint: Cecum/sigmoid cancer [...] underwent CT scans and colonoscopy up at [facility]. Colonoscopy with invasive adenocarcinoma of the [...] no alcohol use, never smoker. Works for [employer], [employer] and [employer] CT scan of the chest abdomen and [...] confirmed prior to the procedure. With a customer relations advisor present the patient was placed in the [...] if necessary. .Valerie Zamora MD 11/19/2019 11:16 Javon Benson RN - 11/19/2019 0945 EDT Patient Education Topic: SSI/Ostomy Teaching Method: Handout and Verbal Taught to: Family and Patient Barriers: None Outcomes: verbalized understanding Signature: JAVON BENSON RN Full Surgical Prep and brief ostomy teaching reviewed with Joy and her . I can tell they are both overwhelmed and not in favor of an ostomy. I will send the prescriptions to [facility] in [place]. I have also encouraged Joy to increase her ambulation and increase her caloric and protein needs starting immediately. I was supervised by Dr Zamora who was present and immediately available in the office suite. JAVON BENSON RN 11/19/2019 14:58 documented in this encounter Plan of Treatment Not on filedocumented as of this encounter Results (ABNORMAL) COMPLETE BLOOD COUNT (11/19/2019 12:36 EDT) athologist Signature WBC 9.83 4.00 - 11/19/2019 [facility] 12.40 13:04 EDT CENTER /[facility] LABORATORY SERVICES RBC 3.57 (L) 3.86 - 11/19/2019 [facility] 5.04 M/cmm 13:04 EDT CENTER LABORATORY SERVICES Hemoglobin 8.6 (L) 11.6 - 11/19/2019 [facility] 15.2 gm/dL 13:04 EDT CENTER LABORATORY SERVICES HCT 29.4 (L) 34.9 - 11/19/2019 [facility] 44.4 % 13:04 EDT CENTER LABORATORY SERVICES MCV 82 81 - 98 fl 11/19/2019 [facility] 13:04 EDT CENTER LABORATORY SERVICES MCH 24.1 (L) 26.7 - 11/19/2019 [facility] 33.3 pg 13:04 EDT CENTER LABORATORY SERVICES Hypochromia 1+ 11/19/2019 [facility] 13:04 EDT CENTER LABORATORY SERVICES MCHC 29.3 (L) 32.1 - 11/19/2019 [facility] 35.9 gm/dL 13:04 EDT CENTER LABORATORY SERVICES RDW-CV 17.0 (H) <14.7 % 11/19/2019 [facility] 13:04 EDT CENTER LABORATORY SERVICES RDW-SD 49.7 <50.4 fl 11/19/2019 [facility] 13:04 EDT CENTER LABORATORY SERVICES Anisocytosis 1+ 11/19/2019 [facility] 13:04 EDT CENTER LABORATORY SERVICES PLT 626 (H) 141 - 377 11/19/2019 [facility] K/cmm 13:04 EDT CENTER LABORATORY SERVICES MPV 9.1 (L) 9.5 - 12.7 11/19/2019 [facility] fl 13:04 EDT CENTER LABORATORY SERVICES Specimen Anatomical Collection Method / Collection Time Recei randi Time (Source) Location / Volume Laterality Blood VENOUS BLOOD / Venipuncture / 11/19/2019 12:36 020 Unknown Unknown EDT 12:55 EDT Vlaerie Zamora MD HEMATOLOGY & PF4 ORDERABLES Performing Organization Address City/State/ZIP Code Phon e Number [facility] LABORATORY [address] [place] [address] SERVICES CREATININE (11/19/2019 12:36 EDT) P athologist Signature Creatinine 0.81 0.52 - 1.04 11/19/2019 [facility] mg/dL 13:23 EDT CENTER LABORATORY SERVICES eGFR 70 >60 11/19/2019 [facility] mL/min/1.73 13:23 EDT CENTER m2 LABORATORY SERVICES Comment: eGFR calculated using CKD-EPI e quation for non- Americans. Multiply eGFR by 1.16 for josias ts. Specimen Anatomical Collection Method / Collection Time Recei randi Time (Source) Location / Volume Laterality Blood VENOUS BLOOD / Venipuncture / 11/19/2019 12:36 020 Unknown Unknown EDT 12:54 EDT Valerie Zamora MD CHEMISTRY & BLOOD GAS ORDERA BLES Performing Organization Address City/[facility]/ZIP Code Phon e Number [facility] LABORATORY [address] [place] [address] SERVICES BUN (11/19/2019 12:36 EDT) athologist Signature BUN 18 10 - 26 11/19/2019 [facility] mg/dL 13:23 EDT CENTER LABORATORY SERVICES Specimen Anatomical Collection Method / Collection Time Recei randi Time (Source) Location / Volume Laterality Blood VENOUS BLOOD / Venipuncture / 11/19/2019 12:36 020 Unknown Unknown EDT 12:54 EDT Valerie Zamora MD CHEMISTRY & BLOOD GAS ORDERA BLES Performing Organization Address [facility] Phon e Number [facility] LABORATORY [address] [place] [address] SERVICES (ABNORMAL) ELECTROLYTES (11/19/2019 12:36 EDT) P athologist Signature Sodium 132 (L) 136 - 145 11/19/2019 [facility] mEq/L 13:23 EDT CENTER LABORATORY SERVICES Potassium 4.3 3.5 - 5.0 11/19/2019 [facility] mEq/L 13:23 EDT CENTER LABORATORY SERVICES Chloride 97 96 - 110 11/19/2019 [facility] mEq/L 13:23 EDT CENTER LABORATORY SERVICES CO2 Total 25 22 - 32 11/19/2019 [facility] mEq/L 13:23 EDT CENTER LABORATORY SERVICES Specimen Anatomical Collection Method / Collection Time Recei randi Time (Source) Location / Volume Laterality Blood VENOUS BLOOD / Venipuncture / 11/19/2019 12:36 020 Unknown Unknown EDT 12:54 EDT Valerie Zamora MD CHEMISTRY & BLOOD GAS ORDERA BLES Performing Organization Address City/State/ZIP Code Phon e Number [facility] LABORATORY [address] [place] [address] SERVICES PRE-OP BLOOD BANK DRAW (11/19/2019 12:36 EDT) [facility] gist Method Time Signature Hold BB Specimen valid 11/19/2019 [facility] up to 30 days 14:36 EDT CENTER BLOOD from collection BANK date. Specimen Anatomical Collection Method / Collection Time Recei randi Time (Source) Location / Volume Laterality Blood VENOUS BLOOD / Venipuncture / 11/19/2019 12:36 020 Unknown Unknown EDT 12:48 EDT Valerie Zamora MD BLOOD BANK TESTS Performing Organization Address City/[facility]/ZIP Code Phon e Number [facility] BLOOD BANK [address] [place] [address] documented in this encounter Visit Diagnoses Diagnosis [...] 11/19/2019 documented in this encounter Care Teams Corduroy Cutting Supervisor Relationship Specialty Start Date End Date Nayan Hilton DO PCP - General 06/17/17 04/01/20 documented as of this encounter
--- OUTSIDE RECORDS SUMMARY | 2022-02-19 01:12 | XMS_ITS | Encounter Summary ---
:1940 Author Organization [facility] Address [address] [place] [address] Care Team Providers Name Role Phone Manuel Isaacs MD Primary Care Provider Encounter Details Date Type Department Care Team Description 07/24/2021 Lab Requisition [facility] Outr Resulting Lab, Pathology & Laboratory Provider [facility] [address] [place], [place] [id number] Social History Tobacco Use Types Packs/Day Years [...] this encounter Results CEA (07/24/2021 8:30 EDT) athologist Signature CEA 4.2 See Note 07/24/2021 [facility] ng/mL 18:08 EDT CENTER LABORATORY SERVICES Comment: % Distribution of CEA (ng/mL): ??0.0 - 2.5 in 98.2% of Nonsmokers and 87.3% of Smokers ??2.6 - 5 in 1.8% of Nonsmokers and 8% of Smokers ??5.1 - 10.1 in 4.7% of Smokers NOTE: Serum CEA concentration should not be in terpeted as absolute evidence for the presence or absence of malignant disease. ?? Assayed on Siemens Melintaaur XPT usi ng chemiluminescent technology. ??Values obtained by different assay methods cannot be used interchangeably. Specimen Anatomical Collection Method Collection Time Receive d Time (Source) Location / / Volume Laterality Blood VENOUS BLOOD / 07/24/2021 8:30 07/24/2021 Unknown EDT 17:08 EDT Provider Outr Resulting Lab CHEMISTRY & BLOOD GAS JULIA GALARZA Performing Organization Address City/State/ZIP Code Phon e Number [facility] LABORATORY [address] [place] [address] SERVICES documented in this encounter Visit Diagnoses Not on filedocumented in this encounter Care Teams Director Of Reimbursement Relationship Specialty Start Date End Date Manuel Isaacs MD PCP - General 04/02/[address] [place] [phone] documented as of this encounter
--- OUTSIDE RECORDS SUMMARY | 2022-02-19 01:12 | XMS_ITS | Encounter Summary ---
:1940 Author Organization [facility] Address [address] [place] [address] Care Team Providers Name Role Phone Manuel Isaacs MD Primary Care Provider Encounter Details Date Type Department Care Team Description 05/20/2021 Lab Requisition [facility] Outr Resulting Lab, Pathology & Laboratory Provider [facility] [address] [place], [place] [id number] Social History Tobacco Use Types Packs/Day Years [...] this encounter Results CEA (05/20/2021 8:58 EST) athologist Signature CEA 2.9 See Note 05/20/2021 [facility] ng/mL 23:10 EST CENTER LABORATORY SERVICES Comment: % Distribution of CEA (ng/mL): ??0.0 - 2.5 in 98.2% of Nonsmokers and 87.3% of Smokers ??2.6 - 5 in 1.8% of Nonsmokers and 8% of Smokers ??5.1 - 10.1 in 4.7% of Smokers NOTE: Serum CEA concentration should not be in terpeted as absolute evidence for the presence or absence of malignant disease. ?? Assayed on Siemens Greendizeraur XPT usi ng chemiluminescent technology. ??Values obtained by different assay methods cannot be used interchangeably. Specimen Anatomical Collection Method Collection Time Receive d Time (Source) Location / / Volume Laterality Blood VENOUS BLOOD / 05/20/2021 8:58 05/20/2021 Unknown EST 21:45 EST Provider Outr Resulting Lab CHEMISTRY & BLOOD GAS JULIA GALARZA Performing Organization Address City/State/ZIP Code Phon e Number [facility]ORAT[facility] [address] [place] [address] SERVICES documented in this encounter Visit Diagnoses Not on filedocumented in this encounter Care Teams Animal Behaviorist Relationship Specialty Start Date End Date Manuel Isaacs MD PCP - General 04/02/[address] [place] [phone] documented as of this encounter
--- OUTSIDE RECORDS SUMMARY | 2022-02-19 01:12 | XMS_ITS | Encounter Summary ---
:1940 Author Organization [facility] Address [address] [place] [address] Care Team Providers Name Role Phone Jodi Camp MD Primary Care Provider Reason for Visit Reason Onset Date Comments Appointment Related 09/29/2015 Encounter Details Date Type Department Care Team Description 09/29/2015 Telephone [facility] Acute Cami Drake R N Appointment Related Care Surgery - Main [place] [address] [place] [address] Social History Tobacco Use Types [...] Encounter - Cami Drake RN - 09/29/2015 6463 EDT Spoke to patient and scheduled follow-up appointment regarding perforated appendicitis. Appointment scheduled for October 07, 2015 at 9 am and she is aware of location. documented in this encounter Plan of Treatment Not on filedocumented as of this encounter Visit Diagnoses Not on filedocumented in this encounter Care Teams Rate Manager Relationship Specialty Start Date End Date Jodi Camp MD PCP - General 09/03/15 12/22/[address] [address] documented as of this encounter
--- OUTSIDE RECORDS SUMMARY | 2022-02-19 01:12 | XMS_ITS | Encounter Summary ---
:1940 Author Organization [facility] Address [address] [place] [address] Care Team Providers Name Role Phone Nayan Hilton Primary Care Provider Reason for Visit Reason Onset Date Comments Coordination Of Care 11/22/2019 Encounter Details Date Type Department Care Team Description 11/22/2019 Telephone [facility] Sophie Benson RN Coordination Of Care General Surgery - [phone] [place] [phone] Social History Tobacco Use Types Packs/Day Years [...] on RN line at PCP office in [place]. I have spoken with Mohamud from [facility]. I have relayed Joy's reluctance to accept she might have an ostomy and have asked her to relay this to Dr Isaacs. I have also asked them to help us arrange COVID testing as Joy would like it done in [place]. documented in this encounter Plan of Treatment Not on filedocumented as of this encounter Visit Diagnoses Not on filedocumented in this encounter Care Teams Liquid Waste Treatment Plant Operator Relationship Specialty Start Date End Date Nayan Hilton DO PCP - General 06/17/17 04/01/20 documented as of this encounter
--- OUTSIDE RECORDS SUMMARY | 2022-02-19 01:12 | XMS_ITS | Encounter Summary ---
:1940 Author Organization [facility] Address [address] [place] [address] Care Team Providers Name Role Phone Nayan Hilton Primary Care Provider Manuel Isaacs MD Primary Care Provider Encounter Details Date Type Department Care Team Description 10/01/2019 Lab Requisition [facility] Viviana Loera for other Pathology & Ramsey Medina MD general examination Laboratory Medicine [address] [place] [address] [address] [place], [place] [phone] [place] [phone] Social History Tobacco Use Types Packs/Day Years [...] encounter Results SURGICAL PATHOLOGY (09/28/2019 16:00 EDT) Component Value Ref Test Analysis Performed At [facility] Range Method Time Signature Final A. SKIN OF VULVA, RIGHT LABIA, 9 O'CLOCK, BIOPSY: 10/04/2019 [facility] Electronically Diagnosis - Interface dermatitis. See comment. 11: 35 [facility] signed by [facility] LABORATORY Karin parker MD SERVICES on 0 at 1135 Attestation By the signature 10/04/2019 [facility] Electronically below, the 11:35 [facility] signed by Damion attending LABORATORY Karin parker MD physician SERVICES on 0 at certifies that 1135 they have 1) personally conducted a gross and/or microscopic examination of the described specimen(s), and/or personally interpreted the results of laboratory testing of the described specimen(s), and 2) personally rendered or confirmed the above diagnosis. Diagnosis Although there is 10/04/2019 [facility] Comment no developed 11:35 [facility] sclerosis, the LABORATORY histologic SERVICES features are consistent with early lichen sclerosus. Microscopic Sections consist 10/04/2019 [facility] Description of a biopsy of 11:35 [facility] skin/mucosa. LABORATORY There is slight SERVICES hyperkeratosis. The epithelium varies to a mild degree in thickness. There is mild interface vacuolar change with occasional necrotic cells. There is a patchy lichenoid lymphocytic infiltrate. Collagen bundles in the superficial dermis are slightly thickened on deeper sections. Clinical Lichen sclerosus 10/04/2019 [facility] History 11:[address] [place] [address] LABORATORY SERVICES Gross A. Received in formalin labe lled with proper patient identification (initials H, I) and not otherwise specified is a shave biopsy of white focally pale pate skin (0.4 x 0.3 x 0.2 cm). The probable margin 10/04/2019 [facility] Description is inked blue. Specimen is submitted intact in A1. 11:[address] [place] [address] LABORATORY Dharmesh Yousif 10/02/2019 9:47 SERVICES Scanned Images 10/04/2019 [facility] 11:35 EDT CENTER LABORATORY SERVICES Specimen Anatomical Collection Method Collection Time Receive d Time (Source) Location / / Volume Laterality Tissue ENTIRE VULVA / 09/28/2019 16:00 0 7:11 Unknown EDT EDT Ramsey Loera MD PATHOLOGY ORDERABLES Performing Organization Address City/State/ZIP Code Phon e Number [facility] [address] [place] [address] SERVICES documented in this encounter Visit Diagnoses Diagnosis Encounter for other general examination documented in this encounter Care Teams Practice Consultant Relationship Specialty Start Date End Date Nayan Hilton DO PCP - General 06/17/17 04/01/20 Manuel Isaacs MD PCP - General 04/02/[address] [place] [phone] documented as of this encounter
--- OUTSIDE RECORDS SUMMARY | 2022-02-19 01:12 | XMS_ITS | Encounter Summary ---
:1940 Author Organization [facility] Address [address] [place] [address] Care Team Providers Name Role Phone Nayan Hilton DO Primary Care Provider Reason for Visit (Routine) - Receiving Office to Obtain Authorization Specialty Diagnoses / Procedures Referred By Contact Refer red To Contact Procedures Unknown, Provider, US OUTSIDE IMAGES BODY Phone: Referral ID Status Reason Start Expiration Visits Visits Date Date Requested Authorized [id number] Receiving Office 11/07/2019 1 1 to Obtain Authorization Encounter Details Date Type Department Care Team Description 10/23/2019 Hospital Encounter [facility] Radiology - [place] [address] [place] [address] Social History Tobacco Use Types Packs/Day Years [...] OUTSIDE IMAGES BODY (11/07/2019 12:17 EDT) Specimen (Source) Anatomical Location Collection Method / Collectio n Time Received Time / Laterality Volume Narrative [facility] - 11/07/2019 12:17 EDT This is a non-reportable exam. Provider Unknown MD BESS OTHER IMAGING ORDERABLES Performing Organization Address City/State/ZIP Code Phon e Number [facility] documented in this encounter Visit Diagnoses Not on filedocumented in this encounter Care Teams Regional Safety Manager Relationship Specialty Start Date End Date Nayan Hilton DO PCP - General 06/17/17 04/01/20 documented as of this encounter
--- OUTSIDE RECORDS SUMMARY | 2022-02-19 01:12 | XMS_ITS | Encounter Summary ---
:1940 Author Organization [facility] Address [address] [place] [address] Care Team Providers Name Role Phone Manuel Isaacs MD Primary Care Provider Encounter Details Date Type Department Care Team Description 06/26/2021 Lab Requisition [facility] Outr Resulting Lab, Pathology & Laboratory Provider [facility] [address] [place] [address] Social History Tobacco Use Types [...] this encounter Results CEA (06/26/2021 8:50 EDT) athologist Signature CEA 8.2 See Note 06/26/[address] [facility] ng/mL 21:03 EDT CENTER LABORATORY SERVICES Comment: % Distribution of CEA (ng/mL): ??0.0 - 2.5 in 98.2% of Nonsmokers and 87.3% of Smokers ??2.6 - 5 in 1.8% of Nonsmokers and 8% of Smokers ??5.1 - 10.1 in 4.7% of Smokers NOTE: Serum CEA concentration should not be in terpeted as absolute evidence for the presence or absence of malignant disease. ?? Assayed on Siemens Media Radaraur XPT usi ng chemiluminescent technology. ??Values obtained by different assay methods cannot be used interchangeably. Specimen Anatomical Collection Method Collection Time Receive d Time (Source) Location / / Volume Laterality Blood VENOUS BLOOD / 06/26/2021 8:50 06/26/2021 Unknown EDT 18:58 EDT Provider Outr Resulting Lab CHEMISTRY & BLOOD GAS JULIA GALARZA Performing Organization Address City/State/ZIP Code Phon e Number [facility] [address] [place] [address] SERVICES documented in this encounter Visit Diagnoses Not on filedocumented in this encounter Care Teams Nurse Wound Relationship Specialty Start Date End Date Manuel Isaacs MD PCP - General 04/02/[address] [place] [phone] documented as of this encounter
--- OUTSIDE RECORDS SUMMARY | 2022-02-19 01:12 | XMS_ITS | Encounter Summary ---
:1940 Author Organization [facility] Address [address] [place] [address] Care Team Providers Name Role Phone Jodi Camp MD Primary Care Provider Reason for Visit Reason Onset Date Comments Procedure 10/20/2015 schedule echo Follow-up 10/27/2015 Appt /follow up Encounter Details Date Type Department Care Team Description 10/20/2015 Telephone [facility] Juhi Moncada RN Proc edure (schedule Cardiology - Amber echo); Follow-up (Appt [address] /follow up) [place] [address] Social History Tobacco Use Types Packs/Day Years [...] Follow-up Summary/Symptoms: Pt calling back states dr. Jacinto gray next availble 12/18/15, so would prefer sooner here, scheduled 11/04/15 appt @ 6pm w/ Contreras Preston- pt aware and is all set Em Palmer 10/27/2015 11:08 Telephone Encounter - Juhi Moncada RN - 10/27/2015 [...] on filedocumented in this encounter Care Teams Keyliner Relationship Specialty Start Date End Date Jodi Camp MD PCP - General 09/03/15 12/22/[address] [address] documented as of this encounter
--- OUTSIDE RECORDS SUMMARY | 2022-02-19 01:12 | XMS_ITS | Encounter Summary ---
:1940 Author Organization [facility] Address [address] [place] [address] Care Team Providers Name Role Phone Dacia Hendrix MD Primary Care Provider [phone] Reason for Referral TOP COLLAR MAKER (Routine) - Closed Specialty Diagnoses / Procedures Referred By Contact Refer red To Contact Diagnoses Adnexal cyst Fluid in endometrial cavity Shantelle Ureña MD Procedures GLASS BREAKER US PELVIS TRANSVAGINAL [address] [place] [phone] Referral ID Status Reason Start Date Expiration Date Visits Requ ested Visits Authorized [id number] Closed 06/21/2016 1 1 Encounter Details Date Type Department Care Team Description 06/21/2016 Orders Only [facility] Shantelle Ureña Adnexa l cyst (Primary Dx); Women's Services - MD Claudine Fluid in endometrial cavity [facility] [address] [place], [place] [address] [place] [address] [phone] (Wo rk) Social History Tobacco [...] Name Priority Date/Time Associated Diagnosis Comme nts GLASS BREAKER US PELVIS Routine 06/20/2017 9:07 Adnexal cyst Results for this TRANSVAGINAL EDT Fluid in endometrial procedu re are in cavity the results section. documented in this encounter Results GLASS BREAKER US PELVIS TRANSVAGINAL (06/20/2017 9:07 EDT) Anatomical Region Laterality Modality Other Specimen Anatomical Collection Method Collection Time Receive d Time (Source) Location / / Volume Laterality 06/20/2017 9:07 06/20/2017 EDT 11:15 EDT Narrative 06/20/2017 11:15 EDT Indication Follow-up simple adnexal [...] free fluid visualized . Impression Transvaginal Pelvic [id number] 1. Stable intracavitary fluid with thin endometrium [...] 06/20/2017 Procedure Note Shantelle Ureña MD - 06/20/2017Format ting of this note might be different from the original. Indication Follow-up simple adnexal cyst . Uterus [...] free fluid visualized . Impression Transvaginal Pelvic [id number] 1. Stable intracavitary fluid with thin endometrium [...] for additional details. DATE OF SERVICE: 06/20/2017 Shantelle Ureña MD IMG US GLASS BREAKER ORDERABLES documented in this encounter Visit Diagnoses Diagnosis Adnexal cyst - Primary Other specified symptom associated with female genital organs Fluid in endometrial cavity Other specified disorders of uterus, not elsewhere classified documented in this encounter Care Teams Grain Merchandising Manager Relationship Specialty Start Date End Date Dacia Hendrix MD PCP - General 12/23/15 06/16/17 [address] [place] [address] documented as of this encounter
--- OUTSIDE RECORDS SUMMARY | 2022-02-19 01:12 | XMS_ITS | Encounter Summary ---
:1940 Author Organization [facility] Address [address] [place] [address] Care Team Providers Name Role Phone YobaniNayan Pedro HARRISON Primary Care Provider Manuel Isaacs MD Primary Care Provider Encounter Details Date Type Department Care Team Description 10/16/2019 Lab Requisition [facility] Dank Arciniega Ot her specified Pathology & MD disorders of bladder Laboratory Medicine [address] [place] [address] [address] [place], [place] [address] [place] [id number] Social History Tobacco Use Types Packs/Day Years [...] Priority Date/Time Associated Diagnosis Comme nts NON SPACE SCIENCES DIRECTOR/FNA Today 10/16/2019 11:09 Results for this CYTOLOGY EDT procedure are i n the results section. documented in this encounter Results NON SPACE SCIENCES DIRECTOR/FNA CYTOLOGY (10/16/2019 11:09 EDT) Component Value Ref Test Analysis Performed At [facility] gist Range Method Time Signature Final URINE, BARBOTAGE, CYTOLOGIC EVALUATION: 10/17/2019 [facility] Electronically Diagnosis - Atypical urothelial cells. See comment. 15:28 EDT CENTER signed by Mustapha, LABORATORY Alona Carpenter MD SERVICES on 10/17/19 at 1528 Attestation There was significant reside nt/fellow involvement in the diagnostic evaluation of this case. 10/17/2019 [facility] Sandy ctronically By the signature below, the attending physician certifies that they have personally conducted a gross and/or microscopic 15:28 EDT CENTER signed by Mustapha, examination of the described specimens and rendered or confirmed the above diagnosis. LABORATORY Alona Waggoner MD SERVICES on 10/17/19 at 1528 Diagnosis Cytologic 10/17/2019 [facility] Comment evaluation 15:28 EDT CENTER reveals several LABORATORY groups of SERVICES atypical urothelial cells in a background of reactive urothelial cells and acute inflammation. The atypical cells are hyperchromatic with increased nuclear to cytoplasmic ratios, irregular nuclear membranes and course chromatin, however, there is also degenerative changes. 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 Correlation with clinical findings advised. Clinical N32.89 - Mass of 10/17/2019 [facility] History urinary bladder. 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 10/17/2019 [facility] [place] Description 15:28 EDT CENTER LABORATORY SERVICES Resident/Marcus Browne, 10/17/2019 [facility] DEZ KRYSTYNA w: DO 15: EDT CENTER LABORATORY SERVICES Scanned Images 10/17/2019 [facility] 15:28 EDT CENTER LABORATORY SERVICES Specimen Anatomical Collection Method Collection Time Receive d Time (Source) Location / / Volume Laterality ZZUNK URINE SPECIMEN / 10/16/2019 11:09 020 7:25 Unknown EDT EDT Dank Arciniega MD PATHOLOGY ORDERABLES Performing Organization Address City/State/ZIP Code Phon e Number [facility] [address] [place] [address] SERVICES documented in this encounter Visit Diagnoses Diagnosis Other specified disorders of bladder documented in this encounter Care Teams Partner Cco Relationship Specialty Start Date End Date Nayan Hilton DO PCP - General 06/17/17 04/01/20 Manuel Isaacs MD PCP - General 04/02/[address] [place] [phone] documented as of this encounter
--- OUTSIDE RECORDS SUMMARY | 2022-02-19 01:12 | XMS_ITS | Encounter Summary ---
:1940 Author Organization [facility] Address [address] [place] [address] Care Team Providers Name Role Phone Nayan [...] on filedocumented in this encounter Care Teams Water Safety Teacher Relationship Specialty Start Date End Date Nayan Hilton DO PCP - General 06/17/17 04/01/20 documented as of this encounter
--- OUTSIDE RECORDS SUMMARY | 2022-02-19 01:12 | XMS_ITS | Encounter Summary ---
:1940 Author Organization [facility] Address [address] [place] [address] Care Team Providers Name Role Phone Manuel Isaacs MD Primary Care Provider Encounter Details Date Type Department Care Team Description 04/22/2021 Lab Requisition [facility] Outr Resulting Lab, Pathology & Laboratory Provider [facility] [address] [place] [address] Social History Tobacco Use [...] this encounter Results CEA (04/22/2021 9:44 EST) athologist Signature CEA 3.6 See Note 04/22/2021 [facility] ng/mL 22:34 EST CENTER LABORATORY SERVICES Comment: % Distribution of CEA (ng/mL): ??0.0 - 2.5 in 98.2% of Nonsmokers and 87.3% of Smokers ??2.6 - 5 in 1.8% of Nonsmokers and 8% of Smokers ??5.1 - 10.1 in 4.7% of Smokers NOTE: Serum CEA concentration should not be in terpeted as absolute evidence for the presence or absence of malignant disease. ?? Assayed on Siemens itravelaur XPT usi ng chemiluminescent technology. ??Values obtained by different assay methods cannot be used interchangeably. Specimen Anatomical Collection Method Collection Time Receive d Time (Source) Location / / Volume Laterality Blood VENOUS BLOOD / 04/22/2021 9:44 04/22/2021 Unknown EST 21:43 EST Provider Outr Resulting Lab CHEMISTRY & BLOOD GAS JULIA GALARZA Performing Organization Address City/State/ZIP Code Phon e Number [facility] [address] [place] [address] SERVICES documented in this encounter Visit Diagnoses Not on filedocumented in this encounter Care Teams Clinical Registered Nurse Relationship Specialty Start Date End Date Manuel Isaacs MD PCP - General 04/02/[address] [place] [phone] documented as of this encounter
--- OUTSIDE RECORDS SUMMARY | 2022-02-19 01:12 | XMS_ITS | Encounter Summary ---
:1940 Author Organization [facility] Address [address] [place] [address] Care Team Providers Name Role Phone Nayan Hilton DO Primary Care Provider Reason for Visit Reason Onset Date Comments Orders (Non Pre-visit) 11/19/2019 Encounter Details Date Type Department Care Team Description 11/19/2019 Orders Only [facility] Mehdi Kapadia MD Pre-op testing U[facility] - [facility] [address] [place] (Primary Dx) [address] [place], [place] [address] [place] [address] [place], Level [address] [place] [address] (Wo rk) Social History [...] unspecified documented in this encounter Care Teams Cardiac Catheterization Technician Relationship Specialty Start Date End Date Nayan Hilton, PCP - General 06/17/17 04/01/20 documented as of this encounter
--- OUTSIDE RECORDS SUMMARY | 2022-02-19 01:12 | XMS_ITS | Encounter Summary ---
:1940 Author Organization [facility] Address [address] [place] [address] Care Team Providers Name Role Phone Nayan Hilton DO Primary Care Provider Encounter Details Date Type Department Care Team Description 11/19/2019 Orders Only [facility] Valerie Zamora MD Encounter for General Surgery - [address] [facility] laboratory [facility] [address] testing for COVID-[address] [facility], [place] [address] T[address] Level 5 patient (Primary Dx) [phone] [place] [phone] (Wo rk) Social History Tobacco Use Types [...] Primary documented in this encounter Care Teams Geoscience Technician Relationship Specialty Start Date End Date Nayan Hilton DO PCP - General 06/17/17 04/01/20 documented as of this encounter
--- OUTSIDE RECORDS SUMMARY | 2022-02-19 01:12 | XMS_ITS | Encounter Summary ---
:1940 Author Organization [facility] Address [address] [place] [address] Care Team Providers Name Role Phone Dacia Hendrix MD Primary Care Provider [phone] Encounter Details Date Type Department Care Team Description 06/21/2016 Hospital Encounter [facility] - Adele Ureña [facility] MD Claudine [phone] [facility], [address] [place] [address] (Wo rk) Social History [...] Code Departure Means Destination Home or Self Alf documented in this encounter Plan of Treatment Not on filedocumented as of this encounter Visit Diagnoses Not on filedocumented in this encounter Care Teams Catcher Helper Relationship Specialty Start Date End Date Dacia Hendrix MD PCP - General 12/23/15 06/16/[address] [place] [address] documented as of this encounter
--- OUTSIDE RECORDS SUMMARY | 2022-02-19 01:12 | XMS_ITS | Encounter Summary ---
:1940 Author Organization [facility] Address [address] [place] [address] Care Team Providers Name Role Phone Nayan Hilton Primary Care Provider Reason for Visit Laboratory Services (Routine) - New Request Specialty Diagnoses / Procedures Referred By Contact Refer red To Contact Diagnoses Colovesical fistula Bashir Kapadia MD Procedures BACTERIAL CULTURE, URINE [address] [facility], [facility] [address] [place] [address] Referral ID Status Reason Start Date Expiration Date Visits V isits Requested Authorized [id number] New Request 11/14/2019 1 1 Encounter Details Date Type Department Care Team Description 11/19/2019 Phlebotomy Only [facility] ED Center 2 Whiskey Filterer, Acc Colove sical fistula; Phlebotomy Phlebotomy Malignant neoplasm of ascend ing colon ([facility]) [address] [place] [address] Social History Tobacco Use Types Packs/Day Years [...] EDT of ascending colon procedure are in ([facility]) the results section. COMPLETE BLOOD COUNT Routine 11/19/2019 12:36 Malignant neopla sm Results for this EDT of ascending colon procedure are in ([facility]) the results section. TYPE AND SCREEN Today 11/19/2019 12:36 Malignant neoplasm Re sults for this EDT of ascending colon procedure are in ([facility]) the results section. BUN Routine 11/19/2019 12:36 Malignant neoplasm Resul ts for this EDT of ascending colon procedure are in ([facility]) the results section. CREATININE Routine 11/19/2019 12:36 Malignant neoplasm Resul ts for this EDT of ascending colon procedure are in ([facility]) the results section. ELECTROLYTES Routine 11/19/2019 12:36 Malignant neoplasm Resul ts for this EDT of ascending colon procedure are in ([facility]) the results section. documented in this encounter Results TYPE AND SCREEN (11/19/2019 12:36 EDT) [facility] gist Method Time Signature ABO O 11/19/2019 [facility] 14:34 EDT CENTER BLOOD BANK Rh Factor Positive 11/19/2019 [facility] 14:34 EDT CENTER BLOOD BANK Antibody Negative 11/19/2019 [facility] Screen 14:34 EDT CENTER BLOOD BANK Specimen 12/03/2019 @ 11/19/2019 [facility] Expires: 23:59 14:34 EDT CENTER BLOOD BANK Specimen Anatomical Collection Method / Collection Time Recei randi Time (Source) Location / Volume Laterality Blood VENOUS BLOOD / Venipuncture / 11/19/2019 12:36 020 Unknown Unknown EDT 12:48 EDT Valerie Zamora MD BLOOD BANK TESTS Performing Organization Address City/State/ZIP Code Phon e Number [facility] BLOOD BANK [address] [place] [address] (ABNORMAL) COMPLETE BLOOD COUNT (11/19/2019 12:36 EDT) P athologist Signature WBC 9.83 4.00 - 11/19/2019 [facility] 12.40 13:04 EDT CENTER /pending sale to [facility] LABORATORY SERVICES RBC 3.57 (L) 3.86 - 11/19/2019 [facility] 5.04 /pending sale to [facility] 13:04 T CENTER LABORATORY SERVICES Hemoglobin 8.6 (L) 11.6 - 11/19/2019 [facility] 15.2 gm/dL 13:[address] [facility] LABORATORY SERVICES HCT 29.4 (L) 34.9 - 11/19/2019 [facility] 44.4 % 13:04 T CENTER LABORATORY SERVICES MCV 82 81 - 98 fl 11/19/2019 [facility] 13:04 EDT CENTER LABORATORY SERVICES MCH 24.1 (L) 26.7 - 11/19/2019 [facility] 33.3 pg 13:[address] [facility] LABORATORY SERVICES Hypochromia 1+ 11/19/2019 [facility] 13:04 EDT CENTER LABORATORY SERVICES MCHC 29.3 (L) 32.1 - 11/19/2019 [facility] 35.9 gm/dL 13:04 [facility] LABORATORY SERVICES RDW-CV 17.0 (H) <14.7 % 11/19/2019 [facility] 13:04 T CENTER LABORATORY SERVICES RDW-SD 49.7 <50.4 fl 11/19/2019 [facility] 13:04 EDT CENTER LABORATORY SERVICES Anisocytosis 1+ 11/19/2019 [facility] 13:04 EDT CENTER LABORATORY SERVICES PLT 626 (H) 141 - 377 11/19/2019 [facility] /pending sale to [facility] 13:04 EDT CENTER LABORATORY SERVICES MPV 9.1 (L) 9.5 - 12.7 11/19/2019 [facility] fl 13:04 EDT CENTER LABORATORY SERVICES Specimen Anatomical Collection Method / Collection Time Recei randi Time (Source) Location / Volume Laterality Blood VENOUS BLOOD / Venipuncture / 11/19/2019 12:36 020 Unknown Unknown EDT 12:55 EDT Valerie Zamora MD HEMATOLOGY & PF4 ORDERABLES Performing Organization Address City/[facility]/ZIP Code Phon e Number [facility] LABORATORY [address] [place] [address] SERVICES CREATININE (11/19/2019 12:36 EDT) athologist Signature Creatinine 0.81 0.52 - 1.04 11/19/2019 [facility] mg/dL 13:23 EDT CENTER LABORATORY SERVICES eGFR 70 >60 11/19/2019 [facility] mL/min/1.73 13:23 EDT CENTER m2 LABORATORY SERVICES Comment: eGFR calculated using CKD-EPI e quation for non- Americans. Multiply eGFR by 1.16 for patien ts. Specimen Anatomical Collection Method / Collection Time Recei randi Time (Source) Location / Volume Laterality Blood VENOUS BLOOD / Venipuncture / 11/19/2019 12:36 020 Unknown Unknown EDT 12:54 EDT Valerie Zamora MD CHEMISTRY & BLOOD GAS ORDERA BLES Performing Organization Address City/State/ZIP Code Phon e Number [facility] [address] [place] [address] SERVICES BUN (11/19/2019 12:36 EDT) athologist Signature BUN 18 10 - 26 11/19/2019 [facility] mg/dL 13:23 EDT CENTER LABORATORY SERVICES Specimen Anatomical Collection Method / Collection Time Recei randi Time (Source) Location / Volume Laterality Blood VENOUS BLOOD / Venipuncture / 11/19/2019 12:36 020 Unknown Unknown EDT 12:54 EDT Valerie Zamora MD CHEMISTRY & BLOOD GAS ORDERA BLES Performing Organization Address City/[facility]/ZIP Code Phon e Number [facility] [address] [place] [address] SERVICES (ABNORMAL) ELECTROLYTES (11/19/2019 12:36 EDT) athologist Signature Sodium 132 (L) 136 - 145 11/19/2019 [facility] mEq/L 13:23 EDT CENTER LABORATORY SERVICES Potassium 4.3 3.5 - 5.0 11/19/2019 [facility] mEq/L 13:23 EDT CENTER LABORATORY SERVICES Chloride 97 96 - 110 11/19/2019 [facility] mEq/L 13:23 EDT CENTER LABORATORY SERVICES CO2 Total 25 22 - 32 11/19/2019 [facility] mEq/L 13:23 EDT CENTER LABORATORY SERVICES Specimen Anatomical Collection Method / Collection Time Recei randi Time (Source) Location / Volume Laterality Blood VENOUS BLOOD / Venipuncture / 11/19/2019 12:36 020 Unknown Unknown EDT 12:54 EDT Valerie Zamora MD CHEMISTRY & BLOOD GAS ORDERA BLES Performing Organization Address City/State/ZIP Code Phon e Number [facility] [address] [place] [address] SERVICES PRE-OP BLOOD BANK DRAW (11/19/2019 12:36 EDT) [facility] Method Time Signature Hold BB Specimen valid 11/19/2019 [facility] up to 30 days 14:36 EDT CENTER BLOOD from collection BANK date. Specimen Anatomical Collection Method / Collection Time Recei randi Time (Source) Location / Volume Laterality Blood VENOUS BLOOD / Venipuncture / 11/19/2019 12:36 020 Unknown Unknown EDT 12:48 EDT Valerie Zamora MD BLOOD BANK TESTS Performing Organization Address City/[facility]/ZIP Code Phon e Number [facility] BLOOD BANK [address] [place] [address] documented in this encounter Visit Diagnoses Diagnosis Colovesical fistula Intestinovesical fistula Malignant neoplasm of ascending colon ([facility]) (HCC) Malignant neoplasm of ascending colon documented in this encounter Care Teams Aeronautical Test Engineer Relationship Specialty Start Date End Date Nayan Hilton DO PCP - General 06/17/17 04/01/20 documented as of this encounter
--- OUTSIDE RECORDS SUMMARY | 2022-02-19 01:12 | XMS_ITS | Encounter Summary ---
:1940 Author Organization [facility] Address [address] [place] [address] Care Team Providers Name Role Phone Jodi Camp MD Primary Care Provider Encounter Details Date Type Department Care Team Description 12/03/2015 Results Only [facility]- Erica Hendrix MD [phone] [address] [place], [place] [address] (Wo rk) Social History Tobacco Use Types [...] Time (Source) Location / / Volume Laterality 12/23/2015 10:21 12/23/2015 EDT 14:14 EDT Narrative 12/23/2015 14:14 EDT RAD US PELVIS TRANSABDOMINAL AND TRANSVAGINAL ??12/23/2015 10:21 AM Clinical History/Comments: adnexal mass, right. found on ct scan, 6 ..16. Comparison: Outside CT abdomen dated September 03, 2015. Technique: Grayscale static images and limited Dopp ler ultrasound evaluation of the pelvis was performed using transabdo kamaal and transvaginal technique. Findings: Technically difficult examination [...] findings. Procedure Note Justyn Shelton MD - 12/23/2015For matting of this note might be different from the original. RAD US PELVIS TRANSABDOMINAL AND TRANSVA GINAL 12/23/2015 10:21 AM Clinical History/Comments: adnexal mass, right. found on ct scan, 6 .04.19. Comparison: Outside CT abdomen dated September 03, [...] above interpretation and agree with the findings. Dacia Hendrix MD IMG US ORDERABLES documented in this encounter Visit Diagnoses Not on filedocumented in this encounter Care Teams Computer Systems Software Engineer Relationship Specialty Start Date End Date Jodi Camp MD PCP - General 09/03/15 12/22/[address] [address] (work) documented as of this encounter
--- OUTSIDE RECORDS SUMMARY | 2022-02-19 01:12 | XMS_ITS | Encounter Summary ---
:1940 Author Organization [facility] Address [address] [place] [address] Care Team Providers Name Role Phone Jodi Camp MD Primary Care Provider Reason for Visit Reason Onset Date Comments Appointment Related 09/10/2015 Call patient with a follow up visit with trauma, She is s/p treatment for presumed perforated appendicitis Encounter Details Date Type Department Care Team Description 09/10/2015 Telephone [facility] Jessica Darby tment Related Acute Care Surgery - MD ePdro (Call patient with a Main [place] [facility] [address] [facility], She is s/p [place], [place] [id number] [place] [address] treatment for presumed [phone] perforated appe ndicitis) Social History Tobacco Use [...] on filedocumented in this encounter Care Teams Vest Maker Relationship Specialty Start Date End Date Jodi Camp MD PCP - General 09/03/15 12/22/15 [facility] [address] [address] documented as of this encounter
--- OUTSIDE RECORDS SUMMARY | 2022-02-19 01:12 | XMS_ITS | Encounter Summary ---
:1940 Author Organization [facility] Address [address] [place] [address] Care Team Providers Name Role Phone YobaniNayan Pedro HARRISON Primary Care Provider Manuel Isaacs MD Primary Care Provider Encounter Details Date Type Department Care Team Description 10/26/2019 Lab Requisition [facility] Outr Resulting Lab, Pathology & Laboratory Provider [facility] [address] [place], [place] [address] Social History Tobacco Use Types Packs/Day Years [...] this encounter Results CEA (10/26/2019 8:16 EDT) athologist Signature CEA 1.5 See Note 10/29/2019 [facility] ng/mL 8:54 EDT CENTER LABORATORY SERVICES Comment: % Distribution of CEA (ng/mL): ??0.0 - 2.5 in 98.2% of Nonsmokers and 87.3% of Smokers ??2.6 - 5 in 1.8% of Nonsmokers and 8% of Smokers ??5.1 - 10.1 in 4.7% of Smokers NOTE: Serum CEA concentration should not be in terpeted as absolute evidence for the presence or absence of malignant disease. ?? Assayed on [employer] XPT usi ng chemiluminescent technology. ??Values obtained by different assay methods cannot be used interchangeably. Specimen Anatomical Collection Method Collection Time Receive d Time (Source) Location / / Volume Laterality Blood VENOUS BLOOD / 10/26/2019 8:16 10/26/2019 Unknown EDT 21:51 EDT Provider Outr Resulting Lab CHEMISTRY & BLOOD GAS JULIA GALARZA Performing Organization Address City/State/ZIP Code Phon e Number [facility] [address] [place] [address] SERVICES documented in this encounter Visit Diagnoses Not on filedocumented in this encounter Care Teams Counter Stitcher Relationship Specialty Start Date End Date Nayan Hilton DO PCP - General 06/17/17 04/01/20 Manuel Isaacs MD PCP - General 04/02/[address] [place] [phone] documented as of this encounter
--- OUTSIDE RECORDS SUMMARY | 2022-02-19 01:12 | XMS_ITS | Encounter Summary ---
:1940 Author Organization [facility] Address [address] [place] [address] Care Team Providers Name Role Phone Manuel Isaacs MD Primary Care Provider Encounter Details Date Type Department Care Team Description 02/18/2021 Lab Requisition [facility] Jamie Jean-Baptiste E ncounter for other Pathology & MD general examination Laboratory Medicine [address] [place] [address] [address] [place] [address] [place], [place] [id number] Social History Tobacco Use Types Packs/Day Years [...] encounter Results SURGICAL PATHOLOGY (02/18/2021 8:57 EST) Component Value Ref Test Analysis Performed Pathologis t Range Method Time At Signature Note to Patient The following [facility] pathology results 1 9:38 CENTER have been [facility] interpreted by your SERVICES pathologist and may be available to you before your health provider has had the opportunity to review them. Please allow time for your provider to receive these results and explore management options, if applicable. Final Diagnosis A. 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 1 9:38 CENTER - See comment. [facility] SERVICES Diagnosis Immunoperoxidase stains were performed on this case to further characterize the lesion. [facility] Comment 1 9:38 [facility] ANTIBODY(CLONE)(BLOCK):RESULT [facility] CDX-2 (EP25, Leica) (A1): Positive SERVICES NOTE: One or more of the re [...] to perform high complexity clinical laboratory testing. Apartment Property Manager slides of thi s case were reviewed at the gastrointestinal/liver intradepartmental consultation conference. (RW) Attestation There was [facility] Electr onically significant 1 9:38 CENTER signed graciela Childs resident/fellow [facility] Milton Sal, involvement in the SERVICES M D on diagnostic 1 at evaluation of this 0 938 case. By the signature below, the attending physician certifies that they have personally conducted a gross and/or microscopic examination of the described specimens and rendered or confirmed the above diagnosis. Intraoperative A. [facility] Consultation OMENTAL MASS, UNORIENTED EXCISION (SPA1): 1 9:38 CENTER - Positive for malignancy. Adenocarcinoma. [facility] - Diagnosis of malignancy te lephoned to Dr. Jean-Bpatiste in OR 1 (x301) at 9:25 AM on 02/18/2021. Dr. Ifeanyi Jain 02/18/2021 S EFRA Clinical History Omental mass [facility] 1 9:38 [facility] Gross A. [facility] Description Received fresh labelled with proper patient identification (initials H, I) and omental mass is an unoriented 2.0 x 2.0 x 1.0 cm ovoid yellow-pate fibrofatty tissue with palpable consolidation. The yuliana 1 9:38 CENTER ins are inked. The tissue is bisected to show a solid pate mass (0.8 cm in greatest dimension) with ill-defined borders from the surrounding fat. A personnel representative section was frozen; however unable to pe [facility] rform frozen section due to technical issue with the cryostat (build up of ice, unable to advance/retract specimen). Therefore, scrape/smear slide was prepared and stained with Diff-Quik with the inter SERVICES retation as rendered above. The majority of the specimen is submitted in A1-A4 with the section that was frozen in A1. [place](ASCP) 02/19/2021 9:54 Resident/Fellow: Axel, [facility] MD Sheela 1 9:38 [facility] Performing Lab [facility] DICAL 1 9:38 [facility] Scanned Images [facility] 1 9:38 [facility] Specimen Anatomical Collection Method Collection Time Receive d Time (Source) Location / / Volume Laterality Tissue SOFT TISSUE / 02/18/2021 8:57 02/19/2021 8:21 Unknown EST EST Jamie Jean-Baptiste MD PATHOLOGY ORDERABLES Performing Organization Address City/State/ZIP Code Phon e Number [facility] [address] [place] [address] SERVICES documented in this encounter Visit Diagnoses Diagnosis Encounter for other general examination documented in this encounter Care Teams Poker Prop Player Relationship Specialty Start Date End Date Manuel Isaacs MD PCP - General 04/02/[address] [place] [address] [phone] documented as of this encounter
--- OUTSIDE RECORDS SUMMARY | 2022-02-19 01:13 | XMS_ITS | Encounter Summary ---
:1940 Author Organization [facility] Address [address] [place] [address] Care Team Providers Name Role Phone Unavailable Primary Care Provider Unavailable Encounter Details Date Type Department Care Team Description 11/21/2007 Before [facility] Unknown, Visit ([facility]) Adult Primary Care - Provider, Merrill Palencia Almond [phone] [address] [facility] (Work) [place] [address] Social History Tobacco Use Types Packs/Day Years [...] this encounter Results CYTOPATHOLOGY (11/21/2007 0:00 EDT) Component Value Ref Test Analysis Performed At [facility] Method Time Signature Pathology CYTOPATHOLOGY REPORT ? [facility] Report: ? [facility] Reports generated via electr [employer] interface contain original data; ? however they are lacking the format of the original report. ? Caution should be taken when reading/interpreting unformatted reports. ? Name: ? JOY CUNHA ? Accession #: ? [id number] ? : ? 1940 (Age: 67) ??F ?Collect Date: ? 11/21/2007 ? Location: ? [facility] ? Receive Date: ? 11/23/2007 ? Provider: ?DOCTOR EHK NOWSeng MD ? Copy to: ?ETHEL BETTS ERSJANICE MD ? Specimen/Source: ? ThinPrep Pap Test, [...] 12:56 ? End of Report ? Specimen (Source) Anatomical Location Collection Method / Collectio n Time Received Time / Laterality Volume 11/21/2007 11/23/2007 Provider Unknown MD PATHOLOGY ORDERABLES Performing Organization Address City/State/ZIP Code Phon e Number [facility] [address] [place] [address] SERVICES [facility] [address] [place] [phone] documented in this encounter Visit Diagnoses Not on filedocumented in this encounter
--- OUTSIDE RECORDS SUMMARY | 2022-02-19 01:13 | XMS_ITS | Encounter Summary ---
:1940 Author Organization [facility] Address [address] [place] [address] Care Team Providers Name Role Phone Unavailable Primary Care Provider Unavailable Encounter Details Date Type Department Care Team Description 12/14/1999 Hospital Encounter [facility] - Ethel Castro MD [address] [place] [address] [address] [place] [phone] Other Unknown, Provider, [address] [place] [address] Social History Tobacco Use Types Packs/Day Years Used Date Smoking Tobacco: Never Assessed Sex Assigned at Date Recorded Not on file documented as of this encounter Discharge Disposition Disposition Code Departure Means Destination Auto Discharge documented in this encounter Plan of Treatment Not on filedocumented as of this encounter Procedures Procedure Name Priority Date/Time Associated Diagnosis Comme [facility] CYTOPATHOLOGY Routine 12/14/1999 0:00 EDT Results for this procedure are i n the results section . documented in this encounter Results CYTOPATHOLOGY (12/14/1999 0:00 EDT) Component Value Ref Test Analysis Performed At [facility] Pathology CYTOPATHOLOGY REPORT [facility] Report: [facility] Reports generated via electronic interface contain original data; however they are lacking the format of the original report. Caution should be taken when reading/interpreting unformatte d reports. Name: ? JOY CUNHA ? Accession #: ? [id number] : ? 1940 (Age: 59) ??F ?Collect Date: ? 12/14/1999 Location: ? [facility] ? Receive Date: ? 12/16/1999 Provider: ?ETHEL CURRIE MD Copy to: ? Specimen/Source: ?ThinPrep Pap Test, Endocervix Last Menstrual Period: ? Menstrual/ Status: ? [...] Date: ??12/16/1999 13:27 End of Report Specimen (Source) Anatomical Location Collection Method / Collectio n Time Received Time / Laterality Volume 12/14/1999 12/16/1999 Ethel Currie MD PATHOLOGY ORDERABLES Performing Organization Address City/State/ZIP Code Phon e Number [facility] [address] [place] [address] SERVICES [facility] [address] [place] [address] documented in this encounter Visit Diagnoses Not on filedocumented in this encounter
--- OUTSIDE RECORDS SUMMARY | 2022-02-19 01:13 | XMS_ITS | Encounter Summary ---
:1940 Author Organization [facility] Address [address] [place] [address] Care Team Providers Name Role Phone Jodi Camp MD Primary Care Provider Encounter Details Date Type Department Care Team Description 09/03/2015 Results Only Imaging [facility]- Emergency, HENRY Ny MD [phone] Social History Tobacco Use Types Packs/Day Years Used Date Smoking Tobacco: Never Assessed Sex Assigned at Date Recorded Not on file documented as of this encounter Plan of Treatment Pending Results Name Type Priority Associated Diagnoses Date/Ti me OUTSIDE IMAGES - OTHER Imaging 09/02 8:40 EDT CHEST documented as of this encounter Visit Diagnoses Not on filedocumented in this encounter Care Teams Tank Officer Relationship Specialty Start Date End Date Jodi Camp MD PCP - General 09/03/15 12/22/15 [facility] MEDICINE [address] [address] documented as of this encounter
--- OUTSIDE RECORDS SUMMARY | 2022-02-19 01:13 | XMS_ITS | Encounter Summary ---
:1940 Author Organization [facility] Address [address] [place] [address] Care Team Providers Name Role Phone Jodi Camp MD Primary Care Provider Reason for Referral Referral (3 - 10 Business Days) - Closed Specialty Diagnoses / Procedures Referred By Contact Refer red To Contact Cardiology Diagnoses Elevated troponin Sepsis, due to unspecified organism Bianka Schmitt NP [facility] Cardiology [address] [facility], [place] [address] [address], [address] [place] [address] Referral ID Status Reason Start Date Expiration Date Visits V isits Requested Authorized [id number] Closed Specialty 09/25/2015 1 1 Services Required Question Answer Reason for Request: Repeat echo recommended by i npatient cardiology Scheduling Comments (optional ? 1-2 weeks describe specific scheduling needs if applicable): Expected Discharge Date (Inpatient Only): 09/07/2015 ollow Up (Routine) - Closed Specialty Diagnoses / Procedures Referred By Contact Refer red To Contact Trauma Surgery Diagnoses Sepsis, due to unspecified organism Intra-abdominal infection Nina Power [facility] Ep5 Trauma/Roberto Mcdonough MD Care [address] [facility] [address] [place] [address] [place] [address] Phone: Fax: Referral ID Status Reason Start Date Expiration Date Visits V isits Requested Authorized [id number] Closed Specialty 09/07/2015 1 1 Services Required Question Answer Reason for Request: f/dodd perforated appendicitis Scheduling Comments (optional ? 2 weeks describe specific scheduling needs if applicable): Expected Discharge Date (Inpatient Only): 09/07/2015 Reason for Visit Reason Comments Fever See tcall. Abd mass on CT Encounter Details Date Type Department Care Team Description 09/03/2015 - [facility] Ken Leggett MD [address] [facility], [facility] [address] [place] [phone] Sepsis, due to unspecified organism ([facility]) (Primary Dx); 09/07/2015 Encounter General Surgery Neida Fisher MD [address] [facility], [facility] 5 [place] [phone] Intra-abdominal infection; Unit Elevated troponin [address] [place], [place] [id number] Social History Tobacco Use Types Packs/Day Years [...] per chart review who was transferred to [facility] from in from an OSH on [...] Atrial septum: Echo contrast study showed no helnh-ei-cinm atrial level ? shunt, at baseline or [...] to self care Hui Calle RN CM [id number] Mary Ren RN - 09/07/2015 1350 EDT Nursing Discharge Note D: Patient noted with discharge orders to: Home. A: Prescriptions provided to patient. Reviewed discharge instructions and prescriptions with Patient IV d/c'd. Belongings collected and sent home with patient. R: Patient verbalized understanding of discharge instructions and denied further questions. Mary Ren RN 09/07/2015 13:50 Kimberli Glasgow MD - 09/07/2015 0850 EDT Acute Care [...] attestation - Jessica Darby MD - 09/07/2015 2185 EDT Attending attestation statement: I saw and examined the patient and agree with the findings and plans as documented. Making appropriate recovery from perforated appendicitis and sepsis. Tolerating PO. Continue antibiotic therapy (total 7 days IV + PO). Likely discharge to home today. Lo??c MD Wilner Acute Care Surgery Pager #[phone] Dalia Delacruz MD - 09/06/2015 3576 EDT Acute Care Surgery Note Admit Date: [...] attestation - Jessica Darby MD - 09/06/2015 1010 EDT Attending attestation statement: I saw and examined the patient and agree with the findings and plans as documented. Making excellent clinical improvement. Afebrile, WBC downtrending. Abdominal exam is benign. Continue Augmentin to complete 7 days total antibiotic therapy. If continues to do well and remains afebrile, will likely be appropriate for discharge to home tomorrow. Lo??c MD Wilner Acute Care Surgery Pager #[phone] Contreras Preston MD - 09/05/2015 5338 EDT Echo without evidence of VSD. RV [...] with further questions. Contreras Preston MD Nithin Lerner MD - 09/05/2015 1248 EDT Acute Care [...] attestation - Jessica Darby MD - 09/05/2015 1706 EDT Attending attestation statement: I saw and examined the patient and agree with the findings and plans as documented. Significantly clinically improved with resolution of septic shock. Abdomen is soft, ND, NTTP. Continue Zosyn for intra-abdominal infection. Remove Jade and CVC. ADAT, resume outpatient medications. Appropriate for transfer to [facility]. Lo??c MD Wilner Acute Care Surgery Pager #[phone] Stacey Johnson RN - 09/05/2015 4810 EDT 0745: Assumed care of pt. Pt [...] transferred to [facility] with transport. Tiffanie Cooper CSW - 09/04/2015 1332 EDT Initial Case [...] POA &/or COLST IN PLACE: No CULTURAL, ORTHODOXY and/or LANGUAGE factors affecting health care/discharge planning: [...] infection clears. HARPAL AVILEZ 09/04/2015 13:32 Contreras Preston MD - 09/04/2015 1238 EDT Patient seen [...] assess for ASD Contreras Preston MD Jamie Encinas, RN - 09/04/2015 0839 EDT 835 Cardiology at bedside indicates Pt will have echo today 1020 echo at bedside 1050 md Caceres rounding with SICU indicates 20mg iv lasix and adv to clears 1130 Pt son at bedside requesting copy of any labwork done discussed that Pt would need to make written request for this info 1155 md Vail aware Pt elizabeth not picking up wave form have flushed and tried repositioning arm several times cuff pressure sbp > 100 and map >60 md indicates dc elizabeth 1420 Pain and Stopak at bedside indicates will have echo bubble study and cvc stay in place untiltomorrow ( off vasopressors for 24hrs), oKfi Thornton MD - 09/04/2015 0648 EDT ICU Note [...] stability Kofi Thornton MD 09/04/2015 6:49 Jamie Encinas RN - 09/03/2015 1345 EDT 1345 md Rony Morgan at bedside to place elizabeth 1355 AP at bedside setting up for cvc 1358 U/s at bedside for imaging 1505 md Caceres rounding with SICU updates Pt and spouse 1527 md Alex at bedside to place elizabeth 1625 md JETT at bedside setting up for CVC placement CAT ARYA Coyle at bedside documented in this encounter H&P Notes Samantha Go MD - 09/03/2015 1206 EDT Surgical H+P Admission Admit Date: 09/03/2015 Date of Service: 09/03/2015 Hospital day: Chief Complaint: Septic shock, fevers HPI: 74 yo female with HLD, hypothyroid who presented to OSH with fevers, fatigue, vague abdominal pain today and found to have profound septic shock and transferred to [facility]. Pt states that 2 weeks [...] personally reviewed the last labs available in [facility] and any transfer labs OSH labs: wbc [...] line and start levophed instead of dopamine Elizabeth for BP monitoring Trend lactate Consult critical [...] 12:[address] Lerner and Dr. Fisher Associated attestation - Neida Fisher MD - [...] Central Catheter Insertion First Catheter This Session program evaluator: Patient Location: [place] [address] Preliminary Data: Insertion Date: 09/03/15 Insertion Time: 1648 [employer] Mail Processor: Dr. Shahzad Anglin RN/MA Documenting Procedure: Hellen [...] Line Operators: Number Of Operators: 2 [employer] Mail Processor's Title: Resident Be[employer] Cattle Farm Manager's Title: Resident Unless otherwise noted, there were no complications, no blood loss and no cultures obtained. Shahzad Robles MD 09/03/2015 17:04 Kofi Thornton MD - 09/03/2015 1623 EDT Arterial Line Placement Indication: monitoring of blood pressure in setting of septic shock Procedure: right arterial line placement Postal Service Mail Processor: Kofi Thornton MD, Shahzad Robles MD Description: [...] CV: No JVD, no HJD, RR, nondisplaced ID Normal S1 S2, no murmurs, rubs or [...] results found for: PHISTAT, PCOISTAT, POISTAT, POCTCO2, F9VFFJPI, BEART, POCFIO2 LFT: Lab Results Component Value [...] lipid panel Joel Escalona MD 09/03/2015 22:20 Social Work Associate Pager # [phone] Associated attestation - Bienvenido Payton MD - 09/04/2015 1043 EDT Attestation: I saw and evaluated the patient on 09/04/2015. I agree with the findings and plan of careas documented in the resident's/fellow's note. Bienvenido Payton MD 09/04/2015 10:43 Kofi Thornton MD - 09/03/2015 1401 EDT ICU Admit Note Admit Date: 09/03/2015 CC: Intra-abdominal infection Subjective: HPI: 74 y.o. female with HLD, hypothyroid, ? Heart failure, who presented to OSH with fevers, fatigue, nausea, vomiting,and vague abdominal pain today and found to have profound septic shock and transferred to [facility]. Pt states that 2 weeks [...] findings concerning for rupture appendix. Transferred to [facility] for further management Past Medical History [...] %] I/O: Current Shift: 09/02 0700 - 09/02 1459 In: 58 [I.V.:58] Out: 400 [Urine:400] [...] Pierre and shown to Ken Leggett MD. Rony Cantu - 09/03/2015 1255 EDT Lactic acid 3.2. CRUZ made aware (RDW) Albaro Pierre - 09/03/2015 1205 EDT Blood drawn via saline lock per protocol, tiger, green and purple tube(s) sent to lab per order. Ken Leggett MD - 09/03/2015 1137 EDT DOS: 09/03/2015 [...] that she went on a trip to [place] August 27 and . Patient reports cold chills that began last evening and emesis that began in the middle of the night. Patient without cough, dysuria or cough. Patient without episodes of syncope or abdominal pain. Patient seen at [facility] prior to transfer where labs for notable [...] added TROPONIN 1 Final Number for problems 40371 (ED) Final ED/URGENT CARE ADD-ON Tests to be added TSH Final Number for problems 31730 (ED) Final ED/URGENT CARE ADD-ON Tests to be added LIPASE Final Number for problems 15342 (ED) Final LACTIC ACID TROPONIN I LIPASE [...] from the Emergency Department: Serious PCP: Jodi COLLAZO Number of Diagnoses or Management Options Intra-abdominal [...] making. 09/03/2015 12:35 No flowsheet data found. Rony Cantu - 09/03/2015 1117 EDT TCALL: ADRIANAANGEL JOY. 44. Sepsis of unknown origin. Fever+weakness, vomiting. [...] or discomfort. Romelia Soriano RN 09/07/2015 1:55 Plan of Care - Leanna Rudd RN - 09/06/2015 2119 EDT Problem: Daily Care Plan Goals Goal: Care Plan Documentation Data: Possible discharge 09/06 if izaaih. Diet and oral abx. Action: patient ate 1/2 turkey sandwich for dinner-offered other food/snacks Response: declined further food. No nausea after abx-continue to monitor Leanna Rudd RN 09/06/2015 21:17 Plan of Care - Virginia Funk RN - [...] to monitor Virginia Funk RN 09/06/2015 12:51 Plan of Care - Lorie Lauren RN - [...] acute changes Lorie Lauren RN 09/06/2015 2:18 Plan of Care - John Davies RN - 09/05/2015 1700 EDT Problem: Daily Care Plan Goals Goal: Care Plan Documentation Outcome: Met This Shift Data: Patient transferred to [place] [address]. Action: Oriented patient to floor. Encouraged meal intake. Contact guard assisted patient OOB to bathroom. Response: Patient denies any pain or nausea. Voided 75 cc of clear, yellow urine. Tolerated regular diet. John Davies RN 09/05/2015 16:59 Plan of Care - Caro Kaufman RN - [...] administered. R: Patient diuresed 2 liters on blankbook forwarder. VSS,. Will CTM. Plan of Care - Caro Kaufman RN - [...] to Ordered: GENERAL SURGERY unspecified organism 08/2015 ([facility]) Intra-abdominal infection AMB CONS/FOLLOW UP Outpatient Referral Routine Elevated troponin Ordered: CARDIOLOGY Sepsis, due to 09/25/2015 unspecified organism ([facility]) documented as of this encounter Procedures Procedure [...] results section. documented in this encounter Results ECG REPORT - SCANNED (09/16/2015 7:11 EDT) Specimen (Source) Anatomical Collection Method Collection Time Re ceived Time Location / / Volume Laterality 09/16/2015 7:11 EDT Narrative This result has an attachment that is no t available. Scan 2 Assistant Tennis Professional PROCEDURE/MINOR SURGICAL ORD ERABLES ECG REPORT - SCANNED (09/10/2015 13:48 EDT) Specimen (Source) Anatomical Collection Method Collection Time Re ceived Time Location / / Volume Laterality 09/10/2015 13:48 EDT Narrative This result has an attachment that is no t available. Scan 2 Assistant Tennis Professional PROCEDURE/MINOR SURGICAL ORD ERABLES ECG REPORT - SCANNED (09/10/2015 13:48 EDT) Specimen (Source) Anatomical Collection Method Collection Time Re ceived Time Location / / Volume Laterality 09/10/2015 13:48 EDT Narrative This result has an attachment that is no t available. Scan 2 Assistant Tennis Professional PROCEDURE/MINOR SURGICAL ORD ERABLES ECG REPORT - SCANNED (2015 10:01 EDT) Specimen (Source) Anatomical Collection Method Collection Time Re ceived Time Location / / Volume Laterality 2015 10:01 EDT Narrative This result has an attachment that is no t available. Scan 2 Assistant Tennis Professional PROCEDURE/MINOR SURGICAL ORD ERABLES (ABNORMAL) HEMAGRAM AND DIFFERENTIAL (09/07/2015 6:31 EDT) [facility] gist Method Time Signature WBC 9.90 4.0 - 09/07/2015 [facility] MEDICAL 12.4 7:03 EDT CENTER K/cmm LABORATORY SERVICES RBC 3.81 (L) 3.86 - 09/07/2015 [facility] MEDICAL 5.04 7:03 EDT CENTER M/cmm LABORATORY SERVICES Hemoglobin 11.2 (L) 11.6 - 09/07/2015 [facility] MEDICAL 15.2 7:03 EDT CENTER gm/dl LABORATORY SERVICES HCT 34.3 (L) 34.9 - 09/07/2015 [facility] MEDICAL 44.4 % 7:03 EDT CENTER LABORATORY SERVICES MCV 90 81 - 98 09/07/2015 [facility] MEDICAL fl 7:03 EDT CENTER LABORATORY SERVICES MCH 29.4 26.7 - 09/07/2015 [facility] MEDICAL 33.3 pg 7:03 EDT CENTER LABORATORY SERVICES MCHC 32.7 32.1 - 09/07/2015 [facility] MEDICAL 35.9 7:03 EDT CENTER gm/dl LABORATORY SERVICES RDW-CV 14.7 (H) 11.7 - 09/07/2015 [facility] MEDICAL 14.6 % 7:03 EDT CENTER LABORATORY SERVICES RDW-SD 48.4 37.6 - 09/07/2015 [facility] MEDICAL 50.3 fl 7:03 EDT CENTER LABORATORY SERVICES PLT 130 (L) 141 - 377 09/07/2015 [facility] MEDICAL K/cmm 7:03 EDT CENTER LABORATORY SERVICES MPV 11.4 9.5 - 09/07/2015 [facility] MEDICAL 12.7 fl 7:03 EDT CENTER LABORATORY SERVICES Neutrophils 64.0 % 09/07/2015 [facility] MEDICAL 8:30 EDT CENTER LABORATORY SERVICES Bands 1.0 % 09/07/2015 [facility] MEDICAL 8:30 EDT CENTER LABORATORY SERVICES Lymphocytes 20.0 % 09/07/2015 [facility] MEDICAL 8:30 EDT CENTER LABORATORY SERVICES Monocytes 9.0 % 09/07/2015 [facility] MEDICAL 8:30 EDT CENTER LABORATORY SERVICES Eosinophils 2.0 % 09/07/2015 [facility] MEDICAL 8:30 EDT CENTER LABORATORY SERVICES Basophils 1.0 % 09/07/2015 [facility] MEDICAL 8:30 EDT CENTER LABORATORY SERVICES Metamyelocytes 2.0 % 09/07/2015 [facility] MEDICAL 8:30 EDT CENTER LABORATORY SERVICES Myelocytes 1.0 % 09/07/2015 [facility] MEDICAL 8:30 EDT CENTER LABORATORY SERVICES ABS Neutrophils 6.33 2.20 - 09/07/2015 [facility] MEDICAL 8.85 8:30 EDT CENTER K/cm LABORATORY SERVICES ABS Bands 0.10 K/cmm 09/07/2015 [facility] MEDICAL 8:30 EDT CENTER LABORATORY SERVICES ABS Lymphs 1.98 1.09 - 09/07/2015 [facility] MEDICAL 3.30 8:30 EDT CENTER K/[facility] LABORATORY SERVICES ABS Monocytes 0.89 (H) 0.1 - 0.8 09/07/2015 [facility] MEDICAL K/[facility] 8:30 EDT CENTER LABORATORY SERVICES ABS Eosinophils 0.20 0.03 - 09/07/2015 [facility] MEDICAL 0.61 8:30 EDT CENTER /[facility] LABORATORY SERVICES ABS Basophils 0.10 0.01 - 09/07/2015 [facility] MEDICAL 0.11 8:30 EDT CENTER K/[facility] LABORATORY SERVICES ABS Metamyelocytes 0.20 K/cmm 09/07/2015 [facility] MEDICA L 8:30 EDT CENTER LABORATORY SERVICES ABS Myelocytes 0.10 K/cmm 09/07/2015 [facility] MEDICAL 8:30 EDT CENTER LABORATORY SERVICES Type of Diff: Manual 09/07/2015 [facility] MEDICAL 8:30 EDT CENTER LABORATORY SERVICES Specimen Anatomical Collection Method Collection Time Receive d Time (Source) Location / / Volume Laterality Blood specimen BLOOD SPECIMEN / 09/07/2015 6:31 2015 6:54 (specimen) Unknown EDT EDT Dalia Delacruz MD PACKAGES & DNA PROBE ORDERAB LES Performing Organization Address City/State/ZIP Code Phon e Number [facility] LABORATORY [address] [place] [address] SERVICES TOTAL & DIRECT BILIRUBIN (09/06/2015 7:06 EDT) Analysis Performed At Patho logist Time Signature Conjugated 0.0 0.0 - 0.3 09/06/2015 [facility] MEDICAL Bilirubin mg/dl 7:59 EDT CENTER LABORATORY SERVICES Unconjugated 0.4 0.0 - 1.1 09/06/2015 [facility] MEDICAL Bilirubin mg/dl 7:59 T CENTER LABORATORY SERVICES Bilirubin, Total 1.1 <1.4 mg/dl 09/06/2015 [facility] MEDICAL 7:59 T CENTER LABORATORY SERVICES Specimen Anatomical Collection Method Collection Time Receive d Time (Source) Location / / Volume Laterality Blood specimen BLOOD SPECIMEN / 09/06/2015 7:06 2015 7:14 (specimen) Unknown EDT EDT Dalia Delacruz MD CHEMISTRY & BLOOD GAS ORDERA BLES Performing Organization Address City/State/ZIP Code Phon e Number [facility] [address] [place] [address] SERVICES (ABNORMAL) ALKALINE PHOSPHATASE (09/06/2015 7:06 EDT) Patholo gist Method Time Signature Total Alkaline 174 (H) 38 - 126 09/06/2015 [facility] MEDICAL Phosphatase U/L 7:59 T CENTER LABORATORY SERVICES Specimen Anatomical Collection Method Collection Time Receive d Time (Source) Location / / Volume Laterality Blood specimen BLOOD SPECIMEN / 09/06/2015 7:06 2015 7:14 (specimen) Unknown EDT EDT Dalia Delacruz MD CHEMISTRY & BLOOD GAS ORDERA BLES Performing Organization Address City/State/ZIP Code Phon e Number [facility] [address] [place] [phone] SERVICES PHOSPHORUS (09/06/2015 7:06 EDT) P athologist Signature Phosphorus 3.0 2.5 - 4.5 09/06/2015 [facility] MEDICAL mg/dl 7:59 T CENTER LABORATORY SERVICES Specimen Anatomical Collection Method Collection Time Receive d Time (Source) Location / / Volume Laterality Blood specimen BLOOD SPECIMEN / 09/06/2015 7:06 2015 7:14 (specimen) Unknown EDT EDT Dalia Delacruz MD CHEMISTRY & BLOOD GAS ORDERA BLES Performing Organization Address City/State/ZIP Code Phon e Number [facility] [address] [place] [address] SERVICES MAGNESIUM (09/06/2015 7:06 EDT) P athologist Signature Magnesium 2.1 1.7 - 2.8 09/06/2015 [facility] mg/dl 7:59 EDT CENTER LABORATORY SERVICES Specimen Anatomical Collection Method Collection Time Receive d Time (Source) Location / / Volume Laterality Blood specimen BLOOD SPECIMEN / 09/06/2015 7:06 2015 7:14 (specimen) Unknown EDT EDT Dlaia Delacruz MD CHEMISTRY & BLOOD GAS ORDERA BLES Performing Organization Address City/State/ZIP Code Phon e Number [facility] [address] [place] [address] SERVICES ALT (09/06/2015 7:06 EDT) P athologist Signature ALT 49 <53 U/L 09/06/2015 [facility] MEDICAL 7:59 EDT CENTER LABORATORY SERVICES Specimen Anatomical Collection Method Collection Time Receive d Time (Source) Location / / Volume Laterality Blood specimen BLOOD SPECIMEN / 09/06/2015 7:06 2015 7:14 (specimen) Unknown EDT EDT Dalia Delacruz MD CHEMISTRY & BLOOD GAS ORDERA BLES Performing Organization Address City/State/ZIP Code Phon e Number [facility] [address] [place] [phone] SERVICES AST (09/06/2015 7:06 EDT) P athologist Signature AST 44 15 - 46 U/L 09/06/2015 [facility] MEDICAL 7:59 EDT CENTER LABORATORY SERVICES Specimen Anatomical Collection Method Collection Time Receive d Time (Source) Location / / Volume Laterality Blood specimen BLOOD SPECIMEN / 09/06/2015 7:06 2015 7:14 (specimen) Unknown EDT EDT Dalia Delacruz MD CHEMISTRY & BLOOD GAS ORDERA BLES Performing Organization Address City/State/ZIP Code Phon e Number [facility] [address] [place] [phone] SERVICES BUN (09/06/2015 7:06 EDT) P athologist Signature BUN 12 10 - 26 09/06/2015 [facility] mg/dl 7:59 EDT CENTER LABORATORY SERVICES Specimen Anatomical Collection Method Collection Time Receive d Time (Source) Location / / Volume Laterality Blood specimen BLOOD SPECIMEN / 09/06/2015 7:06 2015 7:14 (specimen) Unknown EDT EDT Dalia Delacruz MD CHEMISTRY & BLOOD GAS ORDERA BLES Performing Organization Address City/State/ZIP Code Phon e Number [facility] [address] [place] [phone] SERVICES CREATININE (09/06/2015 7:06 EDT) athologist Signature Creatinine 0.63 0.52 - 09/06/2015 [facility] MEDICAL 1.04 mg/dl 7:59 EDT CENTER LABORATORY SERVICES GFR, Calculated 90 >60 09/06/2015 [facility] MEDICAL ml/min/1.7 7:59 EDT CENTER 3m2 LABORATORY SERVICES Comment: eGFR calculated using CKD-EPI equation f or non Americans. Multiply eGFR by 1.16 for Americans. Specimen Anatomical Collection Method Collection Time Receive d Time (Source) Location / / Volume Laterality Blood specimen BLOOD SPECIMEN / 09/06/2015 7:06 2015 7:14 (specimen) Unknown EDT EDT Dalia Delacruz MD CHEMISTRY & BLOOD GAS ORDERA BLES Performing Organization Address City/[facility]/ZIP Code Phon e Number [facility] [address] [place] [phone] SERVICES CALCIUM, IONIZED (09/06/2015 7:06 EDT) athologist Signature Calcium, 1.18 1.12 - 09/06/2015 [facility] MEDICAL Ionized 1.32 7:28 EDT CENTER mmol/L LABORATORY SERVICES Specimen Anatomical Collection Method Collection Time Receive d Time (Source) Location / / Volume Laterality Blood specimen BLOOD SPECIMEN / 09/06/2015 7:06 2015 7:14 (specimen) Unknown EDT EDT Dalia Delacruz MD CHEMISTRY & BLOOD GAS ORDERA BLES Performing Organization Address City/[facility]/ZIP Code Phon e Number [facility] [address] [place] [address] SERVICES ELECTROLYTES (09/06/2015 7:06 EDT) athologist Signature Sodium 140 136 - 145 09/06/2015 [facility] MEDICAL mEq/L 7:59 EDT CENTER LABORATORY SERVICES Potassium 4.0 3.5 - 5.0 09/06/2015 [facility] MEDICAL mEq/L 7:59 EDT CENTER LABORATORY SERVICES Chloride 103 96 - 110 09/06/2015 [facility] mEq/L 7:59 EDT CENTER LABORATORY SERVICES CO2 26 24 - 32 09/06/2015 [facility] MEDICAL mEq/L 7:59 EDT CENTER LABORATORY SERVICES Specimen Anatomical Collection Method Collection Time Receive d Time (Source) Location / / Volume Laterality Blood specimen BLOOD SPECIMEN / 09/06/2015 7:06 2015 7:14 (specimen) Unknown EDT EDT Dalia Delacruz MD CHEMISTRY & BLOOD GAS ORDERA BLES Performing Organization Address City/State/ZIP Code Phon e Number [facility] [address] [place] [address] SERVICES (ABNORMAL) HEMAGRAM AND DIFFERENTIAL (09/06/2015 7:06 EDT) [facility] Method Time Signature WBC 12.99 (H) 4.0 - 09/06/2015 [facility] 12.4 7:30 EDT CENTER K/cmm LABORATORY SERVICES RBC 3.74 (L) 3.86 - 09/06/2015 [facility] 5.04 7:30 EDT CENTER M/[facility] LABORATORY SERVICES Hemoglobin 11.0 (L) 11.6 - 09/06/2015 [facility] MEDICAL 15.2 7:30 EDT CENTER gm/dl LABORATORY SERVICES HCT 33.8 (L) 34.9 - 09/06/2015 [facility] 44.4 % 7:30 EDT CENTER LABORATORY SERVICES MCV 90 81 - 98 09/06/2015 [facility] fl 7:30 EDT CENTER LABORATORY SERVICES MCH 29.4 26.7 - 09/06/2015 [facility] MEDICAL 33.3 pg 7:30 EDT CENTER LABORATORY SERVICES MCHC 32.5 32.1 - 09/06/2015 [facility] MEDICAL 35.9 7:30 EDT CENTER gm/dl LABORATORY SERVICES RDW-CV 14.8 (H) 11.7 - 09/06/2015 [facility] 14.6 % 7:30 EDT CENTER LABORATORY SERVICES RDW-SD 49.1 37.6 - 09/06/2015 [facility] 50.3 fl 7:30 EDT CENTER LABORATORY SERVICES PLT 110 (L) 141 - 377 09/06/2015 [facility] K/cmm 7:30 EDT CENTER LABORATORY SERVICES MPV 10.8 9.5 - 09/06/2015 [facility] MEDICAL 12.7 fl 7:30 EDT CENTER LABORATORY SERVICES Neutrophils 80.0 % 09/06/2015 [facility] MEDICAL 9:46 EDT CENTER LABORATORY SERVICES Bands 1.0 % 09/06/2015 [facility] MEDICAL 9:46 EDT CENTER LABORATORY SERVICES Lymphocytes 14.0 % 09/06/2015 [facility] MEDICAL 9:46 EDT CENTER LABORATORY SERVICES Monocytes 1.0 % 09/06/2015 [facility] MEDICAL 9:46 EDT CENTER LABORATORY SERVICES Eosinophils 4.0 % 09/06/2015 [facility] MEDICAL 9:46 EDT CENTER LABORATORY SERVICES ABS Neutrophils 10.39 (H) 2.20 - 09/06/2015 [facility] MEDICAL 8.85 9:46 EDT CENTER K/cmm LABORATORY SERVICES ABS Bands 0.13 K/cmm 09/06/2015 [facility] MEDICAL 9:46 EDT CENTER LABORATORY SERVICES ABS Lymphs 1.82 1.09 - 09/06/2015 [facility] MEDICAL 3.30 9:46 EDT CENTER K/cmm LABORATORY SERVICES ABS Monocytes 0.13 0.1 - 0.8 09/06/2015 [facility] MEDICAL K/cmm 9:46 EDT CENTER LABORATORY SERVICES ABS Eosinophils 0.52 0.03 - 09/06/2015 [facility] MEDICAL 0.61 9:46 EDT CENTER K/cmm LABORATORY SERVICES Toxic Granulation Present 09/06/2015 [facility] MEDICAL 9:46 EDT CENTER LABORATORY SERVICES Vacuolization Present 09/06/2015 [facility] MEDICAL 9:46 EDT CENTER LABORATORY SERVICES Type of Diff: Manual 09/06/2015 [facility] MEDICAL 9:46 EDT CENTER LABORATORY SERVICES Specimen Anatomical Collection Method Collection Time Receive d Time (Source) Location / / Volume Laterality Blood specimen BLOOD SPECIMEN / 09/06/2015 7:06 2015 7:14 (specimen) Unknown EDT EDT Dalia Delacruz MD PACKAGES & DNA PROBE ORDERAB LES Performing Organization Address City/State/ZIP Code Phon e Number [facility] LABORATORY [address] [place] [address] SERVICES ECHOCARDIOGRAM LIMITED (09/05/2015 12:02 EDT) Anatomical Region Laterality Modality Other Specimen (Source) Anatomical Collection Method Collection Time Re ceived Time Location / / Volume Laterality 09/05/2015 12:02 EDT Narrative 09/05/2015 12:59 EDT *Interpreting Group:* *[facility]* [address] [place] [address] ?? Date of study: 09/05/2015 ?? Transthoracic [...] septum: Echo contrast study sh owed no xpium-lr-oixl atrial level ?? shunt, at baseline or with provocati on. 4. Pulmonary arteries: Pulmonary systoli c pressure was mildly increased, in the ?? range of 35mm Hg to 40mm Hg. *PATIENT PRESENTATION* Height: ? () S/D Pressure: Weight: ? () BSA: Test start time: ??11:34 AM. Test stop time: ??11:42 AM. REFERRING ?Fabiano Aranda GARDEN LABOURER ??Jarrett Ortiz [facility] ADMITTING ?Neida Fisher ATTENDING ?Neida Fisher ORDERING ? George Vail PERFORMING ?? [facility], *PROCEDURE DATA* Procedure information: ??This study was interpreted by [facility]. Pertinent imag es and digital data are archived for permanent storage and are available for subsequent review. ??Study status: Routine. Transthoracic echocardiography. ??M-mode, limited 2D, limited spectral Doppler, and color Doppler. A Transthora cic Echocardiogram was performed. Scanning was performed from the paraster nal, apical, and subcostal acoustic windows. Images were obtained using a [employer] [id number] 5 cardiac ultrasound machine. Image quality was adequate. 20ml of Intr avenous contrast (agitated saline) was administered by MARTIN Allen RDCS to enhance delineation of left ventricular endocard ial borders. Prior to administration at least two (2) contiguous segments of the left ventricular border were not visualized. ??Study completion: ??The pa arely tolerated the procedure well. There were no complications. *INDICATIONS AND HISTORY* Indications: ?? Septicemia, Unspecified A41.9. *CARDIAC ANATOMY* Left ventricle: ??The cavity size was no rmal. Systolic function was normal. The estimated ejection fraction was 60-65%. Atrial septum: ?? Echo contrast study sh owed no weqmc-vq-arul atrial level shunt, at baseline or with [...] 12:59 Procedure Note Jeremy Wade MD - 09/05/2015Forma tting of this note might be different from the original. *Interpreting Group:* *[facility]* [address] [place] [address] Date of study: 09/05/2015 Transthoracic Echocardiography M-mode, limited 2D, limited spectral Dop pler, and color Doppler *STUDY CONCLUSIONS* Summary: 1. Left ventricle: The cavity size was n ormal. Systolic function was normal. The estimated ejection fraction was 60-65%. 2. Right ventricle: The cavity size was mildly to moderately dilated. Systolic function was normal. 3. Atrial septum: Echo contrast study sh owed no bcvrp-aw-hglp atrial level shunt, at baseline or with provocation. 4. Pulmonary arteries: Pulmonary systoli c pressure was mildly increased, in the range of 35mm Hg to 40mm Hg. *PATIENT PRESENTATION* Height: () S/D Pressure: Weight: () BSA: Test start time: 11:34 AM. Test stop time: 11:42 AM. REFERRING Fabiano Aranda GARDEN LABOURER Jarrett Ortiz RDCS ADMITTING Neida Fisher ATTENDING Neida Fisher ORDERING George Vail PERFORMING [facility], *PROCEDURE DATA* Procedure information: This study was in terpreted by [facility]. Pertinent imag es and digital data are archived for permanent storage and are available for subsequent review. Study status: Routine. Transthoracic echocardiography. M-mode, limited 2D, limited spectral Doppler, and color Doppler. A Transthora cic Echocardiogram was performed. Scanning was performed from the paraster nal, apical, and subcostal acoustic windows. Images were obtained using a [employer] IE33 5 cardiac ultrasound machine. Image quality [...] septum: Echo contrast study showe d no sgnxu-hb-vxlx atrial level shunt, at baseline or with [...] signed by Jeremy Wade MD 09/05/2015 12:59 George Vail MD CARDIAC ECHO ORDERABLES LIPID PROFILE (INCLUDES CHOLESTEROL, TRIGLYCERIDES, HDL, LDL) (09/05/2015 3:06 EDT) P athologist Signature Cholesterol 138 mg/dl 09/05/2015 [facility] 4:08 [facility] LABORATORY SERVICES Comment: Desirable:<200 Borderline High:200-239 High:>so=422 Triglycerides 180 mg/dl 09/05/2015 4:08 EDT [facility] [place] LABORATORY SERVICES Comment: Normal:<150 Borderline High:150-199 High:200-499 Very High:>dg=872 HDL 35 mg/dl 09/05/2015 4:08 [facility] LABORATORY SERVICES Comment: Low:<40 Normal:40-60 Desirable: >60 LDL, Calculated 67 mg/dl 09/05/2015 4:08 [facility] LABORATORY SERVICES Comment: Optimal:<100 Near Optimal:100-129 Borderline High:130-159 High:160-189 Very High:>ta=226 Chol/HDL Ratio 3.9 09/05/2015 4:08 EDT [facility] LABORATORY SERVICES Fasting? Unknown 09/05/2015 3:34 EDT [facility] LABORATORY SERVICES Non HDL Cholesterol 103 mg/dl 09/05/2015 4:08 EDT [facility] LABORATORY SERVICES Comment: Desirable:<130 Borderline:130-159 High: 160-189 Very High: >po=201 Specimen Anatomical Collection Method Collection Time Receive d Time (Source) Location / / Volume Laterality Blood specimen BLOOD SPECIMEN / 09/05/2015 3:06 2015 3:34 (specimen) Unknown EDT EDT Kofi Thornton MD CHEMISTRY & BLOOD GAS ORDERA BLES Performing Organization Address City/State/ZIP Code Phon e Number [facility] LABORATORY [address] [place] [address] SERVICES TOTAL & DIRECT BILIRUBIN (09/05/2015 3:06 EDT) Analysis Performed At Patho logist Time Signature Conjugated 0.0 0.0 - 0.3 09/05/2015 [facility] MEDICAL Bilirubin mg/dl 4:08 T CENTER LABORATORY SERVICES Unconjugated 0.4 0.0 - 1.1 09/05/2015 [facility] MEDICAL Bilirubin mg/dl 4:08 T CENTER LABORATORY SERVICES Bilirubin, Total 1.0 <1.4 mg/dl 09/05/2015 [facility] MEDICAL 4:08 T CENTER LABORATORY SERVICES Specimen Anatomical Collection Method Collection Time Receive d Time (Source) Location / / Volume Laterality Blood specimen BLOOD SPECIMEN / 09/05/2015 3:06 2015 3:34 (specimen) Unknown EDT EDT Dalia Delacruz MD CHEMISTRY & BLOOD GAS ORDERA BLES Performing Organization Address City/State/ZIP Code Phon e Number [facility] LABORATORY [address] [place] [phone] SERVICES ALKALINE PHOSPHATASE (09/05/2015 3:06 EDT) P athologist Signature Total Alkaline 94 38 - 126 09/05/2015 [facility] MEDICAL Phosphatase U/L 4:08 EDT CENTER LABORATORY SERVICES Specimen Anatomical Collection Method Collection Time Receive d Time (Source) Location / / Volume Laterality Blood specimen BLOOD SPECIMEN / 09/05/2015 3:06 2015 3:34 (specimen) Unknown EDT EDT Dalia Delacruz MD CHEMISTRY & BLOOD GAS ORDERA BLES Performing Organization Address City/[facility]/ZIP Code Phon e Number [facility] LABORATORY [address] [place] [address] SERVICES (ABNORMAL) PHOSPHORUS (09/05/2015 3:06 EDT) athologist Signature Phosphorus 2.1 (L) 2.5 - 4.5 09/05/2015 [facility] mg/dl 4:08 EDT CENTER LABORATORY SERVICES Specimen Anatomical Collection Method Collection Time Receive d Time (Source) Location / / Volume Laterality Blood specimen BLOOD SPECIMEN / 09/05/2015 3:06 2015 3:34 (specimen) Unknown EDT EDT Dalia Delacruz MD CHEMISTRY & BLOOD GAS ORDERA BLES Performing Organization Address [facility]/ZIP Code Phon e Number [facility] LABORAT[facility] [address] [place] [address] SERVICES MAGNESIUM (09/05/2015 3:06 EDT) athologist Signature Magnesium 2.0 1.7 - 2.8 09/05/2015 [facility] mg/dl 4:08 EDT CENTER LABORATORY SERVICES Specimen Anatomical Collection Method Collection Time Receive d Time (Source) Location / / Volume Laterality Blood specimen BLOOD SPECIMEN / 09/05/2015 3:06 2015 3:34 (specimen) Unknown EDT EDT Dalia Delacruz MD CHEMISTRY & BLOOD GAS ORDERA BLES Performing Organization Address City/[facility]/ZIP Code Phon e Number [facility] LABOR[facility] [address] [place] [address] SERVICES (ABNORMAL) ALT (09/05/2015 3:06 EDT) athologist Signature ALT 54 (H) <53 U/L 09/05/2015 [facility] 4:08 EDT CENTER LABORATORY SERVICES Specimen Anatomical Collection Method Collection Time Receive d Time (Source) Location / / Volume Laterality Blood specimen BLOOD SPECIMEN / 09/05/2015 3:06 2015 3:34 (specimen) Unknown EDT EDT Dalia Delacruz MD CHEMISTRY & BLOOD GAS ORDERA BLES Performing Organization Address City/State/ZIP Code Phon e Number [facility] LABORATORY [address] [place] [address] SERVICES (ABNORMAL) AST (09/05/2015 3:06 EDT) athologist Signature AST 52 (H) 15 - 46 U/L 09/05/2015 [facility] MEDICAL 4:08 EDT CENTER LABORATORY SERVICES Specimen Anatomical Collection Method Collection Time Receive d Time (Source) Location / / Volume Laterality Blood specimen BLOOD SPECIMEN / 09/05/2015 3:06 2015 3:34 (specimen) Unknown EDT EDT Dalia Delacruz MD CHEMISTRY & BLOOD GAS ORDERA BLES Performing Organization Address City/State/ZIP Code Phon e Number [facility] LABORAT[facility] [address] [place] [address] SERVICES BUN (09/05/2015 3:06 EDT) athologist Signature BUN 15 10 - 26 09/05/2015 [facility] MEDICAL mg/dl 4:08 EDT CENTER LABORATORY SERVICES Specimen Anatomical Collection Method Collection Time Receive d Time (Source) Location / / Volume Laterality Blood specimen BLOOD SPECIMEN / 09/05/2015 3:06 2015 3:34 (specimen) Unknown EDT EDT Dalia Delacruz MD CHEMISTRY & BLOOD GAS ORDERA BLES Performing Organization Address City/[facility]/ZIP Code Phon e Number [facility] LABORATORY [address] [place] [phone] SERVICES CREATININE (09/05/2015 3:06 EDT) athologist Signature Creatinine 0.79 0.52 - 09/05/2015 [facility] MEDICAL 1.04 mg/dl 4:08 EDT CENTER LABORATORY SERVICES GFR, Calculated 75 >60 09/05/2015 [facility] MEDICAL ml/min/1.7 4:08 EDT CENTER 3m2 LABORATORY SERVICES Comment: eGFR calculated using CKD-EPI equation f or non Americans. Multiply eGFR by 1.16 for Americans. Specimen Anatomical Collection Method Collection Time Receive d Time (Source) Location / / Volume Laterality Blood specimen BLOOD SPECIMEN / 09/05/2015 3:06 2015 3:34 (specimen) Unknown EDT EDT Dalia Delacruz MD CHEMISTRY & BLOOD GAS ORDERA BLES Performing Organization Address City/State/ZIP Code Phon e Number [facility] LABORATORY [address] [place] [address] SERVICES (ABNORMAL) CALCIUM, IONIZED (09/05/2015 3:06 EDT) Analysis Performed At Patho logist Time Signature Calcium, 1.08 (L) 1.12 - 09/05/2015 [facility] MEDICAL Ionized 1.32 3:46 EDT CENTER mmol/L LABORATORY SERVICES Specimen Anatomical Collection Method Collection Time Receive d Time (Source) Location / / Volume Laterality Blood specimen BLOOD SPECIMEN / 09/05/2015 3:06 2015 3:34 (specimen) Unknown EDT EDT Dalia Delacruz MD CHEMISTRY & BLOOD GAS ORDERA BLES Performing Organization Address City/State/ZIP Code Phon e Number [facility]OR[facility] [address] [place] [address] SERVICES (ABNORMAL) ELECTROLYTES (09/05/2015 3:06 EDT) P athologist Signature Sodium 142 136 - 145 09/05/2015 [facility] MEDICAL mEq/L 4:08 EDT CENTER LABORATORY SERVICES Potassium 3.3 (L) 3.5 - 5.0 09/05/2015 [facility] mEq/L 4:08 EDT CENTER LABORATORY SERVICES Chloride 105 96 - 110 09/05/2015 [facility] MEDICAL mEq/L 4:08 EDT CENTER LABORATORY SERVICES CO2 26 24 - 32 09/05/2015 [facility] mEq/L 4:08 EDT CENTER LABORATORY SERVICES Specimen Anatomical Collection Method Collection Time Receive d Time (Source) Location / / Volume Laterality Blood specimen BLOOD SPECIMEN / 09/05/2015 3:06 2015 3:34 (specimen) Unknown EDT EDT Dalia Delacruz MD CHEMISTRY & BLOOD GAS ORDERA BLES Performing Organization Address City/State/ZIP Code Phon e Number [facility] LABORAT[facility] [address] [place] [address] SERVICES (ABNORMAL) HEMAGRAM AND DIFFERENTIAL (09/05/2015 3:06 EDT) Patholo gist Method Time Signature WBC 17.81 (H) 4.0 - 09/05/2015 [facility] 12.4 4:26 EDT CENTER K/cmm LABORATORY SERVICES RBC 3.42 (L) 3.86 - 09/05/2015 [facility] 5.04 4:04 EDT CENTER M/cmm LABORATORY SERVICES Hemoglobin 10.2 (L) 11.6 - 09/05/2015 [facility] MEDICAL 15.2 4:04 EDT CENTER gm/dl LABORATORY SERVICES HCT 31.1 (L) 34.9 - 09/05/2015 [facility] MEDICAL 44.4 % 4:04 EDT CENTER LABORATORY SERVICES MCV 91 81 - 98 09/05/2015 [facility] MEDICAL fl 4:04 EDT CENTER LABORATORY SERVICES MCH 29.8 26.7 - 09/05/2015 [facility] MEDICAL 33.3 pg 4:04 EDT CENTER LABORATORY SERVICES MCHC 32.8 32.1 - 09/05/2015 [facility] MEDICAL 35.9 4:04 EDT CENTER gm/dl LABORATORY SERVICES RDW-CV 15.0 (H) 11.7 - 09/05/2015 [facility] MEDICAL 14.6 % 4:04 EDT CENTER LABORATORY SERVICES RDW-SD 50.4 (H) 37.6 - 09/05/2015 [facility] MEDICAL 50.3 fl 4:04 EDT CENTER LABORATORY SERVICES PLT 96 (L) 141 - 377 09/05/2015 [facility] MEDICAL K/[facility] 4:26 EDT CENTER LABORATORY SERVICES MPV 10.8 9.5 - 09/05/2015 [facility] MEDICAL 12.7 fl 4:26 EDT CENTER LABORATORY SERVICES Neutrophils 75.0 % 09/05/2015 [facility] MEDICAL 4:26 EDT CENTER LABORATORY SERVICES Bands 13.0 % 09/05/2015 [facility] MEDICAL 4:26 EDT CENTER LABORATORY SERVICES Lymphocytes 9.0 % 09/05/2015 [facility] MEDICAL 4:26 EDT CENTER LABORATORY SERVICES Monocytes 2.0 % 09/05/2015 [facility] MEDICAL 4:26 EDT CENTER LABORATORY SERVICES Eosinophils 1.0 % 09/05/2015 [facility] MEDICAL 4:26 EDT CENTER LABORATORY SERVICES ABS Neutrophils 13.35 (H) 2.20 - 09/05/2015 [facility] MEDICAL 8.85 4:26 EDT CENTER K/cmm LABORATORY SERVICES ABS Bands 2.32 K/cmm 09/05/2015 [facility] MEDICAL 4:26 EDT CENTER LABORATORY SERVICES ABS Lymphs 1.60 1.09 - 09/05/2015 [facility] MEDICAL 3.30 4:26 EDT CENTER K/cmm LABORATORY SERVICES ABS Monocytes 0.36 0.1 - 0.8 09/05/2015 [facility] MEDICAL K/cmm 4:26 EDT CENTER LABORATORY SERVICES ABS Eosinophils 0.18 0.03 - 09/05/2015 [facility] MEDICAL 0.61 4:26 EDT CENTER K/cmm LABORATORY SERVICES Toxic Present 09/05/2015 [facility] MEDICAL Granulation 4:26 ED CENTER LABORATORY SERVICES Type of Diff: Manual 09/05/2015 [facility] MEDICAL 4:26 EDT CENTER LABORATORY SERVICES Specimen Anatomical Collection Method Collection Time Receive d Time (Source) Location / / Volume Laterality Blood specimen BLOOD SPECIMEN / 09/05/2015 3:06 2015 3:34 (specimen) Unknown EDT EDT Dalia Delacruz MD PACKAGES & DNA PROBE ORDERAB LES Performing Organization Address City/State/ZIP Code Phon e Number [facility] LABORAT[facility] [address] [place] [address] SERVICES ECHOCARDIOGRAM (09/04/2015 10:49 EDT) Anatomical Region Laterality Modality Other Specimen (Source) Anatomical Collection Method Collection Time Re ceived Time Location / / Volume Laterality 09/04/2015 10:49 EDT Narrative 09/04/2015 11:37 EDT *Interpreting Group:* *[facility]* [address] [id number] ?? Date of study: 09/04/2015 ?? Transthoracic [...] Aranda ADMITTING ?Neida Fisher ATTENDING ?Neida Fisher GARDEN LABOURER ??Rula Cochran PERFORMING ?? [facility], ORDERING ? Rony Leach *PROCEDURE DATA* Procedure information: ??This study was interpreted by [facility]. Pertinent imag es and digital data are archived for permanent storage and are available for subsequent review. ??Study status: Routine. Transthoracic echocardiography. ??M-mode, complete 2D, complete spectral Doppler, and color Doppler. A Transthora cic Echocardiogram was performed. Scanning was performed from the paraster nal, apical, subcostal, and suprasternal notch acoustic windows. Images were obta ined using an [employer] 9 cardiac ultrasound machine. Image quality was [...] 11:37 Procedure Note Lopez Munoz MD - 09/04/2015Format ting of this note might be different from the original. *Interpreting Group:* *[facility]* [address] [place] [address] Date of study: 09/04/2015 Transthoracic Echocardiography M-mode, [...] Aranda ADMITTING Neida Fisher ATTENDING Neida Fisher GARDEN LABOURER Rula Cochran PERFORMING [facility], [facility] ORDERING Rony Leach *PROCEDURE DATA* Procedure information: This study was in terpreted by [facility]. Pertinent imag [...] Electronically signed by Lopez Munoz 09/04/2015 11:37 Rony Leach MD CARDIAC ECHO ORDERABLES (ABNORMAL) TROPONIN I (09/04/2015 3:18 EDT) Patholo gist Method Time Signature Troponin I 0.289 (H) <0.034 09/04/2015 [facility] MEDICAL (ng/mL) ng/ml 4:32 EDT CENTER LABORATORY SERVICES Specimen Anatomical Collection Method Collection Time Receive d Time (Source) Location / / Volume Laterality Blood specimen BLOOD SPECIMEN / 09/04/2015 3:18 2015 3:34 (specimen) Unknown EDT EDT Kofi Thornton MD CHEMISTRY & BLOOD GAS ORDERA BLES Performing Organization Address City/State/ZIP Code Phon e Number [facility] LABORAT[facility] [address] [place] [address] SERVICES TOTAL & DIRECT BILIRUBIN (09/04/2015 3:18 EDT) Analysis Performed At Patho logist Time Signature Conjugated 0.0 0.0 - 0.3 09/04/2015 [facility] MEDICAL Bilirubin mg/dl 4:11 T CENTER LABORATORY SERVICES Unconjugated 0.3 0.0 - 1.1 09/04/2015 [facility] MEDICAL Bilirubin mg/dl 4:11 T CENTER LABORATORY SERVICES Bilirubin, Total 1.1 <1.4 mg/dl 09/04/2015 [facility] MEDICAL 4:11 T CENTER LABORATORY SERVICES Specimen Anatomical Collection Method Collection Time Receive d Time (Source) Location / / Volume Laterality Blood specimen BLOOD SPECIMEN / 09/04/2015 3:18 2015 3:34 (specimen) Unknown EDT EDT Dalia Delacruz MD CHEMISTRY & BLOOD GAS ORDERA BLES Performing Organization Address City/State/ZIP Code Phon e Number [facility] [address] [place] [address] SERVICES ALKALINE PHOSPHATASE (09/04/2015 3:18 EDT) P athologist Signature Total Alkaline 85 38 - 126 09/04/2015 [facility] MEDICAL Phosphatase U/L 4:11 T CENTER LABORATORY SERVICES Specimen Anatomical Collection Method Collection Time Receive d Time (Source) Location / / Volume Laterality Blood specimen BLOOD SPECIMEN / 09/04/2015 3:18 2015 3:34 (specimen) Unknown EDT EDT Dalia Delacruz MD CHEMISTRY & BLOOD GAS ORDERA BLES Performing Organization Address City/[facility]/ZIP Code Phon e Number [facility] [address] [place] [address] SERVICES PHOSPHORUS (09/04/2015 3:18 EDT) P athologist Signature Phosphorus 2.5 2.5 - 4.5 09/04/2015 [facility] mg/dl 4:11 EDT CENTER LABORATORY SERVICES Specimen Anatomical Collection Method Collection Time Receive d Time (Source) Location / / Volume Laterality Blood specimen BLOOD SPECIMEN / 09/04/2015 3:18 2015 3:34 (specimen) Unknown EDT EDT Dalia Delacruz MD CHEMISTRY & BLOOD GAS ORDERA BLES Performing Organization Address [facility]/ZIP Code Phon e Number [facility] [address] [place] [address] SERVICES MAGNESIUM (09/04/2015 3:18 EDT) athologist Signature Magnesium 1.7 1.7 - 2.8 09/04/2015 [facility] mg/dl 4:11 EDT CENTER LABORATORY SERVICES Specimen Anatomical Collection Method Collection Time Receive d Time (Source) Location / / Volume Laterality Blood specimen BLOOD SPECIMEN / 09/04/2015 3:18 2015 3:34 (specimen) Unknown EDT EDT Dalia Delacruz MD CHEMISTRY & BLOOD GAS ORDERA BLES Performing Organization Address City/[facility]/ZIP Code Phon e Number [facility] [address] [place] [address] SERVICES (ABNORMAL) ALT (09/04/2015 3:18 EDT) athologist Signature ALT 68 (H) <53 U/L 09/04/2015 [facility] 4:11 EDT CENTER LABORATORY SERVICES Specimen Anatomical Collection Method Collection Time Receive d Time (Source) Location / / Volume Laterality Blood specimen BLOOD SPECIMEN / 09/04/2015 3:18 2015 3:34 (specimen) Unknown EDT EDT Dalia Delacruz MD CHEMISTRY & BLOOD GAS ORDERA BLES Performing Organization Address City/State/ZIP Code Phon e Number [facility] [address] [place] [address] SERVICES (ABNORMAL) AST (09/04/2015 3:18 EDT) athologist Signature AST 73 (H) 15 - 46 U/L 09/04/2015 [facility] MEDICAL 4:11 EDT CENTER LABORATORY SERVICES Specimen Anatomical Collection Method Collection Time Receive d Time (Source) Location / / Volume Laterality Blood specimen BLOOD SPECIMEN / 09/04/2015 3:18 2015 3:34 (specimen) Unknown EDT EDT Dalia Delacruz MD CHEMISTRY & BLOOD GAS ORDERA BLES Performing Organization Address City/State/ZIP Code Phon e Number [facility] [address] [place] [address] SERVICES BUN (09/04/2015 3:18 EDT) athologist Signature BUN 16 10 - 26 09/04/2015 [facility] MEDICAL mg/dl 4:11 EDT CENTER LABORATORY SERVICES Specimen Anatomical Collection Method Collection Time Receive d Time (Source) Location / / Volume Laterality Blood specimen BLOOD SPECIMEN / 09/04/2015 3:18 2015 3:34 (specimen) Unknown EDT EDT Dalia Delacruz MD CHEMISTRY & BLOOD GAS ORDERA BLES Performing Organization Address City/[facility]/ZIP Code Phon e Number [facility] [address] [place] [phone] SERVICES CREATININE (09/04/2015 3:18 EDT) athologist Signature Creatinine 0.82 0.52 - 09/04/2015 [facility] MEDICAL 1.04 mg/dl 4:11 EDT CENTER LABORATORY SERVICES GFR, Calculated 72 >60 09/04/2015 [facility] MEDICAL ml/min/1.7 4:11 EDT CENTER 3m2 LABORATORY SERVICES Comment: eGFR calculated using CKD-EPI equation f or non Americans. Multiply eGFR by 1.16 for Americans. Specimen Anatomical Collection Method Collection Time Receive d Time (Source) Location / / Volume Laterality Blood specimen BLOOD SPECIMEN / 09/04/2015 3:18 2015 3:34 (specimen) Unknown EDT EDT Dalia Delacruz MD CHEMISTRY & BLOOD GAS ORDERA BLES Performing Organization Address City/State/ZIP Code Phon e Number [facility] [address] [place] [address] SERVICES (ABNORMAL) CALCIUM, IONIZED (09/04/2015 3:18 EDT) Analysis Performed At Patho logist Time Signature Calcium, 0.96 (L) 1.12 - 09/04/2015 [facility] MEDICAL Ionized 1.32 3:47 EDT CENTER mmol/L LABORATORY SERVICES Specimen Anatomical Collection Method Collection Time Receive d Time (Source) Location / / Volume Laterality Blood specimen BLOOD SPECIMEN / 09/04/2015 3:18 2015 3:34 (specimen) Unknown EDT EDT Dalia Delacruz MD CHEMISTRY & BLOOD GAS ORDERA BLES Performing Organization Address City/State/ZIP Code Phon e Number [facility] [address] [place] [address] SERVICES (ABNORMAL) ELECTROLYTES (09/04/2015 3:18 EDT) P athologist Signature Sodium 142 136 - 145 09/04/2015 [facility] MEDICAL mEq/L 4:11 EDT CENTER LABORATORY SERVICES Potassium 3.8 3.5 - 5.0 09/04/2015 [facility] MEDICAL mEq/L 4:11 EDT CENTER LABORATORY SERVICES Chloride 111 (H) 96 - 110 09/04/2015 [facility] MEDICAL mEq/L 4:11 EDT CENTER LABORATORY SERVICES CO2 21 (L) 24 - 32 09/04/2015 [facility] MEDICAL mEq/L 4:11 EDT CENTER LABORATORY SERVICES Specimen Anatomical Collection Method Collection Time Receive d Time (Source) Location / / Volume Laterality Blood specimen BLOOD SPECIMEN / 09/04/2015 3:18 2015 3:34 (specimen) Unknown EDT EDT Dalia Delacruz MD CHEMISTRY & BLOOD GAS ORDERA BLES Performing Organization Address City/State/ZIP Code Phon e Number [facility] [address] [place] [address] SERVICES (ABNORMAL) HEMAGRAM AND DIFFERENTIAL (09/04/2015 3:18 EDT) Patholo gist Method Time Signature WBC 23.58 (H) 4.0 - 09/04/2015 [facility] 12.4 4:10 EDT CENTER K/cmm LABORATORY SERVICES RBC 3.47 (L) 3.86 - 09/04/2015 [facility] MEDICAL 5.04 3:52 EDT CENTER M/cm LABORATORY SERVICES Hemoglobin 10.4 (L) 11.6 - 09/04/2015 [facility] MEDICAL 15.2 3:52 EDT CENTER gm/dl LABORATORY SERVICES HCT 31.8 (L) 34.9 - 09/04/2015 [facility] MEDICAL 44.4 % 3:52 EDT CENTER LABORATORY SERVICES MCV 92 81 - 98 09/04/2015 [facility] MEDICAL fl 3:52 EDT CENTER LABORATORY SERVICES MCH 30.0 26.7 - 09/04/2015 [facility] MEDICAL 33.3 pg 3:52 EDT CENTER LABORATORY SERVICES MCHC 32.7 32.1 - 09/04/2015 [facility] MEDICAL 35.9 3:52 EDT CENTER gm/dl LABORATORY SERVICES RDW-CV 15.1 (H) 11.7 - 09/04/2015 [facility] 14.6 % 3:52 EDT CENTER LABORATORY SERVICES RDW-SD 50.3 37.6 - 09/04/2015 [facility] 50.3 fl 3:52 EDT CENTER LABORATORY SERVICES PLT 110 (L) 141 - 377 09/04/2015 [facility] 4:10 EDT CENTER LABORATORY SERVICES MPV 10.3 9.5 - 09/04/2015 [facility] MEDICAL 12.7 fl 4:10 EDT CENTER LABORATORY SERVICES Neutrophils 79.0 % 09/04/2015 [facility] MEDICAL 4:10 EDT CENTER LABORATORY SERVICES Bands 18.0 % 09/04/2015 [facility] MEDICAL 4:10 EDT CENTER LABORATORY SERVICES Monocytes 3.0 % 09/04/2015 [facility] MEDICAL 4:10 EDT CENTER LABORATORY SERVICES ABS Neutrophils 18.63 (H) 2.20 - 09/04/2015 [facility] MEDICAL 8.85 4:10 EDT CENTER /[facility] LABORATORY SERVICES ABS Bands 4.24 K/cmm 09/04/2015 [facility] MEDICAL 4:10 EDT CENTER LABORATORY SERVICES ABS Monocytes 0.71 0.1 - 0.8 09/04/2015 [facility] MEDICAL /[facility] 4:10 EDT CENTER LABORATORY SERVICES Toxic Present 09/04/2015 [facility] MEDICAL Granulation 4:10 EDT CENTER LABORATORY SERVICES Type of Diff: Manual 09/04/2015 [facility] MEDICAL 4:10 EDT CENTER LABORATORY SERVICES Specimen Anatomical Collection Method Collection Time Receive d Time (Source) Location / / Volume Laterality Blood specimen BLOOD SPECIMEN / 09/04/2015 3:18 2015 3:34 (specimen) Unknown EDT EDT Dalia Delacruz MD PACKAGES & DNA PROBE ORDERAB LES Performing Organization Address City/State/ZIP Code Phon e Number [facility] [address] [place] [address] SERVICES (ABNORMAL) TROPONIN I (09/04/2015 1:42 EDT) Patholo gist Method Time Signature Troponin I 0.330 (H) <0.034 09/04/2015 [facility] (ng/mL) ng/ml 2:23 EDT CENTER LABORATORY SERVICES Specimen Anatomical Collection Method Collection Time Receive d Time (Source) Location / / Volume Laterality Blood specimen BLOOD SPECIMEN / 09/04/2015 1:42 2015 1:52 (specimen) Unknown EDT EDT Kofi Thornton MD CHEMISTRY & BLOOD GAS ORDERA BLES Performing Organization Address City/[facility]/ZIP Code Phon e Number [facility] [address] [place] [address] SERVICES LACTIC ACID (09/04/2015 1:42 EDT) P athologist Signature Lactic Acid 1.3 <2.0 mmol/L 09/04/2015 [facility] 2:05 EDT CENTER LABORATORY SERVICES Specimen Anatomical Collection Method Collection Time Receive d Time (Source) Location / / Volume Laterality Blood specimen BLOOD SPECIMEN / 09/04/2015 1:42 2015 1:52 (specimen) Unknown EDT EDT Samantha Go MD CHEMISTRY & BLOOD GAS ORDERA BLES Performing Organization Address City/State/ZIP Code Phon e Number [facility] [address] [place] [address] SERVICES EKG 12-LEAD (09/03/2015 21:06 EDT) Specimen (Source) Anatomical Collection Method Collection Time Re ceived Time Location / / Volume Laterality 09/03/2015 21:06 EDT Narrative [facility] EKG - 09/04/2015 11:5 5 EDT ? [facility] ? Test Date: ?2015-09-03 Pat Name: ? JOY WRIGHTANGEL ?Department: ?? COTE 3 ? Room: ? M326 Gender: ? F ?Trim Sawyer: ?? [id number] : ?1940 ? Requested By: ELISHA ALEMAN Order Number: [id number] ? Reading MD: ?? ANNELISE CAPELESS MD ? Measurements Intervals ?[place] ? Rate: ? 95 ? P: ?-7 IL: ? 202 ?QRS: ?-14 QRSD: ? 93 [...] findings in this report. Electronically Signed On 11:55:36 EDT by ANNELISE CASTILLO MD. Procedure Note Annelise Castillo MD - 09/04/2015Formattin g of this note might be different from the original. [facility] Cent r Test Date: 2015-09-03 Pat Name: JOY CUNHA Department: [place] [address] Room: [facility] [place] [place] Gender: F Trim Sawyer: [id number] : 1940 Requested By: ELISHA ALEMAN Order Number: [id number] Reading MD: Merrill CASTILLO MD Measurements Intervals [place] Rate: 95 P: -7 [place]: 202 QRS: -14 QRSD: 93 T: 31 [...] findings in this report. Electronically Signed On 11:55:36 EDT by ANNELISE CASTILLO MD. Rony Leach MD CARDIAC ECG ORDERABLES Performing Organization Address City/State/ZIP Code Phon e Number [facility] EKG (ABNORMAL) TROPONIN I (09/03/2015 19:30 EDT) Patholo gist Method Time Signature Troponin I 0.334 (H) <0.034 09/03/2015 [facility] (ng/mL) ng/ml 20:14 EDT CENTER LABORATORY SERVICES Specimen Anatomical Collection Method Collection Time Receive d Time (Source) Location / / Volume Laterality Blood specimen BLOOD SPECIMEN / 09/03/2015 19:30 09/02 (specimen) Unknown EDT 19:45 EDT Kofi Thornton MD CHEMISTRY & BLOOD GAS ORDERA BLES Performing Organization Address City/State/ZIP Code Phon e Number [facility] [address] [place] [address] SERVICES LACTIC ACID (09/03/2015 19:30 EDT) P athologist Signature Lactic Acid 1.4 <2.0 mmol/L 09/03/2015 [facility] 20:07 EDT CENTER LABORATORY SERVICES Specimen Anatomical Collection Method Collection Time Receive d Time (Source) Location / / Volume Laterality Blood specimen BLOOD SPECIMEN / 09/03/2015 19:30 09/02 (specimen) Unknown EDT 19:46 EDT Samantha Go MD CHEMISTRY & BLOOD GAS ORDERA BLES Performing Organization Address City/State/ZIP Code Phon e Number [facility] [address] [place] [address] SERVICES PORTABLE CHEST 1 VIEW (09/03/2015 17:02 EDT) Anatomical Region Laterality Modality Other Specimen Anatomical Collection Method Collection Time Receive d Time (Source) Location / / Volume Laterality 09/03/2015 17:02 09/03/2015 EDT 17:15 EDT Narrative 09/03/2015 17:15 EDT PORTABLE CHEST 1 VIEW [...] findings. Procedure Note Anthony Rojas MD - 09/03/2015Formatti ng of this note might be different from the original. PORTABLE CHEST 1 VIEW 09/03/2015 5:02 PM [...] above interpretation and agree with the findings. Rony Leach MD IMG DIAGNOSTIC IMAGING ORDER DAKOTA RAD US ABDOMEN ONE ORGAN/QUADRANT (09/03/2015 14:34 EDT) Anatomical Region Laterality Modality Other Specimen Anatomical Collection Method Collection Time Receive d Time (Source) Location / / Volume Laterality 09/03/2015 14:34 09/03/2015 EDT 16:17 EDT Narrative 09/03/2015 16:17 EDT RAD US ABDOMEN ONE ORGAN/QUADRANT ??09/03/2015 2:34 PM Signs and Symptoms/Comments: abdominal p ain Comparison: CT abdomen/pelvis performed 7 hours prior and [facility]. Technique: Grayscale and limited Doppler ultrasound [...] No pericholecys tic fluid is identified. Per key maker's report, while there is no focal tenderness upon scanning in the gallbladder, no is made of pressure in the area of the transducer. The right kidney measures 12.8 cm in [facility] and is normal in echotexture. No right-sided [...] findings. Procedure Note Radha Celestin MD - 09/03/2015Formatt ing of this note might be different from the original. RAD US ABDOMEN ONE ORGAN/QUADRANT 09/03/19 16 2:34 PM Signs and Symptoms/Comments: abdominal p ain Comparison: CT abdomen/pelvis performed 7 hours prior and [facility]. Technique: Grayscale and limited Doppler ultrasound [...] No pericholecys tic fluid is identified. Per key maker's report, while there is no focal tenderness upon scanning in the gallbladder, no is made of pressure in the area of the transducer. The right kidney measures 12.8 cm in [facility] and is normal in echotexture. No right-sided [...] above interpretation and agree with the findings. Samantha Go MD IMG US ORDERABLES MRSA PCR (09/03/2015 13:48 EDT) Component Value Ref Test Analysis Performed At [facility] Range Method Time Signature Specimen Nasal 09/03/2015 [facility] MEDICAL Description 15:50 EDT CENTER LABORATORY SERVICES Result No Staphylococcus 09/03/2015 [facility] MEDICAL aureus detected 19:51 EDT CENTER by PCR. LABORATORY SERVICES Specimen Anatomical Collection Method Collection Time Receive d Time (Source) Location / / Volume Laterality OTHER / Unknown 09/03/2015 13:48 09/03/19 16 EDT 15:49 EDT Neida Fisher MD MICROBIOLOGY - GENERAL ORDER DAKOTA Performing Organization Address City/State/ZIP Code Phon e Number [facility] MEDICAL CENTER LABORATORY [address] [place] [address] SERVICES [address]ARY READ BODY CT (09/03/2015 13:23 EDT) Anatomical Region Laterality Modality Other Specimen Anatomical Collection Method Collection Time Receive d Time (Source) Location / / Volume Laterality 09/03/2015 13:23 09/03/2015 EDT 16:57 EDT Narrative 09/03/2015 16:57 EDT [address] READ BODY [address] ??09/03/2015 1:23 PM Signs and Symptoms/Comments: ?? Clinical Presentation Inconsistent with Outside Imaging Interpretation; minimal abdominal pain, OSH report with concern for appedicitis and cholecytitis, phelgmon, ? drainable collection Technique: CT of the abdomen and pelvis was performed at [facility]. Secondary interpretation is performed at the request [...] findings. Procedure Note Ken Zambrano MD - 09/03/2015Formatt ing of this note might be different from the original. SECONDARY READ BODY CT 09/03/2015 1:23 PM Signs and Symptoms/Comments: Clinical Presentation Inconsistent with Outside Imaging Interpretation; minimal abdominal pain, OSH report with concern for appedicitis and cholecytitis, phelgmon, ? drainable collection Technique: CT of the abdomen and pelvis was performed at [facility]. Secondary interpretation is performed at the request [...] above interpretation and agree with the findings. Samantha Go MD IMG OTHER IMAGING ORDERABLES INPATIENT ADD-ON (09/03/2015 13:15 EDT) [facility] Method Time Signature Tests to be ALT,AST,TO 09/03/2015 [facility] MEDICAL added [place] 13:14 EDT CENTER BILI,LIP[place] LABORATORY E,[place] [id number] 09/03/2015 [facility] MEDICAL problems 13:18 EDT CENTER LABORATORY SERVICES 09/03/2015 [facility] MEDICAL number 13:18 EDT CENTER LABORATORY SERVICES Specimen Anatomical Collection Method Collection Time Receive d Time (Source) Location / / Volume Laterality OTHER / Unknown 09/03/2015 13:15 09/03/19 16 EDT 13:18 EDT Samantha Go MD HEMATOLOGY & PF4 ORDERABLES Performing Organization Address City/State/ZIP Code Phon e Number [facility] [address] [place] [address] SERVICES EKG 12-LEAD (09/03/2015 13:10 EDT) Specimen (Source) Anatomical Collection Method Collection Time Re ceived Time Location / / Volume Laterality 09/03/2015 13:10 EDT Narrative [facility] EKG - 09/04/2015 11:5 5 EDT ?[facility] Emergency ? Test Date: ?2015-09-03 Pat Name: ? JOY CUNHA ?Department: ?? ED ? Room: ? AC10 Gender: ? F ?Trim Sawyer: ?? [id number] : ?1940 ? Requested By: AVNI Putnam Order Number: [id number] ? Azeem HINKLE: ?? ANNELISE CASTILLO MD ? Measurements Intervals ?[place] ? Rate: ? 86 ? P: ?21 IL: ? 220 ?QRS: ?-19 QRSD: ? 102 [...] MD. Procedure Note Annelise Castillo MD - 09/04/2015Formattin g of this note might be different from the original. [facility] Cent r Emergency Test Date: 2015-09-03 Pat Name: JOY CUNHA Department: ED Room: AC10 Gender: F Trim Sawyer: [id number] : 1940 Requested By: AVNI Putnam Order Number: [id number] Reading MD: Merrill CASTILLO MD Measurements Intervals [place] Rate: 86 P: 21 IL: 220 QRS: -19 QRSD: 102 T: 30 [...] On 11:55:53 EDT by ANNELISE CASTILLO MD. Samantha Go MD CARDIAC ECG ORDERABLES Performing Organization Address City/State/ZIP Code Phon e Number [facility] EKG ED/URGENT CARE ADD-ON (09/03/2015 12:25 EDT) [facility] Method Time Signature Tests to be LIPASE 09/03/2015 [facility] MEDICAL added 12:23 EDT CENTER [place] [id number] (ED) 09/03/2015 [facility] MEDICAL problems 12:23 EDT CENTER LABORATORY SERVICES Specimen Anatomical Collection Method Collection Time Receive d Time (Source) Location / / Volume Laterality OTHER / Unknown 09/03/2015 12:25 09/03/19 16 EDT 12:29 EDT Ken Leggett MD HEMATOLOGY & PF4 ORDERABLES Performing Organization Address City/State/ZIP Code Phon e Number [facility] LABORATORY [address] [place] [address] SERVICES ED/URGENT CARE ADD-ON (09/03/2015 12:25 EDT) [facility] Method Time Signature Tests to be TSH 09/03/2015 [facility] MEDICAL added 12:22 EDT CENTER LABORATORY [place] for [id number] (ED) 09/03/2015 [facility] MEDICAL problems 12:22 EDT CENTER LABORATORY SERVICES Specimen Anatomical Collection Method Collection Time Receive d Time (Source) Location / / Volume Laterality OTHER / Unknown 09/03/2015 12:25 09/03/19 16 EDT 12:28 EDT Ken Leggett MD HEMATOLOGY & PF4 ORDERABLES Performing Organization Address City/State/ZIP Code Phon e Number [facility]OR[facility]ORY [address] [place] [address] SERVICES ED/URGENT CARE ADD-ON (09/03/2015 12:20 EDT) [facility] gist Method Time Signature Tests to be TROPONIN 1 09/03/2015 [facility] MEDICAL added 12:17 EDT CENTER LAB[place]AT[place] for [id number] (ED) 09/03/2015 [facility] MEDICAL problems 12:17 EDT CENTER LABORATORY SERVICES Specimen Anatomical Collection Method Collection Time Receive d Time (Source) Location / / Volume Laterality OTHER / Unknown 09/03/2015 12:20 09/03/19 16 EDT 12:23 EDT Ken Leggett MD HEMATOLOGY & PF4 ORDERABLES Performing Organization Address City/[facility]/ZIP Code Phon e Number [facility] LABORATORY [address] [place] [address] SERVICES BILIRUBIN, TOTAL (09/03/2015 11:55 EDT) P athologist Signature Bilirubin, 1.1 <1.4 mg/dl 09/03/2015 [facility] MEDICAL Total 13:45 EDT CENTER LABORATORY SERVICES Specimen Anatomical Collection Method Collection Time Receive d Time (Source) Location / / Volume Laterality BLOOD SPECIMEN / 09/03/2015 11:55 016 Unknown EDT 12:05 EDT Ken Leggett MD CHEMISTRY & BLOOD GAS ORDERA BLES Performing Organization Address City/[facility]/ZIP Code Phon e Number [facility] [address] [place] [address] SERVICES (ABNORMAL) AST (09/03/2015 11:55 EDT) P athologist Signature AST 116 (H) 15 - 46 U/L 09/03/2015 [facility] MEDICAL 13:45 EDT CENTER LABORATORY SERVICES Specimen Anatomical Collection Method Collection Time Receive d Time (Source) Location / / Volume Laterality BLOOD SPECIMEN / 09/03/2015 11:55 016 Unknown EDT 12:05 EDT Ken Leggett MD CHEMISTRY & BLOOD GAS ORDERA BLES Performing Organization Address City/[facility]/ZIP Code Phon e Number [facility]ORY [address] [place] [address] SERVICES (ABNORMAL) ALT (09/03/2015 11:55 EDT) athologist Signature ALT 78 (H) <53 U/L 09/03/2015 [facility] 13:45 EDT CENTER LABORATORY SERVICES Specimen Anatomical Collection Method Collection Time Receive d Time (Source) Location / / Volume Laterality BLOOD SPECIMEN / 09/03/2015 11:55 016 Unknown EDT 12:05 EDT Ken Leggett MD CHEMISTRY & BLOOD GAS ORDERA BLES Performing Organization Address City/State/ZIP Code Phon e Number [facility] LABORATORY [address] [place] [address] SERVICES ALKALINE PHOSPHATASE (09/03/2015 11:55 EDT) athologist Signature Total Alkaline 97 38 - 126 09/03/2015 [facility] Phosphatase U/L 13:45 EDT CENTER LABORATORY SERVICES Specimen Anatomical Collection Method Collection Time Receive d Time (Source) Location / / Volume Laterality BLOOD SPECIMEN / 09/03/2015 11:55 016 Unknown EDT 12:05 EDT Ken Leggett MD CHEMISTRY & BLOOD GAS ORDERA BLES Performing Organization Address City/State/ZIP Code Phon e Number [facility]ORY [address] [place] [address] SERVICES (ABNORMAL) TSH (09/03/2015 11:55 EDT) athologist Signature TSH 0.14 (L) 0.55 - 4.78 09/03/2015 [facility] uIU/ml 13:23 EDT CENTER LABORATORY SERVICES Specimen Anatomical Collection Method Collection Time Receive d Time (Source) Location / / Volume Laterality BLOOD SPECIMEN / 09/03/2015 11:55 016 Unknown EDT 12:05 EDT Ken Leggett MD CHEMISTRY & BLOOD GAS ORDERA BLES Performing Organization Address City/State/ZIP Code Phon e Number [facility]ORY [address] [place] [address] SERVICES LIPASE (09/03/2015 11:55 EDT) athologist Signature Lipase 31 <251 U/L 09/03/2015 [facility] 12:43 EDT CENTER LABORATORY SERVICES Specimen Anatomical Collection Method Collection Time Receive d Time (Source) Location / / Volume Laterality BLOOD SPECIMEN / 09/03/2015 11:55 016 Unknown EDT 12:05 EDT Ken Leggett MD CHEMISTRY & BLOOD GAS ORDERA BLES Performing Organization Address City/State/ZIP Code Phon e Number [facility] LABORATORY [address] [place] [address] SERVICES (ABNORMAL) TROPONIN I (09/03/2015 11:55 EDT) [facility] gist Method Time Signature Troponin I 0.073 (H) <0.034 09/03/2015 [facility] MEDICAL (ng/mL) ng/ml 12:53 EDT CENTER LABORATORY SERVICES Specimen Anatomical Collection Method Collection Time Receive d Time (Source) Location / / Volume Laterality BLOOD SPECIMEN / 09/03/2015 11:55 016 Unknown EDT 12:05 EDT Ken Leggett MD CHEMISTRY & BLOOD GAS ORDERA BLES Performing Organization Address City/[facility]/ZIP Code Phon e Number [facility] LABORATORY [address] [place] [address] SERVICES (ABNORMAL) LACTIC ACID (09/03/2015 11:55 EDT) P athologist Signature Lactic Acid 3.2 (HH) <2.0 09/03/2015 [facility] MEDICAL mmol/L 12:40 EDT [place] LABORATORY SERVICES Specimen Anatomical Collection Method Collection Time Receive d Time (Source) Location / / Volume Laterality Blood specimen BLOOD SPECIMEN / 09/03/2015 11:55 09/02 (specimen) Unknown EDT 12:05 EDT Ken Leggett MD CHEMISTRY & BLOOD GAS ORDERA BLES Performing Organization Address City/[facility]/ZIP Code Phon e Number [facility] [address] [place] [address] SERVICES (ABNORMAL) HEMAGRAM AND DIFFERENTIAL (09/03/2015 11:55 EDT) Component Value Ref Test Analysis Performed At [facility] gist Range Method Time Signature WBC 23.44 (H) 4.0 - 09/03/2015 [facility] MEDICAL 12.4 12:15 EDT CENTER K/cmm LABORATORY SERVICES RBC 4.00 3.86 - 09/03/2015 [facility] MEDICAL 5.04 12:15 EDT CENTER M/cmm LABORATORY SERVICES Hemoglobin 11.8 11.6 - 09/03/2015 [facility] MEDICAL 15.2 12:15 EDT CENTER gm/dl LABORATORY SERVICES HCT 36.9 34.9 - 09/03/2015 [facility] MEDICAL 44.4 % 12:15 EDT CENTER LABORATORY SERVICES MCV 92 81 - 98 09/03/2015 [facility] MEDICAL fl 12:15 EDT CENTER LABORATORY SERVICES MCH 29.5 26.7 - 09/03/2015 [facility] MEDICAL 33.3 pg 12:15 EDT CENTER LABORATORY SERVICES MCHC 32.0 (L) 32.1 - 09/03/2015 [facility] MEDICAL 35.9 12:15 EDT CENTER gm/dl LABORATORY SERVICES RDW-CV 14.6 11.7 - 09/03/2015 [facility] [facility] MEDICAL 14.6 % 12:15 EDT [facility]ENTER LABORATORY SERVICES RDW-SD 49.4 37.6 - 09/03/2015 [facility] MEDICAL 50.3 fl 12:15 EDT CENTER LABORATORY SERVICES PLT 139 (L) 141 - 09/03/2015 [facility] MEDICAL 377 12:15 EDT CENTER K/cmm LABORATORY SERVICES MPV 10.2 9.5 - 09/03/2015 [facility] MEDICAL 12.7 fl 12:15 EDT CENTER LABORATORY SERVICES Neutrophils 76.0 % 09/03/2015 [facility] MEDICAL 13:10 EDT CENTER LABORATORY SERVICES Bands 13.0 % 09/03/2015 [facility] MEDICAL 13:10 EDT CENTER LABORATORY SERVICES Lymphocytes 3.0 % 09/03/2015 [facility] MEDICAL 13:10 EDT CENTER LABORATORY SERVICES Monocytes 1.0 % 09/03/2015 [facility] MEDICAL 13:10 EDT CENTER LABORATORY SERVICES Metamyelocytes 7.0 % 09/03/2015 [facility] MEDICAL 13:10 EDT CENTER LABORATORY SERVICES ABS Neutrophils 17.82 (H) 2.20 - 09/03/2015 [facility] MEDICAL 8.85 13:10 EDT CENTER K/cmm LABORATORY SERVICES ABS Bands 3.05 K/cmm 09/03/2015 [facility] MEDICAL 13:10 EDT CENTER LABORATORY SERVICES ABS Lymphs 0.70 (L) 1.09 - 09/03/2015 [facility] MEDICAL 3.30 13:10 EDT CENTER K/cmm LABORATORY SERVICES ABS Monocytes 0.23 0.1 - 09/03/2015 [facility] MEDICAL 0.8 13:10 EDT CENTER K/cmm LABORATORY SERVICES ABS 1.64 K/cmm 09/03/2015 [facility] MEDICAL Metamyelocytes 13:10 [facility] LABORATORY SERVICES Differential Rev'd by 09/03/2015 [facility] MEDICAL Comment Pathologist 13:10 [facility] LABORATORY SERVICES Toxic Granulation Present 09/03/2015 [facility] MEDICAL 13:10 [facility] LABORATORY SERVICES Type of Diff: Manual 09/03/2015 [facility] 13:10 [facility] LABORATORY SERVICES Specimen Anatomical Collection Method Collection Time Receive d Time (Source) Location / / Volume Laterality Blood specimen BLOOD SPECIMEN / 09/03/2015 11:55 09/02 (specimen) Unknown EDT 12:05 EDT Ken Leggett MD PACKAGES & DNA PROBE ORDERAB LES Performing Organization Address City/State/ZIP Code Phon e Number [facility] LABORATORY [address] [place] [address] SERVICES (ABNORMAL) BASIC METABOLIC PANEL (09/03/2015 11:55 EDT) Analysis Performed At Patho logist Time Signature Sodium 145 136 - 145 09/03/2015 [facility] mEq/L 12:27 [facility] LABORATORY SERVICES Potassium 3.3 (L) 3.5 - 5.0 09/03/2015 [facility] mEq/L 12:27 [facility] LABORATORY SERVICES Chloride 113 (H) 96 - 110 09/03/2015 [facility] mEq/L 12:27 [facility] LABORATORY SERVICES CO2 20 (L) 24 - 32 09/03/2015 [facility] mEq/L 12:43 [facility] LABORATORY SERVICES BUN 17 10 - 26 09/03/2015 [facility] mg/dl 12:43 [facility] LABORATORY SERVICES Creatinine 0.93 0.52 - 09/03/2015 [facility] MEDICAL 1.04 mg/dl 12:43 [facility] LABORATORY SERVICES GFR, Calculated 62 >60 09/03/2015 [facility] ml/min/1.7 12:43 [facility] 3m2 LABORATORY SERVICES Comment: eGFR calculated using CKD-EPI equation f or non Americans. Multiply eGFR by 1.16 for Americans. Calcium 7.4 (L) 8.5 - 10.5 09/03/2015 12:43 EDT [facility] mg/dl LABORATORY SERVICES Calculated Calcium 9.2 8.5 - 10.5 09/03/2015 12:43 EDT [facility] mg/dl LABORATORY SERVICES Glucose, Serum 109 (H) 70 - 100 mg/dl 09/03/2015 12:43 EDT [facility] LABORATORY SERVICES Fasting? Unknown 09/03/2015 12:43 EDT [facility] LABORATORY SERVICES Specimen Anatomical Collection Method Collection Time Receive d Time (Source) Location / / Volume Laterality Blood specimen BLOOD SPECIMEN / 09/03/2015 11:55 09/02 (specimen) Unknown EDT 12:05 EDT Ken Leggett MD CHEMISTRY & BLOOD GAS ORDERA BLES Performing Organization Address City/State/ZIP Code Phon e Number [facility] [address] [place] [address] SERVICES documented in this encounter Visit Diagnoses [...] 81 mg, oral, DAILY, First dose on Kinjal 09/04/15 at 0900, Until Discontinued, Routine Given 09/06/2015 8:25 EDT 81 mg Given 09/05/2015 8:15 EDT 81 mg calcium gluconate 100 mg/mL (10%) injection Given 09/04/2015 5:4 8 EDT 2,000 mg 2,000 mg 2,000 mg (2 g), intravenous, NOW X1, 1 dose, On Kinjal 09/04/15 at 0530, Routine calcium gluconate 100 mg/mL [...] EDT 7 5 mL/hr 75 mL/hr solution 75 mL/hr, intravenous, CONTINUOUS, Starting on Tue09/03/15 at 1315, Until Tue09/04/15 at 1258, Routine Rate Documented 09/04/2015 11:00 EDT 75 mL/hr 75 mL/hr Rate Documented 09/04/2015 10:00 EDT 75 mL/hr 75 mL/hr enoxaparin (LOVENOX) injection 40 mg Given 09/07/2015 8:53 EDT 40 mg 40 mg, subcutaneous, DAILY, First dose on Kinjal 09/04/15 at 0900, Until Discontinued, Routine Given 09/06/2015 8:25 EDT 40 mg Given 09/05/2015 8:15 EDT 40 mg furosemide (LASIX) injection 20 mg Given 09/04/2015 11:50 EDT 20 mg 20 mg, intravenous, NOW X1, 1 dose, On Kinjal 09/04/15 at 1115, Routine furosemide (LASIX) injection 20 mg Given 09/05/2015 0:13 EDT 20 mg 20 mg, intravenous, NOW X1, 1 dose, On Tue09/05/15 at 0030, Routine levothyroxine (SYNTHROID) tablet 112 mcg Given 09/07/2015 8:54 EDT 112 mcg 112 mcg, oral, DAILY, First dose on 09/06/15 at 0900, Until Discontinued, Routine Given 09/06/2015 8:33 EDT 112 mcg levothyroxine 50 mcg IV syringe Given 09/05/2015 8:15 EDT 50 mcg 50 mcg, intravenous, DAILY, First dose (after last modification) on Kinjal 09/04/15 at 0900, Until Discontinued, Routine Given 09/04/2015 [...] PRN, Starting on Tue09/03/15 at 1310, Until Tue09/07/15 at 1553, Nausea, Vomiting, Routine oxybutynin (DITROPAN) [...] Funk RN) 0853 (Given - Provider: Mary Ren, ARYA) 81 mg, oral, DAILY, First dose on Kinjal 09/04/15 at 0900, Until Discontinued, Routine calcium gluconate 100 mg/mL (10%) injection 2,000 mg ( COMPLETED) 1025 (Given - Provider: Stacey Johnson RN) 2,000 mg (2 g), intravenous, NOW X1, 1 dose, Tue09/05/15 at 1045, Routine docusate sodium (COLACE) capsule 100 mg 2039 (Not Given - Provider: Leanna Rudd RN - Reason: Patient/family refused) 0854 (Given - Provider: Mary Ren, RN) 100 mg, oral, 2 TIMES DAILY, First dose on Tue09/06/15 at 2100, Until Discontinued, Routine enoxaparin (LOVENOX) injection 40 mg (CANCELED) 0815 ( Given - Provider: Stacey Johnson RN) 0825 (Given - Provider: Virginia Funk, ARYA) 0853 (Given - Provider: Mary Ren, RN) 40 mg, subcutaneous, DAILY, First dose o n Kinjal 09/04/15 at 0900, Until Discontinued, Routine furosemide (LASIX) injection 20 mg (COMPLETED) 0013 (G iven - Provider: Caro Kaufman RN) 20 mg, intravenous, NOW X1, 1 dose, Tue09/05/15 at 0030, Routine levothyroxine (SYNTHROID) tablet 112 mcg (CANCELED) 0833 (Given - Provider: Virginia Funk, ARYA) 0854 (Given - Provider: Mary Ren , ARYA) 112 mcg, oral, DAILY, First dose on 09/06/15 at 0900, Until Discontinued, Routine levothyroxine 50 mcg IV syringe (CANCELED) 0815 (Given - Provider: Stacey Johnson RN) 50 mcg, intravenous, DAILY, First dose o [...] (COMPLETED) 0028 (Given - Provider: Caro Kaufman, RN)0726 (Given - Provider: Stacey Johnson, ARYA)1619 (Given - Provider: John Davies, ARYA) 4.5 g, intravenous, for 4 Hours, EVERY 8 HOURS, 7 doses, First dose on Tue09/03/15 at 1600, Last dose on Tue09/05/15 at 1600, Routine potassium chloride IVPB 20 mEq/100 mL (COMPLETED) 1029 (Given - Provider: Stacey Johnson, ARYA)1137 (Given - Provider: Stacey Johnson, ARYA) 20 mEq, intravenous, EVERY HOUR, 2 doses , First dose on Tue09/05/15 at 1100, Last dose on Tue09/05/15 at 1200, Routine potassium, sodium phosphates (PHOS-NAK) 280-160-250 mg packet 8 mmol (COMPLETED) 1135 (Not Given - Provider: Stacey rasmussen, ARYA - Reason: Medication not available)1303 (Given - Provider: Stacey Johnson, ARYA)2101 (Given - Provider: Lorie Lauren, ARYA) 0825 (Given - Provider: Virginia Funk, RN) 8 mmol (1 Packet), oral, 2 TIMES DAILY, 3 doses, First dose on Tue09/05/15 at 1030, Last dose on Tue09/06/15 at 0900, Routine PRN Medication Order 09/05/2015 09/06/2015 09/07/2015 acetaminophen (TYLENOL) tablet 650 mg 650 mg, oral, EVERY 4 HOURS PRN, Startin g Tue09/03/15 at 1921, Until 09/07/15 at 1553, Pain, [...] 8 mg/250 mL (32 mcg/mL) infusion solution Nursing Count Last Ordered Date First Ordered [...] Ordered Date NOTIFY PPS OF DISCHARGE COMPLETE 09/07/2015 PPS NOTIFICATION OF PATIENT ARRIVAL ON 3 6 09/03/2015 UNIT PPS NOTIFICATION OF SENDING PATIENT OFF 1 09/05/19 16 THE UNIT TRANSFER PATIENT 09/05/2015 CHANGE ATTENDING TO: 1 09/03/2015 UR PATIENT STATUS CHANGE 1 09/03/2015 Discharge Count Last Ordered Date First Ordered Date DISCHARGE PATIENT 1 09/07/2015 documented in this encounter Care Teams Trim Sawyer Relationship Specialty Start Date End Date Jodi Camp MD PCP - General 09/03/15 12/22/[address] [address] documented as of this encounter
--- OUTSIDE RECORDS SUMMARY | 2022-02-19 01:13 | XMS_ITS | Encounter Summary ---
:1940 Author Organization [facility] Address [address] [place] [address] Care Team Providers Name Role Phone Unavailable Primary Care Provider Unavailable Encounter Details Date Type Department Care Team Description 08/07/2008 Orders Only [facility] Adult Unknown , Provider, Primary Care - Concepcion mcnamara 1 [facility] [place], [place] [id number] Social History Tobacco Use Types Packs/Day Years Used Date Smoking Tobacco: Never Assessed Sex Assigned at Date Recorded Not on file documented as of this encounter Plan of Treatment Not on filedocumented as of this encounter Procedures Procedure Name Priority Date/Time Associated Diagnosis Comme nts T3 FREE Routine 08/07/2008 7:35 EDT Results for this procedure are i n the results section . documented in this encounter Results T3 FREE (08/07/2008 7:35 EDT) P athologist Signature T3, Free 2.4 2.3 - 4.2 [facility] pg/mL LAB Specimen Anatomical Collection Method Collection Time Receive d Time (Source) Location / / Volume Laterality Blood specimen 08/07/2008 7:35 08/07/2008 (specimen) EDT 21:43 EDT Provider Unknown CHEMISTRY & BLOOD GAS ORDERA BLES Performing Organization Address City/State/ZIP Code Phon e Number [facility] [address] [place] [address] SERVICES [facility] [address] [place] [address] documented in this encounter Visit Diagnoses Not on filedocumented in this encounter
--- OUTSIDE RECORDS SUMMARY | 2022-02-19 01:13 | XMS_ITS | Encounter Summary ---
:1940 Author Organization [facility] Address [address] [place] [address] Care Team Providers Name Role Phone Fabiano Aranda MD Primary Care Provider Encounter Details Date Type Department Care Team Description 02/23/[address] [facility] Lino Ashton MS Family history of Hematology & Oncology [address] [facility] [place] [address] (Primary Dx) [address] [facility] [place] [address] [phone] Social History Tobacco Use Types Packs/Day Years Used Date Smoking Tobacco: Never Assessed Sex Assigned at Date Recorded Not on file documented as of this encounter Plan of Treatment Not on filedocumented as of this encounter Results FAP KNOWN MUTATION (02/23/2010 15:46 EST) Component Value Ref Test Analysis Performed Pathologis t Range Method Time At Signature Specimen Blood [facility] Specimen ID [id number] [facility] Order Date 24 Feb 2010 08:40 [facility] Reason For MOSQUEDA Referral Family history of familial a denomatous polyposis (FAP). Test ? [facility] RESENDIZ for the presence of a mutati on in the APC gene. ? Method PANDA DNA sequence analysis was us ed to test for the presence of ? [facility] the c.426_427delAT mutation in exon 4 of the APC gene. ? Testing was performed for th is specific mutation because it ? was previously identified in an affected family member of ? this individual. ??Mutation nomenclature is based on GenBank ? accession number; [place] [id number]. ? Result-FAP Known MOSQUEDA Mut. 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 ? [facility] Interpretation PANDA Absence of the mutation prev iously identified for an ? [facility] affected family member yanni ates that this individual is NOT ? [...] donors will interfere ? with testing. Call [facility] for ? instructions for testing pat ients who have received a bone ? marrow transplant. ? This test was developed and its performance characteristics ? determined by Laboratory Med icine and Pathology, [facility]. This test has not be en cleared or approved by the ? U.S. Food and Drug Administr ation. ? Reviewed By PANDA Silva MD ? [facility] Release Date 09 Mar 2010 10:28 PANDA Performed or Referred by: [facility] Dpt of Lab Med and P ath, [address] [facility] ?? , [place] [address], Lab Dir: Myles Spangler III, MD Specimen Anatomical Collection Method Collection Time Receive d Time (Source) Location / / Volume Laterality Blood specimen 02/23/2010 15:46 0 (specimen) EST 16:01 EST Steffen Severino MD HEMATOLOGY & PF4 ORDERABLES Performing Organization Address City/State/ZIP Code Phon e Number [facility] [address] [place] [address] SERVICES [facility] [address] [place] [address] documented in this encounter Visit Diagnoses Diagnosis Family history of genetic disease - Prim marycruz Family history of other condition documented in this encounter Care Teams Director Of Finance Relationship Specialty Start Date End Date Fabiano Aranda MD PCP - General 02/20/10 09/02/[address] [place] [address] [address] [place] [id number] documented as of this encounter
--- OUTSIDE RECORDS SUMMARY | 2022-02-19 01:13 | XMS_ITS | Encounter Summary ---
:1940 Author Organization [facility] Address [address] [place] [address] Care Team Providers Name Role Phone Fabiano Aranda MD Primary Care Provider Encounter Details Date Type Department Care Team Description 02/23/2010 Hospital Encounter [facility] Steffen Severino Family history of - [facility] MD [place] genetic disease [address] [facility] [address] [place], [place] [id number] [place] [address] Pavili, Level [address] [place] [address] Social History Tobacco Use Types [...] Range Method Time At Signature Specimen Blood [facility] Specimen ID [id number] [facility] Order Date 24 Feb 2010 08:40 [facility] Reason For PANDA Referral Family history of familial a denomatous polyposis (FAP). Test ? [facility] for the presence of a mutati [...] based on GenBank ? accession number; NM [id number]. ? Result-FAP Known PANDA Mut. 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 ? [facility] Interpretation PANDA Absence of the mutation prev iously identified for an ? [facility] affected family member indic ates that [...] donors will interfere ? with testing. Call [facility] for ? instructions for testing pat ients who have received a bone ? marrow transplant. ? This test was developed and its performance characteristics ? determined by Laboratory Med icine and Pathology, [facility]. This test has not be en cleared or approved by the ? U.S. Food and Drug Administr ation. ? Reviewed By PANDA Silva MD ? [facility] Release Date 09 Mar 2010 10:28 PANDA Performed or Referred by: [facility] Dpt of Lab Med and P ath, [address] [facility] ?? , [place] [address], Lab Dir: Myles Spangler III, MD Specimen Anatomical Collection Method Collection Time Receive d Time (Source) Location / / Volume Laterality Blood specimen 02/23/2010 15:46 0 (specimen) EST 16:01 EST Steffen Severino MD HEMATOLOGY & PF4 ORDERABLES Performing Organization Address City/State/ZIP Code Phon e Number [facility] [address] [place] [address] SERVICES [facility] [address] [place] [address] documented in this encounter Visit Diagnoses Diagnosis Family history of genetic disease Family history of other condition documented in this encounter Care Teams Burnishing Machine Operator Relationship Specialty Start Date End Date Fabiano Aranda MD PCP - General 02/20/10 09/02/[address] [place] [address] [address] [place] [address] documented as of this encounter
--- OUTSIDE RECORDS SUMMARY | 2022-02-19 01:13 | XMS_ITS | Encounter Summary ---
:1940 Author Organization [facility] Address [address] [place] [address] Care Team Providers Name Role Phone Unavailable Primary Care Provider Unavailable Encounter Details Date Type Department Care Team Description 11/23/2007 Before PRISM Converted [facility] Unknown, Visit (Maple) Adult Primary Care - Provider, Merrill Palencia Calhoun [phone] [facility] ([place]) [place] [address] [phone] Social History Tobacco Use Types Packs/Day Years [...] encounter Results VITAMIN B12 (11/23/2007 7:39 EDT) athologist Signature Vitamin B-12 411 250 - 1100 [facility] pg/ml LAB Specimen Anatomical Collection Method Collection Time Receive d Time (Source) Location / / Volume Laterality 11/23/2007 7:39 11/23/2007 EDT 22:19 EDT Provider Unknown CHEMISTRY & BLOOD GAS MICHAEL JADE Performing Organization Address City/State/ZIP Code Phon e Number [facility] [address] [place] [address] SERVICES [facility] [address] [place] [address] documented in this encounter Visit Diagnoses Not on filedocumented in this encounter
[2022-02-19 08:32] LABS: Abs Immature Grans 0.01 10^3/uL (0.0-0.06); Absolute Basophil Count 0.03 10^3/uL (0.0-0.2); Absolute Eosinophil Count 0.11 10^3/uL (0.0-0.7); Absolute Lymphocyte Count 0.86 10^3/uL (1.2-3.4); Absolute Monocyte Count 0.52 10^3/uL (0.1-0.8); Absolute Neutrophil Count 1.34 10^3/uL (1.2-6.7); Eosinophils % 3.8; HCT 38.6 % (36.0-46.0); HGB 12.8 g/dL (11.2-15.7); Immature Grans % 0.3; MCH 33.8 pg (27.0-33.0); MCHC 33.2 % (32.0-36.0); MCV 102 fL (80-95); MPV 9.3 fL (8.0-11.0); Monocytes % 18.1; Neutrophils % 46.8; Platelet Count 214 10^3/uL (130-400); RBC 3.79 10^6/uL (3.93-5.22); RDW 13.9 % (11.7-14.6); RDW-SD 51.9 fL; WBC 2.87 10^3/uL (4.4-10.8)
[2022-02-19 08:51] LABS: ALT 142 U/L (14-59); AST 193 U/L (15-37); Albumin 3.1 g/dL (3.4-5.0); Alkaline Phosphatase 152 U/L (46-116); Anion Gap 7.7 mmol/L (3-11); BUN 14 mg/dL (7-18); Bilirubin, Total 0.6 mg/dL (0.2-1.0); CO2 28.3 mmol/L (21.0-32.0); CREATININE 0.9 mg/dL (0.55-1.02); Chloride 107 mmol/L (98-107); Estimated GFR 65.03 (mL/min/1.73m2); Glucose 126 mg/dL (74-106); Potassium 3.8 mmol/L (3.5-5.1); Sodium 143 mmol/L (136-145); Total Protein 6.9 g/dL (6.4-8.2)
[2022-02-19] MEDS: Normal Saline Flush 10 ML SYR IVP (08:52)
[2022-02-19 20:50] LABS: CEA 4.3 ng/mL (See Note)
== END 2022-03-03 23:59 | disposition home or self-care (01) ==
LOC: INF 01:05
PROVIDERS: Visit Provider Internal Medicine Hematology & Oncology
DX: C18.9 Malignant neoplasm of colon, unspecified (principal); Z45.2 Encounter for adjustment and management of vascular access device
CPT/HCPCS: 36591; 80053; 82378; 85025

== ENCOUNTER 2022-03-26 00:51 | Outpatient (RCR) | payer MEDICARE, SELFPAY ==
--- OUTSIDE RECORDS SUMMARY | 2022-03-05 01:48 | XMS_ITS | Encounter Summary ---
:1940 [place] [address] Care Team Providers Name Role Phone None Primary Care Provider Unavailable Encounter Details Date Type Department Care Team Description 02/10/2022 Ancillary Procedure Radiology Library at Jorge Romero [facility] [place] [address] ONCOLOGY [phone] [place], [place] [address] (Wo rk) Social History Tobacco Use Types Packs/Day Years Used Date Smoking Tobacco: Never Smokeless Tobacco: Never Sex Assigned at Date Recorded Not on file documented as of this encounter Plan of Treatment Upcoming Encounters Date Type Specialty Care Team Description 03/05/2022 Office Visit Hematology and Oncology Michael Romero MD [facility] [place] [address] Maricarmen Payton FRAME CHANGER [address] [place] [address] [place] [address] 03/05/2022 Infusion Hematology and Oncology documented as of [...] Time / Laterality Volume Narrative RAD - 02/17/2022 10:54 AM EST This exam is auto-finalizing. It's purpo se is for storage only. Michael Romero MD IMG FILM LIBRARY ORDERABLES Performing Organization Address City/State/ZIP Code Phon e Number RAD [place], [place] documented in this encounter Visit Diagnoses Not on filedocumented in this encounter Care Teams Wound Care Coordinator Relationship Specialty Start Date End Date None PCP - General 12/03/19 None documented as of this encounter
--- OUTSIDE RECORDS SUMMARY | 2022-03-05 01:48 | XMS_ITS | Encounter Summary ---
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 Fam Hx: Father - Mother - breast [...] 1.5 Doppler US, discussed with radiology - [facility] thrombosis Assessment & Plan Joy Armstrong is [...] in the pelvis. [place] [facility] and [...] I reviewed the Ct with radiology at [facility]. There does appear to be RIJ thrombus. [...] questions/concerns or new symptoms. Mckenna Farris MSN, HRIS SPECIALIST, AOCNP Medical Oncology documented in this encounter Plan of Treatment Upcoming Encounters Date Type Specialty Care Team Description 03/05/2022 Office Visit Hematology and Oncology Michael Romero MD [facility] [place] [address] Maricarmen Payton APRN [address] [place] [address] [place] [address] 03/05/2022 Infusion Hematology and Oncology documented as [...] documented in this encounter Care Teams Machine Turner Relationship Specialty Start Date End Date None PCP - General 12/03/19 None documented as of this encounter
--- OUTSIDE RECORDS SUMMARY | 2022-03-05 01:48 | XMS_ITS | Encounter Summary ---
:1940 Author Organization [facility] [address] Care Team Providers Name Role Phone None [...] COLORECTAL CANCER - FOLFOX-6 (14 DAY) [address] [place] [phone] Fax: Referral ID Status Reason Start Date Expiration Date Visits V isits Requested Authorized [id number] Authorized 05/08/2021 02/26/2022 99 99 Encounter Details Date Type Department Care Team Description 01/01/2022 Infusion Hematology Oncology at [facility] colon cancer with [facility] metastasis to other site [address] [place] [phone] Social History Tobacco Use Types [...] OBJECTIVE LAB DATA: Labs done today at [facility] reviewed and found adequate for treatment. IV [...] Michael Romero MD [facility] [place] [address] Maricarmen Payton, [address] [place] [address] 03/05/2022 Infusion Hematology and Oncology documented as [...] Routine documented in this encounter Care Teams Hydraulic Bull Riveter Operator Relationship Specialty Start Date End Date None PCP - General 12/03/19 None documented as of this encounter
--- OUTSIDE RECORDS SUMMARY | 2022-03-05 01:48 | XMS_ITS | Encounter Summary ---
:1940 Author Organization [facility] [place] [address] Care Team Providers Name Role Phone None Primary Care Provider Unavailable Reason for Visit Reason Comments IV Access Port flush only Encounter Details Date Type Department Care Team Description 02/19/2022 Infusion Hematology Oncology at [facility] colon cancer with [facility] metastasis to other site [address] [place] [address] [phone] Social History Tobacco Use Types Packs/Day Years Used Date Smoking Tobacco: Never Smokeless Tobacco: Never Sex Assigned at Date Recorded Not on file documented as of this encounter Progress Notes Lisa Ashby RN - 02/19/2022 10:00 AM EST INFUSION THERAPY ADMINISTRATION NOTES DIAGNOSIS: Mets Colon REASON FOR VISIT: MEDIPORT FLUSH ONLY IV ACCESS: Mediport GAUGE: 19G BLOOD RETURN: yes ANY S/S OF INFECTION/EXTRAVASATIONS: no signs of IV complications observed IV FLUSHED WITH: 20cc NS and 500 units Heparin IV DISCONTINUED: yes ASSESSMENT: Patient tolerated treatment well. PLAN: Return to clinic next week for labs only. Return in 2 weeks for consideration of C17D1 treatment. documented in this encounter Plan of Treatment Upcoming Encounters Date Type Specialty Care Team Description 03/05/2022 Office Visit Hematology and Oncology Michael Romero MD [facility] [place] [address] Maricarmen Payton APRN [address] [place] [address] [place] [address] 03/05/2022 Infusion Hematology and Oncology documented as of this encounter Procedures Procedure Name Priority Date/Time Associated Diagnosis Comme nts LAB SCAN 02/23/2022 12:00 AM Results for this EST procedure are i n the results section . documented in this encounter Results SCAN DOC: LAB (02/23/2022 12:00 AM EST) Narrative 02/23/2022 12:00 AM EST This result has an attachment that is no t available. Ordered by an unspecified provider. 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
--- OUTSIDE RECORDS SUMMARY | 2022-03-05 01:48 | XMS_ITS | Encounter Summary ---
:1940 [place] [address] Care Team Providers Name Role Phone None Primary Care Provider Unavailable Encounter Details Date Type Department Care Team Description 11/26/2021 Ancillary Procedure Radiology Library at Jorge Romero [facility] [place] [address] ONCOLOGY [phone] [place], [place] [address] (Wo rk) Social History Tobacco Use Types Packs/Day Years Used Date Smoking Tobacco: Never Smokeless Tobacco: Never Sex Assigned at Date Recorded Not on file documented as of this encounter Plan of Treatment Upcoming Encounters Date Type Specialty Care Team Description 03/05/2022 Office Visit Hematology and Oncology Michael Romero MD [facility] [place] [address] Maricarmen Payton [address] [place] [address] 03/05/2022 Infusion Hematology and Oncology documented as [...] Address City/State/ZIP Code Phon e Number RAD [place], [place] documented in this encounter Visit Diagnoses Not on filedocumented in this encounter Care Teams Naval Inspector Relationship Specialty Start Date End Date None PCP - General 12/03/19 None documented as of this encounter
--- OUTSIDE RECORDS SUMMARY | 2022-03-05 01:48 | XMS_ITS | Encounter Summary ---
:1940 [place] [address] Care Team Providers Name Role Phone None Primary Care Provider Unavailable Encounter Details Date Type Department Care Team Description 01/01/2022 Office Visit Hematology/Oncology Lissy Luna RD Primary colon cancer at [facility] with metastasis to [address] other site [place], [place] HEMATOLOGY AND [address] ONCOLOGY [phone] [place], [place] [address] Social History Tobacco Use Types [...] weeks ?? 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
--- OUTSIDE RECORDS SUMMARY | 2022-03-05 01:48 | XMS_ITS | Continuity of Care Document ---
:1940 Author Organization [facility] Address [address] [place] [address] Care Team Providers Name Role Phone Taryn Isaacsrick Primary Care Physician Encounter [facility] Date(s): 02/23/22 - 02/23/22 [facility] [address] [place] [address] Discharge Disposition: Home or Self Care Attending Physician: Michael Romero MD Admitting Physician: Michael Romero MD Referring Physician: Michael Romero MD Allergies, Adverse Reactions, Alerts Substance Reaction Severity [...] BID, # 180 cap, 3 Refill(s), Pharmacy: [facility] Start Date: 09/02/21 Stop Date: 08/28/22 [...] lysis of adhesions, enterectomy with anastomosis creation.3Upper [id number] colon polyp - next due 2019 diverticulosis Results Laboratory List Name Date .Manual Differential (NCTY) 02/23/22 CBC w/ Diff 02/23/22 Comprehensive Metabolic Panel 02/23/22 Most recent to oldest [Reference Range]: 1 WBC [5.0-10.0 x10^3/mcL] 4.7 x10^3/mcL *LOW* (02/23/22 7:09 AM) RBC [4.1-5.3 x10^6/mcL] 4.0 x10^6/mcL *LOW* (02/23/22 7:09 AM) Segs Man [40-75 %] 38 % *LOW* (02/23/22 7:09 AM) Lymph Man [20-50 %] 36 % (02/23/22 7:09 AM) [place] Man 18 % *NA* (02/23/22 7:09 AM) Eos Man 1 % *NA* (02/23/22 7:09 AM) BUN [7-18 mg/dL] 16 mg/dL (02/23/22 7:09 AM) Glucose Level [74-106 mg/dL] 100 mg/dL (02/23/22 7:09 AM) Lymph, Atyp Man 3 % *NA* (02/23/22 7:09 AM) Potassium Level [3.5-5.1 mmol/L] 4.1 mmol/L (02/23/22 7:09 AM) MCV [80.0-96.0] 103.0 *HI* (02/23/22 709 AM) RBC Morph Abnormal (02/23/2209 AM) AST [15-37 unit/L] 48 unit/L *HI* (02/23/22 AM) ALT [14-59 unit/L] 77 unit/L *HI* (02/23/22 709 AM) MCHC [31.0-35.0 g/dL] 32.9 g/dL (02/23/2209 AM) Sodium Level [136-145 mmol/L] 139 mmol/L (02/23/2209 AM) Hct [37.0-47.0 %] 41.6 % (02/23/2209 AM) Calcium Level [8.5-10.1 mg/dL] 9.2 mg/dL (02/23/2209 AM) Albumin Level [3.4-5.0 g/dL] 3.2 g/dL *LOW* (02/23/22 AM) Protein Total [6.4-8.2 g/dL] 7.2 g/dL (02/23/22 709 AM) MCH [26.0-32.0 pg] 33.9 pg *HI* (02/23/22 7:09 AM) Bilirubin Total [0.2-1.0 mg/dL] 0.5 mg/dL (02/23/22 7:09 AM) Hgb [12.0-16.0 g/dL] 13.7 g/dL (02/23/22 7:09 AM) Alk Phos [46-146 unit/L] 141 unit/L (02/23/22 709 AM) Band Man [0-5 %] 0 % (02/23/22 709 AM) Platelets [130-450 x10^3/mcL] 227 x10^3/mcL (02/23/22 7:09 AM) CO2 [21-32 mmol/L] 32 mmol/L (02/23/22 7:09 AM) Macrocyte Rare (02/23/22 7:09 AM) eGFR Non-AA [>=60] 61 (02/23/22 7:09 AM) eGFR AA [>=60] 61 (02/23/22 7:09 AM) Chloride Level [98-107 mmol/L] 105 mmol/L (02/23/22 7:09 AM) RDW-CV [11.7-17.0 %] 13.6 % (02/23/22 7:09 AM) Abs Neut Man 1.8 x10^3/mcL *NA* (02/23/22 7:09 AM) Anisocyte Rare (02/23/22 7:09 AM) Creatinine Level [0.55-1.02 mg/dL] 0.95 mg/dL (02/23/22 7:09 AM) Baso Man [0-1 %] 4 % *HI* (02/23/22 7:09 AM) Social History Social History Type Response Smoking Status Smoking tobacco use: Never t obacco user; Never entered on: 08/27/21 Sex Female Patient Care team information PersonnelName: Manuel Isaacs MD Address: Address: [address]
--- OUTSIDE RECORDS SUMMARY | 2022-03-05 01:48 | XMS_ITS | Encounter Summary ---
:1940 Author Organization [facility] [place] [address] Care Team Providers Name Role Phone None [...] Romero MD [facility] [place] [address] Maricarmen Payton [address] HEMATOLOGY AND [place], [place] [address] 03/05/2022 Infusion Hematology and Oncology documented as of this encounter Visit Diagnoses Not on filedocumented in this encounter Care Teams Credit And Loan Collections Supervisor Relationship Specialty Start Date End Date None PCP - General 12/03/19 None documented as of this encounter
--- OUTSIDE RECORDS SUMMARY | 2022-03-05 01:48 | XMS_ITS | Encounter Summary ---
:1940 [place] [address] Care Team Providers Name Role Phone None Primary Care Provider Unavailable Encounter Details Date Type Department Care Team Description 12/18/2021 Office Visit Hematology/Oncology Lissy Luna RD Primary colon cancer at [facility] with metastasis to [address] other site [place], [place] HEMATOLOGY AND [address] ONCOLOGY [phone] [place], [place] [address] Social History Tobacco Use Types [...] not significant Estimated needs based on 78.3 [id number] kcals (25-30 kcal/kg) 78-101 g protein 1 [...] Michael Romero MD [facility] [place] [address] Maricarmen Payton, [address] [place] [address] 03/05/2022 Infusion Hematology and Oncology documented as of this encounter Visit Diagnoses Diagnosis 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
--- OUTSIDE RECORDS SUMMARY | 2022-03-05 01:48 | XMS_ITS | Encounter Summary ---
:1940 Author Organization [facility] [place] [address] Care Team Providers Name Role Phone None Primary Care Provider Unavailable Reason for Referral Diagnostic Test (Routine) - Pending Review Specialty Diagnoses / Procedures Referred By Contact Refer red To Contact Diagnoses Neck swelling Stage IV adenocarcinoma of small bowel Acute deep vein thrombosis (DVT) of other vein of right upper extremity Michael Romero MD Procedures Vascular Imaging Venous Upper Extremity Unilateral [facility] [place] [address] Referral ID Status Reason Start Expiration Visits Visits Date Date Requested Authorized [id number] Pending Specialty 12/04/2021 06/04/2023 1 1 Review Service Requested Encounter Details Date Type Department Care Team Description 12/04/2021 Office Visit Hematology/Oncology Michael Romero Neck swelling; at Tl Putnam MD Stage IV adenocarcinoma of small bowel; [address] [place] [address] Acute deep vein thrombosis ( DVT) of other vein of right upper extremity [place], [place] CENTER [address] ONCOLOGY [phone] [place], [place] [address] Social History Tobacco Use Types [...] toward bedtime. Soc Hx: , lives in [place], [place] Tob - Never Etoh - None Worked as [email or web address]. Fam Hx: Father - Mother - breast [...] 1.5 Doppler US, discussed with radiology - [facility] thrombosis Assessment & Plan Joy Armstrong [...] I reviewed the Ct with radiology at [facility]. There does appear to be RIJ thrombus. [...] MD [facility] [place] [address] Maricarmen Payton APRN [address] [place] [address] [place] [address] 03/05/2022 Infusion Hematology and Oncology Scheduled Orders Name [...] site documented in this encounter Care Teams Bisque Tile Burner Relationship Specialty Start Date End Date None PCP - General 12/03/19 None documented as of this encounter
--- OUTSIDE RECORDS SUMMARY | 2022-03-05 01:48 | XMS_ITS | Encounter Summary ---
:1940 Author Organization [facility] [place] [address] Care Team Providers Name Role Phone None Primary Care Provider Unavailable Encounter Details Date Type Department Care Team Description 02/19/2022 TH Visit Hematology and Michael Romero Adenocarci noma of small (TeleHealth) Oncology at [facility] MD Indy intestine, stage 4 [facility] [address] [place] [address] [place], [place] [phone] [facility] Social History Tobacco Use Types Packs/Day Years Used Date Smoking Tobacco: Never Smokeless Tobacco: Never Sex Assigned at Date Recorded Not on file documented as of this encounter Last Filed Vital Signs Vital Sign Reading Time Taken Comments Blood Pressure 120/63 02/19/2022 9:34 AM EST Pulse 79 02/19/2022 9:34 AM EST Temperature 36.2 ??C (97.1 ??F) 02/19/2022 9:34 AM EST Respiratory Rate 16 02/19/2022 9:34 AM EST Oxygen Saturation 99% 02/19/2022 9:34 AM EST Inhaled Oxygen Concentration - - Weight 79.9 kg (176 lb 3.2 oz) 02/19/2022 9:34 AM EST Height 160 cm (5' 2.99) 02/19/2022 9:34 AM EST Body Mass Index 31.22 02/19/2022 9:34 AM EST documented in this encounter Progress Notes Michael Romero MD - 02/19/2022 9:30 AM EST Subjective Patient ID: Joy Armstrong is 81 [...] of significant intra abdominal adhesions Path ([facility] review) - Omentum, mass, [...] 05/26/21 - Began therapy with Folfox, s/p 16 cycles. Oxaliplatin omitted beginning with cycle [address] c/a/p 02/10/22 - Impression: 1. Stable postsurgical changes in the abdomen with a stable focus of anterior right lower peritoneal thickening. No new mass lesion to suggest local recurrence 2. No evidence of metastatic disease in the chest, abdomen or pelvis 3. Cholelithiasis and choledocholithiasis with a small nonobstructing calculus in the cystic duct. 4. Large hiatal hernia again noted 5. Hepatic steatosis 6. Mild bronchitis and emphysema suggested 2. Hypothyroidism 3. Hyperlipidemia 4. ELVER 5. Bowel perforation which pt's thinks was related to a colonoscopy. Required emergent surgery. 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 The history is summarized above. She is receiving chemotherapy with Folfox. As I am on the inpatient service at [facility] and unable to be in [facility], this is a TeleHealth visit. Joy is accompanied to clinic today by her . She feels well overall. She has a runny nose. She has been active. Her energy level is pretty good most of the time. She had a couple of days with more fatigue. She has no abdominal pain. Her bowels are regular this week. After treatment, she hasdiarrhea. 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 She also notices some in her feet toward bedtime. She is not taking any new medications. The swelling that she had in the neck is gone. Soc Hx: , lives in [place], [place] Tob - Never Etoh - None Worked as [employer]. Fam Hx: Father - Mother - breast [...] normal. Labs: WBC/ANC - 2., Hgb/Hct - 12.8/38.6, Plts - 214,000. BUN/Cr - 14/0.9. Alk phos - 152, Alb- 3.1, AST/ALT - 193/142. Lytes and LFTs o/w unremarkable CEA 01/29/22 4.5 01/01/22 4.2 12/18/21 3.8 12/04/21 3.1 11/20/21 3.7 11/06/21 3.8 10/23/21 4.4 10/09/21 4.0 09/25/21 4.3 09/11/21 3.8 08/28/21 3.4 08/21/21 4.3 08/07/21 5.1 07/24/21 4.2 07/10/21 6.7 06/26/21 8.2 06/12/21 3.8 05/26/21 3.1 04/22/21 3.6 10/26/19 1.5 Doppler US, discussed with radiology - [facility] thrombosis Assessment & Plan Joy Armstrong [...] the pelvis. She was [place] [facility] and [...] 05/26/21 she began therapy with Folfox, s/p 16 cycles. Oxaliplatin omitted beginning with cycle 11. A restaging CT was done on 02/10/22 and is stable. Of concern today is the transaminase elevation. She is not on any new medications and the CT does not show hepatic abnormalities to explain this. She has been feeling generally well except for little bit of a runny nose. Her WBC is also low. I wonder if she may have a mild viral infection. We will plan to hold therapy today. She is please about this as it should allow her to feel well for the holiday. I will recheck her LFTs next week and plan to seeher in two weeks. She is on eliquis for a mediport related thrombosis. The swelling of the neck has resolved. NGS was performed on the omental biopsy - BRAF [id number] mutation. documented in this encounter Plan of Treatment Upcoming Encounters Date Type Specialty Care Team Description 03/05/2022 Office Visit Hematology and Oncology Michael Romero MD [facility] [place] [address] LaRozMaricarmen abreu APRN [address] [place] [address] [place] [address] 03/05/2022 Infusion Hematology and Oncology documented as of this encounter Visit Diagnoses Diagnosis Adenocarcinoma of small intestine, stage 4 Malignant neoplasm of small intestine, u nspecified site Adenocarcinoma of small intestine, stage 4 Malignant neoplasm of small intestine, u nspecified site documented in this encounter Care Teams Bilingual Student Tutor Relationship Specialty Start Date End Date None PCP - General 12/03/19 None documented as of this encounter
--- OUTSIDE RECORDS SUMMARY | 2022-03-05 01:48 | XMS_ITS | Encounter Summary ---
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 Soc Hx: , lives in [place], [place] Tob - Never Etoh - None Worked as [employer]. Fam Hx: Father - Mother - breast [...] 1.5 Doppler US, discussed with radiology - [facility] thrombosis Assessment & Plan Joy [...] the pelvis. She was seen at [facility] and underwent resection [...] I reviewed the Ct with radiology at [facility]. There does appear to be RIJ thrombus. [...] [facility] [place] [address] Maricarmen Payton, [address] [place] [address] 03/05/2022 Infusion Hematology and Oncology Scheduled Orders [...] cystitis without hematuria Acute cystitis Urinary frequency Adenocarcinoma of small intestine, stage 4 Malignant neoplasm of small intestine, u nspecified site documented in this encounter Care Teams Child Care Leader Relationship Specialty Start Date End Date None PCP - General 12/03/19 None documented as of this encounter
--- OUTSIDE RECORDS SUMMARY | 2022-03-05 01:48 | XMS_ITS | Encounter Summary ---
:1940 [place] [address] Care Team Providers Name Role Phone None Primary Care Provider Unavailable Encounter Details Date Type Department Care Team Description 12/04/2021 Office Visit Hematology/Oncology Lissy Luna RD Primary colon cancer at [facility] with metastasis to [address] other site [place], [place] HEMATOLOGY AND [address] ONCOLOGY [phone] [place], [place] [address] Social History Tobacco Use Types [...] fairly poor. She was not able to hop picker the Boost that was ordered for her [...] not significant. Estimated needs based on 79.2 [id number] kcals (25-30 kcal/kg) 79-119 g protein (1-1.5 [...] Michael Romero MD [facility] [place] [address] Maricarmen Payton APRN [address] [place] [address] [place] [address] 03/05/2022 Infusion Hematology and Oncology documented as of this encounter Visit Diagnoses Diagnosis Primary colon cancer with metastasis to other site Adenocarcinoma of small intestine, stage 4 Malignant neoplasm of small intestine, u nspecified site documented in this encounter Care Teams Instructional Consultant Relationship Specialty Start Date End Date None PCP - General 12/03/19 None documented as of this encounter
--- OUTSIDE RECORDS SUMMARY | 2022-03-05 01:48 | XMS_ITS | Encounter Summary ---
:1940 Author Organization [facility] [place] [address] Care Team Providers Name Role Phone None Primary Care Provider Unavailable Encounter Details Date Type Department Care Team Description 02/19/2022 Travel Social History Tobacco Use Types Packs/Day Years Used Date Smoking Tobacco: Never Smokeless Tobacco: Never Sex Assigned at Date Recorded Not on file documented as of this encounter Plan of Treatment Upcoming Encounters Date Type Specialty Care Team Description 03/05/2022 Office Visit Hematology and Oncology Michael Romero MD [facility] [place] [address] Maricarmen Payton [address] HEMATOLOGY AND [place], [place] [address] 03/05/2022 Infusion Hematology and Oncology documented as of this encounter Visit Diagnoses Not on filedocumented in this encounter Care Teams Net Programmer Analyst Relationship Specialty Start Date End Date None PCP - General 12/03/19 None documented as of this encounter
--- OUTSIDE RECORDS SUMMARY | 2022-03-05 01:48 | XMS_ITS | Encounter Summary ---
:1940 Author Organization [facility] [place] [address] Care Team Providers Name Role Phone None Primary Care Provider Unavailable Encounter Details Date Type Department Care Team Description 01/01/2022 Orders Only Hematology/Oncology at [facility] [address] [place] [address] MEDICAL ONCOLOGY [facility] [id number] [phone] Social History Tobacco Use Types Packs/Day Years Used Date Smoking Tobacco: Never Smokeless Tobacco: Never Sex Assigned at Date Recorded Not on file documented as of this encounter Plan of Treatment Upcoming Encounters Date Type Specialty Care Team Description 03/05/2022 Office Visit Hematology and Oncology Michael Romero MD [facility] [place] [address] Maricarmen Payton PLANT TECH [address] [place] [address] [place] [address] 03/05/2022 Infusion Hematology and Oncology documented as of this encounter Visit Diagnoses Not on filedocumented in this encounter Care Teams Grant Specialist Relationship Specialty Start Date End Date None PCP - General 12/03/19 None documented as of this encounter
--- OUTSIDE RECORDS SUMMARY | 2022-03-05 01:48 | XMS_ITS ---
:1940 Author Organization [facility] [place] [address] Care Team Providers Name Role Phone None Primary Care Provider Unavailable Active Problems Problem Noted Date Primary colon cancer with metastasis to other site 07/2021 Current Oncology [facility] COLORECTAL CANCER - FOLFOX-6 (14 DAY)Plan Start Date:05/26/2021 Plan Provider:Michael Romero MD Linked Problems Primary colon cancer with metastasis to other site Treatment Medications Current Day (Day 1, Cycle 17 - Next Da y (Day 3, Cycle 17 Planned for 03/05/2022) - Planned for 03/07/2022) dexAMETHasone (PF) (Decadron) dexAMETHasone (PF) (Decadron) Home Infusion: Pump 10 mg/mLfluorouraciL (10 mg/mL) injection 10 Disconnect (ADRUCIL)fluorouraciL mgfluorouraciL (ADRUCIL) chemo (AdruciL) in sodium chloride injection 249 mgfluorouraciL 0.9% 138 mL infusion (46 Hour (AdruciL) in sodium chloride - For Home Use)leucovorin 0.9% 138 mL infusion (46 Hour (Wellcovorin) in dextrose 5% - For Home Use) 2,244 or sodium chloride 0.9% for mgleucovorin 350 mg in infusionOXALIplatin dextrose 5% 85 mL infusion (Eloxatin) in dextrose 5% 250 mL infusionPump Disconnect: Home Infusion Past Plans No past plan information found. Radiation Treatments No radiation treatments are documented for this patient in [facility]. Treatments may have been administered in another system.
--- OUTSIDE RECORDS SUMMARY | 2022-03-05 01:48 | XMS_ITS | Encounter Summary ---
:1940 Author Organization [facility] [place] [address] Care Team Providers Name Role Phone None Primary Care Provider Unavailable Reason for Referral Diagnostic Test (Routine) - Authorized Specialty Diagnoses / Procedures Referred By Contact Refer red To Contact Radiology Diagnoses Primary colon cancer with metastasis to other site Maricarmen Payton APRN Procedures CT Chest Abdomen Pelvis w Contrast (Generic) [address] [place] [address] HEMATOLOGY AND ONGOL [place], [place] [address] Referral ID Status Reason Start Expiration Visits Visits Date Date Requested Authorized [id number] Authorized Specialty 07/31/2023 1 1 Service 2 Requested Encounter Details Date Type Department Care Team Description 01/29/2022 Office Visit Hematology/Oncology Aaron Romero MD [facility] [place] [address] Primary colon cancer at [facility] Mckenna Farris APRN [address] [place] [address] [place] [address] with metastasis to [address] [place] [address] [place] [phone] Social History Tobacco Use Types Packs/Day Years Used Date Smoking Tobacco: Never Smokeless Tobacco: Never Sex Assigned at Date Recorded Not on file documented as of this encounter Last Filed Vital Signs Vital Sign Reading Time Taken Comments Blood Pressure 123/66 01/29/2022 8:56 AM EDT Pulse 89 01/29/2022 8:56 AM EDT Temperature 36.1 ??C (96.9 ??F) 01/29/2022 8:56 AM EDT Respiratory Rate 18 01/29/2022 8:56 AM EDT Oxygen Saturation 99% 01/29/2022 8:56 AM EDT Inhaled Oxygen Concentration - - Weight 79.6 kg (175 lb 6.4 oz) 01/29/2022 8:56 AM EDT Height 160 cm (5' 2.99) 01/29/2022 8:56 AM EDT Body Mass Index 31.08 01/29/2022 8:56 AM EDT documented in this encounter Progress Notes Maricarmen Payton, PROCESS IMPROVEMENT ENGINEER - 01/29/2022 9:00 AM EDT Subjective Patient ID: Joy [...] because of significant intra abdominal adhesions Path ([facility] review) - Omentum, mass, excision: - [...] above. She is receiving chemotherapy with Folfox - oxaliplatin has been omitted since C11 Last seen 01/01/22 - cancelled appt on 01/15 because she wanted to take a couple weeks off. Enjoyed extra time off of therapy. A couple of out of it moments, but otherwise did well. Her appetite improved, she had more energy, and was able to be more active. concerned about continuing every two weeks. She denies any fevers, chills or signs of infection. She occasionally has nausea when she first getsup in the morning and sometimes smells will trigger it. No swelling in right side of neck. She is taking the Eliquis 5mg BID as prescribed. No bleeding. She continues to struggle with the intermittent diarrhea. Imodium does help her. No cough, shortness of breath, chest pain or edema. She still has the neuropathy in her fingers and feet. She does feel this is worsening. Not painful, but more numb, feels like she is walking on sponges. Has not had any falls, does not report other balance issues. She does not report any current mucositis. Dentures fitting okay. Soc Hx: , lives in [place], [place] Tob - Never Etoh - None Worked as [employer]. Fam Hx: Father - Mother - breast and colon cancer Sibs - brother with lung cancer; sister had a colectomy due to colon polyps, then had a cancer in her liver (unsure if Children - GM - colon cancer Mar aunt had breast cancer Pat GF had cancer (intestinal vs stomach) Review of Systems Constitutional: Negative for activity change, appetite change, fever and unexpected weight change. HENT: Negative. Respiratory: Negative. Negative for cough. Cardiovascular: Positive for leg swelling. Negative for chest pain. Gastrointestinal: Positive for diarrhea and nausea. Negative for abdominal pain and vomiting. Genitourinary: Negative for dysuria. Musculoskeletal: Negative. Skin: Negative. Dry skin Neurological: Positive for numbness. Hematological: Negative. Psychiatric/Behavioral: Negative. Objective Physical Exam Vitals reviewed. Constitutional: General: She is not in acute distress. HENT: Head: Normocephalic and atraumatic. Mouth/Throat: Pharynx: Oropharynx is clear. No oropharyngeal exudate. Eyes: General: No scleral icterus. Conjunctiva/sclera: Conjunctivae normal. Cardiovascular: Rate and Rhythm: Normal rate and [...] lower leg: Edema present. Comments: Bilateral LE edema, baseline for patient Lymphadenopathy: Cervical: No cervical adenopathy. Skin: General: Skin is warm and dry. Findings: No rash. Neurological: General: No focal deficit present. Mental Status: She is alert. Coordination: Coordination normal. Psychiatric: Mood and Affect: Mood normal. Behavior: Behavior normal. Patient Vitals for the past 24 hrs: Temp Pulse Resp BP SpO2 01/29/22 0856 36.1 ??C (96.9 ??F) 89 18 123/66 99 % Review of Laboratory data: 01/29/22: WBC 5.77, Hgb/Hct 13.1/40.5, Plt 206, ANC 3000, Na 141, K+ 3.9, BUN/Creat 19/0.9, Glucose 101, Ca 9.5, T. Bili 0.3, AST 31, ALT 35, Alk phos 99, Albumin 3.3 CEA 01/29/22 pending 01/01/22 4.2 12/18/21 3.8 12/04/21 3.1 11/20/21 3.7 11/06/21 3.8 10/23/21 4.4 10/09/21 4.0 09/25/21 4.3 09/11/21 3.8 08/28/21 3.4 08/21/21 4.3 08/07/21 5.1 07/24/21 4.2 07/10/21 6.7 06/26/21 8.2 06/12/21 3.8 05/26/21 3.1 04/22/21 3.6 10/26/19 1.5 Doppler US, discussed with radiology - [facility] thrombosis Assessment & Plan Joy Armstrong [...] in the pelvis. She was seen at [facility] and underwent resection on 12/05/2019 - path [...] On 05/26/21 she began therapy with Folfox, s/p15 cycles. Oxaliplatin omitted beginning with cycle 11. A restaging CT was done on 11/26/21 and was stable. Therefore we plan to continue the current therapy. NGS was performed on the omental biopsy - BRAF [id number] mutation. # Right IJ thrombus- Swelling in R neck has resolved. Mediport site looks good and per report is working well. She is taking the Eliquis 5mg twice daily. # Diarrhea- Continues to have intermittent diarrhea- continue to manage with imodium prn # Forgetfulness- does not feel this is worsening. 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 Potentially worsening, but not interfering witheveryday functioning. Joy enjoyed having a small treatment break, and we discussed trying a three week interval this cycle, she and her are agreeable. Labs and toxicities assessed today and are acceptable to continue treatment. We will see her back in 3 weeks with CBC,CMP, CEA, and a CT scan and then she and Dr. Romero can discuss a change in treatment frequency. Joy voiced understanding of the plan and was given an opportunity to ask questions which I answered to the best of my ability. Joy understands she can call the clinic between visits with any questions/concerns or new symptoms. Maricarmen Payton APRN documented in this encounter Plan of Treatment Upcoming Encounters Date Type Specialty Care Team Description 03/05/2022 Office Visit Hematology and Oncology Michael Romero MD [facility] [place] [address] Maricarmen Payton APRN [address] [place] [address] [place] [address] 03/05/2022 Infusion Hematology and Oncology Scheduled Orders Name Type Priority Associated Diagnoses Order S chedule CT Chest Abdomen Imaging Routine Primary colon cancer Exp ected: 02/12/2022 Pelvis w Contrast with metastasis to othe r (Approximate), (Generic) site Expires: 2022 documented as of this encounter Visit Diagnoses Diagnosis Primary colon cancer with metastasis to other site Adenocarcinoma of small intestine, stage 4 Malignant neoplasm of small intestine, u nspecified site documented in this encounter Care Teams Human Resource Analyst Relationship Specialty Start Date End Date None PCP - General 12/03/19 None documented as of this encounter
--- OUTSIDE RECORDS SUMMARY | 2022-03-05 01:48 | XMS_ITS | Encounter Summary ---
:1940 Author Organization [facility] [place] [address] Care Team Providers Name Role Phone None Primary Care Provider Unavailable Reason for Visit Reason Comments Chemotherapy Cycle 13 5FU Treatment/Therapy Plan Authorization (Routine) - Authorized Specialty Diagnoses / Procedures Referred By Contact Refer red To Contact Diagnoses Primary colon cancer with metastasis to other site Michael Romero MD Stj Hem Onc Infusion Procedures [facility] AMB ONC GI COLORECTAL CANCER - FOLFOX-6 (14 DAY) [address] [place] [phone] Fax: Referral ID Status Reason Start Date Expiration Date Visits V isits Requested Authorized [id number] Authorized 05/08/2021 02/26/2022 99 99 Encounter Details Date Type Department Care Team Description 12/04/2021 Infusion Hematology Oncology at [facility] colon cancer with [facility] metastasis to other site [address] [place] [phone] Social History Tobacco Use Types [...] and Oncology Michael Romero MD [facility] [place] [address] Maricarmen Payton, [address] [place] [address] 03/05/2022 Infusion Hematology and Oncology documented as [...] Routine documented in this encounter Care Teams Educational Psychologist Relationship Specialty Start Date End Date None PCP - General 12/03/19 None documented as of this encounter
--- OUTSIDE RECORDS SUMMARY | 2022-03-05 01:49 | XMS_ITS | Encounter Summary ---
:1940 Author Organization [facility] [place] [address] Care Team Providers Name Role Phone None Primary Care Provider Unavailable Reason for Visit Reason Comments IV Access Port flush Encounter Details Date Type Department Care Team Description 08/21/2021 Infusion Hematology Oncology at [facility] colon cancer with [facility] metastasis to other site [address] [place] [phone] Social History Tobacco Use Types Packs/Day Years Used Date Smoking Tobacco: Never Smokeless Tobacco: Never Sex Assigned at Date Recorded Not on file documented as of this encounter Progress Notes Diann Baker RN - 08/21/2021 11:00 AM EDT INFUSION THERAPY ADMINISTRATION NOTES DIAGNOSIS: colorectal REASON FOR VISIT: MEDIPORT FLUSH ONLY due to neutropenia IV ACCESS: Mediport, accessed at [facility] for port draw GAUGE: 19G BLOOD RETURN: [...] Romero MD [facility] [place] [address] Maricarmen Payton APRN [address] [place] [address] [place] [address] 03/05/2022 Infusion Hematology and Oncology documented as of this encounter Visit Diagnoses Diagnosis Primary colon cancer 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
--- OUTSIDE RECORDS SUMMARY | 2022-03-05 01:49 | XMS_ITS | Encounter Summary ---
:1940 [place] [address] Care Team Providers Name Role Phone None Primary Care Provider Unavailable Encounter Details Date Type Department Care Team Description 10/31/2020 Ancillary Procedure Radiology Library at Jorge Romero [facility] [place] [address] ONCOLOGY [phone] [place], [place] [address] (Wo rk) Social History Tobacco Use Types Packs/Day Years Used Date Smoking Tobacco: Never Smokeless Tobacco: Never Sex Assigned at Date Recorded Not on file documented as of this encounter Plan of Treatment Upcoming Encounters Date Type Specialty Care Team Description 03/05/2022 Office Visit Hematology and Oncology Michael Romero MD [facility] [place] [address] Maricarmen Payton [address] [address] 03/05/2022 Infusion Hematology and Oncology documented as [...] Address City/State/ZIP Code Phon e Number RAD [place], [place] documented in this encounter Visit Diagnoses Not on filedocumented in this encounter Care Teams Tax Consultant Relationship Specialty Start Date End Date None PCP - General 12/03/19 None documented as of this encounter
--- OUTSIDE RECORDS SUMMARY | 2022-03-05 01:49 | XMS_ITS | Encounter Summary ---
:1940 Author Organization [facility] Address [facility] [place] [address] Care Team Providers Name Role Phone None Primary Care Provider Unavailable Encounter Details Date Type Department Care Team Description 11/20/2021 Orders Only Hematology and Michael Romero, Protein -calorie Oncology at [facility] malnutrition, [facility] uns pecified severity [place] [address] ONCOLOGY [phone] [place], [place] [address] Social History Tobacco Use Types Packs/Day Years Used Date Smoking Tobacco: Never Smokeless Tobacco: Never Sex Assigned at Date Recorded Not on file documented as of this encounter Plan of Treatment Upcoming Encounters Date Type Specialty Care Team Description 03/05/2022 Office Visit Hematology and Oncology Michael Romero MD [facility] [place] [address] Maricarmen Payton, [address] [place] [address] 03/05/2022 Infusion Hematology and Oncology documented as of this encounter Visit Diagnoses Diagnosis Protein-calorie malnutrition, unspecifie d severity Adenocarcinoma of small intestine, stage 4 Malignant neoplasm of small intestine, u nspecified site documented in this encounter Care Teams Director Of Product Development Relationship Specialty Start Date End Date None PCP - General 12/03/19 None documented as of this encounter
--- OUTSIDE RECORDS SUMMARY | 2022-03-05 01:49 | XMS_ITS | Encounter Summary ---
:1940 Author Organization [facility] [place] [address] Care Team Providers Name Role Phone None Primary Care Provider Unavailable Encounter Details Date Type Department Care Team Description 07/16/2021 Notes Only Hematology/Oncology at [facility] OFF[facility] OF CARE [address] [place] [phone] Social History Tobacco Use Types Packs/Day Years [...] help was enough. Encourage her to let DEBONING TEAM LEADER or herclinic nurse know next visit and we can explore other resources. Reminded pt of DEBONING TEAM LEADER availability and contact information. Will continue to follow. Supportive Counseling Food insecurity resources Transportation resources documented in this encounter Plan of Treatment Upcoming Encounters Date Type Specialty Care Team Description 03/05/2022 Office Visit Hematology and Oncology Michael Romero MD [facility] [place] [address] Maricarmen Payton [address] [place] [address] 03/05/2022 Infusion Hematology and Oncology documented as of this encounter Visit Diagnoses Not on filedocumented in this encounter Care Teams Optometry Teacher Relationship Specialty Start Date End Date None PCP - General 12/03/19 None documented as of this encounter
--- OUTSIDE RECORDS SUMMARY | 2022-03-05 01:49 | XMS_ITS | Encounter Summary ---
:1940 [place] [address] Care Team Providers Name Role Phone None Primary Care Provider Unavailable Encounter Details Date Type Department Care Team Description 10/04/2020 Ancillary Procedure Radiology Library at Jorge Romero [facility] [place] [address] ONCOLOGY [phone] [place], [place] [address] (Wo rk) Social History Tobacco Use Types Packs/Day Years Used Date Smoking Tobacco: Never Smokeless Tobacco: Never Sex Assigned at Date Recorded Not on file documented as of this encounter Plan of Treatment Upcoming Encounters Date Type Specialty Care Team Description 03/05/2022 Office Visit Hematology and Oncology Michael Romero MD [facility] [place] [address] Maricarmen Payton, [address] [place] [address] 03/05/2022 Infusion Hematology and Oncology documented as [...] Address City/State/ZIP Code Phon e Number RAD [place], [place] documented in this encounter Visit Diagnoses Not on filedocumented in this encounter Care Teams Director Of Programming Relationship Specialty Start Date End Date None PCP - General 12/03/19 None documented as of this encounter
--- OUTSIDE RECORDS SUMMARY | 2022-03-05 01:49 | XMS_ITS | Encounter Summary ---
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 Michael Romero MD Stj Hem Onc Infusion Procedures [facility] GI COLORECTAL CANCER - FOLFOX-6 (14 DAY) [address] [place] [phone] Fax: Referral ID Status Reason Start Date Expiration Date Visits V isits Requested Authorized [id number] Authorized 05/08/2021 02/26/2022 99 99 Encounter Details Date Type Department Care Team Description 06/26/2021 Infusion Hematology Oncology at [facility] colon cancer with [facility] metastasis to other site [address] [place] [phone] Social History Tobacco Use Types [...] Romero MD [facility] DR [place]OG[place] [address] Maricarmen Payton, MANAGER ELIGIBILITY[address] [place] [address] 03/05/2022 Infusion Hematology and Oncology documented as [...] documented in this encounter Care Teams Loss Mitigation Specialist Relationship Specialty Start Date End Date None PCP - General 12/03/19 None documented as of this encounter
--- OUTSIDE RECORDS SUMMARY | 2022-03-05 01:49 | XMS_ITS | Encounter Summary ---
:1940 [place] [address] Care Team Providers Name Role Phone None Primary Care Provider Unavailable Encounter Details Date Type Department Care Team Description 10/23/2021 Office Visit Hematology/Oncology Michael Romero Stage IV adenocarcinoma at [facility] MD [place] of small bowel [address] [place] [phone] ONCOLOGY [phone] [place] [phone] Social History Tobacco Use Types Packs/Day Years [...] because of significant intra abdominal adhesions Path ([facility] review) - Omentum, mass, excision: - [...] is stable. Soc Hx: , lives in [place], [place] Tob - Never Etoh - None Worked as [employer]. Fam Hx: Father - Mother - breast [...] [facility] [place] [address] Maricarmen Payton, [address] [place] [address] 03/05/2022 Infusion Hematology and Oncology documented as of this encounter Visit Diagnoses Diagnosis Stage IV adenocarcinoma of small bowel Malignant neoplasm of small intestine, u nspecified site Adenocarcinoma of small intestine, stage 4 Malignant neoplasm of small intestine, u nspecified site documented in this encounter Care Teams Mechanical Engineer Relationship Specialty Start Date End Date None PCP - General 12/03/19 None documented as of this encounter
--- OUTSIDE RECORDS SUMMARY | 2022-03-05 01:49 | XMS_ITS | Encounter Summary ---
:1940 Author Organization [facility] [place] [address] Care Team Providers Name Role Phone None Primary Care Provider Unavailable Encounter Details Date Type Department Care Team Description 08/21/2021 Office Visit Hematology/Oncology Aaron Romero MD [facility] [place] [address] Adenocarcinoma of small at [facility], Mckenna Tracey APRN [address] [place] [address] [place] [address] intestine, stage [address] [place] [phone] Social History Tobacco Use Types Packs/Day [...] in this encounter Progress Notes Mckenna Farris, DEVELOPMENT SPECIALIST - 08/21/2021 10:30 AM EDT Subjective Patient [...] because of significant intra abdominal adhesions Path ([facility] review) - Omentum, mass, excision: - Metastatic [...] eyes today. Soc Hx: , lives in [place], [place] Tob - Never Etoh - None Worked as [employer]. Fam Hx: Father - Mother - breast [...] pelvis. She was seen at [facility] and underwent resection on 12/05/2019 - path [...] the absence of cold, laryngeal dysesthesia, fatigue, angina/MN, hypersensitivity reactions and others.?She was given informationalhandouts [...] Michael Romero MD [facility] DR ONCOLOGY [facility] [place] [address] Maricarmen Payton APRN [address] [place] [address] [place] [address] 03/05/2022 Infusion Hematology and Oncology documented as of this encounter Visit Diagnoses Diagnosis Adenocarcinoma of small intestine, stage 4 Malignant neoplasm of small intestine, u nspecified site Adenocarcinoma of small intestine, stage 4 Malignant neoplasm of small intestine, u nspecified site documented in this encounter Care Teams Electrode Cleaner Relationship Specialty Start Date End Date None PCP - General 12/03/19 None documented as of this encounter
--- OUTSIDE RECORDS SUMMARY | 2022-03-05 01:49 | XMS_ITS | Encounter Summary ---
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 ?? She was seen at [facility] and underwent resection on 12/05/2019 - path [...] metastatic abdominal nodules. Joy returns to the [facility] oncology clinic in [facility] today accompanied by her Romero for review [...] done about an hour before treatment at [facility]. She had labs 05/20/21 which will suffice [...] metastatic abdominal nodules. Joy returns to the [facility] oncology clinic in [facility] today accompanied by her Romero for review of labs andthe new chemotherapy treatment plan. She had previously met with Dr. Romero to discuss chemo therapyoptions. (No chemotherapy teaching sessions were scheduled.) CBC and CMP were reviewed with Joy and Romero today. They verbalized an understanding of the chemotherapy treatment plan. Prochlorperazine Prescription sent to [facility]. C1D1 Folfox 05/26/21. Pump disconnect teaching planned for C1. 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
--- OUTSIDE RECORDS SUMMARY | 2022-03-05 01:49 | XMS_ITS | Encounter Summary ---
:1940 Author Organization [place] [address] Care Team Providers Name Role Phone None Primary Care Provider Unavailable Encounter Details Date Type Department Care Team Description 06/26/2021 Office Visit Hematology/Oncology Aaron Romero MD [facility] [place] [address] [facility] [address] [place] [address] [place] [address] of small bowel [address] [place] [phone] Social History Tobacco Use Types Packs/Day [...] in this encounter Progress Notes Mckenna Farris, ANIMAL NUTRITION CONSULTANT - 06/26/2021 10:00 AM EDT Subjective Patient [...] the pelvis. ?? She was seen at [facility] [...] questions/concerns or new symptoms. Mckenna Farris MSN, ANIMAL NUTRITION CONSULTANT, AOCNP Medical Oncology documented in this encounter Plan of Treatment Upcoming Encounters Date Type Specialty Care Team Description 03/05/2022 Office Visit Hematology and Oncology Michael Romero MD [facility] [place] [address] Maricarmen Payton APRN [address] [place] [address] [place] [address] 03/05/2022 Infusion Hematology and Oncology documented as of this encounter Visit Diagnoses Diagnosis Stage IV adenocarcinoma of small bowel Malignant neoplasm of small intestine, u nspecified site Adenocarcinoma of small intestine, stage 4 Malignant neoplasm of small intestine, u nspecified site documented in this encounter Care Teams Peanut Blancher Relationship Specialty Start Date End Date None PCP - General 12/03/19 None documented as of this encounter
--- OUTSIDE RECORDS SUMMARY | 2022-03-05 01:49 | XMS_ITS | Encounter Summary ---
:1940 [place] [address] Care Team Providers Name Role Phone None Primary Care Provider Unavailable Encounter Details Date Type Department Care Team Description 10/09/2021 Office Visit Hematology/Oncology Michael Romero Adeno carcinoma of small at [facility] MD Indy intestine, stage 4 [address] [facility] [phone] ONCOLOGY [phone] [place], [place] [address] Social History Tobacco Use Types [...] intra abdominal adhesions Path ([facility] [place]) - Omentum, mass, excision: - Metastatic [...] is stable. Soc Hx: , lives in [place], [place] Tob - Never Etoh - None Worked as [employer]. Fam Hx: Father - Mother - breast [...] in the pelvis. She was seen at [facility] and underwent resection on 12/05/2019 - path [...] the absence of cold, laryngeal dysesthesia, fatigue, angina/OK, hypersensitivity reactions and others.?She was given informationalhandouts [...] MD [facility] [place] [address] Maricarmen Payton [address] [address] 03/05/2022 Infusion Hematology and Oncology documented as of this encounter Visit Diagnoses Diagnosis Adenocarcinoma of small intestine, stage 4 Malignant neoplasm of small intestine, u nspecified site Adenocarcinoma of small intestine, stage 4 Malignant neoplasm of small intestine, u nspecified site documented in this encounter Care Teams Wet Roaster Relationship Specialty Start Date End Date None PCP - General 12/03/19 None documented as of this encounter
--- OUTSIDE RECORDS SUMMARY | 2022-03-05 01:49 | XMS_ITS | Encounter Summary ---
:1940 [place] [address] Care Team Providers Name Role Phone None Primary Care Provider Unavailable Encounter Details Date Type Department Care Team Description 07/22/2021 Ancillary Procedure Radiology Library Michael Romero Canceled (D-SCHED at [facility] MD Indy ERROR / CORRECTION ) [facility] [address] [place] [address] [place], [place] [phone] Social History Tobacco Use Types Packs/Day Years Used Date Smoking Tobacco: Never Smokeless Tobacco: Never Sex Assigned at Date Recorded Not on file documented as of this encounter Plan of Treatment Upcoming Encounters Date Type Specialty Care Team Description 03/05/2022 Office Visit Hematology and Oncology Michael Romero MD [facility] [place] [address] Maricarmen Payton QUARRY SUPERVISOR [employer] [address] [place] [address] H[place] [address] 03/05/2022 Infusion Hematology and Oncology documented as of this encounter Visit Diagnoses Not on filedocumented in this encounter Care Teams Customer Solutions Representative Relationship Specialty Start Date End Date None PCP - General 12/03/19 None documented as of this encounter
--- OUTSIDE RECORDS SUMMARY | 2022-03-05 01:49 | XMS_ITS | Encounter Summary ---
:1940 Author Organization [facility] [place] [address] Care Team Providers Name Role Phone None Primary Care Provider Unavailable Reason for Referral Diagnostic Test (Routine) - Authorized Specialty Diagnoses / Procedures Referred By Contact Refer red To Contact Radiology Diagnoses Stage IV adenocarcinoma of small bowel Michael Romero MD Procedures CT Chest Abdomen Pelvis w Contrast (Generic) [facility] [place] [address] Referral ID Status Reason Start Expiration Visits Visits Date Date Requested Authorized [id number] Authorized Specialty 11/20/2021 05/23/2023 1 1 Service Requested Encounter Details Date Type Department Care Team Description 11/20/2021 Office Visit Hematology/Oncology Michael Romero Stage IV adenocarcinoma at [facility] MD Indy of small bowel [address] [place] [phone] ONCOLOGY [phone] [place], [place] [address] Social History Tobacco Use Types [...] because of significant intra abdominal adhesions Path ([facility] review) - Omentum, [...] left today. Soc Hx: , lives in [place], [place] Tob - Never Etoh - None Worked as [employer]. Fam Hx: Father - Mother - breast [...] Michael Romero MD [facility] [place] [address] [address] [place] [address] 03/05/2022 Infusion Hematology and Oncology Scheduled Orders [...] site documented in this encounter Care Teams Catalyst Operator Gasoline Relationship Specialty Start Date End Date None PCP - General 12/03/19 None documented as of this encounter
--- OUTSIDE RECORDS SUMMARY | 2022-03-05 01:49 | XMS_ITS | Encounter Summary ---
:1940 [place] [address] Care Team Providers Name Role Phone None Primary Care Provider Unavailable Encounter Details Date Type Department Care Team Description 11/06/2021 Office Visit Hematology/Oncology Michael Romero Stage IV adenocarcinoma at [facility] MD Indy of small bowel [address] [place] [phone] ONCOLOGY [phone] [place] [phone] Social History Tobacco Use Types Packs/Day Years [...] because of significant intra abdominal adhesions Path ([facility] review) - Omentum, mass, excision: - Metastatic [...] pounds lower. Soc Hx: , lives in [place], [place] Tob - Never Etoh - None Worked as [employer]. Fam Hx: Father - Mother - breast [...] in the pelvis. She was seen at [facility] and underwent resection on 12/05/2019 [...] Romero MD [facility] [place] [address] [address] [address] 03/05/2022 Infusion Hematology and Oncology documented as of this encounter Visit Diagnoses Diagnosis Stage IV adenocarcinoma of small bowel Malignant neoplasm of small intestine, u nspecified site Adenocarcinoma of small intestine, stage 4 Malignant neoplasm of small intestine, u nspecified site documented in this encounter Care Teams Manager Software Relationship Specialty Start Date End Date None PCP - General 12/03/19 None documented as of this encounter
--- OUTSIDE RECORDS SUMMARY | 2022-03-05 01:49 | XMS_ITS | Encounter Summary ---
:1940 Author Organization [place] [address] Care Team Providers Name Role Phone None Primary Care Provider Unavailable Encounter Details Date Type Department Care Team Description 04/01/2021 External Results Medical Records Provider, [facility] [place] [phone] Social History Tobacco Use Types Packs/Day Years Used Date Smoking Tobacco: Never Smokeless Tobacco: Never Sex Assigned at Date Recorded Not on file documented as of this encounter Plan of Treatment Upcoming Encounters Date Type Specialty Care Team Description 03/05/2022 Office Visit Hematology and Oncology Michael Romero MD [facility] [place] [address] Maricarmen Payton, [address] HEMATOLOGY AND [place], [place] [address] 03/05/2022 Infusion Hematology and Oncology documented as [...] on filedocumented in this encounter Care Teams Warrant Clerk Relationship Specialty Start Date End Date None PCP - General 12/03/19 None documented as of this encounter
--- OUTSIDE RECORDS SUMMARY | 2022-03-05 01:49 | XMS_ITS | Encounter Summary ---
:1940 Author Organization [place] [address] Care Team Providers Name Role Phone None Primary Care Provider Unavailable Reason for Referral Diagnostic Test (Routine) - Authorized Specialty Diagnoses / Procedures Referred By Contact Refer red To Contact Radiology Diagnoses Adenocarcinoma of small intestine, stage 4 Michael Romero MD Procedures CT Chest Abdomen Pelvis w Contrast (Generic) [facility] [place] [address] Referral ID Status Reason Start Expiration Visits Visits Date Date Requested Authorized [id number] Authorized Specialty 09/25/2021 03/27/2023 1 1 Service Requested Encounter Details Date Type Department Care Team Description 09/25/2021 Office Visit Hematology/Oncology Michael Romero Adeno carcinoma of small at [facility] MD Indy intestine, stage [address] [place] [phone] ONCOLOGY [phone] [place], [place] [address] Social History Tobacco Use Types Packs/Day Years [...] the same. Soc Hx: , lives in [place], [place] Tob - Never Etoh - None Worked as [employer]. Fam Hx: Father - Mother - breast [...] the pelvis. She was seen at [facility] and underwent resection on [...] the absence of cold, laryngeal dysesthesia, fatigue, angina/[place], hypersensitivity reactions and others.?She was given informationalhandouts [...] Oncology Michael Romero MD [facility] [place] [address] Maricarmen Payton APRN [address] [place] [address] [place] [address] 03/05/2022 Infusion Hematology and Oncology Scheduled Orders [...] site documented in this encounter Care Teams Propulsion Generator Repairer Relationship Specialty Start Date End Date None PCP - General 12/03/19 None documented as of this encounter
--- OUTSIDE RECORDS SUMMARY | 2022-03-05 01:49 | XMS_ITS | Encounter Summary ---
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 Michael Romero MD St[facility] Onc Infusion Procedures [facility] COLORECTAL CANCER - FOLFOX-6 (14 DAY) [address] [place] [phone] Fax: Referral ID Status Reason Start Date Expiration Date Visits V isits Requested Authorized [id number] Authorized 05/08/2021 02/26/2022 99 99 Encounter Details Date Type Department Care Team Description 10/09/2021 Infusion Hematology Oncology at [facility] colon cancer with [facility] metastasis to other site [address] [place] [phone] Social History Tobacco Use Types [...] 5FU infusion via CADD pump provided by [email or web address] SUBJECTIVE Joy offers no complaints. OBJECTIVE LAB [...] infusion chemotherapy via CADD pump provided by [employer]. Fluorouracil 2292 mg over 46 hours, IV [...] Romero MD [facility] [place] [address] Maricarmen Payton, [address] [place] [address] 03/05/2022 Infusion Hematology and Oncology documented as [...] Routine documented in this encounter Care Teams Jitterbug Operator Relationship Specialty Start Date End Date None PCP - General 12/03/19 None documented as of this encounter
--- OUTSIDE RECORDS SUMMARY | 2022-03-05 01:49 | XMS_ITS | Encounter Summary ---
:1940 Author Organization [facility] [place] [address] Care Team Providers Name Role Phone None Primary Care Provider Unavailable Encounter Details Date Type Department Care Team Description 09/11/2021 Office Visit Hematology/Oncology Viktoriya Álvarez colon cancer at [facility] B, ALEMITE OPERATOR with metastasis to [address] [place] [address] [place] [address] HEMATOLOGY/ONCOLOGY [phone] DEPT. [place], [place] [address] (Wo rk) Social History Tobacco [...] significant intra abdominal adhesions Path ([facility]) - Omentum, mass, excision: [...] pelvis. ?? [facility] [...] in the absence of cold, laryngealdysesthesia, fatigue, angina/[place], hypersensitivity reactions and others.?She??was given informational handouts [...] BRAF V600E mutation. Viktoriya Calabrese. Henri DNP, ALEMITE OPERATOR, AGACNP-BC, AOCNP, ACHPN Division of Hematology Oncology-Gastrointestinal Belt Builder HelperCurriculum And Assessment Coordinatorcaptain fishing vessel [facility] documented in this encounter Plan of Treatment Upcoming Encounters Date Type Specialty Care Team Description 03/05/2022 Office Visit Hematology and Oncology Michael Romero MD [facility] [place] [address] Maricarmen Payton APRN [address] [place] [address] [place] [address] 03/05/2022 Infusion Hematology and Oncology documented as of this encounter Visit Diagnoses Diagnosis 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
--- OUTSIDE RECORDS SUMMARY | 2022-03-05 01:49 | XMS_ITS | Encounter Summary ---
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 Michael Romero MD Stj Hem Onc Infusion Procedures [facility] AMB ONC GI COLORECTAL CANCER - FOLFOX-6 (14 DAY) [address] [place] [phone] Fax: Referral ID Status Reason Start Date Expiration Date Visits V isits Requested Authorized [id number] Authorized 05/08/2021 02/26/2022 99 99 Encounter Details Date Type Department Care Team Description 10/23/2021 Infusion Hematology Oncology at [facility] colon cancer with [facility] metastasis to other site [address] [place] [phone] Social History Tobacco Use Types [...] via CADD pump provided by [employer]. Fluorouracil 2280 mg over 46 hours, IV [...] MD [facility] [place] [address] Maricarmen Payton, [address] [place] [address] 03/05/2022 Infusion Hematology and Oncology documented as [...] Routine documented in this encounter Care Teams Cutting Inspector Relationship Specialty Start Date End Date None PCP - General 12/03/19 None documented as of this encounter
--- OUTSIDE RECORDS SUMMARY | 2022-03-05 01:49 | XMS_ITS | Encounter Summary ---
:1940 Author Organization [facility] [place] [address] Care Team Providers Name Role Phone None Primary Care Provider Unavailable Encounter Details Date Type Department Care Team Description 08/28/2021 Orders Only Hematology and Oncology at [place] Michael amanda MD [facility] [place] [address] [place] [address] [phone] (Wo rk) Social History Tobacco Use Types Packs/Day Years Used Date Smoking Tobacco: Never Smokeless Tobacco: Never Sex Assigned at Date Recorded Not on file documented as of this encounter Plan of Treatment Upcoming Encounters Date Type Specialty Care Team Description 03/05/2022 Office Visit Hematology and Oncology Michael Romero MD [facility] [place] [address] Maricarmen Payton PRODUCE CLERK [address] [place] [address] [place] [address] 03/05/2022 Infusion Hematology and Oncology documented as of this encounter Visit Diagnoses Not on filedocumented in this encounter Care Teams Instructor Physical Education Relationship Specialty Start Date End Date None PCP - General 12/03/19 None documented as of this encounter
--- OUTSIDE RECORDS SUMMARY | 2022-03-05 01:49 | XMS_ITS | Encounter Summary ---
:1940 Author Organization [facility] Address [facility] [place] [address] Care Team Providers Name Role Phone None Primary Care Provider Unavailable Reason for Visit Reason Onset Date Comments Follow-up 06/29/[address] of flu [place] when chemo complete Encounter Details Date Type Department Care Team Description 06/29/2021 Telephone Hematology/Oncology at [place] Leon RN Follow-up (Incorrect way [facility] when [address] [place] [address] Drive chemo complete) [place] [phone] Social History Tobacco Use Types Packs/Day Years Used Date Smoking Tobacco: Never Smokeless Tobacco: Never Sex Assigned at Date Recorded Not on file documented as of this encounter Miscellaneous Notes Telephone Encounter - Virgiina Leon RN - 06/29/2021 8:30 AM EDT [...] Romero MD [facility] [place] [place] [address] Maricarmen Payton APRN [address] [place] [address] [place] [address] 03/05/2022 Infusion Hematology and Oncology documented as of this encounter Visit Diagnoses Not on filedocumented in this encounter Care Teams Production Graphic Designer Relationship Specialty Start Date End Date None PCP - General 12/03/19 None documented as of this encounter
--- OUTSIDE RECORDS SUMMARY | 2022-03-05 01:49 | XMS_ITS | Encounter Summary ---
:1940 [place] [address] Care Team Providers Name Role Phone None Primary Care Provider Unavailable Encounter Details Date Type Department Care Team Description 05/05/2021 Telephone Hematology and Oncology at [facility] Pricila stewart DO [facility] Slime snow HEMATOLOGY/[place] [address] [place] [address] [phone] (Wo rk) Social History Tobacco Use Types Packs/Day Years Used Date Smoking Tobacco: Never Smokeless Tobacco: Never Sex Assigned at Date Recorded Not on file documented as of this encounter Miscellaneous Notes Telephone Encounter - Pricila Gill DO - 05/05/2021 6:59 PM EST Patient ID: Joy Armstrong : 1940 Call from: Dr. Debbie Méndez, [facility] radiology. Joy Armstrong is a [...] Gill DO Fellow, Hematology and Medical Oncology [facility] Pager: [phone], 05/05/21, 7:02 PM CC: Dr. Romero. documented in this encounter Plan of Treatment Upcoming Encounters Date Type Specialty Care Team Description 03/05/2022 Office Visit Hematology and Oncology Michael Romero MD [facility] [place] [place] [address] Maricarmen Payton, [address] [place] [address] 03/05/2022 Infusion Hematology and Oncology documented as of this encounter Visit Diagnoses Not on filedocumented in this encounter Care Teams Cash Van Salesperson Relationship Specialty Start Date End Date None PCP - General 12/03/19 None documented as of this encounter
--- OUTSIDE RECORDS SUMMARY | 2022-03-05 01:49 | XMS_ITS | Encounter Summary ---
:1940 Author Organization [facility] Address [facility] [place] [address] Care Team Providers Name Role Phone None Primary Care Provider Unavailable Encounter Details Date Type Department Care Team Description 11/20/2021 Orders Only [facility] ARYA malnutrition, [address] [place] [address] [place] [phone] Social History Tobacco Use Types Packs/Day Years Used Date Smoking Tobacco: Never Smokeless Tobacco: Never Sex Assigned at Date Recorded Not on file documented as of this encounter Plan of Treatment Upcoming Encounters Date Type Specialty Care Team Description 03/05/2022 Office Visit Hematology and Oncology Michael Romero MD [facility] [place] [address] Maricarmen Payton APRN [address] [place] [address] HEMATOLOGY AND ONGOLOCY [place], [place] [phone] 03/05/2022 Infusion Hematology and Oncology documented as of this encounter Visit Diagnoses Diagnosis Protein-calorie malnutrition, unspecifie d severity Adenocarcinoma of small intestine, stage 4 Malignant neoplasm of small intestine, u nspecified site documented in this encounter Care Teams District Manager Relationship Specialty Start Date End Date None PCP - General 12/03/19 None documented as of this encounter
--- OUTSIDE RECORDS SUMMARY | 2022-03-05 01:49 | XMS_ITS | Encounter Summary ---
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 AMB ONC GI COLORECTAL CANCER - FOLFOX-6 (14 DAY) [address] [place] [phone] Fax: Referral ID Status Reason Start Date Expiration Date Visits V isits Requested Authorized [id number] Authorized 05/08/2021 02/26/2022 99 99 Encounter Details Date Type Department Care Team Description 09/25/2021 Infusion Hematology Oncology at [facility] colon cancer with [facility] metastasis to other site [address] [place] [address] [phone] Social History Tobacco Use Types [...] Visit Hematology and Oncology Michael Romero MD [facility] [place] [address] Maricarmen Payton, [address] [place] [address] 03/05/2022 Infusion Hematology and Oncology documented as [...] Pharmacist rounded dose per procedure (Re-ordered by MD/CHEMICAL TECHNICIAN). Compatible with dextrose-containing solution only. Warning Vesicant/Irritant Medication palonosetron (Aloxi) (0.05 mg/mL) injection Given 09/03 10:48 AM EDT 0.25 mg 0.25 mg 0.25 mg, Intravenous, ONCE, 1 dose, On Tue09/25/21 at 1100, Administer over 30 seconds. Administer prior to chemotherapy, Routine documented in this encounter Care Teams Bevel Polisher Relationship Specialty Start Date End Date None PCP - General 12/03/19 None documented as of this encounter
--- OUTSIDE RECORDS SUMMARY | 2022-03-05 01:49 | XMS_ITS | Encounter Summary ---
:1940 [place] [address] Care Team Providers Name Role Phone None Primary Care Provider Unavailable Encounter Details Date Type Department Care Team Description 10/01/2021 Ancillary Procedure Radiology Library at Jorge Romero [facility] [place] [address] ONCOLOGY [phone] [place], [place] [address] (Wo rk) Social History Tobacco Use Types Packs/Day Years Used Date Smoking Tobacco: Never Smokeless Tobacco: Never Sex Assigned at Date Recorded Not on file documented as of this encounter Plan of Treatment Upcoming Encounters Date Type Specialty Care Team Description 03/05/2022 Office Visit Hematology and Oncology Michael Romero MD [facility] [place] [address] Maricarmen Payton NEUROSCIENCE DIRECTOR NA [address] [place] [address] [place] [address] 03/05/2022 Infusion Hematology and Oncology documented as [...] Address City/State/ZIP Code Phon e Number RAD [place], [place] documented in this encounter Visit Diagnoses Not on filedocumented in this encounter Care Teams Microbiology Professor Relationship Specialty Start Date End Date None PCP - General 12/03/19 None documented as of this encounter
--- OUTSIDE RECORDS SUMMARY | 2022-03-05 01:49 | XMS_ITS | Encounter Summary ---
:1940 Author Organization [place] [address] Care Team Providers Name Role Phone None Primary Care Provider Unavailable Reason for Referral Diagnostic Test (Routine) - Authorized Specialty Diagnoses / Procedures Referred By Contact Refer red To Contact Radiology Diagnoses Adenocarcinoma of small intestine, stage 4 Michael Romero MD Procedures CT Chest Abdomen Pelvis w Contrast (Generic) [facility] [place] [address] Referral ID Status Reason Start Expiration Visits Visits Date Date Requested Authorized [id number] Authorized Specialty 07/10/2021 01/09/2023 1 1 Service Requested Encounter Details Date Type Department Care Team Description 07/10/2021 Office Visit Hematology/Oncology Aaron Romero MD [facility] [place] [address] [facility] [address] [place] [address] MEDICAL ONCOLOGY [place], [place] [phone] intestine, stage [address] [place] [phone] Social History Tobacco Use Types Packs/Day [...] for her. Soc Hx: , lives in [place], [place] Tob - Never Etoh - None Worked as [employer]. Fam Hx: Father - Mother - breast [...] in the pelvis. She was [facility] at [facility] and underwent resection on [...] the absence of cold, laryngeal dysesthesia, fatigue, angina/[place], hypersensitivity reactions and others.?She was given informationalhandouts [...] Romero MD [facility] [place] [address] [address] [place] [address] 03/05/2022 Infusion Hematology and Oncology Scheduled Orders [...] site documented in this encounter Care Teams Coremaker Relationship Specialty Start Date End Date None PCP - General 12/03/19 None documented as of this encounter
--- OUTSIDE RECORDS SUMMARY | 2022-03-05 01:49 | XMS_ITS | Encounter Summary ---
:1940 Author Organization [facility] [place] [address] Care Team Providers Name Role Phone None Primary Care Provider Unavailable Encounter Details Date Type Department Care Team Description 08/17/2021 Orders Only Hematology/Oncology at [facility] Mckenna [address] [place] [address] MEDICAL ONCOLOGY [facility] [phone] Social History Tobacco Use Types Packs/Day Years Used Date Smoking Tobacco: Never Smokeless Tobacco: Never Sex Assigned at Date Recorded Not on file documented as of this encounter Plan of Treatment Upcoming Encounters Date Type Specialty Care Team Description 03/05/2022 Office Visit Hematology and Oncology Michael Romero MD [facility] [place] [address] Marciarmen Payton SENIOR WIND TURBINE TECHNICIAN [address] [place] [address] HEMATOLOGY [place] [address] 03/05/2022 Infusion Hematology and Oncology documented as of this encounter Visit Diagnoses Not on filedocumented in this encounter Care Teams Lath Tier Relationship Specialty Start Date End Date None PCP - General 12/03/19 None documented as of this encounter
--- OUTSIDE RECORDS SUMMARY | 2022-03-05 01:49 | XMS_ITS | Encounter Summary ---
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 Michael Romero MD St Hem Onc Infusion Procedures [facility] AMB ONC GI COLORECTAL CANCER - FOLFOX-6 (14 DAY) [address] [place] [phone] Fax: Referral ID Status Reason Start Date Expiration Date Visits V isits Requested Authorized [id number] Authorized 05/08/2021 02/26/2022 99 99 Encounter Details Date Type Department Care Team Description 08/07/2021 Infusion Hematology Oncology at [facility] colon cancer with [facility] metastasis to other site [address] [place] [phone] Social History Tobacco Use Types [...] height, weight and BSA by Lori Soto, ARYA and Staff Pharmacist(s). REACTIONS (DESCRIPTION, TIME, INTERVENTION AND EFFECTIVENESS) none ASSESSMENT: Joy was awake, alert and tolerated treatment well. CADD pump provided by [employer], pump was double checked by Lori Soto, ARYA and Ifeanyi Jamison RN prior to connection. [...] Romero MD [facility] [place] [address] Maricarmen Payton, BLADDER TIER [address] [place] [address] [place] [address] 03/05/2022 Infusion Hematology and Oncology documented as [...] Routine documented in this encounter Care Teams Tree Driller Relationship Specialty Start Date End Date None PCP - General 12/03/19 None documented as of this encounter
--- OUTSIDE RECORDS SUMMARY | 2022-03-05 01:49 | XMS_ITS | Encounter Summary ---
:1940 Author Organization [facility] [place] [address] Care Team Providers Name Role Phone None Primary Care Provider Unavailable Encounter Details Date Type Department Care Team Description 10/20/2021 [facility]phone [facility] [address] [phone] Social History Tobacco Use [...] Romero MD [facility] [place] [address] Maricarmen Payton APRN [address] [place] [address] HEMATOLOGY AND [place], [place] [phone] 03/05/2022 Infusion Hematology and Oncology documented as of this encounter Visit Diagnoses Not on filedocumented in this encounter Care Teams Collision Technician Relationship Specialty Start Date End Date None PCP - General 12/03/19 None documented as of this encounter
--- OUTSIDE RECORDS SUMMARY | 2022-03-05 01:49 | XMS_ITS | Encounter Summary ---
:1940 Author [place] [address] Care Team Providers Name Role Phone None Primary Care Provider Unavailable Encounter Details Date Type Department Care Team Description 05/05/2021 Ancillary Procedure Radiology Library at Jorge Romero [facility] [place] [address] ONCOLOGY [phone] [place], [place] [address] (Wo rk) Social History Tobacco Use Types Packs/Day Years Used Date Smoking Tobacco: Never Smokeless Tobacco: Never Sex Assigned at Date Recorded Not on file documented as of this encounter Plan of Treatment Upcoming Encounters Date Type Specialty Care Team Description 03/05/2022 Office Visit Hematology and Oncology Michael Romero MD [facility] [place] [address] Maricarmen Payton [address] [address] 03/05/2022 Infusion Hematology and Oncology documented as [...] City/State/ZIP Code Phon e Number RAD [place], [place] documented in this encounter Visit Diagnoses Not on filedocumented in this encounter Care Teams Statistician Mathematical Relationship Specialty Start Date End Date None PCP - General 12/03/19 None documented as of this encounter
--- OUTSIDE RECORDS SUMMARY | 2022-03-05 01:49 | XMS_ITS | Encounter Summary ---
:1940 [place] [address] Care Team Providers Name Role Phone None Primary Care Provider Unavailable Encounter Details Date Type Department Care Team Description 06/28/2021 Telephone Hematology and Oncology at Nicolasa Goodson [facility] [place] [address] [place] [address] HEMATOLOGY/ONCOLOGY [phone] [place], [place] [address] (Wo rk) Social History Tobacco [...] oncology/hematology team. Nicolasa Quintana M.D. Hematology/Oncology Fellow [facility] Pager # [phone] 06/28/21, 12:10 PM documented in this encounter Plan of Treatment Upcoming Encounters Date Type Specialty Care Team Description 03/05/2022 Office Visit Hematology and Oncology Michael Romero MD [facility] [place] [address] [address] [place] [address] 03/05/2022 Infusion Hematology and Oncology documented as of this encounter Visit Diagnoses Not on filedocumented in this encounter Care Teams Tipple Oiler Relationship Specialty Start Date End Date None PCP - General 12/03/19 None documented as of this encounter
--- OUTSIDE RECORDS SUMMARY | 2022-03-05 01:49 | XMS_ITS | Encounter Summary ---
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 colon cancer with [facility] metastasis to other site [address] [place] [phone] Social History Tobacco Use Types [...] time. OBJECTIVE LAB DATA: Done today at [facility] for treatment. IV ACCESS: Implanted port Pre [...] Michael Romero MD [facility] [place] [address] Maricarmen Payton, BLENDER / COOK [address] [place] [address] [place] [address] 03/05/2022 Infusion Hematology and Oncology documented as [...] Routine documented in this encounter Care Teams Volcanologist Relationship Specialty Start Date End Date None PCP - General 12/03/19 None documented as of this encounter
--- OUTSIDE RECORDS SUMMARY | 2022-03-05 01:49 | XMS_ITS | Encounter Summary ---
:1940 Author Organization [facility] [place] [address] Care Team Providers Name Role Phone None [...] GI COLORECTAL CANCER - FOLFOX-6 (14 DAY) [address] [place] [phone] Fax: Referral ID Status Reason Start Date Expiration Date Visits V isits Requested Authorized [id number] Authorized 05/08/2021 02/26/2022 99 99 Encounter Details Date Type Department Care Team Description 05/28/2021 Infusion Hematology Oncology at [facility] colon cancer with [facility] metastasis to other site [address] [place] [address] [phone] Social History Tobacco Use Types [...] INFUSION THERAPY ADMINISTRATION NOTES TIME TREATMENT STARTED: 1129 TIME TREATMENT ENDED: 1209 DIAGNOSIS: colon cancer PROTOCOL:na CYCLE #: 1 [...] Romero MD [facility] [place] [address] Maricarmen Paytno, NICOLE [address] [place] [address] [place] [address] 03/05/2022 Infusion Hematology and Oncology documented as [...] Job Aid: Adult Flushing & Catheter Care (4183) job aid for additional information regarding guidelines [...] Job Aid: Adult Flushing & Catheter Care (2506) job aid for additional information regarding guidelines and administration., Routine documented in this encounter Care Teams Saddle Lining Stitcher Relationship Specialty Start Date End Date None PCP - General 12/03/19 None documented as of this encounter
--- OUTSIDE RECORDS SUMMARY | 2022-03-05 01:49 | XMS_ITS | Encounter Summary ---
:1940 Author Organization [facility] [address] Care Team Providers Name Role Phone None Primary Care Provider Unavailable Reason for Visit High Dollar Medication (Routine) - Closed Specialty Diagnoses / Procedures Referred By Contact Refer red To Contact Hematology and Diagnoses Malignant neoplasm of abdomen Malignant neoplasm of abdomen Jamie Jean-Baptiste Gregory H, Oncology Procedures CHEMO MD MANAN Camejo [address] [place] [address] [place]OGY [phone] [place], [place] Fax: Referral ID Status Reason Start Date Expiration Date Visits Requ ested Visits Authorized [id number] Closed 03/17/2021 02/26/2022 99 99 Encounter Details Date Type Department Care Team Description 04/17/2021 Office Visit Hematology/Oncology Aaron Romero MD [facility] [place] [place] [address] Metastasis from colon cancer; at [facility] Nancy Ewing APRN [address] [place] [address] [place] [address] Stage IV adenocarcinoma of small bowel [address] [place] [phone] Social History Tobacco Use Types Packs/Day [...] isn't much to do. She works on [employer] and reads also. Once has some pain [...] or feet. Soc Hx: , lives in [place], [place] Tob - Never Etoh - None Worked as [employer]. Fam Hx: Father - Mother - breast [...] the pelvis. She was seen at [facility] and underwent resection on [...] [ ] Not satisfied SOCIAL ASSESSMENT: See [facility] social assessment information entered. Support Systems: Treva Jasso. [facility] transportation plan: [X ]private vehicle [ [...] Michael Romero MD [facility] [place] [address] Maricarmen Payton APRN [address] [place] [address] [place] [address] 03/05/2022 Infusion Hematology and Oncology Scheduled Orders [...] documented in this encounter Care Teams Machine Tracer Relationship Specialty Start Date End Date None PCP - General 12/03/19 None documented as of this encounter
--- OUTSIDE RECORDS SUMMARY | 2022-03-05 01:49 | XMS_ITS | Encounter Summary ---
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 Michael Romero MD Stj Hem Onc Infusion Procedures [facility] AMB ONC GI COLORECTAL CANCER - FOLFOX-6 (14 DAY) [address] [place] [phone] Fax: Referral ID Status Reason Start Date Expiration Date Visits V isits Requested Authorized [id number] Authorized 05/08/2021 02/26/2022 99 99 Encounter Details Date Type Department Care Team Description 06/12/2021 Infusion Hematology Oncology at [facility] colon cancer with [facility] metastasis to other site [address] [place] [phone] Social History Tobacco Use Types [...] MD [facility] [place] [address] [address] [place] [address] 03/05/2022 Infusion Hematology and Oncology documented as [...] Routine documented in this encounter Care Teams Humidifier Attendant Relationship Specialty Start Date End Date None PCP - General 12/03/19 None documented as of this encounter
--- OUTSIDE RECORDS SUMMARY | 2022-03-05 01:49 | XMS_ITS | Encounter Summary ---
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 Michael Romero MD Schroer, Peter Benjamin, [facility] Slime Jacobson MD ONCOLOGY [address] [place] [address] [place] [phone] Fax: Referral ID Status Reason Start Date Expiration Date Visits V isits Requested Authorized [id number] Closed Consult, 05/08/2021 11/04/2021 1 1 Test & Treat Encounter Details Date Type Department Care Team Description 05/08/2021 TH Visit Hematology/Oncology Michael Romero ry colon cancer (TeleHealth) at Tl Putnam MD with metastasis to [address] [place] [address] MEDICAL other site [facility] [phone] ONCOLOGY [phone] [place] [address] Social History Tobacco Use Types Packs/Day Years [...] because of significant intra abdominal adhesions Path ([facility] review) - Omentum, [...] or feet. Soc Hx: , lives in [place], [place] Tob - Never Etoh - None Worked as [employer]. Fam Hx: Father - Mother - breast [...] the absence of cold, laryngeal dysesthesia, fatigue, angina/[place], hypersensitivity reactions and others.?She was given informationalhandouts [...] MD [facility] [place] [place] [address] [address] [place] [address] 03/05/2022 Infusion Hematology and Oncology Scheduled Orders [...] site documented in this encounter Care Teams Copy Chaser Relationship Specialty Start Date End Date None PCP - General 12/03/19 None documented as of this encounter
--- OUTSIDE RECORDS SUMMARY | 2022-03-05 01:49 | XMS_ITS | Encounter Summary ---
:1940 Author Organization [facility] [place] [address] Care Team Providers Name Role Phone None Primary Care Provider Unavailable Reason for Visit Reason Comments IV Access Port flush Encounter Details Date Type Department Care Team Description 06/29/2021 Infusion Hematology Oncology at [facility] colon cancer with [facility] metastasis to other site [address] [place] [address] [phone] Social History Tobacco Use Types [...] well. Reminded to call the clinic or [facility] with any questions or concerns. PLAN: Return to clinic per routine. 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
--- OUTSIDE RECORDS SUMMARY | 2022-03-05 01:49 | XMS_ITS | Encounter Summary ---
:1940 Author Organization [facility] [place] [address] Care Team Providers Name Role Phone None Primary Care Provider Unavailable Reason for Visit Reason Comments IV Access Port flush only Encounter Details Date Type Department Care Team Description 07/10/2021 Infusion Hematology Oncology at [facility] colon cancer with [facility] metastasis to other site [address] [place] [address] [phone] Social History Tobacco Use Types [...] low ANC IV ACCESS: Mediport accessed by [facility] BLOOD RETURN: yes ANY S/S OF INFECTION/EXTRAVASATIONS: no signs of IV complications observed IV FLUSHED WITH: 20cc NS and 500 units Heparin IV DISCONTINUED: yes ASSESSMENT: Patient tolerated treatment well. PLAN: Return to clinic per routine. 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
--- OUTSIDE RECORDS SUMMARY | 2022-03-05 01:49 | XMS_ITS | Encounter Summary ---
:1940 Author Organization [facility] [place] [place] [address] Care Team Providers Name Role Phone None Primary Care Provider Unavailable Encounter Details Date Type Department Care Team Description 05/22/2021 Orders Only Hematology/Oncology at [facility] Ruby Guillory[address] HEMATOLOGY [place] [address] [place], [place] [phone] (Wo rk) Social History Tobacco Use Types Packs/Day Years Used Date Smoking Tobacco: Never Smokeless Tobacco: Never Sex Assigned at Date Recorded Not on file documented as of this encounter Plan of Treatment Upcoming Encounters Date Type Specialty Care Team Description 03/05/2022 Office Visit Hematology and Oncology Michael Romero MD [facility] [place] [address] [address] HEMATOLOGY AND ONGOLOCY [place], [place] [address] 03/05/2022 Infusion Hematology and Oncology documented as of this encounter Visit Diagnoses Not on filedocumented in this encounter Care Teams Pier Master Relationship Specialty Start Date End Date None PCP - General 12/03/19 None documented as of this encounter
--- OUTSIDE RECORDS SUMMARY | 2022-03-05 01:49 | XMS_ITS | Encounter Summary ---
:1940 Author Organization [facility] [address] Care Team Providers Name Role Phone None Primary Care Provider Unavailable Encounter Details Date Type Department Care Team Description 07/24/2021 Office Visit Hematology/Oncology Aaron Romero MD [facility] [place] [address] [facility] of [facility] [address] [place] [address] [place] [address] [place] [phone] Social History Tobacco Use Types Packs/Day [...] because of significant intra abdominal adhesions Path ([facility] review) - Omentum, mass, excision: - Metastatic [...] and down. Soc Hx: , lives in [place], [place] Tob - Never Etoh - None Worked as [employer] and [employer] [place] [employer]. Fam Hx: Father - Mother - breast [...] in the pelvis. 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
--- OUTSIDE RECORDS SUMMARY | 2022-03-05 01:49 | XMS_ITS | Encounter Summary ---
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 Michael Romero MD St[facility] Hem Onc [facility] COL[facility]ECTAL CANCER - FOLFOX-6 (14 DAY) [address] [place] [phone] Fax: Referral ID Status Reason Start Date Expiration Date Visits V isits Requested Authorized [id number] Authorized 05/08/2021 02/26/2022 99 99 Encounter Details Date Type Department Care Team Description 08/28/2021 Infusion Hematology Oncology at [place] colon cancer with [facility] metastasis to other site [address] [place] [address] [phone] Social History Tobacco Use Types [...] MD [facility] [place] [address] Maricarmen Payton APRN [address] [place] [address] [place] [address] 03/05/2022 Infusion Hematology and Oncology documented as [...] Routine documented in this encounter Care Teams Crop Roller Relationship Specialty Start Date End Date None PCP - General 12/03/19 None documented as of this encounter
--- OUTSIDE RECORDS SUMMARY | 2022-03-05 01:49 | XMS_ITS | Encounter Summary ---
:1940 Author Organization [facility] [place] [address] Care Team Providers Name Role Phone None Primary Care Provider Unavailable Encounter Details Date Type Department Care Team Description 05/26/2021 Notes Only Hematology/Oncology at [facility] MSW [facility] OFFICE OF CARE [address] [place] [phone] Social History Tobacco Use Types Packs/Day Years Used Date Smoking Tobacco: Never Smokeless Tobacco: Never Sex Assigned at Date Recorded Not on file documented as of this encounter Progress Notes Claudia Gomes MSW - 05/26/2021 11:22 AM EST Reason for Referral: Brief assessment of social and emotional needs. Met with pt during her first infusion to introduce myself and role of foster care social worker to assess/address barriers to getting [...] With pt's permission will apply to the [place] [facility] for gas cards. 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 She has Medicare A&B. She indicated she has applied for financial assistance through [facility]. Advance Directives: Pt has not completed her [...] resources Transportation resources Plan: Informed pt of TRANSMITTER CHIEF availability and contact information. Will follow to assess/address psychosocial needs. KENA Bryan, SKATING RINK MANAGER, OSW-C Operations Support Analyst [facility] Add: [facility] janette be mailing pt a few gas cards. Pt was informed and is appreciative of this help. documented in this encounter Plan of Treatment Upcoming Encounters Date Type Specialty Care Team Description 03/05/2022 Office Visit Hematology and Oncology Michael Romero MD [facility] [place] [address] Maricarmen Payton APRN [address] [place] [address] [place] [address] 03/05/2022 Infusion Hematology and Oncology documented as of this encounter Visit Diagnoses Not on filedocumented in this encounter Care Teams Outside Sales Relationship Specialty Start Date End Date None PCP - General 12/03/19 None documented as of this encounter
--- OUTSIDE RECORDS SUMMARY | 2022-03-05 01:49 | XMS_ITS | Encounter Summary ---
:1940 [place] [address] Care Team Providers Name Role Phone None Primary Care Provider Unavailable Encounter Details Date Type Department Care Team Description 12/24/2020 Ancillary Procedure Radiology Library at Jorge Romero [facility] [place] [address] ONCOLOGY [phone] [place], [place] [address] (Wo rk) Social History Tobacco Use Types Packs/Day Years Used Date Smoking Tobacco: Never Smokeless Tobacco: Never Sex Assigned at Date Recorded Not on file documented as of this encounter Plan of Treatment Upcoming Encounters Date Type Specialty Care Team Description 03/05/2022 Office Visit Hematology and Oncology Michael Romero MD [facility] [place] [address] Maricarmen Payton [address] [place] [address] 03/05/2022 Infusion Hematology and Oncology documented as of this encounter Procedures Procedure Name Priority Date/Time Associated Comments Diagnosis FILM LIBRARY STORAGE Routine 12/24/2020 12:00 AM Results for this ONLY ULTRASOUND EDT procedure luis amanda in STUDY the results section. documented in this encounter Results Film Library- Storage Only Ultrasound Study (12/24/2020 12:00 AM EDT) Specimen (Source) Anatomical Location Collection Method / Collectio n Time Received Time / Laterality Volume Narrative BHARTI - 04/16/2021 10:53 AM EST This exam is auto-finalizing. It's purpo se is for storage only. Michael Romero MD IMG FILM LIBRARY ORDERABLES Performing Organization Address City/State/ZIP Code Phon e Number BHARTI BHARTI [place], [place] documented in this encounter Visit Diagnoses Not on filedocumented in this encounter Care Teams Dinkey Press Operator Relationship Specialty Start Date End Date None PCP - General 12/03/19 None documented as of this encounter
--- OUTSIDE RECORDS SUMMARY | 2022-03-05 01:49 | XMS_ITS | Encounter Summary ---
:1940 Author Organization [facility] Address [address] [facility] [place] [address] Care Team Providers Name Role Phone None Primary Care Provider Unavailable Encounter Details Date Type Department Care Team Description 11/20/2021 Unscheduled Hematology/Oncology Lissy Luna, Primar y colon Encounter at [facility] RD cancer with [facility] [address] [facility] metastasis to other [place], [place] [address] site [phone] HEMATOLOGY AND [phone] [place] [address] Social History Tobacco Use Types Packs/Day Years Used Date Smoking Tobacco: Never Smokeless Tobacco: Never Sex Assigned at Date Recorded Not on file documented as of this encounter Progress Notes Cheryl Yuan E, RD - 11/20/2021 11:55 AM EDT [facility] Initial Assessment Patient Name: Joy [...] She lives at home with her in [place]. She reports her appetite is poor and her portions have become smaller over the last few months since she started treatment on folfox. She used to drink Boost once daily and would like to have this again. Patient has [place] Medicaid which should cover the cost of this. Nutrition Diagnosis 11/20/2021 Problems Involuntary weight loss related to appetite changes and diagnosis of metastatic colorectal cancer as evidenced by 6# weight loss in the past month (3.3% body weight). 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
--- OUTSIDE RECORDS SUMMARY | 2022-03-05 01:49 | XMS_ITS | Encounter Summary ---
:1940 Author Organization [facility] [place] [address] Care Team Providers Name Role Phone None Primary Care Provider Unavailable Encounter Details Date Type Department Care Team Description 06/12/2021 Orders Only Hematology/Oncology at [facility] Mckenna [address] [place] [address] MEDICAL ONCOLOGY [facility] [phone] Social History Tobacco Use Types Packs/Day Years Used Date Smoking Tobacco: Never Smokeless Tobacco: Never Sex Assigned at Date Recorded Not on file documented as of this encounter Plan of Treatment Upcoming Encounters Date Type Specialty Care Team Description 03/05/2022 Office Visit Hematology and Oncology Michael Romero MD [facility] [place] [address] Maricarmen Payton JUNIOR ACCOUNTANT BOOKKEEPER [address] [place] [address] HEMATOLOGY [place] [address] 03/05/2022 Infusion Hematology and Oncology documented as of this encounter Visit Diagnoses Not on filedocumented in this encounter Care Teams Well Service Floorperson Relationship Specialty Start Date End Date None PCP - General 12/03/19 None documented as of this encounter
--- OUTSIDE RECORDS SUMMARY | 2022-03-05 01:49 | XMS_ITS | Encounter Summary ---
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 colon cancer with [facility] metastasis to other site [address] [place] [phone] Social History Tobacco Use Types [...] OBJECTIVE LAB DATA: Labs drawn today at [facility]. Reviewed and found adequate for treatment. [...] Michael Romero MD [facility] [place] [address] Maricarmen Payton, ACCOUNT INSTALLATION SPECIALIST [address] [place] [address] [place] [address] 03/05/2022 Infusion Hematology and Oncology documented as [...] Routine documented in this encounter Care Teams Bariatric Physician Relationship Specialty Start Date End Date None PCP - General 12/03/19 None documented as of this encounter
--- OUTSIDE RECORDS SUMMARY | 2022-03-05 01:49 | XMS_ITS | Encounter Summary ---
:1940 Author Organization [facility] Address [facility] [place] [address] Care Team Providers Name Role Phone None Primary Care Provider Unavailable Encounter Details Date Type Department Care Team Description 06/25/2021 Telephone [facility] [place] RN [address] [place] [phone] Social History Tobacco Use Types [...] and shewanted to make sure that approved. [phone] best call back number RN Follow-up Discussed [...] MD [facility] [place] [address] Maricarmen Payton APRN [address] [place] [address] [place] [address] 03/05/2022 Infusion Hematology and Oncology documented as of this encounter Visit Diagnoses Not on filedocumented in this encounter Care Teams Mechanics Handyman Relationship Specialty Start Date End Date None PCP - General 12/03/19 None documented as of this encounter
--- OUTSIDE RECORDS SUMMARY | 2022-03-05 01:49 | XMS_ITS | Encounter Summary ---
:1940 Author Organization [place] [address] Care Team Providers Name Role Phone None Primary Care Provider Unavailable Encounter Details Date Type Department Care Team Description 06/12/2021 Office Visit Hematology/Oncology Mckenna Farris, Prim marycruz colon cancer at [facility] BAG SHAKER with metastasis to [address] [place] [address] other site [place], [place]OG [place] [address] [place], [place] [phone] (Wo rk) Social History Tobacco Use Types [...] in this encounter Progress Notes Mckenna Farris, BAG SHAKER - 06/12/2021 9:30 AM EST Subjective Patient [...] pelvis. ?? [facility] [...] the absence of cold, laryngeal dysesthesia, fatigue, angina/[place], hypersensitivity reactions and others.?She??was given informational handouts [...] questions/concerns or new symptoms. Mckenna Farris MSN, BAG SHAKER, AOCNP Medical Oncology documented in this encounter Plan of Treatment Upcoming Encounters Date Type Specialty Care Team Description 03/05/2022 Office Visit Hematology and Oncology Michael Romero MD [facility] [place] [address] Maricarmen Payton APRN [address] [place] [address] [facility] [place] [address] 03/05/2022 Infusion Hematology and Oncology Scheduled Orders [...] site documented in this encounter Care Teams Assistant Operator Relationship Specialty Start Date End Date None PCP - General 12/03/19 None documented as of this encounter
--- OUTSIDE RECORDS SUMMARY | 2022-03-05 01:49 | XMS_ITS | Encounter Summary ---
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 AMB ONC GI COLORECTAL CANCER - FOLFOX-6 (14 DAY) [address] [place] [phone] Fax: Referral ID Status Reason Start Date Expiration Date Visits V isits Requested Authorized [id number] Authorized 05/08/2021 02/26/2022 99 99 Encounter Details Date Type Department Care Team Description 07/24/2021 Infusion Hematology Oncology at [facility] colon cancer with [facility] metastasis to other site [address] [place] [address] [phone] Social History Tobacco Use Types [...] infusion chemotherapy via CADD pump provided by [employer]. Fluorouracil 3438 mg over 46 hours, IV [...] Oncology Michael Romero MD [facility] [place] [address] Maricarmen Payton, NICOLE [address] [place] [address] [place] [address] 03/05/2022 Infusion Hematology and Oncology documented as [...] Routine documented in this encounter Care Teams Mainspring Torque Tester Relationship Specialty Start Date End Date None PCP - General 12/03/19 None documented as of this encounter
--- OUTSIDE RECORDS SUMMARY | 2022-03-05 01:50 | XMS_ITS | Encounter Summary ---
:1940 [place] [address] Care Team Providers Name Role Phone Unavailable Primary Care Provider Unavailable Encounter Details Date Type Department Care Team Description 10/30/2019 Ancillary Procedure [facility] [place] [address] ONCOLOGY [phone] [place], [place] [address] (Wo rk) Social History Tobacco Use Types Packs/Day Years Used Date Smoking Tobacco: Never Assessed Sex Assigned at Date Recorded Not on file documented as of this encounter Plan of Treatment Upcoming Encounters Date Type Specialty Care Team Description 03/05/2022 Office Visit Hematology and Oncology Michael Romero MD [facility] [place] [address] [address] [place], [place] [address] 03/05/2022 Infusion Hematology and Oncology documented as [...] Address City/State/ZIP Code Phon e Number BHARTI HAY [place], [place] documented in this encounter Visit Diagnoses Not on filedocumented in this encounter
--- OUTSIDE RECORDS SUMMARY | 2022-03-05 01:50 | XMS_ITS | Encounter Summary ---
:1940 Author Organization [facility] [place] [address] Care Team Providers Name Role Phone Unavailable Primary Care Provider Unavailable Encounter Details Date Type Department Care Team Description 11/26/2019 Telephone LOCAL DELIVERY TRUCK DRIVER at [facility] Sofia Rodriguez [address] [place] [phone] Social History Tobacco Use Types Packs/Day Years Used Date Smoking Tobacco: Never Assessed Sex Assigned at Date Recorded Not on file documented as of this encounter Plan of Treatment Upcoming Encounters Date Type Specialty Care Team Description 03/05/2022 Office Visit Hematology and Oncology Michael Romero MD [facility] [place] [address] [address] [place], [place] [address] 03/05/2022 Infusion Hematology and Oncology documented as of this encounter Visit Diagnoses Not on filedocumented in this encounter
--- OUTSIDE RECORDS SUMMARY | 2022-03-05 01:50 | XMS_ITS | Encounter Summary ---
:1940 [place] [address] Care Team Providers Name Role Phone Unavailable Primary Care Provider Unavailable Encounter Details Date Type Department Care Team Description 10/03/2019 Ancillary Procedure [facility] [place] [address] ONCOLOGY [phone] [place], [place] [address] (Wo rk) Social History Tobacco Use Types Packs/Day Years Used Date Smoking Tobacco: Never Assessed Sex Assigned at Date Recorded Not on file documented as of this encounter Plan of Treatment Upcoming Encounters Date Type Specialty Care Team Description 03/05/2022 Office Visit Hematology and Oncology Michael Romero MD [facility] [place] [address] [address] [place] [address] 03/05/2022 Infusion Hematology and Oncology documented as [...] City/State/ZIP Code Phon e Number BHARTI BHARTI [place], [place] documented in this encounter Visit Diagnoses Not on filedocumented in this encounter
--- OUTSIDE RECORDS SUMMARY | 2022-03-05 01:50 | XMS_ITS | Encounter Summary ---
:1940 Author Organization [place] [address] Care Team Providers Name Role Phone None Primary Care Provider Unavailable Reason for Visit Reason Comments Pre-op Exam Encounter Details Date Type Department Care Team Description 12/03/2019 Office Visit CONSULAR OFFICER at [place] Dannie Epperson DO Hydrosalpinx [address] OBSTETRICS & [place] [address] [place] [address] [phone] (Wo rk) Social History Tobacco Use Types [...] very pleasant 79 yo para 4 from [place] who is a new patient in consult today as requested by Dr Live Sood of the General Surgery group at [facility]. She presents alone today, and her Romero is in the car outside. Dr Sood is requesting gynecology presence at plannedlaparotomy for colon cancer resection for possible JOSE ROBERTO-BSO if needed. This has been scheduled for 12/05/2019. The patient has undergone prior visit with OSH and decided to pursue second opinion with general surgery at [facility]. She reports a history of colonoscopy in [...] of hydrosalpinx on right per patient report. CHILDREN'S BOOK AUTHOR history: Menarche age 16, 4 to 6-day cycles that were regular. She reported moderate flow. She reports mammography in 1989 that were normal. She reports having always had a normal Pap history and no STDs. She reports last colonoscopy 2 to 3 years ago. Social history: She does not smoke, drink or use drugs. 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 She is to Celia, age 79. He [...] laparotomy 12/05/2019. 1.reviewed with patient requests for CHILDREN'[employer] BOOK AUTHOR presence at time of her surgery to [...] We spent approximately 30 minutes in direct [id number] discussion, collection of historical data, review of [...] MD [facility] [place] [place] [address] [address] [place] [address] 03/05/2022 Infusion Hematology and Oncology documented as [...] site documented in this encounter Care Teams Lead Sewage Plant Operator Relationship Specialty Start Date End Date None PCP - General 12/03/19 None documented as of this encounter
--- OUTSIDE RECORDS SUMMARY | 2022-03-05 01:50 | XMS_ITS | Encounter Summary ---
:1940 Author Organization [facility] [place] [address] Care Team Providers Name Role Phone Unavailable Primary Care Provider Unavailable Encounter Details Date Type Department Care Team Description 11/26/2019 Orders Only INDEPENDENT CONSULTANT at [facility] Zeenat, DO Anais Ndiaye [address] [place] [address] OBSTETRICS [place] [address] [place] [address] [phone] (Wo rk) Social History Tobacco Use Types Packs/Day Years Used Date Smoking Tobacco: Never Assessed Sex Assigned at Date Recorded Not on file documented as of this encounter Plan of Treatment Upcoming Encounters Date Type Specialty Care Team Description 03/05/2022 Office Visit Hematology and Oncology Michael Romero MD [facility] [place] [address] Maricarmen Payton APRN [address] [place] [address] [place] [address] 03/05/2022 Infusion Hematology and Oncology documented as of this encounter Visit Diagnoses Not on filedocumented in this encounter
--- OUTSIDE RECORDS SUMMARY | 2022-03-05 01:50 | XMS_ITS | Encounter Summary ---
:1940 [place] [address] Care Team Providers Name Role Phone Unavailable Primary Care Provider Unavailable Encounter Details Date Type Department Care Team Description 10/29/2019 Ancillary Procedure [facility] [place] [address] ONCOLOGY [phone] [place], [place] [address] (Wo rk) Social History Tobacco Use Types Packs/Day Years Used Date Smoking Tobacco: Never Assessed Sex Assigned at Date Recorded Not on file documented as of this encounter Plan of Treatment Upcoming Encounters Date Type Specialty Care Team Description 03/05/2022 Office Visit Hematology and Oncology Michael Romero MD [facility] [place] [address] [address] [place], [place] [address] 03/05/2022 Infusion Hematology and Oncology documented as [...] Time Received Time / Laterality Volume Narrative [facility] - 04/16/2021 11:09 AM EST This exam is auto-finalizing. It's purpo se is for storage only. Michael Romero MD IMG FILM LIBRARY ORDERABLES Performing Organization Address City/State/ZIP Code Phon e Number BHARTI BHARTI [place], [place] documented in this encounter Visit Diagnoses Not on filedocumented in this encounter
--- OUTSIDE RECORDS SUMMARY | 2022-03-05 01:50 | XMS_ITS | Encounter Summary ---
:1940 [place] [address] Care Team Providers Name Role Phone None Primary Care Provider Unavailable Encounter Details Date Type Department Care Team Description 04/01/2020 Ancillary Procedure [facility] [address] ONCOLOGY [phone] [place], [place] [address] (Wo rk) Social History Tobacco Use Types Packs/Day Years Used Date Smoking Tobacco: Never Smokeless Tobacco: Never Sex Assigned at Date Recorded Not on file documented as of this encounter Plan of Treatment Upcoming Encounters Date Type Specialty Care Team Description 03/05/2022 Office Visit Hematology and Oncology Michael Romero MD [facility] [place] [address] Maricarmen Payton SIEBEL CONSULTANT [address] [place] [address] [place] [address] 03/05/2022 Infusion Hematology and Oncology documented as [...] City/State/ZIP Code Phon e Number BHARTI BHARTI [place], [place] documented in this encounter Visit Diagnoses Not on filedocumented in this encounter Care Teams Mink Rancher Relationship Specialty Start Date End Date None PCP - General 12/03/19 None documented as of this encounter
--- OUTSIDE RECORDS SUMMARY | 2022-03-05 01:50 | XMS_ITS | Encounter Summary ---
:1940 [place] [address] Care Team Providers Name Role Phone None Primary Care Provider Unavailable Encounter Details Date Type Department Care Team Description 12/25/2019 Ancillary Procedure [facility] [place] [address] ONCOLOGY [phone] [place], [place] [address] (Wo rk) Social History Tobacco Use Types Packs/Day Years Used Date Smoking Tobacco: Never Smokeless Tobacco: Never Sex Assigned at Date Recorded Not on file documented as of this encounter Plan of Treatment Upcoming Encounters Date Type Specialty Care Team Description 03/05/2022 Office Visit Hematology and Oncology Michael Romero MD [facility] [place] [address] Maricarmen Payton APRN [address] [place] [address] [place] [address] 03/05/2022 Infusion Hematology and Oncology documented as [...] City/State/ZIP Code Phon e Number RAD BHARTI [place], [place] documented in this encounter Visit Diagnoses Not on filedocumented in this encounter Care Teams District Service Manager Relationship Specialty Start Date End Date None PCP - General 12/03/19 None documented as of this encounter
--- OUTSIDE RECORDS SUMMARY | 2022-03-05 01:50 | XMS_ITS | Encounter Summary ---
:1940 [place] [address] Care Team Providers Name Role Phone None Primary Care Provider Unavailable Reason for Visit Reason Onset Date Comments Schedule External Case 12/03/2019 Encounter Details Date Type Department Care Team Description 12/03/2019 Telephone BRAND AMBASSADOR at [facility] [address] [place] [phone] Social History Tobacco Use Types Packs/Day Years Used Date Smoking Tobacco: Never Smokeless Tobacco: Never Sex Assigned at Date Recorded Not on file documented as of this encounter Miscellaneous Notes Telephone Encounter - Noreen Mendoza - 12/03/2019 4:36 PM EDT I have scheduled Joy's surgery for 12/04 at 7:30am at [facility] with Dr. Epperson (along with Drs. Smyth & Kathleen). She's having a JOSE ROBERTO, BSO with Dr. Epperson. Noreen CPT code 09518, Am Admit documented in this encounter Plan of Treatment Upcoming Encounters Date Type Specialty Care Team Description 03/05/2022 Office Visit Hematology and Oncology Michael Romero MD [facility] [place] [address] Maricarmen Payton APRN [address] [place] [address] H[place]OLOGY [place], [place] [address] 03/05/2022 Infusion Hematology and Oncology documented as of this encounter Visit Diagnoses Not on filedocumented in this encounter Care Teams Platform Mill Supervisor Relationship Specialty Start Date End Date None PCP - General 12/03/19 None documented as of this encounter
--- OUTSIDE RECORDS SUMMARY | 2022-03-05 01:52 | XMS_ITS | Encounter Summary ---
:1940 Author Organization [facility] Address [address] [place] [address] Care Team Providers Name Role Phone YobaniNayan Pedro HARRISON Primary Care Provider Manuel Isaacs MD Primary Care Provider Encounter Details Date Type Department Care Team Description 12/27/2019 Lab Requisition [facility] Jamie Jean-Baptiste E ncounter for other Pathology & general examination Laboratory Medicine [address] [place] [address] [address] [place] [address] [place], [place] [address] Social History Tobacco Use Types Packs/Day Years [...] Component Value Ref Test Analysis Performed At [facility] gist Range Method Time Signature Final A. ILEOSTOMY TAKEDOWN: 01/01/2020 [facility] ME DICAL Diagnosis - Enterocutaneous junction consistent with ostomy. 9:16 [facility] - Extensive suture granulomas and reactive changes. LABORATORY SERVICES Attestation There was 01/01/2020 [facility] MEDICAL Elect ronically significant 9:16 [facility] signed b y resident/fellow LABORATORY Renee Davis, involvement in the SERVICES M D on 01/01/2020 diagnostic at 0916 evaluation of this case. By the signature below, the attending physician certifies that they have personally conducted a gross and/or microscopic examination of the described specimens and rendered or confirmed the above diagnosis. Clinical None listed 01/01/2020 [facility] MEDICAL History 9:16 [facility] LABORATORY SERVICES Gross A. 01/01/2020 [facility] MEDICAL Description Received in formalin denise d with proper patient identification (initials H, I) and partial small-bowel resection is an unoriented segment of small bowel (4.2 x 2.8 x 1.9 cm) that is the site of an o 9:16 [facility] stomy takedown. There is 1.8 cm [...] bowel remained constant throughout averaging 1.0 cm. Color Repairer sections are submitted as follows: BLOCK MORALES A1- section to include skin and small bowel, longitudinal A2-A3- serial section, bisected A4-A5- serial section, bisected Jarrett Paredes MD 12/28/2019 16:10 Resident/Jarrett Augustine, 01/01/2020 [facility] HOMERO CONNORS w: 9:16 [facility] LABORATORY SERVICES Performing Lab [facility] 01/01/2020 [facility] M EDICAL 9:16 [facility] LABORATORY SERVICES Scanned Images 01/01/2020 [facility] 9:16 [facility] LABORATORY SERVICES Specimen Anatomical Collection Method Collection Time Receive d Time (Source) Location / / Volume Laterality Tissue ENTIRE SIGMOID 12/26/2019 15:05 0 8:14 COLON / Unknown EDT EDT Jamie Jean-Baptiste MD PATHOLOGY ORDERABLES Performing Organization Address City/State/ZIP Code Phon e Number [facility] LABORATORY [address] [place] [address] SERVICES documented in this encounter Visit Diagnoses Diagnosis Encounter for other general examination documented in this encounter Care Teams On Site Construction Superintendent Relationship Specialty Start Date End Date Nayan Hilton DO PCP - General 06/17/17 04/01/20 Manuel Isaacs MD PCP - General 04/02/[address] [place] [phone] documented as of this encounter
--- OUTSIDE RECORDS SUMMARY | 2022-03-05 01:52 | XMS_ITS | Encounter Summary ---
:1940 Author Organization [facility] Address [address] [place] [address] Care Team Providers Name Role Phone Manuel Isaacs MD Primary Care Provider Encounter Details Date Type Department Care Team Description 12/24/2020 Lab Requisition [facility] Dixon Urena Enc ounter for other Pathology & MD general examination Laboratory Medicine - [address] [place] [address] [address] [facility] [address] [place], [place] [id number] Social History Tobacco Use Types Packs/Day Years [...] Priority Date/Time Associated Diagnosis Comme nts NON CLASSIFIER/FNA Today 12/24/2020 10:45 Results for this CYTOLOGY EDT procedure are i n the results section. documented in this encounter Results NON CLASSIFIER/FNA CYTOLOGY (12/24/2020 10:45 EDT) Component Value Ref Test Analysis Performed At [facility] gist Range Method Time Signature Note to The following 12/30/2020 [facility] MEDICAL Patient pathology results 14:10 [facility] have been LABORATORY interpreted by SERVICES your pathologist and may be available to you before your health provider has had the opportunity to review them. Please allow time for your provider to receive these results and explore management options, if applicable. Final A. RECTUS ABDOMINUS MUSCLE, RIGHT, ULTRASOUND-GUIDED FINE-NEEDLE ASPIRATION: 12/30/2020 [facility] Diagnosis - Adenocarcinoma. See comment. 14:10 [facility] LABORATORY SERVICES Diagnosis The aspirate smears are cell ular and show crowded sheets of malignant glandular cells with nuclear crowding and nuclear membrane irregularity. Although the SATB2 stain would be expected to be positive i 12/30/2020 [facility] Comment n colo-rectal carcinomas, a small percent of cases have been reported to be negative. Clinical and radiographic correlation is hence essential. Dr. David Roth has reviewed this case in consultation and concurs with the diagnosis. 14:10 [facility] Immunoperoxidase stains were performed on this case [...] conducted a gross and/or microscopic 0 12/30/2020 [facility] MEDICAL Electronically examination of the described specimens and rendered or confirmed the above diagnosis. 14:10 [facility] signed by FLYOD Luciano MD SERVICES on 12/31/19 21 at 1410 Rapid RECTUS ABDOMINUS MUSCLE, RIGHT, ULTRASOU ND GUIDED FINE NEEDLE ASPIRATION: 12/30/2020 [facility] MEDICAL Diagnosis Evaluation episode #1: Pass #1: Positive, consistent with adenocarcinoma. Additional passes recommended. 14:10 [facility] Passes 2 and 3 obtained. LABOR ATORY Pass #2: Air dried and EtOH fixed smears. SERVICES Pass #3: Scant, air dried smear only. CytoLyt: Needle rinses; ThinPrep. Finding: discussed on site with Dr. Kyle Jain 12/24/2020 10:55 AM Rapid evaluation of this [facility] e Needle Aspiration sample was performed by Pathologists at [facility], [address] [place] [address]. Clinical H/O small bowel 12/30/2020 [facility] MEDICAL History carcinoma; 2.6cm 14:10 [facility] FDG avid mass LABORATORY right rectus SERVICES abdominis muscle 3 cm below level of umbilicus Gross A. 12/30/2020 [facility] MEDICAL Description 2 fixed prepared slides, 3 D iff Quik prepared slides, and 1 tube of CytoLyt were received and processed by selective cellular enhancement technique. 14:10 [facility] LABORATORY SERVICES Performing Lab [facility] HOSPITAL LAB 12/30/2020 [facility] M EDICAL 14:10 [facility] LABORATORY SERVICES Scanned Images 12/30/2020 [facility] MEDICAL 14:10 [facility] LABORATORY SERVICES Specimen Anatomical Collection Method Collection Time Receive d Time (Source) Location / / Volume Laterality ZZUNK SOFT TISSUE / 12/24/2020 10:45 12/25/2020 6:44 Unknown EDT EDT Dixon Urena MD PATHOLOGY ORDERABLES Performing Organization Address City/State/ZIP Code Phon e Number [facility] LABORATORY [address] [place] [address] SERVICES documented in this encounter Visit Diagnoses Diagnosis Encounter for other general examination documented in this encounter Care Teams Quality Technician Relationship Specialty Start Date End Date Manuel Isaacs MD PCP - General 04/02/[address] [place] [phone] documented as of this encounter
--- OUTSIDE RECORDS SUMMARY | 2022-03-05 01:52 | XMS_ITS | Encounter Summary ---
:1940 Author Organization [facility] Address [address] [place] [address] Care Team Providers Name Role Phone Manuel Isaacs MD Primary Care Provider Encounter Details Date Type Department Care Team Description 01/29/2022 Lab Requisition [facility] Outr Resulting Lab, Pathology & Laboratory Provider [facility] [address] [place], [place] [id number] Social History Tobacco Use Types Packs/Day Years [...] athologist Signature CEA 4.5 See Note 01/29/2022 [facility] MEDICAL ng/mL 19:49 EDT CENTER LABORATORY SERVICES [...] of malignant disease. ?? Assayed on Siemens ChromoTekaur XPT usi ng chemiluminescent technology. ??Values obtained by different assay methods cannot be used interchangeably. Specimen Anatomical Collection Method Collection Time Receive d Time (Source) Location / / Volume Laterality Blood VENOUS BLOOD / 01/29/2022 8:00 01/29/2022 Unknown EDT 18:45 EDT Provider Outr Resulting Lab CHEMISTRY & BLOOD GAS JULIA GALARZA Performing Organization Address City/State/ZIP Code Phon e Number [facility] LABORATORY [address] [place] [address] SERVICES documented in this encounter Visit Diagnoses Not on filedocumented in this encounter Care Teams Griddle Attendant Relationship Specialty Start Date End Date Manuel Isaacs MD PCP - General 04/02/[address] [place] [phone] documented as of this encounter
--- OUTSIDE RECORDS SUMMARY | 2022-03-05 01:52 | XMS_ITS | Encounter Summary ---
:1940 Author Organization [facility] Address [address] [place] [address] Care Team Providers Name Role Phone Manuel Isaacs MD Primary Care Provider Encounter Details Date Type Department Care Team Description 11/20/2021 Lab Requisition [facility] Outr Resulting Lab, Pathology & Laboratory Provider [facility] [address] [place] [address] Social History Tobacco Use Types [...] athologist Signature CEA 3.7 See Note 11/20/2021 [facility] MEDICAL ng/mL 20:32 EDT CENTER LABORATORY SERVICES [...] of malignant disease. ?? Assayed on Siemens Sparktrendaur XPT usi ng chemiluminescent technology. ??Values obtained [...] e Number [facility] LABORATORY [address] [place] [address] SERVICES documented in this encounter Visit Diagnoses Not on filedocumented in this encounter Care Teams Detective Relationship Specialty Start Date End Date Manuel Isaacs MD PCP - General 04/02/[address] [place] [phone] documented as of this encounter
--- OUTSIDE RECORDS SUMMARY | 2022-03-05 01:52 | XMS_ITS | Encounter Summary ---
:1940 Author Organization [facility] Address [address] [place] [address] Care Team Providers Name Role Phone Nayan Hilton Primary Care Provider Encounter Details Date Type Department Care Team Description 11/19/2019 Orders Only [facility] Sophie Benson RN General Surgery - Main [address] [place] [address] [address] [place] [address] Social History Tobacco Use Types Packs/Day Years [...] on filedocumented in this encounter Care Teams Slp Teacher Relationship Specialty Start Date End Date Nayan Hilton DO PCP - General 06/17/17 04/01/20 documented as of this encounter
--- OUTSIDE RECORDS SUMMARY | 2022-03-05 01:52 | XMS_ITS | Encounter Summary ---
:1940 Author Organization [facility] Address [address] [place] [address] Care Team Providers Name Role Phone Nayan Hilton Primary Care Provider Reason for Visit Reason Comments New Patient Visit Flex/sig Colon Cancer Encounter Details Date Type Department Care Team Description 11/19/2019 [facility] Visit [facility] Valerie Zamora MD Malignant neoplasm of General Surgery - [address] [place] [address] ([facility]) (Primary [address] [facility], Main Dx) [place] [address] Pavilion, [place] [phone] (Wo rk) Social History Tobacco Use Types [...] scans and colonoscopy up at [facility]. 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 Works for [employer] and [employer] CT scan of the chest abdomen and [...] confirmed prior to the procedure. With a bi consultant present the patient was placed in the [...] ostomy. I will send the prescriptions to [facility] in [place]. I have also encouraged Joy to increase [...] athologist Signature WBC 9.83 4.00 - 11/19/2019 [facility] 12.40 13:04 EDT CENTER /[facility] LABORATORY SERVICES RBC 3.57 (L) 3.86 - 11/19/2019 [facility] 5.04 M/cmm 13:04 EDT CENTER LABORATORY SERVICES Hemoglobin 8.6 (L) 11.6 - 11/19/2019 [facility] 15.2 gm/dL 13:04 EDT CENTER LABORATORY SERVICES HCT 29.4 (L) 34.9 - 11/19/2019 [facility] 44.4 % 13:04 EDT CENTER LABORATORY SERVICES MCV 82 81 - 98 fl 11/19/2019 [facility] 13:04 EDT CENTER LABORATORY SERVICES MCH 24.1 (L) 26.7 - 11/19/2019 [facility] 33.3 pg 13:04 EDT CENTER LABORATORY SERVICES Hypochromia 1+ 11/19/2019 [facility] 13:04 EDT CENTER LABORATORY SERVICES MCHC 29.3 (L) 32.1 - 11/19/2019 [facility] 35.9 gm/dL 13:04 EDT CENTER LABORATORY SERVICES RDW-CV 17.0 (H) <14.7 % 11/19/2019 [facility] 13:04 EDT CENTER LABORATORY SERVICES RDW-SD 49.7 <50.4 fl 11/19/2019 [facility] 13:04 EDT CENTER LABORATORY SERVICES Anisocytosis 1+ 11/19/2019 [facility] 13:04 EDT CENTER LABORATORY SERVICES PLT 626 (H) 141 - 377 11/19/2019 [facility] K/cmm 13:04 EDT CENTER LABORATORY SERVICES MPV 9.1 (L) 9.5 - 12.7 11/19/2019 [facility] fl 13:04 EDT CENTER LABORATORY SERVICES Specimen Anatomical Collection Method / Collection Time Recei randi Time (Source) Location / Volume Laterality Blood VENOUS BLOOD / Venipuncture / 11/19/2019 12:36 020 Unknown Unknown EDT 12:55 EDT Valerie Zamora MD HEMATOLOGY & PF4 ORDERABLES Performing Organization Address City/State/ZIP Code Phon e Number [facility] [address] [place] [address] SERVICES CREATININE (11/19/2019 12:36 EDT) P athologist Signature Creatinine 0.81 0.52 - 1.04 11/19/2019 [facility] mg/dL 13:23 EDT CENTER LABORATORY SERVICES eGFR [...] BLOOD GAS ORDERA BLES Performing Organization Address City/[facility] [address]/ZIP Code Phon e Number [facility] [address] [place] [address] SERVICES BUN (11/19/2019 12:36 EDT) athologist Signature BUN 18 10 - 26 11/19/2019 [facility] mg/dL 13:23 EDT CENTER LABORATORY SERVICES Specimen Anatomical Collection Method / Collection Time Recei randi Time (Source) Location / Volume Laterality Blood VENOUS BLOOD / Venipuncture / 11/19/2019 12:36 020 Unknown Unknown EDT 12:54 EDT Valerie Zamora MD CHEMISTRY & BLOOD GAS ORDERA BLES Performing Organization Address [facility] [address]/[facility] Phon e Number [facility] [address] [place] [address] SERVICES (ABNORMAL) ELECTROLYTES (11/19/2019 12:36 EDT) P [...] Organization Address City/State/ZIP Code Phon e Number [facility] [address] [place] [address] SERVICES PRE-OP BLOOD BANK DRAW (11/19/2019 12:36 EDT) [facility] gist Method Time Signature Hold BB Specimen valid 11/19/2019 [facility] up to 30 days 14:36 EDT CENTER BLOOD from collection BANK date. Specimen Anatomical Collection Method / Collection Time Recei randi Time (Source) Location / Volume Laterality Blood VENOUS BLOOD / Venipuncture / 11/19/2019 12:36 020 Unknown Unknown EDT 12:48 EDT Valerie Zamora MD BLOOD BANK TESTS Performing Organization Address City/[facility] [address]/ZIP Code Phon e Number [facility] [address] [place] [address] documented in this encounter Visit Diagnoses Diagnosis [...] 11/19/2019 documented in this encounter Care Teams Panelboard Tank Pumper Relationship Specialty Start Date End Date Nayan Hilton DO PCP - General 06/17/17 04/01/20 documented as of this encounter
--- OUTSIDE RECORDS SUMMARY | 2022-03-05 01:52 | XMS_ITS | Encounter Summary ---
:1940 Author Organization [facility] Address [address] [place] [address] Care Team Providers Name Role Phone Manuel Isaacs MD Primary Care Provider Encounter Details Date Type Department Care Team Description 08/07/2021 Lab Requisition [facility] Outr Resulting Lab, Pathology & Laboratory Provider [facility] [address] [place] [address] Social History Tobacco Use Types [...] athologist Signature CEA 5.1 See Note 08/07/2021 [facility] ng/mL 18:38 EDT CENTER LABORATORY [...] of malignant disease. ?? Assayed on Siemens Ziegleraur XPT usi ng chemiluminescent technology. ??Values obtained [...] Number [facility] [address] [place] [address] SERVICES documented in this encounter Visit Diagnoses Not on filedocumented in this encounter Care Teams Poker Machine Attendant Relationship Specialty Start Date End Date Manuel Isaacs MD PCP - General 04/02/[address] [place] [phone] documented as of this encounter
--- OUTSIDE RECORDS SUMMARY | 2022-03-05 01:52 | XMS_ITS | Encounter Summary ---
:1940 Author Organization [facility] Address [address] [place] [address] Care Team Providers Name Role Phone Manuel Isaacs MD Primary Care Provider Encounter Details Date Type Department Care Team Description 08/21/2021 Lab Requisition [facility] Outr Resulting Lab, Pathology & Laboratory Provider [facility] [address] [place] [address] Social History Tobacco Use Types [...] athologist Signature CEA 4.3 See Note 08/21/2021 [facility] ng/mL 19:30 EDT CENTER LABORATORY SERVICES [...] of malignant disease. ?? Assayed on Siemens pocketvillageaur XPT usi ng chemiluminescent technology. ??Values obtained by different assay methods cannot be used interchangeably. Specimen Anatomical Collection Method Collection Time Receive d Time (Source) Location / / Volume Laterality Blood VENOUS BLOOD / 08/21/2021 9:30 08/21/2021 Unknown EDT 18:01 EDT Provider Outr Resulting Lab CHEMISTRY & BLOOD GAS JULIA GALARZA Performing Organization Address City/State/ZIP Code Phon e Number [facility] [address] [place] [address] SERVICES documented in this encounter Visit Diagnoses Not on filedocumented in this encounter Care Teams Drapery Counselor Relationship Specialty Start Date End Date Manuel Isaacs MD PCP - General 04/02/[address] [place] [phone] documented as of this encounter
--- OUTSIDE RECORDS SUMMARY | 2022-03-05 01:52 | XMS_ITS | Encounter Summary ---
:1940 Author Organization [facility] Address [address] [place] [address] Care Team Providers Name Role Phone Manuel Isaacs MD Primary Care Provider Encounter Details Date Type Department Care Team Description 08/28/2021 Lab Requisition [facility] Outr Resulting Lab, Pathology & Laboratory Provider [facility] [address] [place] [address] Social History Tobacco Use Types [...] athologist Signature CEA 3.4 See Note 08/28/2021 [facility] ng/mL 19:26 EDT CENTER LABORATORY SERVICES [...] of malignant disease. ?? Assayed on Siemens VirtualWorks Groupaur XPT usi ng chemiluminescent technology. ??Values obtained by different assay methods cannot be used interchangeably. Specimen Anatomical Collection Method Collection Time Receive d Time (Source) Location / / Volume Laterality Blood VENOUS BLOOD / 08/28/2021 6:55 08/28/2021 Unknown EDT 17:04 EDT Provider Outr Resulting Lab CHEMISTRY & BLOOD GAS JULIA GALARZA Performing Organization Address City/State/ZIP Code Phon e Number [facility] [address] [place] [address] SERVICES documented in this encounter Visit Diagnoses Not on filedocumented in this encounter Care Teams Telecommunications Network Planner Relationship Specialty Start Date End Date Manuel Isaacs MD PCP - General 04/02/[address] [place] [phone] documented as of this encounter
--- OUTSIDE RECORDS SUMMARY | 2022-03-05 01:52 | XMS_ITS | Encounter Summary ---
:1940 Author Organization [facility] Address [address] [place] [address] Care Team Providers Name Role Phone Manuel Isaacs MD Primary Care Provider Encounter Details Date Type Department Care Team Description 05/26/2021 Lab Requisition [facility] Outr Resulting Lab, Pathology & Laboratory Provider [facility] [address] [place] [address] Social History Tobacco Use Types [...] athologist Signature CEA 3.1 See Note 05/26/2021 [facility] ng/mL 17:25 EST CENTER LABORATORY [...] of malignant disease. ?? Assayed on Siemens Safe N Clearaur XPT usi ng chemiluminescent technology. ??Values obtained [...] [facility] [address] [place] [address] SERVICES documented in this encounter Visit Diagnoses Not on filedocumented in this encounter Care Teams Juvenile Justice Officer Relationship Specialty Start Date End Date Manuel Isaacs MD PCP - General 04/02/[address] [place] [phone] documented as of this encounter
--- OUTSIDE RECORDS SUMMARY | 2022-03-05 01:52 | XMS_ITS | Encounter Summary ---
:1940 Author Organization [facility] Address [address] [place] [address] Care Team Providers Name Role Phone Manuel Isaacs MD Primary Care Provider Encounter Details Date Type Department Care Team Description 05/20/2021 Lab Requisition [facility] Outr Resulting Lab, Pathology & Laboratory Provider [facility] [address] [place], [place] [id number] Social History Tobacco Use Types Packs/Day Years [...] athologist Signature CEA 2.9 See Note 05/20/2021 [facility] ng/mL 23:10 EST CENTER LABORATORY [...] of malignant disease. ?? Assayed on Siemens MeMeMeaur XPT usi ng chemiluminescent technology. ??Values obtained by different assay methods cannot be used interchangeably. Specimen Anatomical Collection Method Collection Time Receive d Time (Source) Location / / Volume Laterality Blood VENOUS BLOOD / 05/20/2021 8:58 05/20/2021 Unknown EST 21:45 EST Provider Outr Resulting Lab CHEMISTRY & BLOOD GAS JULIA GALARZA Performing Organization Address City/State/ZIP Code Phon e Number [facility] [address] [place] [address] SERVICES documented in this encounter Visit Diagnoses Not on filedocumented in this encounter Care Teams Tool Grinder Operator Surface Relationship Specialty Start Date End Date Manuel Isaacs MD PCP - General 04/02/[address] [place] [phone] documented as of this encounter
--- OUTSIDE RECORDS SUMMARY | 2022-03-05 01:52 | XMS_ITS | Encounter Summary ---
:1940 Author Organization [facility] Address [address] [place] [address] Care Team Providers Name Role Phone Manuel Isaacs MD Primary Care Provider Encounter Details Date Type Department Care Team Description 04/22/2021 Lab Requisition [facility] Outr Resulting Lab, Pathology & Laboratory Provider [facility] [address] [place] [address] Social History Tobacco Use Types [...] athologist Signature CEA 3.6 See Note 04/22/2021 [facility] ng/mL 22:34 EST CENTER LABORATORY SERVICES [...] of malignant disease. ?? Assayed on Siemens Leap.itaur XPT usi ng chemiluminescent technology. ??Values obtained [...] Number [facility] [address] [place] [address] SERVICES documented in this encounter Visit Diagnoses Not on filedocumented in this encounter Care Teams Tenter Feeder Relationship Specialty Start Date End Date Manuel Isaacs MD PCP - General 04/02/[address] [place] [phone] documented as of this encounter
--- OUTSIDE RECORDS SUMMARY | 2022-03-05 01:52 | XMS_ITS | Encounter Summary ---
:1940 Author Organization [facility] Address [address] [place] [address] Care Team Providers Name Role Phone Manuel Isaacs MD Primary Care Provider Encounter Details Date Type Department Care Team Description 04/02/2020 Results Only Imaging [facility] - Alexy Cherry, [facility] Radiology Resul ts [address] [facility] [address] [place] [address] [place], [place] [address] Social History Tobacco Use Types Packs/Day Years [...] ? EXAM: PET/CT SCAN/PET/CT SKULL BASE TO MT EX. D/ (0755) ? CLINICAL INFORMATION: ? C18.9 COLON CANCER ? STAGING ? PET/CT SKULL BASE TO MID-THIGH ? Signs and Symptoms/Comments: ??C1 8.9 COLON CANCER, STAGING. Per ? patient, history of colon surgery in 2019. ? Comparison: Outside CT chest abdo men pelvis on 01/23/2020 and ? 10/30/2019 (from [facility]). ? Technique: 90 minutes following t he IV injection of 16.2 mCi of ? [id number], PET imagi ng was performed from the [...] evidence o f osseous metastatic disease. ? Eight Arm Operator measurements as fo llows: ? * ??Background [...] CC: ? Transcribed Date/Time: 04/02/2020 (0939) ? Communications Controller: ? Printed Date/Time: 04/02/2020 () ? PAGE 3 ? Juliette d Report ? Procedure Note Bashir Tran MD - 04/02/2020Fo rmatting of this note might be different from the original. EXAM: PET/CT SCAN/PET/CT SKULL BASE TO MT EX. D/ (0755) CLINICAL INFORMATION: C18.9 COLON CANCER STAGING PET/CT SKULL BASE TO MID-THIGH Signs and Symptoms/Comments: C18.9 COLO N CANCER, STAGING. Per patient, history of colon surgery in . Comparison: Outside CT chest abdomen pe lvis on 01/23/2020 and 10/30/2019 (from [facility]) . Technique: 90 minutes following the IV injection of 16.2 mCi of Q08-mtancobiummhjbafah, PET imaging was performed from the skull [...] PET evidence of osse ous metastatic disease. Eight Arm Operator measurements as follows: * Background liver uptake: [...] MD CC: Transcribed Date/Time: 04/02/2020 (938 ) Communications Controller: Printed Date/Time: 04/02/2020 (938) PAGE 3 Signed Report Tracee Cherry MD IMG NM ORDERABLES documented in this encounter Visit Diagnoses Not on filedocumented in this encounter Care Teams Wing Scorer Relationship Specialty Start Date End Date Manuel Isaacs MD PCP - General 04/02/[address] [place] [phone] documented as of this encounter
--- OUTSIDE RECORDS SUMMARY | 2022-03-05 01:52 | XMS_ITS | Encounter Summary ---
:1940 Author Organization [facility] Address [address] [place] [address] Care Team Providers Name Role Phone Manuel Isaacs MD Primary Care Provider Encounter Details Date Type Department Care Team Description 10/23/2021 Lab Requisition [facility] Outr Resulting Lab, Pathology & Laboratory Provider [facility] [address] [place], [place] [id number] Social History Tobacco Use Types Packs/Day Years [...] athologist Signature CEA 4.4 See Note 10/23/2021 [facility] ng/mL 22:37 EDT CENTER [...] absence of malignant disease. ?? Assayed on Ensygniaaur XPT usi ng chemiluminescent technology. ??Values obtained by different assay methods cannot be used interchangeably. Specimen Anatomical Collection Method Collection Time Receive d Time (Source) Location / / Volume Laterality Blood VENOUS BLOOD / 10/23/2021 10:47 2 Unknown EDT 21:12 EDT Provider Outr Resulting Lab CHEMISTRY & BLOOD GAS JULIA GALARZA Performing Organization Address City/State/ZIP Code Phon e Number [facility] [address] [place] [address] SERVICES documented in this encounter Visit Diagnoses Not on filedocumented in this encounter Care Teams Statistical Typist Relationship Specialty Start Date End Date Manuel Isaacs MD PCP - General 04/02/[address] [place] [phone] documented as of this encounter
--- OUTSIDE RECORDS SUMMARY | 2022-03-05 01:52 | XMS_ITS | Encounter Summary ---
:1940 Author Organization [facility] Address [address] [place] [address] Care Team Providers Name Role Phone Manuel Isaacs MD Primary Care Provider Encounter Details Date Type Department Care Team Description 12/18/2021 Lab Requisition [facility] Outr Resulting Lab, Pathology & Laboratory Provider [facility] [address] [place], [place] [id number] Social History Tobacco Use Types Packs/Day Years [...] this encounter Results CEA (12/18/2021 13:00 EDT) athologist Signature CEA 3.8 See Note 12/21/2021 [facility] ng/mL 7:49 EDT CENTER LABORATORY SERVICES Comment: % Distribution of CEA (ng/mL): ??0.0 - 2.5 in 98.2% of Nonsmokers and 87.3% of Smokers ??2.6 - 5 in 1.8% of Nonsmokers and 8% of Smokers ??5.1 - 10.1 in 4.7% of Smokers NOTE: Serum CEA concentration should not be in terpeted as absolute evidence for the presence or absence of malignant disease. ?? Assayed on Siemens Viagogoaur XPT usi ng chemiluminescent technology. ??Values obtained by different assay methods cannot be used interchangeably. Specimen Anatomical Collection Method Collection Time Receive d Time (Source) Location / / Volume Laterality Blood VENOUS BLOOD / 12/18/2021 13:00 2 Unknown EDT 21:05 EDT Provider Outr Resulting Lab CHEMISTRY & BLOOD GAS JULIA GALARZA Performing Organization Address City/State/ZIP Code Phon e Number [facility] [address] [place] [address] SERVICES documented in this encounter Visit Diagnoses Not on filedocumented in this encounter Care Teams Cardiothoracic Icu Rn Relationship Specialty Start Date End Date Manuel Isaacs MD PCP - General 04/02/[address] [place] [phone] documented as of this encounter
--- OUTSIDE RECORDS SUMMARY | 2022-03-05 01:52 | XMS_ITS | Encounter Summary ---
:1940 Author Organization [facility] Address [address] [place] [address] Care Team Providers Name Role Phone Manuel Isaacs MD Primary Care Provider Encounter Details Date Type Department Care Team Description 02/19/2022 Lab Requisition [facility] Outr Resulting Lab, Pathology & Laboratory Provider [facility] [address] [place], [place] [id number] Social History Tobacco Use Types Packs/Day Years [...] Date/Time Associated Diagnosis Comme nts CEA Routine 02/19/2022 8:20 EST Results for this procedure are i n the results section . documented in this encounter Results CEA (02/19/2022 8:20 EST) athologist Signature CEA 4.3 See Note 02/19/2022 [facility] ng/mL 20:45 EST CENTER LABORATORY SERVICES Comment: % Distribution of CEA (ng/mL): ??0.0 - 2.5 in 98.2% of Nonsmokers and 87.3% of Smokers ??2.6 - 5 in 1.8% of Nonsmokers and 8% of Smokers ??5.1 - 10.1 in 4.7% of Smokers NOTE: Serum CEA concentration should not be in terpeted as absolute evidence for the presence or absence of malignant disease. ?? Assayed on Siemens WebPesadosaur XPT usi ng chemiluminescent technology. ??Values obtained by different assay methods cannot be used interchangeably. Specimen Anatomical Collection Method Collection Time Receive d Time (Source) Location / / Volume Laterality Blood VENOUS BLOOD / 02/19/2022 8:20 02/19/2022 Unknown EST 18:34 EST Provider Outr Resulting Lab CHEMISTRY & BLOOD GAS JULIA GALARZA Performing Organization Address City/State/ZIP Code Phon e Number [facility] [address] [place] [address] SERVICES documented in this encounter Visit Diagnoses Not on filedocumented in this encounter Care Teams Registration Representative Relationship Specialty Start Date End Date Manuel Isaacs MD PCP - General 04/02/[address] [place] [phone] documented as of this encounter
--- OUTSIDE RECORDS SUMMARY | 2022-03-05 01:52 | XMS_ITS | Encounter Summary ---
:1940 Author Organization [facility] Address [address] [place] [address] Care Team Providers Name Role Phone Manuel Isaacs MD Primary Care Provider Encounter Details Date Type Department Care Team Description 11/06/2021 Lab Requisition [facility] Outr Resulting Lab, Pathology & Laboratory Provider [facility] [address] [place] [address] Social History Tobacco Use Types [...] athologist Signature CEA 3.8 See Note 11/09/2021 [facility] ng/mL 10:08 EDT CENTER LABORATORY SERVICES [...] absence of malignant disease. ?? Assayed on DuraFizzaur XPT usi ng chemiluminescent technology. ??Values obtained by different assay methods cannot be used interchangeably. Specimen Anatomical Collection Method Collection Time Receive d Time (Source) Location / / Volume Laterality Blood VENOUS BLOOD / 11/06/2021 9:55 11/06/2021 Unknown EDT 17:15 EDT Provider Outr Resulting Lab CHEMISTRY & BLOOD GAS JULIA GALARZA Performing Organization Address City/State/ZIP Code Phon e Number [facility] [address] [place] [address] SERVICES documented in this encounter Visit Diagnoses Not on filedocumented in this encounter Care Teams Housekeeping Attendant Relationship Specialty Start Date End Date Manuel Isaacs MD PCP - General 04/02/[address] [place] [phone] documented as of this encounter
--- OUTSIDE RECORDS SUMMARY | 2022-03-05 01:52 | XMS_ITS | Encounter Summary ---
:1940 Author Organization [facility] Address [address] [place] [address] Care Team Providers Name Role Phone Manuel Isaacs MD Primary Care Provider Encounter Details Date Type Department Care Team Description 09/25/2021 Lab Requisition [facility] Outr Resulting Lab, Pathology & Laboratory Provider [facility] [address] [place] [address] Social History Tobacco Use Types [...] this encounter Results CEA (09/25/2021 8:50 EDT) athologist Signature CEA 4.3 See Note 09/25/2021 [facility] ng/mL 22:04 EDT CENTER LABORATORY SERVICES Comment: % Distribution of CEA (ng/mL): ??0.0 - 2.5 in 98.2% of Nonsmokers and 87.3% of Smokers ??2.6 - 5 in 1.8% of Nonsmokers and 8% of Smokers ??5.1 - 10.1 in 4.7% of Smokers NOTE: Serum CEA concentration should not be in terpeted as absolute evidence for the presence or absence of malignant disease. ?? Assayed on Sustainable Industrial Solutionsaur XPT usi ng chemiluminescent technology. ??Values obtained by different assay methods cannot be used interchangeably. Specimen Anatomical Collection Method Collection Time Receive d Time (Source) Location / / Volume Laterality Blood VENOUS BLOOD / 09/25/2021 8:50 09/25/2021 Unknown EDT 20:06 EDT Provider Outr Resulting Lab CHEMISTRY & BLOOD GAS JULIA GALARZA Performing Organization Address City/State/ZIP Code Phon e Number [facility] [address] [place] [address] SERVICES documented in this encounter Visit Diagnoses Not on filedocumented in this encounter Care Teams Host Coordinator Relationship Specialty Start Date End Date Manuel Isaacs MD PCP - General 04/02/[address] [place] [phone] documented as of this encounter
--- OUTSIDE RECORDS SUMMARY | 2022-03-05 01:52 | XMS_ITS | Clinical Summary ---
:1940 Author Organization [facility] Address [address] [place] [address] Care Team Providers Name Role Phone Manuel [...] Noted Date Colon cancer, ascending ([facility]) 11/19/2019 Malignant neoplasm of colon 11/19/2019 Overview: Added automatically from request for juan carlos contreras [id number] Sepsis 09/03/2015 Intra-abdominal infection 09/03/2015 Colon polyp 03/04/2011 Family history of polyps in the colon 03/04/2011 Encounters Date Type Specialty Care Team Description 02/19/2022 Lab Requisition Clinical Laboratory Outr Resulting Lab , Provider 01/29/2022 Lab Requisition Clinical Laboratory Outr Resulting [...] n the results section . CEA Routine 01/29/2022 8:00 EDT Results for [...] . from Last 3 Months Results CEA (02/19/2022 8:20 EST)Only the most recent of5 resultswithin the time period is included. athologist Signature CEA 4.3 See Note 02/19/2022 [facility] ng/mL 20:45 EST CENTER LABORATORY SERVICES [...] Lab CHEMISTRY & BLOOD GAS JULIA GALARZA [facility] Organization Address City/State/ZIP Code Phon e Number [facility] [address] [place] [address] SERVICES from Last 3 Months Insurance Payer Benefit Plan / Subscriber ID Effective Dates Phone Addre ss Type Group MEDICARE MEDICARE A/B [id number] 2007-Present [id number] [place] [id number] Joy Armstrong Personal/Family Self 1940 [address]Home) [place] [address] Joy Armstrong Personal/Family Self 1940 [address]Home) [place] [address] Joy Armstrong Personal/Family Self 1940 [address]Home) [place] [address] Joy Armstrong Personal/Family Self 1940 [address]) [place] [address] Joy Armstrong Personal/Family Self [address] [place] [address] Joy Armstrong Personal/Family Self 1940 [address] (Home) [place] [address] Joy Armstrong Personal/Family Self 1940 [address] (Home) [place] [employer] [place] [address] Advance Directives For more information, please contact: [phone] Latest Code Status on File Code Status Date Activated Date Inactivated Comments Full Code 09/03/2015 13:11 09/07/2015 15:54 Reason for decision includes: Full code consistent with over all plan of care Who participated in the discussion? Patient Care Teams Ceramic Designer Relationship Specialty Start Date End Date Manuel Isaacs MD PCP - General 04/02/[address] [place] [phone]
--- OUTSIDE RECORDS SUMMARY | 2022-03-05 01:52 | XMS_ITS | Encounter Summary ---
:1940 Author Organization [facility] Address [address] [place] [address] Care Team Providers Name Role Phone Nayan Hilton Primary Care Provider Reason for Visit Reason Onset Date Comments Other 11/20/2019 Encounter Details Date Type Department Care Team Description 11/20/2019 Telephone [facility] Valerie Sams MD Other Surgery - [facility] [address] [address] [address], [place], [place] [address] (Wo rk) Social History [...] Asking if she can speak with Dr Zamroa and would like to have COVID testing done in [place]. 11/20: I have spoken again with Joy. I have tried to explain that an ostomy is the best option in regards to her surgery. I did advise her she was welcome to persue a second opinion perhaps at [facility] She is upset, crying, still does not understand the complexity of her surgery. I have asked her totake a couple of days and talk it over with her and call me back with a decision. I will also reach out to Dr Isaacs's office for their help coordinating COVID testing at [facility] if she agress to proceed with surgery and to help support Joy with her decision. Telephone Encounter - Jennifer Arias - 11/20/2019 1152 EDT Pt calling with questions for the nurse/ please return call documented in this encounter Plan of Treatment Not on filedocumented as of this encounter Visit Diagnoses Not on filedocumented in this encounter Care Teams Travel Guide Relationship Specialty Start Date End Date Nayan Hilton DO PCP - General 06/17/17 04/01/20 documented as of this encounter
--- OUTSIDE RECORDS SUMMARY | 2022-03-05 01:52 | XMS_ITS | Encounter Summary ---
:1940 Author Organization [facility] Address [address] [place] [address] Care Team Providers Name Role Phone Nayan [...] on filedocumented in this encounter Care Teams Dermatopathologist Relationship Specialty Start Date End Date Nayan Hilton DO PCP - General 06/17/17 04/01/20 documented as of this encounter
--- OUTSIDE RECORDS SUMMARY | 2022-03-05 01:52 | XMS_ITS | Encounter Summary ---
:1940 Author Organization [facility] Address [address] [place] [address] Care Team Providers Name Role Phone Nayan Hilton DO Primary Care Provider Reason for Visit Reason Onset Date Comments Orders (Non Pre-visit) 11/19/2019 Encounter Details Date Type Department Care Team Description 11/19/2019 Orders Only [facility] Mehdi Kapadia MD Pre-op testing Urology - [facility] [address] [place] (Primary Dx) [address] [place], [place] [phone] [place] [address] [place], [address] [place] [address] (Wo rk) Social History Tobacco [...] unspecified documented in this encounter Care Teams Electrophysiology Scientist Relationship Specialty Start Date End Date Nayan Hilton, PCP - General 06/17/17 04/01/20 documented as of this encounter
--- OUTSIDE RECORDS SUMMARY | 2022-03-05 01:52 | XMS_ITS | Encounter Summary ---
:1940 Author Organization [facility] Address [address] [place] [address] Care Team Providers Name Role Phone Manuel Isaacs MD Primary Care Provider Encounter Details Date Type Department Care Team Description 06/12/2021 Lab Requisition [facility] Outr Resulting Lab, Pathology & Laboratory Provider [facility] [address] [place], [place] [id number] Social History Tobacco Use Types Packs/Day Years [...] athologist Signature CEA 3.8 See Note 06/12/2021 [facility] ng/mL 18:20 EST CENTER LABORATORY SERVICES [...] of malignant disease. ?? Assayed on Siemens [employer] XPT usi ng chemiluminescent technology. ??Values obtained by different assay methods cannot be used interchangeably. Specimen Anatomical Collection Method Collection Time Receive d Time (Source) Location / / Volume Laterality Blood VENOUS BLOOD / 06/12/2021 8:05 06/12/2021 Unknown EST 17:23 EST Provider Outr Resulting Lab CHEMISTRY & BLOOD GAS JULIA GALARZA Performing Organization Address City/State/ZIP Code Phon e Number [facility] [address] [place] [address] SERVICES documented in this encounter Visit Diagnoses Not on filedocumented in this encounter Care Teams Puddler Pile Driving Relationship Specialty Start Date End Date Manuel Isaacs MD PCP - General 04/02/[address] [place] [phone] documented as of this encounter
--- OUTSIDE RECORDS SUMMARY | 2022-03-05 01:52 | XMS_ITS | Encounter Summary ---
:1940 Author Organization [facility] Address [address] [place] [address] Care Team Providers Name Role Phone Manuel Isaacs MD Primary Care Provider Encounter Details Date Type Department Care Team Description 01/01/2022 Lab Requisition [facility] Outr Resulting Lab, Pathology & Laboratory Provider [facility] [address] [place], [place] [id number] Social History Tobacco Use Types Packs/Day Years [...] athologist Signature CEA 4.2 See Note 01/01/[address] [facility] ng/mL 19:35 EDT CENTER LABORATORY SERVICES [...] of malignant disease. ?? Assayed on Siemens [employer]aur XPT usi ng chemiluminescent technology. ??Values obtained by different assay methods cannot be used interchangeably. Specimen Anatomical Collection Method Collection Time Receive d Time (Source) Location / / Volume Laterality Blood VENOUS BLOOD / 01/01/2022 8:00 01/01/2022 Unknown EDT 18:20 EDT Provider Outr Resulting Lab CHEMISTRY & BLOOD GAS JULIA GALARZA Performing Organization Address City/State/ZIP Code Phon e Number [facility] [address] [place] [address] SERVICES documented in this encounter Visit Diagnoses Not on filedocumented in this encounter Care Teams Custom Tailor Relationship Specialty Start Date End Date Manuel Isaacs MD PCP - General 04/02/[address] [place] [phone] documented as of this encounter
--- OUTSIDE RECORDS SUMMARY | 2022-03-05 01:52 | XMS_ITS | Encounter Summary ---
:1940 Author Organization [facility] Address [address] [place] [address] Care Team Providers Name Role Phone Nayan Hilton Primary Care Provider Reason for Visit Reason Comments Advice Only Colon cancer involving the u terus Encounter Details Date Type Department Care Team Description 11/19/2019 Initial consult [facility] Renate Loomis cancer, Gynecologic Oncology MD Kylah MSc ascending ([facility]) - [facility] [address] [place] (Primary Dx) [address] [place], [place] [id number] [place] [address] [address], [address] [place] [address] (Wo rk) Social History Tobacco [...] underwent CT scans and colonoscopy up at [facility]. Colonoscopy with invasive adenocarcinoma of [...] No alcohol use, never smoker. Works for [employer] and [email or web address]. PSH: Surgical history: Tonsillectomy Family history: Mother [...] colon documented in this encounter Care Teams Deli Worker Relationship Specialty Start Date End Date Nayan Hiltno DO PCP - General 06/17/17 04/01/20 documented as of this encounter
--- OUTSIDE RECORDS SUMMARY | 2022-03-05 01:52 | XMS_ITS | Encounter Summary ---
:1940 Author Organization [facility] Address [address] [place] [address] Care Team Providers Name Role Phone Nayan Hilton DO Primary Care Provider Encounter Details Date Type Department Care Team Description 11/19/2019 Orders Only [facility] Valerie Zamora MD Encounter for General Surgery - [address] [facility] laboratory [facility] [address] testing for COVID-19 111 [facility], Main [place] [address] [address] Level 5 patient (Primary Dx) [phone] [place] [phone] (Wo rk) Social History Tobacco Use Types [...] Primary documented in this encounter Care Teams Ob Nurse Relationship Specialty Start Date End Date Nayan Hilton DO PCP - General 06/17/17 04/01/20 documented as of this encounter
--- OUTSIDE RECORDS SUMMARY | 2022-03-05 01:52 | XMS_ITS | Encounter Summary ---
:[address] [facility] Address [address] [place] [address] Care Team Providers Name Role Phone Manuel Isaacs MD Primary Care Provider Encounter Details Date Type Department Care Team Description 07/10/2021 Lab Requisition [facility] Outr Resulting Lab, Pathology & Laboratory Provider [facility] [address] [place], [place] [id number] Social History Tobacco Use Types Packs/Day Years [...] this encounter Results CEA (07/10/2021 8:50 EDT) athologist Signature CEA 6.7 See Note 07/10/2021 [facility] ng/mL 18:31 EDT CENTER LABORATORY SERVICES Comment: % Distribution of CEA (ng/mL): ??0.0 - 2.5 in 98.2% of Nonsmokers and 87.3% of Smokers ??2.6 - 5 in 1.8% of Nonsmokers and 8% of Smokers ??5.1 - 10.1 in 4.7% of Smokers NOTE: Serum CEA concentration should not be in terpeted as absolute evidence for the presence or absence of malignant disease. ?? Assayed on [employer]more [employer]aur XPT usi ng chemiluminescent technology. ??Values obtained by different assay methods cannot be used interchangeably. Specimen Anatomical Collection Method Collection Time Receive d Time (Source) Location / / Volume Laterality Blood VENOUS BLOOD / 07/10/2021 8:50 07/10/2021 Unknown EDT 16:51 EDT Provider Outr Resulting Lab CHEMISTRY & BLOOD GAS JULIA GALARZA Performing Organization Address City/State/ZIP Code Phon e Number [facility] [address] [place] [address] SERVICES documented in this encounter Visit Diagnoses Not on filedocumented in this encounter Care Teams Child Care Associate Teacher Relationship Specialty Start Date End Date Manuel Isaacs MD PCP - General 04/02/[address] [place] [phone] documented as of this encounter
--- OUTSIDE RECORDS SUMMARY | 2022-03-05 01:52 | XMS_ITS | Encounter Summary ---
:1940 Author Organization [facility] Address [address] [place] [address] Care Team Providers Name Role Phone Manuel Isaacs MD Primary Care Provider Encounter Details Date Type Department Care Team Description 10/09/2021 Lab Requisition [facility] Outr Resulting Lab, Pathology & Laboratory Provider [facility] [address] [place], [place] [phone] Social History Tobacco Use Types Packs/Day Years [...] athologist Signature CEA 4.0 See Note 10/09/2021 [facility] ng/mL 18:13 EDT CENTER LABORATORY SERVICES [...] of malignant disease. ?? Assayed on Siemens [employer] B[employer] Pet [employer] XPT usi ng chemiluminescent technology. ??Values obtained by different assay methods cannot be used interchangeably. Specimen Anatomical Collection Method Collection Time Receive d Time (Source) Location / / Volume Laterality Blood VENOUS BLOOD / 10/09/2021 8:12 10/09/2021 Unknown EDT 17:12 EDT Provider Outr Resulting Lab CHEMISTRY & BLOOD GAS JULIA GALARZA Performing Organization Address City/State/ZIP Code Phon e Number [facility] [address] [place] [address] SERVICES documented in this encounter Visit Diagnoses Not on filedocumented in this encounter Care Teams Moulder Operator Relationship Specialty Start Date End Date Manuel Isaacs MD PCP - General 04/02/[address] [place] [phone] documented as of this encounter
--- OUTSIDE RECORDS SUMMARY | 2022-03-05 01:53 | XMS_ITS | Encounter Summary ---
:1940 Author Organization [facility] Address [address] [place] [address] Care Team Providers Name Role Phone Nayan Hilton Primary Care Provider Reason for Referral Laboratory Services (Routine) - New Request Specialty Diagnoses / Procedures Referred By Contact Refer red To Contact Diagnoses Colovesical fistula Bashir Kapadia MD Procedures BACTERIAL CULTURE, URINE [address] [phone] Referral ID Status Reason Start Date Expiration Date Visits V isits Requested Authorized [id number] New Request 11/14/2019 1 1 Reason for Visit Reason Comments New Patient Visit Consult (Urgent) - Authorization Not Required Specialty Diagnoses / Procedures Referred By Contact Refer dontae To Contact Urology Diagnoses Vesicocolic fistula Bashir Kapadia MD [address] [place] [phone] Phone: Fax: Referral ID Status Reason Start Expiration Visits Visits Date Date Requested Authorized [id number] Authorization Not 1 1 Required Encounter Details Date Type Department Care Team Description 11/14/2019 Telemedicine [facility] Mehdi Kapadia MD Colovesical fistula Urology - Main [address] [place] (Primary Dx ) [address] [place], [place] [phone] [place] [address] [place] [phone] (Wo rk) Social History Tobacco Use Types [...] for Consult: Urology was asked to see oJy in consultation at the request of Nayan Hilton. HPI: Joy is a 79 y.o. female with colon cancer. 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 She initially was slated to undergo surgery thisweek at [facility] but ultimately the decision was made to transfer care to [facility]. She underwent an office cystoscopy [...] prepared with voice recognition software. Please excuse technical applications specialist errors. Patient consented to a phone visit. [...] 11/14/2019 documented in this encounter Care Teams Nail Puller Relationship Specialty Start Date End Date Nayan Hilton DO PCP - General 06/17/17 04/01/20 documented as of this encounter
--- OUTSIDE RECORDS SUMMARY | 2022-03-05 01:53 | XMS_ITS | Encounter Summary ---
:1940 Author Organization [facility] Address [address] [place] [address] Care Team Providers Name Role Phone Dacia Hendrix MD Primary Care Provider Encounter Details Date Type Department Care Team Description 12/23/2015 Results Only [facility] PRISM MD Dacia [phone] [address] [place], [place] [id number] (Wo rk) Social History Tobacco Use Types [...] on filedocumented in this encounter Care Teams Chief Investment Officer Relationship Specialty Start Date End Date Dacia Hendrix MD PCP - General 12/23/15 06/16/17 [address] [place] [address] documented as of this encounter
--- OUTSIDE RECORDS SUMMARY | 2022-03-05 01:53 | XMS_ITS | Encounter Summary ---
:[address] [facility] Address [address] [place] [address] Care Team Providers Name Role Phone Jodi Camp MD Primary Care Provider Encounter Details Date Type Department Care Team Description 12/03/2015 Results Only [facility]- Erica Hendrix MD [phone] [address] [place], [place] [address] (Wo rk) Social History Tobacco Use Types [...] on filedocumented in this encounter Care Teams Budget Technician Relationship Specialty Start Date End Date Jodi Camp MD PCP - General 09/03/15 12/22/[address] [address] (work) documented as of this encounter
--- OUTSIDE RECORDS SUMMARY | 2022-03-05 01:53 | XMS_ITS | Encounter Summary ---
:1940 Author Organization [facility] Address [address] [place] [address] Care Team Providers Name Role Phone Nayan Hilton DO Primary Care Provider Reason for Visit (Routine) - Receiving Office to Obtain Authorization Specialty Diagnoses / Procedures Referred By Contact Refer red To Contact Procedures Unknown, Provider, US OUTSIDE IMAGES BODY Phone: Referral ID Status Reason Start Expiration Visits Visits Date Date Requested Authorized [id number] Receiving Office 11/07/2019 1 1 to Obtain Authorization Encounter Details Date Type Department Care Team Description 10/23/2019 Hospital Encounter [facility] Radiology - Main [place] [address] [place] [address] Social History Tobacco Use Types Packs/Day Years [...] on filedocumented in this encounter Care Teams Bung Driver Relationship Specialty Start Date End Date Nayan Hilton DO PCP - General 06/17/17 04/01/20 documented as of this encounter
--- OUTSIDE RECORDS SUMMARY | 2022-03-05 01:53 | XMS_ITS | Encounter Summary ---
:1940 Author Organization [facility] Address [address] [place] [address] Care Team Providers Name Role Phone Fabiano Aranda MD Primary Care Provider Reason for Visit Reason Comments Genetic Evaluation Encounter Details Date Type Department Care Team Description 02/23/2010 Office Visit [facility] Steffen Severino; Hematology & MD [place] Family history of polyps in the colon Oncology - [address] [address] [address], [place] [phone] (Wo rk) Social History Tobacco Use Types [...] Oncology Attending - Steffen Severino MD - [facility] Job ID: SM Doc ID: [id number] Ext Doc ID: [id number] cc: MS Fabiano Sin MD documented in this encounter Care Teams Pediatric Cns Relationship Specialty Start Date End Date Fabiano Aranda MD PCP - General 02/20/10 09/02/[address] [place] [address] [address] [place] [phone] documented as of this encounter
--- OUTSIDE RECORDS SUMMARY | 2022-03-05 01:53 | XMS_ITS | Encounter Summary ---
:1940 Author Organization [facility] Address [address] [place] [address] Care Team Providers Name Role Phone Jodi Camp MD Primary Care Provider Reason for Visit Reason Onset Date Comments Appointment Related 09/10/2015 Call patient with a follow up visit with trauma, She is s/p treatment for presumed perforated appendicitis Encounter Details Date Type Department Care Team Description 09/10/2015 Telephone [facility] Jessica Darby tment Related Acute Care Surgery - MD Pedro (Call patient with a Main [place] [address] [facility] [address] [facility], She is s/p [place], [place] [phone] [place] [address] treatment for presumed [phone] perforated appendicitis) Social History Tobacco Use Types Packs/Day Years [...] on filedocumented in this encounter Care Teams Analog Circuit Designer Relationship Specialty Start Date End Date Jodi Camp MD PCP - General 09/03/15 12/22/15 [facility] [address] [address] documented as of this encounter
--- OUTSIDE RECORDS SUMMARY | 2022-03-05 01:53 | XMS_ITS | Encounter Summary ---
:1940 Author Organization [facility] Address [address] [place] [address] Care Team Providers Name Role Phone Nayan Hilton DO Primary Care Provider Reason for Visit (Routine) - Receiving Office to Obtain Authorization Specialty Diagnoses / Procedures Referred By Contact Refer red To Contact Procedures Unknown, Provider, CT OUTSIDE IMAGES BODY Phone: Referral ID Status Reason Start Expiration Visits Visits Date Date Requested Authorized [id number] Receiving Office 11/07/2019 1 1 to Obtain Authorization Encounter Details Date Type Department Care Team Description 10/03/2019 Hospital Encounter [facility] Radiology - Main [place] [address] [place] [address] Social History Tobacco Use Types Packs/Day Years [...] on filedocumented in this encounter Care Teams Cyberathlete Relationship Specialty Start Date End Date Nayan Hilton DO PCP - General 06/17/17 04/01/20 documented as of this encounter
--- OUTSIDE RECORDS SUMMARY | 2022-03-05 01:53 | XMS_ITS | Encounter Summary ---
:1940 Author Organization [facility] Address [address] [place] [address] Care Team Providers Name Role Phone YobaniNayan Pedro H[place]ISON Primary Care Provider Manuel Isaacs MD Primary Care Provider Encounter Details Date Type Department Care Team Description 10/26/2019 Lab Requisition [facility] Outr Resulting Lab, Pathology & Laboratory Provider [facility] [address] [place], [place] [address] Social History Tobacco Use Types Packs/Day Years [...] athologist Signature CEA 1.5 See Note 10/29/2019 [facility] ng/mL 8:54 EDT CENTER LABORATORY [...] absence of malignant disease. ?? Assayed on [employer] XPT usi ng chemiluminescent technology. ??Values obtained by different assay methods cannot be used interchangeably. Specimen Anatomical Collection Method Collection Time Receive d Time (Source) Location / / Volume Laterality Blood VENOUS BLOOD / 10/26/2019 8:16 10/26/2019 Unknown EDT 21:51 EDT Provider Outr Resulting Lab CHEMISTRY & BLOOD GAS JULIA GALARZA Performing Organization Address City/State/ZIP Code Phon e Number [facility] [address] [place] [address] SERVICES documented in this encounter Visit Diagnoses Not on filedocumented in this encounter Care Teams Cane Burner Relationship Specialty Start Date End Date Nayan Hilton DO PCP - General 06/17/17 04/01/20 Manuel Isaacs MD PCP - General 04/02/[address] [place] [phone] documented as of this encounter
--- OUTSIDE RECORDS SUMMARY | 2022-03-05 01:53 | XMS_ITS | Encounter Summary ---
:1940 Author Organization [facility] Address [address] [place] [address] Care Team Providers Name Role Phone Nayan Hilton Primary Care Provider Reason for Visit Reason Comments Ultrasound Encounter Details Date Type Department Care Team Description 06/20/2017 Initial consult [facility] Shantelle Ureña Flu id in endometrial cavity (Primary Dx); Women's Services - MD Claudine Adnexal mass [facility] [id number] [place], [place] [address]ili, [place] [address] (Wo rk) Social History Tobacco [...] Discharge documented in this encounter Progress Notes Shnatelle Ureña MD - 06/20/2017 1000 EDT CC: [...] organs documented in this encounter Care Teams Interpretive Naturalist Relationship Specialty Start Date End Date Nayan Hilton DO PCP - General 06/17/17 04/01/20 documented as of this encounter
--- OUTSIDE RECORDS SUMMARY | 2022-03-05 01:53 | XMS_ITS | Encounter Summary ---
:1940 Author Organization [facility] Address [address] [place] [address] Care Team Providers Name Role Phone Jodi Camp MD Primary Care Provider Reason for Visit Reason Onset Date Comments Procedure 10/20/2015 schedule echo Follow-up 10/27/2015 Appt /follow up Encounter Details Date Type Department Care Team Description 10/20/2015 Telephone [facility] Juhi Moncada RN Proc edure (schedule Cardiology - Amber echo); Follow-up (Appt [address] /follow up) [place] [address] Social History Tobacco Use Types Packs/Day Years [...] on filedocumented in this encounter Care Teams Bulk Materials Handling Plant Operator Relationship Specialty Start Date End Date Jodi Camp MD PCP - General 09/03/15 12/22/[address] [address] documented as of this encounter
--- OUTSIDE RECORDS SUMMARY | 2022-03-05 01:53 | XMS_ITS | Encounter Summary ---
:1940 Author Organization [facility] Address [address] [place] [address] Care Team Providers Name Role Phone Unavailable Primary Care Provider Unavailable Encounter Details Date Type Department Care Team Description 11/21/2007 Before PRISM Converted [facility] Unknown, Visit (Maple) Adult Primary Care - Provider, [place] [phone] 1 [facility] (Work) [place] [address] Social History Tobacco Use Types Packs/Day Years [...] Component Value Ref Test Analysis Performed At [facility] Method Time Signature Pathology CYTOPATHOLOGY REPORT ? [facility] Report: ? [facility] Reports generated via [address]r [address] Mobile interface contain original data; ? however they are lacking the format of the original report. ? Caution should be taken when reading/interpreting unformatted reports. ? Name: ? JOY CUNHA ? Accession #: ? [id number] ? : ? 1940 (Age: 67) ??F [...] [facility] [address] [place] [address] SERVICES [facility] [address] [place] [phone] documented in this encounter Visit Diagnoses Not on filedocumented in this encounter
--- OUTSIDE RECORDS SUMMARY | 2022-03-05 01:53 | XMS_ITS | Encounter Summary ---
:1940 Author Organization [facility] Address [address] [place] [address] Care Team Providers Name Role Phone Jodi Camp MD Primary Care Provider Encounter Details Date Type Department Care Team Description 10/22/2015 Hospital Encounter [facility] [address] [facility] [address] [place] [phone] Social History Tobacco Use Types Packs/Day Years [...] Code Departure Means Destination Home or Self Usp documented in this encounter Plan of Treatment Not on filedocumented as of this encounter Visit Diagnoses Not on filedocumented in this encounter Care Teams Phlebotomist Lab Assistant Relationship Specialty Start Date End Date Jodi Camp MD PCP - General 09/03/15 12/22/[address] [address] documented as of this encounter
--- OUTSIDE RECORDS SUMMARY | 2022-03-05 01:53 | XMS_ITS | Encounter Summary ---
:1940 Author Organization [facility] Address [address] [place] [address] Care Team Providers Name Role Phone Jodi Camp MD Primary Care Provider Reason for Visit Reason Onset Date Comments Appointment Related 09/29/2015 Encounter Details Date Type Department Care Team Description 09/29/2015 Telephone [facility] Acute Cami Drake R N Appointment Related Care Surgery - Main [place] [address] [place] [address] Social History Tobacco Use Types [...] Encounter - Cami Drake RN - 09/29/2015 6032 EDT Spoke to patient and scheduled follow-up appointment regarding perforated appendicitis. Appointment scheduled for October 07, 2015 at 9 am and she is aware of location. documented in this encounter Plan of Treatment Not on filedocumented as of this encounter Visit Diagnoses Not on filedocumented in this encounter Care Teams Skiing Instructor Relationship Specialty Start Date End Date Jodi Camp MD PCP - General 09/03/15 12/22/[address] [address] documented as of this encounter
--- OUTSIDE RECORDS SUMMARY | 2022-03-05 01:53 | XMS_ITS | Encounter Summary ---
:1940 Author Organization [facility] Address [address] [place] [address] Care Team Providers Name Role Phone YboaniNayan Pedro HARRISON Primary Care Provider Manuel Isaacs MD Primary Care Provider Encounter Details Date Type Department Care Team Description 10/24/2019 Lab Requisition [facility] Outr Resulting Lab, Pathology & Laboratory Provider [facility] [address] [place], [place] [id number] Social History Tobacco Use Types Packs/Day Years [...] Signature CA 125 17 <30 U/mL 10/25/2019 [facility] 12:45 EDT CENTER LABORATORY SERVICES Comment: NOTE: Serum CA 125 concentration should not be interpreted as absolute evidence for the presence or absence of malignant disease. Assayed on CANDDiaur XPT usi ng chemiluminescent technology. ??Values obtained by using different assay methods cannot be used interchangeably. Specimen Anatomical Collection Method Collection Time Receive d Time (Source) Location / / Volume Laterality Blood VENOUS BLOOD / 10/24/2019 10:54 0 Unknown EDT 22:22 EDT Provider Outr Resulting Lab CHEMISTRY & BLOOD GAS JULIA GALARZA Performing Organization Address City/State/ZIP Code Phon e Number [facility] [address] [place] [address] SERVICES documented in this encounter Visit Diagnoses Not on filedocumented in this encounter Care Teams General Utility Worker Relationship Specialty Start Date End Date Nayan Hilton DO PCP - General 06/17/17 04/01/20 Manuel Isaacs MD PCP - General 04/02/[address] [place] [phone] documented as of this encounter
--- OUTSIDE RECORDS SUMMARY | 2022-03-05 01:53 | XMS_ITS | Encounter Summary ---
:[address] [facility] Address [address] [place] [address] Care Team Providers Name Role Phone Unavailable Primary Care Provider Unavailable Encounter Details Date Type Department Care Team Description 05/08/2004 Results Only [facility] - Kristen flowers, Provider, conversion [address] [facility] [place], [place] [id number] Social History Tobacco Use Types Packs/Day Years [...] encounter Results VITAMIN B12 (05/08/2004 8:08 EST) P athologist Signature Vitamin B-12 293 250 - 1100 [facility] pg/ml LAB Specimen Anatomical Collection Method Collection Time Receive d Time (Source) Location / / Volume Laterality 05/08/2004 8:08 05/08/2004 EST 20:32 EST Provider Unknown CHEMISTRY & BLOOD GAS ORDERA BLES Performing Organization Address City/State/ZIP Code Phon e Number [facility] [address] [place] [address] SERVICES [facility] [address] [place] [address] documented in this encounter Visit Diagnoses Not on filedocumented in this encounter
--- OUTSIDE RECORDS SUMMARY | 2022-03-05 01:53 | XMS_ITS | Encounter Summary ---
:1940 Author Organization [facility] Address [address] [place] [address] Care Team Providers Name Role Phone Jodi Camp MD Primary Care Provider Reason for Referral Cardiology (Routine) - Closed Specialty Diagnoses / Procedures Referred By Contact Refer red To Contact Diagnoses Right ventricular dilation Contreras Preston MD Procedures ECHOCARDIOGRAM [address] [place] [address] Referral ID Status Reason Start Date Expiration Date Visits Requ ested Visits Authorized [id number] Closed 10/13/2015 1 1 Encounter Details Date Type Department Care Team Description 10/13/2015 Orders Only [facility] Juhi Moncada, Right v entricular Cardiology - Amber KOENIG dilation (Primary Dx) [address] [place], [place] [address] Social History Tobacco Use [...] [facility] Cardiology* [address] [place] [address] Date of study: 10/22/2015 Transthoracic Echocardiography M-mode, [...] ? Contreras Preston REFERRING ?Contreras Preston r RAILWAY HEAD TENDER ??Sophie Acharya PERFORMING ?? [facility], Op RAILWAY HEAD TENDER ??Junior Renee *PROCEDURE DATA* Procedure information: [...] [facility] Cardiology* [address] [place] [address] Date of study: 10/22/2015 Transthoracic Echocardiography M-mode, [...] ORDERING Contreras Preston REFERRING Contreras Preston r RAILWAY HEAD TENDER Sophie Acharya PERFORMING [facility], RAILWAY HEAD TENDER Junior Renee *PROCEDURE DATA* Procedure information: [...] Cardiomegaly documented in this encounter Care Teams Career Center Advisor Relationship Specialty Start Date End Date Jodi Camp MD PCP - General 09/03/15 12/22/[address] [address] documented as of this encounter
--- OUTSIDE RECORDS SUMMARY | 2022-03-05 01:53 | XMS_ITS | Encounter Summary ---
:1940 Author Organization [facility] Address [address] [place] [address] Care Team Providers Name Role Phone YobaniNayan Pedro HARRISON Primary Care Provider Manuel Isaacs MD Primary Care Provider Encounter Details Date Type Department Care Team Description 10/19/2019 Lab Requisition [facility] Outr Resulting Lab, Pathology & Laboratory Provider [facility] [address] [place], [place] [phone] Social History Tobacco Use Types Packs/Day Years [...] TEST (10/19/2019 11:54 EDT) Analysis [facility] Time Signature COVID-19 NEGATIVE Negative 10/21/2019 [facility] [...] Number [facility] [place] COVID-19 TESTING (10/19/2019 11:54 EDT) Analysis [...] Administration's Emergency Use Authorization. Performing Lab [email or web address] [facility] 10/21/2019 20:4 9 EDT [facility] SERVICES Specimen Anatomical Collection Method Collection Time Receive d Time (Source) Location / / Volume Laterality Swab 10/19/2019 11:54 10/19/2019 EDT 21:12 EDT Provider Outr Resulting Lab MICROBIOLOGY - GENERAL ORD ERABLES Performing Organization Address City/State/ZIP Code Phon e Number [facility] [address] [place] [address] [facility] [place], [place] documented in this encounter Visit Diagnoses Not on filedocumented in this encounter Care Teams Sap Ppm Consultant Relationship Specialty Start Date End Date Nayan Hilton, PCP - General 06/17/17 04/01/20 Manuel Isaacs MD PCP - General 04/02/[address] [place] [phone] documented as of this encounter
--- OUTSIDE RECORDS SUMMARY | 2022-03-05 01:53 | XMS_ITS | Encounter Summary ---
:1940 Author Organization [facility] Address [address] [place] [address] Care Team Providers Name Role Phone YobaniNayan Pedro HARRISON Primary Care Provider Manuel Isaacs MD Primary Care Provider Encounter Details Date Type Department Care Team Description 10/16/2019 Lab Requisition [facility] Dank Arciniega Ot her specified Pathology & MD disorders of bladder Laboratory Medicine [address] [place] [address] Dr [address] [place], [place] [phone] [place] [id number] Social History Tobacco Use Types Packs/Day Years [...] Priority Date/Time Associated Diagnosis Comme nts NON SOCK FOLDER/FNA Today 10/16/2019 11:09 Results for this CYTOLOGY EDT procedure are i n the results section. documented in this encounter Results NON SOCK FOLDER/FNA CYTOLOGY (10/16/2019 11:09 EDT) Component Value Ref Test Analysis Performed At [facility] gist Range Method Time Signature Final URINE, BARBOTAGE, CYTOLOGIC EVALUATION: 10/17/2019 [facility] Electronically Diagnosis - Atypical urothelial cells. See comment. 15:28 EDT CENTER signed by Mustapha, LABORATORY Alona Carpenter MD SERVICES on 10/17/19 at 1528 Attestation There was significant reside nt/fellow involvement in the diagnostic evaluation of this case. 10/17/2019 [facility] Sandy ctronically By the signature below, the attending physician certifies that they have personally conducted a gross and/or microscopic 15:28 EDT CENTER signed by Mustapha, examination of the described specimens and rendered or confirmed the above diagnosis. LABORATORY Alona Waggoner MD SERVICES on 10/17/19 at 1528 Diagnosis Cytologic 10/17/2019 [facility] Comment evaluation 15:28 EDT CENTER reveals several [...] advised. Clinical N32.89 - Mass of 10/17/2019 [facility] MED[facility] History urinary bladder. 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 10/17/2019 [facility] AL Description 15:28 EDT CENTER LABORATORY SERVICES Resident/Marcus Browne, 10/17/2019 [facility] DEZ KRYSTYNA w: DO 15: EDT CENTER LABORATORY SERVICES Scanned Images 10/17/2019 [facility] MEDICAL 15:28 EDT CENTER LABORATORY SERVICES Specimen Anatomical Collection Method Collection Time Receive d Time (Source) Location / / Volume Laterality ZZUNK URINE SPECIMEN / 10/16/2019 11:09 020 7:25 Unknown EDT EDT Dank Arciniega MD PATHOLOGY ORDERABLES Performing Organization Address City/State/ZIP Code Phon e Number [facility] [address] [place] [address] SERVICES documented in this encounter Visit Diagnoses Diagnosis Other specified disorders of bladder documented in this encounter Care Teams Multimedia Instructional Designer Relationship Specialty Start Date End Date Nayan Hilton DO PCP - General 06/17/17 04/01/20 Manuel Isaacs MD PCP - General 04/02/[address] [place] [phone] documented as of this encounter
--- OUTSIDE RECORDS SUMMARY | 2022-03-05 01:53 | XMS_ITS | Encounter Summary ---
:1940 Author Organization [facility] Address [address] [place] [address] Care Team Providers Name Role Phone Dacia Hendrix MD Primary Care Provider [phone] Encounter Details Date Type Department Care Team Description 06/21/[address] [facility] - Adele Ureña [facility] MD Claudine [phone] [address] [facility], Level [address] [place] [address] (Wo rk) Social History Tobacco [...] on filedocumented in this encounter Care Teams Crossband Layer Relationship Specialty Start Date End Date Dacia Hendrix MD PCP - General 12/23/15 06/16/[address] [place] [address] documented as of this encounter
--- OUTSIDE RECORDS SUMMARY | 2022-03-05 01:53 | XMS_ITS | Encounter Summary ---
:1940 Author Organization [facility] Address [address] [place] [address] Care Team Providers Name Role Phone YobaniNayan Pedro HARRISON Primary Care Provider Manuel Isaacs MD Primary Care Provider Encounter Details Date Type Department Care Team Description 10/24/2019 Lab Requisition [facility] Jamie Jean-Baptiste E ncounter for other Pathology & general examination Laboratory Medicine [address] [place] [address] [address] [place] [address] [place], [place] [address] Social History Tobacco Use Types Packs/Day Years [...] of MLH1, PMS2, MSH2 and MSH6 10/29/2019 [facility] MEDICAL Addendum Studies 11:52 EDT CENTER electronic [...] 1152 ANTIBODY (CLONE) (BLOCK): RESULT MLH1 (M1, [place]) (block A-3): Retained expression in tumor PMS2 (A16-4, [place]) (block A-3): Retained expression in tu mor MSH2 ([id number], [place]) (block A-3): Retained expression i n tumor MSH6 (SP93, [place]) (block A-3): Retained expression in yaya or [...] performance characteristics have been determined by [facility] and/or by the referring laboratory. The positive and negative controls worked appropriately. This laboratory is certified under the Clinical Labor atory Improvement Amendments of 1988 (CLIA-88) as qualified to perform high complexity clinical laboratory testing. Final A. COLON, SIGMOID,MASS, BIOPSY: 2019 [facility] MEDICAL Electronically Diagnosis - Invasive adenocarcinoma, m oderately differentiated, colorectal primary 11:52 T CENTER signed by - See comment. LABORATORY Cecilia Reyez ch, TRUNG HINKLE on 10/25 B. COLON, SIGMOID, POLYP, BIOPSY: at 1644 - Hyperplastic polyp Attestation There was significant 10/29/2019 [facility] M EDICAL Electronically resident/fellow 11:52 [facility] sign ed by involvement in the LABORATORY Cecilia Newby, diagnostic evaluation SERVICES on 10/26/2019 of this case. By the at 1644 signature below, the attending physician certifies that they have personally conducted a gross and/or microscopic examination of the described specimens and rendered or confirmed the above diagnosis. Diagnosis Immunoperoxidase stains were performed on this case to further characterize the lesion. 10/29/2019 [facility] MEDICAL Comment ANTIBODY(CLONE)(BLOCK):RESULT 11:52 [facility] CK7 (RN7, [place]) (A3): Negative LABORATORY [...] in a separate report. 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 Received in formalin labe lled with proper patient identification (initials H, I) and A. Sigmoid mass Bxs is an aggregate of firm pale pate focally brown tissue (1.4 x 1.3 x 0.3 cm). Entirely submitted in A1-A4. 10/29/2019 [facility] MEDICAL Description 11:52 EDT CENTER B. Received in formalin labe lled with proper patient identification (initials H, I) and B. Sigmoid polyp are three firm pale pate focally pate tissues (0.3 x 0.2 x 0.1 cm to 0.2 x 0.2 x 0.2 cm). Entirely submitted in B1. LABORATORY SERVICES Dharmesh Yousif 10/25/2019 8:37 Resident/Reinier Randolph MD 10/29/2019 [facility] MEDICAL ow: 11:52 EDT CENTER LABORATORY SERVICES Scanned 10/29/2019 [facility] MEDICAL Images 11:52 T CENTER LABORATORY SERVICES Specimen Anatomical Collection Method Collection Time Receive d Time (Source) Location / / Volume Laterality Tissue ENTIRE SIGMOID 10/24/2019 9:50 10/25/2019 7:03 COLON / Unknown EDT EDT Tissue specimen 10/24/2019 9:50 0 7:04 (specimen) EDT EDT (Colon, Polyp) Jamie Jean-Baptiste MD PATHOLOGY ORDERABLES Performing Organization Address City/State/ZIP Code Phon e Number [facility] [address] [place] [address] SERVICES documented in this encounter Visit Diagnoses Diagnosis Encounter for other general examination documented in this encounter Care Teams Websphere Process Server Developer Relationship Specialty Start Date End Date Nayan Hilton DO PCP - General 06/17/17 04/01/20 Manuel Isaacs MD PCP - General 04/02/[address] [place] [phone] documented as of this encounter
--- OUTSIDE RECORDS SUMMARY | 2022-03-05 01:53 | XMS_ITS | Encounter Summary ---
:1940 Author Organization [facility] Address [address] [place] [address] Care Team Providers Name Role Phone Unavailable Primary Care Provider Unavailable Encounter Details Date Type Department Care Team Description 08/07/2008 Orders Only [facility] Adult Unknown , Provider, Primary Care - Concepcion mcnamara 1 [facility] [place], [place] [phone] Social History Tobacco Use Types Packs/Day Years [...] e Number [facility] [address] [place] [address] SERVICES [facility] [address] [place] [address] documented in this encounter Visit Diagnoses Not on filedocumented in this encounter
--- OUTSIDE RECORDS SUMMARY | 2022-03-05 01:53 | XMS_ITS | Encounter Summary ---
:1940 Author Organization [facility] Address [address] [place] [address] Care Team Providers Name Role Phone Nayan Hilton DO Primary Care Provider Reason for Visit (Routine) - Receiving Office to Obtain Authorization Specialty Diagnoses / Procedures Referred By Contact Refer red To Contact Procedures Unknown, Provider, MR OUTSIDE IMAGES MSK Phone: Referral ID Status Reason Start Expiration Visits Visits Date Date Requested Authorized [id number] Receiving Office 11/07/2019 1 1 to Obtain Authorization Encounter Details Date Type Department Care Team Description 10/29/2019 Hospital Encounter [facility] Radiology - Main [place] [address] [place] [address] Social History Tobacco Use Types Packs/Day Years [...] on filedocumented in this encounter Care Teams Rectangular Tank Cooper Relationship Specialty Start Date End Date Nayan Hilton DO PCP - General 06/17/17 04/01/20 documented as of this encounter
--- OUTSIDE RECORDS SUMMARY | 2022-03-05 01:53 | XMS_ITS | Encounter Summary ---
:1940 Author Organization Address [address] [place] [address] Care Team Providers Name Role Phone Jodi Camp MD Primary Care Provider Reason for Referral Referral (3 - 10 Business Days) - Closed Specialty Diagnoses / Procedures Referred By Contact Refer red To Contact Cardiology Diagnoses Elevated troponin Sepsis, due to unspecified organism Bianka Schmitt NP [facility] [address] [facility], [place] [address] [address], [address] [place] [phone] Referral ID Status Reason Start Date Expiration Date Visits V isits Requested Authorized [id number] Closed Specialty 09/25/2015 1 1 Services Required [...] to unspecified organism Intra-abdominal infection Nina Power [facility] Ep5 Trauma/Roberto Mcdonough MD Care 111 [facility] [address] [place] [address] [place] [address] Phone: Fax: Referral ID Status Reason Start Date Expiration Date Visits V isits Requested Authorized [id number] Closed Specialty 09/07/2015 1 1 Services Required Question Answer Reason for Request: f/dodd perforated appendicitis Scheduling Comments (optional ? 2 weeks describe specific scheduling needs if applicable): Expected Discharge Date (Inpatient Only): 09/07/2015 Reason for Visit Reason Comments Fever See tcall. Abd mass on CT Encounter Details Date Type Department Care Team Description 09/03/2015 - [facility] Ken Leggett MD 111 [facility], [facility] 1 [place] [phone] Sepsis, due to unspecified organism ([facility]) (Primary Dx); 09/07/2015 Encounter General Surgery Neida Fisher MD 111 [facility], [facility] 5 [place] [phone] Intra-abdominal infection; Unit Elevated troponin [address] [place], [place] [id number] Social History Tobacco Use Types Packs/Day Years [...] per chart review who was transferred to [facility] from in from an OSH on [...] Atrial septum: Echo contrast study showed no vtlet-fr-zaih atrial level ? shunt, at baseline or [...] to self care Hui Calle RN CM [id number] Mary Ren RN - 09/07/2015 1350 EDT [...] attestation - Jessica Darby MD - 09/07/2015 6150 EDT Attending attestation statement: I saw and examined the patient and agree with the findings and plans as documented. Making appropriate recovery from perforated appendicitis and sepsis. Tolerating PO. Continue antibiotic therapy (total 7 days IV + PO). Likely discharge to home today. Lo??c MD [facility] Pager #[phone] Dalia Delacruz MD - 09/06/2015 2842 EDT Acute Care Surgery Note Admit Date: [...] attestation - Jessica Darby MD - 09/06/2015 1540 EDT Attending attestation statement: I saw and examined the patient and agree with the findings and plans as documented. Making excellent clinical improvement. Afebrile, WBC downtrending. Abdominal exam is benign. Continue Augmentin to complete 7 days total antibiotic therapy. If continues to do well and remains afebrile, will likely be appropriate for discharge to home tomorrow. Lo??c MD [facility] Pager #[phone] Contreras Preston MD - 09/05/2015 2252 EDT Echo without evidence of VSD. RV [...] Lo??c MD [facility] Pager #[phone] Stacey Johnson RN - 09/05/2015 5972 EDT 0745: Assumed care of pt. Pt [...] POA &/or COLST IN PLACE: No CULTURAL, CONGREGATION and/or LANGUAGE factors affecting health care/discharge planning: [...] untiltomorrow ( off vasopressors for 24hrs), Kofi Thornton MD - 09/04/2015 0648 EDT ICU [...] - 09/03/2015 1345 EDT 1345 md Rony Moragn at bedside to place elizabeth 1355 AP [...] have profound septic shock and transferred to [facility]. 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 Shahzad Anglin RN/MA Documenting Procedure: Hellen [...] Line Operators: Number Of Operators: 2 First Obiee Report Developer's Title: Resident Mail Handler Sorter's Title: Resident Unless otherwise noted, there were no complications, no blood loss and no cultures obtained. Shahzad Robles MD 09/03/2015 17:04 Kofi Thornton MD - 09/03/2015 1623 EDT Arterial Line Placement Indication: monitoring of blood pressure in setting of septic shock Procedure: right arterial line placement Obiee Report Developer: Kofi Thornton MD, Shahzad Robles MD Description: [...] CV: No JVD, no HJD, RR, nondisplaced [place] Normal S1 S2, no murmurs, rubs or [...] results found for: PHISTAT, PCOISTAT, POISTAT, POCTCO2, S1DHMSZP, BEART, POCFIO2 LFT: Lab Results Component Value [...] lipid panel Joel Escalona MD 09/03/2015 22:20 Radiology Specialist Pager # [phone] Associated attestation - Bienvenido Payton MD - 09/04/2015 1043 EDT Attestation: I saw and evaluated the patient on 09/04/2015. I agree with the findings and plan of careas documented in the resident's/fellow's note. Bienvenido Paytno MD 09/04/2015 10:43 Kofi Thornton MD - 09/03/2015 1401 EDT ICU Admit Note Admit Date: 09/03/2015 CC: Intra-abdominal infection Subjective: HPI: 74 y.o. female with HLD, hypothyroid, ? Heart failure, who presented to OSH with fevers, fatigue, nausea, vomiting,and vague abdominal pain today and found to have profound septic shock and transferred to [facility]. Pt states that 2 weeks ago had [...] findings concerning for rupture appendix. Transferred to [facility] for further management Past Medical History [...] that she went on a trip to [place] August 27 and . Patient reports cold [...] added TROPONIN 1 Final Number for problems 01926 (ED) Final ED/URGENT CARE ADD-ON Tests to be added TSH Final Number for problems 85471 (ED) Final ED/URGENT CARE ADD-ON Tests to be added LIPASE Final Number for problems 73083 (ED) Final LACTIC ACID TROPONIN I LIPASE [...] encounter Miscellaneous Notes Plan of Care - Romeila Soriano RN - 09/07/2015 0156 EDT Problem: [...] Met This Shift Data: Patient transferred to [place] [address]. Action: Oriented patient to floor. Encouraged meal [...] administered. R: Patient diuresed 2 liters on associate scientist. VSS,. Will CTM. Plan of Care - [...] to Ordered: GENERAL SURGERY unspecified organism 08/2015 ([facility]) Intra-abdominal infection AMB CONS/FOLLOW UP Outpatient Referral Routine Elevated troponin Ordered: CARDIOLOGY Sepsis, due to 09/25/2015 unspecified organism ([facility]) documented as of this encounter Procedures [...] that is no t available. Scan 2 Bread Wrapper PROCEDURE/MINOR SURGICAL ORD ERABLES ECG REPORT - SCANNED (09/10/2015 13:48 EDT) Specimen (Source) Anatomical Collection Method Collection Time Re ceived Time Location / / Volume Laterality 09/10/2015 13:48 EDT Narrative This result has an attachment that is no t available. Scan 2 Bread Wrapper PROCEDURE/MINOR SURGICAL ORD ERABLES ECG REPORT - SCANNED (09/10/2015 13:48 EDT) Specimen (Source) Anatomical Collection Method Collection Time Re ceived Time Location / / Volume Laterality 09/10/2015 13:48 EDT Narrative This result has an attachment that is no t available. Scan 2 Bread Wrapper PROCEDURE/MINOR SURGICAL ORD ERABLES ECG REPORT - SCANNED (2015 10:01 EDT) Specimen (Source) Anatomical Collection Method Collection Time Re ceived Time Location / / Volume Laterality 2015 10:01 EDT Narrative This result has an attachment that is no t available. Scan 2 Bread Wrapper PROCEDURE/MINOR SURGICAL ORD ERABLES (ABNORMAL) HEMAGRAM AND DIFFERENTIAL (09/07/2015 6:31 EDT) [facility] gist Method Time Signature WBC 9.90 4.0 - 09/07/2015 [facility] 12.4 7:03 EDT CENTER K/cmm LABORATORY SERVICES RBC 3.81 (L) 3.86 - 09/07/2015 [facility] 5.04 7:03 EDT CENTER M/cmm LABORATORY SERVICES Hemoglobin 11.2 (L) 11.6 - 09/07/2015 [facility] 15.2 7:03 EDT CENTER gm/dl LABORATORY SERVICES HCT 34.3 (L) 34.9 - 09/07/2015 [facility] 44.4 % 7:03 EDT CENTER LABORATORY SERVICES MCV 90 81 - 98 09/07/2015 [facility] fl 7:03 EDT CENTER LABORATORY SERVICES MCH 29.4 26.7 - 09/07/2015 [facility] 33.3 pg 7:03 EDT CENTER LABORATORY SERVICES MCHC 32.7 32.1 - 09/07/2015 [facility] 35.9 7:03 EDT CENTER gm/dl LABORATORY SERVICES RDW-CV 14.7 (H) 11.7 - 09/07/2015 [facility] 14.6 % 7:03 EDT CENTER LABORATORY SERVICES RDW-SD 48.4 37.6 - 09/07/2015 [facility] 50.3 fl 7:03 EDT CENTER LABORATORY SERVICES PLT 130 (L) 141 - 377 09/07/2015 [facility] K/cmm 7:03 EDT CENTER LABORATORY SERVICES MPV 11.4 9.5 - 09/07/2015 [facility] 12.7 fl 7:03 EDT CENTER LABORATORY SERVICES Neutrophils 64.0 % 09/07/2015 [facility] 8:30 EDT CENTER LABORATORY SERVICES Bands 1.0 % 09/07/2015 [facility] 8:30 EDT CENTER LABORATORY SERVICES Lymphocytes 20.0 % 09/07/2015 [facility] 8:30 EDT CENTER LABORATORY SERVICES Monocytes 9.0 % 09/07/2015 [facility] 8:30 EDT CENTER LABORATORY SERVICES Eosinophils 2.0 % 09/07/2015 [facility] 8:30 EDT CENTER LABORATORY SERVICES Basophils 1.0 % 09/07/2015 [facility] 8:30 EDT CENTER LABORATORY SERVICES Metamyelocytes 2.0 % 09/07/2015 [facility] 8:30 EDT CENTER LABORATORY SERVICES Myelocytes 1.0 % 09/07/2015 [facility] 8:30 EDT CENTER LABORATORY SERVICES ABS Neutrophils 6.33 2.20 - 09/07/2015 [facility] 8.85 8:30 EDT CENTER K/cm LABORATORY SERVICES ABS Bands 0.10 K/cmm 09/07/2015 [facility] 8:30 EDT CENTER LABORATORY SERVICES ABS Lymphs 1.98 1.09 - 09/07/2015 [facility] 3.30 8:30 EDT CENTER K/[facility] LABORATORY SERVICES ABS Monocytes 0.89 (H) 0.1 - 0.8 09/07/2015 [facility] K/[facility] 8:30 EDT CENTER LABORATORY SERVICES ABS Eosinophils 0.20 0.03 - 09/07/2015 [facility] 0.61 8:30 EDT CENTER /[facility] LABORATORY SERVICES ABS Basophils 0.10 0.01 - 09/07/2015 [facility] 0.11 8:30 EDT CENTER K/[facility] LABORATORY SERVICES ABS Metamyelocytes 0.20 K/cmm 09/07/2015 [facility] 8:30 EDT [facility]ENTER LABORATORY SERVICES ABS Myelocytes 0.10 K/cmm 09/07/2015 [facility] 8:30 EDT CENTER LABORATORY SERVICES Type of Diff: Manual 09/07/2015 [facility] 8:30 EDT CENTER LABORATORY SERVICES Specimen Anatomical Collection Method Collection Time Receive d Time (Source) Location / / Volume Laterality Blood specimen BLOOD SPECIMEN / 09/07/2015 6:31 2015 6:54 (specimen) Unknown EDT EDT Dalia Delacruz MD PACKAGES & DNA PROBE ORDERAB LES Performing Organization Address City/State/ZIP Code Phon e Number [facility] [address] [place] [address] SERVICES TOTAL & DIRECT BILIRUBIN (09/06/2015 7:06 EDT) Analysis Performed At Patho logist Time Signature Conjugated 0.0 0.0 - 0.3 09/06/2015 [facility] Bilirubin mg/dl 7:59 EDT CENTER LABORATORY SERVICES Unconjugated 0.4 0.0 - 1.1 09/06/2015 [facility] Bilirubin mg/dl 7:59 T CENTER LABORATORY SERVICES Bilirubin, Total 1.1 <1.4 mg/dl 09/06/2015 [facility] 7:59 T CENTER LABORATORY SERVICES Specimen Anatomical Collection Method Collection Time Receive d Time (Source) Location / / Volume Laterality Blood specimen BLOOD SPECIMEN / 09/06/2015 7:06 2015 7:14 (specimen) Unknown EDT EDT Dalia Delacruz MD CHEMISTRY & BLOOD GAS ORDERA BLES Performing Organization Address City/State/ZIP Code Phon e Number [facility] [address] [place] [address] SERVICES (ABNORMAL) ALKALINE PHOSPHATASE (09/06/2015 7:06 EDT) Patholo gist Method Time Signature Total Alkaline 174 (H) 38 - 126 09/06/2015 [facility] Phosphatase U/L 7:59 T CENTER LABORATORY SERVICES Specimen Anatomical Collection Method Collection Time Receive d Time (Source) Location / / Volume Laterality Blood specimen BLOOD SPECIMEN / 09/06/2015 7:06 2015 7:14 (specimen) Unknown EDT EDT Dalia Delacruz MD CHEMISTRY & BLOOD GAS ORDERA BLES Performing Organization Address City/State/ZIP Code Phon e Number [facility] [address] [place] [phone] SERVICES PHOSPHORUS (09/06/2015 7:06 EDT) P athologist Signature Phosphorus 3.0 2.5 - 4.5 09/06/2015 [facility] mg/dl 7:59 T CENTER LABORATORY SERVICES Specimen Anatomical Collection Method Collection Time Receive d Time (Source) Location / / Volume Laterality Blood specimen BLOOD SPECIMEN / 09/06/2015 7:06 2015 7:14 (specimen) Unknown EDT EDT Dalia Delacruz MD CHEMISTRY & BLOOD GAS ORDERA BLES Performing Organization Address City/State/ZIP Code Phon e Number [facility] [address] [place] [address] SERVICES MAGNESIUM (09/06/2015 7:06 EDT) P athologist [...] Organization Address City/State/ZIP Code Phon e Number [facility] [address] [place] [address] SERVICES ALT (09/06/2015 7:06 EDT) P athologist Signature ALT 49 <53 U/L 09/06/2015 [facility] 7:59 EDT CENTER LABORATORY SERVICES Specimen Anatomical Collection Method Collection Time Receive d Time (Source) Location / / Volume Laterality Blood specimen BLOOD SPECIMEN / 09/06/2015 7:06 2015 7:14 (specimen) Unknown EDT EDT Dalia Delacruz MD CHEMISTRY & BLOOD GAS ORDERA BLES Performing Organization Address City/State/ZIP Code Phon e Number [facility] [address] [place] [phone] SERVICES AST (09/06/2015 7:06 EDT) P athologist Signature AST 44 15 - 46 U/L 09/06/2015 [facility] 7:59 EDT CENTER LABORATORY SERVICES Specimen Anatomical Collection Method Collection Time Receive d Time (Source) Location / / Volume Laterality Blood specimen BLOOD SPECIMEN / 09/06/2015 7:06 2015 7:14 (specimen) Unknown EDT EDT Dalia Delacruz MD CHEMISTRY & BLOOD GAS ORDERA BLES Performing Organization Address City/State/ZIP Code Phon e Number [facility] [address] [place] [phone] SERVICES BUN (09/06/2015 7:06 EDT) P athologist [...] Organization Address City/State/ZIP Code Phon e Number [facility] [address] [place] [phone] SERVICES CREATININE (09/06/2015 7:06 EDT) athologist Signature Creatinine 0.63 0.52 - 09/06/2015 [facility] 1.04 mg/dl 7:59 EDT CENTER LABORATORY SERVICES GFR, Calculated 90 >60 09/06/2015 [facility] ml/min/1.7 7:59 EDT CENTER 3m2 LABORATORY [...] BLOOD GAS ORDERA BLES Performing Organization Address City/[facility]/ZIP Code Phon e Number [facility] [address] [place] [phone] SERVICES CALCIUM, IONIZED (09/06/2015 7:06 EDT) athologist Signature Calcium, 1.18 1.12 - 09/06/2015 [facility] Ionized 1.32 7:28 EDT CENTER mmol/L LABORATORY SERVICES Specimen Anatomical Collection Method Collection Time Receive d Time (Source) Location / / Volume Laterality Blood specimen BLOOD SPECIMEN / 09/06/2015 7:06 2015 7:14 (specimen) Unknown EDT EDT Dalia Delacruz MD CHEMISTRY & BLOOD GAS ORDERA BLES Performing Organization Address City/[facility]/ZIP Code Phon e Number [facility] [address] [place] [address] SERVICES ELECTROLYTES (09/06/2015 7:06 EDT) athologist Signature Sodium 140 136 - 145 09/06/2015 [facility] mEq/L 7:59 EDT CENTER LABORATORY SERVICES Potassium 4.0 3.5 - 5.0 09/06/2015 [facility] mEq/L 7:59 EDT CENTER LABORATORY SERVICES Chloride 103 96 - 110 09/06/2015 [facility] mEq/L 7:59 EDT CENTER LABORATORY SERVICES CO2 26 24 - 32 09/06/2015 [facility] mEq/L 7:59 EDT CENTER LABORATORY SERVICES Specimen Anatomical Collection Method Collection Time Receive d Time (Source) Location / / Volume Laterality Blood specimen BLOOD SPECIMEN / 09/06/2015 7:06 2015 7:14 (specimen) Unknown EDT EDT Dalia Delacruz MD CHEMISTRY & BLOOD GAS ORDERA BLES Performing Organization Address City/State/ZIP Code Phon e Number [facility] [address] [place] [address] SERVICES (ABNORMAL) HEMAGRAM AND DIFFERENTIAL (09/06/2015 7:06 EDT) [facility] Method Time Signature WBC 12.99 (H) 4.0 - 09/06/2015 [facility] 12.4 7:30 EDT CENTER K/cmm LABORATORY SERVICES RBC 3.74 (L) 3.86 - 09/06/2015 [facility] 5.04 7:30 EDT CENTER M/[facility] LABORATORY SERVICES Hemoglobin 11.0 (L) 11.6 - 09/06/2015 [facility] 15.2 7:30 EDT CENTER gm/dl LABORATORY SERVICES HCT 33.8 (L) 34.9 - 09/06/2015 [facility] 44.4 % 7:30 EDT CENTER LABORATORY SERVICES MCV 90 81 - 98 09/06/2015 [facility] fl 7:30 EDT CENTER LABORATORY SERVICES MCH 29.4 26.7 - 09/06/2015 [facility] 33.3 pg 7:30 EDT CENTER LABORATORY SERVICES MCHC 32.5 32.1 - 09/06/2015 [facility] 35.9 7:30 EDT CENTER gm/dl LABORATORY SERVICES RDW-CV 14.8 (H) 11.7 - 09/06/2015 [facility] 14.6 % 7:30 EDT CENTER LABORATORY SERVICES RDW-SD 49.1 37.6 - 09/06/2015 [facility] 50.3 fl 7:30 EDT CENTER LABORATORY SERVICES PLT 110 (L) 141 - 377 09/06/2015 [facility] K/cmm 7:30 EDT CENTER LABORATORY SERVICES MPV 10.8 9.5 - 09/06/2015 [facility] 12.7 fl 7:30 EDT CENTER LABORATORY SERVICES Neutrophils 80.0 % 09/06/2015 [facility] 9:46 EDT CENTER LABORATORY SERVICES Bands 1.0 % 09/06/2015 [facility] 9:46 EDT CENTER LABORATORY SERVICES Lymphocytes 14.0 % 09/06/2015 [facility] 9:46 EDT CENTER LABORATORY SERVICES Monocytes 1.0 % 09/06/2015 [facility] 9:46 EDT CENTER LABORATORY SERVICES Eosinophils 4.0 % 09/06/2015 [facility] 9:46 EDT CENTER LABORATORY SERVICES ABS Neutrophils 10.39 (H) 2.20 - 09/06/2015 [facility] 8.85 9:46 EDT CENTER K/cmm LABORATORY SERVICES ABS Bands 0.13 K/cmm 09/06/2015 [facility] 9:46 EDT CENTER LABORATORY SERVICES ABS Lymphs 1.82 1.09 - 09/06/2015 [facility] 3.30 9:46 EDT CENTER K/cmm LABORATORY SERVICES ABS Monocytes 0.13 0.1 - 0.8 09/06/2015 [facility] K/cmm 9:46 EDT CENTER LABORATORY SERVICES ABS Eosinophils 0.52 0.03 - 09/06/2015 [facility] 0.61 9:46 EDT CENTER K/cmm LABORATORY SERVICES Toxic Granulation Present 09/06/2015 [facility] 9:46 EDT CENTER LABORATORY SERVICES Vacuolization Present 09/06/2015 [facility] 9:46 EDT CENTER LABORATORY SERVICES Type of Diff: Manual 09/06/2015 [facility] 9:46 EDT CENTER LABORATORY SERVICES Specimen Anatomical Collection Method Collection Time Receive d Time (Source) Location / / Volume Laterality Blood specimen BLOOD SPECIMEN / 09/06/2015 7:06 2015 7:14 (specimen) Unknown EDT EDT Dalia Delacruz MD PACKAGES & DNA PROBE ORDERAB LES Performing Organization Address City/State/ZIP Code Phon e Number [facility] [address] [place] [address] SERVICES ECHOCARDIOGRAM LIMITED (09/05/2015 12:02 EDT) Anatomical Region Laterality Modality Other Specimen (Source) Anatomical Collection Method Collection Time Re ceived Time Location / / Volume Laterality 09/05/2015 12:02 EDT Narrative 09/05/2015 12:59 EDT *Interpreting Group:* *[facility]* [address] [place] [address] ?? Date of study: 09/05/2015 ?? Transthoracic [...] septum: Echo contrast study sh owed no jearw-nj-dkcz atrial level ?? shunt, at baseline or with provocati on. 4. Pulmonary arteries: Pulmonary systoli c pressure was mildly increased, in the ?? range of 35mm Hg to 40mm Hg. *PATIENT PRESENTATION* Height: ? () S/D Pressure: Weight: ? () BSA: Test start time: ??11:34 AM. Test stop time: ??11:42 AM. REFERRING ?Fabiano Aranda CLAIM AGENT ??[facility] ADMITTING ?Neida Fisher ATTENDING ?Neida Fisher ORDERING ? [place] PERFORMING ?? [facility], *PROCEDURE DATA* Procedure information: ??This study was interpreted by [facility]. Pertinent imag es and digital data are archived for permanent storage and are available for subsequent review. ??Study status: Routine. Transthoracic echocardiography. ??M-mode, limited 2D, limited spectral Doppler, and color Doppler. A Transthora cic Echocardiogram was performed. Scanning was performed from the paraster nal, apical, and subcostal acoustic windows. Images were obtained using a [employer] IE33 5 cardiac ultrasound machine. Image quality was adequate. 20ml of Intr avenous contrast (agitated saline) was administered by MARTIN Allen RDCS to enhance delineation of left ventricular endocard ial borders. Prior to administration at least two (2) contiguous segments of the left ventricular border were not visualized. ??Study completion: ??The pa arley tolerated the procedure well. There were no complications. *INDICATIONS AND HISTORY* Indications: ?? Septicemia, Unspecified A41.9. *CARDIAC ANATOMY* Left ventricle: ??The cavity size was no rmal. Systolic function was normal. The estimated ejection fraction was 60-65%. Atrial septum: ?? Echo contrast study sh owed no enzmp-nh-upby atrial level shunt, at baseline or with [...] different from the original. *Interpreting Group:* *[facility]* [address] [place] [address] Date of study: 09/05/2015 Transthoracic Echocardiography M-mode, limited 2D, limited spectral Dop pler, and color Doppler *STUDY CONCLUSIONS* Summary: 1. Left ventricle: The cavity size was n ormal. Systolic function was normal. The estimated ejection fraction was 60-65%. 2. Right ventricle: The cavity size was mildly to moderately dilated. Systolic function was normal. 3. Atrial septum: Echo contrast study sh owed no axybd-pb-jzgp atrial level shunt, at baseline or with provocation. 4. Pulmonary arteries: Pulmonary systoli c pressure was mildly increased, in the range of 35mm Hg to 40mm Hg. *PATIENT PRESENTATION* Height: () S/D Pressure: Weight: () BSA: Test start time: 11:34 AM. Test stop time: 11:42 AM. REFERRING Fabiano Aranda CLAIM AGENT [facility]rett [facility] RDCS ADMITTING Neida Fisher ATTENDING Neida Fisher ORDERING [place] PERFORMING [facility], *PROCEDURE DATA* Procedure information: This study was in terpreted by [facility]. Pertinent imag es and digital data are archived for permanent storage and are available for subsequent review. Study status: Routine. Transthoracic echocardiography. M-mode, limited 2D, limited spectral Doppler, and color Doppler. A Transthora cic Echocardiogram was performed. Scanning was performed from the paraster nal, apical, and subcostal acoustic windows. Images were obtained using a [employer] IE33 5 cardiac ultrasound machine. Image quality [...] septum: Echo contrast study showe d no ubyjl-gy-nwzr atrial level shunt, at baseline or with [...] P athologist Signature Cholesterol 138 mg/dl 09/05/2015 [facility] 4:08 [facility] LABORATORY SERVICES Comment: Desirable:<200 Borderline High:200-239 High:>nn=488 Triglycerides 180 mg/dl 09/05/2015 4:08 EDT [facility] LABORATORY SERVICES Comment: Normal:<150 Borderline High:150-199 High:200-499 Very High:>rs=473 HDL 35 mg/dl 09/05/2015 4:08 T [facility] LABORATORY SERVICES Comment: Low:<40 Normal:40-60 Desirable: >60 LDL, Calculated 67 mg/dl 09/05/2015 4:08 [facility] LABORATORY SERVICES Comment: Optimal:<100 Near Optimal:100-129 Borderline High:130-159 High:160-189 Very High:>qg=831 Chol/HDL Ratio 3.9 09/05/2015 4:08 EDT [facility] LABORATORY SERVICES Fasting? Unknown 09/05/2015 3:34 EDT [facility] LABORATORY SERVICES Non HDL Cholesterol 103 mg/dl 09/05/2015 4:08 EDT [facility] SERVICES Comment: Desirable:<130 Borderline:130-159 High: 160-189 Very High: >oy=481 Specimen Anatomical Collection Method Collection Time Receive d Time (Source) Location / / Volume Laterality Blood specimen BLOOD SPECIMEN / 09/05/2015 3:06 2015 3:34 (specimen) Unknown EDT EDT Kofi Thornton MD CHEMISTRY & BLOOD GAS ORDERA BLES Performing Organization Address City/State/ZIP Code Phon e Number [facility] [address] [place] [address] SERVICES TOTAL & DIRECT BILIRUBIN (09/05/2015 3:06 EDT) Analysis Performed At Patho logist Time Signature Conjugated 0.0 0.0 - 0.3 09/05/2015 [facility] Bilirubin mg/dl 4:08 T [facility] Unconjugated 0.4 0.0 - 1.1 09/05/2015 [facility] Bilirubin mg/dl 4:08 [facility] Bilirubin, Total 1.0 <1.4 mg/dl 09/05/2015 [facility] 4:08 [facility] Specimen Anatomical Collection Method Collection Time Receive d Time (Source) Location / / Volume Laterality Blood specimen BLOOD SPECIMEN / 09/05/2015 3:06 2015 3:34 (specimen) Unknown EDT EDT Dalia Delacruz MD CHEMISTRY & BLOOD GAS ORDERA BLES Performing Organization Address City/State/ZIP Code Phon e Number [facility] [address] [phone] SERVICES ALKALINE PHOSPHATASE (09/05/2015 3:06 EDT) P athologist Signature Total Alkaline 94 38 - 126 09/05/2015 [facility] Phosphatase U/L 4:08 EDT [facility]ENTER [facility] SERVICES Specimen Anatomical Collection Method Collection Time Receive d Time (Source) Location / / Volume Laterality Blood specimen BLOOD SPECIMEN / 09/05/2015 3:06 2015 3:34 (specimen) Unknown EDT EDT Dalia Delacruz MD CHEMISTRY & BLOOD GAS ORDERA BLES Performing Organization Address City/[facility]/ZIP Code Phon e Number [facility] [address] [place] [address] SERVICES (ABNORMAL) PHOSPHORUS (09/05/2015 3:06 EDT) athologist Signature Phosphorus 2.1 (L) 2.5 - 4.5 09/05/2015 [facility] mg/dl 4:08 EDT [facility]ENTER [facility] SERVICES Specimen Anatomical Collection Method Collection Time Receive d Time (Source) Location / / Volume Laterality Blood specimen BLOOD SPECIMEN / 09/05/2015 3:06 2015 3:34 (specimen) Unknown EDT EDT Dalia Delacruz MD CHEMISTRY & BLOOD GAS ORDERA BLES Performing Organization Address [facility]/ZIP Code Phon e Number [facility] [address] [place] [address] SERVICES MAGNESIUM (09/05/2015 3:06 EDT) athologist Signature Magnesium 2.0 1.7 - 2.8 09/05/2015 [facility] mg/dl 4:08 EDT [facility]ENTER [facility] Specimen Anatomical Collection Method Collection Time Receive d Time (Source) Location / / Volume Laterality Blood specimen BLOOD SPECIMEN / 09/05/2015 3:06 2015 3:34 (specimen) Unknown EDT EDT Dalia Delacruz MD CHEMISTRY & BLOOD GAS ORDERA BLES Performing Organization Address City/[facility]/ZIP Code Phon e Number [facility] [address] [place] [address] SERVICES (ABNORMAL) ALT (09/05/2015 3:06 EDT) athologist [...] Organization Address City/State/ZIP Code Phon e Number [facility] [address] [place] [address] SERVICES (ABNORMAL) AST (09/05/2015 3:06 EDT) athologist Signature AST 52 (H) 15 - 46 U/L 09/05/2015 [facility] 4:08 EDT [facility]ENTER [facility] Specimen Anatomical Collection Method Collection Time Receive d Time (Source) Location / / Volume Laterality Blood specimen BLOOD SPECIMEN / 09/05/2015 3:06 2015 3:34 (specimen) Unknown EDT EDT Dalia Delacruz MD CHEMISTRY & BLOOD GAS ORDERA BLES Performing Organization Address City/State/ZIP Code Phon e Number [facility] [address] [place] [address] SERVICES BUN (09/05/2015 3:06 EDT) athologist Signature BUN 15 10 - 26 09/05/2015 [facility] mg/dl 4:08 EDT [facility]ENTER [facility] SERVICES Specimen Anatomical Collection Method Collection Time Receive d Time (Source) Location / / Volume Laterality Blood specimen BLOOD SPECIMEN / 09/05/2015 3:06 2015 3:34 (specimen) Unknown EDT EDT Dalia Delacruz MD CHEMISTRY & BLOOD GAS ORDERA BLES Performing Organization Address City/[facility]/ZIP Code Phon e Number [facility] [address] [phone] SERVICES CREATININE (09/05/2015 3:06 EDT) athologist Signature Creatinine 0.79 0.52 - 09/05/2015 [facility] 1.04 mg/dl 4:08 EDT [facility]ENTER LABORATORY SERVICES GFR, Calculated 75 >60 09/05/2015 [facility] ml/min/1.7 4:08 EDT CENTER 3m2 LABORATORY [...] Organization Address City/State/ZIP Code Phon e Number [facility] [address] [place] [address] SERVICES (ABNORMAL) CALCIUM, IONIZED (09/05/2015 3:06 EDT) Analysis Performed At Patho logist Time Signature Calcium, 1.08 (L) 1.12 - 09/05/2015 [facility] Ionized 1.32 3:46 EDT CENTER mmol/L LABORATORY SERVICES Specimen Anatomical Collection Method Collection Time Receive d Time (Source) Location / / Volume Laterality Blood specimen BLOOD SPECIMEN / 09/05/2015 3:06 2015 3:34 (specimen) Unknown EDT EDT Dalia Delacruz MD CHEMISTRY & BLOOD GAS ORDERA BLES Performing Organization Address City/State/ZIP Code Phon e Number [facility] [address] [place] [address] SERVICES (ABNORMAL) ELECTROLYTES (09/05/2015 3:06 EDT) P athologist Signature Sodium 142 136 - 145 09/05/2015 [facility] mEq/L 4:08 EDT [facility]ENTER [facility] SERVICES Potassium 3.3 (L) 3.5 - 5.0 09/05/2015 [facility] mEq/L 4:08 EDT [facility]ENTER LABORATORY SERVICES Chloride 105 96 - 110 09/05/2015 [facility] mEq/L 4:08 EDT CENTER LABORATORY SERVICES [...] Organization Address City/State/ZIP Code Phon e Number [facility] [address] [place] [address] SERVICES (ABNORMAL) HEMAGRAM AND DIFFERENTIAL (09/05/2015 3:06 EDT) Patholo gist Method Time Signature WBC 17.81 (H) 4.0 - 09/05/2015 [facility] 12.4 4:26 EDT CENTER K/cmm LABORATORY SERVICES RBC 3.42 (L) 3.86 - 09/05/2015 [facility] 5.04 4:04 EDT CENTER M/cmm LABORATORY SERVICES Hemoglobin 10.2 (L) 11.6 - 09/05/2015 [facility] 15.2 4:04 EDT CENTER gm/dl LABORATORY SERVICES HCT 31.1 (L) 34.9 - 09/05/2015 [facility] 44.4 % 4:04 EDT CENTER LABORATORY SERVICES MCV 91 81 - 98 09/05/2015 [facility] fl 4:04 EDT [facility]ENTER LAB[facility]ORY SERVICES MCH 29.8 26.7 - 09/05/2015 [facility] 33.3 pg 4:04 EDT [facility]ENTER LABORATORY SERVICES MCHC 32.8 32.1 - 09/05/2015 [facility] 35.9 4:04 EDT CENTER gm/dl LABORATORY SERVICES RDW-CV 15.0 (H) 11.7 - 09/05/2015 [facility] 14.6 % 4:04 EDT CENTER LABORATORY SERVICES RDW-SD 50.4 (H) 37.6 - 09/05/2015 [facility] 50.3 fl 4:04 EDT CENTER LABORATORY SERVICES PLT 96 (L) 141 - 377 09/05/2015 [facility] K/[facility] 4:26 EDT CENTER LABORATORY SERVICES MPV 10.8 9.5 - 09/05/2015 [facility] 12.7 fl 4:26 EDT [facility]ENTER LAB[facility]ORY SERVICES Neutrophils 75.0 % 09/05/2015 [facility] 4:26 EDT [facility]ENTER LAB[facility] SERVICES Bands 13.0 % 09/05/2015 [facility] 4:26 EDT [facility]ENTER [facility] SERVICES Lymphocytes 9.0 % 09/05/2015 [facility] 4:26 EDT [facility]ENTER LAB[facility] SERVICES Monocytes 2.0 % 09/05/2015 [facility] 4:26 EDT [facility]ENTER LAB[facility]ORY SERVICES Eosinophils 1.0 % 09/05/2015 [facility] 4:26 EDT [facility]ENTER LABORATORY SERVICES ABS Neutrophils 13.35 (H) 2.20 - 09/05/2015 [facility] 8.85 4:26 EDT CENTER K/cmm LABORATORY SERVICES ABS Bands 2.32 K/cmm 09/05/2015 [facility] 4:26 EDT [facility]ENTER LABORATORY SERVICES ABS Lymphs 1.60 1.09 - 09/05/2015 [facility] 3.30 4:26 EDT CENTER K/cmm LABORATORY SERVICES ABS Monocytes 0.36 0.1 - 0.8 09/05/2015 [facility] K/cmm 4:26 EDT CENTER LABORATORY SERVICES ABS Eosinophils 0.18 0.03 - 09/05/2015 [facility] 0.61 4:26 EDT CENTER K/cmm LABORATORY SERVICES Toxic Present 09/05/2015 [facility] Granulation 4:26 ED [facility]ENTER LAB[facility]ORY SERVICES Type of Diff: Manual 09/05/2015 [facility] 4:26 EDT [facility] Specimen Anatomical Collection Method Collection Time Receive d Time (Source) Location / / Volume Laterality Blood specimen BLOOD SPECIMEN / 09/05/2015 3:06 2015 3:34 (specimen) Unknown EDT EDT Dalia Delacruz MD PACKAGES & DNA PROBE ORDERAB LES Performing Organization Address City/State/ZIP Code Phon e Number [facility] [address] [place] [address] SERVICES ECHOCARDIOGRAM (09/04/2015 10:49 EDT) Anatomical Region Laterality Modality Other Specimen (Source) Anatomical Collection Method Collection Time Re ceived Time Location / / Volume Laterality 09/04/2015 10:49 EDT Narrative 09/04/2015 11:37 EDT *Interpreting Group:* *[facility]* [address] [id number] ?? Date of study: 09/04/2015 ?? Transthoracic [...] Aranda ADMITTING ?Neida Fisher ATTENDING ?Neida Fisher CLAIM AGENT ??Rula Cochran PERFORMING ?? [facility], ORDERING ? Rony Leach *PROCEDURE DATA* Procedure information: ??This study was interpreted by [facility]. Pertinent imag es and digital data are archived for permanent storage and are available for subsequent review. ??Study status: Routine. Transthoracic echocardiography. ??M-mode, complete 2D, complete spectral Doppler, and color Doppler. A Transthora cic Echocardiogram was performed. Scanning was performed from the paraster nal, apical, subcostal, and suprasternal notch acoustic windows. Images were obta ined using an [employer] 9 cardiac ultrasound machine. Image quality was [...] different from the original. *Interpreting Group:* *[facility]* [address] [place] [address] Date of study: 09/04/2015 Transthoracic Echocardiography M-mode, [...] Aranda ADMITTING Neida Fisher ATTENDING Neida Fisher CLAIM AGENT Rula Cochran PERFORMING [facility], Ip ORDERING Rony Leach *PROCEDURE DATA* Procedure information: This study was in terpreted by [facility]. Pertinent imag [...] Signature Troponin I 0.289 (H) <0.034 09/04/2015 [facility] (ng/mL) ng/ml 4:32 EDT [facility]ENTER LAB[facility]ATORY SERVICES Specimen Anatomical Collection Method Collection Time Receive d Time (Source) Location / / Volume Laterality Blood specimen BLOOD SPECIMEN / 09/04/2015 3:18 2015 3:34 (specimen) Unknown EDT EDT Kofi Thornton MD CHEMISTRY & BLOOD GAS ORDERA BLES Performing Organization Address City/State/ZIP Code Phon e Number [facility] [address] [place] [address] SERVICES TOTAL & DIRECT BILIRUBIN (09/04/2015 3:18 EDT) Analysis Performed At Patho logist Time Signature Conjugated 0.0 0.0 - 0.3 09/04/2015 [facility] Bilirubin mg/dl 4:11 T CENTER LAB[facility]ORY SERVICES Unconjugated 0.3 0.0 - 1.1 09/04/2015 [facility] Bilirubin mg/dl 4:11 T [facility]ENTER [facility] SERVICES Bilirubin, Total 1.1 <1.4 mg/dl 09/04/2015 [facility] 4:11 T [facility] Specimen Anatomical Collection Method Collection Time Receive d Time (Source) Location / / Volume Laterality Blood specimen BLOOD SPECIMEN / 09/04/2015 3:18 2015 3:34 (specimen) Unknown EDT EDT Dalia Delacruz MD CHEMISTRY & BLOOD GAS ORDERA BLES Performing Organization Address City/State/ZIP Code Phon e Number [facility] [address] [place] [address] SERVICES ALKALINE PHOSPHATASE (09/04/2015 3:18 EDT) P athologist Signature Total Alkaline 85 38 - 126 09/04/2015 [facility] Phosphatase U/L 4:11 T [facility]ENTER LAB[facility] SERVICES Specimen Anatomical Collection Method Collection Time Receive d Time (Source) Location / / Volume Laterality Blood specimen BLOOD SPECIMEN / 09/04/2015 3:18 2015 3:34 (specimen) Unknown EDT EDT Dalia Delacruz MD CHEMISTRY & BLOOD GAS ORDERA BLES Performing Organization Address City/[facility]/ZIP Code Phon e Number [facility] [address] [place] [address] SERVICES PHOSPHORUS (09/04/2015 3:18 EDT) P athologist Signature Phosphorus 2.5 2.5 - 4.5 09/04/2015 [facility] mg/dl 4:11 EDT [facility]ENTER LAB[facility] SERVICES Specimen Anatomical Collection Method Collection Time Receive d Time (Source) Location / / Volume Laterality Blood specimen BLOOD SPECIMEN / 09/04/2015 3:18 2015 3:34 (specimen) Unknown EDT EDT Dalia Delacruz MD CHEMISTRY & BLOOD GAS ORDERA BLES Performing Organization Address [facility]/ZIP Code Phon e Number [facility] [address] [place] [address] SERVICES MAGNESIUM (09/04/2015 3:18 EDT) athologist Signature Magnesium 1.7 1.7 - 2.8 09/04/2015 [facility] mg/dl 4:11 EDT [facility]ENTER LAB[facility]ATORY SERVICES Specimen Anatomical Collection Method Collection Time Receive d Time (Source) Location / / Volume Laterality Blood specimen BLOOD SPECIMEN / 09/04/2015 3:18 2015 3:34 (specimen) Unknown EDT EDT Dalia Delacruz MD CHEMISTRY & BLOOD GAS ORDERA BLES Performing Organization Address City/[facility]/ZIP Code Phon e Number [facility] [address] [place] [address] SERVICES (ABNORMAL) ALT (09/04/2015 3:18 EDT) athologist [...] Organization Address City/State/ZIP Code Phon e Number [facility] [address] [place] [address] SERVICES (ABNORMAL) AST (09/04/2015 3:18 EDT) athologist Signature AST 73 (H) 15 - 46 U/L 09/04/2015 [facility] 4:11 EDT [facility]ENTER [facility] SERVICES Specimen Anatomical Collection Method Collection Time Receive d Time (Source) Location / / Volume Laterality Blood specimen BLOOD SPECIMEN / 09/04/2015 3:18 2015 3:34 (specimen) Unknown EDT EDT Dalia Delacruz MD CHEMISTRY & BLOOD GAS ORDERA BLES Performing Organization Address City/State/ZIP Code Phon e Number [facility] [address] [place] [address] SERVICES BUN (09/04/2015 3:18 EDT) athologist Signature BUN 16 10 - 26 09/04/2015 [facility] mg/dl 4:11 EDT [facility]ENTER LAB[facility]ATORY SERVICES Specimen Anatomical Collection Method Collection Time Receive d Time (Source) Location / / Volume Laterality Blood specimen BLOOD SPECIMEN / 09/04/2015 3:18 2015 3:34 (specimen) Unknown EDT EDT Dalia Delacruz MD CHEMISTRY & BLOOD GAS ORDERA BLES Performing Organization Address City/[facility]/ZIP Code Phon e Number [facility] [address] [phone] SERVICES CREATININE (09/04/2015 3:18 EDT) athologist Signature Creatinine 0.82 0.52 - 09/04/2015 [facility] 1.04 mg/dl 4:11 EDT CENTER LABORATORY SERVICES GFR, Calculated 72 >60 09/04/2015 [facility] ml/min/1.7 4:11 EDT CENTER 3m2 LABORATORY [...] Organization Address City/State/ZIP Code Phon e Number [facility] [address] [place] [address] SERVICES (ABNORMAL) CALCIUM, IONIZED (09/04/2015 3:18 EDT) Analysis Performed At Patho logist Time Signature Calcium, 0.96 (L) 1.12 - 09/04/2015 [facility] Ionized 1.32 3:47 EDT CENTER mmol/L LABORATORY SERVICES Specimen Anatomical Collection Method Collection Time Receive d Time (Source) Location / / Volume Laterality Blood specimen BLOOD SPECIMEN / 09/04/2015 3:18 2015 3:34 (specimen) Unknown EDT EDT Dalia Delacruz MD CHEMISTRY & BLOOD GAS ORDERA BLES Performing Organization Address City/State/ZIP Code Phon e Number [facility] [address] [place] [address] SERVICES (ABNORMAL) ELECTROLYTES (09/04/2015 3:18 EDT) P athologist Signature Sodium 142 136 - 145 09/04/2015 [facility] mEq/L 4:11 EDT CENTER LABORATORY SERVICES Potassium 3.8 3.5 - 5.0 09/04/2015 [facility] mEq/L 4:11 EDT CENTER LABORATORY SERVICES Chloride 111 (H) 96 - 110 09/04/2015 [facility] mEq/L 4:11 EDT CENTER LABORATORY SERVICES CO2 21 (L) 24 - 32 09/04/2015 [facility] mEq/L 4:11 EDT CENTER LABORATORY SERVICES Specimen Anatomical Collection Method Collection Time Receive d Time (Source) Location / / Volume Laterality Blood specimen BLOOD SPECIMEN / 09/04/2015 3:18 2015 3:34 (specimen) Unknown EDT EDT Dalia Delacruz MD CHEMISTRY & BLOOD GAS ORDERA BLES Performing Organization Address City/State/ZIP Code Phon e Number [facility] [address] [place] [address] SERVICES (ABNORMAL) HEMAGRAM AND DIFFERENTIAL (09/04/2015 3:18 EDT) Patholo gist Method Time Signature WBC 23.58 (H) 4.0 - 09/04/2015 [facility] 12.4 4:10 EDT CENTER K/cmm LABORATORY SERVICES RBC 3.47 (L) 3.86 - 09/04/2015 [facility] 5.04 3:52 EDT CENTER M/cm LABORATORY SERVICES Hemoglobin 10.4 (L) 11.6 - 09/04/2015 [facility] 15.2 3:52 EDT CENTER gm/dl LABORATORY SERVICES HCT 31.8 (L) 34.9 - 09/04/2015 [facility] 44.4 % 3:52 EDT CENTER LABORATORY SERVICES MCV 92 81 - 98 09/04/2015 [facility] fl 3:52 EDT CENTER LABORATORY SERVICES MCH 30.0 26.7 - 09/04/2015 [facility] 33.3 pg 3:52 EDT CENTER LABORATORY SERVICES MCHC 32.7 32.1 - 09/04/2015 [facility] 35.9 3:52 EDT CENTER gm/dl LABORATORY SERVICES RDW-CV 15.1 (H) 11.7 - 09/04/2015 [facility] 14.6 % 3:52 EDT CENTER LABORATORY SERVICES RDW-SD 50.3 37.6 - 09/04/2015 [facility] 50.3 fl 3:52 EDT CENTER LABORATORY SERVICES PLT 110 (L) 141 - 377 09/04/2015 [facility] 4:10 EDT CENTER LABORATORY SERVICES MPV 10.3 9.5 - 09/04/2015 [facility] 12.7 fl 4:10 EDT CENTER LABORATORY SERVICES Neutrophils 79.0 % 09/04/2015 [facility] 4:10 EDT CENTER LABORATORY SERVICES Bands 18.0 % 09/04/2015 [facility] 4:10 EDT CENTER LABORATORY SERVICES Monocytes 3.0 % 09/04/2015 [facility] 4:10 EDT CENTER LABORATORY SERVICES ABS Neutrophils 18.63 (H) 2.20 - 09/04/2015 [facility] 8.85 4:10 EDT CENTER /[facility] LABORATORY SERVICES ABS Bands 4.24 K/cmm 09/04/2015 [facility] 4:10 EDT CENTER LABORATORY SERVICES ABS Monocytes 0.71 0.1 - 0.8 09/04/2015 [facility] /[facility] 4:10 EDT CENTER LABORATORY SERVICES Toxic Present 09/04/2015 [facility] Granulation 4:10 EDT CENTER LABORATORY SERVICES Type of Diff: Manual 09/04/2015 [facility] 4:10 EDT CENTER LABORATORY SERVICES Specimen Anatomical Collection Method Collection Time Receive d Time (Source) Location / / Volume Laterality Blood specimen BLOOD SPECIMEN / 09/04/2015 3:18 2015 3:34 (specimen) Unknown EDT EDT Dalia Delacruz MD PACKAGES & DNA PROBE ORDERAB LES Performing Organization Address City/State/ZIP Code Phon e Number [facility] [address] [place] [address] SERVICES (ABNORMAL) TROPONIN I (09/04/2015 1:42 EDT) Patholo gist Method Time Signature Troponin I 0.330 (H) <0.034 09/04/2015 [facility] (ng/mL) ng/ml 2:23 EDT CENTER LABORATORY SERVICES Specimen Anatomical Collection Method Collection Time Receive d Time (Source) Location / / Volume Laterality Blood specimen BLOOD SPECIMEN / 09/04/2015 1:42 2015 1:52 (specimen) Unknown EDT EDT Kofi Thornton MD CHEMISTRY & BLOOD GAS ORDERA BLES Performing Organization Address City/[facility]/ZIP Code Phon e Number [facility] [address] [place] [address] SERVICES LACTIC ACID (09/04/2015 1:42 EDT) P athologist Signature Lactic Acid 1.3 <2.0 mmol/L 09/04/2015 [facility] 2:05 EDT CENTER LABORATORY SERVICES Specimen Anatomical Collection Method Collection Time Receive d Time (Source) Location / / Volume Laterality Blood specimen BLOOD SPECIMEN / 09/04/2015 1:42 2015 1:52 (specimen) Unknown EDT EDT Samantha Go MD CHEMISTRY & BLOOD GAS ORDERA BLES Performing Organization Address City/State/ZIP Code Phon e Number [facility] [address] [place] [address] SERVICES EKG 12-LEAD (09/03/2015 21:06 EDT) Specimen (Source) Anatomical Collection Method Collection Time Re ceived Time Location / / Volume Laterality 09/03/2015 21:06 EDT Narrative [facility] EKG - 09/04/2015 11:5 5 EDT ? [facility] ? Test Date: ?2015-09-03 Pat Name: ? JOY WRIGHTANGEL ?Department: ?? COTE 3 ? Room: ? M326 Gender: ? F ?Interactive Video Technician: ?? [id number] : ?1940 ? Requested By: ELISHA ALEMAN Order Number: [id number] ? Reading MD: ?? ANNELISE CAPELESS MD ? Measurements Intervals ?[place] ? Rate: ? 95 ? P: ?-7 [...] might be different from the original. [facility] Cent r Test Date: 2015-09-03 Pat Name: JOY CUNHA Department: [place] [address] Room: [facility] [place] Gender: F Interactive Video Technician: [id number] : 1940 Requested By: ELISHA ALEMAN Order Number: [id number] Reading MD: Merrill CASTILLO MD Measurements Intervals [place] Rate: 95 P: -7 [place]: 202 QRS: [...] Organization Address City/State/ZIP Code Phon e Number [facility] EKG (ABNORMAL) TROPONIN I (09/03/2015 19:30 EDT) Patholo gist Method Time Signature Troponin I 0.334 (H) <0.034 09/03/2015 [facility] (ng/mL) ng/ml 20:14 EDT CENTER LABORATORY SERVICES Specimen Anatomical Collection Method Collection Time Receive d Time (Source) Location / / Volume Laterality Blood specimen BLOOD SPECIMEN / 09/03/2015 19:30 09/02 (specimen) Unknown EDT 19:45 EDT Kofi Thornton MD CHEMISTRY & BLOOD GAS ORDERA BLES Performing Organization Address City/State/ZIP Code Phon e Number [facility] [address] [place] [address] SERVICES LACTIC ACID (09/03/2015 19:30 EDT) P athologist Signature Lactic Acid 1.4 <2.0 mmol/L 09/03/2015 [facility] 20:07 EDT CENTER LABORATORY SERVICES Specimen Anatomical Collection Method Collection Time Receive d Time (Source) Location / / Volume Laterality Blood specimen BLOOD SPECIMEN / 09/03/2015 19:30 09/02 (specimen) Unknown EDT 19:46 EDT Samantha Go MD CHEMISTRY & BLOOD GAS ORDERA BLES Performing Organization Address City/State/ZIP Code Phon e Number [facility] [address] [place] [address] SERVICES PORTABLE CHEST 1 VIEW (09/03/2015 17:02 [...] CT abdomen/pelvis performed 7 hours prior and [facility]. Technique: Grayscale and limited Doppler [...] No pericholecys tic fluid is identified. Per appeals writer's report, while there is no focal tenderness upon scanning in the gallbladder, no is made of pressure in the area of the transducer. The right kidney measures 12.8 cm in [facility] and is normal in echotexture. No right-sided [...] CT abdomen/pelvis performed 7 hours prior and [facility]. Technique: Grayscale and limited Doppler [...] No pericholecys tic fluid is identified. Per appeals writer's report, while there is no focal tenderness upon scanning in the gallbladder, no is made of pressure in the area of the transducer. The right kidney measures 12.8 cm in [facility] and is normal in echotexture. No right-sided [...] Component Value Ref Test Analysis Performed At [facility] Range Method Time Signature Specimen Nasal 09/03/2015 [facility] Description 15:50 EDT CENTER LABORATORY SERVICES Result No Staphylococcus 09/03/2015 [facility] aureus detected 19:51 EDT CENTER by PCR. LABORATORY SERVICES Specimen Anatomical Collection Method Collection Time Receive d Time (Source) Location / / Volume Laterality OTHER / Unknown 09/03/2015 13:48 09/03/19 16 EDT 15:49 EDT Neida Fisher MD MICROBIOLOGY - GENERAL ORDER [place] Performing Organization Address City/State/ZIP Code Phon e Number [facility] [address] [place] [address] SERVICES SECONDARY READ BODY CT (09/03/2015 13:23 [...] the abdomen and pelvis was performed at [facility]. Secondary interpretation is performed at the request [...] the abdomen and pelvis was performed at [facility]. Secondary interpretation is performed at the request [...] IMAGING ORDERABLES INPATIENT ADD-ON (09/03/2015 13:15 EDT) [facility] Method Time Signature Tests to be ALT,AST,TO 09/03/2015 [facility] added [place] 13:14 EDT CENTER BILI,LIP[place] LABORATORY E,[place] [id number] 09/03/2015 [facility] problems 13:18 EDT CENTER LABORATORY SERVICES 09/03/2015 [facility] number 13:18 EDT CENTER LABORATORY SERVICES Specimen Anatomical Collection Method Collection Time Receive d Time (Source) Location / / Volume Laterality OTHER / Unknown 09/03/2015 13:15 09/03/19 16 EDT 13:18 EDT Samantha Go MD HEMATOLOGY & PF4 ORDERABLES Performing Organization Address City/State/ZIP Code Phon e Number [facility] [address] [place] [address] SERVICES EKG 12-LEAD (09/03/2015 13:10 EDT) Specimen (Source) Anatomical Collection Method Collection Time Re ceived Time Location / / Volume Laterality 09/03/2015 13:10 EDT Narrative [facility] EKG - 09/04/2015 11:5 5 EDT ?[facility] Emergency ? Test Date: ?2015-09-03 Pat Name: ? JOY CUNHA ?Department: ?? ED ? Room: ? AC10 Gender: ? F ?Interactive Video Technician: ?? [id number] : ?1940 ? Requested By: AVNI Putnam Order Number: [id number] ? Azeem HINKLE: ?? ANNELISE CASTILLO MD ? Measurements Intervals ?[place] ? Rate: ? 86 ? P: ?21 [...] might be different from the original. [facility] [facility] Test Date: 2015-09-03 Pat Name: JOY CUNHA Department: ED Room: AC10 Gender: F Interactive Video Technician: [id number] : 1940 Requested By: AVNI Putnam Order Number: [id number] Reading MD: Merrill CASTILLO MD Measurements Intervals [place] Rate: 86 P: 21 [place]: 220 QRS: [...] Organization Address City/State/ZIP Code Phon e Number [facility] EKG ED/URGENT CARE ADD-ON (09/03/2015 12:25 EDT) [facility] Method Time Signature Tests to be LIPASE 09/03/2015 [facility] added 12:23 EDT [facility] [place] Number for [id number] (ED) 09/03/2015 [facility] problems 12:23 EDT [facility] Specimen Anatomical Collection Method Collection Time Receive d Time (Source) Location / / Volume Laterality OTHER / Unknown 09/03/2015 12:25 09/03/19 16 EDT 12:29 EDT Ken Leggett MD HEMATOLOGY & PF4 ORDERABLES Performing Organization Address City/State/ZIP Code Phon e Number [facility]ORATORY [address] [place] [address] SERVICES ED/URGENT CARE ADD-ON (09/03/2015 12:25 EDT) [facility] Method Time Signature Tests to be TSH 09/03/2015 [facility] added 12:22 EDT [facility] [place] [id number] (ED) 09/03/2015 [facility] problems 12:22 EDT [facility] Specimen Anatomical Collection Method Collection Time Receive d Time (Source) Location / / Volume Laterality OTHER / Unknown 09/03/2015 12:25 09/03/19 16 EDT 12:28 EDT Ken Leggett MD HEMATOLOGY & PF4 ORDERABLES Performing Organization Address City/State/ZIP Code Phon e Number [facility] [address] [place] [address] SERVICES ED/URGENT CARE ADD-ON (09/03/2015 12:20 EDT) [facility] gist Method Time Signature Tests to be TROPONIN 1 09/03/2015 [facility] added 12:17 EDT [facility] [place] [id number] (ED) 09/03/2015 [facility] problems 12:17 EDT [facility] SERVICES Specimen Anatomical Collection Method Collection Time Receive d Time (Source) Location / / Volume Laterality OTHER / Unknown 09/03/2015 12:20 09/03/19 16 EDT 12:23 EDT Ken Leggett MD HEMATOLOGY & PF4 ORDERABLES Performing Organization Address City/[facility]/ZIP Code Phon e Number [facility] [address] [place] [address] SERVICES BILIRUBIN, TOTAL (09/03/2015 11:55 EDT) P athologist Signature Bilirubin, 1.1 <1.4 mg/dl 09/03/2015 [facility] Total 13:45 EDT [facility]ENTER [facility] SERVICES Specimen Anatomical Collection Method Collection Time Receive d Time (Source) Location / / Volume Laterality BLOOD SPECIMEN / 09/03/2015 11:55 016 Unknown EDT 12:05 EDT Ken Leggett MD CHEMISTRY & BLOOD GAS ORDERA BLES Performing Organization Address City/[facility]/ZIP Code Phon e Number [facility] [address] [place] [address] SERVICES (ABNORMAL) AST (09/03/2015 11:55 EDT) P athologist Signature AST 116 (H) 15 - 46 U/L 09/03/2015 [facility] 13:45 EDT [facility]ENTER [facility] SERVICES Specimen Anatomical Collection Method Collection Time Receive d Time (Source) Location / / Volume Laterality BLOOD SPECIMEN / 09/03/2015 11:55 016 Unknown EDT 12:05 EDT Ken Leggett MD CHEMISTRY & BLOOD GAS ORDERA BLES Performing Organization Address City/[facility]/ZIP Code Phon e Number [facility] [address] [place] [address] SERVICES (ABNORMAL) ALT (09/03/2015 11:55 EDT) athologist Signature ALT 78 (H) <53 U/L 09/03/2015 [facility] 13:45 EDT CENTER LABORATORY SERVICES Specimen Anatomical Collection Method Collection Time Receive d Time (Source) Location / / Volume Laterality BLOOD SPECIMEN / 09/03/2015 11:55 016 Unknown EDT 12:05 EDT Ken Leggett MD CHEMISTRY & BLOOD GAS ORDERA BLES Performing Organization Address City/State/ZIP Code Phon e Number [facility] [address] [place] [address] SERVICES ALKALINE PHOSPHATASE (09/03/2015 11:55 EDT) athologist Signature Total Alkaline 97 38 - 126 09/03/2015 [facility] Phosphatase U/L 13:45 EDT CENTER LABORATORY SERVICES Specimen Anatomical Collection Method Collection Time Receive d Time (Source) Location / / Volume Laterality BLOOD SPECIMEN / 09/03/2015 11:55 016 Unknown EDT 12:05 EDT Ken Leggett MD CHEMISTRY & BLOOD GAS ORDERA BLES Performing Organization Address City/State/ZIP Code Phon e Number [facility] [address] [place] [address] SERVICES (ABNORMAL) TSH (09/03/2015 11:55 EDT) athologist Signature TSH 0.14 (L) 0.55 - 4.78 09/03/2015 [facility] uIU/ml 13:23 EDT CENTER LABORATORY SERVICES Specimen Anatomical Collection Method Collection Time Receive d Time (Source) Location / / Volume Laterality BLOOD SPECIMEN / 09/03/2015 11:55 016 Unknown EDT 12:05 EDT Ken Leggett MD CHEMISTRY & BLOOD GAS ORDERA BLES Performing Organization Address City/State/ZIP Code Phon e Number [facility] [address] [place] [address] SERVICES LIPASE (09/03/2015 11:55 EDT) athologist Signature Lipase 31 <251 U/L 09/03/2015 [facility] 12:43 EDT CENTER LABORATORY SERVICES Specimen Anatomical Collection Method Collection Time Receive d Time (Source) Location / / Volume Laterality BLOOD SPECIMEN / 09/03/2015 11:55 016 Unknown EDT 12:05 EDT Ken Leggett MD CHEMISTRY & BLOOD GAS ORDERA BLES Performing Organization Address City/State/ZIP Code Phon e Number [facility] [address] [place] [address] SERVICES (ABNORMAL) TROPONIN I (09/03/2015 11:55 EDT) [facility] gist Method Time Signature Troponin I 0.073 (H) <0.034 09/03/2015 [facility] (ng/mL) ng/ml 12:53 EDT CENTER LABORATORY SERVICES Specimen Anatomical Collection Method Collection Time Receive d Time (Source) Location / / Volume Laterality BLOOD SPECIMEN / 09/03/2015 11:55 016 Unknown EDT 12:05 EDT Ken Leggett MD CHEMISTRY & BLOOD GAS ORDERA BLES Performing Organization Address City/[facility]/ZIP Code Phon e Number [facility] [address] [place] [address] SERVICES (ABNORMAL) LACTIC ACID (09/03/2015 11:55 EDT) P athologist Signature Lactic Acid 3.2 (HH) <2.0 09/03/2015 [facility] mmol/L 12:40 EDT [facility] Specimen Anatomical Collection Method Collection Time Receive d Time (Source) Location / / Volume Laterality Blood specimen BLOOD SPECIMEN / 09/03/2015 11:55 09/02 (specimen) Unknown EDT 12:05 EDT Ken Leggett MD CHEMISTRY & BLOOD GAS ORDERA BLES Performing Organization Address City/[facility]/ZIP Code Phon e Number [facility] [address] [place] [address] SERVICES (ABNORMAL) HEMAGRAM AND DIFFERENTIAL (09/03/2015 11:55 EDT) Component Value Ref Test Analysis Performed At [facility] gist Range Method Time Signature WBC 23.44 (H) 4.0 - 09/03/2015 [facility] 12.4 12:15 EDT CENTER K/cmm LABORATORY SERVICES RBC 4.00 3.86 - 09/03/2015 [facility] 5.04 12:15 EDT CENTER M/cmm LABORATORY SERVICES Hemoglobin 11.8 11.6 - 09/03/2015 [facility] 15.2 12:15 EDT CENTER gm/dl LABORATORY SERVICES HCT 36.9 34.9 - 09/03/2015 [facility] 44.4 % 12:15 EDT CENTER LABORATORY SERVICES MCV 92 81 - 98 09/03/2015 [facility] fl 12:15 EDT CENTER LABORATORY SERVICES MCH 29.5 26.7 - 09/03/2015 [facility] 33.3 pg 12:15 EDT CENTER LABORATORY SERVICES MCHC 32.0 (L) 32.1 - 09/03/2015 [facility] 35.9 12:15 EDT CENTER gm/dl LABORATORY SERVICES RDW-CV 14.6 11.7 - 09/03/2015 [facility] 14.6 % 12:15 EDT CENTER LABORATORY SERVICES RDW-SD 49.4 37.6 - 09/03/2015 [facility] 50.3 fl 12:15 EDT CENTER LABORATORY SERVICES PLT 139 (L) 141 - 09/03/2015 [facility] 377 12:15 EDT CENTER K/cmm LABORATORY SERVICES MPV 10.2 9.5 - 09/03/2015 [facility] 12.7 fl 12:15 EDT CENTER LABORATORY SERVICES Neutrophils 76.0 % 09/03/2015 [facility] 13:10 EDT CENTER LABORATORY SERVICES Bands 13.0 % 09/03/2015 [facility] 13:10 EDT [facility]ENTER LABORATORY SERVICES Lymphocytes 3.0 % 09/03/2015 [facility] 13:10 EDT CENTER LABORATORY SERVICES Monocytes 1.0 % 09/03/2015 [facility] 13:10 EDT [facility]ENTER LABORATORY SERVICES Metamyelocytes 7.0 % 09/03/2015 [facility] 13:10 EDT CENTER LABORATORY SERVICES ABS Neutrophils 17.82 (H) 2.20 - 09/03/2015 [facility] 8.85 13:10 EDT CENTER K/cmm LABORATORY SERVICES ABS Bands 3.05 K/cmm 09/03/2015 [facility] 13:10 EDT CENTER LABORATORY SERVICES ABS Lymphs 0.70 (L) 1.09 - 09/03/2015 [facility] 3.30 13:10 EDT CENTER K/cmm LABORATORY SERVICES ABS Monocytes 0.23 0.1 - 09/03/2015 [facility] 0.8 13:10 EDT CENTER K/cmm LABORATORY SERVICES ABS 1.64 K/cmm 09/03/2015 [facility] Metamyelocytes 13:10 [facility] CENTER LABORATORY SERVICES Differential Rev'd by 09/03/2015 [facility] Comment Pathologist 13:10 [facility] C[facility] LABORATORY SERVICES Toxic Granulation Present 09/03/2015 [facility] 13:10 [facility] LABORATORY SERVICES Type of Diff: Manual 09/03/2015 [facility] 13:10 [facility] LABORATORY SERVICES Specimen Anatomical Collection Method Collection Time Receive d Time (Source) Location / / Volume Laterality Blood specimen BLOOD SPECIMEN / 09/03/2015 11:55 09/02 (specimen) Unknown EDT 12:05 EDT Ken Leggett MD PACKAGES & DNA PROBE ORDERAB LES Performing Organization Address City/State/ZIP Code Phon e Number [facility] [address] [place] [address] SERVICES (ABNORMAL) BASIC METABOLIC PANEL (09/03/2015 11:55 EDT) Analysis Performed At Patho logist Time Signature Sodium 145 136 - 145 09/03/2015 [facility] mEq/L 12:27 [facility] LABORATORY SERVICES Potassium 3.3 (L) 3.5 - 5.0 09/03/2015 [facility] mEq/L 12:27 [facility] LABORATORY SERVICES Chloride 113 (H) 96 - 110 09/03/2015 [facility] mEq/L 12:27 [facility] LABORATORY SERVICES CO2 20 (L) 24 - 32 09/03/2015 [facility] mEq/L 12:43 [facility] LABORATORY SERVICES BUN 17 10 - 26 09/03/2015 [facility] mg/dl 12:43 [facility] LABORATORY SERVICES Creatinine 0.93 0.52 - 09/03/2015 [facility] 1.04 mg/dl 12:43 [facility] LABORATORY SERVICES GFR, Calculated 62 >60 09/03/2015 [facility] ml/min/1.7 12:43 [facility] 3m2 LABORATORY SERVICES Comment: eGFR calculated using CKD-EPI equation f or non Americans. Multiply eGFR by 1.16 for Americans. Calcium 7.4 (L) 8.5 - 10.5 09/03/2015 12:43 EDT [facility] mg/dl LABORATORY SERVICES Calculated Calcium 9.2 8.5 - 10.5 09/03/2015 12:43 EDT [facility] C[facility] mg/dl LABORATORY SERVICES Glucose, Serum 109 (H) 70 - 100 mg/dl 09/03/2015 12:43 EDT [facility] LABORATORY SERVICES Fasting? Unknown 09/03/2015 12:43 EDT [facility] LABORATORY SERVICES Specimen Anatomical Collection Method Collection Time Receive d Time (Source) Location / / Volume Laterality Blood specimen BLOOD SPECIMEN / 09/03/2015 11:55 09/02 (specimen) Unknown EDT 12:05 EDT Ken Leggett MD CHEMISTRY & BLOOD GAS ORDERA BLES Performing Organization Address City/State/ZIP Code Phon e Number [facility] [address] [place] [address] SERVICES documented in this encounter Visit Diagnoses Diagnosis Intra-abdominal infection - Primary Unspecified infectious and parasitic dis eases Sepsis, due to unspecified organism Intra-abdominal infection Unspecified infectious and parasitic dis eases Elevated troponin Other abnormal blood chemistry Sepsis Unspecified septicemia documented in this encounter Administered Medications Inactive Administered Medications - up to 3 most recent administrations Medication Order MAR Action Action Date Dose Rate Site acetaminophen (TYLENOL) tablet 650 Given 09/04/2015 21:50 EDT 65 0 mg mg 650 mg, oral, EVERY 4 HOURS PRN, Starting on Tue09/03/15 at 1921, Until 09/07/15 at 1553, Pain, Routine amoxicillin-clavulanate (AUGMENTIN) 875-125 [...] on Tue09/03/15 at 1315, Until Tue09/04/15 at 2047, Routine Rate Documented 09/04/2015 5:00 [...] TIMES DAILY, 3 doses, First dose on 09/05/15 at 1030, Last dose on Tue09/06/15 at [...] Routine docusate sodium (COLACE) capsule 100 mg 0 (Not Given - Provider: Leanna Rudd, ARYA - Reason: Patient/family refused) 0854 (Given - Provider: Mary Ren, RN) 100 mg, oral, 2 TIMES DAILY, First dose on 09/06/15 at 2100, Until Discontinued, Routine enoxaparin (LOVENOX) injection 40 mg (CANCELED) 0815 ( Given - Provider: Stacey Johnson, ARYA) 0825 (Given - Provider: Virginia Funk, ARYA) 0853 (Given - Provider: Mary Ren, ARYA) 40 mg, subcutaneous, DAILY, First dose o n Kinjal 09/04/15 at 0900, Until Discontinued, Routine furosemide (LASIX) injection 20 mg (COMPLETED) 0013 (G iven - Provider: Caro Kaufman RN) 20 mg, intravenous, NOW X1, 1 dose, Tue09/05/15 at 0030, Routine levothyroxine (SYNTHROID) tablet 112 mcg (CANCELED) 0833 (Given - Provider: Virginia Funk RN) 0854 (Given - Provider: Mary Ren , ARYA) 112 mcg, oral, DAILY, First dose on 09/06/15 at 0900, Until Discontinued, Routine levothyroxine 50 mcg IV syringe (CANCELED) 0815 (Given - Provider: Stacey Johnson RN) 50 mcg, intravenous, DAILY, First dose o n Kinjal 09/04/15 at 0900, Until Discontinued, Routine oxybutynin (DITROPAN) tablet 5 mg (CANCELED) 1612 (Giv en - Provider: John Davies RN) 0825 (Given - Provider: Virginia Funk, [...] Caro Kaufman, RN)0726 (Given - Provider: Stacey Johnson RN)1619 (Given - Provider: John Davies, ARYA) 4.5 g, intravenous, for 4 Hours, EVERY 8 HOURS, 7 doses, First dose on Tue09/03/15 at 1600, Last dose on Tue09/05/15 at 1600, Routine potassium chloride IVPB 20 mEq/100 mL (COMPLETED) 1029 (Given - Provider: Stacey Johnson RN)1137 (Given - Provider: Stacey Johnson, ARYA) 20 mEq, intravenous, EVERY HOUR, 2 doses , First dose on Tue09/05/15 at 1100, Last dose on Tue09/05/15 at 1200, Routine potassium, sodium phosphates (PHOS-NAK) 280-160-250 mg packet 8 mmol (COMPLETED) 1135 (Not Given - Provider: Stacey rasmussen RN - Reason: Medication not available)1303 (Given - Provider: Stacey Johnson RN)2101 (Given - Provider: Lorie Lauren, ARYA) 0825 [...] Date First Ordered Date ED BED REQUEST 09/03/2015 STATUS: INPATIENT ACUTE ADMISSION 1 09/03/2015 Transfer Count Last Ordered Date First Ordered Date NOTIFY PPS OF DISCHARGE COMPLETE 1 09/07/2015 PPS NOTIFICATION OF PATIENT ARRIVAL ON 3 6 09/03/2015 UNIT PPS NOTIFICATION OF SENDING PATIENT OFF 1 09/05/19 16 THE UNIT TRANSFER PATIENT 1 09/05/2015 CHANGE ATTENDING TO: 09/03/2015 UR PATIENT STATUS CHANGE 09/03/2015 Discharge Count Last Ordered Date First Ordered Date DISCHARGE PATIENT 1 09/07/2015 documented in this encounter Care Teams Typesetter Apprentice Relationship Specialty Start Date End Date Jodi Camp MD PCP - General 09/03/15 12/22/[address] [address] documented as of this encounter
--- OUTSIDE RECORDS SUMMARY | 2022-03-05 01:53 | XMS_ITS | Encounter Summary ---
:1940 Author Organization [facility] Address [address] [place] [address] Care Team Providers Name Role Phone Unavailable Primary Care Provider Unavailable Encounter Details Date Type Department Care Team Description 12/14/1999 Hospital Encounter [facility] - Ethel Castro MD [address] [place] [address] [address] [place] [address] Other Unknown, Provider, [address] [place] [address] Social History Tobacco Use Types Packs/Day Years Used Date Smoking Tobacco: Never Assessed Sex Assigned at Date Recorded Not on file documented as of this encounter Discharge Disposition Disposition Code Departure Means Destination Auto Discharge documented in this encounter Plan of Treatment Not on filedocumented as of this encounter Procedures Procedure Name Priority Date/Time Associated Diagnosis Comme [facility] CYTOPATHOLOGY Routine 12/14/1999 0:00 EDT Results for this procedure are i n the results section . documented in this encounter Results CYTOPATHOLOGY (12/14/1999 0:00 EDT) Component Value Ref Test Analysis Performed At [facility] Pathology CYTOPATHOLOGY REPORT PANDA Report: [facility] Reports generated via electronic interface contain original data; however they are lacking the format of the original report. Caution should be taken when reading/interpreting unformatte d reports. Name: ? JOY CUNHA ? Accession #: ? [id number] : ? 1940 (Age: 59) ??F [...] Document reviewed and electronically signed by: ? NYAA Gonzalez(ASCP) ? Report Date: ??12/16/1999 13:27 End of Report Specimen (Source) Anatomical Location Collection Method / Collectio n Time Received Time / Laterality Volume 12/14/1999 12/16/1999 Ethel Currie MD PATHOLOGY ORDERABLES Performing Organization Address City/State/ZIP Code Phon e Number [facility] [address] [place] [address] SERVICES PANDA [facility] [address] [place] [address] documented in this encounter Visit Diagnoses Not on filedocumented in this encounter
--- OUTSIDE RECORDS SUMMARY | 2022-03-05 01:53 | XMS_ITS | Encounter Summary ---
:1940 Author Organization [facility] Address [address] [place] [address] Care Team Providers Name Role Phone Nayan Hilton DO Primary Care Provider Reason for Visit (Routine) - Receiving Office to Obtain Authorization Specialty Diagnoses / Procedures Referred By Contact Refer red To Contact Procedures Unknown, Provider, CT OUTSIDE IMAGES BODY Phone: Referral ID Status Reason Start Expiration Visits Visits Date Date Requested Authorized [id number] Receiving Office 11/07/2019 1 1 to Obtain Authorization Encounter Details Date Type Department Care Team Description 10/30/2019 Hospital Encounter [facility] Radiology - Main [place] [address] [place] [address] Social History Tobacco Use Types Packs/Day Years [...] on filedocumented in this encounter Care Teams Cracker Dough Mixer Relationship Specialty Start Date End Date Nayan Hilton DO PCP - General 06/17/17 04/01/20 documented as of this encounter
--- OUTSIDE RECORDS SUMMARY | 2022-03-05 01:53 | XMS_ITS | Encounter Summary ---
:[address] [facility] Address [address] [place] [address] Care Team Providers Name Role Phone Dacia Hendrix MD Primary Care Provider [phone] Reason for Referral DERMATOLOGY PHYSICIAN (Other (Specify in Question)) - Closed Specialty Diagnoses / Procedures Referred By Contact Refer red To Contact Diagnoses Adnexal cyst Fluid in endometrial cavity Shantelle Ureña MD Procedures BILINGUAL INTERPRETER US PELVIS TRANSVAGINAL [address] [place] [address] [address] [place] [address] Referral ID Status Reason Start Date Expiration Date Visits Requ ested Visits Authorized [id number] Closed 12/23/2015 1 1 Reason for Visit Reason Comments Advice Only possible adnexal mass/cyst Encounter Details Date Type Department Care Team Description 12/23/[address] [facility] Shantelle Ureña exal cyst (Primary Dx); [facility] - MD Claudine Fluid in endometrial cavity [facility] [address] [place] [address] (Wo rk) Social History Tobacco [...] her sepsis, however she was transferred from [facility] to [facility] for ICU care requiring pressors and IV antibiotics. She recovered with those treatments and was subsequently discharged home without ever identifying the etiology of her sepsis. In follow- up, her PCP obtained a credit portfolio advisor U/S at [facility] to evaluate the adnexal mass which again noted the mass but was unable to identify the source (hydrosalpinx vs ovarian cystic mass vs GI stricture) and she was subsequently referred back to [facility] for another U/S and consult with Gynecology. Overall, the patient reports that she feels quite well and has recovered from her hospitalization inJune. She has no specific complaints at this time and denies any fevers/chills, chest pain, respiratory symptoms, abdominal pain, N/V, changes in bowel/bladder function, vaginal discharge, vaginal bleed ing/spotting, pelvic pain or other complaints. Can Feeder History: OB History Para Term AB TAB [...] file Social History Narrative Review of Systems BILINGUAL INTERPRETER ROS Complete: negative Promotional Model Objective: Visit Vitals ??? BP 102/84 (BP [...] back in 6 months time for a BILINGUAL INTERPRETER ultrasound which I have taken the liberty of ordering and will follow-up with those results at that time. All questions answered. Time Spent Counseling Patient: I spent 45 minutes with patient greater than 50% which was counseling. Shantelle Ureña MD documented in this encounter Plan of Treatment Not on filedocumented as of this encounter Procedures Procedure Name Priority Date/Time Associated Diagnosis Comme nts BILINGUAL INTERPRETER US PELVIS Routine 06/21/2016 9:18 Adnexal cyst Results for this TRANSVAGINAL EDT Fluid in endometrial procedu re are in cavity the results section. documented in this encounter Results BILINGUAL INTERPRETER US PELVIS TRANSVAGINAL (06/21/2016 9:18 EDT) Anatomical Region Laterality Modality Other Specimen Anatomical Collection Method Collection Time Receive d Time (Source) Location / / Volume Laterality 06/21/2016 9:18 06/21/2016 9 :43 EDT EDT Narrative 06/21/2016 9:43 EDT Indication Follow-up Right adnexal [...] normal. No free fluid visualized . Impression Transvaginal(93153) and Transabdominal L imited ([id number])pelvic US 1. Uterus with normal appearing myometri [...] pursue any further testing at this ti ar. Discussed possibility of endometrial biopsy, Ca-125 as [...] w/patient. Procedure Note Shantelle Ureña MD - 06/21/2016Format ting of this note might be different from the original. Indication Follow-up Right adnexal cystic mass. Uterus [...] normal. No free fluid visualized . Impression Transvaginal([id number]) and Transabdominal L imited ([id number])pelvic US 1. Uterus with normal appearing myometri [...] pursue any further testing at this ti ar. Discussed possibility of endometrial biopsy, Ca-125 as [...] since prior exams. Ultrasound findings discussed w/patient. Shantelle Ureña MD IMG US BILINGUAL INTERPRETER ORDERABLES documented in this encounter Visit Diagnoses [...] documented as of this encounter Care Teams Lab Support Service Tech Relationship Specialty Start Date End Date Dacia Hendrix MD PCP - General 12/23/15 06/16/17 [address] [place] [address] documented as of this encounter
--- OUTSIDE RECORDS SUMMARY | 2022-03-05 01:53 | XMS_ITS | Encounter Summary ---
:1940 Author Organization [facility] Address [address] [place] [address] Care Team Providers Name Role Phone Fabiano Aranda MD Primary Care Provider Encounter Details Date Type Department Care Team Description 02/23/2010 Orders Only [facility] Cancer Center Lino Ashton MS Family history of Hematology & Oncology [address] [facility] [place] [address] (Primary Dx) [address] [facility] [place] [address] [phone] Social History Tobacco Use Types Packs/Day Years Used Date Smoking Tobacco: Never Assessed Sex Assigned at Date Recorded Not on file documented as of this encounter Plan of Treatment Not on filedocumented as of this encounter Results 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 accession number; [id number]. ? 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 with testing. Call [facility] for ? instructions for testing pat ients who have received a bone ? marrow transplant. ? This test was developed and its performance characteristics ? determined by Laboratory Med icine and Pathology, [facility]. This test has not be en cleared or approved by the ? U.S. Food and Drug Administr ation. ? Reviewed By PANDA Silva MD ? [facility] Release Date 09 Mar 2010 10:28 PANDA Performed or Referred by: [facility] Dpt of Lab Med and P ath, [address] [facility] ?? , [place] [address], Lab Dir: Myles Spangler III, MD Specimen Anatomical Collection Method Collection Time Receive d Time (Source) Location / / Volume Laterality Blood specimen 02/23/2010 15:46 0 (specimen) EST 16:01 EST Steffen Severino MD HEMATOLOGY & PF4 ORDERABLES Performing Organization Address City/State/ZIP Code Phon e Number [facility] [address] [place] [address] SERVICES [facility] [address] [place] [address] documented in this encounter Visit Diagnoses Diagnosis Family history of genetic disease - Prim marycruz Family history of other condition documented in this encounter Care Teams Automat Watcher Relationship Specialty Start Date End Date Fabiano Aranda MD PCP - General 02/20/10 09/02/[address] [place] [address] [address] [place] [phone] documented as of this encounter
--- OUTSIDE RECORDS SUMMARY | 2022-03-05 01:53 | XMS_ITS | Encounter Summary ---
:1940 Author Organization [facility] Address [address] [place] [address] Care Team Providers Name Role Phone Fabiano Aranda MD Primary Care Provider Reason for Visit Reason Onset Date Comments Results 03/16/2010 Encounter Details Date Type Department Care Team Description 03/16/2010 Telephone [facility] Cancer Center Lino Ashton MS Results Hematology & Oncology - [address] [place] [address] [address] [facility] [place] [address] [phone] Social History Tobacco Use Types Packs/Day Years [...] filedocumented in this encounter Care Teams Retail Salesperson Relationship Specialty Start Date End Date Fabiano Aranda MD PCP - General 02/20/10 09/02/[address] [place] [address] [address] [place] [phone] documented as of this encounter
--- OUTSIDE RECORDS SUMMARY | 2022-03-05 01:53 | XMS_ITS | Encounter Summary ---
:1940 Author Organization [facility] Address [address] [place] [address] Care Team Providers Name Role Phone Nayan Hilton Primary Care Provider Manuel Isaacs MD Primary Care Provider Encounter Details Date Type Department Care Team Description 10/01/2019 Lab Requisition [facility] Viviana Loera for other Pathology & Ramsey Medina MD general examination Laboratory Medicine [address] [place] [address] [address] [place], [place] [id number] [place] [address] [phone] Social History Tobacco Use Types Packs/Day Years [...] Component Value Ref Test Analysis Performed At [facility] Range Method Time Signature Final A. SKIN OF VULVA, RIGHT LABIA, 9 O'CLOCK, BIOPSY: 10/04/2019 [facility] Electronically Diagnosis - Interface dermatitis. See comment. 11: 35 [facility] signed by [facility] LABORAT[facility] Karin parker MD SERVICES on 0 at 1135 Attestation By the signature 10/04/2019 [facility]ICA L Electronically below, the 11:35 [facility] signed by Damion attending LABORATORY Karin parker MD physician SERVICES on 0 at certifies that 1135 they have 1) personally conducted a gross and/or microscopic examination of the described specimen(s), and/or personally interpreted the results of laboratory testing of the described specimen(s), and 2) personally rendered or confirmed the above diagnosis. Diagnosis Although there is 10/04/2019 [facility] Comment no developed 11:35 [facility] sclerosis, the LABORATORY histologic SERVICES features are consistent with early lichen sclerosus. Microscopic Sections consist 10/04/2019 [facility]ICA L Description of a biopsy of 11:35 [facility] skin/mucosa. LABORATORY There is slight SERVICES hyperkeratosis. The epithelium varies to a mild degree in thickness. There is mild interface vacuolar change with occasional necrotic cells. There is a patchy lichenoid lymphocytic infiltrate. Collagen bundles in the superficial dermis are slightly thickened on deeper sections. Clinical Lichen sclerosus 10/04/2019 [facility] History 11:[address] [place] [address] LABORATORY SERVICES Gross A. Received in formalin labe lled with proper patient identification (initials H, I) and not otherwise specified is a shave biopsy of white focally pale pate skin (0.4 x 0.3 x 0.2 cm). The probable margin 10/04/2019 [facility] Description is inked blue. Specimen is submitted intact in A1. 11:[address] [place] [address] LABORATORY Dharmesh Yousif 10/02/2019 9:47 SERVICES Scanned Images 10/04/2019 [facility] MEDICAL 11:35 [facility] SERVICES Specimen Anatomical Collection Method Collection Time Receive d Time (Source) Location / / Volume Laterality Tissue ENTIRE VULVA / 09/28/2019 16:00 0 7:11 Unknown EDT EDT Ramsey Loera MD PATHOLOGY ORDERABLES Performing Organization Address City/State/ZIP Code Phon e Number [facility] [address] [place] [address] SERVICES documented in this encounter Visit Diagnoses Diagnosis Encounter for other general examination documented in this encounter Care Teams Corporate Specialist Relationship Specialty Start Date End Date Nayan Hilton DO PCP - General 06/17/17 04/01/20 Manuel Isaacs MD PCP - General 04/02/[address] [place] [phone] documented as of this encounter
--- OUTSIDE RECORDS SUMMARY | 2022-03-05 01:53 | XMS_ITS | Encounter Summary ---
:1940 Author Organization [facility] Address [address] [place] [address] Care Team Providers Name Role Phone Dacia Hendrix MD Primary Care Provider [phone] Reason for Referral TRANSPORTATION SERVICES REPRESENTATIVE (Routine) - Closed Specialty Diagnoses / Procedures Referred By Contact Refer red To Contact Diagnoses Adnexal cyst Fluid in endometrial cavity Shantelle Ureña MD Procedures OPERATIONS ADMINISTRATIVE ASSISTANT US PELVIS TRANSVAGINAL [address] [place] [phone] Referral ID Status Reason Start Date Expiration Date Visits Requ ested Visits Authorized [id number] Closed 06/21/2016 1 1 Encounter Details Date Type Department Care Team Description 06/21/2016 Orders Only [facility] Shantelle Ureña Adnexa l cyst (Primary Dx); Women's Services - MD Claudine Fluid in endometrial cavity [facility] [address] [place], [place] [address] [place] [address] [phone] (Wo rk) Social History Tobacco [...] Name Priority Date/Time Associated Diagnosis Comme nts OPERATIONS ADMINISTRATIVE ASSISTANT US PELVIS Routine 06/20/2017 9:07 Adnexal cyst Results for this TRANSVAGINAL EDT Fluid in endometrial procedu re are in cavity the results section. documented in this encounter Results OPERATIONS ADMINISTRATIVE ASSISTANT US PELVIS TRANSVAGINAL (06/20/2017 9:07 EDT) Anatomical [...] free fluid visualized . Impression Transvaginal Pelvic [id number] 1. Stable intracavitary fluid with thin endometrium [...] free fluid visualized . Impression Transvaginal Pelvic [id number] 1. Stable intracavitary fluid with thin endometrium [...] SERVICE: 06/20/2017 Shantelle Ureña MD IMG US OPERATIONS ADMINISTRATIVE ASSISTANT ORDERABLES documented in this encounter Visit Diagnoses Diagnosis Adnexal cyst - Primary Other specified symptom associated with female genital organs Fluid in endometrial cavity Other specified disorders of uterus, not elsewhere classified documented in this encounter Care Teams Fish Hatchery Laborer Relationship Specialty Start Date End Date Dacia Hendrix MD PCP - General 12/23/15 06/16/17 [address] [place] [address] documented as of this encounter
[2022-03-05] MEDS: Normal Saline Flush 10 ML SYR IVP (08:02)
[2022-03-05 08:24] LABS: Abs Immature Grans 0.02 10^3/uL (0.0-0.06); Absolute Basophil Count 0.04 10^3/uL (0.0-0.2); Absolute Eosinophil Count 0.19 10^3/uL (0.0-0.7); Absolute Lymphocyte Count 1.34 10^3/uL (1.2-3.4); Absolute Monocyte Count 0.61 10^3/uL (0.1-0.8); Absolute Neutrophil Count 3.08 10^3/uL (1.2-6.7); Basophils % 0.8; Eosinophils % 3.6; HCT 38.7 % (36.0-46.0); HGB 12.5 g/dL (11.2-15.7); Immature Grans % 0.4; Lymphocytes % 25.4; MCH 32.7 pg (27.0-33.0); MCHC 32.3 % (32.0-36.0); MCV 101 fL (80-95); MPV 9.6 fL (8.0-11.0); Monocytes % 11.6; Neutrophils % 58.2; Platelet Count 196 10^3/uL (130-400); RBC 3.82 10^6/uL (3.93-5.22); RDW 13.2 % (11.7-14.6); RDW-SD 48.8 fL; WBC 5.28 10^3/uL (4.4-10.8)
[2022-03-05 08:46] LABS: ALT 31 U/L (14-59); AST 28 U/L (15-37); Albumin 3.1 g/dL (3.4-5.0); Alkaline Phosphatase 98 U/L (46-116); Anion Gap 5.8 mmol/L (3-11); BUN 16 mg/dL (7-18); Bilirubin, Total 0.5 mg/dL (0.2-1.0); CO2 29.2 mmol/L (21.0-32.0); CREATININE 0.9 mg/dL (0.55-1.02); Chloride 105 mmol/L (98-107); Estimated GFR 65.03 (mL/min/1.73m2); Glucose 155 mg/dL (74-106); Potassium 3.6 mmol/L (3.5-5.1); Sodium 140 mmol/L (136-145); Total Protein 6.7 g/dL (6.4-8.2)
[2022-03-08 10:10] LABS: CEA 4.2 ng/mL (See Note)
[2022-03-26] MEDS: Normal Saline Flush 10 ML SYR IVP (08:11)
[2022-03-26 08:19] LABS: Absolute Basophil Count 0.04 10^3/uL (0.0-0.2); Absolute Eosinophil Count 0.18 10^3/uL (0.0-0.7); Absolute Lymphocyte Count 0.87 10^3/uL (1.2-3.4); Absolute Monocyte Count 0.57 10^3/uL (0.1-0.8); Absolute Neutrophil Count 1.67 10^3/uL (1.2-6.7); Basophils % 1.2; Eosinophils % 5.4; HCT 38.2 % (36.0-46.0); HGB 12.4 g/dL (11.2-15.7); Lymphocytes % 26.1; MCH 32.8 pg (27.0-33.0); MCHC 32.5 % (32.0-36.0); MCV 101 fL (80-95); MPV 9.2 fL (8.0-11.0); Monocytes % 17.1; Neutrophils % 50.2; Platelet Count 221 10^3/uL (130-400); RBC 3.78 10^6/uL (3.93-5.22); RDW 13.4 % (11.7-14.6); RDW-SD 49.6 fL; WBC 3.33 10^3/uL (4.4-10.8)
[2022-03-26 08:31] LABS: ALT 26 U/L (14-59); AST 29 U/L (15-37); Albumin 3.1 g/dL (3.4-5.0); Alkaline Phosphatase 101 U/L (46-116); Anion Gap 6.5 mmol/L (3-11); BUN 14 mg/dL (7-18); Bilirubin, Total 0.4 mg/dL (0.2-1.0); CO2 27.5 mmol/L (21.0-32.0); Calcium 9.1 mg/dL (8.5-10.1); Chloride 106 mmol/L (98-107); Estimated GFR 57.31 (mL/min/1.73m2); Glucose 165 mg/dL (74-106); Potassium 3.6 mmol/L (3.5-5.1); Sodium 140 mmol/L (136-145); Total Protein 7.1 g/dL (6.4-8.2)
[2022-03-26 20:18] LABS: CEA 4.9 ng/mL (See Note)
== END 2022-04-03 23:59 | disposition home or self-care (01) ==
LOC: INF 00:51
PROVIDERS: Visit Provider Internal Medicine Hematology & Oncology
DX: C18.9 Malignant neoplasm of colon, unspecified (principal); Z45.2 Encounter for adjustment and management of vascular access device
CPT/HCPCS: 36591; 80053; 82378; 85025

== ENCOUNTER 2022-04-26 01:36 | Outpatient (CLI) | payer MEDICARE, SELFPAY ==
[2022-04-26] MEDS: Breeza Beverage 473 ML BTL PO ×2 (08:28→08:29)
[2022-04-26] MEDS: Omnipaque 350 MG/ML 50 ML BTL PO (08:29)
--- NOTE | 2022-04-26 10:40 | DI.CT_ITS ---
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 TECHNIQUE: Imaging Protocol: Axial computed tomography images with coronal and sagittal reformatted images were created and reviewed CONTRAST MATERIAL: Intravenous: Omnipaque 350 Contrast volume:80 ml Oral: yes COMPARISON: CT CT CHEST/ABD/PELVIS W/CONTRAST from 02/10/2022 FINDINGS: CHEST: Tracheobronchial tree: Patent where visualized. Mediastinum and Alisia: Large hiatal hernia. No dominant adenopathy or fluid collection. Pulmonary parenchyma: Fibrotic changes. No consolidation. 4 millimeter nodule left lung apex, not s een previously. Pleura: No effusion or pneumothorax. Lymph nodes: Within normal limits. Aorta: Thoracic portion non-dilated. Minimal atherosclerotic changes. Pulmonary arteries: No evidence of emboli. Heart: Normal size. Bones: Stable minimal upper thoracic compression fractures. No lytic or blastic lesions. Port over right pectoral muscle. ABDOMEN: Liver: Normal density. No measurable mass. Gallbladder and biliary tract: Cholelithiasis. No gallbladder wall thickening or biliary dilatation. Pancreas: Fatty infiltration. no abnormal calcifications or inflammatory process. Spleen: Normal. Kidneys: Normal size, contour and axis. No radiodense stones or obstructive uropathy. Cyst upper scarlett e left kidney. No suspicious masses seen. Retroaortic left renal vein. Adrenal glands: No masses seen. Aorta: Abdominal portion non-dilated. Atherosclerotic changes. Lymph nodes: Within normal limits. Soft tissues: Evidence of previous right-sided ostomy. Stable area of mild thickening the lower righ t lateral rectus muscle. Midline surgical scar, unremarkable. PELVIS: Bladder: Symmetric distention, no gross wall thickening. Bowel: Anastomotic suture at sigmoid. Mild sigmoid diverticulosis. Ileal anastomosis unremarkable. No obstruction or bowel wall thickening. Peritoneal cavity: No ascites, collection or mesenteric inflammatory response. Bones: Degenerative changes. No lytic or blastic lesions identified. Reproductive organs: Apparent partial hysterectomy. IMPRESSION: Chest: New 4 millimeter nodule left lung apex. Abdomen pelvis: Stable area of thickening inferior right lateral rectus muscle. Evidence of prior ri ght lower quadrant ostomy. RADIATION DOSE DELIVERED: 1,940.09mGy.cm Total DLP DATA REPOSITORY: All CT scans at this facility are submitted to the National Radiology Data Registry (NRDR) Dose Index Registry (DIR) with the [employer] (ACR). RADIATION OPTIMIZATION: All CT scans at this facility use at least one of these dose optimization te chniques: automated exposure control; mA and/or kV adjustment per patient size (includes targeted exa ms where dose is matched to clinical indication); or iterative reconstruction.
[2022-04-26] MEDS: Normal Saline - Diluent 50 ML VIAL IJ (10:42)
[2022-04-26] MEDS: Omnipaque 350 MG/ML 500 ML BTL-Imaging package 100 ML IJ (10:46)
[2022-04-26] MEDS: Normal Saline Flush 10 ML SYR IVP (10:47)
== END 2022-04-26 01:56 ==
LOC: DI 01:36
PROVIDERS: Visit Provider Internal Medicine Hematology & Oncology
DX: R91.8 Other nonspecific abnormal finding of lung field (principal); C17.2 Malignant neoplasm of ileum
CPT/HCPCS: 74177; 96523; 71260; Q9967

== ENCOUNTER 2022-04-26 02:10 | Outpatient (RCR) | payer MEDICARE, SELFPAY ==
[2022-04-16] MEDS: Normal Saline Flush 10 ML SYR IVP (08:18)
[2022-04-16 08:34] LABS: Abs Immature Grans 0.01 10^3/uL (0.0-0.06); Absolute Basophil Count 0.04 10^3/uL (0.0-0.2); Absolute Lymphocyte Count 1.19 10^3/uL (1.2-3.4); Absolute Monocyte Count 0.81 10^3/uL (0.1-0.8); Basophils % 1.1; Eosinophils % 5.3; HCT 38.9 % (36.0-46.0); HGB 12.7 g/dL (11.2-15.7); Immature Grans % 0.3; Lymphocytes % 31.4; MCH 32.5 pg (27.0-33.0); MCHC 32.6 % (32.0-36.0); MCV 100 fL (80-95); MPV 9.2 fL (8.0-11.0); Monocytes % 21.4; Neutrophils % 40.5; Platelet Count 279 10^3/uL (130-400); RBC 3.91 10^6/uL (3.93-5.22); RDW 13.6 % (11.7-14.6); WBC 3.79 10^3/uL (4.4-10.8)
[2022-04-16 08:35] LABS: Absolute Neutrophil Count 1.53 10^3/uL (1.2-6.7)
[2022-04-16 08:51] LABS: ALT 27 U/L (14-59); AST 31 U/L (15-37); Albumin 3.2 g/dL (3.4-5.0); Alkaline Phosphatase 107 U/L (46-116); Anion Gap 7.1 mmol/L (3-11); BUN 16 mg/dL (7-18); Bilirubin, Total 0.5 mg/dL (0.2-1.0); CO2 26.9 mmol/L (21.0-32.0); CREATININE 1.1 mg/dL (0.55-1.02); Calcium 9.1 mg/dL (8.5-10.1); Chloride 106 mmol/L (98-107); Estimated GFR 51.11 (mL/min/1.73m2); Glucose 172 mg/dL (74-106); Potassium 3.5 mmol/L (3.5-5.1); Sodium 140 mmol/L (136-145); Total Protein 7.3 g/dL (6.4-8.2)
[2022-04-16 20:29] LABS: CEA 6.3 ng/mL (See Note)
[2022-04-26] MEDS: Normal Saline Flush 10 ML SYR IVP (08:23)
[2022-04-26] MEDS: Heparin 500 UNITS/5 ML SYRINGE (08:23)
== END 2022-05-04 23:59 | disposition home or self-care (01) ==
LOC: INF 02:10
PROVIDERS: Visit Provider Internal Medicine Hematology & Oncology
DX: C18.9 Malignant neoplasm of colon, unspecified (principal); Z45.2 Encounter for adjustment and management of vascular access device
CPT/HCPCS: 36591; 80053; 96523; 82378; 85025

== ENCOUNTER 2022-05-21 00:20 | Outpatient (RCR) | payer OTHER, SELFPAY ==
[2022-05-07] MEDS: Normal Saline Flush 10 ML SYR IVP (08:15)
[2022-05-07 08:50] LABS: Absolute Basophil Count 0.04 10^3/uL (0.0-0.2); Absolute Eosinophil Count 0.22 10^3/uL (0.0-0.7); Absolute Lymphocyte Count 1.14 10^3/uL (1.2-3.4); Absolute Monocyte Count 0.64 10^3/uL (0.1-0.8); Absolute Neutrophil Count 1.49 10^3/uL (1.2-6.7); Basophils % 1.1; Eosinophils % 6.2; HCT 38.7 % (36.0-46.0); HGB 12.4 g/dL (11.2-15.7); Lymphocytes % 32.3; MCH 32.5 pg (27.0-33.0); MCV 101 fL (80-95); MPV 9.7 fL (8.0-11.0); Monocytes % 18.1; Neutrophils % 42.3; Platelet Count 242 10^3/uL (130-400); RBC 3.82 10^6/uL (3.93-5.22); RDW 13.9 % (11.7-14.6); RDW-SD 51.6 fL; WBC 3.53 10^3/uL (4.4-10.8)
[2022-05-07 09:00] LABS: ALT 79 U/L (14-59); AST 46 U/L (15-37); Albumin 3.1 g/dL (3.4-5.0); Alkaline Phosphatase 120 U/L (46-116); Anion Gap 7.1 mmol/L (3-11); BUN 13 mg/dL (7-18); Bilirubin, Total 0.4 mg/dL (0.2-1.0); CO2 27.9 mmol/L (21.0-32.0); Calcium 9.4 mg/dL (8.5-10.1); Chloride 108 mmol/L (98-107); Estimated GFR 57.31 (mL/min/1.73m2); Glucose 144 mg/dL (74-106); Potassium 3.6 mmol/L (3.5-5.1); Sodium 143 mmol/L (136-145); Total Protein 6.8 g/dL (6.4-8.2)
[2022-05-07 20:16] LABS: CEA 5.6 ng/mL (See Note)
[2022-05-21] MEDS: Normal Saline Flush 10 ML SYR IVP (09:07)
[2022-05-21] MEDS: Heparin 500 UNITS/5 ML SYRINGE IV (09:07)
[2022-05-21 09:11] LABS: Abs Immature Grans 0.01 10^3/uL (0.0-0.06); Absolute Basophil Count 0.06 10^3/uL (0.0-0.2); Absolute Eosinophil Count 0.12 10^3/uL (0.0-0.7); Absolute Lymphocyte Count 1.41 10^3/uL (1.2-3.4); Absolute Monocyte Count 0.64 10^3/uL (0.1-0.8); Absolute Neutrophil Count 2.84 10^3/uL (1.2-6.7); Basophils % 1.2; Eosinophils % 2.4; HCT 38.6 % (36.0-46.0); HGB 12.8 g/dL (11.2-15.7); Immature Grans % 0.2; Lymphocytes % 27.8; MCH 32.6 pg (27.0-33.0); MCHC 33.2 % (32.0-36.0); MCV 98 fL (80-95); MPV 9.6 fL (8.0-11.0); Monocytes % 12.6; Neutrophils % 55.8; Platelet Count 207 10^3/uL (130-400); RBC 3.93 10^6/uL (3.93-5.22); RDW 13.3 % (11.7-14.6); RDW-SD 48.1 fL; WBC 5.08 10^3/uL (4.4-10.8)
[2022-05-21 09:30] LABS: ALT 37 U/L (14-59); AST 32 U/L (15-37); Albumin 3.2 g/dL (3.4-5.0); Alkaline Phosphatase 94 U/L (46-116); BUN 14 mg/dL (7-18); Bilirubin, Total 0.6 mg/dL (0.2-1.0); CREATININE 0.9 mg/dL (0.55-1.02); Calcium 9.2 mg/dL (8.5-10.1); Chloride 106 mmol/L (98-107); Estimated GFR 65.03 (mL/min/1.73m2); Glucose 123 mg/dL (74-106); Potassium 3.7 mmol/L (3.5-5.1); Sodium 141 mmol/L (136-145); Total Protein 6.9 g/dL (6.4-8.2)
[2022-05-21 20:20] LABS: CEA 5.3 ng/mL (See Note)
== END 2022-06-01 23:59 | disposition home or self-care (01) ==
LOC: INF 00:20
PROVIDERS: Visit Provider Internal Medicine Hematology & Oncology
DX: C18.9 Malignant neoplasm of colon, unspecified (principal); Z45.2 Encounter for adjustment and management of vascular access device
CPT/HCPCS: 36591; 80053; 82378; 85025

== ENCOUNTER 2022-06-29 01:41 | Outpatient (CLI) | payer OTHER, SELFPAY ==
[2022-06-29] MEDS: Barium Sulfate 2% W/V-Berry Smoothie 450 ML BTL 900 ML PO ×2 (08:58→08:59)
--- NOTE | 2022-06-29 10:58 | DI.CT_ITS ---
Exam(s) CT CHEST/ABD/PEL W EXAM: CT CHEST/ABD/PEL W CLINICAL HISTORY: SMALL BOWEL CA,C17.9,RESTAGING EXAM TECHNIQUE: Imaging Protocol: Axial computed tomography images with coronal and sagittal reformatted images were created and reviewed CONTRAST MATERIAL: Intravenous: Omnipaque 350 contrast volume:100 mL Oral: Yes COMPARISON: CT CT CHEST/ABD/PELVIS W/CONTRAST from 10/01/[address] CHEST/ABD/PELVIS W/CONTRAST from 02/10/[address] CHEST/ABD/PEL W from 04/26/2022 FINDINGS: CHEST: Tracheobronchial tree: Patent where visualized. Pulmonary parenchyma: There is a stable 4 mm nodule in the left lung apex. Calcified granuloma are p resent. No new pulmonary nodules are seen. No focal consolidating infiltrates are present. Visualized thyroid gland: Unremarkable. Mediastinum and Alisia: No dominant adenopathy or fluid collection. The esophagus is unremarkable. The re is a large hiatal hernia. Pleura: No effusion or pneumothorax. Heart: The heart is not dilated. No coronary artery calcifications are seen. No pericardial effusion. Pulmonary arteries: No pulmonary emboli are identified. Aorta: Thoracic aorta non-dilated. Atherosclerosis is present. Lymph nodes: Within normal limits. Tubes, Catheters, and Lines: There is an Jljkkb-H-Tayf type catheter in place. Soft tissues: Unremarkable. Bones:Within normal limits for the patient's age. No aggressive osseous lesions are present. ABDOMEN: Liver: Normal density. No measurable mass. Portal, Superior Mesenteric, and Splenic Veins: Unremarkable. Gallbladder and Biliary Tract: Cholelithiasis. There is no biliary ductal dilatation. Pancreas: There is fatty infiltration of the pancreas. Spleen: Normal. Adrenals: No masses seen. Kidneys: Normal size, contour and axis. No radiodense stones or obstructive uropathy. There is a simp le cyst in the left kidney. No follow-up is recommended. Note is made of a retroaortic left renal v ein. Abdominal Aorta: Abdominal portion non-dilated. Atherosclerosis is present. Bowel: No obstruction or bowel wall thickening. No evidence of appendicitis. There is diverticulosis seen in the colon but no evidence of acute diverticulitis. Peritoneal Cavity: No ascites, collection or mesenteric inflammatory response. No free air. There i s a 1.2 cm spiculated lesion in the right upper quadrant adjacent to a loop of small bowel. It is sh own interval increase in size compared to the prior examination. Lymph Nodes: Within normal limits. Bones: Within normal limits for the patient's age. No aggressive osseous lesions are identified. Soft Tissues: Findings of a prior right abdominal colostomy are again seen. The thickening along the lower right anterior abdominal wall has shown increase in size compared to 02/10/2022. The area rosalina ures 2.2 x 3.6 cm. This compares to 1.8 x 2.7 cm. There also some nodularity particularly superiorl y along the intra-abdominal surface. PELVIS: Bladder: Symmetric distention, no gross wall thickening. Reproductive Organs: Status post hysterectomy. Lymph Nodes: Within normal limits. Bones: Within normal limits. No aggressive osseous lesions. IMPRESSION: 1. Stable 4 mm left upper lobe pulmonary nodule. No new pulmonary nodules are seen. 2. Slight increase in size of the 1.2 cm spiculated lesion in the right upper quadrant adjacent to a small bowel loop. Metastatic disease cannot be excluded. 3. Increase thickening along the lower right anterior abdominal wall since 02/10/2022. These last 2 ar eas should be further evaluated. Metastatic disease cannot be excluded. PET/CT scan may be of use f or further evaluation. RADIATION DOSE DELIVERED: 1,998.16mGy.cm Total DLP DATA REPOSITORY: All CT scans at this facility are submitted to the National Radiology Data Registry (NRDR) Dose Index Registry (DIR) with the [employer] (ACR). RADIATION OPTIMIZATION: All CT scans at this facility use at least one of these dose optimization te chniques: automated exposure control; mA and/or kV adjustment per patient size (includes targeted exa ms where dose is matched to clinical indication); or iterative reconstruction.
[2022-06-29] MEDS: Omnipaque 350 MG/ML 500 ML BTL-Imaging package 100 ML IJ (11:15)
== END 2022-06-29 02:01 ==
PROVIDERS: Visit Provider Internal Medicine Hematology & Oncology
DX: C17.9 Malignant neoplasm of small intestine, unspecified (principal); Z12.89 Encounter for screening for malignant neoplasm of other sites; R91.8 Other nonspecific abnormal finding of lung field; K86.89 Other specified diseases of pancreas; K80.20 Calculus of gallbladder without cholecystitis without obstruction; Z90.710 Acquired absence of both cervix and uterus; Z93.3 Colostomy status
CPT/HCPCS: 74177; 71260

== ENCOUNTER 2022-06-29 01:55 | Outpatient (RCR) | payer OTHER, SELFPAY ==
[2022-06-29] MEDS: Heparin 500 UNITS/5 ML SYRINGE IV (08:24)
[2022-06-29] MEDS: Normal Saline Flush 10 ML SYR IVP (08:24)
[2022-06-29 08:41] LABS: Abs Immature Grans 0.02 10^3/uL (0.0-0.06); Absolute Basophil Count 0.05 10^3/uL (0.0-0.2); Absolute Lymphocyte Count 1.71 10^3/uL (1.2-3.4); Absolute Monocyte Count 0.77 10^3/uL (0.1-0.8); Absolute Neutrophil Count 3.03 10^3/uL (1.2-6.7); Basophils % 0.9; Eosinophils % 3.5; HCT 40.9 % (36.0-46.0); HGB 13.7 g/dL (11.2-15.7); Immature Grans % 0.3; Lymphocytes % 29.6; MCH 32.3 pg (27.0-33.0); MCHC 33.5 % (32.0-36.0); MCV 97 fL (80-95); MPV 9.7 fL (8.0-11.0); Monocytes % 13.3; Neutrophils % 52.4; Platelet Count 244 10^3/uL (130-400); RBC 4.24 10^6/uL (3.93-5.22); RDW 13.5 % (11.7-14.6); RDW-SD 47.9 fL; WBC 5.78 10^3/uL (4.4-10.8)
[2022-06-29 09:10] LABS: ALT 43 U/L (14-59); AST 32 U/L (15-37); Albumin 3.3 g/dL (3.4-5.0); Alkaline Phosphatase 103 U/L (46-116); Anion Gap 8.4 mmol/L (3-11); BUN 14 mg/dL (7-18); Bilirubin, Total 0.6 mg/dL (0.2-1.0); CO2 27.6 mmol/L (21.0-32.0); CREATININE 0.8 mg/dL (0.55-1.02); Calcium 9.4 mg/dL (8.5-10.1); Chloride 107 mmol/L (98-107); Glucose 95 mg/dL (74-106); Potassium 4.3 mmol/L (3.5-5.1); Sodium 143 mmol/L (136-145); Total Protein 7.2 g/dL (6.4-8.2)
[2022-06-29 18:42] LABS: CEA 7.8 ng/mL (See Note)
== END 2022-07-02 23:59 | disposition home or self-care (01) ==
LOC: INF 01:55
PROVIDERS: Visit Provider Internal Medicine Hematology & Oncology
DX: C17.9 Malignant neoplasm of small intestine, unspecified (principal); Z45.2 Encounter for adjustment and management of vascular access device
CPT/HCPCS: 36591; 80053; 82378; 85025

== ENCOUNTER 2022-10-08 08:15 | Outpatient (RCR) | payer MEDICARE, SELFPAY ==
[2022-10-08] MEDS: Heparin 500 UNITS/5 ML SYRINGE (12:39)
[2022-10-08] MEDS: Normal Saline Flush 10 ML SYR IVP (12:39)
[2022-10-08 13:32] LABS: Abs Immature Grans 0.01 10^3/uL (0.0-0.06); Absolute Basophil Count 0.06 10^3/uL (0.0-0.2); Absolute Eosinophil Count 0.14 10^3/uL (0.0-0.7); Absolute Lymphocyte Count 2.07 10^3/uL (1.2-3.4); Absolute Monocyte Count 0.78 10^3/uL (0.1-0.8); Basophils % 0.9; Eosinophils % 2.1; HCT 40.5 % (36.0-46.0); HGB 13.2 g/dL (11.2-15.7); Immature Grans % 0.2; Lymphocytes % 31.1; MCH 31.2 pg (27.0-33.0); MCHC 32.6 % (32.0-36.0); MCV 96 fL (80-95); MPV 9.7 fL (8.0-11.0); Monocytes % 11.7; Platelet Count 211 10^3/uL (130-400); RBC 4.23 10^6/uL (3.93-5.22); RDW 13.2 % (11.7-14.6); RDW-SD 46.9 fL; WBC 6.66 10^3/uL (4.4-10.8)
[2022-10-08 13:48] LABS: ALT 36 U/L (14-59); AST 36 U/L (15-37); Albumin 3.2 g/dL (3.4-5.0); Alkaline Phosphatase 90 U/L (46-116); Anion Gap 7.9 mmol/L (3-11); BUN 14 mg/dL (7-18); Bilirubin, Total 0.7 mg/dL (0.2-1.0); CO2 28.1 mmol/L (21.0-32.0); Calcium 9.1 mg/dL (8.5-10.1); Chloride 105 mmol/L (98-107); Estimated GFR 56.95 (mL/min/1.73m2); Glucose 106 mg/dL (74-106); Potassium 3.9 mmol/L (3.5-5.1); Sodium 141 mmol/L (136-145); Total Protein 7.2 g/dL (6.4-8.2)
[2022-10-08 22:45] LABS: CEA 14.1 ng/mL (See Note)
== END 2022-11-01 23:59 | disposition home or self-care (01) ==
LOC: INF 08:15
PROVIDERS: Visit Provider Internal Medicine Hematology & Oncology
DX: C17.9 Malignant neoplasm of small intestine, unspecified (principal); Z45.2 Encounter for adjustment and management of vascular access device
CPT/HCPCS: 36591; 80053; 82378; 85025

== ENCOUNTER 2022-11-11 02:32 | Outpatient (RCR) | payer MEDICARE, SELFPAY ==
[2022-11-11] MEDS: Normal Saline Flush 10 ML SYR IVP (12:55)
[2022-11-11] MEDS: Heparin 500 UNITS/5 ML SYRINGE IV (12:55)
[2022-11-11 13:17] LABS: HCT 38.2 % (36.0-46.0); HGB 12.9 g/dL (11.2-15.7); MCHC 33.8 % (32.0-36.0); MCV 95 fL (80-95); MPV 9.5 fL (8.0-11.0); Platelet Count 208 10^3/uL (130-400); RBC 4.03 10^6/uL (3.93-5.22); RDW 13.1 % (11.7-14.6); RDW-SD 45.8 fL; WBC 5.39 10^3/uL (4.4-10.8)
[2022-11-11 13:18] LABS: Absolute Basophil Count 0.03 10^3/uL (0.0-0.2); Absolute Eosinophil Count 0.16 10^3/uL (0.0-0.7); Absolute Lymphocyte Count 1.27 10^3/uL (1.2-3.4); Absolute Neutrophil Count 3.21 10^3/uL (1.2-6.7); Basophils % 0.6; Diff Comment Diff Reviewed; Immature Grans % 0.2; Lymphocytes % 23.6; Neutrophils % 59.6; RBC Morphology Normal
[2022-11-11 13:32] LABS: Albumin 3.1 g/dL (3.4-5.0); Alkaline Phosphatase 82 U/L (46-116); BUN 12 mg/dL (7-18); Bilirubin, Total 0.6 mg/dL (0.2-1.0); CREATININE 0.8 mg/dL (0.55-1.02); Calcium 9.2 mg/dL (8.5-10.1); Chloride 105 mmol/L (98-107); Estimated GFR 74.44 (mL/min/1.73m2); Glucose 90 mg/dL (74-106); Potassium 3.7 mmol/L (3.5-5.1); Sodium 141 mmol/L (136-145)
[2022-11-11 13:33] LABS: ALT 28 U/L (14-59); AST 26 U/L (15-37)
[2022-11-11 22:56] LABS: CEA 14.5 ng/mL (See Note)
== END 2022-12-02 23:59 | disposition home or self-care (01) ==
LOC: INF 02:32
PROVIDERS: Visit Provider Internal Medicine Hematology & Oncology
DX: C17.9 Malignant neoplasm of small intestine, unspecified (principal); Z45.2 Encounter for adjustment and management of vascular access device
CPT/HCPCS: 36591; 80053; 82378; 85025

== ENCOUNTER 2022-12-10 01:38 | Outpatient (RCR) | payer MEDICARE, SELFPAY ==
[2022-12-10] MEDS: Normal Saline Flush 10 ML SYR IVP (10:23)
[2022-12-10 10:31] LABS: Abs Immature Grans 0.02 10^3/uL (0.0-0.06); Absolute Basophil Count 0.05 10^3/uL (0.0-0.2); Absolute Eosinophil Count 0.26 10^3/uL (0.0-0.7); Absolute Lymphocyte Count 1.29 10^3/uL (1.2-3.4); Absolute Monocyte Count 0.69 10^3/uL (0.1-0.8); Absolute Neutrophil Count 3.69 10^3/uL (1.2-6.7); Basophils % 0.8; Eosinophils % 4.3; HCT 38.5 % (36.0-46.0); HGB 12.7 g/dL (11.2-15.7); Immature Grans % 0.3; Lymphocytes % 21.5; MCH 31.8 pg (27.0-33.0); MCV 96 fL (80-95); MPV 9.3 fL (8.0-11.0); Monocytes % 11.5; Neutrophils % 61.6; Platelet Count 225 10^3/uL (130-400); RDW 13.3 % (11.7-14.6); RDW-SD 47.6 fL
[2022-12-10 10:45] LABS: Alkaline Phosphatase 79 U/L (46-116); BUN 13 mg/dL (7-18); Bilirubin, Total 0.4 mg/dL (0.2-1.0); CREATININE 0.9 mg/dL (0.55-1.02); Calcium 8.9 mg/dL (8.5-10.1); Estimated GFR 64.63 (mL/min/1.73m2); Glucose 127 mg/dL (74-106); Sodium 139 mmol/L (136-145); Total Protein 7.2 g/dL (6.4-8.2)
[2022-12-10 10:46] LABS: ALT 25 U/L (14-59); AST 25 U/L (15-37); Anion Gap 6.7 mmol/L (3-11); CO2 28.3 mmol/L (21.0-32.0); Chloride 104 mmol/L (98-107); Potassium 3.8 mmol/L (3.5-5.1)
[2022-12-10 18:26] LABS: CEA 17.6 ng/mL (See Note)
== END 2023-01-01 23:59 | disposition home or self-care (01) ==
LOC: INF 01:38
PROVIDERS: Visit Provider Internal Medicine Hematology & Oncology
DX: C17.9 Malignant neoplasm of small intestine, unspecified (principal); Z45.2 Encounter for adjustment and management of vascular access device
CPT/HCPCS: 36591; 80053; 82378; 85025